=== PATIENT | male | born 1955 | race Caucasian/White ===

== ENCOUNTER 2019-12-13 12:58 | Outpatient (CLI) | payer BC, SELFPAY ==
--- NOTE | ~2019-12-13 | US_ITS ---
EXAMINATION: US abdomen complete DATE: 12/13/2019 13:49 INDICATION: Thrombocytopenia. Hepatitis C. TECHNIQUE: Multiple grayscale and Doppler ultrasound images of the abdomen were obtained. COMPARISON: Ultrasound abdomen 03/13/2015, CT abdomen and pelvis 02/01/2014 FINDINGS: Abdominal aorta is normal in caliber. The visualized portions of the head and body of the p ancreas are normal. The liver demonstrates surface nodularity, consistent with cirrhosis. The gallbla dder is distended, likely secondary to fasting. No gallstones. Gallbladder wall thickening is likely secondary to chronic liver disease. There was no sonographic Albright sign. The common duct is normal a nd measures 6 mm. There is normal flow in main portal vein. The kidneys are normal in size. There is moderate splenomegaly measuring 15.4 cm. IMPRESSION: 1. Cirrhosis of the liver. 2. Moderate splenomegaly, consistent with portal venous hypertension. Reviewed, dictated and finalized at location A.
== END 2019-12-13 12:59 | disposition home or self-care (01) ==
PROVIDERS: PCP Emergency Medicine; Visit Provider Internal Medicine
DX: D69.6 Thrombocytopenia, unspecified (principal); B18.2 Chronic viral hepatitis C; K74.60 Unspecified cirrhosis of liver; R16.1 Splenomegaly, not elsewhere classified
CPT/HCPCS: 76700

== ENCOUNTER 2020-07-14 10:31 | Outpatient (CLI) | payer BC, SELFPAY ==
--- NOTE | ~2020-07-14 | XR_ITS ---
EXAMINATION: XR bone survey comp/metastic EXAM DATE: 07/14/2020 11:36 INDICATION: Hep C w/ coma, chronic; thrombocytopenia, monoclonal gammopathy. TECHNIQUE: Frontal and lateral projections of following regions obtained; right humerus, left humeru s, right forearm, left forearm, right femur, left femur, right tibia, left tibia, lumbar spine, thora cic spine, cervical spine. Lateral projection skull. Frontal chest x-ray. FINDINGS: No evidence of significant sinus opacity or calvarial lesions. There is moderate cervical disc disease and advanced facet arthropathy. No confluent consolidation, pneumothorax or pleural effu leobardo suspected. Cardiomediastinal silhouette is normal. Paraspinal soft tissue is unremarkable. There is moderate symmetric bilateral hip primary osteoarthritis. In the left tibial metaphysis there is approximately 2 cm region with small calcifications, appearanc e is most consistent with an enchondroma. The arms are unremarkable. Pelvis unremarkable. IMPRESSION: Left distal tibial metaphyseal lesion most likely an enchondroma. Consider 3-6 month foll ow-up left tibia exam. Reviewed, dictated and finalized at location A. INSTRUCTOR IMPRESSION: Left distal tibial metaphyseal lesion most likely an enchondroma. C onsider 3-6 month follow-up left tibia exam.
== END 2020-07-14 10:32 | disposition home or self-care (01) ==
PROVIDERS: PCP Emergency Medicine; Visit Provider Internal Medicine
DX: B18.2 Chronic viral hepatitis C (principal); D69.6 Thrombocytopenia, unspecified; D47.2 Monoclonal gammopathy
CPT/HCPCS: 77075

== ENCOUNTER 2020-07-21 13:40 | Outpatient (CLI) | payer BC, SELFPAY | END 2020-07-21 13:41 | disposition home or self-care (01) | PROVIDERS: PCP Emergency Medicine; Visit Provider Emergency Medicine | DX: H93.13 Tinnitus, bilateral (principal) | CPT/HCPCS: 92557; 92567 ==

== ENCOUNTER 2021-03-02 16:36 | Emergency (ER) | payer BC, SELFPAY ==
[2021-03-02 16:40] VITALS: BP 135/79; PULSE 70; RESP 16; TEMP 37.3; O2SAT 100
[2021-03-02 16:45] VITALS: BP 135/79; PULSE 70; RESP 16; TEMP 37.3; O2SAT 100
--- NOTE | 2021-03-02 16:53 | ED.GENADULT ---
HPI - General Adult General Chief complaint: Eye Problems Stated complaint: eye irritation Source: patient Mode of arrival: ambulatory Limitations: no limitations History of Present Illness HPI narrative: Patient is a 65-year-old male who presents to the urgent care via POV for evaluation of a right eye problem that began yesterday. Additionally, he states he has something on his right upper eyelid that is causing discomfort to right eye. Unable to remove it himself via irrigation. Nothing improves symptoms. Blinking increases discomfort. Related Data Home Medications Medication Instructions Recorded Confirmed dextroamphetamine-amphetamine 03/02/21 omeprazole 03/02/21 tramadol mg 03/02/21 Allergies Allergy/AdvReac Type Severity Reaction Status Date / Time No Known Drug Allergies Allergy Unknown Unverified 02/01/14 19:06 Review of Systems Review of Systems: Pertinent negatives injury, fever, chills, sweats, malaise, change in appetite, poor p.o. intake, dizziness, headache, LOC, ear pain/drainage, rhinorrhea, sinus problems, lymphadenopathy, vision changes, dry eyes, eye drainage, eye pain, foreign body sensation, photophobia, chest pain, heart palpitations/murmurs, cough, and shortness of breath. [facility], [facility] Past Medical History Medical History (Updated 03/03/21 @ 00:00 by Background Daemon) ADHD Exam Narrative: GENERAL: Well-appearing, well-nourished, and in no acute distress. HEAD: Normocephalic, atraumatic. No sinus tenderness or facial swelling appreciated. EYES: PERRLA and EOMI. No evidence of swelling or drainage. Periorbital are is without erythema, swelling, pain, and warmth. Right upper eyelid with foreign body that appears to be debris. Left eyelid normal. Bilateral eyes are dry. Bilateral lashes are normal. Bilateral sclera are normal. Bilateral conjunctiva are normal. ENT: Nares clear, no rhinorrhea or epistaxis. Bilateral turbinates without erythema/ swelling. Mucous membranes moist and pink. Uvula is midline without erythema and swelling. No evidence of petechial rash, cobblestoning, lesions, ulcers, erythema, swelling, exudates, peritonsillar abscess, tenting, or drooling. Breath odor and voice normal. NECK: Supple. No Lymphadenopathy or nuchal rigidity appreciated. CHEST: Bilateral lung ashraf are clear to auscultation. No respiratory distress. No evidence of cough or pleuritic cp upon examination. HEART: Regular rate and rhythm. No murmur, gallop, or rub heard. EXTREMITIES: Normal range of motion. No edema. SKIN: Warm, dry, no rash. NEURO: No focal deficits. Alert and oriented x3. Course Vital Signs Vital signs: Vital Signs Temperature 99.1 F 03/02/21 16:40 Pulse Rate 70 03/02/21 16:40 Respiratory Rate 16 03/02/21 16:40 Blood Pressure 135/79 03/02/21 16:40 Pulse Oximetry 100 03/02/21 16:40 Temperature 99.1 F 03/02/21 16:45 Pulse Rate 70 03/02/21 16:45 Respiratory Rate 16 03/02/21 16:45 Blood Pressure 135/79 03/02/21 16:45 Pulse Oximetry 100 03/02/21 16:45 Due to an elevated blood pressure, I had a detailed discussion with the patient and/or guardian regarding the need for follow-up with their primary care provider within the next 3-4 days. Patient verbalized understanding and agreed. Procedures FB Removal Eye Foreign Body #1: Foreign Body Removal Date: 03/02/21 Foreign Body Removal Time: 18:50 Time Out performed: Yes Location: eye (R) Topical anesthetic used: proparacaine Foreign body: other (debris ) Evidence of corneal penetration: No Technique: irrigation Post-procedure medication: ophthalmic antibiotic Patient tolerated procedure: well and no complications Medical Decision Making Differential Diagnosis Differential Diagnosis: Corneal/conjunctival abrasion, globe rupture, conjunctivitis, hordeolum, corneal foreign body, iritis, scleritis, keratitis Medical Records
== END 2021-03-02 16:57 | disposition home or self-care (01) ==
PROVIDERS: Emergency Provider Nurse Practitioner Family; PCP Emergency Medicine
DX: T15.11XA Foreign body in conjunctival sac, right eye, initial encounter (principal); Z79.891 Long term (current) use of opiate analgesic; X58.XXXA Exposure to other specified factors, initial encounter
CPT/HCPCS: 99213; A9270; G0463

== ENCOUNTER 2023-10-05 14:32 | Outpatient (CLI) | payer MEDICARE, SELFPAY ==
--- NOTE | ~2023-10-05 | MR_ITS ---
EXAMINATION: MR orbits face neck wo/w con DATE: 10/05/2023 15:44 INDICATION: Malignant neoplasm of nasopharynx. TECHNIQUE: Magnetic resonance imaging (MRI) of the neck was performed without and with 15 mL MultiHan ce intravenous contrast. COMPARISON: None. FINDINGS: There is mucosal thickening in the paranasal sinuses. There is a left mastoid effusion. The re is a mass involving the left nasopharynx, left pterygopalatine fossa, left recreational director space, and p osterior wall of the oropharynx. There is left high internal jugular chain lymphadenopathy. A evan m ass measures 2.6 x 1.4 cm. Fat stranding in this area is likely secondary to radiation therapy. IMPRESSION: 1. Mass centered in the left pharynx, consistent with primary malignancy. 2. Left high internal jugular chain lymphadenopathy, consistent with metastatic disease. Reviewed, dictated and finalized at location A.
== END 2023-10-05 14:33 ==
LOC: MICIMG 14:34
PROVIDERS: PCP Emergency Medicine; Visit Provider Emergency Medicine
DX: C11.9 Malignant neoplasm of nasopharynx, unspecified (principal)
CPT/HCPCS: 70543; A9577

== ENCOUNTER 2023-10-06 21:38 | Emergency (ER) | payer OTHER, MEDICARE, SELFPAY ==
--- NOTE | ~2023-10-06 | CT_ITS ---
EXAMINATION: CT abdomen pelvis w con DATE: 10/07/2023 01:43 INDICATION: Hematemesis. TECHNIQUE: Computed tomography (CT) of the abdomen and pelvis was performed with 100 mL Omnipaque 350 intravenous contrast. Automated exposure control and iterative reconstruction technique were employe d. The dose-length product was 395.53 mGy-cm. COMPARISON: None. FINDINGS: The visualized portions of the lung bases demonstrate minimal atelectasis. No pleural effus ion. The heart size is normal. No pericardial effusion. Paraesophageal varices are noted. The liver d emonstrates surface nodularity, consistent with cirrhosis. There is a 17 mm hypodense mass with high density material in right hepatic lobe. The gallbladder is normal. There is severe splenomegaly. The pancreas and adrenal glands are normal. There are 2 stones in right kidney measuring up to 4 mm. Ther e is a 2 mm stone in left kidney. There is diverticulosis of the colon without evidence of diverticul itis. The appendix is normal. There is calcified atherosclerosis of the aorta and many of the other a rteries. There is a 3.0 x 1.9 cm cyst in right inguinal region, likely ascites in a hernia. There is mild lumbar spondylosis. IMPRESSION: 1. Cirrhosis of the liver with portal venous hypertension. 2. 17 mm liver mass with high-density material. This finding may be a neoplasm with changes of chemoe mbolization. Correlate with treatment history. Reviewed, dictated and finalized at location A. IMPRESSION: 1. Cirrhosis of the liver with portal venous hypertension. 2. 17 mm liver mass with high-density material. This finding may be a neoplasm with changes of chemoembolization. Correlate with treatment history.
[2023-10-06 21:44] VITALS: BP 108/94; PULSE 70; RESP 16; TEMP 36.6; O2SAT 100
[2023-10-06 22:46] VITALS: BP 144/75; PULSE 62; RESP 16; O2SAT 100
[2023-10-06 23:01] VITALS: BP 139/80; PULSE 68; RESP 20; O2SAT 100
[2023-10-06 23:03] VITALS: BP 139/80; PULSE 65; RESP 14; O2SAT 100
[2023-10-06 23:08] LABS: Basophils Percent Auto 0.3 % (0.2-1.2); Eosinophils Percent Auto 0.3 % (0-4.4); Hematocrit 37.6 % (42.0-52.0); Hemoglobin 12.9 g/dL (14.0-18.0); Immature Granulocyte Absolute 0.01 K/mm3 (0.00-0.031); Immature Granulocyte Percent A 0.1 % (0-0.5); Immature Platelet Fraction Pct 8.7 % (0.9-11.2); Lymphocytes Absolute Auto 0.24 K/mm3 (0.9-3.2); Lymphocytes Percent Auto 3.6 % (18.3-44.2); Mean Corpuscular HGB Conc 34.3 g/dl (32-36); Mean Corpuscular Hemoglobin 33.3 pg (26-34); Mean Corpuscular Volume 97.2 fl (80-100); Mean Platelet Volume 11.5 fl (7.4-10.4); Monocytes Absolute Auto 0.6 K/mm3 (0.1-0.6); Monocytes Percent Auto 9.5 % (2.6-8.5); Neutrophils Absolute Auto 5.8 K/mm3 (1.3-6.7); Neutrophils Percent Auto 86.2 % (45.5-73.1); Platelet Count Result 84 k/mm3 (150-375); Red Blood Count 3.87 M/mm3 (4.6-6.20); Red Cell Distribution Width 12.9 % (11.5-14.5)
[2023-10-06 23:14] LABS: Alanine Aminotransferase 24 U/L (6-50); Alkaline Phosphatase 125 U/L (38-126); Anion Gap 4 mmol/L (4-12); Aspartate Amino Transferase 31 U/L (17-59); Bilirubin,Total 1.6 mg/dL (0.2-1.3); Blood Urea Nitrogen 26 mg/dL (9-20); Calcium 9.4 mg/dL (8.4-10.2); Carbon Dioxide 30 mmol/L (22-30); Chloride 96 mmol/L (98-107); Estimated CRCL calculation 91 ml/min; Estimated Glomerular Filt Rate > 60; Glucose 116 mg/dL (65-110); Lipase 431 U/L (23-300); Potassium 5.1 mmol/L (3.4-5.0); Sodium 130 mmol/L (137-145)
[2023-10-06 23:31] LABS: Anisocytosis 1+; Large Platelets Present; Platelet Clumps Present; Platelet Estimate Decreased (Adequate); Schistocytes None Seen
[2023-10-06 23:32] LABS: White Blood Count 6.8 K/mm3 (4.5-10.0)
[2023-10-07 00:01] VITALS: BP 125/86; PULSE 60; RESP 14; O2SAT 98
--- NOTE | 2023-10-07 00:35 | ED.GENADULT ---
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 Patient says that he had a dark loose bowel movement yesterday. Then today he had 1 episode of dark vomit. patient has history of esophageal varices although his last endoscopy was over a year ago. Patient has no other symptoms at this time. Related Data Home Medications Medication Instructions Recorded Confirmed dextroamphetamine-amphetamine 20 03/02/21 mg tablet omeprazole 20 mg capsule,delayed 03/02/21 release tramadol 50 mg tablet mg 03/02/21 Allergies Allergy/AdvReac Type Severity Reaction Status Date / Time No Known Drug Allergies Allergy Unknown Unknown Verified 10/07/23 00:49 [facility] Past Medical History Medical History ADHD Exam Narrative: APPEARANCE: patient appears older than his stated age Head: atraumatic. EYES: EOMI, NOSE: Atraumatic NECK: Trachea midline RESPIRATORY: No increased rate of breathing Clear to auscultation CARDIOVASCULAR: RRR, is no peripheral edema ABDOMINAL: soft nontender no guarding rebound MUSCULOSKELETAl: No obvious deformities NEURO: Alert. Moving 4/4 extremities SKIN:: Warm, dry. Normal color PSYCHIATRIC: Normal affect Course Vital Signs Vital signs: Vital Signs Temperature 97.9 F 10/06/23 21:44 Pulse Rate 70 10/06/23 21:44 Respiratory Rate 16 10/06/23 21:44 Blood Pressure 108/94 H 10/06/23 21:44 Pulse Oximetry 100 10/06/23 21:44 Oxygen Delivery Room Air 10/06/23 21:44 Temperature 97.9 F 10/06/23 21:44 Pulse Rate 67 10/07/23 04:16 Respiratory Rate 13 10/07/23 04:16 Blood Pressure 139/82 10/07/23 04:16 Pulse Oximetry 100 10/07/23 04:16 Oxygen Delivery Room Air 10/06/23 21:44 Medical Decision Making [facility] Narrative Medical decision making narrative: -Course: 68-year-old male presenting after an episode of emesis at an episode of dark stools yesterday pain patient is currently asymptomatic. Laboratory studies were ordered and repeated in 4 hours. Hemoglobin had a 1 point drop but that is with a expected range after fluid resuscitation. No elevations in BUN which may indicate an upper GI bleed. hemoccult negative. Patient did cough up a small amount blood but I believe this is from his nasopharynx due to his radiation/nasopharyngeal cancer. On re-evaluation patient is resting comfortably and has not had any more vomiting. Vital signs are stable. He is going to [facility] this morning to get his next radiation treatment and has very close follow-up. [facility] for [facility]. 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 -Independent interpretation of studies: hemoglobin 12.9 -> 11.9 after 1 L of fluid Metabolic panel initially showed mild hypokalemia hyponatremia hypochloremia. This resolved after 1 L fluid and Lokelma. The rest the patient's laboratory studies within normal limits. No elevation in BUN that may indicate a GI bleed. CT showed no acute findings. -Interventions: 1 L normal saline, Lokelma -Shared decision making / Disposition: discharge Vital Signs Vital Signs: Vital Signs Temperature 97.9 F 10/06/23 21:44 Pulse Rate 70 10/06/23 21:44 Respiratory Rate 16 10/06/23 21:44 Blood Pressure 108/94 H 10/06/23 21:44 Pulse Oximetry 100 10/06/23 21:44 Oxygen D
[2023-10-07] MEDS: SODIUM ZIRCONIUM CYCLOSILICATE 10 GM POWD.PACK PO (00:44)
[2023-10-07] MEDS: SODIUM CHLORIDE 0.9% IV 1,000 ML 999 ML IV CONT (00:44)
[2023-10-07 00:58] LABS: Appearance Urine Clear (Clear); Bilirubin Urine Negative (Negative); Blood Urine Negative (Negative); Color Urine Yellow (Yellow); Glucose Urine UA Negative (Negative); Ketones Urine Negative (Negative); Leukocyte Esterase Ur Negative LEU/UL (Negative); Nitrate Urine Negative (Negative); Protein Urine Negative (Negative)
[2023-10-07 01:11] LABS: Add Urine Microscopic? NO
[2023-10-07 02:59] VITALS: BP 141/86; PULSE 81; RESP 17; O2SAT 98
[2023-10-07 03:16] VITALS: BP 127/70; PULSE 74; RESP 13; O2SAT 98
[2023-10-07 03:59] LABS: Basophils Percent Auto 0.2 % (0.2-1.2); Eosinophils Percent Auto 0.4 % (0-4.4); Hematocrit 34.4 % (42.0-52.0); Hemoglobin 11.9 g/dL (14.0-18.0); Immature Granulocyte Absolute 0.02 K/mm3 (0.00-0.031); Immature Granulocyte Percent A 0.4 % (0-0.5); Immature Platelet Fraction Pct 7.4 % (0.9-11.2); Lymphocytes Absolute Auto 0.43 K/mm3 (0.9-3.2); Lymphocytes Percent Auto 7.9 % (18.3-44.2); Mean Corpuscular HGB Conc 34.6 g/dl (32-36); Mean Corpuscular Hemoglobin 33.6 pg (26-34); Mean Corpuscular Volume 97.2 fl (80-100); Mean Platelet Volume 11.6 fl (7.4-10.4); Monocytes Absolute Auto 0.5 K/mm3 (0.1-0.6); Monocytes Percent Auto 9.6 % (2.6-8.5); Neutrophils Absolute Auto 4.4 K/mm3 (1.3-6.7); Neutrophils Percent Auto 81.5 % (45.5-73.1); Platelet Count Result 77 k/mm3 (150-375); Red Blood Count 3.54 M/mm3 (4.6-6.20); Red Cell Distribution Width 12.8 % (11.5-14.5); White Blood Count 5.4 K/mm3 (4.5-10.0)
[2023-10-07 04:07] LABS: Anion Gap 6 mmol/L (4-12); Blood Urea Nitrogen 25 mg/dL (9-20); Carbon Dioxide 23 mmol/L (22-30); Chloride 102 mmol/L (98-107); Estimated CRCL calculation 105 ml/min; Estimated Glomerular Filt Rate > 60; Glucose 111 mg/dL (65-110); Sodium 131 mmol/L (137-145)
[2023-10-07 04:16] VITALS: BP 139/82; PULSE 67; RESP 13; O2SAT 100
[2023-10-07 04:16] LABS: Large Platelets Present; Platelet Estimate Decreased (Adequate)
[2023-10-07 04:17] LABS: Anisocytosis 1+; Microcytosis 1+ (NORMAL); Schistocytes None Seen
[2023-10-07 04:55] VITALS: BP 140/94; PULSE 70; RESP 15; O2SAT 98
== END 2023-10-07 05:08 | disposition home or self-care (01) ==
PROVIDERS: Emergency Provider Emergency Medicine; PCP Emergency Medicine
DX: C11.9 Malignant neoplasm of nasopharynx, unspecified (principal); B19.10 Unspecified viral hepatitis B without hepatic coma; K74.60 Unspecified cirrhosis of liver; F90.9 Attention-deficit hyperactivity disorder, unspecified type
CPT/HCPCS: 36415; 74177; 80048; 80053; 81003; 83690; 85025; 85055; 86850; 86900; 86901; 96360; 99284; A9270; J7030; Q9967

== ENCOUNTER 2024-09-26 11:21 | Inpatient (IN) | payer MEDICARE, OTHER, SELFPAY ==
[2024-09-26] VITALS (24 sets, daily range): BP systolic 104–158; BP diastolic 52–95; PULSE 74–177; RESP 13–32; TEMP 36.3–36.9; O2SAT 95–100; BMI 22.4
--- NOTE | ~2024-09-26 | CT_ITS ---
EXAMINATION: CT chest abdomen pelvis w con DATE: 09/26/2024 13:56 CDT INDICATION: Upper GI bleed. Esophageal varices. TECHNIQUE: Computed tomography (CT) of the chest, abdomen, and pelvis was performed with 100 cc Omnip aque 350 intravenous contrast. The dose-length product was 322.73 mGy-cm. Automated exposure control and iterative reconstruction technique were employed. COMPARISON: CT dated 10/07/2023 FINDINGS: CHEST CT: Heart size normal. No thoracic lymphadenopathy. No significant pleural or pericardial effusion. No si gnificant vascular abnormality. There is a 9 mm right middle lobe pleural-based nodule. There are add itional reticulonodular densities in the right middle lobe and lingula which are smaller. There is a 1.4 cm left lower lobe pleural-based nodule. No endobronchial lesions. There is a 7 mm left. Fissural nodule, image 66. No pneumothorax. ABDOMEN/PELVIS CT: There is cirrhosis of the liver. The spleen, pancreas, adrenal glands are unremarkable. There is patc hy hypoperfusion of the kidneys, suspicious for pyelonephritis. Gallbladder is present. Nonobstructiv e bowel gas pattern. There is mild thickening of the proximal small bowel, suspicious for enteritis. No free air or free fluid. Colonic diverticulosis without evidence for diverticulitis. There is mild thoracic and lumbar spondylosis with scoliosis. There are small nonobstructing bilateral renal stones . IMPRESSION: 1. Multiple bilateral pulmonary nodules, largest in the left lower lobe measuring 1.4 cm, suspicious for metastatic disease. Correlate for history of malignancy. 2: Cirrhosis of the liver. 3: Patchy hypoperfusion of the kidneys, suspicious for pyelonephritis. 4: Mild thickening of the proximal spot bowel, suspicious for enteritis. 5: Nonobstructing bilateral nephrolithiasis. Reviewed, dictated and finalized at location A. IMPRESSION: 1. Multiple bilateral pulmonary nodules, largest in the left lower lobe measuri ng 1.4 cm, suspicious for metastatic disease. Correlate for history of malignan cy. 2: Cirrhosis of the liver. 3: Patchy hypoperfusion of the kidneys, suspicious for pyelonephritis. 4: Mild thickening of the proximal spot bowel, suspicious for enteritis. 5: Nonobstructing bilateral nephrolithiasis.
--- NOTE | ~2024-09-26 | US_ITS ---
EXAMINATION:US venous doppler UE RT INDICATION:Right upper extremity pain and swelling TECHNIQUE: Multiple grayscale, color flow and Doppler images of the right upper extremity deep venous systems were obtained and reviewed. COMPARISON:None FINDINGS: The right jugular, subclavian, axillary, brachial, basilic, cephalic, radial and ulnar vein s demonstrate normal respiratory variation, augmentation and compressibility. Color flow is also se en within the right jugular, subclavian, axillary, brachial, basilic, cephalic and radial veins. IMPRESSION: No upper extremity deep venous thrombosis. Reviewed, dictated and finalized at location A.
--- NOTE | 2024-09-26 11:39 | ED_ITS ---
HPI - General Adult General Chief complaint: GI Bleed Stated complaint: black tarry stools, coffee ground emesis Time Seen by Provider: 09/26/24 11:31 History of Present Illness HPI narrative: 69-year-old male with history of nasopharyngeal esophageal cancer presents emergency department for evaluation for abdominal pain, dark tarry stool and coffee-ground emesis. Patient states he began having dark tarry stools approximately 2 days ago. Patient did have onset of nausea vomiting today. Patient does have history of cirrhosis secondary to hepatitis. Patient has not drank alcohol in approximately 15 years. Patient was started on Keytruda recently and family states this is what has triggered his recent GI bleeds. Patient does follow-up at [facility] and did have a recent upper endoscopy approximately 2 weeks ago. Related Data Home Medications ?Medication ?Instructions ?Recorded ?Confirmed ?Last Taken ?Type dextroamphetamine-amphetamine 20 20 mg PO PRN 03/02/21 09/26/24 Unknown History mg tablet omeprazole 20 mg capsule,delayed 40 mg PO QID 03/02/21 09/26/24 09/21/24 09:00 History release 40 mg tramadol 50 mg tablet 50 mg PO PRN 03/02/21 09/26/24 Unknown History acetaminophen 325 mg tablet (Pain 650 mg PO Q6H PRN pain 09/26/24 09/26/24 09/24/24 10:00 History Reliever (acetaminophen)) 650 mg furosemide 20 mg tablet (Lasix) 20 mg PO DAILY 09/26/24 09/26/24 09/24/24 21:50 History 20 mg hydroxyzine HCl 10 mg tablet 10 mg PO TID PRN itching 09/26/24 09/26/24 09/24/24 21:50 History 10 mg loperamide 2 mg capsule 2 mg PO QID PRN loose stool 09/26/24 09/26/24 09/25/24 13:00 History (Anti-Diarrheal (loperamide)) ondansetron 8 mg disintegrating 8 mg PO TID 09/26/24 09/26/24 09/24/24 14:00 History tablet 8 mg pembrolizumab 25 mg/mL intravenous 200 mg IV ONCE 09/26/24 09/26/24 07/13/24 08:58 History solution (Keytruda) 200 mg prednisone 20 mg tablet 60 mg PO DAILY 09/26/24 09/26/24 09/22/24 08:00 History 10 mg propranolol 10 mg tablet 10 mg PO Q12H 09/26/24 09/26/24 09/24/24 08:00 History 10 mg Allergies Allergy/AdvReac Type Severity Reaction Status Date / Time No Known Drug Allergies Allergy Unknown Unknown Verified 09/26/24 11:51 Review of Systems 2 Review of Systems: All systems reviewed & are unremarkable except as noted in HPI and below PMFSH Past Medical History Medical History Anemia Hepatitis C Liver cancer s/p chemo Alcohol abuse, in remission Cessation 15 years ago as of 2024 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 Esophageal varices ADHD GI bleed Social History Social History Smoking status: Former smoker Alcohol intake: former Substance use: current Substance use type: former substance user and marijuana Other substance usage details: a little bit of everything out there Marijuana capsule, suppository, oil Do You Feel Safe in your Home?: Yes Lack of Transportation: No Lack of Food: Never True Current Housing: I Have Housing Concerned About Future Housing: No Difficulty Paying Gas/Electric Bills: No Difficulty Paying for Meds: No Currently Unemployed: No Education: Trade/Vocational Certificate Difficulty w/ Childcare or Family Care: No Spiritual care concerns: No Exam 2 Narrative: APPEARANCE: Ill appearing HEAD: normocephalic, atraumatic. EYES: PERRLA/EOMI, conjunctivae clear. NOSE: Normal no drainage EARS:TMS clear with good light reflex. THROAT: Pharynx clear, no exudate. NECK: Supple. No adenopathy, no masses. RESPIRATORY: Airway patent, respirations nonlabored. Clear to auscultation bilaterally, no rales, rhonchi, wheezing. CARDIOVASCULAR: Regular rate and rhythm without murmurs rubs or gallops. ABDOMINAL: Soft, nontender, nondistended, normal bowel sounds MUSCULOSKELETAL: Moves all extremities. Strength/ROM intact, No edema, No calf tenderness. NEURO: Alert. Cranial nerves II through XII intact. Good gait. Good coordination SKIN: Warm, dry. Normal Color Course Vital Signs Vital signs: Vital Signs Temperature 97.8 F 09/26/24 11:24 Pulse Rate 150 H 09/26/24 11:24 Respiratory Rate 14 09/26/24 11:24 Blood Pressure 144/95 H 09/26/24 11:24 Pulse Oximetry 96 09/26/24 11:24 Oxygen Delivery Room Air 09/26/24 11:24 Temperature 98.2 F 09/26/24 16:25 Pulse Rate 90 09/26/24 16: Respiratory Rate 20 09/26/24 16:25 Blood Pressure 115/70 09/26/24 16:25 Pulse Oximetry 99 09/26/24 16:25 Oxygen Delivery Room Air 09/26/24 11:24 Oxygen Flow Rate 2 09/26/24 13:34 Medical Decision Making MDM Narrative Medical decision making narrative: 69-year-old male presents emergency department for evaluation for upper GI bleed and tachycardia. Patient arrived in AFib with RVR patient has no prior history of atrial fibrillation. Patient was started on 2 L of IV fluids and given a Cardizem bolus and started on Cardizem infusion. Patient was still having persistent tachycardia and agitation. Patient was treated with a dose of 5 mg of IV Lopressor and did convert back to normal sinus rhythm. Due to patient having persistent nausea and agitation he was also treated with 4 mg of IV Zofran, 10 mg IV Reglan, 4 mg of IV morphine and 1 mg of IV Ativan. Ultimately patient did become more rested. states the patient does have significant history of anxiety. Prior to going to the floor patient was back in normal sinus rhythm but without tachycardia. Patient was in no distress and patient was normotensive. Patient did have a hemoglobin of 7.3 and was treated with 2 units of packed red blood cells. These were started and completed prior to the patient being admitted to the floor. Patient was also started on octreotide bolus and infusion, along with famotidine and Protonix. Gi was consulted and patient was admitted to the IMU. Differential Diagnosis Differential Diagnosis: Upper GI bleed, lower GI bleed, atrial fibrillation, dehydration, anxiety, colitis, diverticulitis, enteritis Vital Signs Vital Signs: Vital Signs Temperature 97.8 F 09/26/24 11:24 Pulse Rate 150 H 09/26/24 11:24 Respiratory Rate 14 09/26/24 11:24 Blood Pressure 144/95 H 09/26/24 11:24 Pulse Oximetry 96 09/26/24 11:24 Oxygen Delivery Room Air 09/26/24 11:24 Temperature 98.2 F 09/26/24 16:25 Pulse Rate 90 09/26/24 16:25 Respiratory Rate 20 09/26/24 16:25 Blood Pressure 115/70 09/26/24 16:25 Pulse Oximetry 99 09/26/24 16:25 Oxygen Delivery Room Air 09/26/24 11:24 Oxygen Flow Rate 2 09/26/24 13:34 Lab Data Lab results reviewed: Yes I reviewed the patient's lab results. 09/26/24 11:39 09/26/24 11:39 Labs: Lab Results 09/26/24 09/26/24 09/26/24 Range/Units 11:38 11:39 11:41 WBC 15.3 H (4.5-10.0) K/mm3 RBC 2.48 L (4.6-6.20) M/mm3 Hgb 7.3 L D (14.0-18.0) g/dL Hct 23.0 L (42.0-52.0) % MCV 92.7 (80-100) fl MCH 29.4 (26-34) pg MCHC 31.7 L (32-36) g/dl RDW 15.5 H (11.5-14.5) % Plt Count 241 D (150-375) k/mm3 MPV 11.1 H (7.4-10.4) fl Immature Gran % (Auto) 1.2 H (0-0.5) % Neut % (Auto) 84.4 H (45.5-73.1) % Lymph % (Auto) 7.5 L (18.3-44.2) % [place] % (Auto) 6.8 (2.6-8.5) % Eos % (Auto) 0.0 (0-4.4) % Baso % (Auto) 0.1 L (0.2-1.2) % Lymph # (Auto) 1.14 (0.9-3.2) K/mm3 [place] # (Auto) 1.0 H (0.1-0.6) K/mm3 Eos # (Auto) 0.0 (0-0.3) K/mm3 Baso # (Auto) 0.0 (0.0-0.1) K/mm3 Abs Immat Gran (auto) 0.19 H (0.00-0.031) K/mm3 Absolute Neuts (auto) 12.9 H (1.3-6.7) K/mm3 Absolute Nucleated RBC 0.000 (0.0-0.012) K/mm3 Nucleated RBC % 0.0 (0.0-0.2) % PT 17.2 H (11.1-14.7) Seconds INR 1.4 APTT 24.4 (22.3-36.8) Seconds Methemoglobin (0-1.5) %THb Sodium 132 L (137-145) mmol/L Potassium 4.4 (3.4-5.0) mmol/L Chloride 98 (98-107) mmol/L Carbon Dioxide 12 L (22-30) mmol/L Anion Gap 22 H (4-12) mmol/L BUN 64 H D (9-20) mg/dL Creatinine 0.97 (0.7-1.3) mg/dL Estim Creat Clear Calc 57 ml/min Estimated GFR > 60 (59 - ) Glucose 175 H (65-110) mg/dL Lactic Acid (0.7-2.0) mmol/L Calcium 9.2 (8.4-10.2) mg/dL Magnesium 1.8 (1.6-2.3) mg/dL Total Bilirubin 0.8 (0.2-1.3) mg/dL AST 34 (17-59) U/L ALT 36 (6-50) U/L Alkaline Phosphatase 73 (38-126) U/L Total Protein 6.0 L (6.3-8.2) g/dL Albumin 3.6 (3.5-5.1) g/dL Blood Type Antibody Screen Crossmatch 09/26/24 09/26/24 Range/Units 11:48 11:53 WBC (4.5-10.0) K/mm3 RBC (4.6-6.20) M/mm3 Hgb (14.0-18.0) g/dL Hct (42.0-52.0) % MCV (80-100) fl MCH (26-34) pg MCHC (32-36) g/dl RDW (11.5-14.5) % Plt Count (150-375) k/mm3 MPV (7.4-10.4) fl Immature Gran % (Auto) (0-0.5) % Neut % (Auto) (45.5-73.1) % Lymph % (Auto) (18.3-44.2) % [place] % (Auto) (2.6-8.5) % Eos % (Auto) (0-4.4) % Baso % (Auto) (0.2-1.2) % Lymph # (Auto) (0.9-3.2) K/mm3 [place] # (Auto) (0.1-0.6) K/mm3 Eos # (Auto) (0-0.3) K/mm3 Baso # (Auto) (0.0-0.1) K/mm3 Abs Immat Gran (auto) (0.00-0.031) K/mm3 Absolute Neuts (auto) (1.3-6.7) K/mm3 Absolute Nucleated RBC (0.0-0.012) K/mm3 Nucleated RBC % (0.0-0.2) % PT (11.1-14.7) Seconds INR APTT (22.3-36.8) Seconds Methemoglobin 0.1 (0-1.5) %THb Sodium (137-145) mmol/L Potassium (3.4-5.0) mmol/L Chloride (98-107) mmol/L Carbon Dioxide (22-30) mmol/L Anion Gap (4-12) mmol/L BUN (9-20) mg/dL Creatinine (0.7-1.3) mg/dL Estim Creat Clear Calc ml/min Estimated GFR (59 - ) Glucose (65-110) mg/dL Lactic Acid 11.7 H* (0.7-2.0) mmol/L Calcium (8.4-10.2) mg/dL Magnesium (1.6-2.3) mg/dL Total Bilirubin (0.2-1.3) mg/dL AST (17-59) U/L ALT (6-50) U/L Alkaline Phosphatase (38-126) U/L Total Protein (6.3-8.2) g/dL Albumin (3.5-5.1) g/dL Blood Type O Positive Antibody Screen Negative Crossmatch See Detail ABG Data ABG results: 09/26/24 11:48 Puncture Site Right radial ABG pH 7.522 H* ABG pCO2 17.8 L* ABG pO2 108.9 H ABG PO2/FiO2 Ratio 5.19 ABG HCO3 14.3 L ABG O2 Saturation 98.5 ABG O2 Content 10.7 L ABG Base Excess -7.4 A-a Gradient 19.5 Oxyhemoglobin 96.9 Carboxyhemoglobin 1.3 Reduced Hemoglobin 1.7 Total Hemoglobin 7.7 L* O2 Delivery Device Room air O2 Liters/Min Not Reportable FiO2 21 Imaging Data Radiologist's impression: Impressions Chest/Abdomen/Pelvis CT 09/26/24 13:56 IMPRESSION: 1. Multiple bilateral pulmonary nodules, largest in the left lower lobe measuring 1.4 cm, suspicious for metastatic disease. Correlate for history of malignancy. 2: Cirrhosis of the liver. 3: Patchy hypoperfusion of the kidneys, suspicious for pyelonephritis. 4: Mild thickening of the proximal spot bowel, suspicious for enteritis. 5: Nonobstructing bilateral nephrolithiasis. Critical Care Time Critical Care Time Critical Care Time: Yes Total Critical Care Time: 45 Discharge Plan Discharge Clinical Impression: Anemia Qualifiers: Anemia type: unspecified type Qualified Code(s): D64.9 - Anemia, unspecified GI bleed Qualifiers: GI bleed type/associated pathology: unspecified gastrointestinal hemorrhage type Qualified Code(s): K92.2 - Gastrointestinal hemorrhage, unspecified Cirrhosis Qualifiers: Hepatic cirrhosis type: unspecified hepatic cirrhosis Ascites presence: without ascites Qualified Code(s): K74.60 - Unspecified cirrhosis of liver Patient Disposition: Still a Patient Condition: Serious
[2024-09-26] MEDS: dilTIAZem HCl INJ 25 MG/5 ML VIAL 10 MG IV PUSH ×2 (11:53→12:23)
[2024-09-26] MEDS: SODIUM CHLORIDE 0.9% IV 1,000 ML 999 ML IV CONT (11:53)
[2024-09-26 11:56] LABS: Basophils Percent Auto 0.1 % (0.2-1.2); Hemoglobin 7.3 g/dL (14.0-18.0); Immature Granulocyte Absolute 0.19 K/mm3 (0.00-0.031); Immature Granulocyte Percent A 1.2 % (0-0.5); Lymphocytes Absolute Auto 1.14 K/mm3 (0.9-3.2); Lymphocytes Percent Auto 7.5 % (18.3-44.2); Mean Corpuscular HGB Conc 31.7 g/dl (32-36); Mean Corpuscular Hemoglobin 29.4 pg (26-34); Mean Corpuscular Volume 92.7 fl (80-100); Mean Platelet Volume 11.1 fl (7.4-10.4); Monocytes Percent Auto 6.8 % (2.6-8.5); Neutrophils Absolute Auto 12.9 K/mm3 (1.3-6.7); Neutrophils Percent Auto 84.4 % (45.5-73.1); Platelet Count Result 241 k/mm3 (150-375); Red Blood Count 2.48 M/mm3 (4.6-6.20); Red Cell Distribution Width 15.5 % (11.5-14.5); White Blood Count 15.3 K/mm3 (4.5-10.0)
[2024-09-26] MEDS: OCTREOTIDE ACETATE 50 MCG/ML VIAL IV PUSH (11:56)
[2024-09-26 12:02] LABS: Alveolar/Arterial O2 Gradient 19.5 mmHg; Base Excess ABG -7.4 mEq/l (+/-2.0); Carboxyhemoglobin 1.3 % THb (0-2.0); Fractional Inspired Oxygen 21 %; HCO3 ABG 14.3 mEq/l (22.0-26.0); Methemoglobin ABG 0.1 %THb (0-1.5); Oxygen Content ABG 10.7 %vol (16.0-22.0); Oxygen Saturation ABG 98.5 % (95.0-100.0); Oxyhemoglobin 96.9 % THb (90.0-100.0); PO2 ABG 108.9 mmHg (80.0-100.0); PO2 FiO2 Ratio Arterial Blood 5.19 %; Reduced Hemoglobin 1.7 %THb (0-5.0)
[2024-09-26 12:04] LABS: Albumin Level 3.6 g/dL (3.5-5.1); Alkaline Phosphatase 73 U/L (38-126); Anion Gap 22 mmol/L (4-12); Aspartate Amino Transferase 34 U/L (17-59); Bilirubin,Total 0.8 mg/dL (0.2-1.3); Blood Urea Nitrogen 64 mg/dL (9-20); Calcium 9.2 mg/dL (8.4-10.2); Carbon Dioxide 12 mmol/L (22-30); Chloride 98 mmol/L (98-107); Estimated CRCL calculation 57 ml/min; Estimated Glomerular Filt Rate > 60; Glucose 175 mg/dL (65-110); Potassium 4.4 mmol/L (3.4-5.0); Sodium 132 mmol/L (137-145)
[2024-09-26] MEDS: PANTOPRAZOLE SODIUM IV 40 MG VIAL 80 MG IV PUSH (12:04)
[2024-09-26] MEDS: OCTREOTIDE ACETATE 500 MCG in SODIUM CHLORIDE 0.9% IV 99 ML 10 MCG IV CONT ×2 (12:04→21:35)
[2024-09-26] MEDS: FAMOTIDINE 20 MG/2 ML VIAL IV PUSH (12:04)
[2024-09-26 12:05] LABS: PCO2 ABG 17.8 mmHg (35.0-45.0); pH ABG 7.522 (7.350-7.450)
[2024-09-26 12:06] LABS: Device ROOM AIR; Modified Allen's Test Pass; Site Drawn RIGHT RADIAL; Total Hemoglobin 7.7 g/dL (12.0-18.0)
[2024-09-26 12:22] LABS: INR 1.4; Partial Thromboplastin Time 24.4 Seconds (22.3-36.8); Prothrombin Time 17.2 Seconds (11.1-14.7)
[2024-09-26] MEDS: dilTIAZem 100 MG/100 ML 100 MG/100 ML BAG IV CONT (12:24)
[2024-09-26 12:31] LABS: Lactic Acid Reflex 11.7 mmol/L (0.7-2.0)
[2024-09-26 12:37] LABS: Alanine Aminotransferase 36 U/L (6-50)
--- NOTE | 2024-09-26 12:46 | PC.NURSE ---
Pt to CT scan via stretcher at this time
--- OUTSIDE RECORDS SUMMARY | 2024-09-26 13:06 | XMS_ITS | Clinical Summary ---
Author Organization [facility] [place] Address [address] [place] [address] Care Team Providers Care Laserist Name Role Phone Derrell Barrow MD Primary Care Provider [phone] Source Comments [facility] [place],non-owned Affiliates and Associated Physician Practices is amultiple site organization consisting of ambulatory clinics and hospital sitesin [place], [place], [place] and [place]. This disclosure is being madepursuant to the Care Everywhere program and may not contain all information available regarding this patient. Last updated 18.[facility] [place] Allergies No known active allergies Medications * Be aware that medications may not be up to date on this document. Alwaysverify current medications with the patient. Medication Sig Dispensed Refills Start Date End Date Status omeprazole (PRILOSEC) 20 MG capsule TK 1 C PO QD AC 12/04/2019 Active traMADol (ULTRAM) 50 MG tablet TK 1 T PO BID PRN 11/07/2019 Active Milk Thistle 1000 MG CAPS Active PAPAYA PO Active amphetamine-dextroamphe tamine (ADDERALL) 30 MG tablet Take 1 tablet by mouth 04/18/2020 Active TURMERIC PO Take by mouth once daily Active Naproxen Sodium (ALEVE) 220 MG Take by mouth once daily as needed Active LECITHIN CONCENTRATE PO A ctive Active Problems Problem Noted Date Diagnosed Date Cirrhosis of liver without ascites 07/25/2020 Chronic hepatitis C without hepatic coma 020 Overview (01/28/2020): Hepatitis B core antibody is non reactive Genotype 1a fibroscan 01/28/2020 Date of Exam: 01/28/2020 LSM, kPa: 34.1 CAP 207 Generalized anxiety disorder 11/05/2014 Chronic pain 10/07/2014 Essential hypertension 03/25/2014 Gastroesophageal reflux disease 02/15/2014 Abdominal pain 02/04/2014 Blood in urine 02/04/2014 Contracture of tendon sheath 01/08/2014 Child attention deficit disorder 12/06/2013 Multiple joint pain 12/06/2013 Resolved Problems Problem Noted Date Diagnosed Date Resolved Date Acute sinusitis 01/08/2014 01/15/2020 Family History Medical History Relation Name Comments CVA Father Cancer - Breast Mother Relation Name Status Comments Father Mother Social History Tobacco Use Types Packs/Day Years Used Date Smoking Tobacco: Never Smokeless Tobacco: Never Alcohol Use Standard Drinks/Week Comments Not Currently 0 (1 standard drink = 0.6 oz pur e alcohol) on rare occasion Sex and Gender Information Value Date Recorded Sex Assigned at Not on file Gender Identity Not on file Sexual Orientation Not on file Last Filed Vital Signs Vital Sign Reading Time Taken Comments Blood Pressure 151/89 07/25/2020 12:13 PM RESOURCE PROTECTION SPECIALIST Pulse 86 07/25/2020 12:13 PM RESOURCE PROTECTION SPECIALIST Temperature 36.2 C (97.2 F) 07/25/2020 12:13 PM RESOURCE PROTECTION SPECIALIST Respiratory Rate 9 06/04/2020 2:53 PM RESOURCE PROTECTION SPECIALIST Oxygen Saturation 97% 06/04/2020 2:53 PM RESOURCE PROTECTION SPECIALIST Inhaled Oxygen Concentration - - Weight 78.1 kg (172 lb 3.2 oz) 07/25/2020 12:13 PM RESOURCE PROTECTION SPECIALIST Height 182.9 cm (6') 07/25/2020 12:13 PM RESOURCE PROTECTION SPECIALIST Body Mass Index 23.35 07/25/2020 12:13 PM RESOURCE PROTECTION SPECIALIST Plan of Treatment Health Maintenance Due Date Last Done Comments COLOGUARD (AGES 45-75) - COLON CA SCREENING 1955 CT COLONOGRAPHY - COLON CA SCREENING 1955 FIT - COLON CA SCREENING 1955 FLEX SIG - COLON CA SCREENING 1955 DTAP/TDAP/TD VACCINES (1 - Tdap) 09/05/1975 PNEUMOCOCCAL VACCINE 50+ (1 of 2 - PCV) 09/05/1975 ZOSTER VACCINE (1 of 2) 2006 HEPATITIS B VACCINE (1 of 3 - Risk 3-dose series) 2016 Respiratory Syncytial Virus (RSV) Vaccine Pt: or over 60 yrs (1 - Risk 60-74 years 1-dose series) 2016 COVID-19 VACCINE ( season) 2024 10/09/2020, 09/11/2020 INFLUENZA VACCINE (#1) 2024 , 05/13/2020, 03/26/2020 DEPRESSION SCREENING 06/27/2024 LIPID TESTING 11/05/2024 11/06/2019 COLON MONITORING 06/04/2030 06/04/2020, 06/04/2020 COLONOSCOPY - COLON CA SCREENING 06/04/2030 06/04/2020, 06/04/2020 Colorectal Cancer Screening 06/04/2030 HEPATITIS C SCREENING Completed 07/25/2020 , 04/23/2020, 03/28/2020, Additional history exists HIB VACCINE Aged Out No longer eligi ble based on patient's age to complete this topic HPV VACCINE Aged Out No longer eligi ble based on patient's age to complete this topic MENINGOCOCCAL (Group B) VACCINE SHARED DECISION-MAKING Aged Out No longer eligible based on patient's age to complete this topic MENINGOCOCCAL GROUPS A/C/Y/W VACCINE Aged Out No longer eligible based on patient's age to complete this topic Goals Goal Patient Goal Type Associated Problems Recent Progress Patient-Stated? Author Medication Management General On track( 021 12:20 PM RESOURCE PROTECTION SPECIALIST) Viktoriya Seymour, RN Note: Expected end date: ongoing Interventions: Take all medications as prescribed Procedures Procedure Name Priority Date/Time Associated Diagnosis Comments HEPATITIS C RNA QUANTITATIVE Routine 07/25/2020 1:10 PM RESOURCE PROTECTION SPECIALIST Cirrhosis of liver without ascites, unspecified hepatic cirrhosis type ENDOSCOPY, COLON, SCREENING Routine 06/04/2020 1:49 PM RESOURCE PROTECTION SPECIALIST LIPID PROFILE (EXTERAL RESULT ENTRY) Routine 11/06/2019 from Last 3 Months or Most Recently Relevant to Health Maintenance Results * HEPATITIS C RNA QUANTITATIVE (07/25/2020 1:10 PM RESOURCE PROTECTION SPECIALIST) Hepatitis C RNA PCR, Interp Not Detected Not Detected 07/31/2020 11:09 AM RESOURCE PROTECTION SPECIALIST [facility] Blood BLOOD SPECIMEN / Unknown Lab Venipuncture / Unknown 07/25/2020 1:10 PM RESOURCE PROTECTION SPECIALIST 07/25/2020 4:12 PM RESOURCE PROTECTION SPECIALIST Narrative [facility] - 07/31/2020 11:09 AM RESOURCE PROTECTION SPECIALIST The Hepatitis C viral (HCV) RNA analysis utilized a serum sample, real-time reverse canvas repairer PCR, and is reported as Not Detected, Detected (<12 IU/mL), Quantity (IU/mL) or >100,000,000 IU/mL. The limit of quantitation of the assay is 12 IU/mL (100% of samples with this HCV RNA level were detected). The linear range is from 12 IU/mL to 100,000,000 IU/mL. Values less than 12 IU/mL are reported as Detected (<12 IU/mL). Values greater than 100,000,000 IU/mL are reported as > 100,000,000 IU/mL. The detection/quantitation of HCV RNA in serum is based on the isolation of HCV RNA with reverse canvas repairer of genomic HCV RNA followed by real-time PCR in the presence of an unrelated RNA internal control. The internal control ensures that RNA is isolated, and that no general significant inhibitors of the RT-PCR process are present. The analysis was performed using a U.S. FDA approved test methodology ([employer] Real Time HCV). Tahmina Tyler MACHINE RIVETER-TILE FITTER LAB - CHEMIS TRY ORDERABLES [facility] [address] [place] [address], [facility] [phone] * ENDOSCOPY, COLON, SCREENING (06/04/2020 1:49 PM RESOURCE PROTECTION SPECIALIST) Report Endoscopy POC Endoscopy Department Report _ Patient Name: Ron Coy Procedure Date: 06/04/2020 1:49 PM Date of : 1955 Classification: Outpatient Gender: Male Ethnicity: Not or Race: White _ Providers: Frances Tejada MD Referring MD: Derrell Barrow (Referring MD) Procedure: Colonoscopy Indications: High risk colon cancer surveillance: Personal history of colonic polyps Medications: Monitored Anesthesia Care Description of Procedure: Pre-Anesthesia Assessment: - Prior to the procedure, a History and Physical was performed, and patient medications and allergies were reviewed. The patient's tolerance of previous anesthesia was also reviewed. The risks and benefits of the procedure and the sedation options and risks were discussed with the patient. All questions were answered, and informed consent was obtained. Prior Anticoagulants: The patient has taken no previous anticoagulant or antiplatelet agents. ASA Grade Assessment: III - A patient with severe systemic disease. After reviewing the risks and benefits, the patient was deemed in satisfactory condition to undergo the procedure. - Prior Aspirin/ NSAID therapy: The patient has taken no previous aspirin or NSAID medications. After I obtained informed consent, the scope was passed under direct vision. Throughout the procedure, the patient's blood pressure, pulse, and oxygen saturations were monitored continuously. The [id number] was introduced through the anus and advanced to the cecum, identified by appendiceal orifice and ileocecal valve. The colonoscopy was performed without difficulty. The patient tolerated the procedure well. The quality of the bowel preparation was evaluated using the BBPS (Etna Bowel Preparation Scale) with scores of: Right Colon = 3, Transverse Colon = 3 and Left Colon = 3 (entire mucosa seen well with no residual staining, small fragments of stool or opaque liquid). The total BBPS score equals 9. The ileocecal valve, appendiceal orifice, and rectum were photographed. Findings: The perianal and digital rectal examinations were normal. A few medium-sized angiodysplastic lesions without bleeding were found in the ascending colon and in the cecum. Multiple small and large-mouthed diverticula were found in the entire colon. No additional abnormalities were found on retroflexion. Estimated Blood Loss: Estimated blood loss: none. Complications: No immediate complications. Impression: - A few non-bleeding colonic angiodysplastic lesions. - Diverticulosis in the entire examined colon. - No specimens collected. Recommendation: - Patient has a contact number available for emergencies. The signs and symptoms of potential delayed complications were discussed with the patient. Return to normal activities tomorrow. Written discharge instructions were provided to the patient. - Resume previous diet. - Continue present medications. - Repeat colonoscopy in 10 years for surveillance. - Return to GI clinic as previously scheduled. Attending Participation: I personally performed the entire procedure. I was present and participated during the entire procedure, including non-gutierrez portions. Procedure Code(s): --- Professional --- G0105, Colorectal cancer screening; colonoscopy on individual at high risk Diagnosis Code(s): --- Professional --- Z86.010, Personal history of colonic polyps K55.20, Angiodysplasia of colon without hemorrhage K57.30, Diverticulosis of large intestine without perforation or abscess without bleeding CPT copyright 2019 [employer]. All rights reserved. The codes documented in this report are preliminary and upon risk consultant review may be revised to meet current compliance requirements. ____ Frances Tejada MD 06/04/2020 2:19:46 PM This report has been signed electronically. Note Initiated On: 06/04/2020 1:49 PM Number of Addenda: [address] [address] [facility] [employer] 06/04/2020 1:49 PM RESOURCE PROTECTION SPECIALIST Frances Tejada MD GI PROCEDURE ORDER [facility] * (ABNORMAL) LIPID PROFILE (EXTERAL RESULT ENTRY) (11/06/2019) Cholesterol (EXTERNAL RESULT) 181 0 - 200 mg/dL Triglycerides (EXTERNAL RESULT) 94 0 - 150 mg/dL HDL (EXTERNAL RESULT) 61 >=40 mg/dL LDL (EXTERNAL RESULT) 101(A) 0 - 100 mg/dL VLDL (EXTERNAL RESULT) Chol HDL Ratio (External Result) 3.0 0.0 - 5.0 Blood BLOOD SPECIMEN / Unknown 11/06/2019 Historical Provider LAB - CHEMISTRY O RDERABLES from Last 3 Months or Most Recently Relevant to Health Maintenance Care Teams Laserist Relationship Specialty Start Date End Date Derrell Barrow MD PCP - General Family Medicine 10/18/19
--- OUTSIDE RECORDS SUMMARY | 2024-09-26 13:06 | XMS_ITS | Referral Summary ---
Author Organization [facility] [address] [facility] Address [address] [place] [address] Care Team Providers Care Game Operator Name Role Phone Derrell Barrow MD Primary Care Provider + [phone] Long Peters MD Unavailable [phone] Allergies No known active allergies Medications omeprazole (PriLOSEC) 40 mg capsuleIndications :Treatment of Non-Bleeding Gastric Disorder Take 1 capsule (40 mg total) by mouth nightly take 1 capsule by oral route every day before a meal Active dextroamphetamine- amphetamine (ADDERALL) 30 mg tabletIndications: Attention-Deficit Hyperactivity Disorder Take 1 tablet (30 mg total) by mouth every morning Active UNABLE TO FIND Medical marijuana-2 joints daily Active UNABLE TO FIND Take by mouth 4 (four) times a day Med Name: Rich whitmore oil Active traMADoL (ULTRAM) 50 mg tabletIndications: Pain Take 1 tablet (50 mg total) by mouth every 6 (six) hours as needed for pain 10 tablet 3 Active propranoloL (INDERAL) 10 mg tablet 1 tablet (10 mg total) 3 Active Active Problems Problem Noted Date Diagnosed Date 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 Likely related to liver disease. Slightly down from 93 previously. Monitor as outpt Hepatocellular carcinoma 08/05/2022 Assessment & Plan (02/09/2023 4:55 PM CDT): To sessions of chemo-embolization with follow-up MRI in early March,. In light of his excellent quality of life, he is not enthusiastic about a liver transplant. I explained he would continue to be at risk for recurrence of the cancer due to the cirrhosis. He would like to delay going back on the active waiting list until the results of the next MRI are available. I told him I thought this was reasonable. He will return in 6 months or when clinically indicated. 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 Reportedly, he has had follow-up [facility]'s [facility]. if this has not been done, further assessment may be needed. Chronic pain 10/07/2014 Gastroesophageal reflux disease 02/15/2014 Immunizations Immunization Administration Dates Next Due Influenza, Quadrivalent, Hig h Dose, Preservative Free, Intrr 04/08/2023 Influenza, Quadrivalent, Spl it, Preservative Free, Intramuscular 06/04/2022,03/26/2020 Influenza, Unspecified 04/08/2023,2021,03/27/2021,05/13,04/10/2015 Pneumococcal Polysaccharide PPV23 02/09/2021 Tdap 02/09/2021 ZOSTER LIVE 04/10/2015 ZOSTER Recombinant 07/04/2020,03/26/2020 Social History Tobacco Use Types Packs/Day Years Used Date Smoking Tobacco: Former Cigarettes Q uit: 1980 Passive Smoke Exposure: Never Smokeless Tobacco: Never Tobacco Cessation:Counseling Given: Not Answered AUDIT-C Answer Date Recorded Q1: How often do you have a drink containing alcohol? Never 08/18/2023 Q2: How many drinks containi ng alcohol do you have on a typical day when you are drinking? Patient does not drink Q3: How often do you have si x or more drinks on one occasion? Never 08/18/2023 PHQ-2 Answer Date Recorded PHQ-2 Total Score (If total score is 3 or more points, staff should administer the PHQ-9) 0 08/05/2022 Personal Safety Answer Date Recorded Have you ever been in or are you currently in a harmful physical or emotional relationship or is someone making you feel afraid or unsafe? Denies 12/01/2022 Sex and Gender Information Value Date Recorded Sex Assigned at Not on file Legal Sex Male 11:44 AM NUISANCE ANIMAL DAMAGE CONTROL AGENT Gender Identity Male 07/13/2022 7:13 PM NUISANCE ANIMAL DAMAGE CONTROL AGENT Sexual Orientation Straight 07/13/2022 7: 13 PM NUISANCE ANIMAL DAMAGE CONTROL AGENT Last Filed Vital Signs Vital Sign Reading Time Taken Comments Blood Pressure 143/88 05/17/2024 2:49 PM NUISANCE ANIMAL DAMAGE CONTROL AGENT 1st BP reading 147/87 Pulse 66 05/17/2024 2:46 PM NUISANCE ANIMAL DAMAGE CONTROL AGENT Temperature 36.3 C (97.4 F) 05/17/2024 2:46 PM NUISANCE ANIMAL DAMAGE CONTROL AGENT Respiratory Rate 16 05/17/2024 2:46 PM NUISANCE ANIMAL DAMAGE CONTROL AGENT Oxygen Saturation 100% 05/17/2024 2:5 0 PM NUISANCE ANIMAL DAMAGE CONTROL AGENT Inhaled Oxygen Concentration - - Weight 72 kg (158 lb 12.8 oz) 05/17/2024 2:46 PM NUISANCE ANIMAL DAMAGE CONTROL AGENT Height 182.9 cm (6' 0.01 ) 05/17/2024 2 :46 PM NUISANCE ANIMAL DAMAGE CONTROL AGENT Body Mass Index 21.53 05/17/2024 2:46 PM NUISANCE ANIMAL DAMAGE CONTROL AGENT Plan of Treatment Scheduled Procedures Name Priority Associated Diagnoses Date/Ti me TRANSPLANT LIVER Hepatocellular carcinoma (HCC) Medical Devices Implanted Type Area Perioperative Educator Device Identifier Shelf Expiration Date Model / Serial / Lot [employer] Embosphere Prefill Saline Syringe Compressible Nonaggregate [id number] - [id number] Implanted:Qty: 1 on 08/05/2022 at [facility] [employer] 04/18/2025 [id number] / / [id number] Dainela Angio-Seal Vip 6fr Closere Device [id number] - [id number] Implanted:Qty: 1 on 08/05/2022 at [facility] [employer] [facility] 04/26/2023 [id number] / / [id number] [facility] [employer] Embosphere Prefill Saline Syringe Compressible Nonaggregate S220 - [id number] Implanted:Qty: 1 on 12/01/2022 at [facility] [employer] [id number] [facility] / / [facility] [employer] [facility] Angio-Seal Vip 6fr Closere Device [id number] - [id number] Implanted:Qty: 1 on 12/01/2022 at [facility] [employer] [facility] 06/26/2023 [id number] / / [id number] Procedures Procedure Name Priority Date/Time Associated Diagnosis Comments PSA SCREEN Routine 07/15/2022 5:00 PM NUISANCE ANIMAL DAMAGE CONTROL AGENT Acute hepatitis C virus infection without hepatic coma Hepatocellular carcinoma (HCC) HEPATITIS C RNA, QUANTITATIVE, PCR Routine 07/15/2022 4:37 PM NUISANCE ANIMAL DAMAGE CONTROL AGENT Acute hepatitis C virus infection without hepatic coma Hepatocellular carcinoma (HCC) from Last 3 Months or Most Recently Relevant to Health Maintenance Results * PSA screen (07/15/2022 5:00 PM NUISANCE ANIMAL DAMAGE CONTROL AGENT) PSA-Total 0.22 <=5.40 ng/mL ROOPA CUNHA Comment: Interpretive Data AGE SEX REFERENCE INTERVAL 0 minutes-150 years Female None 0 minutes-49 years Male None 50-59 years Male 0-3.90 60-69 years Male 0-5.40 70-79 years Male 0-6.20 80-150 years Male 0-6.20 The Vera PSA Total assay procedure was used. Results from different manufacturers or methods may not be comparable. Serial testing should be performed using the same method. Current interpretive data last revised 21. Blood 07/15/2022 5:00 PM NUISANCE ANIMAL DAMAGE CONTROL AGENT 07/15/2022 5:45 PM NUISANCE ANIMAL DAMAGE CONTROL AGENT us Kavin Rios MD LAB BLOOD ORDERABLES F inal Result ROOPA CUNHA [facility] Department [place] [address] * Hepatitis C (HCV) RNA PCR, quantitative (07/15/2022 4:37 PM NUISANCE ANIMAL DAMAGE CONTROL AGENT) [facility] HCV RNA result Not Detected ROOPA CUNHA Comment: The quantifiable range of this assay is 15 IU/mL to 100,000,000 IU/mL (1.18 log IU/mL to 8.00 log IU/mL). Testing was performed by the KIMBERLY 6800 HCV Test ([employer] Testing performed at [facility] Current Interpretive Data was last revised on 2021 Blood 07/15/2022 4:37 PM NUISANCE ANIMAL DAMAGE CONTROL AGENT 07/15/2022 5:49 PM NUISANCE ANIMAL DAMAGE CONTROL AGENT us Kavin Rios MD LAB MICROBIOLOGY - GEN ERAL ORDERABLES Final Result [facility] Department [place] [address] from Last 3 Months or Most Recently Relevant to Health Maintenance Insurance MEDICARE [facility] MEDICARE [facility] Advance Directives For more information, please contact: [phone] * Full Code (Latest Code Status on File) Date Activated Date Inactivated Comments 12/01/2022 10:37 AM 12/02/2022 1:56 PM * Full Code Date Activated Date Inactivated Comments 12/01/2022 10:37 AM 12/01/2022 10:37 AM * Full Code Date Activated Date Inactivated Comments 08/05/2022 11:47 AM 08/06/2022 5:08 PM Care Teams Game Operator Relationship Specialty Start Date End Date Derrell Barrow MD [address] [place] [address] [place] [address] PCP - General Family Medicine 08/11/22 Long Peters MD [address] [place] [address] Consulting Physician Gastroenterology 05/11/24
--- OUTSIDE RECORDS SUMMARY | 2024-09-26 13:06 | XMS_ITS ---
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 Likely related to liver [...] he has had [facility]. if this has not been done, further assessment may be needed. Chronic pain 10/07/2014 Gastroesophageal reflux disease 02/15/2014 Current Treatment and Therapy Plans No current plan information found. Past Treatment and Therapy Plans No past plan information found. Radiation Treatments * Course [id number] 09/26/2023 - 10/06/2023 Treatment Period Energy Fraction Dose Fractions Total Dose Plans Planned HN 09/26/2023 - 10/06/2023 212 6 / 6,996 Reference Points Delivered DPV_HN 09/26/2023 - 10/06/2023 1,272 Lifetime Dose Tracking * Chemical Lifetime Dose Automatic Entry Manual Entr y idarubicin 5.208 mg/m2 (10 mg) 5.208 mg/m2 (10 mg) 0 mg/m2 (0 mg) Fluoro Time 81.6 minutes 81.6 minutes 0 minutes doxorubicin isotoxic equivalent (Please manually verify calculation) 26.042 mg/m2 (50 mg) 26.042 mg/m2 (50 mg) 0 mg/m2 (0 mg) Air kerma at the reference point (Ka,r) 2,222 mGy 2,222 mGy 0 mGy DLP 456 mGycm 456 mGycm 0 mGycm
--- OUTSIDE RECORDS SUMMARY | 2024-09-26 13:06 | XMS_ITS | Clinical Summary ---
Author Organization [facility] Address [address] [facility] [address] [place] [address] Phone Care Team Providers Care Barrow Worker Helper Name Role Phone Derrell Barrow Primary Care Provider [phone] Allergies No known active allergies Medications Homeopathic Products (THERAWORX RELIEF) Liquid by Apply externally route. Active cromolyn (OPTICROM) 4 % Solution 0 Active omeprazole (PRILOSEC) 20 MG CAPSULE DELAYED RELEASE TK 1 C PO QD AC 0 Active traMADol (ULTRAM) 50 MG Tablet TK 1 T PO BID PRN 0 Active Milk Thistle 1000 MG Capsule Take by mouth. Active PAPAYA PO Take by mouth. Activ e amphetamine-dex troamphetamine (ADDERALL) 30 MG Tablet TAKE 1 TABLET BY MOUTH EVERY MORNING 0 Active Turmeric (QC TUMERIC COMPLEX PO) Take by mouth. Activ e Naproxen Sodium 220 MG Capsule Take by mouth. Active Immunizations Immunization Administration Dates Next Due Covid-19, Mrna, Lnp-s, Pf, 3 0 Mcg/0.3 Ml Dose (FOCUS Trainr) 10/09/2020,09/11/2020 Influenza Vaccine, Quadrivalent, PF 03/26/2020 Zoster Vaccine Recombinant 07/04/2020,07/01/2020 ,03/26/2020 Family History Medical History Relation Name Comments Stroke Father Cancer Mother Relation Name Status Comments Father Mother Social History Tobacco Use Types Packs/Day Years Used Date Smoking Tobacco: Former Cigarettes Q uit: 12/02/1984 Smokeless Tobacco: Never Alcohol Use Standard Drinks/Week Comments Yes 1 (1 standard drink = 0.6 oz pur e alcohol) once a month PHQ-2 Answer Date Recorded Total Score - Questions 1-9 0 12/25 Sex and Gender Information Value Date Recorded Sex Assigned at Not on file Legal Sex Male 12:09 AM CDT Gender Identity Not on file Sexual Orientation Not on file Last Filed Vital Signs Vital Sign Reading Time Taken Comments Blood Pressure 130/80 01/12/2021 1:06 PM CDT Pulse 68 01/12/2021 1:06 PM CDT Temperature 37.7 C (99.9 F) 01/12/2021 1:06 PM CDT Respiratory Rate 18 01/12/2021 1:06 PM CDT Oxygen Saturation 97% 01/12/2021 1:06 PM CDT Inhaled Oxygen Concentration - - Weight 77.7 kg (171 lb 4.8 oz) 01/12/2021 1:06 P M CDT Height 182.9 cm (6') 01/12/2021 1:06 PM CDT Body Mass Index 23.23 01/12/2021 1:06 PM CDT Plan of Treatment Health Maintenance Due Date Last Done Comments TdaP Immunization 1955 Colonoscopy 2001 Colorectal Cancer Screening 2001 Cologuard 2006 Immunochemical Fecal Occult Blood 2006 Pneumococcal Immunization (5 0+ years) (1 of 1 - PCV) 2006 Influenza Immunization (#1) 2024 03/26/2020 SARS-COV-2 Immunization ( season) 2024 06/11/2021, 10/09/2020, 09/11/2020 Respiratory Syncytial Virus (RSV) Immunization (Adult) (1 - 1-dose 75+ series) 09/05/2031 Zoster Immunization Completed 07/04/2020, 07/01/2020, 03/26/2020 Hepatitis B Immunization Aged Out No longer eligible based on patient's age to complete this topic Meningococcal Immunization (ACWY) Aged Out No longer eligible b ased on patient's age to complete this topic Rotavirus Immunization Aged Out No lo nger eligible based on patient's age to complete this topic Care Teams Barrow Worker Helper Relationship Specialty Start Date End Date Barrow Derrell [address] [place] [address] PCP - General Family Medicine 11/13/19
--- OUTSIDE RECORDS SUMMARY | 2024-09-26 13:06 | XMS_ITS | Clinical Summary ---
Author Organization [facility] Address [facility] [place] [address] Care Team Providers Care Conveyor Installer Name Role Phone Unavailable Primary Care Provider Unavailabl e Social History Tobacco Use Types Packs/Day Years Used Date Smoking Tobacco: Never Assessed Sex and Gender Information Value Date Recorded Sex Assigned at Not on file Legal Sex Male 6:08 PM CDT Gender Identity Not on file Sexual Orientation Not on file Last Filed Vital Signs Vital Sign Reading Time Taken Comments Blood Pressure 120/70 12/03/2015 9:53 AM CDT Pulse 70 12/03/2015 9:53 AM CDT Temperature - - Respiratory Rate - - Oxygen Saturation - - Inhaled Oxygen Concentration - - Weight 79.4 kg (175 lb) 12/03/2015 9:53 AM CDT Height 182.9 cm (6') 12/03/2015 9:53 AM CDT Body Mass Index 23.73 12/03/2015 9:53 AM CDT Plan of Treatment Health Maintenance Due Date Last Done Comments Colorectal Cancer Screening Colonoscopy (10 Years) 1955 Hepatitis C 1974 DTaP, Tdap and Td Vaccines ( 1 - Tdap) 09/05/1975 Zoster Vaccines (1 of 2) 2006 Pneumococcal Vaccine: 65+ Ye ars (1 of 1 - PCV) 2021 COVID-19 Vaccine ( - 2023-2 5 season) 2024 RSV Immunization or 60+ Years (1 - 1-dose 75+ series) 09/05/2031 Meningococcal B Vaccine Aged Out No l onger eligible based on patient's age to complete this topic Meningococcal Vaccine Aged Out No paula carito eligible based on patient's age to complete this topic RSV Immunizations Under 20 Months Aged Out No longer eligible based on patient's age to complete this topic
--- OUTSIDE RECORDS SUMMARY | 2024-09-26 13:06 | XMS_ITS | Clinical Summary ---
Author Organization [facility] [address] [facility] Address [address] [place] [address] Care Team Providers Care Farm Machine Tender Name Role Phone Derrell Barrow MD Primary Care Provider [phone] Long Peters MD Unavailable [phone] Allergies No known active allergies Medications [...] 08/06/2022 Assessment & Plan (08/06/2022 11:49 AM SWEATER DESIGNER): Plt count 70. Likely related to liver [...] he has had follow-up EGD's at the [facility]. if this has not been done, further assessment may be needed. Chronic pain 10/07/2014 Gastroesophageal reflux disease 02/15/2014 Immunizations Immunization Administration Dates Next Due Influenza, Quadrivalent, Hig h Dose, Preservative Free, Intrr 04/08/2023 Influenza, Quadrivalent, Spl it, Preservative Free, Intramuscular 06/04/2022,03/26/2020 Influenza, Unspecified 04/08/2023,2021,03/27/2021,05/13,04/10/2015 Pneumococcal Polysaccharide PPV23 02/09/2021 Tdap 02/09/2021 ZOSTER LIVE 04/10/2015 ZOSTER Recombinant 07/04/2020,03/26/2020 Surgical History Surgery Date Site/Laterality Comments EMBOLIZATION ORGAN ISCHEMIA OR INFARCTION 08/05/2022 N/A ESOPHAGOGASTRODUODENOSCOPY 06/27/2019 - 06/26/2020 COLONOSCOPY 2021 HAND TENDON SURGERY Left EMBOLIZATION ORGAN ISCHEMIA OR INFARCTION 12/01/2022 N/A Medical History Medical History Date Comments Hepatitis C Hepatocellular carcinoma (HCC) Esophageal varices (HCC) ADD (attention deficit disorder) MGUS (monoclonal gammopathy of unknown significa nce) Thrombocytopenia Family History Medical History Relation Name Comments Stroke Father Anesthesia problems Neg Hx Relation Name Status Comments Father Social History Tobacco Use Types Packs/Day Years [...] on file Legal Sex Male 11:44 AM SWEATER DESIGNER Gender Identity Male 07/13/2022 7:13 PM SWEATER DESIGNER Sexual Orientation Straight 07/13/2022 7: 13 PM SWEATER DESIGNER Obstetrics History Last Filed Vital Signs Vital Sign Reading Time Taken Comments Blood Pressure 143/88 05/17/2024 2:49 PM SWEATER DESIGNER 1st BP reading 147/87 Pulse 66 05/17/2024 2:46 PM SWEATER DESIGNER Temperature 36.3 C (97.4 F) 05/17/2024 2:46 PM SWEATER DESIGNER Respiratory Rate 16 05/17/2024 2:46 PM SWEATER DESIGNER Oxygen Saturation 100% 05/17/2024 2:5 0 PM SWEATER DESIGNER Inhaled Oxygen Concentration - - Weight 72 kg (158 lb 12.8 oz) 05/17/2024 2:46 PM SWEATER DESIGNER Height 182.9 cm (6' 0.01 ) 05/17/2024 2 :46 PM SWEATER DESIGNER Body Mass Index 21.53 05/17/2024 2:46 PM SWEATER DESIGNER Plan of Treatment Scheduled Procedures Name Priority Associated Diagnoses Date/Ti me TRANSPLANT LIVER Hepatocellular carcinoma (HCC) Health Maintenance Due Date Last Done Comments Colon Cancer Screening-Colonoscopy 1955 Abdominal Aortic Aneurysm (A AA) Screen 2021 Well Visit 65+ 2021 Pneumococcal vaccine 65+ (2 of 2 - PCV) 02/09/2022 02/09/2021 Depression Screening 08/05/2023 08/05/2022, 08/05/19 Covid-19 Vaccine (6 - 2023-2 5 season) 2024 04/08/2023, 06/04/2022, 06/11/2021, Additional history exists Prostate Cancer Screening-PSA 07/15/2024 07/15/2022 Fall Risk Assessment 08/18/2024 08/18/2023, 12/03/19 23 DTaP/Tdap/Td Vaccine (2 - Td or Tdap) 02/09/2031 02/09/2021 Zoster Vaccine Completed 07/04/2020, 02/27, 04/10/2015 Hepatitis B Screening Completed 07/15/2022 Influenza Vaccine Completed 03/21/2024, , 04/08/2023, Additional history exists Hepatitis C Screening Completed 04/18/2024 , 04/17/2024, 04/17/2024, Additional history exists Medical Devices Implanted Type Area Mobile Application Architect Device Identifier Shelf Expiration Date Model / Serial / Lot [employer] Private Prefill Saline Syringe Compressible Nonaggregate S220gh - [id number] Implanted:Qty: 1 on 08/05/2022 at [facility] [employer] 04/18/2025 [id number] / / [id number] MicroTransponder Angio-Seal Vip 6fr Closere Device [id number] - [id number] Implanted:Qty: 1 on 08/05/2022 at [facility] [employer] 04/26/2023 [id number] / / [id number] [employer] Embosphere Prefill Saline Syringe Compressible Nonaggregate S220gh - [id number] Implanted:Qty: 1 on 12/01/2022 at [facility] [employer] [id number] S220GH / / MicroTransponder Angio-Seal Vip 6fr Closere Device [id number] - [id number] Implanted:Qty: 1 on 12/01/2022 at [facility] [employer] Daniela 06/26/2023 [id number] / / [id number] Procedures Procedure Name Priority Date/Time Associated Diagnosis Comments PSA SCREEN Routine 07/15/2022 5:00 PM SWEATER DESIGNER Acute hepatitis C virus infection without hepatic coma Hepatocellular carcinoma (HCC) HEPATITIS C RNA, QUANTITATIVE, PCR Routine 07/15/2022 4:37 PM SWEATER DESIGNER Acute hepatitis C virus infection without hepatic coma Hepatocellular carcinoma (HCC) from Last 3 Months or Most Recently Relevant to Health Maintenance Results * PSA screen (07/15/2022 5:00 PM SWEATER DESIGNER) PSA-Total 0.22 <=5.40 ng/mL ROOPA CUNHA Comment: [...] last revised 21. Blood 07/15/2022 5:00 PM SWEATER DESIGNER 07/15/2022 5:45 PM SWEATER DESIGNER Kavin Rios MD LAB BLOOD ORDERABLES F inal Result ROOPA CUNHA [facility] Department [place] [address] * Hepatitis C (HCV) RNA PCR, quantitative (07/15/2022 4:37 PM SWEATER DESIGNER) Pathologist [facility] HCV RNA result Not Detected ROOPA CUNHA Comment: The quantifiable range of this assay is 15 IU/mL to 100,000,000 IU/mL (1.18 log IU/mL to 8.00 log IU/mL). Testing was performed by the [employer] 6800 HCV Test ([employer] Testing performed at [facility] Current Interpretive Data was last revised on 2021 Blood 07/15/2022 4:37 PM SWEATER DESIGNER 07/15/2022 5:49 PM SWEATER DESIGNER Kavin Rios MD LAB MICROBIOLOGY - GEN ERAL ORDERABLES Final Result [facility] Department [place] [address] from Last 3 Months or Most Recently Relevant to Health Maintenance Insurance MEDICARE [facility] IDFL MEDICARE [facility] Address: [address] [address] [place] [address] [facility] Advance Directives For more information, please contact: [phone] * Full Code (Latest Code Status on File) Date Activated Date Inactivated Comments 12/01/2022 10:37 AM 12/02/2022 1:56 PM * Full Code Date Activated Date Inactivated Comments 12/01/2022 10:37 AM 12/01/2022 10:37 AM * Full Code Date Activated Date Inactivated Comments 08/05/2022 11:47 AM 08/06/2022 5:08 PM Care Teams Farm Machine Tender Relationship Specialty Start Date End Date Derrell Barrow MD [address] [address] PCP - General Family Medicine 08/11/22 Long Peters MD [address] [place] [address] Consulting Physician Gastroenterology 05/11/24
[2024-09-26] MEDS: MORPHINE SULFATE (*CRX) 4 MG/ML INJ IV PUSH (13:24)
[2024-09-26] MEDS: ONDANSETRON INJ 4 MG/2 ML VIAL IV PUSH (13:25)
[2024-09-26] MEDS: LORazepam INJ (*CRX) 2 MG/ML VIAL 1 MG IV PUSH (13:26)
[2024-09-26] MEDS: diphenhydrAMINE HCl INJ 50 MG/ML VIAL IV PUSH (13:39)
[2024-09-26] MEDS: METOPROLOL TARTRATE INJ 5 MG/5 ML VIAL IV PUSH ×2 (13:40→14:30)
[2024-09-26] MEDS: SODIUM CHLORIDE 0.9% IV 250 ML 30 ML IV CONT (13:47)
[2024-09-26] MEDS: METOCLOPRAMIDE HCL INJ 10 MG/2 ML VIAL IV PUSH (13:47)
[2024-09-26] MEDS: TUBING, BLOOD SET 1 EACH XX (13:47)
--- NOTE | 2024-09-26 13:55 | ECG_ITS ---
Test Date: 2024-09-26 11:34:00 Measurements Intervals [place] Rate: 136 P: 0 [place]: 0 QRS: 61 QRSD: 69 T: 85 QT: 311 QTc: 469 Interpretive Statements SINUS TACHYCARDIA ATRIAL COUPLET AND ATRIAL AND VENTRICULAR PREMATURE COMPLEXES NONSPECIFIC ST & T-WAVE ABNORMALITY- DIFFUSE LEADS ABNORMAL ECG No previous ECG available for comparison Electronically Signed On 09-26-2024 15:11:06 CDT by Adithya Morrow D.O.
[2024-09-26 14:02] LABS: Reflex Lactic Acid Yes or No Add Lactic
[2024-09-26] MEDS: cefTRIAXone 2 GM/NS 100 ML 2 GM/100 ML BAG IVPB (14:04)
--- NOTE | 2024-09-26 14:20 | P.HP_ITS ---
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 The patient presents here from home via EMS on 09/26 for further evaluation of possible GI bleed. He reports onset of dark tarry stools yesterday. Then developed nausea and vomiting with a coffee-ground appearance today. He reports accompanying agitation, pallor, fatigue, dizziness, shortness of breath, and upper abdominal pain (has since resolved). He denies fever, chills, or body aches. He has a history of GI bleeds and esophageal varices. He is not currently on anticoagulation. 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 Less PET scan 6 weeks ago, does not believe he has any other known metastases. He receives his care through the [facility]. Per , who provided majority of the following history due to patient condition, the patient had started immunotherapy (Keytruda) in June 2024 as treatment for the nasopharyngeal cancer. However, 2-3 weeks later he developed dark tarry stools. The Keytruda was discontinued as it was believed this may have been cause for the GI bleed. Patient also has previously underwent rad iation for the OR RN cancer, did not tolerate. Then, approximately 2-3 weeks ago he had a 2nd GI bleed. During this episode he had both dark tarry stools and hematemesis. He was admitted to the [facility] and underwent an EGD, 2 varices banded. He has a history of 1 prior banding in the summer of 2023. His reports the varices were inflamed and they were banded prophylactically. Initial VS at presentation: 97.8? F, HR 150, RR 14, 144/95, and 96% on RA. ED workup showed: WBC 15.3, hemoglobin 7.3 (11.9 on 10/07/2023), INR 1.4, ABG showed pH 7.5-2/CO2 17.8/O2 108.9/HC03 14.3, sodium 132, creatinine 0.97 and GFR >60, lactic 11.7. CT chest/abdomen/pelvis showed multiple bilateral pulmonary nodules largest in the left lower lobe measuring 1.4 cm suspicious for metastatic disease, cirrhosis of the liver, patchy hypo perfusion of the kidney suspicious for pyelonephritis, mild thickening at the proximal small bowel suspicious for enteritis, and nonobstructing bilateral nephrolithiasis. Review of Systems Review of Systems: All systems reviewed & are unremarkable except as noted in HPI and below (Limited, patient condition) 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 Esophageal varices ADHD GI bleed Social History Social History Smoking status: Former smoker Alcohol intake: former Substance use: current Substance use type: former substance user and marijuana Other substance usage details: a little bit of everything out there Marijuana capsule, suppository, oil Do You Feel Safe in your Home?: Yes Lack of Transportation: No Lack of Food: Never True Current Housing: I Have Housing Concerned About Future Housing: No Difficulty Paying Gas/Electric Bills: No Difficulty Paying for Meds: No Currently Unemployed: No Education: Trade/Vocational Certificate Difficulty w/ Childcare or Family Care: No Spiritual care concerns: No Meds Home Medications and Allergies Home Medications ?Medication ?Instructions ?Recorded ?Confirmed ?Type dextroamphetamine-amphetamine 20 20 mg PO PRN 03/02/21 09/26/24 History mg tablet omeprazole 20 mg capsule,delayed 40 mg PO QID 03/02/21 09/26/24 History release tramadol 50 mg tablet 50 mg PO PRN 03/02/21 09/26/24 History acetaminophen 325 mg tablet (Pain 650 mg PO Q6H PRN pain 09/26/24 09/26/24 History Reliever (acetaminophen)) furosemide 20 mg tablet (Lasix) 20 mg PO DAILY 09/26/24 09/26/24 History hydroxyzine HCl 10 mg tablet 10 mg PO TID PRN itching 09/26/24 09/26/24 History loperamide 2 mg capsule 2 mg PO QID PRN loose stool 09/26/24 09/26/24 History (Anti-Diarrheal (loperamide)) ondansetron 8 mg disintegrating 8 mg PO TID 09/26/24 09/26/24 History tablet pembrolizumab 25 mg/mL intravenous 200 mg IV ONCE 09/26/24 09/26/24 History solution (Keytruda) prednisone 20 mg tablet 60 mg PO DAILY 09/26/24 09/26/24 History propranolol 10 mg tablet 10 mg PO Q12H 09/26/24 09/26/24 History Allergies Allergy/AdvReac Type Severity Reaction Status Date / Time No Known Drug Allergies Allergy Unknown Unknown Verified 09/26/24 11:51 Vital Signs Vital Signs - 24 hr 09/26/24 11:24 09/26/24 12:10 09/26/24 12:24 Temperature 97.8 F Pulse Rate 150 H 114 H 106 H Respiratory Rate 14 20 Blood Pressure 144/95 H 130/87 147/70 H Pulse Oximetry 96 95 Oxygen Delivery Room Air Oxygen Flow Rate 09/26/24 13:12 09/26/24 13:27 09/26/24 13:34 Temperature Pulse Rate 151 H 149 H 177 H Respiratory Rate 24 H 32 H Blood Pressure 133/80 133/80 Pulse Oximetry Oxygen Delivery Oxygen Flow Rate 2 09/26/24 13:40 09/26/24 13:48 09/26/24 13:49 Temperature Pulse Rate 160 H 112 H 110 H Respiratory Rate 22 H Blood Pressure 116/74 116/74 Pulse Oximetry Oxygen Delivery Oxygen Flow Rate 09/26/24 13:51 09/26/24 14:00 09/26/24 14:07 Temperature 97.6 F 97.7 F Pulse Rate 112 H 116 H 112 H Respiratory Rate 17 20 Blood Pressure 116/74 116/74 158/87 H Pulse Oximetry 95 97 Oxygen Delivery Oxygen Flow Rate Exam Const: General: comfortable and no acute distress Other: , male, frail, ill-appearing, +pallor HENMT: Face/Nose/Sinus: Normal nares present Mouth: Yes dry mucous membranes Eyes: General: appearance normal, both eyes and all related structures Sclera: sclerae normal Pupils: Equal, round and reactive pupils present EOM: EOMs intact bilaterally Resp: Effort & Inspection: normal respiratory effort Auscultation: clear to auscultation bilaterally Cardio: Rate: regular rate Rhythm: regular rhythm Other: S1-S2 present without murmur, rub, ectopy GI: Other: Abdomen soft, nondistended. Normoactive bowel sounds in all quadrants. Profuse tenderness in the upper quadrants. No hepatomegaly or splenomegaly appreciated. Skin: General skin exam: no rashes or lesions noted Wounds: no wounds Other: +pallor Neuro: Speech: normal speech Motor exam (neuro): 5/5 motor strength present throughout Sensory Exam: normal sensation Other: A&O x3, intermittent confusion. Extrem: General: normal to inspection Psych: Mental Status: mental status grossly normal Affect: normal affect Other: Fair insight and judgment at present, pleasant. H&P: Results Labs Labs: Short CBC 09/26/24 Range/Units 11:39 WBC 15.3 H (4.5-10.0) K/mm3 Hgb 7.3 L D (14.0-18.0) g/dL Hct 23.0 L (42.0-52.0) % Plt Count 241 D (150-375) k/mm3 BMP 09/26/24 11:39 Sodium 132 L Potassium 4.4 Chloride 98 Carbon Dioxide 12 L BUN 64 H D Creatinine 0.97 Glucose 175 H Calcium 9.2 Liver Function 09/26/24 Range/Units 11:39 Total Bilirubin 0.8 (0.2-1.3) mg/dL AST 34 (17-59) U/L ALT 36 (6-50) U/L Alkaline Phosphatase 73 (38-126) U/L Albumin 3.6 (3.5-5.1) g/dL Assessment and Plan Assessment and plan (1) GI bleed: Qualifiers: GI bleed type/associated pathology: unspecified gastrointestinal hemorrhage type Qualified Code(s): K92.2 - Gastrointestinal hemorrhage, unspecified Code(s): K92.2 - Gastrointestinal hemorrhage, unspecified Status: Acute Assessment and Plan: - CT chest/abdomen/pelvis: 1. Multiple bilateral pulmonary nodules, largest in the left lower lobe measuring 1.4 cm, suspicious for metastatic disease. Correlate for history of malignancy. 2: Cirrhosis of the liver. 3: Patchy hypoperfusion of the kidneys, suspicious for pyelonephritis. 4: Mild thickening of the proximal spot bowel, suspicious for enteritis. 5: Nonobstructing bilateral nephrolithiasis. - Hx of esophageal varices and GI bleed, 3 episodes since Jun (today being third) - trend H&H - stool occult/FABIOLA positive - started on ceftriaxone 2G Q24, continue - GI consulted, Ross HALEY provided the following recs: EGD tomorrow HBsAg, anti HCV Consider Carvedilol starting dose 6.25 mg qam after stabilization and definitive diagnosis of source of bleeding (preferred beta-sarah to prevent portal hypertensive bleeding/delay further cirrhotic complications) - continue octreotide, famotidine, pantoprazole - monitor hemodynamic stability - NPO for EGD tomorrow, 09/27 (2) Anemia: Qualifiers: Anemia type: unspecified type Qualified Code(s): D64.9 - Anemia, unspecified Code(s): D64.9 - Anemia, unspecified Status: Acute Assessment and Plan: - Hgb 7.3, previously 11.9 on 10/07/2023 - acute on chronic, secondary to GI bleed - check iron, TIBC, ferritin - transfuse if <7 given abnormal vitals and patient condition (restless, agitated in ED) the p atient was transfused 2 PRBC, will recheck 1 hour post-transfusion - monitor H&H (3) Cirrhosis: Qualifiers: Hepatic cirrhosis type: unspecified hepatic cirrhosis Ascites presence: without ascites Qualified Code(s): K74.60 - Unspecified cirrhosis of liver Code(s): K74.60 - Unspecified cirrhosis of liver Status: Acute Assessment and Plan: - GI consulted, Ross HALEY. see the above recommendations. - continue propranolol, may need to be transitioned to carvedilol based off GI recommendation. Plan for stabilization first. Plan Diet: NPO GI Prophylaxis: Pantoprazole, famotidine DVT Prophylaxis: SCDs Lines: Peripheral Code Status: Full code Quality VTE Prophylaxis VTE prophylaxis: mechanical ordered Hospitalist [facility] Advance Care Plan I have confirmed that the patient's Advanced Care Plan is present, code status is documented, or surrogate decision maker is listed in patient medical record.: Yes Medication Reconciliation I have utilized all available resources to obtain, update and review the patients current medications (includes all prescriptions, OTC, herbals, cannabis, and nutritional supplements).: Yes
[2024-09-26 14:37] LABS: Magnesium 1.8 mg/dL (1.6-2.3)
[2024-09-26 17:12] LABS: Lactic Acid 11.8 mmol/L (0.7-2.0)
--- NOTE | 2024-09-26 17:13 | P.CONGI_ITS ---
Assessment and Plan Assessment and plan (1) GI bleed: Code(s): K92.2 - Gastrointestinal hemorrhage, unspecified Status: Acute Assessment and Plan: The patient presents with acute on chronic anemia, evidenced by a significantly low hemoglobin level without hemodynamic instability. While the current GI may not be massive, the differential diagnosis includes minor variceal bleeding, post-endoscopic variceal ligation ulcers, peptic ulcer disease and portal hypertensive gastropathy. An EGD will be performed tomorrow afternoon. The patient's synthetic liver function is relatively preserved, with a MELD 3.0 score of 13. Following endoscopic evaluation for definitive diagnosis, carvedilol, the preferred beta-sarah, should be initiated to prevent portal hypertensive bleeding and delay further cirrhotic complications, mainly ascites. Will continue Octreotide infusion, Pantoprazole IV and antibiotic (Ceftriaxone) as per guidelines for UGI bleeding in cirrhotic patients. Plan - EGD tomorrow - HBsAg, anti HCV - Consider Carvedilol starting dose 6.25 mg qam after stabilization and defintive diagnosis of source of bleeding GI Consult Note Consult date/time: 09/26/24 17:13 Reason for consult: Upper gastrointestinal bleeding. HPI: Ron Coy, a 69-year-old male with a remote history of alcohol abuse (cessation approximately 15 years ago) and hepatitis C, presented with melena for 24 hours followed by coffee-ground emesis. 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 His vital signs have remained stable. Notable admission labs include: WBC 15.3 ,hemoglobin 7.3 , BUN 64 , creatinine 0.87, albumin 3.6., INR 1.4, bilirubin 0.8 , and sodium [address] scan of the chest and abdomen revealed multiple bilateral pulmonary nodules suspicious for metastatic disease and a cirrhotic liver without ascites. The patient reports no history of encephalopathy, jaundice, or ascites; his primary complication has been variceal bleeding. Review of Systems 2 Review of Systems: All systems reviewed & are unremarkable except as noted in HPI and below [facility] Past Medical History Medical History (Updated 09/26/24 @ 17:18 by Juan Ramon Hawkins MD) Alcohol abuse, in remission Cessation 15 years ago as of 2024 Cirrhosis Esophageal varices ADHD GI bleed Social History Social History Smoking status: Former smoker Alcohol intake: former Substance use: current Substance use type: former substance user and marijuana Other substance usage details: a little bit of everything out there Marijuana capsule, suppository, oil Do You Feel Safe in your Home?: Yes Lack of Transportation: No Lack of Food: Never True Current Housing: I Have Housing Concerned About Future Housing: No Difficulty Paying Gas/Electric Bills: No Difficulty Paying for Meds: No Currently Unemployed: No Education: Trade/Vocational Certificate Difficulty w/ Childcare or Family Care: No Spiritual care concerns: No Meds Home Medications and Allergies Home Medications ?Medication ?Instructions ?Recorded ?Confirmed ?Type dextroamphetamine-amphetamine 20 20 mg PO PRN 03/02/21 09/26/24 History mg tablet omeprazole 20 mg capsule,delayed 40 mg PO QID 03/02/21 09/26/24 History release tramadol 50 mg tablet 50 mg PO PRN 03/02/21 09/26/24 History acetaminophen 325 mg tablet (Pain 650 mg PO Q6H PRN pain 09/26/24 09/26/24 History Reliever (acetaminophen)) furosemide 20 mg tablet (Lasix) 20 mg PO DAILY 09/26/24 09/26/24 History hydroxyzine HCl 10 mg tablet 10 mg PO TID PRN itching 09/26/24 09/26/24 History loperamide 2 mg capsule 2 mg PO QID PRN loose stool 09/26/24 09/26/24 History (Anti-Diarrheal (loperamide)) ondansetron 8 mg disintegrating 8 mg PO TID 09/26/24 09/26/24 History tablet pembrolizumab 25 mg/mL intravenous 200 mg IV ONCE 09/26/24 09/26/24 History solution (Keytruda) prednisone 20 mg tablet 60 mg PO DAILY 09/26/24 09/26/24 History propranolol 10 mg tablet 10 mg PO Q12H 09/26/24 09/26/24 History Allergies Allergy/AdvReac Type Severity Reaction Status Date / Time No Known Drug Allergies Allergy Unknown Unknown Verified 09/26/24 11:51 Vital Signs Vital Signs - 24 hr 09/26/24 11:24 09/26/24 12:10 09/26/24 12:24 Temperature 97.8 F Pulse Rate 150 H 114 H 106 H Respiratory Rate 14 20 Blood Pressure 144/95 H 130/87 147/70 H Pulse Oximetry 96 95 Oxygen Delivery Room Air Oxygen Flow Rate 09/26/24 13:12 09/26/24 13:27 09/26/24 13:34 Temperature Pulse Rate 151 H 149 H 177 H Respiratory Rate 24 H 32 H Blood Pressure 133/80 133/80 Pulse Oximetry Oxygen Delivery Oxygen Flow Rate 2 09/26/24 13:40 09/26/24 13:48 09/26/24 13:49 Temperature Pulse Rate 160 H 112 H 110 H Respiratory Rate 22 H Blood Pressure 116/74 116/74 Pulse Oximetry Oxygen Delivery Oxygen Flow Rate 09/26/24 13:51 09/26/24 14:00 09/26/24 14:07 Temperature 97.6 F 97.7 F Pulse Rate 112 H 116 H 112 H Respiratory Rate 17 20 Blood Pressure 116/74 116/74 158/87 H Pulse Oximetry 95 97 Oxygen Delivery Oxygen Flow Rate 09/26/24 14:22 09/26/24 14:30 09/26/24 14:45 Temperature 97.4 F L Pulse Rate 109 H 106 H 100 Respiratory Rate 13 22 H Blood Pressure 158/87 H 131/65 Pulse Oximetry 97 96 Oxygen Delivery Oxygen Flow Rate 09/26/24 14:45 09/26/24 16:04 09/26/24 16:25 Temperature 97.4 F L 97.5 F L 98.2 F Pulse Rate 100 95 90 Respiratory Rate 24 H 22 H 20 Blood Pressure 131/65 126/73 115/70 Pulse Oximetry 97 100 99 Oxygen Delivery Oxygen Flow Rate Exam 2 Narrative: APPEARANCE: patient appears older than his stated age Head: atraumatic. EYES: EOMI, NOSE: Atraumatic NECK: Trachea midline RESPIRATORY: No increased rate of breathing Clear to auscultation CARDIOVASCULAR: RRR, is no peripheral edema ABDOMINAL: soft nontender no guarding rebound MUSCULOSKELETAl: No obvious deformities NEURO: Alert. Moving 4/4 extremities SKIN:: Warm, dry. Normal color PSYCHIATRIC: Normal affect Results Labs 09/26/24 11:39 09/26/24 11:39 Labs: Short CBC 09/26/24 Range/Units 11:39 WBC 15.3 H (4.5-10.0) K/mm3 Hgb 7.3 L D (14.0-18.0) g/dL Hct 23.0 L (42.0-52.0) % Plt Count 241 D (150-375) k/mm3 BMP 09/26/24 11:39 Sodium 132 L Potassium 4.4 Chloride 98 Carbon Dioxide 12 L BUN 64 H D Creatinine 0.97 Glucose 175 H Calcium 9.2 Liver Function 09/26/24 Range/Units 11:39 Total Bilirubin 0.8 (0.2-1.3) mg/dL AST 34 (17-59) U/L ALT 36 (6-50) U/L Alkaline Phosphatase 73 (38-126) U/L Albumin 3.6 (3.5-5.1) g/dL
[2024-09-26 17:25] LABS: Iron 40 ug/dL (49-181)
[2024-09-26 17:35] LABS: Percent Iron Saturation 14 % (20-50)
[2024-09-26] MEDS: SODIUM CHLORIDE 0.9% IV 1,000 ML 125 ML IV CONT (17:42)
[2024-09-26 17:48] LABS: Procalcitonin 3.8 ng/mL
[2024-09-26 18:44] LABS: Hepatitis B Surface Antigen Negative (Negative)
[2024-09-26 18:50] LABS: HAV RESULT Negative (Negative); Hepatitis B Core IgM Result Negative (Negative)
[2024-09-26 19:03] LABS: Hepatitis C Virus Antibody Reactive (Negative)
[2024-09-26] MEDS: PANTOPRAZOLE SODIUM IV 40 MG VIAL IV PUSH (20:20)
[2024-09-26] MEDS: PROPRANOLOL HCL 10 MG TABLET PO (20:20)
[2024-09-26 22:00] LABS: Hematocrit 21.6 % (42.0-52.0); Hemoglobin 7.4 g/dL (14.0-18.0)
[2024-09-26 22:12] LABS: Lactic Acid Reflex 4.1 mmol/L (0.7-2.0)
[2024-09-26 23:30] LABS: Add Urine Microscopic? YES; Appearance Urine Clear (Clear); Bacteria Urine None Seen /hpf; Bilirubin Urine Negative (Negative); Blood Urine Negative (Negative); Color Urine Yellow (Yellow); Glucose Urine UA Negative (Negative); Ketones Urine Negative (Negative); Leukocyte Esterase Ur Trace LEU/UL (Negative); Nitrate Urine Negative (Negative); Non Pathogenic Casts 0-2; Protein Urine Negative (Negative); RBC Urine 0-2 /hpf (0-2); Squamous Epithelial Cell Urine None Seen /hpf (Few); Urobilinogen Urine 0.2 mg/dL (<2.0); WBC Urine 0-5 /hpf (0-3); pH Urine 5.5 (5.0-9.0)
--- NOTE | 2024-09-26 23:30 | ECG_ITS ---
Test Date: 2024-09-26 13:57:42 Measurements Intervals [place] Rate: 113 P: 69 [place]: 148 QRS: 35 QRSD: 78 T: 69 QT: 280 QTc: 384 Interpretive Statements SINUS TACHYCARDIA NONSPECIFIC ST & T-WAVE ABNORMALITY- DIFFUSE LEADS BASELINE ARTIFACT- I, II, III, AVR, AVL, AVF, V1-V6 ABNORMAL ECG No previous ECG available for comparison Electronically Signed On 09-26-2024 14:07:04 CDT by Adithya Morrow D.O.
[2024-09-27] VITALS (22 sets, daily range): BP systolic 96–139; BP diastolic 47–70; PULSE 62–89; RESP 15–20; TEMP 36.4–36.7; O2SAT 97–100; BMI 22.9
[2024-09-27] MEDS: SODIUM CHLORIDE 0.9% IV 1,000 ML 125 ML IV CONT ×2 (01:25→09:03)
[2024-09-27 04:34] LABS: Hematocrit 23.1 % (42.0-52.0); Hemoglobin 7.6 g/dL (14.0-18.0); Immature Platelet Fraction Pct 5.7 % (0.9-11.2); Mean Corpuscular HGB Conc 32.9 g/dl (32-36); Mean Corpuscular Hemoglobin 30.3 pg (26-34); Platelet Count Result 56 k/mm3 (150-375); Red Blood Count 2.51 M/mm3 (4.6-6.20); Red Cell Distribution Width 15.2 % (11.5-14.5); White Blood Count 12.2 K/mm3 (4.5-10.0)
[2024-09-27 04:46] LABS: Alanine Aminotransferase 107 U/L (6-50); Albumin Level 2.7 g/dL (3.5-5.1); Alkaline Phosphatase 60 U/L (38-126); Anion Gap 8 mmol/L (4-12); Aspartate Amino Transferase 173 U/L (17-59); Bilirubin,Total 0.7 mg/dL (0.2-1.3); Blood Urea Nitrogen 61 mg/dL (9-20); Calcium 8.4 mg/dL (8.4-10.2); Carbon Dioxide 22 mmol/L (22-30); Chloride 105 mmol/L (98-107); Estimated CRCL calculation 60 ml/min; Estimated Glomerular Filt Rate > 60; Glucose 121 mg/dL (65-110); Magnesium 1.8 mg/dL (1.6-2.3); Potassium 4.5 mmol/L (3.4-5.0); Sodium 135 mmol/L (137-145)
[2024-09-27 04:47] LABS: Lactic Acid Reflex 2.6 mmol/L (0.7-2.0)
[2024-09-27 05:05] LABS: Band Neutrophils Percent 6 % (0-6); Lymphocytes Absolute Manual 0.61 K/mm3 (1.1-4.5); Monocytes Absolute Manual 0.36 K/mm3 (0.1-0.90); Monocytes Percent Manual 3 % (3-9); Neutrophils Absolute Manual 11.22 K/mm3 (1.3-6.7); Neutrophils Percent Manual 86 % (46-73); Platelet Estimate Decreased (Adequate); Total Cells Counted 100
[2024-09-27 05:06] LABS: Anisocytosis 1+; Polychromasia 1+; Schistocytes None Seen
[2024-09-27 05:16] LABS: Thyroid Stimulating Hormone Reflex 0.101 uIU/mL (0.465-4.68)
[2024-09-27 06:30] LABS: Free T4 Free Thyroxine Reflex 1.19 ng/dL (0.78-2.19); Reflex Lactic Acid Yes or No Add Lactic
[2024-09-27] MEDS: OCTREOTIDE ACETATE 500 MCG in SODIUM CHLORIDE 0.9% IV 99 ML 10 MCG IV CONT (07:34)
[2024-09-27] MEDS: PANTOPRAZOLE SODIUM IV 40 MG VIAL IV PUSH (09:03)
--- NOTE | 2024-09-27 12:40 | P.PNIM_ITS ---
Progress Note: A&P Assessment and Plan (1) GI bleed: Qualifiers: GI bleed type/associated pathology: unspecified gastrointestinal hemorrhage type Qualified Code(s): K92.2 - Gastrointestinal hemorrhage, unspecified Code(s): K92.2 - Gastrointestinal hemorrhage, unspecified Status: Acute Assessment and Plan: - CT chest/abdomen/pelvis: 1. Multiple bilateral pulmonary nodules, largest in the left lower lobe measuring 1.4 cm, suspicious for metastatic disease. Correlate for history of malignancy. 2: Cirrhosis of the liver. 3: Patchy hypoperfusion of the kidneys, suspicious for pyelonephritis. 4: Mild thickening of the proximal spot bowel, suspicious for enteritis. 5: Nonobstructing bilateral nephrolithiasis. - Hx of esophageal varices and GI bleed, 3 episodes since Jun - trend H&H - stool occult/FABIOLA positive - started on ceftriaxone 2G Q24, continue - GI consulted, [facility] for EGDtoday HBsAg, anti HCV neg Consider Carvedilol starting dose 6.25 mg qam after stabilization and definitive diagnosis of source of bleeding (preferred beta-sarah to prevent portal hypertensive bleeding/delay further cirrhotic complications) - continue octreotide, famotidine, pantoprazole - monitor hemodynamic stability - NPO for EGD 09/27 (2) Anemia: Qualifiers: Anemia type: unspecified type Qualified Code(s): D64.9 - Anemia, unspecified Code(s): D64.9 - Anemia, unspecified Status: Acute Assessment and Plan: - Hgb 7.3, previously 11.9 on 10/07/2023 - acute on chronic, secondary to GI bleed - check iron, TIBC, ferritin - transfuse if <7 given abnormal vitals and patient condition (restless, agitated in ED) the patient was transfused 2 PRBC - monitor H&H (3) Cirrhosis: Qualifiers: Hepatic cirrhosis type: unspecified hepatic cirrhosis Ascites presence: without ascites Qualified Code(s): K74.60 - Unspecified cirrhosis of liver Code(s): K74.60 - Unspecified cirrhosis of liver Status: Acute Assessment and Plan: - GI consulted, Ross HALEY. see the above recommendations. - continue propranolol, may need to be transitioned to carvedilol based off GI recommendation. Plan for stabilization first. Plan Diet: NPO GI Prophylaxis: Pantoprazole, famotidine DVT Prophylaxis: SCDs Lines: Peripheral Code Status: Full code Subjective Date/time seen: 09/27/24 12:40 Interval history: per HPI: 69 y/o M with PMH of nasopharyngeal cancer, liver cancer (s/p chemo), esophageal varices, previous GI bleed, cirrhosis due to hepatitis C with some possible ETOH contribution, and ADHD presents here with concerns for GI bleed. The patient presents here from home via EMS on 09/26 for further evaluation of possible GI bleed. He reports onset of dark tarry stools yesterday. Then developed nausea and vomiting with a coffee-ground appearance today. He reports accompanying agitation, pallor, fatigue, dizziness, shortness of breath, and upper abdominal pain (has since resolved). He denies fever, chills, or body aches. He has a history of GI bleeds and esophageal varices. He is not currently on anticoagulation. 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 Less PET scan 6 weeks ago, does not believe he has any other known metastases. He receives [facility] care through [facility]. Per , who provided majority of the following history due to patient condition, the patient had started immunotherapy (Keytruda) in June 2024 as treatment for the nasopharyngeal cancer. However, 2-3 weeks later he developed dark tarry stools. The Keytruda was discontinued as it was believed this may have been cause for the GI bleed. Patient also has previously underwent radiation for the [employer] cancer, did not tolerate. Then, approximately 2-3 weeks ago he had a 2nd GI bleed. During this episode he had both dark tarry stools and hematemesis. He was admitted to the [facility] and underwent an EGD, 2 varices banded. He has a history of 1 prior banding in the summer of 2023. His reports the varices were inflamed and they were banded prophylactically. Initial VS at presentation: 97.8? F, HR 150, RR 14, 144/95, and 96% on RA. ED workup showed: WBC 15.3, hemoglobin 7.3 (11.9 on 10/07/2023), INR 1.4, ABG showed pH 7.5-2/CO2 17.8/O2 108.9/HC03 14.3, sodium 132, creatinine 0.97 and GFR >60, lactic 11.7. CT chest/abdomen/pelvis showed multiple bilateral pulmonary nodules largest in the left lower lobe measuring 1.4 cm suspicious for metastatic disease, cirrhosis of the liver, patchy hypo perfusion of the kidney suspicious for pyelonephritis, mild thickening at the proximal small bowel suspicious for enteritis, and nonobstructing bilateral nephrolithiasis. 09/27/24 Patient was seen and examined at bedside. He is feeling fine. Last bowel movement yesterday and was bloody. Plan for EGD today, Hb 7.6 Review of Systems Review of Systems: All systems reviewed & are unremarkable except as noted in HPI and below (Limited, patient condition) Exam Const: General: comfortable and no acute distress Other: , male, frail, ill-appearing, +pallor HENMT: Face/Nose/Sinus: Normal nares present Mouth: Yes dry mucous membranes Eyes: General: appearance normal, both eyes and all related structures Sclera: sclerae normal Pupils: Equal, round and reactive pupils present EOM: EOMs intact bilaterally Resp: Effort & Inspection: normal respiratory effort Auscultation: clear to auscultation bilaterally Cardio: Rate: regular rate Rhythm: regular rhythm Other: S1-S2 present without murmur, rub, ectopy GI: Other: Abdomen soft, nondistended. Normoactive bowel sounds in all quadrants. mild tenderness in the upper quadrants. No hepatomegaly or splenomegaly appreciated. Skin: General skin exam: no rashes or lesions noted Wounds: no wounds Other: +pallor Neuro: Cranial nerves: Yes Equal, round and reactive pupils present Speech: normal speech Motor exam (neuro): 5/5 motor strength present throughout Sensory Exam: normal sensation Other: A&O x3, intermittent confusion. Extrem: General: normal to inspection Psych: Mental Status: mental status grossly normal Affect: normal affect Other: Fair insight and judgment at present, pleasant. Objective Data Vital Signs Vital Signs: Vital Signs - 24 hr 09/26/24 13:12 09/26/24 13:27 09/26/24 13:34 Temperature Pulse Rate 151 H 149 H 177 H Respiratory Rate 24 H 32 H Blood Pressure 133/80 133/80 Pulse Oximetry Oxygen Delivery Oxygen Flow Rate 2 Fraction of Inspired Oxygen 09/26/24 13:40 09/26/24 13:48 09/26/24 13:49 Temperature Pulse Rate 160 H 112 H 110 H Respiratory Rate 22 H Blood Pressure 116/74 116/74 Pulse Oximetry Oxygen Delivery Oxygen Flow Rate Fraction of Inspired Oxygen 09/26/24 13:51 09/26/24 14:00 09/26/24 14:07 Temperature 97.6 F 97.7 F Pulse Rate 112 H 116 H 112 H Respiratory Rate 17 20 Blood Pressure 116/74 116/74 158/87 H Pulse Oximetry 95 97 Oxygen Delivery Oxygen Flow Rate Fraction of Inspired Oxygen 09/26/24 14:22 09/26/24 14:30 09/26/24 14:45 Temperature 97.4 F L Pulse Rate 109 H 106 H 100 Respiratory Rate 13 22 H Blood Pressure 158/87 H 131/65 Pulse Oximetry 97 96 Oxygen Delivery Oxygen Flow Rate Fraction of Inspired Oxygen 09/26/24 14:45 09/26/24 16:00 09/26/24 16:04 Temperature 97.4 F L 97.5 F L Pulse Rate 100 90 95 Respiratory Rate 24 H 22 H Blood Pressure 131/65 126/73 Pulse Oximetry 97 100 Oxygen Delivery Oxygen Flow Rate Fraction of Inspired Oxygen 09/26/24 16:25 09/26/24 18:00 09/26/24 19:52 Temperature 98.2 F 98.5 F Pulse Rate 90 92 87 Respiratory Rate 20 18 Blood Pressure 115/70 104/65 Pulse Oximetry 99 100 Oxygen Delivery Oxygen Flow Rate Fraction of Inspired Oxygen 09/26/24 20:00 09/26/24 20:00 09/26/24 20:39 Temperature Pulse Rate 80 Respiratory Rate Blood Pressure Pulse Oximetry 99 Oxygen Delivery Room Air Room Air Oxygen Flow Rate Fraction of Inspired Oxygen 21 09/26/24 22:00 09/26/24 23:51 09/27/24 00:00 Temperature 97.8 F Pulse Rate 99 74 75 Respiratory Rate 20 Blood Pressure 106/52 L Pulse Oximetry 99 Oxygen Delivery Oxygen Flow Rate Fraction of Inspired Oxygen 09/27/24 00:00 09/27/24 02:00 09/27/24 03:27 Temperature Pulse Rate 64 Respiratory Rate Blood Pressure Pulse Oximetry Oxygen Delivery Room Air Room Air Oxygen Flow Rate Fraction of Inspired Oxygen 09/27/24 04:00 09/27/24 04:18 09/27/24 06:00 Temperature 97.6 F Pulse Rate 65 66 66 Respiratory Rate 20 Blood Pressure 104/66 Pulse Oximetry 100 Oxygen Delivery Oxygen Flow Rate Fraction of Inspired Oxygen 09/27/24 07:48 09/27/24 11:34 Temperature 97.7 F 97.9 F Pulse Rate 67 73 Respiratory Rate 20 18 Blood Pressure 98/62 L 109/60 Pulse Oximetry 100 100 Oxygen Delivery Oxygen Flow Rate Fraction of Inspired Oxygen Intake/Output Intake/Output: Intake & Output 09/24/24 09/25/24 09/26/24 09/27/24 23:59 23:59 23:59 23:59 Intake Total 1908.2 2018.6 Output Total 300 650 Balance 1608.2 1368.6 Meds/Results Medications: Active Medications Generic Name Dose Route Start Last Admin Trade Name Freq PRN Reason Stop Dose Admin Acetaminophen 650 mg 09/26/24 17:39 Acetaminophen 325 Mg Tablet PO Q6H PRN pain Furosemide 20 mg 09/27/24 09:00 Furosemide 20 Mg Tablet PO DAILY OSCAR Octreotide Acetate 500 mcg/ 100 mls @ 10 mls/hr 09/26/24 11:55 09/27/24 07:34 Sodium Chloride IV CONT 50 mcg/hr .Q10H OSCAR 10 mls/hr Administration 50 MCG/HR Sodium Chloride 1,000 mls @ 125 mls/hr 09/26/24 14:15 09/27/24 09:03 Normal Saline Iv IV CONT 125 mls/hr .Q8H OSCAR Administration Ceftriaxone Sodium 2 gm in 100 mls @ 200 mls/hr 09/27/24 14:00 Rocephin 2 Gm/Ns 100 Ml IVPB Q24H OSCAR Ondansetron HCl 4 mg 09/26/24 14:14 Ondansetron Inj 4 Mg/2 Ml Vial IV PUSH Q4H PRN Nausea Pantoprazole Sodium 40 mg 09/26/24 21:00 09/27/24 09:03 Pantoprazole Sodium Iv 40 Mg Vial IV PUSH 40 mg Q12HR OSCAR Administration Prednisone 60 mg 09/27/24 09:00 Prednisone 20 Mg Tablet PO DAILY OSCAR Propranolol HCl 10 mg 09/26/24 21:00 09/26/24 20:20 Propranolol Hcl 10 Mg Tablet PO 10 mg Q12HR OSCAR Administration Radiology Results: ITS Impressions Chest/Abdomen/Pelvis CT 09/26/24 13:56 IMPRESSION: 1. Multiple bilateral pulmonary nodules, largest in the left lower lobe measuring 1.4 cm, suspicious for metastatic disease. Correlate for history of malignancy. 2: Cirrhosis of the liver. 3: Patchy hypoperfusion of the kidneys, suspicious for pyelonephritis. 4: Mild thickening of the proximal spot bowel, suspicious for enteritis. 5: Nonobstructing bilateral nephrolithiasis. Labs Labs: Laboratory Results - last 24 hr 09/26/24 09/26/24 09/26/24 11:38 11:53 16:53 WBC RBC Hgb Hct MCV MCH MCHC RDW Plt Count MPV Immature Gran % (Auto) Neut % (Auto) Lymph % (Auto) [place] % (Auto) Eos % (Auto) Baso % (Auto) Lymph # (Auto) [place] # (Auto) Eos # (Auto) Baso # (Auto) Abs Immat Gran (auto) Absolute Neuts (auto) Absolute Nucleated RBC Total Counted Neutrophils % (Manual) Band Neutrophils % Lymphocytes % (Manual) Monocytes % (Manual) Nucleated RBC % Abs Neuts (Manual) Abs Lymphs (Manual) Abs Monocytes (Manual) Platelet Estimate % Immature Plt Fraction Polychromasia Anisocytosis Schistocytes Sodium Potassium Chloride Carbon Dioxide Anion Gap BUN Creatinine Estim Creat Clear Calc Estimated GFR Glucose Lactic Acid 11.8 H* Calcium Magnesium 1.8 Iron 40 L TIBC 290 % Saturation 14 L Ferritin 134.00 Total Bilirubin AST ALT Alkaline Phosphatase Total Protein Albumin Procalcitonin 3.8 TSH (Reflex) Free T4 Total T3 Urine Color Urine Appearance Urine pH Ur Specific [place] Urine Protein Urine Glucose (UA) Urine Ketones Ur Blood (Man) Urine Nitrate Urine Bilirubin Urine Urobilinogen Leukocyte Esterase Rfl Urine RBC Urine WBC Ur Squamous Epith Cells Urine Bacteria Urine Casts Hepatitis A IgM Ab Negative Hep Bs Antigen Negative Hep B Core IgM Ab Negative Hepatitis C Ab Screen Reactive Blood Type O Positive Antibody Screen Negative Crossmatch See Detail 09/26/24 09/26/24 09/27/24 21:54 23:15 04:21 WBC 12.2 H RBC 2.51 L Hgb 7.4 L 7.6 L Hct 21.6 L 23.1 L MCV 92.0 MCH 30.3 MCHC 32.9 RDW 15.2 H Plt Count 56 L D MPV 11.0 H Immature Gran % (Auto) Not Reportable Neut % (Auto) Not Reportable Lymph % (Auto) Not Reportable [place] % (Auto) Not Reportable Eos % (Auto) Not Reportable Baso % (Auto) Not Reportable Lymph # (Auto) Not Reportable [place] # (Auto) Not Reportable Eos # (Auto) Not Reportable Baso # (Auto) Not Reportable Abs Immat Gran (auto) Not Reportable Absolute Neuts (auto) Not Reportable Absolute Nucleated RBC Not Reportable Total Counted 100 Neutrophils % (Manual) 86 H Band Neutrophils % 6 Lymphocytes % (Manual) 5.0 L Monocytes % (Manual) 3 Nucleated RBC % Not Reportable Abs Neuts (Manual) 11.22 H Abs Lymphs (Manual) 0.61 L Abs Monocytes (Manual) 0.36 Platelet Estimate Decreased % Immature Plt Fraction 5.7 Polychromasia 1+ Anisocytosis 1+ Schistocytes None seen Sodium 135 L Potassium 4.5 Chloride 105 Carbon Dioxide 22 Anion Gap 8 BUN 61 H Creatinine 1.17 Estim Creat Clear Calc 60 Estimated GFR > 60 Glucose 121 H Lactic Acid 4.1 H* 2.6 H Calcium 8.4 Magnesium 1.8 Iron TIBC % Saturation Ferritin Total Bilirubin 0.7 AST 173 H ALT 107 H Alkaline Phosphatase 60 Total Protein 5.0 L Albumin 2.7 L Procalcitonin TSH (Reflex) 0.101 L Free T4 1.19 Total T3 0.60 L Urine Color Yellow Urine Appearance Clear Urine pH 5.5 Ur Specific [place] 1.040 H Urine Protein Negative Urine Glucose (UA) Negative Urine Ketones Negative Ur Blood (Man) Negative Urine Nitrate Negative Urine Bilirubin Negative Urine Urobilinogen 0.2 Leukocyte Esterase Rfl Trace H Urine RBC 0-2 Urine WBC 0-5 Ur Squamous Epith Cells None seen Urine Bacteria None seen Urine Casts 0-2 Hepatitis A IgM Ab Hep Bs Antigen Hep B Core IgM Ab Hepatitis C Ab Screen Blood Type Antibody Screen Crossmatch Quality VTE Prophylaxis VTE prophylaxis: mechanical ordered
[2024-09-27] MEDS: LACTATED RINGERS 1,000 ML 150 ML IV CONT (13:26)
--- NOTE | 2024-09-27 14:08 | WPDANESEPPF ---
Anes - Initial Pre Proc Eval Procedure: Operation Date: 09/27/24 15:15 Proposed Procedures p Esophagogastroduodenoscopy EGD - Juan Ramon Hawkins MD Date/Time: 09/27/24 14:08 Surgeon: Ksenia Enamorado MD Pre Op Diagnosis: AFib, Gi bleed, anemia Patient Data Age: 69 Gender: M Height: 1.85 m Weight: 78.9 kg Last Vital Signs Temp 97.6 F 09/27/24 13:23 Pulse 71 09/27/24 13:23 Resp 20 09/27/24 13:23 BP 114/70 09/27/24 13:23 Pulse Ox 99 09/27/24 13:23 O2 Del Method Room Air 09/27/24 13:23 O2 Flow Rate 2 09/26/24 13:34 FiO2 21 09/26/24 20:39 Allergies Allergy/AdvReac Type Severity Reaction Status Date / Time No Known Drug Allergies Allergy Unknown Unknown Verified 09/27/24 13:21 Home Medications ?Medication ?Instructions ?Recorded ?Confirmed ?Type dextroamphetamine-amphetamine 20 20 mg PO PRN 03/02/21 09/26/24 History mg tablet omeprazole 20 mg capsule,delayed 40 mg PO QID 03/02/21 09/26/24 History release tramadol 50 mg tablet 50 mg PO PRN 03/02/21 09/26/24 History acetaminophen 325 mg tablet (Pain 650 mg PO Q6H PRN pain 09/26/24 09/26/24 History Reliever (acetaminophen)) furosemide 20 mg tablet (Lasix) 20 mg PO DAILY 09/26/24 09/26/24 History hydroxyzine HCl 10 mg tablet 10 mg PO TID PRN itching 09/26/24 09/26/24 History loperamide 2 mg capsule 2 mg PO QID PRN loose stool 09/26/24 09/26/24 History (Anti-Diarrheal (loperamide)) ondansetron 8 mg disintegrating 8 mg PO TID 09/26/24 09/26/24 History tablet pembrolizumab 25 mg/mL intravenous 200 mg IV ONCE 09/26/24 09/26/24 History solution (Keytruda) prednisone 20 mg tablet 60 mg PO DAILY 09/26/24 09/26/24 History propranolol 10 mg tablet 10 mg PO Q12H 09/26/24 09/26/24 History Laboratory Tests 09/26/24 09/26/24 09/26/24 11:38 11:53 16:53 WBC RBC Hgb Hct MCV MCH MCHC RDW Plt Count MPV Immature Gran % (Auto) Neut % (Auto) Lymph % (Auto) [place] % (Auto) Eos % (Auto) Baso % (Auto) Lymph # (Auto) [place] # (Auto) Eos # (Auto) Baso # (Auto) Abs Immat Gran (auto) Absolute Neuts (auto) Absolute Nucleated RBC Total Counted Neutrophils % (Manual) Band Neutrophils % Lymphocytes % (Manual) Monocytes % (Manual) Nucleated RBC % Abs Neuts (Manual) Abs Lymphs (Manual) Abs Monocytes (Manual) Platelet Estimate % Immature Plt Fraction Polychromasia Anisocytosis Schistocytes Sodium Potassium Chloride Carbon Dioxide Anion Gap BUN Creatinine Estim Creat Clear Calc Estimated GFR Glucose Lactic Acid 11.8 H* mmol/L (0.7-2.0) Calcium Magnesium 1.8 mg/dL (1.6-2.3) Iron 40 L ug/dL (49-181) TIBC 290 ug/dL (265-497) % Saturation 14 L % (20-50) Ferritin 134.00 ng/mL (11.1-264) Total Bilirubin AST ALT Alkaline Phosphatase Total Protein Albumin Procalcitonin 3.8 ng/mL TSH (Reflex) Free T4 Total T3 Urine Color Urine Appearance Urine pH Ur Specific [place] Urine Protein Urine Glucose (UA) Urine Ketones Ur Blood (Man) Urine Nitrate Urine Bilirubin Urine Urobilinogen Leukocyte Esterase Rfl Urine RBC Urine WBC Ur Squamous Epith Cells Urine Bacteria Urine Casts Hepatitis A IgM Ab Negative (Negative) Hep Bs Antigen Negative (Negative) Hep B Core IgM Ab Negative (Negative) Hepatitis C Ab Screen Reactive (Negative) HCV RNA (PCR) IUs/ml Pending HCV RNA PCR log IUs/ml Pending Blood Type O Positive Antibody Screen Negative Crossmatch See Detail 09/26/24 09/26/24 09/27/24 21:54 23:15 04:21 WBC 12.2 H K/mm3 (4.5-10.0) RBC 2.51 L M/mm3 (4.6-6.20) Hgb 7.4 L g/dL 7.6 L g/dL (14.0-18.0) (14.0-18.0) Hct 21.6 L % 23.1 L % (42.0-52.0) (42.0-52.0) MCV 92.0 fl (80-100) MCH 30.3 pg (26-34) MCHC 32.9 g/dl (32-36) RDW 15.2 H % (11.5-14.5) Plt Count 56 L D k/mm3 (150-375) MPV 11.0 H fl (7.4-10.4) Immature Gran % (Auto) Not Reportable Neut % (Auto) Not Reportable Lymph % (Auto) Not Reportable [place] % (Auto) Not Reportable Eos % (Auto) Not Reportable Baso % (Auto) Not Reportable Lymph # (Auto) Not Reportable [place] # (Auto) Not Reportable Eos # (Auto) Not Reportable Baso # (Auto) Not Reportable Abs Immat Gran (auto) Not Reportable Absolute Neuts (auto) Not Reportable Absolute Nucleated RBC Not Reportable Total Counted 100 Neutrophils % (Manual) 86 H % (46-73) Band Neutrophils % 6 % (0-6) Lymphocytes % (Manual) 5.0 L % (18-44) Monocytes % (Manual) 3 % (3-9) Nucleated RBC % Not Reportable Abs Neuts (Manual) 11.22 H K/mm3 (1.3-6.7) Abs Lymphs (Manual) 0.61 L K/mm3 (1.1-4.5) Abs Monocytes (Manual) 0.36 K/mm3 (0.1-0.90) Platelet Estimate Decreased (Adequate) % Immature Plt Fraction 5.7 % (0.9-11.2) Polychromasia 1+ Anisocytosis 1+ Schistocytes None seen Sodium 135 L mmol/L (137-145) Potassium 4.5 mmol/L (3.4-5.0) Chloride 105 mmol/L (98-107) Carbon Dioxide 22 mmol/L (22-30) Anion Gap 8 mmol/L (4-12) BUN 61 H mg/dL (9-20) Creatinine 1.17 mg/dL (0.7-1.3) Estim Creat Clear Calc 60 ml/min Estimated GFR > 60 (59 - ) Glucose 121 H mg/dL (65-110) Lactic Acid 4.1 H* mmol/L 2.6 H mmol/L (0.7-2.0) (0.7-2.0) Calcium 8.4 mg/dL (8.4-10.2) Magnesium 1.8 mg/dL (1.6-2.3) Iron TIBC % Saturation Ferritin Total Bilirubin 0.7 mg/dL (0.2-1.3) AST 173 H U/L (17-59) ALT 107 H U/L (6-50) Alkaline Phosphatase 60 U/L (38-126) Total Protein 5.0 L g/dL (6.3-8.2) Albumin 2.7 L g/dL (3.5-5.1) Procalcitonin TSH (Reflex) 0.101 L uIU/mL (0.465-4.68) Free T4 1.19 ng/dL (0.78-2.19) Total T3 0.60 L NG/ML (0.97-1.69) Urine Color Yellow (Yellow) Urine Appearance Clear (Clear) Urine pH 5.5 (5.0-9.0) Ur Specific [place] 1.040 H (1.001-1.035) Urine Protein Negative mg/dL (Negative) Urine Glucose (UA) Negative mg/dL (Negative) Urine Ketones Negative mg/dL (Negative) Ur Blood (Man) Negative (Negative) Urine Nitrate Negative (Negative) Urine Bilirubin Negative (Negative) Urine Urobilinogen 0.2 mg/dL (<2.0) Leukocyte Esterase Rfl Trace H [place]/UL (Negative) Urine RBC 0-2 /hpf (0-2) Urine WBC 0-5 /hpf (0-3) Ur Squamous Epith Cells None seen /hpf (Few) Urine Bacteria None seen /hpf Urine Casts 0-2 Hepatitis A IgM Ab Hep Bs Antigen Hep B Core IgM Ab Hepatitis C Ab Screen HCV RNA (PCR) IUs/ml HCV RNA PCR log IUs/ml Blood Type Antibody Screen Crossmatch Patient hx anesthesia problems: none Family hx anesthesia problems: none Results Review: All pre-operative results and documents have been reviewed as part of the pre-operative evaluation. 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 Esophageal varices ADHD GI bleed Social History Social History Smoking status: Former smoker Alcohol intake: former Substance use: current Substance use type: former substance user and marijuana Other substance usage details: a little bit of everything out there Marijuana capsule, suppository, oil Do You Feel Safe in your Home?: Yes Lack of Transportation: No Lack of Food: Never True Current Housing: I Have Housing Concerned About Future Housing: No Difficulty Paying Gas/Electric Bills: No Difficulty Paying for Meds: No Currently Unemployed: No Education: Trade/Vocational Certificate Difficulty w/ Childcare or Family Care: No Spiritual care concerns: No Anes - Eval Final PreProcedure Day of Procedure 09/27/24 14:08 Patient weight: normal Heart: regular rate and rhythm Lungs: clear to auscultation Airway: Mallampati scale class III Neurological: alert and oriented Last oral intake: >/= 8 hours ASA classification: IV Emergent: no Anesthetic plan: proceed Anesthesia type and monitoring: general GIVS and standard monitoring Results Review: All pre-operative results and documents have been reviewed as part of the pre-operative evaluation. Informed Consent: The patient's anesthetic plan and its attendant risks and benefits were discussed with the patient/family/POA. Questions were solicited and answers provided to the satisfaction of the patient/family/POA.
--- NOTE | 2024-09-27 14:59 | P.PNGI_ITS ---
Progress Note: A&P Assessment and Plan (1) Cirrhosis: Qualifiers: Hepatic cirrhosis type: unspecified hepatic cirrhosis Ascites presence: without ascites Qualified Code(s): K74.60 - Unspecified cirrhosis of liver Code(s): K74.60 - Unspecified cirrhosis of liver Status: Acute Assessment and Plan: See EGD report. The patient does not have an acute variceal bleeding, and the cough regard and his is probably originated in a post variceal ligation ulcer, not actively bleeding. The beta-sarah of choice is carvedilol, which will decrease the probability of variceal bleeding and will delay further cirrhotic complications especially ascites. Therefore, propranolol was discontinued and carvedilol was started. Antibiotic, pantoprazole and octreotide are also discontinued since the patient did not have an active variceal bleeding. He can have a regular meal tonight and be discharged home either tonight or tomorrow morning. Subjective Date/time seen: 09/27/24 14:59 Objective Data Vital Signs Vital Signs: Vital Signs - 24 hr 09/26/24 16:00 09/26/24 16:04 09/26/24 16:25 Temperature 97.5 F L 98.2 F Pulse Rate 90 95 90 Respiratory Rate 22 H 20 Blood Pressure 126/73 115/70 Pulse Oximetry 100 99 Oxygen Delivery Fraction of Inspired Oxygen 09/26/24 18:00 09/26/24 19:52 09/26/24 20:00 Temperature 98.5 F Pulse Rate 92 87 Respiratory Rate 18 Blood Pressure 104/65 Pulse Oximetry 100 Oxygen Delivery Room Air Fraction of Inspired Oxygen 09/26/24 20:00 09/26/24 20:39 09/26/24 22:00 Temperature Pulse Rate 80 99 Respiratory Rate Blood Pressure Pulse Oximetry 99 Oxygen Delivery Room Air Fraction of Inspired Oxygen 21 09/26/24 23:51 09/27/24 00:00 09/27/24 00:00 Temperature 97.8 F Pulse Rate 74 75 Respiratory Rate 20 Blood Pressure 106/52 L Pulse Oximetry 99 Oxygen Delivery Room Air Fraction of Inspired Oxygen 09/27/24 02:00 09/27/24 03:27 09/27/24 04:00 Temperature Pulse Rate 64 65 Respiratory Rate Blood Pressure Pulse Oximetry Oxygen Delivery Room Air Fraction of Inspired Oxygen 09/27/24 04:18 09/27/24 06:00 09/27/24 07:48 Temperature 97.6 F 97.7 F Pulse Rate 66 66 67 Respiratory Rate 20 20 Blood Pressure 104/66 98/62 L Pulse Oximetry 100 100 Oxygen Delivery Fraction of Inspired Oxygen 09/27/24 08:00 09/27/24 11:34 09/27/24 12:00 Temperature 97.9 F Pulse Rate 62 73 70 Respiratory Rate 18 Blood Pressure 109/60 Pulse Oximetry 100 Oxygen Delivery Fraction of Inspired Oxygen 09/27/24 13:23 09/27/24 14:49 Temperature 97.6 F Pulse Rate 71 77 Respiratory Rate 20 15 Blood Pressure 114/70 97/54 L Pulse Oximetry 99 100 Oxygen Delivery Room Air Room Air Fraction of Inspired Oxygen Intake/Output Intake/Output: Intake & Output 09/24/24 09/25/24 09/26/24 09/27/24 23:59 23:59 23:59 23:59 Intake Total 1908.2 2018.6 Output Total 300 650 Balance 1608.2 1368.6 Meds/Results Medications: Active Medications Generic Name Dose Route Start Last Admin Trade Name Freq PRN Reason Stop Dose Admin Acetaminophen 650 mg 09/26/24 17:39 Acetaminophen 325 Mg Tablet PO Q6H PRN pain Carvedilol 6.25 mg 09/27/24 21:00 Carvedilol 6.25 Mg Tablet PO Q12HR OSCAR Furosemide 20 mg 09/27/24 09:00 Furosemide 20 Mg Tablet PO DAILY OSCAR Sodium Chloride 1,000 mls @ 125 mls/hr 09/26/24 14:15 09/27/24 09:03 Normal Saline Iv IV CONT 125 mls/hr .Q8H OSCAR Administration Lactated Ringer's 1,000 mls @ 150 mls/hr 09/27/24 13:25 09/27/24 14:44 Lr - Lactated Ringers Iv IV CONT 150 mls/hr .Q6H40M OSCAR Infusion Ondansetron HCl 4 mg 09/26/24 14:14 Ondansetron Inj 4 Mg/2 Ml Vial IV PUSH Q4H PRN Nausea Prednisone 60 mg 09/27/24 09:00 Prednisone 20 Mg Tablet PO DAILY OSCAR Radiology Results: ITS Impressions Chest/Abdomen/Pelvis CT 09/26/24 13:56 IMPRESSION: 1. Multiple bilateral pulmonary nodules, largest in the left lower lobe measuring 1.4 cm, suspicious for metastatic disease. Correlate for history of malignancy. 2: Cirrhosis of the liver. 3: Patchy hypoperfusion of the kidneys, suspicious for pyelonephritis. 4: Mild thickening of the proximal spot bowel, suspicious for enteritis. 5: Nonobstructing bilateral nephrolithiasis. Labs Labs: Laboratory Results - last 24 hr 09/26/24 09/26/24 09/26/24 11:53 16:53 21:54 WBC RBC Hgb 7.4 L Hct 21.6 L MCV MCH MCHC RDW Plt Count MPV Immature Gran % (Auto) Neut % (Auto) Lymph % (Auto) [place] % (Auto) Eos % (Auto) Baso % (Auto) Lymph # (Auto) [place] # (Auto) Eos # (Auto) Baso # (Auto) Abs Immat Gran (auto) Absolute Neuts (auto) Absolute Nucleated RBC Total Counted Neutrophils % (Manual) Band Neutrophils % Lymphocytes % (Manual) Monocytes % (Manual) Nucleated RBC % Abs Neuts (Manual) Abs Lymphs (Manual) Abs Monocytes (Manual) Platelet Estimate % Immature Plt Fraction Polychromasia Anisocytosis Schistocytes Sodium Potassium Chloride Carbon Dioxide Anion Gap BUN Creatinine Estim Creat Clear Calc Estimated GFR Glucose Lactic Acid 11.8 H* 4.1 H* Calcium Magnesium Iron 40 L TIBC 290 % Saturation 14 L Ferritin 134.00 Total Bilirubin AST ALT Alkaline Phosphatase Total Protein Albumin Procalcitonin 3.8 TSH (Reflex) Free T4 Total T3 Urine Color Urine Appearance Urine pH Ur Specific [place] Urine Protein Urine Glucose (UA) Urine Ketones Ur Blood (Man) Urine Nitrate Urine Bilirubin Urine Urobilinogen Leukocyte Esterase Rfl Urine RBC Urine WBC Ur Squamous Epith Cells Urine Bacteria Urine Casts Hepatitis A IgM Ab Negative Hep Bs Antigen Negative Hep B Core IgM Ab Negative Hepatitis C Ab Screen Reactive Crossmatch See Detail 09/26/24 09/27/24 23:15 04:21 WBC 12.2 H RBC 2.51 L Hgb 7.6 L Hct 23.1 L MCV 92.0 MCH 30.3 MCHC 32.9 RDW 15.2 H Plt Count 56 L D MPV 11.0 H Immature Gran % (Auto) Not Reportable Neut % (Auto) Not Reportable Lymph % (Auto) Not Reportable [place] % (Auto) Not Reportable Eos % (Auto) Not Reportable Baso % (Auto) Not Reportable Lymph # (Auto) Not Reportable [place] # (Auto) Not Reportable Eos # (Auto) Not Reportable Baso # (Auto) Not Reportable Abs Immat Gran (auto) Not Reportable Absolute Neuts (auto) Not Reportable Absolute Nucleated RBC Not Reportable Total Counted 100 Neutrophils % (Manual) 86 H Band Neutrophils % 6 Lymphocytes % (Manual) 5.0 L Monocytes % (Manual) 3 Nucleated RBC % Not Reportable Abs Neuts (Manual) 11.22 H Abs Lymphs (Manual) 0.61 L Abs Monocytes (Manual) 0.36 Platelet Estimate Decreased % Immature Plt Fraction 5.7 Polychromasia 1+ Anisocytosis 1+ Schistocytes None seen Sodium 135 L Potassium 4.5 Chloride 105 Carbon Dioxide 22 Anion Gap 8 BUN 61 H Creatinine 1.17 Estim Creat Clear Calc 60 Estimated GFR > 60 Glucose 121 H Lactic Acid 2.6 H Calcium 8.4 Magnesium 1.8 Iron TIBC % Saturation Ferritin Total Bilirubin 0.7 AST 173 H ALT 107 H Alkaline Phosphatase 60 Total Protein 5.0 L Albumin 2.7 L Procalcitonin TSH (Reflex) 0.101 L Free T4 1.19 Total T3 0.60 L Urine Color Yellow Urine Appearance Clear Urine pH 5.5 Ur Specific [place] 1.040 H Urine Protein Negative Urine Glucose (UA) Negative Urine Ketones Negative Ur Blood (Man) Negative Urine Nitrate Negative Urine Bilirubin Negative Urine Urobilinogen 0.2 Leukocyte Esterase Rfl Trace H Urine RBC 0-2 Urine WBC 0-5 Ur Squamous Epith Cells None seen Urine Bacteria None seen Urine Casts 0-2 Hepatitis A IgM Ab Hep Bs Antigen Hep B Core IgM Ab Hepatitis C Ab Screen Crossmatch
--- NOTE | 2024-09-27 15:12 | SUR.PHASEII ---
Dr. Hawkins requested I enter order for regular diet. Patient states he is on a pureed diet. Regular puree diet ordered.
[2024-09-27] MEDS: FUROSEMIDE 20 MG TABLET PO (15:50)
[2024-09-27] MEDS: predniSONE 20 MG TABLET 60 MG PO (15:56)
[2024-09-27] MEDS: carvediloL 6.25 MG TABLET PO (20:48)
[2024-09-28] VITALS (23 sets, daily range): BP systolic 91–124; BP diastolic 54–73; PULSE 62–74; RESP 18–22; TEMP 36.3–36.8; O2SAT 99–100
[2024-09-28 04:46] LABS: Immature Platelet Fraction Pct 6.3 % (0.9-11.2); Mean Corpuscular HGB Conc 31.1 g/dl (32-36); Mean Corpuscular Hemoglobin 29.1 pg (26-34); Mean Corpuscular Volume 93.4 fl (80-100); Mean Platelet Volume 11.2 fl (7.4-10.4); Red Blood Count 1.96 M/mm3 (4.6-6.20); Red Cell Distribution Width 15.7 % (11.5-14.5)
[2024-09-28 04:47] LABS: Platelet Count Result 39 k/mm3 (150-375)
[2024-09-28 04:49] LABS: Hematocrit 18.3 % (42.0-52.0); Hemoglobin 5.7 g/dL (14.0-18.0)
[2024-09-28 05:08] LABS: Alanine Aminotransferase 95 U/L (6-50); Albumin Level 2.5 g/dL (3.5-5.1); Alkaline Phosphatase 54 U/L (38-126); Anion Gap 7 mmol/L (4-12); Aspartate Amino Transferase 94 U/L (17-59); Bilirubin,Total 0.5 mg/dL (0.2-1.3); Blood Urea Nitrogen 37 mg/dL (9-20); Calcium 7.9 mg/dL (8.4-10.2); Carbon Dioxide 22 mmol/L (22-30); Chloride 101 mmol/L (98-107); Estimated CRCL calculation 83 ml/min; Estimated Glomerular Filt Rate > 60; Glucose 151 mg/dL (65-110); Potassium 3.6 mmol/L (3.4-5.0); Sodium 130 mmol/L (137-145)
[2024-09-28] MEDS: SODIUM CHLORIDE 0.9% IV 250 ML 30 ML IV CONT (06:55)
[2024-09-28] MEDS: predniSONE 20 MG TABLET 60 MG PO (08:33)
[2024-09-28] MEDS: carvediloL 6.25 MG TABLET PO ×2 (08:34→20:44)
[2024-09-28] MEDS: ACETAMINOPHEN 325 MG TABLET 650 MG PO ×2 (08:39→16:37)
--- NOTE | 2024-09-28 09:45 | PC.NURSE ---
On 09/28/24, the student, [Karla Lowery], provided care and completed [facility] documentation on this patient. I have reviewed the student's documentation and agree with the findings.
--- NOTE | 2024-09-28 11:04 | PCNFU ---
Nutrition Follow-Up Complete: Inadequate oral intake related to swallowing issues as evidenced by NPO, pt report Textures appropriate for patient needs - Goal is being met with puree diet Goal: Pt current nutrition is Puree, regular diet with thin liquids. Nutrition recommendation: Puree diet as ordered and pt can have his Very High Calorie Boost from home Last recorded weight is 82.2 kg. Bowel Motility: Last BM 09/26/24 Labs Reviewed: Hgb 5.7, Hct 18.3, Alb 2.5, Na 130, BUN 37, Glu 151 Meds Noted: NS, Lasix, prednisone Skin: WNL Additional Notes: Pt declined speech evaluation per RN, he is eating some puree and doing okay. Still has a lot of mucous. taking in Very High Calorie Boost from home, prefers that to house Ensure Enlive. Home soon per notes. Monitoring intakes, weights, labs, swallowing ability, plan of care Follow up in 3 day
[2024-09-28] MEDS: TUBING, BLOOD PLUM PUMP TUBING 1 EACH XX (13:03)
--- NOTE | 2024-09-28 13:20 | PM.IMPN ---
Progress Note: A&P Assessment and Plan (1) GI bleed: Qualifiers: GI bleed type/associated pathology: unspecified gastrointestinal hemorrhage type Qualified Code(s): K92.2 - Gastrointestinal hemorrhage, unspecified Code(s): K92.2 - Gastrointestinal hemorrhage, unspecified Status: Acute Assessment and Plan: - CT chest/abdomen/pelvis: 1. Multiple bilateral pulmonary nodules, largest in the left lower lobe measuring 1.4 cm, suspicious for metastatic disease. Correlate for history of malignancy. 2: Cirrhosis of the liver. 3: Patchy hypoperfusion of the kidneys, suspicious for pyelonephritis. 4: Mild thickening of the proximal spot bowel, suspicious for enteritis. 5: Nonobstructing bilateral nephrolithiasis. - Hx of esophageal varices and GI bleed, 3 episodes since Jun - trend H&H. Hemoglobin 5.7. Will transfuse 2 units of blood 09/28/2024. - stool occult/FABIOLA positive - started on ceftriaxone 2G Q24, DC yesterday by GI team. - GI consulted, EGD negative for active bleeding anti HCV reactive, HCV RNA pending Low-dose Coreg) -DC octreotide, pantoprazole 09/27/2024 by GI team after endoscopy - monitor hemodynamic stability (2) Anemia: Qualifiers: Anemia type: iron deficiency Iron deficiency anemia type: chronic blood loss Qualified Code(s): D50.0 - Iron deficiency anemia secondary to blood loss (chronic) Code(s): D64.9 - Anemia, unspecified Status: Acute Assessment and Plan: - Hgb 7.3, previously 11.9 on 10/07/2023 - acute on chronic, secondary to GI bleed - check iron, TIBC, ferritin - transfuse if <7 given abnormal vitals and patient condition (restless, agitated in ED) the patient was transfused 2 PRBC - monitor H&H (3) Cirrhosis: Qualifiers: Hepatic cirrhosis type: unspecified hepatic cirrhosis Ascites presence: without ascites Qualified Code(s): K74.60 - Unspecified cirrhosis of liver Code(s): K74.60 - Unspecified cirrhosis of liver Status: Acute Assessment and Plan: - GI consulted, Ross HALEY. see the above recommendations. - continue coreg low dose Plan Diet: regular GI Prophylaxis: ppi DVT Prophylaxis: SCDs Lines: Peripheral Code Status: Full code Subjective Date/time seen: 09/28/24 13:20 Interval history: per HPI: 69 y/o M with PMH of nasopharyngeal cancer, liver cancer (s/p chemo), esophageal varices, previous GI bleed, cirrhosis due to hepatitis C with some possible ETOH contribution, and ADHD presents here with concerns for GI bleed. The patient presents here from home via EMS on 09/26 for further evaluation of possible GI bleed. He reports onset of dark tarry stools yesterday. Then developed nausea and vomiting with a coffee-ground appearance today. He reports accompanying agitation, pallor, fatigue, dizziness, shortness of breath, and upper abdominal pain (has since resolved). He denies fever, chills, or body aches. He has a history of GI bleeds and esophageal varices. He is not currently on anticoagulation. 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 Less PET scan 6 weeks ago, does not believe he has any other known metastases. [facility] Per , who provided majority of the following history due to patient condition, the patient had started immunotherapy (Keytruda) in June 2024 as treatment for the nasopharyngeal cancer. However, 2-3 weeks later he developed dark tarry stools. The Keytruda was discontinued as it was believed this may have been cause for the GI bleed. Patient also has previously underwent radiation for the [employer] cancer, did not tolerate. Then, approximately 2-3 weeks ago he had a 2nd GI bleed. During this episode he had both dark tarry stools and hematemesis. He was admitted to the [facility] and underwent an EGD, 2 varices banded. He has a history of 1 prior banding in the summer of 2023. His reports the varices were inflamed and they were banded prophylactically. Initial VS at presentation: 97.8? F, HR 150, RR 14, 144/95, and 96% on RA. ED workup showed: WBC 15.3, hemoglobin 7.3 (11.9 on 10/07/2023), INR 1.4, ABG showed pH 7.5-2/CO2 17.8/O2 108.9/HC03 14.3, sodium 132, creatinine 0.97 and GFR >60, lactic 11.7. CT chest/abdomen/pelvis showed multiple bilateral pulmonary nodules largest in the left lower lobe measuring 1.4 cm suspicious for metastatic disease, cirrhosis of the liver, patchy hypo perfusion of the kidney suspicious for pyelonephritis, mild thickening at the proximal small bowel suspicious for enteritis, and nonobstructing bilateral nephrolithiasis. 09/27/24 Patient was seen and examined at bedside. He is feeling fine. Last bowel movement yesterday and was bloody. Plan for EGD today, Hb 7.6 09/28/24 Patient was seen and examined at bedside. He feels fine. Denies any chest pain, shortness as of breath, abdominal pain, nausea vomiting. EGD negative for active bleeding. Hemoglobin 5.7 today. Patient is receiving 2 units of blood after bowel movement was 2 days ago. Will monitor patient overnight. Review of Systems Review of Systems: All systems reviewed & are unremarkable except as noted in HPI and below (Limited, patient condition) Exam Const: General: comfortable and no acute distress Other: , male, frail, ill-appearing, +pallor HENMT: Face/Nose/Sinus: Normal nares present Mouth: Yes dry mucous membranes Eyes: General: appearance normal, both eyes and all related structures Sclera: sclerae normal Pupils: Equal, round and reactive pupils present EOM: EOMs intact bilaterally Resp: Effort & Inspection: normal respiratory effort Auscultation: clear to auscultation bilaterally Cardio: Rate: regular rate Rhythm: regular rhythm Other: S1-S2 present without murmur, rub, ectopy GI: Other: Abdomen soft, nondistended. Normoactive bowel sounds in all quadrants. mild tenderness in the upper quadrants. No hepatomegaly or splenomegaly appreciated. Skin: General skin exam: no rashes or lesions noted Wounds: no wounds Other: +pallor Neuro: Cranial nerves: Yes Equal, round and reactive pupils present Speech: normal speech Motor exam (neuro): 5/5 motor strength present throughout Sensory Exam: normal sensation Other: A&O x3, intermittent confusion. Extrem: General: normal to inspection Psych: Mental Status: mental status grossly normal Affect: normal affect Other: Fair insight and judgment at present, pleasant. Objective Data Vital Signs Vital Signs: Vital Signs - 24 hr 09/27/24 13:23 09/27/24 14:49 09/27/24 14:59 Temperature 97.6 F Pulse Rate 71 77 79 Respiratory Rate 20 15 20 Blood Pressure 114/70 97/54 L 96/58 L Pulse Oximetry 99 100 100 Oxygen Delivery Room Air Room Air Room Air 09/27/24 15:09 09/27/24 15:44 09/27/24 16:00 Temperature 98.1 F Pulse Rate 82 89 79 Respiratory Rate 20 20 Blood Pressure 102/65 139/56 L Pulse Oximetry 97 99 Oxygen Delivery Room Air 09/27/24 18:00 09/27/24 19:26 09/27/24 19:29 Temperature Pulse Rate 86 76 76 Respiratory Rate 20 Blood Pressure Pulse Oximetry 99 Oxygen Delivery Room Air 09/27/24 19:52 09/27/24 20:48 09/27/24 22:00 Temperature 97.9 F Pulse Rate 83 68 68 Respiratory Rate 20 Blood Pressure 100/54 L Pulse Oximetry 100 Oxygen Delivery 09/27/24 23:55 09/28/24 00:00 09/28/24 00:00 Temperature 97.9 F Pulse Rate 76 71 72 Respiratory Rate 18 18 Blood Pressure 99/47 L Pulse Oximetry 100 100 Oxygen Delivery Room Air 09/28/24 03:00 09/28/24 04:00 09/28/24 04:00 Temperature Pulse Rate 72 66 66 Respiratory Rate 18 Blood Pressure Pulse Oximetry 100 Oxygen Delivery Room Air 09/28/24 04:00 09/28/24 05:39 09/28/24 05:55 Temperature 97.8 F 98.0 F 98.2 F Pulse Rate 71 68 70 Respiratory Rate 18 20 18 Blood Pressure 94/54 L 91/67 L 111/56 L Pulse Oximetry 100 100 100 Oxygen Delivery 09/28/24 06:00 09/28/24 06:55 09/28/24 07:50 Temperature 97.9 F 98.1 F Pulse Rate 71 74 69 Respiratory Rate 18 18 Blood Pressure 104/60 109/64 Pulse Oximetry 99 100 Oxygen Delivery 09/28/24 07:55 09/28/24 08:00 09/28/24 08:34 Temperature 98.1 F Pulse Rate 69 72 70 Respiratory Rate 18 Blood Pressure 109/64 Pulse Oximetry 100 Oxygen Delivery 09/28/24 10:00 09/28/24 10:12 09/28/24 10:31 Temperature 98.1 F 98.2 F Pulse Rate 72 65 64 Respiratory Rate 20 18 Blood Pressure 109/63 109/59 L Pulse Oximetry 100 100 Oxygen Delivery 09/28/24 11:20 09/28/24 11:31 09/28/24 11:32 Temperature 97.4 F L 97.4 F L Pulse Rate 70 67 67 Respiratory Rate 20 20 Blood Pressure 106/57 L 106/57 L Pulse Oximetry 100 100 Oxygen Delivery 09/28/24 12:00 09/28/24 12:22 Temperature 97.6 F Pulse Rate 66 62 Respiratory Rate 22 H Blood Pressure 112/65 Pulse Oximetry 100 Oxygen Delivery Intake/Output Intake/Output: Intake & Output 09/25/24 09/26/24 09/27/24 09/28/24 23:59 23:59 23:59 23:59 Intake Total 1908.2 4158.6 2380 Output Total 300 2350 2150 Balance 1608.2 1808.6 230 Meds/Results Medications: Active Medications Generic Name Dose Route Start Last Admin Trade Name Freq PRN Reason Stop Dose Admin Acetaminophen 650 mg 09/26/24 17:39 09/28/24 08:39 Acetaminophen 325 Mg Tablet PO 650 mg Q6H PRN Administration pain Carvedilol 6.25 mg 09/27/24 21:00 09/28/24 08:34 Carvedilol 6.25 Mg Tablet PO 6.25 mg Q12HR OSCAR Administration Furosemide 20 mg 09/27/24 09:00 09/28/24 13:03 Furosemide 20 Mg Tablet PO Not Given DAILY OSCAR Sodium Chloride 1,000 mls @ 125 mls/hr 09/26/24 14:15 09/28/24 07:44 Normal Saline Iv IV CONT Not Given .Q8H OSCAR Sodium Chloride 250 mls @ 30 mls/hr 09/28/24 04:52 09/28/24 06:55 Normal Saline Iv IV CONT 09/28/24 13:11 30 mls/hr .Q8H20M STA Administration Ondansetron HCl 4 mg 09/26/24 14:14 Ondansetron Inj 4 Mg/2 Ml Vial IV PUSH Q4H PRN Nausea Prednisone 60 mg 09/27/24 09:00 09/28/24 08:33 Prednisone 20 Mg Tablet PO 60 mg DAILY OSCAR Administration Radiology Results: ITS Impressions Chest/Abdomen/Pelvis CT 09/26/24 13:56 IMPRESSION: 1. Multiple bilateral pulmonary nodules, largest in the left lower lobe measuring 1.4 cm, suspicious for metastatic disease. Correlate for history of malignancy. 2: Cirrhosis of the liver. 3: Patchy hypoperfusion of the kidneys, suspicious for pyelonephritis. 4: Mild thickening of the proximal spot bowel, suspicious for enteritis. 5: Nonobstructing bilateral nephrolithiasis. Labs Labs: Laboratory Results - last 24 hr 09/26/24 09/28/24 11:53 04:25 WBC 5.0 RBC 1.96 L Hgb 5.7 L* Hct 18.3 L* MCV 93.4 MCH 29.1 MCHC 31.1 L RDW 15.7 H Plt Count 39 L MPV 11.2 H % Immature Plt Fraction 6.3 Sodium 130 L Potassium 3.6 Chloride 101 Carbon Dioxide 22 Anion Gap 7 BUN 37 H D Creatinine 0.84 Estim Creat Clear Calc 83 Estimated GFR > 60 Glucose 151 H Calcium 7.9 L Total Bilirubin 0.5 AST 94 H ALT 95 H Alkaline Phosphatase 54 Total Protein 5.0 L Albumin 2.5 L Blood Type O Positive Antibody Screen Negative Crossmatch See Detail Quality VTE Prophylaxis VTE prophylaxis: mechanical ordered
[2024-09-28 14:10] LABS: Hematocrit 29.8 % (42.0-52.0); Hemoglobin 9.7 g/dL (14.0-18.0); Immature Platelet Fraction Pct 9.8 % (0.9-11.2); Mean Corpuscular HGB Conc 32.6 g/dl (32-36); Mean Corpuscular Volume 95.2 fl (80-100); Mean Platelet Volume 11.8 fl (7.4-10.4); Platelet Count Result 54 k/mm3 (150-375); Red Blood Count 3.13 M/mm3 (4.6-6.20); Red Cell Distribution Width 15.6 % (11.5-14.5); White Blood Count 8.5 K/mm3 (4.5-10.0)
[2024-09-28 15:18] LABS: Hepatitis C RNA, Quant PCR <15 NOT DETECTED IU/mL (NOT DETECTED)
--- NOTE | 2024-09-28 16:25 | PC.NURSE ---
pt transferred to room 342 via wheelchair, with pt, both oriented to new room and environment, reviewed plan of care
[2024-09-28] MEDS: PANTOPRAZOLE 40 MG TABLET PO ×2 (16:37→20:41)
[2024-09-28 20:47] LABS: Hematocrit 25.8 % (42.0-52.0); Hemoglobin 8.6 g/dL (14.0-18.0)
[2024-09-28] MEDS: ACETAMINOPHEN ELIXIR 325 MG/10.15 ML UDC 650 MG PO (21:56)
[2024-09-29 05:33] LABS: Hematocrit 27.7 % (42.0-52.0); Hemoglobin 8.8 g/dL (14.0-18.0); Immature Platelet Fraction Pct 7.4 % (0.9-11.2); Mean Corpuscular HGB Conc 31.8 g/dl (32-36); Mean Corpuscular Hemoglobin 29.8 pg (26-34); Mean Corpuscular Volume 93.9 fl (80-100); Mean Platelet Volume 11.5 fl (7.4-10.4); Platelet Count Result 32 k/mm3 (150-375); Red Blood Count 2.95 M/mm3 (4.6-6.20); Red Cell Distribution Width 15.9 % (11.5-14.5); White Blood Count 3.2 K/mm3 (4.5-10.0)
[2024-09-29 05:48] LABS: Anion Gap 8 mmol/L (4-12); Blood Urea Nitrogen 25 mg/dL (9-20); Calcium 8.4 mg/dL (8.4-10.2); Carbon Dioxide 23 mmol/L (22-30); Chloride 101 mmol/L (98-107); Estimated CRCL calculation 87 ml/min; Estimated Glomerular Filt Rate > 60; Glucose 129 mg/dL (65-110); Potassium 3.7 mmol/L (3.4-5.0); Sodium 132 mmol/L (137-145)
[2024-09-29 06:00] VITALS: BP 104/74; PULSE 64; RESP 20; TEMP 36.2; O2SAT 100
[2024-09-29 08:17] VITALS: PULSE 60
[2024-09-29] MEDS: PANTOPRAZOLE 40 MG TABLET PO ×4 (08:17→20:36)
[2024-09-29] MEDS: carvediloL 6.25 MG TABLET PO ×2 (08:17→20:34)
[2024-09-29] MEDS: FUROSEMIDE 20 MG TABLET PO (08:17)
[2024-09-29] MEDS: predniSONE 20 MG TABLET 60 MG PO (08:18)
--- NOTE | 2024-09-29 13:32 | PM.IMPN ---
Progress Note: A&P Assessment and Plan (1) GI bleed: Qualifiers: GI bleed type/associated pathology: unspecified gastrointestinal hemorrhage type Qualified Code(s): K92.2 - Gastrointestinal hemorrhage, unspecified Code(s): K92.2 - Gastrointestinal hemorrhage, unspecified Status: Acute Assessment and Plan: - CT chest/abdomen/pelvis: 1. Multiple bilateral pulmonary nodules, largest in the left lower lobe measuring 1.4 cm, suspicious for metastatic disease. Correlate for history of malignancy. 2: Cirrhosis of the liver. 3: Patchy hypoperfusion of the kidneys, suspicious for pyelonephritis. 4: Mild thickening of the proximal spot bowel, suspicious for enteritis. 5: Nonobstructing bilateral nephrolithiasis. - Hx of esophageal varices and GI bleed, 3 episodes since Jun - trend H&H. Status post transfuse 2 units of blood 09/28/2024. - stool occult/FABIOLA positive - GI consulted, EGD negative for active bleeding anti HCV reactive, HCV RNA pending Low-dose Coreg) -DC octreotide, pantoprazole 09/27/2024 by GI team after endoscopy - monitor hemodynamic stability Still has black stool Hemoglobin 8.8 (2) Anemia: Qualifiers: Anemia type: iron deficiency Iron deficiency anemia type: chronic blood loss Qualified Code(s): D50.0 - Iron deficiency anemia secondary to blood loss (chronic) Code(s): D64.9 - Anemia, unspecified Status: Acute Assessment and Plan: Status post multiple blood transfusion - Hgb 8.8 - acute on chronic, secondary to GI bleed - transfuse if <7 given abnormal vitals and patient condition (restless, agitated in ED) the patient was transfused 2 PRBC Received 2 units of PRBC 09/28/2024 - monitor H&H (3) Cirrhosis: Qualifiers: Hepatic cirrhosis type: unspecified hepatic cirrhosis Ascites presence: without ascites Qualified Code(s): K74.60 - Unspecified cirrhosis of liver Code(s): K74.60 - Unspecified cirrhosis of liver Status: Acute Assessment and Plan: - GI consulted, Ross HALEY. see the above recommendations. - continue coreg low dose (4) Thrombocytopenia: Code(s): D69.6 - Thrombocytopenia, unspecified Status: Acute Assessment and Plan: Acute on chronic has liver cirrhosis platelet 32 The monitor for now Plan Diet: regular GI Prophylaxis: ppi DVT Prophylaxis: SCDs Lines: Peripheral Code Status: Full code Subjective Date/time seen: 09/29/24 13:32 Interval history: per HPI: 69 y/o M with PMH of nasopharyngeal cancer, liver cancer (s/p chemo), esophageal varices, previous GI bleed, cirrhosis due to hepatitis C with some possible ETOH contribution, and ADHD presents here with concerns for GI bleed. The patient presents here from home via EMS on 09/26 for further evaluation of possible GI bleed. He reports onset of dark tarry stools yesterday. Then developed nausea and vomiting with a coffee-ground appearance today. He reports accompanying agitation, pallor, fatigue, dizziness, shortness of breath, and upper abdominal pain (has since resolved). He denies fever, chills, or body aches. He has a history of GI bleeds and esophageal varices. He is not currently on anticoagulation. 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 Less PET scan 6 weeks ago, does not believe he has any other known metastases. [facility]. Per , who provided majority of the following history due to patient condition, the patient had started immunotherapy (Keytruda) in June 2024 as treatment for the nasopharyngeal cancer. However, 2-3 weeks later he developed dark tarry stools. The Keytruda was discontinued as it was believed this may have been cause for the GI bleed. Patient also has previously underwent radiation for the [employer] cancer, did not tolerate. Then, approximately 2-3 weeks ago he had a 2nd GI bleed. During this episode he had both dark tarry stools and hematemesis. He was admitted to [facility] and underwent an EGD, 2 varices banded. He has a history of 1 prior banding in the summer of 2023. His reports the varices were inflamed and they were banded prophylactically. Initial VS at presentation: 97.8? F, HR 150, RR 14, 144/95, and 96% on RA. ED workup showed: WBC 15.3, hemoglobin 7.3 (11.9 on 10/07/2023), INR 1.4, ABG showed pH 7.5-2/CO2 17.8/O2 108.9/HC03 14.3, sodium 132, creatinine 0.97 and GFR >60, lactic 11.7. CT chest/abdomen/pelvis showed multiple bilateral pulmonary nodules largest in the left lower lobe measuring 1.4 cm suspicious for metastatic disease, cirrhosis of the liver, patchy hypo perfusion of the kidney suspicious for pyelonephritis, mild thickening at the proximal small bowel suspicious for enteritis, and nonobstructing bilateral nephrolithiasis. 09/27/24 Patient was seen and examined at bedside. He is feeling fine. Last bowel movement yesterday and was bloody. Plan for EGD today, Hb 7.6 09/28/24 Patient was seen and examined at bedside. He feels fine. Denies any chest pain, shortness as of breath, abdominal pain, nausea vomiting. EGD negative for active bleeding. Hemoglobin 5.7 today. Patient is receiving 2 units of blood after bowel movement was 2 days ago. Will monitor patient overnight. 09/29/24 Patient was seen and examined at bedside. He is feeling fine the denies any chest pain, shortness the fullness, abdominal pain, nausea vomiting. He is still has black stools. Plate did drop to 32. Hemoglobin 8.8. Concern for his platelet , will keep patient overnight. Plan was discussed with patient and his nurse. Review of Systems Review of Systems: All systems reviewed & are unremarkable except as noted in HPI and below (Limited, patient condition) Exam Const: General: comfortable and no acute distress Other: , male, frail, ill-appearing, +pallor HENMT: Face/Nose/Sinus: Normal nares present Mouth: Yes dry mucous membranes Eyes: General: appearance normal, both eyes and all related structures Sclera: sclerae normal Pupils: Equal, round and reactive pupils present EOM: EOMs intact bilaterally Resp: Effort & Inspection: normal respiratory effort Auscultation: clear to auscultation bilaterally Cardio: Rate: regular rate Rhythm: regular rhythm Other: S1-S2 present without murmur, rub, ectopy GI: Other: Abdomen soft, nondistended. Normoactive bowel sounds in all quadrants. mild tenderness in the upper quadrants. No hepatomegaly or splenomegaly appreciated. Skin: General skin exam: no rashes or lesions noted Wounds: no wounds Other: +pallor Neuro: Cranial nerves: Yes Equal, round and reactive pupils present Speech: normal speech Motor exam (neuro): 5/5 motor strength present throughout Sensory Exam: normal sensation Other: A&O x3, intermittent confusion. Extrem: General: normal to inspection Psych: Mental Status: mental status grossly normal Affect: normal affect Other: Fair insight and judgment at present, pleasant. Objective Data Vital Signs Vital Signs: Vital Signs - 24 hr 09/28/24 14:00 09/28/24 16:09 09/28/24 20:44 Temperature 98.1 F Pulse Rate 74 68 67 Respiratory Rate 20 Blood Pressure 124/73 Pulse Oximetry 100 Oxygen Delivery 09/28/24 21:48 09/28/24 23:16 09/29/24 06:00 Temperature 97.4 F L 97.2 F L Pulse Rate 67 64 Respiratory Rate 20 20 Blood Pressure 121/73 104/74 Pulse Oximetry 100 100 Oxygen Delivery Room Air 09/29/24 08:17 09/29/24 08:17 Temperature Pulse Rate 60 Respiratory Rate Blood Pressure Pulse Oximetry Oxygen Delivery Room Air Intake/Output Intake/Output: Intake & Output 09/26/24 09/27/24 09/28/24 09/29/24 23:59 23:59 23:59 23:59 Intake Total 1908.2 4158.6 2830 1080 Output Total 300 2350 2500 Balance 1608.2 1808.6 330 1080 Meds/Results Medications: Active Medications Generic Name Dose Route Start Last Admin Trade Name Freq PRN Reason Stop Dose Admin Acetaminophen 650 mg 09/28/24 20:41 09/28/24 21:56 Acetaminophen Elixir 325 Mg/10.15 Ml Udc PO 650 mg Q6H PRN Administration pain Carvedilol 6.25 mg 09/27/24 21:00 09/29/24 08:17 Carvedilol 6.25 Mg Tablet PO 6.25 mg Q12HR OSCAR Administration Furosemide 20 mg 09/27/24 09:00 09/29/24 08:17 Furosemide 20 Mg Tablet PO 20 mg DAILY OSCAR Administration Sodium Chloride 1,000 mls @ 125 mls/hr 09/26/24 14:15 09/28/24 07:44 Normal Saline Iv IV CONT Not Given .Q8H OSCAR Ondansetron HCl 4 mg 09/26/24 14:14 Ondansetron Inj 4 Mg/2 Ml Vial IV PUSH Q4H PRN Nausea Pantoprazole Sodium 40 mg 09/28/24 17:00 09/29/24 12:42 Pantoprazole 40 Mg Tablet PO 40 mg QID OSCAR Administration Prednisone 60 mg 09/27/24 09:00 09/29/24 08:18 Prednisone 20 Mg Tablet PO 60 mg DAILY OSCAR Administration Radiology Results: ITS Impressions Chest/Abdomen/Pelvis CT 09/26/24 13:56 IMPRESSION: 1. Multiple bilateral pulmonary nodules, largest in the left lower lobe measuring 1.4 cm, suspicious for metastatic disease. Correlate for history of malignancy. 2: Cirrhosis of the liver. 3: Patchy hypoperfusion of the kidneys, suspicious for pyelonephritis. 4: Mild thickening of the proximal spot bowel, suspicious for enteritis. 5: Nonobstructing bilateral nephrolithiasis. Labs Labs: Laboratory Results - last 24 hr 09/26/24 09/28/24 09/28/24 16:53 14:00 20:41 WBC 8.5 RBC 3.13 L Hgb 9.7 L D 8.6 L Hct 29.8 L 25.8 L MCV 95.2 MCH 31.0 D MCHC 32.6 RDW 15.6 H Plt Count 54 L MPV 11.8 H % Immature Plt Fraction 9.8 Sodium Potassium Chloride Carbon Dioxide Anion Gap BUN Creatinine Estim Creat Clear Calc Estimated GFR Glucose Calcium HCV RNA (PCR) IUs/ml <15 not detected HCV RNA PCR log IUs/ml <1.18 not detected 09/29/24 05:16 WBC 3.2 L RBC 2.95 L Hgb 8.8 L Hct 27.7 L MCV 93.9 MCH 29.8 MCHC 31.8 L RDW 15.9 H Plt Count 32 L MPV 11.5 H % Immature Plt Fraction 7.4 Sodium 132 L Potassium 3.7 Chloride 101 Carbon Dioxide 23 Anion Gap 8 BUN 25 H D Creatinine 0.80 Estim Creat Clear Calc 87 Estimated GFR > 60 Glucose 129 H Calcium 8.4 HCV RNA (PCR) IUs/ml HCV RNA PCR log IUs/ml Quality VTE Prophylaxis VTE prophylaxis: mechanical ordered
[2024-09-29 14:00] VITALS: BP 121/79; PULSE 72; RESP 18; TEMP 36.6; O2SAT 99
[2024-09-29 14:57] LABS: Hematocrit 29.1 % (42.0-52.0); Hemoglobin 9.5 g/dL (14.0-18.0)
[2024-09-29 20:34] VITALS: PULSE 60
[2024-09-29 21:05] LABS: Hematocrit 26.9 % (42.0-52.0); Hemoglobin 8.8 g/dL (14.0-18.0)
[2024-09-29 21:29] VITALS: O2SAT 98
[2024-09-29 22:06] VITALS: BP 115/60; PULSE 72; RESP 20; TEMP 36.7; O2SAT 100
[2024-09-29] MEDS: diphenhydrAMINE HCl CAP 25 MG CAPSULE PO (23:25)
[2024-09-30] VITALS (8 sets, daily range): BP systolic 101–116; BP diastolic 51–83; PULSE 58–78; RESP 16–20; TEMP 36.1–36.8; O2SAT 98–100
[2024-09-30 05:49] LABS: Hemoglobin 7.9 g/dL (14.0-18.0); Immature Platelet Fraction Pct 7.1 % (0.9-11.2); Mean Corpuscular HGB Conc 31.6 g/dl (32-36); Mean Corpuscular Hemoglobin 29.9 pg (26-34); Mean Corpuscular Volume 94.7 fl (80-100); Mean Platelet Volume 11.5 fl (7.4-10.4); Red Blood Count 2.64 M/mm3 (4.6-6.20); Red Cell Distribution Width 15.5 % (11.5-14.5); White Blood Count 2.2 K/mm3 (4.5-10.0)
[2024-09-30 05:50] LABS: Platelet Count Result 31 k/mm3 (150-375)
[2024-09-30 06:01] LABS: Alanine Aminotransferase 76 U/L (6-50); Albumin Level 2.8 g/dL (3.5-5.1); Alkaline Phosphatase 61 U/L (38-126); Anion Gap 7 mmol/L (4-12); Aspartate Amino Transferase 46 U/L (17-59); Blood Urea Nitrogen 22 mg/dL (9-20); Calcium 8.4 mg/dL (8.4-10.2); Carbon Dioxide 26 mmol/L (22-30); Chloride 100 mmol/L (98-107); Estimated CRCL calculation 75 ml/min; Estimated Glomerular Filt Rate > 60; Glucose 109 mg/dL (65-110); Potassium 3.9 mmol/L (3.4-5.0); Sodium 133 mmol/L (137-145)
[2024-09-30] MEDS: predniSONE 20 MG TABLET 60 MG PO (08:03)
[2024-09-30] MEDS: PANTOPRAZOLE 40 MG TABLET PO ×4 (08:04→21:29)
[2024-09-30] MEDS: FUROSEMIDE 20 MG TABLET PO (08:04)
[2024-09-30] MEDS: carvediloL 6.25 MG TABLET PO ×2 (08:04→21:29)
--- NOTE | 2024-09-30 12:19 | P.PNIM_ITS ---
Progress Note: A&P Assessment and Plan (1) GI bleed: Qualifiers: GI bleed type/associated pathology: unspecified gastrointestinal hemorrhage type Qualified Code(s): K92.2 - Gastrointestinal hemorrhage, unspecified Code(s): K92.2 - Gastrointestinal hemorrhage, unspecified Status: Acute Assessment and Plan: - CT chest/abdomen/pelvis: 1. Multiple bilateral pulmonary nodules, largest in the left lower lobe measuring 1.4 cm, suspicious for metastatic disease. Correlate for history of malignancy. 2: Cirrhosis of the liver. 3: Patchy hypoperfusion of the kidneys, suspicious for pyelonephritis. 4: Mild thickening of the proximal spot bowel, suspicious for enteritis. 5: Nonobstructing bilateral nephrolithiasis. - Hx of esophageal varices and GI bleed, 3 episodes since Jun - trend H&H. Status post transfuse 2 units of blood 09/28/2024. 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 Low-dose Coreg) -DC octreotide, pantoprazole 09/27/2024 by GI team after endoscopy - monitor hemodynamic stability Still has black stool Hemoglobin 7.9 (2) Anemia: Qualifiers: Anemia type: iron deficiency Iron deficiency anemia type: chronic blood loss Qualified Code(s): D50.0 - Iron deficiency anemia secondary to blood loss (chronic) Code(s): D64.9 - Anemia, unspecified Status: Acute Assessment and Plan: Status post multiple blood transfusion - Hgb 7.9 - acute on chronic, secondary to GI bleed - transfuse if <7 given abnormal vitals and patient condition (restless, agitated in ED) the patient was transfused 2 PRBC Received 2 units of PRBC 09/28/2024 - monitor H&H (3) Cirrhosis: Qualifiers: Hepatic cirrhosis type: unspecified hepatic cirrhosis Ascites presence: without ascites Qualified Code(s): K74.60 - Unspecified cirrhosis of liver Code(s): K74.60 - Unspecified cirrhosis of liver Status: Acute Assessment and Plan: - GI consulted, Ross HALEY. see the above recommendations. - continue coreg low dose (4) Thrombocytopenia: Code(s): D69.6 - Thrombocytopenia, unspecified Status: Acute Assessment and Plan: Acute on chronic has liver cirrhosis platelet 30 Plan to transfuse 1 unit of Plt The monitor for now Plan Diet: regular GI Prophylaxis: ppi DVT Prophylaxis: SCDs Lines: Peripheral Code Status: Full code Subjective Date/time seen: 09/30/24 12:19 Interval history: per HPI: 69 y/o M with PMH of nasopharyngeal cancer, liver cancer (s/p chemo), esophageal varices, previous GI bleed, cirrhosis due to hepatitis C with some possible ETOH contribution, and ADHD presents here with concerns for GI bleed. The patient presents here from home via EMS on 09/26 for further evaluation of possible GI bleed. He reports onset of dark tarry stools yesterday. Then developed nausea and vomiting with a coffee-ground appearance today. He reports accompanying agitation, pallor, fatigue, dizziness, shortness of breath, and upper abdominal pain (has since resolved). He denies fever, chills, or body aches. He has a history of GI bleeds and esophageal varices. He is not currently on anticoagulation. 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 Less PET scan 6 weeks ago, does not believe he has any other known metastases. He receives his care through the [facility]. Per , who provided majority of the following history due to patient condition, the patient had started immunotherapy (Keytruda) in June 2024 as treatment for the nasopharyngeal cancer. However, 2-3 weeks later he developed dark tarry stools. The Keytruda was discontinued as it was believed this may have been cause for the GI bleed. Patient also has previously underwent radiation for the [employer] cancer, did not tolerate. Then, approximately 2-3 weeks ago he had a 2nd GI bleed. During this episode he had both dark tarry stools and hematemesis. He was admitted to the [facility] and underwent an EGD, 2 varices banded. He has a history of 1 prior banding in the summer of 2023. His reports the varices were inflamed and they were banded prophylactically. Initial VS at presentation: 97.8? F, HR 150, RR 14, 144/95, and 96% on RA. ED workup showed: WBC 15.3, hemoglobin 7.3 (11.9 on 10/07/2023), INR 1.4, ABG showed pH 7.5-2/CO2 17.8/O2 108.9/HC03 14.3, sodium 132, creatinine 0.97 and GFR >60, lactic 11.7. CT chest/abdomen/pelvis showed multiple bilateral pulmonary nodules largest in the left lower lobe measuring 1.4 cm suspicious for metastatic disease, cirrhosis of the liver, patchy hypo perfusion of the kidney suspicious for pyelonephritis, mild thickening at the proximal small bowel suspicious for enteritis, and nonobstructing bilateral nephrolithiasis. 09/27/24 Patient was seen and examined at bedside. He is feeling fine. Last bowel movement yesterday and was bloody. Plan for EGD today, Hb 7.6 09/28/24 Patient was seen and examined at bedside. He feels fine. Denies any chest pain, shortness as of breath, abdominal pain, nausea vomiting. EGD negative for active bleeding. Hemoglobin 5.7 today. Patient is receiving 2 units of blood after bowel movement was 2 days ago. Will monitor patient overnight. 09/29/24 Patient was seen and examined at bedside. He is feeling fine the denies any chest pain, shortness the fullness, abdominal pain, nausea vomiting. He is still has black stools. Plate did drop to 32. Hemoglobin 8.8. Concern for his platelet , will keep patient overnight. Plan was discussed with patient and his nurse. 09/30/24 Patient was seen and examined at bedside. He feels fine. Denies any chest pain, shortness of breat, Abd pain, nausea vomiting. Still has black stool but improving. Hemoglobin dropped to 7.9, platelet 31. Will monitor H&H. Will transfuse 1 unit of platelets. Review of Systems Review of Systems: All systems reviewed & are unremarkable except as noted in HPI and below (Limited, patient condition) Exam Const: General: comfortable and no acute distress Other: , male, frail, ill-appearing, +pallor HENMT: Face/Nose/Sinus: Normal nares present Mouth: Yes dry mucous membranes Eyes: General: appearance normal, both eyes and all related structures Sclera: sclerae normal Pupils: Equal, round and reactive pupils present EOM: EOMs intact bilaterally Resp: Effort & Inspection: normal respiratory effort Auscultation: clear to auscultation bilaterally Cardio: Rate: regular rate Rhythm: regular rhythm Other: S1-S2 present without murmur, rub, ectopy GI: Other: Abdomen soft, nondistended. Normoactive bowel sounds in all quadrants. mild tenderness in the upper quadrants. No hepatomegaly or splenomegaly appreciated. Skin: General skin exam: no rashes or lesions noted Wounds: no wounds Other: +pallor Neuro: Cranial nerves: Yes Equal, round and reactive pupils present Speech: normal speech Motor exam (neuro): 5/5 motor strength present throughout Sensory Exam: normal sensation Other: A&O x3, intermittent confusion. Extrem: General: normal to inspection Psych: Mental Status: mental status grossly normal Affect: normal affect Other: Fair insight and judgment at present, pleasant. Objective Data Vital Signs Vital Signs: Vital Signs - 24 hr 09/29/24 14:00 09/29/24 20:00 09/29/24 20:34 Temperature 97.8 F Pulse Rate 72 60 Respiratory Rate 18 Blood Pressure 121/79 Pulse Oximetry 99 Oxygen Delivery Room Air Fraction of Inspired Oxygen 09/29/24 21:29 09/29/24 22:06 09/30/24 06:00 Temperature 98.0 F 97.0 F L Pulse Rate 72 58 L Respiratory Rate 20 20 Blood Pressure 115/60 106/51 L Pulse Oximetry 98 100 99 Oxygen Delivery Room Air Fraction of Inspired Oxygen 21 09/30/24 08:00 09/30/24 08:04 Temperature Pulse Rate 66 Respiratory Rate Blood Pressure Pulse Oximetry Oxygen Delivery Room Air Fraction of Inspired Oxygen Intake/Output Intake/Output: Intake & Output 09/27/24 09/28/24 09/29/24 09/30/24 23:59 23:59 23:59 23:59 Intake Total 4158.6 2830 2740 1180 Output Total 2350 2500 Balance 1808.6 330 2740 1180 Meds/Results Medications: Active Medications Generic Name Dose Route Start Last Admin Trade Name Freq PRN Reason Stop Dose Admin Carvedilol 6.25 mg 09/27/24 21:00 09/30/24 08:04 Carvedilol 6.25 Mg Tablet PO 6.25 mg Q12HR OSCAR Administration Diphenhydramine HCl 25 mg 09/29/24 23:07 09/29/24 23:25 Diphenhydramine Hcl Cap 25 Mg Capsule PO 25 mg Q8H PRN Administration Itching Furosemide 20 mg 09/27/24 09:00 09/30/24 08:04 Furosemide 20 Mg Tablet PO 20 mg DAILY OSCAR Administration Sodium Chloride 1,000 mls @ 125 mls/hr 09/26/24 14:15 09/28/24 07:44 Normal Saline Iv IV CONT Not Given .Q8H OSCAR Sodium Chloride 250 mls @ 30 mls/hr 09/30/24 10:18 Normal Saline Iv IV CONT 09/30/24 18:37 .Q8H20M STA Ondansetron HCl 4 mg 09/26/24 14:14 Ondansetron Inj 4 Mg/2 Ml Vial IV PUSH Q4H PRN Nausea Pantoprazole Sodium 40 mg 09/28/24 17:00 09/30/24 08:04 Pantoprazole 40 Mg Tablet PO 40 mg QID OSCAR Administration Prednisone 60 mg 09/27/24 09:00 09/30/24 08:03 Prednisone 20 Mg Tablet PO 60 mg DAILY OSCAR Administration Radiology Results: ITS Impressions Chest/Abdomen/Pelvis CT 09/26/24 13:56 IMPRESSION: 1. Multiple bilateral pulmonary nodules, largest in the left lower lobe measuring 1.4 cm, suspicious for metastatic disease. Correlate for history of malignancy. 2: Cirrhosis of the liver. 3: Patchy hypoperfusion of the kidneys, suspicious for pyelonephritis. 4: Mild thickening of the proximal spot bowel, suspicious for enteritis. 5: Nonobstructing bilateral nephrolithiasis. Labs Labs: Laboratory Results - last 24 hr 09/29/24 09/29/24 09/30/24 14:49 20:54 05:19 WBC 2.2 L RBC 2.64 L Hgb 9.5 L 8.8 L 7.9 L Hct 29.1 L 26.9 L 25.0 L MCV 94.7 MCH 29.9 MCHC 31.6 L RDW 15.5 H Plt Count 31 L MPV 11.5 H % Immature Plt Fraction 7.1 Sodium 133 L Potassium 3.9 Chloride 100 Carbon Dioxide 26 Anion Gap 7 BUN 22 H Creatinine 0.78 Estim Creat Clear Calc 75 Estimated GFR > 60 Glucose 109 Calcium 8.4 Total Bilirubin 1.0 AST 46 ALT 76 H Alkaline Phosphatase 61 Total Protein 5.0 L Albumin 2.8 L Blood Type 09/30/24 10:33 WBC RBC Hgb Hct MCV MCH MCHC RDW Plt Count MPV % Immature Plt Fraction Sodium Potassium Chloride Carbon Dioxide Anion Gap BUN Creatinine Estim Creat Clear Calc Estimated GFR Glucose Calcium Total Bilirubin AST ALT Alkaline Phosphatase Total Protein Albumin Blood Type O Positive Quality VTE Prophylaxis VTE prophylaxis: mechanical ordered
[2024-09-30] MEDS: diphenhydrAMINE HCl CAP 25 MG CAPSULE PO (21:30)
[2024-10-01 05:50] LABS: Eosinophils Percent Auto 0.5 % (0-4.4); Hematocrit 23.5 % (42.0-52.0); Hemoglobin 7.5 g/dL (14.0-18.0); Immature Granulocyte Absolute 0.01 K/mm3 (0.00-0.031); Immature Granulocyte Percent A 0.5 % (0-0.5); Immature Platelet Fraction Pct 6.1 % (0.9-11.2); Lymphocytes Absolute Auto 0.25 K/mm3 (0.9-3.2); Lymphocytes Percent Auto 12.8 % (18.3-44.2); Mean Corpuscular HGB Conc 31.9 g/dl (32-36); Mean Platelet Volume 11.5 fl (7.4-10.4); Monocytes Absolute Auto 0.2 K/mm3 (0.1-0.6); Monocytes Percent Auto 11.2 % (2.6-8.5); Neutrophils Absolute Auto 1.5 K/mm3 (1.3-6.7); Platelet Count Result 38 k/mm3 (150-375); Red Cell Distribution Width 15.3 % (11.5-14.5)
[2024-10-01 05:57] LABS: Alanine Aminotransferase 58 U/L (6-50); Albumin Level 2.7 g/dL (3.5-5.1); Alkaline Phosphatase 62 U/L (38-126); Anion Gap 7 mmol/L (4-12); Aspartate Amino Transferase 32 U/L (17-59); Bilirubin,Total 0.6 mg/dL (0.2-1.3); Blood Urea Nitrogen 19 mg/dL (9-20); Calcium 8.3 mg/dL (8.4-10.2); Carbon Dioxide 25 mmol/L (22-30); Chloride 100 mmol/L (98-107); Estimated CRCL calculation 75 ml/min; Estimated Glomerular Filt Rate > 60; Glucose 98 mg/dL (65-110); Potassium 3.8 mmol/L (3.4-5.0); Sodium 132 mmol/L (137-145)
[2024-10-01 06:00] VITALS: BP 113/73; PULSE 61; RESP 20; TEMP 36.6; O2SAT 100
[2024-10-01] MEDS: FUROSEMIDE 20 MG TABLET PO (07:50)
[2024-10-01] MEDS: PANTOPRAZOLE 40 MG TABLET PO ×4 (07:50→20:41)
[2024-10-01 07:51] VITALS: PULSE 70
[2024-10-01] MEDS: carvediloL 6.25 MG TABLET PO ×2 (07:51→20:41)
[2024-10-01] MEDS: predniSONE 20 MG TABLET 40 MG PO (07:51)
--- NOTE | 2024-10-01 10:56 | PM.IMPN ---
Progress Note: A&P Assessment and Plan (1) GI bleed: Qualifiers: GI bleed type/associated pathology: unspecified gastrointestinal hemorrhage type Qualified Code(s): K92.2 - Gastrointestinal hemorrhage, unspecified Code(s): K92.2 - Gastrointestinal hemorrhage, unspecified Status: Acute Assessment and Plan: - CT chest/abdomen/pelvis: 1. Multiple bilateral pulmonary nodules, largest in the left lower lobe measuring 1.4 cm, suspicious for metastatic disease. Correlate for history of malignancy. 2: Cirrhosis of the liver. 3: Patchy hypoperfusion of the kidneys, suspicious for pyelonephritis. 4: Mild thickening of the proximal spot bowel, suspicious for enteritis. 5: Nonobstructing bilateral nephrolithiasis. - Hx of esophageal varices and GI bleed, 3 episodes since Jun - trend H&H. Status post transfuse 2 units of blood 09/28/2024. 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 Low-dose Coreg) -DC octreotide, pantoprazole 09/27/2024 by GI team after endoscopy - monitor hemodynamic stability no more bleeding reported Hemoglobin 7.5 today (2) Anemia: Qualifiers: Anemia type: iron deficiency Iron deficiency anemia type: chronic blood loss Qualified Code(s): D50.0 - Iron deficiency anemia secondary to blood loss (chronic) Code(s): D64.9 - Anemia, unspecified Status: Acute Assessment and Plan: Status post multiple blood transfusion - Hgb 7.5 - acute on chronic, secondary to GI bleed - transfuse if <7 given abnormal vitals and patient condition (restless, agitated in ED) the patient was transfused 2 PRBC Received 2 units of PRBC 09/28/2024 - monitor H&H consulted Oncology (3) Cirrhosis: Qualifiers: Ascites presence: without ascites Hepatic cirrhosis type: unspecified hepatic cirrhosis Qualified Code(s): K74.60 - Unspecified cirrhosis of liver Code(s): K74.60 - Unspecified cirrhosis of liver Status: Acute Assessment and Plan: - GI consulted, Ross HALEY. see the above recommendations. - continue coreg low dose (4) Thrombocytopenia: Code(s): D69.6 - Thrombocytopenia, unspecified Status: Acute Assessment and Plan: Acute on chronic has liver cirrhosis platelet 38 transfused 1 unit of Plt 09/30/24 consult hematology/oncology (5) Hyponatremia: Code(s): E87.1 - Hypo-osmolality and hyponatremia Status: Acute Assessment and Plan: mild monitor for now Plan Diet: regular GI Prophylaxis: ppi DVT Prophylaxis: SCDs Lines: Peripheral Code Status: Full code Subjective Date/time seen: 10/01/24 10:56 Interval history: per HPI: 69 y/o M with PMH of nasopharyngeal cancer, liver cancer (s/p chemo), esophageal varices, previous GI bleed, cirrhosis due to hepatitis C with some possible ETOH contribution, and ADHD presents here with concerns for GI bleed. The patient presents here from home via EMS on 09/26 for further evaluation of possible GI bleed. He reports onset of dark tarry stools yesterday. Then developed nausea and vomiting with a coffee-ground appearance today. He reports accompanying agitation, pallor, fatigue, dizziness, shortness of breath, and upper abdominal pain (has since resolved). He denies fever, chills, or body aches. He has a history of GI bleeds and esophageal varices. He is not currently on anticoagulation. 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 Less PET scan 6 weeks ago, does not believe he has any other known metastases. He receives his care through [facility]. Per , who provided majority of the following history due to patient condition, the patient had started immunotherapy (Keytruda) in June 2024 as treatment for the nasopharyngeal cancer. However, 2-3 weeks later he developed dark tarry stools. The Keytruda was discontinued as it was believed this may have been cause for the GI bleed. Patient also has previously underwent radiation for the [employer] cancer, did not tolerate. Then, approximately 2-3 weeks ago he had a 2nd GI bleed. During this episode he had both dark tarry stools and hematemesis. [facility] was [facility] and underwent an EGD, 2 varices banded. He has a history of 1 prior banding in the summer of 2023. His reports the varices were inflamed and they were banded prophylactically. Initial VS at presentation: 97.8? F, HR 150, RR 14, 144/95, and 96% on RA. ED workup showed: WBC 15.3, hemoglobin 7.3 (11.9 on 10/07/2023), INR 1.4, ABG showed pH 7.5-2/CO2 17.8/O2 108.9/HC03 14.3, sodium 132, creatinine 0.97 and GFR >60, lactic 11.7. CT chest/abdomen/pelvis showed multiple bilateral pulmonary nodules largest in the left lower lobe measuring 1.4 cm suspicious for metastatic disease, cirrhosis of the liver, patchy hypo perfusion of the kidney suspicious for pyelonephritis, mild thickening at the proximal small bowel suspicious for enteritis, and nonobstructing bilateral nephrolithiasis. 09/27/24 Patient was seen and examined at bedside. He is feeling fine. Last bowel movement yesterday and was bloody. Plan for EGD today, Hb 7.6 09/28/24 Patient was seen and examined at bedside. He feels fine. Denies any chest pain, shortness as of breath, abdominal pain, nausea vomiting. EGD negative for active bleeding. Hemoglobin 5.7 today. Patient is receiving 2 units of blood after bowel movement was 2 days ago. Will monitor patient overnight. 09/29/24 Patient was seen and examined at bedside. He is feeling fine the denies any chest pain, shortness the fullness, abdominal pain, nausea vomiting. He is still has black stools. Plate did drop to 32. Hemoglobin 8.8. Concern for his platelet , will keep patient overnight. Plan was discussed with patient and his nurse. 09/30/24 Patient was seen and examined at bedside. He feels fine. Denies any chest pain, shortness of breat, Abd pain, nausea vomiting. Still has black stool but improving. Hemoglobin dropped to 7.9, platelet 31. Will monitor H&H. Will transfuse 1 unit of platelets. 10/01/24 Patient was in agreement with that. He is feeling fine. He complained of difficulty Breathing with activity. Denies any chest pain, abdominal pain, nausea vomiting. His stool is getting back to brown colored. Still has pancytopenia. Platelets only improved to 38 after transfusion. Consult Oncology Review of Systems Review of Systems: All systems reviewed & are unremarkable except as noted in HPI and below (Limited, patient condition) Exam Const: General: comfortable and no acute distress Other: , male, frail, ill-appearing, +pallor HENMT: Face/Nose/Sinus: Normal nares present Mouth: Yes dry mucous membranes Eyes: General: appearance normal, both eyes and all related structures Sclera: sclerae normal Pupils: Equal, round and reactive pupils present EOM: EOMs intact bilaterally Resp: Effort & Inspection: normal respiratory effort Auscultation: clear to auscultation bilaterally Cardio: Rate: regular rate Rhythm: regular rhythm Other: S1-S2 present without murmur, rub, ectopy GI: Other: Abdomen soft, nondistended. Normoactive bowel sounds in all quadrants. mild tenderness in the upper quadrants. No hepatomegaly or splenomegaly appreciated. Skin: General skin exam: no rashes or lesions noted Wounds: no wounds Other: +pallor Neuro: Cranial nerves: Yes Equal, round and reactive pupils present Speech: normal speech Motor exam (neuro): 5/5 motor strength present throughout Sensory Exam: normal sensation Other: A&O x3, intermittent confusion. Extrem: General: normal to inspection Psych: Mental Status: mental status grossly normal Affect: normal affect Other: Fair insight and judgment at present, pleasant. Objective Data Vital Signs Vital Signs: Vital Signs - 24 hr 09/30/24 12:47 09/30/24 13:02 09/30/24 14:00 Temperature 97.6 F 98.1 F 97.1 F L Pulse Rate 73 74 72 Respiratory Rate 16 18 20 Blood Pressure 116/83 108/61 101/69 Pulse Oximetry 98 100 98 Oxygen Delivery 09/30/24 14:02 09/30/24 15:02 09/30/24 20:00 Temperature 97.1 F L 98.2 F Pulse Rate 72 77 Respiratory Rate 16 16 Blood Pressure 101/69 114/72 Pulse Oximetry 98 100 Oxygen Delivery Room Air 09/30/24 22:00 10/01/24 06:00 10/01/24 07:44 Temperature 97.8 F 97.9 F Pulse Rate 78 61 Respiratory Rate 20 20 Blood Pressure 115/67 113/73 Pulse Oximetry 98 100 Oxygen Delivery Room Air 10/01/24 07:51 Temperature Pulse Rate 70 Respiratory Rate Blood Pressure Pulse Oximetry Oxygen Delivery Intake/Output Intake/Output: Intake & Output 09/28/24 09/29/24 09/30/24 10/01/24 23:59 23:59 23:59 23:59 Intake Total 2830 2740 1897 1776 Output Total 2500 Balance 330 2740 1897 1776 Meds/Results Medications: Active Medications Generic Name Dose Route Start Last Admin Trade Name Freq PRN Reason Stop Dose Admin Carvedilol 6.25 mg 09/27/24 21:00 10/01/24 07:51 Carvedilol 6.25 Mg Tablet PO 6.25 mg Q12HR OSCAR Administration Diphenhydramine HCl 25 mg 09/29/24 23:07 09/30/24 21:30 Diphenhydramine Hcl Cap 25 Mg Capsule PO 25 mg Q8H PRN Administration Itching Furosemide 20 mg 09/27/24 09:00 10/01/24 07:50 Furosemide 20 Mg Tablet PO 20 mg DAILY OSCAR Administration Sodium Chloride 1,000 mls @ 125 mls/hr 09/26/24 14:15 09/28/24 07:44 Normal Saline Iv IV CONT Not Given .Q8H OSCAR Ondansetron HCl 4 mg 09/26/24 14:14 Ondansetron Inj 4 Mg/2 Ml Vial IV PUSH Q4H PRN Nausea Pantoprazole Sodium 40 mg 09/28/24 17:00 10/01/24 07:50 Pantoprazole 40 Mg Tablet PO 40 mg QID OSCAR Administration Prednisone 40 mg 10/01/24 09:00 10/01/24 07:51 Prednisone 20 Mg Tablet PO 40 mg DAILY OSCAR Administration Radiology Results: ITS Impressions Chest/Abdomen/Pelvis CT 09/26/24 13:56 IMPRESSION: 1. Multiple bilateral pulmonary nodules, largest in the left lower lobe measuring 1.4 cm, suspicious for metastatic disease. Correlate for history of malignancy. 2: Cirrhosis of the liver. 3: Patchy hypoperfusion of the kidneys, suspicious for pyelonephritis. 4: Mild thickening of the proximal spot bowel, suspicious for enteritis. 5: Nonobstructing bilateral nephrolithiasis. Venous Doppler Study 09/30/24 16:34 IMPRESSION: No upper extremity deep venous thrombosis. Labs Labs: Laboratory Results - last 24 hr 09/30/24 10/01/24 10:33 05:26 WBC 2.0 L RBC 2.50 L Hgb 7.5 L Hct 23.5 L MCV 94.0 MCH 30.0 MCHC 31.9 L RDW 15.3 H Plt Count 38 L MPV 11.5 H Immature Gran % (Auto) 0.5 Neut % (Auto) 75.0 H Lymph % (Auto) 12.8 L [place] % (Auto) 11.2 H Eos % (Auto) 0.5 Baso % (Auto) 0.0 L Lymph # (Auto) 0.25 L [place] # (Auto) 0.2 Eos # (Auto) 0.0 Baso # (Auto) 0.0 Abs Immat Gran (auto) 0.01 Absolute Neuts (auto) 1.5 Absolute Nucleated RBC 0.000 Nucleated RBC % 0.0 % Immature Plt Fraction 6.1 Sodium 132 L Potassium 3.8 Chloride 100 Carbon Dioxide 25 Anion Gap 7 BUN 19 Creatinine 0.76 Estim Creat Clear Calc 75 Estimated GFR > 60 Glucose 98 Calcium 8.3 L Total Bilirubin 0.6 AST 32 ALT 58 H Alkaline Phosphatase 62 Total Protein 5.0 L Albumin 2.7 L Blood Type O Positive Quality VTE Prophylaxis VTE prophylaxis: mechanical ordered
--- NOTE | 2024-10-01 13:37 | PCNFU ---
Nutrition Follow-Up Complete: Inadequate oral intake related to swallowing issues as evidenced by NPO, pt report Textures appropriate for patient needs - Goal is being met with puree Goal: Pt current nutrition is Regular, Puree diet, thin liquids. Nutrition recommendation: No nutrition recommendations. Pt can drink his Very High Calorie Boost from home as needed. Declines house Ensure Enlive. Last recorded weight is 60.4 kg. Bowel Motility: +2 BMs 4/6 Labs Reviewed: Hgb 7.5, Hct 23.5, Alb 2.7, Na 132, Meds Note d: Lasix, predisone Skin: WNL Additional Notes: Per patient, swallowing is better. Intakes on puree 75-100% and he has not needed to drink his Boost. Prior to coming to hospital he was not eating any solids and only drinking Boost. Continue current orders. Monitoring intakes, weights, labs, swallowing ability, plan of care Follow up in 3 day
[2024-10-01 14:00] VITALS: BP 106/74; PULSE 86; RESP 16; TEMP 36.3; O2SAT 98
--- NOTE | 2024-10-01 14:26 | PCPTNOTE ---
Attempted PT evaluation. Pt refused stating he is independent in the room and has no therapy needs.
--- NOTE | 2024-10-01 18:33 | P.CONONC_ITS ---
Assessment and Plan Assessment and plan (1) Pancytopenia: Code(s): D61.818 - Other pancytopenia Status: Acute Assessment and Plan: This is the 61-year-old male with complicated history including hepatitis-C and liver cirrhosis with diagnosis of liver cancer status post TACE treatment in 2019. 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 He received 1 dose of Keytruda for likely metastatic cancer in June 2024 and further treatment was discontinued with GI bleed. He came into the hospital with GI bleed. EGD findings noted. Labs showed iron deficiency. His pancytopenia secondary to liver cirrhosis. No need for further testing including bone marrow biopsy. Patient has been followed by Dr. Feliciano at [place] for nasopharyngeal cancer and liver cancer. I have recommended to follow-up with him for further management given the findings on the CT scan. Patient will receive blood transfusion on as-needed basis. He will start iron replacement on discharge as well. HPI Data of Consult Date/Time: 10/01/24 18:33 Requesting Physician: Ksenia Enamorado MD Primary Care Provider: Derrell Barrow MD Consult Narrative Narrative: Ron Coy is a 69 year old male with history of liver cancer status post taste treatment in 2019 along with history of nasopharyngeal cancer diagnosed 18 months ago status post radiation therapy in July 2023. He received 1 treatment with Keytruda likely for metastatic cancer in June 2024 and further treatment was discontinued due to GI bleed. Patient also has history of liver cirrhosis secondary to hepatitis-C and and possible alcohol contribution. He came into the hospital with possible GI bleed with dark tarry stools. He was having some nausea vomiting with coffee-ground appearance. Labs showed hemoglobin of 7.3. [place] [address] with WBC of 2.0. Labs showed iron deficiency as well. CT scan chest abdomen and pelvis was performed that showed multiple bilateral pulmonary nodules suspicious for metastatic disease along with liver cirrhosis. EGD was performed that showed nonbleeding esophageal varices and gastritis. He denies any further bleeding. Review of Systems 2 Review of Systems: Review of system as per HPI otherwise negative [facility] Past Medical History Medical History Anemia Hepatitis C Liver cancer s/p chemo Alcohol abuse, in remission Cessation 15 years ago as of 2024 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 Esophageal varices ADHD GI bleed Social History Social History Smoking status: Former smoker Alcohol intake: former Substance use: current Substance use type: former substance user and marijuana Other substance usage details: a little bit of everything out there Marijuana capsule, suppository, oil Do You Feel Safe in your Home?: Yes Lack of Transportation: No Lack of Food: Never True Current Housing: I Have Housing Concerned About Future Housing: No Difficulty Paying Gas/Electric Bills: No Difficulty Paying for Meds: No Currently Unemployed: No Education: Trade/Vocational Certificate Difficulty w/ Childcare or Family Care: No Spiritual care concerns: No Meds Home Medications and Allergies Home Medications ?Medication ?Instructions ?Recorded ?Confirmed ?Type dextroamphetamine-amphetamine 20 20 mg PO PRN 03/02/21 09/26/24 History mg tablet omeprazole 20 mg capsule,delayed 40 mg PO QID 03/02/21 09/26/24 History release tramadol 50 mg tablet 50 mg PO PRN 03/02/21 09/26/24 History acetaminophen 325 mg tablet (Pain 650 mg PO Q6H PRN pain 09/26/24 09/26/24 History Reliever (acetaminophen)) furosemide 20 mg tablet (Lasix) 20 mg PO DAILY 09/26/24 09/26/24 History hydroxyzine HCl 10 mg tablet 10 mg PO TID PRN itching 09/26/24 09/26/24 History loperamide 2 mg capsule 2 mg PO QID PRN loose stool 09/26/24 09/26/24 History (Anti-Diarrheal (loperamide)) ondansetron 8 mg disintegrating 8 mg PO TID 09/26/24 09/26/24 History tablet pembrolizumab 25 mg/mL intravenous 200 mg IV ONCE 09/26/24 09/26/24 History solution (Keytruda) prednisone 20 mg tablet 60 mg PO DAILY 09/26/24 09/26/24 History propranolol 10 mg tablet 10 mg PO Q12H 09/26/24 09/26/24 History Allergies Allergy/AdvReac Type Severity Reaction Status Date / Time No Known Drug Allergies Allergy Unknown Unknown Verified 09/27/24 13:21 Vital Signs Vital Signs - 24 hr 09/30/24 20:00 09/30/24 22:00 10/01/24 06:00 Temperature 36.6 C 36.6 C Pulse Rate 78 61 Respiratory Rate 20 20 Blood Pressure 115/67 113/73 Pulse Oximetry 98 100 Oxygen Delivery Room Air 10/01/24 07:44 10/01/24 07:51 10/01/24 13:34 Temperature Pulse Rate 70 Respiratory Rate Blood Pressure Pulse Oximetry Oxygen Delivery Room Air Room Air 10/01/24 14:00 Temperature 36.3 C L Pulse Rate 86 Respiratory Rate 16 Blood Pressure 106/74 Pulse Oximetry 98 Oxygen Delivery Exam 2 Narrative: Lungs are clear to auscultation bilaterally Cardiovascular regular rate rhythm no murmurs Abdomen soft slightly distended bowel sounds are positive Extremities no edema Results Labs 10/01/24 05:26 10/01/24 05:26 Labs: Short CBC 10/01/24 Range/Units 05:26 WBC 2.0 L (4.5-10.0) K/mm3 Hgb 7.5 L (14.0-18.0) g/dL Hct 23.5 L (42.0-52.0) % Plt Count 38 L (150-375) k/mm3 BMP 10/01/24 05:26 Sodium 132 L Potassium 3.8 Chloride 100 Carbon Dioxide 25 BUN 19 Creatinine 0.76 Glucose 98 Calcium 8.3 L Liver Function 10/01/24 Range/Units 05:26 Total Bilirubin 0.6 (0.2-1.3) mg/dL AST 32 (17-59) U/L ALT 58 H (6-50) U/L Alkaline Phosphatase 62 (38-126) U/L Albumin 2.7 L (3.5-5.1) g/dL
[2024-10-01] MEDS: diphenhydrAMINE HCl CAP 25 MG CAPSULE PO (20:41)
[2024-10-01 22:00] VITALS: BP 101/56; PULSE 65; RESP 20; TEMP 36.4; O2SAT 98
[2024-10-02 05:59] LABS: Hematocrit 24.4 % (42.0-52.0); Hemoglobin 7.7 g/dL (14.0-18.0); Immature Granulocyte Absolute 0.02 K/mm3 (0.00-0.031); Immature Granulocyte Percent A 0.9 % (0-0.5); Immature Platelet Fraction Pct 6.5 % (0.9-11.2); Lymphocytes Absolute Auto 0.26 K/mm3 (0.9-3.2); Lymphocytes Percent Auto 12.3 % (18.3-44.2); Mean Corpuscular HGB Conc 31.6 g/dl (32-36); Mean Corpuscular Hemoglobin 29.7 pg (26-34); Mean Corpuscular Volume 94.2 fl (80-100); Monocytes Absolute Auto 0.2 K/mm3 (0.1-0.6); Monocytes Percent Auto 10.4 % (2.6-8.5); Neutrophils Absolute Auto 1.6 K/mm3 (1.3-6.7); Neutrophils Percent Auto 76.4 % (45.5-73.1); Platelet Count Result 45 k/mm3 (150-375); Red Blood Count 2.59 M/mm3 (4.6-6.20); Red Cell Distribution Width 15.2 % (11.5-14.5); White Blood Count 2.1 K/mm3 (4.5-10.0)
[2024-10-02 06:00] VITALS: BP 100/60; PULSE 61; RESP 16; TEMP 36.5; O2SAT 95
[2024-10-02 06:12] LABS: Alanine Aminotransferase 51 U/L (6-50); Albumin Level 2.7 g/dL (3.5-5.1); Alkaline Phosphatase 63 U/L (38-126); Anion Gap 4 mmol/L (4-12); Aspartate Amino Transferase 38 U/L (17-59); Bilirubin,Total 0.7 mg/dL (0.2-1.3); Blood Urea Nitrogen 18 mg/dL (9-20); Calcium 8.2 mg/dL (8.4-10.2); Carbon Dioxide 28 mmol/L (22-30); Chloride 100 mmol/L (98-107); Estimated CRCL calculation 67 ml/min; Estimated Glomerular Filt Rate > 60; Glucose 95 mg/dL (65-110); Potassium 3.8 mmol/L (3.4-5.0); Sodium 132 mmol/L (137-145)
[2024-10-02 06:56] LABS: Anisocytosis 1+; Hypochromasia 2+; Ovalocytes 1+; Platelet Estimate Decreased (Adequate); Schistocytes None Seen
[2024-10-02 08:28] VITALS: PULSE 61
[2024-10-02] MEDS: predniSONE 20 MG TABLET 40 MG PO (08:28)
[2024-10-02] MEDS: carvediloL 6.25 MG TABLET PO (08:28)
[2024-10-02] MEDS: PANTOPRAZOLE 40 MG TABLET PO ×2 (08:28→12:17)
[2024-10-02] MEDS: FUROSEMIDE 20 MG TABLET PO (08:28)
--- NOTE | 2024-10-02 10:46 | PM.DS ---
DS: Admitting Diagnosis Discharge Date 10/02/24 Admitting Diagnosis GI bleeding DS: Discharge Diagnosis Discharge Diagnosis (1) GI bleed: Qualifiers: GI bleed type/associated pathology: unspecified gastrointestinal hemorrhage type Qualified Code(s): K92.2 - Gastrointestinal hemorrhage, unspecified Code(s): K92.2 - Gastrointestinal hemorrhage, unspecified Status: Acute Assessment and Plan: - CT chest/abdomen/pelvis: 1. Multiple bilateral pulmonary nodules, largest in the left lower lobe measuring 1.4 cm, suspicious for metastatic disease. Correlate for history of malignancy. 2: Cirrhosis of the liver. 3: Patchy hypoperfusion of the kidneys, suspicious for pyelonephritis. 4: Mild thickening of the proximal spot bowel, suspicious for enteritis. 5: Nonobstructing bilateral nephrolithiasis. - Hx of esophageal varices and GI bleed, 3 episodes since Jun - trend H&H. Status post transfuse 2 units of blood 09/28/2024. 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 Low-dose Coreg) -DC octreotide, pantoprazole 09/27/2024 by GI team after endoscopy - monitor hemodynamic stability no more bleeding reported Hemoglobin 7.7 today (2) Anemia: Qualifiers: Anemia type: iron deficiency Iron deficiency anemia type: chronic blood loss Qualified Code(s): D50.0 - Iron deficiency anemia secondary to blood loss (chronic) Code(s): D64.9 - Anemia, unspecified Status: Acute Assessment and Plan: Status post multiple blood transfusion - Hgb 7.7 - acute on chronic, secondary to GI bleed - transfuse if <7 given abnormal vitals and patient condition (restless, agitated in ED) the patient was transfused 2 PRBC Received 2 units of PRBC 09/28/2024 - monitor H&H consulted Oncology His pancytopenia secondary to liver cirrhosis. No need for further testing including bone marrow biopsy. Patient has been followed by [facility]. Fel[facility] [facility] [place] for nasoph[place] cancer and liver cancer. I have recommended to follow-up with him for further management given the findings on the CT scan. (3) Cirrhosis: Qualifiers: Hepatic cirrhosis type: unspecified hepatic cirrhosis Ascites presence: without ascites Qualified Code(s): K74.60 - Unspecified cirrhosis of liver Code(s): K74.60 - Unspecified cirrhosis of liver Status: Acute Assessment and Plan: - GI consulted, Ross HALEY. see the above recommendations. - continue coreg low dose (4) Thrombocytopenia: Code(s): D69.6 - Thrombocytopenia, unspecified Status: Acute Assessment and Plan: Acute on chronic has liver cirrhosis platelet 45 transfused 1 unit of Plt 09/30/24 hematology/oncology on board (5) Hyponatremia: Code(s): E87.1 - Hypo-osmolality and hyponatremia Status: Acute Assessment and Plan: mild monitor for now Plan Diet: regular GI Prophylaxis: ppi DVT Prophylaxis: SCDs Lines: Peripheral Code Status: Full code DS: Summary Hospital Course Hospital Course: per HPI: 69 y/o M with PMH of nasopharyngeal cancer, liver cancer (s/p chemo), esophageal varices, previous GI bleed, cirrhosis due to hepatitis C with some possible ETOH contribution, and ADHD presents here with concerns for GI bleed. The patient presents here from home via EMS on 09/26 for further evaluation of possible GI bleed. He reports onset of dark tarry stools yesterday. Then developed nausea and vomiting with a coffee-ground appearance today. He reports accompanying agitation, pallor, fatigue, dizziness, shortness of breath, and upper abdominal pain (has since resolved). He denies fever, chills, or body aches. He has a history of GI bleeds and esophageal varices. He is not currently on anticoagulation. 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 Less PET scan 6 weeks ago, does not believe he has any other known metastases. He receives his care through the OR. Per , who provided majority of the following history due to patient condition, the patient had started immunotherapy (Keytruda) in June 2024 as treatment for the nasopharyngeal cancer. However, 2-3 weeks later he developed dark tarry stools. The Keytruda was discontinued as it was believed this may have been cause for the GI bleed. Patient also has previously underwent radiation for the FISHING V[employer] MATE cancer, did not tolerate. Then, approximately 2-3 weeks ago he had a 2nd GI bleed. During this episode he had both dark tarry stools and hematemesis. He was admitted to the OR and underwent an EGD, 2 varices banded. He has a history of 1 prior banding in the summer of 2023. His reports the varices were inflamed and they were banded prophylactically. Initial VS at presentation: 97.8? F, HR 150, RR 14, 144/95, and 96% on RA. ED workup showed: WBC 15.3, hemoglobin 7.3 (11.9 on 10/07/2023), INR 1.4, ABG showed pH 7.5-2/CO2 17.8/O2 108.9/HC03 14.3, sodium 132, creatinine 0.97 and GFR >60, lactic 11.7. CT chest/abdomen/pelvis showed multiple bilateral pulmonary nodules largest in the left lower lobe measuring 1.4 cm suspicious for metastatic disease, cirrhosis of the liver, patchy hypo perfusion of the kidney suspicious for pyelonephritis, mild thickening at the proximal small bowel suspicious for enteritis, and nonobstructing bilateral nephrolithiasis. 09/28/24 EGD negative for active bleeding. Hemoglobin 5.7 today. Patient is receiving 2 units of blood 09/29/24 He is still has black stools. Plate did drop to 32. Hemoglobin 8.8. 09/30/24 Patient was seen and examined at bedside. He feels fine. Denies any chest pain, shortness of breat, Abd pain, nausea vomiting. Still has black stool but improving. Hemoglobin dropped to 7.9, platelet 31. Will monitor H&H. Will transfuse 1 unit of platelets. 10/01/24 His stool is getting back to brown colored. Still has pancytopenia. Platelets only improved to 38 after transfusion. Consulted Oncology. Recommended iron therapy and follow as outpatient Patient refused PT/OT 10/02/24 Patient was seen and examined at bedside. He is feeling fine. Denies any chest pain, shortness a friend, Jordyn pain, nausea vomiting. Stool is brown. Hemoglobin improved to 7.7, platelets 45. No bleeding reported. Patient requested to be discharged. Status at Discharge Overall status at discharge: patient is progressing back to baseline Time Spent with Patient Time attestation: Total time spent providing and/or coordinating discharge services: Time spent: Greater than 30 minutes Exam Const: General: comfortable and no acute distress Other: , male, frail, ill-appearing, +pallor HENMT: Face/Nose/Sinus: Normal nares present Mouth: Yes dry mucous membranes Eyes: General: appearance normal, both eyes and all related structures Sclera: sclerae normal Pupils: Equal, round and reactive pupils present EOM: EOMs intact bilaterally Resp: Effort & Inspection: normal respiratory effort Auscultation: clear to auscultation bilaterally Cardio: Rate: regular rate Rhythm: regular rhythm Other: S1-S2 present without murmur, rub, ectopy GI: Other: Abdomen soft, nondistended. Normoactive bowel sounds in all quadrants. mild tenderness in the upper quadrants. No hepatomegaly or splenomegaly appreciated. Skin: General skin exam: no rashes or lesions noted Wounds: no wounds Other: +pallor Neuro: Cranial nerves: Yes Equal, round and reactive pupils present Speech: normal speech Motor exam (neuro): 5/5 motor strength present throughout Sensory Exam: normal sensation Other: A&O x3, intermittent confusion. Extrem: General: normal to inspection Psych: Mental Status: mental status grossly normal Affect: normal affect Other: Fair insight and judgment at present, pleasant. DS: Data Data Completed and Pending Labs on day of discharge: Labs from last 24 hours 10/02/24 05:30 WBC 2.1 L RBC 2.59 L Hgb 7.7 L Hct 24.4 L MCV 94.2 MCH 29.7 MCHC 31.6 L RDW 15.2 H Plt Count 45 L MPV 11.0 H Immature Gran % (Auto) 0.9 H Neut % (Auto) 76.4 H Lymph % (Auto) 12.3 L Kay % (Auto) 10.4 H Eos % (Auto) 0.0 Baso % (Auto) 0.0 L Lymph # (Auto) 0.26 L Kay # (Auto) 0.2 Eos # (Auto) 0.0 Baso # (Auto) 0.0 Abs Immat Gran (auto) 0.02 Absolute Neuts (auto) 1.6 Absolute Nucleated RBC 0.000 Band Neutrophils % Not Reportable Nucleated RBC % 0.0 Platelet Estimate Decreased % Immature Plt Fraction 6.5 Hypochromasia 2+ Anisocytosis 1+ Ovalocytes 1+ Schistocytes None seen Sodium 132 L Potassium 3.8 Chloride 100 Carbon Dioxide 28 Anion Gap 4 BUN 18 Creatinine 0.78 Estim Creat Clear Calc 67 Estimated GFR > 60 Glucose 95 Calcium 8.2 L Total Bilirubin 0.7 AST 38 ALT 51 H Alkaline Phosphatase 63 Total Protein 5.0 L Albumin 2.7 L Discharge Plan Discharge Consulting providers: Preston Alicea Discharging Clinician: Ksenia Enamorado Patient Disposition: Home Activity: as tolerated Diet: as tolerated Discharge Instructions: Follow with PCP in 1 week Follow-up with oncology as scheduled Continue taking iron pills Follow-up with repeat blood tests in 2-3 days unable to PCP. Patient Instructions: Antibiotic Form Patient Language: Upper Sorbian Stand Alone Forms: General Discharge Information Follow-up/Referrals: Derrell Barrow MD [Primary Care Provider] - Discharge Medications: New carvedilol [Coreg] 6.25 mg Tablet 6.25 mg PO Q12HR Qty: 60 0RF Continued tramadol 50 mg tablet 50 mg PO PRN dextroamphetamine-amphetamine 20 mg tablet 20 mg PO PRN omeprazole 20 mg capsule,delayed release(DR/EC) 40 mg PO QID furosemide [Lasix] 20 mg tablet 20 mg PO DAILY ondansetron 8 mg tablet,disintegrating 8 mg PO TID hydroxyzine HCl 10 mg tablet 10 mg PO TID PRN (Reason: itching) loperamide [Anti-Diarrheal (loperamide)] 2 mg capsule 2 mg PO QID PRN (Reason: loose stool) prednisone 20 mg tablet 60 mg PO DAILY Keytruda 25 mg/mL solution 200 mg IV ONCE Patient Comments: Caused a myriad of side effects including multiple gi bleeds, migraines, edema, hypertension. Medication discontinued Rx Instructions: administer over 30 mins acetaminophen [Pain Reliever (acetaminophen)] 325 mg tablet 650 mg PO Q6H PRN (Reason: pain) Discontinued propranolol 10 mg tablet 10 mg PO Q12H Date of admission: 09/27/24 09:55 Primary Care Provider: Derrell Barrow Admitting Provider: Ksenia Enamorado Attending physician on admission: Ksenia Enamorado Condition: Stable Quality VTE Prophylaxis VTE prophylaxis: mechanical ordered
== END 2024-10-02 12:18 | disposition home or self-care (01) | DRG 377 ==
LOC: ANHED 11:35 → ANHIMU 14:45 → ANH3MED 09-28 16:29
PROVIDERS: Internal Medicine Gastroenterology; Student in an Organized Health Care Education/Training Program; Admitting Provider Internal Medicine; Emergency Provider Emergency Medicine; PCP Emergency Medicine; Visit Provider Internal Medicine
PROC: 0DJ08ZZ Inspection of Upper Intestinal Tract, Via Natural or Artificial Opening Endoscopic (ICD-10-PCS; principal; 2024-09-27 15:15)
DX: K92.2 Gastrointestinal hemorrhage, unspecified (principal); E43 Unspecified severe protein-calorie malnutrition; D61.818 Other pancytopenia; D62 Acute posthemorrhagic anemia; E87.1 Hypo-osmolality and hyponatremia; C77.9 Secondary and unspecified malignant neoplasm of lymph node, unspecified; C78.7 Secondary malignant neoplasm of liver and intrahepatic bile duct; C11.9 Malignant neoplasm of nasopharynx, unspecified; I85.00 Esophageal varices without bleeding; K29.30 Chronic superficial gastritis without bleeding; K70.30 Alcoholic cirrhosis of liver without ascites; B19.20 Unspecified viral hepatitis C without hepatic coma; Z68.22 Body mass index [BMI] 22.0-22.9, adult; F90.9 Attention-deficit hyperactivity disorder, unspecified type; F10.11 Alcohol abuse, in remission; D69.59 Other secondary thrombocytopenia
CPT/HCPCS: 36415; 36430; 36600; 71260; 74177; 80048; 80053; 80074; 81001; 82375; 82728; 82805; 83050; 83540; 83550; 83605; 83735; 84145; 84439; 84443; 84480; 85014; 85018; 85025; 85027; 85055; 85610; 85730; 86850; 86900; 86901; 86923; 87040; 87522; 93005; 93971; 96361; 96365; 96366; 96375; 96376; 97165; 99285; P9036; A9270; G0378; J0696; J1200; J2003; J2060; J2270; J2354; J2371; J2405; J2470; J2704; J2765; J7030; J7050; J7120; J7512; P9016; Q9967

== ENCOUNTER 2024-10-08 13:01 | Inpatient (IN) | payer MEDICARE, OTHER, SELFPAY ==
[2024-10-08] VITALS (27 sets, daily range): BP systolic 96–133; BP diastolic 49–90; PULSE 62–97; RESP 12–22; TEMP 36.3–36.7; O2SAT 97–100; BMI 2893.0
--- NOTE | ~2024-10-08 | XR_ITS ---
XR chest 1V portable Ordering provider: Sánchez Hooper MD History: 69 years Male with . Dyspnea . Comparison: None. FINDINGS: MEDIASTINUM: The cardiac silhouette is not enlarged. LUNGS: No infiltrates, effusions or pneumothorax. OTHER: No free air under the diaphragm. IMPRESSION: No acute cardiopulmonary pathology. Reviewed, dictated and finalized at location A.
--- NOTE | ~2024-10-08 | US_ITS ---
EXAMINATION: US venous doppler [facility] DATE: 10/09/2024 16:01 INDICATION: Bilateral lower extremity swelling TECHNIQUE: Grayscale ultrasound images without and with compression and Doppler ultrasound images of the bilateral lower extremity veins were obtained. COMPARISON: None. FINDINGS: The visualized portions of right common femoral vein, profunda (deep) femoral vein, femoral vein, pop liteal vein, peroneal veins, posterior tibial veins, and greater saphenous vein outflow are patent. The visualized portions of left common femoral vein, profunda femoral vein, femoral vein, popliteal v ein, peroneal veins, posterior tibial veins, and greater saphenous vein outflow are patent. IMPRESSION: 1. No deep venous thrombosis within the bilateral lower extremities, as detailed above. Reviewed, dictated and finalized at location A. IMPRESSION: 1. No deep venous thrombosis within the bilateral lower extremities, as detail ed above.
[2024-10-08 14:08] LABS: Basophils Percent Auto 0.1 % (0.2-1.2); Hematocrit 30.2 % (42.0-52.0); Hemoglobin 9.3 g/dL (14.0-18.0); Immature Granulocyte Absolute 0.08 K/mm3 (0.00-0.031); Immature Granulocyte Percent A 0.7 % (0-0.5); Lymphocytes Absolute Auto 0.14 K/mm3 (0.9-3.2); Lymphocytes Percent Auto 1.3 % (18.3-44.2); Mean Corpuscular HGB Conc 30.8 g/dl (32-36); Mean Corpuscular Volume 94.1 fl (80-100); Mean Platelet Volume 10.7 fl (7.4-10.4); Monocytes Absolute Auto 0.3 K/mm3 (0.1-0.6); Monocytes Percent Auto 2.7 % (2.6-8.5); Neutrophils Absolute Auto 10.4 K/mm3 (1.3-6.7); Neutrophils Percent Auto 95.2 % (45.5-73.1); Platelet Count Result 101 k/mm3 (150-375); Red Blood Count 3.21 M/mm3 (4.6-6.20); Red Cell Distribution Width 15.5 % (11.5-14.5)
--- OUTSIDE RECORDS SUMMARY | 2024-10-08 14:14 | XMS_ITS | Continuity of Care Document ---
Author Organization [facility] Address [address] [place] [address] [place] [address] Phone Care Team Providers Care [facility] Name Role Phone Derrell Barrow MD Unavailable Unavailable Allergies, Adverse Reactions, Alerts Substance Reaction Status Criticality No Known Allergies Active No Inform ation Medications Medication Instructions Dosage Effective Dates (start - stop) Status Comments tramadol 50 mg tablet take 1 tablet by oral route 2 times every day as needed as needed 50 MG - Active PRN for pain, avoid driving or operate machines Adderall 20 mg tablet take 1 tablet by oral route 2 times every day 20 MG - Active Coreg 12.5 mg tablet take 0.5 tablet by oral route 2 times every day with food 6.25 MG - Active omeprazole 20 mg capsule,delayed release take 1 capsule by oral route every day before a meal 20 MG - Active Procedures Procedure Date PPPS, subseq visit OFFICE/OUTPATIENT VISIT, EST OFFICE/OUTPATIENT VISIT, EST OFFICE/OUTPATIENT VISIT, EST Medicare Addendum OFFICE/OUTPATIENT VISIT, EST Medicare Addendum OFFICE/OUTPATIENT VISIT, EST OFFICE/OUTPATIENT VISIT, EST Medicare Addendum OFFICE/OUTPATIENT VISIT, EST Medicare Addendum OFFICE/OUTPATIENT VISIT, EST Medicare Addendum OFFICE/OUTPATIENT VISIT, EST Medicare Addendum OFFICE/OUTPATIENT VISIT, EST Medicare Addendum OFFICE/OUTPATIENT VISIT, EST OFFICE/OUTPATIENT VISIT, EST OFFICE/OUTPATIENT VISIT, EST OFFICE/OUTPATIENT VISIT, EST OFFICE/OUTPATIENT VISIT, EST OFFICE/OUTPATIENT VISIT, EST PPPS, initial visit OFFICE/OUTPATIENT VISIT, EST OFFICE/OUTPATIENT VISIT, EST OFFICE/OUTPATIENT VISIT, EST OFFICE/OUTPATIENT VISIT, EST OFFICE/OUTPATIENT VISIT, EST OFFICE/OUTPATIENT VISIT, EST OFFICE/OUTPATIENT VISIT, EST OFFICE/OUTPATIENT VISIT, EST OFFICE/OUTPATIENT VISIT, EST OFFICE/OUTPATIENT VISIT, EST OFFICE/OUTPATIENT VISIT, EST OFFICE/OUTPATIENT VISIT, EST OFFICE/OUTPATIENT VISIT, EST Initial preventive exam OFFICE/OUTPATIENT VISIT, EST OFFICE/OUTPATIENT VISIT, EST OFFICE/OUTPATIENT VISIT, EST OFFICE/OUTPATIENT VISIT, EST OFFICE/OUTPATIENT VISIT, EST OFFICE/OUTPATIENT VISIT, EST OFFICE/OUTPATIENT VISIT, EST OFFICE/OUTPATIENT VISIT, EST OFFICE/OUTPATIENT VISIT, EST OFFICE/OUTPATIENT VISIT, EST OFFICE/OUTPATIENT VISIT, EST OFFICE/OUTPATIENT VISIT, EST PREV VISIT, EST, AGE 40-64 OFFICE/OUTPATIENT VISIT, EST OFFICE/OUTPATIENT VISIT, EST OFFICE/OUTPATIENT VISIT, EST OFFICE/OUTPATIENT VISIT, EST OFFICE/OUTPATIENT VISIT, EST OFFICE/OUTPATIENT VISIT, EST OFFICE/OUTPATIENT VISIT, EST OFFICE/OUTPATIENT VISIT, EST OFFICE/OUTPATIENT VISIT, EST OFFICE/OUTPATIENT VISIT, EST OFFICE/OUTPATIENT VISIT, EST PREV VISIT, EST, AGE 40-64 OFFICE/OUTPATIENT VISIT, EST OFFICE/OUTPATIENT VISIT, EST OFFICE/OUTPATIENT VISIT, EST OFFICE/OUTPATIENT VISIT, EST OFFICE/OUTPATIENT VISIT, EST OFFICE/OUTPATIENT VISIT, EST OFFICE/OUTPATIENT VISIT, EST OFFICE/OUTPATIENT VISIT, EST OFFICE/OUTPATIENT VISIT, EST OFFICE/OUTPATIENT VISIT, EST OFFICE/OUTPATIENT VISIT, EST OFFICE/OUTPATIENT VISIT, EST OFFICE/OUTPATIENT VISIT, EST OFFICE/OUTPATIENT VISIT, EST OFFICE/OUTPATIENT VISIT, EST OFFICE/OUTPATIENT VISIT, EST PREV VISIT, NEW, AGE 40-64 OFFICE/OUTPATIENT VISIT, NEW Advance Directives Directive Yes / No Effective Date File Name No Information Encounters Encounter Description Practice Location Reason(s) For Visit Diagnoses Date Provider Providers Copied on Encounter OFFICE/OUTPA TIENT VISIT, [facility], [address], [place], [address], tel:[phone] [facility] physical (chief complaint) Encounter for general adult medical exam w abnormal findingsChronic pain syndromeAttention deficitEsophageal varices without bleedingLiver cell carcinoma 5 Danial Dove. [address], [address] , [place]. tel:[phone] OFFICE/OUTPA TIENT VISIT, [facility], [address], [place], [place], [address], tel:[phone] [facility] pain (chief complaint)AD D (chief complaint)CA (chief complaint) Chronic pain syndromeAttention deficitLiver cell carcinomaMalignan t neoplasm of nasopharynx, unspecified 4 Danial Dove. [address], [place], [place], [address] , [place]. tel:[phone] OFFICE/OUTPA TIENT VISIT, [facility], [address], [place], [place], [address], [place] tel:[phone] [facility] pain (chief complaint)AD D (chief complaint) Chronic pain syndromeAttention deficit 4 Barrow Derrell. [address], [place], [place], [address] , [place]. tel:[phone] OFFICE/OUTPA TIENT VISIT, [facility], [address], [place], [place], [address], [place] tel:[phone] [facility] Medicine pain (chief complaint)AD D (chief complaint) Attention deficitChronic pain syndrome 4 Danial Dove. [address], [place], [place], [address] , [place]. tel:[phone] OFFICE/OUTPA TIENT VISIT, [facility], [address], [place], [place], [address], [place] tel:[phone] [facility] pain (chief complaint)AD D (chief complaint)li red (chief complaint) Attention deficitChronic pain syndromeLiver cell carcinoma 4 Danial Dove. [address], [place], [place], [address] , [place]. tel:[phone] OFFICE/OUTPA TIENT VISIT, [facility], [address], [place], [place], [address], [place] tel:[phone] [facility] Medicine pain (chief complaint)AD D (chief complaint)CA (chief complaint)EG D1 (chief complaint) Attention deficitChronic pain syndromeLiver cell carcinomaMalignan t neoplasm of nasopharynx, unspecifiedEsopha geal varices without bleeding 4 Barrow Derrell. [address], [place], [place], [address] , [place]. tel:[phone] OFFICE/OUTPA TIENT VISIT, [facility], [address], [address], [place] tel:[phone] [facility] pain (chief complaint)AD D (chief complaint)li red mass1 (chief complaint) Liver cell carcinomaAttentio n deficitChronic pain syndromeMalignant neoplasm of nasopharynx, unspecified 4 Barrow Derrell. [address], [place], [place], [address] , [place]. tel:[phone] OFFICE/OUTPA TIENT VISIT, [facility], [address], [address], [place] tel:[phone] [facility] nausea1 (chief complaint) Malignant neoplasm of nasopharynx, unspecifiedHemate mesisAnemiaThromb ocytopeniaNausea w/ vomiting 4 Barrow Derrell. [address], [place], [place], [address] , [place]. tel:[phone] OFFICE/OUTPA TIENT VISIT, [facility], [address], [address], [place] tel:[phone] [facility] ADD (chief complaint)pa in (chief complaint)na darrell CA (chief complaint)li red mass (chief complaint) Chronic pain syndromeAttention deficitMalignant neoplasm of nasopharynx, unspecifiedLiver cell carcinoma 4 Barrow Derrell. [address], [place], [place], [address] , [place]. tel:[phone] OFFICE/OUTPA TIENT VISIT, [facility], [address], [address], tel:[phone] [facility] ADD (chief complaint)pa in (chief complaint)na darrell Ca (chief complaint) Attention deficitChronic pain syndromeNasal polyp 4 Barrow Derrell. [address], [place], [place], [address] , [place]. tel:[phone] OFFICE/OUTPA TIENT VISIT, [facility], [address], [place], [place], [address], [place] tel:[phone] [facility] ADD (chief complaint)pa in (chief complaint)na darrell polyp1 (chief complaint)va rices1 (chief complaint)HT N (chief complaint) Esophageal varices without bleedingChronic pain syndromeAttention deficitEssential (primary) hypertensionLiver cell carcinoma 4 Danial Dove. [address], [place], [place], [address] , [place]. tel:[phone] OFFICE/OUTPA TIENT VISIT, [facility], [address], [place], [place], [address], [place] tel:[phone] [facility] ADD (chief complaint)pa in (chief complaint)va rices1 (chief complaint)na darrell polyp1 (chief complaint) Attention deficitChronic pain syndromeEsophagea l varices without bleedingCandidal esophagitisNasal polypLiver cell carcinoma 3 Danial Dove. [address], [place], [place], [address] , [place]. [phone] OFFICE/OUTPA TIENT VISIT, [facility], [address], [place], [place], [address], [place] tel:[phone] [facility] ADD (chief complaint)pa in (chief complaint) Chronic pain syndromeAttention deficit Apr- 3 Danial Dove. [address], [place], [place], [address] , [place]. tel:[phone] OFFICE/OUTPA TIENT VISIT, [facility], [address], [place], [place], [address], [place] tel:[phone] [facility] ADD (chief complaint)pa in (chief complaint) Attention deficitChronic pain syndrome Feb- 3 Danial Dove. [address], [place], [place], [address] , [place]. tel:[phone] OFFICE/OUTPA TIENT VISIT, [facility], [address], [place], [place], [address], [place] tel:[phone] [facility] Medicine ADD (chief complaint)pa in (chief complaint)li red cirrhosis1 (chief complaint)GE RD1 (chief complaint) Attention deficitChronic pain syndromeOther cirrhosis of liverEsophageal varices without bleeding 3 Barrow Derrell. [address], [place], [place], [address] , [place]. tel:[phone] OFFICE/OUTPA TIENT VISIT, [facility], [address], [place], [place], [address], [place] tel:[phone] [facility] ADD (chief complaint)pa in (chief complaint)he aring loss1 (chief complaint)ci rrhosis1 (chief complaint) Attention deficitChronic pain syndromeConductiv e hearing loss, bilateralOther cirrhosis of liver 3 Danial Derrell. [address], [place], [place], [address] , [place]. tel:[phone] OFFICE/OUTPA TIENT VISIT, [facility], [address], [place], [place], [address], [place] tel:[phone] [facility] Medicine physical (chief complaint) Encounter for general adult medical exam w abnormal findingsAttention deficitChronic pain syndromeEsophagea l varices without bleedingLiver cell carcinomaOther cirrhosis of liverInguinal hernia 3 Danial Derrell. [address], [place], [place], [address] , [place]. tel:[phone] OFFICE/OUTPA TIENT VISIT, [facility], [address], [place], [place], [address], [place] tel:[phone] [facility] Medicine ADD (chief complaint)pa in (chief complaint)va rices1 (chief complaint) Attention deficitChronic pain syndromeEsophagea l varices without bleeding 3 Barrow Derrell. [address], [place], [place], [address] , [place]. tel:[phone] OFFICE/OUTPA TIENT VISIT, [facility], [address], [place], [place], [address], [place] tel:[phone] [facility] ADD (chief complaint)pa in (chief complaint)HC C (chief complaint) Attention deficitLiver cell carcinomaPalmar fascial fibromatosis [Dupuytren] 3 Barrow Derrell. [address], [place], [place], [address] , [place]. tel:[phone] OFFICE/OUTPA TIENT VISIT, [facility], [address], [place], [place], [address], [place] tel:[phone] [facility] ADD (chief complaint)pa in (chief complaint)li red CA1 (chief complaint)va rices1 (chief complaint) Attention deficitEsophageal varices without bleedingLiver cell carcinomaPalmar fascial fibromatosis [Dupuytren] 3 Barrow Derrell. [address], [place], [place], [address] , [place]. tel:[phone] OFFICE/OUTPA TIENT VISIT, [facility], [address], [place], [place], [address], [place] tel:[phone] [facility] ADD (chief complaint)pa in (chief complaint)HT N (chief complaint)li red CA (chief complaint) Chronic pain syndromeAttention deficitLiver cell carcinomaEssentia l (primary) hypertension 3 Barrow Derrell. [address], [place], [place], [address] , [place]. tel:[phone] OFFICE/OUTPA TIENT VISIT, [facility], [address], [place], [place], [address], [place] tel:[phone] [facility] ADD (chief complaint)pa in (chief complaint) Chronic pain syndromeAttention deficit 2 Barrow Derrell. [address], [place], [place], [address] , [place]. tel:[phone] Referring Provider: Aidan Oviedo [facility], [place], [place], [address]. tel:[phone] OFFICE/OUTPA TIENT VISIT, [facility], [address], [place], [place], [address], [place] tel:[phone] [facility] ADD (chief complaint)edwards nd pain1 (chief complaint)va rices1 (chief complaint)HC C (chief complaint) Attention deficitChronic pain syndromeEsophagea l varices without bleedingLiver cell carcinoma 2 Danial Dove. [address], [place], [place], [address] , [place]. tel:[phone] Referring Provider: Aidan Oviedo [facility], [place], [place], [address]. tel:[phone] OFFICE/OUTPA TIENT VISIT, [facility], [address], [place], [place], [address], [place] tel:[phone] [facility] ADD (chief complaint)pa in (chief complaint) Chronic pain syndromeAttention deficit 2 Danial Dove. [address], [place], [place], [address] , [place]. tel:[phone] Referring Provider: Aidan Oviedo [facility] A, [place], [place], [address]. tel:[phone] OFFICE/OUTPA TIENT VISIT, [facility], [address], [place], [place], [address], [place] tel:[phone] [facility] liver CA (chief complaint)AD D (chief complaint)edwards nd pain1 (chief complaint)saleem ck itch1 (chief complaint) Liver cell carcinomaAttentio n deficitChronic pain syndromeJock itchEsophageal varices without bleeding Feb-0 2 Danial Salcedo [address], [place], [place], [address] , [place]. tel:[phone] Referring Provider: Aidan Oviedo [address], [place], [place], [address]. tel:[phone] OFFICE/OUTPA TIENT VISIT, [facility], [address], [place], [place], [address], [place] tel:[phone] [facility] ADD (chief complaint)pa in1 (chief complaint)li red cancer (chief complaint) Liver cell carcinoma 2 Danial Dove. [address], [place], [place], [address] , [place]. tel:[phone] Referring Provider: Aidan Oviedo [address], [place], [place], [address]. tel:[phone] OFFICE/OUTPA TIENT VISIT, [facility], [address], [place], [place], [address], [place] tel:[phone] [facility] ADD (chief complaint)pa in (chief complaint) Chronic pain syndromeAttention deficit 2 Danial Dove. [address], [place], [place], [address] , [place]. tel:[phone] Referring Provider: Aidan Oviedo [address], [place], [place], [address]. tel:[phone] OFFICE/OUTPA TIENT VISIT, [facility], [address], [place], [place], [address], [place] tel:[phone] [facility] ADD (chief complaint)pa in (chief complaint)li red nodule1 (chief complaint) Attention deficitChronic pain syndromeOther specified diseases of liver 2 Danial Dove. [address], [place], [place], [address] , [place]. tel:[phone] Referring Provider: Aidan Oviedo [address], [place], [place], [address]. tel:[phone] OFFICE/OUTPA TIENT VISIT, [facility], [address], [place], [place], [address], [place] tel:[phone] [facility] ADD (chief complaint)pa in (chief complaint) Attention deficitChronic pain syndrome Leandro-0 2 Danial Dove. [address], [place], [place], [address] , [place]. [phone] Referring Provider: Aidan Oviedo [address], [place], [place], [address]. tel:[phone] OFFICE/OUTPA TIENT VISIT, [facility], [address], [place], [place], [address], [place] tel:[phone] [facility] ear pain1 (chief complaint) Encounter for general adult medical exam w abnormal findingsChronic pain syndromeAttention deficitGERD w/o esophagitisPortal hypertensionOther cirrhosis of liverEsophageal varicesDiffuse otitis externa, right ear May-0 2 Danial Dove. [address], [address], [place], [place], [address] , [place]. [phone] Referring Provider: Aidan Oviedo [address], [place], [place], [address]. tel:[phone] OFFICE/OUTPA TIENT VISIT, [facility], [address], [place], [place], [address], [place] tel:[phone] [facility] ADD (chief complaint)pa in (chief complaint)li red nodule1 (chief complaint) Attention deficitPalmar fascial fibromatosis [Dupuytren]Liver diseaseEsophageal varices without bleeding Apr-0 2 Danial Dove. [address], [address], [place], [place], [address] , [place]. [phone] Referring Provider: Aidan Oviedo [address], [place], [place], [address]. tel:[phone] OFFICE/OUTPA TIENT VISIT, [facility], [address], [place], [place], [address], [place] tel:[phone] [facility] ADD (chief complaint)pa in (chief complaint) Attention deficitChronic pain syndrome Mar-0 2 Danial Dove. [address], [address], [place], [place], [address] , [place]. [phone] Referring Provider: Aidan Oviedo [address], [place], [place], [address]. tel:[phone] OFFICE/OUTPA TIENT VISIT, [facility], [address], [place], [place], [address], [place] tel:[phone] [facility] ADD (chief complaint)pa in (chief complaint) Attention deficitChronic pain syndrome Fe 2 Danial Dove. [address], [place], [place], [address] , [place]. [phone] Referring Provider: Aidan Oviedo [address], [place], [place], [address]. tel:[phone] OFFICE/OUTPA TIENT VISIT, [facility], [address], [place], [place], [address], [place] tel:[phone] [facility] ADD (chief complaint)pa in (chief complaint) Chronic pain syndromeAttention deficit 2 Danial Dove. [address], [place], [place], [address] , [place]. [phone] Referring Provider: Aidan Oviedo [address], [place], [place], [address]. tel:[phone] OFFICE/OUTPA TIENT VISIT, [facility], [address], [place], [place], [address], [place] tel:[phone] [facility] pain (chief complaint)AD D (chief complaint) Attention deficitChronic pain syndromeEsophagea l varices without bleeding 1 Danial Salcedo [address], [address], [place], [place], [address] , [place]. [phone] Referring Provider: Aidan Oviedo [address], [place], [place], [address]. tel:[phone] OFFICE/OUTPA TIENT VISIT, [facility], [address], [place], [place], [address], [place] tel:[phone] [facility] pain (chief complaint)AD D (chief complaint) Chronic pain syndromeAttention deficitGERD w/o esophagitis 1 Danial Salcedo [address], [address], [place], [place], [address] , [place]. tel:[phone] Referring Provider: Aidan Oviedo [address], [place], [place], [address]. tel:[phone] OFFICE/OUTPA TIENT VISIT, [facility], [address], [place], [place], [address], [place] tel:[phone] [facility] ADD (chief complaint)pa in (chief complaint) Chronic pain syndromeAttention deficit 1 Danial Salcedo [address], [place], [place], [address] , [place]. tel:[phone] Referring Provider: Aidan Oviedo [address], [place], [place], [address]. tel:[phone] OFFICE/OUTPA TIENT VISIT, [facility], [address], [place], [place], [address], [place] tel:[phone] [facility] GERD1 (chief complaint)AD D (chief complaint)pa in (chief complaint) Attention deficitChronic pain syndromeGERD w/o esophagitis 1 Danial Salcedo [address], [place], [place], [address] , [place]. tel:[phone] Referring Provider: Aidan Oviedo [address], [place], [place], [address]. tel:[phone] OFFICE/OUTPA TIENT VISIT, [facility], [address], [place], [place], [address], [place] tel:[phone] [facility] ADD (chief complaint)pa in (chief complaint) Chronic pain syndromeAttention deficit 1 Danial Salcedo [address], [place], [place], [address] , [place]. tel:[phone] Referring Provider: A[address] Oviedo [address], [place], [place], [address]. tel:[phone] OFFICE/OUTPA TIENT VISIT, EST [facility], [address], [place], [place], [address], [place] tel:[phone] [facility] Medicine pain (chief complaint)AD D (chief complaint) Attention deficitChronic pain syndrome 1 Danial Salcedo [address], [place], [place], [address] , [place]. tel:[phone] Referring Provider: Aidan Oviedo [address], [place], [place], [address]. tel:[phone] OFFICE/OUTPA TIENT VISIT, EST [facility], [address], [place], [place], [address], [place] tel:[phone] [facility] Medicine pain (chief complaint)AD D (chief complaint)GE RD1 (chief complaint)he aring loss1 (chief complaint) Attention deficitBilateral hearing lossEsophageal varices without bleedingPalmar fascial fibromatosis [Dupuytren] 1 Danial Salcedo [address], [address], [place], [place], [address] , [place]. tel:[phone] Referring Provider: Aidan Oviedo [address], [place], [place], [address]. tel:[phone] PREV VISIT, EST, AGE 40-64 [facility], [address], [place], [place], [address], [place] tel:[phone] [facility] Medicine physical (chief complaint) Encounter for general adult medical exam w abnormal findingsGERD w/o esophagitisMonocl onal gammopathyBilater al hearing lossAttention deficitChronic pain syndrome Sep-3 1 Danial Salcedo [address], [address], [place], [place], [address] , [place]. tel:[phone] Referring Provider: Aidan Oviedo [address], [place], [place], [address]. tel:[phone] OFFICE/OUTPA TIENT VISIT, [facility], [address], [place], [place], [address], [phone] [facility] ADD (chief complaint)pa in (chief complaint)GE RD1 (chief complaint) Attention deficitChronic pain syndromeGERD w/o esophagitisEsopha geal varices without bleeding Aug-0 1 Danial Salcedo [address], [place], [place], [address] , [place]. [phone] Referring Provider: Aidan Oviedo [address], [place], [place], [address]. tel:[phone] OFFICE/OUTPA TIENT VISIT, [facility], [facility] [address], [place], [place], [address], [place] tel:[phone] [facility] hearing loss1 (chief complaint)an xiety1 (chief complaint)AD D (chief complaint)mo noclonal1 (chief complaint) Attention deficitChronic pain syndromeBilateral hearing lossMonoclonal gammopathy 1 Danial Salcedo [address], [place], [place], [address] , [place]. tel:[phone] Referring Provider: Aidan Oviedo [address], [place], [place], [address]. tel:[phone] OFFICE/OUTPA TIENT VISIT, [facility], [address], [place], [place], [address], [place] [phone] [facility] ADD (chief complaint)edwards nd pain1 (chief complaint)de pression1 (chief complaint)he aring1 (chief complaint)GE RD1 (chief complaint) GERD w/o esophagitisAttent ion deficitChronic pain syndromeDepressio nTinnitus, bilateral 0 Danial Salcedo [address], [address], [place], [place], [address] , [place]. tel:[phone] Referring Provider: Aidan Oviedo [address], [place], [place], [address]. tel:[phone] OFFICE/OUTPA TIENT VISIT, [facility], [address], [place], [place], [address], [place] tel:[phone] [facility] GERD1 (chief complaint)pl atelet1 (chief complaint)AD D (chief complaint)edwards nd pain1 (chief complaint) GERD w/o esophagitisPalmar fascial fibromatosis [Dupuytren]Thromb ocytopeniaHepatit is CAttention deficit 0 Danial Salcedo [address], [address], [place], [place], [address] , [place]. tel:[phone] Referring Provider: Aidan Oviedo [address], [place], [place], [address]. tel:[phone] OFFICE/OUTPA TIENT VISIT, [facility], [address], [place], [place], [address], [place] tel:[phone] [facility] hand pain1 (chief complaint)AD D (chief complaint)li red cirrhosis1 (chief complaint)GE RD1 (chief complaint) Hepatitis CAttention deficitPalmar fascial fibromatosis [Dupuytren]GERD w/o esophagitis 0 Danial Bermudez [address], [place], [place], [address] , [place]. tel:[phone] Referring Provider: Aidan Oviedo [address], [place], [place], [address]. tel:[phone] OFFICE/OUTPA TIENT VISIT, [facility], [address], [place], [place], [address], [place] tel:[phone] [facility] ADD (chief complaint)edwards nd pain1 (chief complaint) Palmar fascial fibromatosis [Dupuytren]Other cirrhosis of liverAttention deficit 0 Danial Salcedo [address], [address], [place], [place], [address] , [place]. tel:[phone] Referring Provider: Aidan Oviedo [facility], [place], [place], [address]. tel:[phone] OFFICE/OUTPA TIENT VISIT, [facility], [address], [place], [place], [address], [place] tel:[phone] [facility] hep C (chief complaint)edwards nd (chief complaint)edwards nd1 (chief complaint)AD D (chief complaint) Hepatitis COther cirrhosis of liverAttention deficitPalmar fascial fibromatosis [Dupuytren] 0 Danial Dove. [address] [facility], [address] , [place]. tel:[phone] Referring Provider: Aidan Oviedo [address] [facility], [place], [place], [address]. tel:[phone] OFFICE/OUTPA TIENT VISIT, [facility], [address], [address], [place] tel:[phone] [facility] liver cirrhosis1 (chief complaint)GE RD1 (chief complaint)he p C (chief complaint)co ntracture1 (chief complaint)AD D (chief complaint) Hepatitis CGERD w/o esophagitisThromb ocytopeniaAttenti on deficitPalmar fascial fibromatosis [Dupuytren] 0 Danial Salcedo [address], [facility] [place], [address] , [place]. tel:[phone] Referring Provider: Aidan Oviedo [facility], [place], [place], [address]. tel:[phone] OFFICE/OUTPA TIENT VISIT, [facility], [address] [facility] [place], [address], [place] tel:[phone] [facility] platelet1 (chief complaint)bi lirubin1 (chief complaint)LF T1 (chief complaint) ThrombocytopeniaD isorder of bilirubin metabolism, unspecifiedHepati tis C 0 Danial Salcedo [address], [address], [place], [place], [address] , [place]. tel:[phone] Referring Provider: Aidan Oviedo [address], [place], [place], [address]. tel:[phone] OFFICE/OUTPA TIENT VISIT, EST [facility], [address], [place], [place], [address], [place] tel:[phone] [facility] hep C (chief complaint)GE RD1 (chief complaint)ch ronic pain1 (chief complaint) GERD w/o esophagitisChroni c pain syndromeHepatitis C October- 0 Danial Dove. [address], [address], [place], [place], [address] , [place]. tel:[phone] Referring Provider: Aidan Oviedo [address], [place], [place], [address]. tel:[phone] PREV VISIT, EST, AGE 40-64 [facility], [address], [place], [place], [address], [place] tel:[phone] [facility] physical (chief complaint) Encounter for general adult medical exam w abnormal findingsHepatitis CThrombocytopenia Pain in left handAcute follicular conjunctivitis, left eye Apr-2 0 Danial Dove. [address], [address], [place], [place], [address] , [place]. tel:[phone] Referring Provider: Aidan Oviedo [address], [place], [place], [address]. tel:[phone] OFFICE/OUTPA TIENT VISIT, EST [facility], [address], [place], [place], [address], [place] tel:[phone] [facility] finger issue1 (chief complaint)Hp e C (chief complaint) Chronic viral hepatitis CPain in left hand Sep- 9 Danial Dove. [address], [address], [place], [place], [address] , [place]. tel:[phone] Referring Provider: Aidan Oviedo [address], [place], [place], [address]. tel:[phone] OFFICE/OUTPA TIENT VISIT, [facility], [address], [place], [place], [address], [place] tel:[phone] [facility] ADD (chief complaint)ch ronic pain (chief complaint)he p C (chief complaint) Attention deficitLiver disease, unspecifiedChroni c pain syndromeGERD w/o esophagitis 6 Danial Dove. [address], [address], [place], [place], [address] , [place]. [phone] Referring Provider: Aidan Oviedo [facility] [place], [address]. tel:[phone] OFFICE/OUTPA TIENT VISIT, [facility], [address], [address], [place] tel:[phone] [facility] chronic pain1 (chief complaint)AD D1 (chief complaint)he p C (chief complaint) Attention deficitChronic pain syndromeChronic viral hepatitis C 5 Danial Dove. [address] [facility] [place], [address] , [place]. [phone] Referring Provider: Aidan Oviedo [facility], [place], [place], [address]. tel:[phone] OFFICE/OUTPA TIENT VISIT, [facility], [address], [address], [place] tel:[phone] [facility] hepatitis C (chief complaint)ch ronic pain (chief complaint)GE RD (chief complaint) Liver diseaseConstipati onEsophageal reflux 5 Danial Dove. [address], [address], [place], [place], [address] , [place]. tel:[phone] Referring Provider: Aidan Oviedo [facility], [place], [place], [address]. tel:[phone] OFFICE/OUTPA TIENT VISIT, [facility], [address], [address], tel:[phone] [facility] pain (chief complaint)AD D (chief complaint)li red (chief complaint) Attention deficit disorder of childhood without mention of hyperactivityOthe r and unspecified alcohol dependence, episodic drinking behaviorOther chronic pain 0201 5 Danial Dove. [address], [address], [place], [place], [address] , [place]. tel:[phone] Referring Provider: Derrell Barrow, [address], [place], [place], [address]. tel:[phone] OFFICE/OUTPA TIENT VISIT, [facility], [address], [place], [place], [address], [place] tel:[phone] [facility] liver disease (chief complaint)pl atelet (chief complaint)vi tamin D (chief complaint)AD D (chief complaint)An xiety (chief complaint)re ctal bleeding (chief complaint) Unspecified disorder of liverThrombocytop eniaOther and unspecified alcohol dependence, episodic drinking behaviorGeneraliz ed anxiety disorder 5 Danial Dove. [address], [address], [place], [place], [address] , [place]. tel:[phone] Referring Provider: Aidan Oviedo [address], [place], [place], [address]. tel:[phone] OFFICE/OUTPA TIENT VISIT, [facility], [address], [place], [address], [place] tel:[phone] [facility] ADD (chief complaint)ch ronic pain (chief complaint)GE RD (chief complaint) Attention deficit disorder of childhood without mention of hyperactivityCHRO CESAR PAIN NECGERD 3201 5 Danial Dove. [address], [address], [place], [place], [address] , [place]. tel:[phone] Referring Provider: Aidan Oviedo [address], [place], [place], [address]. tel:[phone] OFFICE/OUTPA TIENT VISIT, [facility], [address], [place], [place], [address], [place] tel:[phone] [facility] chronic pain (chief complaint)AD D (chief complaint)fa tigue (chief complaint)te ndon contraction (chief complaint)GE RD (chief complaint) Hypertension, UnspecifiedFatigu e / MalaiseGERDAttent ion deficit disorder of childhood without mention of hyperactivity Aug-0 5 Danial Dove. [address], [place], [place], [address] , [place]. tel:[phone] Referring Provider: Derrell Barrow, Aidan Pascual [facility], [place], [place], [address]. tel:[phone] OFFICE/OUTPA TIENT VISIT, [facility], [address], [place], [place], [address], [place] tel:[phone] [facility] tendon right hand (chief complaint)ch ronic pain (chief complaint)GE RD (chief complaint) Contracture of tendon (sheath)Attention deficit disorder of childhood without mention of hyperactivityPers onal history of noncompliance with medical treatment, presenting hazards to [facility] 5 Danial Dove. [address], [place], [place], [address] , [place]. tel:[phone] Referring Provider: Aidan Oviedo [facility], [place], [place], [address]. tel:[phone] OFFICE/OUTPA TIENT VISIT, [facility], [address], [place], [place], [address], [place] tel:[phone] [facility] GERD (chief complaint)HT N (chief complaint)AD D (chief complaint)ch ronic pain (chief complaint) GERDAttention deficit disorder of childhood without mention of hyperactivityPain in joint involving multiple sitesHypertension , Unspecified Sep-2 4 Danial Dove. [address], [place], [place], [address] , [place]. [phone] Referring Provider: Aidan Oviedo [facility], [place], [place], [address]. tel:[phone] OFFICE/OUTPA TIENT VISIT, [facility], [address], [place], [place], [address], [place] tel:[phone] [facility] GERD (chief complaint)AD D (chief complaint)he maturia (chief complaint) HEMATURIA NOSGERDAttention deficit disorder of childhood without mention of hyperactivity 4 Danial Dove. [address], [place], [place], [address] , [place]. tel:[phone] Referring Provider: Derrell Barrow, [address], [place], [place], [address]. tel:[phone] OFFICE/OUTPA TIENT VISIT, [facility], [address], [place], [place], [address], [place] tel:[phone] [facility] flank pain (chief complaint) HEMATURIA NOSCalculus of kidneyAbdominal Pain 4 Danial Dove. [address], [address], [place], [place], [address] , [place]. tel:[phone] Referring Provider: Derrell Barrow, [address], [place], [place], [address]. tel:[phone] OFFICE/OUTPA TIENT VISIT, [facility], [address], [place], [place], [address], [place] tel:[phone] [facility] sinus infection (chief complaint) Sinusitis, Acute 4 Danial Dove. [address], [address], [place], [place], [address] , [place]. tel:[phone] Referring Provider: Derrell Barrow [address], [place], [place], [address]. tel:[phone] OFFICE/OUTPA TIENT VISIT, [facility], [address], [place], [place], [address], [place] tel:[phone] [facility] Sinusits (chief complaint)ch ornic pain (chief complaint)AD D (chief complaint)te ndon contraction (chief complaint) Sinusitis, AcuteAttention deficit disorder of childhood without mention of hyperactivityPain in joint involving multiple sitesContracture of tendon (sheath) 4 Danial Dove. [address], [place], [place], [address] , [place]. [phone] Referring Provider: Derrell Barrow, Aidan [facility], [address]. tel:[phone] OFFICE/OUTPA TIENT VISIT, [facility], [address], [address], [place] tel:[phone] [facility] ADD (chief complaint)ch ornic pain (chief complaint) Pain in joint involving multiple sitesAttention deficit disorder of childhood without mention of hyperactivity 4 Danial Salcedo [address], [address], [place], [place], [address] , [place]. tel: [phone] Referring Provider: Aidan Oviedo [facility] [place], [address]. tel:[phone] PREV VISIT, NEW, AGE 40-64 [facility], [address], [address], [place] tel:[phone] [facility] Physical (chief complaint) Dietary surveillance and counselingRoutine Medical ExamRoutine Medical ExamOther specified congenital anomalies of muscle, tendon, fascia, and connective tissueGERDAttenti on deficit disorder of childhood without mention of hyperactivity 4 Danial Salcedo [address], [address], [place], [address] , [place]. [phone] Family History Family Member Type Diagnosis Age At Onset Brother Problem (finding) Alive and well Father Problem (finding) Stroke Mother Problem (finding) Cancer, breast Payers Payer name Insurance type Covered green party ID Authoriza tion(s) [employer] [place] WPS MB [id number] [employer] Secondary CI [id number] Social History Type Description Quantity Date Captured Comments Alcohol Use Details No Caffeine Use Details Unknown Tobacco Use Status Current non-smoker Smoking Status Never smoker Sex Male Vital Signs Date / Time: Height Weight BMI Pulse Rate Blood Pressure Temperature Respiratory Rate Body Surface Area Head Circumference BMI percentile Pulse Ox Inhaled Ox 5:11 PM 72.00 in 160.00 lbs 21.7 0 kg/m eter (2) 71 /min 120/80 mm[Hg] 98.2 F 16 /min Chief Complaint And Reason For Visit From encounter dated '07/09/2024 17:11'. physical (chief complaint). Description: Pt needs annual physical pt has chronic hand pain due to arthritis. Pt has ADD and he is doing ok with omeprazole. 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 Pt sees oncology and also liver specialist. he had MRI and PET scan done recently and he has some suspicious spots on liver as well as evan involvement with nasopharyngeal carcinoma and he will start keytruda soon. 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 Evaluate and treat ordered Referral Ordered: Hematology (related to Hepatitis C) ordered Referral Ordered: Referrals: Hematology. Evaluate and treat ordered Referral Ordered: Rommel Tapia [facility] : Internal Medicine : Gastroenterology (related to Hepatitis C) ordered Referral Referred To: Rommel Tapia [address] [facility]
[address], [id number] Ordered: Referrals: [facility] : Internal Medicine : Gastroenterology. Rommel Tapia. Evaluate and treat ordered Referral Ordered: Gastroenterology (related to Chronic viral hepatitis C) ordered Referral Ordered: Referrals: Gastroenterology. Evaluate and treat ordered Referral Ordered: US EXAM, ABDOM, COMPLETE ordered Referral Ordered: LUMBAR XRAY AP AND LAT ONLY ordered Referral Ordered: Plastic Surg ordered Referral Ordered: Referral: Plastic Surg. ordered Referral Ordered: COLONOSCOPY AND BIOPSY ordered History Of Present Illness Encounter Date Complaint History Of Prese nt Illness physical Pt needs annual physical pt has chronic hand pain due to arthritis. Pt has ADD and he is doing ok with omeprazole. 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 Pt sees oncology and also liver specialist. he had MRI and PET scan done recently and he has some suspicious spots on liver as well as evan involvement with nasopharyngeal carcinoma and he will start keytruda soon. Pt denies any other complaints pain Pt has chronic d upuytren contraction both hand with hand pain. Pt denies any paresthesia. Pt takes ultram PRn for pain. and doing ok. . Pt denies any hand swelling, any redness or warmth. Pt failed NSAID. ADD Patient has ADD. Patient has inattentive type. Patient feels scatterbrained. Patient feel poor focus and difficulty completing tasks. Patient states that Adderall is helping with symptoms. Patient feels more focused. Pt feels more energy. Patient denies any headache, dry mouth, headache, chest pain. Patient denies any appetite loss. CA Pt has nasophary nx carcinoma and also liver carcinoma. Pt had PET scan done recently which showed benign liver but the nasopharyngeal CA is still present. He told me he saw the oncologist recently who refuses to treat him again with radiation since he quit radiation in the past on his own. pain Pt has chronic d upuytren contraction both hand with hand pain. Pt denies any paresthesia. Pt takes ultram PRn for pain. and doing ok. . Pt denies any hand swelling, any redness or warmth. Pt failed NSAID. ADD Patient has ADD. Patient has inattentive type. Patient feels scatterbrained. Patient feel poor focus and difficulty completing tasks. Patient states that Adderall is helping with symptoms. Patient feels more focused. Pt feels more energy. Patient denies any headache, dry mouth, headache, chest pain. Patient denies any appetite loss. pain Pt has chronic d upuytren contraction both hand with hand pain. Pt denies any paresthesia. Pt takes ultram PRn for pain. and doing ok. . Pt denies any hand swelling, any redness or warmth. Pt failed NSAID. ADD Patient has ADD. Patient has inattentive type. Patient feels scatterbrained. Patient feel poor focus and difficulty completing tasks. Patient states that Adderall is helping with symptoms. Patient feels more focused. Pt feels more energy. Patient denies any headache, dry mouth, headache, chest pain. Patient denies any appetite loss. pain Pt has chronic d upuytren contraction both hand with hand pain. Pt denies any paresthesia. Pt takes ultram PRn for pain. and doing ok. . Pt denies any hand swelling, any redness or warmth. Pt failed NSAID. ADD Patient has ADD. Patient has inattentive type. Patient feels scatterbrained. Patient feel poor focus and difficulty completing tasks. Patient states that Adderall is helping with symptoms. Patient feels more focused. Pt feels more energy. Patient denies any headache, dry mouth, headache, chest pain. Patient denies any appetite loss. liver Pt has HCC s/p t reatment and new MRI showed some new small nodule and the old treated nodule is benign pain Pt has chronic d upuytren contraction both hand with hand pain. Pt denies any paresthesia. Pt takes ultram PRn for pain. and doing ok. . Pt denies any hand swelling, any redness or warmth. Pt failed NSAID. CA Pt has nasophary nx carcinoma and also liver carcinoma. Pt is seeing oncologist at [place] pt will do liver MRI and brain MRI in several weeks Pt overall feels fine . ADD Patient has ADD. Patient has inattentive type. Patient feels scatterbrained. Patient feel poor focus and difficulty completing tasks. Patient states that Adderall is helping with symptoms. Patient feels more focused. Pt feels more energy. Patient denies any headache, dry mouth, headache, chest pain. Patient denies any appetite loss. EGD1 Pt has non bleed ing esophageal varices with portal hypertension Pt takes coreg and omeprazole. pt had EGD 3 years ago. pt denies any abd pain pain Pt has chronic d upuytren contraction both hand with hand pain. Pt denies any paresthesia. Pt takes ultram PRn for pain. and doing ok. . Pt denies any hand swelling, any redness or warmth. Pt failed NSAID. Pt takes ultram PRN for pain ADD Patient has ADD. Patient has inattentive type. Patient feels scatterbrained. Patient feel poor focus and difficulty completing tasks. Patient states that Adderall is helping with symptoms. Patient feels more focused. Pt feels more energy. Patient denies any headache, dry mouth, headache, chest pain. Patient denies any appetite loss. liver mass1 Pt has liver car cinoma s/p treatment by oncology. His MRI from august was clear but CT last month showed 17 mm liver mass. nausea1 Pt has nasophary nx carcinoma and he underwent multiple sessions of radiation which made him severely sick with nausea, vomiting, diarrhea, malaise and neck pain. Pt received the radiation from his neck area .Pt went to ER recently due to above symptoms along with blood tinged vomiting with dark stool .Pt had negative hemoccult stool sample in ER and he also followed up with ENT and had a negative laryngoscope two days ago. Pt told me he decided to stop radiation therapy due to inability to tolerate it due to side effects .He had MRI of neck and face done which showed left pharynx malignancy which appears slightly smaller than prior to radiation therapy. ADD Patient has ADD. Patient has inattentive type. Patient feels scatterbrained. Patient feel poor focus and difficulty completing tasks. Patient states that Adderall is helping with symptoms. Patient feels more focused. Pt feels more energy. Patient denies any headache, dry mouth, headache, chest pain. Patient denies any appetite loss. 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 He wants MRI to check the size of the tumor. He feels better and he thinks that the tumor is shirking. he has been 3 sessions of radiation therapy. He also states that his sinus feels better since the radiation therapy liver mass Pt is s/p chemo therapy and his recent MRI of liver was clear of any tumor. pain Pt has chronic d upuytren contraction both hand with hand pain. Pt denies any paresthesia. Pt takes ultram PRn for pain. and doing ok. . Pt denies any hand swelling, any redness or warmth. Pt failed NSAID. Pt takes ultram PRN for pain ADD Patient has ADD. Patient has inattentive type. Patient feels scatterbrained. Patient feel poor focus and difficulty completing tasks. Patient states that Adderall is helping with symptoms. Patient feels more focused. Pt feels more energy. Patient denies any headache, dry mouth, headache, chest pain. Patient denies any appetite loss. pain Pt has chronic d upuytren contraction both hand with hand pain. Pt denies any paresthesia. Pt takes ultram PRn for pain. and doing ok. . Pt denies any hand swelling, any redness or warmth. Pt failed NSAID. 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 Patient has inattentive type. Patient feels scatterbrained. Patient feel poor focus and difficulty completing tasks. Patient states that Adderall is helping with symptoms. Patient feels more focused. Pt feels more energy. Patient denies any headache, dry mouth, headache, chest pain. Patient denies any appetite loss. pain Pt has chronic d upuytren contraction both hand with hand pain. Pt denies any paresthesia. Pt takes ultram PRn for pain. and doing ok. . Pt denies any hand swelling, any redness or warmth. Pt failed NSAID. Pt takes ultram PRN for pain nasal polyp1 Pt has large lef t side nasal polyp and he will have biopsy by ENT next week . pt c/o left sinus pressure and pain and left ear hearing loss. Pt has chronic left side sinus pressure varices1 Pt has esophagea l varices without bleeding and he had EGD recently which showed edenilson esophagitis and he was treated for the edenilson and he will follow up with GI for EGD again later this week. Pt had MRI done of the abdomen and no recurrent liver cancer and cirrhosis stable per patient HTN Pt has mild HTN Pt denies any chest morley or headache ADD Patient has ADD. Patient has inattentive type. Patient feels scatterbrained. Patient feel poor focus and difficulty completing tasks. Patient states that Adderall is helping with symptoms. Patient feels more focused. Pt feels more energy. Patient denies any headache, dry mouth, headache, chest pain. Patient denies any appetite loss. pain Pt has chronic d upuytren contraction both hand with hand pain. Pt denies any paresthesia. Pt takes ultram PRn for pain. and doing ok. . Pt denies any hand swelling, any redness or warmth. Pt failed NSAID. Pt takes ultram PRN for pain varices1 Pt has esophagea l varices with liver cirrhosis with HCC. pt did chemo and he is seeing liver and oncologist specialist. pt had another EGD done recently which showed esophageal fungal infection and he was given diflucan which effectively treated the condition nasal polyp1 pt saw ENT joy phipps at [facility] and nasoscope was done which showed a large nasal polyp and he will do sinus CT soon by ENT. ADD Patient has ADD. Patient has inattentive type. Patient feels scatterbrained. Patient feel poor focus and difficulty completing tasks. Patient states that Adderall is helping with symptoms. Patient feels more focused. Pt feels more energy. Patient denies any headache, dry mouth, headache, chest pain. Patient denies any appetite loss. Pt has been taking adderall 20 mg BID and he is doing very well pain Pt has chronic d upuytren contraction both hand with hand pain. Pt denies any paresthesia. Pt takes ultram PRn for pain. and doing ok. . Pt denies any hand swelling, any redness or warmth. Pt failed NSAID. Pt takes ultram PRN for pain ADD Patient has ADD. Patient has inattentive type. Patient feels scatterbrained. Patient feel poor focus and difficulty completing tasks. Patient states that Adderall is helping with symptoms. Patient feels more focused. Pt feels more energy. Patient denies any headache, dry mouth, headache, chest pain. Patient denies any appetite loss. Pt has been taking adderall 20 mg BID and he is doing very well pain Pt has chronic d upuytren contraction both hand with hand pain. Pt denies any paresthesia. Pt takes ultram PRn for pain. and doing ok. . Pt denies any hand swelling, any redness or warmth. Pt failed NSAID. Pt takes ultram PRN for pain ADD Patient has ADD. Patient has inattentive type. Patient feels scatterbrained. Patient feel poor focus and difficulty completing tasks. Patient states that Adderall is helping with symptoms. Patient feels more focused. Pt feels more energy. Patient denies any headache, dry mouth, headache, chest pain. Patient denies any appetite loss. Pt states that his fatigue and ADD symptoms are getting worse and he wants to go higher dose on adderall. liver cirrhosis1 Pt has liver ci rrhosis and also HCC s/p chemo therapy. Pt is on hold for the liver transplant pt will have MRi done in two months and he will decide about the liver transplant specialist afterward. GERD1 Pt has esophagea l varices with is non bleeding and he is on omeprazole and his last EGD was in October which was benign and he is on coreg pain Pt has chronic d upuytren contraction both hand with hand pain. Pt denies any paresthesia. Pt takes ultram PRn for pain. and doing ok. . Pt denies any hand swelling, any redness or warmth. Pt failed NSAID. Pt takes ultram PRN for pain ADD Patient has ADD. Patient has inattentive type. Patient feels scatterbrained. Patient feel poor focus and difficulty completing tasks. Patient states that Adderall is helping with symptoms. Patient feels more focused. Pt feels more energy. Patient denies any headache, dry mouth, headache, chest pain. Patient denies any appetite loss pain Pt has chronic d upuytren contraction both hand with hand pain. Pt denies any paresthesia. Pt takes ultram PRn for pain. and doing ok. . Pt denies any hand swelling, any redness or warmth. Pt failed NSAID. Pt takes ultram PRN for pain hearing loss1 Pt has chronic h earing loss, especially on left side. Pt uses hearing aid but left side is not doing well. cirrhosis1 Pt has liver cir rhosis and liver carcinoma. Pt is seeing oncology and liver specialist and he will do fibroscan soon. his liver transplant is on hold physical Pt needs annual physical Pt has ADD. pt doing well with adderall Pt has chronic hand pain due to arthritis Pt takes ultram PRn and doing ok. Pt has HCC and liver cirrhosis with nonbleeding esophageal varices. Pt has chronic GERD Pt takes omeprazole and doing ok pt is seeing oncology and liver specialist Pt is eligible for liver transplant but he has been taking multiple supplements and he believes that his liver cirrhosis and CA is getting better and he has been holding off liver transplant. pt states that since he started supplement, he has been feeling very well overall. Pt notices a bulge right inguinal area for several months with mild pain. Pt denies any urinary symptoms ADD Patient has ADD. Patient has inattentive type. Patient feels scatterbrained. Patient feel poor focus and difficulty completing tasks. Patient states that Adderall is helping with symptoms. Patient feels more focused. Pt feels more energy. Patient denies any headache, dry mouth, headache, chest pain. Patient denies any appetite loss pain Pt has chronic d upuytren contraction both hand with hand pain. Pt denies any paresthesia. Pt takes ultram PRn for pain. and doing ok. . Pt denies any hand swelling, any redness or warmth. Pt failed NSAID. Pt takes ultram PRN for pain varices1 Pt has liver cir rhosis with esophagal varices. Pt had EGD done recently which showed non bleeding varices. Pt takes omeprazole for GERD Pt is waiting for liver transplant pain Pt has chronic d upuytren contraction both hand with hand pain. Pt denies any paresthesia. Pt takes ultram PRn for pain. and doing ok. . Pt denies any hand swelling, any redness or warmth. Pt failed NSAID. Pt takes ultram PRN for pain ADD Patient has ADD. Patient has inattentive type. Patient feels scatterbrained. Patient feel poor focus and difficulty completing tasks. Patient states that Adderall is helping with symptoms. Patient feels more focused. Pt feels more energy. Patient denies any headache, dry mouth, headache, chest pain. Patient denies any appetite loss HCC Pt has HCC witho ut mets. Pt has liver cirrhosis. Pt is seeing liver specialist and also oncology and he had chemo for HCC. Pt is on liver donor waiting list and he just got a call by his liver specialist that he received a donor liver and he may do liver transplant jason. However, he has some doubt about liver transplant. He started to use nicole whitmore oil (RSO) recently and he notices that he is gaining weight with improved appetite and his hair is coming back as well. He states that his platelet number is also improving. He states that he has done extensive research and found that RSO also treat liver CA as well. He is not sure if he wants to go through with the liver transplant anymore liver CA1 Pt has HCC Pt edwards d one round of chemo treatment and he is on waiting list for liver transplant by [facility] and [facility] varices1 Pt had EGD last month and she had esophageal varices banding as well Pt takes omeprazole Pt denies any Gi bleeding ADD Patient has ADD. Patient has inattentive type. Patient feels scatterbrained. Patient feel poor focus and difficulty completing tasks. Patient states that Adderall is helping with symptoms. Patient feels more focused. Pt feels more energy. Patient denies any headache, dry mouth, headache, chest pain. Patient denies any appetite loss pain Pt has chronic d upuytren contraction both hand with hand pain. Pt denies any paresthesia. Pt takes ultram PRn for pain. and doing ok. 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 Pt denies any hand swelling, any redness or warmth. Pt failed NSAID. Pt takes ultram PRN for pain ADD Patient has ADD. Patient has inattentive type. Patient feels scatterbrained. Patient feel poor focus and difficulty completing tasks. Patient states that Adderall is helping with symptoms. Patient feels more focused. Pt feels more energy. Patient denies any headache, dry mouth, headache, chest pain. Patient denies any appetite loss HTN Pt has mild HTN. Pt takes coreg. Pt denies any chest pain or headache. liver CA Pt has liver CA and he is seeing liver specialist and oncologist and he will do MRi of liver soon and he is on liver transplant list as well. He denies any abd pain pain Pt has chronic d upuytren contraction both hand with hand pain. Pt denies any paresthesia. Pt takes ultram PRn for pain. and doing ok. 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 Pt denies any hand swelling, any redness or warmth. Pt failed NSAID. Pt takes ultram PRN for pain ADD Patient has ADD. Patient has inattentive type. Patient feels scatterbrained. Patient feel poor focus and difficulty completing tasks. Patient states that Adderall is helping with symptoms. Patient feels more focused. Pt feels more energy. Patient denies any headache, dry mouth, headache, chest pain. Patient denies any appetite loss pain Pt has chronic d upuytren contraction both hand with hand pain. Pt denies any paresthesia. Pt takes ultram PRn for pain. and doing ok. 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 Pt denies any hand swelling, any redness or warmth. Pt failed NSAID. Pt takes ultram PRN for pain varices1 Pt has liver cir rhosis with esophageal varices. Pt has portal hypertension Pt takes coreg. Pt recently had EGD done and one of the varices was ablated and no other varices per GI. Pt takes omeprazole daily for GERD HCC Pt has hepatocel lular carcinoma. Pt denies any abd pain Pt is seeing liver specialist through [facility] and he is on [facility] liver transplant list. Pt does not have any liver mets. ADD Patient has ADD. Patient has inattentive type. Patient feels scatterbrained. Patient feel poor focus and difficulty completing tasks. Patient states that Adderall is helping with symptoms. Patient feels more focused. Pt feels more energy. Patient denies any headache, dry mouth, headache, chest pain. Patient denies any appetite loss hand pain1 Pt has chronic d upuytren contraction both hand with hand pain. Pt denies any paresthesia. Pt takes ultram PRn for pain. and doing ok. 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 Pt denies any hand swelling, any redness or warmth. Pt failed NSAID. Pt takes ultram PRN for pain ADD Patient has ADD. Patient has inattentive type. Patient feels scatterbrained. Patient feel poor focus and difficulty completing tasks. Patient states that Adderall is helping with symptoms. Patient feels more focused. Pt feels more energy. Patient denies any headache, dry mouth, headache, chest pain. Patient denies any appetite loss. pain Pt has chronic d upuytren contraction both hand with hand pain. Pt denies any paresthesia. Pt takes ultram PRn for pain. and doing ok. 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 Pt denies any hand swelling, any redness or warmth. Pt failed NSAID. Pt takes ultram PRN for pain liver CA Pt has liver cir rhosis and newly discovered HCC. Pt is seeing GI through [facility] and he will be referred to [facility] for liver transplant. he will do chest Ct via [facility] . ADD Patient has ADD. Patient has inattentive type. Patient feels scatterbrained. Patient feel poor focus and difficulty completing tasks. Patient states that Adderall is helping with symptoms. Patient feels more focused. Pt feels more energy. Patient denies any headache, dry mouth, headache, chest pain. Patient denies any appetite loss. hand pain1 Pt has chronic d upuytren contraction both hand with hand pain. Pt denies any paresthesia. Pt takes ultram PRn for pain. and doing ok. 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 Pt denies any hand swelling, any redness or warmth. Pt failed NSAID. Pt takes ultram PRN for pain jock itch1 Pt has jock itch around groin area with itching Pt is taking OTC anti fungal but not helping. ADD Patient has ADD. Patient has inattentive type. Patient feels scatterbrained. Patient feel poor focus and difficulty completing tasks. Patient states that Adderall is helping with symptoms. Patient feels more focused. Pt feels more energy. Patient denies any headache, dry mouth, headache, chest pain. Patient denies any appetite loss. pain1 Pt has chronic d upuytren contraction both hand with hand pain. Pt denies any paresthesia. Pt takes ultram PRn for pain. and doing ok. 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 Pt denies any hand swelling, any redness or warmth. Pt failed NSAID. Pt takes ultram PRN for pain liver cancer Additional infor shona: Pt has liver carcinoma and he just had MRI done with the confirmed diagnosis. Pt denies any abd pain. pt has jina with liver doctor next week at [facility]. Pt wants referral to 2nd opinion. ADD Patient has ADD. Patient has inattentive type. Patient feels scatterbrained. Patient feel poor focus and difficulty completing tasks. Patient states that Adderall is helping with symptoms. Patient feels more focused. Pt feels more energy. Patient denies any headache, dry mouth, headache, chest pain. Patient denies any appetite loss. pain Pt has chronic d upuytren contraction both hand with hand pain. Pt denies any paresthesia. Pt takes ultram PRn for pain. and doing ok. 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 Pt denies any hand swelling, any redness or warmth. Pt failed NSAID. Pt takes ultram PRN for pain ADD Patient has ADD. Patient has inattentive type. Patient feels scatterbrained. Patient feel poor focus and difficulty completing tasks. Patient states that Adderall is helping with symptoms. Patient feels more focused. Pt feels more energy. Patient denies any headache, dry mouth, headache, chest pain. Patient denies any appetite loss. pain Pt has chronic d upuytren contraction both hand with hand pain. Pt denies any paresthesia. Pt takes ultram PRn for pain. and doing ok Pt still has not seen hand specialist yet. 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 Pt denies any hand swelling, any redness or warmth. Pt failed NSAID. Pt takes ultram PRN for pain liver nodule1 Pt has liver cir rhosis and history of treated hep C. Pt sees GI at [facility]. Pt had liver ultrasound done recently which showed liver nodule. Pt will do more lab work and liver MRI to rule out liver neoplasm Pt denies any abd pain ADD Patient has ADD. Patient has inattentive type. Patient feels scatterbrained. Patient feel poor focus and difficulty completing tasks. Patient states that Adderall is helping with symptoms. Patient feels more focused. Pt feels more energy. Patient denies any headache, dry mouth, headache, chest pain. Patient denies any appetite loss. pain Pt has chronic d upuytren contraction both hand with hand pain. Pt denies any paresthesia. Pt takes ultram PRn for pain. and doing ok Pt still has not seen hand specialist yet. 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 Pt denies any hand swelling, any redness or warmth. Pt failed NSAID. Pt takes ultram PRN for pain ear pain1 Pt needs annual physical. Pt has liver cirrhosis with portal hypertension s/p treated hep C. Pt sees GI. Pt c/o right ear canal swelling and pain since last week. Pt denies any drainage or hearing loss Pt wore ear bud which maybe dirty per patient last week. Pt denies any hearing loss. Pt has chronic hand pain due to dupuytren contracture. Pt denies any hand numbness and tingling. pt denies any weakness. Pt needs ultram refilled. Pt has ADD. pt doing ok with adderall. Pt has GERd and he takes omeprazole daily. pt also has portal hypertension and he takes coreg from GI. Pt currently feels fine. Pt denies any complaints ADD Patient has ADD. Patient has inattentive type. Patient feels scatterbrained. Patient feel poor focus and difficulty completing tasks. Patient states that Adderall is helping with symptoms. Patient feels more focused. Pt feels more energy. Patient denies any headache, dry mouth, headache, chest pain. Patient denies any appetite loss. pain Pt has chronic d upuytren contraction both hand with hand pain. Pt denies any paresthesia. Pt takes ultram PRn for pain. and doing ok Pt still has not seen hand specialist yet. 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 Pt denies any hand swelling, any redness or warmth. Pt failed NSAID. Pt takes ultram PRN for pain liver nodule1 Pt has liver cir rhosis from history of alcohol and also hep C. He was treated for hep C. He is seeing Liver specialist at [facility] now. He is on coreg and omeprazole. Pt does not have any GI bleeding .Pt denies any abd pain Pt had liver ultrasound done which showed ? nodule and he was told to repeat u/s in 3 months ADD Patient has ADD. Patient has inattentive type. Patient feels scatterbrained. Patient feel poor focus and difficulty completing tasks. Patient states that Adderall is helping with symptoms. Patient feels more focused. Pt feels more energy. Patient denies any headache, dry mouth, headache, chest pain. Patient denies any appetite loss. pain Pt has chronic d upuytren contraction both hand with hand pain. Pt denies any paresthesia. Pt takes ultram PRn for pain. and doing ok Pt still has not seen hand specialist yet. 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 Pt denies any hand swelling, any redness or warmth. Pt failed NSAID ADD Patient has ADD. Patient has inattentive type. Patient feels scatterbrained. Patient feel poor focus and difficulty completing tasks. Patient states that Adderall is helping with symptoms. Patient feels more focused. Pt feels more energy. Patient denies any headache, dry mouth, headache, chest pain. Patient denies any appetite loss. pain Pt has chronic d upuytren contraction both hand with hand pain. Pt denies any paresthesia. Pt takes ultram PRn for pain. and doing ok Pt still has not seen hand specialist yet. 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 Pt denies any hand swelling, any redness or warmth. Pt failed NSAID ADD Patient has ADD. Patient has inattentive type. Patient feels scatterbrained. Patient feel poor focus and difficulty completing tasks. Patient states that Adderall is helping with symptoms. Patient feels more focused. Pt feels more energy. Patient denies any headache, dry mouth, headache, chest pain. Patient denies any appetite loss. pain Pt has chronic d upuytren contraction both hand with hand pain. Pt denies any paresthesia. Pt takes ultram PRn for pain. and doing ok Pt still has not seen hand specialist yet. 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 Pt denies any hand swelling, any redness or warmth. Pt failed NSAID pain Pt has chronic d upuytren contraction both hand with hand pain. Pt denies any paresthesia. Pt takes ultram PRn for pain. and doing ok Pt still has not seen hand specialist yet. 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 Pt denies any hand swelling, any redness or warmth. Pt failed NSAID ADD Patient has ADD. Patient has inattentive type. Patient feels scatterbrained. Patient feel poor focus and difficulty completing tasks. Patient states that Adderall is helping with symptoms. Patient feels more focused. Pt feels more energy. Patient denies any headache, dry mouth, headache, chest pain. Patient denies any appetite loss. Pt saw psychiatrist at [facility] who recommended wellbutrin for him, which he tried a failed in the past pain Pt has chronic d upuytren contraction both hand with hand pain. Pt denies any paresthesia. Pt takes ultram PRn for pain. and doing ok Pt still has not seen hand specialist yet. 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 Pt denies any hand swelling, any redness or warmth ADD Patient has ADD. Patient has inattentive type. Patient feels scatterbrained. Patient feel poor focus and difficulty completing tasks. Patient states that Adderall is helping with symptoms. Patient feels more focused. Pt feels more energy. Patient denies any headache, dry mouth, headache, chest pain. Patient denies any appetite loss. Pt saw psychiatrist at [facility] who recommended wellbutrin for him, which he tried a failed in the past ADD Patient has ADD. Patient has inattentive type. Patient feels scatterbrained. Patient feel poor focus and difficulty completing tasks. Patient states that Adderall is helping with symptoms. Patient feels more focused. Pt feels more energy. Patient denies any headache, dry mouth, headache, chest pain. Patient denies any appetite loss. pain Pt has chronic d upuytren contraction both hand with hand pain. Pt denies any paresthesia. Pt takes ultram PRn for pain. and doing ok Pt still has not seen hand specialist yet. Pt has been working a lot ADD Patient has ADD. Patient has inattentive type. Patient feels scatterbrained. Patient feel poor focus and difficulty completing tasks. Patient states that Adderall is helping with symptoms. Patient feels more focused. Pt feels more energy. Patient denies any headache, dry mouth, headache, chest pain. Patient denies any appetite loss. pain Pt has chronic d upuytren contraction both hand with hand pain. Pt denies any paresthesia. Pt takes ultram PRn for pain. and doing ok Pt still has not seen hand specialist yet. Pt has been working a lot GERD1 Pt has chronic G ERD. Pt takes omeprazole daily Pt failed pepcid pt had benign EGD Pt denies any abd pain Pt doing ok with omeprazole ADD Patient has ADD. Patient has inattentive type. Patient feels scatterbrained. Patient feel poor focus and difficulty completing tasks. Patient states that Adderall is helping with symptoms. Patient feels more focused. Pt feels more energy. Patient denies any headache, dry mouth, headache, chest pain. Patient denies any appetite loss. Pt has been working a lot pain Pt has chronic d upuytren contraction both hand with hand pain. Pt denies any paresthesia. Pt takes ultram PRn for pain. and doing ok Pt still has not seen hand specialist yet. Pt has been working a lot ADD Patient has ADD. Patient has inattentive type. Patient feels scatterbrained. Patient feel poor focus and difficulty completing tasks. Patient states that Adderall is helping with symptoms. Patient feels more focused. Pt feels more energy. Patient denies any headache, dry mouth, headache, chest pain. Patient denies any appetite loss. pain Pt has chronic d upuytren contraction both hand with hand pain. Pt denies any paresthesia. Pt takes ultram PRn for pain. and doing ok hearing loss1 Pt has bilateral hearing loss. Pt denies any ear pain Pt went to see [facility] but the prices is too expensive Pt is looking for cheaper alternatives. pain Pt has chronic d upuytren contraction both hand with hand pain. Pt denies any paresthesia. Pt takes ultram PRn for pain. and doing ok GERD Pt has chronic G ERD, Pt takes omeprazole and doing ok. Pt had benign colonoscopy recently. EGD showed portal hypertensive gastropathy with non bleeding esophageal varices. Pt doing ok. Pt denies any abd pain ADD Patient has ADD. Patient has inattentive type. Patient feels scatterbrained. Patient feel poor focus and difficulty completing tasks. Patient states that Adderall is helping with symptoms. Patient feels more focused. Pt feels more energy. Patient denies any headache, dry mouth, headache, chest pain. Patient denies any appetite loss. physical Pt needs annual physical Pt has hep C and liver cirrhosis. Pt had EGD done which showed esophageal varices. Pt denies any hematemesis. Pt is seeing liver specialist pt has hep C treated already Pt has ADD. Pt takes adderall and doing ok Pt has chronic arthritic hand pain Pt takes ultram PRN for pain Pt has not seen hand specialist yet. Pt also has low platelet Pt sees hematology Pt has liver cirrhosis. pt denies any abd pain or jaundice. Pt has chronic GERD and he is doing ok with omeprazole. Pt has hearing loss Pt unable to get hearing aid due to insurance issue. pain Pt has chronic d upuytren contraction both hand with hand pain. Pt denies any paresthesia. Pt takes ultram PRn for pain. Pt needs ultram refilled. GERD Pt had EGD done which showed non bleeding varices with portal vein HTN. colonoscopy was benign per pt. his hep C was cleared per patient. he does have gastropathy. Pt takes omeprazole daily Pt failed pepcid ADD Patient has ADD. Patient has inattentive type. Patient feels scatterbrained. Patient feel poor focus and difficulty completing tasks. Patient states that Adderall is helping with symptoms. Patient feels more focused. Pt feels more energy. Patient denies any headache, dry mouth, headache, chest pain. Patient denies any appetite loss. hearing loss1 Pt has bilateral hearing loss. Pt is candidate for hearing aid. pt denies any ear pain anxiety1 Pt has anxiety a nd depression Pt does not want medication Pt has not started counseling yet. Pt states that he actually feels better in terms of his mood Pt denies any suicidal or homicidal thought Pt denies any crying spells monoclonal1 Pt has MGUS and he is seeing oncology and is being monitored .Pt does not have MM diagnosis at this point ADD Patient has ADD. Patient has inattentive type. Patient feels scatterbrained. Patient feel poor focus and difficulty completing tasks. Patient states that Adderall is helping with symptoms. Patient feels more focused. Pt feels more energy. Patient denies any headache, dry mouth, headache, chest pain. Patient denies any appetite loss. ADD Patient has ADD. Patient has inattentive type. Patient feels scatterbrained. Patient feel poor focus and difficulty completing tasks. Patient states that Adderall is helping with symptoms. Patient feels more focused. Pt feels more energy. Patient denies any headache, dry mouth, headache, chest pain. Patient denies any appetite loss. depression1 Pt c/o feeling a nxious and depression. Pt feels poor motivated pt denies any suicidal or homicidal thought. Pt denies any crying spells. Pt wants counseling. Pt does not want to try medication hearing Pt has chronic b ilateral hearing loss with tinnitus Pt denies any ear pain. GERD1 Pt has GERD. Pt had EGD and colonoscopy done recently which showed diverticulosis only per pt. Pt takes omeprazole and doing ok. hand pain1 Pt has chronic d upuytren contraction both hand with hand pain. Pt denies any paresthesia. Pt takes ultram PRn for pain. Pt needs ultram refilled. Pt has not seen hand specialist yet GERD1 Pt has chronic G ERD and he takes omeprazole and doing ok. Pt has hep C. Pt just finished chemo therapy for hep C. Pt needs omeprazole refilled. platelet1 Pt has low plate let .Pt sees hematology and is being worked up for MM. Pt will get bone scan soon ADD Patient has ADD. Patient has inattentive type. Patient feels scatterbrained. Patient feel poor focus and difficulty completing tasks. Patient states that Adderall is helping with symptoms. Patient feels more focused. Pt feels more energy. Patient denies any headache, dry mouth, headache, chest pain. Patient denies any appetite loss. hand pain1 Pt has chronic d upuytren contraction both hand with hand pain. Pt denies any paresthesia. Pt takes ultram PRn for pain. Pt needs ultram refilled hand pain1 Pt has chronic d upuytren contraction both hand with hand pain. Pt denies any paresthesia. Pt has jina with [facility] hand specialist in two weeks. liver cirrhosis1 Pt has liver ci rrhosis and low platelet. Pt has hep C. Pt is seeing GI and he has two more weeks left for hep C chemo treatment. Pt tolerates medication well. Pt denies any bleeding GERD1 Pt has GERD. Pt doing ok with omeprazole. Pt failed pepcid. ADD Patient has ADD. Patient has inattentive type. Patient feels scatterbrained. Patient feel poor focus and difficulty completing tasks. Patient states that Adderall is helping with symptoms. Patient feels more focused. Pt feels more energy. Patient denies any headache, dry mouth, headache, chest pain. Patient denies any appetite loss. Pt states that he wants to go back to 30 mg adderall again. Pt feels that 20 mg is not doing much for him anymore ADD Pt has ADD Pt st ates that adderall 30 mg is too strong and he wants to go down to 20 mg for now. hand pain1 Pt has chronic d upuytren contraction both hand with hand pain. Pt has not heard from [facility] plastic yet hep C Pt has hep C and liver cirrhosis Pt is seeing liver specialist and he is getting treated for hep C pt denies any abdominal bloating Pt does have chronic abdominal pain Pt is seeing GI currently. Pt wants medical marijuana form hand hand1 Pt has chronic d upuytren contraction both hand with hand pain Pt wants to get it fixed now. Pt has hand pain daily ADD Pt has ADD Pt st ates that 20 mg is not working. Pt states that he tried 30 mg which helps Pt wants to go higher on adderall. Pt unable to focus on 20 mg adderall. Pt states that he feels very tired currently. Pt denies any snoring or any trouble with breathing at night contracture1 Pt has chronic d upture contracture both hand. Pt has flexion 4th and 5th finger GERD1 Pt has chronic G ERD pt takes omeprazole and doing ok pt needs refill. Pt will do EGD soon liver cirrhosis1 Pt has chronic liver cirrhosis with hepatitis C .pt is seeing GI specialist currently at [facility] Pt just. Pt had fibroscan at [facility] Pt denies any abd pain or jaundice hep C Pt has hep C Pt is seeing liver specialist and he is on epiclusa now. He has low platelet due to above He does not have any bleeding or bruising. Pt sees hematology ADD Pt has ADD, inat tentive type .PT used to take adderall but has ont had it for several years. 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 Pt notices more bruising recently Pt denies any bleeding. bilirubin1 Pt has high bili Pt denies any jaundice or abdominal pain LFT1 Pt has high LFT .Pt has watermaster untreated hep C. Pt has jina with liver specialist in December . hep C Pt has hep C. Pt needs colonoscopy. Pt has appointmnt for colonoscopy at [facility] in February Pt did not mention to GI about he p C treatment GERD1 Pt has chronic G ERD Pt has been taking nexium OTC daily for several years. Pt was noncompliant with EGD Pt failed zantac and pepcid pt wants a script for omeprazole chronic pain1 Pt has chronic b ack and hand pain .Pt wants ultram PRN for pain. Pt has arthritis of hand. Pt failed NSAID Pt denies any sciatica or any loss of bladder control or any leg numbness. physical Pt needs annual physical. Pt has chronic hep C. Pt is noncompliant with treatment Pt denies any abd pain or jaundice or bleeding issue. Pt c/o left eye watery and mild itching for one year. Pt notices intermittent redness Pt denies any FB, pt denies any eye pain. Pt denies any vision change. Pt denies any other complaints finger issue1 Pt jammed right ring finger back in 1975 while he was in the [employer]. he gradually notices the flexion of right ring finger around PIP joint over the years. He states that he has pain around PIP joint with mild swelling Pt has to force his right ring finger to extend it. Pt denies any numbness or tingling Pt denies any redness or warmth Pt has chronic bilateral 5th finger tendon contraction. Pt also has some arthritis both hand Pt has chronic baseline hand pain Hpe C Pt has chronic h ep C Pt still has not had it treated. Pt has mild intermittent vague abdominal pain. Pt denies any jaundice Pt denies any swelling. pt has mild nausea ADD Pt has ADD Pt edwards s chornic attention problem Pt takes adderall and is helping him. Pt may function better and also focus better. Pt denies any abd pain or any appetite loss chronic pain Pt ghas chronic shoudler and back pian Pt denies any worsening pain. Pt denies any loss of bowel or bladdercontrol Pt takes ultram PRN and doing ok hep C P thas hep C. Pt still has not gotten treated yet. Pt told me since i am not in network PCP, I may not refer him to GI. Pt also has not done EGD and colonoscopy either. Pt has low platelet and he seen hematology once but never follwed up. Pt denies any bleeding chronic pain1 Pt has chornic s houlder and back pain. Pt denies any loss of bowel or bladder control. Pt denies any sciatica. Pt takes ultram for pain PRN ADD1 Pt takes adderal l and doing ok. Pt denies any abd pain or any appetite loss. Pt feels more focused hep C Pt has active he p C. Pt has GERD ,Pt is taking nexium. Pt has appointment with Dr. Flores for EGD and colonoscopy and hep C soon. Pt denies any abd pain GERD Additional infor mation:Pt has chronic GERD and he is off omeprazole on his own and is taking OTC nexium now. Pt also notices some constipation in the morning time for the past 3-4 months. Pt has to sit on toilet for ever to have bowel movemnet. Pt denies any rectal bleeding or weight loss. Pt denies any abd pain. hepatitis C Pt has hepatitis C and elevated LFT. Pt denies any abd pain or juandice. His liver ultrasound is normal. chronic pain Pt has chornic s houlder and back pain. Pt denies any loss of bowel or bladder control. Pt has degenerative disease. Pt takes ultram PRN for pain and working ok pain pt has chronic s houlder and back apin. No worsening pain ADD Pt takes adderal l. Pt doing ok liver pt has liver dis ease and low platelet. Pt has not done ultrasound and lab yet. Pt denies any bruising or blood loss Instructions Date Instruction Additional Infor mation Weight gain advised Related to B jean mass index (BMI) 23.0-23.9, adult Dietary counseling Related to Di etary surveillance counseling Decrease caloric intake Related to Dietary surveillance counseling Assessments Type Assessment Date assessment Encounter for general adult medi brenton exam w abnormal findings assessment Chronic pain syndrome assessment Attention deficit assessment Esophageal varices without bleed ing assessment Liver cell carcinoma Mental Status Date Cognitive Assessment Orientation - [place] ed to time, place, person, situation.
--- OUTSIDE RECORDS SUMMARY | 2024-10-08 14:14 | XMS_ITS | Clinical Summary ---
Author Organization [email or web address] Address [address] [facility] [place] [address] Care Team Providers Care Textile Knitter Name Role Phone Derrell Barrow MD Primary Care Provider [phone] Source Comments [email or web address],non-owned Affiliates and Associated Physician Practices is amultiple site organization consisting of ambulatory clinics and hospital sitesin [place], [place], [place] and [place]. This disclosure is being madepursuant to the Care Everywhere program and may not contain all information available regarding this patient. Last updated 18.[employer] Allergies No known active allergies Medications * Be aware that medications may not be up to date on this document. Alwaysverify current medications with the patient. omeprazole (PRILOSEC) 20 MG capsule TK 1 C PO QD AC 12/04/2019 Active traMADol (ULTRAM) 50 MG tablet TK 1 T PO BID PRN 11/07/2019 Active Milk Thistle 1000 MG CAPS Active PAPAYA PO Active amphetamine-dext roamphetamine (ADDERALL) 30 MG tablet Take 1 tablet by mouth 04/18/2020 Active TURMERIC PO Take by mouth once daily Active Naproxen Sodium (ALEVE) 220 MG Take by mouth once daily as needed Active LECITHIN CONCENTRATE PO Activ e Active Problems Problem Noted Date Diagnosed Date [...] at Not on file Legal Sex Male 4:12 AM CDT Gender Identity Not on file Sexual Orientation Not on file Last Filed Vital Signs Vital Sign Reading Time Taken Comments Blood Pressure 151/89 07/25/2020 12:13 PM MD SENIOR RESEARCH SCIENTIST Pulse 86 07/25/2020 12:13 PM MD SENIOR RESEARCH SCIENTIST Temperature 36.2 C (97.2 F) 07/25/2020 12:13 PM MD SENIOR RESEARCH SCIENTIST Respiratory Rate 9 06/04/2020 2:53 PM MD SENIOR RESEARCH SCIENTIST Oxygen Saturation 97% 06/04/2020 2:53 PM MD SENIOR RESEARCH SCIENTIST Inhaled Oxygen Concentration - - Weight 78.1 kg (172 lb 3.2 oz) 07/25/2020 12:13 PM MD SENIOR RESEARCH SCIENTIST Height 182.9 cm (6') 07/25/2020 12:13 PM MD SENIOR RESEARCH SCIENTIST Body Mass Index 23.35 07/25/2020 12:13 PM MD SENIOR RESEARCH SCIENTIST Plan of Treatment Health Maintenance Due Date [...] COVID-19 VACCINE ( season) 2024 10/09/2020, 09/11/2020 DEPRESSION SCREENING 06/27/2024 LIPID TESTING 11/05/2024 11/06/2019 INFLUENZA VACCINE (Season Ended) 2025 03/27/2021, 05/13/2020, 03/26/2020 COLON MONITORING 06/04/2030 06/04/2020, 06/04/2020 COLONOSCOPY - [...] Management General On track( 021 12:20 PM MD SENIOR RESEARCH SCIENTIST) Viktoriya Seymour, RN Note: Expected end date: ongoing Interventions: Take all medications as prescribed Procedures Procedure Name Priority Date/Time Associated Diagnosis Comments HEPATITIS C RNA QUANTITATIVE Routine 07/25/2020 1:10 PM MD SENIOR RESEARCH SCIENTIST Cirrhosis of liver without ascites, unspecified hepatic cirrhosis type ENDOSCOPY, COLON, SCREENING Routine 06/04/2020 1:49 PM MD SENIOR RESEARCH SCIENTIST LIPID PROFILE (EXTERAL RESULT ENTRY) Routine 11/06/2019 from Last 3 Months or Most Recently Relevant to Health Maintenance Results * HEPATITIS C RNA QUANTITATIVE (07/25/2020 1:10 PM MD SENIOR RESEARCH SCIENTIST) Hepatitis C RNA PCR, Interp Not Detected Not Detected 07/31/2020 11:09 AM MD SENIOR RESEARCH SCIENTIST [facility] MICROBIOLOGY Blood BLOOD SPECIMEN / Unknown Lab Venipuncture / Unknown 07/25/2020 1:10 PM MD SENIOR RESEARCH SCIENTIST 07/25/2020 4:12 PM MD SENIOR RESEARCH SCIENTIST [facility] MICROBIOLOGY - 07/31/2020 11:09 AM MD SENIOR RESEARCH SCIENTIST The Hepatitis C viral (HCV) RNA analysis utilized a serum sample, real-time reverse highwall drill operator PCR, and is reported as Not Detected, [...] the isolation of HCV RNA with reverse highwall drill operator of genomic HCV RNA followed by real-time PCR in the presence of an unrelated RNA internal control. The internal control ensures that RNA is isolated, and that no general significant inhibitors of the RT-PCR process are present. The analysis was performed using a U.S. FDA approved test methodology ([employer] Real Time HCV). us Tahmina Tyler APRN-BULL WHEEL WORKER LAB - CHEMISTRY SAROJ VALDEZ Final Result [facility] MICROBIOLOGY [address] [place] [address], [facility] [phone] * ENDOSCOPY, COLON, SCREENING (06/04/2020 1:49 PM MD SENIOR RESEARCH SCIENTIST) Report Endoscopy POC Endoscopy Department Report _ Patient Name: Ron Coy Procedure Date: 06/04/2020 1:49 PM Date of : 1955 Classification: Outpatient Gender: Male Ethnicity: Not or Race: White _ Providers: Frances Teajda MD Referring MD: Derrell Barrow (Referring MD) [...] and oxygen saturations were monitored continuously. The [id number] was introduced through the anus and advanced to the cecum, identified by appendiceal orifice and ileocecal valve. The colonoscopy was performed without difficulty. The patient tolerated the procedure well. The quality of the bowel preparation was evaluated using the BBPS ([place] Bowel Preparation Scale) with scores of: Right [...] or abscess without bleeding CPT copyright 2019 [employer]. All rights reserved. The codes documented in this report are preliminary and upon site surveyor review may be revised to meet current compliance requirements. ____ Frances Tejada MD 06/04/2020 2:19:46 PM This report has been signed electronically. Note Initiated On: 06/04/2020 1:49 PM Number of Addenda: [address] [id number] [facility] 06/04/2020 1:49 PM MD SENIOR RESEARCH SCIENTIST us Frances Tejada MD GI PROCEDURE ORDERABLES Ed ited Result - Final [facility] * (ABNORMAL) LIPID PROFILE (EXTERAL RESULT ENTRY) (11/06/2019) Cholesterol (EXTERNAL RESULT) 181 0 - 200 mg/dL Triglycerides (EXTERNAL RESULT) 94 0 - 150 mg/dL HDL (EXTERNAL RESULT) 61 >=40 mg/dL LDL (EXTERNAL RESULT) 101(A) 0 - 100 mg/dL VLDL (EXTERNAL RESULT) Chol HDL Ratio (External Result) 3.0 0.0 - 5.0 Blood BLOOD SPECIMEN / Unknown 11/06/2019 us Historical Provider LAB - CHEMISTRY ORDERABLE S Final Result from Last 3 Months or Most Recently Relevant to Health Maintenance Insurance [employer] Care Teams Textile Knitter Relationship Specialty Start Date End Date Derrell Barrow MD PCP - General Family Medicine 10/18/19
--- OUTSIDE RECORDS SUMMARY | 2024-10-08 14:14 | XMS_ITS | Clinical Summary ---
Author Organization [facility] Address [facility] [place] [address] Care Team Providers Care Support Analyst Name Role Phone Unavailable Primary Care Provider [...] Vaccines (1 of 2) 2006 Pneumococcal Vaccine: 50+ Ye ars (1 of 1 - PCV) [...]
--- OUTSIDE RECORDS SUMMARY | 2024-10-08 14:14 | XMS_ITS | Clinical Summary ---
Author Organization [facility] Address [address] [facility] [address] [place] [address] Phone Care Team Providers Care Vulcanizer Rubber Plate Name Role Phone Derrell Barrow Primary Care Provider [phone] Allergies No known active allergies Medications Homeopathic [...] Lnp-s, Pf, 3 0 Mcg/0.3 Ml Dose ([place]) 10/09/2020,09/11/2020 Influenza Vaccine, Quadrivalent, PF 03/26/2020 Zoster [...] years) (1 of 1 - PCV) 2006 SARS-COV-2 Immunization ( season) 2024 06/11/2021, 10/09/2020, 09/11/2020 Influenza Immunization (Seas on Ended) 2025 03/26/2020 Respiratory Syncytial Virus (RSV) Immunization (Adult) (1 [...] age to complete this topic Care Teams Vulcanizer Rubber Plate Relationship Specialty Start Date End Date Derrell Barrow [address] [facility] [facility] [place] [address] PCP - General Family Medicine 11/13/19
--- OUTSIDE RECORDS SUMMARY | 2024-10-08 14:14 | XMS_ITS | Referral Summary ---
Author Organization [facility] [address] [facility] Address [address] [place] [address] Care Team Providers Care As400 Programmer Analyst Name Role Phone Derrell Barrow MD Primary Care Provider [phone] Long Peters MD Unavailable [phone] Allergies No known active allergies Medications [...] 08/06/2022 Assessment & Plan (08/06/2022 11:49 AM DEBATE DIRECTOR): Plt count 70. Likely related to liver [...] he has had follow-up EGD's at the [place]. if this has not been done, further [...] on file Legal Sex Male 11:44 AM DEBATE DIRECTOR Gender Identity Male 07/13/2022 7:13 PM DEBATE DIRECTOR Sexual Orientation Straight 07/13/2022 7: 13 PM DEBATE DIRECTOR Last Filed Vital Signs Vital Sign Reading Time Taken Comments Blood Pressure 143/88 05/17/2024 2:49 PM DEBATE DIRECTOR 1st BP reading 147/87 Pulse 66 05/17/2024 2:46 PM DEBATE DIRECTOR Temperature 36.3 C (97.4 F) 05/17/2024 2:46 PM DEBATE DIRECTOR Respiratory Rate 16 05/17/2024 2:46 PM DEBATE DIRECTOR Oxygen Saturation 100% 05/17/2024 2:5 0 PM DEBATE DIRECTOR Inhaled Oxygen Concentration - - Weight 72 kg (158 lb 12.8 oz) 05/17/2024 2:46 PM DEBATE DIRECTOR Height 182.9 cm (6' 0.01 ) 05/17/2024 2 :46 PM DEBATE DIRECTOR Body Mass Index 21.53 05/17/2024 2:46 PM DEBATE DIRECTOR Plan of Treatment Scheduled Procedures Name Priority Associated Diagnoses Date/Ti me TRANSPLANT LIVER Hepatocellular carcinoma (HCC) Medical Devices Implanted Type Area Intercell Connector Placer Device Identifier Shelf Expiration Date Model / Serial / Lot [employer]eterion Embosphere Prefill Saline Syringe Compressible Nonaggregate [id number] - [id number] Implanted:Qty: 1 on 08/05/2022 at [facility] [employer] 04/18/2025 [id number] / / [id number] [employer] Daniela Angio-Seal Vip 6fr Closere Device [id number] - [id number] Implanted:Qty: 1 on 08/05/[address] [facility] [employer] [facility] 04/26/2023 [id number] / / [id number] [facility] [employer] Embosphere Prefill Saline Syringe Compressible Nonaggregate S220 - [id number] Implanted:Qty: 1 on 12/01/2022 at [facility] [employer] [id number] [facility] / / [facility] [employer] [facility] Angio-Seal Vip 6fr Closere Device [id number] - [id number] Implanted:Qty: 1 on 12/01/[address] [facility] [employer] [facility] 06/26/2023 [id number] / / [id number] Procedures Procedure Name Priority Date/Time Associated Diagnosis Comments PSA SCREEN Routine 07/15/2022 5:00 PM DEBATE DIRECTOR Acute hepatitis C virus infection without hepatic coma Hepatocellular carcinoma (HCC) HEPATITIS C RNA, QUANTITATIVE, PCR Routine 07/15/2022 4:37 PM DEBATE DIRECTOR Acute hepatitis C virus infection without hepatic coma Hepatocellular carcinoma (HCC) from Last 3 Months or Most Recently Relevant to Health Maintenance Results * PSA screen (07/15/2022 5:00 PM DEBATE DIRECTOR) PSA-Total 0.22 <=5.40 ng/mL ROOPA CUNHA Comment: [...] last revised 21. Blood 07/15/2022 5:00 PM DEBATE DIRECTOR 07/15/2022 5:45 PM DEBATE DIRECTOR us Kavin Rios MD LAB BLOOD ORDERABLES F inal Result ROOP[facility] C[facility] [place] [address] * Hepatitis C (HCV) RNA PCR, quantitative (07/15/2022 4:37 PM DEBATE DIRECTOR) [facility] HCV RNA result Not Detected ROOPA CUNHA Comment: The quantifiable range of this assay is 15 IU/mL to 100,000,000 IU/mL (1.18 log IU/mL to 8.00 log IU/mL). Testing was performed by the KIMBERLY 6800 HCV Test ([employer] Testing performed at [facility] Current Interpretive Data was last revised on 2021 Blood 07/15/2022 4:37 PM DEBATE DIRECTOR 07/15/2022 5:49 PM DEBATE DIRECTOR us Kavin Rios MD LAB MICROBIOLOGY - GEN ERAL ORDERABLES Final Result [facility] Department [place] [address] from Last 3 Months or Most Recently Relevant to Health Maintenance Insurance MEDICARE [facility] IDCT MEDICARE [facility] [place] [facility] Advance Directives For more information, please contact: [phone] * Full Code (Latest Code Status on File) Date Activated Date Inactivated Comments 12/01/2022 10:37 AM 12/02/2022 1:56 PM * Full Code Date Activated Date Inactivated Comments 12/01/2022 10:37 AM 12/01/2022 10:37 AM * Full Code Date Activated Date Inactivated Comments 08/05/2022 11:47 AM 08/06/2022 5:08 PM Care Teams As400 Programmer Analyst Relationship Specialty Start Date End Date Derrell Barrow MD [address] [place] [address] [place] [address] PCP - General Family Medicine 08/11/22 Long Peters MD [address] [place] [address] Consulting Physician Gastroenterology 05/11/24
--- OUTSIDE RECORDS SUMMARY | 2024-10-08 14:14 | XMS_ITS ---
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 Likely related to liver [...] he has had [facility]-up [facility]'s [facility] [place]. if this has not been done, further [...]
--- OUTSIDE RECORDS SUMMARY | 2024-10-08 14:14 | XMS_ITS | Clinical Summary ---
Author Organization [facility] [address] [facility] Address [address] [place] [address] Care Team Providers Care Coding Compliance Auditor Name Role Phone Derrell Barrow MD Primary Care Provider + [phone] Long Peters MD Unavailable [phone] Allergies No known active allergies Medications [...] 08/06/2022 Assessment & Plan (08/06/2022 11:49 AM PROJECT DEVELOPMENT ENGINEER): Plt count 70. Likely related to liver [...] he has had [place] if this has not been done, further [...] on file Legal Sex Male 11:44 AM PROJECT DEVELOPMENT ENGINEER Gender Identity Male 07/13/2022 7:13 PM PROJECT DEVELOPMENT ENGINEER Sexual Orientation Straight 07/13/2022 7: 13 PM PROJECT DEVELOPMENT ENGINEER Obstetrics History Last Filed Vital Signs Vital Sign Reading Time Taken Comments Blood Pressure 143/88 05/17/2024 2:49 PM PROJECT DEVELOPMENT ENGINEER 1st BP reading 147/87 Pulse 66 05/17/2024 2:46 PM PROJECT DEVELOPMENT ENGINEER Temperature 36.3 C (97.4 F) 05/17/2024 2:46 PM PROJECT DEVELOPMENT ENGINEER Respiratory Rate 16 05/17/2024 2:46 PM PROJECT DEVELOPMENT ENGINEER Oxygen Saturation 100% 05/17/2024 2:5 0 PM PROJECT DEVELOPMENT ENGINEER Inhaled Oxygen Concentration - - Weight 72 kg (158 lb 12.8 oz) 05/17/2024 2:46 PM PROJECT DEVELOPMENT ENGINEER Height 182.9 cm (6' 0.01 ) 05/17/2024 2 :46 PM PROJECT DEVELOPMENT ENGINEER Body Mass Index 21.53 05/17/2024 2:46 PM PROJECT DEVELOPMENT ENGINEER Plan of Treatment Scheduled Procedures Name Priority [...] history exists Medical Devices Implanted Type Area Electrical Assembler Device Identifier Shelf Expiration Date Model / Serial / Lot Crunched Prefill Saline Syringe Compressible Nonaggregate S220gh - [id number] Implanted:Qty: 1 on 08/05/2022 at [facility] [employer] 04/18/2025 [id number] / / [id number] [email or web address] Angio-Seal Vip 6fr Closere Device [id number] - [id number] Implanted:Qty: 1 on 08/05/2022 at [facility] [email or web address] 04/26/2023 [id number] / / [id number] [employer] Prefill Saline Syringe Compressible Nonaggregate S220gh - [id number] Implanted:Qty: 1 on 12/01/2022 at [facility] [employer] [id number] / / [email or web address] Angio-Seal Vip 6fr Closere Device [id number] - [id number] Implanted:Qty: 1 on 12/01/2022 at [facility] [employer] Daniela 06/26/2023 [id number] / / [id number] Procedures Procedure Name Priority Date/Time Associated Diagnosis Comments PSA SCREEN Routine 07/15/2022 5:00 PM PROJECT DEVELOPMENT ENGINEER Acute hepatitis C virus infection without hepatic coma Hepatocellular carcinoma (HCC) HEPATITIS C RNA, QUANTITATIVE, PCR Routine 07/15/2022 4:37 PM PROJECT DEVELOPMENT ENGINEER Acute hepatitis C virus infection without hepatic coma Hepatocellular carcinoma (HCC) from Last 3 Months or Most Recently Relevant to Health Maintenance Results * PSA screen (07/15/2022 5:00 PM PROJECT DEVELOPMENT ENGINEER) PSA-Total 0.22 <=5.40 ng/mL ROOPA CUNHA Comment: [...] last revised 21. Blood 07/15/2022 5:00 PM PROJECT DEVELOPMENT ENGINEER 07/15/2022 5:45 PM PROJECT DEVELOPMENT ENGINEER Kavin Rios MD LAB BLOOD ORDERABLES F inal Result ROOPA CUNHA [facility] Department [place] [address] * Hepatitis C (HCV) RNA PCR, quantitative (07/15/2022 4:37 PM PROJECT DEVELOPMENT ENGINEER) Pathologist [facility] HCV RNA result Not Detected ROOPA CUNHA Comment: The quantifiable range of this assay is 15 IU/mL to 100,000,000 IU/mL (1.18 log IU/mL to 8.00 log IU/mL). Testing was performed by the [employer] 6800 HCV Test ([employer] Testing performed at [facility] Current Interpretive Data was last revised on 2021 Blood 07/15/2022 4:37 PM PROJECT DEVELOPMENT ENGINEER 07/15/2022 5:49 PM PROJECT DEVELOPMENT ENGINEER Kavin Rios MD LAB MICROBIOLOGY - GEN ERAL ORDERABLES Final Result ROOP[facility] Department [place] [address] from Last 3 Months or Most Recently Relevant to Health Maintenance Insurance MEDICARE [facility] [place] [facility] Advance Directives For more information, please contact: [phone] * Full Code (Latest Code Status on File) Date Activated Date Inactivated Comments 12/01/2022 10:37 AM 12/02/2022 1:56 PM * Full Code Date Activated Date Inactivated Comments 12/01/2022 10:37 AM 12/01/2022 10:37 AM * Full Code Date Activated Date Inactivated Comments 08/05/2022 11:47 AM 08/06/2022 5:08 PM Care Teams Coding Compliance Auditor Relationship Specialty Start Date End Date Derrell Barrow MD [address] [place] [address] PCP - General Family Medicine 08/11/22 Long Peters MD [address] [place] [address] Consulting Physician Gastroenterology 05/11/24
[2024-10-08 14:18] LABS: INR 1.1; Prothrombin Time 14.1 Seconds (11.1-14.7)
[2024-10-08 14:19] LABS: Partial Thromboplastin Time 21.1 Seconds (22.3-36.8)
[2024-10-08 14:37] LABS: Alanine Aminotransferase 31 U/L (6-50); Albumin Level 3.5 g/dL (3.5-5.1); Alkaline Phosphatase 87 U/L (38-126); Anion Gap 8 mmol/L (4-12); Aspartate Amino Transferase 27 U/L (17-59); Bilirubin,Total 0.8 mg/dL (0.2-1.3); Blood Urea Nitrogen 25 mg/dL (9-20); Calcium 8.8 mg/dL (8.4-10.2); Carbon Dioxide 26 mmol/L (22-30); Chloride 98 mmol/L (98-107); Estimated CRCL calculation 84 ml/min; Estimated Glomerular Filt Rate > 60; Glucose 127 mg/dL (65-110); Sodium 132 mmol/L (137-145)
[2024-10-08 16:03] LABS: Base Excess ABG 3.3 mEq/l (+/-2.0); Fractional Inspired Oxygen 21 %; HCO3 ABG 25.4 mEq/l (22.0-26.0); Oxygen Saturation ABG 96.6 % (95.0-100.0); PCO2 ABG 29.8 mmHg (35.0-45.0); PO2 FiO2 Ratio Arterial Blood 3.52 %; Total Hemoglobin 9.7 g/dL (12.0-18.0)
[2024-10-08 16:04] LABS: Device ROOM AIR; Modified Allen's Test Pass; Site Drawn RIGHT RADIAL; pH ABG 7.548 (7.350-7.450)
[2024-10-08] MEDS: PANTOPRAZOLE SODIUM IV 40 MG VIAL 80 MG IV PUSH (16:12)
[2024-10-08] MEDS: OCTREOTIDE ACETATE 500 MCG in SODIUM CHLORIDE 0.9% IV 99 ML 10 MCG IV CONT (16:26)
[2024-10-08] MEDS: OCTREOTIDE ACETATE 50 MCG/ML VIAL IV PUSH (16:26)
--- OUTSIDE RECORDS SUMMARY | 2024-10-08 17:05 | XMS_ITS | Continuity of Care Document ---
Author Name [facility] Organization [facility] Care Team Providers Care Circuit Breaker Assembler Name Role Phone [facility] Unavailable Unavailable Problems Combined list of problems from Department of Defense and [facility] Affairs facilities. It does not include entries that were removed or entered in error. Problem Status Onset Date Problem Type Date of Resolution Comments Source Child attention deficit disorder Active Condition [facility] Chronic hepatitis C Active Condition Feb 11, 2022 Entered By: GENEVIEVE CEE Comment: PCR negative s/p treatment [facility] Chronic Pain Syndrome ([facility] [id number]) Active Condition [facility] Dupuytren contracture Active Condition [facility] GERD - Gastro-Esophageal Reflux Disease ([facility] [id number]) Active Condition [facility] Hearing Loss ([facility] [id number]) Active Condition [facility] Hepatic cirrhosis Active Condition [facility] Hepatocellular carcinoma Active Condition Sep 24, 2022 Entered By: GENEVIEVE CEE Comment: TACE 08/05/2022 at [facility] History of colonic polyp Active Condition [facility] 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 Diagnosis: ICD-10-CM K74.60 Unspecified cirrhosis of liver Active Diagnosis [facility] Diagnosis: ICD-10-CM C22.0 Liver cell carcinoma Active Diagnosis [facility] Diagnosis: ICD-10-CM Z46.1 Encounter for fitting and adjustment of hearing aid Active Diagnosis [facility] Diagnosis: ICD-10-CM K21.9 Gastro-esophageal reflux disease without esophagitis Active Diagnosis [facility] Diagnosis: ICD-10-CM Z71.81 Spiritual or sabianist counseling Active Diagnosis [facility] Diagnosis: ICD-10-CM K92.1 Melena Active Diagnosis [facility] Diagnosis: ICD-10-CM Z01.818 Encounter for other preprocedural examination Active Diagnosis [facility] Diagnosis: ICD-10-CM K27.4 Chronic or unsp peptic ulcer, site unsp, with hemorrhage Active Diagnosis [facility] Admit Reason: GI BLEED,UNCLEAR SOURCE Active Diagnosis [facility] Diagnosis: ICD-10-CM K92.2 Gastrointestinal hemorrhage, unspecified Active Diagnosis [facility] Diagnosis: ICD-10-CM C80.1 Malignant (primary) neoplasm, unspecified Active Diagnosis [facility] Diagnosis: ICD-10-CM R13.11 Dysphagia, oral phase Active Diagnosis [facility] Diagnosis: ICD-10-CM D62 Acute posthemorrhagic anemia Active Diagnosis [facility] Diagnosis: ICD-10-CM I85.00 Esophageal varices without bleeding Active Diagnosis [facility] Admit Reason: ACUTE BLOOD LOSS ANEMIA Active Diagnosis [facility] Diagnosis: ICD-10-CM A41.89 Other specified sepsis Active Diagnosis [facility] Diagnosis: ICD-10-CM Z51.11 Encounter for antineoplastic chemotherapy Active Diagnosis [facility] Diagnosis: ICD-10-CM Z71.2 Person consulting for explanation of exam or test findings Active Diagnosis [facility] Diagnosis: ICD-10-CM Z23 Encounter for immunization Active Diagnosis [facility] Diagnosis: ICD-10-CM H90.3 Sensorineural hearing loss, bilateral Active Diagnosis [facility] Diagnosis: ICD-10-CM R13.10 Dysphagia, unspecified Active Diagnosis [facility] Diagnosis: ICD-10-CM H25.13 Age-related nuclear cataract, bilateral Active Diagnosis 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 Diagnosis: ICD-10-CM R49.8 Other voice and resonance disorders Active Diagnosis 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 Diagnosis: ICD-10-CM R11.10 Vomiting, unspecified Active Diagnosis [facility] Diagnosis: ICD-10-CM Z01.20 Encounter for dental exam and cleaning w/o abnormal findings Active Diagnosis [facility] Diagnosis: ICD-10-CM D10.6 Benign neoplasm of nasopharynx Active Diagnosis [facility] Diagnosis: ICD-10-CM B18.2 Chronic viral hepatitis C Active Diagnosis [facility] Diagnosis: ICD-10-CM H65.92 Unspecified nonsuppurative otitis media, left ear Active Diagnosis [facility] Diagnosis: ICD-10-CM H90.6 Mixed conductive and sensorineural hearing loss, bilateral Active Diagnosis [facility] Diagnosis: ICD-10-CM B37.81 Candidal esophagitis Active Diagnosis [facility] Medications Combined list of outpatient medications from Department of Defense and [facility] facilities.Medications provided include 1) outpatient medications from the last 15 months, and 2) patient-reported medications. Medication Details Route Status Patient Instructions Prescription Expires Prescription Number Last Dispense Date Ordering Provider Order Date Order Qty Source AL OH 400MG/MG OH 400MG/SIMET HICONE 40MG/5ML LIQUID(360M L) TAKE 5 ML BY MOUTH TWICE DAILY NEEDED ([place]) MIX IN 1 BOTTLE WITH LIDOCAIN E AND DIPHENHY DRAMINE TO CREATE MAGIC MOUTHWAS H ([place]) MIX IN 1 BOTTLE WITH LIDOCAIN E AND DIPHENHY DRAMINE TO CREATE MAGIC MOUTHWAS H ORAL 11/09/2023 [id number] Radha MASSEY NEOMA S 2023 1 [facility] AMPHETAMINE /DEXTROAMPH ETAMINE RESIN COMPLEX 30MG CAP,SA TAKE 1 CAPSULE BY MOUTH EVERY MORNING ORAL ACTIVE PACE,VICT OR M 2020 [facility] DIPHENHYDRA MINE HCL 12.5MG/5ML (ALC-F) LIQUID TAKE 5 ML BY MOUTH TWICE DAILY NEEDED *MAY CAUSE DROWSINE SS* MIX IN 1 BOTTLE WITH LIDOCAIN E AND MAALOX TO CREATE MAGIC MOUTHWAS H ORAL 11/09/2023 [id number] 4 BRYSONN NEOMA S 2023 120 [facility] ENSURE PLUS LIQUID STRAWBERRY TAKE 1 CANFUL BY MOUTH FOUR TIMES A DAY FOR NUTRITIO N/DIETAR Y SUPPLEME NTATION ORAL 08/05/2024 [id number] 4 LOTTIE SIMMONS SSE 2023 96 [facility] FLUCONAZ[facility]LE 200MG TAB TAKE ONE TABLET BY MOUTH ONCE A DAY FOR 21 DAYS FOR FUNGAL INFECTIO N ORAL 10/26/2023 [id number] 4 FREDDIE VICTOR 2023 21 [facility] FLUTICASONE PROPIONATE 50MCG/SPRAY SOLN,NASAL, 16GM INSTILL 1 SPRAY IN NOSTRIL( S) ONCE A DAY FOR RHINITIS (MUST BE USED DIRECTED FOR MINIMUM OF 21 DAYS TO PROVIDE ADEQUATE BENEFITS ) NASAL 02/17/2024 [id number] 4 TEETEE LACKEY 2022 2 [facility] FUROSEMIDE 20MG TAB TAKE ONE TABLET BY MOUTH EVERY MORNING ORAL 09/30/2024 [id number] 5 LOTTIE SIMMONS SSE 2024 30 [facility] FUROSEMIDE 20MG TAB TAKE ONE TABLET BY MOUTH EVERY MORNING FOR FLUID RETENTIO N (EDEMA) ORAL 08/26/2024 [id number] 5 SAI COATES IED 2024 15 [facility] HYDROXYZINE HCL 10MG TAB TAKE ONE TABLET BY MOUTH THREE TIMES A DAY NEEDED FOR PRURITIS *MAY CAUSE DROWSINE SS* ORAL DISCONT INUED 09/14/2024 [id number] 5 NATALYA OG N W 2024 21 [facility] HYDROXYZINE HCL 10MG TAB TAKE ONE TABLET BY MOUTH THREE TIMES A DAY NEEDED *MAY CAUSE DROWSINE SS* ORAL 09/30/2024 [id number] 5 LOTTIE SIMMONS SSE 2024 90 [facility] LECITHIN CAP,ORAL TAKE 1 TEASPOON BY MOUTH ONCE A DAY ORAL ACTIVE PACE,VICT OR 2020 [facility] LIDOCAINE HCL 2% LIQUID,VISC OUS TAKE 5 ML BY MOUTH TWICE DAILY NEEDED FOR ORAL PAIN SWISH AND SWALLOW* * MIX IN 1 BOTTLE WITH MAALOX AND DIPHENHY DRAMINE TO CREATE MAGIC MOUTHWAS H ORAL 11/09/2023 [id number] 4 Radha MASSEY S 2023 100 [facility] Radha LOPERAMIDE HCL 2MG CAP TAKE TWO CAPSULES BY MOUTH DIRECTED AT FIRST ONSET OF DIARRHEA THEN 1 CAPSULE AFTER EACH LOOSE STOOL UNTIL DIARRHEA FREE FOR 12 HOURS ORAL ACTIVE 07/14/2025 [id number] 5 LOTTIE SIMMONS SSE 2024 100 [facility] Garcia MILK THISTLE CAP/TAB TAKE 1 CAP/TAB BY MOUTH ONCE A DAY ORAL ACTIVE PACE,VICT OR M 2020 [facility] NYSTATIN [id number]/M L SUSP,ORAL TAKE 10 ML SWISH and SWALLOW FOUR TIMES A DAY - SHAKE WELL BEFORE USING. ORAL 05/16/2024 [id number] 4 ROB DUMONT S 2022 480 [facility] OMEPRAZOLE 40MG CAP,EC TAKE ONE CAPSULE BY MOUTH EVERY MORNING BEFORE A MEAL TO LOWER STOMACH ACID. TAKE 30 MINUTES PRIOR TO FOOD. ORAL ACTIVE 11/13/2024 [id number] 5 NATALYA OG 2024 180 [facility] OMEPRAZOLE 40MG CAP,EC TAKE ONE CAPSULE BY MOUTH EVERY MORNING BEFORE A MEAL TO LOWER STOMACH ACID. TAKE 30 MINUTES PRIOR TO FOOD. ORAL DISCONT INUED (EDIT) 04/19/2025 [id number] 5 SUKHJINDER KU 2023 90 [facility] OMEPRAZOLE 40MG CAP,EC TAKE ONE CAPSULE BY MOUTH EVERY MORNING BEFORE A MEAL TO LOWER STOMACH ACID. TAKE 30 MINUTES PRIOR TO FOOD. ORAL DISCONT INUED 04/07/2024 [id number] ME RHIANNON TTISA 2022 90 [facility] ONDANSETRON HCL 8MG TAB TAKE ONE TABLET BY MOUTH THREE TIMES A DAY NEEDED FOR NAUSEA/V OMITING ORAL ACTIVE 07/14/2025 [id number] 5 LOTTIE SIMMONS 2024 90 [facility] ONDANSETRON HCL 8MG TAB TAKE ONE TABLET BY MOUTH THREE TIMES A DAY FOR NAUSEA/V OMITING ORAL 10/28/2023 [id number] 4 FREDDIE VICTOR 2023 90 [facility] OXYCODONE HCL 5MG TAB TAKE ONE TABLET BY MOUTH EVERY 4 HOURS NEEDED FOR POST-OPE RATIVE PAIN . MAY CAUSE CONSTIPA TION ORAL 08/25/2023 [id number] 4 ZAMZAM PEARSON 2023 6 [facility] OXYMETAZOLI NE HCL 0.05% SOLN,NASAL SPRAY USE 1 SPRAY INTO NOSTRIL( S) TWICE DAILY NEEDED FOR NASAL CONGESTI ON . DO NOT USE MORE THAN 3 DAYS IN A ROW. NASAL 08/25/2023 [id number] 4 MICHEL,ZAMZAM H 2023 30 [facility] PAPAYA TAB,CHEWABL E CHEW AND SWALLOW FOUR TABLETS BY MOUTH ONCE A DAY ORAL ACTIVE ALLIE SPARKS OR M 2020 [facility] POTASSIUM CHLORIDE 20MEQ TAB,SA (DISPERSIBL E) TAKE ONE-HALF TABLET BY MOUTH ONCE A DAY FOR POTASSIU M SUPPLEME NTATION TAKE WITH FOOD ORAL 08/26/2024 [id number] 5 SAI COATES IED 2024 8 [facility] PREDNISONE 20MG TAB TAKE THREE TABLETS BY MOUTH EVERY MORNING TAKE WITH FOOD OR MILK. ORAL 09/15/2024 [id number] 5 LOTTIE SIMMONS 2024 90 [facility] PROPRANOLOL HCL 10MG TAB TAKE ONE-HALF TABLET BY MOUTH TWICE A DAY FOR VARICEAL PROPHYLA XIS ORAL ACTIVE 07/23/2025 [id number] 5 AQUILES MAYES 2024 45 [facility] PROPRANOLOL HCL 10MG TAB TAKE ONE TABLET BY MOUTH TWICE A DAY FOR VARICEAL PROPHYLA XIS ORAL DISCONT INUED (EDIT) 07/14/2025 [id number] 5 Abdiel MASSEY 2024 120 [facility] PROPRANOLOL HCL 10MG TAB TAKE ONE TABLET BY MOUTH TWICE A DAY FOR VARICEAL PROPHYLA XIS ORAL DISCONT INUED 06/28/2024 [id number] 4 Abdiel MASSEY A 2023 120 [facility] SALIVA,AMADOU FICIAL SPRAY,ORAL USE 3-5 SPRAYS BY MOUTH EVERY TWO HOURS NEEDED FOR DRY MOUTH AND THROAT ORAL 08/01/2024 [id number] 4 Rocky TELLEZ 2023 236 [facility] SODIUM CHLORIDE 0.65% SOLN,NASAL SPRAY USE 1 SPRAY INTO NOSTRIL( S) EVERY 2 HOURS WHILE AWAKE NASAL 07/26/2024 [id number] 4 ZAMZAM PEARSON H 2023 45 [facility] SPIRONOLACT ONE 50MG TAB TAKE ONE TABLET BY MOUTH ONCE A DAY ORAL ACTIVE 09/08/2025 [id number] 5 Abdiel MASSEY 2024 90 [facility] SULFAMETHOX AZOLE 800MG/TRIME THOPRIM 160MG TAB TAKE 1 TABLET BY MOUTH EVERY 24 HOURS (ONCE A DAY) TAKE WITH WATER/AV OID SUNLIGHT . ORAL 08/20/2024 [id number] 5 NEGRITO DENSON PH T 2024 2 [facility] TRAMADOL HCL 50MG TAB TAKE ONE TABLET BY MOUTH TWICE DAILY NEEDED ORAL ACTIVE PACE,VICT OR M 2020 [facility] TUMERIC CAP/TAB TAKE 1 CAPSULE BY MOUTH ONCE A DAY NEEDED ORAL ACTIVE PACE,VICT OR M 2020 [facility] TWOCAL HN LIQUID VANILLA TAKE 3 CANFULS BY MOUTH DIRECTED FOR NUTRITIO N/DIETAR Y SUPPLEME NTATION ORAL ACTIVE 08/04/2025 [id number] 5 SHAKILA PINEDA 2024 72 [facility] Immunizations Combined list of available immunizations from the Department of Defense and [facility] Affairs facilities. Immunization Series Date Given Administered By Site Reaction Lot Number CVX Code Drug Gem Stone Cutter Status Comments Source COVID-19 (Nervogrid), MRNA, LNP-S, PF, GHAZALA-SUCROSE, 30 MCG/0.3 ML (AGES 12+ YEARS) 2023 KATHY PEREZ LEFT DELTO ID [id number] 309 complet ed Booster for Series, ADMINISTE RED AT OR, Patient tolerated well, informed to wait 15 minutes [facility] INFLUENZA, HIGH-DOSE, TRIVALENT, PF 2023 KATHY PEREZ NNITRAMY A LEFT DELTO ID [id number] A 135 complet ed ADMINISTE RED AT OR, Patient tolerated well [facility] INFLUENZA, HIGH-DOSE, QUADRIVALENT 2022 AG GIRON LEFT DELTO ID [id number] A 197 complet ed Completed Series, ADMINISTE RED AT OR, [facility] COVID-19 (PFIZER), MRNA, LNP-S, PF, GHAZALA-SUCROSE, 30 MCG/0.3 ML (AGES 12+ YEARS) 2022 ANAM BORJA RIGHT DELTO ID [id number] 309 complet ed Completed Series, ADMINISTE RED AT OR, [facility] COVID-19 ([facility]), MRNA, LNP-S, BIVALENT, PF, 30 MCG/0.3 ML DOSE 1 2021 300 complet ed HISTORICA L INFORMATI ON - FROM PATIENT'S WRITTEN RECORD, Lot#: [id number] [facility] INFLUENZA, SPLIT VIRUS, QUADRIVALENT, PF 1 2021 150 complet ed HISTORICA L INFORMATI ON - FROM OTHER REGISTRY, [facility] INFLUENZA, UNSPECIFIED FORMULATION 2021 88 complet ed Completed Series, HISTORICA L INFORMATI ON - FROM PATIENT'S RECALL, [facility] COVID-19 ([facility]), MRNA, LNP-S, PF, 30 MCG/0.3 ML DOSE 3 2020 208 complet ed HISTORICA L INFORMATI ON - FROM PATIENT'S WRITTEN RECORD, Lot#: [id number] [facility] INFLUENZA, UNSPECIFIED FORMULATION 2020 88 complet ed [facility] PNEUMOCOCCAL POLYSACCHARID E PPV23 2020 33 complet ed [facility] TDAP 2020 115 complet ed [facility] COVID-19 (PFIZER), MRNA, LNP-S, PF, 30 MCG/0.3 ML DOSE 2 2020 208 complet ed [facility] COVID-19 (PFIZER), MRNA, LNP-S, PF, 30 MCG/0.3 ML DOSE 1 2020 208 complet ed [facility] ZOSTER RECOMBINANT 2 2020 187 complet ed [facility] ZOSTER RECOMBINANT 2 2020 187 complet ed HISTORICA L INFORMATI ON - FROM OTHER REGISTRY, [facility] INFLUENZA, UNSPECIFIED FORMULATION 2019 88 complet ed [facility] INFLUENZA, SPLIT VIRUS, QUADRIVALENT, PF 1 2019 150 complet ed HISTORICA L INFORMATI ON - FROM OTHER REGISTRY, [facility] ZOSTER RECOMBINANT 1 2019 187 complet ed [facility] Results Combined list of recent chemistry, hematology and other laboratory results from Department of Defense and Veterans Affairs, ranging from 15 months to all on record, depending upon the facility. Order Name Results Value Reference Range Date Interpretation Specimen Comments Source CBC LEUKOCYTES [#/VOLUME] IN BLOOD BY AUTOMATED COUNT 5.1 10*3/uL 3.6 - 11.2 09/07 Specimen Type: BLOOD No comment entered. Ordering Provider: KHARI SIMMONS SE Report Released Date/Time: Aug 31, 2024 02:42 PM Reporting Lab: [facility] [address] [place] [phone] Performing Lab: [facility] [address] [place] [phone] [facility] CBC ERYTHROCYT ES [#/VOLUME] IN BLOOD BY AUTOMATED COUNT 3.44 10*6/uL 4.10 - 5.70 09/07 L Specimen Type: BLOOD No comment entered. Ordering Provider: KHARI SIMMONS SE Report Released Date/Time: Aug 31, 2024 02:42 PM Reporting Lab: [address] [address] Performing Lab: [address] [address] [facility] CBC HEMOGLOBIN [MASS/VOLU ME] IN BLOOD 10.1 g/dL 13.1 - 16.8 09/07 L Specimen Type: BLOOD No comment entered. Ordering Provider: KHARI SIMMONS SE Report Released Date/Time: Aug 31, 2024 02:42 PM Reporting Lab: [address] [address] Performing Lab: [address] [address] [facility] CBC HEMATOCRIT [VOLUME FRACTION] OF BLOOD 32.1 38.2 - 48.4 09/07 L Specimen Type: BLOOD No comment entered. Ordering Provider: KHARI SIMMONS SE Report Released Date/Time: Aug 31, 2024 02:42 PM Reporting Lab: [address] [address] Performing Lab: [address] [address] [facility] CBC MCV [ENTITIC VOLUME] BY AUTOMATED COUNT 93.3 fL 80.0 - 100.0 09/07 Specimen Type: BLOOD No comment entered. Ordering Provider: KHARI SIMMONS SE Report Released Date/Time: Aug 31, 2024 02:42 PM Reporting Lab: [address] [address] Performing Lab: [address] [address] [facility] CBC MCH [ENTITIC MASS] BY AUTOMATED COUNT 29.4 pg 27.0 - 34.0 09/07 Specimen Type: BLOOD No comment entered. Ordering Provider: KHARI SIMMONS SE Report Released Date/Time: Aug 31, 2024 02:42 PM Reporting Lab: [address] [address] Performing Lab: [address] [address] [facility] CBC MCHC [MASS/VOLU ME] BY AUTOMATED COUNT 31.5 g/dL 33.0 - 36.0 09/07 L Specimen Type: BLOOD No comment entered. Ordering Provider: KHARI SIMMONS SE Report Released Date/Time: Aug 31, 2024 02:42 PM Reporting Lab: [address] [address] Performing Lab: [address] [phone] [place] [address] CBC PLATELETS [#/VOLUME] IN BLOOD BY AUTOMATED COUNT 59 10*3/uL 150 - 400 09/07 L Specimen Type: BLOOD No comment entered. Ordering Provider: KHARI SIMMONS SE Report Released Date/Time: Aug 31, 2024 02:42 PM Reporting Lab: [address] [address] Performing Lab: [address] [phone] [place] [address] CBC PLATELET MEAN VOLUME [ENTITIC VOLUME] IN BLOOD BY AUTOMATED COUNT 11.3 fL 7.5 - 11.2 09/07 H Specimen Type: BLOOD No comment entered. Ordering Provider: KHARI SIMMONS SE Report Released Date/Time: Aug 31, 2024 02:42 PM Reporting Lab: [address] [address] Performing Lab: [address] [phone] [place] [address] CBC ERYTHROCYT E DISTRIBUTI ON WIDTH [RATIO] BY AUTOMATED COUNT 14.6 11.8 - 15.1 09/07 Specimen Type: BLOOD No comment entered. Ordering Provider: KHARI SIMMONS SE Report Released Date/Time: Aug 31, 2024 02:42 PM Reporting Lab: [address] [address] Performing Lab: [address] [address] [facility] CBC PLATELETS RETICULATE D/100 PLATELETS IN BLOOD BY AUTOMATED COUNT 6.4 1.0 - 7.0 09/07 Specimen Type: BLOOD No comment entered. Ordering Provider: KHARI SIMMONS SE Report Released Date/Time: Aug 31, 2024 02:42 PM Reporting Lab: [address] [address] Performing Lab: [address] [address] [facility] CBC SEGMENTED NEUTROPHIL S/100 LEUKOCYTES IN BLOOD BY MANUAL COUNT 93.8 09/07 Specimen Type: BLOOD No comment entered. Ordering Provider: KHARI SIMMONS SE Report Released Date/Time: Aug 31, 2024 02:42 PM Reporting Lab: [address] [address] Performing Lab: [place] [id number] CBC BAND FORM NEUTROPHIL S/100 LEUKOCYTES IN BLOOD BY MANUAL COUNT 0.9 09/07 Specimen Type: BLOOD No comment entered. Ordering Provider: KHARI SIMMONS SE Report Released Date/Time: Aug 31, 2024 02:42 PM Reporting Lab: [address] [address] Performing Lab: [address] [address] [facility] CBC MONOCYTES/ 100 LEUKOCYTES IN BLOOD BY AUTOMATED COUNT 0.9 09/07 Specimen Type: BLOOD No comment entered. Ordering Provider: KHARI SIMMONS SE Report Released Date/Time: Aug 31, 2024 02:42 PM Reporting Lab: [address] [address] Performing Lab: [address] [address] [facility] CBC HYPOCHROMI A [PRESENCE] IN BLOOD BY LIGHT MICROSCOPY 1+ 09/07 Specimen Type: BLOOD No comment entered. Ordering Provider: KHARI SIMMONS SE Report Released Date/Time: Aug 31, 2024 02:42 PM Reporting Lab: [facility] [address] [facility] [address] Performing Lab: [facility] [address] [facility] [address] [facility] CBC PAPPENHEIM ER BODIES 0 09/07 Specimen Type: BLOOD No comment entered. Ordering Provider: KHARI SIMMONS SE Report Released Date/Time: Aug 31, 2024 02:42 PM Reporting Lab: [facility] [address] [facility] [address] Performing Lab: [facility] [address] [facility] [address] [facility] CBC LYMPHOCYTE S/100 LEUKOCYTES IN BLOOD BY MANUAL COUNT 3.5 09/07 Specimen Type: BLOOD No comment entered. Ordering Provider: KHARI SIMMONS SE Report Released Date/Time: Aug 31, 2024 02:42 PM Reporting Lab: [facility] [address] [facility] [address] Performing Lab: [facility] [address] [facility] [address] [facility] CBC VARIANT LYMPHOCYTE S/100 LEUKOCYTES IN BLOOD BY MANUAL COUNT 0.9 09/07 Specimen Type: BLOOD No comment entered. Ordering Provider: KHARI SIMMONS SE Report Released Date/Time: Aug 31, 2024 02:42 PM Reporting Lab: [facility] [address] [facility] [address] Performing Lab: [facility] [address] [facility] [address] [facility] CBC PLATELET ADEQUACY [PRESENCE] IN BLOOD BY LIGHT MICROSCOPY DECREASE D 09/07 Specimen Type: BLOOD No comment entered. Ordering Provider: KHARI SIMMONS SE Report Released Date/Time: Aug 31, 2024 02:42 PM Reporting Lab: [facility] [address] [facility] [address] Performing Lab: [place] [address] [facility] [address] [facility] CBC MANUAL DIFFERENTI AL PERFORMED [PRESENCE] IN BLOOD 0.05 0.00 - 0.05 09/07 Specimen Type: BLOOD No comment entered. Ordering Provider: KHARI SIMMONS SE Report Released Date/Time: Aug 31, 2024 02:42 PM Reporting Lab: [address] [address] Performing Lab: [address] [address] [facility] CBC MONOCYTES [#/VOLUME] IN BLOOD BY MANUAL COUNT 0.05 10*3/uL 0.19 - 0.80 09/07 L Specimen Type: BLOOD No comment entered. Ordering Provider: KHARI SIMMONS SE Report Released Date/Time: Aug 31, 2024 02:42 PM Reporting Lab: [place] [address] [facility] [address] Performing Lab: [address] [address] [facility] [place] CBC LYMPHOCYTE S [#/VOLUME] IN BLOOD BY MANUAL COUNT 0.22 10*3/uL 0.77 - 4.50 09/07 L Specimen Type: BLOOD No comment entered. Ordering Provider: KHARI SIMMONS SE Report Released Date/Time: Aug 31, 2024 02:42 PM Reporting Lab: [place] [address] [facility] [address] Performing Lab: [address] [address] [facility] [place] CBC NEUTROPHIL S [#/VOLUME] IN BLOOD BY MANUAL COUNT 4.78 10*3/uL 2.10 - 8.00 09/07 Specimen Type: BLOOD No comment entered. Ordering Provider: KHARI SIMMONS SE Report Released Date/Time: Aug 31, 2024 02:42 PM Reporting Lab: [address] [place] [address] Performing Lab: [facility] [place] [address] [facility] [address] [facility] [place] COMPREHEN SIVE METABOLIC PANEL CREATININE [MASS/VOLU ME] IN SERUM OR PLASMA 0.87 mg/dL 0.7 - 1.3 09/07 Specimen Type: PLASMA Comment: No hemolysis noted. Ordering Provider: KHARI SIMMONS SE Report Released Date/Time: Aug 31, 2024 02:42 PM Reporting Lab: [place] [address] [facility] [address] Performing Lab: [place] [address] [facility] [address] [facility] COMPREHEN SIVE METABOLIC PANEL UREA NITROGEN [MASS/VOLU ME] IN SERUM OR PLASMA 24.5 mg/dL 9.0 - 25.0 09/07 Specimen Type: PLASMA Comment: No hemolysis noted. Ordering Provider: KHARI SIMMONS SE Report Released Date/Time: Aug 31, 2024 02:42 PM Reporting Lab: [place] [address] [facility] [address] Performing Lab: [place] [address] [facility] [address] [facility] COMPREHEN SIVE METABOLIC PANEL GLUCOSE [MASS/VOLU ME] IN SERUM OR PLASMA 161 mg/dL 72 - 99 09/07 H Specimen Type: PLASMA Comment: No hemolysis noted. Ordering Provider: KHARI SIMMONS SE Report Released Date/Time: Aug 31, 2024 02:42 PM Reporting Lab: [place] [address] [facility] [address] Performing Lab: [address] [address] [facility] COMPREHEN SIVE METABOLIC PANEL SODIUM [MOLES/VOL UME] IN SERUM OR PLASMA 138 meq/L 136 - 145 09/07 Specimen Type: PLASMA Comment: No hemolysis noted. Ordering Provider: KHARI SIMMONS SE Report Released Date/Time: Aug 31, 2024 02:42 PM Reporting Lab: [place] [address] [facility] [address] Performing Lab: [place] [address] [facility] [address] [facility] COMPREHEN SIVE METABOLIC PANEL POTASSIUM [MOLES/VOL UME] IN SERUM OR PLASMA 4.5 meq/L 3.5 - 5 09/07 Specimen Type: PLASMA Comment: No hemolysis noted. Ordering Provider: KHARI SIMMONS SE Report Released Date/Time: Aug 31, 2024 02:42 PM Reporting Lab: [place] [address] [facility] [address] Performing Lab: [place] [address] [facility] [address] [facility] COMPREHEN SIVE METABOLIC PANEL CHLORIDE [MOLES/VOL UME] IN SERUM OR PLASMA 101 meq/L 98 - 107 09/07 Specimen Type: PLASMA Comment: No hemolysis noted. Ordering Provider: KHARI SIMMONS SE Report Released Date/Time: Aug 31, 2024 02:42 PM Reporting Lab: [place] [address] [facility] [address] Performing Lab: [place] [address] [facility] [address] [facility] COMPREHEN SIVE METABOLIC PANEL CARBON DIOXIDE, TOTAL [MOLES/VOL UME] IN SERUM OR PLASMA 27 meq/L 22 - 31 09/07 Specimen Type: PLASMA Comment: No hemolysis noted. Ordering Provider: KHARI SIMMONS SE Report Released Date/Time: Aug 31, 2024 02:42 PM Reporting Lab: [place] [address] [facility] [address] Performing Lab: [address] [address] [facility] COMPREHEN SIVE METABOLIC PANEL CALCIUM [MASS/VOLU ME] IN SERUM OR PLASMA 9.2 mg/dL 8.4 - 10.4 09/07 Specimen Type: PLASMA Comment: No hemolysis noted. Ordering Provider: KHARI SIMMONS SE Report Released Date/Time: Aug 31, 2024 02:42 PM Reporting Lab: [facility] [address] [facility] [address] Performing Lab: [facility] [address] [facility] [address] [facility] COMPREHEN SIVE METABOLIC PANEL PROTEIN [MASS/VOLU ME] IN SERUM OR PLASMA 7.1 g/dL 6 - 8.6 09/07 Specimen Type: PLASMA Comment: No hemolysis noted. Ordering Provider: KHARI SIMMONS SE Report Released Date/Time: Aug 31, 2024 02:42 PM Reporting Lab: [facility] [address] [facility] [address] Performing Lab: [address] [address] [facility] COMPREHEN SIVE METABOLIC PANEL ALBUMIN [MASS/VOLU ME] IN SERUM OR PLASMA 3.7 g/dL 3.4 - 5 09/07 Specimen Type: PLASMA Comment: No hemolysis noted. Ordering Provider: KHARI SIMMONS SE Report Released Date/Time: Aug 31, 2024 02:42 PM Reporting Lab: [place] [address] [facility] [address] Performing Lab: [facility] [address] [facility] [address] [facility] COMPREHEN SIVE METABOLIC PANEL BILIRUBIN. TOTAL [MASS/VOLU ME] IN SERUM OR PLASMA 0.6 mg/dL 0.2 - 1.2 09/07 Specimen Type: PLASMA Comment: No hemolysis noted. Ordering Provider: KHARI SIMMONS SE Report Released Date/Time: Aug 31, 2024 02:42 PM Reporting Lab: [facility] [address] [facility] [address] Performing Lab: [facility] [address] [facility] [address] [facility] COMPREHEN SIVE METABOLIC PANEL ALKALINE PHOSPHATAS E [ENZYMATIC ACTIVITY/V OLUME] IN SERUM OR PLASMA 77 U/L 40 - 150 09/07 Specimen Type: PLASMA Comment: No hemolysis noted. Ordering Provider: KHARI SIMMONS SE Report Released Date/Time: Aug 31, 2024 02:42 PM Reporting Lab: [place] [address] [address] [place] [phone] Performing Lab: [place] [address] [place] [phone] [facility] COMPREHEN SIVE METABOLIC PANEL ASPARTATE AMINOTRANS FERASE [ENZYMATIC ACTIVITY/V OLUME] IN SERUM OR PLASMA 28 U/L 5 - 34 09/07 Specimen Type: PLASMA Comment: No hemolysis noted. Ordering Provider: KHARI SIMMONS SE Report Released Date/Time: Aug 31, 2024 02:42 PM Reporting Lab: [place] [address] [place] [phone] Performing Lab: [place] [address] [facility] [address] [facility] COMPREH SIVE METABOLIC PANEL ALANINE AMINOTRANS FERASE [ENZYMATIC ACTIVITY/V OLUME] IN SERUM OR PLASMA 20 U/L 8 - 40 09/07 Specimen Type: PLASMA Comment: No hemolysis noted. Ordering Provider: KHARI SIMMONS SE Report Released Date/Time: Aug 31, 2024 02:42 PM Reporting Lab: [place] [address] [place] [phone] Performing Lab: [place] [address] [place] [phone] [facility] COMPREHEN SIVE METABOLIC PANEL GLOMERULAR FILTRATION RATE/1.73 SQ M.PREDICTE D [VOLUME RATE/AREA] IN SERUM, PLASMA OR BLOOD BY CREATININE -BASED FORMULA (CKD-EPI 2020) 94.0 60 09/07 Specimen Type: PLASMA Comment: No hemolysis noted. Ordering Provider: KHARI SIMMONS SE Report Released Date/Time: Aug 31, 2024 02:42 PM Reporting Lab: [facility] [address] [address] Performing Lab: [phone] [place] [address] ALPHA-FET OPROTEIN( STL-PB) ALPHA-1-FE TOPROTEIN [MASS/VOLU ME] IN SERUM OR PLASMA 15.01 ng/mL 1 - 8.78 09/07 H Specimen Type: SERUM No comment entered. Ordering Provider: YUMIKO MASSEY Report Released Date/Time: Sep 07, 2024 11:59 AM Reporting Lab: [place] [phone] Performing Lab: [address] [phone] CBC LEUKOCYTES [#/VOLUME] IN BLOOD BY AUTOMATED COUNT 4.7 10*3/uL 3.6 - 11.2 08/31 Specimen Type: BLOOD No comment entered. Ordering Provider: KHARI SIMMONS SE Report Released Date/Time: Aug 27, 2024 12:35 PM Reporting Lab: [place] [phone] Performing Lab: [address] [phone] [place] [address] CBC ERYTHROCYT ES [#/VOLUME] IN BLOOD BY AUTOMATED COUNT 3.54 10*6/uL 4.10 - 5.70 08/31 L Specimen Type: BLOOD No comment entered. Ordering Provider: KHARI SIMMONS SE Report Released Date/Time: Aug 27, 2024 12:35 PM Reporting Lab: [address] [address] Performing Lab: [address] [address] [facility] CBC HEMOGLOBIN [MASS/VOLU ME] IN BLOOD 10.7 g/dL 13.1 - 16.8 08/31 L Specimen Type: BLOOD No comment entered. Ordering Provider: KHARI SIMMONS SE Report Released Date/Time: Aug 27, 2024 12:35 PM Reporting Lab: [place] [phone] Performing Lab: [address] [phone] [place] [address] CBC HEMATOCRIT [VOLUME FRACTION] OF BLOOD 34.7 38.2 - 48.4 08/31 L Specimen Type: BLOOD No comment entered. Ordering Provider: KHARI SIMMONS SE Report Released Date/Time: Aug 27, 2024 12:35 PM Reporting Lab: [place] [address] [place] [phone] Performing Lab: [address] CBC MCV [ENTITIC VOLUME] BY AUTOMATED COUNT 98.0 fL 80.0 - 100.0 08/31 Specimen Type: BLOOD No comment entered. Ordering Provider: KHARI SIMMONS SE Report Released Date/Time: Aug 27, 2024 12:35 PM Reporting Lab: [place] [phone] Performing Lab: [place] [address] [place] [phone] CBC MCH [ENTITIC MASS] BY AUTOMATED COUNT 30.2 pg 27.0 - 34.0 08/31 Specimen Type: BLOOD No comment entered. Ordering Provider: KHARI SIMMONS SE Report Released Date/Time: Aug 27, 2024 12:35 PM Reporting Lab: [place] [address] [facility] [address] Performing Lab: [phone] CBC MCHC [MASS/VOLU ME] BY AUTOMATED COUNT 30.8 g/dL 33.0 - 36.0 08/31 L Specimen Type: BLOOD No comment entered. Ordering Provider: KHARI SIMMONS SE Report Released Date/Time: Aug 27, 2024 12:35 PM Reporting Lab: [place] [address] [facility] [address] Performing Lab: [address] [address] [facility] CBC PLATELETS [#/VOLUME] IN BLOOD BY AUTOMATED COUNT 79 10*3/uL 150 - 400 08/31 L Specimen Type: BLOOD No comment entered. Ordering Provider: KHARI SIMMONS SE Report Released Date/Time: Aug 27, 2024 12:35 PM Reporting Lab: [place] [address] [place] [phone] Performing Lab: [address] [address] [facility] CBC PLATELET MEAN VOLUME [ENTITIC VOLUME] IN BLOOD BY AUTOMATED COUNT 11.5 fL 7.5 - 11.2 08/31 H Specimen Type: BLOOD No comment entered. Ordering Provider: KHARI SIMMONS SE Report Released Date/Time: Aug 27, 2024 12:35 PM Reporting Lab: [place] [address] [facility] [address] Performing Lab: [place] [address] [facility] [address] [facility] CBC ERYTHROCYT E DISTRIBUTI ON WIDTH [RATIO] BY AUTOMATED COUNT 15.1 11.8 - 15.1 08/31 Specimen Type: BLOOD No comment entered. Ordering Provider: KHARI SIMMONS SE Report Released Date/Time: Aug 27, 2024 12:35 PM Reporting Lab: [place] [address] [facility] [address] Performing Lab: [address] [address] [facility] CBC PLATELETS RETICULATE D/100 PLATELETS IN BLOOD BY AUTOMATED COUNT 4.5 1.0 - 7.0 08/31 Specimen Type: BLOOD No comment entered. Ordering Provider: KHARI SIMMONS SE Report Released Date/Time: Aug 27, 2024 12:35 PM Reporting Lab: [facility] [address] [address] Performing Lab: [facility] [address] [facility] [address] [facility] CBC SEGMENTED NEUTROPHIL S/100 LEUKOCYTES IN BLOOD BY MANUAL COUNT 84.4 08/31 Specimen Type: BLOOD No comment entered. Ordering Provider: KHARI SIMMONS SE Report Released Date/Time: Aug 27, 2024 12:35 PM Reporting Lab: [place] [address] [facility] [address] Performing Lab: [place] [address] [facility] [address] [facility] CBC BAND FORM NEUTROPHIL S/100 LEUKOCYTES IN BLOOD BY MANUAL COUNT 0.9 08/31 Specimen Type: BLOOD No comment entered. Ordering Provider: KHARI SIMMONS SE Report Released Date/Time: Aug 27, 2024 12:35 PM Reporting Lab: [place] [address] [facility] [address] Performing Lab: [place] [address] [facility] [address] [facility] CBC MONOCYTES/ 100 LEUKOCYTES IN BLOOD BY AUTOMATED COUNT 4.3 08/31 Specimen Type: BLOOD No comment entered. Ordering Provider: KHARI SIMMONS SE Report Released Date/Time: Aug 27, 2024 12:35 PM Reporting Lab: [facility] [address] [address] Performing Lab: [facility] [address] [address] [facility] CBC ANISOCYTOS IS [PRESENCE] IN BLOOD BY LIGHT MICROSCOPY 1+ 08/31 Specimen Type: BLOOD No comment entered. Ordering Provider: KHARI SIMMONS SE Report Released Date/Time: Aug 27, 2024 12:35 PM Reporting Lab: [place] [address] [facility] [address] Performing Lab: [facility] [address] [facility] [address] [facility] CBC MACROCYTES [PRESENCE] IN BLOOD BY LIGHT MICROSCOPY 1+ 08/31 Specimen Type: BLOOD No comment entered. Ordering Provider: KHARI SIMMONS SE Report Released Date/Time: Aug 27, 2024 12:35 PM Reporting Lab: [place] [address] [facility] [address] Performing Lab: [place] [address] [facility] [address] [facility] CBC PAPPENHEIM ER BODIES 0 08/31 Specimen Type: BLOOD No comment entered. Ordering Provider: KHARI SIMMONS SE Report Released Date/Time: Aug 27, 2024 12:35 PM Reporting Lab: [place] [address] [facility] [address] Performing Lab: [place] [address] [facility] [address] [facility] CBC LYMPHOCYTE S/100 LEUKOCYTES IN BLOOD BY MANUAL COUNT 10.4 08/31 Specimen Type: BLOOD No comment entered. Ordering Provider: KHARI SIMMONS SE Report Released Date/Time: Aug 27, 2024 12:35 PM Reporting Lab: [place] [address] [facility] [address] Performing Lab: [place] [address] [facility] [address] [facility] CBC PLATELET ADEQUACY [PRESENCE] IN BLOOD BY LIGHT MICROSCOPY DECREASE D 08/31 Specimen Type: BLOOD No comment entered. Ordering Provider: KHARI SIMMONS SE Report Released Date/Time: Aug 27, 2024 12:35 PM Reporting Lab: [place] [address] [facility] [address] Performing Lab: [place] [address] [facility] [address] [facility] CBC MANUAL DIFFERENTI AL PERFORMED [PRESENCE] IN BLOOD 0.04 0.00 - 0.05 08/31 Specimen Type: BLOOD No comment entered. Ordering Provider: KHARI SIMMONS SE Report Released Date/Time: Aug 27, 2024 12:35 PM Reporting Lab: [address] [address] Performing Lab: [address] [address] [facility] CBC MONOCYTES [#/VOLUME] IN BLOOD BY MANUAL COUNT 0.20 10*3/uL 0.19 - 0.80 08/31 Specimen Type: BLOOD No comment entered. Ordering Provider: KHARI SIMMONS SE Report Released Date/Time: Aug 27, 2024 12:35 PM Reporting Lab: [place] [phone] Performing Lab: [address] [address] [facility] CBC LYMPHOCYTE S [#/VOLUME] IN BLOOD BY MANUAL COUNT 0.49 10*3/uL 0.77 - 4.50 08/31 L Specimen Type: BLOOD No comment entered. Ordering Provider: KHARI SIMMONS SE Report Released Date/Time: Aug 27, 2024 12:35 PM Reporting Lab: [address] [address] Performing Lab: [address] [address] [facility] CBC NEUTROPHIL S [#/VOLUME] IN BLOOD BY MANUAL COUNT 3.97 10*3/uL 2.10 - 8.00 08/31 Specimen Type: BLOOD No comment entered. Ordering Provider: KHARI SIMMONS SE Report Released Date/Time: Aug 27, 2024 12:35 PM Reporting Lab: [address] [address] Performing Lab: [address] [address] [facility] COMPREHEN SIVE METABOLIC PANEL CREATININE [MASS/VOLU ME] IN SERUM OR PLASMA 0.90 mg/dL 0.7 - 1.3 08/31 Specimen Type: PLASMA Comment: No hemolysis noted. Ordering Provider: KHARI SIMMONS SE Report Released Date/Time: Aug 27, 2024 12:35 PM Reporting Lab: [facility] [address] [facility] [address] Performing Lab: [place] [address] [facility] [address] [facility] COMPREHEN SIVE METABOLIC PANEL UREA NITROGEN [MASS/VOLU ME] IN SERUM OR PLASMA 26.4 mg/dL 9.0 - 25.0 08/31 H Specimen Type: PLASMA Comment: No hemolysis noted. Ordering Provider: KHARI SIMMONS SE Report Released Date/Time: Aug 27, 2024 12:35 PM Reporting Lab: [place] [address] [facility] [address] Performing Lab: [place] [address] [facility] [address] [facility] COMPREH SIVE METABOLIC PANEL GLUCOSE [MASS/VOLU ME] IN SERUM OR PLASMA 108 mg/dL 72 - 99 08/31 H Specimen Type: PLASMA Comment: No hemolysis noted. Ordering Provider: KHARI SIMMONS SE Report Released Date/Time: Aug 27, 2024 12:35 PM Reporting Lab: [place] [address] [facility] [address] Performing Lab: [place] [address] [facility] [address] [facility] COMPREHEN SIVE METABOLIC PANEL SODIUM [MOLES/VOL UME] IN SERUM OR PLASMA 137 meq/L 136 - 145 08/31 Specimen Type: PLASMA Comment: No hemolysis noted. Ordering Provider: KHARI SIMMONS SE Report Released Date/Time: Aug 27, 2024 12:35 PM Reporting Lab: [place] [address] [facility] [address] Performing Lab: [address] [place] [address] [facility] COMPREHEN SIVE METABOLIC PANEL POTASSIUM [MOLES/VOL UME] IN SERUM OR PLASMA 3.8 meq/L 3.5 - 5 08/31 Specimen Type: PLASMA Comment: No hemolysis noted. Ordering Provider: KHARI SIMMONS SE Report Released Date/Time: Aug 27, 2024 12:35 PM Reporting Lab: [place] [address] [facility] [address] Performing Lab: [place] [address] [facility] [address] [facility] COMPREHEN SIVE METABOLIC PANEL CHLORIDE [MOLES/VOL UME] IN SERUM OR PLASMA 100 meq/L 98 - 107 08/31 Specimen Type: PLASMA Comment: No hemolysis noted. Ordering Provider: KHARI SIMMONS SE Report Released Date/Time: Aug 27, 2024 12:35 PM Reporting Lab: [place] [address] [facility] [address] Performing Lab: [place] [address] [facility] [phone] [place] [address] COMPREHEN SIVE METABOLIC PANEL CARBON DIOXIDE, TOTAL [MOLES/VOL UME] IN SERUM OR PLASMA 25 meq/L 22 - 31 08/31 Specimen Type: PLASMA Comment: No hemolysis noted. Ordering Provider: KHARI SIMMONS SE Report Released Date/Time: Aug 27, 2024 12:35 PM Reporting Lab: [place] [address] [facility] [address] Performing Lab: [place] [address] [facility] [address] [facility] COMPREHEN SIVE METABOLIC PANEL CALCIUM [MASS/VOLU ME] IN SERUM OR PLASMA 9.3 mg/dL 8.4 - 10.4 08/31 Specimen Type: PLASMA Comment: No hemolysis noted. Ordering Provider: KHARI SIMMONS SE Report Released Date/Time: Aug 27, 2024 12:35 PM Reporting Lab: [place] [address] [facility] [address] Performing Lab: [place] [address] [facility] [address] [facility] COMPREHEN SIVE METABOLIC PANEL PROTEIN [MASS/VOLU ME] IN SERUM OR PLASMA 7.3 g/dL 6 - 8.6 08/31 Specimen Type: PLASMA Comment: No hemolysis noted. Ordering Provider: KHARI SIMMONS SE Report Released Date/Time: Aug 27, 2024 12:35 PM Reporting Lab: [place] [address] [facility] [address] Performing Lab: [place] [address] [facility] [address] [facility] COMPREHEN SIVE METABOLIC PANEL ALBUMIN [MASS/VOLU ME] IN SERUM OR PLASMA 3.8 g/dL 3.4 - 5 08/31 Specimen Type: PLASMA Comment: No hemolysis noted. Ordering Provider: KHARI SIMMONS SE Report Released Date/Time: Aug 27, 2024 12:35 PM Reporting Lab: [place] [address] [facility] [address] Performing Lab: [place] [address] [facility] [address] [facility] COMPREHEN SIVE METABOLIC PANEL BILIRUBIN. TOTAL [MASS/VOLU ME] IN SERUM OR PLASMA 0.4 mg/dL 0.2 - 1.2 08/31 Specimen Type: PLASMA Comment: No hemolysis noted. Ordering Provider: KHARI SIMMONS SE Report Released Date/Time: Aug 27, 2024 12:35 PM Reporting Lab: [place] [address] [facility] [address] Performing Lab: [place] [address] [facility] [address] [facility] COMPREHEN SIVE METABOLIC PANEL ALKALINE PHOSPHATAS E [ENZYMATIC ACTIVITY/V OLUME] IN SERUM OR PLASMA 87 U/L 40 - 150 08/31 Specimen Type: PLASMA Comment: No hemolysis noted. Ordering Provider: KHARI SIMMONS SE Report Released Date/Time: Aug 27, 2024 12:35 PM Reporting Lab: [facility] [address] [facility] [address] Performing Lab: [facility] [address] [facility] [address] [facility] COMPREHEN SIVE METABOLIC PANEL ASPARTATE AMINOTRANS FERASE [ENZYMATIC ACTIVITY/V OLUME] IN SERUM OR PLASMA 28 U/L 5 - 34 08/31 Specimen Type: PLASMA Comment: No hemolysis noted. Ordering Provider: KHARI SIMMONS SE Report Released Date/Time: Aug 27, 2024 12:35 PM Reporting Lab: [facility] [address] [facility] [address] Performing Lab: [facility] [address] [facility] [address] [facility] COMPREHEN SIVE METABOLIC PANEL ALANINE AMINOTRANS FERASE [ENZYMATIC ACTIVITY/V OLUME] IN SERUM OR PLASMA 20 U/L 8 - 40 08/31 Specimen Type: PLASMA Comment: No hemolysis noted. Ordering Provider: KHARI SIMMONS SE Report Released Date/Time: Aug 27, 2024 12:35 PM Reporting Lab: [facility] [address] [address] Performing Lab: [facility] [address] [facility] [address] [facility] COMPREHEN SIVE METABOLIC PANEL GLOMERULAR FILTRATION RATE/1.73 SQ M.PREDICTE D [VOLUME RATE/AREA] IN SERUM, PLASMA OR BLOOD BY CREATININE -BASED FORMULA (CKD-EPI 2020) 93.6 60 08/31 Specimen Type: PLASMA Comment: No hemolysis noted. Ordering Provider: KHARI SIMMONS SE Report Released Date/Time: Aug 27, 2024 12:35 PM Reporting Lab: [facility] [address] [facility] [address] Performing Lab: [facility] [address] [facility] [address] [facility] CBC LEUKOCYTES [#/VOLUME] IN BLOOD BY AUTOMATED COUNT 5.0 10*3/uL 3.6 - 11.2 08/17 Specimen Type: BLOOD Comment: No Clots Ordering Provider: KHARI SIMMONS SE Report Released Date/Time: Aug 10, 2024 12:01 PM Reporting Lab: [place] [address] [facility] [address] Performing Lab: [address] [address] [facility] CBC ERYTHROCYT ES [#/VOLUME] IN BLOOD BY AUTOMATED COUNT 2.83 10*6/uL 4.10 - 5.70 08/17 L Specimen Type: BLOOD Comment: No Clots Ordering Provider: KHARI SIMMONS SE Report Released Date/Time: Aug 10, 2024 12:01 PM Reporting Lab: [place] [address] [facility] [address] Performing Lab: [address] [address] [facility] CBC HEMOGLOBIN [MASS/VOLU ME] IN BLOOD 8.9 g/dL 13.1 - 16.8 08/17 L Specimen Type: BLOOD Comment: No Clots Ordering Provider: KHARI SIMMONS SE Report Released Date/Time: Aug 10, 2024 12:01 PM Reporting Lab: [place] [address] [facility] [address] Performing Lab: [place] [address] [facility] [address] [facility] HEMATOCRIT [VOLUME FRACTION] OF BLOOD 28.2 38.2 - 48.4 08/17 L Specimen Type: BLOOD Comment: No Clots Ordering Provider: KHARI SIMMONS SE Report Released Date/Time: Aug 10, 2024 12:01 PM Reporting Lab: [place] [address] [facility] [address] Performing Lab: [address] [address] [facility] MCV [ENTITIC VOLUME] BY AUTOMATED COUNT 99.6 fL 80.0 - 100.0 08/17 Specimen Type: BLOOD Comment: No Clots Ordering Provider: KHARI SIMMONS SE Report Released Date/Time: Aug 10, 2024 12:01 PM Reporting Lab: [address] [address] Performing Lab: [address] [address] [facility] MCH [ENTITIC MASS] BY AUTOMATED COUNT 31.4 pg 27.0 - 34.0 08/17 Specimen Type: BLOOD Comment: No Clots Ordering Provider: KHARI SIMMONS SE Report Released Date/Time: Aug 10, 2024 12:01 PM Reporting Lab: [address] [address] Performing Lab: [address] [address] [facility] MCHC [MASS/VOLU ME] BY AUTOMATED COUNT 31.6 g/dL 33.0 - 36.0 08/17 L Specimen Type: BLOOD Comment: No Clots Ordering Provider: KHARI SIMMONS SE Report Released Date/Time: Aug 10, 2024 12:01 PM Reporting Lab: [address] [address] Performing Lab: [address] [address] [facility] PLATELETS [#/VOLUME] IN BLOOD BY AUTOMATED COUNT 140 10*3/uL 150 - 400 08/17 L Specimen Type: BLOOD Comment: No Clots Ordering Provider: KHARI SIMMONS SE Report Released Date/Time: Aug 10, 2024 12:01 PM Reporting Lab: [address] [address] Performing Lab: [address] [address] [facility] PLATELET MEAN VOLUME [ENTITIC VOLUME] IN BLOOD BY AUTOMATED COUNT 11.2 fL 7.5 - 11.2 08/17 Specimen Type: BLOOD Comment: No Clots Ordering Provider: KHARI SIMMONS SE Report Released Date/Time: Aug 10, 2024 12:01 PM Reporting Lab: [place] [address] [facility] [address] Performing Lab: [place] [address] [facility] [address] [facility] ERYTHROCYT E DISTRIBUTI ON WIDTH [RATIO] BY AUTOMATED COUNT 16.0 11.8 - 15.1 08/17 H Specimen Type: BLOOD Comment: No Clots Ordering Provider: KHARI SIMMONS SE Report Released Date/Time: Aug 10, 2024 12:01 PM Reporting Lab: [place] [address] [facility] [address] Performing Lab: [place] [address] [facility] [address] [facility] LYMPHOCYTE S/100 LEUKOCYTES IN BLOOD BY AUTOMATED COUNT 12 08/17 Specimen Type: BLOOD Comment: No Clots Ordering Provider: KHARI SIMMONS SE Report Released Date/Time: Aug 10, 2024 12:01 PM Reporting Lab: [place] [address] [facility] [address] Performing Lab: [place] [address] [facility] [address] [facility] MONOCYTES/ 100 LEUKOCYTES IN BLOOD BY AUTOMATED COUNT 13 08/17 Specimen Type: BLOOD Comment: No Clots Ordering Provider: KHARI SIMMONS SE Report Released Date/Time: Aug 10, 2024 12:01 PM Reporting Lab: [place] [address] [facility] [address] Performing Lab: [place] [address] [facility] [address] [facility] CBC NEUTROPHIL S/100 LEUKOCYTES IN BLOOD BY AUTOMATED COUNT 67 08/17 Specimen Type: BLOOD Comment: No Clots Ordering Provider: KHARI SIMMONS SE Report Released Date/Time: Aug 10, 2024 12:01 PM Reporting Lab: [address] [address] Performing Lab: [address] [address] [facility] CBC EOSINOPHIL S/100 LEUKOCYTES IN BLOOD BY AUTOMATED COUNT 7 08/17 Specimen Type: BLOOD Comment: No Clots Ordering Provider: KHARI SMIMONS SE Report Released Date/Time: Aug 10, 2024 12:01 PM Reporting Lab: [address] [address] Performing Lab: [address] [phone] [place] [address] CBC BASOPHILS/ 100 LEUKOCYTES IN BLOOD BY AUTOMATED COUNT 1 08/17 Specimen Type: BLOOD Comment: No Clots Ordering Provider: KHARI SIMMONS SE Report Released Date/Time: Aug 10, 2024 12:01 PM Reporting Lab: [address] [address] Performing Lab: [address] [address] [facility] CBC LYMPHOCYTE S [#/VOLUME] IN BLOOD BY AUTOMATED COUNT 0.61 10*3/uL 0.77 - 4.50 08/17 L Specimen Type: BLOOD Comment: No Clots Ordering Provider: KHARI SIMMONS SE Report Released Date/Time: Aug 10, 2024 12:01 PM Reporting Lab: [address] [address] Performing Lab: [address] [address] [facility] CBC MONOCYTES [#/VOLUME] IN BLOOD BY AUTOMATED COUNT 0.63 10*3/uL 0.19 - 0.80 08/17 Specimen Type: BLOOD Comment: No Clots Ordering Provider: KHARI SIMMONS SE Report Released Date/Time: Aug 10, 2024 12:01 PM Reporting Lab: [address] [address] Performing Lab: [address] [address] [facility] CBC NEUTROPHIL S [#/VOLUME] IN BLOOD BY AUTOMATED COUNT 3.32 10*3/uL 2.10 - 8.00 08/17 Specimen Type: BLOOD Comment: No Clots Ordering Provider: KHARI SIMMONS SE Report Released Date/Time: Aug 10, 2024 12:01 PM Reporting Lab: [address] [address] Performing Lab: [address] [address] [facility] CBC EOSINOPHIL S [#/VOLUME] IN BLOOD BY AUTOMATED COUNT 0.36 10*3/uL 0.00 - 0.60 08/17 Specimen Type: BLOOD Comment: No Clots Ordering Provider: KHARI SIMMONS SE Report Released Date/Time: Aug 10, 2024 12:01 PM Reporting Lab: [address] [address] Performing Lab: [address] [address] [facility] CBC BASOPHILS [#/VOLUME] IN BLOOD BY AUTOMATED COUNT 0.05 10*3/uL 0.00 - 0.20 08/17 Specimen Type: BLOOD Comment: No Clots Ordering Provider: KHARI SIMMONS SE Report Released Date/Time: Aug 10, 2024 12:01 PM Reporting Lab: [address] [address] Performing Lab: [address] [address] [facility] CBC PLATELETS RETICULATE D/100 PLATELETS IN BLOOD BY AUTOMATED COUNT 4.9 1.0 - 7.0 08/17 Specimen Type: BLOOD Comment: No Clots Ordering Provider: KHARI SIMMONS SE Report Released Date/Time: Aug 10, 2024 12:01 PM Reporting Lab: [place] [address] [facility] [address] Performing Lab: [place] [address] [facility] [address] [facility] COMPREHEN SIVE METABOLIC PANEL CREATININE [MASS/VOLU ME] IN SERUM OR PLASMA 0.85 mg/dL 0.7 - 1.3 08/17 Specimen Type: PLASMA Comment: No hemolysis noted. Ordering Provider: KHARI SIMMONS SE Report Released Date/Time: Aug 10, 2024 12:01 PM Reporting Lab: [place] [address] [facility] [address] Performing Lab: [place] [address] [facility] [address] [facility] COMPREHEN SIVE METABOLIC PANEL UREA NITROGEN [MASS/VOLU ME] IN SERUM OR PLASMA 11.5 mg/dL 9.0 - 25.0 08/17 Specimen Type: PLASMA Comment: No hemolysis noted. Ordering Provider: KHARI SIMMONS SE Report Released Date/Time: Aug 10, 2024 12:01 PM Reporting Lab: [place] [address] [facility] [address] Performing Lab: [place] [address] [facility] [address] [facility] COMPREHEN SIVE METABOLIC PANEL GLUCOSE [MASS/VOLU ME] IN SERUM OR PLASMA 101 mg/dL 72 - 99 08/17 H Specimen Type: PLASMA Comment: No hemolysis noted. Ordering Provider: KHARI SIMMONS SE Report Released Date/Time: Aug 10, 2024 12:01 PM Reporting Lab: [place] [address] [facility] [address] Performing Lab: [place] [id number] [facility] [address] [facility] COMPREHEN SIVE METABOLIC PANEL SODIUM [MOLES/VOL UME] IN SERUM OR PLASMA 135 meq/L 136 - 145 08/17 L Specimen Type: PLASMA Comment: No hemolysis noted. Ordering Provider: KHARI SIMMONS SE Report Released Date/Time: Aug 10, 2024 12:01 PM Reporting Lab: [place] [address] [facility] [address] Performing Lab: [place] [address] [facility] [address] [facility] COMPREHEN SIVE METABOLIC PANEL POTASSIUM [MOLES/VOL UME] IN SERUM OR PLASMA 4.2 meq/L 3.5 - 5 08/17 Specimen Type: PLASMA Comment: No hemolysis noted. Ordering Provider: KHARI SIMMONS SE Report Released Date/Time: Aug 10, 2024 12:01 PM Reporting Lab: [place] [address] [facility] [address] Performing Lab: [place] [address] [facility] [address] [facility] COMPREHEN SIVE METABOLIC PANEL CHLORIDE [MOLES/VOL UME] IN SERUM OR PLASMA 102 meq/L 98 - 107 08/17 Specimen Type: PLASMA Comment: No hemolysis noted. Ordering Provider: KHARI SIMMONS SE Report Released Date/Time: Aug 10, 2024 12:01 PM Reporting Lab: [place] [address] [facility] [address] Performing Lab: [place] [address] [facility] [address] [facility] COMPREHEN SIVE METABOLIC PANEL CARBON DIOXIDE, TOTAL [MOLES/VOL UME] IN SERUM OR PLASMA 25 meq/L 22 - 31 08/17 Specimen Type: PLASMA Comment: No hemolysis noted. Ordering Provider: KHARI SIMMONS SE Report Released Date/Time: Aug 10, 2024 12:01 PM Reporting Lab: [facility] [address] [facility] [address] Performing Lab: [place] [address] [facility] [address] [facility] COMPREHEN SIVE METABOLIC PANEL CALCIUM [MASS/VOLU ME] IN SERUM OR PLASMA 8.5 mg/dL 8.4 - 10.4 08/17 Specimen Type: PLASMA Comment: No hemolysis noted. Ordering Provider: KHARI SIMMONS SE Report Released Date/Time: Aug 10, 2024 12:01 PM Reporting Lab: [place] [address] [facility] [address] Performing Lab: [place] [address] [facility] [address] [facility] COMPREHEN SIVE METABOLIC PANEL PROTEIN [MASS/VOLU ME] IN SERUM OR PLASMA 6.6 g/dL 6 - 8.6 08/17 Specimen Type: PLASMA Comment: No hemolysis noted. Ordering Provider: KHARI SIMMONS SE Report Released Date/Time: Aug 10, 2024 12:01 PM Reporting Lab: [place] [address] [facility] [address] Performing Lab: [place] [address] [facility] [address] [facility] COMPREHEN SIVE METABOLIC PANEL ALBUMIN [MASS/VOLU ME] IN SERUM OR PLASMA 3.3 g/dL 3.4 - 5 08/17 L Specimen Type: PLASMA Comment: No hemolysis noted. Ordering Provider: KHARI SIMMONS SE Report Released Date/Time: Aug 10, 2024 12:01 PM Reporting Lab: [place] [address] [facility] [address] Performing Lab: [place] [address] [facility] [address] [facility] COMPREHEN SIVE METABOLIC PANEL BILIRUBIN. TOTAL [MASS/VOLU ME] IN SERUM OR PLASMA 0.4 mg/dL 0.2 - 1.2 08/17 Specimen Type: PLASMA Comment: No hemolysis noted. Ordering Provider: KHARI SIMMONS SE Report Released Date/Time: Aug 10, 2024 12:01 PM Reporting Lab: [address] [address] Performing Lab: [facility] [address] [facility] [address] [facility] COMPREHEN SIVE METABOLIC PANEL ALKALINE PHOSPHATAS E [ENZYMATIC ACTIVITY/V OLUME] IN SERUM OR PLASMA 95 U/L 40 - 150 08/17 Specimen Type: PLASMA Comment: No hemolysis noted. Ordering Provider: KHARI SIMMONS SE Report Released Date/Time: Aug 10, 2024 12:01 PM Reporting Lab: [place] [address] [facility] [address] Performing Lab: [place] [address] [facility] [address] [facility] COMPREHEN SIVE METABOLIC PANEL ASPARTATE AMINOTRANS FERASE [ENZYMATIC ACTIVITY/V OLUME] IN SERUM OR PLASMA 31 U/L 5 - 34 08/17 Specimen Type: PLASMA Comment: No hemolysis noted. Ordering Provider: KHARI SIMMONS SE Report Released Date/Time: Aug 10, 2024 12:01 PM Reporting Lab: [place] [address] [facility] [address] Performing Lab: [place] [address] [facility] [address] [facility] COMPREHEN SIVE METABOLIC PANEL ALANINE AMINOTRANS FERASE [ENZYMATIC ACTIVITY/V OLUME] IN SERUM OR PLASMA 9 U/L 8 - 40 08/17 Specimen Type: PLASMA Comment: No hemolysis noted. Ordering Provider: KHARI SIMMONS SE Report Released Date/Time: Aug 10, 2024 12:01 PM Reporting Lab: [place] [address] [facility] [address] Performing Lab: [place] [address] [facility] [address] [facility] COMPREHEN SIVE METABOLIC PANEL GLOMERULAR FILTRATION RATE/1.73 SQ M.PREDICTE D [VOLUME RATE/AREA] IN SERUM, PLASMA OR BLOOD BY CREATININE -BASED FORMULA (CKD-EPI 2020) 95.2 60 08/17 Specimen Type: PLASMA Comment: No hemolysis noted. Ordering Provider: KHARI SIMMONS SE Report Released Date/Time: Aug 10, 2024 12:01 PM Reporting Lab: [place] [address] [place] [address] Performing Lab: [address] TSH W/ REFLEX FT4 (STL) THYROTROPI N [UNITS/VOL UME] IN SERUM OR PLASMA 4.570 u[IU]/mL 0.47 - 5 08/17 Specimen Type: PLASMA No comment entered. Ordering Provider: KHARI SIMMONS SE Report Released Date/Time: Aug 10, 2024 12:01 PM Reporting Lab: [place] [address] [place] [address] Performing Lab: [address] CBC LEUKOCYTES [#/VOLUME] IN BLOOD BY AUTOMATED COUNT 4.9 10*3/uL 3.6 - 11.2 08/15 Specimen Type: BLOOD Comment: No clots detected in specimen. Ordering Provider: DEVYN CLOUD Report Released Date/Time: Aug 12, 2024 01:47 PM Reporting Lab: [place] [phone] Performing Lab: [address] CBC ERYTHROCYT ES [#/VOLUME] IN BLOOD BY AUTOMATED COUNT 2.93 10*6/uL 4.10 - 5.70 08/15 L Specimen Type: BLOOD Comment: No clots detected in specimen. Ordering Provider: DEVYN CLOUD Report Released Date/Time: Aug 12, 2024 01:47 PM Reporting Lab: [place] [address] [facility] [address] Performing Lab: [place] [address] [facility] [address] [facility] CBC HEMOGLOBIN [MASS/VOLU ME] IN BLOOD 9.0 g/dL 13.1 - 16.8 08/15 L Specimen Type: BLOOD Comment: No clots detected in specimen. Ordering Provider: DEVYN CLOUD Report Released Date/Time: Aug 12, 2024 01:47 PM Reporting Lab: [place] [address] [facility] [address] Performing Lab: [place] [address] [facility] [address] [facility] CBC HEMATOCRIT [VOLUME FRACTION] OF BLOOD 28.4 38.2 - 48.4 08/15 L Specimen Type: BLOOD Comment: No clots detected in specimen. Ordering Provider: DEVYN CLOUD Report Released Date/Time: Aug 12, 2024 01:47 PM Reporting Lab: [address] [address] Performing Lab: [place] [address] [facility] [address] [facility] CBC MCV [ENTITIC VOLUME] BY AUTOMATED COUNT 96.9 fL 80.0 - 100.0 08/15 Specimen Type: BLOOD Comment: No clots detected in specimen. Ordering Provider: DEVYN CLOUD Report Released Date/Time: Aug 12, 2024 01:47 PM Reporting Lab: [address] [address] Performing Lab: [address] [address] [facility] CBC MCH [ENTITIC MASS] BY AUTOMATED COUNT 30.7 pg 27.0 - 34.0 08/15 Specimen Type: BLOOD Comment: No clots detected in specimen. Ordering Provider: DEVYN CLOUD Report Released Date/Time: Aug 12, 2024 01:47 PM Reporting Lab: [address] [address] Performing Lab: [address] [address] [facility] CBC MCHC [MASS/VOLU ME] BY AUTOMATED COUNT 31.7 g/dL 33.0 - 36.0 08/15 L Specimen Type: BLOOD Comment: No clots detected in specimen. Ordering Provider: DEVYN CLOUD Report Released Date/Time: Aug 12, 2024 01:47 PM Reporting Lab: [address] [address] Performing Lab: [address] [phone] [place] [address] CBC PLATELETS [#/VOLUME] IN BLOOD BY AUTOMATED COUNT 86 10*3/uL 150 - 400 08/15 L Specimen Type: BLOOD Comment: No clots detected in specimen. Ordering Provider: DEVYN CLOUD Report Released Date/Time: Aug 12, 2024 01:47 PM Reporting Lab: [address] [address] Performing Lab: [address] [address] [facility] CBC PLATELET MEAN VOLUME [ENTITIC VOLUME] IN BLOOD BY AUTOMATED COUNT 11.3 fL 7.5 - 11.2 08/15 H Specimen Type: BLOOD Comment: No clots detected in specimen. Ordering Provider: DEVYN CLOUD Report Released Date/Time: Aug 12, 2024 01:47 PM Reporting Lab: [address] [address] Performing Lab: [address] [address] [facility] CBC SEGMENTED NEUTROPHIL S/100 LEUKOCYTES IN BLOOD BY MANUAL COUNT 94.0 08/15 Specimen Type: BLOOD Comment: No clots detected in specimen. Ordering Provider: DEVYN CLOUD Report Released Date/Time: Aug 12, 2024 01:47 PM Reporting Lab: [address] [address] Performing Lab: [address] [address] [facility] CBC MONOCYTES/ 100 LEUKOCYTES IN BLOOD BY AUTOMATED COUNT 2.6 08/15 Specimen Type: BLOOD Comment: No clots detected in specimen. Ordering Provider: DEVYN CLOUD Report Released Date/Time: Aug 12, 2024 01:47 PM Reporting Lab: [address] [address] Performing Lab: [address] [address] [facility] CBC BASOPHILS/ 100 LEUKOCYTES IN BLOOD BY MANUAL COUNT 0.8 08/15 Specimen Type: BLOOD Comment: No clots detected in specimen. Ordering Provider: DEVYN CLOUD Report Released Date/Time: Aug 12, 2024 01:47 PM Reporting Lab: [address] [address] Performing Lab: [address] [address] [facility] CBC ANISOCYTOS IS [PRESENCE] IN BLOOD BY LIGHT MICROSCOPY 1+ 08/15 Specimen Type: BLOOD Comment: No clots detected in specimen. Ordering Provider: DEVYN CLOUD Report Released Date/Time: Aug 12, 2024 01:47 PM Reporting Lab: [address] [address] Performing Lab: [address] [address] [facility] CBC POLYCHROMA KHURRAM [PRESENCE] IN BLOOD BY LIGHT MICROSCOPY 1+ 08/15 Specimen Type: BLOOD Comment: No clots detected in specimen. Ordering Provider: DEVYN CLOUD Report Released Date/Time: Aug 12, 2024 01:47 PM Reporting Lab: [address] [address] Performing Lab: [address] [address] [facility] CBC ERYTHROCYT E DISTRIBUTI ON WIDTH [RATIO] BY AUTOMATED COUNT 15.0 11.8 - 15.1 08/15 Specimen Type: BLOOD Comment: No clots detected in specimen. Ordering Provider: DEVYN CLOUD Report Released Date/Time: Aug 12, 2024 01:47 PM Reporting Lab: [address] [address] Performing Lab: [address] [address] [facility] CBC PAPPENHEIM ER BODIES 0 08/15 Specimen Type: BLOOD Comment: No clots detected in specimen. Ordering Provider: DEVYN CLOUD Report Released Date/Time: Aug 12, 2024 01:47 PM Reporting Lab: [place] [address] [facility] [address] Performing Lab: [address] [address] [facility] CBC LYMPHOCYTE S/100 LEUKOCYTES IN BLOOD BY MANUAL COUNT 2.6 08/15 Specimen Type: BLOOD Comment: No clots detected in specimen. Ordering Provider: DEVYN CLOUD Report Released Date/Time: Aug 12, 2024 01:47 PM Reporting Lab: [address] [address] Performing Lab: [address] [address] [facility] CBC PLATELETS RETICULATE D/100 PLATELETS IN BLOOD BY AUTOMATED COUNT 5.0 1.0 - 7.0 08/15 Specimen Type: BLOOD Comment: No clots detected in specimen. Ordering Provider: DEVYN CLOUD Report Released Date/Time: Aug 12, 2024 01:47 PM Reporting Lab: [place] [address] [place] [phone] Performing Lab: [address] CBC PLATELET ADEQUACY [PRESENCE] IN BLOOD BY LIGHT MICROSCOPY DECREASE D 08/15 Specimen Type: BLOOD Comment: No clots detected in specimen. Ordering Provider: DEVYN CLOUD Report Released Date/Time: Aug 12, 2024 01:47 PM Reporting Lab: [place] [address] [place] [address] Performing Lab: [address] CBC BASOPHILS [#/VOLUME] IN BLOOD BY MANUAL COUNT 0.04 10*3/uL 0.01 - 0.20 08/15 Specimen Type: BLOOD Comment: No clots detected in specimen. Ordering Provider: DEVYN CLOUD Report Released Date/Time: Aug 12, 2024 01:47 PM Reporting Lab: [place] [phone] Performing Lab: [place] [address] [facility] [address] [facility] CBC MONOCYTES [#/VOLUME] IN BLOOD BY MANUAL COUNT 0.13 10*3/uL 0.19 - 0.80 08/15 L Specimen Type: BLOOD Comment: No clots detected in specimen. Ordering Provider: DEVYN CLOUD Report Released Date/Time: Aug 12, 2024 01:47 PM Reporting Lab: [place] [address] Performing Lab: [address] [place] [place] [address] [facility] CBC LYMPHOCYTE S [#/VOLUME] IN BLOOD BY MANUAL COUNT 0.13 10*3/uL 0.77 - 4.50 08/15 L Specimen Type: BLOOD Comment: No clots detected in specimen. Ordering Provider: DEVYN CLOUD Report Released Date/Time: Aug 12, 2024 01:47 PM Reporting Lab: [place] [phone] Performing Lab: [place] [id number] CBC NEUTROPHIL S [#/VOLUME] IN BLOOD BY MANUAL COUNT 4.61 10*3/uL 2.10 - 8.00 08/15 Specimen Type: BLOOD Comment: No clots detected in specimen. Ordering Provider: DEVYN CLOUD Report Released Date/Time: Aug 12, 2024 01:47 PM Reporting Lab: [address] [address] Performing Lab: [address] [phone] [place] [address] GLUCOSE,B LOOD-poct (ST) GLUCOSE [MASS/VOLU ME] IN BLOOD BY AUTOMATED TEST STRIP 112 mg/dL 72 - 99 08/15 H Specimen Type: BLOOD Comment: Test Performed by: [id number] Meter #: [id number] Ordering Provider: DEIRDRE WILD Report Released Date/Time: Aug 15, 2024 05:21 AM Reporting Lab: [address] [address] Performing Lab: [address] Vital Signs Combined list of inpatient and outpatient Vital Signs from Department of Defense and Veterans Affairs, ranging from 12 months to all on record, depending upon the facility. Vital Sign Value Date Comments Source SYSTOLIC BLOOD PRESSURE 122 09/07/2024 11:38:47 [facility] DIASTOLIC BLOOD PRESSURE 76 09/07/2024 11:38:47 [facility] PULSE OXIMETRY 100 09/07/2024 11:38:47 [facility] WEIGHT 156.8 09/07/2024 11:38:47 [facility] BMI 21 kg/m2 09/07/2024 11:38:47 [facility] PAIN 0 09/07/2024 11:38:47 [facility] TEMPERATURE 97.3 09/07/2024 11:38:47 [facility] PULSE 78 09/07/2024 11:38:47 [facility] RESPIRATION 18 09/07/2024 11:38:47 [facility] SYSTOLIC BLOOD PRESSURE 125 08/31/2024 14:20:16 [facility] DIASTOLIC BLOOD PRESSURE 79 08/31/2024 14:20:16 [facility] PULSE OXIMETRY 100 08/31/2024 [facility]20[facility]IGHT 158.3 08/31/2024 14:20:16 [facility] BMI 22 kg/m2 08/31/2024 14:20:16 [facility] TEMPERATURE 97.5 08/31/2024 14:20:16 [facility] PULSE 83 08/31/2024 14:20:16 [facility] RESPIRATION 16 08/31/2024 14:20:16 [facility] SYSTOLIC BLOOD PRESSURE 134 08/15/2024 00:05:00 [facility] DIASTOLIC BLOOD PRESSURE 82 08/15/2024 00:05:00 [facility] PULSE OXIMETRY 98 08/15/2024 00:05:00 [facility] PAIN 3 08/15/2024 00:05:00 [facility] PULSE 67 08/15/2024 00:05:00 [facility] Gerry [facility] RESPIRATION 15 08/15/2024 00:05:[address] [facility] SYSTOLIC BLOOD PRESSURE 124 08/14/2024 00:46:[address] [facility] DIASTOLIC BLOOD PRESSURE 69 08/14/2024 00:46:06 [facility] PULSE OXIMETRY 97 08/14/2024 00:46:06 [facility] TEMPERATURE 98 08/14/2024 00:46:06 [facility] PULSE 72 08/14/2024 00:46:06 [facility] RESPIRATION 19 08/14/2024 00:46:[address] [facility] SYSTOLIC BLOOD PRESSURE 113 08/13/2024 04:53:11 [facility] DIASTOLIC BLOOD PRESSURE 53 08/13/2024 04:53:11 [facility] PULSE OXIMETRY 96 08/13/2024 04:53:11 [facility] PAIN 8 08/13/2024 04:53:11 [facility] TEMPERATURE 98.7 08/13/2024 04:53:11 [facility] PULSE 64 08/13/2024 04:53:11 [facility] RESPIRATION 22 08/13/2024 04:53:[address] [facility] Encounters Combined list of: 1) Encounters from Department of Veterans Affairs facilities going backup to the last 18 months, not all VA inpatient encounters are included; 2) Encounters from the Department of Defense facilities going backup to 280 months. Location Location Details Encounter Type Encounter Number Reason For Visit Attending Provider ADM Date DC Date Status Disposition Source [facility] Outpatient Encounter [id number] YUMIKO CEE 05/04 [facility] Outpatient Encounter [id number] 05/13 [facility] Outpatient Encounter [id number] Mague CHERY 05/16 [facility] Outpatient Encounter [id number] BORIS MALIK 05/16 [facility] EGD DIAGNOSTIC BRUSH WASH [id number] Diagnos is: ICD-10- CM B37.81 Sue l esophag itTK Ford E 05/16 [facility] OFFICE O/P EST LOW 20-29 MIN [id number] Diagnos is: ICD-10- CM Z01.818 Encount er for other preproc edural examina tion BORIS MALIK 05/16 [facility] Outpatient Encounter [id number] 05/16 [facility] Outpatient Encounter [id number] [id number] Mague CHERY 05/16 [facility] Outpatient Encounter [id number] DARRIUSGIL HERRING ISMANUEL 05/16 [facility] Outpatient Encounter [id number] [id number] DUNG CAMPOS 05/17 [facility] HEARING AID FITTING/CH ECKING 60471-6.65 [id number] 4 Diagnos is: ICD-10- CM 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 Outpatient Encounter [id number] 05/25 [facility] OFFICE O/P EST MOD 30-39 MIN 34302-9.65 [id number] 3 Diagnos is: ICD-10- CM H65.92 Unspeci fied nonsupp urative otitis media, left ear MATT CHIN 05/25 [facility] Outpatient Encounter [id number] [id number] 3 PARKER UMANA A 06/01 [facility] Outpatient Encounter [id number] [id number] 3 MORTEZASANDRINE HANNAH M 06/02 [facility] Outpatient Encounter 11325-3.65 [id number] 4 Diagnos is: ICD-10- CM C22.0 Liver cell carcino ma NIRALI BOLIVAR 06/23 [facility] Outpatient Encounter [id number] [id number] PARKER UMANA LY A 06/30 [facility] Outpatient Encounter [id number] [id number] 07/01 [facility] Outpatient Encounter [id number] [id number] 7 Diagnos is: ICD-10- CM B18.2 Chronic viral hepatit is NGHIA GARCIA 07/01 [facility] Outpatient Encounter [id number] [id number] 3 07/13 [facility] Outpatient Encounter [id number] [id number] 07/14 [facility] SELF-MGMT EDUC & TRA[place] 1 [place] [address]-565 [id number] 3 Diagnos is: ICD-10- CM D10.6 Benign neoplas m of FRANCESCO Mendoza 07/26 [facility] OFFICE O/P EST MOD 30 MIN 63806-1.65 [id number] Diagnos is: ICD-10- CM Z01.818 Encount er for other preproc edural examELIANA Stewart 07/26 [facility] Outpatient Encounter [id number] [id number] 07/26 [facility] Outpatient Encounter [id number] [id number] 4 JAMAAL CARRION 07/26 [facility] NSL/SINS NDSC SURG BX POLYPC 74632-9.65 [id number] 7 Abdiel DONOVAN 07/26 [facility] Outpatient Encounter [id number] 3 Abdiel DONOVAN MARIN 07/26 [facility] Outpatient Encounter 32570-4.65 [id number] 5 JEFFREYELIANA L 07/26 [facility] Outpatient Encounter 31598-4.65 [id number] 7 JACKIERadha NUNEZ KRISSYAbdiel 07/26 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 DENTAL PANORAMIC IMAGE 09011-0.65 [id number] 4 Diagnos is: ICD-10- CM Z01.20 Encount er for dental exam and cleanin g w/o abnorma l finding s MUNTEAN,SA BLE A 08/01 [facility] Outpatient Encounter 81216-8.65 [id number] 1 SHAKILA JORDAN 08/02 [facility] Outpatient Encounter 57777-6.65 [id number] 7 08/02 [facility] [place] [address]-0.65 7.80307303 2 Diagnos is: ICD-10- CM C80.1 Maligna nt (primar y) neoplas m, unspeci SHAKILA Zhang 08/03 [facility] Outpatient Encounter 27295-4.65 [id number] 6 GIOVANNA ARROYO 08/04 [facility] Outpatient Encounter 49092-9.65 [id number] 5 Diagnos is: ICD-10- CM R13.10 Dysphag ia, unspeci fied SERBAN,RAD U 08/04 [facility] Outpatient Encounter 97229-1.65 [id number] 9 BRENDEN KRISHNA 08/11 [facility] OFFICE O/P EST HI 40 MIN 10761-2.65 [id number] 7 Diagnos is: ICD-10- CM 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, unspeci fibob CANALESLER,KHARI SE 08/12 [facility] MED NUTRITION INDIV SUBSEQ 69019-8.65 [id number] 7 Diagnos is: ICD-10- CM C80.1 Maligna nt (primar y) neoplas m, unspeci SHAKILA Zhang 08/17 [facility] Outpatient Encounter 49978-8.65 [id number] 8 08/18 [facility] Outpatient Encounter 45068-2.65 [id number] 8 08/19 [facility] Outpatient Encounter 29343-4.65 [id number] 3 Diagnos is: ICD-10- CM 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, unspeci KHARI Coy SE 08/19 [facility] Outpatient Encounter 08978-0.65 [id number] 1 08/25 [facility] Outpatient Encounter 20693-3.65 [id number] 1 08/25 [facility] Outpatient Encounter 89903-9.65 [id number] 4 08/28 [facility] Outpatient Encounter 38574-6.65 7.96140894 5 08/29 [facility] Outpatient Encounter 57569-0.65 [id number] 8 Diagnos is: ICD-10- CM 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, unspeci KHARI Coy SE 08/31 [facility] Outpatient Encounter 17271-3.65 [id number] 8 09/08 [facility] Outpatient Encounter 33686-9.65 [id number] 2 09/14 [facility] Outpatient Encounter 87884-2.65 [id number] 6 HAVLIOGLU, NECAT S 09/18 [facility] Outpatient Encounter 68531-1.65 [id number] 2 HAVLIOGLU, NECAT S 09/18 [facility] Outpatient Encounter 49727-9.65 [id number] 8 09/21 [facility] Outpatient Encounter 55987-4.65 [id number] 4 Diagnos is: ICD-10- CM 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, unspeci fied KHARI SIMMONS SE 09/21 [facility] Outpatient Encounter 79014-6.65 [id number] [facility] 09/25 [facility] Out[facility] Encounter 21796-3.65 [id number] 978 [facility] 09/27 [facility] Outpatient Encounter 05141-8.65 [id number] 8 DUNG CAMPOS 09/28 [facility] Outpatient Encounter 90421-7.65 [id number] 4 Luis NUNN A 10/05 [facility] Outpatient Encounter 36106-0.65 [id number] 9 10/06 [facility] Outpatient Encounter 53548-7.65 [id number] 7 Diagnos is: ICD-10- CM R11.10 Vomitin g, unspeci fied YUMIKO CEE A 10/06 [facility] OFFICE O/P EST MOD 30 MIN 22642-4.65 [id number] 7 Diagnos is: ICD-10- CM 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, unspeci fied JAMAAL CARRION A 10/09 [facility] Outpatient Encounter 93890-2.65 [id number] 1 Diagnos is: ICD-10- CM 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, unspeci fied KHARI SIMMONS SE 10/26 [facility] Outpatient Encounter 48541-3.65 [id number] 3 10/26 [facility] Outpatient Encounter 30410-7.65 [id number] 7 11/13 [facility] Outpatient Encounter 80545-3.65 [id number] 5 CHINO HERRON 11/21 [facility] Outpatient Encounter 30003-0.65 [id number] 9 12/19 [facility] HC PRO PHONE CALL 5-10 MIN 85268-6.65 [id number] 7 Diagnos is: ICD-10- CM 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, face and neck ROX MATILDE 12/26 [facility] Outpatient Encounter 96008-4.65 [id number] 7 12/29 [facility] OFFICE O/P EST MOD 30 MIN 94367-1.65 [id number] 2 Diagnos is: ICD-10- CM 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 JAMAAL CARRION A 01/01 [facility] [place] [address]-1.65 [id number] 4 Diagnos is: ICD-10- CM R49.8 Other voice and resonan ce disorde PANTERA Cason N 01/01 [facility] Outpatient Encounter 82539-9.65 [id number] 5 01/04 [facility] Outpatient Encounter 49460-1.65 7.78307645 1 Diagnos is: ICD-10- CM 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 KHARI SIMMONS SE 01/04 [facility] Outpatient Encounter 37139-9.65 [id number] 8 01/08 [facility] OFFICE O/P EST MOD 30 MIN 77077-9.65 [id number] 9 Diagnos is: ICD-10- CM C22.0 Liver cell carcino YUMIKO Daigle A 01/12 [facility] HEARING AID REPAIR/MOD IFYING 91027-6.65 [id number] 2 Diagnos is: ICD-10- CM H90.3 Sensori neural hearing loss, VALERIA Tong 01/16 [facility] Outpatient Encounter 21490-0.65 [id number] 8 CHINO HERRON ROBBIN 03/21 [facility] OFFICE O/P EST MOD 30 MIN 53413-6.65 [id number] 1 Diagnos is: ICD-10- CM H25.13 Age-rel ated nuclear catarac t, JANEL Bell 03/21 [facility] IMMUNIZATI ON ADMIN 54025-1.65 7.79479126 3 Diagnos is: ICD-10- CM Z23 Encount er for immuniz atANGELA Pressley A 03/21 [facility] Outpatient Encounter 81632-6.65 [id number] 546 JANEL ZAZUETA 04/04 [facility] Outpatient Encounter 78268-4.65 [id number] 9 JANEL ZAZUETA 04/10 [facility] Outpatient Encounter 42280-8.65 [id number] 7 04/16 [facility] Outpatient Encounter 96686-8.65 [id number] 7 04/17 [facility] Outpatient Encounter 94170-2.65 [id number] 2 SANDRINE PRO M 04/18 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, unspeci fied ZOLKIND,PA UL A 04/26 [facility] Outpatient Encounter 89183-7 [id number] 1 ANDRE CORNELIUS L 04/26 [facility] HEARING AID FITTING/CH ECKING 50608-1.65 7.19940793 4 Diagnos is: ICD-10- CM H90.3 Sensori neural hearing loss, ever srinivasan DOLORES WATSON 05/02 [facility] Outpatient Encounter 10509-1.65 [id number] 3 05/11 [facility] ADMN SARSCOV2 VACC 1 DOSE 71318-6.65 [id number] 2 Diagnos is: ICD-10- CM Z23 Encount er for immuniz atalice PEREZ ANGELA A 05/11 [facility] Outpatient Encounter 78629-9.65 [id number] 8 Diagnos is: ICD-10- CM 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, unspeci fied KYLEEIANAKRYS AN,NIRALI R 05/17 [facility] Outpatient Encounter 06937-0.65 [id number] 8 05/17 [facility] Outpatient Encounter 39150-5.65 [id number] 0 05/22 [facility] Outpatient Encounter 01463-6.65 [id number] 4 05/28 [facility] OFF/OP EST MAY X REQ PHY/QHP 18801-3.65 7.69377000 6 Diagnos is: ICD-10- CM Z71.2 Person consult ing for explana tion of exam or test finding MICHELLE King 05/30 [facility] ORAL FUNCTION THERAPY 35819-1.65 7.68170724 8 Diagnos is: ICD-10- CM R13.11 Dysphag ia, oral phase YOUNGPANTERA N 06/07 [facility] Outpatient Encounter 61557-9.65 [id number] 0 TEGAN KIRK 06/07 [facility] OFFICE O/P EST MOD 30 MIN 35735-3.65 [id number] 3 Diagnos is: ICD-10- CM 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, unspeci fied KHARI SIMMONS SE 06/07 [facility] HC PRO PHONE CALL 11-20 MIN 55450-6.65 [id number] 8 Diagnos is: ICD-10- CM 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, unspeci fied MATILDE GRAMAJO 06/07 [facility] OFF/OP EST MAY X REQ PHY/QHP 41247-2.65 7.34153872 3 Diagnos is: ICD-10- CM Z71.2 Person consult ing for explana tion of exam or test finding MICHELLE King A 06/13 [facility] Outpatient Encounter 59964-3.65 [id number] 2 06/15 [facility] QNHP OL DIG ASSMT&MGMT 21+ 14747-4.65 [id number] 1 Diagnos is: ICD-10- CM 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, unspeci fied Reba ELMORE 06/15 [facility] HC PRO PHONE CALL 5-10 MIN 74629-5.65 [id number] 2 Diagnos is: ICD-10- CM 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, unspeci fied KRISTIR, MATILDE 06/15 [facility] OFFICE O/P EST MOD 30 MIN 73491-9.65 [id number] 9 Diagnos is: ICD-10- CM 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, unspeci fied KHARI SIMMONS SE 07/13 [facility] CHEMO IV INFUSION 1 HR 15213-5.65 7.00502542 7 Diagnos is: ICD-10- CM 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.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 MICHELLE Wells 07/13 [facility] Outpatient Encounter 43892-1.65 [id number] 0 07/13 [facility] HLTH BHV ASSMT/REAS SESSMENT 18831-7.65 [id number] 6 Diagnos is: ICD-10- CM 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, unspeci fied BAN HAYES ER D 07/13 [facility] Outpatient Encounter 15030-1.65 [id number] 4 07/17 [facility] PH1 ASSMT&MGMT NQHP 5-10 21015-8.65 7.09608984 2 Diagnos is: ICD-10- CM 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, unspeci fied ROX, MATILDE 07/17 [facility] Inpatient Encounter 78804-1.65 [id number] 5 RONDA MONROE 07/17 [facility] CRITICAL CARE FIRST HOUR 95444-0.65 [id number] 6 Diagnos is: ICD-10- CM A41.89 Other specifi ed sepsis CASTRO BOONE JOSESITO 07/17 [facility] Outpatient Encounter 80517-2.65 [id number] 7 07/17 [facility] Transfuse Nonaut Platelets in Periph Vein, Perc 94741-9.65 [id number] 8 Admit Reason: ACUTE BLOOD LOSS ANEMIA ABDICAMDEN 07/17 [facility] CRITICAL CARE FIRST HOUR 96710-5.65 7.69823793 4 CAMDEN PATTON 07/17 [facility] Inpatient Encounter 90311-3.65 [id number] 3 CATHERINE MIRELES 07/17 [facility] Inpatient Encounter 18892-6.65 [id number] 5 CATHERINE MIRELES 07/17 [facility] Inpatient Encounter 66410-3.65 [id number] 2 Karen KELLER 07/17 [facility] Inpatient Encounter 72888-8.65 [id number] 6 07/18 [facility] Inpatient Encounter 67467-5.65 [id number] 5 SYLVIA RONDON 07/18 [facility] IP/OBS CONSLTJ NEW/EST HI 80 78439-7.65 [id number] 9 Diagnos is: ICD-10- CM K92.2 Gastroi ntestin al hemorrh age, unspeci fied ABRAHAMFIONA MORAN S 07/18 [facility] Inpatient Encounter 21692-1.65 [id number] 1 07/18 [facility] OFFICE O/P EST HI 40 MIN 82927-2.65 7.12198282 8 Diagnos is: ICD-10- CM Z01.818 Encount er for other preproc edural examLEONEL Miller 07/18 [facility] Inpatient Encounter 78136-4.65 7.99128740 2 MILLERKEO I 07/18 [facility] Inpatient Encounter 03261-4.65 7.75294236 1 07/18 [facility] Inpatient Encounter 67015-3.65 7.50386755 5 07/18 [facility] EGD DIAGNOSTIC BRUSH WASH 80942-5.65 7.82075730 9 Diagnos is: ICD-10- CM 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 GIOVANNA Zaidi 07/18 [facility] Inpatient Encounter 24457-0.65 [id number] 4 KEO BHATT I 07/18 [facility] Inpatient Encounter 84081-4.65 7.95759086 8 LINDSAY OG A 07/18 [facility] CRITICAL CARE FIRST HOUR 59887-4.65 7.69513511 7 Diagnos is: ICD-10- CM D62 Acute posthem orrhagi c anemia Reg PAULINO NDREA 07/18 [facility] Inpatient Encounter 32258-9.65 [id number] 4 Karen KELLER 07/18 [facility] Inpatient Encounter 06144-4.65 7.72932809 0 CATHERINE MIRELES ILLE DION 07/18 [facility] Inpatient Encounter 11507-6.65 7.04224203 4 07/19 [facility] CRITICAL CARE FIRST HOUR 45343-3.65 [id number] 9 NOAM CORTEZ 07/19 [facility] MONUMENT CARVER ASSESSMENT 42913-1.65 7.07746387 8 Diagnos is: ICD-10- CM Z71.81 Spiritu al or religio disability counselor JAM Alberto 07/19 [facility] Inpatient Encounter 90369-0.65 7.24397472 7 LINDSAY OG A 07/19 [facility] EVALUATE SWALLOWING FUNCTION 22449-6.65 [id number] 8 Diagnos is: ICD-10- CM R13.11 Dysphag ia, oral phase PANTERA GUZMAN N 07/19 [facility] SBSQ HOSP IP/OBS MODERATE 35 61712-9.65 7.66187142 2 Diagnos is: ICD-10- CM K92.1 FIONA Gonzalez S 07/19 [facility] Inpatient Encounter 19383-0.65 7.86692334 2 JIM BATES J 07/19 [facility] Inpatient Encounter 13718-9.65 7.89004089 7 JIM ABTES J 07/19 [facility] Inpatient Encounter 47077-0.65 [id number] 1 07/20 [facility] SBSQ HOSP IP/OBS MODERATE 35 43039-1.65 7.01350509 8 RAMSES JEAN R 07/20 [facility] Inpatient Encounter 58314-6.65 [id number] 0 Shi FAULKNER 07/20 [facility] IP/OBS CNSLTJ NEW/EST MOD 60 81405-1.65 [id number] 8 Diagnos is: ICD-10- CM 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, timi Reg Jhaveri NDREA 07/20 [facility] 73198-9.65 [id number] 9 MARSHALL DAVID 07/20 [facility] Inpatient Encounter 06146-8.65 [id number] 0 MARSHALL DAVID 07/20 [facility] Inpatient Encounter 36047-3.65 [id number] 0 MARSHALL DAVID 07/20 [facility] Inpatient Encounter 36754-0.65 [id number] 7 Shi FAULKNER 07/20 [facility] Inpatient Encounter 42222-5.65 [id number] 8 NULL,NARESH CEZAR N 07/20 [facility] Inpatient Encounter 96781-2.65 [id number] 6 NULL,NARESH ROBB N 07/20 [facility] Inpatient Encounter 55323-6.65 [id number] 2 07/20 [facility] Inpatient Encounter 97075-2.65 [id number] 0 07/21 [facility] Inpatient Encounter 91933-2.65 [id number] 5 NULL,NARESH ROBB N 07/21 [facility] Encounter 87835-2.65 [id number] 9 NULL,NARESH ROBB N 07/21 [facility] SBSQ HOSP IP/OBS MODERATE 35 75647-8.65 7.72540927 9 Mague MAS 07/21 [facility] Inpatient Encounter 17400-9.65 [id number] 6 KATIE ANAYA 07/21 [facility] Inpatient Encounter 93293-4.65 [id number] 9 KAURUDTAY Buckley C 07/21 [facility] 38169-7.65 [id number] 6 TAY SALAZAR C 07[facility]21 [facility] Encounter 82951-7.65 [id number] 2 KAURUDTAY BuckleyA C 07/21 [facility] Inpatient Encounter 39135-8.65 [id number] 7 KAURUDTAY BuckleyA C 07/21 [facility] Inpatient Encounter 20103-3.65 [id number] 5 NULL,NARESH ROBB N 07/21 [facility] Inpatient Encounter 45452-5.65 [id number] 1 NULL,NARESH ROBB N 07/21 [facility] Inpatient Encounter 33913-4.65 [id number] 4 NULL,NARESH ROBB N 07/21 [facility] Inpatient Encounter 21088-2.65 [id number] 6 07/22 [facility] Inpatient Encounter 31808-0.65 [id number] 2 NULL,NARESH ROBB N 07/22 [facility] Inpatient Encounter 63726-8.65 [id number] 9 DERIAN ROWE 07/22 [facility] Inpatient Encounter 15180-9.65 [id number] 3 MARIN MCCAIN 07/22 [facility] HOSP IP/OBS DSCHRG MGMT >30 27517-3.65 [id number] 7 Mague MAS 07/22 [facility] Encounter 96073-1.65 [id number] 6 GLORY TANNER 07/24 [facility] Outpatient Encounter 27609-6.65 [id number] 1 07/25 [facility] PH1 ASSMT&MGMT NQHP 21-30 22507-3.65 [id number] Diagnos is: ICD-10- CM K21.9 Gastro- esophag eal reflux disease without esophag itis MORTEZA,CHR HANNAH M 07/25 PH1 ASSMT&MGMT NQHP 5-10 39897-9.65 [id number] Diagnos is: ICD-10- CM 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 PRO,CHR HANNAH M 07/26 [facility] PH1 ASSMT&MGMT NQHP 11-20 47713-9.65 [id number] 8 Diagnos is: ICD-10- CM 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, unspeci fied REINACHER, MATILDE 07/27 [facility] Outpatient Encounter 32220-9.65 [id number] [facility] Outpatient Encounter 91487-8.65 [id number] 7 FRANCESCO PERDOMO 07/27 [facility] EMERGENCY DEPT VISIT LOW MDM 13090-5.65 [id number] 8 Diagnos is: ICD-10- CM K74.60 Unspeci fied cirrhos is of liver [facility] ED 07/27 [facility] Outpatient Encounter 61760-4.65 [id number] 3 07/27 [facility] Outpatient Encounter 20509-6.65 [id number] [facility] OFFICE O/P EST MOD 30 MIN 36282-0.65 [id number] 5 Diagnos is: ICD-10- CM 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, unspeci KHARI Coy SE 08/02 [facility] MED NUTRITION INDIV SUBSEQ 90427-6.65 [id number] 2 Diagnos is: ICD-10- CM C80.1 Maligna nt (primar y) neoplas m, unspeci SHAKILA Zhang M 08/02 [facility] Outpatient Encounter 61459-9.65 [id number] 9 08/08 [facility] OFFICE O/P EST HI 40 MIN 38032-4.65 [id number] 5 Diagnos is: ICD-10- CM C22.0 Liver cell carcino KHARI Molina SE 08/10 [facility] MED NUTRITION INDIV SUBSEQ 37827-3.65 [id number] 2 Diagnos is: ICD-10- CM C80.1 Maligna nt (primar y) neoplas m, unspeci lebron JORDAN ,SHAKILA M 08/10 [facility] Outpatient Encounter 01500-4.65 [id number] 9 FRANCESCO PERDOMO 08/10 [facility] [place] MDM 36515-4.65 [id number] 9 Diagnos is: ICD-10- CM K92.2 Gastroi ntestin al hemorrh age, unspeci Rocky Moe MD 08/10 [facility] Outpatient Encounter 34787-0.65 [id number] 7 08/10 [facility] Inpatient Encounter 85436-6.65 [id number] 4 08/10 [facility] Excision of Duodenum, Endo, Diagn 32059-8.65 [id number] 8 Admit Reason: GI BLEED,U NCLEAR SOURCE ONEReg,MED 08/10 [facility] 1ST HOSP IP/OBS HIGH 75 37667-9.65 [id number] 6 FIONA ABRAHAM 08/10 [facility] IP/OBS CNSLTJ NEW/EST MOD 60 90931-2.65 [id number] 8 VIRGINIA BARRAGAN 08/10 [facility] Inpatient Encounter 87708-6.65 [id number] 5 KYRA VAN 08/10 [facility] Inpatient Encounter 33600-9.65 [id number] 1 FIONA ABRAHAM 08/10 [facility] Inpatient Encounter 50704-2.65 [id number] 0 FIONA ABRAHAM 08/10 [facility] Inpatient Encounter 33932-9.65 [id number] 9 IVANA THOMAS 08/10 [facility] Inpatient Encounter 77129-2.65 [id number] 3 RADHA CORDERO Gerry 08/10 [facility] Inpatient Encounter 67548-9.65 [id number] 2 08/11 [facility] Inpatient Encounter 18298-6.65 [id number] 2 RADHA CORDERO TOHORACIO Gerry 08/11 [facility] SBSQ HOSP IP/OBS MODERATE 35 45167-9.65 [id number] 9 LEIGHFIONA Rocky 08/11 [facility] Inpatient Encounter [id number] [id number] 7 ALMA DELIA SCHMIDT 08/11 [facility] Inpatient Encounter 17477-9.65 [id number] 2 ALMA DELIA SCHMIDT 08/11 [facility] 1ST HOSP IP/OBS MODERATE 55 34058-9.65 [id number] 4 Diagnos is: ICD-10- CM K92.1 [place] Phillip 08/11 [facility] 1ST HOSP IP/OBS HIGH 75 [id number] [id number] 2 Diagnos is: ICD-10- CM K92.1 [place] Phillip 08/11 [facility] OFFICE O/P EST LOW 20 MIN [id number] [id number] 8 Diagnos is: ICD-10- CM Z01.818 Encount er for other preproc edural examina angel TAVERA,ER IN A 08/11 [facility] SBSQ HOSP IP/OBS HIGH 50 81832-3.65 [id number] 2 Diagnos is: ICD-10- CM K92.1 Beba ROJAS RV[place] T 08/11 [facility] Inpatient Encounter [id number] [id number] 5 ALMA DELIA SCHMIDT 08/11 [facility] Inpatient Encounter 42539-2.65 [id number] 2 ILNK LOWEICA A 08/11 [facility] Inpatient Encounter 58727-4.65 [id number] 5 LINK LOWEICA A 08/11 [facility] Inpatient Encounter 21573-2.65 [id number] 1 08/12 [facility] Inpatient Encounter 37330-6.65 [id number] 3 LINK LOWEICA A 08/12 [facility] Inpatient Encounter 15276-0.65 [id number] 8 LOTTIE SANCHEZ 08/12 [facility] Inpatient Encounter 44846-6.65 [id number] 6 ALMA DELIA SCHMIDT 08/12 [facility] Inpatient Encounter 43412-3.65 [id number] 1 ALMA DELIA SCHMIDT 08/12 [facility]BS MODERATE 35 44155-1.65 [id number] 0 FIONA ABRAHAM 08/12 [facility] En[facility] 71613-8.65 [id number] 0 SANGEETA SCHMIDTG 08/12 [facility] En[facility] 73976-5.65 [id number] 1 Shi SANCHEZ 08/12 [facility] En[facility] 71778-4.65 [id number] 7 Shi SANCHEZ 08/12 [facility] En[facility] 71572-6.65 [id number] 8 Shi SANCHEZ 08/12 [facility] En[facility] 06447-3.65 [id number] 6 Shi SANCHEZ S 08/12 [facility] Inpatient Encounter 13365-1.65 [id number] 1 08/13 [facility] Encounter 24686-7.65 [id number] 2 Shi SANCHEZ 08/13 [facility] S[facility] IP/OBS MODERATE 35 65307-0.65 [id number] 4 CORTEZCANDIRadha Bowser 08/13 [facility] Inpatient Encounter 41617-8.65 [id number] 6 FREDDIE RAMIREZ W 08/13 [facility] Inpatient Encounter 44175-1.65 [id number] 8 FREDDIE RAMIREZ W 08/13 [facility] Inpatient Encounter 92888-4.65 [id number] 3 FREDDIE RAMIREZ W 08/13 [facility] Inpatient Encounter 75694-6.65 [id number] 3 08/13 [facility] Inpatient Encounter 66500-5.65 [id number] 7 08/13 [facility] Inpatient Encounter 84633-0.65 [id number] 6 FREDDIE RAMIREZ W 08/13 [facility] S[facility] IP/OBS MODERATE 35 46490-5.65 [id number] 0 Diagnos is: ICD-10- CM K92.1 GERARD Jett 08/13 [facility] Inpatient Encounter 35689-4.65 [id number] 6 SHAHZAD PINK 08/13 [facility] Inpatient Encounter 44791-9.65 [id number] 8 SHAHZAD PINK A 08/13 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 AIDANGERARD FORD EDDA Hidalgo 08/14 [facility] OFFICE O/P EST MOD 30 MIN [id number] Diagnos is: ICD-10- CM Z01.818 Encount er for other preproc edural examina tiBORIS Reynoso 08/14 [facility] Inpatient Encounter [id number] [id number] FREDDIE RAMIREZ W 08/14 [facility] EGD BIOPSY SINGLE/MUL TIPLE 06398-7.65 [id number] 3 Diagnos is: ICD-10- CM K92.1 DANNI Guallpa F 08/14 [facility] Inpatient Encounter [id number] [id number] VALENTINE GARY 08/14 [facility] Inpatient Encounter [id number] [id number] 7 08[facility]15 [facility] En[facility] [id number] [id number] 2 08/15 [facility] Inpatient Encounter [id number] [id number] Reg BROWN M 08[facility] En[facility] [id number] [id number] 8 Reg BROWN 08/[facility] En[facility] 10900-2.65 [id number] 6 08/15 [facility] Inpatient Encounter 09649-5.65 [id number] 5 GILSON OG W 08/15 [facility] Inpatient Encounter [id number] [id number] 0 FREDDIE RAMIREZ W 08/15 [facility] MONUMENT CARVER CEPHALOMETRIC ANALYST INDIVIDU 27774-2.65 [id number] 1 Diagnos is: ICD-10- CM Z71.81 Spiritu al or religio us disability counselor JAM Alberto F 08/15 [facility] Inpatient Encounter [id number] [id number] 3 FREDDIE RAMIREZ W 08/15 [facility] PH1 ASSMT&MGMT NQHP 5-10 68224-9.65 [id number] 3 Diagnos is: ICD-10- CM 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 PH1 ASSMT&MGMT NQHP 21-30 [id number] [id number] Diagnos is: ICD-10- CM K21.9 Gastro- esophag eal reflux disease without esophag itis SANDRINE PRO M 08/16 [facility] Outpatient Encounter [id number] [id number] 1 08/16 [facility] Outpatient Encounter [id number] [id number] 9 08/17 [facility] [id number] [id number] 08/17 [facility] Outpatient Encounter [id number] [id number] 3 SANDRINE PRO M 08/22 [facility] En[facility] [id number] [id number] 5 08/25 [facility] Outpatient Encounter [id number] [id number] 4 08/25 [facility] OFFICE O/P EST LOW 20 MIN [id number] [id number] 5 Diagnos is: ICD-10- CM 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, unspeci KHARI Coy SE 08/31 [facility] HEARING AID CHECK [place] [id number] [id number] 6 Diagnos is: ICD-10- CM Z46.1 Encount er for fitting and adjustm ent of hearing aid JOS MCNEAL 09/03 [facility] OFFICE O/P EST HI 40 MIN 36237-2.65 [id number] 5 Diagnos is: ICD-10- CM 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 LUUJOCELYNEYUMIKO 09/07 [facility] Outpatient Encounter [id number] [id number] 09/07 [facility] OFFICE O/P EST MOD 30 MIN 90592-9.65 [id number] 1 Diagnos is: ICD-10- CM 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, timi KHARI Coy SE 09/07 [facility] Outpatient Encounter [id number] [id number] 3 09/14 [facility] Outpatient Encounter [id number] [id number] 4 09/18 [facility] Outpatient Encounter [id number] [id number] 9 09/25 [facility] PH1 ASSMT&MGMT NQHP 5-10 [id number] [id number] 6 Diagnos is: ICD-10- CM 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 OFF/OP EST OCTOBER X REQ PHY/QHP [id number] [id number] 3 Diagnos is: ICD-10- CM K74.60 Unspeci fied cirrhos is of liver KETTLER,CA ROBBIN 09/27 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 Outpatient Encounter [id number] [id number] DONNA CEDILLO N 10/01 [facility] Outpatient Encounter [id number] [id number] SANDRA WHYTE NTHA L 10/02 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 Procedure Procedure Type Code Date Perfomer Comments Sourc e nasopharyngeal biopsy NSL/SINS NDSC SURG BX POLYPC 70203 07/26/2023 JORJE PEARSON [facility] Social History Combined list of available smoking, tobacco, and other social history from Department of Defense and Veterans Affairs facilities. Social History Type Response Date Comment Sourc e Tobacco smoking status NHIS ORYX ADMIT TOBACCO SCREEN NO 07/17/[address] [facility] History of tobacco use VA-TOBACCO FORMER USER 01/20/[address] [facility] History of tobacco use VA-TOBACCO NEVER USED 02/09/2022 [facility] History of tobacco use VA-TOBACCO FORMER USER 02/06/[address] [facility] Plan of Care List of future care activities from Department of Veterans Affairs facilities. Additional future care activities may be listed in the Assessment and Plan section. Date/Time Care Activity Care Activity Detail Facili ty 10/15/2024 AMBULATORY - SURGERY AMBULATORY - SURGERY [facility]
--- OUTSIDE RECORDS SUMMARY | 2024-10-08 17:05 | XMS_ITS | Encounter Summary ---
Author Name [facility] [place] [facility] [place] Address [address] [place] [address] Care Team Providers Care Program Rep Name Role Phone SUKHJINDER CHAHAL Primary Care Provider Unavail able Insurance Providers: All historical and current Section Date Range: From patient's date of to the date document was created. This section includes the names of all active insurance providers for the patient. Insurance Provider Type of Coverage Plan Name Start of Policy Coverage End of Policy Coverage Group Number Member ID Insurance Provider's Telephone Number Policy Matias's Name Patient's Relationship to Policy Matias AARP MED SUPP MEDIGAP PLAN G MEDIC ARE SUPPL EMENT Nov 25, 2021 PLAN G [id number] [phone] ELLEN HAWK VID PATIENT AARP MED SUPP MEDIGAP PLAN G MEDIC ARE SUPPL EMENT Nov 25, 2021 PLAN G [id number] [phone] ELLEN HAWK VID PATIENT MEDICARE (WNR) MEDICARE (M) PART B Sep 25, 2021 PART B [id number] ELLEN HAWK VID PATIENT MEDICARE (WNR) MEDICARE (M) PART A Aug 25, 2021 PART A [id number] [phone] ELLEN HAWKD PATIENT Selected Encounter This section includes the information on record at [place] for the Encounter. 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 Date/Time Primary/Secondary Diagnosis Diagnosis Name Provider Source Apr 23, 2024 09:43 PM PRIMARY Malignant neoplasm of nasopharynx, unspecified CLIFFORD OSMAN [facility] Plan of Treatment: Future Appointments (+ 6 months) and Future Tests (+/- 45 days) The Plan of Treatment section includes future care activities for the patient from [facility] [place] [facility]. This section includes future appointments and future orders which are active, pending or scheduled. Future Appointments This section includes appointments that were scheduled to occur 6 months from the date of the Encounter, up to a maximum of 20 appointments. The data comes from all [place] treatment facilities. Appointment Date/Time Appointment Type Appointme nt Facility Name May 02, 2024 01:30 PM AMBULATORY - SURGERY [facility] May 11, 2024 01:00 PM AMBULATORY - NONE [facility] May 11, 2024 02:15 PM AMBULATORY - NONE [facility] May 11, 2024 02:30 PM AMBULATORY - MEDICINE [facility] May 17, 2024 02:15 PM AMBULATORY - NONE [facility] May 22, 2024 03:30 PM AMBULATORY - NONE [facility] May 28, 2024 01:30 PM AMBULATORY - NONE [facility] Jun 07, 2024 11:15 AM AMBULATORY - REHAB MEDICIN E [facility] Jun 07, 2024 01:00 PM AMBULATORY - MEDICINE [facility] Jul 13, 2024 11:30 AM AMBULATORY - MEDICINE [facility] Jul 13, 2024 12:00 PM AMBULATORY - MEDICINE [facility] Jul 17, 2024 04:02 PM AMBULATORY - MEDICINE [facility] Jul 25, 2024 01:00 PM AMBULATORY - MEDICINE [facility] Jul 26, 2024 10:00 AM AMBULATORY - MEDICINE [facility] Jul 27, 2024 03:14 PM AMBULATORY - MEDICINE [facility] Aug 01, 2024 10:15 AM AMBULATORY - NONE [facility] Aug 02, 2024 11:30 AM AMBULATORY - MEDICINE [facility] Aug 02, 2024 11:31 AM AMBULATORY - MEDICINE [facility] Aug 10, 2024 11:00 AM AMBULATORY - MEDICINE [facility] Aug 10, 2024 11:31 AM AMBULATORY - [facility] Lab Results: +/- 30 days of the encounter This section includes the Chemistry and Hematology Lab Results on record with [facility] for the patient. Radiology Reports and Pathology Reports are provided separately, in subsequent sections. Lab Results This section contains the Chemistry/Hematology Results that were resulted 30 days before or 30 daysafter the date of the Encounter. Date/Time Source Result Type Result - Unit Interpretation Reference Range Specimen Type Comment May 11, 2024 02:35 PM [facility] TSH W/ REFLEX FT4 (STL) PLASMA Specimen Type: PLASMA No comment entered. Ordering Provider: TONY SIMMONS Report Released Date/Time: Jan 05, 2024 02:09 PM Reporting Lab: [address] [address] Performing Lab: [address] [address] TSH 1.974 u[IU]/mL 0.47-5 May 11, 2024 02:20 PM [facility] APTT PLASMA Specimen Type: PLASM A No comment entered. Ordering Provider: BAL CAREY Report Released Date/Time: May 11, 2024 02:03 PM Reporting Lab: [address] [address] Performing Lab: [address] [address] APTT 28.7 s 26.7-39.9 May 11, 2024 02:20 PM [facility] PT/INR NEW (STL-MA) PLASMA Specimen Type: PLAS MA No comment entered. Ordering Provider: BAL CAREY Report Released Date/Time: May 11, 2024 02:03 PM Reporting Lab: [place] [address] [facility] [address] Performing Lab: [place] [address] [facility] [address] PROTIME 12.1 s 9.4-12.5 INR VALUE 1.1 {INR} May 11, 2024 02:20 PM [facility] HEP B CORE AB TOTAL. (STL) SERUM Specimen Typ e: SERUM No comment entered. Ordering Provider: BAL CAREY Report Released Date/Time: May 11, 2024 02:18 PM Reporting Lab: [place] [address] [facility] [address] Performing Lab: [place] [address] [facility] [address] HEP B CORE AB TOTAL. (STL) Nonreactive N onreactive May 11, 2024 02:20 PM [facility] COMPREHENSIVE METABOLIC PANEL PLASMA Specimen Type: PLASMA Comment: No hemolysis noted. Ordering Provider: BAL CAREY Report Released Date/Time: May 11, 2024 02:03 PM Reporting Lab: [place] [address] [facility] [phone] Performing Lab: [place] [address] [facility] [address] CREATININE 1.06 mg/dL 0.7-1.3 UREA NITROGEN 20.5 mg/dL 9.0-25.0 GLUCOSE 125 mg/dL H 72-99 SODIUM 136 meq/L 136-145 POTASSIUM 4.4 meq/L 3.5-5 CHLORIDE 97 meq/L L 98-107 CARBON DIOXIDE 30 meq/L 22-31 CALCIUM 10.0 mg/dL 8.4-10.4 PROTEIN 8.5 g/dL 6-8.6 ALBUMIN 4.1 g/dL 3.4-5 TOTAL BILIRUBIN 1.0 mg/dL 0.2-1.2 ALKALINE PHOSPHATASE 137 U/L 40-150 AST/SGOT 29 U/L 5-34 ALT/SGPT 19 U/L 8-40 EGFR (CKD-EPI 2020) 76.9 >60 May 11, 2024 02:19 PM [facility] PROTEIN ELECTROPHORESIS BLOOD SERUM Specimen Type: SERUM Comment: Reference Range: None Detected normalcy status - Abnormal normalcy status - Abnormal NOTE: THIS RESULT IS FLAGGED ABNORMAL Evaluation reveals a restricted band (M-spike) migrating in the gamma globulin region. If not already requested, Immunofixation should be considered. Test Performed by [facility] [facility], [facility] [employer] [facility], [address] [place] [address] Tristin Iyer M.D., Ph.D., Director of Laboratories , CLIA [id number] PREVIOUS SUGAR: IgG Canon Ordering Provider: TONY SIMMONS Report Released Date/Time: Jan 05, 2024 02:08 PM Reporting Lab: [facility] [address] [facility] [address] Performing Lab: [address] ALPHA-1 GLOBULIN(SO-PB-STL) 0.3 g/dL 0.2 -0.3 ALPHA-2 GLOBULIN(SO-PB-STL) 0.8 g/dL 0.5 -0.9 BETA 1 GLOBULIN(SO-PB-STL) 0.4 g/dL 0.4- 0.6 GAMMA GLOBULIN (SO-PB-STL) 2.0 g/dL H 0.8- 1.7 TOTAL PROTEIN (SO-PB-STL) 7.9 g/dL 6.1-8 .1 ALBUMIN(ELECTROPHORESIS 4.1 g/dL 3.8-4.8 BETA 2 GLOBULIN (SO-PB) 0.3 g/dL 0.2-0.5 INTERPRETATION (STL-PB) SEE NOTE ABNORMAL PROTEIN BAND 1 (SO-PB-STL) 1.2 g/dL H May 11, 2024 02:19 PM [facility] IGM (STL) PLASMA Specimen Type: PLASM A Comment: No hemolysis noted. Ordering Provider: TONY SIMMONS Report Released Date/Time: Jan 05, 2024 02:08 PM Reporting Lab: [facility] [address] [facility] [address] Performing Lab: [facility] [address] [place] [phone] IGM (STL) 117 mg/dL 22-240 May 11, 2024 02:19 PM [facility] IGA (STL) PLASMA Specimen Type: PLASM A Comment: No hemolysis noted. Ordering Provider: TONY SIMMONS Report Released Date/Time: Jan 05, 2024 02:08 PM Reporting Lab: [facility] [address] [place] [phone] Performing Lab: [address] [phone] IGA (STL) 117 mg/dL 63-484 May 11, 2024 02:19 PM [facility] KAPPA/LAMBDA FREE LC PANEL (STL-PB) SERUM Spe cimen Type: SERUM No comment entered. Ordering Provider: TONY SIMMONS Report Released Date/Time: Jan 05, 2024 02:08 PM Reporting Lab: [place] [address] [facility] [address] Performing Lab: [address] [address] KAPPA FREE LC (STL) 92.4 mg/L H 2.4-20.7 LAMBDA FREE LC (STL) 25.6 mg/L 4.2-27.7 KAPPA/LAMBDA RATIO (STL) 3.61 H 0.22-1. 74 May 11, 2024 02:19 PM [facility] IGG (STL) PLASMA Specimen Type: PLASM A Comment: No hemolysis noted. Ordering Provider: TONY SIMMONS Report Released Date/Time: Jan 05, 2024 02:08 PM Reporting Lab: [facility] [address] [facility] [address] Performing Lab: [facility] [address] [facility] [address] IGG (STL) 2162 mg/dL H 540-1822 May 11, 2024 02:19 PM [facility] MAGNESIUM PLASMA Specimen Type: PLASM A Comment: No hemolysis noted. Ordering Provider: TONY SIMMONS Report Released Date/Time: Jan 05, 2024 02:09 PM Reporting Lab: [facility] [address] [place] [phone] Performing Lab: [address] [address] MAGNESIUM 1.9 mg/dL 1.6-2.6 May 11, 2024 02:19 PM [facility] PHOSPHOROUS PLASMA Specimen Type: PLASM A Comment: No hemolysis noted. Ordering Provider: TONY SIMMONS Report Released Date/Time: Jan 05, 2024 02:09 PM Reporting Lab: [place] [address] [facility] [address] Performing Lab: [address] [address] PHOSPHOROUS 2.5 mg/dL 2.3-4.7 May 11, 2024 02:19 PM [facility] COMPREHENSIVE METABOLIC PANEL PLASMA Specimen Type: PLASMA Comment: No hemolysis noted. Ordering Provider: TONY SIMMONS Report Released Date/Time: Jan 05, 2024 02:08 PM Reporting Lab: [address] [address] Performing Lab: [address] [address] CREATININE 1.04 mg/dL 0.7-1.3 UREA NITROGEN 19.6 mg/dL 9.0-25.0 GLUCOSE 125 mg/dL H 72-99 SODIUM 137 meq/L 136-145 POTASSIUM 4.5 meq/L 3.5-5 CHLORIDE 98 meq/L 98-107 CARBON DIOXIDE 29 meq/L 22-31 CALCIUM 10.1 mg/dL 8.4-10.4 PROTEIN 8.5 g/dL 6-8.6 ALBUMIN 4.1 g/dL 3.4-5 TOTAL BILIRUBIN 1.1 mg/dL 0.2-1.2 ALKALINE PHOSPHATASE 142 U/L 40-150 AST/SGOT 29 U/L 5-34 ALT/SGPT 20 U/L 8-40 EGFR (CKD-EPI 2020) 78.7 >60 May 11, 2024 02:19 PM [facility] CBC BLOOD Specimen Type: BLOOD No comment entered. Ordering Provider: TONY SIMMONS Report Released Date/Time: Jan 05, 2024 02:08 PM Reporting Lab: [facility] [address] [facility] [address] Performing Lab: [place] [address] [facility] [address] WBC 4.5 10*3/uL 3.6-11.2 RBC 4.26 10*6/uL 4.10-5.70 HGB 14.4 g/dL 13.1-16.8 HCT 40.9 38.2-48.4 MCV 96.0 fL 80.0-100.0 MCH 33.8 pg 27.0-34.0 MCHC 35.2 g/dL 33.0-36.0 PLT 70 10*3/uL L 150-400 MPV 12.3 fL H 7.5-11.2 RDW 13.3 11.8-15.1 IMMATURE PLT FRACTION 10.0 H 1.0-7.0 NEUTROPHILS 72.3 MONOCYTES 5.4 EOSINOPHILS 3.6 PAPPENHEIMER BODIES 0 LYMPHOCYTES 10.7 ATYPICAL LYMPHOCYTES 8.0 TEARDROPS 1+ PLT EST-CV DECREASED ADEQUATE EO#-MDIFF 0.16 10*3/uL 0.00-0.60 MONO#-MDIFF 0.24 10*3/uL 0.19-0.80 LYMPH#-MDIFF 0.84 10*3/uL 0.77-4.50 NEUT#-MDIFF 3.25 10*3/uL 2.10-8.00 Apr 23, 2024 11:26 AM [facility] GLUCOSE,BLOOD-poct (STL) BLOOD Specimen Type: BLOOD Comment: Test Performed by: [id number] Meter #: [id number] Ordering Provider: SUKHJINDER CHAHAL Report Released Date/Time: Apr 23, 2024 11:43 AM Reporting Lab: [facility] [address] [facility] [address] Performing Lab: [facility] [address] [facility] [address] GLUCOSE,BLOOD-poct (STL) 117 mg/dL H 72-99 Vital Signs: All taken on the encounter date This section contains inpatient and outpatient Vital Signs collected on the date of the Encounter. Date/Time Temperature Pulse Blood Pressure Respiratory Rate SP02 Pain Height Weight Body Mass Index Source Apr 23, 2024 01:29 PM 97.1 54 141/80 16 93 0 160.7 22 [facility] Social History: Smoking Status (Most current) and Tobacco Use (All prior to encounter date) This section includes the most current, and the historical, smoking and tobacco- related health factors from the [place] facility where the Encounter took place. Current Smoking Status This section includes the most current smoking, or tobacco-related health factor, from the [place] facility where the Encounter took place. Date/Time Current Smoking Status Comment Facil ity Jan 20, 2023 03:49 PM [place]-TOBACCO FORMER USER [facility] Tobacco Use History This section includes a history of the smoking, or tobacco-related health factors, that were collected on or before the date of the Encounter. The data comes from the [place] facility where the Encounter took place. Date/Time Smoking Status/Tobacco Use Comment F acility Jan 20, 2023 03:49 PM [place]-TOBACCO QUIT 15 YRS OR MORE [facility] Feb 06, 2021 04:28 PM [place]-TOBACCO FORMER USER [facility] Feb 06, 2021 04:28 PM [place]-TOBACCO QUIT 15 YRS OR MORE [facility] Radiology Reports: +/- 30 days of the encounter Radiology Reports For cases when an order for radiology services may have been completed prior to the date of the Encounter, the report list includes the Radiology Reports that were completed up to 30 days before dateof the Encounter. For cases when an order for radiology services may have been completed after the date of the Encounter, the report list also includes the Radiology Reports that were completed up to30 days after date of the Encounter. The data comes from all [place] treatment facilities. Date/Time Radiology Report Provider Source May 22, 2024 03:03 PM MRI ORBITS,FACE & NECK W/O&W CONT: ABRAHAM HAWK [id number] M Exm Date: MAY 22, 2024@15:03 Req Phys: TONY SIMMONS Loc: [facility] (Req'g Loc) Img Loc: [facility] Service: [facility], [facility] [address] [place] [address] (Case [id number] COMPLETE) MRI ORBITS,FACE & NECK W/O&W CONT(MRI Detailed) CPT:68393 Contrast Media : unspecified contrast media Reason for Study: Restaging PRODUCT SAFETY ADMINISTRATOR CANCER (Case [id number] COMPLETE) MRI 3D RENDERING W/O INDEPENDENT (MRI Detailed) CPT:42198 Clinical History: Responsible Attending: Tony Friedman Attending Contact Number: [phone] Resident Contact Number: Does your patient have an implanted device or hardware? (Any prosthesis, implant, shrapnel or bullet fragments) No Does your patient have any of the following (Please check all that apply) [ ] Pacemaker [ ] AICD [ ] Neuro-stimulator [ ] Bone Growth Stimulator [ ] Pain Pump [ ] Insulin Pump [ ] Cochlear Implant [ ] Ocular Implant [ ] Aneurysm Clip [ ] Vascular Clip Any other type of implant, please explain Does your patient have a Coronary Stent: No Does your patient have a an artificial Heart Valve: No Were any of the following intravascular implanted devices inserted less than 6 weeks ago: Stent No IVC Filter No Embolization Coils No Is your patient's weight >350lbs or abdominal and shoulder width >60cm? No Does your patient have Renal Failure, Chronic or Acute Renal Disease? No If ordering a contrasted enhanced MRI, you will be required to complete the order for creatine eGFR which is located at the bottom of the MRI ordering screen. If your patient is 60 years or older, the patient will need a recent eGFR within 30 days prior to the exam. NOTE: Incorrectly answering these questions may result in a delay in the procedure. A patient with a device or implant does not automatically mean the patient cannot receive an MRI. If your patient will have difficulty with a confined space, the provider will be responsible for ordering a sedation prior to the procedure, or to order an alternative procedure. Report Status: Verified Date Reported: MAY 23, 2024 Date Verified: MAY 23, 2024 Special Diet Cook E-Sig:/ES/EUGENIE ALAN MD Report: Multiplanar, multisequence MRI imaging through the neck was performed with and without IV contrast. Comparison: 12/20/2023 Findings: Regrowth of enhancing left nasopharyngeal mass with high T2 signal, image 15 of series 9. Approximately 2.1 x 3.3 x 2.7 cm. Suggestion of infiltrating enhancing soft tissues with high T2 signal, and with possible submucosal spread superiorly and laterally into the nasopharynx, anteriorly into the oropharynx, and medially and inferiorly into the oropharynx. True vocal cords are normal. Impression: Progression of tumor from prior MR imaging Primary Interpreting Staff: EUGENIE ALAN MD, Radiologist (Special Diet Cook) /RAMONE LOWE [facility] Apr 23, 2024 11:44 AM PET/CT TUMOR IMAGING (SKULL TO MID-THIGH)-P: ABRAHAM HAWK [id number] M Exm Date: APR 23, 2024@11:44 Req Phys: TAMIKA CARRION Loc: -NUCLEAR MEDICINE PET SCAN 2 Img Loc: -PET-CT Service: [address] [address] (Case [id number] COMPLETE) PET/CT TUMOR SKULL BASE TO MID-T(NM Detailed) CPT:48774 CPT Modifiers : PS PET TUMOR SUBSQ TX STRATEGY Reason for Study: nasopharynx cancer (Case 583 COMPLETE) F-18 FLUORODEOXYGLUCOSE (FDG),PER(NM Detailed) CPT:A9552 Clinical History: Report Status: Verified Date Reported: APR 23, 2024 Date Verified: APR 23, 2024 Special Diet Cook E-Sig:/ES/ROMANA PARISH M.D. Report: PATIENT NAME: ABRAHAM HAWK. CASE #: [id number], [id number]. PROCEDURE: PET/CT study from the vertex to mid thigh. 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 Patient did not complete radiation therapy due to complication. Past medical history of hepatocellular carcinoma status post TACE (08/05/2022 and 12/01/2022) TECHNIQUE: 9.45 mCi of F-18 FDG by IV in the right forearm. PET/CT image acquisition from the vertex to mid thigh. After approximately 63 minutes postinjection with a CT being low dose, noncontrast. No separate report for the CT was generated since it was used for localization and attenuation correction. Blood glucose level of the time of injection was 117 mg/DL. SUV calculation was based on body weight. Comparison made to prior PET/CT dated 01/16/2024. FINDINGS: For reference, SUV max of liver is 2.7, previously 2.8. HEAD AND NECK: The brain demonstrates physiologic activity. MRI is better for parenchymal evaluation if clinically warranted. There is interval increase in size and metabolic activity of the previously seen left nasopharyngeal hypermetabolic soft tissue mass SUV max currently 7.3, previously 6.4. There is interval increase in size/metabolic activity at the FDG avid lymphadenopathy on left level 2A SUV max of 11.8, previously 6.7. Redemonstrated increased activity within the lateral pterygoid/masseter muscle with SUV max 5.2, previously 4.8 is indeterminate if related to strain versus strain versus disease site. Left medial sphenoid/skull base increased FDG activity with SUV max 6.3, previously 8.2 without underlying osseous changes. Left mastoid air cells are opacified without focal abnormal radiotracer activity unchanged from prior. Symmetric increased radiotracer activity in the vocal cords, likely vocalization. CHEST: New FDG activity on right upper lobe in close proximity to oblique fissure mis fused on underlying new small pulmonary nodules measuring about 0.3 cm in maximum dimension with tree-in-bud appearance SUV max 0.8. Redemonstration of multiple pulmonary nodules in the left lingula showing mild FDG activity SUV max up to 1.0, previously 1.1 are unchanged from 07/28/2023 PET/CT. No pleural or pericardial effusion is identified. Diffuse mild increased activity within the esophagus likely inflammatory. Elevated left hemidiaphragm. ABDOMEN AND PELVIS: Posttreatment changes within the liver without focal abnormal FDG activity, respiratory motion partially degrades images on the upper liver/spleen. Redemonstrated splenomegaly without significant change prior study. Trace ascites without abnormal focal FDG activity. Pancreas, and adrenals glands appear grossly unremarkable. Heterogenous increased bowel activity is limiting evaluation. Diverticulosis without diverticulitis. Prostate gland is unremarkable. Nonobstructive bilateral renal calculi again seen. No hypermetabolic abdominal or pelvic lymphadenopathy is noted. Grossly unchanged photopenic cystic structure on the right groin with no abnormal FDG avid lymphadenopathy in the inguinal regions. MUSCULOSKELETAL: There is no abnormal FDG avid sclerotic or lytic osseous lesion is noted within the [id number]. Multilevel degenerative changes are noted throughout the spine. Multiple areas of increased muscular activity in the left more than right trapezius muscles and upper extremities likely to be muscle use/strain. Impression: 1. The previous sites of FDG avid disease within left nasopharyngeal mass, hypermetabolic left cervical nodes, and skull base show interval increase in size activity suggesting disease progression. 2. Grossly unchanged metabolic activity of the previously seen subcentimeter nodules in the left upper lung lobe and small cluster of new pulmonary nodules with mild FDG activity on the right upper lobe are of indeterminate etiology and possibly inflammatory/infectious. Consider close attention at follow up. 3. No abnormal focal FDG activity within the post treatment changes in the liver. Recommend clinical or imaging follow-up according to HCC protocol if clinically warranted. DIAGNOSTIC CODE: 1001 Dictated by Alcides Leija MD (PET/CT fellow). I, Romana Parish, have reviewed the images and report and concur with these findings. Primary Diagnostic Code: SIGNIFICANT ABNORMALITY, ATTN NEEDED Primary Interpreting Staff: ROMANA PARISH M.D., STAFF PHYSICIAN - DIAGNOSTIC IMAGING (Special Diet Cook) /PFT ROMANA PARISH [facility] Encounter Notes: All associated encounter notes This section contains the clinical notes associated to the Encounter. Date/Time Encounter Note(s) Provider Source Apr 24, 2024 01:21 PM ADDENDUM: LOCAL TITLE: Addendum STANDARD TITLE: ADDENDUM DATE OF NOTE: APR 24, 2024@13:21:49 ENTRY DATE: APR 24, 2024@13:21:51 AUTHOR: TAMIKA CARRION COSIGNER: URGENCY: STATUS: COMPLETED I have seen and examined this patient with the resident and was directly involved in the diagnosis and treatment planning. I have reviewed and agree with the resident's written documentation, unless otherwise noted. 68yo M with history as above, with nasopharyngeal cancer partially treated by radiation with progressive disease on PET scan. I discussed with the [facility] H&N team who do not see a surgical option for this patient. We will review him at tumor board for treatment discussion. Ms. Bhandari can we please add to TB for discussion? Thank you /es/ TAMIKA CARRION MD Staff Physician, Otolaryngology Signed: 04/24/2024 13:26 Receipt Acknowledged By: 04/25/2024 14:42 /loly/ KIM JETT Registered Nurse --- Original Document --- 04/23/24 OTOLARYNGOLOGY STL: APR 23, 2024 OTOLARYNGOLOGY-HEAD AND NECK SURGERY - ESTABLISHED PATIENT PROGRESS NOTE 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 He is overall doing well, denies ear pain, dysphagia, globus, aspiration, hemoptysis, voice change and unintentional weight loss. He stopped radiation early due to toxicity and bleeding and has continued with just homeopathic treatment (RSO oil). Interval (04/23/24): Patient presents for interval evaluation. He reports he continues to use RSO oil and feels that tumor may have resolved given symptoms are overall improved. PHYSICAL EXAM: GEN: Pt is WDWN, NAD, A&Ox3 FACE: Normocephalic/Atraumatic. No scars or cutaneous lesions. NOSE: External nose normal. Septum midline. Nasal mucosa moist. Turbinates normalappearing. EYES:EOMI. PERRL. Conjugate gaze. No nystagmus. Vision grossly intact. OC/OP: No upper teeth. Soft palate irregularity on the left side that is partially visualized and unclear if this is residual tumor or treatment effect. Mucosa moist without lesions. Hard & soft palate WNL. Tongue midline. Tonsils symmetric bilaterally. NECK:Hard, firm, minimally mobile left level 2 lymph node 2 cm in size NEURO:Cranial nerves II-XII intact. Flexible Fiberoptic Nasopharyngoscopy (CPT 24616) Procedure: A flexible laryngoscope was then passed along the floor of the nose, through to the nasopharynx and evaluating bilateral nasal cavities. Patient tolerated well. Findings: Bilateral nares and nasal cavities are patent. Healthy mucosa globally with thin mucus and no purulence. Well-developed middle and inferior turbinates. Septum without substantial deviation. Clear middle meatus and sphenoethmoid recesses. Notable exophytic mass of left nasopharynx partially obstructing with some extension to right nasopharynx along the floor. LABS/IMAGING/DIAGNOSTICS: PET CT (04/23/24): Impression: 1. The previous sites of FDG avid disease within left nasopharyngeal mass, hypermetabolic left cervical nodes, and skull base show interval increase in size activity suggesting disease progression. 2. Grossly unchanged metabolic activity of the previously seen subcentimeter nodules in the left upper lung lobe and small cluster of new pulmonary nodules with mild FDG activity on the right upper lobe are of indeterminate etiology and possibly inflammatory/infectious. Consider close attention at follow up. 3. No abnormal focal FDG activity within the post treatment changes in the liver. Recommend clinical or imaging follow-up according to HCC protocol if clinically warranted. 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 Since that time he has eleced for homeopathic treatment with RSO oil against advice from multidisciplinary H&N tumor board. Exam and scope today notable for increased tumor burden in nasopharynx and local spread to left neck. Interval PET scan with today confirming progression of locoregional disease. Discussed frankly patient progression of disease and he is understanding that this has not responded to non-traditional therapies. Patient is strongly has done against pursuing radiation treatment given significant side effects with loss attempts. He is open to considering surgical and chemotherapeutic options. We offered for his case to be discussed at the [facility] head and neck multidisciplinary tumor board given surgical resection at the nasopharynx would be beyond the scope of cares provided at [place], [place]. Patient is in agreement with this plan PLAN: -Discussion at upcoming [facility] head and neck tumor board to determine further recommendations for treatment plan. -ENT team will reach out via telephone to the patient following recommendations from this discussion for neck steps. Life Sustaining Treatment Orders /loly/ ROXANNA OSMAN RESIDENT PHYSICIAN Signed: 04/23/2024 21:41 /loly/ TAMIKA CARRION MD Staff Physician, Otolaryngology Cosigned: 04/24/2024 13:21 TAMIKA CARRION [facility] Apr 23, 2024 04:18 PM OTOLARYNGOLOGY NOTE: LOCAL TITLE: OTOLARYNGOLOGY ST[facility] STANDARD TITLE: OTOLARYNGOLOGY NOTE DATE OF NOTE: APR 23, 2024@16:18 ENTRY DATE: APR 23, 2024@16:19:07 AUTHOR: ROXANNA OSMAN EXP COSIGNER: TAMIKA CARRION URGENCY: STATUS: COMPLETED OTOLARYNGOLOGY STL Has ADDENDA APR 23, 2024 OTOLARYNGOLOGY-HEAD AND NECK SURGERY - ESTABLISHED PATIENT PROGRESS NOTE 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 He is overall doing well, denies ear pain, dysphagia, globus, aspiration, hemoptysis, voice change and unintentional weight loss. He stopped radiation early due to toxicity and bleeding and has continued with just homeopathic treatment (RSO oil). Interval (04/23/24): Patient presents for interval evaluation. He reports he continues to use RSO oil and feels that tumor may have resolved given symptoms are overall improved. PHYSICAL EXAM: GEN: Pt is WDWN, NAD, A&Ox3 FACE: Normocephalic/Atraumatic. No scars or cutaneous lesions. NOSE: External nose normal. Septum midline. Nasal mucosa moist. Turbinates normalappearing. EYES:EOMI. PERRL. Conjugate gaze. No nystagmus. Vision grossly intact. OC/OP: No upper teeth. Soft palate irregularity on the left side that is partially visualized and unclear if this is residual tumor or treatment effect. Mucosa moist without lesions. Hard & soft palate WNL. Tongue midline. Tonsils symmetric bilaterally. NECK:Hard, firm, minimally mobile left level 2 lymph node 2 cm in size NEURO:Cranial nerves II-XII intact. Flexible Fiberoptic Nasopharyngoscopy (CPT 90590) Procedure: A flexible laryngoscope was then passed along the floor of the nose, through to the nasopharynx and evaluating bilateral nasal cavities. Patient tolerated well. Findings: Bilateral nares and nasal cavities are patent. Healthy mucosa globally with thin mucus and no purulence. Well-developed middle and inferior turbinates. Septum without substantial deviation. Clear middle meatus and sphenoethmoid recesses. Notable exophytic mass of left nasopharynx partially obstructing with some extension to right nasopharynx along the floor. LABS/IMAGING/DIAGNOSTICS: PET CT (04/23/24): Impression: 1. The previous sites of FDG avid disease within left nasopharyngeal mass, hypermetabolic left cervical nodes, and skull base show interval increase in size activity suggesting disease progression. 2. Grossly unchanged metabolic activity of the previously seen subcentimeter nodules in the left upper lung lobe and small cluster of new pulmonary nodules with mild FDG activity on the right upper lobe are of indeterminate etiology and possibly inflammatory/infectious. Consider close attention at follow up. 3. No abnormal focal FDG activity within the post treatment changes in the liver. Recommend clinical or imaging follow-up according to HCC protocol if clinically warranted. 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 Since that time he has eleced for homeopathic treatment with RSO oil against advice from multidisciplinary H&N tumor board. Exam and scope today notable for increased tumor burden in nasopharynx and local spread to left neck. Interval PET scan with today confirming progression of locoregional disease. Discussed frankly patient progression of disease and he is understanding that this has not responded to non-traditional therapies. Patient is strongly has done against pursuing radiation treatment given significant side effects with loss attempts. He is open to considering surgical and chemotherapeutic options. We offered for his case to be discussed at the [facility] head and neck multidisciplinary tumor board given surgical resection at the nasopharynx would be beyond the scope of cares provided at [place], [place]. Patient is in agreement with this plan PLAN: -Discussion at upcoming [facility] head and neck tumor board to determine further recommendations for treatment plan. -ENT team will reach out via telephone to the patient following recommendations from this discussion for neck steps. Life Sustaining Treatment Orders /loly/ ROXANNA OSMAN RESIDENT PHYSICIAN Signed: 04/23/2024 21:41 /loly/ TAMIKA CARRION MD Staff Physician, Otolaryngology Cosigned: 04/24/2024 13:21 04/24/2024 ADDENDUM STATUS: COMPLETED I have seen and examined this patient with the resident and was directly involved in the diagnosis and treatment planning. I have reviewed and agree with the resident's written documentation, unless otherwise noted. 68yo M with history as above, with nasopharyngeal cancer partially treated by radiation with progressive disease on PET scan. I discussed with the [facility] H&N team who do not see a surgical option for this patient. We will review him at tumor board for treatment discussion. Ms. Bhandari can we please add to TB for discussion? Thank you /eze CARRION MD Staff Physician, Otolaryngology Signed: 04/24/2024 13:26 Receipt Acknowledged By: * AWAITING SIGNATURE * KIM JETT JORDAN J [facility]
--- OUTSIDE RECORDS SUMMARY | 2024-10-08 17:05 | XMS_ITS | Clinical Summary ---
Author Organization [facility] Address [address] [place] [address] Care Team Providers Care Drywall Taper Helper Name Role Phone Derrell Barrow MD Primary Care Provider [phone] Source Comments [facility],non-owned Affiliates and Associated Physician Practices is amultiple site organization consisting of ambulatory clinics and hospital sitesin [place], [place], [place] and [place]. This disclosure is being madepursuant to the Care Everywhere program and may not contain all information available regarding this patient. Last updated 18.[employer] Allergies No known active allergies Medications * [...] Comments Blood Pressure 151/89 07/25/2020 12:13 PM SYNOPTIC METEOROLOGIST Pulse 86 07/25/2020 12:13 PM SYNOPTIC METEOROLOGIST Temperature 36.2 C (97.2 F) 07/25/2020 12:13 PM SYNOPTIC METEOROLOGIST Respiratory Rate 9 06/04/2020 2:53 PM SYNOPTIC METEOROLOGIST Oxygen Saturation 97% 06/04/2020 2:53 PM SYNOPTIC METEOROLOGIST Inhaled Oxygen Concentration - - Weight 78.1 kg (172 lb 3.2 oz) 07/25/2020 12:13 PM SYNOPTIC METEOROLOGIST Height 182.9 cm (6') 07/25/2020 12:13 PM SYNOPTIC METEOROLOGIST Body Mass Index 23.35 07/25/2020 12:13 PM SYNOPTIC METEOROLOGIST Plan of Treatment Health Maintenance Due Date [...] Management General On track( 021 12:20 PM SYNOPTIC METEOROLOGIST) Viktoriya Seymour, RN Note: Expected end date: ongoing Interventions: Take all medications as prescribed Procedures Procedure Name Priority Date/Time Associated Diagnosis Comments HEPATITIS C RNA QUANTITATIVE Routine 07/25/2020 1:10 PM SYNOPTIC METEOROLOGIST Cirrhosis of liver without ascites, unspecified hepatic cirrhosis type ENDOSCOPY, COLON, SCREENING Routine 06/04/2020 1:49 PM SYNOPTIC METEOROLOGIST LIPID PROFILE (EXTERAL RESULT ENTRY) Routine 11/06/2019 from Last 3 Months or Most Recently Relevant to Health Maintenance Results * HEPATITIS C RNA QUANTITATIVE (07/25/2020 1:10 PM SYNOPTIC METEOROLOGIST) Hepatitis C RNA PCR, Interp Not Detected Not Detected 07/31/2020 11:09 AM SYNOPTIC METEOROLOGIST [facility] MICROBIOLOGY Blood BLOOD SPECIMEN / Unknown Lab Venipuncture / Unknown 07/25/2020 1:10 PM SYNOPTIC METEOROLOGIST 07/25/2020 4:[address] [facility] MICROBIOLOGY - 07/31/2020 11:09 AM SYNOPTIC METEOROLOGIST The Hepatitis C viral (HCV) RNA analysis utilized a serum sample, real-time reverse clay miller PCR, and is reported as Not Detected, [...] the isolation of HCV RNA with reverse clay miller of genomic HCV RNA followed by real-time PCR in the presence of an unrelated RNA internal control. The internal control ensures that RNA is isolated, and that no general significant inhibitors of the RT-PCR process are present. The analysis was performed using a U.S. FDA approved test methodology ([employer] Real Time HCV). us Tahmina Tyler APRN-ADOPTION AGENT LAB - CHEMISTRY SAROJ VALDEZ Final Result [facility] MICROBIOLOGY [address] [place] [address], [facility] [phone] * ENDOSCOPY, COLON, SCREENING (06/04/2020 1:49 PM SYNOPTIC METEOROLOGIST) Report Endoscopy POC Endoscopy Department Report _ [...] and oxygen saturations were monitored continuously. The [id number] was introduced through the anus and advanced to the cecum, identified by appendiceal orifice and ileocecal valve. The colonoscopy was performed without difficulty. The patient tolerated the procedure well. The quality of the bowel preparation was evaluated using the BBPS ([place] Bowel Preparation Scale) with scores of: Right [...] or abscess without bleeding CPT copyright 2019 [employer]. All rights reserved. The codes documented in this report are preliminary and upon director of vocational training review may be revised to meet current compliance requirements. ____ Frances Tejada MD 06/04/2020 2:19:46 PM This report has been signed electronically. Note Initiated On: 06/04/2020 1:49 PM Number of Addenda: [address] [id number] [facility] 06/04/2020 1:49 PM SYNOPTIC METEOROLOGIST us Frances Tejada MD GI PROCEDURE ORDERABLES Ed ited Result - Final [facility] * (ABNORMAL) LIPID PROFILE (EXTERAL RESULT ENTRY) [...] to Health Maintenance Insurance ANTHEM Care Teams Drywall Taper Helper Relationship Specialty Start Date End Date Derrell Barrow MD PCP - General Family Medicine 10/18/19
--- OUTSIDE RECORDS SUMMARY | 2024-10-08 17:06 | XMS_ITS | Encounter Summary ---
Author Name [facility] [place] [facility] [facility] [place] Address [address] [place] [address] Care Team Providers Care Installation Superintendent Name Role Phone SUKHJINDER CHAHAL Primary Care [...] SUPPL EMENT Nov 25, 2021 PLAN G [id number] [phone] ELLEN HAWK VID PATIENT AARP MED SUPP MEDIGAP PLAN G MEDIC ARE SUPPL EMENT Nov 25, 2021 PLAN G [id number] [phone] ELLEN HAWK VID PATIENT MEDICARE (WNR) MEDICARE (M) PART B Sep 25, 2021 PART B [id number] ELLEN HAWK VID PATIENT MEDICARE (WNR) MEDICARE (M) PART A Aug 25, 2021 PART A [id number] ELLEN HAWKD PATIENT Selected Encounter This section includes the information on record at [place] for the Encounter. Date/Time Encounter Type Encounter Description Reason Provider Source Aug 10, 2024 11:59 AM Outpatient Encounter EMERGENCY DEPT GONZALO PERDOMO Abdiel Encounter Template Text not used by [place] Plan of Treatment: Future Appointments (+ 6 months) and Future Tests (+/- 45 days) The Plan of Treatment section includes future care activities for the patient from [facility] [place] [facility] This section includes future appointments and future orders which are active, pending or scheduled. Future Appointments This section includes appointments that were scheduled to occur 6 months from the date of the Encounter, up to a maximum of 20 appointments. The data comes from all [facility]. Appointment Date/Time Appointment Type Appointme nt Facility Name Aug 16, 2024 10:00 AM AMBULATORY - MEDICINE [facility] Aug 17, 2024 08:30 AM AMBULATORY - MEDICINE [facility] Aug 17, 2024 09:00 AM AMBULATORY - MEDICINE [facility] Aug 17, 2024 09:30 AM AMBULATORY - MEDICINE [facility] Aug 23, 2024 12:00 PM AMBULATORY - NONE [facility] Aug 31, 2024 02:00 PM AMBULATORY - MEDICINE [facility] Sep 07, 2024 11:00 AM AMBULATORY - MEDICINE [facility] Sep 07, 2024 01:00 PM AMBULATORY - MEDICINE [facility] Oct 15, 2024 03:00 PM AMBULATORY - SURGERY [facility] Oct 19, 2024 02:00 PM AMBULATORY - NONE [facility] Active, Pending, and Scheduled Orders This section includes a listing of several types of active, pending, and scheduled orders, including clinic medications orders, diagnostic test orders, procedure orders and consult orders; where the start date of the order is 45 days before the date of the Encounter or 45 days after the date of theEncounter. The data comes from all [facility]. Test Date/Time Test Type Test Details Facility Name Jul 17, 2024 12:00 AM Laboratory - Blood Bank Order RED BLOOD CELLS - LAB VBECS - NO SPECIMEN REQUIRED SP [facility] Jul 17, 2024 12:00 AM Laboratory - Blood Bank Order FRESH FROZEN PLASMA - LAB VBECS - NO SPECIMEN REQUIRED [facility] Jul 17, 2024 06:13 PM Laboratory - Blood Bank Order DIRECT ANTIGLOBULIN TEST - LAB BLOOD STAT [facility] Jul 17, 2024 06:13 PM Laboratory - Blood Bank Order TYPE & SCREEN - LAB BLOOD [facility] Jul 18, 2024 12:00 AM Laboratory - Blood Bank Order PLATELETS - LAB VBECS - NO SPECIMEN REQUIRED [facility] Aug 10, 2024 12:00 AM Laboratory - Blood Bank Order RED BLOOD CELLS - LAB VBECS - NO SPECIMEN REQUIRED JOANN [facility] Aug 10, 2024 02:00 PM Laboratory - Blood Bank Order TYPE & SCREEN - LAB BLOOD [facility] Aug 10, 2024 05:43 PM Laboratory - Chemistry Order LIPASE GREEN LI/HEP BLD/PLAS PLASMA STAT I ONCE [facility] Aug 10, 2024 05:44 PM Laboratory - Microbiology Order BLOOD CULT (SET 2) B D BLD. BOTTLE (SET 2) BLOOD JOANN I NOW [facility] Aug 11, 2024 02:00 AM Laboratory - Chemistry Order CBC BLOOD [facility] Aug 14, 2024 02:00 AM Laboratory - Chemistry Order CBC BLOOD [facility] Aug 15, 2024 02:00 AM Laboratory - Chemistry Order CBC BLOOD [facility] Aug 16, 2024 12:00 AM Laboratory - Chemistry Order CBC BLOOD [facility] Aug 16, 2024 08:00 PM Laboratory - Chemistry Order CBC BLOOD [facility] Aug 17, 2024 08:00 PM Laboratory - Chemistry Order CBC BLOOD [facility] Lab Results: +/- 30 days of the encounter This section includes the Chemistry and Hematology Lab Results on record with [place] for the patient. Radiology Reports and Pathology Reports are provided separately, in subsequent sections. Lab Results This section contains the Chemistry/Hematology Results that were resulted 30 days before or 30 daysafter the date of the Encounter. Date/Time Source Result Type Result - Unit Interpretation Reference Range Specimen Type Comment Sep 07, 2024 12:39 PM [facility] COMPREHENSIVE METABOLIC PANEL PLASMA Specimen Type: PLASMA Comment: No hemolysis noted. Ordering Provider: TONY SIMMONS Report Released Date/Time: Aug 31, 2024 02:42 PM Reporting Lab: [address] [address] Performing Lab: [address] [address] CREATININE 0.87 mg/dL 0.7-1.3 UREA NITROGEN 24.5 mg/dL 9.0-25.0 GLUCOSE 161 mg/dL H 72-99 SODIUM 138 meq/L 136-145 POTASSIUM 4.5 meq/L 3.5-5 CHLORIDE 101 meq/L 98-107 CARBON DIOXIDE 27 meq/L 22-31 CALCIUM 9.2 mg/dL 8.4-10.4 PROTEIN 7.1 g/dL 6-8.6 ALBUMIN 3.7 g/dL 3.4-5 TOTAL BILIRUBIN 0.6 mg/dL 0.2-1.2 ALKALINE PHOSPHATASE 77 U/L 40-150 AST/SGOT 28 U/L 5-34 ALT/SGPT 20 U/L 8-40 EGFR (CKD-EPI 2020) 94.0 >60 Sep 07, 2024 12:39 PM [facility] CBC BLOOD Specimen Type: BLOOD No comment entered. Ordering Provider: TONY SIMMONS Report Released Date/Time: Aug 31, 2024 02:42 PM Reporting Lab: [address] [address] Performing Lab: [address] [address] WBC 5.1 10*3/uL 3.6-11.2 RBC 3.44 10*6/uL L 4.10-5.70 HGB 10.1 g/dL L 13.1-16.8 HCT 32.1 L 38.2-48.4 MCV 93.3 fL 80.0-100.0 MCH 29.4 pg 27.0-34.0 MCHC 31.5 g/dL L 33.0-36.0 PLT 59 10*3/uL L 150-400 MPV 11.3 fL H 7.5-11.2 RDW 14.6 11.8-15.1 IMMATURE PLT FRACTION 6.4 1.0-7.0 NEUTROPHILS 93.8 BAND NEUTROPHILS 0.9 MONOCYTES 0.9 HYPOCHROMIA 1+ PAPPENHEIMER BODIES 0 LYMPHOCYTES 3.5 ATYPICAL LYMPHOCYTES 0.9 PLT EST-CV DECREASED ADEQUATE IG#-MDIFF 0.05 0.00-0.05 MONO#-MDIFF 0.05 10*3/uL L 0.19-0.80 LYMPH#-MDIFF 0.22 10*3/uL L 0.77-4.50 NEUT#-MDIFF 4.78 10*3/uL 2.10-8.00 Sep 07, 2024 12:39 PM [facility] ALPHA-FETOPROTEIN(STL-PB) SERUM Specimen Type : SERUM No comment entered. Ordering Provider: CRYSTAL MASSEY Report Released Date/Time: Sep 07, 2024 11:59 AM Reporting Lab: [address] [address] Performing Lab: [address] [address] ALPHA-FETOPROTEIN(STL-PB) 15.01 ng/mL H 1- 8.78 Aug 31, 2024 02:04 PM [facility] COMPREHENSIVE METABOLIC PANEL PLASMA Specimen Type: PLASMA Comment: No hemolysis noted. Ordering Provider: TONY SIMMONS Report Released Date/Time: Aug 27, 2024 12:35 PM Reporting Lab: [address] [address] Performing Lab: [address] [address] CREATININE 0.90 mg/dL 0.7-1.3 UREA NITROGEN 26.4 mg/dL H 9.0-25.0 GLUCOSE 108 mg/dL H 72-99 SODIUM 137 meq/L 136-145 POTASSIUM 3.8 meq/L 3.5-5 CHLORIDE 100 meq/L 98-107 CARBON DIOXIDE 25 meq/L 22-31 CALCIUM 9.3 mg/dL 8.4-10.4 PROTEIN 7.3 g/dL 6-8.6 ALBUMIN 3.8 g/dL 3.4-5 TOTAL BILIRUBIN 0.4 mg/dL 0.2-1.2 ALKALINE PHOSPHATASE 87 U/L 40-150 AST/SGOT 28 U/L 5-34 ALT/SGPT 20 U/L 8-40 EGFR (CKD-EPI 2020) 93.6 >60 Aug 31, 2024 02:04 PM [facility] CBC BLOOD Specimen Type: BLOOD No comment entered. Ordering Provider: TONY SIMMONS Report Released Date/Time: Aug 27, 2024 12:35 PM Reporting Lab: [place] [address] [facility] [address] Performing Lab: [address] [address] WBC 4.7 10*3/uL 3.6-11.2 RBC 3.54 10*6/uL L 4.10-5.70 HGB 10.7 g/dL L 13.1-16.8 HCT 34.7 L 38.2-48.4 MCV 98.0 fL 80.0-100.0 MCH 30.2 pg 27.0-34.0 MCHC 30.8 g/dL L 33.0-36.0 PLT 79 10*3/uL L 150-400 MPV 11.5 fL H 7.5-11.2 RDW 15.1 11.8-15.1 IMMATURE PLT FRACTION 4.5 1.0-7.0 NEUTROPHILS 84.4 BAND NEUTROPHILS 0.9 MONOCYTES 4.3 ANISOCYTOSIS 1+ MACROCYTOSIS 1+ PAPPENHEIMER BODIES 0 LYMPHOCYTES 10.4 PLT EST-CV DECREASED ADEQUATE IG#-MDIFF 0.04 0.00-0.05 MONO#-MDIFF 0.20 10*3/uL 0.19-0.80 LYMPH#-MDIFF 0.49 10*3/uL L 0.77-4.50 NEUT#-MDIFF 3.97 10*3/uL 2.10-8.00 Aug 17, 2024 03:34 PM [facility] TSH W/ REFLEX FT4 (STL) PLASMA Specimen Type: PLASMA No comment entered. Ordering Provider: TONY SIMMONS Report Released Date/Time: Aug 10, 2024 12:01 PM Reporting Lab: [address] [address] Performing Lab: [address] [address] TSH 4.570 u[IU]/mL 0.47-5 Aug 17, 2024 03:34 PM [facility] COMPREHENSIVE METABOLIC PANEL PLASMA Specimen Type: PLASMA Comment: No hemolysis noted. Ordering Provider: TONY SIMMONS Report Released Date/Time: Aug 10, 2024 12:01 PM Reporting Lab: [address] [address] Performing Lab: [address] [address] CREATININE 0.85 mg/dL 0.7-1.3 UREA NITROGEN 11.5 mg/dL 9.0-25.0 GLUCOSE 101 mg/dL H 72-99 SODIUM 135 meq/L L 136-145 POTASSIUM 4.2 meq/L 3.5-5 CHLORIDE 102 meq/L 98-107 CARBON DIOXIDE 25 meq/L 22-31 CALCIUM 8.5 mg/dL 8.4-10.4 PROTEIN 6.6 g/dL 6-8.6 ALBUMIN 3.3 g/dL L 3.4-5 TOTAL BILIRUBIN 0.4 mg/dL 0.2-1.2 ALKALINE PHOSPHATASE 95 U/L 40-150 AST/SGOT 31 U/L 5-34 ALT/SGPT 9 U/L 8-40 EGFR (CKD-EPI 2020) 95.2 >60 Aug 17, 2024 03:34 PM [facility] CBC BLOOD Specimen Type: BLOOD Comment: No Clots Ordering Provider: TONY SIMMONS Report Released Date/Time: Aug 10, 2024 12:01 PM Reporting Lab: [address] [address] Performing Lab: [address] [address] WBC 5.0 10*3/uL 3.6-11.2 RBC 2.83 10*6/uL L 4.10-5.70 HGB 8.9 g/dL L 13.1-16.8 HCT 28.2 L 38.2-48.4 MCV 99.6 fL 80.0-100.0 MCH 31.4 pg 27.0-34.0 MCHC 31.6 g/dL L 33.0-36.0 PLT 140 10*3/uL L 150-400 MPV 11.2 fL 7.5-11.2 RDW 16.0 H 11.8-15.1 LYMPHOCYTES, AUTO % 12 MONOCYTES, AUTO % 13 NEUTROPHILS, AUTO % 67 EOSINOPHILS, AUTO % 7 BASOPHILS, AUTO % 1 LYMPHOCYTES, ABSOLUTE 0.61 10*3/uL L 0.77- 4.50 MONOCYTES, ABSOLUTE 0.63 10*3/uL 0.19-0. 80 NEUTROPHILS, ABSOLUTE 3.32 10*3/uL 2.10- 8.00 EOSINOPHILS, ABSOLUTE 0.36 10*3/uL 0.00- 0.60 BASOPHILS, ABSOLUTE 0.05 10*3/uL 0.00-0. 20 IMMATURE PLT FRACTION 4.9 1.0-7.0 Aug 15, 2024 07:20 AM [facility] CBC BLOOD Specimen Type: BLOOD Comment: No clots detected in specimen. Ordering Provider: CASH CLOUD Report Released Date/Time: Aug 12, 2024 01:47 PM Reporting Lab: [facility] [address] [facility] [address] Performing Lab: [address] [address] WBC 4.9 10*3/uL 3.6-11.2 RBC 2.93 10*6/uL L 4.10-5.70 HGB 9.0 g/dL L 13.1-16.8 HCT 28.4 L 38.2-48.4 MCV 96.9 fL 80.0-100.0 MCH 30.7 pg 27.0-34.0 MCHC 31.7 g/dL L 33.0-36.0 PLT 86 10*3/uL L 150-400 MPV 11.3 fL H 7.5-11.2 NEUTROPHILS 94.0 MONOCYTES 2.6 BASOPHILS 0.8 ANISOCYTOSIS 1+ POLYCHROMASIA 1+ RDW 15.0 11.8-15.1 PAPPENHEIMER BODIES 0 LYMPHOCYTES 2.6 IMMATURE PLT FRACTION 5.0 1.0-7.0 PLT EST-CV DECREASED ADEQUATE BASO#-MDIFF 0.04 10*3/uL 0.01-0.20 MONO#-MDIFF 0.13 10*3/uL L 0.19-0.80 LYMPH#-MDIFF 0.13 10*3/uL L 0.77-4.50 NEUT#-MDIFF 4.61 10*3/uL 2.10-8.00 Aug 15, 2024 04:54 AM [facility] GLUCOSE,BLOOD-poct (STL) BLOOD Specimen Type: BLOOD Comment: Test Performed by: [id number] Meter #: [id number] Ordering Provider: DEIRDRE WILD Report Released Date/Time: Aug 15, 2024 05:21 AM Reporting Lab: [address] [address] Performing Lab: [address] [address] GLUCOSE,BLOOD-poct (STL) 112 mg/dL H 72-99 Aug 14, 2024 08:30 PM [facility] CRP PLASMA Specimen Type: PLASM A No comment entered. Ordering Provider: CASH CLOUD Report Released Date/Time: Aug 12, 2024 10:14 AM Reporting Lab: [address] [address] Performing Lab: [address] [address] CRP 0.7 mg/dL H 0-0.5 Aug 14, 2024 08:30 PM [facility] CBC BLOOD Specimen Type: BLOOD No comment entered. Ordering Provider: GILSON OG Report Released Date/Time: Aug 10, 2024 04:01 PM Reporting Lab: [address] [address] Performing Lab: [address] [address] WBC 4.6 10*3/uL 3.6-11.2 RBC 2.83 10*6/uL L 4.10-5.70 HGB 8.9 g/dL L 13.1-16.8 HCT 27.5 L 38.2-48.4 MCV 97.2 fL 80.0-100.0 MCH 31.4 pg 27.0-34.0 MCHC 32.4 g/dL L 33.0-36.0 PLT 91 10*3/uL L 150-400 MPV 11.8 fL H 7.5-11.2 RDW 14.9 11.8-15.1 IMMATURE PLT FRACTION 5.8 1.0-7.0 NEUTROPHILS 92.2 MONOCYTES 0.9 EOSINOPHILS 1.7 ANISOCYTOSIS 1+ MACROCYTOSIS 1+ POLYCHROMASIA 1+ PAPPENHEIMER BODIES 0 LYMPHOCYTES 5.2 PLT EST-CV DECREASED ADEQUATE EO#-MDIFF 0.08 10*3/uL 0.00-0.60 MONO#-MDIFF 0.04 10*3/uL L 0.19-0.80 LYMPH#-MDIFF 0.24 10*3/uL L 0.77-4.50 NEUT#-MDIFF 4.24 10*3/uL 2.10-8.00 Aug 14, 2024 07:54 PM [facility] GLUCOSE,BLOOD-poct (L) BLOOD Specimen Type: BLOOD Comment: Test Performed by: [id number] Meter #: [id number] Ordering Provider: DEIRDRE WILD Report Released Date/Time: Aug 14, 2024 08:15 PM Reporting Lab: [address] [address] Performing Lab: [address] [address] GLUCOSE,BLOOD-poct (STL) 112 mg/dL H 72-99 Aug 14, 2024 04:10 PM [facility] GLUCOSE,BLOOD-poct (STL) BLOOD Specimen Type: BLOOD Comment: Test Performed by: [id number] Meter #: [id number] Ordering Provider: DEIRDRE WILD Report Released Date/Time: Aug 14, 2024 04:43 PM Reporting Lab: [address] [address] Performing Lab: [address] [address] GLUCOSE,BLOOD-poct (STL) 115 mg/dL H 72-99 Aug 14, 2024 02:05 PM [facility] COMPREHENSIVE METABOLIC PANEL PLASMA Specimen Type: PLASMA Comment: No hemolysis noted. Ordering Provider: GILSON OG Report Released Date/Time: Aug 14, 2024 06:56 AM Reporting Lab: [address] [address] Performing Lab: [address] [address] CREATININE 0.75 mg/dL 0.7-1.3 UREA NITROGEN 9.3 mg/dL 9.0-25.0 GLUCOSE 102 mg/dL H 72-99 SODIUM 135 meq/L L 136-145 POTASSIUM 4.3 meq/L 3.5-5 CHLORIDE 103 meq/L 98-107 CARBON DIOXIDE 23 meq/L 22-31 CALCIUM 8.6 mg/dL 8.4-10.4 PROTEIN 6.8 g/dL 6-8.6 ALBUMIN 3.3 g/dL L 3.4-5 TOTAL BILIRUBIN 0.5 mg/dL 0.2-1.2 ALKALINE PHOSPHATASE 96 U/L 40-150 AST/SGOT 29 U/L 5-34 ALT/SGPT 13 U/L 8-40 EGFR (CKD-EPI 2020) 98.9 >60 Aug 14, 2024 02:05 PM [facility] CBC BLOOD Specimen Type: BLOOD Comment: No platelet clots or clumping detected. Ordering Provider: GILSON OG Report Released Date/Time: Aug 10, 2024 04:01 PM Reporting Lab: [address] [address] Performing Lab: [address] [address] WBC 4.6 10*3/uL 3.6-11.2 RBC 3.06 10*6/uL L 4.10-5.70 HGB 9.5 g/dL L 13.1-16.8 HCT 29.9 L 38.2-48.4 MCV 97.7 fL 80.0-100.0 MCH 31.0 pg 27.0-34.0 MCHC 31.8 g/dL L 33.0-36.0 PLT 86 10*3/uL L 150-400 MPV 12.1 fL H 7.5-11.2 NEUTROPHILS 87.0 MONOCYTES 5.2 EOSINOPHILS 3.5 ANISOCYTOSIS 1+ MACROCYTOSIS 1+ POLYCHROMASIA 1+ RDW 15.1 11.8-15.1 PAPPENHEIMER BODIES 0 LYMPHOCYTES 4.3 LYMPHOCYTES, AUTO % 8 MONOCYTES, AUTO % 7 NEUTROPHILS, AUTO % 80 EOSINOPHILS, AUTO % 4 BASOPHILS, AUTO % 1 LYMPHOCYTES, ABSOLUTE 0.35 10*3/uL L 0.77- 4.50 MONOCYTES, ABSOLUTE 0.33 10*3/uL 0.19-0. 80 NEUTROPHILS, ABSOLUTE 3.67 10*3/uL 2.10- 8.00 EOSINOPHILS, ABSOLUTE 0.20 10*3/uL 0.00- 0.60 BASOPHILS, ABSOLUTE 0.03 10*3/uL 0.00-0. 20 IMMATURE PLT FRACTION 7.0 1.0-7.0 PLT EST-CV DECREASED ADEQUATE EO#-MDIFF 0.16 10*3/uL 0.00-0.60 MONO#-MDIFF 0.24 10*3/uL 0.19-0.80 LYMPH#-MDIFF 0.20 10*3/uL L 0.77-4.50 NEUT#-MDIFF 4.00 10*3/uL 2.10-8.00 Aug 14, 2024 10:12 AM [facility] GLUCOSE,BLOOD-poct (STL) BLOOD Specimen Type: BLOOD Comment: Test Performed by: [id number] Meter #: [id number] Ordering Provider: DEIRDRE WILD Report Released Date/Time: Aug 14, 2024 10:13 AM Reporting Lab: [facility] [address] [place] [address] Performing Lab: [address] [address] GLUCOSE,BLOOD-poct (STL) 112 mg/dL H 72-99 Aug 14, 2024 09:20 AM [facility] PT/INR NEW (STL-MA) PLASMA Specimen Type: PLAS MA No comment entered. Ordering Provider: GILSON OG Report Released Date/Time: Aug 14, 2024 09:06 AM Reporting Lab: [facility] [address] [place] [phone] Performing Lab: [place] [phone] PROTIME 13.6 s H 9.4-12.5 INR VALUE 1.2 {INR} Aug 14, 2024 06:51 AM [facility] CBC BLOOD Specimen Type: BLOOD No comment entered. Ordering Provider: CASH CLOUD Report Released Date/Time: Aug 12, 2024 01:47 PM Reporting Lab: [place] [phone] Performing Lab: [place] [address] [place] [phone] WBC 3.8 10*3/uL 3.6-11.2 RBC 2.56 10*6/uL L 4.10-5.70 HGB 8.1 g/dL L 13.1-16.8 HCT 24.0 L 38.2-48.4 MCV 93.8 fL 80.0-100.0 MCH 31.6 pg 27.0-34.0 MCHC 33.8 g/dL 33.0-36.0 PLT 81 10*3/uL L 150-400 MPV 11.3 fL H 7.5-11.2 RDW 14.9 11.8-15.1 IMMATURE PLT FRACTION 6.0 1.0-7.0 NEUTROPHILS 87.7 BAND NEUTROPHILS 0.9 MONOCYTES 1.8 EOSINOPHILS 2.6 ANISOCYTOSIS 1+ PAPPENHEIMER BODIES 0 LYMPHOCYTES 7.0 PLT EST-CV DECREASED ADEQUATE IG#-MDIFF 0.03 0.00-0.05 EO#-MDIFF 0.10 10*3/uL 0.00-0.60 MONO#-MDIFF 0.07 10*3/uL L 0.19-0.80 LYMPH#-MDIFF 0.27 10*3/uL L 0.77-4.50 NEUT#-MDIFF 3.33 10*3/uL 2.10-8.00 Aug 14, 2024 06:03 AM [facility] GLUCOSE,BLOOD-poct (STL) BLOOD Specimen Type: BLOOD Comment: Test Performed by: [id number] Meter #: [id number] Ordering Provider: DEIRDRE WILD Report Released Date/Time: Aug 14, 2024 06:07 AM Reporting Lab: [address] [address] Performing Lab: [address] [address] GLUCOSE,BLOOD-poct (STL) 114 mg/dL H 72-99 Aug 13, 2024 09:11 PM [facility] GLUCOSE,BLOOD-poct (STL) BLOOD Specimen Type: BLOOD Comment: Test Performed by: [id number] Meter #: [id number] Ordering Provider: DEIRDRE WILD Report Released Date/Time: Aug 13, 2024 09:40 PM Reporting Lab: [address] [address] Performing Lab: [address] [address] GLUCOSE,BLOOD-poct (STL) 160 mg/dL H 72-99 Aug 13, 2024 07:10 PM [facility] COMPREHENSIVE METABOLIC PANEL PLASMA Specimen Type: PLASMA Comment: No hemolysis noted. Ordering Provider: GILSON OG Report Released Date/Time: Aug 14, 2024 07:03 AM Reporting Lab: [address] [address] Performing Lab: [address] [address] CREATININE 0.75 mg/dL 0.7-1.3 UREA NITROGEN 10.3 mg/dL 9.0-25.0 GLUCOSE 124 mg/dL H 72-99 SODIUM 132 meq/L L 136-145 POTASSIUM 4.2 meq/L 3.5-5 CHLORIDE 102 meq/L 98-107 CARBON DIOXIDE 21 meq/L L 22-31 CALCIUM 8.3 mg/dL L 8.4-10.4 PROTEIN 6.3 g/dL 6-8.6 ALBUMIN 3.1 g/dL L 3.4-5 TOTAL BILIRUBIN 0.4 mg/dL 0.2-1.2 ALKALINE PHOSPHATASE 91 U/L 40-150 AST/SGOT 30 U/L 5-34 ALT/SGPT 13 U/L 8-40 EGFR (CKD-EPI 2020) 98.9 >60 Aug 13, 2024 07:10 PM [facility] CRP PLASMA Specimen Type: PLASM A No comment entered. Ordering Provider: CASH CLOUD Report Released Date/Time: Aug 12, 2024 10:14 AM Reporting Lab: [address] [address] Performing Lab: [address] [address] CRP 0.7 mg/dL H 0-0.5 Aug 13, 2024 07:10 PM [facility] CBC BLOOD Specimen Type: BLOOD No comment entered. Ordering Provider: GILSON OG Report Released Date/Time: Aug 10, 2024 04:01 PM Reporting Lab: [address] [address] Performing Lab: [address] [address] WBC 5.3 10*3/uL 3.6-11.2 RBC 2.67 10*6/uL L 4.10-5.70 HGB 8.3 g/dL L 13.1-16.8 HCT 25.2 L 38.2-48.4 MCV 94.4 fL 80.0-100.0 MCH 31.1 pg 27.0-34.0 MCHC 32.9 g/dL L 33.0-36.0 PLT 101 10*3/uL L 150-400 MPV 11.7 fL H 7.5-11.2 RDW 15.0 11.8-15.1 IMMATURE PLT FRACTION 7.9 H 1.0-7.0 NEUTROPHILS 87.5 MONOCYTES 2.7 EOSINOPHILS 7.1 BASOPHILS 0.9 ANISOCYTOSIS 1+ PAPPENHEIMER BODIES 0 LYMPHOCYTES 1.8 PLT EST-CV DECREASED ADEQUATE BASO#-MDIFF 0.05 10*3/uL 0.01-0.20 EO#-MDIFF 0.38 10*3/uL 0.00-0.60 MONO#-MDIFF 0.14 10*3/uL L 0.19-0.80 LYMPH#-MDIFF 0.10 10*3/uL L 0.77-4.50 NEUT#-MDIFF 4.64 10*3/uL 2.10-8.00 Aug 13, 2024 04:35 PM [facility] GLUCOSE,BLOOD-poct (STL) BLOOD Specimen Type: BLOOD Comment: Test Performed by: [id number] Meter #: [id number] Ordering Provider: DEIRDRE WILD Report Released Date/Time: Aug 13, 2024 05:18 PM Reporting Lab: [address] [address] Performing Lab: [address] [address] GLUCOSE,BLOOD-poct (STL) 113 mg/dL H 72-99 Aug 13, 2024 02:36 PM [facility] CBC BLOOD Specimen Type: BLOOD No comment entered. Ordering Provider: GILSON OG Report Released Date/Time: Aug 10, 2024 04:01 PM Reporting Lab: [address] [address] Performing Lab: [address] [address] WBC 5.8 10*3/uL 3.6-11.2 RBC 2.77 10*6/uL L 4.10-5.70 HGB 8.7 g/dL L 13.1-16.8 HCT 26.7 L 38.2-48.4 MCV 96.4 fL 80.0-100.0 MCH 31.4 pg 27.0-34.0 MCHC 32.6 g/dL L 33.0-36.0 PLT 120 10*3/uL L 150-400 MPV 11.8 fL H 7.5-11.2 RDW 15.2 H 11.8-15.1 NEUTROPHILS 85.7 MONOCYTES 1.1 EOSINOPHILS 6.6 BASOPHILS 1.1 ANISOCYTOSIS 1+ MACROCYTOSIS 1+ POLYCHROMASIA 1+ PAPPENHEIMER BODIES 0 LYMPHOCYTES 5.5 PLT EST-CV ADEQUATE ADEQUATE BASO#-MDIFF 0.06 10*3/uL 0.01-0.20 EO#-MDIFF 0.38 10*3/uL 0.00-0.60 MONO#-MDIFF 0.06 10*3/uL L 0.19-0.80 LYMPH#-MDIFF 0.32 10*3/uL L 0.77-4.50 NEUT#-MDIFF 4.97 10*3/uL 2.10-8.00 Aug 13, 2024 11:37 AM [facility] GLUCOSE,BLOOD-poct (STL) BLOOD Specimen Type: BLOOD Comment: Test Performed by: [id number] Meter #: [id number] Ordering Provider: DEIRDRE WILD Report Released Date/Time: Aug 13, 2024 11:38 AM Reporting Lab: [address] [address] Performing Lab: [address] [address] GLUCOSE,BLOOD-poct (STL) 131 mg/dL H 72-99 Aug 13, 2024 08:06 AM [facility] CBC BLOOD Specimen Type: BLOOD Comment: no clot Ordering Provider: CASH CLOUD Report Released Date/Time: Aug 12, 2024 01:47 PM Reporting Lab: [address] [address] Performing Lab: [address] [address] WBC 3.0 10*3/uL L 3.6-11.2 RBC 2.61 10*6/uL L 4.10-5.70 HGB 8.1 g/dL L 13.1-16.8 HCT 24.8 L 38.2-48.4 MCV 95.0 fL 80.0-100.0 MCH 31.0 pg 27.0-34.0 MCHC 32.7 g/dL L 33.0-36.0 PLT 75 10*3/uL L 150-400 MPV 11.6 fL H 7.5-11.2 RDW 15.1 11.8-15.1 IMMATURE PLT FRACTION 5.8 1.0-7.0 NEUTROPHILS 83.5 MONOCYTES 4.6 EOSINOPHILS 1.8 BASOPHILS 1.8 ANISOCYTOSIS 1+ PAPPENHEIMER BODIES 0 LYMPHOCYTES 8.3 PLT EST-CV DECREASED ADEQUATE BASO#-MDIFF 0.05 10*3/uL 0.01-0.20 EO#-MDIFF 0.05 10*3/uL 0.00-0.60 MONO#-MDIFF 0.14 10*3/uL L 0.19-0.80 LYMPH#-MDIFF 0.25 10*3/uL L 0.77-4.50 NEUT#-MDIFF 2.51 10*3/uL 2.10-8.00 Aug 13, 2024 04:45 AM [facility] GLUCOSE,BLOOD-poct (STL) BLOOD Specimen Type: BLOOD Comment: Test Performed by: [id number] Meter #: [id number] Ordering Provider: DEIRDRE WILD Report Released Date/Time: Aug 13, 2024 06:18 AM Reporting Lab: [place] [id number] Performing Lab: [address] [address] GLUCOSE,BLOOD-poct (STL) 139 mg/dL H 72-99 Aug 12, 2024 10:10 PM [facility] GLUCOSE,BLOOD-poct (STL) BLOOD Specimen Type: BLOOD Comment: Test Performed by: [id number] Meter #: [id number] Ordering Provider: DEIRDRE WILD Report Released Date/Time: Aug 12, 2024 10:50 PM Reporting Lab: [address] [address] Performing Lab: [address] [address] GLUCOSE,BLOOD-poct (STL) 105 mg/dL H 72-99 Aug 12, 2024 08:48 PM [facility] CRP PLASMA Specimen Type: PLASM A No comment entered. Ordering Provider: CASH CLOUD Report Released Date/Time: Aug 12, 2024 10:14 AM Reporting Lab: [place] [address] [facility] [address] Performing Lab: [address] [address] CRP 0.6 mg/dL H 0-0.5 Aug 12, 2024 08:48 PM [facility] CBC BLOOD Specimen Type: BLOOD Comment: SEE PREVIOUS DIFFERENTIAL ON 08/12/24 @ 1804 Ordering Provider: GILSON OG Report Released Date/Time: Aug 10, 2024 04:01 PM Reporting Lab: [place] [address] [facility] [address] Performing Lab: [address] [address] WBC 5.0 10*3/uL 3.6-11.2 RBC 2.78 10*6/uL L 4.10-5.70 HGB 8.6 g/dL L 13.1-16.8 HCT 27.2 L 38.2-48.4 MCV 97.8 fL 80.0-100.0 MCH 30.9 pg 27.0-34.0 MCHC 31.6 g/dL L 33.0-36.0 PLT 110 10*3/uL L 150-400 MPV 11.8 fL H 7.5-11.2 RDW 15.5 H 11.8-15.1 LYMPHOCYTES, AUTO % 10 MONOCYTES, AUTO % 12 NEUTROPHILS, AUTO % 71 EOSINOPHILS, AUTO % 6 BASOPHILS, AUTO % 1 LYMPHOCYTES, ABSOLUTE 0.48 10*3/uL L 0.77- 4.50 MONOCYTES, ABSOLUTE 0.61 10*3/uL 0.19-0. 80 NEUTROPHILS, ABSOLUTE 3.54 10*3/uL 2.10- 8.00 EOSINOPHILS, ABSOLUTE 0.31 10*3/uL 0.00- 0.60 BASOPHILS, ABSOLUTE 0.05 10*3/uL 0.00-0. 20 IMMATURE PLT FRACTION 6.5 1.0-7.0 Aug 12, 2024 04:51 PM [facility] GLUCOSE,BLOOD-poct (STL) BLOOD Specimen Type: BLOOD Comment: Test Performed by: [id number] Meter #: [id number] Ordering Provider: DEIRDRE WILD Report Released Date/Time: Aug 12, 2024 05:07 PM Reporting Lab: [address] [address] Performing Lab: [address] [address] GLUCOSE,BLOOD-poct (STL) 135 mg/dL H 72-99 Aug 12, 2024 02:33 PM [facility] CBC BLOOD Specimen Type: BLOOD No comment entered. Ordering Provider: GILSON OG Report Released Date/Time: Aug 10, 2024 04:01 PM Reporting Lab: [address] [address] Performing Lab: [address] [address] WBC 4.0 10*3/uL 3.6-11.2 RBC 2.56 10*6/uL L 4.10-5.70 HGB 8.0 g/dL L 13.1-16.8 HCT 24.7 L 38.2-48.4 MCV 96.5 fL 80.0-100.0 MCH 31.3 pg 27.0-34.0 MCHC 32.4 g/dL L 33.0-36.0 PLT 92 10*3/uL L 150-400 MPV 11.8 fL H 7.5-11.2 RDW 15.7 H 11.8-15.1 IMMATURE PLT FRACTION 8.0 H 1.0-7.0 NEUTROPHILS 86.0 MONOCYTES 4.4 EOSINOPHILS 4.4 ANISOCYTOSIS 1+ MACROCYTOSIS 1+ POLYCHROMASIA 1+ PAPPENHEIMER BODIES 0 LYMPHOCYTES 5.2 PLT EST-CV DECREASED ADEQUATE EO#-MDIFF 0.18 10*3/uL 0.00-0.60 MONO#-MDIFF 0.18 10*3/uL L 0.19-0.80 LYMPH#-MDIFF 0.21 10*3/uL L 0.77-4.50 NEUT#-MDIFF 3.44 10*3/uL 2.10-8.00 Aug 12, 2024 11:51 AM [facility] GLUCOSE,BLOOD-poct (STL) BLOOD Specimen Type: BLOOD Comment: Test Performed by: [id number] Meter #: [id number] Ordering Provider: DEIRDRE WILD Report Released Date/Time: Aug 12, 2024 12:26 PM Reporting Lab: [address] [address] Performing Lab: [address] [address] GLUCOSE,BLOOD-poct (STL) 139 mg/dL H 72-99 Aug 12, 2024 07:35 AM [facility] CBC BLOOD Specimen Type: BLOOD Comment: prev diff 08/11/24. Ordering Provider: GILSON OG Report Released Date/Time: Aug 10, 2024 04:01 PM Reporting Lab: [address] [address] Performing Lab: [address] [address] WBC 3.0 10*3/uL L 3.6-11.2 RBC 2.54 10*6/uL L 4.10-5.70 HGB 8.0 g/dL L 13.1-16.8 HCT 24.8 L 38.2-48.4 MCV 97.6 fL 80.0-100.0 MCH 31.5 pg 27.0-34.0 MCHC 32.3 g/dL L 33.0-36.0 PLT 75 10*3/uL L 150-400 MPV 11.4 fL H 7.5-11.2 RDW 15.6 H 11.8-15.1 IMMATURE PLT FRACTION 6.0 1.0-7.0 LYMPHOCYTES, AUTO % 10 MONOCYTES, AUTO % 11 NEUTROPHILS, AUTO % 73 EOSINOPHILS, AUTO % 5 BASOPHILS, AUTO % 1 LYMPHOCYTES, ABSOLUTE 0.30 10*3/uL L 0.77- 4.50 MONOCYTES, ABSOLUTE 0.32 10*3/uL 0.19-0. 80 NEUTROPHILS, ABSOLUTE 2.22 10*3/uL 2.10- 8.00 EOSINOPHILS, ABSOLUTE 0.16 10*3/uL 0.00- 0.60 BASOPHILS, ABSOLUTE 0.03 10*3/uL 0.00-0. 20 Aug 12, 2024 05:49 AM [facility] GLUCOSE,BLOOD-poct (STL) BLOOD Specimen Type: BLOOD Comment: Test Performed by: [id number] Meter #: [id number] Ordering Provider: DEIRDRE WILD Report Released Date/Time: Aug 12, 2024 05:50 AM Reporting Lab: [address] [address] Performing Lab: [address] [address] GLUCOSE,BLOOD-poct (STL) 112 mg/dL H 72-99 Aug 12, 2024 01:45 AM [facility] CBC BLOOD Specimen Type: BLOOD Comment: SEE PREVIOUS DIFFERENTIAL ON 08/12/24 @ 0239 [facility] Ordering Provider: GILSON OG Report Released Date/Time: Aug 10, 2024 04:01 PM Reporting Lab: [address] [address] Performing Lab: [address] [address] WBC 2.6 10*3/uL L 3.6-11.2 RBC 2.42 10*6/uL L 4.10-5.70 HGB 7.6 g/dL L 13.1-16.8 HCT 23.2 L 38.2-48.4 MCV 95.9 fL 80.0-100.0 MCH 31.4 pg 27.0-34.0 MCHC 32.8 g/dL L 33.0-36.0 PLT 69 10*3/uL L 150-400 MPV 11.9 fL H 7.5-11.2 RDW 15.6 H 11.8-15.1 LYMPHOCYTES, AUTO % 16 MONOCYTES, AUTO % 13 NEUTROPHILS, AUTO % 65 EOSINOPHILS, AUTO % 6 BASOPHILS, AUTO % 1 LYMPHOCYTES, ABSOLUTE 0.41 10*3/uL L 0.77- 4.50 MONOCYTES, ABSOLUTE 0.33 10*3/uL 0.19-0. 80 NEUTROPHILS, ABSOLUTE 1.69 10*3/uL L 2.10- 8.00 EOSINOPHILS, ABSOLUTE 0.15 10*3/uL 0.00- 0.60 BASOPHILS, ABSOLUTE 0.02 10*3/uL 0.00-0. 20 IMMATURE PLT FRACTION 6.4 1.0-7.0 Aug 11, 2024 09:25 PM [facility] CBC BLOOD Specimen Type: BLOOD No comment entered. Ordering Provider: GILSON OG Report Released Date/Time: Aug 10, 2024 04:01 PM Reporting Lab: [place] [address] [facility] [address] Performing Lab: [address] [address] WBC 3.6 10*3/uL 3.6-11.2 RBC 2.54 10*6/uL L 4.10-5.70 HGB 7.9 g/dL L 13.1-16.8 HCT 24.6 L 38.2-48.4 MCV 96.9 fL 80.0-100.0 MCH 31.1 pg 27.0-34.0 MCHC 32.1 g/dL L 33.0-36.0 PLT 79 10*3/uL L 150-400 MPV 12.1 fL H 7.5-11.2 RDW 15.6 H 11.8-15.1 IMMATURE PLT FRACTION 6.8 1.0-7.0 NEUTROPHILS 80.2 MONOCYTES 5.4 BASOPHILS 2.7 ANISOCYTOSIS 1+ PAPPENHEIMER BODIES 0 LYMPHOCYTES 11.7 PLT EST-CV DECREASED ADEQUATE BASO#-MDIFF 0.10 10*3/uL 0.01-0.20 MONO#-MDIFF 0.19 10*3/uL 0.19-0.80 LYMPH#-MDIFF 0.42 10*3/uL L 0.77-4.50 NEUT#-MDIFF 2.89 10*3/uL 2.10-8.00 Aug 11, 2024 09:17 PM [facility] GLUCOSE,BLOOD-poct (STL) BLOOD Specimen Type: BLOOD Comment: Test Performed by: [id number] Meter #: [id number] Ordering Provider: DEIRRDE WILD Report Released Date/Time: Aug 11, 2024 09:21 PM Reporting Lab: [place] [address] Performing Lab: [place] [address] GLUCOSE,BLOOD-poct (L) 167 mg/dL H 72-9 9 Aug 11, 2024 04:42 PM [facility] CBC BLOOD Specimen Type: BLOOD No comment entered. Ordering Provider: YVONNE HARRISON Report Released Date/Time: Aug 11, 2024 04:41 PM Reporting Lab: [place] [address] Performing Lab: [place] [phone] WBC 4.0 10*3/uL 3.6-11.2 RBC 2.74 10*6/uL L 4.10-5.70 HGB 8.7 g/dL L 13.1-16.8 HCT 26.7 L 38.2-48.4 MCV 97.4 fL 80.0-100.0 MCH 31.8 pg 27.0-34.0 MCHC 32.6 g/dL L 33.0-36.0 PLT 79 10*3/uL L 150-400 MPV 11.8 fL H 7.5-11.2 RDW 15.9 H 11.8-15.1 IMMATURE PLT FRACTION 6.7 1.0-7.0 NEUTROPHILS 89.8 MONOCYTES 4.7 EOSINOPHILS 0.9 BASOPHILS 0.9 ANISOCYTOSIS 1+ POLYCHROMASIA 1+ PAPPENHEIMER BODIES 0 LYMPHOCYTES 3.7 PLT EST-CV DECREASED ADEQUATE BASO#-MDIFF 0.04 10*3/uL 0.01-0.20 EO#-MDIFF 0.04 10*3/uL 0.00-0.60 MONO#-MDIFF 0.19 10*3/uL L 0.19-0.80 LYMPH#-MDIFF 0.15 10*3/uL L 0.77-4.50 NEUT#-MDIFF 3.59 10*3/uL 2.10-8.00 Aug 11, 2024 04:30 PM [facility] GLUCOSE,BLOOD-poct (STL) BLOOD Specimen Type: BLOOD Comment: Test Performed by: [id number] Meter #: [id number] Ordering Provider: DEIRDRE WILD Report Released Date/Time: Aug 11, 2024 06:06 PM Reporting Lab: [address] [address] Performing Lab: [address] [address] GLUCOSE,BLOOD-poct (STL) 95 mg/dL 72-99 Aug 11, 2024 11:08 AM [facility] GLUCOSE,BLOOD-poct (STL) BLOOD Specimen Type: BLOOD Comment: Test Performed by: [id number] Meter #: [id number] Ordering Provider: DEIRDRE WILD Report Released Date/Time: Aug 11, 2024 11:10 AM Reporting Lab: [address] [address] Performing Lab: [address] [address] GLUCOSE,BLOOD-poct (STL) 117 mg/dL H 72-99 Aug 11, 2024 06:00 AM [facility] IRON/TIBC PROFILE SERUM Specimen Type: SERUM No comment entered. Ordering Provider: GILSON OG Report Released Date/Time: Aug 10, 2024 04:02 PM Reporting Lab: [address] [address] Performing Lab: [address] [address] TIBC 263 ug/dL 250-450 TRANSFERRIN 210 mg/dL 163-344 IRON SATURATION 8 L 20-50 IRON 21 ug/dL L 65-175 Aug 11, 2024 06:00 AM [facility] APTT PLASMA Specimen Type: PLASM A No comment entered. Ordering Provider: GILSON OG Report Released Date/Time: Aug 10, 2024 06:20 PM Reporting Lab: [place] [address] [facility] [address] Performing Lab: [address] [address] APTT 25.5 s L 26.7-39.9 Aug 11, 2024 06:00 AM [facility] PT/INR NEW (STL-MA) PLASMA Specimen Type: PLAS MA No comment entered. Ordering Provider: GILSON OG Report Released Date/Time: Aug 10, 2024 06:20 PM Reporting Lab: [address] [address] Performing Lab: [address] [address] PROTIME 15.5 s H 9.4-12.5 INR VALUE 1.4 {INR} Aug 11, 2024 06:00 AM [facility] HEPATIC FUNTION PANEL (STL) PLASMA Specimen Ty pe: PLASMA No comment entered. Ordering Provider: GILSON OG Report Released Date/Time: Aug 10, 2024 04:02 PM Reporting Lab: [place] [address] [facility] [address] Performing Lab: [place] [address] [facility] [address] PROTEIN 5.4 g/dL L 6-8.6 ALBUMIN 2.6 g/dL L 3.4-5 TOTAL BILIRUBIN 0.8 mg/dL 0.2-1.2 ALKALINE PHOSPHATASE 72 U/L 40-150 AST/SGOT 28 U/L 5-34 ALT/SGPT 10 U/L 8-40 CONJ. BILIRUBIN 0.4 mg/dL 0-0.5 Aug 11, 2024 06:00 AM [facility] CBC BLOOD Specimen Type: BLOOD No comment entered. Ordering Provider: GILSON OG Report Released Date/Time: Aug 10, 2024 04:01 PM Reporting Lab: [place] [address] [facility] [address] Performing Lab: [facility] [address] [facility] [address] WBC 2.4 10*3/uL L 3.6-11.2 RBC 2.42 10*6/uL L 4.10-5.70 HGB 7.5 g/dL L 13.1-16.8 HCT 23.3 L 38.2-48.4 MCV 96.3 fL 80.0-100.0 MCH 31.0 pg 27.0-34.0 MCHC 32.2 g/dL L 33.0-36.0 PLT 63 10*3/uL L 150-400 MPV 11.3 fL H 7.5-11.2 RDW 15.4 H 11.8-15.1 IMMATURE PLT FRACTION 5.0 1.0-7.0 NEUTROPHILS 78.6 MONOCYTES 5.3 BASOPHILS 1.8 ANISOCYTOSIS 1+ POIKILOCYTOSIS 1+ POLYCHROMASIA 1+ PAPPENHEIMER BODIES 0 LYMPHOCYTES 14.3 STOMATOCYTES 1+ PLT EST-CV ADEQUATE ADEQUATE BASO#-MDIFF 0.04 10*3/uL 0.01-0.20 MONO#-MDIFF 0.13 10*3/uL L 0.19-0.80 LYMPH#-MDIFF 0.34 10*3/uL L 0.77-4.50 NEUT#-MDIFF 1.89 10*3/uL L 2.10-8.00 Aug 10, 2024 09:00 PM [facility] BASIC METABOLIC PANEL PLASMA Specimen Type: PL ASMA Comment: No hemolysis noted. Ordering Provider: GILSON OG Report Released Date/Time: Aug 10, 2024 04:01 PM Reporting Lab: [facility] [address] [facility] [address] Performing Lab: [address] [address] CREATININE 0.84 mg/dL 0.7-1.3 UREA NITROGEN 16.8 mg/dL 9.0-25.0 GLUCOSE 104 mg/dL H 72-99 SODIUM 133 meq/L L 136-145 POTASSIUM 3.5 meq/L 3.5-5 CHLORIDE 103 meq/L 98-107 CARBON DIOXIDE 23 meq/L 22-31 CALCIUM 8.4 mg/dL 8.4-10.4 EGFR (CKD-EPI 2020) 95.6 >60 Aug 10, 2024 09:00 PM [facility] CBC BLOOD Specimen Type: BLOOD No comment entered. Ordering Provider: GILSON OG Report Released Date/Time: Aug 10, 2024 04:01 PM Reporting Lab: [place] [address] [facility] [address] Performing Lab: [address] [address] WBC 4.3 10*3/uL 3.6-11.2 RBC 2.22 10*6/uL L 4.10-5.70 HGB 7.1 g/dL L 13.1-16.8 HCT 21.5 L 38.2-48.4 MCV 96.8 fL 80.0-100.0 MCH 32.0 pg 27.0-34.0 MCHC 33.0 g/dL 33.0-36.0 PLT 84 10*3/uL L 150-400 MPV 11.5 fL H 7.5-11.2 RDW 15.4 H 11.8-15.1 IMMATURE PLT FRACTION 6.5 1.0-7.0 NRBC% 0 NEUTROPHILS 90.2 MONOCYTES 2.7 EOSINOPHILS 0.9 BASOPHILS 0.9 ANISOCYTOSIS 1+ POIKILOCYTOSIS 1+ PAPPENHEIMER BODIES 0 LYMPHOCYTES 3.5 ATYPICAL LYMPHOCYTES 1.8 STOMATOCYTES 1+ PLT EST-CV ADEQUATE ADEQUATE BASO#-MDIFF 0.04 10*3/uL 0.01-0.20 EO#-MDIFF 0.04 10*3/uL 0.00-0.60 MONO#-MDIFF 0.12 10*3/uL L 0.19-0.80 LYMPH#-MDIFF 0.23 10*3/uL L 0.77-4.50 NEUT#-MDIFF 3.88 10*3/uL 2.10-8.00 Aug 10, 2024 06:30 PM [facility] MRSA SURVL NARES DNA NARES Specimen Type: DASH ES Comment: Qualitative real-time PCR test for the rapid detection of methicillin-resistant Staphylococcus aureus (MRSA) DNA from nasal swabs. A negative result does not preclude infection with the agent(s) tested and should not be used as the sole basis for treatment or other patient management decisions. A positive test does not necessarily indicate the presence of viable organisms, following bacterial culture to recover the organism for further characterization and susceptibility testing. All results must be combined with clinical observations, patient history, and epidemiological information for final interpretation. Ordering Provider: GILSON OG Report Released Date/Time: Aug 10, 2024 04:01 PM Reporting Lab: [facility] [address] [place] [address] Performing Lab: [address] [address] MRSA SURVL NARES DNA Negative Negative Aug 10, 2024 06:02 PM [facility] GLUCOSE,BLOOD-poct (STL) BLOOD Specimen Type: BLOOD Comment: Test Performed by: [id number] Meter #: [id number] Ordering Provider: YASIR SANZ MD Report Released Date/Time: Aug 10, 2024 06:04 PM Reporting Lab: [place] [address] [facility] [address] Performing Lab: [address] [address] GLUCOSE,BLOOD-poct (STL) 94 mg/dL 72-99 Aug 10, 2024 02:12 PM [facility] APTT PLASMA Specimen Type: PLASM A No comment entered. Ordering Provider: YASIR SANZ MD Report Released Date/Time: Aug 10, 2024 02:00 PM Reporting Lab: [place] [address] [facility] [address] Performing Lab: [address] [address] APTT 20.1 s L 26.7-39.9 Aug 10, 2024 02:12 PM [facility] PT/INR NEW (STL-MA) PLASMA Specimen Type: PLAS MA No comment entered. Ordering Provider: YASIR SANZ MD Report Released Date/Time: Aug 10, 2024 02:00 PM Reporting Lab: [address] [address] Performing Lab: [address] [address] PROTIME 13.8 s H 9.4-12.5 INR VALUE 1.2 {INR} Aug 10, 2024 11:30 AM [facility] TSH W/ REFLEX FT4 (STL) PLASMA Specimen Type: PLASMA No comment entered. Ordering Provider: TONY SIMMONS Report Released Date/Time: Aug 02, 2024 12:33 PM Reporting Lab: [address] [address] Performing Lab: [address] [address] TSH 3.991 u[IU]/mL 0.47-5 Aug 10, 2024 11:30 AM [facility] COMPREHENSIVE METABOLIC PANEL PLASMA Specimen Type: PLASMA Comment: No hemolysis noted. Ordering Provider: TONY SIMMONS Report Released Date/Time: Aug 02, 2024 12:33 PM Reporting Lab: [address] [address] Performing Lab: [address] [address] CREATININE 0.82 mg/dL 0.7-1.3 UREA NITROGEN 21.7 mg/dL 9.0-25.0 GLUCOSE 112 mg/dL H 72-99 SODIUM 134 meq/L L 136-145 POTASSIUM 4.0 meq/L 3.5-5 CHLORIDE 101 meq/L 98-107 CARBON DIOXIDE 24 meq/L 22-31 CALCIUM 8.9 mg/dL 8.4-10.4 PROTEIN 6.9 g/dL 6-8.6 ALBUMIN 3.4 g/dL 3.4-5 TOTAL BILIRUBIN 1.1 mg/dL 0.2-1.2 ALKALINE PHOSPHATASE 92 U/L 40-150 AST/SGOT 29 U/L 5-34 ALT/SGPT 11 U/L 8-40 EGFR (CKD-EPI 2021) 96.3 >60 Aug 10, 2024 11:30 AM [facility] CBC BLOOD Specimen Type: BLOOD No comment entered. Ordering Provider: TONY SIMMONS Report Released Date/Time: Aug 02, 2024 12:33 PM Reporting Lab: [facility] [address] [facility] [address] Performing Lab: [address] [address] WBC 7.4 10*3/uL 3.6-11.2 RBC 2.81 10*6/uL L 4.10-5.70 HGB 8.8 g/dL L 13.1-16.8 HCT 27.5 L 38.2-48.4 MCV 97.9 fL 80.0-100.0 MCH 31.3 pg 27.0-34.0 MCHC 32.0 g/dL L 33.0-36.0 PLT 152 10*3/uL 150-400 MPV 11.5 fL H 7.5-11.2 RDW 15.3 H 11.8-15.1 LYMPHOCYTES, AUTO % 10 MONOCYTES, AUTO % 10 NEUTROPHILS, AUTO % 79 EOSINOPHILS, AUTO % 1 BASOPHILS, AUTO % 1 LYMPHOCYTES, ABSOLUTE 0.71 10*3/uL L 0.77- 4.50 MONOCYTES, ABSOLUTE 0.76 10*3/uL 0.19-0. 80 NEUTROPHILS, ABSOLUTE 5.79 10*3/uL 2.10- 8.00 EOSINOPHILS, ABSOLUTE 0.05 10*3/uL 0.00- 0.60 BASOPHILS, ABSOLUTE 0.04 10*3/uL 0.00-0. 20 Aug 02, 2024 11:53 AM [facility] PROTEIN ELECTROPHORESIS BLOOD SERUM Specimen Type: SERUM Comment: Reference Range: None Detected NOTE: THIS RESULT IS FLAGGED ABNORMAL Evaluation reveals a restricted band (M-spike) migrating in the gamma globulin region. If not already requested, Immunofixation should be considered. Test Performed by [facility], [facility], [address] [place] [address] Tristin Iyer M.D., Ph.D., Director of Laboratories , CLIA [id number] PREVIOUS SUGAR: IgG [place] Ordering Provider: TONY SIMMONS Report Released Date/Time: Jul 13, 2024 01:49 PM Reporting Lab: [address] [address] Performing Lab: [facility] [id number] [place] [address] ALPHA-1 GLOBULIN(SO-PB-STL) 0.4 g/dL H 0.2 -0.3 ALPHA-2 GLOBULIN(SO-PB-STL) 0.8 g/dL 0.5 -0.9 BETA 1 GLOBULIN(SO-PB-STL) 0.5 g/dL 0.4- 0.6 GAMMA GLOBULIN (SO-PB-STL) 1.8 g/dL H 0.8- 1.7 TOTAL PROTEIN (SO-PB-STL) 7.2 g/dL 6.1-8 .1 ALBUMIN(ELECTROPHORESIS 3.5 g/dL L 3.8-4.8 BETA 2 GLOBULIN (SO-PB) 0.3 g/dL 0.2-0.5 INTERPRETATION (STL-PB) SEE NOTE H ABNORMAL PROTEIN BAND 1 (SO-PB-STL) 1.0 g/dL H Aug 02, 2024 11:53 AM [facility] IGG (STL) PLASMA Specimen Type: PLASM A Comment: No hemolysis noted. Ordering Provider: TONY SIMMONS Report Released Date/Time: Jul 13, 2024 01:49 PM Reporting Lab: [address] [address] Performing Lab: [address] [address] IGG (STL) 1898 mg/dL H 540-1822 Aug 02, 2024 11:53 AM [facility] IGA (STL) PLASMA Specimen Type: PLASM A Comment: No hemolysis noted. Ordering Provider: TONY SIMMONS Report Released Date/Time: Jul 13, 2024 01:49 PM Reporting Lab: [address] [address] Performing Lab: [facility] [address] [facility] [address] IGA (STL) 113 mg/dL 63-484 Aug 02, 2024 11:53 AM [facility] IGM (STL) PLASMA Specimen Type: PLASM A Comment: No hemolysis noted. Ordering Provider: TONY SIMMONS Report Released Date/Time: Jul 13, 2024 01:49 PM Reporting Lab: [place] [address] [facility] [address] Performing Lab: [place] [address] [facility] [address] IGM (STL) 104 mg/dL 22-240 Aug 02, 2024 11:53 AM [facility] TSH W/ REFLEX FT4 (STL) PLASMA Specimen Type: PLASMA No comment entered. Ordering Provider: TONY SIMMONS Report Released Date/Time: Jul 13, 2024 01:49 PM Reporting Lab: [place] [address] [facility] [address] Performing Lab: [place] [address] [facility] [address] TSH 2.182 u[IU]/mL 0.47-5 Aug 02, 2024 11:53 AM [facility] KAPPA/LAMBDA FREE LC PANEL (STL-PB) SERUM Spe cimen Type: SERUM No comment entered. Ordering Provider: TONY SIMMONS Report Released Date/Time: Jul 13, 2024 01:49 PM Reporting Lab: [place] [address] [facility] [address] Performing Lab: [place] [address] [facility] [address] KAPPA FREE LC (STL) 102.7 mg/L H 2.4-20.7 LAMBDA FREE LC (STL) 32.2 mg/L H 4.2-27.7 KAPPA/LAMBDA RATIO (STL) 3.19 H 0.22-1. 74 Aug 02, 2024 11:53 AM [facility] COMPREHENSIVE METABOLIC PANEL PLASMA Specimen Type: PLASMA Comment: No hemolysis noted. Ordering Provider: TONY SIMMONS Report Released Date/Time: Jul 13, 2024 01:49 PM Reporting Lab: [address] [address] Performing Lab: [address] [address] CREATININE 0.82 mg/dL 0.7-1.3 UREA NITROGEN 12.2 mg/dL 9.0-25.0 GLUCOSE 100 mg/dL H 72-99 SODIUM 138 meq/L 136-145 POTASSIUM 4.1 meq/L 3.5-5 CHLORIDE 103 meq/L 98-107 CARBON DIOXIDE 26 meq/L 22-31 CALCIUM 9.1 mg/dL 8.4-10.4 PROTEIN 7.5 g/dL 6-8.6 ALBUMIN 3.6 g/dL 3.4-5 TOTAL BILIRUBIN 0.9 mg/dL 0.2-1.2 ALKALINE PHOSPHATASE 118 U/L 40-150 AST/SGOT 32 U/L 5-34 ALT/SGPT 16 U/L 8-40 EGFR (CKD-EPI 2020) 96.3 >60 Aug 02, 2024 11:53 AM [facility] CBC BLOOD Specimen Type: BLOOD Comment: No Clots in specimen Ordering Provider: TONY SIMMONS Report Released Date/Time: Jul 13, 2024 01:49 PM Reporting Lab: [address] [address] Performing Lab: [address] [address] WBC 2.2 10*3/uL L 3.6-11.2 RBC 3.44 10*6/uL L 4.10-5.70 HGB 11.0 g/dL L 13.1-16.8 HCT 34.7 L 38.2-48.4 MCV 100.9 fL H 80.0-100.0 MCH 32.0 pg 27.0-34.0 MCHC 31.7 g/dL L 33.0-36.0 PLT 89 10*3/uL L 150-400 MPV 11.3 fL H 7.5-11.2 RDW 15.7 H 11.8-15.1 IMMATURE PLT FRACTION 5.5 1.0-7.0 NEUTROPHILS 78.6 MONOCYTES 7.1 EOSINOPHILS 0.9 BASOPHILS 1.8 ANISOCYTOSIS 1+ PAPPENHEIMER BODIES 0 LYMPHOCYTES 9.8 ATYPICAL LYMPHOCYTES 1.8 PLT EST-CV DECREASED ADEQUATE BASO#-MDIFF 0.04 10*3/uL 0.01-0.20 EO#-MDIFF 0.02 10*3/uL 0.00-0.60 MONO#-MDIFF 0.16 10*3/uL L 0.19-0.80 LYMPH#-MDIFF 0.26 10*3/uL L 0.77-4.50 NEUT#-MDIFF 1.73 10*3/uL L 2.10-8.00 Aug 01, 2024 10:10 AM [facility] GLUCOSE,BLOOD-poct (STL) BLOOD Specimen Type: BLOOD Comment: Test Performed by: [id number] Meter #: [id number] Ordering Provider: SUKHJINDER CHAHAL Report Released Date/Time: Aug 01, 2024 10:17 AM Reporting Lab: [address] [address] Performing Lab: [address] [address] GLUCOSE,BLOOD-poct (STL) 101 mg/dL H 72-99 Jul 27, 2024 01:54 PM [facility] BRAIN NATRIURETIC PEPTIDE PLASMA Specimen Type : PLASMA No comment entered. Ordering Provider: ELIZABETH COATES Report Released Date/Time: Jul 27, 2024 03:39 PM Reporting Lab: [address] [address] Performing Lab: [address] [address] BRAIN NATRIURETIC PEPTIDE 257.2 pg/mL H 0- 100 Jul 27, 2024 01:54 PM [facility] TROPONIN I PLASMA Specimen Type: PLASM A Comment: No hemolysis noted. Ordering Provider: ELIZABETH COATES Report Released Date/Time: Jul 27, 2024 03:39 PM Reporting Lab: [address] [place] [address] Performing Lab: [address] [address] TROPONIN I 0.011 ng/mL 0-0.033 Jul 27, 2024 01:54 PM [facility] COMPREHENSIVE METABOLIC PANEL PLASMA Specimen Type: PLASMA Comment: No hemolysis noted. Ordering Provider: ELIZABETH COATES Report Released Date/Time: Jul 27, 2024 03:39 PM Reporting Lab: [address] [address] Performing Lab: [address] [address] CREATININE 0.70 mg/dL 0.7-1.3 UREA NITROGEN 7.4 mg/dL L 9.0-25.0 GLUCOSE 110 mg/dL H 72-99 SODIUM 135 meq/L L 136-145 POTASSIUM 3.7 meq/L 3.5-5 CHLORIDE 101 meq/L 98-107 CARBON DIOXIDE 26 meq/L 22-31 CALCIUM 8.7 mg/dL 8.4-10.4 PROTEIN 7.1 g/dL 6-8.6 ALBUMIN 3.3 g/dL L 3.4-5 TOTAL BILIRUBIN 0.9 mg/dL 0.2-1.2 ALKALINE PHOSPHATASE 112 U/L 40-150 AST/SGOT 33 U/L 5-34 ALT/SGPT 34 U/L 8-40 EGFR (CKD-EPI 2020) 101.0 >60 Jul 27, 2024 01:54 PM [facility] CBC BLOOD Specimen Type: BLOOD No comment entered. Ordering Provider: ELIZABETH COATES Report Released Date/Time: Jul 27, 2024 03:39 PM Reporting Lab: [address] [address] Performing Lab: [address] [address] WBC 3.2 10*3/uL L 3.6-11.2 RBC 3.12 10*6/uL L 4.10-5.70 HGB 9.9 g/dL L 13.1-16.8 HCT 31.5 L 38.2-48.4 MCV 101.0 fL H 80.0-100.0 MCH 31.7 pg 27.0-34.0 MCHC 31.4 g/dL L 33.0-36.0 PLT 86 10*3/uL L 150-400 MPV 11.5 fL H 7.5-11.2 RDW 16.3 H 11.8-15.1 IMMATURE PLT FRACTION 5.2 1.0-7.0 NEUTROPHILS 78.4 BAND NEUTROPHILS 8.6 MONOCYTES 4.3 EOSINOPHILS 0.9 BASOPHILS 0.9 ANISOCYTOSIS 1+ MACROCYTOSIS 1+ PAPPENHEIMER BODIES 0 LYMPHOCYTES 6.9 PLT EST-CV DECREASED ADEQUATE IG#-MDIFF 0.28 H 0.00-0.05 BASO#-MDIFF 0.03 10*3/uL 0.01-0.20 EO#-MDIFF 0.03 10*3/uL 0.00-0.60 MONO#-MDIFF 0.14 10*3/uL L 0.19-0.80 LYMPH#-MDIFF 0.22 10*3/uL L 0.77-4.50 NEUT#-MDIFF 2.51 10*3/uL 2.10-8.00 Jul 21, 2024 02:00 PM [facility] B12 SERUM Specimen Type: SERUM No comment entered. Ordering Provider: JORJE DENSON Report Released Date/Time: Jul 21, 2024 12:54 PM Reporting Lab: [address] [address] Performing Lab: [address] [address] B12 1584 pg/mL H 213-816 Jul 21, 2024 02:00 PM [facility] FOLATE (STL-MA) SERUM Specimen Type: SERUM No comment entered. Ordering Provider: JORJE DENSON Report Released Date/Time: Jul 21, 2024 12:54 PM Reporting Lab: [address] [address] Performing Lab: [address] [address] FOLATE (STL-MA) 9.1 ng/mL 7-20 Jul 21, 2024 02:00 PM [facility] IRON/TIBC PROFILE SERUM Specimen Type: SERUM No comment entered. Ordering Provider: JORJE DENSON Report Released Date/Time: Jul 21, 2024 12:54 PM Reporting Lab: [address] [address] Performing Lab: [address] [address] TIBC 243 ug/dL L 250-450 TRANSFERRIN 194 mg/dL 163-344 IRON SATURATION 20 20-50 IRON 49 ug/dL L 65-175 Jul 21, 2024 02:00 PM [facility] CBC BLOOD Specimen Type: BLOOD Comment: Manual differential performed 07/20/2024 No clots Ordering Provider: JORJE DENSON Report Released Date/Time: Jul 21, 2024 12:54 PM Reporting Lab: [address] [address] Performing Lab: [address] [address] WBC 5.6 10*3/uL 3.6-11.2 RBC 2.87 10*6/uL L 4.10-5.70 HGB 9.6 g/dL L 13.1-16.8 HCT 27.6 L 38.2-48.4 MCV 96.2 fL 80.0-100.0 MCH 33.4 pg 27.0-34.0 MCHC 34.8 g/dL 33.0-36.0 PLT 75 10*3/uL L 150-400 MPV 12.1 fL H 7.5-11.2 RDW 17.7 H 11.8-15.1 LYMPHOCYTES, AUTO % 9 MONOCYTES, AUTO % 15 NEUTROPHILS, AUTO % 71 EOSINOPHILS, AUTO % 3 BASOPHILS, AUTO % 1 LYMPHOCYTES, ABSOLUTE 0.49 10*3/uL L 0.77- 4.50 MONOCYTES, ABSOLUTE 0.82 10*3/uL H 0.19-0. 80 NEUTROPHILS, ABSOLUTE 4.01 10*3/uL 2.10- 8.00 EOSINOPHILS, ABSOLUTE 0.19 10*3/uL 0.00- 0.60 BASOPHILS, ABSOLUTE 0.03 10*3/uL 0.00-0. 20 IMMATURE PLT FRACTION 11.8 H 1.0-7.0 Jul 20, 2024 08:55 PM [facility] PT/INR NEW (STL-MA) PLASMA Specimen Type: PLAS MA No comment entered. Ordering Provider: AURA ZACARIAS Report Released Date/Time: Jul 18, 2024 01:30 PM Reporting Lab: [address] [address] Performing Lab: [address] [address] PROTIME 12.8 s H 9.4-12.5 INR VALUE 1.1 {INR} Jul 20, 2024 08:55 PM [facility] BASIC METABOLIC PANEL PLASMA Specimen Type: PL ASMA Comment: No hemolysis noted. Ordering Provider: AURA ZACARIAS Report Released Date/Time: Jul 18, 2024 01:30 PM Reporting Lab: [address] [address] Performing Lab: [address] [address] CREATININE 0.74 mg/dL 0.7-1.3 UREA NITROGEN 15.1 mg/dL 9.0-25.0 GLUCOSE 121 mg/dL H 72-99 SODIUM 130 meq/L L 136-145 POTASSIUM 3.7 meq/L 3.5-5 CHLORIDE 100 meq/L 98-107 CARBON DIOXIDE 20 meq/L L 22-31 CALCIUM 8.5 mg/dL 8.4-10.4 EGFR (CKD-EPI 2020) 99.3 >60 Jul 20, 2024 08:55 PM [facility] CBC BLOOD Specimen Type: BLOOD No comment entered. Ordering Provider: AURA ZACARIAS Report Released Date/Time: Jul 18, 2024 01:30 PM Reporting Lab: [address] [address] Performing Lab: [address] [address] WBC 5.1 10*3/uL 3.6-11.2 RBC 2.90 10*6/uL L 4.10-5.70 HGB 9.2 g/dL L 13.1-16.8 HCT 27.0 L 38.2-48.4 MCV 93.1 fL 80.0-100.0 MCH 31.7 pg 27.0-34.0 MCHC 34.1 g/dL 33.0-36.0 PLT 63 10*3/uL L 150-400 MPV 12.1 fL H 7.5-11.2 RDW 17.1 H 11.8-15.1 IMMATURE PLT FRACTION 11.0 H 1.0-7.0 NEUTROPHILS 84.9 MONOCYTES 5.3 EOSINOPHILS 0.9 METAMYELOCYTES 0.9 MYELOCYTES 0.9 ANISOCYTOSIS 1+ POLYCHROMASIA 1+ PAPPENHEIMER BODIES 0 LYMPHOCYTES 5.3 ATYPICAL LYMPHOCYTES 1.8 PLT EST-CV ADEQUATE ADEQUATE IG#-MDIFF 0.09 H 0.00-0.05 EO#-MDIFF 0.05 10*3/uL 0.00-0.60 MONO#-MDIFF 0.27 10*3/uL 0.19-0.80 LYMPH#-MDIFF 0.36 10*3/uL L 0.77-4.50 NEUT#-MDIFF 4.33 10*3/uL 2.10-8.00 Jul 20, 2024 01:13 PM [facility] CBC BLOOD Specimen Type: BLOOD No comment entered. Ordering Provider: AURA ZACARIAS Report Released Date/Time: Jul 18, 2024 01:30 PM Reporting Lab: [facility] [address] [facility] [address] Performing Lab: [facility] [address] [facility] [address] WBC 5.6 10*3/uL 3.6-11.2 RBC 3.11 10*6/uL L 4.10-5.70 HGB 10.2 g/dL L 13.1-16.8 HCT 29.4 L 38.2-48.4 MCV 94.5 fL 80.0-100.0 MCH 32.8 pg 27.0-34.0 MCHC 34.7 g/dL 33.0-36.0 PLT 61 10*3/uL L 150-400 MPV 13.0 fL H 7.5-11.2 RDW 17.0 H 11.8-15.1 IMMATURE PLT FRACTION 11.2 H 1.0-7.0 NEUTROPHILS 88.6 MONOCYTES 3.5 PROMYELOCYTES 0.9 ANISOCYTOSIS 2+ MACROCYTOSIS 1+ POLYCHROMASIA 1+ PAPPENHEIMER BODIES 0 LYMPHOCYTES 7.0 NRBC% 0.9 PLT EST-CV ADEQUATE ADEQUATE IG#-MDIFF 0.05 0.00-0.05 MONO#-MDIFF 0.20 10*3/uL 0.19-0.80 LYMPH#-MDIFF 0.39 10*3/uL L 0.77-4.50 NEUT#-MDIFF 4.96 10*3/uL 2.10-8.00 Jul 19, 2024 06:42 AM [facility] PT/INR NEW (STL-MA) PLASMA Specimen Type: PLAS MA No comment entered. Ordering Provider: AURA ZACARIAS Report Released Date/Time: Jul 18, 2024 01:30 PM Reporting Lab: [place] [id number] [facility] [address] Performing Lab: [address] [address] PROTIME 16.4 s H 9.4-12.5 INR VALUE 1.5 {INR} Jul 19, 2024 06:42 AM [facility] BASIC METABOLIC PANEL PLASMA Specimen Type: PL ASMA Comment: No hemolysis noted. Ordering Provider: AURA ZACARIAS Report Released Date/Time: Jul 18, 2024 01:30 PM Reporting Lab: [address] [address] Performing Lab: [address] [address] CREATININE 0.94 mg/dL 0.7-1.3 UREA NITROGEN 23.8 mg/dL 9.0-25.0 GLUCOSE 87 mg/dL 72-99 SODIUM 129 meq/L L 136-145 POTASSIUM 3.4 meq/L L 3.5-5 CHLORIDE 102 meq/L 98-107 CARBON DIOXIDE 20 meq/L L 22-31 CALCIUM 8.1 mg/dL L 8.4-10.4 EGFR (CKD-EPI 2020) 88.9 >60 Jul 19, 2024 06:42 AM [facility] CBC BLOOD Specimen Type: BLOOD No comment entered. Ordering Provider: AURA ZACARIAS Report Released Date/Time: Jul 18, 2024 01:30 PM Reporting Lab: [address] [address] Performing Lab: [address] [address] WBC 5.1 10*3/uL 3.6-11.2 RBC 2.45 10*6/uL L 4.10-5.70 HGB 8.0 g/dL L 13.1-16.8 HCT 22.9 L 38.2-48.4 MCV 93.5 fL 80.0-100.0 MCH 32.7 pg 27.0-34.0 MCHC 34.9 g/dL 33.0-36.0 PLT 39 10*3/uL L 150-400 MPV 12.9 fL H 7.5-11.2 RDW 16.3 H 11.8-15.1 LYMPHOCYTES, AUTO % 5 MONOCYTES, AUTO % 8 NEUTROPHILS, AUTO % 85 EOSINOPHILS, AUTO % 1 BASOPHILS, AUTO % 0 LYMPHOCYTES, ABSOLUTE 0.26 10*3/uL L 0.77- 4.50 MONOCYTES, ABSOLUTE 0.40 10*3/uL 0.19-0. 80 NEUTROPHILS, ABSOLUTE 4.35 10*3/uL 2.10- 8.00 EOSINOPHILS, ABSOLUTE 0.03 10*3/uL 0.00- 0.60 BASOPHILS, ABSOLUTE 0.01 10*3/uL 0.00-0. 20 IMMATURE PLT FRACTION 11.4 H 1.0-7.0 Jul 18, 2024 08:51 PM [facility] CBC BLOOD Specimen Type: BLOOD No comment entered. Ordering Provider: AURA ZACARIAS Report Released Date/Time: Jul 18, 2024 01:30 PM Reporting Lab: [address] [address] Performing Lab: [address] [address] WBC 6.2 10*3/uL 3.6-11.2 RBC 2.44 10*6/uL L 4.10-5.70 HGB 7.9 g/dL L 13.1-16.8 HCT 22.8 L 38.2-48.4 MCV 93.4 fL 80.0-100.0 MCH 32.4 pg 27.0-34.0 MCHC 34.6 g/dL 33.0-36.0 PLT 39 10*3/uL L 150-400 MPV 13.0 fL H 7.5-11.2 NEUTROPHILS 94.0 MONOCYTES 1.7 EOSINOPHILS 0.9 ANISOCYTOSIS 1+ POLYCHROMASIA 1+ RDW 16.2 H 11.8-15.1 PAPPENHEIMER BODIES 0 LYMPHOCYTES 3.4 IMMATURE PLT FRACTION 9.7 H 1.0-7.0 PLT EST-CV SIG. DECREASED ADEQUATE EO#-MDIFF 0.06 10*3/uL 0.00-0.60 MONO#-MDIFF 0.11 10*3/uL L 0.19-0.80 LYMPH#-MDIFF 0.21 10*3/uL L 0.77-4.50 NEUT#-MDIFF 5.83 10*3/uL 2.10-8.00 Jul 18, 2024 04:19 PM [facility] CBC BLOOD Specimen Type: BLOOD No comment entered. Ordering Provider: AURA ZACARIAS Report Released Date/Time: Jul 18, 2024 01:30 PM Reporting Lab: [address] [address] Performing Lab: [address] [address] WBC 6.1 10*3/uL 3.6-11.2 RBC 2.57 10*6/uL L 4.10-5.70 HGB 8.2 g/dL L 13.1-16.8 HCT 24.1 L 38.2-48.4 MCV 93.8 fL 80.0-100.0 MCH 31.9 pg 27.0-34.0 MCHC 34.0 g/dL 33.0-36.0 PLT 44 10*3/uL L 150-400 MPV 12.9 fL H 7.5-11.2 RDW 16.6 H 11.8-15.1 IMMATURE PLT FRACTION 11.9 H 1.0-7.0 NEUTROPHILS 93.9 ANISOCYTOSIS 1+ POLYCHROMASIA 1+ PAPPENHEIMER BODIES 0 LYMPHOCYTES 6.1 PLT EST-CV SIG. DECREASED ADEQUATE LYMPH#-MDIFF 0.37 10*3/uL L 0.77-4.50 NEUT#-MDIFF 5.73 10*3/uL 2.10-8.00 Jul 18, 2024 06:32 AM [facility] LACTIC ACID (STL-PB) PLASMA Specimen Type: NEIL SMA No comment entered. Ordering Provider: CAMDEN PATTON Report Released Date/Time: Jul 17, 2024 07:38 PM Reporting Lab: [address] [address] Performing Lab: [address] [address] LACTIC ACID (STL-PB) 1.3 mmol/L 0.5-2.0 Jul 18, 2024 06:32 AM [facility] PT/INR NEW (L-MA) PLASMA Specimen Type: PLAS MA No comment entered. Ordering Provider: CAMDEN PATTON Report Released Date/Time: Jul 17, 2024 07:38 PM Reporting Lab: [address] [address] Performing Lab: [address] [address] PROTIME 19.1 s H 9.4-12.5 INR VALUE 1.7 {INR} Jul 18, 2024 06:32 AM [facility] CBC BLOOD Specimen Type: BLOOD Comment: HGB Called to : Dr. Posadas MOD at: 0657 on: 07/18/24 by: [email or web address] Critical Verbal Readback Performed Ordering Provider: CAMDEN PATTON Report Released Date/Time: Jul 17, 2024 07:38 PM Reporting Lab: [address] [address] Performing Lab: [address] [address] WBC 7.0 10*3/uL 3.6-11.2 RBC 2.04 10*6/uL L 4.10-5.70 HGB 6.6 g/dL LL 13.1-16.8 HCT 19.3 L 38.2-48.4 MCV 94.6 fL 80.0-100.0 MCH 32.4 pg 27.0-34.0 MCHC 34.2 g/dL 33.0-36.0 PLT 44 10*3/uL L 150-400 MPV 13.3 fL H 7.5-11.2 RDW 15.3 H 11.8-15.1 IMMATURE PLT FRACTION 10.7 H 1.0-7.0 NEUTROPHILS 87.1 BAND NEUTROPHILS 5.2 MONOCYTES 2.6 ANISOCYTOSIS 1+ POLYCHROMASIA 1+ PAPPENHEIMER BODIES 0 LYMPHOCYTES 4.3 ATYPICAL LYMPHOCYTES 0.8 PLT EST-CV DECREASED ADEQUATE IG#-MDIFF 0.36 H 0.00-0.05 MONO#-MDIFF 0.18 10*3/uL L 0.19-0.80 LYMPH#-MDIFF 0.36 10*3/uL L 0.77-4.50 NEUT#-MDIFF 6.10 10*3/uL 2.10-8.00 Jul 18, 2024 06:32 AM [facility] VANCOMYCIN (STL) PLASMA Specimen Type: PLASM A No comment entered. Ordering Provider: CAMDEN PATTON Report Released Date/Time: Jul 17, 2024 07:38 PM Reporting Lab: [facility] [address] [facility] [address] Performing Lab: [facility] [address] [facility] [address] VANCOMYCIN (STL) 5.0 ug/mL L 10-15 Jul 18, 2024 06:32 AM [facility] MAGNESIUM PLASMA Specimen Type: PLASM A Comment: No hemolysis noted. Ordering Provider: CAMDEN PATTON Report Released Date/Time: Jul 17, 2024 07:38 PM Reporting Lab: [facility] [address] [facility] [address] Performing Lab: [facility] [address] [place] [id number] MAGNESIUM 1.5 mg/dL L 1.6-2.6 Jul 18, 2024 06:32 AM [facility] PHOSPHOROUS PLASMA Specimen Type: PLASM A Comment: No hemolysis noted. Ordering Provider: CAMDEN PATTON Report Released Date/Time: Jul 17, 2024 07:38 PM Reporting Lab: [address] [address] Performing Lab: [address] [address] PHOSPHOROUS 2.2 mg/dL L 2.3-4.7 Jul 18, 2024 06:32 AM [facility] COMPREHENSIVE METABOLIC PANEL PLASMA Specimen Type: PLASMA Comment: No hemolysis noted. Ordering Provider: CAMDEN PATTON Report Released Date/Time: Jul 17, 2024 07:38 PM Reporting Lab: [address] [address] Performing Lab: [address] [address] CREATININE 1.08 mg/dL 0.7-1.3 UREA NITROGEN 40.5 mg/dL H 9.0-25.0 GLUCOSE 83 mg/dL 72-99 SODIUM 133 meq/L L 136-145 POTASSIUM 3.7 meq/L 3.5-5 CHLORIDE 104 meq/L 98-107 CARBON DIOXIDE 24 meq/L 22-31 CALCIUM 8.7 mg/dL 8.4-10.4 PROTEIN 5.2 g/dL L 6-8.6 ALBUMIN 2.6 g/dL L 3.4-5 TOTAL BILIRUBIN 1.6 mg/dL H 0.2-1.2 ALKALINE PHOSPHATASE 75 U/L 40-150 AST/SGOT 230 U/L H 5-34 ALT/SGPT 155 U/L H 8-40 EGFR (CKD-EPI 2020) 75.2 >60 Jul 18, 2024 12:05 AM [facility] HGB,HCT,PLT BLOOD Specimen Type: BLOOD No comment entered. Ordering Provider: ROSA VARGAS Report Released Date/Time: Jul 17, 2024 09:07 PM Reporting Lab: [address] [address] Performing Lab: [address] [address] HGB 7.3 g/dL L 13.1-16.8 HCT 21.0 L 38.2-48.4 PLT 64 10*3/uL L 150-400 Jul 17, 2024 07:45 PM [facility] MRSA SURVL NARES DNA NARES Specimen Type: DASH ES Comment: Qualitative real-time PCR test for the rapid detection of methicillin-resistant Staphylococcus aureus (MRSA) DNA from nasal swabs. A negative result does not preclude infection with the agent(s) tested and should not be used as the sole basis for treatment or other patient management decisions. A positive test does not necessarily indicate the presence of viable organisms, following bacterial culture to recover the organism for further characterization and susceptibility testing. All results must be combined with clinical observations, patient history, and epidemiological information for final interpretation. Ordering Provider: CAMDEN PATTON Report Released Date/Time: Jul 17, 2024 07:38 PM Reporting Lab: [address] [address] Performing Lab: [address] [address] MRSA SURVL NARES DNA Negative Negative Jul 17, 2024 07:36 PM [facility] GLUCOSE,BLOOD-poct (STL) BLOOD Specimen Type: BLOOD Comment: Test Performed by: [id number] Meter #: [id number] Ordering Provider: CAMDEN PATTON Report Released Date/Time: Jul 17, 2024 07:48 PM Reporting Lab: [address] [address] Performing Lab: [address] [address] GLUCOSE,BLOOD-poct (STL) 98 mg/dL 72-99 Jul 17, 2024 07:35 PM [facility] BLOOD GAS PANEL ABG (L) VENOUS BLOOD Specimen Type : VENOUS BLOOD Comment: normalcy status - Below absolute low-off instrument scale Test Performed by: [id number] Meter #: [id number] Ordering Provider: CAMDEN PATTON Report Released Date/Time: Jul 17, 2024 07:37 PM Reporting Lab: [address] [address] Performing Lab: [address] [address] GEM PH 7.39 7.31-7.41 GEM PCO2 31 mm[Hg] L 41-51 GEM PO2 27 mm[Hg] 25-48 GEM SODIUM 130 mmol/L L 136-145 GEM POTASSIUM 4.0 mmol/L 3.5-5.0 GEM CHLORIDE 103 mmol/L 98-107 GEM IONIZED CA 1.18 mmol/L 1.09-1.30 GEM HCT <15 38-48 GEM THB 4.2 g/dL LL 13.1-16.8 GEM 02HB 45.5 L 60.0-85.0 GEM COHB 1.3 0.5-2.0 GEM METHB 2.5 2.0-1.9 GEM GLUCOSE 69 mg/dL L 72-99 GEM LACTATE 6.0 mmol/L H 0.9-2.0 GEM SO2 47.3 L 68.0-77.0 GEM CHCO3 18.8 mmol/L 20.0-26.0 GEM BASE EXCESS -5.8 mmol/L L GEM FIO2 21.0 GEM PT. TEMP 37.0 Jul 17, 2024 07:10 PM [facility] URINALYSIS W/ CX REFLEX (STL-PB) URINE Specim en Type: URINE No comment entered. Ordering Provider: CASEY BOONE Report Released Date/Time: Jul 17, 2024 04:24 PM Reporting Lab: [address] [address] Performing Lab: [address] [address] URINE COLOR Light-Yellow Yellow U.BILIRUBIN Negative mg/dL Negative U.PH 6.0 5.0-8.0 APPEARANCE Clear Clear U.NITRITE Negative mg/dL Negative URN.GLUCOSE Normal mg/dL Negative URN.PROTEIN Negative mg/dL URN.UROBILINOGEN Normal mg/dL Normal URN.BLOOD Negative mg/dL Negative-Trace URN.KETONES Trace mg/dL Negative-Trace URN.LEUK.EST. Negative mg/dL Negative-Tr april URN.SPECIFIC GRAVITY 1.029 Jul 17, 2024 06:25 PM [facility] HAPTOGLOBIN (STL) PLASMA Specimen Type: PLASM A No comment entered. Ordering Provider: CASEY BOONE Report Released Date/Time: Jul 17, 2024 06:13 PM Reporting Lab: [address] [address] Performing Lab: [address] [address] HAPTOGLOBIN (STL) 93 mg/dL 44-215 Jul 17, 2024 06:25 PM [facility] RETICULOCYTE PANEL BLOOD Specimen Type: BLOOD No comment entered. Ordering Provider: CASEY BOONE Report Released Date/Time: Jul 17, 2024 06:13 PM Reporting Lab: [address] [address] Performing Lab: [address] [address] RETIC RATIO 7.35 H 0.50-2.30 IRF 39.7 H 2.3-13.4 RETICULOCYTE HEMOGLOBIN EQUIVALENT 35.8 pg 28.2-36.6 RETIC COUNT,ABS 0.129 10*6/uL H 0.022-0.10 1 Jul 17, 2024 06:25 PM [facility] LDH PLASMA Specimen Type: PLASM A No comment entered. Ordering Provider: CASEY BOONE Report Released Date/Time: Jul 17, 2024 06:13 PM Reporting Lab: [address] [address] Performing Lab: [address] [address] LDH 305 U/L H 125-243 Jul 17, 2024 06:25 PM [facility] CBC BLOOD Specimen Type: BLOOD Comment: HGB Called to : Watson White at: [id number] on:[id number] by: [facility] Critical Verbal Readback Performed Ordering Provider: CAMDEN PATTON Report Released Date/Time: Jul 17, 2024 07:09 PM Reporting Lab: [address] [address] Performing Lab: [address] [address] WBC 27.6 10*3/uL H 3.6-11.2 RBC 1.76 10*6/uL L 4.10-5.70 HGB 6.1 g/dL LL 13.1-16.8 HCT 17.5 L 38.2-48.4 MCV 99.4 fL 80.0-100.0 MCH 34.7 pg H 27.0-34.0 MCHC 34.9 g/dL 33.0-36.0 PLT 92 10*3/uL L 150-400 MPV 13.6 fL H 7.5-11.2 RDW 14.7 11.8-15.1 IMMATURE PLT FRACTION 13.8 H 1.0-7.0 NEUTROPHILS 93.0 BAND NEUTROPHILS 0.9 MONOCYTES 1.7 ANISOCYTOSIS 1+ POLYCHROMASIA 1+ PAPPENHEIMER BODIES 0 LYMPHOCYTES 3.5 ATYPICAL LYMPHOCYTES 0.9 PLT EST-CV ADEQUATE ADEQUATE IG#-MDIFF 0.25 H 0.00-0.05 MONO#-MDIFF 0.47 10*3/uL 0.19-0.80 LYMPH#-MDIFF 1.21 10*3/uL 0.77-4.50 NEUT#-MDIFF 25.67 10*3/uL H 2.10-8.00 Jul 17, 2024 04:59 PM [facility] BLOOD GAS PANEL ABG (L) VENOUS BLOOD Specimen Type : VENOUS BLOOD Comment: Test Performed by: [id number] Meter #: [id number] Ordering Provider: CASEY BOONE Report Released Date/Time: Jul 17, 2024 05:00 PM Reporting Lab: [address] [address] Performing Lab: [address] [address] GEM PH 7.39 7.31-7.41 GEM PCO2 33 mm[Hg] L 41-51 GEM PO2 16 mm[Hg] L 25-48 GEM SODIUM 129 mmol/L L 136-145 GEM POTASSIUM 4.5 mmol/L 3.5-5.0 GEM CHLORIDE 97 mmol/L L 98-107 GEM IONIZED CA 1.21 mmol/L 1.09-1.30 GEM HCT 30 L 38-48 GEM THB 10.3 g/dL L 13.1-16.8 GEM 02HB 17.1 L 60.0-85.0 GEM COHB 0.5 0.5-2.0 GEM METHB 1.5 L 2.0-1.9 GEM GLUCOSE 104 mg/dL H 72-99 GEM LACTATE 8.1 mmol/L H 0.9-2.0 GEM SO2 17.4 L 68.0-77.0 GEM CHCO3 20.0 mmol/L 20.0-26.0 GEM BASE EXCESS -4.3 mmol/L L GEM FIO2 21.0 GEM PT. TEMP 37.0 Jul 17, 2024 04:25 PM [facility] MAGNESIUM PLASMA Specimen Type: PLASM A Comment: No hemolysis noted. Ordering Provider: CASEY BOONE Report Released Date/Time: Jul 17, 2024 04:24 PM Reporting Lab: [address] [address] Performing Lab: [address] [address] MAGNESIUM 1.4 mg/dL L 1.6-2.6 Jul 17, 2024 04:25 PM [facility] PT/INR NEW ([facility]) PLASMA Specimen Type: PLAS MA No comment entered. Ordering Provider: CASEY BOONE Report Released Date/Time: Jul 17, 2024 04:24 PM Reporting Lab: [address] [address] Performing Lab: [address] [address] PROTIME 25.3 s H 9.4-12.5 INR VALUE 2.3 {INR} Jul 17, 2024 04:25 PM [facility] COVID-19 DIAGNOSTIC (FLU/RSV)(STL) NASOPHARYNX Spec imen Type: NASOPHARYNX Comment: Qualitative real-time PCR and RT-PCR to detect viral RNA. A negative result does not preclude infection with the agent(s) tested and should not be used as the sole basis for treatment or other patient management decisions. If negative, but symptoms persist, consider re-testing. Positive results do not rule out bacterial infection or co-infection with other viruses. All results must be combined with clinical observations, patient history, and epidemiological information for final interpretation. Ordering Provider: CASEY BOONE Report Released Date/Time: Jul 17, 2024 04:24 PM Reporting Lab: [place] [id number] [facility] [address] Performing Lab: [address] [address] INFLUENZA A Negative Negative INFLUENZA B Negative Negative COVID-19 (STL-PB) Not Detected Not Detec nate RSV (Cepheid) NEGATIVE Negative Jul 17, 2024 04:25 PM [facility] COMPREHENSIVE METABOLIC PANEL PLASMA Specimen Type: PLASMA Comment: No hemolysis noted. Ordering Provider: CASEY BOONE Report Released Date/Time: Jul 17, 2024 04:24 PM Reporting Lab: [facility] [address] [facility] [address] Performing Lab: [address] [address] CREATININE 1.25 mg/dL 0.7-1.3 UREA NITROGEN 47.0 mg/dL H 9.0-25.0 GLUCOSE 110 mg/dL H 72-99 SODIUM 131 meq/L L 136-145 POTASSIUM 4.1 meq/L 3.5-5 CHLORIDE 99 meq/L 98-107 CARBON DIOXIDE 17 meq/L L 22-31 CALCIUM 9.1 mg/dL 8.4-10.4 PROTEIN 6.4 g/dL 6-8.6 ALBUMIN 3.1 g/dL L 3.4-5 TOTAL BILIRUBIN 1.4 mg/dL H 0.2-1.2 ALKALINE PHOSPHATASE 97 U/L 40-150 AST/SGOT 100 U/L H 5-34 ALT/SGPT 57 U/L H 8-40 EGFR (CKD-EPI 2020) 63.1 >60 Jul 17, 2024 04:25 PM [facility] CBC BLOOD Specimen Type: BLOOD No comment entered. Ordering Provider: CASEY BOONE Report Released Date/Time: Jul 17, 2024 04:24 PM Reporting Lab: [facility] [address] [facility] [address] Performing Lab: [address] [address] WBC 42.4 10*3/uL H 3.6-11.2 RBC 2.20 10*6/uL L 4.10-5.70 HGB 7.8 g/dL L 13.1-16.8 HCT 21.9 L 38.2-48.4 MCV 99.5 fL 80.0-100.0 MCH 35.5 pg H 27.0-34.0 MCHC 35.6 g/dL 33.0-36.0 PLT 148 10*3/uL L 150-400 MPV 13.3 fL H 7.5-11.2 NEUTROPHILS 95.7 BAND NEUTROPHILS 1.7 METAMYELOCYTES 0.9 ANISOCYTOSIS 1+ POLYCHROMASIA 1+ RDW 14.7 11.8-15.1 PAPPENHEIMER BODIES 0 LYMPHOCYTES 1.7 LYMPHOCYTES, AUTO % 3 MONOCYTES, AUTO % 4 NEUTROPHILS, AUTO % 91 EOSINOPHILS, AUTO % 0 BASOPHILS, AUTO % 0 LYMPHOCYTES, ABSOLUTE 1.26 10*3/uL 0.77- 4.50 MONOCYTES, ABSOLUTE 1.75 10*3/uL H 0.19-0. 80 NEUTROPHILS, ABSOLUTE 38.31 10*3/uL H 2.10 -8.00 EOSINOPHILS, ABSOLUTE 0.01 10*3/uL 0.00- 0.60 BASOPHILS, ABSOLUTE 0.10 10*3/uL 0.00-0. 20 IMMATURE PLT FRACTION 14.6 H 1.0-7.0 PLT EST-CV ADEQUATE ADEQUATE IG#-MDIFF 1.10 H 0.00-0.05 LYMPH#-MDIFF 0.72 10*3/uL L 0.77-4.50 NEUT#-MDIFF 40.58 10*3/uL H 2.10-8.00 Jul 13, 2024 12:39 PM [facility] PHOSPHOROUS PLASMA Specimen Type: PLASM A Comment: No hemolysis noted. Ordering Provider: TONY SIMMONS Report Released Date/Time: Jun 07, 2024 01:01 PM Reporting Lab: [address] [address] Performing Lab: [facility] [address] [place] [id number] PHOSPHOROUS 2.4 mg/dL 2.3-4.7 Jul 13, 2024 12:39 PM [facility] TSH W/ REFLEX FT4 (STL) PLASMA Specimen Type: PLASMA No comment entered. Ordering Provider: TONY SIMMONS Report Released Date/Time: Jun 07, 2024 01:01 PM Reporting Lab: [address] [address] Performing Lab: [address] [address] TSH 1.431 u[IU]/mL 0.47-5 Jul 13, 2024 12:39 PM [facility] MAGNESIUM PLASMA Specimen Type: PLASM A Comment: No hemolysis noted. Ordering Provider: TONY SIMMONS Report Released Date/Time: Jun 07, 2024 01:01 PM Reporting Lab: [address] [address] Performing Lab: [address] [address] MAGNESIUM 2.0 mg/dL 1.6-2.6 Jul 13, 2024 12:39 PM [facility] COMPREHENSIVE METABOLIC PANEL PLASMA Specimen Type: PLASMA Comment: No hemolysis noted. Ordering Provider: TONY SIMMONS Report Released Date/Time: Jun 07, 2024 01:01 PM Reporting Lab: [address] [address] Performing Lab: [address] [address] CREATININE 0.75 mg/dL 0.7-1.3 UREA NITROGEN 21.3 mg/dL 9.0-25.0 GLUCOSE 143 mg/dL H 72-99 SODIUM 137 meq/L 136-145 POTASSIUM 3.8 meq/L 3.5-5 CHLORIDE 101 meq/L 98-107 CARBON DIOXIDE 28 meq/L 22-31 CALCIUM 9.7 mg/dL 8.4-10.4 PROTEIN 8.2 g/dL 6-8.6 ALBUMIN 3.8 g/dL 3.4-5 TOTAL BILIRUBIN 0.6 mg/dL 0.2-1.2 ALKALINE PHOSPHATASE 128 U/L 40-150 AST/SGOT 28 U/L 5-34 ALT/SGPT 11 U/L 8-40 EGFR (CKD-EPI 2020) 98.9 >60 Jul 13, 2024 12:39 PM [facility] CBC BLOOD Specimen Type: BLOOD Comment: no clot Ordering Provider: TONY SIMMONS Report Released Date/Time: Jun 07, 2024 01:01 PM Reporting Lab: [address] [phone] Performing Lab: [address] [address] WBC 3.0 10*3/uL L 3.6-11.2 RBC 3.83 10*6/uL L 4.10-5.70 HGB 13.0 g/dL L 13.1-16.8 HCT 37.6 L 38.2-48.4 MCV 98.2 fL 80.0-100.0 MCH 33.9 pg 27.0-34.0 MCHC 34.6 g/dL 33.0-36.0 PLT 61 10*3/uL L 150-400 MPV 12.2 fL H 7.5-11.2 RDW 13.6 11.8-15.1 IMMATURE PLT FRACTION 7.3 H 1.0-7.0 NEUTROPHILS 84.1 MONOCYTES 4.4 EOSINOPHILS 0.9 POIKILOCYTOSIS 1+ PAPPENHEIMER BODIES 0 LYMPHOCYTES 10.6 TEARDROPS 1+ PLT EST-CV DECREASED ADEQUATE EO#-MDIFF 0.03 10*3/uL 0.00-0.60 MONO#-MDIFF 0.13 10*3/uL L 0.19-0.80 LYMPH#-MDIFF 0.32 10*3/uL L 0.77-4.50 NEUT#-MDIFF 2.52 10*3/uL 2.10-8.00 Jul 13, 2024 12:38 PM [facility] ALPHA-FETOPROTEIN(STL-PB) SERUM Specimen Type : SERUM No comment entered. Ordering Provider: CRYSTAL MASSEY Report Released Date/Time: Jul 04, 2024 03:26 PM Reporting Lab: [address] [phone] Performing Lab: [address] [address] ALPHA-FETOPROTEIN(STL-PB) 16.86 ng/mL H 1- 8.78 Jul 13, 2024 12:37 PM [facility] CARBOHYDRATE Ag SERUM Specimen Type: SERUM Comment: REFERENCE RANGE: <34 U/mL This test was performed using the Siemens chemiluminescent method. Values obtained from different assay methods cannot be used inter- changeably. CA 19-9 levels, regardless of value, should not be interpreted as absolute evidence of the presence or absence of disease. Test Performed by [facility], [facility], [address] [place] [address] Tristin Iyer M.D., Ph.D., Director of Laboratories , [facility] [id number] Ordering Provider: CRYSTAL MASSEY Report Released Date/Time: Jul 04, 2024 03:28 PM Reporting Lab: [address] [phone] Performing Lab: [address] CARBOHYDRATE Ag 61 H SEE BELOW Vital Signs: All taken on the encounter date This section contains inpatient and outpatient Vital Signs collected on the date of the Encounter. Date/Time Temperature Pulse Blood Pressure Respiratory Rate SP02 Pain Height Weight Body Mass Index Source Aug 10, 2024 08:00 PM 0 [facility] Aug 10, 2024 06:00 PM 0 [facility] Aug 10, 2024 06:00 PM 98.2 77 115/61 13 100 0 [facility] Aug 10, 2024 04:54 PM 74 129/74 [facility] Aug 10, 2024 12:19 PM 97.8 80 125/78 18 7 [facility] Social History: Smoking Status (Most current) and Tobacco Use (All prior to encounter date) This section includes the most current, and the historical, smoking and tobacco- related health factors from the [place] facility where the Encounter took place. Current Smoking Status This section includes the most current smoking, or tobacco-related health factor, from the [place] facility where the Encounter took place. Date/Time Current Smoking Status Comment Facil ity Jul 17, 2024 04:02 PM ORYX ADMIT TOBACCO SCREEN NO [facility] Tobacco Use History This section includes a history of the smoking, or tobacco-related health factors, that were collected on or before the date of the Encounter. The data comes from the [place] facility where the Encounter took place. Date/Time Smoking Status/Tobacco Use Comment F acility Jan 20, 2023 03:49 PM VA-TOBACCO FORMER USER [facility] Jan 20, 2023 03:49 PM VA-TOBACCO QUIT 15 YRS OR MORE [facility] Feb 06, 2021 04:28 PM VA-TOBACCO FORMER USER [facility] Feb 06, 2021 04:28 PM VA-TOBACCO QUIT 15 YRS OR MORE [facility] Radiology Reports: +/- 30 days of [...] the Encounter. The data comes from all [place] treatment facilities. Date/Time Radiology Report Provider Source Aug 23, 2024 12:12 PM US BLOOD FLOW ABD/RENAL DOPPLER (COMPLETE): CARINEABRAHAM MEJIA [id number] -1955 M Ex Date: AUG 23, 2024@12:12 Req Phys: LENKA,GILSON W Pat Loc: [facility]-GEN MED INPT VISIT (Req'g L Img Loc: [facility]ULTRASOUND [facility] Service: Unknown [facility], [facility] [address] [place] [address] (Case [id number] COMPLETE) US BLOOD FLOW ABD/RENAL DOPPLER ((US Detailed) CPT:41593 Reason for Study: dopplers Clinical History: Report Status: Verified Date Reported: AUG 23, 2024 Date Verified: AUG 23, 2024 Business Technology Teacher E-Sig:/ES/PETROS MCCORD Report: Case [id number], [id number]. US ABDOMEN LTD, SINGLE ORG OR QUADRANT, US BLOOD FLOW ABD/RENAL DOPPLER (COMPLETE). Technique: Real-time ultrasound examination of the right upper quadrant was obtained in multiple projections using grayscale and Doppler ultrasound. Comparison: 12/24/2021 Findings: Pancreas: Not visualized due to overlying bowel gas Liver: There is coarsening of the liver echotexture with surface nodularity. An echogenic focus measuring 1.5 cm is redemonstrated within the right hepatic lobe. This likely corresponds with the treated lesion in hepatic segment 8 seen on prior imaging. Gallbladder: No gallbladder calculi are present. Gallbladder wall thickening measuring up to 5 mm is nonspecific in the setting of chronic liver disease and ascites. The sonographic Albright's sign is negative. Biliary system: No dilatation of the intrahepatic biliary tree is seen. The common duct is within normal limits measuring 5 mm. Right kidney (limited views): Within normal limits. Doppler evaluation: The visible hepatic veins are patent with appropriate flow direction and waveform phasicity. The main portal vein is patent with appropriate hepatopetal blood flow. The main portal vein flow velocity is 25.7 cm/s. Hepatic artery is patent with appropriate rapid early systolic rise time. Moderate ascites is present with the largest pockets of fluid within the right and left lower quadrant. Impression: 1. Moderate volume ascites with the largest pockets in the right and left lower quadrant. 2. Chronic liver disease. Stable hyperechoic focus within the right hepatic lobe which may relate to the known treatment change. 3. Patent hepatic vasculature. Primary Interpreting Staff: PETROS MCCORD MD (Business Technology Teacher) /PETROS SRIVASTAVA [facility] Aug 23, 2024 12:12 PM US ABDOMEN LTD, SINGLE ORG OR QUADRANT: ABRAHAM HAWK [id number] -1955 M Exm Date: AUG 23, 2024@12:12 Req Phys: LENKAGILSON Jasvir Giraldo Loc: [facility]-GEN MED INPT VISIT (Req'g L Img Loc: [facility]ULTR[facility]OUND [facility] Service: Unknown [facility], [facility] [address] [place] [address] (Case [id number] COMPLETE) US ABDOMEN LTD, SINGLE ORG OR CARLITOS(US Detailed) CPT:65318 Reason for Study: Possible SBP, RUQUS with dopplers, please comment on ascites? Clinical History: Report Status: Verified Date Reported: AUG 23, 2024 Date Verified: AUG 23, 2024 Business Technology Teacher E-Sig:/ES/PETROS MCCORD Report: Case [id number], [id number]. US ABDOMEN LTD, SINGLE ORG OR QUADRANT, US BLOOD FLOW ABD/RENAL DOPPLER (COMPLETE). Technique: Real-time ultrasound examination of the right upper quadrant was obtained in multiple projections using grayscale and Doppler ultrasound. Comparison: 12/24/2021 Findings: Pancreas: Not visualized due to overlying bowel gas Liver: There is coarsening of the liver echotexture with surface nodularity. An echogenic focus measuring 1.5 cm is redemonstrated within the right hepatic lobe. This likely corresponds with the treated lesion in hepatic segment 8 seen on prior imaging. Gallbladder: No gallbladder calculi are present. Gallbladder wall thickening measuring up to 5 mm is nonspecific in the setting of chronic liver disease and ascites. The sonographic Albright's sign is negative. Biliary system: No dilatation of the intrahepatic biliary tree is seen. The common duct is within normal limits measuring 5 mm. Right kidney (limited views): Within normal limits. Doppler evaluation: The visible hepatic veins are patent with appropriate flow direction and waveform phasicity. The main portal vein is patent with appropriate hepatopetal blood flow. The main portal vein flow velocity is 25.7 cm/s. Hepatic artery is patent with appropriate rapid early systolic rise time. Moderate ascites is present with the largest pockets of fluid within the right and left lower quadrant. Impression: 1. Moderate volume ascites with the largest pockets in the right and left lower quadrant. 2. Chronic liver disease. Stable hyperechoic focus within the right hepatic lobe which may relate to the known treatment change. 3. Patent hepatic vasculature. Primary Interpreting Staff: PETROS MCCORD MD (Business Technology Teacher) /PETROS SRIVASTAVA [facility] Aug 10, 2024 02:[address] ABD PEL W/CONT & 3D: ABRAHAM HAWK [id number] -1955 M Exm Date: AUG 10, 2024@14:33 Req Phys: YASIR SANZ MD Pat Loc: [facility]-EMERGENCY DEPT 2ND SHIFT (R Img Loc: [facility]-CT IMAGING [facility] Service: [address] [address] (Case [id number] COMPLETE) CT ABDOMEN AND PELVIS W/CONTRAST (CT Detailed) CPT:29804 Contrast Media : Non-ionic Iodinated Reason for Study: Abdominal pain, vomiting Clinical History: Responsible Attending: Svetlana Attending Contact Number: [phone] Resident Contact Number: Abdominal pain, vomiting Allergies listed in CPRS chart: Patient has answered NKA Creatinine:CREATININE 0.82 mg/dL 08/10/2024 11:30 /eGFR: STL EGFR (within one year). CREATININE 0.82 mg/dL (08/10/24 11:30) Wt: 152.1 lb [68.99 kg] (08/10/2024 11:31) History of: Renal failure, chronic or acute renal disease: NO Report Status: Verified Date Reported: AUG 10, 2024 Date Verified: AUG 10, 2024 Business Technology Teacher E-Sig:/ES/PETROS MCCORD Report: Case [id number]. CT ABDOMEN AND PELVIS W/CONTRAST. Gastrointestinal contrast: None. IV contrast: Yes. Comparison: 07/17/2024 History: Abdominal pain, vomiting FINDINGS: Inferior chest: Within normal limits. Liver: Cirrhotic morphology of the liver with decreased size and coarse nodularity of the hepatic surface. Within hepatic segment 8 there is a 1.9 x 1.5 cm partially calcified hypodense lesion compatible with posttreatment changes as described in prior reports. There is mild enlargement of the main pulmonary vein. The main portal vein and branches are patent. Gallbladder: Mild gallbladder distention, decreased from recent prior examination. Pericholecystic fluid versus gallbladder wall edema may relate to chronic liver disease and worsening ascites. No radiodense gallstones are noted. Biliary: Within normal limits. Spleen: Splenomegaly with the spleen measuring 15.2 cm. Pancreas: Within normal limits. Adrenals: Within normal limits. Kidneys: Punctate nonobstructing renal stone within the left superior pole (series 3 image 30). 2 mm right kidney upper pole calculus. Bladder: Within normal limits. Reproductive: Prostate within normal limits. Gastrointestinal: Sigmoid and descending colon colonic diverticulosis without evidence of diverticulitis. Mild submucosal edema of the colon representing portal colopathy. There is a small bowel wall edema, primarily the duodenum, likely representing portal enteropathy. This is new from the recent prior CT. No evidence of small bowel obstruction or ileus. Retroperitoneum/mesentery: Moderate volume simple attenuating ascites is new from the recent prior exam. There is ascites extending through a direct and separate indirect right inguinal hernia, increased from prior exam. Vascular: The abdominal aorta and its branches are atherosclerotic. Musculoskeletal: Moderate degenerative changes at the right greater than left sacroiliac joints. Mild degenerative changes within spine. Impression: 1. Chronic liver disease with sequela portal venous hypertension.. There is significantly increased ascites compared with the prior exam concerning for worsening portal hypertension. Main portal vein and branches as well as the hepatic veins appear patent. Stable posttreatment changes within hepatic segment 8 2. New bowel wall thickening involving the duodenum with submucosal edema. While this could relate to worsening portal hypertension and related enterography, enteritis cannot be excluded. 3. Gallbladder distention with pericholecystic fluid and possible gallbladder wall thickening, favored to relate to liver disease and worsening ascites. Recommend clinical correlation for cholecystitis. No radiopaque gallstones are identified and the gallbladder is less distended than on the recent prior examination. 4. Increased fluid within right direct and indirect inguinal hernias. Dictated by Kenneth Albright DO (radiology administrator). I, Petros Mccord, have reviewed the images and report and concur with these findings. Primary Interpreting Staff: PETROS MCCORD MD (Business Technology Teacher) Primary Interpreting Resident: KENNETH ALBRIGHT, Commissary Agent /PETROS REESE [facility] Aug 01, 2024 10:20 AM PET/CT TUMOR IMAGING (SKULL TO MID-THIGH)-P: ABRAHAM HAWK [id number] -1955 M Exm Date: AUG 01, 2024@10:20 Req Phys: TONY SIMMONS Loc: [facility]-ONCOLOGY [facility] (Req'g Loc) [facility] [place]: [facility]-CT Service: [facility], [facility] [address] [place] [address] (Case [id number] COMPLETE) PET/CT TUMOR SKULL BASE TO MID-T(NM Detailed) CPT:98141 CPT Modifiers : PS PET TUMOR SUBSQ TX STRATEGY Reason for Study: Nasopharyngeal cancer (Case [id number] COMPLETE) F-18 FLUORODEOXYGLUCOSE (FDG),PER(NM Detailed) CPT:A9552 Clinical History: Report Status: Verified Date Reported: AUG 01, 2024 Date Verified: AUG 01, 2024 Business Technology Teacher E-Sig:/ES/NATASHA LEIJA Report: PATIENT NAME: ABRAHAM HAWK. CASE #: [id number], [id number]. PROCEDURE: PET/CT study Indication: Nasopharyngeal cancer HISTORY: 68-year-old Male with left nasopharyngeal squamous cell carcinoma, and metastatic left cervical lymph node initially diagnosed 07/27/2023 s/p incomplete radiation and recent Keytruda initiation on 07/13/2024. Past medical history of hepatocellular carcinoma status post TACE (08/05/2022 and 12/01/2022). CT chest showed SHANON cavitary nodule measuring up to 10mm w/ concern for potential metastatic lesion. TECHNIQUE: 8.85 mCi of F-18 FDG by IV in the right antecubital fossa. PET/CT image acquisition from the vertex to mid thigh. After approximately 60 minutes postinjection with a CT being low dose, noncontrast. No separate report for the CT was generated since it was used for localization and attenuation correction. Blood glucose level of the time of injection was 101 mg/DL. SUV calculation was based on body weight. Comparison made to prior PET/CT dated 04/23/2024. FINDINGS: For reference, SUV max of liver is 3.0, previously 2.9. HEAD AND NECK: The brain demonstrates physiologic activity. MRI is better for parenchymal evaluation if clinically warranted. There is interval increase in size of metabolic activity of the previously seen left nasopharyngeal hypermetabolic soft tissue mass SUV max currently 9.2, previously 7.1. Extension through the skull base on the left side and sphenoid sinus with heterogenous FDG activity difficult to be evaluated due to elevated background activity of the brain. There is interval increase in size/metabolic activity at the FDG avid lymphadenopathy on left level 2A SUV max of 12.3, previously 11.8. Redemonstrated increased activity within the lateral pterygoid/masseter muscle with SUV max 4.6, previously 5.2 is indeterminate if related to strain versus disease site. Left mastoid air cells are opacified without focal abnormal radiotracer activity unchanged from prior. CHEST: New pulmonary nodule in the left upper lobe SUV max 2.8 measuring about 0.9 cm. Right middle lobe with mild radiotracer activity in the base with underlying linear densities with SUV max 1.4 new from prior. No significant FDG activity on right upper lobe cluster of small nodules in close proximity to oblique fissure. Redemonstration of multiple pulmonary nodules in the left lingula showing mild FDG activity SUV max up to 1.2, similar to prior. No pericardial effusion is identified. Trace to small amount of left pleural effusion without focal abnormal activity. Diffuse mild increased activity within the esophagus likely inflammatory. Elevated left hemidiaphragm. Mild increased radiotracer activity in the bilateral hilar region SUV max 2.7 previously 2.4 on the right side, left hilum with SUV max 3.0, previously 2.4 are nonspecific. Mild radiotracer activity SUV max 2.4, previously 1.9 fusing into small lymph node in the left prevascular region. ABDOMEN AND PELVIS: Posttreatment changes within the liver without focal abnormal FDG activity, respiratory motion partially degrades images on the upper liver/spleen. Redemonstrated splenomegaly without significant change prior study. There is interval increase in amount of intraperitoneal fluid without abnormal focal FDG activity. Pancreas, and adrenals glands appear grossly unremarkable. Heterogenous increased bowel activity is limiting evaluation. Diverticulosis without diverticulitis. Prostate gland is unremarkable. No hypermetabolic abdominal or pelvic lymphadenopathy is noted. Grossly unchanged photopenic cystic structure on the right groin with no abnormal FDG avid lymphadenopathy in the inguinal regions. MUSCULOSKELETAL: There is no abnormal FDG avid sclerotic or lytic osseous lesion is noted within the [id number]. Impression: 1. The previous sites of FDG avid disease within left nasopharyngeal mass, hypermetabolic left cervical nodes, and skull base show interval increase in size activity suggesting disease progression. Intracranial extension cannot be excluded. 2. New hypermetabolic pulmonary nodule in the left upper lobe and new FDG activity/new linear density in the right middle lobe are concerning for primary malignancy versus metastatic disease. 3. Unchanged metabolic activity of the previously seen subcentimeter nodules in the left upper lung lobe and small cluster of pulmonary nodules with mild FDG activity on the right upper lobe are of indeterminate etiology and possibly inflammatory/infectious. 4. No abnormal focal FDG activity within the post treatment changes in the liver. Increased intraperitoneal fluid compared to prior study for clinical correlation. DIAGNOSTIC CODE: 1001 Dictated by Natasha Leija MD (PET/CT fellow). Primary Diagnostic Code: SIGNIFICANT ABNORMALITY, ATTN NEEDED Primary Interpreting Staff: NATASHA LEIJA MD (Business Technology Teacher) /PFT NATASHA LEIJA [facility] Jul 27, 2024 03:41 PM CHEST PORTABLE: ABRAHAM HAWK [id number] -1955 M Exm Date: JUL 27, 2024@15:41 Req Phys: GENDI,WAHIED Pat Loc: [facility]-EMERGENCY DEPT 2ND SHIFT (R Img Loc: -MAIN RADIOLOGY SUITE Service: [address] [address] (Case [id number] COMPLETE) CHEST PORTABLE (RAD Detailed) CPT:50885 Proc Modifiers : Portable Reason for Study: sob Clinical History: Report Status: Verified Date Reported: JUL 27, 2024 Date Verified: JUL 27, 2024 Business Technology Teacher E-Sig:/ES/Sol Abraham MD Report: CASE [id number]. AP portable view chest. COMPARISON: Chest x-ray performed on 06/07/[address] dated 07/17/2024 FINDINGS: 1.3 cm nodular opacity of the peripheral mid left lung (superimposing the inferior left scapula), possibly a nipple shadow. The lungs are well-inflated without focal pneumonia, pleural effusion, nodularity or interstitial changes. The cardiomediastinal contour and pulmonary vascularity are within normal limits. No displaced fracture or pneumothorax. Impression: No focal pneumonia or pleural effusion. Minimal left basilar atelectasis. No CHF. Left upper lobe nodule could be benign or malignant as noted on 07/17/[address] Ongoing follow-up advised. Report dictated by Krystian Sultana D.O. (radiology administrator) Sol Kilgore, have reviewed the images and report and concur with these findings. Primary Interpreting Staff: Sol Abraham MD, Radiologist (Business Technology Teacher) Primary Interpreting Resident: Krystian Sultana D.O., Resident Physician /SOL DHALIWAL [facility] Jul 17, 2024 06:[address] ABD PEL W/CONT & 3D: ABRAHAM HAWK [id number] -1955 M Exm Date: JUL 17, 2024@18:18 Req Phys: CASEY BOONE Loc: 4-C [facility]/07-17-2024@19:47 Img Loc: [facility]-CT IMAGING [facility] Service: [address] [address] (Case [id number] COMPLETE) CT ABDOMEN AND PELVIS W/CONTRAST (CT Detailed) CPT:40532 Contrast Media : Non-ionic Iodinated Reason for Study: septic shock, abd pain Clinical History: Responsible Attending: Nils Attending Contact Number: [phone] Resident Contact Number: Septic shock, Patient with hx of HCC and laryngeal Ca. Unclear source. Allergies listed in CPRS chart: Patient has answered NKA Creatinine:CREATININE 0.75 mg/dL 07/13/2024 12:39 /eGFR: STL EGFR (within one year). CREATININE 0.75 mg/dL (07/13/24 12:39) Wt: 161.2 lb [73.12 kg] (05/11/2024 14:21) History of: Renal failure, chronic or acute renal disease: NO Report Status: Verified Date Reported: JUL 17, 2024 Date Verified: JUL 17, 2024 Business Technology Teacher E-Sig: Report: CT THORAX W/CONT (PE) [PRINTSET], CT ABDOMEN AND PELVIS W/CONTRAST [PRINTSET] Comparison: 03/17/2022, 04/23/2024 Clinical History: RO PE The study [facility] Chest 12 series and 1585 images were subsequently received by the [place] National Teleradiology Program (NTP) for interpretation. Abdomen and pelvis 9 series and 1365 images were subsequently received by the [place] [facility] Teler[facility] (NTP) for interpretation. Total DLP (mGy*cm): 522 FINDINGS: Lungs: 10 x 7 mm left upper lobe nodule with partial cavitary change series 6 image 49. There is also centrilobular nodules with additional cavitary changes and tree-in-bud in the left upper lobe. There is also minimal tree-in-bud opacity in the right middle lobe. No evidence of pleural effusion or pneumothorax. Visualized Portions of Neck and Thoracic Inlet: Unremarkable. Axilla: No lymphadenopathy. Mediastinum: No lymphadenopathy. Heart and great vessels: Coronary and aortic calcification. No pulmonary embolism. No evidence of aortic aneurysm or dissection. The heart size is within normal limits. Bony Structures: Osteopenia. Degenerative changes of the spine. Liver: Heterogeneous nodular liver which may be seen with cirrhosis. 1.6 cm right hepatic lobe hypodense lesion with internal calcification. There are multiple additional smaller hepatic hypodense lesion measuring up to 0.7 cm and the left lateral hepatic lobe. No apparent fatty change. Gallbladder: The gallbladder is distended without inflammatory changes or radiopaque gallstones. Mild intrahepatic duct dilatation. Pancreas: No mass. No ductal dilatation. Spleen: Splenomegaly measuring 14.8 cm in craniocaudal dimension. No focal lesions. Adrenals: No mass or hyperplasia. Kidneys: Normal contour. No stones. No hydronephrosis. Bowel: Gastric wall prominence which may be related to incomplete distention. Colonic diverticulosis without evidence of acute diverticulitis. Aorta: Mild to moderate atherosclerosis. IVC: Unremarkable. Bladder: Unremarkable. Bony Structures: Mild degenerative changes of the spine. Lymph Nodes: Right groin 1.8 x 1.5 cm cystic lesion which likely represents a benign process No significant lymphadenopathy identified. Impression: Left upper lobe cavitary nodules measuring up to 10 mm, and centrilobular and tree-in-bud nodules. There is also minimal tree-in-bud opacity in the right middle lobe. Findings likely represents infectious or inflammatory process with differential including malignancy. Recommend short-term follow-up in 1-2 months to assess for change. No pulmonary embolism. No evidence of aortic aneurysm or dissection. The gallbladder is distended without inflammatory changes or radiopaque gallstones. Mild intrahepatic duct dilatation. Correlate with patient's clinical symptoms and consider ultrasound for further characterization. Cirrhosis with multiple hepatic hypodense lesions better evaluated on the previous MRI from 09/12/2023. READING PHYSICIAN: Guilherme Talbert M.D. -[phone] 07/17/2024 17:44 [facility] National Teleradiology Program [phone] (For Medical Practitioner Use Only) Attention Patients / Veterans: If you have questions or concerns about these test results, please contact your ordering provider or primary care team. Primary Interpreting Staff: RADIOLOGY,OUTSIDE SERVICE, Staff Physician / RADIOLOGY,OUTSIDE SERVICE [facility] Jul 17, 2024 06:[address] PE CHEST W/3D: MARCABRAHAM TRUJILLO [id number] -1955 M Exm Date: JUL 17, 2024@18:17 Req Phys: CASEY BOONE [facility] Loc: 4-C [facility]/07-17-2024@19:47 Img Loc: [facility]-CT IMAGING [facility] Service: Unknown [facility] [address] [place] [address] (Case [id number] COMPLETE) CT THORAX W/CONT (PE) (CT Detailed) CPT:14615 Contrast Media : unspecified contrast media Reason for Study: RO PE Clinical History: Responsible Attending: Nils Attending Contact Number: [phone] Resident Contact Number: Patient with HCC and laryngeal Ca presenting with acute onset SOB, pleuritic CP and hypoxia/tachycardia Allergies listed in CPRS chart: Patient has answered NKA Creatinine: CREATININE 0.75 mg/dL 07/13/2024 12:39 /eGFR: STL EGFR (within one year). CREATININE 0.75 mg/dL (07/13/24 12:39) Wt: 161.2 lb [73.12 kg] (05/11/2024 14:21) History of: Renal failure, chronic or acute renal disease: NO Report Status: Verified Date Reported: JUL 17, 2024 Date Verified: JUL 17, 2024 Business Technology Teacher E-Sig: Report: CT THORAX W/CONT (PE) [PRINTSET], CT ABDOMEN AND PELVIS W/CONTRAST [PRINTSET] Comparison: 03/17/2022, 04/23/2024 Clinical History: RO PE The study was protocoled and supervised at the local [place] facility. Chest 12 series and 1585 images were subsequently received by the [place] T[facility] (NTP) for interpretation. Abdomen and pelvis 9 series and 1365 images were subsequently received by the [place] [facility] Teler[facility] (NTP) for interpretation. Total DLP (mGy*cm): 522 FINDINGS: Lungs: 10 x 7 mm left upper lobe nodule with partial cavitary change series 6 image 49. There is also centrilobular nodules with additional cavitary changes and tree-in-bud in the left upper lobe. There is also minimal tree-in-bud opacity in the right middle lobe. No evidence of pleural effusion or pneumothorax. Visualized Portions of Neck and Thoracic Inlet: Unremarkable. Axilla: No lymphadenopathy. Mediastinum: No lymphadenopathy. Heart and great vessels: Coronary and aortic calcification. No pulmonary embolism. No evidence of aortic aneurysm or dissection. The heart size is within normal limits. Bony Structures: Osteopenia. Degenerative changes of the spine. Liver: Heterogeneous nodular liver which may be seen with cirrhosis. 1.6 cm right hepatic lobe hypodense lesion with internal calcification. There are multiple additional smaller hepatic hypodense lesion measuring up to 0.7 cm and the left lateral hepatic lobe. No apparent fatty change. Gallbladder: The gallbladder is distended without inflammatory changes or radiopaque gallstones. Mild intrahepatic duct dilatation. Pancreas: No mass. No ductal dilatation. Spleen: Splenomegaly measuring 14.8 cm in craniocaudal dimension. No focal lesions. Adrenals: No mass or hyperplasia. Kidneys: Normal contour. No stones. No hydronephrosis. Bowel: Gastric wall prominence which may be related to incomplete distention. Colonic diverticulosis without evidence of acute diverticulitis. Aorta: Mild to moderate atherosclerosis. IVC: Unremarkable. Bladder: Unremarkable. Bony Structures: Mild degenerative changes of the spine. Lymph Nodes: Right groin 1.8 x 1.5 cm cystic lesion which likely represents a benign process No significant lymphadenopathy identified. Impression: Left upper lobe cavitary nodules measuring up to 10 mm, and centrilobular and tree-in-bud nodules. There is also minimal tree-in-bud opacity in the right middle lobe. Findings likely represents infectious or inflammatory process with differential including malignancy. Recommend short-term follow-up in 1-2 months to assess for change. No pulmonary embolism. No evidence of aortic aneurysm or dissection. The gallbladder is distended without inflammatory changes or radiopaque gallstones. Mild intrahepatic duct dilatation. Correlate with patient's clinical symptoms and consider ultrasound for further characterization. Cirrhosis with multiple hepatic hypodense lesions better evaluated on the previous MRI from 09/12/2023. READING PHYSICIAN: Guilherme Talbert M.D. -[phone] 07/17/2024 17:44 [facility] National Teleradiology Program [phone] (For Medical Practitioner Use Only) Attention Patients / Veterans: If you have questions or concerns about these test results, please contact your ordering provider or primary care team. Primary Interpreting Staff: RADIOLOGY,OUTSIDE SERVICE, Staff Physician / RADIOLOGY,OUTSIDE SERVICE [facility] Pathology Reports: +/- 30 days of the encounter Pathology Reports For cases when an order for pathology services may have been completed prior to the date of the Encounter, the report list includes the Pathology Reports that were completed up to 30 days before dateof the Encounter. For cases when an order for pathology services may have been completed after the date of the Encounter, the report list also includes the Pathology Reports that were completed up to30 days after date of the Encounter. The data comes from all [place] treatment facilities. Date/Time Pathology Report Provider Source Aug 16, 2024 09:43 AM LR SURGICAL PATHOL OGLyudmila REPORT: LOCAL TITLE: LR SURGICAL PATHOLOGY REPORT STANDARD TITLE: PATHOLOGY PROCEDURE NOTE DATE OF NOTE: AUG 16, 2024@09:43:26 ENTRY DATE: AUG 16, 2024@09:43:26 AUTHOR: CRISTIANA TEMPLETON EXP COSIGNER: URGENCY: STATUS: COMPLETED $APHDR - - - - - - - - - - - - - - - - - - - - - - - - - - - - - - - - - - - - - - - - MEDICAL RECORD SURGICAL PATHOLOGY - - - - - - - - - - - - - - - - - - - - - - - - - - - - - - - - - - - - - - - - PATHOLOGY REPORT Accession No. SP [id number] - - - - - - - - - - - - - - - - - - - - - - - - - - - - - - - - - - - - - - - - $TEXT Submitted by: JAM SHEFFIELD Date obtained: Aug 14, 2024 13:52 - - - - - - - - - - - - - - - - - - - - - - - - - - - - - - - - - - - - - - - - Specimen (Received Aug 14, 2024 13:54): A. DUODENAL BIOPSY - - - - - - - - - - - - - - - - - - - - - - - - - - - - - - - - - - - - - - - - BRIEF CLINICAL HISTORY: EGD, C/f ICI enteritis. - - - - - - - - - - - - - - - - - - - - - - - - - - - - - - - - - - - - - - - - PREOPERATIVE DIAGNOSIS: EGD, C/f ICI enteritis. - - - - - - - - - - - - - - - - - - - - - - - - - - - - - - - - - - - - - - - - OPERATIVE FINDINGS: Jar 1: Duodenal bx - - - - - - - - - - - - - - - - - - - - - - - - - - - - - - - - - - - - - - - - POSTOPERATIVE DIAGNOSIS: Jar 1: Duodenal bx Surgeon/physician: VIRGINIA DAVIS MD =-=-=-=-=-=-=-=-=-=-=-=-=-= -=-=-=-=-=-=-=-=-=-=-=-=-=- =-=-=-=-=-=-=-=-=-=-=-=-= - - - - - - - - - - - - - - - - - - - - - - - - - - - - - - - - - - - - - - - - PATHOLOGY REPORT Accession No. SP [id number] - - - - - - - - - - - - - - - - - - - - - - - - - - - - - - - - - - - - - - - - GROSS DESCRIPTION: Hazel Barclay, 08/14/2024 Received in formalin in a container labeled with the patient's full name, SSN, and Duodenal Biopsy are three harkins tissue fragments measuring from 0.2 to 0.4 cm in greatest dimension and 0.5 x 0.4 x 0.2 cm in aggregate, which are submitted in toto in A1. MICROSCOPIC EXAM: Cristiana Templeton MD 08/16/2024 The microscopic review of H&E sections from duodenal biopsy shows ulceration, mild to moderate chronic active inflammation, pyloric metaplasia and reactive changes. There is no evidence of dysplasia. The differential diagnoses include infection, peptic ulcer, ischemia, medication induced injury and/or inflammatory bowel disease. Clinical correlation is required. DIAGNOSIS: SMALL INTESTINE, DUODENUM, BIOPSY (A): - ULCERATION WITH CHRONIC ACTIVE INFLAMMATION - NEGATIVE FOR DYSPLASIA OR MALIGNANCY - SEE JONEL /loly/ CRISTIANA TEMPLETON Pathologist Signed Aug 16, 2024@09:43 Performing Laboratory: Surgical Pathology Report Performed By: [facility] [address] [place] [address] CLIA# [id number] [address] [place] [phone] $FTR - - - - - - - - - - - - - - - - - - - - - - - - - - - - - - - - - - - - - - - - (End of report) CRISTIANA TEMPLETON MD aq Date Aug 16, 2024 - - - - - - - - - - - - - - - - - - - - - - - - - - - - - - - - - - - - - - - - ABRAHAM [facility]WK STANDARD FORM 515 ID:[id number] SEX:M :1955 AGE: 68 LOC:APFEE PCP: Deirdre Wild /loly/ CRISTIANA TEMPLETON Pathologist Signed: 08/16/2024 09:43 CRISTIANA TEMPLETON [facility] Aug 11, 2024 06:00 AM LR MICROBIOLOGY RE PORT: Accession [UID]: [id number] [[id number]] Received: Aug 11, 2024@06:19 Collection sample: B D BLD. BOTTLE Collection date: Aug 11, 2024 06:00 Site/Specimen: BLOOD Provider: GILSON OG Test(s) ordered: BLOOD CULT (SET 1)............ completed: Aug 17, 2024 10:06 * BACTERIOLOGY FINAL REPORT => Aug 17, 2024 10:22 TECH CODE: [id number] Bacteriology Remark(s): 2 KAReg Culture shows NO GROWTH IN 6 DAYS =--=--=--=--=--=--=--=--=-- =--=--=--=--=--=--=--=--=-- =--=--=--=--=--=--=--=-- Performing Laboratory: Bacteriology Report [facility]: [facility] CLIA# [id number] [id number] [place] [address] JULISSA BROWN [facility] Jul 17, 2024 05:10 PM LR MICROBIOLOGY RE PORT: Accession [UID]: [id number] [[id number]] Received: Jul 17, 2024@17:30 Collection sample: B D BLD. BOTTLE (SET 2)Collection date: Jul 17, 2024 17:10 Site/Specimen: BLOOD Provider: CASEY BOONE Test(s) ordered: BLOOD CULT (SET 2)............ completed: Jul 23, 2024 14:26 * BACTERIOLOGY FINAL REPORT => Jul 23, 2024 14:28 TECH CODE: [id number] Bacteriology Remark(s): CULTURE IS NEGATIVE TO DATE, ALL POSITIVES ARE ROUTINELY CALLED. KI Culture shows NO GROWTH IN 6 DAYS. 07/23/24 KI =--=--=--=--=--=--=--=--=-- =--=--=--=--=--=--=--=--=-- =--=--=--=--=--=--=--=-- Performing Laboratory: Bacteriology Report Performed By: [address] CLIA# [id number] [address] [place] [phone] JULISSA BROWN [facility] Jul 17, 2024 05:10 PM LR MICROBIOLOGY RE PORT: Accession [UID]: [id number] [[id number]] Received: Jul 17, 2024@17:30 Collection sample: B D BLD. BOTTLE Collection date: Jul 17, 2024 17:10 Site/Specimen: BLOOD Provider: CASEY BOONE Test(s) ordered: BLOOD CULT (SET 1)............ completed: Jul 23, 2024 14:26 * BACTERIOLOGY FINAL REPORT => Jul 23, 2024 14:28 TECH CODE: [id number] Bacteriology Remark(s): CULTURE IS NEGATIVE TO DATE, ALL POSITIVES ARE ROUTINELY CALLED. KI Culture shows NO GROWTH IN 6 DAYS. 07/23/24 KI =--=--=--=--=--=--=--=--=-- =--=--=--=--=--=--=--=--=-- =--=--=--=--=--=--=--=-- Performing Laboratory: Bacteriology Report Performed By: [address] CLIA# [id number] [address] [place] [phone] JULISSA BROWN [facility] Encounter Notes: All associated encounter notes This section contains the clinical notes associated to the Encounter. 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 pt has a history of nasal pharyngeal cancer. pt reports nausea and dark diarrhea stools this week. pt taking meds to help with diarrhea, but still feels sick. Level of Consciousness (AVPU): Alert = Appears aware of and responsive to the environment on their own. Follows commands, opens eyes spontaneously, and tracks objects. Vital Signs: Temperature 97.8 F (36.6 C) Pulse 80 Respirations 18 Blood Pressure 125/78 Pulse Oximetry 97 Room Air Pain: No pain Pain Score: 7 Suicide Screen: Saunders Suicide Severity Rating Scale (C-SSRS) screener 1. Over the past month, have you wished you were or wished you could go to sleep and not wake up? No 2. Over the past month, have you had any actual thoughts of killing yourself? No 3. Over the past month, have you been thinking about how you might do this? Response not required due to responses to other questions. 4. Over the past month, have you had these thoughts and had some intention of acting on them? Response not required due to responses to other questions. 5. Over the past month, have you started to work out or worked out the details of how to kill yourself? Response not required due to responses to other questions. 6. If yes, at any time in the past month did you intend to carry out this plan? Response not required due to responses to other questions. 7. In your lifetime, have you ever done anything, started to do anything, or prepared to do anything to end your life (for example, collected pills, obtained a gun, gave away valuables, went to the roof but didn't jump)? No 8. If YES, was this within the past 3 months? Response not required due to responses to other questions. 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 Pt attached to BP and pulse oximetry monitoring. 1408 20# IV inserted in right forearm. Blood drawn and sent to lab. [address] via stretcher. 1530 PT resting comfortably, awaiting bed placement. Blood Pressure: 129/74 Pulse: 74 Pulse Oximetry: 98% 1653 PT report given to Adri Gonzales. /es/ SOSA BEDOYA RN BSN REGISTERED NURSE Signed: 08/10/2024 16:54 08/10/2024 ADDENDUM STATUS: COMPLETED 1749 Pt transported to 6MICU via stretcher. /loly/ SOSA BEDOYA RN BSN REGISTERED NURSE Signed: 08/10/2024 17:50 GONZALO PERDOMO [facility]
--- OUTSIDE RECORDS SUMMARY | 2024-10-08 17:06 | XMS_ITS | Encounter Summary ---
Author Name [facility] Address [address] [place] [address] Care Team Providers Care Pesticide Control Inspector Name Role Phone SUKHJINDER CHAHAL Primary Care [...] SUPPL EMENT Nov 25, 2021 PLAN G [id number] [phone] ELLEN HAWK VID PATIENT AARP MED SUPP MEDIGAP PLAN G MEDIC ARE SUPPL EMENT Nov 25, 2021 PLAN G [id number] [phone] ELLEN HAWK VID PATIENT MEDICARE (WNR) MEDICARE (M) PART B Sep 25, 2021 PART B [id number] [phone] ELLEN HAWK VID PATIENT MEDICARE (WNR) MEDICARE (M) PART A Aug 25, 2021 PART A [id number] ELLEN HAWK PATIENT Selected Encounter This section includes the information on record at [place] for the Encounter. Date/Time Encounter Type Encounter Description Reason Pro vider Source Sep 14, 2024 02:57 PM Outpatient Encounter COMMUNITY CARE CONSULT I[facility] Encounter Template Text not used by [place] Plan of Treatment: Future Appointments (+ 6 months) and Future Tests (+/- 45 days) The Plan of Treatment section includes future care activities for the patient from [facility] This section includes future appointments and future orders which are active, pending or scheduled. Future Appointments This section includes appointments that were scheduled to occur 6 months from the date of the Encounter, up to a maximum of 20 appointments. The data comes from all [facility]. Appointment Date/Time Appointment Type Appointme nt Facility Name Oct 15, 2024 03:00 PM AMBULATORY - SUR[facility]ERY [facility] Oct 19, 2024 02:00 PM AMBULATORY - NONE [facility] Active, Pending, and Scheduled Orders This section includes a listing of several types of active, pending, and scheduled orders, including clinic medications orders, diagnostic test orders, procedure orders and consult orders; where the start date of the order is 45 days before the date of the Encounter or 45 days after the date of theEncounter. The data comes from all [facility]. Test Date/Time Test Type Test Details Facility Name Aug 10, 2024 12:00 AM Laboratory - Blood Bank Order RED BLOOD CELLS - LAB VBECS - NO SPECIMEN REQUIRED JOANN SP [facility] Aug 10, 2024 02:00 PM Laboratory - Blood Bank Order TYPE & SCREEN - LAB BLOOD [facility] Aug 10, 2024 05:43 PM Laboratory - Chemistry Order LIPASE GREEN LI/HEP BLD/PLAS PLASMA STAT I ONCE [facility] Aug 10, 2024 05:44 PM Laboratory - Microbiology Order BLOOD CULT (SET 2) B D BLD. BOTTLE (SET 2) BLOOD JOANN I NOW [facility] Aug 11, 2024 02:00 AM Laboratory - Chemistry Order CBC BLOOD [facility] Aug 14, 2024 02:00 AM Laboratory - Chemistry Order CBC BLOOD [facility] Aug 15, 2024 02:00 AM Laboratory - Chemistry Order CBC BLOOD [facility] Aug 16, 2024 12:00 AM Laboratory - Chemistry Order CBC BLOOD SP [facility] Aug 16, 2024 08:00 PM Laboratory - Chemistry Order CBC BLOOD LC [facility] Aug 17, 2024 08:00 PM Laboratory - Chemistry Order CBC BLOOD LC [facility] Sep 27, 2024 12:00 AM Laboratory - Chemistry Order CBC BLOOD SP [facility] Sep 27, 2024 12:00 AM Laboratory - Chemistry Order COMPREHENSIVE METABOLIC PANEL GREEN LI/HEP BLD/PLAS PLASMA SP [facility] Oct 19, 2024 12:00 AM Imaging - Magnetic Resonance Imaging (MRI) Order MRI ABDOMEN W/O&W CONT [facility] Lab Results: +/- 30 days of the [...] Type Comment Sep 07, 2024 12:[address] [facility] COMPREHENSIVE METABOLIC PANEL PLASMA Specimen Type: PLASMA Comment: No hemolysis noted. Ordering Provider: TONY SIMMONS Report Released Date/Time: Aug 31, 2024 02:42 PM Reporting Lab: [place] [address] [facility] [address] Performing Lab: [address] [address] CREATININE 0.87 mg/dL 0.7-1.3 UREA NITROGEN 24.5 [...] 94.0 >60 Sep 07, 2024 12:39 PM [facility] CBC BLOOD Specimen Type: BLOOD No comment entered. Ordering Provider: TONY SIMMONS Report Released Date/Time: Aug 31, 2024 02:42 PM Reporting Lab: [address] [address] Performing Lab: [address] [address] WBC 5.1 10*3/uL 3.6-11.2 RBC 3.44 10*6/uL [...] 10*3/uL 2.10-8.00 Sep 07, 2024 12:[address] [facility] ALPHA-FETOPROTEIN(STL-PB) SERUM Specimen Type : SERUM No comment entered. Ordering Provider: DANIELLE ORTEGA Report Released Date/Time: Sep 07, 2024 11:59 AM Reporting Lab: [address] [address] Performing Lab: [address] [address] ALPHA-FETOPROTEIN(STL-PB) 15.01 ng/mL H 1- 8.78 Aug 31, 2024 02:[address] [facility] COMPREHENSIVE METABOLIC PANEL PLASMA Specimen Type: PLASMA Comment: No hemolysis noted. Ordering Provider: TONY SIMMONS Report Released Date/Time: Aug 27, 2024 12:35 PM Reporting Lab: [address] [address] Performing Lab: [address] [address] CREATININE 0.90 mg/dL 0.7-1.3 UREA NITROGEN 26.4 [...] 93.6 >60 Aug 31, 2024 02:04 PM [facility] CBC BLOOD Specimen Type: BLOOD No comment entered. Ordering Provider: TONY SIMMONS Report Released Date/Time: Aug 27, 2024 12:35 PM Reporting Lab: [address] [address] Performing Lab: [address] [address] WBC 4.7 10*3/uL 3.6-11.2 RBC 3.54 10*6/uL [...] 10*3/uL 2.10-8.00 Aug 17, 2024 03:[address] [facility] TSH W/ REFLEX FT4 (STL) PLASMA Specimen Type: PLASMA No comment entered. Ordering Provider: TONY SIMMONS Report Released Date/Time: Aug 10, 2024 12:01 PM Reporting Lab: [address] [address] Performing Lab: [address] [address] TSH 4.570 u[IU]/mL 0.47-5 Aug 17, 2024 03:[address] [facility] COMPREHENSIVE METABOLIC PANEL PLASMA Specimen Type: PLASMA Comment: No hemolysis noted. Ordering Provider: TONY SIMMONS Report Released Date/Time: Aug 10, 2024 12:01 PM Reporting Lab: [address] [address] Performing Lab: [address] [address] CREATININE 0.85 mg/dL 0.7-1.3 UREA NITROGEN 11.5 [...] 95.2 >60 Aug 17, 2024 03:[address] [facility] CBC BLOOD Specimen Type: BLOOD Comment: No Clots Ordering Provider: TONY SIMMONS Report Released Date/Time: Aug 10, 2024 12:01 PM Reporting Lab: [facility] [address] [facility] [address] Performing Lab: [address] [address] WBC 5.0 10*3/uL 3.6-11.2 RBC 2.83 10*6/uL [...] 0.00-0. [address]ATURE [address]T FRACTION 4.9 1.0-7.0 Social History: Smoking Status (Most current) and [...] 04:02 PM ORYX ADMIT TOBACCO SCREEN NO [facility] Tobacco Use History This section includes a history of the smoking, or tobacco-related health factors, that were collected on or before the date of the Encounter. The data comes from the [place] facility where the Encounter took place. Date/Time Smoking Status/Tobacco Use Comment F acility Jan 20, 2023 03:49 PM VA-TOBACCO FORMER USER [facility] Jan 20, 2023 03:49 PM VA-TOBACCO QUIT [address] [facility] Feb 06, 2021 04:28 PM VA-TOBACCO FORMER USER [facility] Feb 06, 2021 04:28 PM VA-TOBACCO QUIT [address] [facility] Radiology Reports: +/- 30 days of the [...] 23, 2024 12:12 PM US BLOOD FLOW ABD/ RENAL DOPPLER (COMPLETE): ABRAHAM HAWKR [id number] -1955 M Exm Date: AUG 23, 2024@12:12 Req Phys: GILSON OG Loc: [facility]-GEN MED INPT VISIT (Req'g L Img Loc: [facility]ULTRASOUND [facility] Service: [facility], [facility] [address] [place] [address] (Case [id number] COMPLETE) US BLOOD FLOW ABD/RENAL DOPPLER ((US Detailed) CPT:58227 Reason for Study: dopplers Clinical History: Report Status: Verified Date Reported: AUG 23, 2024 Date Verified: AUG 23, 2024 Nurse First Assist E-Sig:/ES/PETROS VENCES Report: Case [id number], [id number]. US ABDOMEN LTD, SINGLE ORG OR QUADRANT, [...] Patent hepatic vasculature. Primary Interpreting Staff: PETROS VENCES MD (Nurse First Assist) /PETROS SRIVASTAVA [facility] Aug 23, 2024 12:12 PM US ABDOMEN LTD, SI NGLE ORG OR QUADRANT: ABRAHAM HAWK [id number] -1955 M Exm Date: AUG 23, 2024@12:12 Req Phys: GILSON OG Pat Loc: [facility]-GEN MED INPT VISIT (Req'g L Img Loc: [facility] Service: Unknown [facility], [address] [address] [place] [address] (Case [id number] COMPLETE) US ABDOMEN LTD, SINGLE ORG OR CARLITOS(US Detailed) CPT:02029 Reason for Study: Possible SBP, RUQUS with dopplers, please comment on ascites? Clinical History: Report Status: Verified Date Reported: AUG 23, 2024 Date Verified: AUG 23, 2024 Nurse First Assist E-Sig:/ES/PETROS VENCES Report: Case [id number], [id number]. US ABDOMEN LTD, SINGLE ORG OR QUADRANT, [...] Patent hepatic vasculature. Primary Interpreting Staff: PETROS VENCES MD (Nurse First Assist) /PETROS SRIVASTAVA [facility] Pathology Reports: +/- 30 days [...] the Encounter. The data comes from all [facility] facilities. Date/Time Pathology Report Provider Source Aug 16, 2024 09:43 AM LR SURGICAL PATHOL OGY REPORT: LOCAL TITLE: LR SURGICAL PATHOLOGY REPORT STANDARD TITLE: PATHOLOGY PROCEDURE NOTE DATE OF NOTE: AUG 16, 2024@09:43:26 ENTRY DATE: AUG 16, 2024@09:43:26 AUTHOR: CRISTIANA TEMPLETON COSIGNER: URGENCY: STATUS: COMPLETED $APHDR - - [...] NEGATIVE FOR DYSPLASIA OR MALIGNANCY - SEE DESCRIPTION /es/ CRISTIANA TEMPLETON Pathologist Signed Aug 16, 2024@09:43 Performing Laboratory: Surgical Pathology Report Performed By: [facility], [facility] [address] [place], [place] [address]IA# [id number] [facility] [address] [place] [address] $FTR - - - - - - [...] - - ABRAHAM HAWK STANDARD FORM 515 ID:[id number] SEX:M :1955 AGE: 68 LOC:APFEE PCP: Eduardo Marmolejo /loly/ CRISTIANA TEMPLETON Pathologist Signed: 08/16/2024 09:43 CRISTIANA TEMPLETON [facility] Encounter Notes: All associated encounter notes This section contains the clinical notes associated to the Encounter. Date/Time Encounter Note(s) Provider Source Sep 14, 2024 03:26 PM ADDENDUM: LOCAL TITLE: Addendum STANDARD TITLE: ADDENDUM DATE OF NOTE: SEP 14, 2024@15:26:10 ENTRY DATE: SEP 14, 2024@15:26:11 AUTHOR: DANIELLE ORTEGA COSIGNER: URGENCY: STATUS: COMPLETED Patient is established with GI at [place]. Pt was originally referred to Hepatology at [facility] after we did workup for liver transplant, referred for possible listing. He had been erroneously arranged for f/u with DR. Wheeler (by [facility] providers) after he was delisted from liver txp. He has Hepatology care at the [place] & does not require further care with [facility] GI. /loly/ Danielle Ortega PA-C Physician Technical Aide - Gastroenterology Signed: 09/14/2024 15:29 Receipt Acknowledged By: 09/14/2024 15:34 /loly/ AMY PA-[place] NURSE PRACTITIONER * AWAITING SIGNATURE * DION RAMIREZ M --- Original Document --- 09/14/24 COMMUNITY CARE-REQUEST FOR SERVICE NOTE STL: Request for Services (RFS) documentation has been sent for scanning to [facility] Consult: COMMUNITY CARE-gi general Consult No: [id number] Date sent to scanning: Aug A Request for Service (RFS) form [id number] has been received which includes the following: Care Requested:COnt of care ICD-10 Dx code: C22.0 Date [facility] received request: Aug Date service required: Aug Requesting [facility] Provider Information: [facility] GASTRO COMPREHENSIVE [address] [place], [address] P: [phone] KEVIN F:[phone] REF FAX: [phone] (ATTN JAOQUÍN) DR AURA WHEELER /es/ DION RAMIREZ RN REGISTERED NURSE Signed: 09/14/2024 14:59 Receipt Acknowledged By: 09/14/2024 15:08 /es/ AMY PA-[place] NURSE PRACTITIONER 09/14/2024 15:29 /es/ Danielle Ortega PA-C Physician Technical Aide - Gastroenterology DANIELLE ORTEGA [facility] Sep 14, 2024 02:57 PM NONVA NOTE: LOCAL TITLE: COMMUNITY CARE-REQUEST FOR SERVICE NOTE STL STANDARD TITLE: NONVA NOTE DATE OF NOTE: SEP 14, 2024@14:57 ENTRY DATE: SEP 14, 2024@14:57:16 AUTHOR: DION RAMIREZ EXP COSIGNER: URGENCY: STATUS: COMPLETED COMMUNITY CARE-REQUEST FOR SERVICE NOTE STL Has ADDENDA Request for Services (RFS) documentation has been sent for scanning to [facility] Consult: COMMUNITY CARE-gi general Consult No: [id number] Date sent to scanning: Aug A Request for Service (RFS) form [id number] has been received which includes the following: Care Requested:COnt of care ICD-10 Dx code: C22.0 Date [facility] received request: Aug Date service required: Aug Requesting [facility] Provider Information: [facility] [address] [place], [address] P: [phone] KEVIN F:[phone] REF FAX: [phone] (ATTN JOAQUÍN) DR AURA WHEELER /loly/ DION RAMIREZ RN REGISTERED NURSE Signed: 09/14/2024 14:59 Receipt Acknowledged By: 09/14/2024 15:08 /loly/ MAYA PA NURSE PRACTITIONER 09/14/2024 15:29 /loly/ Danielle Ortega PA-C Physician Technical Aide - Gastroenterology 09/14/2024 ADDENDUM STATUS: COMPLETED Patient is established with GI at [place]. Pt was originally referred to Hepatology at [facility] after we did workup for liver transplant, referred for possible listing. He had been erroneously arranged for f/u with DR. Wheeler (by [facility] providers) after he was delisted from liver txp. He has [place]ology care at the [place] & does not require further care with [facility] GI. /loly/ Danielle Ortega PA-C Physician Technical Aide - Gastroenterology Signed: 09/14/2024 15:29 Receipt Acknowledged By: 09/14/2024 15:34 /loly/ MAYA PA NURSE PRACTITIONER * AWAITING SIGNATURE * DION RAMIREZ ROSE M [facility]
--- OUTSIDE RECORDS SUMMARY | 2024-10-08 17:06 | XMS_ITS | Continuity of Care Document ---
Author Organization [facility] Address [address] [place] [address] [place] [address] Phone Care Team Providers Care Pool Coordinator Name Role Phone Derrell Barrow MD Unavailable Unavailable Allergies, Adverse Reactions, Alerts Substance Reaction Status Criticality No Known Allergies Active No Inform ation Medications Medication Instructions Dosage Effective Dates (start - stop) Status Comments Adderall 20 mg tablet take 1 tablet by oral route 2 times every day 20 MG - Active tramadol 50 mg tablet take 1 tablet by oral route 2 times every day as needed as needed 50 MG - Active PRN for pain, avoid driving or operate machines Coreg 12.5 mg tablet take 0.5 tablet [...] Providers Copied on Encounter OFFICE/OUTPA TIENT VISIT, [facility], [address] [place], [place], [address], tel:[phone] [facility] physical (chief complaint) Encounter for general adult medical exam w abnormal findingsChronic pain syndromeAttention deficitEsophageal varices without bleedingLiver cell carcinoma 5 Danial Dove. [address] [place], [address] , [place]. tel:[phone] OFFICE/OUTPA TIENT VISIT, [facility], [address], [place], [place], [address], tel:[phone] [facility] pain (chief complaint)AD D (chief complaint)CA (chief complaint) Chronic pain syndromeAttention deficitLiver cell carcinomaMalignan t neoplasm of nasopharynx, unspecified 4 Danial Dove. [address], [place], [place], [address] , [place]. tel:[phone] OFFICE/OUTPA TIENT VISIT, [facility], [address], [place], [place], [address], [place] tel:[phone] [facility] pain (chief complaint)AD D (chief complaint) Chronic pain syndromeAttention deficit 4 Barrow Derrell. [address], [place], [place], [address] , [place]. tel:[phone] OFFICE/OUTPA TIENT VISIT, [facility], [address], [place], [place], [address], [place] tel:[phone] [facility] Medicine pain (chief complaint)AD D (chief complaint) Attention deficitChronic pain syndrome 4 Danial Dove. [address], [place], [place], [address] , [place]. tel:[phone] OFFICE/OUTPA TIENT VISIT, [facility], [address], [place], [place], [address], [place] tel:[phone] [facility] pain (chief complaint)AD D (chief complaint)li red (chief complaint) Attention deficitChronic pain syndromeLiver cell carcinoma 4 Danial Dove. [address], [place], [place], [address] , [place]. tel:[phone] OFFICE/OUTPA TIENT VISIT, [facility], [address], [place], [place], [address], [place] tel:[phone] [facility] Medicine pain (chief complaint)AD D (chief complaint)CA (chief complaint)EG D1 (chief complaint) Attention deficitChronic pain syndromeLiver cell carcinomaMalignan t neoplasm of nasopharynx, unspecifiedEsopha geal varices without bleeding 4 Barrow Derrell. [address], [place], [place], [address] , [place]. tel:[phone] OFFICE/OUTPA TIENT VISIT, [facility], [address] [place], [address], [place] tel:[phone] [facility] pain (chief complaint)AD D (chief complaint)li red mass1 (chief complaint) Liver cell carcinomaAttentio n deficitChronic pain syndromeMalignant neoplasm of nasopharynx, unspecified 4 Barrow Derrell. [address], [place], [place], [address] , [place]. tel:[phone] OFFICE/OUTPA TIENT VISIT, [facility], [address] [place], [address], [place] tel:[phone] [facility] nausea1 (chief complaint) Malignant neoplasm of nasopharynx, unspecifiedHemate mesisAnemiaThromb ocytopeniaNausea w/ vomiting 4 Barrow Derrell. [address], [address], [place], [place], [address] , [place]. tel:[phone] OFFICE/OUTPA TIENT VISIT, [facility], [address] [place], [address], [place] tel:[phone] [facility] ADD (chief complaint)pa in (chief complaint)na darrell CA (chief complaint)li red mass (chief complaint) Chronic pain syndromeAttention deficitMalignant neoplasm of nasopharynx, unspecifiedLiver cell carcinoma 4 Barrow Derrell. [address], [place], [place], [address] , [place]. tel:[phone] OFFICE/OUTPA TIENT VISIT, [facility], [address] [place], [address], tel:[phone] [facility] ADD (chief complaint)pa in (chief complaint)na darrell Ca (chief complaint) Attention deficitChronic pain syndromeNasal polyp 4 Barrow Derrell. [address], [place], [place], [address] , [place]. tel:[phone] OFFICE/OUTPA TIENT VISIT, [facility], [address], [place], [place], [address], [place] tel:[phone] [facility] ADD (chief complaint)pa in (chief complaint)na darrell polyp1 (chief complaint)va rices1 (chief complaint)HT N (chief complaint) Esophageal varices without bleedingChronic pain syndromeAttention deficitEssential (primary) hypertensionLiver cell carcinoma 4 Danial Dove. [address], [place], [place], [address] , [place]. tel:[phone] OFFICE/OUTPA TIENT VISIT, [facility], [address], [place], [place], [address], [place] tel:[phone] [facility] ADD (chief complaint)pa in (chief complaint)va rices1 (chief complaint)na darrell polyp1 (chief complaint) Attention deficitChronic pain syndromeEsophagea l varices without bleedingCandidal esophagitisNasal polypLiver cell carcinoma 3 Danial Dove. [address], [place], [place], [address] , [place]. [phone] OFFICE/OUTPA TIENT VISIT, [facility], [address], [place], [place], [address], [place] tel:[phone] [facility] ADD (chief complaint)pa in (chief complaint) Chronic pain syndromeAttention deficit Apr- 3 Danial Dove. [address], [address], [place], [place], [address] , [place]. tel:[phone] OFFICE/OUTPA TIENT VISIT, [facility], [address], [place], [place], [address], [place] tel:[phone] [facility] ADD (chief complaint)pa in (chief complaint) Attention deficitChronic pain syndrome Feb- 3 Danial Dove. [address], [address], [place], [place], [address] , [place]. tel:[phone] OFFICE/OUTPA TIENT VISIT, [facility], [address], [place], [place], [address], [place] tel:[phone] [facility] Medicine ADD (chief complaint)pa in (chief complaint)li red cirrhosis1 (chief complaint)GE RD1 (chief complaint) Attention deficitChronic pain syndromeOther cirrhosis of liverEsophageal varices without bleeding 3 Barrow Derrell. [address], [place], [place], [address] , [place]. tel:[phone] OFFICE/OUTPA TIENT VISIT, [facility], [address], [place], [place], [address], [place] tel:[phone] [facility] ADD (chief complaint)pa in (chief complaint)he aring loss1 (chief complaint)ci rrhosis1 (chief complaint) Attention deficitChronic pain syndromeConductiv e hearing loss, bilateralOther cirrhosis of liver 3 Danial Derrell. [address], [place], [place], [address] , [place]. tel:[phone] OFFICE/OUTPA TIENT VISIT, [facility], [address], [place], [place], [address], [place] tel:[phone] [facility] Medicine physical (chief complaint) Encounter for general adult medical exam w abnormal findingsAttention deficitChronic pain syndromeEsophagea l varices without bleedingLiver cell carcinomaOther cirrhosis of liverInguinal hernia 3 Danial Derrell. [address], [place], [place], [address] , [place]. tel:[phone] OFFICE/OUTPA TIENT VISIT, [facility], [address], [place], [place], [address], [place] tel:[phone] [facility] Medicine ADD (chief complaint)pa in (chief complaint)va rices1 (chief complaint) Attention deficitChronic pain syndromeEsophagea l varices without bleeding 3 Barrow Derrell. [address], [place], [place], [address] , [place]. tel:[phone] OFFICE/OUTPA TIENT VISIT, [facility], [address], [place], [place], [address], [place] tel:[phone] [facility] ADD (chief complaint)pa in (chief complaint)HC C (chief complaint) Attention deficitLiver cell carcinomaPalmar fascial fibromatosis [Dupuytren] 3 Barrow Derrell. [address], [place], [place], [address] , [place]. tel:[phone] OFFICE/OUTPA TIENT VISIT, [facility], [address], [place], [place], [address], [place] tel:[phone] [facility] ADD (chief complaint)pa in (chief complaint)li red CA1 (chief complaint)va rices1 (chief complaint) Attention deficitEsophageal varices without bleedingLiver cell carcinomaPalmar fascial fibromatosis [Dupuytren] 3 Barrow Derrell. [address], [place], [place], [address] , [place]. tel:[phone] OFFICE/OUTPA TIENT VISIT, [facility], [address], [place], [place], [address], [place] tel:[phone] [facility] ADD (chief complaint)pa in (chief complaint)HT N (chief complaint)li red CA (chief complaint) Chronic pain syndromeAttention deficitLiver cell carcinomaEssentia l (primary) hypertension 3 Barrow Derrell. [address], [place], [place], [address] , [place]. tel:[phone] OFFICE/OUTPA TIENT VISIT, [facility], [address], [place], [place], [address], [place] tel:[phone] [facility] ADD (chief complaint)pa in (chief complaint) Chronic pain syndromeAttention deficit 2 Barrow Derrell. [address], [place], [place], [address] , [place]. tel:[phone] Referring Provider: Aidan Oviedo [facility], [place], [place], [address]. tel:[phone] OFFICE/OUTPA TIENT VISIT, [facility], [address], [place], [place], [address], [place] tel:[phone] [facility] ADD (chief complaint)edwards nd pain1 (chief complaint)va rices1 (chief complaint)HC C (chief complaint) Attention deficitChronic pain syndromeEsophagea l varices without bleedingLiver cell carcinoma 2 Danial Dove. [address], [place], [place], [address] , [place]. tel:[phone] Referring Provider: Aidan Oviedo [facility], [place], [place], [address]. tel:[phone] OFFICE/OUTPA TIENT VISIT, [facility], [address], [place], [place], [address], [place] tel:[phone] [facility] ADD (chief complaint)pa in (chief complaint) Chronic pain syndromeAttention deficit 2 Danial Dove. [address], [place], [place], [address] , [place]. tel:[phone] Referring Provider: Aidan Oviedo [facility] A, [place], [place], [address]. tel:[phone] OFFICE/OUTPA TIENT VISIT, [facility], [address], [place], [place], [address], [place] tel:[phone] [facility] liver CA (chief complaint)AD D (chief complaint)edwards nd pain1 (chief complaint)saleem ck itch1 (chief complaint) Liver cell carcinomaAttentio n deficitChronic pain syndromeJock itchEsophageal varices without bleeding Feb-0 2 Danial Salcedo [address], [place], [place], [address] , [place]. tel:[phone] Referring Provider: Aidan Oviedo [address], [place], [place], [address]. tel:[phone] OFFICE/OUTPA TIENT VISIT, [facility], [address], [place], [place], [address], [place] tel:[phone] [facility] ADD (chief complaint)pa in1 (chief complaint)li red cancer (chief complaint) Liver cell carcinoma 2 Danial Dove. [address], [place], [place], [address] , [place]. tel:[phone] Referring Provider: Aidan Oviedo [address], [place], [place], [address]. tel:[phone] OFFICE/OUTPA TIENT VISIT, [facility], [address], [place], [place], [address], [place] tel:[phone] [facility] ADD (chief complaint)pa in (chief complaint) Chronic pain syndromeAttention deficit 2 Danial Dove. [address], [place], [place], [address] , [place]. tel:[phone] Referring Provider: Aidan Oviedo [address], [place], [place], [address]. tel:[phone] OFFICE/OUTPA TIENT VISIT, [facility], [address], [place], [place], [address], [place] tel:[phone] [facility] ADD (chief complaint)pa in (chief complaint)li red nodule1 (chief complaint) Attention deficitChronic pain syndromeOther specified diseases of liver 2 Danial Dove. [address], [place], [place], [address] , [place]. tel:[phone] Referring Provider: Aidan Oviedo [address], [place], [place], [address]. tel:[phone] OFFICE/OUTPA TIENT VISIT, [facility], [address], [place], [place], [address], [place] tel:[phone] [facility] ADD (chief complaint)pa in (chief complaint) Attention deficitChronic pain syndrome Leandro-0 2 Danial Dove. [address], [place], [place], [address] , [place]. [phone] Referring Provider: Aidan Oviedo [address], [place], [place], [address]. tel:[phone] OFFICE/OUTPA TIENT VISIT, [facility], [address], [place], [place], [address], [place] tel:[phone] [facility] ear pain1 (chief complaint) Encounter for general adult medical exam w abnormal findingsChronic pain syndromeAttention deficitGERD w/o esophagitisPortal hypertensionOther cirrhosis of liverEsophageal varicesDiffuse otitis externa, right ear May-0 2 Danial Dove. [address], [place], [place], [address] , [place]. [phone] Referring Provider: Aidan Oviedo [address], [place], [place], [address]. tel:[phone] OFFICE/OUTPA TIENT VISIT, [facility], [address], [place], [place], [address], [place] tel:[phone] [facility] ADD (chief complaint)pa in (chief complaint)li red nodule1 (chief complaint) Attention deficitPalmar fascial fibromatosis [Dupuytren]Liver diseaseEsophageal varices without bleeding Apr-0 2 Danial Dove. [address], [place], [place], [address] , [place]. [phone] Referring Provider: Aidan Oviedo [address], [place], [place], [address]. tel:[phone] OFFICE/OUTPA TIENT VISIT, [facility], [address], [place], [place], [address], [place] tel:[phone] [facility] ADD (chief complaint)pa in (chief complaint) Attention deficitChronic pain syndrome Mar-0 2 Danial Dove. [address], [place], [place], [address] , [place]. [phone] Referring Provider: Aidan Oviedo [address], [place], [place], [address]. tel:[phone] OFFICE/OUTPA TIENT VISIT, [facility], [address], [place], [place], [address], [place] tel:[phone] [facility] ADD (chief complaint)pa in (chief complaint) Attention deficitChronic pain syndrome Fe 2 Danial Dove. [address], [place], [place], [address] , [place]. [phone] Referring Provider: Aidan Oviedo [address], [place], [place], [address]. tel:[phone] OFFICE/OUTPA TIENT VISIT, [facility], [address], [place], [place], [address], [place] tel:[phone] [facility] ADD (chief complaint)pa in (chief complaint) Chronic pain syndromeAttention deficit 2 Danial Dove. [address], [place], [place], [address] , [place]. [phone] Referring Provider: Aidan Oviedo [address], [place], [place], [address]. tel:[phone] OFFICE/OUTPA TIENT VISIT, [facility], [address], [place], [place], [address], [place] tel:[phone] [facility] pain (chief complaint)AD D (chief complaint) Attention deficitChronic pain syndromeEsophagea l varices without bleeding 1 Danial Salcedo [address], [place], [place], [address] , [place]. [phone] Referring Provider: Aidan Oviedo [address], [place], [place], [address]. tel:[phone] OFFICE/OUTPA TIENT VISIT, [facility], [address], [place], [place], [address], [place] tel:[phone] [facility] pain (chief complaint)AD D (chief complaint) Chronic pain syndromeAttention deficitGERD w/o esophagitis 1 Danial Salcedo [address], [place], [place], [address] , [place]. tel:[phone] Referring Provider: Aidan Oviedo [address], [place], [place], [address]. tel:[phone] OFFICE/OUTPA TIENT VISIT, [facility], [address], [place], [place], [address], [place] tel:[phone] [facility] ADD (chief complaint)pa in (chief complaint) Chronic pain syndromeAttention deficit 1 Danial Salcedo [address], [place], [place], [address] , [place]. tel:[phone] Referring Provider: Aidan Oviedo [address], [place], [place], [address]. tel:[phone] OFFICE/OUTPA TIENT VISIT, [facility], [address], [place], [place], [address], [place] tel:[phone] [facility] GERD1 (chief complaint)AD D (chief complaint)pa in (chief complaint) Attention deficitChronic pain syndromeGERD w/o esophagitis 1 Danial Salcedo [address], [place], [place], [address] , [place]. tel:[phone] Referring Provider: Aidan Oviedo [address], [place], [place], [address]. tel:[phone] OFFICE/OUTPA TIENT VISIT, [facility], [address], [place], [place], [address], [place] tel:[phone] [facility] ADD (chief complaint)pa in (chief complaint) Chronic pain syndromeAttention deficit 1 Danial Salcedo [address], [place], [place], [address] , [place]. tel:[phone] Referring Provider: Aidan Oviedo [address], [place], [place], [address]. tel:[phone] OFFICE/OUTPA TIENT VISIT, EST [facility], [address], [place], [place], [address], [place] tel:[phone] [facility] Medicine pain (chief complaint)AD D (chief complaint) Attention deficitChronic pain syndrome 1 Danial Salcedo [address], [place], [place], [address] , [place]. tel:[phone] Referring Provider: Aidan Oviedo [address], [place], [place], [address]. tel:[phone] OFFICE/OUTPA TIENT VISIT, EST [facility], [address], [place], [place], [address], [place] tel:[phone] [facility] Medicine pain (chief complaint)AD D (chief complaint)GE RD1 (chief complaint)he aring loss1 (chief complaint) Attention deficitBilateral hearing lossEsophageal varices without bleedingPalmar fascial fibromatosis [Dupuytren] 1 Danial Sacledo [address], [address], [place], [place], [address] , [place]. tel:[phone] Referring Provider: Aidan Oviedo [address], [place], [place], [address]. tel:[phone] PREV VISIT, EST, AGE 40-64 [facility], [address], [place], [place], [address], [place] tel:[phone] [facility] Medicine physical (chief complaint) Encounter for general adult medical exam w abnormal findingsGERD w/o esophagitisMonocl onal gammopathyBilater al hearing lossAttention deficitChronic pain syndrome Sep-3 1 Danial Salcedo [address], [place], [place], [address] , [place]. tel:[phone] Referring Provider: Aidan Oviedo [address], [place], [place], [address]. tel:[phone] OFFICE/OUTPA TIENT VISIT, [facility], [address], [place], [place], [address], [phone] [facility] ADD (chief complaint)pa in (chief complaint)GE RD1 (chief complaint) Attention deficitChronic pain syndromeGERD w/o esophagitisEsopha geal varices without bleeding Aug-0 1 Danial Salcedo [address], [address], [place], [place], [address] , [place]. tel:[phone] Referring Provider: Aidan Oviedo [address], [place], [place], [address]. tel:[phone] OFFICE/OUTPA TIENT VISIT, [facility], [facility] [address], [place], [place], [address], [place] tel:[phone] [facility] hearing loss1 (chief complaint)an xiety1 (chief complaint)AD D (chief complaint)mo noclonal1 (chief complaint) Attention deficitChronic pain syndromeBilateral hearing lossMonoclonal gammopathy 1 Danial Salcedo [address], [address], [place], [place], [address] , [place]. tel:[phone] Referring Provider: Aidan Oviedo [address], [place], [place], [address]. tel:[phone] OFFICE/OUTPA TIENT VISIT, [facility], [address], [place], [place], [address], [place] [phone] [facility] ADD (chief complaint)edwards nd pain1 (chief complaint)de pression1 (chief complaint)he aring1 (chief complaint)GE RD1 (chief complaint) GERD w/o esophagitisAttent ion deficitChronic pain syndromeDepressio nTinnitus, bilateral 0 Danial Salcedo [address], [place], [place], [address] , [place]. tel:[phone] Referring Provider: Aidan Oviedo [address], [place], [place], [address]. tel:[phone] OFFICE/OUTPA TIENT VISIT, [facility], [address], [place], [place], [address], [place] tel:[phone] [facility] GERD1 (chief complaint)pl atelet1 (chief complaint)AD D (chief complaint)edwards nd pain1 (chief complaint) GERD w/o esophagitisPalmar fascial fibromatosis [Dupuytren]Thromb ocytopeniaHepatit is CAttention deficit 0 Danial Salcedo [address], [place], [place], [address] , [place]. tel:[phone] Referring Provider: Aidan Oviedo [address], [place], [place], [address]. tel:[phone] OFFICE/OUTPA TIENT VISIT, [facility], [address], [place], [place], [address], [place] tel:[phone] [facility] hand pain1 (chief complaint)AD D (chief complaint)li red cirrhosis1 (chief complaint)GE RD1 (chief complaint) Hepatitis CAttention deficitPalmar fascial fibromatosis [Dupuytren]GERD w/o esophagitis 0 Danial Bermudez [address], [place], [place], [address] , [place]. tel:[phone] Referring Provider: Aidan Oviedo [address], [place], [place], [address]. tel:[phone] OFFICE/OUTPA TIENT VISIT, [facility], [address], [place], [place], [address], [place] tel:[phone] [facility] ADD (chief complaint)edwards nd pain1 (chief complaint) Palmar fascial fibromatosis [Dupuytren]Other cirrhosis of liverAttention deficit 0 Danial Salcedo [address], [place], [place], [address] , [place]. tel:[phone] Referring Provider: Aidan Oviedo [facility] [address], [place], [place], [address]. tel:[phone] OFFICE/OUTPA TIENT VISIT, [facility], [address], [place], [place], [address], [place] tel:[phone] [facility] hep C (chief complaint)edwards nd (chief complaint)edwards nd1 (chief complaint)AD D (chief complaint) Hepatitis COther cirrhosis of liverAttention deficitPalmar fascial fibromatosis [Dupuytren] 0 Danial [address]ove. [address] [facility] [address] , [place]. tel:[phone] Referring Provider: Aidan Oviedo [address] [facility] A, [place], [place], [address]. tel:[phone] OFFICE/OUTPA TIENT VISIT, [facility], [address] [place], [address], [place] tel:[phone] [facility] liver cirrhosis1 (chief complaint)GE RD1 (chief complaint)he p C (chief complaint)co ntracture1 (chief complaint)AD D (chief complaint) Hepatitis CGERD w/o esophagitisThromb ocytopeniaAttenti on deficitPalmar fascial fibromatosis [Dupuytren] 0 Danial Salcedo [address], [facility] [place], [address] , [place]. tel:[phone] Referring Provider: Aidan Oviedo [facility], [place], [place], [address]. tel:[phone] OFFICE/OUTPA TIENT VISIT, [facility], [address] [employer] [place], [address], [place] tel:[phone] [facility] platelet1 (chief complaint)bi lirubin1 (chief complaint)LF T1 (chief complaint) ThrombocytopeniaD isorder of bilirubin metabolism, unspecifiedHepati tis C 0 Danial Salcedo [address], [address], [place], [place], [address] , [place]. tel:[phone] Referring Provider: Aidan Oviedo [address], [place], [place], [address]. tel:[phone] OFFICE/OUTPA TIENT VISIT, EST [facility], [address], [place], [place], [address], [place] tel:[phone] [facility] hep C (chief complaint)GE RD1 (chief complaint)ch ronic pain1 (chief complaint) GERD w/o esophagitisChroni c pain syndromeHepatitis C October- 0 Danial Dove. [address], [address], [place], [place], [address] , [place]. tel:[phone] Referring Provider: Aidan Oviedo [address], [place], [place], [address]. tel:[phone] PREV VISIT, EST, AGE 40-64 [facility], [address], [place], [place], [address], [place] tel:[phone] [facility] physical (chief complaint) Encounter for general adult medical exam w abnormal findingsHepatitis CThrombocytopenia Pain in left handAcute follicular conjunctivitis, left eye Apr-2 0 Danial Dove. [address], [address], [place], [place], [address] , [place]. tel:[phone] Referring Provider: Aidan Oviedo [address], [place], [place], [address]. tel:[phone] OFFICE/OUTPA TIENT VISIT, EST [facility], [address], [place], [place], [address], [place] tel:[phone] [facility] finger issue1 (chief complaint)Hp e C (chief complaint) Chronic viral hepatitis CPain in left hand Sep- 9 Danial Dove. [address], [address], [place], [place], [address] , [place]. tel:[phone] Referring Provider: Aidan Oviedo [address], [place], [place], [address]. tel:[phone] OFFICE/OUTPA TIENT VISIT, [facility], [address], [place], [place], [address], [place] tel:[phone] [facility] ADD (chief complaint)ch ronic pain (chief complaint)he p C (chief complaint) Attention deficitLiver disease, unspecifiedChroni c pain syndromeGERD w/o esophagitis 6 Danial Dove. [address], [address], [place], [place], [address] , [place]. [phone] Referring Provider: Aidan Oviedo [facility] [place], [address]. tel:[phone] OFFICE/OUTPA TIENT VISIT, [facility], [address] [place], [address], [place] tel:[phone] [facility] chronic pain1 (chief complaint)AD D1 (chief complaint)he p C (chief complaint) Attention deficitChronic pain syndromeChronic viral hepatitis C 5 Danial Dove. [address] [facility] [place], [address] , [place]. [phone] Referring Provider: Aidan Oviedo [facility], [place], [place], [address]. tel:[phone] OFFICE/OUTPA TIENT VISIT, [facility], [address] [place], [address], [place] tel:[phone] [facility] hepatitis C (chief complaint)ch ronic pain (chief complaint)GE RD (chief complaint) Liver diseaseConstipati onEsophageal reflux 5 Danial Dove. [address], [address], [place], [place], [address] , [place]. tel:[phone] Referring Provider: Aidan Oviedo [facility], [place], [place], [address]. tel:[phone] OFFICE/OUTPA TIENT VISIT, [facility], [address] [place], [address], tel:[phone] [facility] pain (chief complaint)AD D (chief complaint)li red (chief complaint) Attention deficit disorder of childhood without mention of hyperactivityOthe r and unspecified alcohol dependence, episodic drinking behaviorOther chronic pain 0201 5 Danial Dove. [address], [address], [place], [place], [address] , [place]. tel:[phone] Referring Provider: Derrell Barrow, [address], [place], [place], [address]. tel:[phone] OFFICE/OUTPA TIENT VISIT, [facility], [address], [place], [place], [address], [place] tel:[phone] [facility] liver disease (chief complaint)pl atelet (chief complaint)vi tamin D (chief complaint)AD D (chief complaint)An xiety (chief complaint)re ctal bleeding (chief complaint) Unspecified disorder of liverThrombocytop eniaOther and unspecified alcohol dependence, episodic drinking behaviorGeneraliz ed anxiety disorder 5 Danial Dove. [address], [address], [place], [place], [address] , [place]. tel:[phone] Referring Provider: Aidan Oviedo [address], [place], [place], [address]. tel:[phone] OFFICE/OUTPA TIENT VISIT, [facility], [address] [place], [address], [place] tel:[phone] [facility] ADD (chief complaint)ch ronic pain (chief complaint)GE RD (chief complaint) Attention deficit disorder of childhood without mention of hyperactivityCHRO CESAR PAIN NECGERD 3201 5 Danial Dove. [address], [address], [place], [place], [address] , [place]. tel:[phone] Referring Provider: Aidan Oviedo [address], [place], [place], [address]. tel:[phone] OFFICE/OUTPA TIENT VISIT, [facility], [address], [place], [place], [address], [place] tel:[phone] [facility] Medicine chronic pain (chief complaint)AD D (chief complaint)fa tigue (chief complaint)te ndon contraction (chief complaint)GE RD (chief complaint) Hypertension, UnspecifiedFatigu e / MalaiseGERDAttent ion deficit disorder of childhood without mention of hyperactivity Aug-0 5 Danial Dove. [address], [address], [place], [place], [address] , [place]. tel:[phone] Referring Provider: Derrell Barrow, Aidan Pascual [facility], [place], [place], [address]. tel:[phone] OFFICE/OUTPA TIENT VISIT, [facility], [address], [place], [place], [address], [place] tel:[phone] [facility] tendon right hand (chief complaint)ch ronic pain (chief complaint)GE RD (chief complaint) Contracture of tendon (sheath)Attention deficit disorder of childhood without mention of hyperactivityPers onal history of noncompliance with medical treatment, presenting hazards to [facility] 5 Danial Dove. [address], [place], [place], [address] , [place]. tel:[phone] Referring Provider: Aidan Oviedo [facility], [place], [place], [address]. tel:[phone] OFFICE/OUTPA TIENT VISIT, [facility], [address], [place], [place], [address], [place] tel:[phone] [facility] GERD (chief complaint)HT N (chief complaint)AD D (chief complaint)ch ronic pain (chief complaint) GERDAttention deficit disorder of childhood without mention of hyperactivityPain in joint involving multiple sitesHypertension , Unspecified Sep-2 4 Danial Dove. [address], [address], [place], [place], [address] , [place]. [phone] Referring Provider: Aidan Oviedo [facility], [place], [place], [address]. tel:[phone] OFFICE/OUTPA TIENT VISIT, [facility], [address], [place], [place], [address], [place] tel:[phone] [facility] GERD (chief complaint)AD D (chief complaint)he maturia (chief complaint) HEMATURIA NOSGERDAttention deficit disorder of childhood without mention of hyperactivity 4 Danial Dove. [address], [address], [place], [place], [address] , [place]. tel:[phone] Referring Provider: Derrell Barrow, [address], [place], [place], [address]. tel:[phone] OFFICE/OUTPA TIENT VISIT, [facility], [address], [place], [place], [address], [place] tel:[phone] [facility] flank pain (chief complaint) HEMATURIA NOSCalculus of kidneyAbdominal Pain 4 Danial Dove. [address], [address], [place], [place], [address] , [place]. tel:[phone] Referring Provider: Derrell Barrow, [address], [place], [place], [address]. tel:[phone] OFFICE/OUTPA TIENT VISIT, [facility], [address], [place], [place], [address], [place] tel:[phone] [facility] sinus infection (chief complaint) Sinusitis, Acute 4 Danial Dove. [address], [address], [place], [place], [address] , [place]. tel:[phone] Referring Provider: Derrell Barrow [address], [place], [place], [address]. tel:[phone] OFFICE/OUTPA TIENT VISIT, [facility], [address], [place], [place], [address], [place] tel:[phone] [facility] Sinusits (chief complaint)ch ornic pain (chief complaint)AD D (chief complaint)te ndon contraction (chief complaint) Sinusitis, AcuteAttention deficit disorder of childhood without mention of hyperactivityPain in joint involving multiple sitesContracture of tendon (sheath) 4 Danial Dove. [address], [address], [place], [place], [address] , [place]. [phone] Referring Provider: Derrell Barrow, Aidan [facility], [address]. tel:[phone] OFFICE/OUTPA TIENT VISIT, [facility], [address] [place], [address], [place] tel:[phone] [facility] ADD (chief complaint)ch ornic pain (chief complaint) Pain in joint involving multiple sitesAttention deficit disorder of childhood without mention of hyperactivity 4 Danial Salcedo [address], [address], [place], [place], [address] , [place]. [phone] Referring Provider: Aidan Oviedo [facility], [address]. tel:[phone] PREV VISIT, NEW, AGE 40-64 [facility], [address] [place], [address], [place] tel:[phone] [facility] Physical (chief complaint) Dietary surveillance and counselingRoutine Medical ExamRoutine Medical ExamOther specified congenital anomalies of muscle, tendon, fascia, and connective tissueGERDAttenti on deficit disorder of childhood without mention of hyperactivity 4 Danial Salcedo [address], [address] [place], [address] , [place]. [phone] Family History Family Member Type Diagnosis Age At Onset Brother Problem (finding) Alive and well Father Problem (finding) Stroke Mother Problem (finding) Cancer, breast Payers Payer name Insurance type Covered republican ID Authoriza tion(s) [employer] [place] WPS MB [id number] [employer] Secondary CI [id number] Social History Type Description Quantity Date Captured [...] ordered Referral Referred To: Rommel Tapia [address]
[address], [id number] Ordered: Referrals: Allopathic & Osteopathic Physicians : [...] liver carcinoma. Pt is seeing oncologist at [facility] pt will do liver MRI and brain [...] will do radiation and chemo soon by [facility] ADD Patient has ADD. Patient has inattentive [...] polyp1 pt saw ENT joy phipps at [facility] and nasoscope was done which showed a [...] on waiting list for liver transplant by [facility] and [facility] varices1 Pt had EGD last month and [...] pain Pt is seeing liver specialist through [facility] and he is on [facility] liver transplant list. Pt does not have [...] discovered HCC. Pt is seeing GI through [facility] and he will be referred to [facility] for liver transplant. he will do chest Ct via [facility] . ADD Patient has ADD. Patient has [...] jina with liver doctor next week at [facility]. Pt wants referral to 2nd opinion. ADD [...] treated hep C. Pt sees GI at [facility]. Pt had liver ultrasound done recently which [...] C. He is seeing Liver specialist at [facility] now. He is on coreg and omeprazole. [...] any appetite loss. Pt saw psychiatrist at [facility] who recommended wellbutrin for him, which he [...] any appetite loss. Pt saw psychiatrist at [facility] who recommended wellbutrin for him, which he [...] any ear pain Pt went to see [facility] but the prices is too expensive [...] hand pain. Pt has not heard from [facility] plastic yet hep C Pt has hep [...] .pt is seeing GI specialist currently at [facility] Pt just. 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 Pt has jina with liver specialist in December . hep C Pt has hep C. Pt needs colonoscopy. Pt has appointmnt for colonoscopy at [facility] in February Pt did not mention to [...] Mental Status Date Cognitive Assessment Orientation - [place] ed to time, place, person, situation.
--- OUTSIDE RECORDS SUMMARY | 2024-10-08 17:06 | XMS_ITS | Encounter Summary ---
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 Date/Time Encounter Type Encounter Description Reason Pro vider Source Jul 18, 2024 12:38 PM Inpatient Visit ADMIN PAT ACTIVTIES (MASNONCT) MORALES BHATT Encounter Template Text not used by [place] Plan of Treatment: Future Appointments (+ 6 months) and Future Tests (+/- 45 days) The Plan of Treatment section includes future care activities for the patient from all [place] [facility] This section includes future appointments and future orders which are active, pending or scheduled. Future Appointments This section includes appointments that were scheduled to occur 6 months from the date of the Encounter, up to a maximum of 20 appointments. The data comes from all [place] treatment facilities. Appointment Date/Time Appointment Type Appointme nt Facility Name Jul 25, 2024 01:00 PM AMBULATORY - MEDICINE [facility] Jul 26, 2024 10:00 AM AMBULATORY - MEDICINE [facility] Jul 27, 2024 03:14 PM AMBULATORY - MEDICINE [facility] Aug 01, 2024 10:15 AM AMBULATORY - NONE [facility] Aug 02, 2024 11:30 AM AMBULATORY - MEDICINE [facility] Aug 02, 2024 11:31 AM AMBULATORY - MEDICINE [facility] Aug 10, 2024 11:00 AM AMBULATORY - MEDICINE [facility] Aug 10, 2024 11:31 AM AMBULATORY - MEDICINE [facility] Aug 10, 2024 11:59 AM AMBULATORY - MEDICINE [facility] Aug 16, 2024 10:00 AM AMBULATORY - MEDICINE [facility] Aug 17, 2024 08:30 AM AMBULATORY - MEDICINE [facility] Aug 17, 2024 09:00 AM AMBULATORY - MEDICINE [facility] Aug 17, 2024 09:30 AM AMBULATORY - MEDICINE [facility] Aug 23, 2024 12:00 PM AMBULATORY - NONE [facility] Aug 31, 2024 02:00 PM AMBULATORY - MEDICINE [facility] Sep 07, 2024 11:00 AM AMBULATORY - MEDICINE [facility] Sep 07, 2024 01:00 PM AMBULATORY - MEDICINE [facility] Oct 15, 2024 03:00 PM AMBULATORY - SURGERY [facility] Gerry DELACRUZ [facility] Oct 19, 2024 02:00 PM AMBULATORY - NONE [facility] Active, Pending, and Scheduled Orders This section includes a listing of several types of active, pending, and scheduled orders, including clinic medications orders, diagnostic test orders, procedure orders and consult orders; where the start date of the order is 45 days before the date of the Encounter or 45 days after the date of theEncounter. The data comes from all [facility] facilities. Test Date/Time Test Type Test Details Facility Name Jul 17, 2024 12:00 AM Laboratory - Blood Bank Order FRESH FROZEN PLASMA - LAB VBECS - NO SPECIMEN REQUIRED [facility] Jul 17, 2024 12:00 AM Laboratory - Blood Bank Order RED BLOOD CELLS - LAB VBECS - NO SPECIMEN REQUIRED [facility] Jul 17, 2024 06:13 PM Laboratory - Blood Bank Order DIRECT ANTIGLOBULIN TEST - LAB BLOOD STAT [facility] Jul 17, 2024 06:13 PM Laboratory - Blood Bank Order TYPE & SCREEN - LAB BLOOD [facility] Jul 18, 2024 12:00 AM Laboratory - Blood Bank Order PLATELETS - LAB VBECS - NO SPECIMEN REQUIRED [facility] Aug 10, 2024 12:00 AM Laboratory - Blood Bank Order RED BLOOD CELLS - LAB VBECS - NO SPECIMEN REQUIRED [facility] Aug 10, 2024 02:00 PM Laboratory - Blood Bank Order TYPE & SCREEN - LAB BLOOD [facility] Aug 10, 2024 05:43 PM Laboratory - Chemistry Order LIPASE GREEN LI/HEP BLD/PLAS PLASMA STAT I ONCE [facility] Aug 10, 2024 05:44 PM Laboratory - Microbiology Order BLOOD CULT (SET 2) B D BLD. BOTTLE (SET 2) BLOOD JOANN I NOW [facility] Aug 11, 2024 02:00 AM Laboratory - Chemistry Order CBC BLOOD [facility] Aug 14, 2024 02:00 AM Laboratory - Chemistry Order CBC BLOOD WC [facility] Aug 15, 2024 02:00 AM Laboratory - Chemistry Order CBC BLOOD WC [facility] Aug 16, 2024 12:00 AM Laboratory - Chemistry Order CBC BLOOD SP [facility] Aug 16, 2024 08:00 PM Laboratory - Chemistry Order CBC BLOOD LC [facility] Aug 17, 2024 08:00 PM Laboratory - Chemistry Order CBC BLOOD LC [facility] Lab Results: +/- 30 days of the encounter This section includes the Chemistry and Hematology Lab Results on record with [place] for the patient. Radiology Reports and Pathology Reports are provided separately, in subsequent sections. Lab Results This section contains the Chemistry/Hematology Results that were resulted 30 days before or 30 daysafter the date of the Encounter. Date/Time Source Result Type Result - Unit Interpretation Reference Range Specimen Type Comment Aug 17, 2024 03:34 PM [facility] TSH W/ REFLEX FT4 (STL) PLASMA Specimen Type: PLASMA No comment entered. Ordering Provider: TONY SIMMONS Report Released Date/Time: Aug 10, 2024 12:01 PM Reporting Lab: [address] [address] Performing Lab: [address] [address] TSH 4.570 u[IU]/mL 0.47-5 Aug 17, 2024 03:34 PM [facility] COMPREHENSIVE METABOLIC PANEL PLASMA Specimen Type: PLASMA Comment: No hemolysis noted. Ordering Provider: TONY SIMMONS Report Released Date/Time: Aug 10, 2024 12:01 PM Reporting Lab: [address] [address] Performing Lab: [address] [address] CREATININE 0.85 mg/dL 0.7-1.3 UREA NITROGEN 11.5 [...] 95.2 >60 Aug 17, 2024 03:34 PM [facility] CBC BLOOD Specimen Type: BLOOD Comment: No Clots Ordering Provider: TONY SIMMONS Report Released Date/Time: Aug 10, 2024 12:01 PM Reporting Lab: [place] [id number] [facility] [address] Performing Lab: [address] [address] WBC 5.0 10*3/uL 3.6-11.2 RBC 2.83 10*6/uL [...] 4.9 1.0-7.0 Aug 15, 2024 07:20 AM [facility] CBC BLOOD Specimen Type: BLOOD Comment: No clots detected in specimen. Ordering Provider: CASH CLOUD Report Released Date/Time: Aug 12, 2024 01:47 PM Reporting Lab: [address] [address] Performing Lab: [address] [address] WBC 4.9 10*3/uL 3.6-11.2 RBC 2.93 10*6/uL [...] 10*3/uL 2.10-8.00 Aug 15, 2024 04:54 AM [facility] GLUCOSE,BLOOD-poct (STL) BLOOD Specimen Type: BLOOD Comment: Test Performed by: [id number] Meter #: [id number] Ordering Provider: DEIRDRE WILD Report Released Date/Time: Aug 15, 2024 05:21 AM Reporting Lab: [address] [address] Performing Lab: [address] [place] [address] GLUCOSE,BLOOD-poct (STL) 112 mg/dL H 72-99 Aug 14, 2024 08:30 PM [facility] CRP PLASMA Specimen Type: PLASM A No comment entered. Ordering Provider: CASH CLOUD Report Released Date/Time: Aug 12, 2024 10:14 AM Reporting Lab: [place] [address] Performing Lab: [place] [phone] CRP 0.7 mg/dL H 0-0.5 Aug 14, 2024 08:30 PM [facility] CBC BLOOD Specimen Type: BLOOD No comment entered. Ordering Provider: GILSON OG Report Released Date/Time: Aug 10, 2024 04:01 PM Reporting Lab: [address] [address] Performing Lab: [address] [address] WBC 4.6 10*3/uL 3.6-11.2 RBC 2.83 10*6/uL [...] 10*3/uL 2.10-8.00 Aug 14, 2024 07:54 PM [facility] GLUCOSE,BLOOD-poct (STL) BLOOD Specimen Type: BLOOD Comment: Test Performed by: [id number] Meter #: [id number] Ordering Provider: DEIRDRE WILD Report Released Date/Time: Aug 14, 2024 08:15 PM Reporting Lab: [address] [address] Performing Lab: [address] [address] GLUCOSE,BLOOD-poct (STL) 112 mg/dL H 72-99 Aug 14, 2024 04:10 PM [facility] GLUCOSE,BLOOD-poct (STL) BLOOD Specimen Type: BLOOD Comment: Test Performed by: [id number] Meter #: [id number] Ordering Provider: DEIRDRE WILD Report Released Date/Time: Aug 14, 2024 04:43 PM Reporting Lab: [address] [address] Performing Lab: [address] [address] GLUCOSE,BLOOD-poct (STL) 115 mg/dL H 72-99 Aug 14, 2024 02:05 PM [facility] COMPREHENSIVE METABOLIC PANEL PLASMA Specimen Type: PLASMA Comment: No hemolysis noted. Ordering Provider: GILSON OG Report Released Date/Time: Aug 14, 2024 06:56 AM Reporting Lab: [address] [address] Performing Lab: [address] [address] CREATININE 0.75 mg/dL 0.7-1.3 UREA NITROGEN 9.3 [...] 98.9 >60 Aug 14, 2024 02:05 PM [facility] CBC BLOOD Specimen Type: BLOOD Comment: No platelet clots or clumping detected. Ordering Provider: GILSON OG Report Released Date/Time: Aug 10, 2024 04:01 PM Reporting Lab: [address] [address] Performing Lab: [address] [address] WBC 4.6 10*3/uL 3.6-11.2 RBC 3.06 10*6/uL [...] 10*3/uL 2.10-8.00 Aug 14, 2024 10:12 AM [facility] GLUCOSE,BLOOD-poct (STL) BLOOD Specimen Type: BLOOD Comment: Test Performed by: [id number] Meter #: [id number] Ordering Provider: DEIRDRE WILD Report Released Date/Time: Aug 14, 2024 10:13 AM Reporting Lab: [place] [address] Performing Lab: [address] [address] GLUCOSE,BLOOD-poct (L) 112 mg/dL H 72-99 Aug 14, 2024 09:20 AM [facility] PT/INR NEW (L-MA) PLASMA Specimen Type: PLAS MA No comment entered. Ordering Provider: GILSON OG Report Released Date/Time: Aug 14, 2024 09:06 AM Reporting Lab: [address] [address] Performing Lab: [address] [address] PROTIME 13.6 s H 9.4-12.5 INR VALUE 1.2 {INR} Aug 14, 2024 06:51 AM [facility] CBC BLOOD Specimen Type: BLOOD No comment entered. Ordering Provider: CASH CLOUD Report Released Date/Time: Aug 12, 2024 01:47 PM Reporting Lab: [address] [address] Performing Lab: [address] [place] [address] WBC 3.8 10*3/uL 3.6-11.2 RBC 2.56 10*6/uL [...] 10*3/uL 2.10-8.00 Aug 14, 2024 06:03 AM [facility] GLUCOSE,BLOOD-poct (STL) BLOOD Specimen Type: BLOOD Comment: Test Performed by: [id number] Meter #: [id number] Ordering Provider: DEIRDRE WILD Report Released Date/Time: Aug 14, 2024 06:07 AM Reporting Lab: [address] [address] Performing Lab: [address] [address] GLUCOSE,BLOOD-poct (STL) 114 mg/dL H 72-99 Aug 13, 2024 09:11 PM [facility] GLUCOSE,BLOOD-poct (STL) BLOOD Specimen Type: BLOOD Comment: Test Performed by: [id number] Meter #: [id number] Ordering Provider: DEIRDRE WILD Report Released Date/Time: Aug 13, 2024 09:40 PM Reporting Lab: [address] [address] Performing Lab: [address] [address] GLUCOSE,BLOOD-poct (STL) 160 mg/dL H 72-99 Aug 13, 2024 07:10 PM [facility] COMPREHENSIVE METABOLIC PANEL PLASMA Specimen Type: PLASMA Comment: No hemolysis noted. Ordering Provider: GILSON OG Report Released Date/Time: Aug 14, 2024 07:03 AM Reporting Lab: [address] [address] Performing Lab: [address] [address] CREATININE 0.75 mg/dL 0.7-1.3 UREA NITROGEN 10.3 [...] 98.9 >60 Aug 13, 2024 07:10 PM [facility] CRP PLASMA Specimen Type: PLASM A No comment entered. Ordering Provider: CASH CLOUD Report Released Date/Time: Aug 12, 2024 10:14 AM Reporting Lab: [address] [address] Performing Lab: [address] [address] CRP 0.7 mg/dL H 0-0.5 Aug 13, 2024 07:10 PM [facility] CBC BLOOD Specimen Type: BLOOD No comment entered. Ordering Provider: GILSON OG Report Released Date/Time: Aug 10, 2024 04:01 PM Reporting Lab: [facility] [address] [place] [address] Performing Lab: [address] [address] WBC 5.3 10*3/uL 3.6-11.2 RBC 2.67 10*6/uL [...] 10*3/uL 2.10-8.00 Aug 13, 2024 04:35 PM [facility] GLUCOSE,BLOOD-poct (STL) BLOOD Specimen Type: BLOOD Comment: Test Performed by: [id number] Meter #: [id number] Ordering Provider: DEIRDRE WILD Report Released Date/Time: Aug 13, 2024 05:18 PM Reporting Lab: [address] [address] Performing Lab: [facility] [address] [facility] [address] GLUCOSE,BLOOD-poct (STL) 113 mg/dL H 72-99 Aug 13, 2024 02:36 PM [facility] CBC BLOOD Specimen Type: BLOOD No comment entered. Ordering Provider: GILSON OG Report Released Date/Time: Aug 10, 2024 04:01 PM Reporting Lab: [address] [address] Performing Lab: [address] [address] WBC 5.8 10*3/uL 3.6-11.2 RBC 2.77 10*6/uL [...] 10*3/uL 2.10-8.00 Aug 13, 2024 11:37 AM [facility] GLUCOSE,BLOOD-poct (STL) BLOOD Specimen Type: BLOOD Comment: Test Performed by: [id number] Meter #: [id number] Ordering Provider: DEIRDRE WILD Report Released Date/Time: Aug 13, 2024 11:38 AM Reporting Lab: [facility] [address] [facility] [address] Performing Lab: [place] [address] [facility] [address] GLUCOSE,BLOOD-poct (STL) 131 mg/dL H 72-99 Aug 13, 2024 08:06 AM [facility] CBC BLOOD Specimen Type: BLOOD Comment: no clot Ordering Provider: CASH CLOUD Report Released Date/Time: Aug 12, 2024 01:47 PM Reporting Lab: [place] [address] [facility] [address] Performing Lab: [place] [address] [facility] [address] WBC 3.0 10*3/uL L 3.6-11.2 RBC 2.61 [...] 10*3/uL 2.10-8.00 Aug 13, 2024 04:45 AM [facility] GLUCOSE,BLOOD-poct (STL) BLOOD Specimen Type: BLOOD Comment: Test Performed by: [id number] Meter #: [id number] Ordering Provider: DEIRDRE WILD Report Released Date/Time: Aug 13, 2024 06:18 AM Reporting Lab: [place] [address] [facility] [address] Performing Lab: [place] [address] [facility] [address] GLUCOSE,BLOOD-poct (STL) 139 mg/dL H 72-99 Aug 12, 2024 10:10 PM [facility] GLUCOSE,BLOOD-poct (STL) BLOOD Specimen Type: BLOOD Comment: Test Performed by: [id number] Meter #: [id number] Ordering Provider: DEIRDRE WILD Report Released Date/Time: Aug 12, 2024 10:50 PM Reporting Lab: [address] [address] Performing Lab: [place] [address] [facility] [address] GLUCOSE,BLOOD-poct (STL) 105 mg/dL H 72-99 Aug 12, 2024 08:48 PM [facility] CRP PLASMA Specimen Type: PLASM A No comment entered. Ordering Provider: CASH CLOUD Report Released Date/Time: Aug 12, 2024 10:14 AM Reporting Lab: [place] [address] [facility] [address] Performing Lab: [place] [address] [facility] [address] CRP 0.6 mg/dL H 0-0.5 Aug 12, 2024 08:48 PM [facility] CBC BLOOD Specimen Type: BLOOD Comment: SEE PREVIOUS DIFFERENTIAL ON 08/12/24 @ 1807 Ordering Provider: GILSON OG Report Released Date/Time: Aug 10, 2024 04:01 PM Reporting Lab: [place] [address] [facility] [address] Performing Lab: [address] [place] [place] [address] WBC 5.0 10*3/uL 3.6-11.2 RBC 2.78 10*6/uL [...] 6.5 1.0-7.0 Aug 12, 2024 04:51 PM [facility] GLUCOSE,BLOOD-poct (STL) BLOOD Specimen Type: BLOOD Comment: Test Performed by: [id number] Meter #: [id number] Ordering Provider: DEIRDRE WILD Report Released Date/Time: Aug 12, 2024 05:07 PM Reporting Lab: [address] [address] Performing Lab: [address] [address] GLUCOSE,BLOOD-poct (STL) 135 mg/dL H 72-99 Aug 12, 2024 02:33 PM [facility] CBC BLOOD Specimen Type: BLOOD No comment entered. Ordering Provider: GILSON OG Report Released Date/Time: Aug 10, 2024 04:01 PM Reporting Lab: [address] [address] Performing Lab: [facility] [address] [facility] [address] WBC 4.0 10*3/uL 3.6-11.2 RBC 2.56 10*6/uL [...] 10*3/uL 2.10-8.00 Aug 12, 2024 11:51 AM [facility] GLUCOSE,BLOOD-poct (STL) BLOOD Specimen Type: BLOOD Comment: Test Performed by: [id number] Meter #: [id number] Ordering Provider: DEIRDRE WILD Report Released Date/Time: Aug 12, 2024 12:26 PM Reporting Lab: [facility] [address] [place] [address] Performing Lab: [address] [address] GLUCOSE,BLOOD-poct (STL) 139 mg/dL H 72-99 Aug 12, 2024 07:35 AM [facility] CBC BLOOD Specimen Type: BLOOD Comment: prev diff 08/11/24. Ordering Provider: GILSON OG Report Released Date/Time: Aug 10, 2024 04:01 PM Reporting Lab: [address] [address] Performing Lab: [address] [address] WBC 3.0 10*3/uL L 3.6-11.2 RBC 2.54 [...] 0.00-0. 20 Aug 12, 2024 05:49 AM [facility] GLUCOSE,BLOOD-poct (STL) BLOOD Specimen Type: BLOOD Comment: Test Performed by: [id number] Meter #: [id number] Ordering Provider: DEIRDRE WILD Report Released Date/Time: Aug 12, 2024 05:50 AM Reporting Lab: [address] [address] Performing Lab: [address] [address] GLUCOSE,BLOOD-poct (STL) 112 mg/dL H 72-99 Aug 12, 2024 01:45 AM [facility] CBC BLOOD Specimen Type: BLOOD Comment: SEE PREVIOUS DIFFERENTIAL ON 08/12/24 @ 0239 [facility] Ordering Provider: GILSON OG Report Released Date/Time: Aug 10, 2024 04:01 PM Reporting Lab: [facility] [address] [place] [address] Performing Lab: [address] [address] WBC 2.6 10*3/uL L 3.6-11.2 RBC 2.42 [...] 6.4 1.0-7.0 Aug 11, 2024 09:25 PM [facility] CBC BLOOD Specimen Type: BLOOD No comment entered. Ordering Provider: GILSON OG Report Released Date/Time: Aug 10, 2024 04:01 PM Reporting Lab: [address] [address] Performing Lab: [address] [address] WBC 3.6 10*3/uL 3.6-11.2 RBC 2.54 10*6/uL [...] 10*3/uL 2.10-8.00 Aug 11, 2024 09:17 PM [facility] GLUCOSE,BLOOD-poct (STL) BLOOD Specimen Type: BLOOD Comment: Test Performed by: [id number] Meter #: [id number] Ordering Provider: DEIRDRE WILD Report Released Date/Time: Aug 11, 2024 09:21 PM Reporting Lab: [address] [address] Performing Lab: [address] [address] GLUCOSE,BLOOD-poct (STL) 167 mg/dL H 72-99 Aug 11, 2024 04:42 PM [facility] CBC BLOOD Specimen Type: BLOOD No comment entered. Ordering Provider: YVONNE HARRISON Report Released Date/Time: Aug 11, 2024 04:41 PM Reporting Lab: [address] [address] Performing Lab: [address] [address] WBC 4.0 10*3/uL 3.6-11.2 RBC 2.74 10*6/uL [...] 10*3/uL 2.10-8.00 Aug 11, 2024 04:30 PM [facility] GLUCOSE,BLOOD-poct (STL) BLOOD Specimen Type: BLOOD Comment: Test Performed by: [id number] Meter #: [id number] Ordering Provider: DEIRDRE WILD Report Released Date/Time: Aug 11, 2024 06:06 PM Reporting Lab: [facility] [address] [facility] [address] Performing Lab: [facility] [address] [place] [address] GLUCOSE,BLOOD-poct (STL) 95 mg/dL 72-99 Aug 11, 2024 11:08 AM [facility] GLUCOSE,BLOOD-poct (STL) BLOOD Specimen Type: BLOOD Comment: Test Performed by: [id number] Meter #: [id number] Ordering Provider: DEIRDRE WILD Report Released Date/Time: Aug 11, 2024 11:10 AM Reporting Lab: [address] [address] Performing Lab: [address] [address] GLUCOSE,BLOOD-poct (STL) 117 mg/dL H 72-99 Aug 11, 2024 06:00 AM [facility] PT/INR NEW (STL-MA) PLASMA Specimen Type: PLAS MA No comment entered. Ordering Provider: GILSON OG Report Released Date/Time: Aug 10, 2024 06:20 PM Reporting Lab: [address] [address] Performing Lab: [address] [address] PROTIME 15.5 s H 9.4-12.5 INR VALUE 1.4 {INR} Aug 11, 2024 06:00 AM [facility] HEPATIC FUNTION PANEL (STL) PLASMA Specimen Ty pe: PLASMA No comment entered. Ordering Provider: GILSON OG Report Released Date/Time: Aug 10, 2024 04:02 PM Reporting Lab: [address] [address] Performing Lab: [address] [address] PROTEIN 5.4 g/dL L 6-8.6 ALBUMIN 2.6 g/dL L 3.4-5 TOTAL BILIRUBIN 0.8 mg/dL 0.2-1.2 ALKALINE PHOSPHATASE 72 U/L 40-150 AST/SGOT 28 U/L 5-34 ALT/SGPT 10 U/L 8-40 CONJ. BILIRUBIN 0.4 mg/dL 0-0.5 Aug 11, 2024 06:00 AM [facility] IRON/TIBC PROFILE SERUM Specimen Type: SERUM No comment entered. Ordering Provider: GILSON OG Report Released Date/Time: Aug 10, 2024 04:02 PM Reporting Lab: [address] [address] Performing Lab: [place] [address] [facility] [address] TIBC 263 ug/dL 250-450 TRANSFERRIN 210 mg/dL 163-344 IRON SATURATION 8 L 20-50 IRON 21 ug/dL L 65-175 Aug 11, 2024 06:00 AM [facility] APTT PLASMA Specimen Type: PLASM A No comment entered. Ordering Provider: GILSON OG Report Released Date/Time: Aug 10, 2024 06:20 PM Reporting Lab: [address] [address] Performing Lab: [address] [address] APTT 25.5 s L 26.7-39.9 Aug 11, 2024 06:00 AM [facility] CBC BLOOD Specimen Type: BLOOD No comment entered. Ordering Provider: GILSON OG Report Released Date/Time: Aug 10, 2024 04:01 PM Reporting Lab: [place] [address] [facility] [address] Performing Lab: [address] [address] WBC 2.4 10*3/uL L 3.6-11.2 RBC 2.42 [...] L 2.10-8.00 Aug 10, 2024 09:00 PM [facility] BASIC METABOLIC PANEL PLASMA Specimen Type: PL ASMA Comment: No hemolysis noted. Ordering Provider: GILSON OG Report Released Date/Time: Aug 10, 2024 04:01 PM Reporting Lab: [address] [address] Performing Lab: [address] [address] CREATININE 0.84 mg/dL 0.7-1.3 UREA NITROGEN 16.8 mg/dL 9.0-25.0 GLUCOSE 104 mg/dL H 72-99 SODIUM 133 meq/L L 136-145 POTASSIUM 3.5 meq/L 3.5-5 CHLORIDE 103 meq/L 98-107 CARBON DIOXIDE 23 meq/L 22-31 CALCIUM 8.4 mg/dL 8.4-10.4 EGFR (CKD-EPI 2020) 95.6 >60 Aug 10, 2024 09:00 PM [facility] CBC BLOOD Specimen Type: BLOOD No comment entered. Ordering Provider: GILSON OG Report Released Date/Time: Aug 10, 2024 04:01 PM Reporting Lab: [address] [address] Performing Lab: [address] [address] WBC 4.3 10*3/uL 3.6-11.2 RBC 2.22 10*6/uL [...] 10*3/uL 2.10-8.00 Aug 10, 2024 06:30 PM [facility] MRSA SURVL NARES DNA NARES Specimen Type: [...] Aug 10, 2024 04:01 PM Reporting Lab: [facility] [address] [address] Performing Lab: [facility] [address] [facility] [address] MRSA SURVL NARES DNA Negative Negative Aug 10, 2024 06:02 PM [facility] GLUCOSE,BLOOD-poct (STL) BLOOD Specimen Type: BLOOD Comment: Test Performed by: [id number] Meter #: [id number] Ordering Provider: YASIR SANZ MD Report Released Date/Time: Aug 10, 2024 06:04 PM Reporting Lab: [place] [address] [facility] [facility] [address] Performing Lab: [address] [address] GLUCOSE,BLOOD-poct (L) 94 mg/dL 72-99 Aug 10, 2024 02:12 PM [facility] PT/INR NEW (STL-MA) PLASMA Specimen Type: PLAS MA No comment entered. Ordering Provider: YASIR SANZ MD Report Released Date/Time: Aug 10, 2024 02:00 PM Reporting Lab: [address] [address] Performing Lab: [address] [address] PROTIME 13.8 s H 9.4-12.5 INR VALUE 1.2 {INR} Aug 10, 2024 02:12 PM [facility] APTT PLASMA Specimen Type: PLASM A No comment entered. Ordering Provider: YASIR SANZ MD Report Released Date/Time: Aug 10, 2024 02:00 PM Reporting Lab: [address] [address] Performing Lab: [address] [address] APTT 20.1 s L 26.7-39.9 Aug 10, 2024 11:30 AM [facility] TSH W/ REFLEX FT4 (L) PLASMA Specimen Type: PLASMA No comment entered. Ordering Provider: TONY SIMMONS Report Released Date/Time: Aug 02, 2024 12:33 PM Reporting Lab: [address] [address] Performing Lab: [address] [address] TSH 3.991 u[IU]/mL 0.47-5 Aug 10, 2024 11:30 AM [facility] COMPREHENSIVE METABOLIC PANEL PLASMA Specimen Type: PLASMA Comment: No hemolysis noted. Ordering Provider: TONY SIMMONS Report Released Date/Time: Aug 02, 2024 12:33 PM Reporting Lab: [address] [address] Performing Lab: [address] [address] CREATININE 0.82 mg/dL 0.7-1.3 UREA NITROGEN 21.7 [...] ALT/SGPT 11 U/L 8-40 EGFR (CKD-EPI 2020) 96.3 >60 Aug 10, 2024 11:30 AM [facility] CBC BLOOD Specimen Type: BLOOD No comment entered. Ordering Provider: TONY SIMMONS Report Released Date/Time: Aug 02, 2024 12:33 PM Reporting Lab: [address] [address] Performing Lab: [address] [address] WBC 7.4 10*3/uL 3.6-11.2 RBC 2.81 10*6/uL [...] 0.00-0. 20 Aug 02, 2024 11:53 AM [facility] PROTEIN ELECTROPHORESIS BLOOD SERUM Specimen Type: SERUM Comment: Reference Range: None Detected NOTE: THIS RESULT IS FLAGGED ABNORMAL Evaluation reveals a restricted band (M-spike) migrating in the gamma globulin region. If not already requested, Immunofixation should be considered. Test Performed by [facility], [employer] [facility], [address] [place] [address] Tristin Iyer M.D., Ph.D., Director of Laboratories , CLIA [id number] PREVIOUS SUGAR: IgG [place] Ordering Provider: TONY SIMMONS Report Released Date/Time: Jul 13, 2024 01:49 PM Reporting Lab: [facility] [address] [place] [address] Performing Lab: [address] ALPHA-1 GLOBULIN(SO-PB-STL) 0.4 g/dL H 0.2 -0.3 [...] g/dL H Aug 02, 2024 11:53 AM [facility] IGA (STL) PLASMA Specimen Type: PLASM A Comment: No hemolysis noted. Ordering Provider: TONY SIMMONS Report Released Date/Time: Jul 13, 2024 01:49 PM Reporting Lab: [facility] [address] [facility] [address] Performing Lab: [facility] [address] [facility] [address] IGA (STL) 113 mg/dL 63-484 Aug 02, 2024 11:53 AM [facility] IGG (STL) PLASMA Specimen Type: PLASM A Comment: No hemolysis noted. Ordering Provider: TONY SIMMONS Report Released Date/Time: Jul 13, 2024 01:49 PM Reporting Lab: [facility] [address] [facility] [address] Performing Lab: [place] [address] [facility] [address] IGG (STL) 1898 mg/dL H 540-1822 Aug 02, 2024 11:53 AM [facility] IGM (STL) PLASMA Specimen Type: PLASM A Comment: No hemolysis noted. Ordering Provider: TONY SIMMONS Report Released Date/Time: Jul 13, 2024 01:49 PM Reporting Lab: [facility] [address] [facility] [address] Performing Lab: [place] [address] [address] [facility] [address] IGM (STL) 104 mg/dL 22-240 Aug 02, 2024 11:53 AM [facility] KAPPA/LAMBDA FREE LC PANEL (STL-PB) SERUM Spe cimen Type: SERUM No comment entered. Ordering Provider: TONY SIMMONS Report Released Date/Time: Jul 13, 2024 01:49 PM Reporting Lab: [facility] [address] Performing Lab: [address] [address] KAPPA FREE LC (STL) 102.7 mg/L H 2.4-20.7 LAMBDA FREE LC (STL) 32.2 mg/L H 4.2-27.7 KAPPA/LAMBDA RATIO (STL) 3.19 H 0.22-1. 74 Aug 02, 2024 11:53 AM [facility] TSH W/ REFLEX FT4 (STL) PLASMA Specimen Type: PLASMA No comment entered. Ordering Provider: TONY SIMMONS Report Released Date/Time: Jul 13, 2024 01:49 PM Reporting Lab: [place] [phone] Performing Lab: [address] [address] TSH 2.182 u[IU]/mL 0.47-5 Aug 02, 2024 11:53 AM [facility] COMPREHENSIVE METABOLIC PANEL PLASMA Specimen Type: PLASMA Comment: No hemolysis noted. Ordering Provider: TONY SIMMONS Report Released Date/Time: Jul 13, 2024 01:49 PM Reporting Lab: [address] [address] Performing Lab: [address] [address] CREATININE 0.82 mg/dL 0.7-1.3 UREA NITROGEN 12.2 [...] 96.3 >60 Aug 02, 2024 11:53 AM [facility] CBC BLOOD Specimen Type: BLOOD Comment: No Clots in specimen Ordering Provider: TONY SIMMONS Report Released Date/Time: Jul 13, 2024 01:49 PM Reporting Lab: [place] [address] [facility] [address] Performing Lab: [address] [address] WBC 2.2 10*3/uL L 3.6-11.2 RBC 3.44 [...] L 2.10-8.00 Aug 01, 2024 10:10 AM [facility] GLUCOSE,BLOOD-poct (STL) BLOOD Specimen Type: BLOOD Comment: Test Performed by: [id number] Meter #: [id number] Ordering Provider: SUKHJINDER CHAHAL Report Released Date/Time: Aug 01, 2024 10:17 AM Reporting Lab: [address] [address] Performing Lab: [address] [address] GLUCOSE,BLOOD-poct (STL) 101 mg/dL H 72-99 Jul 27, 2024 01:54 PM [facility] BRAIN NATRIURETIC PEPTIDE PLASMA Specimen Type : PLASMA No comment entered. Ordering Provider: ELIZABETH COATES Report Released Date/Time: Jul 27, 2024 03:39 PM Reporting Lab: [address] [address] Performing Lab: [address] [address] BRAIN NATRIURETIC PEPTIDE 257.2 pg/mL H 0- 100 Jul 27, 2024 01:54 PM [facility] TROPONIN I PLASMA Specimen Type: PLASM A Comment: No hemolysis noted. Ordering Provider: ELIZABETH COATES Report Released Date/Time: Jul 27, 2024 03:39 PM Reporting Lab: [address] [address] Performing Lab: [address] [address] TROPONIN I 0.011 ng/mL 0-0.033 Jul 27, 2024 01:54 PM [facility] COMPREHENSIVE METABOLIC PANEL PLASMA Specimen Type: PLASMA Comment: No hemolysis noted. Ordering Provider: ELIZABETH COATES Report Released Date/Time: Jul 27, 2024 03:39 PM Reporting Lab: [address] [address] Performing Lab: [address] [address] CREATININE 0.70 mg/dL 0.7-1.3 UREA NITROGEN 7.4 [...] 101.0 >60 Jul 27, 2024 01:54 PM [facility] CBC BLOOD Specimen Type: BLOOD No comment entered. Ordering Provider: ELIZABETH COATES Report Released Date/Time: Jul 27, 2024 03:39 PM Reporting Lab: [facility] [address] [facility] [address] Performing Lab: [address] [address] WBC 3.2 10*3/uL L 3.6-11.2 RBC 3.12 [...] 10*3/uL 2.10-8.00 Jul 21, 2024 02:00 PM [facility] IRON/TIBC PROFILE SERUM Specimen Type: SERUM No comment entered. Ordering Provider: JORJE DENSON Report Released Date/Time: Jul 21, 2024 12:54 PM Reporting Lab: [address] [address] Performing Lab: [place] [address] [facility] [address] TIBC 243 ug/dL L 250-450 TRANSFERRIN 194 mg/dL 163-344 IRON SATURATION 20 20-50 IRON 49 ug/dL L 65-175 Jul 21, 2024 02:00 PM [facility] B12 SERUM Specimen Type: SERUM No comment entered. Ordering Provider: JORJE DENSON Report Released Date/Time: Jul 21, 2024 12:54 PM Reporting Lab: [address] [address] Performing Lab: [place] [address] [facility] [address] B12 1584 pg/mL H 213-816 Jul 21, 2024 02:00 PM [facility] FOLATE (L-MA) SERUM Specimen Type: SERUM No comment entered. Ordering Provider: JORJE DENSON Report Released Date/Time: Jul 21, 2024 12:54 PM Reporting Lab: [address] [address] Performing Lab: [address] [address] FOLATE (L-MA) 9.1 ng/mL 7-20 Jul 21, 2024 02:00 PM [facility] CBC BLOOD Specimen Type: BLOOD Comment: Manual differential performed 07/20/2024 No clots Ordering Provider: JORJE DENSON Report Released Date/Time: Jul 21, 2024 12:54 PM Reporting Lab: [address] [address] Performing Lab: [address] [address] WBC 5.6 10*3/uL 3.6-11.2 RBC 2.87 10*6/uL [...] H 1.0-7.0 Jul 20, 2024 08:55 PM [facility] PT/INR NEW (STL-MA) PLASMA Specimen Type: PLAS MA No comment entered. Ordering Provider: AURA ZACARIAS Report Released Date/Time: Jul 18, 2024 01:30 PM Reporting Lab: [address] [address] Performing Lab: [address] [address] PROTIME 12.8 s H 9.4-12.5 INR VALUE 1.1 {INR} Jul 20, 2024 08:55 PM [facility] BASIC METABOLIC PANEL PLASMA Specimen Type: PL ASMA Comment: No hemolysis noted. Ordering Provider: AURA ZACARIAS Report Released Date/Time: Jul 18, 2024 01:30 PM Reporting Lab: [address] [place] [address] Performing Lab: [address] [address] CREATININE 0.74 mg/dL 0.7-1.3 UREA NITROGEN 15.1 mg/dL 9.0-25.0 GLUCOSE 121 mg/dL H 72-99 SODIUM 130 meq/L L 136-145 POTASSIUM 3.7 meq/L 3.5-5 CHLORIDE 100 meq/L 98-107 CARBON DIOXIDE 20 meq/L L 22-31 CALCIUM 8.5 mg/dL 8.4-10.4 EGFR (CKD-EPI 2020) 99.3 >60 Jul 20, 2024 08:55 PM [facility] CBC BLOOD Specimen Type: BLOOD No comment entered. Ordering Provider: AURA ZACARIAS Report Released Date/Time: Jul 18, 2024 01:30 PM Reporting Lab: [address] [address] Performing Lab: [address] [address] WBC 5.1 10*3/uL 3.6-11.2 RBC 2.90 10*6/uL [...] 10*3/uL 2.10-8.00 Jul 20, 2024 01:13 PM [facility] CBC BLOOD Specimen Type: BLOOD No comment entered. Ordering Provider: AURA ZACARIAS Report Released Date/Time: Jul 18, 2024 01:30 PM Reporting Lab: [place] [address] [facility] [address] Performing Lab: [address] [address] WBC 5.6 10*3/uL 3.6-11.2 RBC 3.11 10*6/uL [...] 10*3/uL 2.10-8.00 Jul 19, 2024 06:42 AM [facility] PT/INR NEW (STL-MA) PLASMA Specimen Type: PLAS MA No comment entered. Ordering Provider: AURA ZACARIAS Report Released Date/Time: Jul 18, 2024 01:30 PM Reporting Lab: [address] [address] Performing Lab: [address] [address] PROTIME 16.4 s H 9.4-12.5 INR VALUE 1.5 {INR} Jul 19, 2024 06:42 AM [facility] BASIC METABOLIC PANEL PLASMA Specimen Type: PL ASMA Comment: No hemolysis noted. Ordering Provider: AURA ZACARIAS Report Released Date/Time: Jul 18, 2024 01:30 PM Reporting Lab: [address] [address] Performing Lab: [address] [address] CREATININE 0.94 mg/dL 0.7-1.3 UREA NITROGEN 23.8 mg/dL 9.0-25.0 GLUCOSE 87 mg/dL 72-99 SODIUM 129 meq/L L 136-145 POTASSIUM 3.4 meq/L L 3.5-5 CHLORIDE 102 meq/L 98-107 CARBON DIOXIDE 20 meq/L L 22-31 CALCIUM 8.1 mg/dL L 8.4-10.4 EGFR (CKD-EPI 2020) 88.9 >60 Jul 19, 2024 06:42 AM [facility] CBC BLOOD Specimen Type: BLOOD No comment entered. Ordering Provider: AURA ZACARIAS Report Released Date/Time: Jul 18, 2024 01:30 PM Reporting Lab: [address] [address] Performing Lab: [address] [address] WBC 5.1 10*3/uL 3.6-11.2 RBC 2.45 10*6/uL [...] H 1.0-7.0 Jul 18, 2024 08:51 PM [facility] CBC BLOOD Specimen Type: BLOOD No comment entered. Ordering Provider: AURA ZACARIAS Report Released Date/Time: Jul 18, 2024 01:30 PM Reporting Lab: [address] [address] Performing Lab: [address] [address] WBC 6.2 10*3/uL 3.6-11.2 RBC 2.44 10*6/uL [...] 10*3/uL 2.10-8.00 Jul 18, 2024 04:19 PM [facility] CBC BLOOD Specimen Type: BLOOD No comment entered. Ordering Provider: AURA ZACARIAS Report Released Date/Time: Jul 18, 2024 01:30 PM Reporting Lab: [address] [address] Performing Lab: [address] [address] WBC 6.1 10*3/uL 3.6-11.2 RBC 2.57 10*6/uL [...] 10*3/uL 2.10-8.00 Jul 18, 2024 06:32 AM [facility] LACTIC ACID (STL-PB) PLASMA Specimen Type: NEIL SMA No comment entered. Ordering Provider: CAMDEN PATTON Report Released Date/Time: Jul 17, 2024 07:38 PM Reporting Lab: [address] [address] Performing Lab: [address] [address] LACTIC ACID (STL-PB) 1.3 mmol/L 0.5-2.0 Jul 18, 2024 06:32 AM [facility] PT/INR NEW (STL-MA) PLASMA Specimen Type: PLAS MA No comment entered. Ordering Provider: CAMDEN PATTON Report Released Date/Time: Jul 17, 2024 07:38 PM Reporting Lab: [address] [address] Performing Lab: [address] [address] PROTIME 19.1 s H 9.4-12.5 INR VALUE 1.7 {INR} Jul 18, 2024 06:32 AM [facility] CBC BLOOD Specimen Type: BLOOD Comment: HGB Called to : Dr. Posadas MOD at: [id number] on: 07/18/24 by: [email or web address] Critical Verbal Readback Performed Ordering Provider: CAMDEN PATTON Report Released Date/Time: Jul 17, 2024 07:38 PM Reporting Lab: [address] [address] Performing Lab: [address] [address] WBC 7.0 10*3/uL 3.6-11.2 RBC 2.04 10*6/uL [...] 10*3/uL 2.10-8.00 Jul 18, 2024 06:32 AM [facility] VANCOMYCIN (STL) PLASMA Specimen Type: PLASM A No comment entered. Ordering Provider: CAMDEN PATTON Report Released Date/Time: Jul 17, 2024 07:38 PM Reporting Lab: [facility] [address] [facility] [address] Performing Lab: [address] [address] VANCOMYCIN (STL) 5.0 ug/mL L 10-15 Jul 18, 2024 06:32 AM [facility] MAGNESIUM PLASMA Specimen Type: PLASM A Comment: No hemolysis noted. Ordering Provider: CAMDEN PATTON Report Released Date/Time: Jul 17, 2024 07:38 PM Reporting Lab: [address] [address] Performing Lab: [facility] [address] [place] [address] MAGNESIUM 1.5 mg/dL L 1.6-2.6 Jul 18, 2024 06:32 AM [facility] PHOSPHOROUS PLASMA Specimen Type: PLASM A Comment: No hemolysis noted. Ordering Provider: CAMDEN PATTON Report Released Date/Time: Jul 17, 2024 07:38 PM Reporting Lab: [address] [address] Performing Lab: [facility] [address] [place] [address] PHOSPHOROUS 2.2 mg/dL L 2.3-4.7 Jul 18, 2024 06:32 AM [facility] COMPREHENSIVE METABOLIC PANEL PLASMA Specimen Type: PLASMA Comment: No hemolysis noted. Ordering Provider: CAMDEN PATTON Report Released Date/Time: Jul 17, 2024 07:38 PM Reporting Lab: [address] [address] Performing Lab: [facility] [address] [address] CREATININE 1.08 mg/dL 0.7-1.3 UREA NITROGEN 40.5 [...] 75.2 >60 Jul 18, 2024 12:05 AM [facility] HGB,HCT,PLT BLOOD Specimen Type: BLOOD No comment entered. Ordering Provider: ROSA VARGAS Report Released Date/Time: Jul 17, 2024 09:07 PM Reporting Lab: [address] [address] Performing Lab: [address] [address] HGB 7.3 g/dL L 13.1-16.8 HCT 21.0 L 38.2-48.4 PLT 64 10*3/uL L 150-400 Jul 17, 2024 07:45 PM [facility] MRSA SURVL NARES DNA NARES Specimen Type: [...] Jul 17, 2024 07:38 PM Reporting Lab: [place] [address] [facility] [address] Performing Lab: [address] [address] MRSA SURVL NARES DNA Negative Negative Jul 17, 2024 07:36 PM [facility] GLUCOSE,BLOOD-poct (STL) BLOOD Specimen Type: BLOOD Comment: Test Performed by: [id number] Meter #: [id number] Ordering Provider: CAMDEN PATTON Report Released Date/Time: Jul 17, 2024 07:48 PM Reporting Lab: [place] [address] [facility] [address] Performing Lab: [address] [address] GLUCOSE,BLOOD-poct (STL) 98 mg/dL 72-99 Jul 17, 2024 07:35 PM [facility] BLOOD GAS PANEL ABG (L) VENOUS BLOOD Specimen Type : VENOUS BLOOD Comment: normalcy status - Below absolute low-off instrument scale Test Performed by: [id number] Meter #: [id number] Ordering Provider: CAMDEN PATTON Report Released Date/Time: Jul 17, 2024 07:37 PM Reporting Lab: [place] [address] [facility] [address] Performing Lab: [place] [address] [facility] [address] GEM PH 7.39 7.31-7.41 GEM PCO2 31 [...] TEMP 37.0 Jul 17, 2024 07:10 PM [facility] URINALYSIS W/ CX REFLEX (STL-PB) URINE Specim en Type: URINE No comment entered. Ordering Provider: CASEY BOONE Report Released Date/Time: Jul 17, 2024 04:24 PM Reporting Lab: [address] [address] Performing Lab: [address] [address] URINE COLOR Light-Yellow Yellow U.BILIRUBIN Negative mg/dL Negative U.PH 6.0 5.0-8.0 APPEARANCE Clear Clear U.NITRITE Negative mg/dL Negative URN.GLUCOSE Normal mg/dL Negative URN.PROTEIN Negative mg/dL URN.UROBILINOGEN Normal mg/dL Normal URN.BLOOD Negative mg/dL Negative-Trace URN.KETONES Trace mg/dL Negative-Trace URN.LEUK.EST. Negative mg/dL Negative-Tr april URN.SPECIFIC GRAVITY 1.029 Jul 17, 2024 06:25 PM [facility] RETICULOCYTE PANEL BLOOD Specimen Type: BLOOD No comment entered. Ordering Provider: CASEY BOONE Report Released Date/Time: Jul 17, 2024 06:13 PM Reporting Lab: [address] [address] Performing Lab: [address] [address] RETIC RATIO 7.35 H 0.50-2.30 IRF 39.7 H 2.3-13.4 RETICULOCYTE HEMOGLOBIN EQUIVALENT 35.8 pg 28.2-36.6 RETIC COUNT,ABS 0.129 10*6/uL H 0.022-0.10 1 Jul 17, 2024 06:25 PM [facility] HAPTOGLOBIN (STL) PLASMA Specimen Type: PLASM A No comment entered. Ordering Provider: CASEY BOONE Report Released Date/Time: Jul 17, 2024 06:13 PM Reporting Lab: [place] [phone] Performing Lab: [address] [address] HAPTOGLOBIN (STL) 93 mg/dL 44-215 Jul 17, 2024 06:25 PM [facility] LDH PLASMA Specimen Type: PLASM A No comment entered. Ordering Provider: CASEY BOONE Report Released Date/Time: Jul 17, 2024 06:13 PM Reporting Lab: [place] [address] Performing Lab: [place] [phone] LDH 305 U/L H 125-243 Jul 17, 2024 06:25 PM [facility] CBC BLOOD Specimen Type: BLOOD Comment: HGB Called to : Watson White at: 1934 on:[id number] by: SHARON Critical Verbal Readback Performed Ordering Provider: CAMDEN PATTON Report Released Date/Time: Jul 17, 2024 07:09 PM Reporting Lab: [address] [address] Performing Lab: [address] [address] WBC 27.6 10*3/uL H 3.6-11.2 RBC 1.76 [...] H 2.10-8.00 Jul 17, 2024 04:59 PM [facility] BLOOD GAS PANEL ABG ([facility]) VENOUS BLOOD Specimen Type : VENOUS BLOOD Comment: Test Performed by: [id number] Meter #: [id number] Ordering Provider: CASEY BOONE Report Released Date/Time: Jul 17, 2024 05:00 PM Reporting Lab: [address] [address] Performing Lab: [address] [address] GEM PH 7.39 7.31-7.41 GEM PCO2 33 [...] TEMP 37.0 Jul 17, 2024 04:25 PM [facility] MAGNESIUM PLASMA Specimen Type: PLASM A Comment: No hemolysis noted. Ordering Provider: CASEY BOONE Report Released Date/Time: Jul 17, 2024 04:24 PM Reporting Lab: [facility] [address] [facility] [address] Performing Lab: [facility] [address] [facility] [address] MAGNESIUM 1.4 mg/dL L 1.6-2.6 Jul 17, 2024 04:25 PM [facility] PT/INR NEW (STL-MA) PLASMA Specimen Type: PLAS MA No comment entered. Ordering Provider: CASEY BOONE Report Released Date/Time: Jul 17, 2024 04:24 PM Reporting Lab: [address] [address] Performing Lab: [address] [address] PROTIME 25.3 s H 9.4-12.5 INR VALUE 2.3 {INR} Jul 17, 2024 04:25 PM [facility] COVID-19 DIAGNOSTIC (FLU/RSV)(STL) NASOPHARYNX Spec imen Type: [...] information for final interpretation. Ordering Provider: CASEY OBONE Report Released Date/Time: Jul 17, 2024 04:24 PM Reporting Lab: [address] [address] Performing Lab: [address] [address] INFLUENZA A Negative Negative INFLUENZA B Negative Negative COVID-19 (STL-PB) Not Detected Not Detec nate RSV (Cepheid) NEGATIVE Negative Jul 17, 2024 04:25 PM [facility] COMPREHENSIVE METABOLIC PANEL PLASMA Specimen Type: PLASMA Comment: No hemolysis noted. Ordering Provider: CASEY BOONE Report Released Date/Time: Jul 17, 2024 04:24 PM Reporting Lab: [address] [address] Performing Lab: [address] [address] CREATININE 1.25 mg/dL 0.7-1.3 UREA NITROGEN 47.0 [...] 63.1 >60 Jul 17, 2024 04:25 PM [facility] CBC BLOOD Specimen Type: BLOOD No comment entered. Ordering Provider: CASEY BOONE Report Released Date/Time: Jul 17, 2024 04:24 PM Reporting Lab: [address] [address] Performing Lab: [address] [address] WBC 42.4 10*3/uL H 3.6-11.2 RBC 2.20 [...] H 2.10-8.00 Jul 13, 2024 12:39 PM [facility] PHOSPHOROUS PLASMA Specimen Type: PLASM A Comment: No hemolysis noted. Ordering Provider: TONY SIMMONS Report Released Date/Time: Jun 07, 2024 01:01 PM Reporting Lab: [address] [address] Performing Lab: [address] [address] PHOSPHOROUS 2.4 mg/dL 2.3-4.7 Jul 13, 2024 12:39 PM [facility] TSH W/ REFLEX FT4 (STL) PLASMA Specimen Type: PLASMA No comment entered. Ordering Provider: TONY SIMMONS Report Released Date/Time: Jun 07, 2024 01:01 PM Reporting Lab: [address] [address] Performing Lab: [address] [address] TSH 1.431 u[IU]/mL 0.47-5 Jul 13, 2024 12:39 PM [facility] MAGNESIUM PLASMA Specimen Type: PLASM A Comment: No hemolysis noted. Ordering Provider: TONY SIMMONS Report Released Date/Time: Jun 07, 2024 01:01 PM Reporting Lab: [facility] [address] [facility] [address] Performing Lab: [facility] [address] [place] [address] MAGNESIUM 2.0 mg/dL 1.6-2.6 Jul 13, 2024 12:39 PM [facility] COMPREHENSIVE METABOLIC PANEL PLASMA Specimen Type: PLASMA Comment: No hemolysis noted. Ordering Provider: TONY SIMMONS Report Released Date/Time: Jun 07, 2024 01:01 PM Reporting Lab: [facility] [address] [facility] [address] Performing Lab: [address] [address] CREATININE 0.75 mg/dL 0.7-1.3 UREA NITROGEN 21.3 [...] 98.9 >60 Jul 13, 2024 12:39 PM [facility] CBC BLOOD Specimen Type: BLOOD Comment: no clot Ordering Provider: TONY SIMMONS Report Released Date/Time: Jun 07, 2024 01:01 PM Reporting Lab: [facility] [address] [facility] [address] Performing Lab: [facility] [address] [place] [address] WBC 3.0 10*3/uL L 3.6-11.2 RBC 3.83 [...] 10*3/uL 2.10-8.00 Jul 13, 2024 12:38 PM [facility] ALPHA-FETOPROTEIN(STL-PB) SERUM Specimen Type : SERUM No comment entered. Ordering Provider: CRYSTAL MASSEY Report Released Date/Time: Jul 04, 2024 03:26 PM Reporting Lab: [facility] [address] [facility] [id number] Performing Lab: [facility] [address] [facility] [id number] ALPHA-FETOPROTEIN(STL-PB) 16.86 ng/mL H 1- 8.78 Jul 13, 2024 12:37 PM [facility] CARBOHYDRATE Ag SERUM Specimen Type: SERUM Comment: REFERENCE RANGE: <34 U/mL This test was performed using the Siemens chemiluminescent method. Values obtained from different assay methods cannot be used inter- changeably. CA 19-9 levels, regardless of value, should not be interpreted as absolute evidence of the presence or absence of disease. Test Performed by [facility], [facility], [address] [place], [place] Tristin Iyer M.D., Ph.D., Director of Laboratories , EZEKIEL [id number] Ordering Provider: CRYSTAL MASSEY Report Released Date/Time: Jul 04, 2024 03:28 PM Reporting Lab: [facility] [address] [facility] [id number] Performing Lab: [facility] [address] [facility] CARBOHYDRATE Ag 61 H SEE BELOW Vital Signs: All taken on the encounter date This section contains inpatient and outpatient Vital Signs collected on the date of the Encounter. Date/Time Temperature Pulse Blood Pressure Respiratory Rate SP02 Pain Height Weight Body Mass Index Source Jul 18, 2024 09:34 PM 5 [facility] Social History: Smoking Status (Most current) and Tobacco Use (All prior to encounter date) This section includes the most current, and the historical, smoking and tobacco- related health factors from the [place] facility where the Encounter took place. Current Smoking Status This section includes the most current smoking, or tobacco-related health factor, from the [place] facility where the Encounter took place. Date/Time Current Smoking Status Comment Kaz itbienvenido Jul 17, 2024 04:02 PM [facility] ADMIT TOBACCO SCREEN NO [facility] Tobacco Use History This section includes a history of the smoking, or tobacco-related health factors, that were collected on or before the date of the Encounter. The data comes from the [place] facility where the Encounter took place. Date/Time Smoking Status/Tobacco Use Comment F acility Jan 20, 2023 03:49 PM [facility]-TO[facility]ACCO FORMER USER [facility] Jan 20, 2023 03:49 PM [facility]-TOBACCO QUIT 15 YRS OR MORE [facility] [facility] Feb 06, 2021 04:28 PM VA-TOBACCO FORMER USER [facility] Feb 06, 2021 04:28 PM VA-TOBACCO QUIT 15 YRS OR MORE [facility] Radiology Reports: +/- 30 days of the [...] the Encounter. The data comes from all [place] treatment facilities. Date/Time Radiology Report Provider Source Aug 10, 2024 02:[address] ABD PEL W/CONT & 3D: ABRAHAM HAWK [id number] -1955 M Exm Date: AUG 10, 2024@14:33 Req Phys: YASIR SANZ MD Pat Loc: [facility]-EMERGENCY DEPT 2ND SHIFT (R Img Loc: [facility]-CT IMAGING [facility] Service: Unknown [facility], [facility] [address] [place] [address] (Case [id number] COMPLETE) CT ABDOMEN AND PELVIS W/CONTRAST (CT Detailed) CPT:71611 Contrast Media : Non-ionic Iodinated Reason for Study: Abdominal pain, vomiting Clinical History: Responsible Attending: Svetlana Attending Contact Number: [phone] Resident Contact Number: Abdominal pain, vomiting Allergies listed in CPRS chart: Patient has answered NKA Creatinine:CREATININE 0.82 mg/dL 08/10/2024 11:30 /eGFR: STL EGFR (within one year). CREATININE 0.82 mg/dL (08/10/24 11:30) Wt: 152.1 lb [68.99 kg] (08/10/2024 11:31) History of: Renal failure, chronic or acute renal disease: NO Report Status: Verified Date Reported: AUG 10, 2024 Date Verified: AUG 10, 2024 Manufacturing Sales Representative E-Sig:/ES/PETROS MCCORD Report: Case [id number]. CT ABDOMEN AND PELVIS W/CONTRAST. Gastrointestinal contrast: [...] inguinal hernias. Dictated by Kenneth Albright DO (residential recycle driver). I, Petros Mccord, have reviewed the images and report and concur with these findings. Primary Interpreting Staff: PETROS MCCORD MD (Manufacturing Sales Representative) Primary Interpreting Resident: KENNETH ALBRIGHT, Compression Molding Machine Tender /PETROS REESE [facility] Aug 01, 2024 10:20 AM PET/CT TUMOR IMAGING (SKULL TO MID-THIGH)-P: ABRAHAM HAWK [id number] -1955 M Exm Date: AUG 01, 2024@10:20 Req Phys: TONY SIMMONS Loc: [facility]-ONCOLOGY [facility] (Req'g Loc) Img Loc: -PET-CT Service: Unknown [facility], [facility] [address] [place] [address] (Case [id number] COMPLETE) PET/CT TUMOR SKULL BASE TO MID-T(NM Detailed) CPT:66147 CPT Modifiers : PS PET TUMOR SUBSQ TX STRATEGY Reason for Study: Nasopharyngeal cancer (Case [id number] COMPLETE) F-18 FLUORODEOXYGLUCOSE (FDG),PER(NM Detailed) CPT:A9552 Clinical History: Report Status: Verified Date Reported: AUG 01, 2024 Date Verified: AUG 01, 2024 Manufacturing Sales Representative E-Sig:/ES/NATASHA LEIJA Report: PATIENT NAME: ABRAHAM HAWK. CASE #: [id number], [id number]. PROCEDURE: PET/CT study Indication: Nasopharyngeal cancer HISTORY: [...] lytic osseous lesion is noted within the fpdbt-cs-otcq. Impression: 1. The previous sites of FDG [...] NEEDED Primary Interpreting Staff: NATASHA LEIJA MD (Manufacturing Sales Representative) /PFT NATASHA LEIJA [facility] Jul 27, 2024 03:41 PM CHEST PORTABLE: ABRAHAM HAWK [id number] -1955 M Exm Date: JUL 27, 2024@15:41 Req Phys: ELIZABETH COATES Loc: [facility] DEPT 2ND SHIFT (R Img Loc: [facility]-MAIN RADIOLOGY SUITE Service: Unknown [facility], [address] [address] (Case [id number] COMPLETE) CHEST PORTABLE (RAD Detailed) CPT:72061 Proc Modifiers : Portable Reason for Study: sob Clinical History: Report Status: Verified Date Reported: JUL 27, 2024 Date Verified: JUL 27, 2024 Manufacturing Sales Representative E-Sig:/ES/Sol Abraham MD Report: CASE [id number]. AP portable view chest. COMPARISON: Chest x-ray [...] advised. Report dictated by Krystian Sultana D.O. (residential recycle driver) I, Sol Abraham, have reviewed the images and report and concur with these findings. Primary Interpreting Staff: Sol Abraham MD, Radiologist (Manufacturing Sales Representative) Primary Interpreting Resident: Krystian Sultana D.O., Resident Physician /MKSOL PABON [facility] Jul 17, 2024 06:[address] ABD PEL W/CONT & 3D: ABRAHAM HAWK [id number] -1955 M Exm Date: JUL 17, 2024@18:18 Req Phys: CASEY BOONE Loc: 4-C [facility]/07-17-2024@19:47 Img Loc: [facility]CT IMAGING [facility] Service: Unknown [facility], [facility] [address] [place] [address] (Case [id number] COMPLETE) CT ABDOMEN AND PELVIS W/CONTRAST (CT Detailed) CPT:91523 Contrast Media : Non-ionic Iodinated Reason for Study: septic shock, abd pain Clinical History: Responsible Attending: Nils Attending Contact Number: [phone] Resident Contact Number: Septic shock, Patient with [...] 17, 2024 Date Verified: JUL 17, 2024 Manufacturing Sales Representative E-Sig: Report: CT THORAX W/CONT (PE) [PRINTSET], CT ABDOMEN AND PELVIS W/CONTRAST [PRINTSET] Comparison: 03/17/2022, 04/23/2024 Clinical History: RO PE The study was protocoled [facility]. Chest 12 series and 1585 images were subsequently received by the [place] [facility] ([facility]) for interpretation. Abdomen and pelvis 9 series and 1365 images were subsequently received by the [place] [facility] ([place]) for interpretation. Total [...] from 09/12/2023. READING PHYSICIAN: Guilherme Talbert M.D. -[phone] 07/17/2024 17:44 [facility] National Teleradiology Program [phone] (For Medical Practitioner Use Only) Attention Patients / Veterans: If you have questions or concerns about these test results, please contact your ordering provider or primary care team. Primary Interpreting Staff: RADIOLOGY,OUTSIDE SERVICE, Staff Physician / RADIOLOGY,OUTSIDE SERVICE [facility] Jul 17, 2024 06:[address] PE CHEST W/3D: ABRAHAM HAWK [id number] -1955 M Exm Date: JUL 17, 2024@18:17 Req Phys: CASEY BOONE Pat Loc: 4-C [facility]/07-17-2024@19:47 Img Loc: [facility]CT IMAGING [facility] Service: Unknown [facility], [facility] [address] [place] [address] (Case [id number] COMPLETE) CT THORAX W/CONT (PE) (CT Detailed) CPT:26643 Contrast Media : unspecified contrast media Reason for Study: RO PE Clinical History: Responsible Attending: Nils Attending Contact Number: [phone] Resident Contact Number: Patient with HCC and [...] 17, 2024 Date Verified: JUL 17, 2024 Manufacturing Sales Representative E-Sig: Report: CT THORAX W/CONT (PE) [PRINTSET], CT ABDOMEN AND PELVIS W/CONTRAST [PRINTSET] Comparison: 03/17/2022, 04/23/2024 Clinical History: RO PE The study was protocoled and supervised at the local [place] facility. Chest 12 series and 1585 images were subsequently received by the [place] [facility] (NTP) for interpretation. Abdomen and pelvis 9 series and 1365 images were subsequently received by the [place] [facility] (NTP) for interpretation. Total [...] previous MRI from 09/12/2023. READING PHYSICIAN: Guilherme aTlbert M.D. -[phone] 07/17/2024 17:44 [facility] [phone] (For Medical Practitioner Use Only) Attention Patients / Veterans: If you have questions or concerns about these test results, please contact your ordering provider or primary care team. Primary Interpreting Staff: RADIOLOGY,OUTSIDE SERVICE, Staff Physician / RADIOLOGY,OUTSIDE SERVICE [facility] Pathology Reports: +/- 30 days of [...] the Encounter. The data comes from all [place] treatment facilities. Date/Time Pathology Report Provider Source [...] Performing Laboratory: Surgical Pathology Report Performed By: [address]# [id number] [address] [place] [id number] $FTR - - - - - - [...] - - ABRAHAM HAWK STANDARD FORM 515 ID:[id number] SEX:M :1955 AGE: 68 LOC:APFEE PCP: Deirdre Wild /eze [place] Pathologist Signed: 08/16/2024 09:43 CRISTIANA [place] [facility] Aug 11, 2024 06:00 AM LR MICROBIOLOGY RE PORT: Accession [UID]: [id number] [[id number]] Received: Aug 11, 2024@06:19 Collection sample: B D BLD. BOTTLE Collection date: Aug 11, 2024 06:00 Site/Specimen: BLOOD Provider: LENKA,GILSON W Test(s) ordered: BLOOD CULT (SET 1)............ completed: Aug 17, 2024 10:06 * BACTERIOLOGY FINAL REPORT => Aug 17, 2024 10:22 TECH CODE: [id number] Bacteriology Remark(s): 08.17.24 KAA Culture shows NO GROWTH IN 6 DAYS =--=--=--=--=--=--=--=--=-- =--=--=--=--=--=--=--=--=-- =--=--=--=--=--=--=--=-- Performing Laboratory: Bacteriology Report [facility] By: [facility] [address] [place], [place] [address]IA# [id number] [address] [phone] JULISSA BROWN [facility] Jul 17, 2024 05:10 PM LR MICROBIOLOGY RE PORT: Accession [UID]: [id number] [[id number]] Received: Jul 17, 2024@17:30 Collection sample: B D BLD. BOTTLE (SET 2)Collection date: Jul 17, 2024 17:10 Site/Specimen: BLOOD Provider: CASEY BOONE Test(s) ordered: BLOOD CULT (SET 2)............ completed: Jul 23, 2024 14:26 * BACTERIOLOGY FINAL REPORT => Jul 23, 2024 14:28 TECH CODE: [id number] Bacteriology Remark(s): CULTURE IS NEGATIVE TO DATE, ALL POSITIVES ARE ROUTINELY CALLED. KI Culture shows NO GROWTH IN 6 DAYS. 07/23/24 KI =--=--=--=--=--=--=--=--=-- =--=--=--=--=--=--=--=--=-- =--=--=--=--=--=--=--=-- Performing Laboratory: Bacteriology Report Performed By: [address] CLIA# [id number] [address] [place] [id number] JULISSA BROWN [facility] Jul 17, 2024 05:10 PM LR MICROBIOLOGY RE PORT: Accession [UID]: [id number] [[id number]] Received: Jul 17, 2024@17:30 Collection sample: B D BLD. BOTTLE Collection date: Jul 17, 2024 17:10 Site/Specimen: BLOOD Provider: CASEY BOONE Test(s) ordered: BLOOD CULT (SET 1)............ completed: Jul 23, 2024 14:26 * BACTERIOLOGY FINAL REPORT => Jul 23, 2024 14:28 TECH CODE: [id number] Bacteriology Remark(s): CULTURE IS NEGATIVE TO DATE, ALL POSITIVES ARE ROUTINELY CALLED. KI Culture shows NO GROWTH IN 6 DAYS. 07/23/24 KI =--=--=--=--=--=--=--=--=-- =--=--=--=--=--=--=--=--=-- =--=--=--=--=--=--=--=-- Performing Laboratory: Bacteriology Report Performed By: [address] CLIA# [id number] [address] [place] [phone] JULISSA BROWN [facility] Encounter Notes: All associated encounter notes This section contains the clinical notes associated to the Encounter. Date/Time Encounter Note(s) Provider Source Jul 18, 2024 12:38 PM ANESTHESIOLOGY QUINN WSHEET: LOCAL TITLE: ANES INTRA-OP FLOWSHEET STL STANDARD TITLE: ANESTHESIOLOGY FLOWSHEET DATE OF NOTE: JUL 18, 2024@12:38 ENTRY DATE: JUL 18, 2024@12:38:45 AUTHOR: MORALES BHATT COSIGNER: URGENCY: STATUS: COMPLETED Patient: ABRAHAM HAWK SSN: [id number] Date of Operation: 07/18/2024 Surgery Start Time: Surgery End Time: Anesthesia Care Start: 07/18/2024 12:16 Anesthesia Care End: 07/18/2024 12:37 Anesthesia Method: Monitored 07/18/2024 12:18 (Primary), Level Of Consciousness: Sedated, Monitors Applied, Oxygen Therapy: Mask, EtCO2 Verified: Waveform Positioning: Head Neutral, Head And Neck In Alignment With Spine, Pressure Points Padded & Checked, Eyes, Ears And Nose Free Of Pressure, Other Pressure Points (describe): ASA Number: 4 Procedure: ugi Diagnosis: melena Holding, Anesthesia, PACU Drugs: ------- Lidocaine: 100 mg Propofol: 40 mg Propofol gtt: 94.084 mg DexmedeTOMidine: 8 mcg Glycopyrrolate: 0.2 mg Etomidate: 4 mg Holding, Anesthesia, PACU Fluids: -------- Normal Saline: 250 ml Resources: Headrest - Pillow Staff: --------- MORALES BHATT PRIN. ANES. CHALASANI, JAMUNA, ANES. SUPER. Procedure Date: 07/18/2024 Procedure Start Time: 07/18/2024 12:25 Procedure End Time: 07/18/2024 12:33 /SLOANE Hallman, MED ASST MED ASST, Anesthesiology Signed: 07/18/2024 12:38 MORALES BHATT I [facility]
--- OUTSIDE RECORDS SUMMARY | 2024-10-08 17:07 | XMS_ITS ---
Author Name [facility] [place] [facility] [place] Address [address] [place] [address] Care Team Providers Care Inorganic Chemistry Professor Name Role Phone SUKHJINDER CHAHAL Primary Care [...] SUPPL EMENT Nov 25, 2021 PLAN G [id number] [phone] ELLEN HAWK VID PATIENT AARP MED SUPP MEDIGAP PLAN G MEDIC ARE SUPPL EMENT Nov 25, 2021 PLAN G [id number] [phone] ELLEN HAWK VID PATIENT MEDICARE (WNR) MEDICARE (M) PART B Sep 25, 2021 PART B [id number] [phone] ELLEN HAWK VID PATIENT MEDICARE (WNR) MEDICARE (M) PART A Aug 25, 2021 PART A [id number] ELLEN HAWK PATIENT Selected Encounter This section includes the information on record at [place] for the Encounter. 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 Date/Time Primary/Secondary Diagnosis Diagnosis Name Provider Source Oct 08, 2024 08:13 AM PRIMARY Malignant neoplasm of nasopharynx, unspecified REINACHER,ERIC DI [facility] Plan of Treatment: Future Appointments (+ 6 months) and Future Tests (+/- 45 days) The Plan of Treatment section includes future care activities for the patient from all [place] [facility]. This section includes future appointments and future orders which are active, pending or scheduled. Future Appointments This section includes appointments that were scheduled to occur 6 months from the date of the Encounter, up to a maximum of 20 appointments. The [facility] comes from all [facility]. Appointment Date/Time Appointment Type Appointme nt Facility Name Oct 15, 2024 03:00 PM AMBULATORY - SURGERY [facility] Oct 19, 2024 02:00 PM AMBULATORY - NONE [facility] Active, Pending, and Scheduled Orders This section includes a listing of several types of active, pending, and scheduled orders, including clinic medications orders, diagnostic test orders, procedure orders and consult orders; where thestart date of the order is 45 days before the date of the Encounter or 45 days after the date of the Encounter. The data comes from all [facility] hospital. Test Date/Time Test Type Test Details Facility Name Sep 27, 2024 12:00 AM Laboratory - Chemistry Order CBC BLOOD SP [facility] Sep 27, 2024 12:00 AM Laboratory - Chemistry Order COMPREHENSIVE METABOLIC PANEL GREEN LI/HEP BLD/PLAS PLASMA SP [facility] Oct 19, 2024 12:00 AM Imaging - Magnetic Resonance Imaging (MRI) Order MRI ABDOMEN W/O&W CONT [facility] Social History: Smoking Status (Most current) and Tobacco Use (All prior to encounter date) This section includes the most current, and the historical, smoking and tobacco- related health factors from the [facility] facility where the Encounter took place. Current Smoking Status This section includes the most current smoking, or tobacco-related health factor, from the [facility] where the Encounter took place. Date/Time Current Smoking Status Comment Facil ity Jul 17, 2024 04:02 PM ORYX ADMIT TOBACCO SCREEN NO [facility] Tobacco Use History This section includes a history of the smoking, or tobacco-related health factors, that were collected on or before the date of the Encounter. The data comes from the [facility] where the Encounter took place. Date/Time Smoking Status/Tobacco Use Comment F acility Jan 20, 2023 03:49 PM VA-TOBACCO FORMER USER [facility] Jan 20, 2023 03:49 PM VA-TOBACCO QUIT 15 YRS OR MORE [facility] Feb 06, 2021 04:28 PM VA-TOBACCO FORMER USER [facility] Feb 06, 2021 04:28 PM VA-TOBACCO QUIT 15 YRS OR MORE [facility] Encounter Notes: All associated encounter notes This section contains the clinical notes associated to the Encounter. Date/Time Encounter Note(s) Provider Source Oct 08, 2024 08:14 AM NURSING TELEPHONE ENCOUNTER NOTE: LOCAL TITLE: HEM-ONC RN PHONE VISIT [facility] STANDARD TITLE: NURSING TELEPHONE ENCOUNTER NOTE DATE OF NOTE: OCT 08, 2024@08:14 ENTRY DATE: OCT 08, 2024@08:14:06 AUTHOR: MATILDE GRAMAJO EXP COSIGNER: URGENCY: STATUS: COMPLETED Hem/Onc RN Phone Visit: Patient identifiers (two required): - Full name - Telephone number Inbound call from patient/other: - Inbound call from patient. HISTORY OF PROBLEM: - Patient diagnosis: Nasopharyngeal cancer - Reason for call: Blood in stools started again ASSESSMENT: VSD - Detailed Vitals Date Vital Measurement Qualifiers 09/07/2024 11:38 Temp F (C) 97.3 (36.3) Pulse 78 Respir 18 BP 122/76 Wt lbs (kg)[BMI] 156.8 (71.12)[21] Pain 0 POx (L/Min)(%) 100 PLAN OF CARE: - Recommend - Pt present instructed to go to the nearest Emergency Department for urgent Assessment. - Total time spent on phone call: 6 min /loly/ MATILDE REINACHER,BSN,RN,OCN REGISTERED NURSE Signed: 10/08/2024 08:16 MATILDE GRAMAJO [facility]
--- OUTSIDE RECORDS SUMMARY | 2024-10-08 17:07 | XMS_ITS | Encounter Summary ---
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 Date/Time Encounter Type Encounter Description Reason Provider Source Aug 10, 2024 11:59 AM EMERGENCY DEPT VISIT [facility] EMERGENCY DEPT ICD-10-CM K92.2 Gastrointestinal hemorrhage, unspecified YASIR SANZ MD [facility] Encounter Template Text not used by [place] Assessments - Encounter Diagnoses This section includes the primary and secondary diagnoses documented for the Encounter. Date/Time Primary/Secondary Diagnosis Diagnosis Name Provider Source Aug 10, 2024 06:02 PM PRIMARY Gastrointestinal hemorrhage, unspecified YASIR SANZ MD [facility] Plan of Treatment: Future Appointments (+ 6 months) and Future Tests (+/- 45 days) The Plan of Treatment section includes future care activities for the [facility] This section includes future appointments and future orders which are active, pending or scheduled. Future Appointments This section includes appointments that were scheduled to occur 6 months from the date of the Encounter, up to a maximum of 20 appointments. The data comes from all [place] treatment facilities. Appointment Date/Time Appointment Type Appointme nt Facility Name Aug 16, 2024 10:00 AM AMBULATORY - MEDICINE [facility] Aug 17, 2024 08:30 AM AMBULATORY - MEDICINE [facility] Aug 17, 2024 09:00 AM AMBULATORY - MEDICINE [facility] Aug 17, 2024 09:30 AM AMBULATORY - MEDICINE [facility] Aug 23, 2024 12:00 PM AMBULATORY - NONE [facility] Aug 31, 2024 02:00 PM AMBULATORY - MEDICINE [facility] Sep 07, 2024 11:00 AM AMBULATORY - MEDICINE [facility] Sep 07, 2024 01:00 PM AMBULATORY - MEDICINE [facility] Oct 15, 2024 03:00 PM AMBULATORY - SURGERY [facility] Oct 19, 2024 02:00 PM AMBULATORY - NONE [facility] Active, Pending, and Scheduled Orders This section includes a listing of several types of active, pending, and scheduled orders, including clinic medications orders, diagnostic test orders, procedure orders and consult orders; where the start date of the order is 45 days before the date of the Encounter or 45 days after the date of theEncounter. The data comes from all [facility]. Test Date/Time Test Type Test Details Facility Name Jul 17, 2024 12:00 AM Laboratory - Blood Bank Order RED BLOOD CELLS - LAB VBECS - NO SPECIMEN REQUIRED [facility] Jul 17, 2024 12:00 AM Laboratory - Blood Bank Order FRESH FROZEN PLASMA - LAB VBECS - NO SPECIMEN REQUIRED [facility] Jul 17, 2024 06:13 PM Laboratory - Blood Bank Order DIRECT ANTIGLOBULIN TEST - LAB BLOOD STAT [facility] Jul 17, 2024 06:13 PM Laboratory - Blood Bank Order TYPE & SCREEN - LAB BLOOD [facility] Jul 18, 2024 12:00 AM Laboratory - Blood Bank Order PLATELETS - LAB VBECS - NO SPECIMEN REQUIRED [facility] Aug 10, 2024 12:00 AM Laboratory - Blood Bank Order RED BLOOD CELLS - LAB VBECS - NO SPECIMEN REQUIRED [facility] Aug 10, 2024 02:00 PM Laboratory - Blood Bank Order TYPE & SCREEN - LAB BLOOD [facility] Aug 10, 2024 05:43 PM Laboratory - Chemistry Order LIPASE GREEN LI/HEP BLD/PLAS PLASMA STAT I ONCE [facility] Aug 10, 2024 05:44 PM Laboratory - Microbiology Order BLOOD CULT (SET 2) B D BLD. BOTTLE (SET 2) BLOOD JOANN I NOW [facility] Aug 11, 2024 02:00 AM Laboratory - Chemistry Order CBC BLOOD [facility] Aug 14, 2024 02:00 AM Laboratory - Chemistry Order CBC BLOOD [facility] Aug 15, 2024 02:00 AM Laboratory - Chemistry Order CBC BLOOD [facility] Aug 16, 2024 12:00 AM Laboratory - Chemistry Order CBC BLOOD [facility] Aug 16, 2024 08:00 PM Laboratory - Chemistry Order CBC BLOOD [facility] Aug 17, 2024 08:00 PM Laboratory - Chemistry Order CBC BLOOD [facility] Lab Results: +/- 30 days of the encounter This section includes the Chemistry and Hematology Lab Results on record with [place] for the patient. Radiology Reports and Pathology Reports are provided separately, in subsequent sections. Lab Results This section contains the Chemistry/Hematology Results that were resulted 30 days before or 30 daysafter the date of the Encounter. Date/Time Source Result Type Result - Unit Interpretation Reference Range Specimen Type Comment Sep 07, 2024 12:39 PM [facility] COMPREHENSIVE METABOLIC PANEL PLASMA Specimen Type: PLASMA Comment: No hemolysis noted. Ordering Provider: TONY SIMMONS Report Released Date/Time: Aug 31, 2024 02:42 PM Reporting Lab: [address] [address] Performing Lab: [address] [address] CREATININE 0.87 mg/dL 0.7-1.3 UREA NITROGEN 24.5 [...] 94.0 >60 Sep 07, 2024 12:39 PM [facility] CBC BLOOD Specimen Type: BLOOD No comment entered. Ordering Provider: TONY SIMMONS Report Released Date/Time: Aug 31, 2024 02:42 PM Reporting Lab: [address] [address] Performing Lab: [address] [address] WBC 5.1 10*3/uL 3.6-11.2 RBC 3.44 10*6/uL [...] 10*3/uL 2.10-8.00 Sep 07, 2024 12:39 PM [facility] ALPHA-FETOPROTEIN(STL-PB) SERUM Specimen Type : SERUM No comment entered. Ordering Provider: CRYSTAL MASSEY Report Released Date/Time: Sep 07, 2024 11:59 AM Reporting Lab: [facility] [address] [address] Performing Lab: [address] [address] ALPHA-FETOPROTEIN(STL-PB) 15.01 ng/mL H 1- 8.78 Aug 31, 2024 02:04 PM [facility] COMPREHENSIVE METABOLIC PANEL PLASMA Specimen Type: PLASMA Comment: No hemolysis noted. Ordering Provider: TONY SIMMONS Report Released Date/Time: Aug 27, 2024 12:35 PM Reporting Lab: [place] [id number] [address] [address] Performing Lab: [facility] [address] [place] [address] CREATININE 0.90 mg/dL 0.7-1.3 UREA NITROGEN 26.4 [...] 93.6 >60 Aug 31, 2024 02:04 PM [facility] CBC BLOOD Specimen Type: BLOOD No comment entered. Ordering Provider: TONY SIMMONS Report Released Date/Time: Aug 27, 2024 12:35 PM Reporting Lab: [address] [address] Performing Lab: [address] [address] WBC 4.7 10*3/uL 3.6-11.2 RBC 3.54 10*6/uL [...] 10*3/uL 2.10-8.00 Aug 17, 2024 03:34 PM [facility] TSH W/ REFLEX FT4 (STL) PLASMA Specimen Type: PLASMA No comment entered. Ordering Provider: TONY SIMMONS Report Released Date/Time: Aug 10, 2024 12:01 PM Reporting Lab: [place] [address] [place] [address] Performing Lab: [place] [phone] TSH 4.570 u[IU]/mL 0.47-5 Aug 17, 2024 03:34 PM [facility] COMPREHENSIVE METABOLIC PANEL PLASMA Specimen Type: PLASMA Comment: No hemolysis noted. Ordering Provider: TONY SIMMONS Report Released Date/Time: Aug 10, 2024 12:01 PM Reporting Lab: [place] [address] [place] [phone] Performing Lab: [place] [address] [place] [phone] CREATININE 0.85 mg/dL 0.7-1.3 UREA NITROGEN 11.5 [...] 95.2 >60 Aug 17, 2024 03:34 PM [facility] CBC BLOOD Specimen Type: BLOOD Comment: No Clots Ordering Provider: TONY SIMMONS Report Released Date/Time: Aug 10, 2024 12:01 PM Reporting Lab: [facility] [address] [facility] [place] [address] Performing Lab: [address] [address] WBC 5.0 10*3/uL 3.6-11.2 RBC 2.83 10*6/uL [...] 4.9 1.0-7.0 Aug 15, 2024 07:20 AM [facility] CBC BLOOD Specimen Type: BLOOD Comment: No clots detected in specimen. Ordering Provider: CASH CLOUD Report Released Date/Time: Aug 12, 2024 01:47 PM Reporting Lab: [facility] [address] [facility] [place] [address] Performing Lab: [address] [address] WBC 4.9 10*3/uL 3.6-11.2 RBC 2.93 10*6/uL [...] 10*3/uL 2.10-8.00 Aug 15, 2024 04:54 AM [facility] GLUCOSE,BLOOD-poct (STL) BLOOD Specimen Type: BLOOD Comment: Test Performed by: [id number] Meter #: [id number] Ordering Provider: DEIRDRE WILD Report Released Date/Time: Aug 15, 2024 05:21 AM Reporting Lab: [address] [address] Performing Lab: [address] [address] GLUCOSE,BLOOD-poct (STL) 112 mg/dL H 72-99 Aug 14, 2024 08:30 PM [facility] CRP PLASMA Specimen Type: PLASM A No comment entered. Ordering Provider: CASH CLOUD Report Released Date/Time: Aug 12, 2024 10:14 AM Reporting Lab: [address] [address] Performing Lab: [address] [address] CRP 0.7 mg/dL H 0-0.5 Aug 14, 2024 08:30 PM [facility] CBC BLOOD Specimen Type: BLOOD No comment entered. Ordering Provider: GILSON OG Report Released Date/Time: Aug 10, 2024 04:01 PM Reporting Lab: [address] [address] Performing Lab: [address] [address] WBC 4.6 10*3/uL 3.6-11.2 RBC 2.83 10*6/uL [...] 10*3/uL 2.10-8.00 Aug 14, 2024 07:54 PM [facility] GLUCOSE,BLOOD-poct (STL) BLOOD Specimen Type: BLOOD Comment: Test Performed by: [id number] Meter #: [id number] Ordering Provider: DEIRDRE WILD Report Released Date/Time: Aug 14, 2024 08:15 PM Reporting Lab: [address] [address] Performing Lab: [address] [address] GLUCOSE,BLOOD-poct (STL) 112 mg/dL H 72-99 Aug 14, 2024 04:10 PM [facility] GLUCOSE,BLOOD-poct (STL) BLOOD Specimen Type: BLOOD Comment: Test Performed by: [id number] Meter #: [id number] Ordering Provider: DEIRDRE WILD Report Released Date/Time: Aug 14, 2024 04:43 PM Reporting Lab: [address] [address] Performing Lab: [address] [address] GLUCOSE,BLOOD-poct (L) 115 mg/dL H 72-99 Aug 14, 2024 02:05 PM [facility] COMPREHENSIVE METABOLIC PANEL PLASMA Specimen Type: PLASMA Comment: No hemolysis noted. Ordering Provider: GILSON OG Report Released Date/Time: Aug 14, 2024 06:56 AM Reporting Lab: [place] [address] [facility] [place] [address] Performing Lab: [address] [address] CREATININE 0.75 mg/dL 0.7-1.3 UREA NITROGEN 9.3 [...] 98.9 >60 Aug 14, 2024 02:05 PM [facility] CBC BLOOD Specimen Type: BLOOD Comment: No platelet clots or clumping detected. Ordering Provider: GILSON OG Report Released Date/Time: Aug 10, 2024 04:01 PM Reporting Lab: [facility] [address] [address] Performing Lab: [facility] [address] [facility] [place] [address] WBC 4.6 10*3/uL 3.6-11.2 RBC 3.06 10*6/uL [...] 10*3/uL 2.10-8.00 Aug 14, 2024 10:12 AM [facility] GLUCOSE,BLOOD-poct (STL) BLOOD Specimen Type: BLOOD Comment: Test Performed by: [id number] Meter #: [id number] Ordering Provider: DEIRDRE WILD Report Released Date/Time: Aug 14, 2024 10:13 AM Reporting Lab: [place] [address] Performing Lab: [place] [address] GLUCOSE,BLOOD-poct (STL) 112 mg/dL H 72-99 Aug 14, 2024 09:20 AM [facility] PT/INR NEW (STL-MA) PLASMA Specimen Type: PLAS MA No comment entered. Ordering Provider: GILSON OG Report Released Date/Time: Aug 14, 2024 09:06 AM Reporting Lab: [place] [address] Performing Lab: [place] [address] PROTIME 13.6 s H 9.4-12.5 INR VALUE 1.2 {INR} Aug 14, 2024 06:51 AM [facility] CBC BLOOD Specimen Type: BLOOD No comment entered. Ordering Provider: CASH CLOUD Report Released Date/Time: Aug 12, 2024 01:47 PM Reporting Lab: [place] [address] Performing Lab: [place] [address] WBC 3.8 10*3/uL 3.6-11.2 RBC 2.56 10*6/uL [...] 10*3/uL 2.10-8.00 Aug 14, 2024 06:03 AM [facility] GLUCOSE,BLOOD-poct (STL) BLOOD Specimen Type: BLOOD Comment: Test Performed by: [id number] Meter #: [id number] Ordering Provider: DEIRDRE WILD Report Released Date/Time: Aug 14, 2024 06:07 AM Reporting Lab: [address] [address] Performing Lab: [address] [address] GLUCOSE,BLOOD-poct (STL) 114 mg/dL H 72-99 Aug 13, 2024 09:11 PM [facility] GLUCOSE,BLOOD-poct (STL) BLOOD Specimen Type: BLOOD Comment: Test Performed by: [id number] Meter #: [id number] Ordering Provider: DEIRDRE WILD Report Released Date/Time: Aug 13, 2024 09:40 PM Reporting Lab: [address] [address] Performing Lab: [address] [address] GLUCOSE,BLOOD-poct (STL) 160 mg/dL H 72-99 Aug 13, 2024 07:10 PM [facility] COMPREHENSIVE METABOLIC PANEL PLASMA Specimen Type: PLASMA Comment: No hemolysis noted. Ordering Provider: GILSON OG Report Released Date/Time: Aug 14, 2024 07:03 AM Reporting Lab: [address] [address] Performing Lab: [facility] [address] [address] CREATININE 0.75 mg/dL 0.7-1.3 UREA NITROGEN 10.3 [...] 98.9 >60 Aug 13, 2024 07:10 PM [facility] CRP PLASMA Specimen Type: PLASM A No comment entered. Ordering Provider: CASH CLODU Report Released Date/Time: Aug 12, 2024 10:14 AM Reporting Lab: [address] [address] Performing Lab: [address] [address] CRP 0.7 mg/dL H 0-0.5 Aug 13, 2024 07:10 PM [facility] CBC BLOOD Specimen Type: BLOOD No comment entered. Ordering Provider: GILSON OG Report Released Date/Time: Aug 10, 2024 04:01 PM Reporting Lab: [address] [address] Performing Lab: [address] [address] WBC 5.3 10*3/uL 3.6-11.2 RBC 2.67 10*6/uL [...] 10*3/uL 2.10-8.00 Aug 13, 2024 04:35 PM [facility] GLUCOSE,BLOOD-poct (STL) BLOOD Specimen Type: BLOOD Comment: Test Performed by: [id number] Meter #: [id number] Ordering Provider: DEIRDRE WILD Report Released Date/Time: Aug 13, 2024 05:18 PM Reporting Lab: [address] [address] Performing Lab: [address] [address] GLUCOSE,BLOOD-poct (L) 113 mg/dL H 72-99 Aug 13, 2024 02:36 PM [facility] CBC BLOOD Specimen Type: BLOOD No comment entered. Ordering Provider: GILSON OG Report Released Date/Time: Aug 10, 2024 04:01 PM Reporting Lab: [address] [address] Performing Lab: [address] [address] WBC 5.8 10*3/uL 3.6-11.2 RBC 2.77 10*6/uL [...] 10*3/uL 2.10-8.00 Aug 13, 2024 11:37 AM [facility] GLUCOSE,BLOOD-poct (STL) BLOOD Specimen Type: BLOOD Comment: Test Performed by: [id number] Meter #: [id number] Ordering Provider: DEIRDRE WILD Report Released Date/Time: Aug 13, 2024 11:38 AM Reporting Lab: [address] [address] Performing Lab: [address] [address] GLUCOSE,BLOOD-poct (STL) 131 mg/dL H 72-99 Aug 13, 2024 08:06 AM [facility] CBC BLOOD Specimen Type: BLOOD Comment: no clot Ordering Provider: CASH CLOUD Report Released Date/Time: Aug 12, 2024 01:47 PM Reporting Lab: [address] [address] Performing Lab: [address] [place] [address] WBC 3.0 10*3/uL L 3.6-11.2 RBC 2.61 [...] 10*3/uL 2.10-8.00 Aug 13, 2024 04:45 AM [facility] GLUCOSE,BLOOD-poct (STL) BLOOD Specimen Type: BLOOD Comment: Test Performed by: [id number] Meter #: [id number] Ordering Provider: DEIRDRE WILD Report Released Date/Time: Aug 13, 2024 06:18 AM Reporting Lab: [address] [address] Performing Lab: [address] [address] GLUCOSE,BLOOD-poct (STL) 139 mg/dL H 72-99 Aug 12, 2024 10:10 PM [facility] GLUCOSE,BLOOD-poct (STL) BLOOD Specimen Type: BLOOD Comment: Test Performed by: [id number] Meter #: [id number] Ordering Provider: DEIRDRE WILD Report Released Date/Time: Aug 12, 2024 10:50 PM Reporting Lab: [address] [address] Performing Lab: [address] [address] GLUCOSE,BLOOD-poct (STL) 105 mg/dL H 72-99 Aug 12, 2024 08:48 PM [facility] CBC BLOOD Specimen Type: BLOOD Comment: SEE PREVIOUS DIFFERENTIAL ON 08/12/24 @ 1800 Ordering Provider: GILSON OG Report Released Date/Time: Aug 10, 2024 04:01 PM Reporting Lab: [address] [address] Performing Lab: [address] [address] WBC 5.0 10*3/uL 3.6-11.2 RBC 2.78 10*6/uL [...] PLT FRACTION 6.5 1.0-7.0 Aug 12, 2024 08:48 PM [facility] CRP PLASMA Specimen Type: PLASM A No comment entered. Ordering Provider: CASH CLOUD Report Released Date/Time: Aug 12, 2024 10:14 AM Reporting Lab: [address] [address] Performing Lab: [address] [address] CRP 0.6 mg/dL H 0-0.5 Aug 12, 2024 04:51 PM [facility] GLUCOSE,BLOOD-poct (STL) BLOOD Specimen Type: BLOOD Comment: Test Performed by: [id number] Meter #: [id number] Ordering Provider: DEIRDRE WILD Report Released Date/Time: Aug 12, 2024 05:07 PM Reporting Lab: [address] [address] Performing Lab: [address] [address] GLUCOSE,BLOOD-poct (STL) 135 mg/dL H 72-99 Aug 12, 2024 02:33 PM [facility] CBC BLOOD Specimen Type: BLOOD No comment entered. Ordering Provider: GILSON OG Report Released Date/Time: Aug 10, 2024 04:01 PM Reporting Lab: [address] [address] Performing Lab: [address] [address] WBC 4.0 10*3/uL 3.6-11.2 RBC 2.56 10*6/uL [...] 10*3/uL 2.10-8.00 Aug 12, 2024 11:51 AM [facility] GLUCOSE,BLOOD-poct (STL) BLOOD Specimen Type: BLOOD Comment: Test Performed by: [id number] Meter #: [id number] Ordering Provider: DEIRDRE WILD Report Released Date/Time: Aug 12, 2024 12:26 PM Reporting Lab: [address] [address] Performing Lab: [address] [address] GLUCOSE,BLOOD-poct (STL) 139 mg/dL H 72-99 Aug 12, 2024 07:35 AM [facility] CBC BLOOD Specimen Type: BLOOD Comment: prev diff 08/11/24. Ordering Provider: GILSON OG Report Released Date/Time: Aug 10, 2024 04:01 PM Reporting Lab: [address] [address] Performing Lab: [address] [address] WBC 3.0 10*3/uL L 3.6-11.2 RBC 2.54 [...] 0.00-0. 20 Aug 12, 2024 05:49 AM [facility] GLUCOSE,BLOOD-poct (STL) BLOOD Specimen Type: BLOOD Comment: Test Performed by: [id number] Meter #: [id number] Ordering Provider: DEIRDRE WILD Report Released Date/Time: Aug 12, 2024 05:50 AM Reporting Lab: [address] [address] Performing Lab: [address] [address] GLUCOSE,BLOOD-poct (STL) 112 mg/dL H 72-99 Aug 12, 2024 01:45 AM [facility] CBC BLOOD Specimen Type: BLOOD Comment: SEE PREVIOUS DIFFERENTIAL ON 08/12/24 @ 0239 [facility] Ordering Provider: GILSON OG Report Released Date/Time: Aug 10, 2024 04:01 PM Reporting Lab: [address] [address] Performing Lab: [address] [address] WBC 2.6 10*3/uL L 3.6-11.2 RBC 2.42 [...] 6.4 1.0-7.0 Aug 11, 2024 09:25 PM [facility] CBC BLOOD Specimen Type: BLOOD No comment entered. Ordering Provider: GILSON OG Report Released Date/Time: Aug 10, 2024 04:01 PM Reporting Lab: [facility] [address] [place] [address] Performing Lab: [address] [address] WBC 3.6 10*3/uL 3.6-11.2 RBC 2.54 10*6/uL [...] 10*3/uL 2.10-8.00 Aug 11, 2024 09:17 PM [facility] GLUCOSE,BLOOD-poct (STL) BLOOD Specimen Type: BLOOD Comment: Test Performed by: [id number] Meter #: [id number] Ordering Provider: DEIRDRE WILD Report Released Date/Time: Aug 11, 2024 09:21 PM Reporting Lab: [place] [id number] Performing Lab: [address] [address] GLUCOSE,BLOOD-poct (STL) 167 mg/dL H 72-99 Aug 11, 2024 04:42 PM [facility] CBC BLOOD Specimen Type: BLOOD No comment entered. Ordering Provider: YVONNE HARRISON Report Released Date/Time: Aug 11, 2024 04:41 PM Reporting Lab: [address] [address] Performing Lab: [address] [address] WBC 4.0 10*3/uL 3.6-11.2 RBC 2.74 10*6/uL [...] 10*3/uL 2.10-8.00 Aug 11, 2024 04:30 PM [facility] GLUCOSE,BLOOD-poct (STL) BLOOD Specimen Type: BLOOD Comment: Test Performed by: [id number] Meter #: [id number] Ordering Provider: DEIRDRE WILD Report Released Date/Time: Aug 11, 2024 06:06 PM Reporting Lab: [address] [address] Performing Lab: [place] [address] GLUCOSE,BLOOD-poct (STL) 95 mg/dL 72-99 Aug 11, 2024 11:08 AM [facility] GLUCOSE,BLOOD-poct (L) BLOOD Specimen Type: BLOOD Comment: Test Performed by: [id number] Meter #: [id number] Ordering Provider: DEIRDRE WILD Report Released Date/Time: Aug 11, 2024 11:10 AM Reporting Lab: [address] [address] Performing Lab: [address] [address] GLUCOSE,BLOOD-poct (L) 117 mg/dL H 72-99 Aug 11, 2024 06:00 AM [facility] PT/INR NEW (STL-MA) PLASMA Specimen Type: PLAS MA No comment entered. Ordering Provider: GILSON OG Report Released Date/Time: Aug 10, 2024 06:20 PM Reporting Lab: [place] [address] Performing Lab: [address] [address] PROTIME 15.5 s H 9.4-12.5 INR VALUE 1.4 {INR} Aug 11, 2024 06:00 AM [facility] IRON/TIBC PROFILE SERUM Specimen Type: SERUM No comment entered. Ordering Provider: GILSON OG Report Released Date/Time: Aug 10, 2024 04:02 PM Reporting Lab: [address] [address] Performing Lab: [address] [address] TIBC 263 ug/dL 250-450 TRANSFERRIN 210 mg/dL 163-344 IRON SATURATION 8 L 20-50 IRON 21 ug/dL L 65-175 Aug 11, 2024 06:00 AM [facility] HEPATIC FUNTION PANEL (STL) PLASMA Specimen Ty pe: PLASMA No comment entered. Ordering Provider: GILSON OG Report Released Date/Time: Aug 10, 2024 04:02 PM Reporting Lab: [address] [address] Performing Lab: [address] [address] PROTEIN 5.4 g/dL L 6-8.6 ALBUMIN 2.6 g/dL L 3.4-5 TOTAL BILIRUBIN 0.8 mg/dL 0.2-1.2 ALKALINE PHOSPHATASE 72 U/L 40-150 AST/SGOT 28 U/L 5-34 ALT/SGPT 10 U/L 8-40 CONJ. BILIRUBIN 0.4 mg/dL 0-0.5 Aug 11, 2024 06:00 AM [facility] APTT PLASMA Specimen Type: PLASM A No comment entered. Ordering Provider: GILSON OG Report Released Date/Time: Aug 10, 2024 06:20 PM Reporting Lab: [address] [address] Performing Lab: [address] [address] APTT 25.5 s L 26.7-39.9 Aug 11, 2024 06:00 AM [facility] CBC BLOOD Specimen Type: BLOOD No comment entered. Ordering Provider: GILSON OG Report Released Date/Time: Aug 10, 2024 04:01 PM Reporting Lab: [address] [address] Performing Lab: [address] [address] WBC 2.4 10*3/uL L 3.6-11.2 RBC 2.42 [...] L 2.10-8.00 Aug 10, 2024 09:00 PM [facility] BASIC METABOLIC PANEL PLASMA Specimen Type: PL ASMA Comment: No hemolysis noted. Ordering Provider: GILSON OG Report Released Date/Time: Aug 10, 2024 04:01 PM Reporting Lab: [address] [address] Performing Lab: [address] [place] [address] CREATININE 0.84 mg/dL 0.7-1.3 UREA NITROGEN 16.8 mg/dL 9.0-25.0 GLUCOSE 104 mg/dL H 72-99 SODIUM 133 meq/L L 136-145 POTASSIUM 3.5 meq/L 3.5-5 CHLORIDE 103 meq/L 98-107 CARBON DIOXIDE 23 meq/L 22-31 CALCIUM 8.4 mg/dL 8.4-10.4 EGFR (CKD-EPI 2020) 95.6 >60 Aug 10, 2024 09:00 PM [facility] CBC BLOOD Specimen Type: BLOOD No comment entered. Ordering Provider: GILSON OG Report Released Date/Time: Aug 10, 2024 04:01 PM Reporting Lab: [address] [address] Performing Lab: [address] [address] WBC 4.3 10*3/uL 3.6-11.2 RBC 2.22 10*6/uL [...] 10*3/uL 2.10-8.00 Aug 10, 2024 06:30 PM [facility] MRSA SURVL NARES DNA NARES Specimen [...] Aug 10, 2024 04:01 PM Reporting Lab: [address] [address] Performing Lab: [address] [address] MRSA SURVL NARES DNA Negative Negative Aug 10, 2024 06:02 PM [facility] GLUCOSE,BLOOD-poct (STL) BLOOD Specimen Type: BLOOD Comment: Test Performed by: [id number] Meter #: [id number] Ordering Provider: YASIR SANZ MD Report Released Date/Time: Aug 10, 2024 06:04 PM Reporting Lab: [address] [address] Performing Lab: [address] [address] GLUCOSE,BLOOD-poct (STL) 94 mg/dL 72-99 Aug 10, 2024 02:12 PM [facility] PT/INR NEW (STL-MA) PLASMA Specimen Type: PLAS MA No comment entered. Ordering Provider: YASIR SANZ MD Report Released Date/Time: Aug 10, 2024 02:00 PM Reporting Lab: [address] [address] Performing Lab: [place] [id number] [facility] [place] [address] PROTIME 13.8 s H 9.4-12.5 INR VALUE 1.2 {INR} Aug 10, 2024 02:12 PM [facility] APTT PLASMA Specimen Type: PLASM A No comment entered. Ordering Provider: YASIR SANZ MD Report Released Date/Time: Aug 10, 2024 02:00 PM Reporting Lab: [address] [address] Performing Lab: [address] [address] APTT 20.1 s L 26.7-39.9 Aug 10, 2024 11:30 AM [facility] TSH W/ REFLEX FT4 (STL) PLASMA Specimen Type: PLASMA No comment entered. Ordering Provider: TONY SIMMONS Report Released Date/Time: Aug 02, 2024 12:33 PM Reporting Lab: [address] [address] Performing Lab: [address] [address] TSH 3.991 u[IU]/mL 0.47-5 Aug 10, 2024 11:30 AM [facility] COMPREHENSIVE METABOLIC PANEL PLASMA Specimen Type: PLASMA Comment: No hemolysis noted. Ordering Provider: TONY SIMMONS Report Released Date/Time: Aug 02, 2024 12:33 PM Reporting Lab: [address] [address] Performing Lab: [address] [address] CREATININE 0.82 mg/dL 0.7-1.3 UREA NITROGEN 21.7 [...] 96.3 >60 Aug 10, 2024 11:30 AM [facility] CBC BLOOD Specimen Type: BLOOD No comment entered. Ordering Provider: TONY SIMMONS Report Released Date/Time: Aug 02, 2024 12:33 PM Reporting Lab: [place] [address] [facility] [place] [address] Performing Lab: [address] [address] WBC 7.4 10*3/uL 3.6-11.2 RBC 2.81 10*6/uL [...] 0.00-0. 20 Aug 02, 2024 11:53 AM [facility] PROTEIN ELECTROPHORESIS BLOOD SERUM Specimen Type: SERUM Comment: Reference Range: None Detected NOTE: THIS RESULT IS FLAGGED ABNORMAL Evaluation reveals a restricted band (M-spike) migrating in the gamma globulin region. If not already requested, Immunofixation should be considered. Test Performed by [facility], [employer] [facility], [address] [place], [place] Tristin Iyer M.D., Ph.D., Director of Laboratories , CLIA [id number] PREVIOUS SUGAR: IgG [place] Ordering Provider: TONY SIMMONS Report Released Date/Time: Jul 13, 2024 01:49 PM Reporting Lab: [address] [address] Performing Lab: [facility] [address] [facility] ALPHA-1 GLOBULIN(SO-PB-STL) 0.4 g/dL H 0.2 -0.3 [...] g/dL H Aug 02, 2024 11:53 AM [facility] IGA (STL) PLASMA Specimen Type: PLASM A Comment: No hemolysis noted. Ordering Provider: TONY SIMMONS Report Released Date/Time: Jul 13, 2024 01:49 PM Reporting Lab: [address] [address] Performing Lab: [address] [address] IGA (STL) 113 mg/dL 63-484 Aug 02, 2024 11:53 AM [facility] IGG (STL) PLASMA Specimen Type: PLASM A Comment: No hemolysis noted. Ordering Provider: TONY SIMMONS Report Released Date/Time: Jul 13, 2024 01:49 PM Reporting Lab: [facility] [address] [facility] [place] [address] Performing Lab: [facility] [address] [facility] [place] [address] IGG (STL) 1898 mg/dL H 540-1822 Aug 02, 2024 11:53 AM [facility] TSH W/ REFLEX FT4 (STL) PLASMA Specimen Type: PLASMA No comment entered. Ordering Provider: TONY SIMMONS Report Released Date/Time: Jul 13, 2024 01:49 PM Reporting Lab: [address] [address] Performing Lab: [address] [address] TSH 2.182 u[IU]/mL 0.47-5 Aug 02, 2024 11:53 AM [facility] IGM (STL) PLASMA Specimen Type: PLASM A Comment: No hemolysis noted. Ordering Provider: TONY SIMMONS Report Released Date/Time: Jul 13, 2024 01:49 PM Reporting Lab: [place] [address] [facility] [place] [address] Performing Lab: [address] [address] IGM (STL) 104 mg/dL 22-240 Aug 02, 2024 11:53 AM [facility] KAPPA/LAMBDA FREE LC PANEL (STL-PB) SERUM Spe cimen Type: SERUM No comment entered. Ordering Provider: TONY SIMMONS Report Released Date/Time: Jul 13, 2024 01:49 PM Reporting Lab: [address] [address] Performing Lab: [address] [address] KAPPA FREE LC (STL) 102.7 mg/L H 2.4-20.7 LAMBDA FREE LC (STL) 32.2 mg/L H 4.2-27.7 KAPPA/LAMBDA RATIO (STL) 3.19 H 0.22-1. 74 Aug 02, 2024 11:53 AM [facility] COMPREHENSIVE METABOLIC PANEL PLASMA Specimen Type: PLASMA Comment: No hemolysis noted. Ordering Provider: TONY SIMMONS Report Released Date/Time: Jul 13, 2024 01:49 PM Reporting Lab: [address] [address] Performing Lab: [address] [address] CREATININE 0.82 mg/dL 0.7-1.3 UREA NITROGEN 12.2 [...] 96.3 >60 Aug 02, 2024 11:53 AM [facility] CBC BLOOD Specimen Type: BLOOD Comment: No Clots in specimen Ordering Provider: TONY SIMMNOS Report Released Date/Time: Jul 13, 2024 01:49 PM Reporting Lab: [address] [address] Performing Lab: [address] [address] WBC 2.2 10*3/uL L 3.6-11.2 RBC 3.44 [...] L 2.10-8.00 Aug 01, 2024 10:10 AM [facility] GLUCOSE,BLOOD-poct (STL) BLOOD Specimen Type: BLOOD Comment: Test Performed by: [id number] Meter #: [id number] Ordering Provider: SUKHJINDER CHAHAL Report Released Date/Time: Aug 01, 2024 10:17 AM Reporting Lab: [address] [address] Performing Lab: [address] [address] GLUCOSE,BLOOD-poct (STL) 101 mg/dL H 72-99 Jul 27, 2024 01:54 PM [facility] TROPONIN I PLASMA Specimen Type: PLASM A Comment: No hemolysis noted. Ordering Provider: ELIZABETH COATES Report Released Date/Time: Jul 27, 2024 03:39 PM Reporting Lab: [address] [address] Performing Lab: [address] [address] TROPONIN I 0.011 ng/mL 0-0.033 Jul 27, 2024 01:54 PM [facility] BRAIN NATRIURETIC PEPTIDE PLASMA Specimen Type : PLASMA No comment entered. Ordering Provider: ELIZABETH COATES Report Released Date/Time: Jul 27, 2024 03:39 PM Reporting Lab: [address] [address] Performing Lab: [address] [address] BRAIN NATRIURETIC PEPTIDE 257.2 pg/mL H 0- 100 Jul 27, 2024 01:54 PM [facility] COMPREHENSIVE METABOLIC PANEL PLASMA Specimen Type: PLASMA Comment: No hemolysis noted. Ordering Provider: ELIZABETH COATES Report Released Date/Time: Jul 27, 2024 03:39 PM Reporting Lab: [address] [address] Performing Lab: [address] [address] CREATININE 0.70 mg/dL 0.7-1.3 UREA NITROGEN 7.4 [...] 101.0 >60 Jul 27, 2024 01:54 PM [facility] CBC BLOOD Specimen Type: BLOOD No comment entered. Ordering Provider: ELIZABETH COATES Report Released Date/Time: Jul 27, 2024 03:39 PM Reporting Lab: [address] [address] Performing Lab: [facility] [address] [facility] [place] [address] WBC 3.2 10*3/uL L 3.6-11.2 RBC 3.12 [...] 10*3/uL 2.10-8.00 Jul 21, 2024 02:00 PM [facility] B12 SERUM Specimen Type: SERUM No comment entered. Ordering Provider: JORJE DENSON Report Released Date/Time: Jul 21, 2024 12:54 PM Reporting Lab: [address] [address] Performing Lab: [address] [address] B12 1584 pg/mL H 213-816 Jul 21, 2024 02:00 PM [facility] FOLATE (STL-MA) SERUM Specimen Type: SERUM No comment entered. Ordering Provider: JORJE DENSON Report Released Date/Time: Jul 21, 2024 12:54 PM Reporting Lab: [address] [address] Performing Lab: [address] [address] FOLATE (STL-MA) 9.1 ng/mL 7-20 Jul 21, 2024 02:00 PM [facility] IRON/TIBC PROFILE SERUM Specimen Type: SERUM No comment entered. Ordering Provider: JORJE DENSON Report Released Date/Time: Jul 21, 2024 12:54 PM Reporting Lab: [address] [address] Performing Lab: [address] [address] TIBC 243 ug/dL L 250-450 TRANSFERRIN 194 mg/dL 163-344 IRON SATURATION 20 20-50 IRON 49 ug/dL L 65-175 Jul 21, 2024 02:00 PM [facility] CBC BLOOD Specimen Type: BLOOD Comment: Manual differential performed 07/20/2024 No clots Ordering Provider: JORJE DENSON Report Released Date/Time: Jul 21, 2024 12:54 PM Reporting Lab: [address] [address] Performing Lab: [address] [address] WBC 5.6 10*3/uL 3.6-11.2 RBC 2.87 10*6/uL [...] H 1.0-7.0 Jul 20, 2024 08:55 PM [facility] PT/INR NEW (STL-MA) PLASMA Specimen Type: PLAS MA No comment entered. Ordering Provider: AURA ZACARIAS Report Released Date/Time: Jul 18, 2024 01:30 PM Reporting Lab: [address] [address] Performing Lab: [address] [address] PROTIME 12.8 s H 9.4-12.5 INR VALUE 1.1 {INR} Jul 20, 2024 08:55 PM [facility] BASIC METABOLIC PANEL PLASMA Specimen Type: PL ASMA Comment: No hemolysis noted. Ordering Provider: AURA ZACARIAS Report Released Date/Time: Jul 18, 2024 01:30 PM Reporting Lab: [address] [address] Performing Lab: [address] [address] CREATININE 0.74 mg/dL 0.7-1.3 UREA NITROGEN 15.1 mg/dL 9.0-25.0 GLUCOSE 121 mg/dL H 72-99 SODIUM 130 meq/L L 136-145 POTASSIUM 3.7 meq/L 3.5-5 CHLORIDE 100 meq/L 98-107 CARBON DIOXIDE 20 meq/L L 22-31 CALCIUM 8.5 mg/dL 8.4-10.4 EGFR (CKD-EPI 2020) 99.3 >60 Jul 20, 2024 08:55 PM [facility] CBC BLOOD Specimen Type: BLOOD No comment entered. Ordering Provider: AURA ZACARIAS Report Released Date/Time: Jul 18, 2024 01:30 PM Reporting Lab: [facility] [address] [place] [address] Performing Lab: [facility] [address] [place] [address] WBC 5.1 10*3/uL 3.6-11.2 RBC 2.90 10*6/uL [...] 10*3/uL 2.10-8.00 Jul 20, 2024 01:13 PM [facility] CBC BLOOD Specimen Type: BLOOD No comment entered. Ordering Provider: AURA ZACARIAS Report Released Date/Time: Jul 18, 2024 01:30 PM Reporting Lab: [facility] [address] [facility] [address] Performing Lab: [address] [address] WBC 5.6 10*3/uL 3.6-11.2 RBC 3.11 10*6/uL [...] 10*3/uL 2.10-8.00 Jul 19, 2024 06:42 AM [facility] PT/INR NEW (STL-MA) PLASMA Specimen Type: PLAS MA No comment entered. Ordering Provider: AURA ZACARIAS Report Released Date/Time: Jul 18, 2024 01:30 PM Reporting Lab: [address] [address] Performing Lab: [facility] [address] [place] [address] PROTIME 16.4 s H 9.4-12.5 INR VALUE 1.5 {INR} Jul 19, 2024 06:42 AM [facility] BASIC METABOLIC PANEL PLASMA Specimen Type: PL ASMA Comment: No hemolysis noted. Ordering Provider: AURA ZACARIAS Report Released Date/Time: Jul 18, 2024 01:30 PM Reporting Lab: [address] [address] Performing Lab: [address] [address] CREATININE 0.94 mg/dL 0.7-1.3 UREA NITROGEN 23.8 mg/dL 9.0-25.0 GLUCOSE 87 mg/dL 72-99 SODIUM 129 meq/L L 136-145 POTASSIUM 3.4 meq/L L 3.5-5 CHLORIDE 102 meq/L 98-107 CARBON DIOXIDE 20 meq/L L 22-31 CALCIUM 8.1 mg/dL L 8.4-10.4 EGFR (CKD-EPI 2020) 88.9 >60 Jul 19, 2024 06:42 AM [facility] CBC BLOOD Specimen Type: BLOOD No comment entered. Ordering Provider: AURA ZACARIAS Report Released Date/Time: Jul 18, 2024 01:30 PM Reporting Lab: [address] [address] Performing Lab: [address] [address] WBC 5.1 10*3/uL 3.6-11.2 RBC 2.45 10*6/uL [...] H 1.0-7.0 Jul 18, 2024 08:51 PM [facility] CBC BLOOD Specimen Type: BLOOD No comment entered. Ordering Provider: AURA ZACARIAS Report Released Date/Time: Jul 18, 2024 01:30 PM Reporting Lab: [facility] [address] [place] [address] Performing Lab: [address] [address] WBC 6.2 10*3/uL 3.6-11.2 RBC 2.44 10*6/uL [...] 10*3/uL 2.10-8.00 Jul 18, 2024 04:19 PM [facility] CBC BLOOD Specimen Type: BLOOD No comment entered. Ordering Provider: AURA ZACARIAS Report Released Date/Time: Jul 18, 2024 01:30 PM Reporting Lab: [address] [address] Performing Lab: [address] [address] WBC 6.1 10*3/uL 3.6-11.2 RBC 2.57 10*6/uL [...] 10*3/uL 2.10-8.00 Jul 18, 2024 06:32 AM [facility] LACTIC ACID (STL-PB) PLASMA Specimen Type: NEIL SMA No comment entered. Ordering Provider: CAMDEN PATTON Report Released Date/Time: Jul 17, 2024 07:38 PM Reporting Lab: [address] [address] Performing Lab: [address] [address] LACTIC ACID (STL-PB) 1.3 mmol/L 0.5-2.0 Jul 18, 2024 06:32 AM [facility] PT/INR NEW (STL-MA) PLASMA Specimen Type: PLAS MA No comment entered. Ordering Provider: CAMDEN PATTON Report Released Date/Time: Jul 17, 2024 07:38 PM Reporting Lab: [address] [address] Performing Lab: [address] [address] PROTIME 19.1 s H 9.4-12.5 INR VALUE 1.7 {INR} Jul 18, 2024 06:32 AM [facility] CBC BLOOD Specimen Type: BLOOD Comment: HGB Called to : Dr. Posadas MOD at: [id number] on: 07/18/24 by: [email or web address] Critical Verbal Readback Performed Ordering Provider: CAMDEN PATTON Report Released Date/Time: Jul 17, 2024 07:38 PM Reporting Lab: [address] [address] Performing Lab: [address] [address] WBC 7.0 10*3/uL 3.6-11.2 RBC 2.04 10*6/uL [...] 10*3/uL 2.10-8.00 Jul 18, 2024 06:32 AM [facility] VANCOMYCIN (STL) PLASMA Specimen Type: PLASM A No comment entered. Ordering Provider: CAMDEN PATTON Report Released Date/Time: Jul 17, 2024 07:38 PM Reporting Lab: [address] [address] Performing Lab: [address] [address] VANCOMYCIN (STL) 5.0 ug/mL L 10-15 Jul 18, 2024 06:32 AM [facility] MAGNESIUM PLASMA Specimen Type: PLASM A Comment: No hemolysis noted. Ordering Provider: CAMDEN PATTON Report Released Date/Time: Jul 17, 2024 07:38 PM Reporting Lab: [address] [address] Performing Lab: [address] [address] MAGNESIUM 1.5 mg/dL L 1.6-2.6 Jul 18, 2024 06:32 AM [facility] PHOSPHOROUS PLASMA Specimen Type: PLASM A Comment: No hemolysis noted. Ordering Provider: CAMDEN PATTON Report Released Date/Time: Jul 17, 2024 07:38 PM Reporting Lab: [address] [address] Performing Lab: [address] [address] PHOSPHOROUS 2.2 mg/dL L 2.3-4.7 Jul 18, 2024 06:32 AM [facility] COMPREHENSIVE METABOLIC PANEL PLASMA Specimen Type: PLASMA Comment: No hemolysis noted. Ordering Provider: CAMDEN PATTON Report Released Date/Time: Jul 17, 2024 07:38 PM Reporting Lab: [address] [address] Performing Lab: [address] [address] CREATININE 1.08 mg/dL 0.7-1.3 UREA NITROGEN 40.5 [...] 75.2 >60 Jul 18, 2024 12:05 AM [facility] HGB,HCT,PLT BLOOD Specimen Type: BLOOD No comment entered. Ordering Provider: ROSA VARGAS Report Released Date/Time: Jul 17, 2024 09:07 PM Reporting Lab: [address] [address] Performing Lab: [address] [address] HGB 7.3 g/dL L 13.1-16.8 HCT 21.0 L 38.2-48.4 PLT 64 10*3/uL L 150-400 Jul 17, 2024 07:45 PM [facility] MRSA SURVL NARES DNA NARES Specimen [...] Jul 17, 2024 07:38 PM Reporting Lab: [address] [address] Performing Lab: [address] [address] MRSA SURVL NARES DNA Negative Negative Jul 17, 2024 07:36 PM [facility] GLUCOSE,BLOOD-poct (STL) BLOOD Specimen Type: BLOOD Comment: Test Performed by: [id number] Meter #: [id number] Ordering Provider: CAMDEN PATTON Report Released Date/Time: Jul 17, 2024 07:48 PM Reporting Lab: [address] [address] Performing Lab: [address] [place] [address] GLUCOSE,BLOOD-poct (L) 98 mg/dL 72-99 Jul 17, 2024 07:35 PM [facility] BLOOD GAS PANEL ABG ([facility]) VENOUS BLOOD Specimen Type : VENOUS BLOOD Comment: normalcy status - Below absolute low-off instrument scale Test Performed by: [id number] Meter #: [id number] Ordering Provider: CAMDEN PATTON Report Released Date/Time: Jul 17, 2024 07:37 PM Reporting Lab: [address] [address] Performing Lab: [address] [address] GEM PH 7.39 7.31-7.41 GEM PCO2 31 [...] TEMP 37.0 Jul 17, 2024 07:10 PM [facility] URINALYSIS W/ CX REFLEX (STL-PB) URINE Specim en Type: URINE No comment entered. Ordering Provider: CASEY BOONE Report Released Date/Time: Jul 17, 2024 04:24 PM Reporting Lab: [place] [address] [facility] [place] [address] Performing Lab: [place] [id number] URINE COLOR Light-Yellow Yellow U.BILIRUBIN Negative mg/dL Negative U.PH 6.0 5.0-8.0 APPEARANCE Clear Clear U.NITRITE Negative mg/dL Negative URN.GLUCOSE Normal mg/dL Negative URN.PROTEIN Negative mg/dL URN.UROBILINOGEN Normal mg/dL Normal URN.BLOOD Negative mg/dL Negative-Trace URN.KETONES Trace mg/dL Negative-Trace URN.LEUK.EST. Negative mg/dL Negative-Tr april URN.SPECIFIC GRAVITY 1.029 Jul 17, 2024 06:25 PM [facility] RETICULOCYTE PANEL BLOOD Specimen Type: BLOOD No comment entered. Ordering Provider: CASEY BOONE Report Released Date/Time: Jul 17, 2024 06:13 PM Reporting Lab: [address] [address] Performing Lab: [address] [address] RETIC RATIO 7.35 H 0.50-2.30 IRF 39.7 H 2.3-13.4 RETICULOCYTE HEMOGLOBIN EQUIVALENT 35.8 pg 28.2-36.6 RETIC COUNT,ABS 0.129 10*6/uL H 0.022-0.10 1 Jul 17, 2024 06:25 PM [facility] HAPTOGLOBIN (STL) PLASMA Specimen Type: PLASM A No comment entered. Ordering Provider: CASEY BOONE Report Released Date/Time: Jul 17, 2024 06:13 PM Reporting Lab: [address] [address] Performing Lab: [address] [address] HAPTOGLOBIN (STL) 93 mg/dL 44-215 Jul 17, 2024 06:25 PM [facility] LDH PLASMA Specimen Type: PLASM A No comment entered. Ordering Provider: CASEY BOONE Report Released Date/Time: Jul 17, 2024 06:13 PM Reporting Lab: [address] [address] Performing Lab: [place] [address] [facility] [place] [address] LDH 305 U/L H 125-243 Jul 17, 2024 06:25 PM [facility] CBC BLOOD Specimen Type: BLOOD Comment: HGB Called to : Watson White at: 1934 on:[id number] by: SHARON Critical Verbal Readback Performed Ordering Provider: CAMDEN PATTON Report Released Date/Time: Jul 17, 2024 07:09 PM Reporting Lab: [place] [address] [facility] [place] [address] Performing Lab: [address] [address] WBC 27.6 10*3/uL H 3.6-11.2 RBC 1.76 [...] H 2.10-8.00 Jul 17, 2024 04:59 PM [facility] BLOOD GAS PANEL ABG (STL) VENOUS BLOOD Specimen Type : VENOUS BLOOD Comment: Test Performed by: [id number] Meter #: [id number] Ordering Provider: CASEY BOONE Report Released Date/Time: Jul 17, 2024 05:00 PM Reporting Lab: [address] [address] Performing Lab: [address] [address] GEM PH 7.39 7.31-7.41 GEM PCO2 33 [...] TEMP 37.0 Jul 17, 2024 04:25 PM [facility] MAGNESIUM PLASMA Specimen Type: PLASM A Comment: No hemolysis noted. Ordering Provider: CASEY BOONE Report Released Date/Time: Jul 17, 2024 04:24 PM Reporting Lab: [address] [address] Performing Lab: [address] [address] MAGNESIUM 1.4 mg/dL L 1.6-2.6 Jul 17, 2024 04:25 PM [facility] PT/INR NEW (STL-MA) PLASMA Specimen Type: PLAS MA No comment entered. Ordering Provider: CASEY BOONE Report Released Date/Time: Jul 17, 2024 04:24 PM Reporting Lab: [address] [address] Performing Lab: [address] [address] PROTIME 25.3 s H 9.4-12.5 INR VALUE 2.3 {INR} Jul 17, 2024 04:25 PM [facility] COVID-19 DIAGNOSTIC (FLU/RSV)(STL) NASOPHARYNX Spec imen [...] Jul 17, 2024 04:24 PM Reporting Lab: [address] [address] Performing Lab: [address] [address] INFLUENZA A Negative Negative INFLUENZA B Negative Negative COVID-19 (STL-PB) Not Detected Not Detec nate RSV (Cepheid) NEGATIVE Negative Jul 17, 2024 04:25 PM [facility] COMPREHENSIVE METABOLIC PANEL PLASMA Specimen Type: PLASMA Comment: No hemolysis noted. Ordering Provider: CASEY BOONE Report Released Date/Time: Jul 17, 2024 04:24 PM Reporting Lab: [address] [address] Performing Lab: [address] [address] CREATININE 1.25 mg/dL 0.7-1.3 UREA NITROGEN 47.0 [...] 63.1 >60 Jul 17, 2024 04:25 PM [facility] CBC BLOOD Specimen Type: BLOOD No comment entered. Ordering Provider: CASEY BOONE Report Released Date/Time: Jul 17, 2024 04:24 PM Reporting Lab: [facility] [address] [facility] [place] [address] Performing Lab: [facility] [address] [facility] [address] WBC 42.4 10*3/uL H 3.6-11.2 RBC 2.20 [...] H 2.10-8.00 Jul 13, 2024 12:39 PM [facility] PHOSPHOROUS PLASMA Specimen Type: PLAS MA Comment: No hemolysis noted. Ordering Provider: TONY SIMMONS Report Released Date/Time: Jun 07, 2024 01:01 PM Reporting Lab: [facility] [address] [facility] [place] [address] Performing Lab: [facility] [address] [place] [id number] PHOSPHOROUS 2.4 mg/dL 2.3-4.7 Jul 13, 2024 12:39 PM [facility] TSH W/ REFLEX FT4 (STL) PLASMA Specimen Type: PLASMA No comment entered. Ordering Provider: TONY SIMMONS Report Released Date/Time: Jun 07, 2024 01:01 PM Reporting Lab: [facility] [address] [facility] [place] [address] Performing Lab: [facility] [address] [facility] [place] [address] TSH 1.431 u[IU]/mL 0.47-5 Jul 13, 2024 12:39 PM [facility] MAGNESIUM PLASMA Specimen Type: PLASM A Comment: No hemolysis noted. Ordering Provider: TONY SIMMONS Report Released Date/Time: Jun 07, 2024 01:01 PM Reporting Lab: [facility] [address] [facility] [place] [address] Performing Lab: [facility] [address] [facility] [place] [address] MAGNESIUM 2.0 mg/dL 1.6-2.6 Jul 13, 2024 12:39 PM [facility] COMPREHENSIVE METABOLIC PANEL PLASMA Specimen Type: PLASMA Comment: No hemolysis noted. Ordering Provider: TONY SIMMONS Report Released Date/Time: Jun 07, 2024 01:01 PM Reporting Lab: [address] [address] Performing Lab: [address] [address] CREATININE 0.75 mg/dL 0.7-1.3 UREA NITROGEN 21.3 [...] 98.9 >60 Jul 13, 2024 12:39 PM [facility] CBC BLOOD Specimen Type: BLOOD Comment: no clot Ordering Provider: TONY SIMMONS Report Released Date/Time: Jun 07, 2024 01:01 PM Reporting Lab: [address] [address] Performing Lab: [address] [address] WBC 3.0 10*3/uL L 3.6-11.2 RBC 3.83 [...] 10*3/uL 2.10-8.00 Jul 13, 2024 12:38 PM [facility] ALPHA-FETOPROTEIN(STL-PB) SERUM Specimen Type : SERUM No comment entered. Ordering Provider: CRYSTAL MASSEY Report Released Date/Time: Jul 04, 2024 03:26 PM Reporting Lab: [address] [address] Performing Lab: [address] [address] ALPHA-FETOPROTEIN(STL-PB) 16.86 ng/mL H 1- 8.78 Jul 13, 2024 12:37 PM [facility] CARBOHYDRATE Ag SERUM Specimen Type: SERUM Comment: REFERENCE RANGE: <34 U/mL This test was performed using the Siemens chemiluminescent method. Values obtained from different assay methods cannot be used inter- changeably. CA 19-9 levels, regardless of value, should not be interpreted as absolute evidence of the presence or absence of disease. Test Performed by [facility], [employer] [facility], [address] [place] [address] Tristin Ieyr M.D., Ph.D., Director of Laboratories , [place] [id number] Ordering Provider: CRYSTAL MASSEY Report Released Date/Time: Jul 04, 2024 03:28 PM Reporting Lab: [address] [address] Performing Lab: [facility] [address] [facility] CARBOHYDRATE Ag 61 H SEE BELOW Vital Signs: All taken on the encounter date This section contains inpatient and outpatient Vital Signs collected on the date of the Encounter. Date/Time Temperature Pulse Blood Pressure Respiratory Rate SP02 Pain Height Weight Body Mass Index Source Aug 10, 2024 08:00 PM 0 [facility] Aug 10, 2024 06:00 PM 0 [facility] Aug 10, 2024 06:00 PM 98.2 77 115/61 13 100 0 [facility] Aug 10, 2024 04:54 PM 74 129/74 [facility] Aug 10, 2024 12:19 PM 97.8 80 125/78 18 7 [facility] Social History: Smoking Status (Most current) and Tobacco Use (All prior to encounter date) This section includes the most current, and the historical, smoking and tobacco- related health factors from the DC facility where the Encounter took place. Current Smoking Status This section includes the most current smoking, or tobacco-related health factor, from the DC facility where the Encounter took place. Date/Time Current Smoking Status Comment Kaz jarrett Jul 17, 2024 04:02 PM ORYX ADMIT TOBACCO SCREEN NO [facility] Tobacco Use History This section includes a history of the smoking, or tobacco-related health factors, that were collected on or before the date of the Encounter. The data comes from the DC facility where the Encounter took place. Date/Time Smoking Status/Tobacco Use Comment F acility Jan 20, 2023 03:49 PM VA-TOBACCO FORMER USER [facility] Jan 20, 2023 03:49 PM VA-TOBACCO QUIT 15 YRS OR MORE [facility] Feb 06, 2021 04:28 PM VA-TOBACCO FORMER USER [facility] Feb 06, 2021 04:28 PM VA-TOBACCO QUIT 15 YRS OR MORE [facility] Radiology Reports: +/- 30 days of [...] the Encounter. The data comes from all DC treatment facilities. Date/Time Radiology Report Provider Source Aug 23, 2024 12:12 PM US BLOOD FLOW ABD/RENAL DOPPLER (COMPLETE): ABRAHAM HAWK [id number] -1955 M Exm Date: AUG 23, 2024@12:12 Req Phys: GILSON OG Jasvir Giraldo Loc: [facility]-GEN MED INPT VISIT (Req'g L Img Loc: [facility]ULTRASOUND [facility] Service: Unknown [facility], [facility] [address] [place] [address] (Case [id number] COMPLETE) US BLOOD FLOW ABD/RENAL DOPPLER ((US Detailed) CPT:28267 Reason for Study: dopplers Clinical History: Report Status: Verified Date Reported: AUG 23, 2024 Date Verified: AUG 23, 2024 Drug Enforcement Administration Agent E-Sig:/ES/PETROS MCCORD Report: Case [id number], [id number]. US ABDOMEN LTD, SINGLE ORG OR QUADRANT, [...] vasculature. Primary Interpreting Staff: PETROS MCCORD MD (Drug Enforcement Administration Agent) /PETROS SRIVASTAVA [facility] Aug 23, 2024 12:12 PM US ABDOMEN LTD, SINGLE ORG OR QUADRANT: ABRAHAM HAWK [id number] -1955 M Exm Date: AUG 23, 2024@12:12 Req Phys: LENKAGILSON Jasvir Pat Loc: [facility]GEN MED INPT VISIT (Req'g L Img Loc: [facility]ULTR[facility]OUND [facility] Service: Unknown [facility], [facility] [address] [place] [address] (Case [id number] COMPLETE) US ABDOMEN LTD, SINGLE ORG OR CARLITOS(US Detailed) CPT:11040 Reason for Study: Possible SBP, RUQUS with dopplers, please comment on ascites? Clinical History: Report Status: Verified Date Reported: AUG 23, 2024 Date Verified: AUG 23, 2024 Drug Enforcement Administration Agent E-Sig:/ES/PETROS MCCORD Report: Case [id number], [id number]. US ABDOMEN LTD, SINGLE ORG OR QUADRANT, [...] vasculature. Primary Interpreting Staff: PETROS MCCORD MD (Drug Enforcement Administration Agent) /PETROS SRIVASTAVA [facility] Aug 10, 2024 02:[address] ABD PEL W/CONT & 3D: ABRAHAM HAWK [id number] -1955 M Exm Date: AUG 10, 2024@14:33 Req Phys: YASIR SANZ MD Pat Loc: [facility]-EMERGENCY DEPT 2ND SHIFT (R Img Loc: [facility]-CT IMAGING [facility] Service: Unknown [facility] [address] [place] [address] (Case [id number] COMPLETE) CT ABDOMEN AND PELVIS W/CONTRAST (CT Detailed) CPT:20952 Contrast Media : Non-ionic Iodinated Reason for Study: Abdominal pain, vomiting Clinical History: Responsible Attending: Yvon Attending Contact Number: [phone] Resident Contact Number: Abdominal pain, vomiting Allergies listed in CPRS chart: Patient has answered NKA Creatinine:CREATININE 0.82 mg/dL 08/10/2024 11:30 /eGFR: STL EGFR (within one year). CREATININE 0.82 mg/dL (08/10/24 11:30) Wt: 152.1 lb [68.99 kg] (08/10/2024 11:31) History of: Renal failure, chronic or acute renal disease: NO Report Status: Verified Date Reported: AUG 10, 2024 Date Verified: AUG 10, 2024 Drug Enforcement Administration Agent E-Sig:/ES/PETROS MCCORD Report: Case [id number]. CT ABDOMEN AND PELVIS W/CONTRAST. Gastrointestinal contrast: [...] findings. Primary Interpreting Staff: PETROS MCCORD MD (Drug Enforcement Administration Agent) Primary Interpreting Resident: KENNETH ALBRIGHT, Security Representative /PETROS REESE [facility] Aug 01, 2024 10:20 AM PET/CT TUMOR IMAGING (SKULL TO MID-THIGH)-P: ABRAHAM HAWK [id number] -1955 M Exm Date: AUG 01, 2024@10:20 Req Phys: TONY SIMMONS Loc: [facility]-ONCOLOGY IRIS (Req'g Loc) Img Loc: [facility]-PET-CT Service: [address] [address] (Case [id number] COMPLETE) PET/CT TUMOR SKULL BASE TO MID-T(NM Detailed) CPT:37583 CPT Modifiers : PS PET TUMOR SUBSQ TX STRATEGY Reason for Study: Nasopharyngeal cancer (Case [id number] COMPLETE) F-18 FLUORODEOXYGLUCOSE (FDG),PER(NM Detailed) CPT:A9552 Clinical History: Report Status: Verified Date Reported: AUG 01, 2024 Date Verified: AUG 01, 2024 Drug Enforcement Administration Agent E-Sig:/ES/NATASHA LEIJA Report: PATIENT NAME: ABRAHAM HAWK. CASE #: [id number], [id number]. PROCEDURE: PET/CT study Indication: Nasopharyngeal cancer HISTORY: [...] lytic osseous lesion is noted within the ikmox-hc-ldwb. Impression: 1. The previous sites of FDG [...] NEEDED Primary Interpreting Staff: NATASHA LEIJA MD (Drug Enforcement Administration Agent) /PFT NATASHA LEIJA [facility] Jul 27, 2024 03:41 PM CHEST PORTABLE: ABRAHAM HAWK [id number] -1955 M Exm Date: JUL 27, 2024@15:41 Req Phys: GENDI,ELIZABETH Pat Loc: [facility]-EMERGENCY DEPT 2ND SHIFT (R Img Loc: [facility]-MAIN RADIOLOGY SUITE Service: Unknown [facility], [facility] [address] [place] [address] (Case [id number] COMPLETE) CHEST PORTABLE (RAD Detailed) CPT:91100 Proc Modifiers : Portable Reason for Study: sob Clinical History: Report Status: Verified Date Reported: JUL 27, 2024 Date Verified: JUL 27, 2024 Drug Enforcement Administration Agent E-Sig:/ES/Sol Abraham MD Report: CASE [id number]. AP portable view chest. COMPARISON: Chest x-ray [...] dictated by Krystian Sultana D.O. (radiology administrator) ISol, have reviewed the images and report and concur with these findings. Primary Interpreting Staff: Sol Abraham MD, Radiologist (Drug Enforcement Administration Agent) Primary Interpreting Resident: Krystian Sultana D.O., Resident Physician /SOL DHALIWAL [facility] Jul 17, 2024 06:[address] ABD PEL W/CONT & 3D: CARINEABRAHAM ROBERTO [id number] -1955 M Exm Date: JUL 17, 2024@18:18 Req Phys: CASEY BOONE [facility] Loc: 4-C SICU-[facility]/07-17-2024@19:47 Img Loc: [facility]-CT IMAGING [facility] Service: Unknown [facility], [address] [address] (Case [id number] COMPLETE) CT ABDOMEN AND PELVIS W/CONTRAST (CT Detailed) CPT:45782 Contrast Media : Non-ionic Iodinated Reason for Study: septic shock, abd pain Clinical History: Responsible Attending: Nils Attending Contact Number: [phone] Resident Contact Number: Septic shock, Patient with [...] 17, 2024 Date Verified: JUL 17, 2024 Drug Enforcement Administration Agent E-Sig: Report: CT THORAX W/CONT (PE) [PRINTSET], CT ABDOMEN AND PELVIS W/CONTRAST [PRINTSET] Comparison: 03/17/2022, 04/23/2024 Clinical History: RO PE The study was protocoled and supervised at the local DC facility. Chest 12 series and 1585 images were subsequently received by the [place] National Teleradiology Program (NTP) for interpretation. Abdomen and pelvis 9 series and 1365 images were subsequently received by the [place] National Teleradiology Program (NTP) for interpretation. Total [...] from 09/12/2023. READING PHYSICIAN: Guilherme Talbert M.D. -[phone] 07/17/2024 17:44 [facility] Program [phone] (For Medical Practitioner Use Only) Attention Patients / Veterans: If you have questions or concerns about these test results, please contact your ordering provider or primary care team. Primary Interpreting Staff: RADIOLOGY,OUTSIDE SERVICE, Staff Physician / RADIOLOGY,OUTSIDE SERVICE [facility] Jul 17, 2024 06:[address] PE CHEST W/3D: CARINEABRAHAM BELLR [id number] -1955 M Exm Date: JUL 17, 2024@18:17 Req Phys: CASEY BOONE Loc: 4-C [facility]/07-17-2024@19:47 Img Loc: [facility]-CT IMAGING [facility] Service: [facility], [address] [address] (Case [id number] COMPLETE) CT THORAX W/CONT (PE) (CT Detailed) CPT:89386 Contrast Media : unspecified contrast media Reason for Study: RO PE Clinical History: Responsible Attending: Nils Attending Contact Number: [phone] Resident Contact Number: Patient with HCC and [...] 17, 2024 Date Verified: JUL 17, 2024 Drug Enforcement Administration Agent E-Sig: Report: CT THORAX W/CONT (PE) [PRINTSET], CT ABDOMEN AND PELVIS W/CONTRAST [PRINTSET] Comparison: 03/17/2022, 04/23/2024 Clinical History: RO PE The study was protocoled and supervised at the local DC facility. Chest 12 series and 1585 images were subsequently received by the [place] National Teleradiology Program (NTP) for interpretation. Abdomen and pelvis 9 series and 1365 images were subsequently received by the [place] National Teleradiology Program (NTP) for interpretation. Total [...] from 09/12/2023. READING PHYSICIAN: Guilherme Talbert M.D. -[phone] 07/17/2024 17:44 [facility] National Teleradiology Program [phone] (For Medical Practitioner Use Only) Attention Patients / Veterans: If you have questions or concerns about these test results, please contact your ordering provider or primary care team. Primary Interpreting Staff: RADIOLOGY,OUTSIDE SERVICE, Staff Physician / RADIOLOGY,OUTSIDE SERVICE [facility] Pathology Reports: +/- 30 days of [...] the Encounter. The data comes from all DC treatment facilities. Date/Time Pathology Report Provider Source [...] FOR DYSPLASIA OR MALIGNANCY - SEE JONEL /eze TEMPLETON Pathologist Signed Aug 16, 2024@09:43 Performing Laboratory: Surgical Pathology Report Performed By: [address]# [id number] [address] [place] [phone] $FTR - - - - - - - - - - - - - - - - - - - - - - - - - - - - - - - - - - - - - - - - (End of report) CRISTIANA TEMPLETON MD Date Aug 16, 2024 - - - - - - - - - - - - - - - - - - - - - - - - - - - - - - - - - - - - - - - - ABRAHAM HAWK STANDARD FORM 515 ID:[id number] SEX:M :1955 AGE: 68 LOC:APFEE PCP: Deirdre Wild /eze TEMPLETON Pathologist Signed: 08/16/2024 09:43 CRISTIANA TEMPLETON [facility] Aug 11, 2024 06:00 AM LR MICROBIOLOGY RE PORT: Accession [UID]: [id number] [[id number]] Received: Aug 11, 2024@06:19 Collection sample: Mario Alberto D BLD. BOTTLE Collection date: Aug 11, 2024 06:00 Site/Specimen: BLOOD Provider: GILSON OG Test(s) ordered: BLOOD CULT (SET 1)............ completed: Aug 17, 2024 10:06 * BACTERIOLOGY FINAL REPORT => Aug 17, 2024 10:22 TECH CODE: [id number] Bacteriology Remark(s): 2. KAA Culture shows NO GROWTH IN 6 DAYS =--=--=--=--=--=--=--=--=-- =--=--=--=--=--=--=--=--=-- =--=--=--=--=--=--=--=-- Performing Laboratory: Bacteriology Report Performed By: [facility] [address] [place] [address]# [id number] [address] [phone] JULISSA BROWN [facility] Jul 17, 2024 05:10 PM LR MICROBIOLOGY RE PORT: Accession [UID]: [id number] [[id number]] Received: Jul 17, 2024@17:30 Collection sample: Mario Alberto Jones BLD. BOTTLE (SET 2)Collection date: Jul 17, 2024 17:10 Site/Specimen: BLOOD Provider: CASEY BOONE Test(s) ordered: BLOOD CULT (SET 2)............ completed: Jul 23, 2024 14:26 * BACTERIOLOGY FINAL REPORT => Jul 23, 2024 14:28 TECH CODE: [id number] Bacteriology Remark(s): CULTURE IS NEGATIVE TO DATE, ALL POSITIVES ARE ROUTINELY CALLED. KI Culture shows NO GROWTH IN 6 DAYS. 07/23/24 KI =--=--=--=--=--=--=--=--=-- =--=--=--=--=--=--=--=--=-- =--=--=--=--=--=--=--=-- Performing Laboratory: Bacteriology Report [address]formed By: [address] [id number] [place] [phone] [facility] Jul 17, 2024 05:10 PM LR MICROBIOLOGY RE PORT: Accession [UID]: [id number] [[id number]] Received: Jul 17, 2024@17:30 Collection sample: B D BLD. BOTTLE Collection date: Jul 17, 2024 17:10 Site/Specimen: BLOOD Provider: CASEY BOONE Test(s) ordered: BLOOD CULT (SET 1)............ completed: Jul 23, 2024 14:26 * BACTERIOLOGY FINAL REPORT => Jul 23, 2024 14:28 TECH CODE: [id number] Bacteriology Remark(s): CULTURE IS NEGATIVE TO DATE, ALL POSITIVES ARE ROUTINELY CALLED. [facility] Culture shows NO GROWTH IN 6 DAYS. 07/23/24 KI =--=--=--=--=--=--=--=--=-- =--=--=--=--=--=--=--=--=-- =--=--=--=--=--=--=--=-- Performing Laboratory: Bacteriology Report Performed By: [address] [id number] [place] [phone] [facility] Encounter Notes: All associated encounter notes This section contains the clinical notes associated to the Encounter. 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 EGD at the time showed moderate varcies, oozing PHG. patient was discharged on 07/22/24. Today he returns with diarrhe and reported melena for 3 days. His Hgb in the ED is 8.8 down from 11 1 week ago. He is HD stable and will be admitted to medicine for further management. Patient reports some black emesis as well but has been taking a cannabis supplement that is black in color. In addition, patient has had nosebleeds which may have contributed to the melena. IMP: #melena #Esophageal varices #PHG recent EGD without clear active bleeding culprit likely oozing from PHG restarted on propranolol at discharge however seems to continue to bleed Hgb 8.8, stable given satibility, 3 day course and small drop in Hgb, this is likely PHG ooze but will need EGD to rule out variceal bleed #cirrhosis #HCC REC: -IV pantoprazole 40mg BID -ceftriaxone 1g daily for SBP ppx -Octreotide gtt -if ascits is present, please obatin diagnostic paracentesis -obtain blood cultures and chest Xray as part of infectious workup in cirrhosis with possible decompensating event -please make patient NPO at midnight for possible EGD in the morning -type and screen patient -please ensure 2 large bore IVs -serial CBC, transfuse to maintain Hgb>7, plts>50 and INR<2 -monitor stools for signs of GI bleeding including hematochezia and melena -if patient has recurrent large volume bleed, please obtain CTA JOANN -please hold all antiplts and anticoagulation -if patient develops hemodynamic instability please call GI fellow food operations manager Full consult note to follow in the morning /eze Miles MD GASTROENTEROLOGY FELLOW Signed: 08/10/2024 17:34 /loly/ VRIGINIA DAVIS Gastroenterology Cosigned: 08/11/2024 10:12 08/11/2024 ADDENDUM STATUS: COMPLETED I have seen and discussed this patient's case with the GI fellow including review of pertinent history, medications, labs and XRs. I agree with the assessment and plan for management. He has not had a BM in 2 days so suspect that this is subacute but in light of known history of varices will treat accordingly. Patient understands the plan/risks and benefits. In the case of proposed procedures, these have been reviewed with the patient including indications, risks, benefits and alternatives in layperson terms. Thanks for the opportunity of seeing this patient. /loly/ VIRGINIA DAVIS Gastroenterology Signed: 08/11/2024 10:14 SHANE MEDEROS [facility] Aug 10, 2024 03:42 PM NURSING NOTE: LOCAL TITLE: JEY PERSONAL EFFECTS STL STANDARD TITLE: NURSING NOTE DATE OF NOTE: AUG 10, 2024@15:42 ENTRY DATE: AUG 10, 2024@15:42:40 AUTHOR: SOSA BEDOYAIGNER: URGENCY: STATUS: COMPLETED PERSONAL EFFECTS Hazardous Check: Advised of prohibited hazardous items Medication Check: Denies medication on person Prosthetic Check: None Personal Items: Patient/Family advised that [facility] not responsible for loss of any personal effects or valuables. Patient Valuables Observed: coat, shirt, pants, shoes, coat, glasses, cell phone /loly/ SOSA BEDOYA PATIENT ACCESS COORDINATOR REGISTERED NURSE Signed: 08/10/2024 15:44 SOSA BEDOYA [facility] Aug 10, 2024 03:20 PM RADIOLOGY PREPROCE DURE NOTE: LOCAL TITLE: RADIOLOGY CONTRAST ADMINISTRATION STANDARD TITLE: RADIOLOGY PREPROCEDURE NOTE DATE OF NOTE: AUG 10, 2024@15:20 ENTRY DATE: AUG 10, 2024@15:20:53 AUTHOR: MARIBEL PARKERIGNER: URGENCY: STATUS: COMPLETED CT and General Radiology Contrast Questionnaire PATIENT NAME: ABRAHAM HAWK SSN: [id number] DATE: Jul EXAM: CT ABD/PEL W/ Referring Physician: YVON TO BE COMPLETED PRIOR TO CONTRAST ADMINISTRATION: 1. Has the patient been instructed about the procedure? Yes 2. Is there a history of food or drug allergies? No 3. Is there history of complication with IV contrast? No 4. Is EFGR less than 30? No eGFR: STL EGFR (within one year). CREATININE 0.82 mg/dL (08/10/24 11:30) CREATININE 0.82 mg/dL 08/10/2024 11:30 EGFR (CKD-EPI 2020) 96.3 08/10/2024 11:30 5. Is EFGR result for inpatient within 24 hrs? Yes 6. Is EFGR result for outpatient with history of renal insufficiency within 7 days or for outpatient with history of normal renal function within 30 days? NA 7. Is the patient's Medical Reconciliation list correct?Yes 8. Is the patient on metformin? No 9. Has the patient violated NPO requirements? No 10. Does the patient have a history of multiple myeloma? No 11. Does the patient have sickle cell anemia? No 12. Is the patient a breast-feeding female? NA 13. Is there a chance the patient could be ? NA 14. Does the patient have only one kidney? No 15. The patient has had no iodinated contrast in the past 24 hours? Yes 16. The exception for Diagnostic Imaging Service policy was NONE and this was discussed and Approve by Mani MCCORD for contrast administration. 17. If patient meets DIS policy criteria for high risk for contrast reaction or toxicity, Informed Consent has been obtained by: 18. The information was reviewed and meets Diagnostic Imaging Policy to administer contrast. Yes DIS Policy: 1,5,6,7,16,17,18 =Y or NA // 2,3,4,8,9,10,11,12,13,14,15 = N Name of Contrast: [id number] Lot#: [id number] Dosage: 20G RT AC Injection Site: /loly/ MARIBEL PARKER CHIEF STATION ENGINEER Signed: 08/10/2024 15:22 MARIBEL PARKER [facility] Aug 10, 2024 02:01 PM PHYSICIAN EMERGENC Y DEPT NOTE: LOCAL TITLE: EMERGENCY DEPARTMENT STL STANDARD TITLE: PHYSICIAN EMERGENCY DEPT NOTE DATE OF NOTE: AUG 10, 2024@14:01 ENTRY DATE: AUG 10, 2024@14:01:26 AUTHOR: YASIR SANZ MD EXP COSIGNER: URGENCY: STATUS: COMPLETED TRIAGE CHIEF COMPLAINT: hematochezia HPI: Patient is a 68 yo M w/ h/o h/o HCV cirrhosis c/b portal hypertension and EV, metastatic SCC of head and neck on keytruda, recent GIB of unclear etiology here w/ hematochezia. Notes 7 days of black and occasionally bloody stools, had one episode of vomiting yesterday with bright red blood. Over last few days progressive lightheadedness with standing, dyspnea on exertion, and fatigue. No f/c, cp, cough, urinary symptoms. REVIEW OF SYSTEMS: See HPI for further details. All 10 systems reviewed and otherwise negative unless otherwise detailed herein. 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 CURRENT MEDICATIONS: Active Outpatient Medications (including Supplies): Active Outpatient Medications Status = 1) FUROSEMIDE 20MG TAB TAKE ONE TABLET BY MOUTH EVERY MORNING ACTIVE Indication: FOR FLUID RETENTION (EDEMA) 2) LOPERAMIDE HCL 2MG CAP TAKE TWO CAPSULES BY MOUTH ACTIVE DIRECTED AT FIRST ONSET OF DIARRHEA THEN 1 CAPSULE AFTER EACH LOOSE STOOL UNTIL DIARRHEA FREE FOR 12 HOURS Indication: FOR DIARRHEA 3) NUTRITION SUPL TWOCAL HN/VANILLA LIQUID TAKE 3 CANFULS BY ACTIVE MOUTH DIRECTED Indication: FOR NUTRITION/DIETARY SUPPLEMENTATION 4) OMEPRAZOLE 40MG EC CAP TAKE ONE CAPSULE BY MOUTH EVERY ACTIVE MORNING BEFORE A MEAL TO LOWER STOMACH ACID. TAKE 30 MINUTES PRIOR TO FOOD. 5) ONDANSETRON HCL 8MG TAB TAKE ONE TABLET BY MOUTH THREE TIMES ACTIVE A DAY NEEDED Indication: FOR NAUSEA/VOMITING 6) POTASSIUM CL 20MEQ SA TAB (DISPERSIBLE) TAKE ONE-HALF TABLET ACTIVE BY MOUTH ONCE A DAY TAKE WITH FOOD Indication: FOR POTASSIUM SUPPLEMENTATION 7) PROPRANOLOL HCL 10MG TAB TAKE ONE-HALF TABLET BY MOUTH TWICE ACTIVE A DAY FOR VARICEAL PROPHYLAXIS Indication: FOR HIGH BLOOD PRESSURE 8) SULFAMETHOXAZOLE 800/TRIMETH 160MG TAB TAKE 1 TABLET BY ACTIVE MOUTH EVERY 24 HOURS (ONCE A DAY) TAKE WITH WATER/AVOID SUNLIGHT. Indication: FOR SBP PROPHYLAXIS 9) TABLET CUTTER USE TABLET CUTTER NEEDED ACTIVE Indication: FOR TABLET CUTTING Active Non-VA Medications Status = 1) Non-VA AMPHETAMINE/DEXTROAMPHET 30MG SA CAP 30MG BY MOUTH ACTIVE EVERY MORNING 2) Non-VA LECITHIN CAP,ORAL 1 TEASPOON BY MOUTH ONCE A DAY ACTIVE 3) Non-VA MILK THISTLE CAP/TAB 1 CAP/TAB BY MOUTH ONCE A DAY ACTIVE 4) Non-VA PAPAYA TAB,CHEWABLE 4 TABLETS BY MOUTH ONCE A DAY ACTIVE 5) Non-VA TRAMADOL HCL 50MG TAB 1 TABLET BY MOUTH TWICE DAILY ACTIVE NEEDED 6) Non-VA TURMERIC CAP/TAB 1 CAPSULE BY MOUTH ONCE A DAY ACTIVE NEEDED 15 Total Medications 1) ONDANSETRON INJ,SOLN IVP ONE-TIME 4MG/2ML 2) PANTOPRAZOLE INJ,PWDR IV ONE-TIME 40MG 3) SODIUM CHLORIDE 0.9% INJ,SOLN IV 4) PEMBROLIZUMAB (PA-F) INJ,SOLN IVPB Q3WKS . I have reviewed the patient's medication list with the patient and/or his/her care-daytime caregiver. Any medication discrepancies have been resolved. Patient will be provided with an updated list of his/her medication(s). SURGICAL HISTORY: not pertinent FAMILY HISTORY: not pertinent SOCIAL HISTORY: Social History Main Topics: Smoking status: denies Alcohol Use: denies ____ Illicit Drug Use: denies ALLERGIES: Review of patient's allergies indicates: Patient has answered NKA PHYSICAL EXAM: VITAL SIGNS: 125/78 (08/10/2024 12:19)80 (08/10/2024 12:19)100% (08/10/2024 11:31)97.8 F [36.6 C] (08/10/2024 12:19)18 (08/10/2024 12:19)The OBJECT WEIGHT LAST 3 was NOT found...Contact IRM. MAThe OBJECT was NOT found...Contact IRM.PAIN ASSESSMENTThe OBJECT was NOT found...Contact IRM. Measurement DT PAIN 08/10/2024 12:19 7 CONSTITUTIONAL: No acute distress, non-toxic appearance HENT: OP clear EYES: Sclerae clear, EOMI, PERRL NECK: Normal range of motion, supple, no stridor. CARDIOVASCULAR: Normal rate, regular rhythm. PULMONARY/CHEST: Normal work of breathing, no respiratory distress. ABDOMEN: Soft, non-distended, diffusely tender w/o rebound or guarding, no mass. BACK: No midline C/T/L tenderness, No CVA tenderness EXTREMITIES: Normal range of motion, distal pulses symmetric/intact, No edema LYMPHATIC: No appreciable LAD NEUROLOGIC: Speech fluent, alert & oriented x 3, normal motor function, normal gait, no ataxia SKIN: Warm, dry, no rash LABS: CBC with hgb 8.8 from 11 on prior, plts wnl, CMP not notably changed from prior, covid/flu negative, INR 1.2, RADIOLOGY: CT a/p: Impression: 1. Chronic liver disease with sequela [...] within right direct and indirect inguinal hernias. ED COURSE & MEDICAL DECISION MAKIN yo M w/ h/o h/o HCV cirrhosis c/b portal hypertension and EV, metastatic SCC of head and neck on keytruda, recent GIB of unclear etiology here w/ hematochezia and hematemesis. Here, HDS, well appearing, abdomen soft, labs with 2.5 gm hemaglobin drop, CT with worsening cirrhosis. Suspect GI bleed, likely upper, will start IV PPI, octreotide gtt, ceftriaxone. GI consult. Admit to medicine. Nursing notes, medications, vital signs, allergies and pertinent labs & imaging studies reviewed (see chart for details) with lab results reviewed with patient/family and radiology results reviewed with patient/family. ACTIVITY AID SERVICE/TIME: 1400 MEDICATIONS GIVEN IN ED: [ x ] YES [ ] NO DIFFERENTIAL DIAGNOSES CONSIDERED: Per MDM DECISION to ADMIT / DISCHARGE TIME: 1400 DISPOSITION CONDITION:[ x ] Improved [ ] Unchanged [ ] Deteriorated CLINICAL IMPRESSION: 1 - GI bleed 2 - 3 - /es/ YASIR SANZ MD Staff Physician Signed: 08/10/2024 17:02 YASIR SANZ MD [facility]
--- OUTSIDE RECORDS SUMMARY | 2024-10-08 17:07 | XMS_ITS | Encounter Summary ---
Author Name [facility] Address [address] [place] [address] Care Team Providers Care Hand Deicer Element Winder Name Role Phone SUKHJINDER CHAHAL Primary Care [...] SUPPL EMENT Nov 25, 2021 PLAN G [id number] [phone] ELLEN HAWK VID PATIENT AARP MED SUPP MEDIGAP PLAN G MEDIC ARE SUPPL EMENT Nov 25, 2021 PLAN G [id number] [phone] ELLEN HAWK VID PATIENT MEDICARE (WNR) MEDICARE (M) PART B Sep 25, 2021 PART B [id number] [phone] ELLEN HAWK VID PATIENT MEDICARE (WNR) MEDICARE (M) PART A Aug 25, 2021 PART A [id number] ELLEN HAWKD PATIENT Selected Encounter This section includes the information on record at [place] for the Encounter. Date/Time Encounter Type Encounter Description Reason Provider Source Jul 17, 2024 04:02 PM CRITICAL CARE FIRST HOUR EMERGENCY DEPT ICD-10-CM A41.89 Other specified sepsis CASEY BOONE Abdiel Encounter Template Text not used by [place] Assessments - Encounter Diagnoses This section includes the primary and secondary diagnoses documented for the Encounter. Date/Time Primary/Secondary Diagnosis Diagnosis Name Provider Source Jul 17, 2024 08:13 PM PRIMARY Other specified [facility] Jul 17, 2024 08:13 PM SECONDARY Drug-induced nonautoimmune hemolytic anemia [facility] Plan of Treatment: Future Appointments (+ 6 months) and Future Tests (+/- 45 days) The Plan of Treatment section includes future care activities for the [facility] [place] [facility] This section includes future appointments and future orders which are active, pending or scheduled. Future Appointments This section includes appointments that were scheduled to occur 6 months from the date of the Encounter, up to a maximum of 20 appointments. The data comes from all [place] treatment facilities. Appointment Date/Time Appointment Type Appointme nt Facility Name Jul 25, 2024 01:00 PM AMBULATORY - MEDICINE [facility] Jul 26, 2024 10:00 AM AMBULATORY - MEDICINE [facility] Jul 27, 2024 03:14 PM AMBULATORY - MEDICINE [facility] Aug 01, 2024 10:15 AM AMBULATORY - NONE [facility] Aug 02, 2024 11:30 AM AMBULATORY - MEDICINE [facility] Aug 02, 2024 11:31 AM AMBULATORY - MEDICINE [facility] Aug 10, 2024 11:00 AM AMBULATORY - MEDICINE [facility] Aug 10, 2024 11:31 AM AMBULATORY - MEDICINE [facility] Aug 10, 2024 11:59 AM AMBULATORY - MEDICINE [facility] Aug 16, 2024 10:00 AM AMBULATORY - MEDICINE [facility] Aug 17, 2024 08:30 AM AMBULATORY - MEDICINE [facility] Aug 17, 2024 09:00 AM [facility] Aug 17, 2024 09:30 AM AMBULATORY - MEDICINE [facility] Aug 23, 2024 12:00 PM AMBULATORY - NONE [facility] Aug 31, 2024 02:00 PM AMBULATORY - MEDICINE [facility] Sep 07, 2024 11:00 AM AMBULATORY - MEDICINE [facility] Sep 07, 2024 01:00 PM AMBULATORY - MEDICINE [facility] Oct 15, 2024 03:00 PM AMBULATORY - SURGERY [facility] Oct 19, 2024 02:00 PM AMBULATORY - NONE [facility] Active, Pending, and Scheduled Orders This section includes a listing of several types of active, pending, and scheduled orders, including clinic medications orders, diagnostic test orders, procedure orders and consult orders; where the start date of the order is 45 days before the date of the Encounter or 45 days after the date of theEncounter. The data comes from all [facility] facilities. Test Date/Time Test Type Test Details Facility Name Jul 17, 2024 12:00 AM Laboratory - Blood Bank Order RED BLOOD CELLS - LAB VBECS - NO SPECIMEN REQUIRED [facility] Jul 17, 2024 12:00 AM Laboratory - Blood Bank Order FRESH FROZEN PLASMA - LAB VBECS - NO SPECIMEN REQUIRED [facility] Jul 17, 2024 06:13 PM Laboratory - Blood Bank Order DIRECT ANTIGLOBULIN TEST - LAB BLOOD STAT [facility] Jul 17, 2024 06:13 PM Laboratory - Blood Bank Order TYPE & SCREEN - LAB BLOOD [facility] Jul 18, 2024 12:00 AM Laboratory - Blood Bank Order PLATELETS - LAB VBECS - NO SPECIMEN REQUIRED [facility] Aug 10, 2024 12:00 AM Laboratory - Blood Bank Order RED BLOOD CELLS - LAB VBECS - NO SPECIMEN REQUIRED JOANN [facility] Aug 10, 2024 02:00 PM Laboratory - Blood Bank Order TYPE & SCREEN - LAB BLOOD [facility] Aug 10, 2024 05:43 PM Laboratory - Chemistry Order LIPASE GREEN LI/HEP BLD/PLAS PLASMA STAT I ONCE [facility] Aug 10, 2024 05:44 PM Laboratory - Microbiology Order BLOOD CULT (SET 2) B D BLD. BOTTLE (SET 2) BLOOD JOANN I NOW [facility] Aug 11, 2024 02:00 AM Laboratory - Chemistry Order CBC BLOOD WC [facility] Aug 14, 2024 02:00 AM Laboratory - Chemistry Order CBC BLOOD WC [facility] Aug 15, 2024 02:00 AM Laboratory - Chemistry Order CBC BLOOD WC [facility] Aug 16, 2024 12:00 AM Laboratory - Chemistry Order CBC BLOOD SP [facility] Aug 16, 2024 08:00 PM Laboratory - Chemistry Order CBC BLOOD LC [facility] Aug 17, 2024 08:00 PM Laboratory - Chemistry Order CBC BLOOD [facility] Lab Results: +/- 30 days of the encounter This section includes the Chemistry and Hematology Lab Results on record with [place] for the patient. Radiology Reports and Pathology Reports are provided separately, in subsequent sections. Lab Results This section contains the Chemistry/Hematology Results that were resulted 30 days before or 30 daysafter the date of the Encounter. Date/Time Source Result Type Result - Unit Interpretation Reference Range Specimen Type Comment Aug 15, 2024 07:20 AM [facility] CBC BLOOD Specimen Type: BLOOD Comment: No clots detected in specimen. Ordering Provider: CASH CLOUD Report Released Date/Time: Aug 12, 2024 01:47 PM Reporting Lab: [facility] [address] [facility] [address] Performing Lab: [address] [address] WBC 4.9 10*3/uL 3.6-11.2 RBC 2.93 10*6/uL [...] 10*3/uL 2.10-8.00 Aug 15, 2024 04:54 AM [facility] GLUCOSE,BLOOD-poct (STL) BLOOD Specimen Type: BLOOD Comment: Test Performed by: [id number] Meter #: [id number] Ordering Provider: DEIRDRE WILD Report Released Date/Time: Aug 15, 2024 05:21 AM Reporting Lab: [address] [address] Performing Lab: [address] [address] GLUCOSE,BLOOD-poct (STL) 112 mg/dL H 72-99 Aug 14, 2024 08:30 PM [facility] CRP PLASMA Specimen Type: PLASM A No comment entered. Ordering Provider: CASH CLOUD Report Released Date/Time: Aug 12, 2024 10:14 AM Reporting Lab: [address] [address] Performing Lab: [address] [address] CRP 0.7 mg/dL H 0-0.5 Aug 14, 2024 08:30 PM [facility] CBC BLOOD Specimen Type: BLOOD No comment entered. Ordering Provider: GILSON OG Report Released Date/Time: Aug 10, 2024 04:01 PM Reporting Lab: [address] [address] Performing Lab: [address] [address] WBC 4.6 10*3/uL 3.6-11.2 RBC 2.83 10*6/uL [...] 10*3/uL 2.10-8.00 Aug 14, 2024 07:54 PM [facility] GLUCOSE,BLOOD-poct (STL) BLOOD Specimen Type: BLOOD Comment: Test Performed by: [id number] Meter #: [id number] Ordering Provider: DEIRDRE WILD Report Released Date/Time: Aug 14, 2024 08:15 PM Reporting Lab: [address] [address] Performing Lab: [address] [address] GLUCOSE,BLOOD-poct (STL) 112 mg/dL H 72-99 Aug 14, 2024 04:10 PM [facility] GLUCOSE,BLOOD-poct (STL) BLOOD Specimen Type: BLOOD Comment: Test Performed by: [id number] Meter #: [id number] Ordering Provider: DEIRDRE WILD Report Released Date/Time: Aug 14, 2024 04:43 PM Reporting Lab: [address] [address] Performing Lab: [address] [address] GLUCOSE,BLOOD-poct (STL) 115 mg/dL H 72-99 Aug 14, 2024 02:05 PM [facility] COMPREHENSIVE METABOLIC PANEL PLASMA Specimen Type: PLASMA Comment: No hemolysis noted. Ordering Provider: GILSON OG Report Released Date/Time: Aug 14, 2024 06:56 AM Reporting Lab: [address] [address] Performing Lab: [address] [address] CREATININE 0.75 mg/dL 0.7-1.3 UREA NITROGEN 9.3 [...] 98.9 >60 Aug 14, 2024 02:05 PM [facility] CBC BLOOD Specimen Type: BLOOD Comment: No platelet clots or clumping detected. Ordering Provider: GILSON OG Report Released Date/Time: Aug 10, 2024 04:01 PM Reporting Lab: [address] [address] Performing Lab: [facility] [address] [facility] [address] WBC 4.6 10*3/uL 3.6-11.2 RBC 3.06 10*6/uL [...] 10*3/uL 2.10-8.00 Aug 14, 2024 10:12 AM [facility] GLUCOSE,BLOOD-poct (STL) BLOOD Specimen Type: BLOOD Comment: Test Performed by: [id number] Meter #: [id number] Ordering Provider: DEIRDRE WILD Report Released Date/Time: Aug 14, 2024 10:13 AM Reporting Lab: [place] [address] [place] [phone] Performing Lab: [place] [phone] GLUCOSE,BLOOD-poct (STL) 112 mg/dL H 72-99 Aug 14, 2024 09:20 AM [facility] PT/INR NEW (STL-MA) PLASMA Specimen Type: PLAS MA No comment entered. Ordering Provider: GILSON OG Report Released Date/Time: Aug 14, 2024 09:06 AM Reporting Lab: [place] [address] Performing Lab: [place] [address] PROTIME 13.6 s H 9.4-12.5 INR VALUE 1.2 {INR} Aug 14, 2024 06:51 AM [facility] CBC BLOOD Specimen Type: BLOOD No comment entered. Ordering Provider: CASH CLOUD Report Released Date/Time: Aug 12, 2024 01:47 PM Reporting Lab: [place] [phone] Performing Lab: [place] [address] WBC 3.8 10*3/uL 3.6-11.2 RBC 2.56 10*6/uL [...] 10*3/uL 2.10-8.00 Aug 14, 2024 06:03 AM [facility] GLUCOSE,BLOOD-poct (STL) BLOOD Specimen Type: BLOOD Comment: Test Performed by: [id number] Meter #: [id number] Ordering Provider: DEIRDRE WILD Report Released Date/Time: Aug 14, 2024 06:07 AM Reporting Lab: [address] [address] Performing Lab: [address] [address] GLUCOSE,BLOOD-poct (STL) 114 mg/dL H 72-99 Aug 13, 2024 09:11 PM [facility] GLUCOSE,BLOOD-poct (STL) BLOOD Specimen Type: BLOOD Comment: Test Performed by: [id number] Meter #: [id number] Ordering Provider: DEIRDRE WILD Report Released Date/Time: Aug 13, 2024 09:40 PM Reporting Lab: [address] [address] Performing Lab: [address] [address] GLUCOSE,BLOOD-poct (STL) 160 mg/dL H 72-99 Aug 13, 2024 07:10 PM [facility] COMPREHENSIVE METABOLIC PANEL PLASMA Specimen Type: PLASMA Comment: No hemolysis noted. Ordering Provider: GILSON OG Report Released Date/Time: Aug 14, 2024 07:03 AM Reporting Lab: [address] [address] Performing Lab: [address] [address] CREATININE 0.75 mg/dL 0.7-1.3 UREA NITROGEN 10.3 [...] 98.9 >60 Aug 13, 2024 07:10 PM [facility] CRP PLASMA Specimen Type: PLASM A No comment entered. Ordering Provider: CASH CLOUD Report Released Date/Time: Aug 12, 2024 10:14 AM Reporting Lab: [facility] [address] [facility] [address] Performing Lab: [address] [address] CRP 0.7 mg/dL H 0-0.5 Aug 13, 2024 07:10 PM [facility] CBC BLOOD Specimen Type: BLOOD No comment entered. Ordering Provider: GILSON OG Report Released Date/Time: Aug 10, 2024 04:01 PM Reporting Lab: [facility] [address] [facility] [address] Performing Lab: [place] [id number] [facility] [address] WBC 5.3 10*3/uL 3.6-11.2 RBC 2.67 10*6/uL [...] 10*3/uL 2.10-8.00 Aug 13, 2024 04:35 PM [facility] GLUCOSE,BLOOD-poct (STL) BLOOD Specimen Type: BLOOD Comment: Test Performed by: [id number] Meter #: [id number] Ordering Provider: DEIRDRE WILD Report Released Date/Time: Aug 13, 2024 05:18 PM Reporting Lab: [address] [address] Performing Lab: [address] [address] GLUCOSE,BLOOD-poct (STL) 113 mg/dL H 72-99 Aug 13, 2024 02:36 PM [facility] CBC BLOOD Specimen Type: BLOOD No comment entered. Ordering Provider: GILSON OG Report Released Date/Time: Aug 10, 2024 04:01 PM Reporting Lab: [address] [address] Performing Lab: [address] [address] WBC 5.8 10*3/uL 3.6-11.2 RBC 2.77 10*6/uL [...] 10*3/uL 2.10-8.00 Aug 13, 2024 11:37 AM [facility] GLUCOSE,BLOOD-poct (STL) BLOOD Specimen Type: BLOOD Comment: Test Performed by: [id number] Meter #: [id number] Ordering Provider: DEIRDRE WILD Report Released Date/Time: Aug 13, 2024 11:38 AM Reporting Lab: [address] [address] Performing Lab: [address] [address] GLUCOSE,BLOOD-poct (STL) 131 mg/dL H 72-99 Aug 13, 2024 08:06 AM [facility] CBC BLOOD Specimen Type: BLOOD Comment: no clot Ordering Provider: CASH CLOUD Report Released Date/Time: Aug 12, 2024 01:47 PM Reporting Lab: [address] [address] Performing Lab: [address] [address] WBC 3.0 10*3/uL L 3.6-11.2 RBC 2.61 [...] 10*3/uL 2.10-8.00 Aug 13, 2024 04:45 AM [facility] GLUCOSE,BLOOD-poct (STL) BLOOD Specimen Type: BLOOD Comment: Test Performed by: [id number] Meter #: [id number] Ordering Provider: DEIRDRE WILD Report Released Date/Time: Aug 13, 2024 06:18 AM Reporting Lab: [place] [id number] [facility] [address] Performing Lab: [address] [address] GLUCOSE,BLOOD-poct (STL) 139 mg/dL H 72-99 Aug 12, 2024 10:10 PM [facility] GLUCOSE,BLOOD-poct (STL) BLOOD Specimen Type: BLOOD Comment: Test Performed by: [id number] Meter #: [id number] Ordering Provider: DEIRDRE WILD Report Released Date/Time: Aug 12, 2024 10:50 PM Reporting Lab: [facility] [address] [facility] [address] Performing Lab: [address] [address] GLUCOSE,BLOOD-poct (STL) 105 mg/dL H 72-99 Aug 12, 2024 08:48 PM [facility] CBC BLOOD Specimen Type: BLOOD Comment: SEE PREVIOUS DIFFERENTIAL ON 08/12/24 @ 1807 Ordering Provider: GILSON OG Report Released Date/Time: Aug 10, 2024 04:01 PM Reporting Lab: [address] [address] Performing Lab: [address] [address] WBC 5.0 10*3/uL 3.6-11.2 RBC 2.78 10*6/uL [...] 6.5 1.0-7.0 Aug 12, 2024 08:48 PM [facility] CRP PLASMA Specimen Type: PLASM A No comment entered. Ordering Provider: CASH CLOUD Report Released Date/Time: Aug 12, 2024 10:14 AM Reporting Lab: [place] [address] Performing Lab: [place] [address] CRP 0.6 mg/dL H 0-0.5 Aug 12, 2024 04:51 PM [facility] GLUCOSE,BLOOD-poct (STL) BLOOD Specimen Type: BLOOD Comment: Test Performed by: [id number] Meter #: [id number] Ordering Provider: DEIRDRE WILD Report Released Date/Time: Aug 12, 2024 05:07 PM Reporting Lab: [place] [address] Performing Lab: [place] [address] GLUCOSE,BLOOD-poct (STL) 135 mg/dL H 72-99 Aug 12, 2024 02:33 PM [facility] CBC BLOOD Specimen Type: BLOOD No comment entered. Ordering Provider: GILSON OG Report Released Date/Time: Aug 10, 2024 04:01 PM Reporting Lab: [place] [address] Performing Lab: [place] [address] WBC 4.0 10*3/uL 3.6-11.2 RBC 2.56 10*6/uL [...] 10*3/uL 2.10-8.00 Aug 12, 2024 11:51 AM [facility] GLUCOSE,BLOOD-poct (STL) BLOOD Specimen Type: BLOOD Comment: Test Performed by: [id number] Meter #: [id number] Ordering Provider: DEIRDRE WILD Report Released Date/Time: Aug 12, 2024 12:26 PM Reporting Lab: [address] [address] Performing Lab: [address] [address] GLUCOSE,BLOOD-poct (STL) 139 mg/dL H 72-99 Aug 12, 2024 07:35 AM [facility] CBC BLOOD Specimen Type: BLOOD Comment: prev diff 08/11/24. Ordering Provider: GILSON OG Report Released Date/Time: Aug 10, 2024 04:01 PM Reporting Lab: [address] [address] Performing Lab: [address] [address] WBC 3.0 10*3/uL L 3.6-11.2 RBC 2.54 [...] 0.00-0. 20 Aug 12, 2024 05:49 AM [facility] GLUCOSE,BLOOD-poct (STL) BLOOD Specimen Type: BLOOD Comment: Test Performed by: [id number] Meter #: [id number] Ordering Provider: DEIRDRE WILD Report Released Date/Time: Aug 12, 2024 05:50 AM Reporting Lab: [address] [address] Performing Lab: [address] [address] GLUCOSE,BLOOD-poct (STL) 112 mg/dL H 72-99 Aug 12, 2024 01:45 AM [facility] CBC BLOOD Specimen Type: BLOOD Comment: SEE PREVIOUS DIFFERENTIAL ON 08/12/24 @ 0239 MTS Ordering Provider: GILSON OG Report Released Date/Time: Aug 10, 2024 04:01 PM Reporting Lab: [address] [address] Performing Lab: [address] [address] WBC 2.6 10*3/uL L 3.6-11.2 RBC 2.42 [...] 6.4 1.0-7.0 Aug 11, 2024 09:25 PM [facility] CBC BLOOD Specimen Type: BLOOD No comment entered. Ordering Provider: GILSON OG Report Released Date/Time: Aug 10, 2024 04:01 PM Reporting Lab: [facility] [address] [facility] [address] Performing Lab: [address] [address] WBC 3.6 10*3/uL 3.6-11.2 RBC 2.54 10*6/uL [...] 10*3/uL 2.10-8.00 Aug 11, 2024 09:17 PM [facility] GLUCOSE,BLOOD-poct (STL) BLOOD Specimen Type: BLOOD Comment: Test Performed by: [id number] Meter #: [id number] Ordering Provider: DEIRDRE WILD Report Released Date/Time: Aug 11, 2024 09:21 PM Reporting Lab: [address] [address] Performing Lab: [address] [address] GLUCOSE,BLOOD-poct (STL) 167 mg/dL H 72-99 Aug 11, 2024 04:42 PM [facility] CBC BLOOD Specimen Type: BLOOD No comment entered. Ordering Provider: YVONNE HARRISON Report Released Date/Time: Aug 11, 2024 04:41 PM Reporting Lab: [address] [address] Performing Lab: [address] [address] WBC 4.0 10*3/uL 3.6-11.2 RBC 2.74 10*6/uL [...] 10*3/uL 2.10-8.00 Aug 11, 2024 04:30 PM [facility] GLUCOSE,BLOOD-poct (STL) BLOOD Specimen Type: BLOOD Comment: Test Performed by: [id number] Meter #: [id number] Ordering Provider: DEIRDRE WILD Report Released Date/Time: Aug 11, 2024 06:06 PM Reporting Lab: [address] [address] Performing Lab: [address] [address] GLUCOSE,BLOOD-poct (STL) 95 mg/dL 72-99 Aug 11, 2024 11:08 AM [facility] GLUCOSE,BLOOD-poct (L) BLOOD Specimen Type: BLOOD Comment: Test Performed by: [id number] Meter #: [id number] Ordering Provider: DEIRDRE WILD Report Released Date/Time: Aug 11, 2024 11:10 AM Reporting Lab: [address] [address] Performing Lab: [address] [address] GLUCOSE,BLOOD-poct (STL) 117 mg/dL H 72-99 Aug 11, 2024 06:00 AM [facility] PT/INR NEW (STL-MA) PLASMA Specimen Type: PLAS MA No comment entered. Ordering Provider: GILSON OG Report Released Date/Time: Aug 10, 2024 06:20 PM Reporting Lab: [address] [address] Performing Lab: [address] [address] PROTIME 15.5 s H 9.4-12.5 INR VALUE 1.4 {INR} Aug 11, 2024 06:00 AM [facility] IRON/TIBC PROFILE SERUM Specimen Type: SERUM No comment entered. Ordering Provider: GILSON OG Report Released Date/Time: Aug 10, 2024 04:02 PM Reporting Lab: [address] [address] Performing Lab: [address] [address] TIBC 263 ug/dL 250-450 TRANSFERRIN 210 mg/dL 163-344 IRON SATURATION 8 L 20-50 IRON 21 ug/dL L 65-175 Aug 11, 2024 06:00 AM [facility] HEPATIC FUNTION PANEL (STL) PLASMA Specimen Ty pe: PLASMA No comment entered. Ordering Provider: GILSON OG Report Released Date/Time: Aug 10, 2024 04:02 PM Reporting Lab: [address] [address] Performing Lab: [address] [address] PROTEIN 5.4 g/dL L 6-8.6 ALBUMIN 2.6 g/dL L 3.4-5 TOTAL BILIRUBIN 0.8 mg/dL 0.2-1.2 ALKALINE PHOSPHATASE 72 U/L 40-150 AST/SGOT 28 U/L 5-34 ALT/SGPT 10 U/L 8-40 CONJ. BILIRUBIN 0.4 mg/dL 0-0.5 Aug 11, 2024 06:00 AM [facility] APTT PLASMA Specimen Type: PLASM A No comment entered. Ordering Provider: GILSON OG Report Released Date/Time: Aug 10, 2024 06:20 PM Reporting Lab: [address] [address] Performing Lab: [address] [address] APTT 25.5 s L 26.7-39.9 Aug 11, 2024 06:00 AM [facility] CBC BLOOD Specimen Type: BLOOD No comment entered. Ordering Provider: GILSON OG Report Released Date/Time: Aug 10, 2024 04:01 PM Reporting Lab: [facility] [address] [place] [address] Performing Lab: [facility] [address] [place] [address] WBC 2.4 10*3/uL L 3.6-11.2 RBC 2.42 [...] L 2.10-8.00 Aug 10, 2024 09:00 PM [facility] BASIC METABOLIC PANEL PLASMA Specimen Type: PL ASMA Comment: No hemolysis noted. Ordering Provider: GILSON OG Report Released Date/Time: Aug 10, 2024 04:01 PM Reporting Lab: [facility] [address] [facility] [address] Performing Lab: [address] [address] CREATININE 0.84 mg/dL 0.7-1.3 UREA NITROGEN 16.8 mg/dL 9.0-25.0 GLUCOSE 104 mg/dL H 72-99 SODIUM 133 meq/L L 136-145 POTASSIUM 3.5 meq/L 3.5-5 CHLORIDE 103 meq/L 98-107 CARBON DIOXIDE 23 meq/L 22-31 CALCIUM 8.4 mg/dL 8.4-10.4 EGFR (CKD-EPI 2020) 95.6 >60 Aug 10, 2024 09:00 PM [facility] CBC BLOOD Specimen Type: BLOOD No comment entered. Ordering Provider: GILSON OG Report Released Date/Time: Aug 10, 2024 04:01 PM Reporting Lab: [facility] [address] [facility] [address] Performing Lab: [facility] [address] [facility] [address] WBC 4.3 10*3/uL 3.6-11.2 RBC 2.22 10*6/uL [...] 10*3/uL 2.10-8.00 Aug 10, 2024 06:30 PM [facility] MRSA SURVL NARES DNA NARES [...] Aug 10, 2024 04:01 PM Reporting Lab: [address] [address] Performing Lab: [address] [address] MRSA SURVL NARES DNA Negative Negative Aug 10, 2024 06:02 PM [facility] GLUCOSE,BLOOD-poct (STL) BLOOD Specimen Type: BLOOD Comment: Test Performed by: [id number] Meter #: [id number] Ordering Provider: YASIR SANZ MD Report Released Date/Time: Aug 10, 2024 06:04 PM Reporting Lab: [address] [address] Performing Lab: [address] [address] GLUCOSE,BLOOD-poct (STL) 94 mg/dL 72-99 Aug 10, 2024 02:12 PM [facility] PT/INR NEW (STL-MA) PLASMA Specimen Type: PLAS MA No comment entered. Ordering Provider: YASIR SANZ MD Report Released Date/Time: Aug 10, 2024 02:00 PM Reporting Lab: [address] [phone] Performing Lab: [address] [address] PROTIME 13.8 s H 9.4-12.5 INR VALUE 1.2 {INR} Aug 10, 2024 02:12 PM [facility] APTT PLASMA Specimen Type: PLASM A No comment entered. Ordering Provider: YASIR SANZ MD Report Released Date/Time: Aug 10, 2024 02:00 PM Reporting Lab: [address] [address] Performing Lab: [address] [address] APTT 20.1 s L 26.7-39.9 Aug 10, 2024 11:30 AM [facility] TSH W/ REFLEX FT4 (STL) PLASMA Specimen Type: PLASMA No comment entered. Ordering Provider: TONY SIMMONS Report Released Date/Time: Aug 02, 2024 12:33 PM Reporting Lab: [address] [address] Performing Lab: [address] [address] TSH 3.991 u[IU]/mL 0.47-5 Aug 10, 2024 11:30 AM [facility] COMPREHENSIVE METABOLIC PANEL PLASMA Specimen Type: PLASMA Comment: No hemolysis noted. Ordering Provider: TONY SIMMONS Report Released Date/Time: Aug 02, 2024 12:33 PM Reporting Lab: [address] [address] Performing Lab: [address] [address] CREATININE 0.82 mg/dL 0.7-1.3 UREA NITROGEN 21.7 [...] 96.3 >60 Aug 10, 2024 11:30 AM [facility] CBC BLOOD Specimen Type: BLOOD No comment entered. Ordering Provider: TONY SIMMONS Report Released Date/Time: Aug 02, 2024 12:33 PM Reporting Lab: [facility] [address] [facility] [address] Performing Lab: [address] [address] WBC 7.4 10*3/uL 3.6-11.2 RBC 2.81 10*6/uL [...] 0.00-0. 20 Aug 02, 2024 11:53 AM [facility] PROTEIN ELECTROPHORESIS BLOOD SERUM Specimen Type: SERUM Comment: Reference Range: None Detected NOTE: THIS RESULT IS FLAGGED ABNORMAL Evaluation reveals a restricted band (M-spike) migrating in the gamma globulin region. If not already requested, Immunofixation should be considered. Test Performed by [facility], [employer] [facility], [address] [place], [place] Tristin Iyer M.D., Ph.D., Director of Laboratories , CLIA [id number] PREVIOUS SUGAR: IgG [place] Ordering Provider: TONY SIMMONS Report Released Date/Time: Jul 13, 2024 01:49 PM Reporting Lab: [facility] [address] [place] [address] Performing Lab: [facility] [address] [facility] ALPHA-1 GLOBULIN(SO-PB-STL) 0.4 g/dL H 0.2 -0.3 [...] g/dL H Aug 02, 2024 11:53 AM [facility] IGA (STL) PLASMA Specimen Type: PLAS MA Comment: No hemolysis noted. Ordering Provider: TONY SIMMONS Report Released Date/Time: Jul 13, 2024 01:49 PM Reporting Lab: [facility] [address] [facility] [address] Performing Lab: [address] [address] IGA (STL) 113 mg/dL 63-484 Aug 02, 2024 11:53 AM [facility] IGG (STL) PLASMA Specimen Type: PLASM A Comment: No hemolysis noted. Ordering Provider: TONY SIMMONS Report Released Date/Time: Jul 13, 2024 01:49 PM Reporting Lab: [address] [address] Performing Lab: [address] [address] IGG (STL) 1898 mg/dL H 540-1822 Aug 02, 2024 11:53 AM [facility] TSH W/ REFLEX FT4 (STL) PLASMA Specimen Type: PLASMA No comment entered. Ordering Provider: TONY SIMMONS Report Released Date/Time: Jul 13, 2024 01:49 PM Reporting Lab: [address] [address] Performing Lab: [address] [address] TSH 2.182 u[IU]/mL 0.47-5 Aug 02, 2024 11:53 AM [facility] IGM (STL) PLASMA Specimen Type: PLASM A Comment: No hemolysis noted. Ordering Provider: TONY SIMMONS Report Released Date/Time: Jul 13, 2024 01:49 PM Reporting Lab: [address] [address] Performing Lab: [address] [address] IGM (STL) 104 mg/dL 22-240 Aug 02, 2024 11:53 AM [facility] KAPPA/LAMBDA FREE LC PANEL (STL-PB) SERUM Spe cimen Type: SERUM No comment entered. Ordering Provider: TONY SIMMONS Report Released Date/Time: Jul 13, 2024 01:49 PM Reporting Lab: [address] [address] Performing Lab: [address] [address] KAPPA FREE LC (STL) 102.7 mg/L H 2.4-20.7 LAMBDA FREE LC (STL) 32.2 mg/L H 4.2-27.7 KAPPA/LAMBDA RATIO (STL) 3.19 H 0.22-1. 74 Aug 02, 2024 11:53 AM [facility] COMPREHENSIVE METABOLIC PANEL PLASMA Specimen Type: PLASMA Comment: No hemolysis noted. Ordering Provider: TONY SIMMONS Report Released Date/Time: Jul 13, 2024 01:49 PM Reporting Lab: [address] [address] Performing Lab: [address] [address] CREATININE 0.82 mg/dL 0.7-1.3 UREA NITROGEN 12.2 [...] 96.3 >60 Aug 02, 2024 11:53 AM [facility] CBC BLOOD Specimen Type: BLOOD Comment: No Clots in specimen Ordering Provider: TONY SIMMONS Report Released Date/Time: Jul 13, 2024 01:49 PM Reporting Lab: [address] [address] Performing Lab: [address] [address] WBC 2.2 10*3/uL L 3.6-11.2 RBC 3.44 [...] L 2.10-8.00 Aug 01, 2024 10:10 AM [facility] GLUCOSE,BLOOD-poct (STL) BLOOD Specimen Type: BLOOD Comment: Test Performed by: [id number] Meter #: [id number] Ordering Provider: SUKHJINDER CHAHAL Report Released Date/Time: Aug 01, 2024 10:17 AM Reporting Lab: [address] [address] Performing Lab: [address] [address] GLUCOSE,BLOOD-poct (STL) 101 mg/dL H 72-99 Jul 27, 2024 01:54 PM [facility] TROPONIN I PLASMA Specimen Type: PLASM A Comment: No hemolysis noted. Ordering Provider: ELIZABETH COATES Report Released Date/Time: Jul 27, 2024 03:39 PM Reporting Lab: [address] [address] Performing Lab: [address] [address] TROPONIN I 0.011 ng/mL 0-0.033 Jul 27, 2024 01:54 PM [facility] BRAIN NATRIURETIC PEPTIDE PLASMA Specimen Type : PLASMA No comment entered. Ordering Provider: ELIZABETH COATES Report Released Date/Time: Jul 27, 2024 03:39 PM Reporting Lab: [address] [address] Performing Lab: [address] [address] BRAIN NATRIURETIC PEPTIDE 257.2 pg/mL H 0- 100 Jul 27, 2024 01:54 PM [facility] COMPREHENSIVE METABOLIC PANEL PLASMA Specimen Type: PLASMA Comment: No hemolysis noted. Ordering Provider: ELIZABETH COATES Report Released Date/Time: Jul 27, 2024 03:39 PM Reporting Lab: [address] [address] Performing Lab: [address] [address] CREATININE 0.70 mg/dL 0.7-1.3 UREA NITROGEN 7.4 [...] 101.0 >60 Jul 27, 2024 01:54 PM [facility] CBC BLOOD Specimen Type: BLOOD No comment entered. Ordering Provider: ELIZABETH COATES Report Released Date/Time: Jul 27, 2024 03:39 PM Reporting Lab: [address] [address] Performing Lab: [address] [address] WBC 3.2 10*3/uL L 3.6-11.2 RBC 3.12 [...] 10*3/uL 2.10-8.00 Jul 21, 2024 02:00 PM [facility] B12 SERUM Specimen Type: SERUM No comment entered. Ordering Provider: JORJE DENSON Report Released Date/Time: Jul 21, 2024 12:54 PM Reporting Lab: [facility] [address] [facility] [address] Performing Lab: [facility] [address] [facility] [address] B12 1584 pg/mL H 213-816 Jul 21, 2024 02:00 PM [facility] FOLATE (STL-MA) SERUM Specimen Type: SERUM No comment entered. Ordering Provider: JORJE DENSON Report Released Date/Time: Jul 21, 2024 12:54 PM Reporting Lab: [address] [address] Performing Lab: [address] [address] FOLATE (STL-MA) 9.1 ng/mL 7-20 Jul 21, 2024 02:00 PM [facility] IRON/TIBC PROFILE SERUM Specimen Type: SERUM No comment entered. Ordering Provider: JORJE DENSON Report Released Date/Time: Jul 21, 2024 12:54 PM Reporting Lab: [address] [address] Performing Lab: [address] [address] TIBC 243 ug/dL L 250-450 TRANSFERRIN 194 mg/dL 163-344 IRON SATURATION 20 20-50 IRON 49 ug/dL L 65-175 Jul 21, 2024 02:00 PM [facility] CBC BLOOD Specimen Type: BLOOD Comment: Manual differential performed 07/20/2024 No clots Ordering Provider: JORJE DENSON Report Released Date/Time: Jul 21, 2024 12:54 PM Reporting Lab: [address] [address] Performing Lab: [address] [address] WBC 5.6 10*3/uL 3.6-11.2 RBC 2.87 10*6/uL [...] H 1.0-7.0 Jul 20, 2024 08:55 PM [facility] PT/INR NEW (STL-MA) PLASMA Specimen Type: PLAS MA No comment entered. Ordering Provider: AURA ZACARIAS Report Released Date/Time: Jul 18, 2024 01:30 PM Reporting Lab: [address] [address] Performing Lab: [address] [address] PROTIME 12.8 s H 9.4-12.5 INR VALUE 1.1 {INR} Jul 20, 2024 08:55 PM [facility] BASIC METABOLIC PANEL PLASMA Specimen Type: PL ASMA Comment: No hemolysis noted. Ordering Provider: AURA ZACARIAS Report Released Date/Time: Jul 18, 2024 01:30 PM Reporting Lab: [address] [address] Performing Lab: [address] [address] CREATININE 0.74 mg/dL 0.7-1.3 UREA NITROGEN 15.1 mg/dL 9.0-25.0 GLUCOSE 121 mg/dL H 72-99 SODIUM 130 meq/L L 136-145 POTASSIUM 3.7 meq/L 3.5-5 CHLORIDE 100 meq/L 98-107 CARBON DIOXIDE 20 meq/L L 22-31 CALCIUM 8.5 mg/dL 8.4-10.4 EGFR (CKD-EPI 2020) 99.3 >60 Jul 20, 2024 08:55 PM [facility] CBC BLOOD Specimen Type: BLOOD No comment entered. Ordering Provider: AURA ZACARIAS Report Released Date/Time: Jul 18, 2024 01:30 PM Reporting Lab: [facility] [address] [place] [address] Performing Lab: [address] [address] WBC 5.1 10*3/uL 3.6-11.2 RBC 2.90 10*6/uL [...] 10*3/uL 2.10-8.00 Jul 20, 2024 01:13 PM [facility] CBC BLOOD Specimen Type: BLOOD No comment entered. Ordering Provider: AURA ZACARIAS Report Released Date/Time: Jul 18, 2024 01:30 PM Reporting Lab: [address] [address] Performing Lab: [address] [address] WBC 5.6 10*3/uL 3.6-11.2 RBC 3.11 10*6/uL [...] 10*3/uL 2.10-8.00 Jul 19, 2024 06:42 AM [facility] PT/INR NEW (STL-MA) PLASMA Specimen Type: PLAS MA No comment entered. Ordering Provider: AURA ZACARIAS Report Released Date/Time: Jul 18, 2024 01:30 PM Reporting Lab: [address] [address] Performing Lab: [address] [address] PROTIME 16.4 s H 9.4-12.5 INR VALUE 1.5 {INR} Jul 19, 2024 06:42 AM [facility] BASIC METABOLIC PANEL PLASMA Specimen Type: PL ASMA Comment: No hemolysis noted. Ordering Provider: AURA ZACARIAS Report Released Date/Time: Jul 18, 2024 01:30 PM Reporting Lab: [address] [address] Performing Lab: [address] [address] CREATININE 0.94 mg/dL 0.7-1.3 UREA NITROGEN 23.8 mg/dL 9.0-25.0 GLUCOSE 87 mg/dL 72-99 SODIUM 129 meq/L L 136-145 POTASSIUM 3.4 meq/L L 3.5-5 CHLORIDE 102 meq/L 98-107 CARBON DIOXIDE 20 meq/L L 22-31 CALCIUM 8.1 mg/dL L 8.4-10.4 EGFR (CKD-EPI 2020) 88.9 >60 Jul 19, 2024 06:42 AM [facility] CBC BLOOD Specimen Type: BLOOD No comment entered. Ordering Provider: AURA ZACARIAS Report Released Date/Time: Jul 18, 2024 01:30 PM Reporting Lab: [address] [address] Performing Lab: [address] [address] WBC 5.1 10*3/uL 3.6-11.2 RBC 2.45 10*6/uL [...] H 1.0-7.0 Jul 18, 2024 08:51 PM [facility] CBC BLOOD Specimen Type: BLOOD No comment entered. Ordering Provider: AURA ZACARIAS Report Released Date/Time: Jul 18, 2024 01:30 PM Reporting Lab: [facility] [address] [place] [address] Performing Lab: [facility] [address] [place] [address] WBC 6.2 10*3/uL 3.6-11.2 RBC 2.44 10*6/uL [...] 10*3/uL 2.10-8.00 Jul 18, 2024 04:19 PM [facility] CBC BLOOD Specimen Type: BLOOD No comment entered. Ordering Provider: AURA ZACARIAS Report Released Date/Time: Jul 18, 2024 01:30 PM Reporting Lab: [facility] [address] [place] [address] Performing Lab: [facility] [address] [place] [address] WBC 6.1 10*3/uL 3.6-11.2 RBC 2.57 10*6/uL [...] 10*3/uL 2.10-8.00 Jul 18, 2024 06:32 AM [facility] LACTIC ACID (STL-PB) PLASMA Specimen Type: NEIL SMA No comment entered. Ordering Provider: CAMDEN PATTON Report Released Date/Time: Jul 17, 2024 07:38 PM Reporting Lab: [place] [address] [facility] [address] Performing Lab: [address] [address] LACTIC ACID (STL-PB) 1.3 mmol/L 0.5-2.0 Jul 18, 2024 06:32 AM [facility] PT/INR NEW (L-MA) PLASMA Specimen Type: PLAS MA No comment entered. Ordering Provider: CAMDEN PATTON Report Released Date/Time: Jul 17, 2024 07:38 PM Reporting Lab: [facility] [address] [facility] [address] Performing Lab: [address] [address] PROTIME 19.1 s H 9.4-12.5 INR VALUE 1.7 {INR} Jul 18, 2024 06:32 AM [facility] CBC BLOOD Specimen Type: BLOOD Comment: HGB Called to : Dr. Posadas MOD at: 0657 on: 07/18/24 by: [email or web address] Critical Verbal Readback Performed Ordering Provider: CAMDEN PATTON Report Released Date/Time: Jul 17, 2024 07:38 PM Reporting Lab: [facility] [address] [facility] [address] Performing Lab: [address] [address] WBC 7.0 10*3/uL 3.6-11.2 RBC 2.04 10*6/uL [...] 10*3/uL 2.10-8.00 Jul 18, 2024 06:32 AM [facility] VANCOMYCIN (STL) PLASMA Specimen Type: PLASM A No comment entered. Ordering Provider: CAMDEN PATTON Report Released Date/Time: Jul 17, 2024 07:38 PM Reporting Lab: [address] [address] Performing Lab: [address] [address] VANCOMYCIN (STL) 5.0 ug/mL L 10-15 Jul 18, 2024 06:32 AM [facility] MAGNESIUM PLASMA Specimen Type: PLASM A Comment: No hemolysis noted. Ordering Provider: CAMDEN PATTON Report Released Date/Time: Jul 17, 2024 07:38 PM Reporting Lab: [facility] [address] [place] [address] Performing Lab: [address] [address] MAGNESIUM 1.5 mg/dL L 1.6-2.6 Jul 18, 2024 06:32 AM [facility] PHOSPHOROUS PLASMA Specimen Type: PLASM A Comment: No hemolysis noted. Ordering Provider: CAMDEN PATTON Report Released Date/Time: Jul 17, 2024 07:38 PM Reporting Lab: [address] [address] Performing Lab: [address] [address] PHOSPHOROUS 2.2 mg/dL L 2.3-4.7 Jul 18, 2024 06:32 AM [facility] COMPREHENSIVE METABOLIC PANEL PLASMA Specimen Type: PLASMA Comment: No hemolysis noted. Ordering Provider: CAMDEN PATTON Report Released Date/Time: Jul 17, 2024 07:38 PM Reporting Lab: [address] [address] Performing Lab: [address] [address] CREATININE 1.08 mg/dL 0.7-1.3 UREA NITROGEN 40.5 [...] 75.2 >60 Jul 18, 2024 12:05 AM [facility] HGB,HCT,PLT BLOOD Specimen Type: BLOOD No comment entered. Ordering Provider: ROSA VARGAS Report Released Date/Time: Jul 17, 2024 09:07 PM Reporting Lab: [facility] [address] [place] [address] Performing Lab: [address] [address] HGB 7.3 g/dL L 13.1-16.8 HCT 21.0 L 38.2-48.4 PLT 64 10*3/uL L 150-400 Jul 17, 2024 07:45 PM [facility] MRSA SURVL NARES DNA NARES [...] Jul 17, 2024 07:38 PM Reporting Lab: [address] [address] Performing Lab: [address] [address] MRSA SURVL NARES DNA Negative Negative Jul 17, 2024 07:36 PM [facility] GLUCOSE,BLOOD-poct (STL) BLOOD Specimen Type: BLOOD Comment: Test Performed by: [id number] Meter #: [id number] Ordering Provider: CAMDEN PATTON Report Released Date/Time: Jul 17, 2024 07:48 PM Reporting Lab: [address] [address] Performing Lab: [address] [address] GLUCOSE,BLOOD-poct (STL) 98 mg/dL 72-99 Jul 17, 2024 07:35 PM [facility] BLOOD GAS PANEL ABG (STL) VENOUS BLOOD Specimen Type : VENOUS BLOOD Comment: normalcy status - Below absolute low-off instrument scale Test Performed by: [id number] Meter #: [id number] Ordering Provider: CAMDEN PATTON Report Released Date/Time: Jul 17, 2024 07:37 PM Reporting Lab: [address] [address] Performing Lab: [address] [address] GEM PH 7.39 7.31-7.41 GEM PCO2 31 [...] TEMP 37.0 Jul 17, 2024 07:10 PM [facility] URINALYSIS W/ CX REFLEX (STL-PB) URINE Specim en Type: URINE No comment entered. Ordering Provider: CASEY BOONE Report Released Date/Time: Jul 17, 2024 04:24 PM Reporting Lab: [address] [address] Performing Lab: [address] [address] URINE COLOR Light-Yellow Yellow U.BILIRUBIN Negative mg/dL Negative U.PH 6.0 5.0-8.0 APPEARANCE Clear Clear U.NITRITE Negative mg/dL Negative URN.GLUCOSE Normal mg/dL Negative URN.PROTEIN Negative mg/dL URN.UROBILINOGEN Normal mg/dL Normal URN.BLOOD Negative mg/dL Negative-Trace URN.KETONES Trace mg/dL Negative-Trace URN.LEUK.EST. Negative mg/dL Negative-Tr april URN.SPECIFIC GRAVITY 1.029 Jul 17, 2024 06:25 PM [facility] RETICULOCYTE PANEL BLOOD Specimen Type: BLOOD No comment entered. Ordering Provider: CASEY BOONE Report Released Date/Time: Jul 17, 2024 06:13 PM Reporting Lab: [address] [address] Performing Lab: [address] [address] RETIC RATIO 7.35 H 0.50-2.30 IRF 39.7 H 2.3-13.4 RETICULOCYTE HEMOGLOBIN EQUIVALENT 35.8 pg 28.2-36.6 RETIC COUNT,ABS 0.129 10*6/uL H 0.022-0.10 1 Jul 17, 2024 06:25 PM [facility] HAPTOGLOBIN (STL) PLASMA Specimen Type: PLASM A No comment entered. Ordering Provider: CASEY BOONE Report Released Date/Time: Jul 17, 2024 06:13 PM Reporting Lab: [address] [address] Performing Lab: [address] [address] HAPTOGLOBIN (STL) 93 mg/dL 44-215 Jul 17, 2024 06:25 PM [facility] LDH PLASMA Specimen Type: PLASM A No comment entered. Ordering Provider: CASEY BOONE Report Released Date/Time: Jul 17, 2024 06:13 PM Reporting Lab: [address] [address] Performing Lab: [address] [address] LDH 305 U/L H 125-243 Jul 17, 2024 06:25 PM [facility] CBC BLOOD Specimen Type: BLOOD Comment: HGB Called to : Watson White at: 1934 on:[id number] by: [facility] Critical Verbal Readback Performed Ordering Provider: CAMDEN PATTON Report Released Date/Time: Jul 17, 2024 07:09 PM Reporting Lab: [address] [address] Performing Lab: [address] [address] WBC 27.6 10*3/uL H 3.6-11.2 RBC 1.76 [...] H 2.10-8.00 Jul 17, 2024 04:59 PM [facility] BLOOD GAS PANEL ABG (L) VENOUS BLOOD Specimen Type : VENOUS BLOOD Comment: Test Performed by: [id number] Meter #: [id number] Ordering Provider: CASEY BOONE Report Released Date/Time: Jul 17, 2024 05:00 PM Reporting Lab: [address] [address] Performing Lab: [facility] [address] [place] [address] GEM PH 7.39 7.31-7.41 GEM PCO2 33 [...] TEMP 37.0 Jul 17, 2024 04:25 PM [facility] MAGNESIUM PLASMA Specimen Type: PLASM A Comment: No hemolysis noted. Ordering Provider: CASEY BOONE Report Released Date/Time: Jul 17, 2024 04:24 PM Reporting Lab: [address] [address] Performing Lab: [address] [address] MAGNESIUM 1.4 mg/dL L 1.6-2.6 Jul 17, 2024 04:25 PM [facility] PT/INR NEW (STL-MA) PLASMA Specimen Type: PLAS MA No comment entered. Ordering Provider: CASEY BOONE Report Released Date/Time: Jul 17, 2024 04:24 PM Reporting Lab: [address] [address] Performing Lab: [address] [address] PROTIME 25.3 s H 9.4-12.5 INR VALUE 2.3 {INR} Jul 17, 2024 04:25 PM [facility] COVID-19 DIAGNOSTIC (FLU/RSV)(STL) NASOPHARYNX Spec [...] Jul 17, 2024 04:24 PM Reporting Lab: [address] [address] Performing Lab: [place] [address] INFLUENZA A Negative Negative INFLUENZA B Negative Negative COVID-19 (STL-PB) Not Detected Not Detec nate RSV (Cepheid) NEGATIVE Negative Jul 17, 2024 04:25 PM [facility] COMPREHENSIVE METABOLIC PANEL PLASMA Specimen Type: PLASMA Comment: No hemolysis noted. Ordering Provider: CASEY BOONE Report Released Date/Time: Jul 17, 2024 04:24 PM Reporting Lab: [address] [address] Performing Lab: [address] [address] CREATININE 1.25 mg/dL 0.7-1.3 UREA NITROGEN 47.0 [...] 63.1 >60 Jul 17, 2024 04:25 PM [facility] CBC BLOOD Specimen Type: BLOOD No comment entered. Ordering Provider: CASEY BOONE Report Released Date/Time: Jul 17, 2024 04:24 PM Reporting Lab: [facility] [address] [facility] [address] Performing Lab: [facility] [address] [facility] [address] WBC 42.4 10*3/uL H 3.6-11.2 RBC 2.20 [...] H 2.10-8.00 Jul 13, 2024 12:39 PM [facility] PHOSPHOROUS PLASMA Specimen Type: PLASM A Comment: No hemolysis noted. Ordering Provider: TONY SIMMONS Report Released Date/Time: Jun 07, 2024 01:01 PM Reporting Lab: [facility] [address] [facility] [address] Performing Lab: [place] [address] [facility] [address] PHOSPHOROUS 2.4 mg/dL 2.3-4.7 Jul 13, 2024 12:39 PM [facility] TSH W/ REFLEX FT4 (STL) PLASMA Specimen Type: PLASMA No comment entered. Ordering Provider: TONY SIMMONS Report Released Date/Time: Jun 07, 2024 01:01 PM Reporting Lab: [place] [address] [facility] [address] Performing Lab: [place] [address] [facility] [address] TSH 1.431 u[IU]/mL 0.47-5 Jul 13, 2024 12:39 PM [facility] MAGNESIUM PLASMA Specimen Type: PLASM A Comment: No hemolysis noted. Ordering Provider: TONY SIMMONS Report Released Date/Time: Jun 07, 2024 01:01 PM Reporting Lab: [place] [address] [facility] [address] Performing Lab: [place] [address] [facility] [address] MAGNESIUM 2.0 mg/dL 1.6-2.6 Jul 13, 2024 12:39 PM [facility] COMPREHENSIVE METABOLIC PANEL PLASMA Specimen Type: PLASMA Comment: No hemolysis noted. Ordering Provider: TONY SIMMONS Report Released Date/Time: Jun 07, 2024 01:01 PM Reporting Lab: [place] [address] [facility] [address] Performing Lab: [address] [address] CREATININE 0.75 mg/dL 0.7-1.3 UREA NITROGEN 21.3 [...] 98.9 >60 Jul 13, 2024 12:39 PM [facility] CBC BLOOD Specimen Type: BLOOD Comment: no clot Ordering Provider: TONY SIMMONS Report Released Date/Time: Jun 07, 2024 01:01 PM Reporting Lab: [address] [address] Performing Lab: [address] [address] WBC 3.0 10*3/uL L 3.6-11.2 RBC 3.83 [...] 10*3/uL 2.10-8.00 Jul 13, 2024 12:38 PM [facility] ALPHA-FETOPROTEIN(STL-PB) SERUM Specimen Type : SERUM No comment entered. Ordering Provider: CRYSTAL MASSEY Report Released Date/Time: Jul 04, 2024 03:26 PM Reporting Lab: [address] [address] Performing Lab: [address] [address] ALPHA-FETOPROTEIN(STL-PB) 16.86 ng/mL H 1- 8.78 Jul 13, 2024 12:37 PM [facility] CARBOHYDRATE Ag SERUM Specimen Type: SERUM Comment: REFERENCE RANGE: <34 U/mL This test was performed using the Siemens chemiluminescent method. Values obtained from different assay methods cannot be used inter- changeably. CA 19-9 levels, regardless of value, should not be interpreted as absolute evidence of the presence or absence of disease. Test Performed by [facility], [employer] [facility], [address] [place] [address] Tristin Iyer M.D., Ph.D., Director of Laboratories , [facility] [id number] Ordering Provider: CRYSTAL MASSEY Report Released Date/Time: Jul 04, 2024 03:28 PM Reporting Lab: [address] [address] Performing Lab: [facility] [address] [facility] CARBOHYDRATE Ag 61 H SEE BELOW Vital Signs: All taken on the encounter date This section contains inpatient and outpatient Vital Signs collected on the date of the Encounter. Date/Time Temperature Pulse Blood Pressure Respiratory Rate SP02 Pain Height Weight Body Mass Index Source Jul 17, 2024 05:30 PM 108 119/77 [facility] Jul 17, 2024 04:30 PM 109 120/76 [facility] Jul 17, 2024 04:10 PM 97.6 95 89/55 17 0 [facility] Social History: Smoking Status (Most current) and Tobacco Use (All prior to encounter date) This section includes the most current, and the historical, smoking and tobacco- related health factors from the [place] facility where the Encounter took place. Current Smoking Status This section includes the most current smoking, or tobacco-related health factor, from the [place] facility where the Encounter took place. Date/Time Current Smoking Status Comment Facil ity Jul 17, 2024 04:02 PM [facility] ADMIT TOBACCO SCREEN NO [facility] Tobacco Use History This section includes a history of the smoking, or tobacco-related health factors, that were collected on or before the date of the Encounter. The data comes from the [place] facility where the Encounter took place. Date/Time Smoking Status/Tobacco Use Comment F acility Jan 20, 2023 03:49 PM VA-TOBACCO FORMER USER [facility] Jan 20, 2023 03:49 PM VA-TOBACCO QUIT 15 YRS OR MORE [facility] Feb 06, 2021 04:28 PM VA-TOBACCO FORMER USER [facility] Feb 06, 2021 04:28 PM VA-TOBACCO QUIT 15 YRS OR MORE [facility] Radiology Reports: +/- 30 days [...] the Encounter. The data comes from all [place] treatment facilities. Date/Time Radiology Report Provider Source Aug 10, 2024 02:[address] ABD PEL W/CONT & 3D: ABRAHAM HAWKR [id number] -[id number] M Exm Date: AUG 10, 2024@14:33 Req Phys: YASIR SANZ MD Pat Loc: [facility] 2ND SHIFT (R Img Loc: [facility] Service: Unknown [facility] [address] [place] [address] (Case [id number] COMPLETE) CT ABDOMEN AND PELVIS W/CONTRAST (CT Detailed) CPT:50364 Contrast Media : Non-ionic Iodinated Reason for Study: Abdominal pain, vomiting Clinical History: Responsible Attending: Svetlana Attending Contact Number: [id number] Resident Contact Number: Abdominal pain, vomiting Allergies listed in CPRS chart: Patient has answered NKA Creatinine:CREATININE 0.82 mg/dL 08/10/2024 11:30 /eGFR: STL EGFR (within one year). CREATININE 0.82 mg/dL (08/10/24 11:30) Wt: 152.1 lb [68.99 kg] (08/10/2024 11:31) History of: Renal failure, chronic or acute renal disease: NO Report Status: Verified Date Reported: AUG 10, 2024 Date Verified: AUG 10, 2024 Streetcar Operator E-Sig:/ES/PETROS MCCORD Report: Case [id number]. CT ABDOMEN AND PELVIS W/CONTRAST. Gastrointestinal contrast: [...] inguinal hernias. Dictated by Kenneth Albright DO (vice president compliance). I, Petros Mccord, have reviewed the images and report and concur with these findings. Primary Interpreting Staff: PETROS MCCORD MD (Streetcar Operator) Primary Interpreting Resident: KENNETH ALBRIGHT, [employer] Instructor /PETROS REESE [facility] Aug 01, 2024 10:20 AM PET/CT TUMOR IMAGING (SKULL TO MID-THIGH)-P: ABRAHAM HAWK [id number] -1955 M Exm Date: AUG 01, 2024@10:20 Req Phys: TONY SIMMONS Loc: [facility]-ONCOLOGY IRIS (Req'g Loc) [facility] [place]: [place] Service: [facility], [facility] [address] [place] [address] (Case [id number] COMPLETE) PET/CT TUMOR SKULL BASE TO MID-T(NM Detailed) CPT:59882 CPT Modifiers : PS PET TUMOR SUBSQ TX STRATEGY Reason for Study: Nasopharyngeal cancer (Case [id number] COMPLETE) F-18 FLUORODEOXYGLUCOSE (FDG),PER(NM Detailed) CPT:A9552 Clinical History: Report Status: Verified Date Reported: AUG 01, 2024 Date Verified: AUG 01, 2024 Streetcar Operator E-Sig:/LOLY/NATASHA LEIJA Report: PATIENT NAME: ABRAHAM HAWK. CASE #: [id number], [id number]. PROCEDURE: PET/CT study Indication: Nasopharyngeal cancer HISTORY: [...] lytic osseous lesion is noted within the ftuha-dh-cgnr. Impression: 1. The previous sites of FDG [...] NEEDED Primary Interpreting Staff: NATASHA LEIJA MD (Streetcar Operator) /PFT NATASHA LEIJA [facility] Jul 27, 2024 03:41 PM CHEST PORTABLE: ABRAHAM HAWK [id number] -1955 M Exm Date: JUL 27, 2024@15:41 Req Phys: GENDI,KIKAHIED Pat Loc: -EMERGENCY DEPT 2ND SHIFT (R Img Loc: -MAIN RADIOLOGY SUITE Service: [facility] [address] [place] [address] (Case [id number] COMPLETE) CHEST PORTABLE (RAD Detailed) CPT:99816 Proc Modifiers : Portable Reason for Study: sob Clinical History: Report Status: Verified Date Reported: JUL 27, 2024 Date Verified: JUL 27, 2024 Streetcar Operator E-Sig:/ES/Sol Abraham MD Report: CASE [id number]. AP portable view chest. COMPARISON: Chest x-ray [...] advised. Report dictated by Krystian Sultana D.O. (vice president compliance) Sol Kilgore, have reviewed the images and report and concur with these findings. Primary Interpreting Staff: Sol Abraham MD, Radiologist (Streetcar Operator) Primary Interpreting Resident: Krystian Sultana D.O., Resident Physician /SOL DHALIWAL [facility] Jul 17, 2024 06:[address] ABD PEL W/CONT & 3D: ABRAHAM HAWK [id number] -1955 M Exm Date: JUL 17, 2024@18:18 Req Phys: CASTRO BOONEJOSESITO Giraldo Loc: 4-C SICU-[facility]/07-17-2024@19:47 Img Loc: [facility]-CT IMAGING [facility] Service: Unknown [facility], [facility] [address] [place] [address] (Case [id number] COMPLETE) CT ABDOMEN AND PELVIS W/CONTRAST (CT Detailed) CPT:20250 Contrast Media : Non-ionic Iodinated Reason for Study: septic shock, abd pain Clinical History: Responsible Attending: Nils Attending Contact Number: [phone] Resident Contact Number: Septic shock, Patient with [...] 17, 2024 Date Verified: JUL 17, 2024 Streetcar Operator E-Sig: Report: CT THORAX W/CONT (PE) [PRINTSET], CT ABDOMEN AND PELVIS W/CONTRAST [PRINTSET] Comparison: 03/17/2022, 04/23/2024 Clinical History: RO PE The study was protocoled and supervised at the local [place] facility. Chest 12 series and 1585 images were subsequently received by the [place] [facility] (NTP) for interpretation. Abdomen and pelvis 9 series and 1365 images were subsequently received by the [place] [facility] (NTP) for interpretation. Total [...] from 09/12/2023. READING PHYSICIAN: Guilherme Talbert M.D. -[phone] 07/17/2024 17:44 [facility] [phone] (For Medical Practitioner Use Only) Attention Patients / Veterans: If you have questions or concerns about these test results, please contact your ordering provider or primary care team. Primary Interpreting Staff: RADIOLOGY,OUTSIDE SERVICE, Staff Physician / RADIOLOGY,OUTSIDE SERVICE [facility] Jul 17, 2024 06:[address] PE CHEST W/3D: ABRAHAM HAWK [id number] -1955 M Exm Date: JUL 17, 2024@18:17 Req Phys: CASEY BOONE Kristal Loc: 4-C SICU-[facility]/07-17-2024@19:47 Img Loc: [facility]-CT IMAGING LOKESH Service: Unknown [facility], [facility] [address] [place] [address] (Case [id number] COMPLETE) CT THORAX W/CONT (PE) (CT Detailed) CPT:62766 Contrast Media : unspecified contrast media Reason for Study: RO PE Clinical History: Responsible Attending: Nils Attending Contact Number: [phone] Resident Contact Number: Patient with HCC and [...] 17, 2024 Date Verified: JUL 17, 2024 Streetcar Operator E-Sig: Report: CT THORAX W/CONT (PE) [PRINTSET], CT ABDOMEN AND PELVIS W/CONTRAST [PRINTSET] Comparison: 03/17/2022, 04/23/2024 Clinical History: RO PE The study was protocoled and supervised at the local [place] facility. Chest 12 series and 1585 images were subsequently received by the [place] [facility] (NTP) for interpretation. Abdomen and pelvis 9 series and 1365 images were subsequently received by the [place] [facility] (NTP) for interpretation. Total [...] from 09/12/2023. READING PHYSICIAN: Guilherme Talbert M.D. -[phone] 07/17/2024 17:44 PST [facility] [employer] [phone] (For Medical Practitioner Use Only) Attention Patients / Veterans: If you have questions or concerns about these test results, please contact your ordering provider or primary care team. Primary Interpreting Staff: RADIOLOGY,OUTSIDE SERVICE, Staff Physician / RADIOLOGY,OUTSIDE SERVICE [facility] Pathology Reports: +/- 30 days of [...] the Encounter. The data comes from all [place] treatment facilities. Date/Time Pathology Report Provider Source [...] - - - - GROSS DESCRIPTION: Hazel Barclay 08/14/2024 Received in formalin in a container [...] Performing Laboratory: Surgical Pathology Report Performed By: [facility] CLIA# [id number] [facility] [address] [place] [address] $FTR - - - - - - [...] - - ABRAHAM HAWK STANDARD FORM 515 ID:[id number] SEX:M :1955 AGE: 68 LOC:APFEE PCP: Deirdre Wild /eze [place] Pathologist Signed: 08/16/2024 09:43 CRISTIANA TEM[place]TON [facility] Aug 11, 2024 06:00 AM LR MICROBIOLOGY RE PORT: Accession [UID]: [id number] [[id number]] Received: Aug 11, 2024@06:19 Collection sample: B D BLD. BOTTLE Collection date: Aug 11, 2024 06:00 Site/Specimen: BLOOD Provider: GILSON OG Test(s) ordered: BLOOD CULT (SET 1)............ completed: Aug 17, 2024 10:06 * BACTERIOLOGY FINAL REPORT => Aug 17, 2024 10:22 TECH CODE: [id number] Bacteriology Remark(s): 2. KAA Culture shows NO GROWTH IN 6 DAYS =--=--=--=--=--=--=--=--=-- =--=--=--=--=--=--=--=--=-- =--=--=--=--=--=--=--=-- Performing Laboratory: Bacteriology Report Performed By: [address] CLIA# [id number] [address] [place] [id number] JULISSA BROWN [facility] Jul 17, 2024 05:10 PM LR MICROBIOLOGY RE PORT: Accession [UID]: [id number] [[id number]] Received: Jul 17, 2024@17:30 Collection sample: B D BLD. BOTTLE (SET 2)Collection date: Jul 17, 2024 17:10 Site/Specimen: BLOOD Provider: CASEY BOONE Test(s) ordered: BLOOD CULT (SET 2)............ completed: Jul 23, 2024 14:26 * BACTERIOLOGY FINAL REPORT => Jul 23, 2024 14:28 TECH CODE: [id number] Bacteriology Remark(s): CULTURE IS NEGATIVE TO DATE, ALL POSITIVES ARE ROUTINELY CALLED. [facility] Culture shows NO GROWTH IN 6 DAYS. 07/23/24 KI =--=--=--=--=--=--=--=--=-- =--=--=--=--=--=--=--=--=-- =--=--=--=--=--=--=--=-- Performing Laboratory: Bacteriology Report Performed By: [address] CLIA# [id number] [address] [place] [phone] [facility] Jul 17, 2024 05:10 PM LR MICROBIOLOGY RE PORT: Accession [UID]: [id number] [[id number]] Received: Jul 17, 2024@17:30 Collection sample: B D BLD. BOTTLE Collection date: Jul 17, 2024 17:10 Site/Specimen: BLOOD Provider: CASEY BOONE Test(s) ordered: BLOOD CULT (SET 1)............ completed: Jul 23, 2024 14:26 * BACTERIOLOGY FINAL REPORT => Jul 23, 2024 14:28 TECH CODE: [id number] Bacteriology Remark(s): CULTURE IS NEGATIVE TO DATE, ALL POSITIVES ARE ROUTINELY CALLED. KI Culture shows NO GROWTH IN 6 DAYS. 07/23/24 KI =--=--=--=--=--=--=--=--=-- =--=--=--=--=--=--=--=--=-- =--=--=--=--=--=--=--=-- Performing Laboratory: Bacteriology Report [facility]formed [facility]: [facility] CLIA# [id number] [address] [place] [phone] JULISSA BROWN [facility] Encounter Notes: All associated encounter notes This section contains the clinical notes associated to the Encounter. Date/Time Encounter Note(s) Provider Source Jul 17, 2024 07:00 PM RADIOLOGY PREPROCE DURE NOTE: LOCAL TITLE: RADIOLOGY CONTRAST ADMINISTRATION STANDARD TITLE: RADIOLOGY PREPROCEDURE NOTE DATE OF NOTE: JUL 17, 2024@19:00 ENTRY DATE: JUL 17, 2024@19:00:56 AUTHOR: BOB HENRY EXP COSIGNER: URGENCY: STATUS: COMPLETED CT and General Radiology Contrast Questionnaire PATIENT NAME: ABRAHAM HAWK SSN: [id number] DATE: Jun EXAM: CT PE/AP Referring Physician: CASEY BOONE TO BE COMPLETED PRIOR TO CONTRAST ADMINISTRATION: 1. Has the patient been instructed about the procedure? Yes 2. Is there a history of food or drug allergies? No 3. Is there history of complication with IV contrast? No 4. Is EFGR less than 30? No eGFR: STL EGFR (within one year). CREATININE 1.25 mg/dL (07/17/24 16:25) CREATININE 1.25 mg/dL 07/17/2024 16:25 EGFR (CKD-EPI 2020) 63.1 07/17/2024 16:25 5. Is EFGR result for inpatient within 24 hrs? Yes 6. Is EFGR result for outpatient with history of renal insufficiency within 7 days or for outpatient with history of normal renal function within 30 days? Yes 7. Is the patient's Medical Reconciliation list correct?Yes 8. Is the patient on metformin? No 9. Has the patient violated NPO requirements? No 10. Does the patient have a history of multiple myeloma? No 11. Does the patient have sickle cell anemia? No 12. Is the patient a breast-feeding female? No 13. Is there a chance the patient could be ? No 14. Does the patient have only one kidney? No 15. The patient has had no iodinated contrast in the past 24 hours? No 16. The exception for Diagnostic Imaging Service policy was NONE and this was discussed and Approve by Dr: MATTAR. PEÑA for contrast administration. 17. If patient meets DIS policy criteria for high risk for contrast reaction or toxicity, Informed Consent has been obtained by: NONE 18. The information was reviewed and meets Diagnostic Imaging Policy to administer contrast. Yes DIS Policy: 1,5,6,7,16,17,18 =Y or NA // 2,3,4,8,9,10,11,12,13,14,1 5 = N Name of Contrast: OMNIPAQUE 350 Lot#: [id number] Dosage: 100ML Injection Site: 20G RAC /loly/ BOB HENRY radioloy technology (RT)(CT) Signed: 07/17/2024 19:03 BOB HENRY [facility] Jul 17, 2024 05:08 PM RESPIRATORY THERAP Y NOTE: LOCAL TITLE: RESPIRATORY THERAPY ST STANDARD TITLE: RESPIRATORY THERAPY NOTE DATE OF NOTE: JUL 17, 2024@17:08 ENTRY DATE: JUL 17, 2024@17:08:39 AUTHOR: SYLVIA FOWLER EXP COSIGNER: URGENCY: STATUS: COMPLETED Time of test performance: Jun@17:00 Sample collected by: Provider/Nurse: Sample type: Venous Specimen delivered to RT by: RT picked up ABG Critical Value Documentation: Date and Time of notification: Brayan 21,2025@17:00 Provider notified: Rebel Angeles RN Name of person who reported critical result: Sylvia Fowler BOOKSTORE MANAGER Read back of verbal or phoned critical result performed Yes Critical Values Reported to Provider: Darrius selby/ SYLVIA FOWLER Respiratory Therapist Signed: 07/17/2024 17:10 SYLVIA FOWLER [facility] Jul 17, 2024 04:45 PM PHYSICIAN EMERGENC Y DEPT NOTE: LOCAL TITLE: EMERGENCY DEPARTMENT [facility] STANDARD TITLE: PHYSICIAN EMERGENCY DEPT NOTE DATE OF NOTE: JUL 17, 2024@16:45 ENTRY DATE: JUL 17, 2024@16:45:08 AUTHOR: CASEY BOONE EXP COSIGNER: URGENCY: STATUS: COMPLETED TRIAGE CHIEF COMPLAINT: SOB, weakness HPI: Patient is a 68-year-old man with history of HCC, 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 Made by his who helps Supplement history. Patient received his first dose of pembrolizumab on July 13. He reports that shortly after he started feeling weak and also increasingly short of breath. Started having very frequent watery stools yesterday up to a point where he needed to have a bucket next to his bed. Very poor appetite. Unable to keep fluids down. Also reporting significant nausea. No fever chills new or worsening cough. Has a chronic dry cough which is unchanged. Has some baseline rhinorrhea also unchanged. No history of positive sick contacts. Reports intermittent black stools, none recently. No other episodes of bleeding. Patient arrives to the ER with a blood pressure of 89/55 and heart rate of 95. REVIEW OF SYSTEMS: See HPI for further details. All 10 systems reviewed and otherwise negative unless otherwise detailed herein. 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 CURRENT MEDICATIONS: Active Outpatient Medications (including Supplies): Active Outpatient Medications Status 1) ARTIFICIAL SALIVA ORAL SPRAY USE 3-5 SPRAYS BY MOUTH EVERY ACTIVE TWO HOURS NEEDED Indication: FOR DRY MOUTH AND THROAT 2) LOPERAMIDE HCL 2MG CAP TAKE TWO CAPSULES BY MOUTH ACTIVE DIRECTED AT FIRST ONSET OF DIARRHEA THEN 1 CAPSULE AFTER EACH LOOSE STOOL UNTIL DIARRHEA FREE FOR 12 HOURS Indication: FOR DIARRHEA 3) NUTRITION SUPL ENSURE PLUS/STRWBERRY LIQ TAKE 1 CANFUL BY ACTIVE MOUTH FOUR TIMES A DAY Indication: FOR NUTRITION/DIETARY SUPPLEMENTATION 4) OMEPRAZOLE 40MG EC CAP TAKE ONE CAPSULE BY MOUTH EVERY ACTIVE MORNING BEFORE A MEAL TO LOWER STOMACH ACID. TAKE 30 MINUTES PRIOR TO FOOD. 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 Any medication discrepancies have been resolved. Patient will be provided with an updated list of his/her medication(s). SURGICAL HISTORY: not pertinent FAMILY HISTORY: not pertinent SOCIAL HISTORY: Social History Main Topics: Smoking status: No data available for: Current Tobacco User Alcohol Use: not indorsed ____ Illicit Drug Use: not indorsed Sexual Activity: Other Topics of Concern: ALLERGIES: Review of patient's allergies indicates: Patient has answered NKA PHYSICAL EXAM: VITAL SIGNS: 89/55 (07/17/2024 16:10)95 (07/17/2024 16:10)99% (07/13/2024 13:32)97.6 F [36.4 C] (07/17/2024 16:10)17 (07/17/2024 16:10)The OBJECT WEIGHT LAST 3 was NOT found...Contact IRM. MAThe OBJECT was NOT found...Contact IRM.PAIN ASSESSMENTThe OBJECT was NOT found...Contact IRM. Measurement DT PAIN 07/17/2024 16:10 0 CONSTITUTIONAL: In moderate distress, Non-toxic appearance HENT: airway patent, oropharynx clear EYES: Conj pink, sclera clear NECK: Supple, No stridor, No LAD. CARDIOVASCULAR: Tachycardic normal rhythm, No murmurs, No rubs, No gallops. PULMONARY/CHEST: Decreased air entry all over, no wheezes no crackles ABDOMEN: Bowel sounds normal, Soft, flat, No tenderness, EXTREMITIES: , No edema, No tenderness NEUROLOGIC: Alert & oriented x 3, Normal motor function, gait could not be assessed due to shortness of breath no focal deficits appreciated on cursory screening exam SKIN: Warm, Dry, No erythema, No rash LABS: LAB CHEMISTRY & HEMATOLOGY Collection DT Specimen Test Name Result Units Ref Range 07/17/2024 19:36 BLOOD POCTGLU 98 mg/dL 72 - 99 Comment: Test Performed by: [id number] Meter #: [id number] 07/17/2024 19:35 VENOUS BLO GEM PH 7.39 UNITS 7.31 - 7.41 GEM PCO2 31 L mmHg 41 - 51 GEM PO2 27 mmHg 25 - 48 GEM SODIUM 130 L mmol/L 136 - 145 GEM POTASSIUM 4.0 mmol/L 3.5 - 5.0 GEM CHLORIDE 103 mmol/L 98 - 107 GEM IONIZED CA 1.18 mmol/L 1.09 - 1.30 GEM HCT <15 % 38 - 48 GEM THB 4.2 L* g/dL 13.1 - 16.8 GEM 02HB 45.5 L % 60.0 - 85.0 GEM COHB 1.3 % 0.5 - 2.0 GEM METHB 2.5 % 2.0 - 1.9 GEM GLUCOSE 69 L mg/dL 72 - 99 GEM LACTATE 6.0 H mmol/L 0.9 - 2.0 GEM SO2 47.3 L % 68.0 - 77.0 GEM CHCO3 18.8 mmol/L 20.0 - 26.0 GEM BASE EXCESS -5.8 L mmol/L -2.5 - 2.5 GEM FIO2 21.0 % GEM PT. TEMP 37.0 C Comment: normalcy status - Below absolute low-off instrument scale Comment: Test Performed by: [id number] Meter #: [id number] 07/17/2024 19:10 URINE URN.GLUCOSE Normal mg/dL Ref: Negative URN.PROTEIN Negative mg/dL Negative - 20 URN.UROBILINOGEN Normal mg/dL Ref: Normal URN.BLOOD Negative mg/dL Ref: Negative-Trace URN.KETONES Trace mg/dL Ref: Negative-Trace URN.LEUK.EST. Negative mg/dL Ref: Negative-Trace URN SG 1.029 1.005 - 1.029 URINE COLOR Light-Yellow Ref: Yellow APPEARANCE Clear Ref: Clear U.PH 6.0 5.0 - 8.0 U.BILIRUBIN Negative mg/dL Ref: Negative U.NITRITE Negative mg/dL Ref: Negative 07/17/2024 18:25 BLOOD PLT EST-CV ADEQUATE Ref: ADEQUATE WBC 27.6 H 10*3/uL 3.6 - 11.2 RBC 1.76 L 10*6/uL 4.10 - 5.70 HGB 6.1 L* g/dL 13.1 - 16.8 HCT 17.5 L % 38.2 - 48.4 MCV 99.4 fL 80.0 - 100.0 MCH 34.7 H pg 27.0 - 34.0 MCHC 34.9 g/dL 33.0 - 36.0 RDW 14.7 % 11.8 - 15.1 PLT 92 L 10*3/uL 150 - 400 MPV 13.6 H fL 7.5 - 11.2 NEUTROPHILS 93.0 % BAND NEUTROPHILS 0.9 % LYMPHOCYTES 3.5 % MONOCYTES 1.7 % NEUT#-MDIFF 25.67 H K/cmm 2.10 - 8.00 LYMPH#-MDIFF 1.21 K/cmm 0.77 - 4.50 MONO#-MDIFF 0.47 K/cmm 0.19 - 0.80 IG#-MDIFF 0.25 H # 0.00 - 0.05 ATY LYMPH 0.9 % ANISOCYTOSIS 1+ POLYCHROMASIA 1+ PAPPENHEIMER BODI 0 IPF 13.8 H % 1.0 - 7.0 Comment: HGB Called to : Watson White at: 1933 on:[id number] by: SHARON Comment: Critical Verbal Readback Performed 07/17/2024 18:25 PLASMA HAPTOGLOBIN (STL 93 mg/dL 44 - 215 LDH 305 H U/L 125 - 243 07/17/2024 18:25 BLOOD RETIC RATIO 7.35 H % 0.50 - 2.30 RETIC COUNT,ABS 0.129 H 10*6/Ul 0.022 - 0.101 RET-HE 35.8 pg 28.2 - 36.6 IRF 39.7 H % 2.3 - 13.4 07/17/2024 16:59 VENOUS BLO GEM PH 7.39 UNITS 7.31 - 7.41 GEM PCO2 33 L mmHg 41 - 51 GEM PO2 16 L mmHg 25 - 48 GEM SODIUM 129 L mmol/L 136 - 145 GEM POTASSIUM 4.5 mmol/L 3.5 - 5.0 GEM CHLORIDE 97 L mmol/L 98 - 107 GEM IONIZED CA 1.21 mmol/L 1.09 - 1.30 GEM HCT 30 L % 38 - 48 GEM THB 10.3 L g/dL 13.1 - 16.8 GEM 02HB 17.1 L % 60.0 - 85.0 GEM COHB 0.5 % 0.5 - 2.0 GEM METHB 1.5 L % 2.0 - 1.9 GEM GLUCOSE 104 H mg/dL 72 - 99 GEM LACTATE 8.1 H mmol/L 0.9 - 2.0 GEM SO2 17.4 L % 68.0 - 77.0 GEM CHCO3 20.0 mmol/L 20.0 - 26.0 GEM BASE EXCESS -4.3 L mmol/L -2.5 - 2.5 GEM FIO2 21.0 % GEM PT. TEMP 37.0 C Comment: Test Performed by: [id number] [facility] #: [id number] 07/17/2024 16:25 WILLIAM COVID-19 (STL-PB)Not Detected Ref: Not Detected RSV (Cepheid) NEGATIVE Ref: Negative INFLUENZA A Negative Ref: Negative INFLUENZA B Negative Ref: Negative Comment: Qualitative real-time PCR and RT-PCR to detect viral RNA. A Comment: negative result does not preclude infection with the agent(s) Comment: tested and should not be used as the sole basis for treatment or Comment: other patient management decisions. If negative, but symptoms Comment: persist, consider re-testing. Positive results do not rule out Comment: bacterial infection or co-infection with other viruses. All results Comment: must be combined with clinical observations, patient history, and Comment: epidemiological information for final interpretation. 07/17/2024 16:25 BLOOD PLT EST-CV ADEQUATE Ref: ADEQUATE WBC 42.4 H 10*3/uL 3.6 - 11.2 RBC 2.20 L 10*6/uL 4.10 - 5.70 HGB 7.8 L g/dL 13.1 - 16.8 HCT 21.9 L % 38.2 - 48.4 MCV 99.5 fL 80.0 - 100.0 MCH 35.5 H pg 27.0 - 34.0 MCHC 35.6 g/dL 33.0 - 36.0 RDW 14.7 % 11.8 - 15.1 PLT 148 L 10*3/uL 150 - 400 MPV 13.3 H fL 7.5 - 11.2 NEUT% 91 % LYMPH% 3 % MONOCYTES, AUTO % 4 % EO% 0 % BASOPHILS, AUTO % 0 % NEUT ABS 38.31 H 10*3/uL 2.10 - 8.00 LYMPH ABS 1.26 10*3/uL 0.77 - 4.50 MONO ABS 1.75 H 10*3/uL 0.19 - 0.80 EO ABS 0.01 10*3/uL 0.00 - 0.60 BASO ABS 0.10 10*3/uL 0.00 - 0.20 NEUTROPHILS 95.7 % BAND NEUTROPHILS 1.7 % LYMPHOCYTES 1.7 % NEUT#-MDIFF 40.58 H K/cmm 2.10 - 8.00 LYMPH#-MDIFF 0.72 L K/cmm 0.77 - 4.50 IG#-MDIFF 1.10 H # 0.00 - 0.05 METAMYELOCYTES 0.9 % ANISOCYTOSIS 1+ POLYCHROMASIA 1+ PAPPENHEIMER BODI 0 IPF 14.6 H % 1.0 - 7.0 07/17/2024 16:25 PLASMA INR VALUE 2.3 INR PROTIME 25.3 H sec 9.4 - 12.5 07/17/2024 16:25 PLASMA EGFR 63.1 Ref: >=60 SODIUM 131 L mEq/L 136 - 145 POTASSIUM 4.1 mEq/L 3.5 - 5 CHLORIDE 99 mEq/L 98 - 107 UREA NITROGEN 47.0 H mg/dL 9.0 - 25.0 CREATININE 1.25 mg/dL 0.7 - 1.3 CALCIUM 9.1 mg/dL 8.4 - 10.4 MAGNESIUM 1.4 L mg/dL 1.6 - 2.6 PROTEIN 6.4 g/dL 6 - 8.6 ALBUMIN 3.1 L g/dL 3.4 - 5 AKP 97 U/L 40 - 150 ALT/SGPT 57 H U/L 8 - 40 AST/SGOT 100 H U/L 5 - 34 TOTAL BILIRUBIN 1.4 H mg/dL 0.2 - 1.2 CARBON DIOXIDE 17 L mEq/L 22 - 31 GLUCOSE 110 H mg/dL 72 - 99 Comment: No hemolysis noted. LAB MICROBIOLOGY Collected: 07/17/2024 17:10 Acc: JCMI [id number] Collection Sample: B D BLD. BOTTLE (SET 2) Site/Specimen: BLOOD Test(s) ordered: BLOOD CULT (SET 2) Collected: 07/17/2024 17:10 Acc: JCMI [id number] Collection Sample: B D BLD. BOTTLE Site/Specimen: BLOOD Test(s) ordered: BLOOD CULT (SET 1) Date Procedure CPT Status Case # 07/17/2024 CT ABDOMEN AND PELVIS [id number] Verified 1270 W/CONTRAST Left upper lobe cavitary nodules measuring up [...] from 09/12/2023. READING PHYSICIAN: Guilherme Talbert M.D. -[phone] 07/17/2024 17:44 [facility] [phone] (For Medical Practitioner Use Only) Attention Patients / Veterans: If you have questions or concerns about these test results, please contact your ordering provider or primary care team. 07/17/2024 CT THORAX W/CONT (PE) [id number] Verified 1269 Left upper lobe cavitary nodules measuring up [...] from 09/12/2023. READING PHYSICIAN: Guilherme Talbert M.D. -[phone] 07/17/2024 17:44 [facility] [phone] (For Medical Practitioner Use Only) Attention Patients / Veterans: If you have questions or concerns about these test results, please contact your ordering provider or primary care team. RADIOLOGY: ECG IMPRESSION: ED COURSE & MEDICAL DECISION MAKING: Nursing notes, medications, vital signs, allergies and pertinent labs & imaging studies reviewed (see chart for details) with lab results reviewed with patient/family and radiology results reviewed with patient/family. Stable, alert, nontoxic, nonfocal with clinically apparent significant shortness of breath tachycardia and borderline blood pressure. Started on 1 L normal saline. VBG with lactate of 8. Blood cultures ordered. 1 dose of vancomycin and pip-tazo ordered. Plan to give patient 2 L in the ED (>30mg/kg) resuscitation. CBC returned with a significant decrease in hemoglobin from baseline (14->7.8) with a white count of 42,000. CT AP and CT chest PE ordered. Discussed patient with oncology Dr Che who is reviewing patient's labs, awaiting hemolysis labs. Patient accepted to ICU. Clinical information obtained from an independent historian. History obtained from or confirmed by: _x__spouse ___parent ___guardian ___family ___friend ___EMS ___other: Discussed with radiology regarding test interpretation: I performed an independent interpretation of: _x__EKG ___rhythm strip ___plain x-ray ___ultrasound _x__CT scan ___MRI ___other Patient's care impacted by: ___Diabetes ___Hypertension _x__Cancer ___other: Patient's care is significantly limited by social determinants of health including, but not limited to: ___inadequate housing ___low income ___alcoholism and drug addiction in family ___problems related to primary support group ___unemployment ___problems with employment ___language barrier ___lack of transportation ___psychiatric disease ___other social determinants of health: External records reviewed: ___Inpatient records _x__office records _x__outpatient records _x__prior outpatient labs ___prior outpatient radiology ___primary care record ___outside ED record ___PMD referral ___outside ER ___urgent care referral ___other: Management of the patient was discussed with: _x__Hospitalist _x__consultant ___behavioral health provider ___primary care provider ___other: The following testing was considered but ultimately was not performed after discussion with the patient/family: I considered prescription management with the following but ultimately did not prescribe: ___pain medication ___antiviral ___antibiotic ___other: I considered admission/ observation but decided upon discharge due to: admitted CARTOGRAPHY TECHNICIAN SERVICE/TIME: onc MEDICATIONS GIVEN IN ED: [x ] YES [ ] NO Critical care time 45 minutes, exclusive of other separately billable procedures. Critical decision- making includes but not limited to resuscitation, diagnostic interpretation discussion with consultants. The patient was reassessed 3 times. D/W consultants and family directly pertinent to patient care. DIFFERENTIAL DIAGNOSES CONSIDERED: DECISION to ADMIT / DISCHARGE TIME: 16:45 DISPOSITION CONDITION:[ x ] Improved [ ] Unchanged [ ] Deteriorated CLINICAL IMPRESSION: 1 -shortness of breath 2 -acute anemia 3 - /loly/ CASEY BOONE MD Staff Physician MOD Signed: 07/17/2024 20:01 Receipt Acknowledged By: 07/18/2024 08:05 /loly/ AMY PA- NURSE PRACTITIONER CASEY BOONE [facility]
--- OUTSIDE RECORDS SUMMARY | 2024-10-08 17:08 | XMS_ITS | Encounter Summary ---
Author Name [facility] Address [address] [place] [address] Care Team Providers Care Investment Banking Analyst Name Role Phone SUKHJINDER CHAHAL Primary Care [...] SUPPL EMENT Nov 25, 2021 PLAN G [id number] [phone] ELLEN HAWK VID PATIENT AARP MED SUPP MEDIGAP PLAN G MEDIC ARE SUPPL EMENT Nov 25, 2021 PLAN G [id number] [phone] ELLEN HAWK VID PATIENT MEDICARE (WNR) MEDICARE (M) PART B Sep 25, 2021 PART B [id number] [phone] ELLEN HAWK VID PATIENT MEDICARE (WNR) MEDICARE (M) PART A Aug 25, 2021 PART A [id number] [phone] ELLEN HAWK PATIENT Selected Encounter This section includes the information on record at [place] for the Encounter. Date/Time Encounter Type Encounter Description Reason Provider Source Apr 21, 2024 06:58 AM Outpatient Encounter COMMUNITY CARE CONSULT HORACE CORNELIUS E Encounter Template Text not used by [place] Plan of Treatment: Future Appointments (+ 6 months) and Future Tests (+/- 45 days) The Plan of Treatment section includes future care activities for the patient from all [place] [facility]. This section includes future appointments and future orders which are active, pending or scheduled. Future Appointments This section includes appointments that were scheduled to occur 6 months from the date of the Encounter, up to a maximum of 20 appointments. The data comes from all [place] treatment facilities. Appointment Date/Time Appointment Type Appointme nt Facility Name Apr 23, 2024 11:00 AM AMBULATORY - NONE [facility] Apr 23, 2024 01:30 PM AMBULATORY - SURGERY [facility] May 02, 2024 01:30 PM AMBULATORY - SURGERY [facility] May 11, 2024 01:00 PM AMBULATORY - NONE [facility] May 11, 2024 02:15 PM AMBULATORY - NONE [facility] May 11, 2024 02:30 PM AMBULATORY - MEDICINE [facility] May 17, 2024 02:15 PM AMBULATORY - NONE [facility] May 22, 2024 03:30 PM AMBULATORY - NONE [facility] May 28, 2024 01:30 PM AMBULATORY - NONE [facility] Jun 07, 2024 11:15 AM AMBULATORY - REHAB MEDICIN E [facility] Jun 07, 2024 01:00 PM AMBULATORY - MEDICINE [facility] Jul 13, 2024 11:30 AM AMBULATORY - MEDICINE [facility] Jul 13, 2024 12:00 PM AMBULATORY - MEDICINE [facility] Jul 17, 2024 04:02 PM AMBULATORY - MEDICINE [facility] Jul 25, 2024 01:00 PM AMBULATORY - MEDICINE [facility] Jul 26, 2024 10:00 AM AMBULATORY - MEDICINE [facility] Jul 27, 2024 03:14 PM AMBULATORY - MEDICINE [facility] Aug 01, 2024 10:15 AM AMBULATORY - NONE [facility] Aug 02, 2024 11:30 AM AMBULATORY - MEDICINE [facility] Aug 02, 2024 11:31 AM AMBULATORY - MEDICINE [facility] Lab Results: +/- 30 days of the [...] Type Comment May 11, 2024 02:35 PM [facility] TSH W/ REFLEX FT4 (STL) PLASMA Specimen Type: PLASMA No comment entered. Ordering Provider: TONY SIMMONS Report Released Date/Time: Jan 05, 2024 02:09 PM Reporting Lab: [facility] [address] [place] [address] Performing Lab: [facility] [address] [place] [address] TSH 1.974 u[IU]/mL 0.47-5 May 11, 2024 02:20 PM [facility] PT/INR NEW (STL-MA) PLASMA Specimen Type: PLAS MA No comment entered. Ordering Provider: BAL CAREY Report Released Date/Time: May 11, 2024 02:03 PM Reporting Lab: [facility] [address] [place] [address] Performing Lab: [facility] [address] [place] [address] PROTIME 12.1 s 9.4-12.5 INR VALUE 1.1 {INR} May 11, 2024 02:20 PM [facility] APTT PLASMA Specimen Type: PLASM A No comment entered. Ordering Provider: BAL CAREY Report Released Date/Time: May 11, 2024 02:03 PM Reporting Lab: [address] [place] [address] Performing Lab: [place] [address] [place] [address] APTT 28.7 s 26.7-39.9 May 11, 2024 02:20 PM [facility] HEP B CORE AB TOTAL. (STL) SERUM Specimen Typ e: SERUM No comment entered. Ordering Provider: BAL CAREY Report Released Date/Time: May 11, 2024 02:18 PM Reporting Lab: [address] [address] Performing Lab: [address] [address] HEP B CORE AB TOTAL. (STL) Nonreactive N onreactive May 11, 2024 02:20 PM [facility] COMPREHENSIVE METABOLIC PANEL PLASMA Specimen Type: PLASMA Comment: No hemolysis noted. Ordering Provider: BAL CARYE Report Released Date/Time: May 11, 2024 02:03 PM Reporting Lab: [place] [address] [facility] [address] Performing Lab: [address] [address] CREATININE 1.06 mg/dL 0.7-1.3 UREA NITROGEN 20.5 [...] 76.9 >60 May 11, 2024 02:19 PM [facility] PROTEIN ELECTROPHORESIS BLOOD SERUM Specimen Type: SERUM Comment: Reference Range: None Detected normalcy status - Abnormal normalcy status - Abnormal NOTE: THIS RESULT IS FLAGGED ABNORMAL Evaluation reveals a restricted band (M-spike) migrating in the gamma globulin region. If not already requested, Immunofixation should be considered. Test Performed by [facility], [facility], [id number] [place] [address] Tristin Iyer M.D., Ph.D., Director of Laboratories , [place] [id number] PREVIOUS SUGAR: IgG [place] Ordering Provider: TONY SIMMONS Report Released Date/Time: Jan 05, 2024 02:08 PM Reporting Lab: [address] [address] Performing Lab: [facility] [address] [facility] ALPHA-1 GLOBULIN(SO-PB-STL) 0.3 g/dL 0.2 -0.3 ALPHA-2 GLOBULIN(SO-PB-STL) 0.8 g/dL 0.5 -0.9 BETA 1 GLOBULIN(SO-PB-STL) 0.4 g/dL 0.4- 0.6 GAMMA GLOBULIN (SO-PB-STL) 2.0 g/dL H 0.8- 1.7 TOTAL PROTEIN (SO-PB-STL) 7.9 g/dL 6.1-8 .1 ALBUMIN(ELECTROPHORESIS 4.1 g/dL 3.8-4.8 BETA 2 GLOBULIN (SO-PB) 0.3 g/dL 0.2-0.5 INTERPRETATION (STL-PB) SEE NOTE ABNORMAL PROTEIN BAND 1 (SO-PB-STL) 1.2 g/dL H May 11, 2024 02:19 PM [facility] IGA (STL) PLASMA Specimen Type: PLASM A Comment: No hemolysis noted. Ordering Provider: TONY SIMMONS Report Released Date/Time: Jan 05, 2024 02:08 PM Reporting Lab: [address] [address] Performing Lab: [address] [address] IGA (STL) 117 mg/dL 63-484 May 11, 2024 02:19 PM [facility] IGM (STL) PLASMA Specimen Type: PLASM A Comment: No hemolysis noted. Ordering Provider: TONY SIMMONS Report Released Date/Time: Jan 05, 2024 02:08 PM Reporting Lab: [place] [address] [facility] [place] [address] Performing Lab: [place] [address] [facility] [place] [address] IGM (STL) 117 mg/dL 22-240 May 11, 2024 02:19 PM [facility] KAPPA/LAMBDA FREE LC PANEL (STL-PB) SERUM Spe cimen Type: SERUM No comment entered. Ordering Provider: TONY SIMMONS Report Released Date/Time: Jan 05, 2024 02:08 PM Reporting Lab: [place] [address] [facility] [address] Performing Lab: [place] [address] [facility] [place] [address] KAPPA FREE LC (STL) 92.4 mg/L H 2.4-20.7 LAMBDA FREE LC (STL) 25.6 mg/L 4.2-27.7 KAPPA/LAMBDA RATIO (STL) 3.61 H 0.22-1. 74 May 11, 2024 02:19 PM [facility] IGG (STL) PLASMA Specimen Type: PLASM A Comment: No hemolysis noted. Ordering Provider: TONY SIMMONS Report Released Date/Time: Jan 05, 2024 02:08 PM Reporting Lab: [facility] [address] [place] [address] Performing Lab: [address] [address] IGG (STL) 2162 mg/dL H 540-1822 May 11, 2024 02:19 PM [facility] MAGNESIUM PLASMA Specimen Type: PLASM A Comment: No hemolysis noted. Ordering Provider: TONY SIMMONS Report Released Date/Time: Jan 05, 2024 02:09 PM Reporting Lab: [facility] [address] [facility] [address] Performing Lab: [facility] [address] [place] [address] MAGNESIUM 1.9 mg/dL 1.6-2.6 May 11, 2024 02:19 PM [facility] PHOSPHOROUS PLASMA Specimen Type: PLASM A Comment: No hemolysis noted. Ordering Provider: TONY SIMMONS Report Released Date/Time: Jan 05, 2024 02:09 PM Reporting Lab: [address] [address] Performing Lab: [address] [address] PHOSPHOROUS 2.5 mg/dL 2.3-4.7 May 11, 2024 02:19 PM [facility] COMPREHENSIVE METABOLIC PANEL PLASMA Specimen Type: PLASMA Comment: No hemolysis noted. Ordering Provider: TONY SIMMONS Report Released Date/Time: Jan 05, 2024 02:08 PM Reporting Lab: [address] [address] Performing Lab: [address] [address] CREATININE 1.04 mg/dL 0.7-1.3 UREA NITROGEN 19.6 [...] 78.7 >60 May 11, 2024 02:19 PM [facility] CBC BLOOD Specimen Type: BLOOD No comment entered. Ordering Provider: TONY SIMMONS Report Released Date/Time: Jan 05, 2024 02:08 PM Reporting Lab: [address] [address] Performing Lab: [address] [address] WBC 4.5 10*3/uL 3.6-11.2 RBC 4.26 10*6/uL [...] 10*3/uL 2.10-8.00 Apr 23, 2024 11:26 AM [facility] GLUCOSE,BLOOD-poct (STL) BLOOD Specimen Type: BLOOD Comment: Test Performed by: [id number] Meter #: [id number] Ordering Provider: SUKHJINDER CHAHAL Report Released Date/Time: Apr 23, 2024 11:43 AM Reporting Lab: [address] [address] Performing Lab: [address] [address] GLUCOSE,BLOOD-poct (STL) 117 mg/dL H 72-99 Social History: Smoking Status (Most current) and Tobacco Use (All prior to encounter date) This section includes the most current, and the historical, smoking and tobacco- related health factors from the [place] facility where the Encounter took place. Current Smoking Status This section includes the most current smoking, or tobacco-related health factor, from the [place] facility where the Encounter took place. Date/Time Current Smoking Status Comment Facil ity Jan 20, 2023 03:49 PM VA-TOBACCO QUIT 15 YRS OR MORE [facility] Tobacco Use History This section includes a history of the smoking, or tobacco-related health factors, that were collected on or before the date of the Encounter. The data comes from the [place] facility where the Encounter took place. Date/Time Smoking Status/Tobacco Use Comment F acility Jan 20, 2023 03:49 PM VA-TOBACCO QUIT 15 YRS OR MORE [facility] Feb 06, 2021 04:28 PM VA-TOBACCO FORMER USER [facility] Feb 06, 2021 04:28 PM VA-TOBACCO QUIT 15 YRS OR MORE [facility] Radiology Reports: +/- 30 days of the [...] the Encounter. The data comes from all [place] treatment facilities. 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 Report: PATIENT NAME: ABRAHAM HAWK. CASE #: [id number], [id number]. PROCEDURE: PET/CT study from the vertex to [...] lytic osseous lesion is noted within the [id number]. Multilevel degenerative changes are noted throughout the [...] PARISH M.D., STAFF PHYSICIAN - DIAGNOSTIC IMAGING (Ice Cream Freezer Assistant) /PFT ROMANA PARISH Aster [facility] Encounter Notes: All associated encounter notes This section contains the clinical notes associated to the Encounter. Date/Time Encounter Note(s) Provider Source Apr 21, 2024 06:58 AM NONVA NOTE: LOCAL TITLE: COMMUNITY CARE-CARE COORDINATION PLAN NOTE 657 [address] STANDARD TITLE: NONVA NOTE DATE OF NOTE: APR 21, 2024@06:58 ENTRY DATE: APR 21, 2024@06:59:01 AUTHOR: HORACE CORNELIUS EXP COSIGNER: URGENCY: STATUS: COMPLETED COMMUNITY CARE-CARE COORDINATION PLAN NOTE 657 ST[address] Has ADDENDA Community Care Consult: mri Consult No: [phone] [facility] Referral #: pending DOA approval Chief Complaint: HCC Patient Admitted? No Level of Care Coordination Complex/Chronic Care Coordination was determined from: Chart Review Facility Community Care Office Contact Care Coordination Point of Contact: Horace Cornelius Services: Moderate Care Coordination Services Case Management, if appropriate Direct communications with interdisciplinary team Plan: Send to [facility]. Fax authorization to provider. Follow up with provider or for scheduling update. Follow up with after appointment. Retrieve records for visit. Review imaging report, document any significant finding. Send to scanner. Request disc of images. Assess if any other care needed. /eze ANTON RN REGISTERED NURSE Signed: 04/21/2024 06:59 04/26/2024 ADDENDUM STATUS: COMPLETED consult placed. /eze ANTON RN REGISTERED NURSE Signed: 04/26/2024 12:59 05/30/2024 ADDENDUM STATUS: COMPLETED Episode of Care Complete According to [facility] IMPRESSION: 1. Stable posttreatment changes and LR-TR nonviable lesion in hepatic segment 8. 2. Scattered LR4 and LR3 observations throughout the liver. Although not significantly changed in size when compared to prior, several observations that were previously characterized as LR3, now demonstrate a pseudocapsule and diffusion restriction and are thus categorized as LR4, detailed above. 3. Hepatic cirrhosis with splenomegaly. Dictated by: Carolina Eng David K ( ) The radiology attending physician has personally reviewed this study, and had reviewed and/or edited this written report and agrees with it. Electronically signed by: Petty Pablo M.D. Copy of report sent to [place]. [facility] faxed request to [facility] for mailing of images to [place]. /loly/ HORACE ANTON RN REGISTERED NURSE Signed: 05/30/2024 12:59 HORACE CORNELIUS [facility]
--- OUTSIDE RECORDS SUMMARY | 2024-10-08 17:08 | XMS_ITS ---
[place] MED NUTRITION INDIV SUBSEQ [facility] Encounter Summary Created on: October 08, 2024 ABRAHAM HAWK : 1955 Sex: Male Author Name [facility] [place] [facility] [place] [facility] [facility] [place] Address [address] [place] [address] Care Team Providers Care Research Manager Name Role Phone SUKHJINDER CHAHAL Primary Care [...] SUPPL EMENT Nov 25, 2021 PLAN G [id number] [phone] ELLEN HAWK VID PATIENT AARP MED SUPP MEDIGAP PLAN G MEDIC ARE SUPPL EMENT Nov 25, 2021 PLAN G [id number] [phone] ELLEN HAWK VID PATIENT MEDICARE (WNR) MEDICARE (M) PART B Sep 25, 2021 PART B [id number] ELLEN HAWK VID PATIENT MEDICARE (WNR) MEDICARE (M) PART A Aug 25, 2021 PART A [id number] [phone] ELLEN HAWKD PATIENT Selected Encounter This section includes the information on record at [place] for the Encounter. Date/Time Encounter Type Encounter Description Reason Provider Source Aug 10, 2024 11:31 AM MED NUTRITION INDIV SUBSEQ NUTRITION/DIETETI CS-INDIVIDUAL ICD-10-CM C80.1 Malignant (primary) neoplasm, unspecified SHAKILA SPENCER Abdiel Encounter Template Text not used by [place] Assessments - Encounter Diagnoses This section includes the primary and secondary diagnoses documented for the Encounter. Date/Time Primary/Secondary Diagnosis Diagnosis Name Provider Source Aug 10, 2024 01:31 PM PRIMARY Malignant (primary) neoplasm, unspecified SHAKILA SPENCER [facility] Aug 10, 2024 01:31 PM SECONDARY Dietary counseling and surveillance SHAKILA SPENCER [facility] Aug 10, 2024 01:31 PM SECONDARY Malignant neoplasm of head, face and neck SHAKILA SPENCER [facility] Plan of Treatment: Future Appointments (+ 6 months) and Future Tests (+/- 45 days) The Plan of Treatment section includes future care activities for the patient from all [place] treatmentfacilities. This section includes future appointments and future orders which are active, pending or scheduled. Future Appointments This section includes appointments that were scheduled to occur 6 months from the date of the Encounter, up to a maximum of 20 appointments. The data comes from all [place] treatment facilities. Appointment Date/Time Appointment Type Appointme nt Facility Name Aug 16, 2024 10:00 AM AMBULATORY - MEDICINE [facility] Aug 17, 2024 08:30 AM AMBULATORY - MEDICINE [facility] Aug 17, 2024 09:00 AM AMBULATORY - MEDICINE [facility] Aug 17, 2024 09:30 AM AMBULATORY - MEDICINE [facility] Aug 23, 2024 12:00 PM AMBULATORY - NONE [facility] Aug 31, 2024 02:00 PM AMBULATORY - MEDICINE [facility] Sep 07, 2024 11:00 AM AMBULATORY - MEDICINE [facility] Sep 07, 2024 01:00 PM AMBULATORY - MEDICINE [facility] Oct 15, 2024 03:00 PM AMBULATORY - SURGERY [facility] Oct 19, 2024 02:00 PM AMBULATORY - NONE [facility] Active, Pending, and Scheduled Orders This section includes a listing of several types of active, pending, and scheduled orders, including clinic medications orders, diagnostic test orders, procedure orders and consult orders; where the start date of the order is 45 days before the date of the Encounter or 45 days after the date of theEncounter. The data comes from all [facility] facilities. Test Date/Time Test Type Test Details Facility Name Jul 17, 2024 12:00 AM Laboratory - Blood Bank Order FRESH FROZEN PLASMA - LAB VBECS - NO SPECIMEN REQUIRED [facility] Jul 17, 2024 12:00 AM Laboratory - Blood Bank Order RED BLOOD CELLS - LAB VBECS - NO SPECIMEN REQUIRED [facility] Jul 17, 2024 06:13 PM Laboratory - Blood Bank Order TYPE & SCREEN - LAB BLOOD [facility] Jul 17, 2024 06:13 PM Laboratory - Blood Bank Order DIRECT ANTIGLOBULIN TEST - LAB BLOOD STAT [facility] Jul 18, 2024 12:00 AM Laboratory - Blood Bank Order PLATELETS - LAB VBECS - NO SPECIMEN REQUIRED [facility] Aug 10, 2024 12:00 AM Laboratory - Blood Bank Order RED BLOOD CELLS - LAB VBECS - NO SPECIMEN REQUIRED [facility] Aug 10, 2024 02:00 PM Laboratory - Blood Bank Order TYPE & SCREEN - LAB BLOOD [facility] Aug 10, 2024 05:43 PM Laboratory - Chemistry Order LIPASE GREEN LI/HEP BLD/PLAS PLASMA STAT I ONCE [facility] Aug 10, 2024 05:44 PM Laboratory - Microbiology Order BLOOD CULT (SET 2) B D BLD. BOTTLE (SET 2) BLOOD JOANN I NOW [facility] Aug 11, 2024 02:00 AM Laboratory - Chemistry Order CBC BLOOD [facility] Aug 14, 2024 02:00 AM Laboratory - Chemistry Order CBC BLOOD [facility] Aug 15, 2024 02:00 AM Laboratory - Chemistry Order CBC BLOOD [facility] Aug 16, 2024 12:00 AM Laboratory - Chemistry Order CBC BLOOD SP [facility] Aug 16, 2024 08:00 PM Laboratory - Chemistry Order CBC BLOOD LC [facility] Aug 17, 2024 08:00 PM Laboratory - Chemistry Order CBC BLOOD LC [facility] Lab Results: +/- 30 days of the encounter This section includes the Chemistry and Hematology Lab Results on record with [place] for the patient. Radiology Reports and Pathology Reports are provided separately, in subsequent sections. Lab Results This section contains the Chemistry/Hematology Results that were resulted 30 days before or 30 daysafter the date of the Encounter. Date/Time Source Result Type Result - Unit Interpretation Reference Range Specimen Type Comment Sep 07, 2024 12:39 PM [facility] COMPREHENSIVE METABOLIC PANEL PLASMA Specimen Type: PLASMA Comment: No hemolysis noted. Ordering Provider: TONY SIMMONS Report Released Date/Time: Aug 31, 2024 02:42 PM Reporting Lab: [address] [address] Performing Lab: [address] [address] CREATININE 0.87 mg/dL 0.7-1.3 UREA NITROGEN 24.5 [...] 94.0 >60 Sep 07, 2024 12:39 PM [facility] CBC BLOOD Specimen Type: BLOOD No comment entered. Ordering Provider: TONY SIMMONS Report Released Date/Time: Aug 31, 2024 02:42 PM Reporting Lab: [place] [id number] [facility] [place] [address] Performing Lab: [place] [address] [facility] [place] [address] WBC 5.1 10*3/uL 3.6-11.2 RBC 3.44 10*6/uL [...] 10*3/uL 2.10-8.00 Sep 07, 2024 12:39 PM [facility] ALPHA-FETOPROTEIN(STL-PB) SERUM Specimen Type : SERUM No comment entered. Ordering Provider: CRYSTAL MASSEY Report Released Date/Time: Sep 07, 2024 11:59 AM Reporting Lab: [place] [address] [place] [address] Performing Lab: [address] [address] ALPHA-FETOPROTEIN(STL-PB) 15.01 ng/mL H 1- 8.78 Aug 31, 2024 02:04 PM [facility] COMPREHENSIVE METABOLIC PANEL PLASMA Specimen Type: PLASMA Comment: No hemolysis noted. Ordering Provider: TONY SIMMONS Report Released Date/Time: Aug 27, 2024 12:35 PM Reporting Lab: [address] [address] Performing Lab: [address] [address] CREATININE 0.90 mg/dL 0.7-1.3 UREA NITROGEN 26.4 [...] 93.6 >60 Aug 31, 2024 02:04 PM [facility] CBC BLOOD Specimen Type: BLOOD No comment entered. Ordering Provider: TONY SIMMONS Report Released Date/Time: Aug 27, 2024 12:35 PM Reporting Lab: [address] [address] Performing Lab: [address] [address] WBC 4.7 10*3/uL 3.6-11.2 RBC 3.54 10*6/uL [...] 10*3/uL 2.10-8.00 Aug 17, 2024 03:34 PM [facility] TSH W/ REFLEX FT4 (STL) PLASMA Specimen Type: PLASMA No comment entered. Ordering Provider: TONY SIMMONS Report Released Date/Time: Aug 10, 2024 12:01 PM Reporting Lab: [address] [address] Performing Lab: [address] [address] TSH 4.570 u[IU]/mL 0.47-5 Aug 17, 2024 03:34 PM [facility] COMPREHENSIVE METABOLIC PANEL PLASMA Specimen Type: PLASMA Comment: No hemolysis noted. Ordering Provider: TONY SIMMONS Report Released Date/Time: Aug 10, 2024 12:01 PM Reporting Lab: [address] [address] Performing Lab: [address] [address] CREATININE 0.85 mg/dL 0.7-1.3 UREA NITROGEN 11.5 [...] 95.2 >60 Aug 17, 2024 03:34 PM [facility] CBC BLOOD Specimen Type: BLOOD Comment: No Clots Ordering Provider: TONY SIMMONS Report Released Date/Time: Aug 10, 2024 12:01 PM Reporting Lab: [address] [address] Performing Lab: [address] [address] WBC 5.0 10*3/uL 3.6-11.2 RBC 2.83 10*6/uL [...] 4.9 1.0-7.0 Aug 15, 2024 07:20 AM [facility] CBC BLOOD Specimen Type: BLOOD Comment: No clots detected in specimen. Ordering Provider: CASH CLOUD Report Released Date/Time: Aug 12, 2024 01:47 PM Reporting Lab: [address] [address] Performing Lab: [place] [address] [place] [address] WBC 4.9 10*3/uL 3.6-11.2 RBC 2.93 10*6/uL [...] 2.10-8.00 Aug 15, 2024 04:54 AM [facility] GLUCOSE,BLOOD-poct (STL) BLOOD Specimen Type: BLOOD Comment: Test Performed by: [id number] Meter #: [id number] Ordering Provider: DEIRDRE WILD Report Released Date/Time: Aug 15, 2024 05:21 AM Reporting Lab: [address] [address] Performing Lab: [address] [address] GLUCOSE,BLOOD-poct (STL) 112 mg/dL H 72-99 Aug 14, 2024 08:30 PM [facility] CRP PLASMA Specimen Type: PLASM A No comment entered. Ordering Provider: CASH CLOUD Report Released Date/Time: Aug 12, 2024 10:14 AM Reporting Lab: [place] [id number] [facility] [address] Performing Lab: [facility] [address] [facility] [address] CRP 0.7 mg/dL H 0-0.5 Aug 14, 2024 08:30 PM [facility] CBC BLOOD Specimen Type: BLOOD No comment entered. Ordering Provider: GILSON OG Report Released Date/Time: Aug 10, 2024 04:01 PM Reporting Lab: [facility] [address] [facility] [address] Performing Lab: [place] [address] [address] [facility] [address] WBC 4.6 10*3/uL 3.6-11.2 RBC 2.83 10*6/uL [...] 2.10-8.00 Aug 14, 2024 07:54 PM [facility] GLUCOSE,BLOOD-poct (STL) BLOOD Specimen Type: BLOOD Comment: Test Performed by: [id number] Meter #: [id number] Ordering Provider: DEIRDRE WILD Report Released Date/Time: Aug 14, 2024 08:15 PM Reporting Lab: [address] [address] Performing Lab: [address] [address] GLUCOSE,BLOOD-poct (STL) 112 mg/dL H 72-99 Aug 14, 2024 04:10 PM [facility] GLUCOSE,BLOOD-poct (STL) BLOOD Specimen Type: BLOOD Comment: Test Performed by: [id number] Meter #: [id number] Ordering Provider: DEIRDRE WILD Report Released Date/Time: Aug 14, 2024 04:43 PM Reporting Lab: [address] [address] Performing Lab: [address] [address] GLUCOSE,BLOOD-poct (STL) 115 mg/dL H 72-99 Aug 14, 2024 02:05 PM [facility] COMPREHENSIVE METABOLIC PANEL PLASMA Specimen Type: PLASMA Comment: No hemolysis noted. Ordering Provider: GILSON OG Report Released Date/Time: Aug 14, 2024 06:56 AM Reporting Lab: [address] [address] Performing Lab: [address] [address] CREATININE 0.75 mg/dL 0.7-1.3 UREA NITROGEN 9.3 [...] 98.9 >60 Aug 14, 2024 02:05 PM [facility] CBC BLOOD Specimen Type: BLOOD Comment: No platelet clots or clumping detected. Ordering Provider: GILSON OG Report Released Date/Time: Aug 10, 2024 04:01 PM Reporting Lab: [facility] [address] [place] [address] Performing Lab: [facility] [address] [place] [address] WBC 4.6 10*3/uL 3.6-11.2 RBC 3.06 10*6/uL [...] 2.10-8.00 Aug 14, 2024 10:12 AM [facility] GLUCOSE,BLOOD-poct (STL) BLOOD Specimen Type: BLOOD Comment: Test Performed by: [id number] Meter #: [id number] Ordering Provider: DEIRDRE WILD Report Released Date/Time: Aug 14, 2024 10:13 AM Reporting Lab: [place] [address] [facility] [place] [address] Performing Lab: [address] [address] GLUCOSE,BLOOD-poct ([facility]) 112 mg/dL H 72-99 Aug 14, 2024 09:20 AM [facility] PT/INR NEW ([facility]) PLASMA Specimen Type: PLAS MA No comment entered. Ordering Provider: GILSON OG Report Released Date/Time: Aug 14, 2024 09:06 AM Reporting Lab: [place] [address] [facility] [place] [address] Performing Lab: [place] [address] [facility] [place] [address] PROTIME 13.6 s H 9.4-12.5 INR VALUE 1.2 {INR} Aug 14, 2024 06:51 AM [facility] CBC BLOOD Specimen Type: BLOOD No comment entered. Ordering Provider: CASH CLOUD Report Released Date/Time: Aug 12, 2024 01:47 PM Reporting Lab: [place] [address] [facility] [place] [address] Performing Lab: [place] [address] [facility] [place] [address] WBC 3.8 10*3/uL 3.6-11.2 RBC 2.56 10*6/uL [...] 2.10-8.00 Aug 14, 2024 06:03 AM [facility] GLUCOSE,BLOOD-poct (STL) BLOOD Specimen Type: BLOOD Comment: Test Performed by: [id number] Meter #: [id number] Ordering Provider: DEIRDRE WILD Report Released Date/Time: Aug 14, 2024 06:07 AM Reporting Lab: [address] [address] Performing Lab: [address] [address] GLUCOSE,BLOOD-poct (STL) 114 mg/dL H 72-99 Aug 13, 2024 09:11 PM [facility] GLUCOSE,BLOOD-poct (STL) BLOOD Specimen Type: BLOOD Comment: Test Performed by: [id number] Meter #: [id number] Ordering Provider: DEIRDRE WILD Report Released Date/Time: Aug 13, 2024 09:40 PM Reporting Lab: [address] [address] Performing Lab: [address] [address] GLUCOSE,BLOOD-poct (STL) 160 mg/dL H 72-99 Aug 13, 2024 07:10 PM [facility] COMPREHENSIVE METABOLIC PANEL PLASMA Specimen Type: PLASMA Comment: No hemolysis noted. Ordering Provider: GILSON OG Report Released Date/Time: Aug 14, 2024 07:03 AM Reporting Lab: [facility] [address] [place] [address] Performing Lab: [address] [address] CREATININE 0.75 mg/dL 0.7-1.3 UREA NITROGEN 10.3 [...] 98.9 >60 Aug 13, 2024 07:10 PM [facility] CRP PLASMA Specimen Type: PLASM A No comment entered. Ordering Provider: CASH CLOUD Report Released Date/Time: Aug 12, 2024 10:14 AM Reporting Lab: [facility] [address] [place] [address] Performing Lab: [address] [address] CRP 0.7 mg/dL H 0-0.5 Aug 13, 2024 07:10 PM [facility] CBC BLOOD Specimen Type: BLOOD No comment entered. Ordering Provider: GILSON OG Report Released Date/Time: Aug 10, 2024 04:01 PM Reporting Lab: [place] [address] [place] [address] Performing Lab: [address] [address] WBC 5.3 10*3/uL 3.6-11.2 RBC 2.67 10*6/uL [...] 2.10-8.00 Aug 13, 2024 04:35 PM [facility] GLUCOSE,BLOOD-poct (STL) BLOOD Specimen Type : BLOOD Comment: Test Performed by: [id number] Meter #: [id number] Ordering Provider: DEIRDRE WILD Report Released Date/Time: Aug 13, 2024 05:18 PM Reporting Lab: [facility] [address] [facility] [address] Performing Lab: [facility] [address] [place] [address] GLUCOSE,BLOOD-poct (STL) 113 mg/dL H 72-99 Aug 13, 2024 02:36 PM [facility] CBC BLOOD Specimen Type: BLOOD No comment entered. Ordering Provider: GILSON OG Report Released Date/Time: Aug 10, 2024 04:01 PM Reporting Lab: [address] [address] Performing Lab: [address] [address] WBC 5.8 10*3/uL 3.6-11.2 RBC 2.77 10*6/uL [...] 2.10-8.00 Aug 13, 2024 11:37 AM [facility] GLUCOSE,BLOOD-poct (STL) BLOOD Specimen Type: BLOOD Comment: Test Performed by: [id number] Meter #: [id number] Ordering Provider: DEIRDRE WILD Report Released Date/Time: Aug 13, 2024 11:38 AM Reporting Lab: [address] [address] Performing Lab: [address] [address] GLUCOSE,BLOOD-poct (STL) 131 mg/dL H 72-99 Aug 13, 2024 08:06 AM [facility] CBC BLOOD Specimen Type: BLOOD Comment: no clot Ordering Provider: CASH CLOUD Report Released Date/Time: Aug 12, 2024 01:47 PM Reporting Lab: [address] [address] Performing Lab: [address] [address] WBC 3.0 10*3/uL L 3.6-11.2 RBC 2.61 [...] 2.10-8.00 Aug 13, 2024 04:45 AM [facility] GLUCOSE,BLOOD-poct (STL) BLOOD Specimen Type: BLOOD Comment: Test Performed by: [id number] Meter #: [id number] Ordering Provider: DEIRDRE WILD Report Released Date/Time: Aug 13, 2024 06:18 AM Reporting Lab: [address] [address] Performing Lab: [address] [place] [address] GLUCOSE,BLOOD-poct (STL) 139 mg/dL H 72-99 Aug 12, 2024 10:10 PM [facility] GLUCOSE,BLOOD-poct (STL) BLOOD Specimen Type: BLOOD Comment: Test Performed by: [id number] Meter #: [id number] Ordering Provider: DEIRDRE WILD Report Released Date/Time: Aug 12, 2024 10:50 PM Reporting Lab: [address] [address] Performing Lab: [address] [address] GLUCOSE,BLOOD-poct (STL) 105 mg/dL H 72-99 Aug 12, 2024 08:48 PM [facility] CBC BLOOD Specimen Type: BLOOD Comment: SEE PREVIOUS DIFFERENTIAL ON 08/12/24 @ 1807 Ordering Provider: GILSON OG Report Released Date/Time: Aug 10, 2024 04:01 PM Reporting Lab: [address] [address] Performing Lab: [address] [address] WBC 5.0 10*3/uL 3.6-11.2 RBC 2.78 10*6/uL [...] 6.5 1.0-7.0 Aug 12, 2024 08:48 PM [facility] CRP PLASMA Specimen Type: PLASM A No comment entered. Ordering Provider: CASH CLOUD Report Released Date/Time: Aug 12, 2024 10:14 AM Reporting Lab: [place] [address] Performing Lab: [place] [phone] CRP 0.6 mg/dL H 0-0.5 Aug 12, 2024 04:51 PM [facility] GLUCOSE,BLOOD-poct (STL) BLOOD Specimen Type: BLOOD Comment: Test Performed by: [id number] Meter #: [id number] Ordering Provider: DEIRDRE WILD Report Released Date/Time: Aug 12, 2024 05:07 PM Reporting Lab: [address] [address] Performing Lab: [place] [phone] GLUCOSE,BLOOD-poct (STL) 135 mg/dL H 72-99 Aug 12, 2024 02:33 PM [facility] CBC BLOOD Specimen Type: BLOOD No comment entered. Ordering Provider: GILSON OG Report Released Date/Time: Aug 10, 2024 04:01 PM Reporting Lab: [address] [address] Performing Lab: [address] [address] WBC 4.0 10*3/uL 3.6-11.2 RBC 2.56 10*6/uL [...] 2.10-8.00 Aug 12, 2024 11:51 AM [facility] GLUCOSE,BLOOD-poct (STL) BLOOD Specimen Type: BLOOD Comment: Test Performed by: [id number] Meter #: [id number] Ordering Provider: DEIRDRE WILD Report Released Date/Time: Aug 12, 2024 12:26 PM Reporting Lab: [address] [address] Performing Lab: [address] [address] GLUCOSE,BLOOD-poct (STL) 139 mg/dL H 72-99 Aug 12, 2024 07:35 AM [facility] CBC BLOOD Specimen Type: BLOOD Comment: prev diff 08/11/24. Ordering Provider: GILSON OG Report Released Date/Time: Aug 10, 2024 04:01 PM Reporting Lab: [address] [address] Performing Lab: [address] [address] WBC 3.0 10*3/uL L 3.6-11.2 RBC 2.54 [...] 20 Aug 12, 2024 05:49 AM [facility] GLUCOSE,BLOOD-poct (STL) BLOOD Specimen Type: BLOOD Comment: Test Performed by: [id number] Meter #: [id number] Ordering Provider: DEIRDRE WILD Report Released Date/Time: Aug 12, 2024 05:50 AM Reporting Lab: [address] [address] Performing Lab: [address] [address] GLUCOSE,BLOOD-poct (STL) 112 mg/dL H 72-99 Aug 12, 2024 01:45 AM [facility] CBC BLOOD Specimen Type: BLOOD Comment: SEE PREVIOUS DIFFERENTIAL ON 08/12/24 @ 0239 [facility] Ordering Provider: GILSON OG Report Released Date/Time: Aug 10, 2024 04:01 PM Reporting Lab: [address] [address] Performing Lab: [address] [address] WBC 2.6 10*3/uL L 3.6-11.2 RBC 2.42 [...] 6.4 1.0-7.0 Aug 11, 2024 09:25 PM [facility] CBC BLOOD Specimen Type: BLOOD No comment entered. Ordering Provider: GILSON OG Report Released Date/Time: Aug 10, 2024 04:01 PM Reporting Lab: [address] [address] Performing Lab: [address] [address] WBC 3.6 10*3/uL 3.6-11.2 RBC 2.54 10*6/uL [...] 2.10-8.00 Aug 11, 2024 09:17 PM [facility] GLUCOSE,BLOOD-poct (STL) BLOOD Specimen Type: BLOOD Comment: Test Performed by: [id number] Meter #: [id number] Ordering Provider: DEIRDRE WILD Report Released Date/Time: Aug 11, 2024 09:21 PM Reporting Lab: [address] [address] Performing Lab: [address] [address] GLUCOSE,BLOOD-poct (STL) 167 mg/dL H 72-99 Aug 11, 2024 04:42 PM [facility] CBC BLOOD Specimen Type: BLOOD No comment entered. Ordering Provider: YVONNE HARRISON Report Released Date/Time: Aug 11, 2024 04:41 PM Reporting Lab: [address] [address] Performing Lab: [address] [address] WBC 4.0 10*3/uL 3.6-11.2 RBC 2.74 10*6/uL [...] 2.10-8.00 Aug 11, 2024 04:30 PM [facility] GLUCOSE,BLOOD-poct (STL) BLOOD Specimen Type: BLOOD Comment: Test Performed by: [id number] Meter #: [id number] Ordering Provider: DEIRDRE WILD Report Released Date/Time: Aug 11, 2024 06:06 PM Reporting Lab: [address] [address] Performing Lab: [address] [address] GLUCOSE,BLOOD-poct (STL) 95 mg/dL 72-99 Aug 11, 2024 11:08 AM [facility] GLUCOSE,BLOOD-poct (STL) BLOOD Specimen Type : BLOOD Comment: Test Performed by: [id number] Meter #: [id number] Ordering Provider: DEIRDRE WILD Report Released Date/Time: Aug 11, 2024 11:10 AM Reporting Lab: [address] [address] Performing Lab: [address] [address] GLUCOSE,BLOOD-poct (STL) 117 mg/dL H 72-99 Aug 11, 2024 06:00 AM [facility] HEPATIC FUNTION PANEL (STL) PLASMA Specimen Ty pe: PLASMA No comment entered. Ordering Provider: GILSON OG Report Released Date/Time: Aug 10, 2024 04:02 PM Reporting Lab: [facility] [address] [address] Performing Lab: [address] [address] PROTEIN 5.4 g/dL L 6-8.6 ALBUMIN 2.6 g/dL L 3.4-5 TOTAL BILIRUBIN 0.8 mg/dL 0.2-1.2 ALKALINE PHOSPHATASE 72 U/L 40-150 AST/SGOT 28 U/L 5-34 ALT/SGPT 10 U/L 8-40 CONJ. BILIRUBIN 0.4 mg/dL 0-0.5 Aug 11, 2024 06:00 AM [facility] IRON/TIBC PROFILE SERUM Specimen Type: SERUM No comment entered. Ordering Provider: GILSON OG Report Released Date/Time: Aug 10, 2024 04:02 PM Reporting Lab: [address] [address] Performing Lab: [address] [address] TIBC 263 ug/dL 250-450 TRANSFERRIN 210 mg/dL 163-344 IRON SATURATION 8 L 20-50 IRON 21 ug/dL L 65-175 Aug 11, 2024 06:00 AM [facility] PT/INR NEW (STL-MA) PLASMA Specimen Type: PLAS MA No comment entered. Ordering Provider: GILSON OG Report Released Date/Time: Aug 10, 2024 06:20 PM Reporting Lab: [address] [phone] Performing Lab: [address] [phone] PROTIME 15.5 s H 9.4-12.5 INR VALUE 1.4 {INR} Aug 11, 2024 06:00 AM [facility] APTT PLASMA Specimen Type: PLASM A No comment entered. Ordering Provider: GILSON OG Report Released Date/Time: Aug 10, 2024 06:20 PM Reporting Lab: [address] [phone] Performing Lab: [address] [phone] APTT 25.5 s L 26.7-39.9 Aug 11, 2024 06:00 AM [facility] CBC BLOOD Specimen Type: BLOOD No comment entered. Ordering Provider: GILSON OG Report Released Date/Time: Aug 10, 2024 04:01 PM Reporting Lab: [address] [phone] Performing Lab: [address] [phone] WBC 2.4 10*3/uL L 3.6-11.2 RBC 2.42 [...] 2.10-8.00 Aug 10, 2024 09:00 PM [facility] BASIC METABOLIC PANEL PLASMA Specimen Type: PL ASMA Comment: No hemolysis noted. Ordering Provider: GILSON OG Report Released Date/Time: Aug 10, 2024 04:01 PM Reporting Lab: [address] [phone] Performing Lab: [address] [id number] CREATININE 0.84 mg/dL 0.7-1.3 UREA NITROGEN 16.8 mg/dL 9.0-25.0 GLUCOSE 104 mg/dL H 72-99 SODIUM 133 meq/L L 136-145 POTASSIUM 3.5 meq/L 3.5-5 CHLORIDE 103 meq/L 98-107 CARBON DIOXIDE 23 meq/L 22-31 CALCIUM 8.4 mg/dL 8.4-10.4 EGFR (CKD-EPI 2020) 95.6 >60 Aug 10, 2024 09:00 PM [facility] CBC BLOOD Specimen Type: BLOOD No comment entered. Ordering Provider: GILSON OG Report Released Date/Time: Aug 10, 2024 04:01 PM Reporting Lab: [address] [address] Performing Lab: [address] [address] WBC 4.3 10*3/uL 3.6-11.2 RBC 2.22 10*6/uL [...] 10*3/uL 2.10-8.00 Aug 10, 2024 06:30 PM [facility] MRSA SURVL NARES DNA NARES Specimen Type: [...] Aug 10, 2024 04:01 PM Reporting Lab: [address] [address] Performing Lab: [address] [address] MRSA SURVL NARES DNA Negative Negative Aug 10, 2024 06:02 PM [facility] GLUCOSE,BLOOD-poct (STL) BLOOD Specimen Type: BLOOD Comment: Test Performed by: [id number] Meter #: [id number] Ordering Provider: YASIR SANZ MD Report Released Date/Time: Aug 10, 2024 06:04 PM Reporting Lab: [address] [address] Performing Lab: [address] [address] GLUCOSE,BLOOD-poct (STL) 94 mg/dL 72-99 Aug 10, 2024 02:12 PM [facility] PT/INR NEW (STL-MA) PLASMA Specimen Type: PLAS MA No comment entered. Ordering Provider: YASIR SANZ MD Report Released Date/Time: Aug 10, 2024 02:00 PM Reporting Lab: [facility] [address] [place] [address] Performing Lab: [address] [address] PROTIME 13.8 s H 9.4-12.5 INR VALUE 1.2 {INR} Aug 10, 2024 02:12 PM [facility] APTT PLASMA Specimen Type: PLASM A No comment entered. Ordering Provider: YASIR SANZ MD Report Released Date/Time: Aug 10, 2024 02:00 PM Reporting Lab: [address] [address] Performing Lab: [address] [address] APTT 20.1 s L 26.7-39.9 Aug 10, 2024 11:30 AM [facility] TSH W/ REFLEX FT4 (STL) PLASMA Specimen Type: PLASMA No comment entered. Ordering Provider: TONY SIMMONS Report Released Date/Time: Aug 02, 2024 12:33 PM Reporting Lab: [address] [address] Performing Lab: [address] [address] TSH 3.991 u[IU]/mL 0.47-5 Aug 10, 2024 11:30 AM [facility] COMPREHENSIVE METABOLIC PANEL PLASMA Specimen Type: PLASMA Comment: No hemolysis noted. Ordering Provider: TONY SIMMONS Report Released Date/Time: Aug 02, 2024 12:33 PM Reporting Lab: [address] [address] Performing Lab: [address] [address] CREATININE 0.82 mg/dL 0.7-1.3 UREA NITROGEN 21.7 [...] 96.3 >60 Aug 10, 2024 11:30 AM [facility] CBC BLOOD Specimen Type: BLOOD No comment entered. Ordering Provider: TONY SIMMONS Report Released Date/Time: Aug 02, 2024 12:33 PM Reporting Lab: [facility] [address] [facility] [address] Performing Lab: [facility] [address] [address] WBC 7.4 10*3/uL 3.6-11.2 RBC 2.81 10*6/uL [...] 0.00-0. 20 Aug 02, 2024 11:53 AM [facility] PROTEIN ELECTROPHORESIS BLOOD SERUM Specimen Type: SERUM Comment: Reference Range: None Detected NOTE: THIS RESULT IS FLAGGED ABNORMAL Evaluation reveals a restricted band (M-spike) migrating in the gamma globulin region. If not already requested, Immunofixation should be considered. Test Performed by [facility], [employer] [facility], [address] [place] [address] Tristin Iyer M.D., Ph.D., Director of Laboratories , CLIA [id number] PREVIOUS SUGAR: IgG [place] Ordering Provider: TONY SIMMONS Report Released Date/Time: Jul 13, 2024 01:49 PM Reporting Lab: [address] [address] Performing Lab: [facility] [address] [facility] ALPHA-1 GLOBULIN(SO-PB-STL) 0.4 g/dL H 0.2 [...] H Aug 02, 2024 11:53 AM [facility] IGA (STL) PLASMA Specimen Type: PLASM A Comment: No hemolysis noted. Ordering Provider: TONY SIMMONS Report Released Date/Time: Jul 13, 2024 01:49 PM Reporting Lab: [facility] [address] [facility] [address] Performing Lab: [facility] [address] [place] [address] IGA (STL) 113 mg/dL 63-484 Aug 02, 2024 11:53 AM [facility] IGM (STL) PLASMA Specimen Type: PLASM A Comment: No hemolysis noted. Ordering Provider: TONY SIMMONS Report Released Date/Time: Jul 13, 2024 01:49 PM Reporting Lab: [facility] [address] [facility] [address] Performing Lab: [place] [address] [facility] [place] [address] IGM (STL) 104 mg/dL 22-240 Aug 02, 2024 11:53 AM [facility] IGG (STL) PLASMA Specimen Type: PLASM A Comment: No hemolysis noted. Ordering Provider: TONY SIMMONS Report Released Date/Time: Jul 13, 2024 01:49 PM Reporting Lab: [facility] [address] [facility] [address] Performing Lab: [facility] [address] [place] [address] IGG (STL) 1898 mg/dL H 540-1822 Aug 02, 2024 11:53 AM [facility] TSH W/ REFLEX FT4 (STL) PLASMA Specimen Type: PLASMA No comment entered. Ordering Provider: TONY SIMMONS Report Released Date/Time: Jul 13, 2024 01:49 PM Reporting Lab: [facility] [address] [place] [address] Performing Lab: [facility] [address] [facility] [address] TSH 2.182 u[IU]/mL 0.47-5 Aug 02, 2024 11:53 AM [facility] KAPPA/LAMBDA FREE LC PANEL (STL-PB) SERUM Spe cimen Type: SERUM No comment entered. Ordering Provider: TONY SIMMONS Report Released Date/Time: Jul 13, 2024 01:49 PM Reporting Lab: [address] [address] Performing Lab: [address] [address] KAPPA FREE LC (STL) 102.7 mg/L H 2.4-20.7 LAMBDA FREE LC (STL) 32.2 mg/L H 4.2-27.7 KAPPA/LAMBDA RATIO (STL) 3.19 H 0.22-1. 74 Aug 02, 2024 11:53 AM [facility] COMPREHENSIVE METABOLIC PANEL PLASMA Specimen Type: PLASMA Comment: No hemolysis noted. Ordering Provider: TONY SIMMONS Report Released Date/Time: Jul 13, 2024 01:49 PM Reporting Lab: [address] [address] Performing Lab: [address] [address] CREATININE 0.82 mg/dL 0.7-1.3 UREA NITROGEN 12.2 [...] 96.3 >60 Aug 02, 2024 11:53 AM [facility] CBC BLOOD Specimen Type: BLOOD Comment: No Clots in specimen Ordering Provider: TONY SIMMONS Report Released Date/Time: Jul 13, 2024 01:49 PM Reporting Lab: [address] [address] Performing Lab: [address] [address] WBC 2.2 10*3/uL L 3.6-11.2 RBC 3.44 [...] 2.10-8.00 Aug 01, 2024 10:10 AM [facility] GLUCOSE,BLOOD-poct (STL) BLOOD Specimen Type: BLOOD Comment: Test Performed by: [id number] Meter #: [id number] Ordering Provider: SUKHJINDER CHAHAL Report Released Date/Time: Aug 01, 2024 10:17 AM Reporting Lab: [address] [address] Performing Lab: [address] [address] GLUCOSE,BLOOD-poct (L) 101 mg/dL H 72-99 Jul 27, 2024 01:54 PM [facility] TROPONIN I PLASMA Specimen Type: PLASM A Comment: No hemolysis noted. Ordering Provider: ELIZABETH COATES Report Released Date/Time: Jul 27, 2024 03:39 PM Reporting Lab: [address] [address] Performing Lab: [address] [address] TROPONIN I 0.011 ng/mL 0-0.033 Jul 27, 2024 01:54 PM [facility] BRAIN NATRIURETIC PEPTIDE PLASMA Specimen Type : PLASMA No comment entered. Ordering Provider: ELIZABETH COATES Report Released Date/Time: Jul 27, 2024 03:39 PM Reporting Lab: [address] [address] Performing Lab: [address] [address] BRAIN NATRIURETIC PEPTIDE 257.2 pg/mL H 0- 100 Jul 27, 2024 01:54 PM [facility] COMPREHENSIVE METABOLIC PANEL PLASMA Specimen Type: PLASMA Comment: No hemolysis noted. Ordering Provider: ELIZABETH COATES Report Released Date/Time: Jul 27, 2024 03:39 PM Reporting Lab: [address] [address] Performing Lab: [address] [address] CREATININE 0.70 mg/dL 0.7-1.3 UREA NITROGEN 7.4 [...] 5-34 ALT/SGPT 34 U/L 8-40 EGFR (CKD-EPI 2021) 101.0 >60 Jul 27, 2024 01:54 PM [facility] CBC BLOOD Specimen Type: BLOOD No comment entered. Ordering Provider: ELIZABETH COATES Report Released Date/Time: Jul 27, 2024 03:39 PM Reporting Lab: [facility] [address] [place] [address] Performing Lab: [address] [address] WBC 3.2 10*3/uL L 3.6-11.2 RBC 3.12 [...] 2.10-8.00 Jul 21, 2024 02:00 PM [facility] FOLATE (STL-MA) SERUM Specimen Type: SERUM No comment entered. Ordering Provider: JORJE DENSON Report Released Date/Time: Jul 21, 2024 12:54 PM Reporting Lab: [address] [address] Performing Lab: [address] [address] FOLATE (STL-MA) 9.1 ng/mL 7-20 Jul 21, 2024 02:00 PM [facility] IRON/TIBC PROFILE SERUM Specimen Type: SERUM No comment entered. Ordering Provider: JORJE DENSON Report Released Date/Time: Jul 21, 2024 12:54 PM Reporting Lab: [address] [address] Performing Lab: [address] [address] TIBC 243 ug/dL L 250-450 TRANSFERRIN 194 mg/dL 163-344 IRON SATURATION 20 20-50 IRON 49 ug/dL L 65-175 Jul 21, 2024 02:00 PM [facility] B12 SERUM Specimen Type: SERUM No comment entered. Ordering Provider: JORJE DENSON Report Released Date/Time: Jul 21, 2024 12:54 PM Reporting Lab: [address] [address] Performing Lab: [address] [address] B12 1584 pg/mL H 213-816 Jul 21, 2024 02:00 PM [facility] CBC BLOOD Specimen Type: BLOOD Comment: Manual differential performed 07/20/2024 No clots Ordering Provider: JORJE DENSON Report Released Date/Time: Jul 21, 2024 12:54 PM Reporting Lab: [address] [address] Performing Lab: [address] [address] WBC 5.6 10*3/uL 3.6-11.2 RBC 2.87 10*6/uL [...] 1.0-7.0 Jul 20, 2024 08:55 PM [facility] PT/INR NEW (STL-MA) PLASMA Specimen Type: PLAS MA No comment entered. Ordering Provider: AURA ZACARIAS Report Released Date/Time: Jul 18, 2024 01:30 PM Reporting Lab: [address] [address] Performing Lab: [address] [address] PROTIME 12.8 s H 9.4-12.5 INR VALUE 1.1 {INR} Jul 20, 2024 08:55 PM [facility] BASIC METABOLIC PANEL PLASMA Specimen Type: PL ASMA Comment: No hemolysis noted. Ordering Provider: AURA ZACARIAS Report Released Date/Time: Jul 18, 2024 01:30 PM Reporting Lab: [address] [address] Performing Lab: [address] [address] CREATININE 0.74 mg/dL 0.7-1.3 UREA NITROGEN 15.1 mg/dL 9.0-25.0 GLUCOSE 121 mg/dL H 72-99 SODIUM 130 meq/L L 136-145 POTASSIUM 3.7 meq/L 3.5-5 CHLORIDE 100 meq/L 98-107 CARBON DIOXIDE 20 meq/L L 22-31 CALCIUM 8.5 mg/dL 8.4-10.4 EGFR (CKD-EPI 2020) 99.3 >60 Jul 20, 2024 08:55 PM [facility] CBC BLOOD Specimen Type: BLOOD No comment entered. Ordering Provider: AURA ZACARIAS Report Released Date/Time: Jul 18, 2024 01:30 PM Reporting Lab: [place] [address] [facility] [address] Performing Lab: [address] [address] WBC 5.1 10*3/uL 3.6-11.2 RBC 2.90 10*6/uL [...] 10*3/uL 2.10-8.00 Jul 20, 2024 01:13 PM [facility] CBC BLOOD Specimen Type: BLOOD No comment entered. Ordering Provider: AURA ZACARIAS Report Released Date/Time: Jul 18, 2024 01:30 PM Reporting Lab: [place] [address] [place] [address] Performing Lab: [address] [address] WBC 5.6 10*3/uL 3.6-11.2 RBC 3.11 10*6/uL [...] 2.10-8.00 Jul 19, 2024 06:42 AM [facility] PT/INR NEW (STL-MA) PLASMA Specimen Type: PLAS MA No comment entered. Ordering Provider: AURA ZACARIAS Report Released Date/Time: Jul 18, 2024 01:30 PM Reporting Lab: [address] [address] Performing Lab: [address] [address] PROTIME 16.4 s H 9.4-12.5 INR VALUE 1.5 {INR} Jul 19, 2024 06:42 AM [facility] BASIC METABOLIC PANEL PLASMA Specimen Type: PL ASMA Comment: No hemolysis noted. Ordering Provider: AURA ZACARIAS Report Released Date/Time: Jul 18, 2024 01:30 PM Reporting Lab: [address] [address] Performing Lab: [address] [address] CREATININE 0.94 mg/dL 0.7-1.3 UREA NITROGEN 23.8 mg/dL 9.0-25.0 GLUCOSE 87 mg/dL 72-99 SODIUM 129 meq/L L 136-145 POTASSIUM 3.4 meq/L L 3.5-5 CHLORIDE 102 meq/L 98-107 CARBON DIOXIDE 20 meq/L L 22-31 CALCIUM 8.1 mg/dL L 8.4-10.4 EGFR (CKD-EPI 2020) 88.9 >60 Jul 19, 2024 06:42 AM [facility] CBC BLOOD Specimen Type: BLOOD No comment entered. Ordering Provider: AURA ZACARIAS Report Released Date/Time: Jul 18, 2024 01:30 PM Reporting Lab: [address] [address] Performing Lab: [address] [address] WBC 5.1 10*3/uL 3.6-11.2 RBC 2.45 10*6/uL [...] H 1.0-7.0 Jul 18, 2024 08:51 PM [facility] CBC BLOOD Specimen Type: BLOOD No comment entered. Ordering Provider: AURA ZACARIAS Report Released Date/Time: Jul 18, 2024 01:30 PM Reporting Lab: [address] [address] Performing Lab: [address] [address] WBC 6.2 10*3/uL 3.6-11.2 RBC 2.44 10*6/uL [...] 10*3/uL 2.10-8.00 Jul 18, 2024 04:19 PM [facility] CBC BLOOD Specimen Type: BLOOD No comment entered. Ordering Provider: AURA ZACARIAS Report Released Date/Time: Jul 18, 2024 01:30 PM Reporting Lab: [facility] [address] [address] Performing Lab: [address] [address] WBC 6.1 10*3/uL 3.6-11.2 RBC 2.57 10*6/uL [...] 2.10-8.00 Jul 18, 2024 06:32 AM [facility] LACTIC ACID (STL-PB) PLASMA Specimen Type: NEIL SMA No comment entered. Ordering Provider: CAMDEN PATTON Report Released Date/Time: Jul 17, 2024 07:38 PM Reporting Lab: [place] [phone] Performing Lab: [address] [address] LACTIC ACID (STL-PB) 1.3 mmol/L 0.5-2.0 Jul 18, 2024 06:32 AM [facility] PT/INR NEW (STL-MA) PLASMA Specimen Type: PLAS MA No comment entered. Ordering Provider: CAMDEN PATTON Report Released Date/Time: Jul 17, 2024 07:38 PM Reporting Lab: [address] [address] Performing Lab: [address] [place] [address] PROTIME 19.1 s H 9.4-12.5 INR VALUE 1.7 {INR} Jul 18, 2024 06:32 AM [facility] CBC BLOOD Specimen Type: BLOOD Comment: HGB Called to : Dr. Posadas MOD at: [id number] on: 07/18/24 by: [email or web address] Critical Verbal Readback Performed Ordering Provider: CAMDEN PATTON Report Released Date/Time: Jul 17, 2024 07:38 PM Reporting Lab: [address] [address] Performing Lab: [address] [address] WBC 7.0 10*3/uL 3.6-11.2 RBC 2.04 10*6/uL [...] 2.10-8.00 Jul 18, 2024 06:32 AM [facility] MAGNESIUM PLASMA Specimen Type: PLASM A Comment: No hemolysis noted. Ordering Provider: CAMDEN PATTON Report Released Date/Time: Jul 17, 2024 07:38 PM Reporting Lab: [facility] [address] [place] [address] Performing Lab: [facility] [address] [address] MAGNESIUM 1.5 mg/dL L 1.6-2.6 Jul 18, 2024 06:32 AM [facility] VANCOMYCIN (STL) PLASMA Specimen Type: PLASM A No comment entered. Ordering Provider: CAMDEN PATTON Report Released Date/Time: Jul 17, 2024 07:38 PM Reporting Lab: [facility] [address] [place] [address] Performing Lab: [address] [address] VANCOMYCIN (STL) 5.0 ug/mL L 10-15 Jul 18, 2024 06:32 AM [facility] PHOSPHOROUS PLASMA Specimen Type: PLASM A Comment: No hemolysis noted. Ordering Provider: CAMDEN PATTON Report Released Date/Time: Jul 17, 2024 07:38 PM Reporting Lab: [address] [address] Performing Lab: [address] [address] PHOSPHOROUS 2.2 mg/dL L 2.3-4.7 Jul 18, 2024 06:32 AM [facility] COMPREHENSIVE METABOLIC PANEL PLASMA Specimen Type: PLASMA Comment: No hemolysis noted. Ordering Provider: CAMDEN PATTON Report Released Date/Time: Jul 17, 2024 07:38 PM Reporting Lab: [address] [address] Performing Lab: [address] [address] CREATININE 1.08 mg/dL 0.7-1.3 UREA NITROGEN 40.5 [...] >60 Jul 18, 2024 12:05 AM [facility] HGB,HCT,PLT BLOOD Specimen Type: BLOOD No comment entered. Ordering Provider: ROSA VARGAS Report Released Date/Time: Jul 17, 2024 09:07 PM Reporting Lab: [address] [address] Performing Lab: [address] [address] HGB 7.3 g/dL L 13.1-16.8 HCT 21.0 L 38.2-48.4 PLT 64 10*3/uL L 150-400 Jul 17, 2024 07:45 PM [facility] MRSA SURVL NARES DNA NARES Specimen Type: [...] Jul 17, 2024 07:38 PM Reporting Lab: [address] [address] Performing Lab: [address] [address] MRSA SURVL NARES DNA Negative Negative Jul 17, 2024 07:36 PM [facility] GLUCOSE,BLOOD-poct (STL) BLOOD Specimen Type: BLOOD Comment: Test Performed by: [id number] Meter #: [id number] Ordering Provider: CAMDEN PATTON Report Released Date/Time: Jul 17, 2024 07:48 PM Reporting Lab: [address] [address] Performing Lab: [address] [address] GLUCOSE,BLOOD-poct (L) 98 mg/dL 72-99 Jul 17, 2024 07:35 PM [facility] BLOOD GAS PANEL ABG ([facility]) VENOUS BLOOD Specimen Type : VENOUS BLOOD Comment: normalcy status - Below absolute low-off instrument scale Test Performed by: [id number] Meter #: [id number] Ordering Provider: CAMDEN PATTON Report Released Date/Time: Jul 17, 2024 07:37 PM Reporting Lab: [address] [address] Performing Lab: [address] [address] GEM PH 7.39 7.31-7.41 GEM PCO2 31 [...] 37.0 Jul 17, 2024 07:10 PM [facility] URINALYSIS W/ CX REFLEX (STL-PB) URINE Specim en Type: URINE No comment entered. Ordering Provider: CASEY BOONE Report Released Date/Time: Jul 17, 2024 04:24 PM Reporting Lab: [address] [address] Performing Lab: [address] [address] URINE COLOR Light-Yellow Yellow U.BILIRUBIN Negative mg/dL Negative U.PH 6.0 5.0-8.0 APPEARANCE Clear Clear U.NITRITE Negative mg/dL Negative URN.GLUCOSE Normal mg/dL Negative URN.PROTEIN Negative mg/dL URN.UROBILINOGEN Normal mg/dL Normal URN.BLOOD Negative mg/dL Negative-Trace URN.KETONES Trace mg/dL Negative-Trace URN.LEUK.EST. Negative mg/dL Negative-Tr april URN.SPECIFIC GRAVITY 1.029 Jul 17, 2024 06:25 PM [facility] RETICULOCYTE PANEL BLOOD Specimen Type: BLOOD No comment entered. Ordering Provider: CASEY BOONE Report Released Date/Time: Jul 17, 2024 06:13 PM Reporting Lab: [address] [address] Performing Lab: [address] [address] RETIC RATIO 7.35 H 0.50-2.30 IRF 39.7 H 2.3-13.4 RETICULOCYTE HEMOGLOBIN EQUIVALENT 35.8 pg 28.2-36.6 RETIC COUNT,ABS 0.129 10*6/uL H 0.022-0.10 1 Jul 17, 2024 06:25 PM [facility] HAPTOGLOBIN (STL) PLASMA Specimen Type: PLASM A No comment entered. Ordering Provider: CASEY BOONE Report Released Date/Time: Jul 17, 2024 06:13 PM Reporting Lab: [address] [address] Performing Lab: [address] [address] HAPTOGLOBIN (STL) 93 mg/dL 44-215 Jul 17, 2024 06:25 PM [facility] LDH PLASMA Specimen Type: PLASM A No comment entered. Ordering Provider: CASEY BOONE Report Released Date/Time: Jul 17, 2024 06:13 PM Reporting Lab: [address] [address] Performing Lab: [place] [phone] LDH 305 U/L H 125-243 Jul 17, 2024 06:25 PM [facility] CBC BLOOD Specimen Type: BLOOD Comment: HGB Called to : Watson White at: 1934 on:[id number] by: SHARON Critical Verbal Readback Performed Ordering Provider: CAMDEN PATTON Report Released Date/Time: Jul 17, 2024 07:09 PM Reporting Lab: [address] [address] Performing Lab: [address] [address] WBC 27.6 10*3/uL H 3.6-11.2 RBC 1.76 [...] 2.10-8.00 Jul 17, 2024 04:59 PM [facility] BLOOD GAS PANEL ABG (STL) VENOUS BLOOD Specimen Type : VENOUS BLOOD Comment: Test Performed by: [id number] Meter #: [id number] Ordering Provider: CASEY BOONE Report Released Date/Time: Jul 17, 2024 05:00 PM Reporting Lab: [address] [address] Performing Lab: [address] [address] GEM PH 7.39 7.31-7.41 GEM PCO2 33 [...] 37.0 Jul 17, 2024 04:25 PM [facility] PT/INR NEW (STL-MA) PLASMA Specimen Type: PLAS MA No comment entered. Ordering Provider: CASEY BOONE Report Released Date/Time: Jul 17, 2024 04:24 PM Reporting Lab: [address] [address] Performing Lab: [address] [address] PROTIME 25.3 s H 9.4-12.5 INR VALUE 2.3 {INR} Jul 17, 2024 04:25 PM [facility] MAGNESIUM PLASMA Specimen Type: PLASM A Comment: No hemolysis noted. Ordering Provider: CASEY BOONE Report Released Date/Time: Jul 17, 2024 04:24 PM Reporting Lab: [facility] [address] [address] Performing Lab: [facility] [address] [address] MAGNESIUM 1.4 mg/dL L 1.6-2.6 Jul 17, 2024 04:25 PM [facility] COVID-19 DIAGNOSTIC (FLU/RSV)(STL) NASOPHARYNX Spec imen Type: [...] Jul 17, 2024 04:24 PM Reporting Lab: [facility] [address] [address] Performing Lab: [facility] [address] [place] [address] INFLUENZA A Negative Negative INFLUENZA B Negative Negative COVID-19 (STL-PB) Not Detected Not Detec nate RSV (Cepheid) NEGATIVE Negative Jul 17, 2024 04:25 PM [facility] COMPREHENSIVE METABOLIC PANEL PLASMA Specimen Type: PLASMA Comment: No hemolysis noted. Ordering Provider: CASEY BOONE Report Released Date/Time: Jul 17, 2024 04:24 PM Reporting Lab: [facility] [address] [address] Performing Lab: [facility] [address] [address] CREATININE 1.25 mg/dL 0.7-1.3 UREA NITROGEN 47.0 [...] 63.1 >60 Jul 17, 2024 04:25 PM [facility] CBC BLOOD Specimen Type: BLOOD No comment entered. Ordering Provider: CASEY BOONE Report Released Date/Time: Jul 17, 2024 04:24 PM Reporting Lab: [place] [id number] [facility] [address] Performing Lab: [address] [address] WBC 42.4 10*3/uL H 3.6-11.2 RBC 2.20 [...] 2.10-8.00 Jul 13, 2024 12:39 PM [facility] TSH W/ REFLEX FT4 (STL) PLASMA Specimen Type: PLASMA No comment entered. Ordering Provider: TONY SIMMONS Report Released Date/Time: Jun 07, 2024 01:01 PM Reporting Lab: [address] [phone] Performing Lab: [address] [address] TSH 1.431 u[IU]/mL 0.47-5 Jul 13, 2024 12:39 PM [facility] PHOSPHOROUS PLASMA Specimen Type: PLASM A Comment: No hemolysis noted. Ordering Provider: TONY SIMMONS Report Released Date/Time: Jun 07, 2024 01:01 PM Reporting Lab: [address] [phone] Performing Lab: [facility] [address] [address] PHOSPHOROUS 2.4 mg/dL 2.3-4.7 Jul 13, 2024 12:39 PM [facility] MAGNESIUM PLASMA Specimen Type: PLASM A Comment: No hemolysis noted. Ordering Provider: TONY SIMMONS Report Released Date/Time: Jun 07, 2024 01:01 PM Reporting Lab: [address] [address] Performing Lab: [address] [phone] MAGNESIUM 2.0 mg/dL 1.6-2.6 Jul 13, 2024 12:39 PM [facility] CBC BLOOD Specimen Type: BLOOD Comment: no clot Ordering Provider: TONY SIMMONS Report Released Date/Time: Jun 07, 2024 01:01 PM Reporting Lab: [facility] [address] [place] [phone] Performing Lab: [facility] [address] [address] WBC 3.0 10*3/uL L 3.6-11.2 RBC 3.83 [...] NEUT#-MDIFF 2.52 10*3/uL 2.10-8.00 Jul 13, 2024 12:39 PM [facility] COMPREHENSIVE METABOLIC PANEL PLASMA Specimen Type: PLASMA Comment: No hemolysis noted. Ordering Provider: TONY SIMMONS Report Released Date/Time: Jun 07, 2024 01:01 PM Reporting Lab: [facility] [address] [place] [id number] Performing Lab: [address] [address] CREATININE 0.75 mg/dL 0.7-1.3 UREA NITROGEN 21.3 [...] (CKD-EPI 2020) 98.9 >60 Jul 13, 2024 12:38 PM [facility] ALPHA-FETOPROTEIN(STL-PB) SERUM Specimen Type : SERUM No comment entered. Ordering Provider: CRYSTAL MASSEY Report Released Date/Time: Jul 04, 2024 03:26 PM Reporting Lab: [facility] [address] [facility] [address] Performing Lab: [facility] [address] [facility] [place] [address] ALPHA-FETOPROTEIN(STL-PB) 16.86 ng/mL H 1- 8.78 Jul 13, 2024 12:37 PM [facility] CARBOHYDRATE Ag SERUM Specimen Type: SERUM Comment: REFERENCE RANGE: <34 U/mL This test was performed using the Siemens chemiluminescent method. Values obtained from different assay methods cannot be used inter- changeably. CA 19-9 levels, regardless of value, should not be interpreted as absolute evidence of the presence or absence of disease. Test Performed by [facility], [facility], [address] [place] [address] Tristin Iyer M.D., Ph.D., Director of Laboratories , CLIA [id number] Ordering Provider: CRYSTAL MASSEY Report Released Date/Time: Jul 04, 2024 03:28 PM Reporting Lab: [facility] [address] [facility] [address] Performing Lab: [facility] [address] [facility] [address] CARBOHYDRATE Ag 61 H SEE BELOW Vital Signs: All taken on the encounter date This section contains inpatient and outpatient Vital Signs collected on the date of the Encounter. Date/Time Temperature Pulse Blood Pressure Respiratory Rate SP02 Pain Height Weight Body Mass Index Source Aug 10, 2024 08:00 PM 0 [facility] Aug 10, 2024 06:00 PM 0 [facility] Aug 10, 2024 06:00 PM 98.2 77 115/61 13 100 0 [facility] Aug 10, 2024 04:54 PM 74 129/74 [facility] Aug 10, 2024 12:19 PM 97.8 80 125/78 18 7 [facility] Social History: Smoking Status (Most current) and Tobacco Use (All prior to encounter date) This section includes the most current, and the historical, smoking and tobacco- related health factors from the [place] facility where the Encounter took place. Current Smoking Status This section includes the most current smoking, or tobacco-related health factor, from the [place] facility where the Encounter took place. Date/Time Current Smoking Status Comment Kaz jarrett Jul 17, 2024 04:02 PM ORYX ADMIT TOBACCO SCREEN NO [facility] Tobacco Use History This section includes a history of the smoking, or tobacco-related health factors, that were collected on or before the date of the Encounter. The data comes from the [place] facility where the Encounter took place. Date/Time Smoking Status/Tobacco Use Comment F acility Jan 20, 2023 03:49 PM VA-TOBACCO FORMER USER [facility] Jan 20, 2023 03:49 PM VA-TOBACCO QUIT 15 YRS OR MORE [facility] Feb 06, 2021 04:28 PM VA-TOBACCO FORMER USER [facility] Feb 06, 2021 04:28 PM VA-TOBACCO QUIT 15 YRS OR MORE [facility] Radiology Reports: +/- 30 days of the [...] the Encounter. The data comes from all [place] treatment facilities. Date/Time Radiology Report Provider Source Aug 23, 2024 12:12 PM US BLOOD FLOW ABD/RENAL DOPPLER (COMPLETE): ABRAHAM HAWK [id number] -1955 M Exm Date: AUG 23, 2024@12:12 Req Phys: GILSON OG Loc: [facility]-GEN MED INPT VISIT (Req'g L Img Loc: [facility]ULTRASOUND [facility] Service: Unknown [address] [address] (Case [id number] COMPLETE) US BLOOD FLOW ABD/RENAL DOPPLER ((US Detailed) CPT:86444 Reason for Study: dopplers Clinical History: Report Status: Verified Date Reported: AUG 23, 2024 Date Verified: AUG 23, 2024 [employer] Interpreter E-Sig:/ES/PETROS MCCORD Report: Case [id number], [id number]. US ABDOMEN LTD, SINGLE ORG OR QUADRANT, [...] vasculature. Primary Interpreting Staff: PETROS MCCORD MD ([employer] Interpreter) /PETROS SRIVASTAVA [facility] Aug 23, 2024 12:12 PM US ABDOMEN LTD, SINGLE ORG OR QUADRANT: ABRAHAM HAWK [id number] -1955 M Exm Date: AUG 23, 2024@12:12 Req Phys: GILSON OG Pat Loc: [facility]GEN MED INPT VISIT (Req'g L Img Loc: [facility]ULTR[facility]OUND [facility] Service: Unknown [facility] [address] [place] [address] (Case [id number] COMPLETE) US ABDOMEN LTD, SINGLE ORG OR CARLITOS(US Detailed) CPT:00178 Reason for Study: Possible SBP, RUQUS with dopplers, please comment on ascites? Clinical History: Report Status: Verified Date Reported: AUG 23, 2024 Date Verified: AUG 23, 2024 [employer] Interpreter E-Sig:/ES/PETROS MCCORD Report: Case [id number], [id number]. US ABDOMEN LTD, SINGLE ORG OR QUADRANT, [...] vasculature. Primary Interpreting Staff: PETROS MCCORD MD ([employer] Interpreter) /PETROS SRIVASTAVA [facility] Aug 10, 2024 02:[address] ABD PEL W/CONT & 3D: ABRAHAM HAWK [id number] -1955 M Exm Date: AUG 10, 2024@14:33 Req Phys: YASIR SANZ MD Pat Loc: [facility]-EMERGENCY DEPT 2ND SHIFT (R Img Loc: [facility]-CT IMAGING [facility] Service: Unknown [address] [address] (Case [id number] COMPLETE) CT ABDOMEN AND PELVIS W/CONTRAST (CT Detailed) CPT:05481 Contrast Media : Non-ionic Iodinated Reason for Study: Abdominal pain, vomiting Clinical History: Responsible Attending: Svetlana Attending Contact Number: [phone] Resident Contact Number: Abdominal pain, vomiting Allergies listed in CPRS chart: Patient has answered NKA Creatinine:CREATININE 0.82 mg/dL 08/10/2024 11:30 /eGFR: STL EGFR (within one year). CREATININE 0.82 mg/dL (08/10/24 11:30) Wt: 152.1 lb [68.99 kg] (08/10/2024 11:31) History of: Renal failure, chronic or acute renal disease: NO Report Status: Verified Date Reported: AUG 10, 2024 Date Verified: AUG 10, 2024 [employer] Interpreter E-Sig:/ES/PETROS MCCORD Report: Case [id number]. CT ABDOMEN AND PELVIS W/CONTRAST. Gastrointestinal contrast: [...] inguinal hernias. Dictated by Kenneth Albright DO (president consumer electronics company). I, Petros Mccord, have reviewed the images and report and concur with these findings. Primary Interpreting Staff: PETROS MCCORD MD ([employer] Interpreter) Primary Interpreting Resident: KENNETH ALBRIGHT, Cmm Programmer /PETROS REESE [facility] Aug 01, 2024 10:20 AM PET/CT TUMOR IMAGING (SKULL TO MID-THIGH)-P: ABRAHAM HAWK [id number] -1955 M Exm Date: AUG 01, 2024@10:20 Req Phys: TONY SIMMONS Loc: [facility]-ONCOLOGY [facility] (Req'g Loc) Img Loc: -PET-CT Service: [address] [address] (Case [id number] COMPLETE) PET/CT TUMOR SKULL BASE TO MID-T(NM Detailed) CPT:10922 CPT Modifiers : PS PET TUMOR SUBSQ TX STRATEGY Reason for Study: Nasopharyngeal cancer (Case [id number] COMPLETE) F-18 FLUORODEOXYGLUCOSE (FDG),PER(NM Detailed) CPT:A9552 Clinical History: Report Status: Verified Date Reported: AUG 01, 2024 Date Verified: AUG 01, 2024 [employer] Interpreter E-Sig:/ES/NATASHA LEIJA Report: PATIENT NAME: ABRAHAM HAWK. CASE #: [id number], [id number]. PROCEDURE: PET/CT study Indication: Nasopharyngeal cancer HISTORY: [...] lytic osseous lesion is noted within the gjjzu-[id number]. Impression: 1. The previous sites of FDG [...] NEEDED Primary Interpreting Staff: NATASHA LEIJA MD ([employer] Interpreter) /PFT NATASHA LEIJA [facility] Jul 27, 2024 03:41 PM CHEST PORTABLE: ABRAHAM HAWK [id number] -1955 M Exm Date: JUL 27, 2024@15:41 Req Phys: ELIZABETH COATES Loc: [facility]-EMERGENCY DEPT 2ND SHIFT (R Img Loc: [facility]-MAIN RADIOLOGY SUITE Service: [facility], [facility] [address] [place] [address] (Case [id number] COMPLETE) CHEST PORTABLE (RAD Detailed) CPT:11102 Proc Modifiers : Portable Reason for Study: sob Clinical History: Report Status: Verified Date Reported: JUL 27, 2024 Date Verified: JUL 27, 2024 [employer] Interpreter E-Sig:/ES/Sol Abraham MD Report: CASE [id number]. AP portable view chest. COMPARISON: Chest x-ray [...] advised. Report dictated by Krystian Sultana D.O. (president consumer electronics company) ISol, have reviewed the images and report and concur with these findings. Primary Interpreting Staff: Sol Abraham MD, Radiologist ([employer] Interpreter) Primary Interpreting Resident: Krystian Sultana D.O., Resident Physician /SOL DHALIWAL [facility] Jul 17, 2024 06:[address] ABD PEL W/CONT & 3D: ABRAHAM HAWK [id number] -1955 M Exm Date: JUL 17, 2024@18:18 Req Phys: CASEY BOONE Loc: 4-C [facility]/07-17-2024@19:47 Img Loc: [facility]-CT IMAGING [facility] Service: Unknown [facility], [facility] [address] [place] [address] (Case [id number] COMPLETE) CT ABDOMEN AND PELVIS W/CONTRAST (CT Detailed) CPT:11675 Contrast Media : Non-ionic Iodinated Reason for Study: septic shock, abd pain Clinical History: Responsible Attending: Nils Attending Contact Number: [phone] Resident Contact Number: Septic shock, Patient with [...] 17, 2024 Date Verified: JUL 17, 2024 [employer] Interpreter E-Sig: Report: CT THORAX W/CONT (PE) [PRINTSET], CT ABDOMEN AND PELVIS W/CONTRAST [PRINTSET] Comparison: 03/17/2022, 04/23/2024 Clinical History: RO PE The study was protocoled and supervised at the local [place] facility. Chest 12 series and 1585 images were subsequently received by the [place] [facility] (NTP) for interpretation. Abdomen and pelvis 9 series and 1365 images were subsequently received by the [place] [facility] (NTP) for interpretation. Total [...] from 09/12/2023. READING PHYSICIAN: Guilherme Talbert M.D. -[phone] 07/17/2024 17:44 PST [facility] [employer] Teleradiology Program [phone] (For Medical Practitioner Use Only) Attention Patients / Veterans: If you have questions or concerns about these test results, please contact your ordering provider or primary care team. Primary Interpreting Staff: RADIOLOGY,OUTSIDE SERVICE, Staff Physician / RADIOLOGY,OUTSIDE SERVICE [facility] Jul 17, 2024 06:[address] PE CHEST W/3D: ABRAHAM HAWK [id number] -1955 Ex Date: JUL 17, 2024@18:17 Req Phys: CASEY BOONE Loc: 4-C [facility]/07-17-2024@19:47 Img Loc: [facility]-CT IMAGING [facility] Service: [address] [address] (Case [id number] COMPLETE) CT THORAX W/CONT (PE) (CT Detailed) CPT:77887 Contrast Media : unspecified contrast media Reason for Study: RO PE Clinical History: Responsible Attending: Nils Attending Contact Number: [phone] Resident Contact Number: Patient with HCC and [...] 17, 2024 Date Verified: JUL 17, 2024 Autom[employer] Interpreter E-Sig: Report: CT THORAX W/CONT (PE) [PRINTSET], CT ABDOMEN AND PELVIS W/CONTRAST [PRINTSET] Comparison: 03/17/2022, 04/23/2024 Clinical History: RO PE The study was protocoled and supervised at the local [place] facility. Chest 12 series and 1585 images were subsequently received by the [place] [facility] (NTP) for interpretation. Abdomen and pelvis 9 series and 1365 images were subsequently received by the [place] [facility] Teler[facility] (NTP) for interpretation. Total [...] from 09/12/2023. READING PHYSICIAN: Guilherme Talbert M.D. -[phone] 07/17/2024 17:44 [facility] National Teleradiology Program [phone] (For Medical Practitioner Use Only) Attention Patients / Veterans: If you have questions or concerns about these test results, please contact your ordering provider or primary care team. Primary Interpreting Staff: RADIOLOGY,OUTSIDE SERVICE, Staff Physician / RADIOLOGY,OUTSIDE SERVICE [facility] Pathology Reports: +/- 30 days of [...] the Encounter. The data comes from all [place] treatment facilities. Date/Time Pathology Report Provider Source Aug 16, 2024 09:43 AM LR SURGICAL PATHOL OGLyudmila REPORT: LOCAL TITLE: LR SURGICAL PATHOLOGY REPORT STANDARD TITLE: PATHOLOGY PROCEDURE NOTE DATE OF NOTE: AUG 16, 2024@09:43:26 ENTRY DATE: AUG 16, 2024@09:43:26 AUTHOR: CRISTIANA TEMPLETONER: URGENCY: STATUS: COMPLETED $APHDR - - - [...] Performing Laboratory: Surgical Pathology Report Performed By: [address]# [id number] [address] [place] [id number] $FTR - - - - - - [...] - - ABRAHAM HAWK STANDARD FORM 515 ID:[id number] SEX:M :1955 AGE: 68 LOC:APFEE PCP: Deirdre Wild /loly/ CRISTIANA TEMPLETON Pathologist Signed: 08/16/2024 09:43 CRISTIANA TEMPLETON [facility] Aug 11, 2024 06:00 AM LR MICROBIOLOGY RE PORT: Accession [UID]: [id number] [[id number]] Received: Aug 11, 2024@06:19 Collection sample: B D BLD. BOTTLE Collection date: Aug 11, 2024 06:00 Site/Specimen: BLOOD Provider: GILSON OG Test(s) ordered: BLOOD CULT (SET 1)............ completed: Aug 17, 2024 10:06 * BACTERIOLOGY FINAL REPORT => Aug 17, 2024 10:22 TECH CODE: [id number] Bacteriology Remark(s): 08.17.24 KAReg Culture shows NO GROWTH IN 6 DAYS =--=--=--=--=--=--=--=--=-- =--=--=--=--=--=--=--=--=-- =--=--=--=--=--=--=--=-- Performing Laboratory: Bacteriology Report Performed By: [facility] [address] [place] [address] CLIA# [id number] [address] [address] JULISSA BROWN [facility] Jul 17, 2024 05:10 PM LR MICROBIOLOGY RE PORT: Accession [UID]: [id number] [[id number]] Received: Jul 17, 2024@17:30 Collection sample: B D BLD. BOTTLE (SET 2)Collection date: Jul 17, 2024 17:10 Site/Specimen: BLOOD Provider: CASEY BOONE Test(s) ordered: BLOOD CULT (SET 2)............ completed: Jul 23, 2024 14:26 * BACTERIOLOGY FINAL REPORT => Jul 23, 2024 14:28 TECH CODE: [id number] Bacteriology Remark(s): CULTURE IS NEGATIVE TO DATE, ALL POSITIVES ARE ROUTINELY CALLED. KI Culture shows NO GROWTH IN 6 DAYS. 07/23/24 KI =--=--=--=--=--=--=--=--=-- =--=--=--=--=--=--=--=--=-- =--=--=--=--=--=--=--=-- Performing Laboratory: Bacteriology Report Performed By: [facility] [address] [place] [address] CLIA# [id number] [address] [facility] [address] [place] [address] JULISSA BROWN [facility] Jul 17, 2024 05:10 PM LR MICROBIOLOGY RE PORT: Accession [UID]: [id number] [[id number]] Received: Jul 17, 2024@17:30 Collection sample: B D BLD. BOTTLE Collection date: Jul 17, 2024 17:10 Site/Specimen: BLOOD Provider: CASEY BOONE Test(s) ordered: BLOOD CULT (SET 1)............ completed: Jul 23, 2024 14:26 * BACTERIOLOGY FINAL REPORT => Jul 23, 2024 14:28 TECH CODE: [id number] Bacteriology Remark(s): CULTURE IS NEGATIVE TO DATE, ALL POSITIVES ARE ROUTINELY CALLED. KI Culture shows NO GROWTH IN 6 DAYS. 07/23/24 KI =--=--=--=--=--=--=--=--=-- =--=--=--=--=--=--=--=--=-- =--=--=--=--=--=--=--=-- Performing Laboratory: Bacteriology Report Performed By: [facility] [address] [place] [address] CLIA# [id number] [address] [facility] [address] [place] [address] JULISSA BROWN [facility] Encounter Notes: All associated encounter notes This section contains the clinical notes associated to the Encounter. Date/Time Encounter Note(s) Provider Source Aug 10, 2024 01:33 PM ADDENDUM: LOCAL TITLE: Addendum STANDARD TITLE: ADDENDUM DATE OF NOTE: AUG 10, 2024@13:33:58 ENTRY DATE: AUG 10, 2024@13:33:59 AUTHOR: SHAKILA SPENCER EXP COSIGNER: URGENCY: STATUS: COMPLETED Based on the ASPEN/AND malnutrition diagnosis guide (with = or > 2 indicators present), the following clinical characteristics support a diagnosis of: Severe protein-calorie malnutrition in the context of: Acute illness or injury as evidenced by: Weight loss: > 5% in 1 month Insufficient energy intake < 50% of estimated energy requirement for = or > 5 days Moderate loss of muscle mass Moderate loss of subcutaneous fat (new) /loly/ Shakila Spencer MBA, RD, [employer], LD Clinical Dietitian Signed: 08/10/2024 13:34 Receipt Acknowledged By: 08/10/2024 15:15 /es/ TONY SIMMONS MD STAFF PHYSICIAN, HEMATOLOGY/ONCOLOGY --- Original Document --- 08/10/24 NUTRITION FOLLOW UP STL: NUTRITION REASSESSMENT Diagnosis: stage II nasopharyngeal SCC Time spent with : 25 minutes face to face BMI: 20.7 Last appointment date: 08/02/24 Identifiers: name, CLIENT HISTORY 68 yr old male w/PMH Chronic hepatitis C, Hepatic cirrhosis, Chronic Pain Syndrome, GERD - Gastro-Esophageal Reflux Disease, Child attention deficit disorder, Monoclonal gammopathy, Hearing Loss, Dupuytren contracture, Hepatocellular carcinoma Treatments/therapy/alternat robson medicine: Nasal endoscopy, transoral biopsy of pharyngeal/soft palate mass 07/26/24 Keytruda 07/13/24 Alternative med: Ulysses Rivas Oil (enema) Social history: [place] denies food insecurity. He had been purchasing pureed meals for convenience. He presents w/his spouse today. FOOD AND NUTRITION RELATED HISTORY Diet experience: [place] reports taking Ulysses Rivas Oil (RSO) after last visit (last week) and he reports being ill since at least Tuesday (08/06). He hasn't been able to eat since then, throwing up all of the time. He states he has an intestinal bleed as he began having black tarry diarrheal stools. Prior to taking RSO he had 2 small fairly normal or small formed stools. He has been taking sips of water and trying to drink sprite but is unable. He has not had emesis since Tuesday. He is attributing illness to Keytruda. He has not had a chance to try two brenton hn yet. OUTPATIENT MEDICATIONS 1) FUROSEMIDE 20MG TAB TAKE ONE TABLET [...] TAKE WITH FOOD Indication: FOR POTASSIUM SUPPLEMENTATION 1) Non-VA AMPHETAMINE/DEXTROAMPHET 30MG SA CAP 30MG BY MOUTH ACTIVE EVERY MORNING 2) Non-VA LECITHIN CAP,ORAL 1 TEASPOON BY MOUTH ONCE A DAY ACTIVE 3) Non-VA MILK THISTLE CAP/TAB 1 CAP/TAB BY MOUTH ONCE A DAY ACTIVE 4) Non-VA PAPAYA TAB,CHEWABLE 4 TABLETS BY MOUTH ONCE A DAY ACTIVE 6) Non-VA TURMERIC CAP/TAB 1 CAPSULE BY MOUTH ONCE A DAY ACTIVE NEEDED KNOWLEDGE BELIEFS AND ATTITUDES [place] believes he did better on RSO. PHYSICAL ACTIVITY AND FUNCTION Ambulatory. ANTHROPOMETRIC MEASUREMENTS Ht: 72 in [182.9 cm] (07/26/2023 08:00) Wt: 152.1 lb [68.99 kg] (08/10/2024 11:31) Weight History/Significant changes: -7.6 lbs or 4.7% in the past week Patient Weight History - Last Four 1. 152.1 lbs. / 69.0 kg. on AUG 10, 2024@11:31:02 2. 159.7 lbs. / 72.4 kg. on AUG 02, 2024@12:04:56 3. 162.1 lbs. / 73.5 kg. on JUL 22, 2024@05:53:46 4. 162.1 lbs. / 73.5 kg. on JUL 21, 2024@05:54:39 BMI: 20.7 BIOCHEMICAL DATA/MEDICAL TESTS AND PROCEDURES Collection time: Aug 10, 2024@11:30 Test Name Result Units Range --------- ------ ----- ----- SODIUM 134 L mEq/L 136 - 145 POTASSIUM 4.0 mEq/L 3.5 - 5 CHLORIDE 101 mEq/L 98 - 107 UREA NITROGEN 21.7 mg/dL 9.0 - 25.0 CREATININE 0.82 mg/dL 0.7 - 1.3 CALCIUM 8.9 mg/dL 8.4 - 10.4 PROTEIN 6.9 g/dL 6 - 8.6 ALBUMIN 3.4 g/dL 3.4 - 5 ALKALINE PHOSPHATASE 92 U/L 40 - 150 ALT/SGPT 11 U/L 8 - 40 AST/SGOT 29 U/L 5 - 34 TOTAL BILIRUBIN 1.1 mg/dL 0.2 - 1.2 CARBON DIOXIDE 24 mEq/L 22 - 31 GLUCOSE 112 H mg/dL 72 - 99 EGFR (CKD-EPI 2020) 96.3 Ref: >=60 Collection time: Jul 21, 2024@14:00 Test Name Result Units Range --------- ------ ----- ----- FOLATE (STL-MA) 9.1 ng/mL 7 - 20 B12 1584 H pg/mL 213 - 816 IRON SATURATION 20 %SAT 20 - 50 TRANSFERRIN 194 mg/dL 163 - 344 IRON 49 L ug/dL 65 - 175 TIBC 243 L ug/dL 250 - 450 NUTRITION FOCUSED PHYSICAL FINDINGS Dentures U/L, not wearing, jaw swollen Dry mouth GERD, omeprazole helps C/O n/v, diarrheal black tarry diarrheal stools Fat status: Moderate subcutaneous fat wasting noted in orbital fat pads, buccal fat pads Muscle Status: Mild muscle mass wasting noted in temporalis muscle Moderate muscle mass wasting noted in clavicle region (pectoralis major, deltoid), shoulder region (acromion process, deltoid, trapezius), scapula region (trapezius, rhomboid, latissimus dorsi) Severe muscle mass wasting noted in quadriceps LE swelling NUTRITION PRESCRIPTION Estimated energy needs: REE 1544 x 1.4-1.6 = 7458-8076 cals/day Estimated protein needs: 86-108 grams/day (1.2-1.5/kg ABW) Estimated fluid needs: 3843-6320 ml/day (1/brenton) Nutrition prescription specifics: high brenton/pro, texture to tolerance, ons to supplement NUTRITION DIAGNOSIS Biting/Chewing (Masticatory) diffficulty related to partial or complete edentulism, soft tissue disease, xerostomia (physiologic metabolic etiology) as evidenced by partial or complete edentulism, head and neck ca, dry mouth, decreased estimated food intake/avoidance of foods/food groups, conditions associated w/H&N ca. (active) Unbalanced diet pattern related to Limited physical ability (chewing difficulty/discomfort) evidenced by Conditions associated with a diagnosis or treatment that might contribute to unbalanced diet pattern (edentulous, hx of head and neck cancer), and negative emotions about food and nutrition (distrust of foods other than Boost). (active) Inadequate energy related to decreased ability to consume sufficient energy and increased needs due to catabolic illness (physiologic metabolic and treatment etilogies) as evidenced by head and neck ca, conditions associated w/disease and treatment, GI symptoms, wt loss. (new) Based on the ASPEN/AND malnutrition diagnosis guide (with = or > 2 indicators present), the following clinical characteristics support a diagnosis of: Severe protein-calorie malnutrition in the context of: Acute illness or injury as evidenced by: Weight loss: > 5% in 1 month Insufficient energy intake < 50% of estimated energy requirement for = or > 5 days Moderate loss of muscle mass Moderate loss of subcutaneous fat (new) NUTRITION INTERVENTIONS FOOD AND NUTRIENT DELIVERY Texture modified to tolerance, emphasis on sufficient cals/pro Commercial beverage food supplement therapy: trialing two brenton hn tid ( hasn't been able to trial thus far) NUTRITION EDUCATION/COUNSELING Content related and nutrition's influence on health: Acknowledged acute illness, GI findings and use of RSO. Relayed all to provider, to ED per provider. Education material: none Barriers to learning: none Comprehension: good COORDINATION OF NUTRITION CARE As above. NUTRITION MONITORING AND EVALUATION Number of estimated meals 24 hrs (texture to tolerance): 2-3 (not achieved) Nutritionally complete liquid oral supplement in 24 hrs: two brenton hn tid (not achieved) Return to clinic: 2-4 weeks Dietitian contact information provided for any follow-up questions or needs. Homelessness/Food Insecurity Screen: no change from prior /es/ Shakila Spencer MBA, RD, [employer], LD Clinical Dietitian Signed: 08/10/2024 13:30 SHAKILA SPENCER [facility] Aug 10, 2024 01:07 PM NUTRITION DIETETIC S NOTE: LOCAL TITLE: NUTRITION FOLLOW UP STL STANDARD TITLE: NUTRITION DIETETICS NOTE DATE OF NOTE: AUG 10, 2024@13:07 ENTRY DATE: AUG 10, 2024@13:07:11 AUTHOR: SHAKILA SPENCER EXP COSIGNER: URGENCY: STATUS: COMPLETED NUTRITION FOLLOW UP STL Has ADDENDA NUTRITION REASSESSMENT Diagnosis: stage II nasopharyngeal SCC Time spent with [place]: 25 minutes face to face BMI: 20.7 Last appointment date: 08/02/24 Identifiers: name, CLIENT HISTORY 68 yr old male w/PMH Chronic hepatitis C, Hepatic cirrhosis, Chronic Pain Syndrome, GERD - Gastro-Esophageal Reflux Disease, Child attention deficit disorder, Monoclonal gammopathy, Hearing Loss, Dupuytren contracture, Hepatocellular carcinoma Treatments/therapy/alternat robson medicine: Nasal endoscopy, transoral biopsy of pharyngeal/soft palate mass 07/26/24 Keytruda 07/13/24 Alternative med: Ulysses Rivas Oil (enema) Social history: denies food insecurity. He had been purchasing pureed meals for convenience. He presents w/his spouse today. FOOD AND NUTRITION RELATED HISTORY Diet experience: reports taking Ulysses Rivas Oil (RSO) after last visit (last week) and he reports being ill since at least Tuesday (08/06). He hasn't been able to eat since then, throwing up all of the time. He states he has an intestinal bleed as he began having black tarry diarrheal stools. Prior to taking RSO he had 2 small fairly normal or small formed stools. He has been taking sips of water and trying to drink sprite but is unable. He has not had emesis since Tuesday. He is attributing illness to Keytruda. He has not had a chance to try two brenton hn yet. OUTPATIENT MEDICATIONS 1) FUROSEMIDE 20MG TAB TAKE ONE TABLET [...] TAKE WITH FOOD Indication: FOR POTASSIUM SUPPLEMENTATION 1) Non-VA AMPHETAMINE/DEXTROAMPHET 30MG SA CAP 30MG BY MOUTH ACTIVE EVERY MORNING 2) Non-VA LECITHIN CAP,ORAL 1 TEASPOON BY MOUTH ONCE A DAY ACTIVE 3) Non-VA MILK THISTLE CAP/TAB 1 CAP/TAB BY MOUTH ONCE A DAY ACTIVE 4) Non-VA PAPAYA TAB,CHEWABLE 4 TABLETS BY MOUTH ONCE A DAY ACTIVE 6) Non-VA TURMERIC CAP/TAB 1 CAPSULE BY MOUTH ONCE A DAY ACTIVE NEEDED KNOWLEDGE BELIEFS AND ATTITUDES believes he did better on RSO. PHYSICAL ACTIVITY AND FUNCTION Ambulatory. ANTHROPOMETRIC MEASUREMENTS Ht: 72 in [182.9 cm] (07/26/2023 08:00) Wt: 152.1 lb [68.99 kg] (08/10/2024 11:31) Weight History/Significant changes: -7.6 lbs or 4.7% in the past week Patient Weight History - Last Four 1. 152.1 lbs. / 69.0 kg. on AUG 10, 2024@11:31:02 2. 159.7 lbs. / 72.4 kg. on AUG 02, 2024@12:04:56 3. 162.1 lbs. / 73.5 kg. on JUL 22, 2024@05:53:46 4. 162.1 lbs. / 73.5 kg. on JUL 21, 2024@05:54:39 BMI: 20.7 BIOCHEMICAL DATA/MEDICAL TESTS AND PROCEDURES Collection time: Aug 10, 2024@11:30 Test Name Result Units Range --------- ------ ----- ----- SODIUM 134 L mEq/L 136 - 145 POTASSIUM 4.0 mEq/L 3.5 - 5 CHLORIDE 101 mEq/L 98 - 107 UREA NITROGEN 21.7 mg/dL 9.0 - 25.0 CREATININE 0.82 mg/dL 0.7 - 1.3 CALCIUM 8.9 mg/dL 8.4 - 10.4 PROTEIN 6.9 g/dL 6 - 8.6 ALBUMIN 3.4 g/dL 3.4 - 5 ALKALINE PHOSPHATASE 92 U/L 40 - 150 ALT/SGPT 11 U/L 8 - 40 AST/SGOT 29 U/L 5 - 34 TOTAL BILIRUBIN 1.1 mg/dL 0.2 - 1.2 CARBON DIOXIDE 24 mEq/L 22 - 31 GLUCOSE 112 H mg/dL 72 - 99 EGFR (CKD-EPI 2020) 96.3 Ref: >=60 Collection time: Jul 21, 2024@14:00 Test Name Result Units Range --------- ------ ----- ----- FOLATE (STL-MA) 9.1 ng/mL 7 - 20 B12 1584 H pg/mL 213 - 816 IRON SATURATION 20 %SAT 20 - 50 TRANSFERRIN 194 mg/dL 163 - 344 IRON 49 L ug/dL 65 - 175 TIBC 243 L ug/dL 250 - 450 NUTRITION FOCUSED PHYSICAL FINDINGS Dentures U/L, not wearing, jaw swollen Dry mouth GERD, omeprazole helps C/O n/v, diarrheal black tarry diarrheal stools Fat status: Moderate subcutaneous fat wasting noted in orbital fat pads, buccal fat pads Muscle Status: Mild muscle mass wasting noted in temporalis muscle Moderate muscle mass wasting noted in clavicle region (pectoralis major, deltoid), shoulder region (acromion process, deltoid, trapezius), scapula region (trapezius, rhomboid, latissimus dorsi) Severe muscle mass wasting noted in quadriceps LE swelling NUTRITION PRESCRIPTION Estimated energy needs: REE 1544 x 1.4-1.6 = 2076-1182 cals/day Estimated protein needs: 86-108 grams/day (1.2-1.5/kg ABW) Estimated fluid needs: 7585-7438 ml/day (1/brenton) Nutrition prescription specifics: high brenton/pro, texture to tolerance, ons to supplement NUTRITION DIAGNOSIS Biting/Chewing (Masticatory) diffficulty related to partial or complete edentulism, soft tissue disease, xerostomia (physiologic metabolic etiology) as evidenced by partial or complete edentulism, head and neck ca, dry mouth, decreased estimated food intake/avoidance of foods/food groups, conditions associated w/H&N ca. (active) Unbalanced diet pattern related to Limited physical ability (chewing difficulty/discomfort) evidenced by Conditions associated with a diagnosis or treatment that might contribute to unbalanced diet pattern (edentulous, hx of head and neck cancer), and negative emotions about food and nutrition (distrust of foods other than Boost). (active) Inadequate energy related to decreased ability to consume sufficient energy and increased needs due to catabolic illness (physiologic metabolic and treatment etilogies) as evidenced by head and neck ca, conditions associated w/disease and treatment, GI symptoms, wt loss. (new) Based on the ASPEN/AND malnutrition diagnosis guide (with = or > 2 indicators present), the following clinical characteristics support a diagnosis of: Severe protein-calorie malnutrition in the context of: Acute illness or injury as evidenced by: Weight loss: > 5% in 1 month Insufficient energy intake < 50% of estimated energy requirement for = or > 5 days Moderate loss of muscle mass Moderate loss of subcutaneous fat (new) NUTRITION INTERVENTIONS FOOD AND NUTRIENT DELIVERY Texture modified to tolerance, emphasis on sufficient cals/pro Commercial beverage food supplement therapy: trialing two brenton hn tid ( hasn't been able to trial thus far) NUTRITION EDUCATION/COUNSELING Content related and nutrition's influence on health: Acknowledged acute illness, GI findings and use of RSO. Relayed all to provider, to ED per provider. Education material: none Barriers to learning: none Comprehension: good COORDINATION OF NUTRITION CARE As above. NUTRITION MONITORING AND EVALUATION Number of estimated meals 24 hrs (texture to tolerance): 2-3 (not achieved) Nutritionally complete liquid oral supplement in 24 hrs: two brenton hn tid (not achieved) Return to clinic: 2-4 weeks Dietitian contact information provided for any follow-up questions or needs. Homelessness/Food Insecurity Screen: no change from prior /loly/ Shakila Spencer MBA, SEAMUS, LUIS E, [place] Clinical Dietitian Signed: 08/10/2024 13:30 08/10/2024 ADDENDUM STATUS: COMPLETED Based on the ASPEN/AND malnutrition diagnosis guide (with = or > 2 indicators present), the following clinical characteristics support a diagnosis of: Severe protein-calorie malnutrition in the context of: Acute illness or injury as evidenced by: Weight loss: > 5% in 1 month Insufficient energy intake < 50% of estimated energy requirement for = or > 5 days Moderate loss of muscle mass Moderate loss of subcutaneous fat (new) /loly/ Shakila Spencer MBA, RD, [employer], [place] Clinical Dietitian Signed: 08/10/2024 13:34 Receipt Acknowledged By: * AWAITING SIGNATURE * TONY SIMMONS ANN M [facility]
--- OUTSIDE RECORDS SUMMARY | 2024-10-08 17:08 | XMS_ITS ---
Author Name [facility] [place] [facility] [place] Address [address] [place] [address] Care Team Providers Care Car Carder Name Role Phone SUKHJINDER CHAHAL Primary Care [...] SUPPL EMENT Nov 25, 2021 PLAN G [id number] [phone] ELLEN HAWK VID PATIENT AARP MED SUPP MEDIGAP PLAN G MEDIC ARE SUPPL EMENT Nov 25, 2021 PLAN G [id number] [phone] ELLEN HAWK VID PATIENT MEDICARE (WNR) MEDICARE (M) PART B Sep 25, 2021 PART B [id number] ELLEN HAWK VID PATIENT MEDICARE (WNR) MEDICARE (M) PART A Aug 25, 2021 PART A [id number] ELLEN HAWKD PATIENT Selected Encounter This section includes the information on record at [place] for the Encounter. 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 Date/Time Primary/Secondary Diagnosis Diagnosis Name Provider Source Jul 13, 2024 02:19 PM PRIMARY Malignant neoplasm of nasopharynx, unspecified BUDDY AQUINO [facility] Jul 13, 2024 02:19 PM SECONDARY Other specified counseling BUDDY AQUINO [facility] Plan of Treatment: Future Appointments (+ 6 months) and Future Tests (+/- 45 days) The Plan of Treatment section includes future care activities for the patient from all [place] treatmentfacilities. This section includes future appointments and future orders which are active, pending or scheduled. Future Appointments This section includes appointments that were scheduled to occur 6 months from the date of the Encounter, up to a maximum of 20 appointments. The data comes from all [place] treatment facilities. Appointment Date/Time Appointment Type Appointme nt Facility Name Jul 17, 2024 04:02 PM AMBULATORY - MEDICINE [facility] Jul 25, 2024 01:00 PM AMBULATORY - MEDICINE [facility] Jul 26, 2024 10:00 AM AMBULATORY - MEDICINE [facility] Jul 27, 2024 03:14 PM AMBULATORY - MEDICINE [facility] Aug 01, 2024 10:15 AM AMBULATORY - NONE [facility] Aug 02, 2024 11:30 AM AMBULATORY - MEDICINE [facility] Aug 02, 2024 11:31 AM AMBULATORY - MEDICINE [facility] Aug 10, 2024 11:00 AM AMBULATORY - MEDICINE [facility] Aug 10, 2024 11:31 AM AMBULATORY - MEDICINE [facility] Aug 10, 2024 11:59 AM AMBULATORY - MEDICINE [facility] Aug 16, 2024 10:00 AM AMBULATORY - MEDICINE [facility] Aug 17, 2024 08:30 AM AMBULATORY - MEDICINE [facility] Aug 17, 2024 09:00 AM AMBULATORY - MEDICINE [facility] Aug 17, 2024 09:30 AM AMBULATORY - MEDICINE [facility] Aug 23, 2024 12:00 PM AMBULATORY - NONE [facility] Aug 31, 2024 02:00 PM AMBULATORY - MEDICINE [facility] Sep 07, 2024 11:00 AM AMBULATORY - MEDICINE [facility] Sep 07, 2024 01:00 PM AMBULATORY - MEDICINE [facility] Oct 15, 2024 03:00 PM AMBULATORY - SURGERY [facility] Oct 19, 2024 02:00 PM AMBULATORY - NONE [facility] Active, Pending, and Scheduled Orders This section includes a listing of several types of active, pending, and scheduled orders, including clinic medications orders, diagnostic test orders, procedure orders and consult orders; where the start date of the order is 45 days before the date of the Encounter or 45 days after the date of theEncounter. The data comes from all [place] treatment facilities. Test Date/Time Test Type Test Details Facility Name Jul 17, 2024 12:00 AM Laboratory - Blood Bank Order RED BLOOD CELLS - LAB VBECS - NO SPECIMEN REQUIRED [facility] Jul 17, 2024 12:00 AM Laboratory - Blood Bank Order FRESH FROZEN PLASMA - LAB VBECS - NO SPECIMEN REQUIRED [facility] Jul 17, 2024 06:13 PM Laboratory - Blood Bank Order DIRECT ANTIGLOBULIN TEST - LAB BLOOD STAT [facility] Jul 17, 2024 06:13 PM Laboratory - Blood Bank Order TYPE & SCREEN - LAB BLOOD [facility] Jul 18, 2024 12:00 AM Laboratory - Blood Bank Order PLATELETS - LAB VBECS - NO SPECIMEN REQUIRED [facility] Aug 10, 2024 12:00 AM Laboratory - Blood Bank Order RED BLOOD CELLS - LAB VBECS - NO SPECIMEN REQUIRED JOANN [facility] Aug 10, 2024 02:00 PM Laboratory - Blood Bank Order TYPE & SCREEN - LAB BLOOD [facility] Aug 10, 2024 05:43 PM Laboratory - Chemistry Order LIPASE GREEN LI/HEP BLD/PLAS PLASMA STAT I ONCE [facility] Aug 10, 2024 05:44 PM Laboratory - Microbiology Order BLOOD CULT (SET 2) B D BLD. BOTTLE (SET 2) BLOOD JOANN I NOW [facility] Aug 11, 2024 02:00 AM Laboratory - Chemistry Order CBC BLOOD [facility] Aug 14, 2024 02:00 AM Laboratory - Chemistry Order CBC BLOOD [facility] Aug 15, 2024 02:00 AM Laboratory - Chemistry Order CBC BLOOD [facility] Aug 16, 2024 12:00 AM Laboratory - Chemistry Order CBC BLOOD SP [facility] Aug 16, 2024 08:00 PM Laboratory - Chemistry Order CBC BLOOD LC [facility] Aug 17, 2024 08:00 PM Laboratory - Chemistry Order CBC BLOOD LC [facility] Lab Results: +/- 30 days of [...] Interpretation Reference Range Specimen Type Comment Aug 12, 2024 10:10 PM [facility] GLUCOSE,BLOOD-poct (STL) BLOOD Specimen Type: BLOOD Comment: Test Performed by: [id number] Meter #: [id number] Ordering Provider: DEIRDRE WILD Report Released Date/Time: Aug 12, 2024 10:50 PM Reporting Lab: [place] [address] [facility] [address] Performing Lab: [address] [address] GLUCOSE,BLOOD-poct (STL) 105 mg/dL H 72-99 Aug 12, 2024 08:48 PM [facility] CBC BLOOD Specimen Type: BLOOD Comment: SEE PREVIOUS DIFFERENTIAL ON 08/12/24 @ 1807 Ordering Provider: GILSON OG Report Released Date/Time: Aug 10, 2024 04:01 PM Reporting Lab: [facility] [address] [facility] [address] Performing Lab: [facility] [address] [place] [address] WBC 5.0 10*3/uL 3.6-11.2 RBC 2.78 10*6/uL [...] 6.5 1.0-7.0 Aug 12, 2024 08:48 PM [facility] CRP PLASMA Specimen Type: PLASM A No comment entered. Ordering Provider: CASH CLOUD Report Released Date/Time: Aug 12, 2024 10:14 AM Reporting Lab: [facility] [address] [facility] [address] Performing Lab: [facility] [address] [place] [address] CRP 0.6 mg/dL H 0-0.5 Aug 12, 2024 04:51 PM [facility] GLUCOSE,BLOOD-poct (STL) BLOOD Specimen Type: BLOOD Comment: Test Performed by: [id number] Meter #: [id number] Ordering Provider: DEIRDRE WILD Report Released Date/Time: Aug 12, 2024 05:07 PM Reporting Lab: [address] [address] Performing Lab: [address] [address] GLUCOSE,BLOOD-poct (STL) 135 mg/dL H 72-99 Aug 12, 2024 02:33 PM [facility] CBC BLOOD Specimen Type: BLOOD No comment entered. Ordering Provider: GILSON OG Report Released Date/Time: Aug 10, 2024 04:01 PM Reporting Lab: [address] [address] Performing Lab: [address] [address] WBC 4.0 10*3/uL 3.6-11.2 RBC 2.56 10*6/uL [...] 10*3/uL 2.10-8.00 Aug 12, 2024 11:51 AM [facility] GLUCOSE,BLOOD-poct (STL) BLOOD Specimen Type: BLOOD Comment: Test Performed by: [id number] Meter #: [id number] Ordering Provider: DEIRDRE WILD Report Released Date/Time: Aug 12, 2024 12:26 PM Reporting Lab: [address] [address] Performing Lab: [address] [address] GLUCOSE,BLOOD-poct (STL) 139 mg/dL H 72-99 Aug 12, 2024 07:35 AM [facility] CBC BLOOD Specimen Type: BLOOD Comment: prev diff 08/11/24. Ordering Provider: GILSON OG Report Released Date/Time: Aug 10, 2024 04:01 PM Reporting Lab: [place] [address] [facility] [address] Performing Lab: [address] [address] WBC 3.0 10*3/uL L 3.6-11.2 RBC 2.54 [...] 0.00-0. 20 Aug 12, 2024 05:49 AM [facility] GLUCOSE,BLOOD-poct (STL) BLOOD Specimen Type: BLOOD Comment: Test Performed by: [id number] Meter #: [id number] Ordering Provider: DEIRDRE WILD Report Released Date/Time: Aug 12, 2024 05:50 AM Reporting Lab: [address] [address] Performing Lab: [address] [address] GLUCOSE,BLOOD-poct (L) 112 mg/dL H 72-99 Aug 12, 2024 01:45 AM [facility] CBC BLOOD Specimen Type: BLOOD Comment: SEE PREVIOUS DIFFERENTIAL ON 08/12/24 @ 0239 [facility] Ordering Provider: GILSON OG Report Released Date/Time: Aug 10, 2024 04:01 PM Reporting Lab: [address] [address] Performing Lab: [address] [address] WBC 2.6 10*3/uL L 3.6-11.2 RBC 2.42 [...] 6.4 1.0-7.0 Aug 11, 2024 09:25 PM [facility] CBC BLOOD Specimen Type: BLOOD No comment entered. Ordering Provider: GILSON OG Report Released Date/Time: Aug 10, 2024 04:01 PM Reporting Lab: [address] [address] Performing Lab: [address] [address] WBC 3.6 10*3/uL 3.6-11.2 RBC 2.54 10*6/uL [...] 10*3/uL 2.10-8.00 Aug 11, 2024 09:17 PM [facility] GLUCOSE,BLOOD-poct (STL) BLOOD Specimen Type: BLOOD Comment: Test Performed by: [id number] Meter #: [id number] Ordering Provider: DEIRDRE WILD Report Released Date/Time: Aug 11, 2024 09:21 PM Reporting Lab: [facility] [address] [place] [address] Performing Lab: [address] [address] GLUCOSE,BLOOD-poct (STL) 167 mg/dL H 72-99 Aug 11, 2024 04:42 PM [facility] CBC BLOOD Specimen Type: BLOOD No comment entered. Ordering Provider: YVONNE HARRISON Report Released Date/Time: Aug 11, 2024 04:41 PM Reporting Lab: [address] [address] Performing Lab: [address] [address] WBC 4.0 10*3/uL 3.6-11.2 RBC 2.74 10*6/uL [...] 10*3/uL 2.10-8.00 Aug 11, 2024 04:30 PM [facility] GLUCOSE,BLOOD-poct (STL) BLOOD Specimen Type: BLOOD Comment: Test Performed by: [id number] Meter #: [id number] Ordering Provider: DEIRDRE WILD Report Released Date/Time: Aug 11, 2024 06:06 PM Reporting Lab: [place] [address] [address] [facility] [address] Performing Lab: [place] [address] [facility] [address] GLUCOSE,BLOOD-poct (STL) 95 mg/dL 72-99 Aug 11, 2024 11:08 AM [facility] GLUCOSE,BLOOD-poct (L) BLOOD Specimen Type: BLOOD Comment: Test Performed by: [id number] Meter #: [id number] Ordering Provider: DEIRDRE WILD Report Released Date/Time: Aug 11, 2024 11:10 AM Reporting Lab: [place] [address] [facility] [address] Performing Lab: [place] [address] [facility] [address] GLUCOSE,BLOOD-poct (STL) 117 mg/dL H 72-99 Aug 11, 2024 06:00 AM [facility] PT/INR NEW (L-MA) PLASMA Specimen Type: PLAS MA No comment entered. Ordering Provider: GILSON OG Report Released Date/Time: Aug 10, 2024 06:20 PM Reporting Lab: [place] [address] [facility] [address] Performing Lab: [place] [address] [facility] [address] PROTIME 15.5 s H 9.4-12.5 INR VALUE 1.4 {INR} Aug 11, 2024 06:00 AM [facility] IRON/TIBC PROFILE SERUM Specimen Type: SERUM No comment entered. Ordering Provider: GILSON OG Report Released Date/Time: Aug 10, 2024 04:02 PM Reporting Lab: [place] [address] [facility] [address] Performing Lab: [place] [address] [facility] [address] TIBC 263 ug/dL 250-450 TRANSFERRIN 210 mg/dL 163-344 IRON SATURATION 8 L 20-50 IRON 21 ug/dL L 65-175 Aug 11, 2024 06:00 AM [facility] HEPATIC FUNTION PANEL (STL) PLASMA Specimen Ty pe: PLASMA No comment entered. Ordering Provider: GILSON OG Report Released Date/Time: Aug 10, 2024 04:02 PM Reporting Lab: [address] [address] Performing Lab: [place] [address] [facility] [address] PROTEIN 5.4 g/dL L 6-8.6 ALBUMIN 2.6 g/dL L 3.4-5 TOTAL BILIRUBIN 0.8 mg/dL 0.2-1.2 ALKALINE PHOSPHATASE 72 U/L 40-150 AST/SGOT 28 U/L 5-34 ALT/SGPT 10 U/L 8-40 CONJ. BILIRUBIN 0.4 mg/dL 0-0.5 Aug 11, 2024 06:00 AM [facility] APTT PLASMA Specimen Type: PLASM A No comment entered. Ordering Provider: GILSON OG Report Released Date/Time: Aug 10, 2024 06:20 PM Reporting Lab: [address] [address] Performing Lab: [address] [address] APTT 25.5 s L 26.7-39.9 Aug 11, 2024 06:00 AM [facility] CBC BLOOD Specimen Type: BLOO D No comment entered. Ordering Provider: GILSON OG Report Released Date/Time: Aug 10, 2024 04:01 PM Reporting Lab: [address] [address] Performing Lab: [address] [address] WBC 2.4 10*3/uL L 3.6-11.2 RBC 2.42 [...] L 2.10-8.00 Aug 10, 2024 09:00 PM [facility] BASIC METABOLIC PANEL PLASMA Specimen Type: PL ASMA Comment: No hemolysis noted. Ordering Provider: GILSON OG Report Released Date/Time: Aug 10, 2024 04:01 PM Reporting Lab: [facility] [address] [facility] [address] Performing Lab: [facility] [address] [facility] [address] CREATININE 0.84 mg/dL 0.7-1.3 UREA NITROGEN 16.8 mg/dL 9.0-25.0 GLUCOSE 104 mg/dL H 72-99 SODIUM 133 meq/L L 136-145 POTASSIUM 3.5 meq/L 3.5-5 CHLORIDE 103 meq/L 98-107 CARBON DIOXIDE 23 meq/L 22-31 CALCIUM 8.4 mg/dL 8.4-10.4 EGFR (CKD-EPI 2020) 95.6 >60 Aug 10, 2024 09:00 PM [facility] CBC BLOOD Specimen Type: BLOOD No comment entered. Ordering Provider: GILSON OG Report Released Date/Time: Aug 10, 2024 04:01 PM Reporting Lab: [facility] [address] [facility] [address] Performing Lab: [address] [address] WBC 4.3 10*3/uL 3.6-11.2 RBC 2.22 10*6/uL [...] 10*3/uL 2.10-8.00 Aug 10, 2024 06:30 PM [facility] MRSA SURVL NARES DNA NARES [...] Aug 10, 2024 04:01 PM Reporting Lab: [place] [address] [facility] [address] Performing Lab: [address] [address] MRSA SURVL NARES DNA Negative Negative Aug 10, 2024 06:02 PM [facility] GLUCOSE,BLOOD-poct (L) BLOOD Specimen Type: BLOOD Comment: Test Performed by: [id number] Meter #: [id number] Ordering Provider: YASIR SANZ MD Report Released Date/Time: Aug 10, 2024 06:04 PM Reporting Lab: [facility] [address] [facility] [address] Performing Lab: [place] [address] [facility] [address] GLUCOSE,BLOOD-poct (L) 94 mg/dL 72-99 Aug 10, 2024 02:12 PM [facility] PT/INR NEW (L-MA) PLASMA Specimen Type: PLAS MA No comment entered. Ordering Provider: YASIR SANZ MD Report Released Date/Time: Aug 10, 2024 02:00 PM Reporting Lab: [facility] [address] [facility] [address] Performing Lab: [facility] [address] [place] [address] PROTIME 13.8 s H 9.4-12.5 INR VALUE 1.2 {INR} Aug 10, 2024 02:12 PM [facility] APTT PLASMA Specimen Type: PLASM A No comment entered. Ordering Provider: YASIR SANZ MD Report Released Date/Time: Aug 10, 2024 02:00 PM Reporting Lab: [address] [address] Performing Lab: [place] [address] [facility] [address] APTT 20.1 s L 26.7-39.9 Aug 10, 2024 11:30 AM [facility] TSH W/ REFLEX FT4 (STL) PLASMA Specimen Type: PLASMA No comment entered. Ordering Provider: TONY SIMMONS Report Released Date/Time: Aug 02, 2024 12:33 PM Reporting Lab: [address] [address] Performing Lab: [address] [address] TSH 3.991 u[IU]/mL 0.47-5 Aug 10, 2024 11:30 AM [facility] COMPREHENSIVE METABOLIC PANEL PLASMA Specimen Type: PLASMA Comment: No hemolysis noted. Ordering Provider: TONY SIMMONS Report Released Date/Time: Aug 02, 2024 12:33 PM Reporting Lab: [address] [address] Performing Lab: [address] [address] CREATININE 0.82 mg/dL 0.7-1.3 UREA NITROGEN 21.7 [...] 96.3 >60 Aug 10, 2024 11:30 AM [facility] CBC BLOOD Specimen Type: BLOOD No comment entered. Ordering Provider: TONY SIMMONS Report Released Date/Time: Aug 02, 2024 12:33 PM Reporting Lab: [address] [address] Performing Lab: [address] [address] WBC 7.4 10*3/uL 3.6-11.2 RBC 2.81 10*6/uL [...] 0.00-0. 20 Aug 02, 2024 11:53 AM [facility] PROTEIN ELECTROPHORESIS BLOOD SERUM Specimen Type: SERUM Comment: Reference Range: None Detected NOTE: THIS RESULT IS FLAGGED ABNORMAL Evaluation reveals a restricted band (M-spike) migrating in the gamma globulin region. If not already requested, Immunofixation should be considered. Test Performed by [facility], [address] [place] [address] Tristin Iyer M.D., Ph.D., Director of Laboratories , CLIA [id number] PREVIOUS SUGAR: IgG Cadott Ordering Provider: TONY SIMMONS Report Released Date/Time: Jul 13, 2024 01:49 PM Reporting Lab: [facility] [address] [facility] [address] Performing Lab: [facility] [address] [facility] ALPHA-1 GLOBULIN(SO-PB-STL) 0.4 g/dL H 0.2 [...] g/dL H Aug 02, 2024 11:53 AM [facility] IGA (STL) PLASMA Specimen Type: PLASM A Comment: No hemolysis noted. Ordering Provider: TONY SIMMONS Report Released Date/Time: Jul 13, 2024 01:49 PM Reporting Lab: [facility] [address] [place] [address] Performing Lab: [facility] [address] [place] [address] IGA (STL) 113 mg/dL 63-484 Aug 02, 2024 11:53 AM [facility] IGG (STL) PLASMA Specimen Type: PLASM A Comment: No hemolysis noted. Ordering Provider: TONY SIMMONS Report Released Date/Time: Jul 13, 2024 01:49 PM Reporting Lab: [facility] [address] [facility] [address] Performing Lab: [facility] [address] [place] [address] IGG (STL) 1898 mg/dL H 540-1822 Aug 02, 2024 11:53 AM [facility] TSH W/ REFLEX FT4 (STL) PLASMA Specimen Type: PLASMA No comment entered. Ordering Provider: TONY SIMMONS Report Released Date/Time: Jul 13, 2024 01:49 PM Reporting Lab: [place] [address] [place] [address] Performing Lab: [place] [address] [place] [phone] TSH 2.182 u[IU]/mL 0.47-5 Aug 02, 2024 11:53 AM [facility] IGM (STL) PLASMA Specimen Type: PLASM A Comment: No hemolysis noted. Ordering Provider: TONY SIMMONS Report Released Date/Time: Jul 13, 2024 01:49 PM Reporting Lab: [place] [address] [place] [phone] Performing Lab: [place] [address] [place] [phone] IGM (STL) 104 mg/dL 22-240 Aug 02, 2024 11:53 AM [facility] KAPPA/LAMBDA FREE LC PANEL (STL-PB) SERUM Spe cimen Type: SERUM No comment entered. Ordering Provider: TONY SIMMONS Report Released Date/Time: Jul 13, 2024 01:49 PM Reporting Lab: [place] [address] [facility] [address] Performing Lab: [address] [address] KAPPA FREE LC (STL) 102.7 mg/L H 2.4-20.7 LAMBDA FREE LC (STL) 32.2 mg/L H 4.2-27.7 KAPPA/LAMBDA RATIO (STL) 3.19 H 0.22-1. 74 Aug 02, 2024 11:53 AM [facility] COMPREHENSIVE METABOLIC PANEL PLASMA Specimen Type: PLASMA Comment: No hemolysis noted. Ordering Provider: TONY SIMMONS Report Released Date/Time: Jul 13, 2024 01:49 PM Reporting Lab: [address] [address] Performing Lab: [address] [address] CREATININE 0.82 mg/dL 0.7-1.3 UREA NITROGEN 12.2 [...] 96.3 >60 Aug 02, 2024 11:53 AM [facility] CBC BLOOD Specimen Type: BLOOD Comment: No Clots in specimen Ordering Provider: TONY SIMMONS Report Released Date/Time: Jul 13, 2024 01:49 PM Reporting Lab: [address] [address] Performing Lab: [address] [address] WBC 2.2 10*3/uL L 3.6-11.2 RBC 3.44 [...] L 2.10-8.00 Aug 01, 2024 10:10 AM [facility] GLUCOSE,BLOOD-poct (STL) BLOOD Specimen Type: BLOOD Comment: Test Performed by: [id number] Meter #: [id number] Ordering Provider: SUKHJINDER CHAHAL Report Released Date/Time: Aug 01, 2024 10:17 AM Reporting Lab: [address] [address] Performing Lab: [address] [address] GLUCOSE,BLOOD-poct (STL) 101 mg/dL H 72-99 Jul 27, 2024 01:54 PM [facility] TROPONIN I PLASMA Specimen Type: PLASM A Comment: No hemolysis noted. Ordering Provider: ELIZABETH COATES Report Released Date/Time: Jul 27, 2024 03:39 PM Reporting Lab: [address] [address] Performing Lab: [address] [address] TROPONIN I 0.011 ng/mL 0-0.033 Jul 27, 2024 01:54 PM [facility] BRAIN NATRIURETIC PEPTIDE PLASMA Specimen Type : PLASMA No comment entered. Ordering Provider: ELIZABETH COATES Report Released Date/Time: Jul 27, 2024 03:39 PM Reporting Lab: [address] [address] Performing Lab: [address] [address] BRAIN NATRIURETIC PEPTIDE 257.2 pg/mL H 0- 100 Jul 27, 2024 01:54 PM [facility] COMPREHENSIVE METABOLIC PANEL PLASMA Specimen Type: PLASMA Comment: No hemolysis noted. Ordering Provider: ELIZABETH COATES Report Released Date/Time: Jul 27, 2024 03:39 PM Reporting Lab: [address] [address] Performing Lab: [address] [address] CREATININE 0.70 mg/dL 0.7-1.3 UREA NITROGEN 7.4 [...] 101.0 >60 Jul 27, 2024 01:54 PM [facility] CBC BLOOD Specimen Type: BLOOD No comment entered. Ordering Provider: ELIZABETH COATES Report Released Date/Time: Jul 27, 2024 03:39 PM Reporting Lab: [address] [address] Performing Lab: [address] [address] WBC 3.2 10*3/uL L 3.6-11.2 RBC 3.12 [...] 10*3/uL 2.10-8.00 Jul 21, 2024 02:00 PM [facility] B12 SERUM Specimen Type: SERUM No comment entered. Ordering Provider: JORJE DENSON Report Released Date/Time: Jul 21, 2024 12:54 PM Reporting Lab: [facility] [address] [facility] [address] Performing Lab: [address] [address] B12 1584 pg/mL H 213-816 Jul 21, 2024 02:00 PM [facility] FOLATE (STL-MA) SERUM Specimen Type: SERUM No comment entered. Ordering Provider: JORJE DENSON Report Released Date/Time: Jul 21, 2024 12:54 PM Reporting Lab: [address] [address] Performing Lab: [address] [address] FOLATE (STL-MA) 9.1 ng/mL 7-20 Jul 21, 2024 02:00 PM [facility] IRON/TIBC PROFILE SERUM Specimen Type: SERUM No comment entered. Ordering Provider: JORJE DENSON Report Released Date/Time: Jul 21, 2024 12:54 PM Reporting Lab: [address] [phone] Performing Lab: [address] [phone] TIBC 243 ug/dL L 250-450 TRANSFERRIN 194 mg/dL 163-344 IRON SATURATION 20 20-50 IRON 49 ug/dL L 65-175 Jul 21, 2024 02:00 PM [facility] CBC BLOOD Specimen Type: BLOOD Comment: Manual differential performed 07/20/2024 No clots Ordering Provider: JORJE DENSON Report Released Date/Time: Jul 21, 2024 12:54 PM Reporting Lab: [address] [phone] Performing Lab: [address] [phone] WBC 5.6 10*3/uL 3.6-11.2 RBC 2.87 10*6/uL [...] H 1.0-7.0 Jul 20, 2024 08:55 PM [facility] PT/INR NEW ([facility]) PLASMA Specimen Type: PLAS MA No comment entered. Ordering Provider: AURA ZACARIAS Report Released Date/Time: Jul 18, 2024 01:30 PM Reporting Lab: [address] [phone] Performing Lab: [address] [phone] PROTIME 12.8 s H 9.4-12.5 INR VALUE 1.1 {INR} Jul 20, 2024 08:55 PM [facility] BASIC METABOLIC PANEL PLASMA Specimen Type: PL ASMA Comment: No hemolysis noted. Ordering Provider: AURA ZACARIAS Report Released Date/Time: Jul 18, 2024 01:30 PM Reporting Lab: [address] [phone] Performing Lab: [address] [phone] CREATININE 0.74 mg/dL 0.7-1.3 UREA NITROGEN 15.1 mg/dL 9.0-25.0 GLUCOSE 121 mg/dL H 72-99 SODIUM 130 meq/L L 136-145 POTASSIUM 3.7 meq/L 3.5-5 CHLORIDE 100 meq/L 98-107 CARBON DIOXIDE 20 meq/L L 22-31 CALCIUM 8.5 mg/dL 8.4-10.4 EGFR (CKD-EPI 2020) 99.3 >60 Jul 20, 2024 08:55 PM [facility] CBC BLOOD Specimen Type: BLOOD No comment entered. Ordering Provider: AURA ZACARIAS Report Released Date/Time: Jul 18, 2024 01:30 PM Reporting Lab: [address] [address] Performing Lab: [address] [address] WBC 5.1 10*3/uL 3.6-11.2 RBC 2.90 10*6/uL [...] 10*3/uL 2.10-8.00 Jul 20, 2024 01:13 PM [facility] CBC BLOOD Specimen Type: BLOOD No comment entered. Ordering Provider: AURA ZACARIAS Report Released Date/Time: Jul 18, 2024 01:30 PM Reporting Lab: [address] [address] Performing Lab: [address] [address] WBC 5.6 10*3/uL 3.6-11.2 RBC 3.11 10*6/uL [...] 10*3/uL 2.10-8.00 Jul 19, 2024 06:42 AM [facility] PT/INR NEW (L-MA) PLASMA Specimen Type: PLAS MA No comment entered. Ordering Provider: AURA ZACARIAS Report Released Date/Time: Jul 18, 2024 01:30 PM Reporting Lab: [address] [address] Performing Lab: [address] [address] PROTIME 16.4 s H 9.4-12.5 INR VALUE 1.5 {INR} Jul 19, 2024 06:42 AM [facility] BASIC METABOLIC PANEL PLASMA Specimen Type: PL ASMA Comment: No hemolysis noted. Ordering Provider: AURA ZACARIAS Report Released Date/Time: Jul 18, 2024 01:30 PM Reporting Lab: [address] [address] Performing Lab: [address] [address] CREATININE 0.94 mg/dL 0.7-1.3 UREA NITROGEN 23.8 mg/dL 9.0-25.0 GLUCOSE 87 mg/dL 72-99 SODIUM 129 meq/L L 136-145 POTASSIUM 3.4 meq/L L 3.5-5 CHLORIDE 102 meq/L 98-107 CARBON DIOXIDE 20 meq/L L 22-31 CALCIUM 8.1 mg/dL L 8.4-10.4 EGFR (CKD-EPI 2020) 88.9 >60 Jul 19, 2024 06:42 AM [facility] CBC BLOOD Specimen Type: BLOOD No comment entered. Ordering Provider: AURA ZACARIAS Report Released Date/Time: Jul 18, 2024 01:30 PM Reporting Lab: [facility] [address] [place] [address] Performing Lab: [address] [address] WBC 5.1 10*3/uL 3.6-11.2 RBC 2.45 10*6/uL [...] H 1.0-7.0 Jul 18, 2024 08:51 PM [facility] CBC BLOOD Specimen Type: BLOOD No comment entered. Ordering Provider: AURA ZACARIAS Report Released Date/Time: Jul 18, 2024 01:30 PM Reporting Lab: [address] [address] Performing Lab: [address] [address] WBC 6.2 10*3/uL 3.6-11.2 RBC 2.44 10*6/uL [...] 10*3/uL 2.10-8.00 Jul 18, 2024 04:19 PM [facility] CBC BLOOD Specimen Type: BLOOD No comment entered. Ordering Provider: AURA ZACARIAS Report Released Date/Time: Jul 18, 2024 01:30 PM Reporting Lab: [facility] [address] [place] [address] Performing Lab: [address] [address] WBC 6.1 10*3/uL 3.6-11.2 RBC 2.57 10*6/uL [...] 10*3/uL 2.10-8.00 Jul 18, 2024 06:32 AM [facility] LACTIC ACID (STL-PB) PLASMA Specimen Type: NEIL SMA No comment entered. Ordering Provider: CAMDEN PATTON Report Released Date/Time: Jul 17, 2024 07:38 PM Reporting Lab: [place] [address] Performing Lab: [address] [address] LACTIC ACID (L-PB) 1.3 mmol/L 0.5-2.0 Jul 18, 2024 06:32 AM [facility] PT/INR NEW (L-MA) PLASMA Specimen Type: PLAS MA No comment entered. Ordering Provider: CAMDEN PATTON Report Released Date/Time: Jul 17, 2024 07:38 PM Reporting Lab: [address] [address] Performing Lab: [address] [address] PROTIME 19.1 s H 9.4-12.5 INR VALUE 1.7 {INR} Jul 18, 2024 06:32 AM [facility] CBC BLOOD Specimen Type: BLOOD Comment: HGB Called to : Dr. Posadas MOD at: 0657 on: 07/18/24 by: NAWAF Critical Verbal Readback Performed Ordering Provider: CAMDEN PATTON Report Released Date/Time: Jul 17, 2024 07:38 PM Reporting Lab: [address] [address] Performing Lab: [address] [address] WBC 7.0 10*3/uL 3.6-11.2 RBC 2.04 10*6/uL [...] 10*3/uL 2.10-8.00 Jul 18, 2024 06:32 AM [facility] VANCOMYCIN (STL) PLASMA Specimen Type: PLASM A No comment entered. Ordering Provider: CAMDEN PATTON Report Released Date/Time: Jul 17, 2024 07:38 PM Reporting Lab: [address] [address] Performing Lab: [address] [address] VANCOMYCIN (STL) 5.0 ug/mL L 10-15 Jul 18, 2024 06:32 AM [facility] MAGNESIUM PLASMA Specimen Type: PLASM A Comment: No hemolysis noted. Ordering Provider: CAMDEN PATTON Report Released Date/Time: Jul 17, 2024 07:38 PM Reporting Lab: [address] [address] Performing Lab: [address] [address] MAGNESIUM 1.5 mg/dL L 1.6-2.6 Jul 18, 2024 06:32 AM [facility] PHOSPHOROUS PLASMA Specimen Type: PLASM A Comment: No hemolysis noted. Ordering Provider: CAMDEN PATTON Report Released Date/Time: Jul 17, 2024 07:38 PM Reporting Lab: [address] [address] Performing Lab: [address] [address] PHOSPHOROUS 2.2 mg/dL L 2.3-4.7 Jul 18, 2024 06:32 AM [facility] COMPREHENSIVE METABOLIC PANEL PLASMA Specimen Type: PLASMA Comment: No hemolysis noted. Ordering Provider: CAMDEN PATTON Report Released Date/Time: Jul 17, 2024 07:38 PM Reporting Lab: [address] [address] Performing Lab: [address] [address] CREATININE 1.08 mg/dL 0.7-1.3 UREA NITROGEN 40.5 [...] 75.2 >60 Jul 18, 2024 12:05 AM [facility] HGB,HCT,PLT BLOOD Specimen Type: BLOOD No comment entered. Ordering Provider: ROSA VARGAS Report Released Date/Time: Jul 17, 2024 09:07 PM Reporting Lab: [address] [address] Performing Lab: [address] [address] HGB 7.3 g/dL L 13.1-16.8 HCT 21.0 L 38.2-48.4 PLT 64 10*3/uL L 150-400 Jul 17, 2024 07:45 PM [facility] MRSA SURVL NARES DNA NARES Specimen Type: DSAH ES Comment: Qualitative real-time PCR test for [...] Jul 17, 2024 07:38 PM Reporting Lab: [address] [address] Performing Lab: [address] [address] MRSA SURVL NARES DNA Negative Negative Jul 17, 2024 07:36 PM [facility] GLUCOSE,BLOOD-poct (L) BLOOD Specimen Type: BLOOD Comment: Test Performed by: [id number] Meter #: [id number] Ordering Provider: CAMDEN PATTON Report Released Date/Time: Jul 17, 2024 07:48 PM Reporting Lab: [address] [address] Performing Lab: [address] [address] GLUCOSE,BLOOD-poct (STL) 98 mg/dL 72-99 Jul 17, 2024 07:35 PM [facility] BLOOD GAS PANEL ABG (L) VENOUS BLOOD Specimen Type : VENOUS BLOOD Comment: normalcy status - Below absolute low-off instrument scale Test Performed by: [id number] Meter #: [id number] Ordering Provider: CAMDEN PATTON Report Released Date/Time: Jul 17, 2024 07:37 PM Reporting Lab: [address] [address] Performing Lab: [address] [address] GEM PH 7.39 7.31-7.41 GEM PCO2 31 [...] TEMP 37.0 Jul 17, 2024 07:10 PM [facility] URINALYSIS W/ CX REFLEX (STL-PB) URINE Specim en Type: URINE No comment entered. Ordering Provider: CASEY BOONE Report Released Date/Time: Jul 17, 2024 04:24 PM Reporting Lab: [address] [address] Performing Lab: [address] [address] URINE COLOR Light-Yellow Yellow U.BILIRUBIN Negative mg/dL Negative U.PH 6.0 5.0-8.0 APPEARANCE Clear Clear U.NITRITE Negative mg/dL Negative URN.GLUCOSE Normal mg/dL Negative URN.PROTEIN Negative mg/dL URN.UROBILINOGEN Normal mg/dL Normal URN.BLOOD Negative mg/dL Negative-Trace URN.KETONES Trace mg/dL Negative-Trace URN.LEUK.EST. Negative mg/dL Negative-Tr april URN.SPECIFIC GRAVITY 1.029 Jul 17, 2024 06:25 PM [facility] RETICULOCYTE PANEL BLOOD Specimen Type: BLOOD No comment entered. Ordering Provider: CASEY BOONE Report Released Date/Time: Jul 17, 2024 06:13 PM Reporting Lab: [place] [address] [facility] [address] Performing Lab: [address] [address] RETIC RATIO 7.35 H 0.50-2.30 IRF 39.7 H 2.3-13.4 RETICULOCYTE HEMOGLOBIN EQUIVALENT 35.8 pg 28.2-36.6 RETIC COUNT,ABS 0.129 10*6/uL H 0.022-0.10 1 Jul 17, 2024 06:25 PM [facility] HAPTOGLOBIN (STL) PLASMA Specimen Type: PLASM A No comment entered. Ordering Provider: CASEY BOONE Report Released Date/Time: Jul 17, 2024 06:13 PM Reporting Lab: [place] [address] [facility] [address] Performing Lab: [address] [address] HAPTOGLOBIN (STL) 93 mg/dL 44-215 Jul 17, 2024 06:25 PM [facility] LDH PLASMA Specimen Type: PLASM A No comment entered. Ordering Provider: CASEY BOONE Report Released Date/Time: Jul 17, 2024 06:13 PM Reporting Lab: [address] [address] Performing Lab: [address] [address] LDH 305 U/L H 125-243 Jul 17, 2024 06:25 PM [facility] CBC BLOOD Specimen Type: BLOOD Comment: HGB Called to : Watson White at: [id number] on:[id number] by: KPM Critical Verbal Readback Performed Ordering Provider: CAMDEN PATTON Report Released Date/Time: Jul 17, 2024 07:09 PM Reporting Lab: [address] [address] Performing Lab: [address] [address] WBC 27.6 10*3/uL H 3.6-11.2 RBC 1.76 [...] H 2.10-8.00 Jul 17, 2024 04:59 PM [facility] BLOOD GAS PANEL ABG ([facility]) VENOUS BLOOD Specimen Type : VENOUS BLOOD Comment: Test Performed by: [id number] Meter #: [id number] Ordering Provider: CASEY BOONE Report Released Date/Time: Jul 17, 2024 05:00 PM Reporting Lab: [address] [address] Performing Lab: [address] [address] GEM PH 7.39 7.31-7.41 GEM PCO2 33 [...] TEMP 37.0 Jul 17, 2024 04:25 PM [facility] MAGNESIUM PLASMA Specimen Type: PLASM A Comment: No hemolysis noted. Ordering Provider: CASYE BOONE Report Released Date/Time: Jul 17, 2024 04:24 PM Reporting Lab: [address] [address] Performing Lab: [address] [address] MAGNESIUM 1.4 mg/dL L 1.6-2.6 Jul 17, 2024 04:25 PM [facility] PT/INR NEW (STL-MA) PLASMA Specimen Type: PLAS MA No comment entered. Ordering Provider: CASEY BOONE Report Released Date/Time: Jul 17, 2024 04:24 PM Reporting Lab: [address] [address] Performing Lab: [address] [address] PROTIME 25.3 s H 9.4-12.5 INR VALUE 2.3 {INR} Jul 17, 2024 04:25 PM [facility] COVID-19 DIAGNOSTIC (FLU/RSV)(STL) NASOPHARYNX Spec [...] Jul 17, 2024 04:24 PM Reporting Lab: [facility] [address] [facility] [address] Performing Lab: [address] [address] INFLUENZA A Negative Negative INFLUENZA B Negative Negative COVID-19 (STL-PB) Not Detected Not Detec nate RSV (Cepheid) NEGATIVE Negative Jul 17, 2024 04:25 PM [facility] COMPREHENSIVE METABOLIC PANEL PLASMA Specimen Type: PLASMA Comment: No hemolysis noted. Ordering Provider: CASEY BOONE Report Released Date/Time: Jul 17, 2024 04:24 PM Reporting Lab: [facility] [address] [facility] [address] Performing Lab: [address] [address] CREATININE 1.25 mg/dL 0.7-1.3 UREA NITROGEN 47.0 [...] 63.1 >60 Jul 17, 2024 04:25 PM [facility] CBC BLOOD Specimen Type: BLOOD No comment entered. Ordering Provider: CASEY BOONE Report Released Date/Time: Jul 17, 2024 04:24 PM Reporting Lab: [facility] [address] [facility] [address] Performing Lab: [address] [address] WBC 42.4 10*3/uL H 3.6-11.2 RBC 2.20 [...] H 2.10-8.00 Jul 13, 2024 12:39 PM [facility] PHOSPHOROUS PLASMA Specimen Type: PLASM A Comment: No hemolysis noted. Ordering Provider: TONY SIMMONS Report Released Date/Time: Jun 07, 2024 01:01 PM Reporting Lab: [facility] [address] [place] [address] Performing Lab: [address] [address] PHOSPHOROUS 2.4 mg/dL 2.3-4.7 Jul 13, 2024 12:39 PM [facility] TSH W/ REFLEX FT4 (STL) PLASMA Specimen Type: PLASMA No comment entered. Ordering Provider: TONY SIMMONS Report Released Date/Time: Jun 07, 2024 01:01 PM Reporting Lab: [address] [address] Performing Lab: [address] [address] TSH 1.431 u[IU]/mL 0.47-5 Jul 13, 2024 12:39 PM [facility] MAGNESIUM PLASMA Specimen Type: PLASM A Comment: No hemolysis noted. Ordering Provider: TONY SIMMONS Report Released Date/Time: Jun 07, 2024 01:01 PM Reporting Lab: [address] [address] Performing Lab: [address] [address] MAGNESIUM 2.0 mg/dL 1.6-2.6 Jul 13, 2024 12:39 PM [facility] COMPREHENSIVE METABOLIC PANEL PLASMA Specimen Type: PLASMA Comment: No hemolysis noted. Ordering Provider: TONY SIMMONS Report Released Date/Time: Jun 07, 2024 01:01 PM Reporting Lab: [address] [address] Performing Lab: [address] [address] CREATININE 0.75 mg/dL 0.7-1.3 UREA NITROGEN 21.3 [...] 98.9 >60 Jul 13, 2024 12:39 PM [facility] CBC BLOOD Specimen Type: BLOOD Comment: no clot Ordering Provider: TONY SIMMONS Report Released Date/Time: Jun 07, 2024 01:01 PM Reporting Lab: [address] [address] Performing Lab: [address] [address] WBC 3.0 10*3/uL L 3.6-11.2 RBC 3.83 [...] 10*3/uL 2.10-8.00 Jul 13, 2024 12:38 PM [facility] ALPHA-FETOPROTEIN(STL-PB) SERUM Specimen Type : SERUM No comment entered. Ordering Provider: CRYSTAL MASSEY Report Released Date/Time: Jul 04, 2024 03:26 PM Reporting Lab: [facility] [address] [facility] [address] Performing Lab: [place] [address] [facility] [address] ALPHA-FETOPROTEIN(STL-PB) 16.86 ng/mL H 1- 8.78 Jul 13, 2024 12:37 PM [facility] CARBOHYDRATE Ag SERUM Specimen Type: SERUM Comment: REFERENCE RANGE: <34 U/mL This test was performed using the Siemens chemiluminescent method. Values obtained from different assay methods cannot be used inter- changeably. CA 19-9 levels, regardless of value, should not be interpreted as absolute evidence of the presence or absence of disease. Test Performed by [facility], [facility], [address] [place] [address] Tristin Iyer M.D., Ph.D., Director of Laboratories , [place] [id number] Ordering Provider: CRYSTAL MASSEY Report Released Date/Time: Jul 04, 2024 03:28 PM Reporting Lab: [place] [id number] [facility] [address] Performing Lab: [address] CARBOHYDRATE Ag 61 H SEE BELOW Vital Signs: All taken on the encounter date This section contains inpatient and outpatient Vital Signs collected on the date of the Encounter. Date/Time Temperature Pulse Blood Pressure Respiratory Rate SP02 Pain Height Weight Body Mass Index Source Jul 13, 2024 01:32 PM 97.6 74 119/56 18 99 [facility] Social History: Smoking Status (Most current) and Tobacco Use (All prior to encounter date) This section includes the most current, and the historical, smoking and tobacco- related health factors from the [facility] facility where the Encounter took place. Current Smoking Status This section includes the most current smoking, or tobacco-related health factor, from the [facility] facility where the Encounter took place. Date/Time Current Smoking Status Comment Facil ity Jan 20, 2023 03:49 PM VA-TOBACCO FORMER USER [facility] Tobacco Use History This section includes a history of the smoking, or tobacco-related health factors, that were collected on or before the date of the Encounter. The data comes from the AR facility where the Encounter took place. Date/Time Smoking Status/Tobacco Use Comment F acility Jan 20, 2023 03:49 PM VA-TOBACCO QUIT 15 YRS OR MORE [facility] Feb 06, 2021 04:28 PM VA-TOBACCO FORMER USER [facility] Feb 06, 2021 04:28 PM AR-TOBACCO QUIT 15 YRS OR MORE [facility] Radiology Reports: +/- 30 days [...] the Encounter. The data comes from all [place] treatment facilities. Date/Time Radiology Report Provider Source Aug 10, 2024 02:[address] ABD PEL W/CONT & 3D: ABRAHAM HAWK [id number] -1955 M Exm Date: AUG 10, 2024@14:33 Req Phys: YASIR SANZ MD Pat Loc: [facility]-EMERGENCY DEPT 2ND SHIFT (R Img Loc: [facility]CT IMAGING [facility] Service: Unknown [facility], [address] [address] (Case [id number] COMPLETE) CT ABDOMEN AND PELVIS W/CONTRAST (CT Detailed) CPT:10370 Contrast Media : Non-ionic Iodinated Reason for Study: Abdominal pain, vomiting Clinical History: Responsible Attending: Svetlana Attending Contact Number: [phone] Resident Contact Number: Abdominal pain, vomiting Allergies listed in CPRS chart: Patient has answered NKA Creatinine:CREATININE 0.82 mg/dL 08/10/2024 11:30 /eGFR: STL EGFR (within one year). CREATININE 0.82 mg/dL (08/10/24 11:30) Wt: 152.1 lb [68.99 kg] (08/10/2024 11:31) History of: Renal failure, chronic or acute renal disease: NO Report Status: Verified Date Reported: AUG 10, 2024 Date Verified: AUG 10, 2024 Telephone Station Installer E-Sig:/ES/PETROS MCCORD Report: Case [id number]. CT ABDOMEN AND PELVIS W/CONTRAST. Gastrointestinal contrast: [...] hernias. Dictated by Kenneth Albright DO (radiology nurse). I, Petros Mccord, have reviewed the images and report and concur with these findings. Primary Interpreting Staff: PETROS MCCORD MD (Telephone Station Installer) Primary Interpreting Resident: KENNETH ALBRIGHT, Air Conditioning Specialist /PETROS REESE [facility] Aug 01, 2024 10:20 AM PET/CT TUMOR IMAGING (SKULL TO MID-THIGH)-P: ABRAHAM HAWK [id number] -1955 M Exm Date: AUG 01, 2024@10:20 Req Phys: TONY SIMMONS Loc: [facility]-ONCOLOGY [facility] (Req'g Loc) [facility] Loc: [facility]-PET-CT Service: [address] [address] (Case [id number] COMPLETE) PET/CT TUMOR SKULL BASE TO MID-T(NM Detailed) CPT:64218 CPT Modifiers : PS PET TUMOR SUBSQ TX STRATEGY Reason for Study: Nasopharyngeal cancer (Case [id number] COMPLETE) F-18 FLUORODEOXYGLUCOSE (FDG),PER(NM Detailed) CPT:A9552 Clinical History: Report Status: Verified Date Reported: AUG 01, 2024 Date Verified: AUG 01, 2024 Telephone Station Installer E-Sig:/ES/NATASHA LEIJA Report: PATIENT NAME: ABRAHAM HAWK. CASE #: [id number], [id number]. PROCEDURE: PET/CT study Indication: Nasopharyngeal cancer HISTORY: [...] lytic osseous lesion is noted within the rotep-oj-qltq. Impression: 1. The previous sites of FDG [...] NEEDED Primary Interpreting Staff: NATASHA LEIJA MD (Telephone Station Installer) /PFT NATASHA LEIJA [facility] Jul 27, 2024 03:41 PM CHEST PORTABLE: ABRAHAM HAWK [id number] -1955 M Exm Date: JUL 27, 2024@15:41 Req Phys: GENDIELIZABETH Pat Loc: [facility]ERG[facility]Y DEPT 2ND SHIFT (R Img Loc: [facility]-MAIN RADIOLOGY SUITE Service: Unknown [facility], [facility] [address] [place] [address] (Case [id number] COMPLETE) CHEST PORTABLE (RAD Detailed) CPT:59617 Proc Modifiers : Portable Reason for Study: sob Clinical History: Report Status: Verified Date Reported: JUL 27, 2024 Date Verified: JUL 27, 2024 Telephone Station Installer E-Sig:/ES/Sol Abraham MD Report: CASE [id number]. AP portable view chest. COMPARISON: Chest x-ray [...] Report dictated by Krystian Sultana D.O. (radiology nurse) I, Sol Abraham, have reviewed the images and report and concur with these findings. Primary Interpreting Staff: Sol Abraham MD, Radiologist (Telephone Station Installer) Primary Interpreting Resident: Krystian Sultana D.O., Resident Physician /SOL DHALIWAL [facility] Jul 17, 2024 06:[address] ABD PEL W/CONT & 3D: ABRAHAM HAWKR [id number] -1955 M Exm Date: JUL 17, 2024@18:18 Req Phys: CASEY BOONE Pat Loc: 4-C SICU-[facility]/07-17-2024@19:47 Img Loc: [facility] IMAGING [facility] Service: Unknown [facility], [facility] [address] [place] [address] (Case [id number] COMPLETE) CT ABDOMEN AND PELVIS W/CONTRAST (CT Detailed) CPT:68459 Contrast Media : Non-ionic Iodinated Reason for Study: septic shock, abd pain Clinical History: Responsible Attending: Nils Attending Contact Number: [phone] Resident Contact Number: Septic shock, Patient with [...] 17, 2024 Date Verified: JUL 17, 2024 Telephone Station Installer E-Sig: Report: CT THORAX W/CONT (PE) [PRINTSET], CT ABDOMEN AND PELVIS W/CONTRAST [PRINTSET] Comparison: 03/17/2022, 04/23/2024 Clinical History: RO PE The study was protocoled and supervised at the local [place] facility. Chest 12 series and 1585 images were subsequently received by the [place] National Teleradiology Program (NTP) for interpretation. Abdomen and pelvis 9 series and 1365 images were subsequently received by the [place] [facility] Teler[facility] (NTP) for interpretation. Total [...] from 09/12/2023. READING PHYSICIAN: Guilherme Talbert M.D. -[phone] 07/17/2024 17:44 [facility] [place] National Teleradiology Program [phone] (For Medical Practitioner Use Only) Attention Patients / Veterans: If you have questions or concerns about these test results, please contact your ordering provider or primary care team. Primary Interpreting Staff: RADIOLOGY,OUTSIDE SERVICE, Staff Physician / RADIOLOGY,OUTSIDE SERVICE [facility] Jul 17, 2024 06:[address] PE CHEST W/3D: ABRAHAM HAWK [id number] -1955 M Ex Date: JUL 17, 2024@18:17 Req Phys: CASEY BOONE Loc: 4-C SICU-[facility]/07-17-2024@19:47 Img Loc: [facility] IMAGING [facility] Service: Unknown [facility], [facility] [address] [place] [address] (Case [id number] COMPLETE) CT THORAX W/CONT (PE) (CT Detailed) CPT:60185 Contrast Media : unspecified contrast media Reason for Study: RO PE Clinical History: Responsible Attending: Nils Attending Contact Number: [phone] Resident Contact Number: Patient with HCC and [...] 17, 2024 Date Verified: JUL 17, 2024 Telephone Station Installer E-Sig: Report: CT THORAX W/CONT (PE) [PRINTSET], CT ABDOMEN AND PELVIS W/CONTRAST [PRINTSET] Comparison: 03/17/2022, 04/23/2024 Clinical History: RO PE The study was protocoled and supervised at the local [place] facility. Chest 12 series and 1585 images were subsequently received by the [place] National Teleradiology [facility] (NTP) for interpretation. Abdomen and pelvis 9 series and 1365 images were subsequently received by the [place] National Teleradiology [facility] (NTP) for interpretation. Total [...] from 09/12/2023. READING PHYSICIAN: Guilherme Talbert M.D. -[phone] 07/17/2024 17:44 [facility] [place] National Teleradiology Program [phone] (For Medical Practitioner Use Only) Attention Patients / Veterans: If you have questions or concerns about these test results, please contact your ordering provider or primary care team. Primary Interpreting Staff: RADIOLOGY,OUTSIDE SERVICE, Staff Physician / RADIOLOGY,OUTSIDE SERVICE [facility] Pathology Reports: +/- 30 days of [...] the Encounter. The data comes from all [place] treatment facilities. Date/Time Pathology Report Provider Source Aug 11, 2024 06:00 AM LR MICROBIOLOGY RE PORT: Accession [UID]: [id number] [[id number]] Received: Aug 11, 2024@06:19 Collection sample: Mario Alberto JONESD. BOTTLE Collection date: Aug 11, 2024 06:00 Site/Specimen: BLOOD Provider: GILSON OG Test(s) ordered: BLOOD CULT (SET 1)............ completed: Aug 17, 2024 10:06 * BACTERIOLOGY FINAL REPORT => Aug 17, 2024 10:22 TECH CODE: [id number] Bacteriology Remark(s): 08.17.24 KAA Culture shows NO GROWTH IN 6 DAYS =--=--=--=--=--=--=--=--=--= --=--=--=--=--=--=--=--=--=- -=--=--=--=--=--=--=-- Performing Laboratory: Bacteriology Report Performed By: [facility] [address] [place] [address] CLIA# [id number] [address] [facility] [address] [place] [address] [facility] Jul 17, 2024 05:10 PM LR MICROBIOLOGY RE PORT: Accession [UID]: [id number] [[id number]] Received: Jul 17, 2024@17:30 Collection sample: Mario Alberto Jones BLD. BOTTLE (SET 2)Collection date: Jul 17, 2024 17:10 Site/Specimen: BLOOD Provider: CASEY BOONE Test(s) ordered: BLOOD CULT (SET 2)............ completed: Jul 23, 2024 14:26 * BACTERIOLOGY FINAL REPORT => Jul 23, 2024 14:28 TECH CODE: [id number] Bacteriology Remark(s): CULTURE IS NEGATIVE TO DATE, ALL POSITIVES ARE ROUTINELY CALLED. [employer] Culture shows NO GROWTH IN 6 DAYS. 07/23/24 KI =--=--=--=--=--=--=--=--=--= --=--=--=--=--=--=--=--=--=- -=--=--=--=--=--=--=-- Performing Laboratory: Bacteriology Report Performed By: [address] CLIA# [id number] [address] [address] JULISSA [facility]OWN [facility] Jul 17, 2024 05:10 PM MICROBIOLOGY RE PORT: Accession [UID]: [id number] [[id number]] Received: Jul 17, 2024@17:30 Collection sample: B D BLD. BOTTLE Collection date: Jul 17, 2024 17:10 Site/Specimen: BLOOD Provider: CASEY BOONE Test(s) ordered: BLOOD CULT (SET 1)............ completed: Jul 23, 2024 14:26 * BACTERIOLOGY FINAL REPORT => Jul 23, 2024 14:28 [facility] CODE: [id number] Bacteriology Remark(s): CULTURE IS NEGATIVE TO DATE, ALL POSITIVES ARE ROUTINELY CALLED. KI Culture shows NO GROWTH IN 6 DAYS. 07/23/24 KI =--=--=--=--=--=--=--=--=--= --=--=--=--=--=--=--=--=--=- -=--=--=--=--=--=--=-- Performing Laboratory: Bacteriology Report Performed By: [address] CLIA# [id number] [address] [address] JULISSA BROWN [facility] Encounter Notes: All associated encounter notes This section contains the clinical notes associated to the Encounter. Date/Time Encounter Note(s) Provider Source Jul 13, 2024 02:00 PM SOCIAL WORK E & M NOTE: LOCAL TITLE: BRIEF ASSESSMENT [facility] STANDARD TITLE: SOCIAL WORK E & M NOTE DATE OF NOTE: JUL 13, 2024@14:00 ENTRY DATE: JUL 13, 2024@14:01:04 AUTHOR: ANA IBRAHIM EXP COSIGNER: URGENCY: STATUS: COMPLETED Name: ABRAHAM HAKW Address: [facility] [address] [place] [address] AGE: 68 SEX: MALE RACE: WHITE MARITAL STATUS: for 40 yrs. BRANCH OF SERVICE: [employer] 03/25/1975 TO 07/01/1976 War time: Post[place] Service Connected: NO Rated Disabilities: NONE STATED INCOME: EMPLOYMENT TOTAL MONTHLY INCOME: at poverty line INSURANCE: Medicare A and B with [employer] FAMILY/NOK/MINIBUS DRIVER: NAME: JEOVANNY HAWK () [address] [place], [place] [address] Phone number: SURROGATE DECISION MAKER: NONE DIAGNOSIS: STAGE II DEALMAKER SCC CANCER HISTORY OF MENTAL ILLNESS: Denies SI/HI: Denies HISTORY OF SUBSTANCE ABUSE: denies all hard drugs; Admits to smoking marijuana, daily. HISTORY OF ALCOHOL ABUSE: Denies alcohol abuse TOBACCO USE: Denies COGNITIVE BEHAVIORAL STATUS: aox4; appropriate mood and affect PATIENT COPING WITH DIAGNOSIS: Yes DOES PATIENT HAVE ADEQUATE FAMILY/SOCIAL SUPPORT: Yes PATIENT DRIVES: Yes SPOUSE/SIGNIFICANT OTHER DRIVES: Yes LIVING ARRANGEMENT: farm house with IS YOUR LIVING ARRANGEMENT SAFE AND FREE OF ANY TYPE OF DOMESTIC VIOLENCE? Yes UTILITIES: all on APPETITE: poo, chronic problem CHEWING/SWALLOWING: difficulty chewing and swallowing WEIGHT: stable; claims he drinks 4 Boost daily and other supplements ARE YOU EXPERIENCING FOOD INSECURITY? NO We would like to offer you nutrition counseling, are you interested? ? No FUNCTIONAL STATUS AT BASELINE: 0= Independent 1= Assistance 2= Dependent IS INDEPENDENT ON ALL ADLS AND IADLS IF ASSISTS OR DEPENDENCE; WHO PROVIDES THE SUPPORT: n/a CAREGIVER STRENGTHS/LIMITATIONS: n/a DURABLE MEDICAL EQUIPMENT IN HOME: NONE COMMUNITY RESOURCES UTILIZED: NONE ADVANCED DIRECTIVE/ORGAN DONATION: Considering; claims to have all kind of forms at home, and is contemplating completing one. ORGAN DONATION: EDUATION PROVIDED TO PATIENT: Yes ARE YOU EXPERIENCING ANY EXCESIVE STRESS? NO ARE YOU EXPERIENCING ANY STRESS THAT COULD AFFECT OR INTERFERE WITH ATTENDING YOUR TREATMENT OR FOLLOWING MEDICAL RECOMMENDATIONS? NO SOCIAL WORK ASSESSMENT: Met with the at [facility] treatment room. appeared aox4; mood and affect was appropriate. appeared fairly groomed and dressed appropriately. came to clinic alone, ambulating independently and with steady gait. Transportation was arranged by the . is diagnosed with STAGE II DEALMAKER SCC CANCE. He is 68 yo, White male, for 40 yrs. He served in the [employer] post[place]. He still employed, and appears to have a very active life-style. Lives in a farm house. Totally independent with all adls and iadls. Per he takes care of animals and required chores. Per he has no excessive stress nor issues that could interfere with medical tx. appears to have a good understanding of tx plan. He plans to drive to clinic. Chemo is every three weeks/ INTERVENTION/PLAN: Sw completed a Brief Assessment. Sw discussed AD; plans to complete his own document at his own time. Sw provided education on the role of Sw in clinic. INFORMATION PROVIDED/PLANS MADE WITH: Length of visit: 30 min. Care Coordination time outside of visit: 0 Chart Review time: 5 min. /loly/ KEISHA AGUILAR,CUTTER BARREL DRUM TRADE PROMOTION ANALYST, [facility] Signed: 07/13/2024 14:20 ANA IBRAHIM [facility]
--- OUTSIDE RECORDS SUMMARY | 2024-10-08 17:08 | XMS_ITS | Encounter Summary ---
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 Date/Time Encounter Type Encounter Description Reason Provider Source Jul 27, 2024 03:14 PM Outpatient Encounter EMERGENCY DEPT GONZALO PERDOMO Encounter Template Text not used by [place] Plan of Treatment: Future Appointments (+ 6 months) and Future Tests (+/- 45 days) The Plan of Treatment section includes future care activities for the patient [facility] [place] [facility] This section includes future appointments and future orders which are active, pending or scheduled. Future Appointments This section includes appointments that were scheduled to occur 6 months from the date of the Encounter, up to a maximum of 20 appointments. The data comes from all [place] treatment facilities. Appointment Date/Time Appointment Type Appointme nt Facility Name Aug 01, 2024 10:15 AM AMBULATORY - NONE [facility] Aug 02, 2024 11:30 AM AMBULATORY - MEDICINE [facility] Aug 02, 2024 11:31 AM AMBULATORY - MEDICINE [facility] Aug 10, 2024 11:00 AM AMBULATORY - MEDICINE [facility] Aug 10, 2024 11:31 AM AMBULATORY - MEDICINE [facility] Aug 10, 2024 11:59 AM AMBULATORY - MEDICINE [facility] Aug 16, 2024 10:00 AM AM[facility]ULATORY - MEDICINE [facility] Aug 17, 2024 08:30 AM AMBULATORY - MEDICINE [facility] Aug 17, 2024 09:00 AM AMBULATORY - MEDICINE [facility] Aug 17, 2024 09:30 AM AMBULATORY - MEDICINE [facility] Aug 23, 2024 12:00 PM AMBULATORY - NONE [facility] Aug 31, 2024 02:00 PM AMBULATORY - MEDICINE [facility] Sep 07, 2024 11:00 AM AMBULATORY - MEDICINE [facility] Sep 07, 2024 01:00 PM AMBULATORY - MEDICINE [facility] Oct 15, 2024 03:00 PM AMBULATORY - SURGERY [facility] Oct 19, 2024 02:00 PM AMBULATORY - NONE [facility] Active, Pending, and Scheduled Orders This section includes a listing of several types of active, pending, and scheduled orders, including clinic medications orders, diagnostic test orders, procedure orders and consult orders; where the start date of the order is 45 days before the date of the Encounter or 45 days after the date of theEncounter. The data comes from all [facility]. Test Date/Time Test Type Test Details Facility Name Jul 17, 2024 12:00 AM Laboratory - Blood Bank Order RED BLOOD CELLS - LAB VBECS - NO SPECIMEN REQUIRED [facility] Jul 17, 2024 12:00 AM Laboratory - Blood Bank Order FRESH FROZEN PLASMA - LAB VBECS - NO SPECIMEN REQUIRED [facility] Jul 17, 2024 06:13 PM Laboratory - Blood Bank Order DIRECT ANTIGLOBULIN TEST - LAB BLOOD STAT [facility] Jul 17, 2024 06:13 PM Laboratory - Blood Bank Order TYPE & SCREEN - LAB BLOOD [facility] Jul 18, 2024 12:00 AM Laboratory - Blood Bank Order PLATELETS - LAB VBECS - NO SPECIMEN REQUIRED [facility] Aug 10, 2024 12:00 AM Laboratory - Blood Bank Order RED BLOOD CELLS - LAB VBECS - NO SPECIMEN [facility]QUIRED [facility] Aug 10, 2024 02:00 PM Laboratory - Blood Bank Order TYPE & SCREEN - LAB BLOOD [facility] Aug 10, 2024 05:43 PM Laboratory - Chemistry Order LIPASE GREEN LI/HEP BLD/PLAS PLASMA STAT I ONCE [facility] Aug 10, 2024 05:44 PM Laboratory - Microbiology Order BLOOD CULT (SET 2) B D BLD. BOTTLE (SET 2) BLOOD JOANN I NOW [facility] Aug 11, 2024 02:00 AM Laboratory - Chemistry Order CBC BLOOD [facility] Aug 14, 2024 02:00 AM Laboratory - Chemistry Order CBC BLOOD [facility] Aug 15, 2024 02:00 AM Laboratory - Chemistry Order CBC BLOOD [facility] Aug 16, 2024 12:00 AM Laboratory - Chemistry Order CBC BLOOD [facility] Aug 16, 2024 08:00 PM Laboratory - Chemistry Order CBC BLOOD [facility] Aug 17, 2024 08:00 PM Laboratory - Chemistry Order CBC BLOOD [facility] Lab Results: +/- 30 days of the [...] Type Comment Aug 17, 2024 03:34 PM [facility] TSH W/ REFLEX FT4 (STL) PLASMA Specimen Type: PLASMA No comment entered. Ordering Provider: TONY SIMMONS Report Released Date/Time: Aug 10, 2024 12:01 PM Reporting Lab: [address] [address] Performing Lab: [address] [address] TSH 4.570 u[IU]/mL 0.47-5 Aug 17, 2024 03:34 PM [facility] COMPREHENSIVE METABOLIC PANEL PLASMA Specimen Type: PLASMA Comment: No hemolysis noted. Ordering Provider: TONY SIMMONS Report Released Date/Time: Aug 10, 2024 12:01 PM Reporting Lab: [address] [address] Performing Lab: [address] [address] CREATININE 0.85 mg/dL 0.7-1.3 UREA NITROGEN 11.5 [...] 95.2 >60 Aug 17, 2024 03:34 PM [facility] CBC BLOOD Specimen Type: BLOOD Comment: No Clots Ordering Provider: TONY SIMMONS Report Released Date/Time: Aug 10, 2024 12:01 PM Reporting Lab: [address] [address] Performing Lab: [address] [address] WBC 5.0 10*3/uL 3.6-11.2 RBC 2.83 10*6/uL [...] 4.9 1.0-7.0 Aug 15, 2024 07:20 AM [facility] CBC BLOOD Specimen Type: BLOOD Comment: No clots detected in specimen. Ordering Provider: CASH CLOUD Report Released Date/Time: Aug 12, 2024 01:47 PM Reporting Lab: [address] [place] [address] Performing Lab: [address] [address] WBC 4.9 10*3/uL 3.6-11.2 RBC 2.93 10*6/uL [...] 10*3/uL 2.10-8.00 Aug 15, 2024 04:54 AM [facility] GLUCOSE,BLOOD-poct (STL) BLOOD Specimen Type: BLOOD Comment: Test Performed by: [id number] Meter #: [id number] Ordering Provider: DEIRDRE WILD Report Released Date/Time: Aug 15, 2024 05:21 AM Reporting Lab: [address] [address] Performing Lab: [address] [address] GLUCOSE,BLOOD-poct (STL) 112 mg/dL H 72-99 Aug 14, 2024 08:30 PM [facility] CRP PLASMA Specimen Type: PLASM A No comment entered. Ordering Provider: CASH CLOUD Report Released Date/Time: Aug 12, 2024 10:14 AM Reporting Lab: [facility] [address] [facility] [address] Performing Lab: [facility] [address] [facility] [address] CRP 0.7 mg/dL H 0-0.5 Aug 14, 2024 08:30 PM [facility] CBC BLOOD Specimen Type: BLOOD No comment entered. Ordering Provider: GILSON OG Report Released Date/Time: Aug 10, 2024 04:01 PM Reporting Lab: [place] [address] [address] [facility] [address] Performing Lab: [address] [address] WBC 4.6 10*3/uL 3.6-11.2 RBC 2.83 10*6/uL [...] 10*3/uL 2.10-8.00 Aug 14, 2024 07:54 PM [facility] GLUCOSE,BLOOD-poct (STL) BLOOD Specimen Type: BLOOD Comment: Test Performed by: [id number] Meter #: [id number] Ordering Provider: DEIRDRE WILD Report Released Date/Time: Aug 14, 2024 08:15 PM Reporting Lab: [address] [address] Performing Lab: [address] [address] GLUCOSE,BLOOD-poct (STL) 112 mg/dL H 72-99 Aug 14, 2024 04:10 PM [facility] GLUCOSE,BLOOD-poct (STL) BLOOD Specimen Type: BLOOD Comment: Test Performed by: [id number] Meter #: [id number] Ordering Provider: DEIRDRE WILD Report Released Date/Time: Aug 14, 2024 04:43 PM Reporting Lab: [address] [address] Performing Lab: [address] [address] GLUCOSE,BLOOD-poct (STL) 115 mg/dL H 72-99 Aug 14, 2024 02:05 PM [facility] COMPREHENSIVE METABOLIC PANEL PLASMA Specimen Type: PLASMA Comment: No hemolysis noted. Ordering Provider: GILSON OG Report Released Date/Time: Aug 14, 2024 06:56 AM Reporting Lab: [address] [address] Performing Lab: [address] [address] CREATININE 0.75 mg/dL 0.7-1.3 UREA NITROGEN 9.3 [...] 98.9 >60 Aug 14, 2024 02:05 PM [facility] CBC BLOOD Specimen Type: BLOOD Comment: No platelet clots or clumping detected. Ordering Provider: GILSON OG Report Released Date/Time: Aug 10, 2024 04:01 PM Reporting Lab: [facility] [address] [facility] [address] Performing Lab: [facility] [address] [facility] [address] WBC 4.6 10*3/uL 3.6-11.2 RBC 3.06 10*6/uL [...] 10*3/uL 2.10-8.00 Aug 14, 2024 10:12 AM [facility] GLUCOSE,BLOOD-poct (STL) BLOOD Specimen Type: BLOOD Comment: Test Performed by: [id number] Meter #: [id number] Ordering Provider: DEIRDRE WILD Report Released Date/Time: Aug 14, 2024 10:13 AM Reporting Lab: [place] [address] Performing Lab: [place] [phone] GLUCOSE,BLOOD-poct ([facility]) 112 mg/dL H 72-99 Aug 14, 2024 09:20 AM [facility] PT/INR NEW ([facility]) PLASMA Specimen Type: PLAS MA No comment entered. Ordering Provider: GILSON OG Report Released Date/Time: Aug 14, 2024 09:06 AM Reporting Lab: [address] [address] Performing Lab: [place] [phone] PROTIME 13.6 s H 9.4-12.5 INR VALUE 1.2 {INR} Aug 14, 2024 06:51 AM [facility] CBC BLOOD Specimen Type: BLOOD No comment entered. Ordering Provider: CASH CLOUD Report Released Date/Time: Aug 12, 2024 01:47 PM Reporting Lab: [address] [address] Performing Lab: [address] [address] WBC 3.8 10*3/uL 3.6-11.2 RBC 2.56 10*6/uL [...] 10*3/uL 2.10-8.00 Aug 14, 2024 06:03 AM [facility] GLUCOSE,BLOOD-poct (STL) BLOOD Specimen Type: BLOOD Comment: Test Performed by: [id number] Meter #: [id number] Ordering Provider: DEIRDRE WILD Report Released Date/Time: Aug 14, 2024 06:07 AM Reporting Lab: [address] [address] Performing Lab: [address] [address] GLUCOSE,BLOOD-poct (STL) 114 mg/dL H 72-99 Aug 13, 2024 09:11 PM [facility] GLUCOSE,BLOOD-poct (STL) BLOOD Specimen Type: BLOOD Comment: Test Performed by: [id number] Meter #: [id number] Ordering Provider: DEIRDRE WILD Report Released Date/Time: Aug 13, 2024 09:40 PM Reporting Lab: [address] [address] Performing Lab: [address] [address] GLUCOSE,BLOOD-poct (STL) 160 mg/dL H 72-99 Aug 13, 2024 07:10 PM [facility] COMPREHENSIVE METABOLIC PANEL PLASMA Specimen Type: PLASMA Comment: No hemolysis noted. Ordering Provider: GILSON OG Report Released Date/Time: Aug 14, 2024 07:03 AM Reporting Lab: [facility] [address] [facility] [address] Performing Lab: [address] [address] CREATININE 0.75 mg/dL 0.7-1.3 UREA NITROGEN 10.3 [...] 98.9 >60 Aug 13, 2024 07:10 PM [facility] CRP PLASMA Specimen Type: PLASM A No comment entered. Ordering Provider: CASH CLOUD Report Released Date/Time: Aug 12, 2024 10:14 AM Reporting Lab: [facility] [address] [facility] [address] Performing Lab: [facility] [address] [facility] [address] CRP 0.7 mg/dL H 0-0.5 Aug 13, 2024 07:10 PM [facility] CBC BLOOD Specimen Type: BLOOD No comment entered. Ordering Provider: GILSON OG Report Released Date/Time: Aug 10, 2024 04:01 PM Reporting Lab: [facility] [address] [facility] [address] Performing Lab: [address] [address] WBC 5.3 10*3/uL 3.6-11.2 RBC 2.67 10*6/uL [...] 10*3/uL 2.10-8.00 Aug 13, 2024 04:35 PM [facility] GLUCOSE,BLOOD-poct (STL) BLOOD Specimen Type: BLOOD Comment: Test Performed by: [id number] Meter #: [id number] Ordering Provider: DEIRDRE WILD Report Released Date/Time: Aug 13, 2024 05:18 PM Reporting Lab: [address] [address] Performing Lab: [address] [address] GLUCOSE,BLOOD-poct (STL) 113 mg/dL H 72-99 Aug 13, 2024 02:36 PM [facility] CBC BLOOD Specimen Type: BLOOD No comment entered. Ordering Provider: GILSON OG Report Released Date/Time: Aug 10, 2024 04:01 PM Reporting Lab: [address] [address] Performing Lab: [address] [address] WBC 5.8 10*3/uL 3.6-11.2 RBC 2.77 10*6/uL [...] 10*3/uL 2.10-8.00 Aug 13, 2024 11:37 AM [facility] GLUCOSE,BLOOD-poct (STL) BLOOD Specimen Type: BLOOD Comment: Test Performed by: [id number] Meter #: [id number] Ordering Provider: DEIRDRE WILD Report Released Date/Time: Aug 13, 2024 11:38 AM Reporting Lab: [address] [address] Performing Lab: [address] [address] GLUCOSE,BLOOD-poct (STL) 131 mg/dL H 72-99 Aug 13, 2024 08:06 AM [facility] CBC BLOOD Specimen Type: BLOOD Comment: no clot Ordering Provider: CASH CLOUD Report Released Date/Time: Aug 12, 2024 01:47 PM Reporting Lab: [address] [address] Performing Lab: [address] [address] WBC 3.0 10*3/uL L 3.6-11.2 RBC 2.61 [...] 10*3/uL 2.10-8.00 Aug 13, 2024 04:45 AM [facility] GLUCOSE,BLOOD-poct (STL) BLOOD Specimen Type: BLOOD Comment: Test Performed by: [id number] Meter #: [id number] Ordering Provider: DEIRDRE WILD Report Released Date/Time: Aug 13, 2024 06:18 AM Reporting Lab: [place] [phone] Performing Lab: [address] [address] GLUCOSE,BLOOD-poct (STL) 139 mg/dL H 72-99 Aug 12, 2024 10:10 PM [facility] GLUCOSE,BLOOD-poct (STL) BLOOD Specimen Type: BLOOD Comment: Test Performed by: [id number] Meter #: [id number] Ordering Provider: DEIRDRE WILD Report Released Date/Time: Aug 12, 2024 10:50 PM Reporting Lab: [address] [address] Performing Lab: [address] [address] GLUCOSE,BLOOD-poct (STL) 105 mg/dL H 72-99 Aug 12, 2024 08:48 PM [facility] CBC BLOOD Specimen Type: BLOOD Comment: SEE PREVIOUS DIFFERENTIAL ON 08/12/24 @ 1807 Ordering Provider: GILSON OG Report Released Date/Time: Aug 10, 2024 04:01 PM Reporting Lab: [address] [address] Performing Lab: [address] [address] WBC 5.0 10*3/uL 3.6-11.2 RBC 2.78 10*6/uL [...] 6.5 1.0-7.0 Aug 12, 2024 08:48 PM [facility] CRP PLASMA Specimen Type: PLASM A No comment entered. Ordering Provider: CASH CLOUD Report Released Date/Time: Aug 12, 2024 10:14 AM Reporting Lab: [place] [address] Performing Lab: [place] [address] CRP 0.6 mg/dL H 0-0.5 Aug 12, 2024 04:51 PM [facility] GLUCOSE,BLOOD-poct (STL) BLOOD Specimen Type: BLOOD Comment: Test Performed by: [id number] Meter #: [id number] Ordering Provider: DEIRDRE WILD Report Released Date/Time: Aug 12, 2024 05:07 PM Reporting Lab: [place] [address] Performing Lab: [place] [phone] GLUCOSE,BLOOD-poct (STL) 135 mg/dL H 72-99 Aug 12, 2024 02:33 PM [facility] CBC BLOOD Specimen Type: BLOOD No comment entered. Ordering Provider: GILSON OG Report Released Date/Time: Aug 10, 2024 04:01 PM Reporting Lab: [address] [address] Performing Lab: [place] [phone] WBC 4.0 10*3/uL 3.6-11.2 RBC 2.56 10*6/uL [...] 10*3/uL 2.10-8.00 Aug 12, 2024 11:51 AM [facility] GLUCOSE,BLOOD-poct (STL) BLOOD Specimen Type: BLOOD Comment: Test Performed by: [id number] Meter #: [id number] Ordering Provider: DEIRDRE WILD Report Released Date/Time: Aug 12, 2024 12:26 PM Reporting Lab: [address] [address] Performing Lab: [address] [address] GLUCOSE,BLOOD-poct (STL) 139 mg/dL H 72-99 Aug 12, 2024 07:35 AM [facility] CBC BLOOD Specimen Type: BLOOD Comment: prev diff 08/11/24. Ordering Provider: GILSON OG Report Released Date/Time: Aug 10, 2024 04:01 PM Reporting Lab: [address] [address] Performing Lab: [address] [address] WBC 3.0 10*3/uL L 3.6-11.2 RBC 2.54 [...] 0.00-0. 20 Aug 12, 2024 05:49 AM [facility] GLUCOSE,BLOOD-poct (STL) BLOOD Specimen Type: BLOOD Comment: Test Performed by: [id number] Meter #: [id number] Ordering Provider: DEIRDRE WILD Report Released Date/Time: Aug 12, 2024 05:50 AM Reporting Lab: [address] [address] Performing Lab: [address] [address] GLUCOSE,BLOOD-poct (STL) 112 mg/dL H 72-99 Aug 12, 2024 01:45 AM [facility] CBC BLOOD Specimen Type: BLOOD Comment: SEE PREVIOUS DIFFERENTIAL ON 08/12/24 @ 0239 [facility] Ordering Provider: GILSON OG Report Released Date/Time: Aug 10, 2024 04:01 PM Reporting Lab: [address] [address] Performing Lab: [address] [address] WBC 2.6 10*3/uL L 3.6-11.2 RBC 2.42 [...] 6.4 1.0-7.0 Aug 11, 2024 09:25 PM [facility] CBC BLOOD Specimen Type: BLOOD No comment entered. Ordering Provider: GILSON OG Report Released Date/Time: Aug 10, 2024 04:01 PM Reporting Lab: [address] [address] Performing Lab: [address] [address] WBC 3.6 10*3/uL 3.6-11.2 RBC 2.54 10*6/uL [...] 10*3/uL 2.10-8.00 Aug 11, 2024 09:17 PM [facility] GLUCOSE,BLOOD-poct (STL) BLOOD Specimen Type: BLOOD Comment: Test Performed by: [id number] Meter #: [id number] Ordering Provider: DEIRDRE WILD Report Released Date/Time: Aug 11, 2024 09:21 PM Reporting Lab: [address] [address] Performing Lab: [address] [address] GLUCOSE,BLOOD-poct (STL) 167 mg/dL H 72-99 Aug 11, 2024 04:42 PM [facility] CBC BLOOD Specimen Type: BLOOD No comment entered. Ordering Provider: YVONNE HARRISON Report Released Date/Time: Aug 11, 2024 04:41 PM Reporting Lab: [address] [address] Performing Lab: [address] [address] WBC 4.0 10*3/uL 3.6-11.2 RBC 2.74 10*6/uL [...] 10*3/uL 2.10-8.00 Aug 11, 2024 04:30 PM [facility] GLUCOSE,BLOOD-poct (STL) BLOOD Specimen Type: BLOOD Comment: Test Performed by: [id number] Meter #: [id number] Ordering Provider: DEIRDRE WILD Report Released Date/Time: Aug 11, 2024 06:06 PM Reporting Lab: [address] [address] Performing Lab: [address] [address] GLUCOSE,BLOOD-poct (STL) 95 mg/dL 72-99 Aug 11, 2024 11:08 AM [facility] GLUCOSE,BLOOD-poct (STL) BLOOD Specimen Type: BLOOD Comment: Test Performed by: [id number] Meter #: [id number] Ordering Provider: DEIRDRE WILD Report Released Date/Time: Aug 11, 2024 11:10 AM Reporting Lab: [address] [address] Performing Lab: [address] [address] GLUCOSE,BLOOD-poct (STL) 117 mg/dL H 72-99 Aug 11, 2024 06:00 AM [facility] PT/INR NEW (STL-MA) PLASMA Specimen Type: PLAS MA No comment entered. Ordering Provider: GILSON OG Report Released Date/Time: Aug 10, 2024 06:20 PM Reporting Lab: [place] [address] [facility] [address] Performing Lab: [address] [address] PROTIME 15.5 s H 9.4-12.5 INR VALUE 1.4 {INR} Aug 11, 2024 06:00 AM [facility] IRON/TIBC PROFILE SERUM Specimen Type: SERUM No comment entered. Ordering Provider: GILSON OG Report Released Date/Time: Aug 10, 2024 04:02 PM Reporting Lab: [address] [address] Performing Lab: [place] [address] [address] [facility] [address] TIBC 263 ug/dL 250-450 TRANSFERRIN 210 mg/dL 163-344 IRON SATURATION 8 L 20-50 IRON 21 ug/dL L 65-175 Aug 11, 2024 06:00 AM [facility] APTT PLASMA Specimen Type: PLASM A No comment entered. Ordering Provider: GILSON OG Report Released Date/Time: Aug 10, 2024 06:20 PM Reporting Lab: [address] [address] Performing Lab: [address] [address] APTT 25.5 s L 26.7-39.9 Aug 11, 2024 06:00 AM [facility] HEPATIC FUNTION PANEL (STL) PLASMA Specimen Ty pe: PLASMA No comment entered. Ordering Provider: GILSON OG Report Released Date/Time: Aug 10, 2024 04:02 PM Reporting Lab: [address] [address] Performing Lab: [address] [address] PROTEIN 5.4 g/dL L 6-8.6 ALBUMIN 2.6 g/dL L 3.4-5 TOTAL BILIRUBIN 0.8 mg/dL 0.2-1.2 ALKALINE PHOSPHATASE 72 U/L 40-150 AST/SGOT 28 U/L 5-34 ALT/SGPT 10 U/L 8-40 CONJ. BILIRUBIN 0.4 mg/dL 0-0.5 Aug 11, 2024 06:00 AM [facility] CBC BLOOD Specimen Type: BLOOD No comment entered. Ordering Provider: GILSON OG Report Released Date/Time: Aug 10, 2024 04:01 PM Reporting Lab: [address] [address] Performing Lab: [address] [address] WBC 2.4 10*3/uL L 3.6-11.2 RBC 2.42 [...] L 2.10-8.00 Aug 10, 2024 09:00 PM [facility] BASIC METABOLIC PANEL PLASMA Specimen Type: PL ASMA Comment: No hemolysis noted. Ordering Provider: GILSON OG Report Released Date/Time: Aug 10, 2024 04:01 PM Reporting Lab: [address] [address] Performing Lab: [address] [address] CREATININE 0.84 mg/dL 0.7-1.3 UREA NITROGEN 16.8 mg/dL 9.0-25.0 GLUCOSE 104 mg/dL H 72-99 SODIUM 133 meq/L L 136-145 POTASSIUM 3.5 meq/L 3.5-5 CHLORIDE 103 meq/L 98-107 CARBON DIOXIDE 23 meq/L 22-31 CALCIUM 8.4 mg/dL 8.4-10.4 EGFR (CKD-EPI 2020) 95.6 >60 Aug 10, 2024 09:00 PM [facility] CBC BLOOD Specimen Type: BLOOD No comment entered. Ordering Provider: GILSON OG Report Released Date/Time: Aug 10, 2024 04:01 PM Reporting Lab: [address] [address] Performing Lab: [address] [address] WBC 4.3 10*3/uL 3.6-11.2 RBC 2.22 10*6/uL [...] 10*3/uL 2.10-8.00 Aug 10, 2024 06:30 PM [facility] MRSA SURVL NARES DNA NARES Specimen Type: [...] Aug 10, 2024 04:01 PM Reporting Lab: [address] [address] Performing Lab: [address] [address] MRSA SURVL NARES DNA Negative Negative Aug 10, 2024 06:02 PM [facility] GLUCOSE,BLOOD-poct (STL) BLOOD Specimen Type: BLOOD Comment: Test Performed by: [id number] Meter #: [id number] Ordering Provider: YASIR SANZ MD Report Released Date/Time: Aug 10, 2024 06:04 PM Reporting Lab: [address] [address] Performing Lab: [address] [address] GLUCOSE,BLOOD-poct (STL) 94 mg/dL 72-99 Aug 10, 2024 02:12 PM [facility] APTT PLASMA Specimen Type: PLASM A No comment entered. Ordering Provider: YASIR SANZ MD Report Released Date/Time: Aug 10, 2024 02:00 PM Reporting Lab: [place] [address] [address] [facility] [address] Performing Lab: [address] [address] APTT 20.1 s L 26.7-39.9 Aug 10, 2024 02:12 PM [facility] PT/INR NEW (STL-MA) PLASMA Specimen Type: PLAS MA No comment entered. Ordering Provider: YASIR SANZ MD Report Released Date/Time: Aug 10, 2024 02:00 PM Reporting Lab: [address] [address] Performing Lab: [address] [address] PROTIME 13.8 s H 9.4-12.5 INR VALUE 1.2 {INR} Aug 10, 2024 11:30 AM [facility] TSH W/ REFLEX FT4 (STL) PLASMA Specimen Type: PLASMA No comment entered. Ordering Provider: TONY SIMMONS Report Released Date/Time: Aug 02, 2024 12:33 PM Reporting Lab: [address] [address] Performing Lab: [address] [address] TSH 3.991 u[IU]/mL 0.47-5 Aug 10, 2024 11:30 AM [facility] COMPREHENSIVE METABOLIC PANEL PLASMA Specimen Type: PLASMA Comment: No hemolysis noted. Ordering Provider: TONY SIMMONS Report Released Date/Time: Aug 02, 2024 12:33 PM Reporting Lab: [address] [address] Performing Lab: [address] [place] [address] CREATININE 0.82 mg/dL 0.7-1.3 UREA NITROGEN 21.7 [...] 96.3 >60 Aug 10, 2024 11:30 AM [facility] CBC BLOOD Specimen Type: BLOOD No comment entered. Ordering Provider: TONY SIMMONS Report Released Date/Time: Aug 02, 2024 12:33 PM Reporting Lab: [address] [address] Performing Lab: [address] [address] WBC 7.4 10*3/uL 3.6-11.2 RBC 2.81 10*6/uL [...] 0.00-0. 20 Aug 02, 2024 11:53 AM [facility] PROTEIN ELECTROPHORESIS BLOOD SERUM Specimen Type: SERUM Comment: Reference Range: None Detected NOTE: THIS RESULT IS FLAGGED ABNORMAL Evaluation reveals a restricted band (M-spike) migrating in the gamma globulin region. If not already requested, Immunofixation should be considered. Test [facility], [email or web address], [address] [place] [address] Tristin Iyer M.D., Ph.D., Director of Laboratories , CLIA [id number] PREVIOUS SUGAR: IgG Bernie Ordering Provider: TONY SIMMONS Report Released Date/Time: Jul 13, 2024 01:49 PM Reporting Lab: [address] [address] Performing Lab: [address] ALPHA-1 GLOBULIN(SO-PB-STL) 0.4 g/dL H 0.2 [...] g/dL H Aug 02, 2024 11:53 AM [facility] IGA (STL) PLASMA Specimen Type: PLASM A Comment: No hemolysis noted. Ordering Provider: TONY SIMMONS Report Released Date/Time: Jul 13, 2024 01:49 PM Reporting Lab: [address] [address] Performing Lab: [address] [address] IGA (STL) 113 mg/dL 63-484 Aug 02, 2024 11:53 AM [facility] IGG (STL) PLASMA Specimen Type: PLASM A Comment: No hemolysis noted. Ordering Provider: TONY SIMMONS Report Released Date/Time: Jul 13, 2024 01:49 PM Reporting Lab: [address] [address] Performing Lab: [address] [address] IGG (L) 1898 mg/dL H 540-1822 Aug 02, 2024 11:53 AM [facility] IGM (STL) PLASMA Specimen Type: PLASM A Comment: No hemolysis noted. Ordering Provider: TONY SIMMONS Report Released Date/Time: Jul 13, 2024 01:49 PM Reporting Lab: [address] [address] Performing Lab: [address] [address] IGM (STL) 104 mg/dL 22-240 Aug 02, 2024 11:53 AM [facility] TSH W/ REFLEX FT4 (STL) PLASMA Specimen Type: PLASMA No comment entered. Ordering Provider: TONY SIMMONS Report Released Date/Time: Jul 13, 2024 01:49 PM Reporting Lab: [address] [address] Performing Lab: [address] [address] TSH 2.182 u[IU]/mL 0.47-5 Aug 02, 2024 11:53 AM [facility] KAPPA/LAMBDA FREE LC PANEL (STL-PB) SERUM Spe cimen Type: SERUM No comment entered. Ordering Provider: TONY SIMMONS Report Released Date/Time: Jul 13, 2024 01:49 PM Reporting Lab: [address] [address] Performing Lab: [address] [address] KAPPA FREE LC (STL) 102.7 mg/L H 2.4-20.7 LAMBDA FREE LC (STL) 32.2 mg/L H 4.2-27.7 KAPPA/LAMBDA RATIO (STL) 3.19 H 0.22-1. 74 Aug 02, 2024 11:53 AM [facility] COMPREHENSIVE METABOLIC PANEL PLASMA Specimen Type: PLASMA Comment: No hemolysis noted. Ordering Provider: TONY SIMMONS Report Released Date/Time: Jul 13, 2024 01:49 PM Reporting Lab: [address] [address] Performing Lab: [address] [address] CREATININE 0.82 mg/dL 0.7-1.3 UREA NITROGEN 12.2 [...] 96.3 >60 Aug 02, 2024 11:53 AM [facility] CBC BLOOD Specimen Type: BLOOD Comment: No Clots in specimen Ordering Provider: TONY SIMMONS Report Released Date/Time: Jul 13, 2024 01:49 PM Reporting Lab: [address] [address] Performing Lab: [address] [address] WBC 2.2 10*3/uL L 3.6-11.2 RBC 3.44 [...] L 2.10-8.00 Aug 01, 2024 10:10 AM [facility] GLUCOSE,BLOOD-poct (STL) BLOOD Specimen Type: BLOOD Comment: Test Performed by: [id number] Meter #: [id number] Ordering Provider: SUKHJINDER CHAHAL Report Released Date/Time: Aug 01, 2024 10:17 AM Reporting Lab: [address] [address] Performing Lab: [address] [address] GLUCOSE,BLOOD-poct (STL) 101 mg/dL H 72-99 Jul 27, 2024 01:54 PM [facility] BRAIN NATRIURETIC PEPTIDE PLASMA Specimen Type : PLASMA No comment entered. Ordering Provider: ELIZABETH COATES Report Released Date/Time: Jul 27, 2024 03:39 PM Reporting Lab: [address] [address] Performing Lab: [address] [address] BRAIN NATRIURETIC PEPTIDE 257.2 pg/mL H 0- 100 Jul 27, 2024 01:54 PM [facility] TROPONIN I PLASMA Specimen Type: PLASM A Comment: No hemolysis noted. Ordering Provider: ELIZABETH COATES Report Released Date/Time: Jul 27, 2024 03:39 PM Reporting Lab: [address] [address] Performing Lab: [address] [address] TROPONIN I 0.011 ng/mL 0-0.033 Jul 27, 2024 01:54 PM [facility] COMPREHENSIVE METABOLIC PANEL PLASMA Specimen Type: PLASMA Comment: No hemolysis noted. Ordering Provider: ELIZABETH COATES Report Released Date/Time: Jul 27, 2024 03:39 PM Reporting Lab: [address] [address] Performing Lab: [address] [address] CREATININE 0.70 mg/dL 0.7-1.3 UREA NITROGEN 7.4 [...] 101.0 >60 Jul 27, 2024 01:54 PM [facility] CBC BLOOD Specimen Type: BLOOD No comment entered. Ordering Provider: ELIZABETH COATES Report Released Date/Time: Jul 27, 2024 03:39 PM Reporting Lab: [place] [address] [address] [facility] [address] Performing Lab: [place] [address] [address] [facility] [address] WBC 3.2 10*3/uL L 3.6-11.2 RBC 3.12 [...] 10*3/uL 2.10-8.00 Jul 21, 2024 02:00 PM [facility] IRON/TIBC PROFILE SERUM Specimen Type: SERUM No comment entered. Ordering Provider: JORJE DENSON Report Released Date/Time: Jul 21, 2024 12:54 PM Reporting Lab: [address] [address] Performing Lab: [address] [address] TIBC 243 ug/dL L 250-450 TRANSFERRIN 194 mg/dL 163-344 IRON SATURATION 20 20-50 IRON 49 ug/dL L 65-175 Jul 21, 2024 02:00 PM [facility] B12 SERUM Specimen Type: SERUM No comment entered. Ordering Provider: JORJE DENSON Report Released Date/Time: Jul 21, 2024 12:54 PM Reporting Lab: [address] [address] Performing Lab: [address] [address] B12 1584 pg/mL H 213-816 Jul 21, 2024 02:00 PM [facility] FOLATE (L-MA) SERUM Specimen Type: SERUM No comment entered. Ordering Provider: JORJE DENSON Report Released Date/Time: Jul 21, 2024 12:54 PM Reporting Lab: [address] [address] Performing Lab: [address] [address] FOLATE (STL-MA) 9.1 ng/mL 7-20 Jul 21, 2024 02:00 PM [facility] CBC BLOOD Specimen Type: BLOOD Comment: Manual differential performed 07/20/2024 No clots Ordering Provider: JORJE DENSON Report Released Date/Time: Jul 21, 2024 12:54 PM Reporting Lab: [address] [address] Performing Lab: [address] [address] WBC 5.6 10*3/uL 3.6-11.2 RBC 2.87 10*6/uL [...] H 1.0-7.0 Jul 20, 2024 08:55 PM [facility] PT/INR NEW (STL-MA) PLASMA Specimen Type: PLAS MA No comment entered. Ordering Provider: AURA ZACARIAS Report Released Date/Time: Jul 18, 2024 01:30 PM Reporting Lab: [address] [address] Performing Lab: [address] [address] PROTIME 12.8 s H 9.4-12.5 INR VALUE 1.1 {INR} Jul 20, 2024 08:55 PM [facility] BASIC METABOLIC PANEL PLASMA Specimen Type: PL ASMA Comment: No hemolysis noted. Ordering Provider: AURA ZACARIAS Report Released Date/Time: Jul 18, 2024 01:30 PM Reporting Lab: [address] [address] Performing Lab: [address] [address] CREATININE 0.74 mg/dL 0.7-1.3 UREA NITROGEN 15.1 mg/dL 9.0-25.0 GLUCOSE 121 mg/dL H 72-99 SODIUM 130 meq/L L 136-145 POTASSIUM 3.7 meq/L 3.5-5 CHLORIDE 100 meq/L 98-107 CARBON DIOXIDE 20 meq/L L 22-31 CALCIUM 8.5 mg/dL 8.4-10.4 EGFR (CKD-EPI 2020) 99.3 >60 Jul 20, 2024 08:55 PM [facility] CBC BLOOD Specimen Type: BLOOD No comment entered. Ordering Provider: AURA ZACARIAS Report Released Date/Time: Jul 18, 2024 01:30 PM Reporting Lab: [address] [address] Performing Lab: [address] [address] WBC 5.1 10*3/uL 3.6-11.2 RBC 2.90 10*6/uL [...] 10*3/uL 2.10-8.00 Jul 20, 2024 01:13 PM [facility] CBC BLOOD Specimen Type: BLOOD No comment entered. Ordering Provider: AURA ZACARIAS Report Released Date/Time: Jul 18, 2024 01:30 PM Reporting Lab: [facility] [address] [place] [address] Performing Lab: [address] [address] WBC 5.6 10*3/uL 3.6-11.2 RBC 3.11 10*6/uL [...] 10*3/uL 2.10-8.00 Jul 19, 2024 06:42 AM [facility] PT/INR NEW (STL-MA) PLASMA Specimen Type: PLAS MA No comment entered. Ordering Provider: AURA ZACARIAS Report Released Date/Time: Jul 18, 2024 01:30 PM Reporting Lab: [facility] [address] [place] [address] Performing Lab: [address] [address] PROTIME 16.4 s H 9.4-12.5 INR VALUE 1.5 {INR} Jul 19, 2024 06:42 AM [facility] BASIC METABOLIC PANEL PLASMA Specimen Type: PL ASMA Comment: No hemolysis noted. Ordering Provider: AURA ZACARIAS Report Released Date/Time: Jul 18, 2024 01:30 PM Reporting Lab: [address] [address] Performing Lab: [address] [address] CREATININE 0.94 mg/dL 0.7-1.3 UREA NITROGEN 23.8 mg/dL 9.0-25.0 GLUCOSE 87 mg/dL 72-99 SODIUM 129 meq/L L 136-145 POTASSIUM 3.4 meq/L L 3.5-5 CHLORIDE 102 meq/L 98-107 CARBON DIOXIDE 20 meq/L L 22-31 CALCIUM 8.1 mg/dL L 8.4-10.4 EGFR (CKD-EPI 2020) 88.9 >60 Jul 19, 2024 06:42 AM [facility] CBC BLOOD Specimen Type: BLOOD No comment entered. Ordering Provider: AURA ZACARIAS Report Released Date/Time: Jul 18, 2024 01:30 PM Reporting Lab: [address] [address] Performing Lab: [address] [address] WBC 5.1 10*3/uL 3.6-11.2 RBC 2.45 10*6/uL [...] H 1.0-7.0 Jul 18, 2024 08:51 PM [facility] CBC BLOOD Specimen Type: BLOOD No comment entered. Ordering Provider: AURA ZACARIAS Report Released Date/Time: Jul 18, 2024 01:30 PM Reporting Lab: [address] [address] Performing Lab: [address] [address] WBC 6.2 10*3/uL 3.6-11.2 RBC 2.44 10*6/uL [...] 10*3/uL 2.10-8.00 Jul 18, 2024 04:19 PM [facility] CBC BLOOD Specimen Type: BLOOD No comment entered. Ordering Provider: AURA ZACARIAS Report Released Date/Time: Jul 18, 2024 01:30 PM Reporting Lab: [facility] [address] [facility] [address] Performing Lab: [address] [address] WBC 6.1 10*3/uL 3.6-11.2 RBC 2.57 10*6/uL [...] 10*3/uL 2.10-8.00 Jul 18, 2024 06:32 AM [facility] LACTIC ACID (STL-PB) PLASMA Specimen Type: NEIL SMA No comment entered. Ordering Provider: CAMDEN PATTON Report Released Date/Time: Jul 17, 2024 07:38 PM Reporting Lab: [address] [address] Performing Lab: [address] [address] LACTIC ACID (STL-PB) 1.3 mmol/L 0.5-2.0 Jul 18, 2024 06:32 AM [facility] PT/INR NEW (STL-MA) PLASMA Specimen Type: PLAS MA No comment entered. Ordering Provider: CAMDEN PATTON Report Released Date/Time: Jul 17, 2024 07:38 PM Reporting Lab: [place] [phone] Performing Lab: [facility] [address] [facility] [address] PROTIME 19.1 s H 9.4-12.5 INR VALUE 1.7 {INR} Jul 18, 2024 06:32 AM [facility] CBC BLOOD Specimen Type: BLOOD Comment: HGB Called to : Dr. Posadas MOD at: 0657 on: 07/18/24 by: [id number] Critical Verbal Readback Performed Ordering Provider: CAMDEN PATTON Report Released Date/Time: Jul 17, 2024 07:38 PM Reporting Lab: [address] [address] Performing Lab: [place] [phone] WBC 7.0 10*3/uL 3.6-11.2 RBC 2.04 10*6/uL [...] 10*3/uL 2.10-8.00 Jul 18, 2024 06:32 AM [facility] VANCOMYCIN (STL) PLASMA Specimen Type: PLASM A No comment entered. Ordering Provider: CAMDEN PATTON Report Released Date/Time: Jul 17, 2024 07:38 PM Reporting Lab: [address] [address] Performing Lab: [address] [address] VANCOMYCIN (STL) 5.0 ug/mL L 10-15 Jul 18, 2024 06:32 AM [facility] MAGNESIUM PLASMA Specimen Type: PLASM A Comment: No hemolysis noted. Ordering Provider: CAMDEN PATTON Report Released Date/Time: Jul 17, 2024 07:38 PM Reporting Lab: [address] [address] Performing Lab: [address] [address] MAGNESIUM 1.5 mg/dL L 1.6-2.6 Jul 18, 2024 06:32 AM [facility] PHOSPHOROUS PLASMA Specimen Type: PLASM A Comment: No hemolysis noted. Ordering Provider: CAMDEN PATTON Report Released Date/Time: Jul 17, 2024 07:38 PM Reporting Lab: [address] [address] Performing Lab: [address] [address] PHOSPHOROUS 2.2 mg/dL L 2.3-4.7 Jul 18, 2024 06:32 AM [facility] COMPREHENSIVE METABOLIC PANEL PLASMA Specimen Type: PLASMA Comment: No hemolysis noted. Ordering Provider: CAMDEN PATTON Report Released Date/Time: Jul 17, 2024 07:38 PM Reporting Lab: [address] [address] Performing Lab: [address] [address] CREATININE 1.08 mg/dL 0.7-1.3 UREA NITROGEN 40.5 [...] 75.2 >60 Jul 18, 2024 12:05 AM [facility] HGB,HCT,PLT BLOOD Specimen Type: BLOOD No comment entered. Ordering Provider: ROSA VARGAS Report Released Date/Time: Jul 17, 2024 09:07 PM Reporting Lab: [address] [address] Performing Lab: [address] [address] HGB 7.3 g/dL L 13.1-16.8 HCT 21.0 L 38.2-48.4 PLT 64 10*3/uL L 150-400 Jul 17, 2024 07:45 PM [facility] MRSA SURVL NARES DNA NARES Specimen Type: [...] Jul 17, 2024 07:38 PM Reporting Lab: [address] [address] Performing Lab: [address] [address] MRSA SURVL NARES DNA Negative Negative Jul 17, 2024 07:36 PM [facility] GLUCOSE,BLOOD-poct (STL) BLOOD Specimen Type: BLOOD Comment: Test Performed by: [id number] Meter #: [id number] Ordering Provider: CAMDEN PATTON Report Released Date/Time: Jul 17, 2024 07:48 PM Reporting Lab: [address] [address] Performing Lab: [address] [address] GLUCOSE,BLOOD-poct (L) 98 mg/dL 72-99 Jul 17, 2024 07:35 PM [facility] BLOOD GAS PANEL ABG (L) VENOUS BLOOD Specimen Type : VENOUS BLOOD Comment: normalcy status - Below absolute low-off instrument scale Test Performed by: [id number] Meter #: [id number] Ordering Provider: CAMDEN PATTON Report Released Date/Time: Jul 17, 2024 07:37 PM Reporting Lab: [address] [address] Performing Lab: [address] [address] GEM PH 7.39 7.31-7.41 GEM PCO2 31 [...] TEMP 37.0 Jul 17, 2024 07:10 PM [facility] URINALYSIS W/ CX REFLEX (STL-PB) URINE Specim en Type: URINE No comment entered. Ordering Provider: CASEY BOONE Report Released Date/Time: Jul 17, 2024 04:24 PM Reporting Lab: [address] [address] Performing Lab: [address] [address] URINE COLOR Light-Yellow Yellow U.BILIRUBIN Negative mg/dL Negative U.PH 6.0 5.0-8.0 APPEARANCE Clear Clear U.NITRITE Negative mg/dL Negative URN.GLUCOSE Normal mg/dL Negative URN.PROTEIN Negative mg/dL URN.UROBILINOGEN Normal mg/dL Normal URN.BLOOD Negative mg/dL Negative-Trace URN.KETONES Trace mg/dL Negative-Trace URN.LEUK.EST. Negative mg/dL Negative-Tr april URN.SPECIFIC GRAVITY 1.029 Jul 17, 2024 06:25 PM [facility] LDH PLASMA Specimen Type: PLASM A No comment entered. Ordering Provider: CASEY BOONE Report Released Date/Time: Jul 17, 2024 06:13 PM Reporting Lab: [place] [address] Performing Lab: [address] [address] LDH 305 U/L H 125-243 Jul 17, 2024 06:25 PM [facility] HAPTOGLOBIN (STL) PLASMA Specimen Type: PLASM A No comment entered. Ordering Provider: CASEY BOONE Report Released Date/Time: Jul 17, 2024 06:13 PM Reporting Lab: [place] [address] Performing Lab: [place] [phone] HAPTOGLOBIN (STL) 93 mg/dL 44-215 Jul 17, 2024 06:25 PM [facility] RETICULOCYTE PANEL BLOOD Specimen Type: BLOOD No comment entered. Ordering Provider: CASEY BOONE Report Released Date/Time: Jul 17, 2024 06:13 PM Reporting Lab: [address] [address] Performing Lab: [address] [address] RETIC RATIO 7.35 H 0.50-2.30 IRF 39.7 H 2.3-13.4 RETICULOCYTE HEMOGLOBIN EQUIVALENT 35.8 pg 28.2-36.6 RETIC COUNT,ABS 0.129 10*6/uL H 0.022-0.10 1 Jul 17, 2024 06:25 PM [facility] CBC BLOOD Specimen Type: BLOOD Comment: HGB Called to : Watson White at: [id number] on:[id number] by: SHARON Critical Verbal Readback Performed Ordering Provider: CAMDEN PATTON Report Released Date/Time: Jul 17, 2024 07:09 PM Reporting Lab: [place] [phone] Performing Lab: [place] [phone] WBC 27.6 10*3/uL H 3.6-11.2 RBC 1.76 [...] H 2.10-8.00 Jul 17, 2024 04:59 PM [facility] BLOOD GAS PANEL ABG (L) VENOUS BLOOD Specimen Type : VENOUS BLOOD Comment: Test Performed by: [id number] Meter #: [id number] Ordering Provider: CASEY BOONE Report Released Date/Time: Jul 17, 2024 05:00 PM Reporting Lab: [facility] [address] [facility] [address] Performing Lab: [address] [address] GEM PH 7.39 7.31-7.41 GEM PCO2 33 [...] TEMP 37.0 Jul 17, 2024 04:25 PM [facility] MAGNESIUM PLASMA Specimen Type: PLASM A Comment: No hemolysis noted. Ordering Provider: CASEY BOONE Report Released Date/Time: Jul 17, 2024 04:24 PM Reporting Lab: [facility] [address] [facility] [address] Performing Lab: [address] [address] MAGNESIUM 1.4 mg/dL L 1.6-2.6 Jul 17, 2024 04:25 PM [facility] PT/INR NEW (STL-MA) PLASMA Specimen Type: PLAS MA No comment entered. Ordering Provider: CASEY BOONE Report Released Date/Time: Jul 17, 2024 04:24 PM Reporting Lab: [facility] [address] [place] [address] Performing Lab: [facility] [address] [facility] [address] PROTIME 25.3 s H 9.4-12.5 INR VALUE 2.3 {INR} Jul 17, 2024 04:25 PM [facility] COVID-19 DIAGNOSTIC (FLU/RSV)(STL) NASOPHARYNX Spec imen Type: [...] Jul 17, 2024 04:24 PM Reporting Lab: [address] [address] Performing Lab: [facility] [address] [place] [address] INFLUENZA A Negative Negative INFLUENZA B Negative Negative COVID-19 (STL-PB) Not Detected Not Detec nate RSV (Cepheid) NEGATIVE Negative Jul 17, 2024 04:25 PM [facility] COMPREHENSIVE METABOLIC PANEL PLASMA Specimen Type: PLASMA Comment: No hemolysis noted. Ordering Provider: CASEY BOONE Report Released Date/Time: Jul 17, 2024 04:24 PM Reporting Lab: [facility] [address] [place] [address] Performing Lab: [facility] [address] [address] CREATININE 1.25 mg/dL 0.7-1.3 UREA NITROGEN 47.0 [...] 63.1 >60 Jul 17, 2024 04:25 PM [facility] CBC BLOOD Specimen Type: BLOOD No comment entered. Ordering Provider: CASEY BOONE Report Released Date/Time: Jul 17, 2024 04:24 PM Reporting Lab: [address] [address] Performing Lab: [address] [address] WBC 42.4 10*3/uL H 3.6-11.2 RBC 2.20 [...] H 2.10-8.00 Jul 13, 2024 12:39 PM [facility] TSH W/ REFLEX FT4 (STL) PLASMA Specimen Type: PLASMA No comment entered. Ordering Provider: TONY SIMMONS Report Released Date/Time: Jun 07, 2024 01:01 PM Reporting Lab: [facility] [address] [facility] [address] Performing Lab: [facility] [address] [facility] [address] TSH 1.431 u[IU]/mL 0.47-5 Jul 13, 2024 12:39 PM [facility] PHOSPHOROUS PLASMA Specimen Type: PLASM A Comment: No hemolysis noted. Ordering Provider: TONY SIMMONS Report Released Date/Time: Jun 07, 2024 01:01 PM Reporting Lab: [facility] [address] [facility] [address] Performing Lab: [facility] [address] [facility] [address] PHOSPHOROUS 2.4 mg/dL 2.3-4.7 Jul 13, 2024 12:39 PM [facility] MAGNESIUM PLASMA Specimen Type: PLASM A Comment: No hemolysis noted. Ordering Provider: TONY SIMMONS Report Released Date/Time: Jun 07, 2024 01:01 PM Reporting Lab: [facility] [address] [facility] [address] Performing Lab: [facility] [address] [facility] [address] MAGNESIUM 2.0 mg/dL 1.6-2.6 Jul 13, 2024 12:39 PM [facility] COMPREHENSIVE METABOLIC PANEL PLASMA Specimen Type: PLASMA Comment: No hemolysis noted. Ordering Provider: TONY SIMMONS Report Released Date/Time: Jun 07, 2024 01:01 PM Reporting Lab: [facility] [address] [place] [address] Performing Lab: [address] [address] CREATININE 0.75 mg/dL 0.7-1.3 UREA NITROGEN 21.3 [...] 98.9 >60 Jul 13, 2024 12:39 PM [facility] CBC BLOOD Specimen Type: BLOOD Comment: no clot Ordering Provider: TONY SIMMONS Report Released Date/Time: Jun 07, 2024 01:01 PM Reporting Lab: [facility] [address] [facility] [address] Performing Lab: [address] [address] WBC 3.0 10*3/uL L 3.6-11.2 RBC 3.83 [...] 10*3/uL 2.10-8.00 Jul 13, 2024 12:38 PM [facility] ALPHA-FETOPROTEIN(STL-PB) SERUM Specimen Type : SERUM No comment entered. Ordering Provider: CRYSTAL MASSEY Report Released Date/Time: Jul 04, 2024 03:26 PM Reporting Lab: [address] [address] Performing Lab: [address] [address] ALPHA-FETOPROTEIN(STL-PB) 16.86 ng/mL H 1- 8.78 Jul 13, 2024 12:37 PM [facility] CARBOHYDRATE Ag SERUM Specimen Type: SERUM Comment: REFERENCE RANGE: <34 U/mL This test was performed using the Siemens chemiluminescent method. Values obtained from different assay methods cannot be used inter- changeably. CA 19-9 levels, regardless of value, should not be interpreted as absolute evidence of the presence or absence of disease. Test Performed by Darin Lemus, [facility], [address] [place] [address] Tristin Iyer M.D., Ph.D., Director of Laboratories , [place] [id number] Ordering Provider: CRYSTAL MASSEY Report Released Date/Time: Jul 04, 2024 03:28 PM Reporting Lab: [facility] [address] [facility] [address] Performing Lab: [facility] [address] [facility] [address] CARBOHYDRATE Ag 61 H SEE BELOW Vital Signs: All taken on the encounter date This section contains inpatient and outpatient Vital Signs collected on the date of the Encounter. Date/Time Temperature Pulse Blood Pressure Respiratory Rate SP02 Pain Height Weight Body Mass Index Source Jul 27, 2024 05:40 PM 72 127/72 [facility] Jul 27, 2024 03:25 PM 98.5 75 138/81 18 3 [facility] Social History: Smoking Status (Most current) [...] place. Date/Time Current Smoking Status Comment Kaz ity Jul 17, 2024 04:02 PM ORYX ADMIT TOBACCO SCREEN NO [facility] Tobacco Use History This section includes a history of the smoking, or tobacco-related health factors, that were collected on or before the date of the Encounter. The data comes from the [place] facility where the Encounter took place. Date/Time Smoking Status/Tobacco Use Comment F acility Jan 20, 2023 03:49 PM VA-TOBACCO FORMER USER [facility] Jan 20, 2023 03:49 PM VA-TOBACCO QUIT 15 YRS OR MORE [facility] Feb 06, 2021 04:28 PM VA-TOBACCO FORMER USER [facility] Feb 06, 2021 04:28 PM VA-TOBACCO QUIT 15 YRS OR MORE [facility] Radiology Reports: +/- 30 days of the [...] BLOOD FLOW ABD/RENAL DOPPLER (COMPLETE): ABRAHAM HAWK [id number] -1955 M Exm Date: AUG 23, 2024@12:12 Req Phys: GILSON OG Pat Loc: [facility]GEN MED INPT VISIT (Req'g L Img Loc: [facility] Service: Unknown [facility], [facility] [address] [place] [address] (Case [id number] COMPLETE) US BLOOD FLOW ABD/RENAL DOPPLER ((US Detailed) CPT:90292 Reason for Study: dopplers Clinical History: Report Status: Verified Date Reported: AUG 23, 2024 Date Verified: AUG 23, 2024 Outbound Sales Representative E-Sig:/ES/PETROS MCCORD Report: Case [id number], [id number]. US ABDOMEN LTD, SINGLE ORG OR QUADRANT, [...] vasculature. Primary Interpreting Staff: PETROS MCCORD MD (Outbound Sales Representative) /PETROS SRIVASTAVA [facility] Aug 23, 2024 12:12 PM US ABDOMEN LTD, SINGLE ORG OR QUADRANT: ABRAHAM HAWK [id number] -1955 M Exm Date: AUG 23, 2024@12:12 Req Phys: GILSON OG Loc: [facility]GEN MED INPT VISIT (Req'g L Img Loc: [facility] Service: Unknown [facility], [facility] [address] [place] [address] (Case [id number] COMPLETE) US ABDOMEN LTD, SINGLE ORG OR CARLITOS(US Detailed) CPT:22804 Reason for Study: Possible SBP, RUQUS with dopplers, please comment on ascites? Clinical History: Report Status: Verified Date Reported: AUG 23, 2024 Date Verified: AUG 23, 2024 Outbound Sales Representative E-Sig:/ES/PETROS MCCORD Report: Case [id number], [id number]. US ABDOMEN LTD, SINGLE ORG OR QUADRANT, [...] vasculature. Primary Interpreting Staff: PETROS MCCORD MD (Outbound Sales Representative) /PETROS SRIVASTAVA [facility] Aug 10, 2024 02:[address] ABD PEL W/CONT & 3D: ABRAHAM HAWK [id number] -1955 M Exm Date: AUG 10, 2024@14:33 Req Phys: YASIR SANZ MD Pat Loc: [facility]-EMERGENCY DEPT 2ND SHIFT (R Img Loc: [facility]-CT IMAGING [facility] Service: [facility], [address] [address] (Case [id number] COMPLETE) CT ABDOMEN AND PELVIS W/CONTRAST (CT Detailed) CPT:24481 Contrast Media : Non-ionic Iodinated Reason for Study: Abdominal pain, vomiting Clinical History: Responsible Attending: Svetlana Attending Contact Number: [phone] Resident Contact Number: Abdominal pain, vomiting Allergies listed in CPRS chart: Patient has answered NKA Creatinine:CREATININE 0.82 mg/dL 08/10/2024 11:30 /eGFR: STL EGFR (within one year). CREATININE 0.82 mg/dL (08/10/24 11:30) Wt: 152.1 lb [68.99 kg] (08/10/2024 11:31) History of: Renal failure, chronic or acute renal disease: NO Report Status: Verified Date Reported: AUG 10, 2024 Date Verified: AUG 10, 2024 Outbound Sales Representative E-Sig:/ES/PETROS MCCORD Report: Case [id number]. CT ABDOMEN AND PELVIS W/CONTRAST. Gastrointestinal contrast: [...] hernias. Dictated by Kenneth Albright DO (radiology orderly). I, Petros Mccord, have reviewed the images and report and concur with these findings. Primary Interpreting Staff: PETROS MCCORD MD (Outbound Sales Representative) Primary Interpreting Resident: KENNETH ALBRIGHT, Infection Control Manager /PETROS REESE [facility] Aug 01, 2024 10:20 AM PET/CT TUMOR IMAGING (SKULL TO MID-THIGH)-P: ABRAHAM HAWK [id number] -1955 M Exm Date: AUG 01, 2024@10:20 Req Phys: TONY SIMMONS Loc: [facility]-ONCOLOGY [facility] (Req'g Loc) Img Loc: -PET-CT Service: Unknown [address] [address] (Case [id number] COMPLETE) PET/CT TUMOR SKULL BASE TO MID-T(NM Detailed) CPT:74238 CPT Modifiers : PS PET TUMOR SUBSQ TX STRATEGY Reason for Study: Nasopharyngeal cancer (Case [id number] COMPLETE) F-18 FLUORODEOXYGLUCOSE (FDG),PER(NM Detailed) CPT:A9552 Clinical History: Report Status: Verified Date Reported: AUG 01, 2024 Date Verified: AUG 01, 2024 Outbound Sales Representative E-Sig:/ES/NATASHA LEIJA Report: PATIENT NAME: ABRAHAM HAWK. CASE #: [id number], [id number]. PROCEDURE: PET/CT study Indication: Nasopharyngeal cancer HISTORY: [...] lytic osseous lesion is noted within the [id number]-pb-hplx. Impression: 1. The previous sites of FDG [...] NEEDED Primary Interpreting Staff: NATASHA LEIJA MD (Outbound Sales Representative) /PFT NATASHA LEIJA [facility] Jul 27, 2024 03:41 PM CHEST PORTABLE: ABRAHAM HAWK [id number] -1955 M Exm Date: JUL 27, 2024@15:41 Req Phys: GENDIELIZABETH Pat Loc: [facility]-EMERGENCY DEPT 2ND SHIFT (R Img Loc: [facility]-MAIN RADIOLOGY SUITE Service: Unknown [facility], [facility] [address] [place] [address] (Case [id number] COMPLETE) CHEST PORTABLE (RAD Detailed) CPT:00826 Proc Modifiers : Portable Reason for Study: sob Clinical History: Report Status: Verified Date Reported: JUL 27, 2024 Date Verified: JUL 27, 2024 Outbound Sales Representative E-Sig:/ES/Sol Abraham MD Report: CASE [id number]. AP portable view chest. COMPARISON: Chest x-ray [...] Report dictated by Krystian Sultana D.O. (radiology orderly) I, Sol Abraham, have reviewed the images and report and concur with these findings. Primary Interpreting Staff: Sol Abraham MD, Radiologist (Outbound Sales Representative) Primary Interpreting Resident: Krystian Sultana D.O., Resident Physician /SOL DHALIWAL [facility] Jul 17, 2024 06:[address] ABD PEL W/CONT & 3D: ABRAHAM HAWK [id number] -1955 M Exm Date: JUL 17, 2024@18:18 Req Phys: CASEY BOONE [facility] Loc: 4-C [facility]/07-17-2024@19:47 Img Loc: [facility]-CT IMAGING [facility] Service: [facility], [address] [address] (Case [id number] COMPLETE) CT ABDOMEN AND PELVIS W/CONTRAST (CT Detailed) CPT:21414 Contrast Media : Non-ionic Iodinated Reason for Study: septic shock, abd pain Clinical History: Responsible Attending: Nils Attending Contact Number: [phone] Resident Contact Number: Septic shock, Patient with [...] 17, 2024 Date Verified: JUL 17, 2024 Outbound Sales Representative E-Sig: Report: CT THORAX W/CONT [...] from 09/12/2023. READING PHYSICIAN: Guilherme Talbert M.D. -[phone] 07/17/2024 17:44 [facility] [email or web address] Teleradiology Program [phone] (For Medical Practitioner Use Only) Attention Patients / Veterans: If you have questions or concerns about these test results, please contact your ordering provider or primary care team. Primary Interpreting Staff: RADIOLOGY,OUTSIDE SERVICE, Staff Physician / RADIOLOGY,OUTSIDE SERVICE [facility] Jul 17, 2024 06:[address] PE CHEST W/3D: ABRAHAM HAWK [id number] -1955 M Ex Date: JUL 17, 2024@18:17 Req Phys: CASEY BOONE Loc: 4-C [facility]/07-17-2024@19:47 Img Loc: [facility]-CT IMAGING [facility] Service: [facility], [address] [address] (Case [id number] COMPLETE) CT THORAX W/CONT (PE) (CT Detailed) CPT:68280 Contrast Media : unspecified contrast media Reason for Study: RO PE Clinical History: Responsible Attending: Nils Attending Contact Number: [phone] Resident Contact Number: Patient with HCC and [...] 17, 2024 Date Verified: JUL 17, 2024 Outbound Sales Representative E-Sig: Report: CT THORAX W/CONT [...] from 09/12/2023. READING PHYSICIAN: Guilherme Talbert M.D. -[phone] 07/17/2024 17:44 [facility] [employer] Teleradiology Program [phone] (For Medical Practitioner Use Only) Attention Patients / Veterans: If you have questions or concerns about these test results, please contact your ordering provider or primary care team. Primary Interpreting Staff: RADIOLOGY,OUTSIDE SERVICE, Staff Physician / RADIOLOGY,OUTSIDE SERVICE [facility] Pathology Reports: +/- 30 days [...] Performing Laboratory: Surgical Pathology Report Performed By: [facility] [address]# [id number] [address] [place] [id number] $FTR - - - - - - [...] - - ABRAHAM HAWK STANDARD FORM 515 ID:[id number] SEX:M :1955 AGE: 68 LOC:APFEE PCP: Deirdre Wild /eze [place] Pathologist Signed: 08/16/2024 09:43 CRISTIANA [place] [facility] Aug 11, 2024 06:00 AM LR MICROBIOLOGY RE PORT: Accession [UID]: [id number] [[id number]] Received: Aug 11, 2024@06:19 Collection sample: B D BLD. BOTTLE Collection date: Aug 11, 2024 06:00 Site/Specimen: BLOOD Provider: GILSON OG Test(s) ordered: BLOOD CULT (SET 1)............ completed: Aug 17, 2024 10:06 * BACTERIOLOGY FINAL REPORT => Aug 17, 2024 10:22 TECH CODE: [id number] Bacteriology Remark(s): 08.17.24 KAA Culture shows NO GROWTH IN 6 DAYS =--=--=--=--=--=--=--=--=-- =--=--=--=--=--=--=--=--=-- =--=--=--=--=--=--=--=-- Performing Laboratory: Bacteriology Report [facility]formed By: [facility] CLIA# [id number] [facility] [facility] [address] [place] [address] JULISSA BROWN [facility] Jul 17, 2024 05:10 PM LR MICROBIOLOGY RE PORT: Accession [UID]: [id number] [[id number]] Received: Jul 17, 2024@17:30 Collection sample: B D BLD. BOTTLE (SET 2)Collection date: Jul 17, 2024 17:10 Site/Specimen: BLOOD Provider: CASEY BOONE Test(s) ordered: BLOOD CULT (SET 2)............ completed: Jul 23, 2024 14:26 * BACTERIOLOGY FINAL REPORT => Jul 23, 2024 14:28 TECH CODE: [id number] Bacteriology Remark(s): CULTURE IS NEGATIVE TO DATE, ALL POSITIVES ARE ROUTINELY CALLED. KI Culture shows NO GROWTH IN 6 DAYS. 07/23/24 KI =--=--=--=--=--=--=--=--=-- =--=--=--=--=--=--=--=--=-- =--=--=--=--=--=--=--=-- Performing Laboratory: Bacteriology Report Performed By: [address] CLIA# [id number] [address] [address] JULISSA BROWN [facility] Jul 17, 2024 05:10 PM MICROBIOLOGY RE PORT: Accession [UID]: [id number] [[id number]] Received: Jul 17, 2024@17:30 Collection sample: B D BLD. BOTTLE Collection date: Jul 17, 2024 17:10 Site/Specimen: BLOOD Provider: CASEY BOONE Test(s) ordered: BLOOD CULT (SET 1)............ completed: Jul 23, 2024 14:26 * BACTERIOLOGY FINAL REPORT => Jul 23, 2024 14:28 [facility] CODE: [id number] Bacteriology Remark(s): CULTURE IS NEGATIVE TO DATE, ALL POSITIVES ARE ROUTINELY CALLED. KI Culture shows NO GROWTH IN 6 DAYS. 07/23/24 KI =--=--=--=--=--=--=--=--=-- =--=--=--=--=--=--=--=--=-- =--=--=--=--=--=--=--=-- Performing Laboratory: Bacteriology Report Performed By: [address] CLIA# [id number] [address] [address] JULISSA BROWN [facility] Encounter Notes: All associated encounter notes This section contains the clinical notes associated to the Encounter. 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 pt informed by PCP to come to ED for evaluation of problem. pt states he had a keytruda infusion and that is a side effect of the medication. pt later reports he was in the ICU last week. Level of Consciousness (AVPU): Alert = Appears aware of and responsive to the environment on their own. Follows commands, opens eyes spontaneously, and tracks objects. Vital Signs: Temperature 98.5 F (36.9 C) Pulse 75 Respirations 18 Blood Pressure 138/81 Pulse Oximetry 100 Room Air Pain: No pain Pain Score: 3 Suicide Screen: [place] Suicide Severity Rating Scale (C-SSRS) screener 1. [...] questions. 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 1545 EKG complete. Pt attached to cardiac, BP, and pulse oximetry monitoring. 20# IV inserted in right forearm. Blood drawn and sent to lab. 1650 Pt resting comfortably, awaiting test results. 1740 IV discontinued without issue. Pt ambulated to pharmacy. Blood Pressure: 127/72 Pulse: 72 Pulse Oximetry: 98% /loly/ SOSA BEDOYA RN BSN REGISTERED NURSE Signed: 07/27/2024 17:41 GONZALO PERDOMO [facility]
--- OUTSIDE RECORDS SUMMARY | 2024-10-08 17:09 | XMS_ITS | Encounter Summary ---
Author Name [facility] [place] [facility] [facility] [place] Address [address] [place] [address] Care Team Providers Care School Psychologist Assistant Name Role Phone SUKHJINDER CHAHAL Primary Care [...] SUPPL EMENT Nov 25, 2021 PLAN G [id number] [phone] ELLEN HAWK VID PATIENT AARP MED SUPP MEDIGAP PLAN G MEDIC ARE SUPPL EMENT Nov 25, 2021 PLAN G [id number] [phone] ELLEN HAWK VID PATIENT MEDICARE (WNR) MEDICARE (M) PART B Sep 25, 2021 PART B [id number] ELLEN HAWK VID PATIENT MEDICARE (WNR) MEDICARE (M) PART A Aug 25, 2021 PART A [id number] [phone] ELLEN HAWKD PATIENT Selected Encounter This section includes the information on record at [place] for the Encounter. Date/Time Encounter Type Encounter Description Reason Provider Source Aug 10, 2024 11:00 AM OFFICE O/P EST HI 40 MIN ONCOLOGY/TUMOR ICD-10-CM C22.0 Liver cell carcinoma SIMMONSTONY Abdiel Encounter Template Text not used by [place] Assessments - Encounter Diagnoses This section includes the primary and secondary diagnoses documented for the Encounter. Date/Time Primary/Secondary Diagnosis Diagnosis Name Provider Source Aug 10, 2024 01:39 PM PRIMARY Liver cell carcinoma LOTTIE SIMMONSSSE [facility] Plan of Treatment: Future Appointments (+ 6 months) and Future Tests (+/- 45 days) The Plan of Treatment section includes future care activities for the patient from all [place] treatmentfacilities. This section includes future appointments and future orders which are active, pending or scheduled. Future Appointments This section includes appointments that were scheduled to occur 6 months from the date of the Encounter, up to a maximum of 20 appointments. The data comes from all [place] treatment facilities. Appointment Date/Time Appointment Type Appointme nt Facility Name Aug 16, 2024 10:00 AM AMBULATORY - MEDICINE [facility] Aug 17, 2024 08:30 AM AMBULATORY - MEDICINE [facility] Aug 17, 2024 09:00 AM AMBULATORY - MEDICINE [facility] Aug 17, 2024 09:30 AM AMBULATORY - MEDICINE [facility] Aug 23, 2024 12:00 PM AMBULATORY - NONE [facility] Aug 31, 2024 02:00 PM AMBULATORY - MEDICINE [facility] Sep 07, 2024 11:00 AM AMBULATORY - MEDICINE [facility] Sep 07, 2024 01:00 PM AMBULATORY - MEDICINE [facility] Oct 15, 2024 03:00 PM AMBULATORY - SURGERY . [facility] Oct 19, 2024 02:00 PM AMBULATORY - NONE [facility] Active, Pending, and Scheduled Orders This section includes a listing of several types of active, pending, and scheduled orders, including clinic medications orders, diagnostic test orders, procedure orders and consult orders; where the start date of the order is 45 days before the date of the Encounter or 45 days after the date of theEncount. The data comes from all [facility]. Test Date/Time Test Type Test Details Facility Name Jul 17, 2024 12:00 AM Laboratory - Blood Bank Order RED BLOOD CELLS - LAB VBECS - NO SPECIMEN REQUIRED [facility] Jul 17, 2024 12:00 AM Laboratory - Blood Bank Order FRESH FROZEN PLASMA - LAB VBECS - NO SPECIMEN REQUIRED [facility] Jul 17, 2024 06:13 PM Laboratory - Blood Bank Order DIRECT ANTIGLOBULIN TEST - LAB BLOOD STAT [facility] Jul 17, 2024 06:13 PM Laboratory - Blood Bank Order TYPE & SCREEN - LAB BLOOD [facility] Jul 18, 2024 12:00 AM Laboratory - Blood Bank Order PLATELETS - LAB VBECS - NO SPECIMEN REQUIRED [facility] Aug 10, 2024 12:00 AM Laboratory - Blood Bank Order RED BLOOD CELLS - LAB VBECS - NO SPECIMEN REQUIRED [facility] Aug 10, 2024 02:00 PM Laboratory - Blood Bank Order TYPE & SCREEN - LAB BLOOD [facility] Aug 10, 2024 05:43 PM Laboratory - Chemistry Order LIPASE GREEN LI/HEP BLD/PLAS PLASMA STAT I [facility] Aug 10, 2024 05:44 PM Laboratory - Microbiology Order BLOOD CULT (SET 2) B D BLD. BOTTLE (SET 2) BLOOD JOANN I NOW [facility] Aug 11, 2024 02:00 AM Laboratory - Chemistry Order CBC BLOOD [facility] Aug 14, 2024 02:00 AM Laboratory - Chemistry Order CBC BLOOD [facility] Aug 15, 2024 02:00 AM Laboratory - Chemistry Order CBC BLOOD [facility] Aug 16, 2024 12:00 AM Laboratory - Chemistry Order CBC BLOOD [facility] Aug 16, 2024 08:00 PM Laboratory - Chemistry Order CBC BLOOD [facility] Aug 17, 2024 08:00 PM Laboratory - Chemistry Order CBC BLOOD LC [facility] Lab Results: +/- 30 days of the encounter This section includes the Chemistry and Hematology Lab Results on record with [place] for the patient. Radiology Reports and Pathology Reports are provided separately, in subsequent sections. Lab Results This section contains the Chemistry/Hematology Results that were resulted 30 days before or 30 daysafter the date of the Encounter. Date/Time Source Result Type Result - Unit Interpretation Reference Range Specimen Type Comment Sep 07, 2024 12:39 PM [facility] COMPREHENSIVE METABOLIC PANEL PLASMA Specimen Type: PLASMA Comment: No hemolysis noted. Ordering Provider: TONY SIMMONS Report Released Date/Time: Aug 31, 2024 02:42 PM Reporting Lab: [address] [address] Performing Lab: [address] [address] CREATININE 0.87 mg/dL 0.7-1.3 UREA NITROGEN 24.5 [...] 94.0 >60 Sep 07, 2024 12:39 PM [facility] CBC BLOOD Specimen Type: BLOOD No comment entered. Ordering Provider: TONY SIMMONS Report Released Date/Time: Aug 31, 2024 02:42 PM Reporting Lab: [address] [address] Performing Lab: [address] [address] WBC 5.1 10*3/uL 3.6-11.2 RBC 3.44 10*6/uL [...] 10*3/uL 2.10-8.00 Sep 07, 2024 12:39 PM [facility] ALPHA-FETOPROTEIN(STL-PB) SERUM Specimen Type : SERUM No comment entered. Ordering Provider: CRYSTAL MASSEY Report Released Date/Time: Sep 07, 2024 11:59 AM Reporting Lab: [facility] [address] [facility] [address] Performing Lab: [address] [address] ALPHA-FETOPROTEIN(STL-PB) 15.01 ng/mL H 1- 8.78 Aug 31, 2024 02:04 PM [facility] COMPREHENSIVE METABOLIC PANEL PLASMA Specimen Type: PLASMA Comment: No hemolysis noted. Ordering Provider: TONY SIMMONS Report Released Date/Time: Aug 27, 2024 12:35 PM Reporting Lab: [address] [address] Performing Lab: [address] [address] CREATININE 0.90 mg/dL 0.7-1.3 UREA NITROGEN 26.4 [...] 93.6 >60 Aug 31, 2024 02:04 PM [facility] CBC BLOOD Specimen Type: BLOOD No comment entered. Ordering Provider: TONY SIMMONS Report Released Date/Time: Aug 27, 2024 12:35 PM Reporting Lab: [place] [address] [facility] [address] Performing Lab: [address] [address] WBC 4.7 10*3/uL 3.6-11.2 RBC 3.54 10*6/uL [...] 10*3/uL 2.10-8.00 Aug 17, 2024 03:34 PM [facility] TSH W/ REFLEX FT4 (STL) PLASMA Specimen Type: PLASMA No comment entered. Ordering Provider: TONY SIMMONS Report Released Date/Time: Aug 10, 2024 12:01 PM Reporting Lab: [place] [id number] Performing Lab: [place] [address] [place] [phone] TSH 4.570 u[IU]/mL 0.47-5 Aug 17, 2024 03:34 PM [facility] COMPREHENSIVE METABOLIC PANEL PLASMA Specimen Type: PLASMA Comment: No hemolysis noted. Ordering Provider: TONY SIMMONS Report Released Date/Time: Aug 10, 2024 12:01 PM Reporting Lab: [place] [address] [place] [phone] Performing Lab: [place] [phone] CREATININE 0.85 mg/dL 0.7-1.3 UREA NITROGEN 11.5 [...] 95.2 >60 Aug 17, 2024 03:34 PM [facility] CBC BLOOD Specimen Type: BLOOD Comment: No Clots Ordering Provider: TONY SIMMONS Report Released Date/Time: Aug 10, 2024 12:01 PM Reporting Lab: [facility] [address] [facility] [address] Performing Lab: [address] [address] WBC 5.0 10*3/uL 3.6-11.2 RBC 2.83 10*6/uL [...] 4.9 1.0-7.0 Aug 15, 2024 07:20 AM [facility] CBC BLOOD Specimen Type: BLOOD Comment: No clots detected in specimen. Ordering Provider: CASH CLOUD Report Released Date/Time: Aug 12, 2024 01:47 PM Reporting Lab: [place] [address] [facility] [address] Performing Lab: [address] [address] WBC 4.9 10*3/uL 3.6-11.2 RBC 2.93 10*6/uL [...] 10*3/uL 2.10-8.00 Aug 15, 2024 04:54 AM [facility] GLUCOSE,BLOOD-poct (STL) BLOOD Specimen Type: BLOOD Comment: Test Performed by: [id number] Meter #: [id number] Ordering Provider: DEIRDRE WILD Report Released Date/Time: Aug 15, 2024 05:21 AM Reporting Lab: [address] [address] Performing Lab: [address] [address] GLUCOSE,BLOOD-poct (STL) 112 mg/dL H 72-99 Aug 14, 2024 08:30 PM [facility] CRP PLASMA Specimen Type: PLASM A No comment entered. Ordering Provider: CASH CLOUD Report Released Date/Time: Aug 12, 2024 10:14 AM Reporting Lab: [address] [address] Performing Lab: [address] [address] CRP 0.7 mg/dL H 0-0.5 Aug 14, 2024 08:[address] [facility] CBC BLOOD Specimen Type: BLOOD No comment entered. Ordering Provider: GILSON OG Report Released Date/Time: Aug 10, 2024 04:01 PM Reporting Lab: [address] [address] Performing Lab: [address] [address] WBC 4.6 10*3/uL 3.6-11.2 RBC 2.83 10*6/uL [...] 10*3/uL 2.10-8.00 Aug 14, 2024 07:54 PM [facility] GLUCOSE,BLOOD-poct (STL) BLOOD Specimen Type: BLOOD Comment: Test Performed by: [id number] Meter #: [id number] Ordering Provider: DEIRDRE WILD Report Released Date/Time: Aug 14, 2024 08:15 PM Reporting Lab: [address] [address] Performing Lab: [address] [address] GLUCOSE,BLOOD-poct (STL) 112 mg/dL H 72-99 Aug 14, 2024 04:10 PM [facility] GLUCOSE,BLOOD-poct (STL) BLOOD Specimen Type: BLOOD Comment: Test Performed by: [id number] Meter #: [id number] Ordering Provider: DEIRDRE WILD Report Released Date/Time: Aug 14, 2024 04:43 PM Reporting Lab: [address] [address] Performing Lab: [address] [address] GLUCOSE,BLOOD-poct (STL) 115 mg/dL H 72-99 Aug 14, 2024 02:05 PM [facility] COMPREHENSIVE METABOLIC PANEL PLASMA Specimen Type: PLASMA Comment: No hemolysis noted. Ordering Provider: GILSON OG Report Released Date/Time: Aug 14, 2024 06:56 AM Reporting Lab: [address] [address] Performing Lab: [address] [address] CREATININE 0.75 mg/dL 0.7-1.3 UREA NITROGEN 9.3 [...] >60 Aug 14, 2024 02:05 PM [facility] CBC BLOOD Specimen Type: BLOOD Comment: No platelet clots or clumping detected. Ordering Provider: GILSON OG Report Released Date/Time: Aug 10, 2024 04:01 PM Reporting Lab: [facility] [address] [facility] [address] Performing Lab: [facility] [address] [facility] [address] WBC 4.6 10*3/uL 3.6-11.2 RBC 3.06 10*6/uL [...] 10*3/uL 2.10-8.00 Aug 14, 2024 10:12 AM [facility] GLUCOSE,BLOOD-poct (STL) BLOOD Specimen Type: BLOOD Comment: Test Performed by: [id number] Meter #: [id number] Ordering Provider: ONEA,MED Report Released Date/Time: Aug 14, 2024 10:13 AM Reporting Lab: [place] [phone] Performing Lab: [place] [phone] GLUCOSE,BLOOD-poct (STL) 112 mg/dL H 72-99 Aug 14, 2024 09:20 AM [facility] PT/INR NEW (STL-MA) PLASMA Specimen Type: PLAS MA No comment entered. Ordering Provider: GILSON OG Report Released Date/Time: Aug 14, 2024 09:06 AM Reporting Lab: [place] [address] Performing Lab: [place] [address] PROTIME 13.6 s H 9.4-12.5 INR VALUE 1.2 {INR} Aug 14, 2024 06:51 AM [facility] CBC BLOOD Specimen Type: BLOOD No comment entered. Ordering Provider: CASH CLOUD Report Released Date/Time: Aug 12, 2024 01:47 PM Reporting Lab: [place] [phone] Performing Lab: [place] [phone] WBC 3.8 10*3/uL 3.6-11.2 RBC 2.56 10*6/uL [...] 10*3/uL 2.10-8.00 Aug 14, 2024 06:03 AM [facility] GLUCOSE,BLOOD-poct (STL) BLOOD Specimen Type: BLOOD Comment: Test Performed by: [id number] Meter #: [id number] Ordering Provider: DEIRDRE WILD Report Released Date/Time: Aug 14, 2024 06:07 AM Reporting Lab: [address] [address] Performing Lab: [address] [address] GLUCOSE,BLOOD-poct (STL) 114 mg/dL H 72-99 Aug 13, 2024 09:11 PM [facility] GLUCOSE,BLOOD-poct (STL) BLOOD Specimen Type: BLOOD Comment: Test Performed by: [id number] Meter #: [id number] Ordering Provider: DEIRDRE WILD Report Released Date/Time: Aug 13, 2024 09:40 PM Reporting Lab: [address] [address] Performing Lab: [address] [address] GLUCOSE,BLOOD-poct (STL) 160 mg/dL H 72-99 Aug 13, 2024 07:10 PM [facility] COMPREHENSIVE METABOLIC PANEL PLASMA Specimen Type: PLASMA Comment: No hemolysis noted. Ordering Provider: GILSON OG Report Released Date/Time: Aug 14, 2024 07:03 AM Reporting Lab: [address] [address] Performing Lab: [place] [address] [facility] [address] CREATININE 0.75 mg/dL 0.7-1.3 UREA NITROGEN 10.3 [...] >60 Aug 13, 2024 07:10 PM [facility] CRP PLASMA Specimen Type: PLASM A No comment entered. Ordering Provider: CASH CLOUD Report Released Date/Time: Aug 12, 2024 10:14 AM Reporting Lab: [address] [address] Performing Lab: [address] [address] CRP 0.7 mg/dL H 0-0.5 Aug 13, 2024 07:10 PM [facility] CBC BLOOD Specimen Type: BLOOD No comment entered. Ordering Provider: GILSON OG Report Released Date/Time: Aug 10, 2024 04:01 PM Reporting Lab: [address] [address] Performing Lab: [address] [address] WBC 5.3 10*3/uL 3.6-11.2 RBC 2.67 10*6/uL [...] 10*3/uL 2.10-8.00 Aug 13, 2024 04:35 PM [facility] GLUCOSE,BLOOD-poct (STL) BLOOD Specimen Type: BLOOD Comment: Test Performed by: [id number] Meter #: [id number] Ordering Provider: DEIRDRE WILD Report Released Date/Time: Aug 13, 2024 05:18 PM Reporting Lab: [address] [address] Performing Lab: [address] [address] GLUCOSE,BLOOD-poct (L) 113 mg/dL H 72-99 Aug 13, 2024 02:36 PM [facility] CBC BLOOD Specimen Type: BLOOD No comment entered. Ordering Provider: GILSON OG Report Released Date/Time: Aug 10, 2024 04:01 PM Reporting Lab: [address] [address] Performing Lab: [address] [address] WBC 5.8 10*3/uL 3.6-11.2 RBC 2.77 10*6/uL [...] 10*3/uL 2.10-8.00 Aug 13, 2024 11:37 AM [facility] GLUCOSE,BLOOD-poct (STL) BLOOD Specimen Type: BLOOD Comment: Test Performed by: [id number] Meter #: [id number] Ordering Provider: DEIRDRE WILD Report Released Date/Time: Aug 13, 2024 11:38 AM Reporting Lab: [address] [address] Performing Lab: [address] [address] GLUCOSE,BLOOD-poct (STL) 131 mg/dL H 72-99 Aug 13, 2024 08:06 AM [facility] CBC BLOOD Specimen Type: BLOOD Comment: no clot Ordering Provider: CASH CLOUD Report Released Date/Time: Aug 12, 2024 01:47 PM Reporting Lab: [address] [address] Performing Lab: [address] [place] [address] WBC 3.0 10*3/uL L 3.6-11.2 RBC 2.61 [...] 10*3/uL 2.10-8.00 Aug 13, 2024 04:45 AM [facility] GLUCOSE,BLOOD-poct (STL) BLOOD Specimen Type: BLOOD Comment: Test Performed by: [id number] Meter #: [id number] Ordering Provider: DEIRDRE WILD Report Released Date/Time: Aug 13, 2024 06:18 AM Reporting Lab: [address] [address] Performing Lab: [address] [address] GLUCOSE,BLOOD-poct (STL) 139 mg/dL H 72-99 Aug 12, 2024 10:10 PM [facility] GLUCOSE,BLOOD-poct (STL) BLOOD Specimen Type: BLOOD Comment: Test Performed by: [id number] Meter #: [id number] Ordering Provider: DEIRDRE WILD Report Released Date/Time: Aug 12, 2024 10:50 PM Reporting Lab: [address] [address] Performing Lab: [address] [address] GLUCOSE,BLOOD-poct (STL) 105 mg/dL H 72-99 Aug 12, 2024 08:48 PM [facility] CBC BLOOD Specimen Type: BLOOD Comment: SEE PREVIOUS DIFFERENTIAL ON 08/12/24 @ 1807 Ordering Provider: GILSON OG Report Released Date/Time: Aug 10, 2024 04:01 PM Reporting Lab: [address] [address] Performing Lab: [address] [address] WBC 5.0 10*3/uL 3.6-11.2 RBC 2.78 10*6/uL [...] 1.0-7.0 Aug 12, 2024 08:48 PM [facility] CRP PLASMA Specimen Type: PLASM A No comment entered. Ordering Provider: CASH CLOUD Report Released Date/Time: Aug 12, 2024 10:14 AM Reporting Lab: [address] [address] Performing Lab: [address] [address] CRP 0.6 mg/dL H 0-0.5 Aug 12, 2024 04:51 PM [facility] GLUCOSE,BLOOD-poct (STL) BLOOD Specimen Type: BLOOD Comment: Test Performed by: [id number] Meter #: [id number] Ordering Provider: DEIRDRE WILD Report Released Date/Time: Aug 12, 2024 05:07 PM Reporting Lab: [address] [address] Performing Lab: [address] [address] GLUCOSE,BLOOD-poct (STL) 135 mg/dL H 72-99 Aug 12, 2024 02:33 PM [facility] CBC BLOOD Specimen Type: BLOOD No comment entered. Ordering Provider: GILSON OG Report Released Date/Time: Aug 10, 2024 04:01 PM Reporting Lab: [address] [address] Performing Lab: [address] [address] WBC 4.0 10*3/uL 3.6-11.2 RBC 2.56 10*6/uL [...] 10*3/uL 2.10-8.00 Aug 12, 2024 11:51 AM [facility] GLUCOSE,BLOOD-poct (STL) BLOOD Specimen Type: BLOOD Comment: Test Performed by: [id number] Meter #: [id number] Ordering Provider: DEIRDRE WILD Report Released Date/Time: Aug 12, 2024 12:26 PM Reporting Lab: [address] [address] Performing Lab: [address] [address] GLUCOSE,BLOOD-poct (STL) 139 mg/dL H 72-99 Aug 12, 2024 07:35 AM [facility] CBC BLOOD Specimen Type: BLOOD Comment: prev diff 08/11/24. Ordering Provider: GILSON OG Report Released Date/Time: Aug 10, 2024 04:01 PM Reporting Lab: [address] [address] Performing Lab: [address] [address] WBC 3.0 10*3/uL L 3.6-11.2 RBC 2.54 [...] 0.00-0. 20 Aug 12, 2024 05:49 AM [facility] GLUCOSE,BLOOD-poct (STL) BLOOD Specimen Type: BLOOD Comment: Test Performed by: [id number] Meter #: [id number] Ordering Provider: DEIRDRE WILD Report Released Date/Time: Aug 12, 2024 05:50 AM Reporting Lab: [address] [address] Performing Lab: [address] [address] GLUCOSE,BLOOD-poct (STL) 112 mg/dL H 72-99 Aug 12, 2024 01:45 AM [facility] CBC BLOOD Specimen Type: BLOOD Comment: SEE PREVIOUS DIFFERENTIAL ON 08/12/24 @ 0239 [facility] Ordering Provider: GILSON OG Report Released Date/Time: Aug 10, 2024 04:01 PM Reporting Lab: [address] [address] Performing Lab: [address] [address] WBC 2.6 10*3/uL L 3.6-11.2 RBC 2.42 [...] Aug 11, 2024 09:25 PM [facility] CBC BLOOD Specimen Type: BLOOD No comment entered. Ordering Provider: GILSON OG Report Released Date/Time: Aug 10, 2024 04:01 PM Reporting Lab: [address] [address] Performing Lab: [address] [address] WBC 3.6 10*3/uL 3.6-11.2 RBC 2.54 10*6/uL [...] 10*3/uL 2.10-8.00 Aug 11, 2024 09:17 PM [facility] GLUCOSE,BLOOD-poct (STL) BLOOD Specimen Type: BLOOD Comment: Test Performed by: [id number] Meter #: [id number] Ordering Provider: DEIRDRE WILD Report Released Date/Time: Aug 11, 2024 09:21 PM Reporting Lab: [place] [id number] Performing Lab: [address] [address] GLUCOSE,BLOOD-poct (STL) 167 mg/dL H 72-99 Aug 11, 2024 04:42 PM [facility] CBC BLOOD Specimen Type: BLOOD No comment entered. Ordering Provider: YVONNE HARRISON Report Released Date/Time: Aug 11, 2024 04:41 PM Reporting Lab: [address] [address] Performing Lab: [address] [address] WBC 4.0 10*3/uL 3.6-11.2 RBC 2.74 10*6/uL [...] 10*3/uL 2.10-8.00 Aug 11, 2024 04:30 PM [facility] GLUCOSE,BLOOD-poct (STL) BLOOD Specimen Type: BLOOD Comment: Test Performed by: [id number] Meter #: [id number] Ordering Provider: DEIRDRE WILD Report Released Date/Time: Aug 11, 2024 06:06 PM Reporting Lab: [address] [address] Performing Lab: [address] [address] GLUCOSE,BLOOD-poct (STL) 95 mg/dL 72-99 Aug 11, 2024 11:08 AM [facility] GLUCOSE,BLOOD-poct (STL) BLOOD Specimen Type: BLOOD Comment: Test Performed by: [id number] Meter #: [id number] Ordering Provider: DEIRDRE WILD Report Released Date/Time: Aug 11, 2024 11:10 AM Reporting Lab: [address] [address] Performing Lab: [address] [address] GLUCOSE,BLOOD-poct (L) 117 mg/dL H 72-99 Aug 11, 2024 06:00 AM [facility] PT/INR NEW (STL-MA) PLASMA Specimen Type: PLAS MA No comment entered. Ordering Provider: GILSON OG Report Released Date/Time: Aug 10, 2024 06:20 PM Reporting Lab: [address] [address] Performing Lab: [address] [address] PROTIME 15.5 s H 9.4-12.5 INR VALUE 1.4 {INR} Aug 11, 2024 06:00 AM [facility] IRON/TIBC PROFILE SERUM Specimen Type: SERUM No comment entered. Ordering Provider: GILSON OG Report Released Date/Time: Aug 10, 2024 04:02 PM Reporting Lab: [address] [address] Performing Lab: [address] [address] TIBC 263 ug/dL 250-450 TRANSFERRIN 210 mg/dL 163-344 IRON SATURATION 8 L 20-50 IRON 21 ug/dL L 65-175 Aug 11, 2024 06:00 AM [facility] HEPATIC FUNTION PANEL (STL) PLASMA Specimen Ty pe: PLASMA No comment entered. Ordering Provider: GILSON OG Report Released Date/Time: Aug 10, 2024 04:02 PM Reporting Lab: [address] [address] Performing Lab: [address] [address] PROTEIN 5.4 g/dL L 6-8.6 ALBUMIN 2.6 g/dL L 3.4-5 TOTAL BILIRUBIN 0.8 mg/dL 0.2-1.2 ALKALINE PHOSPHATASE 72 U/L 40-150 AST/SGOT 28 U/L 5-34 ALT/SGPT 10 U/L 8-40 CONJ. BILIRUBIN 0.4 mg/dL 0-0.5 Aug 11, 2024 06:00 AM [facility] APTT PLASMA Specimen Type: PLASM A No comment entered. Ordering Provider: GILSON OG Report Released Date/Time: Aug 10, 2024 06:20 PM Reporting Lab: [address] [address] Performing Lab: [address] [address] APTT 25.5 s L 26.7-39.9 Aug 11, 2024 06:00 AM [facility] CBC BLOOD Specimen Type: BLOOD No comment entered. Ordering Provider: GILSON OG Report Released Date/Time: Aug 10, 2024 04:01 PM Reporting Lab: [address] [address] Performing Lab: [address] [address] WBC 2.4 10*3/uL L 3.6-11.2 RBC 2.42 [...] L 2.10-8.00 Aug 10, 2024 09:00 PM [facility] BASIC METABOLIC PANEL PLASMA Specimen Type: PL ASMA Comment: No hemolysis noted. Ordering Provider: GILSON OG Report Released Date/Time: Aug 10, 2024 04:01 PM Reporting Lab: [address] [address] Performing Lab: [address] [address] CREATININE 0.84 mg/dL 0.7-1.3 UREA NITROGEN 16.8 mg/dL 9.0-25.0 GLUCOSE 104 mg/dL H 72-99 SODIUM 133 meq/L L 136-145 POTASSIUM 3.5 meq/L 3.5-5 CHLORIDE 103 meq/L 98-107 CARBON DIOXIDE 23 meq/L 22-31 CALCIUM 8.4 mg/dL 8.4-10.4 EGFR (CKD-EPI 2020) 95.6 >60 Aug 10, 2024 09:00 PM [facility] CBC BLOOD Specimen Type: BLOOD No comment entered. Ordering Provider: GILSON OG Report Released Date/Time: Aug 10, 2024 04:01 PM Reporting Lab: [address] [address] Performing Lab: [address] [address] WBC 4.3 10*3/uL 3.6-11.2 RBC 2.22 10*6/uL [...] 10*3/uL 2.10-8.00 Aug 10, 2024 06:30 PM [facility] MRSA SURVL NARES DNA NARES Specimen Type: [...] 10, 2024 04:01 PM Reporting Lab: [address] [address] Performing Lab: [address] [address] MRSA SURVL NARES DNA Negative Negative Aug 10, 2024 06:02 PM [facility] GLUCOSE,BLOOD-poct (STL) BLOOD Specimen Type: BLOOD Comment: Test Performed by: [id number] Meter #: [id number] Ordering Provider: YASIR SANZ MD Report Released Date/Time: Aug 10, 2024 06:04 PM Reporting Lab: [address] [address] Performing Lab: [address] [address] GLUCOSE,BLOOD-poct (STL) 94 mg/dL 72-99 Aug 10, 2024 02:12 PM [facility] PT/INR NEW (STL-MA) PLASMA Specimen Type: PLAS MA No comment entered. Ordering Provider: YASIR SANZ MD Report Released Date/Time: Aug 10, 2024 02:00 PM Reporting Lab: [address] [address] [facility] [address] PROTIME 13.8 s H 9.4-12.5 INR VALUE 1.2 {INR} Aug 10, 2024 02:12 PM [facility] APTT PLASMA Specimen Type: PLASM A No comment entered. Ordering Provider: YASIR SANZ MD Report Released Date/Time: Aug 10, 2024 02:00 PM Reporting Lab: [address] [address] Performing Lab: [address] [address] APTT 20.1 s L 26.7-39.9 Aug 10, 2024 11:30 AM [facility] TSH W/ REFLEX FT4 (STL) PLASMA Specimen Type: PLASMA No comment entered. Ordering Provider: TONY SIMMONS Report Released Date/Time: Aug 02, 2024 12:33 PM Reporting Lab: [place] [address] [facility] [address] Performing Lab: [address] [address] TSH 3.991 u[IU]/mL 0.47-5 Aug 10, 2024 11:30 AM [facility] COMPREHENSIVE METABOLIC PANEL PLASMA Specimen Type: PLASMA Comment: No hemolysis noted. Ordering Provider: TONY SIMMONS Report Released Date/Time: Aug 02, 2024 12:33 PM Reporting Lab: [address] [address] Performing Lab: [address] [address] CREATININE 0.82 mg/dL 0.7-1.3 UREA NITROGEN 21.7 [...] >60 Aug 10, 2024 11:30 AM [facility] CBC BLOOD Specimen Type: BLOOD No comment entered. Ordering Provider: TONY SIMMONS Report Released Date/Time: Aug 02, 2024 12:33 PM Reporting Lab: [address] [address] Performing Lab: [address] [address] WBC 7.4 10*3/uL 3.6-11.2 RBC 2.81 10*6/uL [...] 0.00-0. 20 Aug 02, 2024 11:53 AM [facility] PROTEIN ELECTROPHORESIS BLOOD SERUM Specimen Type: SERUM Comment: Reference Range: None Detected NOTE: THIS RESULT IS FLAGGED ABNORMAL Evaluation reveals a restricted band (M-spike) migrating in the gamma globulin region. If not already requested, Immunofixation should be considered. Test Performed by [facility], [facility], [address] [place], [place] Tristin Iyer M.D., Ph.D., Director of Laboratories , CLIA [id number] PREVIOUS SUGAR: IgG [place] Ordering Provider: TONY SIMMONS Report Released Date/Time: Jul 13, 2024 01:49 PM Reporting Lab: [facility] [address] [place] [address] Performing Lab: [facility] [address] [facility] ALPHA-1 GLOBULIN(SO-PB-STL) 0.4 g/dL H 0.2 -0.3 [...] g/dL H Aug 02, 2024 11:53 AM [facility] IGA (STL) PLASMA Specimen Type: PLASM A Comment: No hemolysis noted. Ordering Provider: TONY SIMMONS Report Released Date/Time: Jul 13, 2024 01:49 PM Reporting Lab: [facility] [address] [facility] [address] Performing Lab: [address] [address] IGA (STL) 113 mg/dL 63-484 Aug 02, 2024 11:53 AM [facility] IGG (STL) PLASMA Specimen Type: PLASM A Comment: No hemolysis noted. Ordering Provider: TONY SIMMONS Report Released Date/Time: Jul 13, 2024 01:49 PM Reporting Lab: [facility] [address] [facility] [address] Performing Lab: [address] [address] IGG (STL) 1898 mg/dL H 540-1822 Aug 02, 2024 11:53 AM [facility] TSH W/ REFLEX FT4 (STL) PLASMA Specimen Type: PLASMA No comment entered. Ordering Provider: TONY SIMMONS Report Released Date/Time: Jul 13, 2024 01:49 PM Reporting Lab: [address] [address] Performing Lab: [address] [address] TSH 2.182 u[IU]/mL 0.47-5 Aug 02, 2024 11:53 AM [facility] IGM (STL) PLASMA Specimen Type: PLASM A Comment: No hemolysis noted. Ordering Provider: TONY SIMMONS Report Released Date/Time: Jul 13, 2024 01:49 PM Reporting Lab: [address] [address] Performing Lab: [address] [address] IGM (STL) 104 mg/dL 22-240 Aug 02, 2024 11:53 AM [facility] KAPPA/LAMBDA FREE LC PANEL (STL-PB) SERUM Spe cimen Type: SERUM No comment entered. Ordering Provider: TONY SIMMONS Report Released Date/Time: Jul 13, 2024 01:49 PM Reporting Lab: [address] [address] Performing Lab: [address] [address] KAPPA FREE LC (STL) 102.7 mg/L H 2.4-20.7 LAMBDA FREE LC (STL) 32.2 mg/L H 4.2-27.7 KAPPA/LAMBDA RATIO (STL) 3.19 H 0.22-1. 74 Aug 02, 2024 11:53 AM [facility] COMPREHENSIVE METABOLIC PANEL PLASMA Specimen Type: PLASMA Comment: No hemolysis noted. Ordering Provider: TONY SIMMONS Report Released Date/Time: Jul 13, 2024 01:49 PM Reporting Lab: [address] [address] Performing Lab: [address] [address] CREATININE 0.82 mg/dL 0.7-1.3 UREA NITROGEN 12.2 [...] >60 Aug 02, 2024 11:53 AM [facility] CBC BLOOD Specimen Type: BLOOD Comment: No Clots in specimen Ordering Provider: TONY SIMMONS Report Released Date/Time: Jul 13, 2024 01:49 PM Reporting Lab: [address] [address] Performing Lab: [address] [address] WBC 2.2 10*3/uL L 3.6-11.2 RBC 3.44 [...] L 2.10-8.00 Aug 01, 2024 10:10 AM [facility] GLUCOSE,BLOOD-poct (STL) BLOOD Specimen Type: BLOOD Comment: Test Performed by: [id number] Meter #: [id number] Ordering Provider: SUKHJINDER CHAHAL Report Released Date/Time: Aug 01, 2024 10:17 AM Reporting Lab: [address] [address] Performing Lab: [address] [address] GLUCOSE,BLOOD-poct (STL) 101 mg/dL H 72-99 Jul 27, 2024 01:54 PM [facility] TROPONIN I PLASMA Specimen Type: PLASM A Comment: No hemolysis noted. Ordering Provider: ELIZABETH COATES Report Released Date/Time: Jul 27, 2024 03:39 PM Reporting Lab: [address] [address] Performing Lab: [address] [address] TROPONIN I 0.011 ng/mL 0-0.033 Jul 27, 2024 01:54 PM [facility] BRAIN NATRIURETIC PEPTIDE PLASMA Specimen Type : PLASMA No comment entered. Ordering Provider: ELIZABETH COATES Report Released Date/Time: Jul 27, 2024 03:39 PM Reporting Lab: [address] [address] Performing Lab: [address] [address] BRAIN NATRIURETIC PEPTIDE 257.2 pg/mL H 0- 100 Jul 27, 2024 01:54 PM [facility] COMPREHENSIVE METABOLIC PANEL PLASMA Specimen Type: PLASMA Comment: No hemolysis noted. Ordering Provider: ELIZABETH COATES Report Released Date/Time: Jul 27, 2024 03:39 PM Reporting Lab: [address] [address] Performing Lab: [address] [address] CREATININE 0.70 mg/dL 0.7-1.3 UREA NITROGEN 7.4 [...] >60 Jul 27, 2024 01:54 PM [facility] CBC BLOOD Specimen Type: BLOOD No comment entered. Ordering Provider: ELIZABETH COATES Report Released Date/Time: Jul 27, 2024 03:39 PM Reporting Lab: [address] [address] Performing Lab: [facility] [address] [facility] [address] WBC 3.2 10*3/uL L 3.6-11.2 RBC 3.12 [...] 10*3/uL 2.10-8.00 Jul 21, 2024 02:00 PM [facility] B12 SERUM Specimen Type: SERUM No comment entered. Ordering Provider: JORJE DENSON Report Released Date/Time: Jul 21, 2024 12:54 PM Reporting Lab: [facility] [address] [facility] [address] Performing Lab: [facility] [address] [place] [address] B12 1584 pg/mL H 213-816 Jul 21, 2024 02:00 PM [facility] FOLATE (STL-MA) SERUM Specimen Type: SERUM No comment entered. Ordering Provider: JORJE DENSON Report Released Date/Time: Jul 21, 2024 12:54 PM Reporting Lab: [address] [address] Performing Lab: [address] [address] FOLATE (STL-MA) 9.1 ng/mL 7-20 Jul 21, 2024 02:00 PM [facility] IRON/TIBC PROFILE SERUM Specimen Type: SERUM No comment entered. Ordering Provider: JORJE DENSON Report Released Date/Time: Jul 21, 2024 12:54 PM Reporting Lab: [address] [address] Performing Lab: [address] [address] TIBC 243 ug/dL L 250-450 TRANSFERRIN 194 mg/dL 163-344 IRON SATURATION 20 20-50 IRON 49 ug/dL L 65-175 Jul 21, 2024 02:00 PM [facility] CBC BLOOD Specimen Type: BLOOD Comment: Manual differential performed 07/20/2024 No clots Ordering Provider: JORJE DENSON Report Released Date/Time: Jul 21, 2024 12:54 PM Reporting Lab: [address] [address] Performing Lab: [address] [address] WBC 5.6 10*3/uL 3.6-11.2 RBC 2.87 10*6/uL [...] H 1.0-7.0 Jul 20, 2024 08:55 PM [facility] PT/INR NEW (STL-MA) PLASMA Specimen Type: PLAS MA No comment entered. Ordering Provider: AURA ZACARIAS Report Released Date/Time: Jul 18, 2024 01:30 PM Reporting Lab: [address] [address] Performing Lab: [address] [address] PROTIME 12.8 s H 9.4-12.5 INR VALUE 1.1 {INR} Jul 20, 2024 08:55 PM [facility] BASIC METABOLIC PANEL PLASMA Specimen Type: PL ASMA Comment: No hemolysis noted. Ordering Provider: AURA ZACARIAS Report Released Date/Time: Jul 18, 2024 01:30 PM Reporting Lab: [address] [address] Performing Lab: [address] [address] CREATININE 0.74 mg/dL 0.7-1.3 UREA NITROGEN 15.1 mg/dL 9.0-25.0 GLUCOSE 121 mg/dL H 72-99 SODIUM 130 meq/L L 136-145 POTASSIUM 3.7 meq/L 3.5-5 CHLORIDE 100 meq/L 98-107 CARBON DIOXIDE 20 meq/L L 22-31 CALCIUM 8.5 mg/dL 8.4-10.4 EGFR (CKD-EPI 2020) 99.3 >60 Jul 20, 2024 08:55 PM [facility] CBC BLOOD Specimen Type: BLOOD No comment entered. Ordering Provider: AURA ZACARIAS Report Released Date/Time: Jul 18, 2024 01:30 PM Reporting Lab: [facility] [address] [place] [address] Performing Lab: [facility] [address] [place] [address] WBC 5.1 10*3/uL 3.6-11.2 RBC 2.90 10*6/uL [...] 2.10-8.00 Jul 20, 2024 01:13 PM [facility] CBC BLOOD Specimen Type: BLOOD No comment entered. Ordering Provider: AURA ZACARIAS Report Released Date/Time: Jul 18, 2024 01:30 PM Reporting Lab: [facility] [address] [place] [address] Performing Lab: [place] [address] [facility] [address] WBC 5.6 10*3/uL 3.6-11.2 RBC 3.11 10*6/uL [...] 10*3/uL 2.10-8.00 Jul 19, 2024 06:42 AM [facility] PT/INR NEW (STL-MA) PLASMA Specimen Type: PLAS MA No comment entered. Ordering Provider: AURA ZACARIAS Report Released Date/Time: Jul 18, 2024 01:30 PM Reporting Lab: [address] [address] Performing Lab: [address] [address] PROTIME 16.4 s H 9.4-12.5 INR VALUE 1.5 {INR} Jul 19, 2024 06:42 AM [facility] BASIC METABOLIC PANEL PLASMA Specimen Type: PL ASMA Comment: No hemolysis noted. Ordering Provider: AURA ZACARIAS Report Released Date/Time: Jul 18, 2024 01:30 PM Reporting Lab: [address] [address] Performing Lab: [address] [address] CREATININE 0.94 mg/dL 0.7-1.3 UREA NITROGEN 23.8 mg/dL 9.0-25.0 GLUCOSE 87 mg/dL 72-99 SODIUM 129 meq/L L 136-145 POTASSIUM 3.4 meq/L L 3.5-5 CHLORIDE 102 meq/L 98-107 CARBON DIOXIDE 20 meq/L L 22-31 CALCIUM 8.1 mg/dL L 8.4-10.4 EGFR (CKD-EPI 2020) 88.9 >60 Jul 19, 2024 06:42 AM [facility] CBC BLOOD Specimen Type: BLOOD No comment entered. Ordering Provider: AURA ZACARIAS Report Released Date/Time: Jul 18, 2024 01:30 PM Reporting Lab: [address] [address] Performing Lab: [address] [address] WBC 5.1 10*3/uL 3.6-11.2 RBC 2.45 10*6/uL [...] 1.0-7.0 Jul 18, 2024 08:51 PM [facility] CBC BLOOD Specimen Type: BLOOD No comment entered. Ordering Provider: AURA ZACARIAS Report Released Date/Time: Jul 18, 2024 01:30 PM Reporting Lab: [address] [address] Performing Lab: [address] [address] WBC 6.2 10*3/uL 3.6-11.2 RBC 2.44 10*6/uL [...] 2.10-8.00 Jul 18, 2024 04:19 PM [facility] CBC BLOOD Specimen Type: BLOOD No comment entered. Ordering Provider: AURA ZACARIAS Report Released Date/Time: Jul 18, 2024 01:30 PM Reporting Lab: [address] [address] Performing Lab: [address] [address] WBC 6.1 10*3/uL 3.6-11.2 RBC 2.57 10*6/uL [...] 10*3/uL 2.10-8.00 Jul 18, 2024 06:32 AM [facility] LACTIC ACID (STL-PB) PLASMA Specimen Type: NEIL SMA No comment entered. Ordering Provider: CAMDEN PATTON Report Released Date/Time: Jul 17, 2024 07:38 PM Reporting Lab: [address] [address] Performing Lab: [address] [address] LACTIC ACID (STL-PB) 1.3 mmol/L 0.5-2.0 Jul 18, 2024 06:32 AM [facility] PT/INR NEW (L-MA) PLASMA Specimen Type: PLAS MA No comment entered. Ordering Provider: CAMDEN PATTON Report Released Date/Time: Jul 17, 2024 07:38 PM Reporting Lab: [address] [address] Performing Lab: [address] [address] PROTIME 19.1 s H 9.4-12.5 INR VALUE 1.7 {INR} Jul 18, 2024 06:32 AM [facility] CBC BLOOD Specimen Type: BLOOD Comment: HGB Called to : Dr. Posadas MOD at: [id number] on: 07/18/24 by: [email or web address] Critical Verbal Readback Performed Ordering Provider: CAMDEN PATTON Report Released Date/Time: Jul 17, 2024 07:38 PM Reporting Lab: [facility] [address] [place] [address] Performing Lab: [address] [address] WBC 7.0 10*3/uL 3.6-11.2 RBC 2.04 10*6/uL [...] 10*3/uL 2.10-8.00 Jul 18, 2024 06:32 AM [facility] VANCOMYCIN (STL) PLASMA Specimen Type: PLASM A No comment entered. Ordering Provider: CAMDEN PATTON Report Released Date/Time: Jul 17, 2024 07:38 PM Reporting Lab: [address] [address] Performing Lab: [address] [address] VANCOMYCIN (STL) 5.0 ug/mL L 10-15 Jul 18, 2024 06:32 AM [facility] MAGNESIUM PLASMA Specimen Type: PLASM A Comment: No hemolysis noted. Ordering Provider: CAMDEN PATTON Report Released Date/Time: Jul 17, 2024 07:38 PM Reporting Lab: [address] [address] Performing Lab: [address] [address] MAGNESIUM 1.5 mg/dL L 1.6-2.6 Jul 18, 2024 06:32 AM [facility] PHOSPHOROUS PLASMA Specimen Type: PLASM A Comment: No hemolysis noted. Ordering Provider: CAMDEN PATTON Report Released Date/Time: Jul 17, 2024 07:38 PM Reporting Lab: [address] [address] Performing Lab: [address] [address] PHOSPHOROUS 2.2 mg/dL L 2.3-4.7 Jul 18, 2024 06:32 AM [facility] COMPREHENSIVE METABOLIC PANEL PLASMA Specimen Type: PLASMA Comment: No hemolysis noted. Ordering Provider: CAMDEN PATTON Report Released Date/Time: Jul 17, 2024 07:38 PM Reporting Lab: [address] [address] Performing Lab: [address] [address] CREATININE 1.08 mg/dL 0.7-1.3 UREA NITROGEN 40.5 [...] 75.2 >60 Jul 18, 2024 12:05 AM [facility] HGB,HCT,PLT BLOOD Specimen Type: BLOOD No comment entered. Ordering Provider: ROSA VARGAS Report Released Date/Time: Jul 17, 2024 09:07 PM Reporting Lab: [address] [address] Performing Lab: [address] [address] HGB 7.3 g/dL L 13.1-16.8 HCT 21.0 L 38.2-48.4 PLT 64 10*3/uL L 150-400 Jul 17, 2024 07:45 PM [facility] MRSA SURVL NARES DNA NARES Specimen Type: [...] 17, 2024 07:38 PM Reporting Lab: [address] [address] Performing Lab: [address] [address] MRSA SURVL NARES DNA Negative Negative Jul 17, 2024 07:36 PM [facility] GLUCOSE,BLOOD-poct (STL) BLOOD Specimen Type: BLOOD Comment: Test Performed by: [id number] Meter #: [id number] Ordering Provider: CAMDEN PATTON Report Released Date/Time: Jul 17, 2024 07:48 PM Reporting Lab: [address] [address] Performing Lab: [place] [id number] GLUCOSE,BLOOD-poct (L) 98 mg/dL 72-99 Jul 17, 2024 07:35 PM [facility] BLOOD GAS PANEL ABG ([facility]) VENOUS BLOOD Specimen Type : VENOUS BLOOD Comment: normalcy status - Below absolute low-off instrument scale Test Performed by: [id number] Meter #: [id number] Ordering Provider: CAMDEN PATTON Report Released Date/Time: Jul 17, 2024 07:37 PM Reporting Lab: [facility] [address] [place] [address] Performing Lab: [address] [address] GEM PH 7.39 7.31-7.41 GEM PCO2 31 [...] TEMP 37.0 Jul 17, 2024 07:10 PM [facility] URINALYSIS W/ CX REFLEX (STL-PB) URINE Specim en Type: URINE No comment entered. Ordering Provider: CASEY BOONE Report Released Date/Time: Jul 17, 2024 04:24 PM Reporting Lab: [place] [address] [facility] [address] Performing Lab: [address] [address] URINE COLOR Light-Yellow Yellow U.BILIRUBIN Negative mg/dL Negative U.PH 6.0 5.0-8.0 APPEARANCE Clear Clear U.NITRITE Negative mg/dL Negative URN.GLUCOSE Normal mg/dL Negative URN.PROTEIN Negative mg/dL URN.UROBILINOGEN Normal mg/dL Normal URN.BLOOD Negative mg/dL Negative-Trace URN.KETONES Trace mg/dL Negative-Trace URN.LEUK.EST. Negative mg/dL Negative-Tr april URN.SPECIFIC GRAVITY 1.029 Jul 17, 2024 06:25 PM [facility] RETICULOCYTE PANEL BLOOD Specimen Type: BLOOD No comment entered. Ordering Provider: CASEY BOONE Report Released Date/Time: Jul 17, 2024 06:13 PM Reporting Lab: [place] [address] [facility] [address] Performing Lab: [place] [id number] RETIC RATIO 7.35 H 0.50-2.30 IRF 39.7 H 2.3-13.4 RETICULOCYTE HEMOGLOBIN EQUIVALENT 35.8 pg 28.2-36.6 RETIC COUNT,ABS 0.129 10*6/uL H 0.022-0.10 1 Jul 17, 2024 06:25 PM [facility] HAPTOGLOBIN (STL) PLASMA Specimen Type: PLASM A No comment entered. Ordering Provider: CASEY BOONE Report Released Date/Time: Jul 17, 2024 06:13 PM Reporting Lab: [place] [address] [facility] [address] Performing Lab: [place] [address] [facility] [address] HAPTOGLOBIN (STL) 93 mg/dL 44-215 Jul 17, 2024 06:25 PM [facility] LDH PLASMA Specimen Type: PLASM A No comment entered. Ordering Provider: CASEY BOONE Report Released Date/Time: Jul 17, 2024 06:13 PM Reporting Lab: [place] [address] [facility] [address] Performing Lab: [place] [address] [facility] [address] LDH 305 U/L H 125-243 Jul 17, 2024 06:25 PM [facility] CBC BLOOD Specimen Type: BLOOD Comment: HGB Called to : Watson White at: 1934 on:[id number] by: SHARON Critical Verbal Readback Performed Ordering Provider: CAMDEN PATTON Report Released Date/Time: Jul 17, 2024 07:09 PM Reporting Lab: [address] [address] Performing Lab: [address] [address] WBC 27.6 10*3/uL H 3.6-11.2 RBC 1.76 [...] H 2.10-8.00 Jul 17, 2024 04:59 PM [facility] BLOOD GAS PANEL ABG (STL) VENOUS BLOOD Specimen Type : VENOUS BLOOD Comment: Test Performed by: [id number] Meter #: [id number] Ordering Provider: CASEY BOONE Report Released Date/Time: Jul 17, 2024 05:00 PM Reporting Lab: [address] [address] Performing Lab: [address] [address] GEM PH 7.39 7.31-7.41 GEM PCO2 33 [...] TEMP 37.0 Jul 17, 2024 04:25 PM [facility] MAGNESIUM PLASMA Specimen Type: PLASM A Comment: No hemolysis noted. Ordering Provider: CASEY BOONE Report Released Date/Time: Jul 17, 2024 04:24 PM Reporting Lab: [address] [address] Performing Lab: [address] [address] MAGNESIUM 1.4 mg/dL L 1.6-2.6 Jul 17, 2024 04:25 PM [facility] PT/INR NEW (STL-MA) PLASMA Specimen Type: PLAS MA No comment entered. Ordering Provider: CASEY BOONE Report Released Date/Time: Jul 17, 2024 04:24 PM Reporting Lab: [address] [address] Performing Lab: [address] [address] PROTIME 25.3 s H 9.4-12.5 INR VALUE 2.3 {INR} Jul 17, 2024 04:25 PM [facility] COVID-19 DIAGNOSTIC (FLU/RSV)(STL) NASOPHARYNX Spec imen Type: [...] 17, 2024 04:24 PM Reporting Lab: [address] [address] Performing Lab: [address] [address] INFLUENZA A Negative Negative INFLUENZA B Negative Negative COVID-19 (STL-PB) Not Detected Not Detec nate RSV (Cepheid) NEGATIVE Negative Jul 17, 2024 04:25 PM [facility] COMPREHENSIVE METABOLIC PANEL PLASMA Specimen Type: PLASMA Comment: No hemolysis noted. Ordering Provider: CASEY BOONE Report Released Date/Time: Jul 17, 2024 04:24 PM Reporting Lab: [address] [address] Performing Lab: [address] [address] CREATININE 1.25 mg/dL 0.7-1.3 UREA NITROGEN 47.0 [...] >60 Jul 17, 2024 04:25 PM [facility] CBC BLOOD Specimen Type: BLOOD No comment entered. Ordering Provider: CASEY BOONE Report Released Date/Time: Jul 17, 2024 04:24 PM Reporting Lab: [facility] [address] [facility] [address] Performing Lab: [facility] [address] [facility] [address] WBC 42.4 10*3/uL H 3.6-11.2 RBC 2.20 [...] H 2.10-8.00 Jul 13, 2024 12:39 PM [facility] PHOSPHOROUS PLASMA Specimen Type: PLASM A Comment: No hemolysis noted. Ordering Provider: TONY SIMMONS Report Released Date/Time: Jun 07, 2024 01:01 PM Reporting Lab: [facility] [address] [facility] [address] Performing Lab: [facility] [address] [facility] [address] PHOSPHOROUS 2.4 mg/dL 2.3-4.7 Jul 13, 2024 12:39 PM [facility] TSH W/ REFLEX FT4 (STL) PLASMA Specimen Type: PLASMA No comment entered. Ordering Provider: TONY SIMMONS Report Released Date/Time: Jun 07, 2024 01:01 PM Reporting Lab: [facility] [address] [facility] [address] Performing Lab: [facility] [address] [facility] [address] TSH 1.431 u[IU]/mL 0.47-5 Jul 13, 2024 12:39 PM [facility] MAGNESIUM PLASMA Specimen Type: PLASM A Comment: No hemolysis noted. Ordering Provider: TONY SIMMONS Report Released Date/Time: Jun 07, 2024 01:01 PM Reporting Lab: [facility] [address] [facility] [address] Performing Lab: [facility] [address] [facility] [address] MAGNESIUM 2.0 mg/dL 1.6-2.6 Jul 13, 2024 12:39 PM [facility] COMPREHENSIVE METABOLIC PANEL PLASMA Specimen Type: PLASMA Comment: No hemolysis noted. Ordering Provider: TONY SIMMONS Report Released Date/Time: Jun 07, 2024 01:01 PM Reporting Lab: [address] [address] Performing Lab: [address] [address] CREATININE 0.75 mg/dL 0.7-1.3 UREA NITROGEN 21.3 [...] >60 Jul 13, 2024 12:39 PM [facility] CBC BLOOD Specimen Type: BLOOD Comment: no clot Ordering Provider: TONY SIMMONS Report Released Date/Time: Jun 07, 2024 01:01 PM Reporting Lab: [address] [address] Performing Lab: [address] [address] WBC 3.0 10*3/uL L 3.6-11.2 RBC 3.83 [...] 10*3/uL 2.10-8.00 Jul 13, 2024 12:38 PM [facility] ALPHA-FETOPROTEIN(STL-PB) SERUM Specimen Type : SERUM No comment entered. Ordering Provider: CRYSTAL MASSEY Report Released Date/Time: Jul 04, 2024 03:26 PM Reporting Lab: [address] [address] Performing Lab: [address] [address] ALPHA-FETOPROTEIN(STL-PB) 16.86 ng/mL H 1- 8.78 Jul 13, 2024 12:37 PM [facility] CARBOHYDRATE Ag SERUM Specimen Type: SERUM Comment: REFERENCE RANGE: <34 U/mL This test was performed using the Siemens chemiluminescent method. Values obtained from different assay methods cannot be used inter- changeably. CA 19-9 levels, regardless of value, should not be interpreted as absolute evidence of the presence or absence of disease. Test Performed by [facility], [facility], [address] [place] [address] Tristin Iyer M.D., Ph.D., Director of Laboratories , [place] [id number] Ordering Provider: CRYSTAL MASSEY Report Released Date/Time: Jul 04, 2024 03:28 PM Reporting Lab: [address] [address] Performing Lab: [facility] [id number] [facility] CARBOHYDRATE Ag 61 H SEE BELOW Vital Signs: All taken on the encounter date This section contains inpatient and outpatient Vital Signs collected on the date of the Encounter. Date/Time Temperature Pulse Blood Pressure Respiratory Rate SP02 Pain Height Weight Body Mass Index Source Aug 10, 2024 08:00 PM 0 [facility] Aug 10, 2024 06:00 PM [facility] Aug 10, 2024 06:00 PM 98.2 77 115/61 13 100 0 [facility] Aug 10, 2024 04:54 PM 74 129/74 [facility] [facility] Aug 10, 2024 12:19 PM 97.8 80 125/78 18 7 [facility] Social History: Smoking Status (Most current) and Tobacco Use (All prior to encounter date) This section includes the most current, and the historical, smoking and tobacco- related health factors from the [place] facility where the Encounter took place. Current Smoking Status This section includes the most current smoking, or tobacco-related health factor, from the [place] facility where the Encounter took place. Date/Time Current Smoking Status Comment Kaz jarrett Jul 17, 2024 04:02 PM ORYX ADMIT TOBACCO SCREEN NO [facility] Tobacco Use History This section includes a history of the smoking, or tobacco-related health factors, that were collected on or before the date of the Encounter. The data comes from the [place] facility where the Encounter took place. Date/Time Smoking Status/Tobacco Use Comment F acility Jan 20, 2023 03:49 PM VA-TOBACCO FORMER USER [facility] Jan 20, 2023 03:49 PM VA-TOBACCO QUIT 15 YRS OR MORE [facility] Feb 06, 2021 04:28 PM VA-TOBACCO FORMER USER [facility] Feb 06, 2021 04:28 PM VA-TOBACCO QUIT 15 YRS OR MORE [facility] Radiology Reports: +/- 30 days of the [...] the Encounter. The data comes from all [place] treatment facilities. Date/Time Radiology Report Provider Source Aug 23, 2024 12:12 PM US BLOOD FLOW ABD/RENAL DOPPLER (COMPLETE): ABRAHAM HAWK [id number] -1955 M Exm Date: AUG 23, 2024@12:12 Req Phys: GILSON OG Kristal Loc: [facility]-GEN MED INPT VISIT (Req'g L Img Loc: [facility]-ULTRASOUND [facility] Service: Unknown [facility], [address] [place] [address] (Case [id number] COMPLETE) US BLOOD FLOW ABD/RENAL DOPPLER ((US Detailed) CPT:78000 Reason for Study: dopplers Clinical History: Report Status: Verified Date Reported: AUG 23, 2024 Date Verified: AUG 23, 2024 Coal Equipment Operator E-Sig:/ES/PETROS MCCORD Report: Case [id number], [id number]. US ABDOMEN LTD, SINGLE ORG OR QUADRANT, [...] vasculature. Primary Interpreting Staff: PETROS MCCORD MD (Coal Equipment Operator) /PETROS SRIVASTAVA [facility] Aug 23, 2024 12:12 PM US ABDOMEN LTD, SINGLE ORG OR QUADRANT: ABRAHAM HAWK [id number] -1955 M Exm Date: AUG 23, 2024@12:12 Req Phys: LENKAGILSON Jasvir Pat Loc: [facility]-GEN MED INPT VISIT (Req'g L Img Loc: [facility]ULTRASOUND [facility] Service: [facility], [facility] [address] [place] [address] (Case [id number] COMPLETE) US ABDOMEN LTD, SINGLE ORG OR CARLITOS(US Detailed) CPT:73849 Reason for Study: Possible SBP, RUQUS with dopplers, please comment on ascites? Clinical History: Report Status: Verified Date Reported: AUG 23, 2024 Date Verified: AUG 23, 2024 Coal Equipment Operator E-Sig:/ES/PETROS MCCORD Report: Case [id number], [id number]. US ABDOMEN LTD, SINGLE ORG OR QUADRANT, [...] vasculature. Primary Interpreting Staff: PETROS MCCORD MD (Coal Equipment Operator) /PETROS SRIVASTAVA [facility] Aug 10, 2024 02:[address] ABD PEL W/CONT & 3D: ABRAHAM HAWK [id number] -1955 M Exm Date: AUG 10, 2024@14:33 Req Phys: YASIR SANZ MD Pat Loc: [facility]-EMERGENCY DEPT 2ND SHIFT (R Img Loc: [facility]-CT IMAGING [facility] Service: [facility], [facility] [address] [place] [address] (Case [id number] COMPLETE) CT ABDOMEN AND PELVIS W/CONTRAST (CT Detailed) CPT:95820 Contrast Media : Non-ionic Iodinated Reason for Study: Abdominal pain, vomiting Clinical History: Responsible Attending: Svetlana Attending Contact Number: [phone] Resident Contact Number: Abdominal pain, vomiting Allergies listed in CPRS chart: Patient has answered NKA Creatinine:CREATININE 0.82 mg/dL 08/10/2024 11:30 /eGFR: STL EGFR (within one year). CREATININE 0.82 mg/dL (08/10/24 11:30) Wt: 152.1 lb [68.99 kg] (08/10/2024 11:31) History of: Renal failure, chronic or acute renal disease: NO Report Status: Verified Date Reported: AUG 10, 2024 Date Verified: AUG 10, 2024 Coal Equipment Operator E-Sig:/ES/PETROS MCCORD Report: Case [id number]. CT ABDOMEN AND PELVIS W/CONTRAST. Gastrointestinal contrast: [...] hernias. Dictated by Kenneth Albright DO (residential program director). I, Petros Mccord, have reviewed the images and report and concur with these findings. Primary Interpreting Staff: PETROS MCCORD MD (Coal Equipment Operator) Primary Interpreting Resident: KENNETH ALBRIGHT, Spa Manager/Esthetician /PETROS REESE [facility] Aug 01, 2024 10:20 AM PET/CT TUMOR IMAGING (SKULL TO MID-THIGH)-P: ABRAHAM HAWK [id number] -1955 M Exm Date: AUG 01, 2024@10:20 Req Phys: TONY SIMMONS Loc: [facility]-ONCOLOGY IRIS (Req'g Loc) Img Loc: [facility]-PET-CT Service: [address] [address] (Case [id number] COMPLETE) PET/CT TUMOR SKULL BASE TO MID-T(NM Detailed) CPT:85426 CPT Modifiers : PS PET TUMOR SUBSQ TX STRATEGY Reason for Study: Nasopharyngeal cancer (Case [id number] COMPLETE) F-18 FLUORODEOXYGLUCOSE (FDG),PER(NM Detailed) CPT:A9552 Clinical History: Report Status: Verified Date Reported: AUG 01, 2024 Date Verified: AUG 01, 2024 Coal Equipment Operator E-Sig:/ES/NATASHA LEIJA Report: PATIENT NAME: ABRAHAM HAWK. CASE #: [id number], [id number]. PROCEDURE: PET/CT study Indication: Nasopharyngeal cancer HISTORY: [...] lytic osseous lesion is noted within the [id number]. Impression: 1. The previous sites of FDG [...] NEEDED Primary Interpreting Staff: NATASHA LEIJA MD (Coal Equipment Operator) /PFT NATASHA LEIJA [facility] Jul 27, 2024 03:41 PM CHEST PORTABLE: ABRAHAM HAWK [id number] -1955 M Exm Date: JUL 27, 2024@15:41 Req Phys: GENDI,ELIZABETH Pat Loc: [facility]-EMERGENCY DEPT 2ND SHIFT (R Img Loc: [facility]-MAIN RADIOLOGY SUITE Service: Unknown [facility], [facility] [address] [place] [address] (Case [id number] COMPLETE) CHEST PORTABLE (RAD Detailed) CPT:87319 Proc Modifiers : Portable Reason for Study: sob Clinical History: Report Status: Verified Date Reported: JUL 27, 2024 Date Verified: JUL 27, 2024 Coal Equipment Operator E-Sig:/ES/Sol Abraham MD Report: CASE [id number]. AP portable view chest. COMPARISON: Chest x-ray [...] Report dictated by Krystian Sultana D.O. (residential program director) I, Sol Abraham, have reviewed the images and report and concur with these findings. Primary Interpreting Staff: Sol Abraham MD, Radiologist (Coal Equipment Operator) Primary Interpreting Resident: Krystian Sultana D.O., Resident Physician /SOL DHALIWAL [facility] Jul 17, 2024 06:[address] ABD PEL W/CONT & 3D: MARCABRAHAM TRUJILLOR [id number] -1955 M Exm Date: JUL 17, 2024@18:18 Req Phys: CASEY BOONE Pat Loc: 4-C SICU-[facility]/07-17-2024@19:47 Img Loc: [facility]-CT IMAGING [facility] Service: Unknown [facility], [facility] [address] [place] [address] (Case [id number] COMPLETE) CT ABDOMEN AND PELVIS W/CONTRAST (CT Detailed) CPT:55599 Contrast Media : Non-ionic Iodinated Reason for Study: septic shock, abd pain Clinical History: Responsible Attending: Nils Attending Contact Number: [phone] Resident Contact Number: Septic shock, Patient with [...] 17, 2024 Date Verified: JUL 17, 2024 Coal Equipment Operator E-Sig: Report: CT THORAX W/CONT (PE) [PRINTSET], CT ABDOMEN AND PELVIS W/CONTRAST [PRINTSET] Comparison: 03/17/2022, 04/23/2024 Clinical History: RO PE The study was protocoled and supervised at the local [place] facility. Chest 12 series and 1585 images were subsequently received by the [place] [facility] (NTP) for interpretation. Abdomen and pelvis 9 series and 1365 images were subsequently received by the [place] [facility] ([facility]P) for interpretation. Total [...] from 09/12/2023. READING PHYSICIAN: Guilherme Talbert M.D. -[phone] 07/17/2024 17:44 [facility] Hapticomradiology Program [phone] (For Medical Practitioner Use Only) Attention Patients / Veterans: If you have questions or concerns about these test results, please contact your ordering provider or primary care team. Primary Interpreting Staff: RADIOLOGY,OUTSIDE SERVICE, Staff Physician / RADIOLOGY,OUTSIDE SERVICE [facility] Jul 17, 2024 06:[address] PE CHEST W/3D: CARINEABRAHAM MEJIA [id number] -1955 M Exm Date: JUL 17, 2024@18:17 Req Phys: CASEY BOONE Loc: 4-C [facility]/07-17-2024@19:47 Img Loc: [facility]-CT IMAGING [facility] Service: Unknown [facility], [address] [address] (Case [id number] COMPLETE) CT THORAX W/CONT (PE) (CT Detailed) CPT:01244 Contrast Media : unspecified contrast media Reason for Study: RO PE Clinical History: Responsible Attending: Nils Attending Contact Number: [phone] Resident Contact Number: Patient with HCC and [...] 17, 2024 Date Verified: JUL 17, 2024 Coal Equipment Operator E-Sig: Report: CT THORAX W/CONT (PE) [PRINTSET], CT ABDOMEN AND PELVIS W/CONTRAST [PRINTSET] Comparison: 03/17/2022, 04/23/2024 Clinical History: RO PE The study was protocoled and supervised at the local [place] facility. Chest 12 series and 1585 images were subsequently received by the [place] [facility] (NTP) for interpretation. Abdomen and pelvis 9 series and 1365 images were subsequently received by the [place] [facility] (NTP) for interpretation. Total [...] from 09/12/2023. READING PHYSICIAN: Guilherme Talbert M.D. -[phone] 07/17/2024 17:44 [facility] National Teleradiology Program [phone] (For Medical Practitioner Use Only) Attention Patients / Veterans: If you have questions or concerns about these test results, please contact your ordering provider or primary care team. Primary Interpreting Staff: RADIOLOGY,OUTSIDE SERVICE, Staff Physician / RADIOLOGY,OUTSIDE SERVICE [facility] Pathology Reports: +/- 30 [...] the Encounter. The data comes from all [place] treatment facilities. Date/Time Pathology Report Provider Source [...] Performing Laboratory: Surgical Pathology Report Performed By: [address]# [id number] [address] [place] [phone] $FTR - - - - - - [...] - - ABRAHAM HAWK STANDARD FORM 515 ID:[id number] SEX:M :1955 AGE: 68 LOC:APFEE PCP: Deirdre Wild /eze [place] Pathologist Signed: 08/16/2024 09:43 CRISTIANA [place] [facility] Aug 11, 2024 06:00 AM LR MICROBIOLOGY RE PORT: Accession [UID]: [id number] [[id number]] Received: Aug 11, 2024@06:19 Collection sample: Mario Alberto D BLD. BOTTLE Collection date: Aug 11, 2024 06:00 Site/Specimen: BLOOD Provider: GILSON OG Test(s) ordered: BLOOD CULT (SET 1)............ completed: Aug 17, 2024 10:06 * BACTERIOLOGY FINAL REPORT => Aug 17, 2024 10:22 TECH CODE: [id number] Bacteriology Remark(s): 2. KAA Culture shows NO GROWTH IN 6 DAYS =--=--=--=--=--=--=--=--=-- =--=--=--=--=--=--=--=--=-- =--=--=--=--=--=--=--=-- Performing Laboratory: Bacteriology Report Performed By: [facility] [address] [place], [place] [address]IA# [id number] [address] [place] [phone] JULISSA BROWN [facility] Jul 17, 2024 05:10 PM LR MICROBIOLOGY RE PORT: Accession [UID]: [facility] [id number] [[id number]] Received: Jul 17, 2024@17:30 Collection sample: Mario Alberto Jones BLD. BOTTLE (SET 2)Collection date: Jul 17, 2024 17:10 Site/Specimen: BLOOD Provider: CASEY BOONE Test(s) ordered: BLOOD CULT (SET 2)............ completed: Jul 23, 2024 14:26 * BACTERIOLOGY FINAL REPORT => Jul 23, 2024 14:28 TECH CODE: [id number] Bacteriology Remark(s): CULTURE IS NEGATIVE TO DATE, ALL POSITIVES ARE ROUTINELY CALLED. KI Culture shows NO GROWTH IN 6 DAYS. 07/23/24 KI =--=--=--=--=--=--=--=--=-- =--=--=--=--=--=--=--=--=-- =--=--=--=--=--=--=--=-- Performing Laboratory: Bacteriology Report Performed By: [address]# [id number] [address] [place] [phone] [facility] Jul 17, 2024 05:10 PM MICROBIOLOGY RE PORT: Accession [UID]: [id number] [[id number]] Received: Jul 17, 2024@17:30 Collection sample: B D BLD. BOTTLE Collection date: Jul 17, 2024 17:10 Site/Specimen: BLOOD Provider: CASEY BOONE Test(s) ordered: BLOOD CULT (SET 1)............ completed: Jul 23, 2024 14:26 * BACTERIOLOGY FINAL REPORT => Jul 23, 2024 14:28 TECH CODE: [id number] Bacteriology Remark(s): CULTURE IS NEGATIVE TO DATE, ALL POSITIVES ARE ROUTINELY CALLED. [facility] Culture shows NO GROWTH IN 6 DAYS. 07/23/24 KI =--=--=--=--=--=--=--=--=-- =--=--=--=--=--=--=--=--=-- =--=--=--=--=--=--=--=-- Performing Laboratory: Bacteriology Report Performed By: [address] [id number] [address] [place] [phone] [facility] Encounter Notes: All associated encounter notes This section contains the clinical notes associated to the Encounter. 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 Masslike infiltrative lesion epicentered in the left nasopharynx as discussed above is worrisome for an underlying malignancy. 2. There is abnormal left level 2 lymphadenopathy as discussed above worrisome for local regional metastatic disease. 3. Right posterior cervical lymph nodes are increased in number. This is nonspecific. 4. Nonspecific bilateral parotid lesions. They may be related to primary parotid tumors or atypical lymph nodes. *07/26/23 BIOPSY: DIAGNOSIS: SOFT PALATE MASS, FSA, BIOPSY: INVASIVE NON-KERATINIZING SQUAMOUS CELL CARCINOMA, p16 POSITIVE *07/27/[address] BIOPSY: LYMPH NODE, LEFT CERVICAL, ULTRASOUND-GUIDED FINE-NEEDLE ASPIRATION: -- POSITIVE FOR MALIGNANCY -- METASTATIC SQUAMOUS CELL CARCINOMA (SEE COMMENT) *PET-CT 07/29/23: 1. There is an intensely hypermetabolic infiltrative mass centered in the left nasopharynx which extends to the left soft palate and oropharynx and slightly crosses midline. The hypermetabolic activity extends to the left medial and lateral pterygoid muscles with loss of fat planes. There is effacement of the left fossa of Rosenmuller. Posteriorly the lesion extends into the left prevertebral soft tissues from C1 to C2 without bony erosion. This lesion is consistent with biopsy proven malignancy. 2. There is intensely 18F-FDG active left cervical level 2 lymphadenopathy which is suspicious for locoregional evan metastasis. 3. There are two juxtaposed left upper lobe pulmonary nodules demonstrating mild 18F-FDG activity. Also, there are multiple small densities demonstrating mild 18F-FDG activity (less than blood pool). These lesions are new compared to CT chest from 03/17/2022. The findings are indeterminate. 4. There are subcentimeter bilateral parotid gland nodules demonstrating mild to moderate 18F-FDG activity. The most 18F-FDG active is a left parotid gland nodule located anteriorly. This may represent primary parotid gland tumors (more likely benign). Cannot completely exclude evan metastasis. 5. Splenomegaly without focal increased 18F-FDG activity. 6. Enlarged hypodense right inguinal lesion demonstrating mild 18F-FDG activity (less than blood pool). There is no prior CT available for comparison. This may represent a cyst. Recommend clinical correlation. 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 He is mostly asymptomatic (no CN involvement or symptoms) and is tolerating his disease currently. He initially presented with a few months of loss of hearing in his L ear, L nasal congestion and area of irritation in his back of throat. Imaging revealed a large CLERICAL SECRETARY mass. No h/o sinonasal or PARAG surgery, but does say he broke his left TMJ many years ago but did not have any treatment done at that time. We had a long discussion about role of primary chemoRT in this disease and given lack of services here at the [place], we will refer to [facility]. We made contact to expedite care at [facility] as well today. INTERVAL HISTORY: He reports he has had a terrible week. He had black diarrhea and emesis about 3 days ago. He continued to have diarrhea and bloody stools for a few days. His checked his blood pressure several times, and it remained WNL. He started taking an anti-diarrheal medication and is no longer having diarrhea or bloody stools. However, he remains nauseous. He has an anti-emetic at home, which helps. He has also has ongoing shortness of breath. He is extremely fatigued and is confined to bed or the couch for most of the day. He is also unable to eat or drink much of anything due to nausea and fear of recurrent emesis/diarrhea. PHYSICAL EXAM: BP: 129/63 (08/10/2024 11:31) P: 73 (08/10/2024 11:31) O2: Measurement DT POx (L/MIN)(%) 08/10/2024 11:31 100 08/02/2024 12:04 100 07/22/2024 11:48 99 07/22/2024 08:24 96 RR: 18 (08/10/2024 11:31) Weight: Measurement DT WEIGHT LB(KG)[BMI] 08/10/2024 11:31 152.1(68.99)[21] 08/02/2024 12:04 159.7(72.44)[22] 07/22/2024 05:53 162.1(73.53)[22] 07/21/2024 05:54 162.1(73.53)[22] Gen: NAD HEENT: NC/AT, MMM, No OP lesions PULM: CTABL, labored breathing CARD: RRR, no m/r/g ABD: NT/ND, NABS No HSM EXT: No EDEMA NEURO: A&Ox3, MALDONADO, No focal deficits SKIN: No RASH PMH: 1) Past history of procedure 2) Chronic hepatitis C 3) Hepatic cirrhosis 4) Chronic Pain Syndrome ([facility] [id number]) 5) GERD - Gastro-Esophageal Reflux Disease ([facility] [id number]) 6) Child attention deficit disorder 7) Monoclonal gammopathy 8) History of colonic polyp 9) Hearing Loss ([facility] [id number]) 10) Dupuytren contracture 11) Hepatocellular carcinoma 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 1 ABRAHAM HAWK [id number] : 1955 AOPM - Active OutPat Meds 1) SULFAMETHOXAZOLE 800/TRIMETH 160MG TAB TAKE 1 TABLET BY MOUTH EVERY 24 HOURS (ONCE A DAY) TAKE WITH 2) FUROSEMIDE 20MG TAB TAKE ONE TABLET BY MOUTH EVERY MORNING FOR FLUID RETENTION (EDEMA) 3) POTASSIUM CL 20MEQ SA TAB (DISPERSIBLE) TAKE ONE-HALF TABLET BY MOUTH ONCE A DAY FOR POTASSIUM SUPPLEMENTATION 4) OMEPRAZOLE 40MG EC CAP TAKE ONE CAPSULE BY MOUTH EVERY MORNING BEFORE A MEAL TO LOWER STOMACH 5) ONDANSETRON HCL 8MG TAB TAKE ONE TABLET BY MOUTH THREE TIMES A DAY NEEDED FOR 6) LOPERAMIDE HCL 2MG CAP TAKE TWO CAPSULES BY MOUTH DIRECTED AT FIRST ONSET OF DIARRHEA THEN 7) PROPRANOLOL HCL 10MG TAB TAKE ONE-HALF TABLET BY MOUTH TWICE A DAY FOR VARICEAL PROPHYLAXIS 8) NUTRITION SUPL TWOCAL HN/VANILLA LIQUID TAKE 3 CANFULS BY MOUTH DIRECTED FOR NUTRITION/DIETARY 9) TRAMADOL HCL 50MG TAB TWICE DAILY NEEDED 1 TABLET BY MOUTH TWICE DAILY NEEDED 10) PAPAYA TAB,CHEWABLE ONCE A DAY 4 TABLETS BY MOUTH ONCE A DAY 11) MILK THISTLE CAP/TAB ONCE A DAY 1 CAP/TAB BY MOUTH ONCE A DAY 12) TURMERIC CAP/TAB ONCE A DAY NEEDED 1 CAPSULE BY MOUTH ONCE A DAY NEEDED 13) LECITHIN CAP,ORAL ONCE A DAY 1 TEASPOON BY MOUTH ONCE A DAY 14) AMPHETAMINE/DEXTROAMPHET 30MG SA CAP EVERY MORNING 30MG BY MOUTH EVERY MORNING LABS: CMP: SODIUM 138 mEq/L 08/02/2024 11:53 POTASSIUM 4.1 mEq/L 08/02/2024 11:53 CHLORIDE 103 mEq/L 08/02/2024 11:53 UREA NITROGEN 12.2 mg/dL 08/02/2024 11:53 CREATININE 0.82 mg/dL 08/02/2024 11:53 CALCIUM 9.1 mg/dL 08/02/2024 11:53 PROTEIN 7.5 g/dL 08/02/2024 11:53 ALBUMIN 3.6 g/dL 08/02/2024 11:53 ALKALINE PHOSPHATASE 118 U/L 08/02/2024 11:53 ALT/SGPT 16 U/L 08/02/2024 11:53 AST/SGOT 32 U/L 08/02/2024 11:53 TOTAL BILIRUBIN 0.9 mg/dL 08/02/2024 11:53 CARBON DIOXIDE 26 mEq/L 08/02/2024 11:53 GLUCOSE 100 H mg/dL 08/02/2024 11:53 EGFR (CKD-EPI 2020) 96.3 08/02/2024 11:53 Creatinine: CREATININE 0.82 mg/dL 08/02/2024 11:53 CBC: WBC 2.2 L 10*3/uL 08/02/2024 11:53 RBC 3.44 L 10*6/uL 08/02/2024 11:53 HGB 11.0 L g/dL 08/02/2024 11:53 HCT 34.7 L % 08/02/2024 11:53 MCV 100.9 H fL 08/02/2024 11:53 MCH 32.0 pg 08/02/2024 11:53 MCHC 31.7 L g/dL 08/02/2024 11:53 RDW 15.7 H % 08/02/2024 11:53 PLT 89 L 10*3/uL 08/02/2024 11:53 MPV 11.3 H fL 08/02/2024 11:53 NEUTROPHILS, AUTO % 71 % 07/21/2024 14:00 LYMPHOCYTES, AUTO % 9 % 07/21/2024 14:00 MONOCYTES, AUTO % 15 % 07/21/2024 14:00 EOSINOPHILS, AUTO % 3 % 07/21/2024 14:00 BASOPHILS, AUTO % 1 % 07/21/2024 14:00 NEUTROPHILS, ABSOLUTE 4.01 10*3/uL 07/21/2024 14:00 LYMPHOCYTES, ABSOLUTE 0.49 L 10*3/uL 07/21/2024 14:00 MONOCYTES, ABSOLUTE 0.82 H 10*3/uL 07/21/2024 14:00 EOSINOPHILS, ABSOLUTE 0.19 10*3/uL 07/21/2024 14:00 BASOPHILS, ABSOLUTE 0.03 10*3/uL 07/21/2024 14:00 NRBC% 0.9 % 07/20/2024 13:13 NEUTROPHILS 78.6 % 08/02/2024 11:53 BAND NEUTROPHILS 8.6 % 07/27/2024 13:54 LYMPHOCYTES 9.8 % 08/02/2024 11:53 MONOCYTES 7.1 % 08/02/2024 11:53 EOSINOPHILS 0.9 % 08/02/2024 11:53 BASOPHILS 1.8 % 08/02/2024 11:53 METAMYELOCYTES 0.9 % 07/20/2024 20:00 MYELOCYTES 0.9 % 07/20/2024 20:00 PROMYELOCYTES 0.9 % 07/20/2024 13:13 ATYPICAL LYMPHOCYTES 1.8 % 08/02/2024 11:[address] FRACTION 5.5 % 08/02/2024 11:53 ANISOCYTOSIS 1+ 08/02/2024 11:53 POIKILOCYTOSIS 1+ 07/13/2024 12:39 TEARDROPS 1+ 07/13/2024 12:39 MACROCYTOSIS 1+ 07/27/2024 13:54 POLYCHROMASIA 1+ 07/20/2024 20:00 PSA: PROST. SPECIFIC AG.(PB-STL) 0.223 ng/mL 04/27/2022 11:12 IMAGING: CT Scans: Date Procedure CPT Status Case # 07/17/2024 CT ABDOMEN AND PELVIS W/CONTRAST 90072 Verified 1270 Left upper lobe cavitary nodules measuring up [...] from 09/12/2023. READING PHYSICIAN: Guilherme Talbert M.D. -[phone] 07/17/2024 17:44 [facility] Teleradiology Program [phone] (For Medical Practitioner Use Only) Attention Patients / Veterans: If you have questions or concerns about these test results, please contact your ordering provider or primary care team. ASSESSMENT & PLAN: #CLERICAL SECRETARY SCC: He had complications following his first Keytruda that are not clearly related to Keytruda. He has had PET-CT imagimng with progression. He continues to be focused on RSO treatment and is not that eager for additional Keytruda. Suspect recent hematemesis and hematochezia are secondary to bleeding from Nasal tumor. We will send him to the ED for further workup and treatment given recent bleeding, significant dyspnea and inability to tolerate oral intake. #MGUS: We will get MGUS labs in f/u. CODE STATUS:Life Sustaining Treatment Orders Cohort: Reminder Term: VA-LIFE SUSTAINING TREATMENT ORDERABLE ITEMS Orderable Item: LST FULL CODE 07/17/2024@19:08 Status: active, Start date: 07/17/2024@19:08, Stop date: missing Duration: 24 D /loly/ EDGAR JACKSON MD Hematology/Oncology Fellow Signed: 08/10/2024 11:52 /loly/ TONY SIMMONS MD STAFF PHYSICIAN, HEMATOLOGY/ONCOLOGY Cosigned: 08/10/2024 13:39 08/10/2024 ADDENDUM STATUS: COMPLETED I have seen the patient with the fellow and agree with the plan of care as outlined above. /loly/ TONY SIMMONS MD STAFF PHYSICIAN, HEMATOLOGY/ONCOLOGY Signed: 08/10/2024 13:40 EDGAR JACKSON [facility]
--- OUTSIDE RECORDS SUMMARY | 2024-10-08 17:09 | XMS_ITS | Encounter Summary ---
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 Date/Time Encounter Type Encounter Description Reason Provider Source Sep 07, 2024 11:00 AM OFFICE O/P EST HI 40 [facility]PATOLOGY CLINIC ICD-10-CM C22.0 Liver cell carcinoma GEMA ORTEGA Reg [facility] Encounter Template Text not used by [place] Assessments - Encounter Diagnoses This section includes the primary and secondary diagnoses documented for the Encounter. Date/Time Primary/Secondary Diagnosis Diagnosis Name Provider Source Sep 07, 2024 02:19 PM PRIMARY Liver cell carcinoma GEMA ORTEGA KASSIE Finney [facility] Sep 07, 2024 02:19 PM SECONDARY Diarrhea, unspecified ROSI ORTEGAMario Alberto Finney [facility] Sep 07, 2024 02:19 PM SECONDARY Esophageal varices without bleeding BELLROSI CASANOVAMario Alberto Finney [facility] Sep 07, 2024 02:19 PM SECONDARY Other ascites BELLROSI CASANOVAMario Alberto Finney [facility] Sep 07, 2024 02:19 PM SECONDARY Other cirrhosis of liver BRYSONROSIMario Alberto [facility] Reg [facility] Plan of Treatment: Future Appointments (+ 6 months) and Future Tests (+/- 45 days) The Plan of Treatment section includes future care activities for the patient from all [facility]. This section includes future appointments and future orders which are active, pending or scheduled. Future Appointments This section includes appointments that were scheduled to occur 6 months from the date of the Encounter, up to a maximum of 20 appointments. The data comes from all [facility]. Appointment Date/Time Appointment Type Appointme nt Facility Name Oct 15, 2024 03:00 PM AMBULATORY - SURGERY [facility] Oct 19, 2024 02:00 PM AMBULATORY - NONE [facility] Active, Pending, and Scheduled Orders This section includes a listing of several types of active, pending, and scheduled orders, including clinic medications orders, diagnostic test orders, procedure orders and consult orders; where the start date of the order is 45 days before the date of the Encounter or 45 days after the date of theEncounter. The data comes from all [facility]. Test Date/Time Test Type Test Details Facility Name Aug 10, 2024 12:00 AM Laboratory - Blood Bank Order RED BLOOD CELLS - LAB VBECS - NO SPECIMEN REQUIRED JOANN SP [facility] Aug 10, 2024 02:00 PM Laboratory - Blood Bank Order TYPE & SCREEN - LAB BLOOD [facility] Aug 10, 2024 05:43 PM Laboratory - Chemistry Order LIPASE GREEN LI/HEP BLD/PLAS PLASMA STAT I ONCE [facility] Aug 10, 2024 05:44 PM Laboratory - Microbiology Order BLOOD CULT (SET 2) B D BLD. BOTTLE (SET 2) BLOOD JOANN I NOW [facility] Aug 11, 2024 02:00 AM Laboratory - Chemistry Order CBC BLOOD [facility] Aug 14, 2024 02:00 AM Laboratory - Chemistry Order CBC BLOOD [facility] Aug 15, 2024 02:00 AM Laboratory - Chemistry Order CBC BLOOD [facility] Aug 16, 2024 12:00 AM Laboratory - Chemistry Order CBC BLOOD [facility] Aug 16, 2024 08:00 PM Laboratory - Chemistry Order CBC BLOOD LC [facility] Aug 17, 2024 08:00 PM Laboratory - Chemistry Order CBC BLOOD LC [facility] Sep 27, 2024 12:00 AM Laboratory - Chemistry Order CBC BLOOD [facility] Sep 27, 2024 12:00 AM Laboratory - Chemistry Order COMPREHENSIVE METABOLIC PANEL GREEN LI/HEP BLD/PLAS PLASMA [facility] Oct 19, 2024 12:00 AM Imaging - Magnetic Resonance Imaging (MRI) Order MRI ABDOMEN W/O&W CONT [facility] Lab Results: +/- 30 days of the encounter This section includes the Chemistry and Hematology Lab Results on record with [place] for the patient. Radiology Reports and Pathology Reports are provided separately, in subsequent sections. Lab Results This section contains the Chemistry/Hematology Results that were resulted 30 days before or 30 daysafter the date of the Encounter. Date/Time Source Result Type Result - Unit Interpretation Reference Range Specimen Type Comment Sep 07, 2024 12:39 PM [facility] COMPREHENSIVE METABOLIC PANEL PLASMA Specimen Type: PLASMA Comment: No hemolysis noted. Ordering Provider: TONY SIMMONS Report Released Date/Time: Aug 31, 2024 02:42 PM Reporting Lab: [facility] [address] [place] [address] Performing Lab: [address] [address] CREATININE 0.87 mg/dL 0.7-1.3 UREA NITROGEN 24.5 [...] 94.0 >60 Sep 07, 2024 12:39 PM [facility] CBC BLOOD Specimen Type: BLOOD No comment entered. Ordering Provider: TONY SIMMONS Report Released Date/Time: Aug 31, 2024 02:42 PM Reporting Lab: [facility] [address] [place] [address] Performing Lab: [address] [address] WBC 5.1 10*3/uL 3.6-11.2 RBC 3.44 10*6/uL [...] 10*3/uL 2.10-8.00 Sep 07, 2024 12:39 PM [facility] ALPHA-FETOPROTEIN(STL-PB) SERUM Specimen Type : SERUM No comment entered. Ordering Provider: DANIELLE ORTEGA Report Released Date/Time: Sep 07, 2024 11:59 AM Reporting Lab: [address] [address] Performing Lab: [address] [address] ALPHA-FETOPROTEIN(STL-PB) 15.01 ng/mL H 1- 8.78 Aug 31, 2024 02:04 PM [facility] COMPREHENSIVE METABOLIC PANEL PLASMA Specimen Type: PLASMA Comment: No hemolysis noted. Ordering Provider: TONY SIMMONS Report Released Date/Time: Aug 27, 2024 12:35 PM Reporting Lab: [address] [address] Performing Lab: [address] [address] CREATININE 0.90 mg/dL 0.7-1.3 UREA NITROGEN 26.4 [...] 93.6 >60 Aug 31, 2024 02:04 PM [facility] CBC BLOOD Specimen Type: BLOOD No comment entered. Ordering Provider: TONY SIMMONS Report Released Date/Time: Aug 27, 2024 12:35 PM Reporting Lab: [address] [address] Performing Lab: [address] [address] WBC 4.7 10*3/uL 3.6-11.2 RBC 3.54 10*6/uL [...] 10*3/uL 2.10-8.00 Aug 17, 2024 03:34 PM [facility] TSH W/ REFLEX FT4 (STL) PLASMA Specimen Type: PLASMA No comment entered. Ordering Provider: TONY SIMMONS Report Released Date/Time: Aug 10, 2024 12:01 PM Reporting Lab: [address] [address] Performing Lab: [address] [address] TSH 4.570 u[IU]/mL 0.47-5 Aug 17, 2024 03:34 PM [facility] COMPREHENSIVE METABOLIC PANEL PLASMA Specimen Type: PLASMA Comment: No hemolysis noted. Ordering Provider: TONY SIMMONS Report Released Date/Time: Aug 10, 2024 12:01 PM Reporting Lab: [address] [address] Performing Lab: [address] [address] CREATININE 0.85 mg/dL 0.7-1.3 UREA NITROGEN 11.5 [...] 95.2 >60 Aug 17, 2024 03:34 PM [facility] CBC BLOOD Specimen Type: BLOOD Comment: No Clots Ordering Provider: TONY SIMMONS Report Released Date/Time: Aug 10, 2024 12:01 PM Reporting Lab: [address] [address] Performing Lab: [address] [address] WBC 5.0 10*3/uL 3.6-11.2 RBC 2.83 10*6/uL [...] 4.9 1.0-7.0 Aug 15, 2024 07:20 AM [facility] CBC BLOOD Specimen Type: BLOOD Comment: No clots detected in specimen. Ordering Provider: CASH CLOUD Report Released Date/Time: Aug 12, 2024 01:47 PM Reporting Lab: [facility] [address] [place] [address] Performing Lab: [address] [address] WBC 4.9 10*3/uL 3.6-11.2 RBC 2.93 10*6/uL [...] 10*3/uL 2.10-8.00 Aug 15, 2024 04:54 AM [facility] GLUCOSE,BLOOD-poct (STL) BLOOD Specimen Type: BLOOD Comment: Test Performed by: [id number] Meter #: [id number] Ordering Provider: DEIRDRE WILD Report Released Date/Time: Aug 15, 2024 05:21 AM Reporting Lab: [place] [address] Performing Lab: [place] [address] GLUCOSE,BLOOD-poct (STL) 112 mg/dL H 72-99 Aug 14, 2024 08:30 PM [facility] CRP PLASMA Specimen Type: PLASM A No comment entered. Ordering Provider: CASH CLOUD Report Released Date/Time: Aug 12, 2024 10:14 AM Reporting Lab: [place] [phone] Performing Lab: [place] [address] CRP 0.7 mg/dL H 0-0.5 Aug 14, 2024 08:30 PM [facility] CBC BLOOD Specimen Type: BLOOD No comment entered. Ordering Provider: GILSON OG Report Released Date/Time: Aug 10, 2024 04:01 PM Reporting Lab: [place] [address] Performing Lab: [place] [address] WBC 4.6 10*3/uL 3.6-11.2 RBC 2.83 10*6/uL [...] 10*3/uL 2.10-8.00 Aug 14, 2024 07:54 PM [facility] GLUCOSE,BLOOD-poct (STL) BLOOD Specimen Type : BLOOD Comment: Test Performed by: [id number] Meter #: [id number] Ordering Provider: DEIRDRE WILD Report Released Date/Time: Aug 14, 2024 08:15 PM Reporting Lab: [place] [address] Performing Lab: [address] [address] GLUCOSE,BLOOD-poct (STL) 112 mg/dL H 72-99 Aug 14, 2024 04:10 PM [facility] GLUCOSE,BLOOD-poct (STL) BLOOD Specimen Type: BLOOD Comment: Test Performed by: [id number] Meter #: [id number] Ordering Provider: DEIRDRE WILD Report Released Date/Time: Aug 14, 2024 04:43 PM Reporting Lab: [address] [address] Performing Lab: [address] [place] [address] GLUCOSE,BLOOD-poct (STL) 115 mg/dL H 72-99 Aug 14, 2024 02:05 PM [facility] COMPREHENSIVE METABOLIC PANEL PLASMA Specimen Type: PLASMA Comment: No hemolysis noted. Ordering Provider: GILSON OG Report Released Date/Time: Aug 14, 2024 06:56 AM Reporting Lab: [address] [address] Performing Lab: [address] [address] CREATININE 0.75 mg/dL 0.7-1.3 UREA NITROGEN 9.3 [...] 98.9 >60 Aug 14, 2024 02:05 PM [facility] CBC BLOOD Specimen Type: BLOOD Comment: No platelet clots or clumping detected. Ordering Provider: GILSON OG Report Released Date/Time: Aug 10, 2024 04:01 PM Reporting Lab: [address] [address] Performing Lab: [address] [address] WBC 4.6 10*3/uL 3.6-11.2 RBC 3.06 10*6/uL [...] 10*3/uL 2.10-8.00 Aug 14, 2024 10:12 AM [facility] GLUCOSE,BLOOD-poct (STL) BLOOD Specimen Type: BLOOD Comment: Test Performed by: [id number] Meter #: [id number] Ordering Provider: DEIRDRE WILD Report Released Date/Time: Aug 14, 2024 10:13 AM Reporting Lab: [facility] [address] [facility] [address] Performing Lab: [place] [id number] [facility] [place] [address] GLUCOSE,BLOOD-poct ([facility]) 112 mg/dL H 72-99 Aug 14, 2024 09:20 AM [facility] PT/INR NEW (STL-MA) PLASMA Specimen Type: PLAS MA No comment entered. Ordering Provider: GILSON OG Report Released Date/Time: Aug 14, 2024 09:06 AM Reporting Lab: [facility] [address] [place], [place] [id number] Performing Lab: [address] [address] PROTIME 13.6 s H 9.4-12.5 INR VALUE 1.2 {INR} Aug 14, 2024 06:51 AM [facility] CBC BLOOD Specimen Type: BLOOD No comment entered. Ordering Provider: CASH CLOUD Report Released Date/Time: Aug 12, 2024 01:47 PM Reporting Lab: [address] Performing Lab: [place] [phone] WBC 3.8 10*3/uL 3.6-11.2 RBC 2.56 10*6/uL [...] 10*3/uL 2.10-8.00 Aug 14, 2024 06:03 AM [facility] GLUCOSE,BLOOD-poct (STL) BLOOD Specimen Type: BLOOD Comment: Test Performed by: [id number] Meter #: [id number] Ordering Provider: DEIRDRE WILD Report Released Date/Time: Aug 14, 2024 06:07 AM Reporting Lab: [address] [address] Performing Lab: [address] [address] GLUCOSE,BLOOD-poct (STL) 114 mg/dL H 72-99 Aug 13, 2024 09:11 PM [facility] GLUCOSE,BLOOD-poct (STL) BLOOD Specimen Type: BLOOD Comment: Test Performed by: [id number] Meter #: [id number] Ordering Provider: DEIRDRE WILD Report Released Date/Time: Aug 13, 2024 09:40 PM Reporting Lab: [address] [address] Performing Lab: [address] [address] GLUCOSE,BLOOD-poct (STL) 160 mg/dL H 72-99 Aug 13, 2024 07:10 PM [facility] COMPREHENSIVE METABOLIC PANEL PLASMA Specimen Type: PLASMA Comment: No hemolysis noted. Ordering Provider: GILSON OG Report Released Date/Time: Aug 14, 2024 07:03 AM Reporting Lab: [address] [address] Performing Lab: [address] [address] CREATININE 0.75 mg/dL 0.7-1.3 UREA NITROGEN 10.3 [...] 98.9 >60 Aug 13, 2024 07:10 PM [facility] CRP PLASMA Specimen Type: PLASM A No comment entered. Ordering Provider: CASH CLOUD Report Released Date/Time: Aug 12, 2024 10:14 AM Reporting Lab: [address] [address] Performing Lab: [address] [address] CRP 0.7 mg/dL H 0-0.5 Aug 13, 2024 07:10 PM [facility] CBC BLOOD Specimen Type: BLOOD No comment entered. Ordering Provider: GILSON OG Report Released Date/Time: Aug 10, 2024 04:01 PM Reporting Lab: [address] [address] Performing Lab: [address] [address] WBC 5.3 10*3/uL 3.6-11.2 RBC 2.67 10*6/uL [...] 10*3/uL 2.10-8.00 Aug 13, 2024 04:35 PM [facility] GLUCOSE,BLOOD-poct (STL) BLOOD Specimen Type: BLOOD Comment: Test Performed by: [id number] Meter #: [id number] Ordering Provider: DEIRDRE WILD Report Released Date/Time: Aug 13, 2024 05:18 PM Reporting Lab: [address] [address] Performing Lab: [address] [address] GLUCOSE,BLOOD-poct (L) 113 mg/dL H 72-99 Aug 13, 2024 02:36 PM [facility] CBC BLOOD Specimen Type: BLOOD No comment entered. Ordering Provider: GILSON GO Report Released Date/Time: Aug 10, 2024 04:01 PM Reporting Lab: [address] [address] Performing Lab: [address] [address] WBC 5.8 10*3/uL 3.6-11.2 RBC 2.77 10*6/uL [...] 10*3/uL 2.10-8.00 Aug 13, 2024 11:37 AM [facility] GLUCOSE,BLOOD-poct (STL) BLOOD Specimen Type: BLOOD Comment: Test Performed by: [id number] Meter #: [id number] Ordering Provider: DEIRDRE WILD Report Released Date/Time: Aug 13, 2024 11:38 AM Reporting Lab: [address] [address] Performing Lab: [address] [address] GLUCOSE,BLOOD-poct (STL) 131 mg/dL H 72-99 Aug 13, 2024 08:06 AM [facility] CBC BLOOD Specimen Type: BLOOD Comment: no clot Ordering Provider: CASH CLOUD Report Released Date/Time: Aug 12, 2024 01:47 PM Reporting Lab: [address] [address] Performing Lab: [address] [address] WBC 3.0 10*3/uL L 3.6-11.2 RBC 2.61 [...] 10*3/uL 2.10-8.00 Aug 13, 2024 04:45 AM [facility] GLUCOSE,BLOOD-poct (STL) BLOOD Specimen Type: BLOOD Comment: Test Performed by: [id number] Meter #: [id number] Ordering Provider: DEIRDRE WILD Report Released Date/Time: Aug 13, 2024 06:18 AM Reporting Lab: [address] [address] Performing Lab: [address] [address] GLUCOSE,BLOOD-poct (STL) 139 mg/dL H 72-99 Aug 12, 2024 10:10 PM [facility] GLUCOSE,BLOOD-poct (STL) BLOOD Specimen Type: BLOOD Comment: Test Performed by: [id number] Meter #: [id number] Ordering Provider: DEIRDRE WILD Report Released Date/Time: Aug 12, 2024 10:50 PM Reporting Lab: [address] [address] Performing Lab: [address] [address] GLUCOSE,BLOOD-poct (STL) 105 mg/dL H 72-99 Aug 12, 2024 08:48 PM [facility] CRP PLASMA Specimen Type: PLASM A No comment entered. Ordering Provider: CASH CLOUD Report Released Date/Time: Aug 12, 2024 10:14 AM Reporting Lab: [address] [address] Performing Lab: [address] [address] CRP 0.6 mg/dL H 0-0.5 Aug 12, 2024 08:48 PM [facility] CBC BLOOD Specimen Type: BLOOD Comment: SEE PREVIOUS DIFFERENTIAL ON 08/12/24 @ 1807 Ordering Provider: GILSON OG Report Released Date/Time: Aug 10, 2024 04:01 PM Reporting Lab: [address] [address] Performing Lab: [address] [address] WBC 5.0 10*3/uL 3.6-11.2 RBC 2.78 10*6/uL [...] 6.5 1.0-7.0 Aug 12, 2024 04:51 PM [facility] GLUCOSE,BLOOD-poct (STL) BLOOD Specimen Type: BLOOD Comment: Test Performed by: [id number] Meter #: [id number] Ordering Provider: DEIRDRE WILD Report Released Date/Time: Aug 12, 2024 05:07 PM Reporting Lab: [address] [address] Performing Lab: [address] [address] GLUCOSE,BLOOD-poct (L) 135 mg/dL H 72-99 Aug 12, 2024 02:33 PM [facility] CBC BLOOD Specimen Type: BLOOD No comment entered. Ordering Provider: GILSON OG Report Released Date/Time: Aug 10, 2024 04:01 PM Reporting Lab: [address] [address] Performing Lab: [address] [address] WBC 4.0 10*3/uL 3.6-11.2 RBC 2.56 10*6/uL [...] 10*3/uL 2.10-8.00 Aug 12, 2024 11:51 AM [facility] GLUCOSE,BLOOD-poct (STL) BLOOD Specimen Type: BLOOD Comment: Test Performed by: [id number] Meter #: [id number] Ordering Provider: DEIRDRE WILD Report Released Date/Time: Aug 12, 2024 12:26 PM Reporting Lab: [address] [address] Performing Lab: [address] [address] GLUCOSE,BLOOD-poct (L) 139 mg/dL H 72-99 Aug 12, 2024 07:35 AM [facility] CBC BLOOD Specimen Type: BLOOD Comment: prev diff 08/11/24. Ordering Provider: GILSON OG Report Released Date/Time: Aug 10, 2024 04:01 PM Reporting Lab: [address] [address] Performing Lab: [address] [address] WBC 3.0 10*3/uL L 3.6-11.2 RBC 2.54 [...] 0.00-0. 20 Aug 12, 2024 05:49 AM [facility] GLUCOSE,BLOOD-poct (STL) BLOOD Specimen Type: BLOOD Comment: Test Performed by: [id number] Meter #: [id number] Ordering Provider: EDIRDRE WILD Report Released Date/Time: Aug 12, 2024 05:50 AM Reporting Lab: [address] [address] Performing Lab: [address] [address] GLUCOSE,BLOOD-poct ([facility]) 112 mg/dL H 72-9 9 Aug 12, 2024 01:45 AM [facility] CBC BLOOD Specimen Type: BLOOD Comment: SEE PREVIOUS DIFFERENTIAL ON 08/12/24 @ 0239 [facility] Ordering Provider: GILSON OG Report Released Date/Time: Aug 10, 2024 04:01 PM Reporting Lab: [address] [address] Performing Lab: [address] [address] WBC 2.6 10*3/uL L 3.6-11.2 RBC 2.42 [...] 6.4 1.0-7.0 Aug 11, 2024 09:25 PM [facility] CBC BLOOD Specimen Type: BLOOD No comment entered. Ordering Provider: GILSON OG Report Released Date/Time: Aug 10, 2024 04:01 PM Reporting Lab: [place] [address] [facility] [address] Performing Lab: [address] [address] WBC 3.6 10*3/uL 3.6-11.2 RBC 2.54 10*6/uL [...] 10*3/uL 2.10-8.00 Aug 11, 2024 09:17 PM [facility] GLUCOSE,BLOOD-poct (STL) BLOOD Specimen Type: BLOOD Comment: Test Performed by: [id number] Meter #: [id number] Ordering Provider: DEIRDRE WILD Report Released Date/Time: Aug 11, 2024 09:21 PM Reporting Lab: [facility] [address] [place] [address] Performing Lab: [address] [address] GLUCOSE,BLOOD-poct (STL) 167 mg/dL H 72-99 Aug 11, 2024 04:42 PM [facility] CBC BLOOD Specimen Type: BLOOD No comment entered. Ordering Provider: YVONNE HARRISON Report Released Date/Time: Aug 11, 2024 04:41 PM Reporting Lab: [address] [address] Performing Lab: [address] [address] WBC 4.0 10*3/uL 3.6-11.2 RBC 2.74 10*6/uL [...] 10*3/uL 2.10-8.00 Aug 11, 2024 04:30 PM [facility] GLUCOSE,BLOOD-poct (STL) BLOOD Specimen Type: BLOOD Comment: Test Performed by: [id number] Meter #: [id number] Ordering Provider: DEIRDRE WILD Report Released Date/Time: Aug 11, 2024 06:06 PM Reporting Lab: [place] [address] [facility] [address] Performing Lab: [place] [address] [facility] [address] GLUCOSE,BLOOD-poct (STL) 95 mg/dL 72-99 Aug 11, 2024 11:08 AM [facility] GLUCOSE,BLOOD-poct (STL) BLOOD Specimen Type: BLOOD Comment: Test Performed by: [id number] Meter #: [id number] Ordering Provider: DEIRDRE WILD Report Released Date/Time: Aug 11, 2024 11:10 AM Reporting Lab: [place] [address] [facility] [address] Performing Lab: [place] [address] [facility] [address] GLUCOSE,BLOOD-poct (STL) 117 mg/dL H 72-99 Aug 11, 2024 06:00 AM [facility] IRON/TIBC PROFILE SERUM Specimen Type: SERUM No comment entered. Ordering Provider: GILSON OG Report Released Date/Time: Aug 10, 2024 04:02 PM Reporting Lab: [place] [address] [facility] [address] Performing Lab: [address] [address] TIBC 263 ug/dL 250-450 TRANSFERRIN 210 mg/dL 163-344 IRON SATURATION 8 L 20-50 IRON 21 ug/dL L 65-175 Aug 11, 2024 06:00 AM [facility] APTT PLASMA Specimen Type: PLASM A No comment entered. Ordering Provider: GILSON OG Report Released Date/Time: Aug 10, 2024 06:20 PM Reporting Lab: [place] [address] [place] [address] Performing Lab: [facility] [address] [place] [address] APTT 25.5 s L 26.7-39.9 Aug 11, 2024 06:00 AM [facility] PT/INR NEW (STL-MA) PLASMA Specimen Type: PLAS MA No comment entered. Ordering Provider: GILSON OG Report Released Date/Time: Aug 10, 2024 06:20 PM Reporting Lab: [facility] [address] [place] [id number] Performing Lab: [address] [address] PROTIME 15.5 s H 9.4-12.5 INR VALUE 1.4 {INR} Aug 11, 2024 06:00 AM [facility] HEPATIC FUNTION PANEL (STL) PLASMA Specimen Ty pe: PLASMA No comment entered. Ordering Provider: GILSON OG Report Released Date/Time: Aug 10, 2024 04:02 PM Reporting Lab: [facility] [address] [place] [phone] Performing Lab: [address] [address] PROTEIN 5.4 g/dL L 6-8.6 ALBUMIN 2.6 g/dL L 3.4-5 TOTAL BILIRUBIN 0.8 mg/dL 0.2-1.2 ALKALINE PHOSPHATASE 72 U/L 40-150 AST/SGOT 28 U/L 5-34 ALT/SGPT 10 U/L 8-40 CONJ. BILIRUBIN 0.4 mg/dL 0-0.5 Aug 11, 2024 06:00 AM [facility] CBC BLOOD Specimen Type: BLOOD No comment entered. Ordering Provider: GILSON OG Report Released Date/Time: Aug 10, 2024 04:01 PM Reporting Lab: [address] [address] Performing Lab: [address] [address] WBC 2.4 10*3/uL L 3.6-11.2 RBC 2.42 [...] L 2.10-8.00 Aug 10, 2024 09:00 PM [facility] BASIC METABOLIC PANEL PLASMA Specimen Type: PL ASMA Comment: No hemolysis noted. Ordering Provider: GILSON OG Report Released Date/Time: Aug 10, 2024 04:01 PM Reporting Lab: [facility] [address] [facility] [address] Performing Lab: [facility] [address] [facility] [address] CREATININE 0.84 mg/dL 0.7-1.3 UREA NITROGEN 16.8 mg/dL 9.0-25.0 GLUCOSE 104 mg/dL H 72-99 SODIUM 133 meq/L L 136-145 POTASSIUM 3.5 meq/L 3.5-5 CHLORIDE 103 meq/L 98-107 CARBON DIOXIDE 23 meq/L 22-31 CALCIUM 8.4 mg/dL 8.4-10.4 EGFR (CKD-EPI 2020) 95.6 >60 Aug 10, 2024 09:00 PM [facility] CBC BLOOD Specimen Type: BLOOD No comment entered. Ordering Provider: GILSON OG Report Released Date/Time: Aug 10, 2024 04:01 PM Reporting Lab: [facility] [address] [facility] [address] Performing Lab: [facility] [address] [place] [address] WBC 4.3 10*3/uL 3.6-11.2 RBC 2.22 10*6/uL [...] 10*3/uL 2.10-8.00 Aug 10, 2024 06:30 PM [facility] MRSA SURVL NARES DNA NARES Specimen [...] Aug 10, 2024 04:01 PM Reporting Lab: [place] [address] [facility] [address] Performing Lab: [address] [address] MRSA SURVL NARES DNA Negative Negative Aug 10, 2024 06:02 PM [facility] GLUCOSE,BLOOD-poct (STL) BLOOD Specimen Type: BLOOD Comment: Test Performed by: [id number] Meter #: [id number] Ordering Provider: YASIR SANZ MD Report Released Date/Time: Aug 10, 2024 06:04 PM Reporting Lab: [address] [phone] Performing Lab: [address] [address] GLUCOSE,BLOOD-poct (STL) 94 mg/dL 72-99 Aug 10, 2024 02:12 PM [facility] APTT PLASMA Specimen Type: PLASM A No comment entered. Ordering Provider: YASIR SANZ MD Report Released Date/Time: Aug 10, 2024 02:00 PM Reporting Lab: [address] [address] Performing Lab: [address] [address] APTT 20.1 s L 26.7-39.9 Aug 10, 2024 02:12 PM [facility] PT/INR NEW (STL-MA) PLASMA Specimen Type: PLAS MA No comment entered. Ordering Provider: YASIR SANZ MD Report Released Date/Time: Aug 10, 2024 02:00 PM Reporting Lab: [address] [address] Performing Lab: [place] [address] [facility] [address] PROTIME 13.8 s H 9.4-12.5 INR VALUE 1.2 {INR} Aug 10, 2024 11:30 AM [facility] TSH W/ REFLEX FT4 (STL) PLASMA Specimen Type: PLASMA No comment entered. Ordering Provider: TONY SIMMONS Report Released Date/Time: Aug 02, 2024 12:33 PM Reporting Lab: [place] [address] [facility] [address] Performing Lab: [address] [address] TSH 3.991 u[IU]/mL 0.47-5 Aug 10, 2024 11:30 AM [facility] COMPREHENSIVE METABOLIC PANEL PLASMA Specimen Type: PLASMA Comment: No hemolysis noted. Ordering Provider: TONY SIMMONS Report Released Date/Time: Aug 02, 2024 12:33 PM Reporting Lab: [place] [address] [facility] [address] Performing Lab: [address] [address] CREATININE 0.82 mg/dL 0.7-1.3 UREA NITROGEN 21.7 [...] 96.3 >60 Aug 10, 2024 11:30 AM [facility] CBC BLOOD Specimen Type: BLOOD No comment entered. Ordering Provider: TONY SIMMONS Report Released Date/Time: Aug 02, 2024 12:33 PM Reporting Lab: [facility] [address] [facility] [address] Performing Lab: [facility] [address] [facility] [address] WBC 7.4 10*3/uL 3.6-11.2 RBC 2.81 10*6/uL [...] 0.60 BASOPHILS, ABSOLUTE 0.04 10*3/uL 0.00-0. 20 Vital Signs: All taken on the encounter date This section contains inpatient and outpatient Vital Signs collected on the date of the Encounter. Date/Time Temperature Pulse Blood Pressure Respiratory Rate SP02 Pain Height Weight Body Mass Index Source Sep 07, 2024 11:38 AM 97.3 78 122/76 18 100 0 156.8 [address] [facility] Social History: Smoking Status (Most current) and Tobacco Use (All prior to encounter date) This section includes the most current, and the historical, smoking and tobacco- related health factors from the [place] facility where the Encounter took place. Current Smoking Status This section includes the most current smoking, or tobacco-related health factor, from the [place] facility where the Encounter took place. Date/Time Current Smoking Status Comment Facil ity Jul 17, 2024 04:02 PM ORYX ADMIT TOBACCO SCREEN NO [facility] Tobacco Use History This section includes a history of the smoking, or tobacco-related health factors, that were collected on or before the date of the Encounter. The data comes from the [place] facility where the Encounter took place. Date/Time Smoking Status/Tobacco Use Comment F acility Jan 20, 2023 03:49 PM VA-TOBACCO FORMER USER [facility] Jan 20, 2023 03:49 PM VA-TOBACCO QUIT 15 YRS OR MORE [facility] Feb 06, 2021 04:28 PM VA-TOBACCO FORMER USER [facility] Feb 06, 2021 04:28 PM VA-TOBACCO QUIT 15 YRS OR MORE [facility] Radiology Reports: +/- 30 days of [...] the Encounter. The data comes from all [place] treatment facilities. Date/Time Radiology Report Provider Source Aug 23, 2024 12:12 PM US BLOOD FLOW ABD/ RENAL DOPPLER (COMPLETE): ABRAHAM HAWK [id number] -1955 M Exm Date: AUG 23, 2024@12:12 Req Phys: GILSON OG Pat Loc: [facility]-GEN MED INPT VISIT (Req'g L Img Loc: [facility]-ULTRASOUND [facility] Service: [facility] [address] [place] [address] (Case [id number] COMPLETE) US BLOOD FLOW ABD/RENAL DOPPLER ((US Detailed) CPT:74319 Reason for Study: dopplers Clinical History: Report Status: Verified Date Reported: AUG 23, 2024 Date Verified: AUG 23, 2024 Time Study Analyst E-Sig:/ES/PETROS MCCORD Report: Case [id number], [id number]. US ABDOMEN LTD, SINGLE ORG OR QUADRANT, [...] vasculature. Primary Interpreting Staff: PETROS MCCORD MD (Time Study Analyst) /PETROS SRIVASTAVA [facility] Aug 23, 2024 12:12 PM US ABDOMEN LTD, SI NGLE ORG OR QUADRANT: ABRAHAM HAWK [id number] -1955 Exm Date: AUG 23, 2024@12:12 Req Phys: GILSON OG Pat Loc: [facility]-GEN MED INPT VISIT (Req'g L Img Loc: [facility]ULTRASOUND [facility] Service: Unknown [facility] [address] [place] [address] (Case [id number] COMPLETE) US ABDOMEN LTD, SINGLE ORG OR CARLITOS(US Detailed) CPT:72492 Reason for Study: Possible SBP, RUQUS with dopplers, please comment on ascites? Clinical History: Report Status: Verified Date Reported: AUG 23, 2024 Date Verified: AUG 23, 2024 Time Study Analyst E-Sig:/ES/PETROS MCCORD Report: Case [id number], [id number]. US ABDOMEN LTD, SINGLE ORG OR QUADRANT, [...] vasculature. Primary Interpreting Staff: PETROS MCCORD MD (Time Study Analyst) /PETROS SRIVASTAVA [facility] Aug 10, 2024 02:[address] ABD PEL W/CONT & 3D: ABRAHAM HAWK [id number] -1955 M Exm Date: AUG 10, 2024@14:33 Req Phys: YASIR SANZ MD Pat Loc: [facility]-EMERGENCY DEPT 2ND SHIFT (R Img Loc: [facility]-CT IMAGING [facility] Service: Unknown [facility] [address] (Case [id number] COMPLETE) CT ABDOMEN AND PELVIS W/CONTRAST (CT Detailed) CPT:25238 Contrast Media : Non-ionic Iodinated Reason for Study: Abdominal pain, vomiting Clinical History: Responsible Attending: Svetlana Attending Contact Number: [id number] Resident Contact Number: Abdominal pain, vomiting Allergies listed in CPRS chart: Patient has answered NKA Creatinine:CREATININE 0.82 mg/dL 08/10/2024 11:30 /eGFR: STL EGFR (within one year). CREATININE 0.82 mg/dL (08/10/24 11:30) Wt: 152.1 lb [68.99 kg] (08/10/2024 11:31) History of: Renal failure, chronic or acute renal disease: NO Report Status: Verified Date Reported: AUG 10, 2024 Date Verified: AUG 10, 2024 Time Study Analyst E-Sig:/ES/PETROS MCCORD Report: Case [id number]. CT ABDOMEN AND PELVIS W/CONTRAST. Gastrointestinal contrast: [...] inguinal hernias. Dictated by Kenneth Albright DO (campus president). I, Petros Mccord, have reviewed the images and report and concur with these findings. Primary Interpreting Staff: PETROS MCCORD MD (Time Study Analyst) Primary Interpreting Resident: KENNETH ALBRIGHT, Artificial Flower Maker /PETROS REESE [facility] Pathology Reports: +/- 30 [...] the Encounter. The data comes from all [place] treatment facilities. Date/Time Pathology Report Provider Source Aug 16, 2024 09:43 AM LR SURGICAL PATHOL OGY REPORT: LOCAL TITLE: LR SURGICAL PATHOLOGY REPORT STANDARD TITLE: PATHOLOGY PROCEDURE NOTE DATE OF NOTE: AUG 16, 2024@09:43:26 ENTRY DATE: AUG 16, 2024@09:43:26 AUTHOR: TEMPLETON,CRISTIANA EXP COSIGNER: URGENCY: STATUS: COMPLETED $APHDR - [...] Performing Laboratory: Surgical Pathology Report Performed By: [address]# [id number] [address] [address] $FTR - - - - - - [...] - - ABRAHAM HAWK STANDARD FORM 515 ID:[id number] SEX:M :1955 AGE: 68 LOC:APFEE PCP: Deirdre Wild /loly/ CRISTIANA TEMPLETON Pathologist Signed: 08/16/2024 09:43 CRISTIANA TEMPLETON [facility] Aug 11, 2024 06:00 AM LR MICROBIOLOGY RE PORT: Accession [UID]: [id number] [[id number]] Received: Aug 11, 2024@06:19 Collection sample: B D BLD. BOTTLE Collection date: Aug 11, 2024 06:00 Site/Specimen: BLOOD Provider: GILSON OG Test(s) ordered: BLOOD CULT (SET 1)............ completed: Aug 17, 2024 10:06 * BACTERIOLOGY FINAL REPORT => Aug 17, 2024 10:22 TECH CODE: [id number] Bacteriology Remark(s): 2. KAA Culture shows NO GROWTH IN 6 DAYS =--=--=--=--=--=--=--=--=-- =--=--=--=--=--=--=--=--=-- =--=--=--=--=--=--=--=-- Performing Laboratory: Bacteriology Report Performed By: [facility] [address] [place] [address]# [id number] [facility] [address] [place] [address] JULISSA BROWN [facility] Encounter Notes: All associated encounter notes This section contains the clinical notes associated to the Encounter. Date/Time Encounter Note(s) Provider Source Sep 17, 2024 01:09 PM ADDENDUM: LOCAL TITLE: Addendum STANDARD TITLE: ADDENDUM DATE OF NOTE: SEP 17, 2024@13:09:11 ENTRY DATE: SEP 17, 2024@13:09:12 AUTHOR: DANIELLE ORTEGA COSIGNER: URGENCY: STATUS: COMPLETED Called Mr. Hawk- received request for service for pt to be seen by Dr. Peters at [facility], advised him his follow up has resumed at [place] and no longer needs to follow with [facility] (delisted from liver transplant list). He will be due for repeat EGD (banded 08/14/24) but was not scheduled for repeat Endoscopy and missed liver clinic visit 08/17/24. Will enter orders for possible overbook in near future and also request pt be added to [facility] list for possible earlier date for EGD. /loly/ Danielle Ortega PA-C Physician Lapidary Apprentice - Gastroenterology Signed: 09/17/2024 13:19 Receipt Acknowledged By: 09/18/2024 10:30 /loly/ ELOISE CARSONN RN REGISTERED NURSE * AWAITING SIGNATURE * TERRY ZAMORA --- Original Document --- 09/07/24 GASTROENTEROLOGY OUTPATIENT FOLLOW UP STL: S: 69 year old MALE with HCV cirrhosis and Hepatocellular carcinoma here for f/u. Previously listed for transplant but diagnosed with SCC of nasopharynx. Admitted since last outpatient visit for nausea, black tarry stools x 3 days.: Was recently discharged with UGIB 3 weeks prior, baseline Hgb 11.5, initial Hgb here 8.8, repeat 7.1 just 4-6 hrs later. Underwent EGD as scheduled on 08/11, found interval increase in size of known esophageal varices but no obvious culprit lesions. 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 Underwent that second procedure without complication and biopsies obtained, H pylori antigen testing also sent. Also banded multiple varices thought to be potential causes of future bleeds. Results pending on biopsies with GI f/u scheduled After d/c also had RUQ US to evaluate for ascites, moderate ascties noted 08/23. Feels his belly is a little distended. Has added more salt to his diet. Feeling better than when he was in the hospital, slowly starting to gain back some of his activity. Patient tells me he believes his progression on his PET scan is due to an immunoburst and that it is from the Keytruda and not a progression of his cancer. Believes his cancer is receding, mucous is receding, not as much pain or headaches. Using RSO oil 2x per day, now taking orally. bms are lately 0-2 times per day, back to prior frequency, still loose stools but is taking loperamide which helps. Doesnt take it frequently because he wants to cure naturally . PT denies N/V, constipation, abd pain, F/C/NS, BRPBR/melena, increased abd swelling, CP/SOB, jaundice, or new rashes. He denies confusion, ankle edema, sleep/day disturbances, and weakness. ROS: Review of systems is as per HPI and additionally notable for Constitutional: No fever, No weakness/ fatigue Cardiovascular: No chest pain, No palpitations Respiratory: No shortness of breath, No cough Genitourinary: No dysuria, No polyuria Neurology: No headache, No tremors Musculoskeletal: No joint pain, No back pain Skin: No rash, No itching Psychiatric: No anxiety, No depression 10 point ROS is otherwise negative SOCIAL HX: EtOH: none TOBACCO: none illicits: marijuana less frequently social support: partner O: VSS: BP:122/76 (09/07/2024 11:38) P:78 (09/07/2024 11:38) T:97.3 F [36.3 C] (09/07/2024 11:38) R: 18 (09/07/2024 11:38) Wt:156.8 lb [71.12 kg] (09/07/2024 11:38) BMI: 21.3 PE: General: well nourished, well developed ambulatory patient Eyes: anicteric with normal reflexes. Neck: prominent left cervical lymph node, firm. Chest: clear to auscultation bilaterally. Heart RRR. Abdomen: mild-moderate abd distension with ascites, not tense. Nontender to palpation. Extremities: normal pulses and reflexes. + muscle wasting. Neuro: intact Skin: no rashes, no telangiectasia. No palmar erythema. LABS: CBC: WBC 4.7 10*3/uL 08/31/2024 14:04 RBC 3.54 L 10*6/uL 08/31/2024 14:04 HGB 10.7 L g/dL 08/31/2024 14:04 HCT 34.7 L % 08/31/2024 14:04 MCV 98.0 fL 08/31/2024 14:04 MCH 30.2 pg 08/31/2024 14:04 MCHC 30.8 L g/dL 08/31/2024 14:04 RDW 15.1 % 08/31/2024 14:04 PLT 79 L 10*3/uL 08/31/2024 14:04 MPV 11.5 H fL 08/31/2024 14:04 NEUTROPHILS, AUTO % 67 % 08/17/2024 15:34 LYMPHOCYTES, AUTO % 12 % 08/17/2024 15:34 MONOCYTES, AUTO % 13 % 08/17/2024 15:34 EOSINOPHILS, AUTO % 7 % 08/17/2024 15:34 BASOPHILS, AUTO % 1 % 08/17/2024 15:34 NEUTROPHILS, ABSOLUTE 3.32 10*3/uL 08/17/2024 15:34 LYMPHOCYTES, ABSOLUTE 0.61 L 10*3/uL 08/17/2024 15:34 MONOCYTES, ABSOLUTE 0.63 10*3/uL 08/17/2024 15:34 EOSINOPHILS, ABSOLUTE 0.36 10*3/uL 08/17/2024 15:34 BASOPHILS, ABSOLUTE 0.05 10*3/uL 08/17/2024 15:34 NRBC% 0 #/100 (WBCs) 08/10/2024 20:00 NEUTROPHILS 84.4 % 08/31/2024 14:04 BAND NEUTROPHILS 0.9 % 08/31/2024 14:04 LYMPHOCYTES 10.4 % 08/31/2024 14:04 MONOCYTES 4.3 % 08/31/2024 14:04 EOSINOPHILS 1.7 % 08/14/2024 20:00 BASOPHILS 0.8 % 08/15/2024 06:00 METAMYELOCYTES 0.9 % 07/20/2024 20:00 MYELOCYTES 0.9 % 07/20/2024 20:00 PROMYELOCYTES 0.9 % 07/20/2024 13:13 ATYPICAL LYMPHOCYTES 1.8 % 08/10/2024 20:00 IMMATURE PLT FRACTION 4.5 % 08/31/2024 14:04 ANISOCYTOSIS 1+ 08/31/2024 14:04 POIKILOCYTOSIS 1+ 08/11/2024 06:00 TEARDROPS 1+ 07/13/2024 12:39 MACROCYTOSIS 1+ 08/31/2024 14:04 POLYCHROMASIA 1+ 08/15/2024 06:00 STOMATOCYTES 1+ 08/11/2024 06:00 SGOT: 28 U/L (08/31/24 14:04) SGPT: 20 U/L (08/31/24 14:04) Alk Phos: ALKALINE PHOSPHATASE 87 U/L 08/31/2024 14:04 T.Bili TOTAL BILIRUBIN 0.4 mg/dL 08/31/2024 14:04 No data available for: URIC ACID 26.4 mg/dL H (08/31/24 14:04) CREATININE 0.90 mg/dL 08/31/2024 14:04 CREATININE 0.90 mg/dL 08/31/2024 14:04 EGFR (CKD-EPI 2020) 93.6 08/31/2024 14:04 TSH: TSH 4.570 uIU/mL 08/17/2024 15:34 PT:13.6 sec H (08/14/24 09:20) INR: INR VALUE 1.2 INR 08/14/2024 09:20 PROTIME 13.6 H sec 08/14/2024 09:20 1.2 INR (08/14/24 09:20) Na+: SODIUM 137 mEq/L 08/31/2024 14:04 K+: POTASSIUM 3.8 mEq/L 08/31/2024 14:04 Cl-: 100 mEq/L (08/31/24 14:04) CO2: CARBON DIOXIDE 25 mEq/L 08/31/2024 14:04 BUN: 26.4 mg/dL H (08/31/24 14:04) Cr: CREATININE 0.90 mg/dL 08/31/2024 14:04 Glc: GLUCOSE 108 H mg/dL 08/31/2024 14:04 Prt: PROTEIN 7.3 g/dL 08/31/2024 14:04 Albumin: ALBUMIN 3.8 g/dL 08/31/2024 14:04 HEP C GENOTYPING(STL) NOT DETECTED 03/11/2021 16:32 HCV RNA,PCR (IU/ML) <15 IU/mL 06/07/2022 13:50 HCV RNA By PCR Quant(Log IU/ML) <1.18 Log IU/mL 06/07/2022 13:50 HEP C Ab HCV Ab (STL) REACTIVE H* S/CO 04/27/2022 11:12 RADIOLOGY: Impression for US ABDOMEN LTD, SINGLE ORG OR QUADRANT, 08/23/24, case [id number] 1. Moderate volume ascites with the largest pockets in the right and left lower quadrant. 2. Chronic liver disease. Stable hyperechoic focus within the right hepatic lobe which may relate to the known treatment change. 3. Patent hepatic vasculature. Impression for CT ABDOMEN AND PELVIS W/CONTRAST, 08/10/24, case [id number] 1. Chronic liver disease with sequela portal [...] inguinal hernias. Dictated by Kenneth Albright DO (campus president). I, Petros Mccord, have reviewed the images and report and concur with these findings. Date Procedure CPT Status Case # 05/28/2024 MRI ABDOMEN W/O&W CONT [id number] Electronically [id number] 05/28/2024: IMPRESSION: 1. Stable posttreatment changes and LR-TR nonviable lesion in hepatic segment 8. 2. Scattered LR4 and LR3 observations throughout the liver. Although not significantly changed in size when compared to prior, several observations that were previously characterized as LR3, now demonstrate a pseudocapsule and diffusion restriction and are thus categorized as LR4, detailed above. 3. Hepatic cirrhosis with splenomegaly. Full report reviewed in [facility], other lesions as listed: lesion 2 - segment 2, now 9 mm LR-4 lesion 3 - segment 3, now 10 mm, LR-4 Lesion 4 - segment 5 near GB fossa, 5 mm , LR-4 EGD 05/16/23 The Diapharagmatic pinch, gastroesophageal junction and squamocolumnar junction were located at 43 cm . Esophagus Severe inflammation and thick layer of white plaques coating the entire oropharynx and eosphagus s/p brushings to evaluate for edenilson esophagitis. The exam was abbreviated due to severity of inflammation. Medium sized varices were seen however examination limited. Stomach EGD 07/18/24 - Small to medium sized esophageal varices. - Portal hypertensive gastropathy. EGD 08/11/24 - Large (> 5 mm) esophageal varices. - LA Grade B esophagitis with no bleeding. - Non-bleeding gastric ulcer with no stigmata of bleeding. - Non-obstructing non-bleeding duodenal ulcers with no stigmata of bleeding suspicious for checkpoint inhibitor enteritis. - No specimens collected. EGD 08/14/24 - Grade III esophageal varices with no stigmata of recent bleeding. Completely eradicated. Banded. - Erythematous mucosa in the antrum. - Non-obstructing non-bleeding duodenal (serpifinous) ulcers with no stigmata of bleeding. Suspicious for ICI enteritis. Biopsied. 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 Mild-moderate abd distention on exam. Continued loose bms but overall improvement in symptoms since d/c. PLAN: # Hepatocellular carcinoma: Status post TACE 08/05/2022 - MRI 05/28/24 with LR-4 lesions < 1 cm - Repeat MRI now , AFP - Previously listed for transplant, now delisted. Not in consideration due to H&N SCC. 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 -Continue furosemide 20 mg, add spironolactone 50 mg -Avoid salt substitutes, potassium -Continue avoidance of alcohol and tobacco products - Varices: s/p banding 08/14/24 - 5 mg bid propranololat present, monitor SCr/hemodynamics closely. BP 122 76 today - Was to be scheduled for 4 week EGD f/u, needs to be arranged. # Loose stools: encouraged use of his prescription of loperamide, which he has been trying to avoid using. RTC 3 month with repeat labs. Total time spent: 45 minutes. This includes time spent before the visit reviewing the chart, during the visit, and after the visit on documentation and ordering tests. 09/07/2024 13:00 [facility]-ONCOLOGY [facility] 10/15/2024 15:00 [facility]-OPTOMETRY 9 /loly/ Danielle Ortega PA-C Physician Lapidary Apprentice - Gastroenterology Signed: 09/07/2024 14:20 09/10/2024 ADDENDUM STATUS: COMPLETED Test Name Result Units Range --------- ------ ----- ----- ALPHA-FETOPROTEIN(STL-PB) 15.01 H ng/mL 1 - 8.78 /loly/ Danielle Ortega PA-C Physician Lapidary Apprentice - Gastroenterology Signed: 09/10/2024 09:36 DANIELLE ORTEGA [facility] Sep 07, 2024 11:48 AM GASTROENTEROLOGY OUTPATIENT NOTE: LOCAL TITLE: GASTROENTEROLOGY OUTPATIENT FOLLOW UP ST STANDARD TITLE: GASTROENTEROLOGY OUTPATIENT NOTE DATE OF NOTE: SEP 07, 2024@11:48 ENTRY DATE: SEP 07, 2024@11:48:49 AUTHOR: DANIELLE ORTEGA EXP COSIGNER: URGENCY: STATUS: COMPLETED GASTROENTEROLOGY OUTPATIENT FOLLOW UP STL Has ADDENDA S: 69 year old MALE with HCV cirrhosis and Hepatocellular carcinoma here for f/u. Previously listed for transplant but diagnosed with SCC of nasopharynx. Admitted since last outpatient visit for nausea, black tarry stools x 3 days.: Was recently discharged with UGIB 3 weeks prior, baseline Hgb 11.5, initial Hgb here 8.8, repeat 7.1 just 4-6 hrs later. Underwent EGD as scheduled on 08/11, found interval increase in size of known esophageal varices but no obvious culprit lesions. 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 Underwent that second procedure without complication and biopsies obtained, H pylori antigen testing also sent. Also banded multiple varices thought to be potential causes of future bleeds. Results pending on biopsies with GI f/u scheduled After d/c also had RUQ US to evaluate for ascites, moderate ascties noted 08/23. Feels his belly is a little distended. Has added more salt to his diet. Feeling better than when he was in the hospital, slowly starting to gain back some of his activity. Patient tells me he believes his progression on his PET scan is due to an immunoburst and that it is from the Keytruda and not a progression of his cancer. Believes his cancer is receding, mucous is receding, not as much pain or headaches. Using RSO oil 2x per day, now taking orally. bms are lately 0-2 times per day, back to prior frequency, still loose stools but is taking loperamide which helps. Doesnt take it frequently because he wants to cure naturally . PT denies N/V, constipation, abd pain, F/C/NS, BRPBR/melena, increased abd swelling, CP/SOB, jaundice, or new rashes. He denies confusion, ankle edema, sleep/day disturbances, and weakness. ROS: Review of systems is as per HPI and additionally notable for Constitutional: No fever, No weakness/ fatigue Cardiovascular: No chest pain, No palpitations Respiratory: No shortness of breath, No cough Genitourinary: No dysuria, No polyuria Neurology: No headache, No tremors Musculoskeletal: No joint pain, No back pain Skin: No rash, No itching Psychiatric: No anxiety, No depression 10 point ROS is otherwise negative SOCIAL HX: EtOH: none TOBACCO: none illicits: marijuana less frequently social support: partner O: VSS: BP:122/76 (09/07/2024 11:38) P:78 (09/07/2024 11:38) T:97.3 F [36.3 C] (09/07/2024 11:38) R: 18 (09/07/2024 11:38) Wt:156.8 lb [71.12 kg] (09/07/2024 11:38) BMI: 21.3 PE: General: well nourished, well developed ambulatory patient Eyes: anicteric with normal reflexes. Neck: prominent left cervical lymph node, firm. Chest: clear to auscultation bilaterally. Heart RRR. Abdomen: mild-moderate abd distension with ascites, not tense. Nontender to palpation. Extremities: normal pulses and reflexes. + muscle wasting. Neuro: intact Skin: no rashes, no telangiectasia. No palmar erythema. LABS: CBC: WBC 4.7 10*3/uL 08/31/2024 14:04 RBC 3.54 L 10*6/uL 08/31/2024 14:04 HGB 10.7 L g/dL 08/31/2024 14:04 HCT 34.7 L % 08/31/2024 14:04 MCV 98.0 fL 08/31/2024 14:04 MCH 30.2 pg 08/31/2024 14:04 MCHC 30.8 L g/dL 08/31/2024 14:04 RDW 15.1 % 08/31/2024 14:04 PLT 79 L 10*3/uL 08/31/2024 14:04 MPV 11.5 H fL 08/31/2024 14:04 NEUTROPHILS, AUTO % 67 % 08/17/2024 15:34 LYMPHOCYTES, AUTO % 12 % 08/17/2024 15:34 MONOCYTES, AUTO % 13 % 08/17/2024 15:34 EOSINOPHILS, AUTO % 7 % 08/17/2024 15:34 BASOPHILS, AUTO % 1 % 08/17/2024 15:34 NEUTROPHILS, ABSOLUTE 3.32 10*3/uL 08/17/2024 15:34 LYMPHOCYTES, ABSOLUTE 0.61 L 10*3/uL 08/17/2024 15:34 MONOCYTES, ABSOLUTE 0.63 10*3/uL 08/17/2024 15:34 EOSINOPHILS, ABSOLUTE 0.36 10*3/uL 08/17/2024 15:34 BASOPHILS, ABSOLUTE 0.05 10*3/uL 08/17/2024 15:34 NRBC% 0 #/100 (WBCs) 08/10/2024 20:00 NEUTROPHILS 84.4 % 08/31/2024 14:04 BAND NEUTROPHILS 0.9 % 08/31/2024 14:04 LYMPHOCYTES 10.4 % 08/31/2024 14:04 MONOCYTES 4.3 % 08/31/2024 14:04 EOSINOPHILS 1.7 % 08/14/2024 20:00 BASOPHILS 0.8 % 08/15/2024 06:00 METAMYELOCYTES 0.9 % 07/20/2024 20:00 MYELOCYTES 0.9 % 07/20/2024 20:00 PROMYELOCYTES 0.9 % 07/20/2024 13:13 ATYPICAL LYMPHOCYTES 1.8 % 08/10/2024 20:00 IMMATURE PLT FRACTION 4.5 % 08/31/2024 14:04 ANISOCYTOSIS 1+ 08/31/2024 14:04 POIKILOCYTOSIS 1+ 08/11/2024 06:00 TEARDROPS 1+ 07/13/2024 12:39 MACROCYTOSIS 1+ 08/31/2024 14:04 POLYCHROMASIA 1+ 08/15/2024 06:00 STOMATOCYTES 1+ 08/11/2024 06:00 SGOT: 28 U/L (08/31/24 14:04) SGPT: 20 U/L (08/31/24 14:04) Alk Phos: ALKALINE PHOSPHATASE 87 U/L 08/31/2024 14:04 T.Bili TOTAL BILIRUBIN 0.4 mg/dL 08/31/2024 14:04 No data available for: URIC ACID 26.4 mg/dL H (08/31/24 14:04) CREATININE 0.90 mg/dL 08/31/2024 14:04 CREATININE 0.90 mg/dL 08/31/2024 14:04 EGFR (CKD-EPI 2020) 93.6 08/31/2024 14:04 TSH: TSH 4.570 uIU/mL 08/17/2024 15:34 PT:13.6 sec H (08/14/24 09:20) INR: INR VALUE 1.2 INR 08/14/2024 09:20 PROTIME 13.6 H sec 08/14/2024 09:20 1.2 INR (08/14/24 09:20) Na+: SODIUM 137 mEq/L 08/31/2024 14:04 K+: POTASSIUM 3.8 mEq/L 08/31/2024 14:04 Cl-: 100 mEq/L (08/31/24 14:04) CO2: CARBON DIOXIDE 25 mEq/L 08/31/2024 14:04 BUN: 26.4 mg/dL H (08/31/24 14:04) Cr: CREATININE 0.90 mg/dL 08/31/2024 14:04 Glc: GLUCOSE 108 H mg/dL 08/31/2024 14:04 Prt: PROTEIN 7.3 g/dL 08/31/2024 14:04 Albumin: ALBUMIN 3.8 g/dL 08/31/2024 14:04 HEP C GENOTYPING(STL) NOT DETECTED 03/11/2021 16:32 HCV RNA,PCR (IU/ML) <15 IU/mL 06/07/2022 13:50 HCV RNA By PCR Quant(Log IU/ML) <1.18 Log IU/mL 06/07/2022 13:50 HEP C Ab HCV Ab (STL) REACTIVE H* S/CO 04/27/2022 11:12 RADIOLOGY: Impression for US ABDOMEN LTD, SINGLE ORG OR QUADRANT, 08/23/24, case [id number] 1. Moderate volume ascites with the largest pockets in the right and left lower quadrant. 2. Chronic liver disease. Stable hyperechoic focus within the right hepatic lobe which may relate to the known treatment change. 3. Patent hepatic vasculature. Impression for CT ABDOMEN AND PELVIS W/CONTRAST, 08/10/24, case [id number] 1. Chronic liver disease with sequela portal [...] inguinal hernias. Dictated by Kenneth Albright DO (campus president). I, Petros Mccord, have reviewed the images and report and concur with these findings. Date Procedure CPT Status Case # 05/28/2024 MRI ABDOMEN W/O&W CONT [id number] Electronically [id number] 05/28/2024: IMPRESSION: 1. Stable posttreatment changes and LR-TR nonviable lesion in hepatic segment 8. 2. Scattered LR4 and LR3 observations throughout the liver. Although not significantly changed in size when compared to prior, several observations that were previously characterized as LR3, now demonstrate a pseudocapsule and diffusion restriction and are thus categorized as LR4, detailed above. 3. Hepatic cirrhosis with splenomegaly. Full report reviewed in [facility], other lesions as listed: lesion 2 - segment 2, now 9 mm LR-4 lesion 3 - segment 3, now 10 mm, LR-4 Lesion 4 - segment 5 near GB fossa, 5 mm , LR-4 EGD 05/16/23 The Diapharagmatic pinch, gastroesophageal junction and squamocolumnar junction were located at 43 cm . Esophagus Severe inflammation and thick layer of white plaques coating the entire oropharynx and eosphagus s/p brushings to evaluate for edenilson esophagitis. The exam was abbreviated due to severity of inflammation. Medium sized varices were seen however examination limited. Stomach EGD 07/18/24 - Small to medium sized esophageal varices. - Portal hypertensive gastropathy. EGD 08/11/24 - Large (> 5 mm) esophageal varices. - LA Grade B esophagitis with no bleeding. - Non-bleeding gastric ulcer with no stigmata of bleeding. - Non-obstructing non-bleeding duodenal ulcers with no stigmata of bleeding suspicious for checkpoint inhibitor enteritis. - No specimens collected. EGD 08/14/24 - Grade III esophageal varices with no stigmata of recent bleeding. Completely eradicated. Banded. - Erythematous mucosa in the antrum. - Non-obstructing non-bleeding duodenal (serpifinous) ulcers with no stigmata of bleeding. Suspicious for ICI enteritis. Biopsied. 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 Mild-moderate abd distention on exam. Continued loose bms but overall improvement in symptoms since d/c. PLAN: # Hepatocellular carcinoma: Status post TACE 08/05/2022 - MRI 05/28/24 with LR-4 lesions < 1 cm - Repeat MRI now , AFP - Previously listed for transplant, now delisted. Not in consideration due to H&N SCC. 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 -Continue furosemide 20 mg, add spironolactone 50 mg -Avoid salt substitutes, potassium -Continue avoidance of alcohol and tobacco products - Varices: s/p banding 08/14/24 - 5 mg bid propranololat present, monitor SCr/hemodynamics closely. BP 122 76 today - Was to be scheduled for 4 week EGD f/u, needs to be arranged. # Loose stools: encouraged use of his prescription of loperamide, which he has been trying to avoid using. RTC 3 month with repeat labs. Total time spent: 45 minutes. This includes time spent before the visit reviewing the chart, during the visit, and after the visit on documentation and ordering tests. 09/07/2024 13:00 LOKESH-ONCOLOGY IRIS 10/15/2024 15:00 LOKESH-OPTOMETRY 9 /loly/ Danielle Ortega PA-C Physician Lapidary Apprentice - Gastroenterology Signed: 09/07/2024 14:20 09/10/2024 ADDENDUM STATUS: COMPLETED Test Name Result Units Range --------- ------ ----- ----- ALPHA-FETOPROTEIN(STL-PB) 15.01 H ng/mL 1 - 8.78 /loly/ Danielle Ortega PA-C Physician Lapidary Apprentice - Gastroenterology Signed: 09/10/2024 09:36 09/17/2024 ADDENDUM STATUS: COMPLETED Called Mr. Hawk- received request for service for pt to be seen by Dr. Peters at [facility], advised him his follow up has resumed at [place] and no longer needs to follow with [facility] (delisted from liver transplant list). He will be due for repeat EGD (banded 08/14/24) but was not scheduled for repeat Endoscopy and missed liver clinic visit 08/17/24. Will enter orders for possible overbook in near future and also request pt be added to [facility] list for possible earlier date for EGD. /loly/ Danielle Ortega PA-C Physician Lapidary Apprentice - Gastroenterology Signed: 09/17/2024 13:19 Receipt Acknowledged By: 09/18/2024 10:30 /loly/ ELOISE AGUILAR RN REGISTERED NURSE * AWAITING SIGNATURE * TERRY ZAMORA 09/18/2024 ADDENDUM STATUS: COMPLETED patient scheduled for EGD 10/02/24, and added to [facility] for earlier scheduling if possible /loly/ ELOISE AGUILAR RN REGISTERED NURSE Signed: 09/18/2024 12:41 09/19/2024 ADDENDUM STATUS: COMPLETED Appt letter and instructions mailed per orders. /loly/ JEFF Borges, RN GI Signed: 09/19/2024 06:48 DANIELLE ORTEGA [facility]
--- OUTSIDE RECORDS SUMMARY | 2024-10-08 17:09 | XMS_ITS | Encounter Summary ---
Author Name [facility] [place] [facility] [facility] [place] Address [address] [place] [address] Care Team Providers Care Slide Fastener Repairer Name Role Phone SUKHJINDER CHAHAL Primary Care [...] SUPPL EMENT Nov 25, 2021 PLAN G [id number] [phone] ELLEN HAWK VID PATIENT AARP MED SUPP MEDIGAP PLAN G MEDIC ARE SUPPL EMENT Nov 25, 2021 PLAN G [id number] [phone] ELLEN HAWK VID PATIENT MEDICARE (WNR) MEDICARE (M) PART B Sep 25, 2021 PART B [id number] ELLEN HAWK VID PATIENT MEDICARE (WNR) MEDICARE (M) PART A Aug 25, 2021 PART A [id number] ELLEN HAWK PATIENT Selected Encounter This section includes the information on record at [place] for the Encounter. Date/Time Encounter Type Encounter Description Reason Provider Source Apr 20, 2024 01:00 PM ORAL FUNCTION THERAPY SPEECH-LANGUAGE PATHOLOGY ICD-10-CM R13.10 Dysphagia, unspecified ABRAHAM RIVERO [facility] Encounter Template Text not used by [place] Assessments - Encounter Diagnoses This section includes the primary and secondary diagnoses documented for the Encounter. Date/Time Primary/Secondary Diagnosis Diagnosis Name Provider Source Apr 20, 2024 01:51 PM PRIMARY Dysphagia, unspecified ABRAHAM RIVERO [facility] Plan of Treatment: Future Appointments (+ 6 months) and Future Tests (+/- 45 days) The Plan of Treatment section includes future care activities for the patient [facility] [place] [facility]. This section includes future appointments [...] 23, 2024 11:00 AM AMBULATORY - NONE [facility] Apr 23, 2024 01:30 PM AMBULATORY - SURGERY [facility] May 02, 2024 01:30 PM AMBULATORY - SURGERY [facility] May 11, 2024 01:00 PM AMBULATORY - NONE [facility] May 11, 2024 02:15 PM AMBULATORY - NONE [facility] May 11, 2024 02:30 PM AMBULATORY - MEDICINE [facility] May 17, 2024 02:15 PM AMBULATORY - NONE [facility] May 22, 2024 03:30 PM AMBULATORY - NONE [facility] May 28, 2024 01:30 PM AMBULATORY - NONE [facility] Jun 07, 2024 11:15 AM AMBULATORY - REHAB MEDICIN E [facility] Jun 07, 2024 01:00 PM AMBULATORY - MEDICINE [facility] Jul 13, 2024 11:30 AM AMBULATORY - MEDICINE [facility] Jul 13, 2024 12:00 PM AMBULATORY - MEDICINE [facility] Jul 17, 2024 04:02 PM AMBULATORY - MEDICINE [facility] Jul 25, 2024 01:00 PM AMBULATORY - MEDICINE [facility] Jul 26, 2024 10:00 AM AMBULATORY - MEDICINE [facility] Jul 27, 2024 03:14 PM AMBULATORY - MEDICINE [facility] Aug 01, 2024 10:15 AM AMBULATORY - NONE [facility] Aug 02, 2024 11:30 AM AMBULATORY - MEDICINE [facility] Aug 02, 2024 11:31 AM AMBULATORY - MEDICINE [facility] Lab Results: +/- 30 [...] Type Comment May 11, 2024 02:35 PM [facility] TSH W/ REFLEX FT4 (STL) PLASMA Specimen Type: PLASMA No comment entered. Ordering Provider: TONY SIMMONS Report Released Date/Time: Jan 05, 2024 02:09 PM Reporting Lab: [place] [address] [facility] [address] Performing Lab: [address] [address] TSH 1.974 u[IU]/mL 0.47-5 May 11, 2024 02:20 PM [facility] APTT PLASMA Specimen Type: PLASM A No comment entered. Ordering Provider: BAL CAREY Report Released Date/Time: May 11, 2024 02:03 PM Reporting Lab: [address] [address] Performing Lab: [address] [address] APTT 28.7 s 26.7-39.9 May 11, 2024 02:20 PM [facility] PT/INR NEW (STL-MA) PLASMA Specimen Type: PLAS MA No comment entered. Ordering Provider: BAL CAREY Report Released Date/Time: May 11, 2024 02:03 PM Reporting Lab: [facility] [address] [facility] [address] Performing Lab: [address] [address] PROTIME 12.1 s 9.4-12.5 INR VALUE 1.1 {INR} May 11, 2024 02:20 PM [facility] COMPREHENSIVE METABOLIC PANEL PLASMA Specimen Type: PLASMA Comment: No hemolysis noted. Ordering Provider: BAL CAREY Report Released Date/Time: May 11, 2024 02:03 PM Reporting Lab: [address] [address] Performing Lab: [address] [address] CREATININE 1.06 mg/dL 0.7-1.3 UREA NITROGEN 20.5 [...] (CKD-EPI 2020) 76.9 >60 May 11, 2024 02:20 PM [facility] HEP B CORE AB TOTAL. (STL) SERUM Specimen Typ e: SERUM No comment entered. Ordering Provider: BAL CAREY Report Released Date/Time: May 11, 2024 02:18 PM Reporting Lab: [address] [address] Performing Lab: [address] [address] HEP B CORE AB TOTAL. (STL) Nonreactive N onreactive May 11, 2024 02:19 PM [facility] PROTEIN ELECTROPHORESIS BLOOD SERUM Specimen Type: SERUM Comment: Reference Range: None Detected normalcy status - Abnormal normalcy status - Abnormal NOTE: THIS RESULT IS FLAGGED ABNORMAL Evaluation reveals a restricted band (M-spike) migrating in the gamma globulin region. If not already requested, Immunofixation should be considered. Test Performed by [facility] [place], [address] [place] [address] Tristin Iyer M.D., Ph.D., Director of Laboratories , CLIA [id number] PREVIOUS SUGAR: IgG [place] Ordering Provider: TONY SIMMONS Report Released Date/Time: Jan 05, 2024 02:08 PM Reporting Lab: [address] [address] Performing Lab: [address] ALPHA-1 GLOBULIN(SO-PB-STL) 0.3 g/dL 0.2 -0.3 ALPHA-2 GLOBULIN(SO-PB-STL) 0.8 g/dL 0.5 -0.9 BETA 1 GLOBULIN(SO-PB-STL) 0.4 g/dL 0.4- 0.6 GAMMA GLOBULIN (SO-PB-STL) 2.0 g/dL H 0.8- 1.7 TOTAL PROTEIN (SO-PB-STL) 7.9 g/dL 6.1-8 .1 ALBUMIN(ELECTROPHORESIS 4.1 g/dL 3.8-4.8 BETA 2 GLOBULIN (SO-PB) 0.3 g/dL 0.2-0.5 INTERPRETATION (STL-PB) SEE NOTE ABNORMAL PROTEIN BAND 1 (SO-PB-STL) 1.2 g/dL H May 11, 2024 02:19 PM [facility] IGM (STL) PLASMA Specimen Type: PLASM A Comment: No hemolysis noted. Ordering Provider: TONY SIMMONS Report Released Date/Time: Jan 05, 2024 02:08 PM Reporting Lab: [facility] [address] [facility] [address] Performing Lab: [facility] [address] [place] [phone] IGM (STL) 117 mg/dL 22-240 May 11, 2024 02:19 PM [facility] IGA (STL) PLASMA Specimen Type: PLASM A Comment: No hemolysis noted. Ordering Provider: TONY SIMMONS Report Released Date/Time: Jan 05, 2024 02:08 PM Reporting Lab: [address] [address] Performing Lab: [address] [address] IGA (STL) 117 mg/dL 63-484 May 11, 2024 02:19 PM [facility] IGG (STL) PLASMA Specimen Type: PLASM A Comment: No hemolysis noted. Ordering Provider: TONY SIMMONS Report Released Date/Time: Jan 05, 2024 02:08 PM Reporting Lab: [address] [address] Performing Lab: [address] [address] IGG (STL) 2162 mg/dL H 540-1822 May 11, 2024 02:19 PM [facility] KAPPA/LAMBDA FREE LC PANEL (STL-PB) SERUM Spe cimen Type: SERUM No comment entered. Ordering Provider: TONY SIMMONS Report Released Date/Time: Jan 05, 2024 02:08 PM Reporting Lab: [address] [address] Performing Lab: [address] [address] KAPPA FREE LC (STL) 92.4 mg/L H 2.4-20.7 LAMBDA FREE LC (STL) 25.6 mg/L 4.2-27.7 KAPPA/LAMBDA RATIO (STL) 3.61 H 0.22-1. 74 May 11, 2024 02:19 PM [facility] PHOSPHOROUS PLASMA Specimen Type: PLASM A Comment: No hemolysis noted. Ordering Provider: TONY SIMMONS Report Released Date/Time: Jan 05, 2024 02:09 PM Reporting Lab: [address] [address] Performing Lab: [address] [address] PHOSPHOROUS 2.5 mg/dL 2.3-4.7 May 11, 2024 02:19 PM [facility] MAGNESIUM PLASMA Specimen Type: PLASM A Comment: No hemolysis noted. Ordering Provider: TONY SIMMONS Report Released Date/Time: Jan 05, 2024 02:09 PM Reporting Lab: [address] [address] Performing Lab: [address] [address] MAGNESIUM 1.9 mg/dL 1.6-2.6 May 11, 2024 02:19 PM [facility] COMPREHENSIVE METABOLIC PANEL PLASMA Specimen Type: PLASMA Comment: No hemolysis noted. Ordering Provider: TONY SIMMONS Report Released Date/Time: Jan 05, 2024 02:08 PM Reporting Lab: [address] [address] Performing Lab: [address] [address] CREATININE 1.04 mg/dL 0.7-1.3 UREA NITROGEN 19.6 [...] 78.7 >60 May 11, 2024 02:19 PM [facility] CBC BLOOD Specimen Type: BLOOD No comment entered. Ordering Provider: TONY SIMMONS Report Released Date/Time: Jan 05, 2024 02:08 PM Reporting Lab: [facility] [address] [facility] [address] Performing Lab: [place] [address] [facility] [address] WBC 4.5 10*3/uL 3.6-11.2 RBC 4.26 10*6/uL [...] 10*3/uL 2.10-8.00 Apr 23, 2024 11:26 AM [facility] GLUCOSE,BLOOD-poct (STL) BLOOD Specimen Type: BLOOD Comment: Test Performed by: [id number] Meter #: [id number] Ordering Provider: SUKHJINDER CHAHAL Report Released Date/Time: Apr 23, 2024 11:43 AM Reporting Lab: [facility] [address] [facility] [address] Performing Lab: [facility] [address] [facility] [address] GLUCOSE,BLOOD-poct (STL) 117 mg/dL H 72-99 Social [...] 20, 2023 03:49 PM VA-TOBACCO FORMER USER [facility] Tobacco Use History This section includes a history of the smoking, or tobacco-related health factors, that were collected on or before the date of the Encounter. The data comes from the [place] facility where the Encounter took place. Date/Time Smoking Status/Tobacco Use Comment F acility Jan 20, 2023 03:49 PM VA-TOBACCO QUIT 15 YRS OR MORE [facility] Feb 06, 2021 04:28 PM VA-TOBACCO FORMER USER [facility] Feb 06, 2021 04:28 PM VA-TOBACCO QUIT 15 YRS OR MORE [facility] Radiology Reports: +/- 30 [...] AM PET/CT TUMOR IMAGING (SKULL TO MID-THIGH)-P: MARCABRAHAM TRUJILLO ROBERTO [id number] -[id number] M Exm Date: APR 23, 2024@11:44 Req Phys: TAMIKA CARRION Loc: -NUCLEAR MEDICINE PET SCAN 2 Img Loc: -PET-CT Service: Unknown [facility], [address] [place] [address] (Case [id number] COMPLETE) PET/CT TUMOR SKULL BASE TO MID-T(NM Detailed) CPT:24536 CPT Modifiers : PS PET TUMOR SUBSQ TX STRATEGY Reason for Study: nasopharynx cancer (Case [id number] COMPLETE) F-18 FLUORODEOXYGLUCOSE (FDG),PER(NM Detailed) CPT:A9552 Clinical History: Report Status: Verified Date Reported: APR 23, 2024 Date Verified: APR 23, 2024 Hand Spring Repairer E-Sig:/ES/ROMANA PARISH M.D. Report: PATIENT NAME: ABRAHAM HAWK. CASE #: [id number], [id number]. PROCEDURE: PET/CT study from the vertex to [...] lytic osseous lesion is noted within the [id number]. Multilevel degenerative changes are noted throughout the [...] PARISH M.D., STAFF PHYSICIAN - DIAGNOSTIC IMAGING (Hand Spring Repairer) /PFT ROMANA PARISH [facility] Encounter Notes: All associated encounter notes This section contains the clinical notes associated to the Encounter. Date/Time Encounter Note(s) Provider Source Apr 20, 2024 01:45 PM SPEECH PATHOLOGY C ONSULT: LOCAL TITLE: SPEECH OPT CONSULT STL STANDARD TITLE: SPEECH PATHOLOGY CONSULT DATE OF NOTE: APR 20, 2024@13:45 ENTRY DATE: APR 20, 2024@13:45:32 AUTHOR: ABRAHAM RIVERO EXP COSIGNER: TAMIKA CARRION URGENCY: STATUS: COMPLETED SPEECH PATHOLOGY THERAPY NOTE NAME: Abraham Hawk [id number] DATE/LENGTH: 04/20/24, 15 minutes DIAGNOSIS: trismus, h/o nasopharyngeal cancer PURPOSE OF VISIT: therapy/instruction with therabite to increase jaw range of motion SERVICES PROVIDED AND ITEMS DISCUSSED: Patient's jaw ROM was measured using the Therabite Range of Motion Scale, measurement was 29. He reported pain with jaw and left side of face and reduced range of motion and only consuming ensure lately. He was able to perform the stretch with Therabite independently after instruction. Therapy regimine of 7-7-7 was provided (7 seconds, 7 stretches, 7x a day). He plans on speaking with ENT regarding jaw/facial pain in next appt. ALTERATIONS TO TREATMENT PLAN: n/a GOAL 1: Patient will demonstrate ability to use Therabite independently to address jaw range of motion. -goal met PLAN: No further intervention indicated at this time. He is able to perform the jaw stretch program independently at home. /loly/ ABRAHAM RIVERO Speech-Language Pathologist Signed: 04/20/2024 13:51 /loly/ TAMIKA CARRION MD Staff Physician, Otolaryngology Cosigned: 04/20/2024 14:08 ABRAHAM RIVERO [facility]
--- OUTSIDE RECORDS SUMMARY | 2024-10-08 17:09 | XMS_ITS ---
Author Name [facility] [facility] [place] [facility] [facility] [place] Address [address] [place] [address] Care Team Providers Care Assistant Corporate Secretary Name Role Phone SUKHJINDER CHAHAL Primary Care [...] SUPPL EMENT Nov 25, 2021 PLAN G [id number] [phone] ELLEN HAWK VID PATIENT AARP MED SUPP MEDIGAP PLAN G MEDIC ARE SUPPL EMENT Nov 25, 2021 PLAN G [id number] [phone] ELLEN HAWK VID PATIENT MEDICARE (WNR) MEDICARE (M) PART B Sep 25, 2021 PART B [id number] ELLEN HAWK VID PATIENT MEDICARE (WNR) MEDICARE (M) PART A Aug 25, 2021 PART A [id number] ELLEN HAWK PATIENT Selected Encounter This section includes the information on record at [place] for the Encounter. Date/Time Encounter Type Encounter Description Reason Provider Source Oct 02, 2024 05:44 AM Outpatient Encounter COMMUNITY CARE CONSULT VANESA WHYTEReg GARCIAAbdiel Encounter Template Text not used by [place] Plan of Treatment: Future Appointments (+ 6 months) and Future Tests (+/- 45 days) The Plan of Treatment section includes future care activities for the patient [facility] This section includes future appointments and future orders which are active, pending or scheduled. Future Appointments This section includes appointments that were scheduled to occur 6 months from the date of the Encounter, up to a maximum of 20 appointments. The data comes from all [facility]. Appointment Date/Time Appointment Type Appointme nt Facility Name Oct 15, 2024 03:00 PM AMBULATORY - SURGERY . [facility] Oct 19, 2024 02:00 PM AMBULATORY - NONE [facility] Active, Pending, and Scheduled Orders This section includes a listing of several types of active, pending, and scheduled orders, including clinic medications orders, diagnostic test orders, procedure orders and consult orders; where the start date of the order is 45 days before the date of the Encounter or 45 days after the date of theEncounter. The data comes from all [facility]. Test Date/Time Test Type Test Details Facility Name Sep 27, 2024 12:00 AM Laboratory - Chemistry Order CBC BLOOD [facility] Sep 27, 2024 12:00 AM Laboratory - Chemistry Order COMPREHENSIVE METABOLIC PANEL GREEN LI/HEP BLD/PLAS PLASMA SP [facility] Oct 19, 2024 12:00 AM Imaging - Magnetic Resonance Imaging (MRI) Order MRI ABDOMEN W/O&W CONT [facility] Lab Results: +/- 30 days of the encounter This section includes the Chemistry and Hematology Lab Results on record with [place] for the patient. Radiology Reports and Pathology Reports are provided separately, in subsequent sections. Lab Results This section contains the Chemistry/Hematology Results that were resulted 30 days before or 30 daysafter the date of the Encounter. Date/Time Source Result Type Result - Unit Interpretation Reference Range Specimen Type Comment Sep 07, 2024 12:39 PM [facility] COMPREHENSIVE METABOLIC PANEL PLASMA Specimen Type: PLASMA Comment: No hemolysis noted. Ordering Provider: TONY SIMMONS Report Released Date/Time: Aug 31, 2024 02:42 PM Reporting Lab: [address] [address] Performing Lab: [address] [address] CREATININE 0.87 mg/dL 0.7-1.3 UREA NITROGEN 24.5 [...] 94.0 >60 Sep 07, 2024 12:39 PM [facility] CBC BLOOD Specimen Type: BLOOD No comment entered. Ordering Provider: TONY SIMMONS Report Released Date/Time: Aug 31, 2024 02:42 PM Reporting Lab: [address] [address] Performing Lab: [address] [address] WBC 5.1 10*3/uL 3.6-11.2 RBC 3.44 10*6/uL [...] 10*3/uL 2.10-8.00 Sep 07, 2024 12:39 PM [facility] ALPHA-FETOPROTEIN(STL-PB) SERUM Specimen Type : SERUM No comment entered. Ordering Provider: CRYSTAL MASSEY Report Released Date/Time: Sep 07, 2024 11:59 AM Reporting Lab: [place] [id number] [facility] [address] Performing Lab: [place] [address] [facility] [address] ALPHA-FETOPROTEIN(STL-PB) 15.01 ng/mL H 1- 8.78 Social History: Smoking Status (Most current) and Tobacco Use (All prior to encounter date) This section includes the most current, and the historical, smoking and tobacco- related health factors from the [place] facility where the Encounter took place. Current Smoking Status This section includes the most current smoking, or tobacco-related health factor, from the [place] facility where the Encounter took place. Date/Time Current Smoking Status Comment Kaz ity Jul 17, 2024 04:02 PM ORYX ADMIT TOBACCO SCREEN NO [facility] Tobacco Use History This section includes a history of the smoking, or tobacco-related health factors, that were collected on or before the date of the Encounter. The data comes from the [place] facility where the Encounter took place. Date/Time Smoking Status/Tobacco Use Comment F acility Jan 20, 2023 03:49 PM VA-TOBACCO FORMER USER [facility] Jan 20, 2023 03:49 PM VA-TOBACCO QUIT 15 YRS OR MORE [facility] Feb 06, 2021 04:28 PM VA-TOBACCO FORMER USER [facility] Feb 06, 2021 04:28 PM VA-TOBACCO QUIT 15 YRS OR MORE [facility] Encounter Notes: All associated encounter notes This section contains the clinical notes associated to the Encounter. Date/Time Encounter Note(s) Provider Source Oct 02, 2024 05:44 AM LETTERS: LOCAL TITLE: COMMUNITY CARE-REQUEST FOR SERVICES (RFS) LETTER ST STANDARD TITLE: LETTERS DATE OF NOTE: OCT 02, 2024@05:44 ENTRY DATE: OCT 02, 2024@05:44:16 AUTHOR: JOY WHYTE EXP COSIGNER: URGENCY: STATUS: COMPLETED [facility] [address] [place] [address] [facility] [address] [facility] [address] Dear Provider, [place] Information: Patient Name: ABRAHAM HAWK Date of : Aug [facility] has received the request continued GI care from you for services that were not originally authorized in the [facility] for this . Upon review, the following determination has been made: Service will be provided by the [place] [facility] under the [facility] Provider's name. Should you have questions, please contact us at [phone] to speak with a patient personal service workers. As a reminder, if applicable, return medical records within 30 days for routine services. Sincerely, Sincerely, JOY WHYTE MSN RN REGISTERED NURSE JOY WHYTE [facility]
--- OUTSIDE RECORDS SUMMARY | 2024-10-08 17:09 | XMS_ITS | Encounter Summary ---
Author Name [facility] [place] Organization [facility] [place] Address [address] [place] [address] Care Team Providers Care Time Lock Expert Name Role Phone SUKHJINDER CHAHAL Primary Care [...] SUPPL EMENT Nov 25, 2021 PLAN G [id number] [phone] ELLEN HAWK VID PATIENT AARP MED SUPP MEDIGAP PLAN G MEDIC ARE SUPPL EMENT Nov 25, 2021 PLAN G [id number] [phone] ELLEN HAWK VID PATIENT MEDICARE (WNR) MEDICARE (M) PART B Sep 25, 2021 PART B [id number] [phone] ELLEN HAWK VID PATIENT MEDICARE (WNR) MEDICARE (M) PART A Aug 25, 2021 PART A [id number] [phone] ELLEN HAWK PATIENT Selected Encounter This section includes the information on record at [place] for the Encounter. Date/Time Encounter Type Encounter Description Reason Pro vider Source Apr 19, 2024 01:00 PM Outpatient Encounter GENERAL INTERNAL MEDICINE I[facility] Encounter Template Text not used by [place] Plan of Treatment: Future Appointments (+ 6 months) and Future Tests (+/- 45 days) The Plan of Treatment section includes future care activities for the patient [facility]. This section includes future appointments and future orders which are active, pending or scheduled. Future Appointments This section includes appointments that were scheduled to occur 6 months from the date of the Encounter, up to a maximum of 20 appointments. The data comes from all [place] treatment facilities. Appointment Date/Time Appointment Type Appointme nt Facility Name Apr 20, 2024 01:00 PM AMBULATORY - REHAB MEDICIN E [facility] Apr 23, 2024 11:00 AM AMBULATORY - NONE [facility] Apr 23, 2024 01:30 PM AMBULATORY - SURGERY [facility] May 02, 2024 01:30 PM AMBULATORY - SURGERY [facility] May 11, 2024 01:00 PM AMBULATORY - NONE [facility] May 11, 2024 02:15 PM AMBULATORY - NONE [facility] May 11, 2024 02:30 PM AMBULATORY - MEDICINE [facility] May 17, 2024 02:15 PM AMBULATORY - NONE [facility] May 22, 2024 03:30 PM AMBULATORY - NONE [facility] May 28, 2024 01:30 PM AMBULATORY - NONE [facility] Jun 07, 2024 11:15 AM AMBULATORY - REHAB MEDICIN E [facility] Jun 07, 2024 01:00 PM AMBULATORY - MEDICINE [facility] Jul 13, 2024 11:30 AM AMBULATORY - MEDICINE [facility] Jul 13, 2024 12:00 PM AMBULATORY - MEDICINE [facility] Jul 17, 2024 04:02 PM AMBULATORY - MEDICINE [facility] Jul 25, 2024 01:00 PM AMBULATORY - MEDICINE [facility] Jul 26, 2024 10:00 AM AMBULATORY - MEDICINE [facility] Jul 27, 2024 03:14 PM AMBULATORY - MEDICINE [facility] Aug 01, 2024 10:15 AM AMBULATORY - NONE [facility] Aug 02, 2024 11:30 AM AMBULATORY - MEDICINE [facility] Lab Results: +/- 30 days of the encounter This section includes the Chemistry and Hematology Lab Results on record with [place] for the patient. Radiology Reports and Pathology Reports are provided separately, in subsequent sections. Lab Results This section contains the Chemistry/Hematology Results that were resulted 30 days before or 30 daysafter the date of the Encounter. Date/Time Source Result Type Result - Unit Interpretation Reference Range Specimen Type Comment May 11, 2024 02:35 PM [facility] TSH W/ REFLEX FT4 (STL) PLASMA Specimen Type: PLASMA No comment entered. Ordering Provider: TONY SIMMONS Report Released Date/Time: Jan 05, 2024 02:09 PM Reporting Lab: [facility] [address] [facility] [address] Performing Lab: [facility] [address] [facility] [address] TSH 1.974 u[IU]/mL 0.47-5 May 11, 2024 02:20 PM [facility] APTT PLASMA Specimen Type: PLASM A No comment entered. Ordering Provider: BAL CAREY Report Released Date/Time: May 11, 2024 02:03 PM Reporting Lab: [facility] [address] [facility] [address] Performing Lab: [facility] [address] [facility] [address] APTT 28.7 s 26.7-39.9 May 11, 2024 02:20 PM [facility] PT/INR NEW (STL-MA) PLASMA Specimen Type: PLAS MA No comment entered. Ordering Provider: BAL CAREY Report Released Date/Time: May 11, 2024 02:03 PM Reporting Lab: [facility] [address] [facility] [address] Performing Lab: [facility] [address] [facility] [address] PROTIME 12.1 s 9.4-12.5 INR VALUE 1.1 {INR} May 11, 2024 02:20 PM [facility] HEP B CORE AB TOTAL. (STL) SERUM Specimen Typ e: SERUM No comment entered. Ordering Provider: BAL CAREY Report Released Date/Time: May 11, 2024 02:18 PM Reporting Lab: [place] [address] [address] [facility] [address] Performing Lab: [place] [address] [facility] [address] HEP B CORE AB TOTAL. (STL) Nonreactive N onreactive May 11, 2024 02:20 PM [facility] COMPREHENSIVE METABOLIC PANEL PLASMA Specimen Type: PLASMA Comment: No hemolysis noted. Ordering Provider: BAL CAREY Report Released Date/Time: May 11, 2024 02:03 PM Reporting Lab: [facility] [address] [facility] [address] Performing Lab: [place] [address] [address] [facility] [address] CREATININE 1.06 mg/dL 0.7-1.3 UREA NITROGEN 20.5 [...] 76.9 >60 May 11, 2024 02:19 PM [facility] PROTEIN ELECTROPHORESIS BLOOD SERUM Specimen Type: SERUM Comment: Reference Range: None Detected normalcy status - Abnormal normalcy status - Abnormal NOTE: THIS RESULT IS FLAGGED ABNORMAL Evaluation reveals a restricted band (M-spike) migrating in the gamma globulin region. If not already requested, Immunofixation should be considered. Test Performed by [facility] [employer], [facility] [employer], [address] [place], [place] Tristin Iyer M.D., Ph.D., Director of Laboratories , [place] [id number] PREVIOUS SUGAR: IgG [place] Ordering Provider: TONY SIMMONS Report Released Date/Time: Jan 05, 2024 02:08 PM Reporting Lab: [address] [address] Performing Lab: [facility] [address] [facility] ALPHA-1 GLOBULIN(SO-PB-STL) 0.3 g/dL 0.2 -0.3 ALPHA-2 GLOBULIN(SO-PB-STL) 0.8 g/dL 0.5 -0.9 BETA 1 GLOBULIN(SO-PB-STL) 0.4 g/dL 0.4- 0.6 GAMMA GLOBULIN (SO-PB-STL) 2.0 g/dL H 0.8- 1.7 TOTAL PROTEIN (SO-PB-STL) 7.9 g/dL 6.1-8 .1 ALBUMIN(ELECTROPHORESIS 4.1 g/dL 3.8-4.8 BETA 2 GLOBULIN (SO-PB) 0.3 g/dL 0.2-0.5 INTERPRETATION (STL-PB) SEE NOTE ABNORMAL PROTEIN BAND 1 (SO-PB-STL) 1.2 g/dL H May 11, 2024 02:19 PM [facility] IGA (STL) PLASMA Specimen Type: PLASM A Comment: No hemolysis noted. Ordering Provider: TONY SIMMONS Report Released Date/Time: Jan 05, 2024 02:08 PM Reporting Lab: [address] [address] Performing Lab: [address] [address] IGA (STL) 117 mg/dL 63-484 May 11, 2024 02:19 PM [facility] IGM (STL) PLASMA Specimen Type: PLASM A Comment: No hemolysis noted. Ordering Provider: TONY SIMMONS Report Released Date/Time: Jan 05, 2024 02:08 PM Reporting Lab: [place] [address] [facility] [address] Performing Lab: [facility] [address] [facility] [address] IGM (STL) 117 mg/dL 22-240 May 11, 2024 02:19 PM [facility] IGG (STL) PLASMA Specimen Type: PLASM A Comment: No hemolysis noted. Ordering Provider: TONY SIMMONS Report Released Date/Time: Jan 05, 2024 02:08 PM Reporting Lab: [place] [address] [facility] [address] Performing Lab: [place] [address] [facility] [address] IGG (STL) 2162 mg/dL H 540-1822 May 11, 2024 02:19 PM [facility] KAPPA/LAMBDA FREE LC PANEL (STL-PB) SERUM Spe cimen Type: SERUM No comment entered. Ordering Provider: TONY SIMMONS Report Released Date/Time: Jan 05, 2024 02:08 PM Reporting Lab: [place] [address] [facility] [address] Performing Lab: [address] [address] KAPPA FREE LC (STL) 92.4 mg/L H 2.4-20.7 LAMBDA FREE LC (STL) 25.6 mg/L 4.2-27.7 KAPPA/LAMBDA RATIO (STL) 3.61 H 0.22-1. 74 May 11, 2024 02:19 PM [facility] MAGNESIUM PLASMA Specimen Type: PLASM A Comment: No hemolysis noted. Ordering Provider: TONY SIMMONS Report Released Date/Time: Jan 05, 2024 02:09 PM Reporting Lab: [facility] [address] [facility] [address] Performing Lab: [facility] [address] [facility] [address] MAGNESIUM 1.9 mg/dL 1.6-2.6 May 11, 2024 02:19 PM [facility] PHOSPHOROUS PLASMA Specimen Type: PLASM A Comment: No hemolysis noted. Ordering Provider: TONY SIMMONS Report Released Date/Time: Jan 05, 2024 02:09 PM Reporting Lab: [facility] [address] [place] [address] Performing Lab: [address] [address] PHOSPHOROUS 2.5 mg/dL 2.3-4.7 May 11, 2024 02:19 PM [facility] COMPREHENSIVE METABOLIC PANEL PLASMA Specimen Type: PLASMA Comment: No hemolysis noted. Ordering Provider: TONY SIMMONS Report Released Date/Time: Jan 05, 2024 02:08 PM Reporting Lab: [address] [address] Performing Lab: [address] [address] CREATININE 1.04 mg/dL 0.7-1.3 UREA NITROGEN 19.6 [...] 78.7 >60 May 11, 2024 02:19 PM [facility] CBC BLOOD Specimen Type: BLOOD No comment entered. Ordering Provider: TONY SIMMONS Report Released Date/Time: Jan 05, 2024 02:08 PM Reporting Lab: [facility] [address] [place] [address] Performing Lab: [address] [address] WBC 4.5 10*3/uL 3.6-11.2 RBC 4.26 10*6/uL [...] 10*3/uL 2.10-8.00 Apr 23, 2024 11:26 AM [facility] GLUCOSE,BLOOD-poct (STL) BLOOD Specimen Type: BLOOD Comment: Test Performed by: [id number] Meter #: [id number] Ordering Provider: SUKHJINDER CHAHAL Report Released Date/Time: Apr 23, 2024 11:43 AM Reporting Lab: [place] [id number] [facility] [address] Performing Lab: [address] [address] GLUCOSE,BLOOD-poct (STL) 117 mg/dL H 72-99 Social History: Smoking Status (Most current) and Tobacco Use (All prior to encounter date) This section includes the most current, and the historical, smoking and tobacco- related health factors from the [place] facility where the Encounter took place. Current Smoking Status This section includes the most current smoking, or tobacco-related health factor, from the [place] facility where the Encounter took place. Date/Time Current Smoking Status Comment Facil ity Jan 20, 2023 03:49 PM VA-TOBACCO FORMER USER [facility] Tobacco Use History This section includes a history of the smoking, or tobacco-related health factors, that were collected on or before the date of the Encounter. The data comes from the [place] facility where the Encounter took place. Date/Time Smoking Status/Tobacco Use Comment F acility Jan 20, 2023 03:49 PM VA-TOBACCO QUIT 15 YRS OR MORE [facility] Feb 06, 2021 04:28 PM VA-TOBACCO FORMER USER [facility] Feb 06, 2021 04:28 PM VA-TOBACCO QUIT 15 YRS OR MORE [facility] Radiology Reports: +/- 30 days [...] the Encounter. The data comes from all [place] treatment facilities. 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 Report: PATIENT NAME: ABRAHAM HAWK. CASE #: [id number], [id number]. PROCEDURE: PET/CT study from the vertex to [...] lytic osseous lesion is noted within the nkygl-av-kuow. Multilevel degenerative changes are noted throughout the [...] warranted. DIAGNOSTIC CODE: 1001 Dictated by Alcides Leiaj MD (PET/CT fellow). I, Romana Parish, have reviewed the images and report and concur with these findings. Primary Diagnostic Code: SIGNIFICANT ABNORMALITY, ATTN NEEDED Primary Interpreting Staff: ROMANA PARISH M.D., STAFF PHYSICIAN - DIAGNOSTIC IMAGING (Cardiology Manager) /PFT BALDO PARISHARD R [facility] Encounter Notes: All associated encounter notes This section contains the clinical notes associated to the Encounter. Date/Time Encounter Note(s) Provider Source Apr 19, 2024 01:00 PM NONVA NOTE: LOCAL TITLE: COMMUNITY CARE-REQUEST FOR SERVICE NOTE STL STANDARD TITLE: NONVA NOTE DATE OF NOTE: APR 19, 2024@13:00 ENTRY DATE: APR 19, 2024@13:00:52 AUTHOR: DION RAMIREZ EXP COSIGNER: URGENCY: STATUS: COMPLETED COMMUNITY CARE-REQUEST FOR SERVICE NOTE STL Has ADDENDA RFS recv'd for continuation of care with DR. Long BROOKS [facility] p. [phone] fx. [phone] dx K74.60 [place] do not have a Community [facility]- GI consult to attach RFS too. /loly/ DION RAMIREZ RN REGISTERED NURSE Signed: 04/19/2024 13:06 Receipt Acknowledged By: 04/23/2024 08:38 /loly/ AMY PA-[place] NURSE PRACTITIONER 04/20/2024 14:33 /loly/ Danielle Ortega PA-C Physician Roller Bearing Inspector - Gastroenterology 04/20/2024 ADDENDUM STATUS: COMPLETED Pt presently not a transplant candidate (will confirm with [facility]) can resume care at [facility] for cirrhosis/HCC. Will enter comm care to cover his 03/18/24 visit. Care will resume at [facility]. /loly/ Danielle Ortega PA-C Physician Roller Bearing Inspector - Gastroenterology Signed: 04/20/2024 14:51 DION RAMIREZ [facility]
--- OUTSIDE RECORDS SUMMARY | 2024-10-08 17:10 | XMS_ITS | Encounter Summary ---
Author Name [facility] Organization [facility] [place] Address [address] [place] [address] Care Team Providers Care Cattle Examiner Name Role Phone SUKHJINDER CHAHAL Primary Care [...] SUPPL EMENT Nov 25, 2021 PLAN G [id number] [phone] ELLEN HAWK VID PATIENT AARP MED SUPP MEDIGAP PLAN G MEDIC ARE SUPPL EMENT Nov 25, 2021 PLAN G [id number] [phone] ELLEN HAWK VID PATIENT MEDICARE (WNR) MEDICARE (M) PART B Sep 25, 2021 PART B [id number] [phone] ELLEN HAWK VID PATIENT MEDICARE (WNR) MEDICARE (M) PART A Aug 25, 2021 PART A [id number] ELLEN HAWKD PATIENT Selected Encounter This section includes the information on record at [place] for the Encounter. Date/Time Encounter Type Encounter Description Reason Provider Source Aug 11, 2024 11:04 AM OFFICE O/P EST LOW 20 MIN NON-OR ANESTHESIA PROCEDURES ICD-10-CM Z01.818 Encounter for other preprocedural examination LIANGBERNADETTE Reg [facility] Encounter Template Text not used by ME Assessments - Encounter Diagnoses This section includes the primary and secondary diagnoses documented for the Encounter. Date/Time Primary/Secondary Diagnosis Diagnosis Name Provider Source Aug 11, 2024 11:12 AM PRIMARY Encounter for other preprocedural examination BERNADETTE TAVERA [facility] Aug 11, 2024 11:12 AM SECONDARY Encounter for other specified surgical aftercare BERNADETTE TAVERA [facility] Plan of Treatment: Future Appointments (+ 6 months) and Future Tests (+/- 45 days) The Plan of Treatment section includes future care activities for the [facility] [place] [facility]. This section includes future appointments and future [...] 16, 2024 10:00 AM AMBULATORY - MEDICINE [facility] Aug 17, 2024 08:30 AM AMBULATORY - MEDICINE [facility] Aug 17, 2024 09:00 AM AMBULATORY - MEDICINE [facility] Aug 17, 2024 09:30 AM AMBULATORY - MEDICINE [facility] Aug 23, 2024 12:00 PM AMBULATORY - NONE [facility] Aug 31, 2024 02:00 PM AMBULATORY - MEDICINE [facility] Sep 07, 2024 11:00 AM AMBULATORY - MEDICINE [facility] Sep 07, 2024 01:00 PM AMBULATORY - MEDICINE [facility] Oct 15, 2024 03:00 PM AMBULATORY - SURGERY . [facility] Oct 19, 2024 02:00 PM AMBULATORY - NONE [facility] Active, Pending, and Scheduled Orders This section includes a listing of several types of active, pending, and scheduled orders, including clinic medications orders, diagnostic test orders, procedure orders and consult orders; where the start date of the order is 45 days before the date of the Encounter or 45 days after the date of theEncounter. The data comes from all [facility]. Test Date/Time Test Type Test Details Facility Name Jul 17, 2024 12:00 AM Laboratory - Blood Bank Order FRESH FROZEN PLASMA - LAB VBECS - NO SPECIMEN REQUIRED [facility] Jul 17, 2024 12:00 AM Laboratory - Blood Bank Order RED BLOOD CELLS - LAB VBECS - NO SPECIMEN REQUIRED [facility] Jul 17, 2024 06:13 PM Laboratory - Blood Bank Order TYPE & SCREEN - LAB BLOOD [facility] Jul 17, 2024 06:13 PM Laboratory - Blood Bank Order DIRECT ANTIGLOBULIN TEST - LAB BLOOD STAT [facility] Jul 18, 2024 12:00 AM Laboratory - Blood Bank Order PLATELETS - LAB VBECS - NO SPECIMEN REQUIRED [facility] Aug 10, 2024 12:00 AM Laboratory - Blood Bank Order RED BLOOD CELLS - LAB VBECS - NO SPECIMEN [facility]QU[facility] Aug 10, 2024 02:00 PM Laboratory - Blood Bank Order TYPE & SCREEN - LAB BLOOD [facility] Aug 10, 2024 05:43 PM Laboratory - Chemistry Order LIPASE GREEN LI/HEP BLD/PLAS PLASMA STAT I ONCE [facility] Aug 10, 2024 05:44 PM Laboratory - Microbiology Order BLOOD CULT (SET 2) B D BLD. BOTTLE (SET 2) BLOOD JOANN I NOW [facility] Aug 11, 2024 02:00 AM Laboratory - Chemistry Order CBC BLOOD [facility] Aug 14, 2024 02:00 AM Laboratory - Chemistry Order CBC BLOOD [facility] Aug 15, 2024 02:00 AM Laboratory - Chemistry Order CBC BLOOD [facility] Aug 16, 2024 12:00 AM Laboratory - Chemistry Order CBC BLOOD [facility] Aug 16, 2024 08:00 PM Laboratory - Chemistry Order CBC BLOOD [facility] Aug 17, 2024 08:00 PM Laboratory - Chemistry Order CBC BLOOD [facility] Lab Results: +/- 30 days [...] Type Comment Sep 07, 2024 12:39 PM [facility] COMPREHENSIVE METABOLIC PANEL PLASMA Specimen Type: PLASMA Comment: No hemolysis noted. Ordering Provider: TONY SIMMONS Report Released Date/Time: Aug 31, 2024 02:42 PM Reporting Lab: [address] [address] Performing Lab: [address] [address] CREATININE 0.87 mg/dL 0.7-1.3 UREA NITROGEN 24.5 [...] 94.0 >60 Sep 07, 2024 12:39 PM [facility] CBC BLOOD Specimen Type: BLOOD No comment entered. Ordering Provider: TONY SIMMONS Report Released Date/Time: Aug 31, 2024 02:42 PM Reporting Lab: [address] [address] Performing Lab: [place] [address] [address] WBC 5.1 10*3/uL 3.6-11.2 RBC 3.44 10*6/uL [...] 10*3/uL 2.10-8.00 Sep 07, 2024 12:39 PM [facility] ALPHA-FETOPROTEIN(STL-PB) SERUM Specimen Type : SERUM No comment entered. Ordering Provider: DANIELLE ORTEGA Report Released Date/Time: Sep 07, 2024 11:59 AM Reporting Lab: [address] [address] Performing Lab: [address] [address] ALPHA-FETOPROTEIN(STL-PB) 15.01 ng/mL H 1- 8.78 Aug 31, 2024 02:04 PM [facility] COMPREHENSIVE METABOLIC PANEL PLASMA Specimen Type: PLASMA Comment: No hemolysis noted. Ordering Provider: TONY SIMMONS Report Released Date/Time: Aug 27, 2024 12:35 PM Reporting Lab: [address] [address] Performing Lab: [place] [address] [facility] [address] CREATININE 0.90 mg/dL 0.7-1.3 UREA NITROGEN 26.4 [...] 93.6 >60 Aug 31, 2024 02:04 PM [facility] CBC BLOOD Specimen Type: BLOOD No comment entered. Ordering Provider: TONY SIMMONS Report Released Date/Time: Aug 27, 2024 12:35 PM Reporting Lab: [address] [address] Performing Lab: [address] [address] WBC 4.7 10*3/uL 3.6-11.2 RBC 3.54 10*6/uL [...] 10*3/uL 2.10-8.00 Aug 17, 2024 03:34 PM [facility] TSH W/ REFLEX FT4 (STL) PLASMA Specimen Type: PLASMA No comment entered. Ordering Provider: TONY SIMMONS Report Released Date/Time: Aug 10, 2024 12:01 PM Reporting Lab: [place] [address] Performing Lab: [address] [address] TSH 4.570 u[IU]/mL 0.47-5 Aug 17, 2024 03:34 PM [facility] COMPREHENSIVE METABOLIC PANEL PLASMA Specimen Type: PLASMA Comment: No hemolysis noted. Ordering Provider: TONY SIMMONS Report Released Date/Time: Aug 10, 2024 12:01 PM Reporting Lab: [address] [address] Performing Lab: [address] [address] CREATININE 0.85 mg/dL 0.7-1.3 UREA NITROGEN 11.5 [...] 95.2 >60 Aug 17, 2024 03:34 PM [facility] CBC BLOOD Specimen Type: BLOOD Comment: No Clots Ordering Provider: TONY SIMMONS Report Released Date/Time: Aug 10, 2024 12:01 PM Reporting Lab: [facility] [address] [place] [address] Performing Lab: [address] [address] WBC 5.0 10*3/uL 3.6-11.2 RBC 2.83 10*6/uL [...] 4.9 1.0-7.0 Aug 15, 2024 07:20 AM [facility] CBC BLOOD Specimen Type: BLOOD Comment: No clots detected in specimen. Ordering Provider: CASH CLOUD Report Released Date/Time: Aug 12, 2024 01:47 PM Reporting Lab: [address] [address] Performing Lab: [address] [address] WBC 4.9 10*3/uL 3.6-11.2 RBC 2.93 10*6/uL [...] 10*3/uL 2.10-8.00 Aug 15, 2024 04:54 AM [facility] GLUCOSE,BLOOD-poct (STL) BLOOD Specimen Type: BLOOD Comment: Test Performed by: [id number] Meter #: [id number] Ordering Provider: DEIRDRE WILD Report Released Date/Time: Aug 15, 2024 05:21 AM Reporting Lab: [address] [address] Performing Lab: [address] [address] GLUCOSE,BLOOD-poct (STL) 112 mg/dL H 72-99 Aug 14, 2024 08:30 PM [facility] CRP PLASMA Specimen Type: PLASM A No comment entered. Ordering Provider: CASH CLOUD Report Released Date/Time: Aug 12, 2024 10:14 AM Reporting Lab: [address] [address] Performing Lab: [address] [place] [address] CRP 0.7 mg/dL H 0-0.5 Aug 14, 2024 08:30 PM [facility] CBC BLOOD Specimen Type: BLOOD No comment entered. Ordering Provider: GILSON OG Report Released Date/Time: Aug 10, 2024 04:01 PM Reporting Lab: [address] [address] Performing Lab: [address] [address] WBC 4.6 10*3/uL 3.6-11.2 RBC 2.83 10*6/uL [...] 10*3/uL 2.10-8.00 Aug 14, 2024 07:54 PM [facility] GLUCOSE,BLOOD-poct (STL) BLOOD Specimen Type: BLOOD Comment: Test Performed by: [id number] Meter #: [id number] Ordering Provider: DEIRDRE WILD Report Released Date/Time: Aug 14, 2024 08:15 PM Reporting Lab: [address] [address] Performing Lab: [facility] [address] [facility] [address] GLUCOSE,BLOOD-poct (STL) 112 mg/dL H 72-99 Aug 14, 2024 04:10 PM [facility] GLUCOSE,BLOOD-poct (STL) BLOOD Specimen Type: BLOOD Comment: Test Performed by: [id number] Meter #: [id number] Ordering Provider: DEIRDRE WILD Report Released Date/Time: Aug 14, 2024 04:43 PM Reporting Lab: [address] [address] Performing Lab: [address] [address] GLUCOSE,BLOOD-poct (STL) 115 mg/dL H 72-99 Aug 14, 2024 02:05 PM [facility] COMPREHENSIVE METABOLIC PANEL PLASMA Specimen Type: PLASMA Comment: No hemolysis noted. Ordering Provider: GILSON OG Report Released Date/Time: Aug 14, 2024 06:56 AM Reporting Lab: [address] [address] Performing Lab: [address] [address] CREATININE 0.75 mg/dL 0.7-1.3 UREA NITROGEN 9.3 [...] 98.9 >60 Aug 14, 2024 02:05 PM [facility] CBC BLOOD Specimen Type: BLOOD Comment: No platelet clots or clumping detected. Ordering Provider: GILSON OG Report Released Date/Time: Aug 10, 2024 04:01 PM Reporting Lab: [facility] [address] [facility] [address] Performing Lab: [facility] [address] [facility] [address] WBC 4.6 10*3/uL 3.6-11.2 RBC 3.06 10*6/uL [...] 10*3/uL 2.10-8.00 Aug 14, 2024 10:12 AM [facility] GLUCOSE,BLOOD-poct (L) BLOOD Specimen Type: BLOOD Comment: Test Performed by: [id number] Meter #: [id number] Ordering Provider: DEIRDRE WILD Report Released Date/Time: Aug 14, 2024 10:13 AM Reporting Lab: [place] [address] Performing Lab: [place] [address] GLUCOSE,BLOOD-poct ([facility]) 112 mg/dL H 72-99 Aug 14, 2024 09:20 AM [facility] PT/INR NEW (L-MA) PLASMA Specimen Type: PLAS MA No comment entered. Ordering Provider: GILSON OG Report Released Date/Time: Aug 14, 2024 09:06 AM Reporting Lab: [place] [address] Performing Lab: [place] [address] PROTIME 13.6 s H 9.4-12.5 INR VALUE 1.2 {INR} Aug 14, 2024 06:51 AM [facility] CBC BLOOD Specimen Type: BLOOD No comment entered. Ordering Provider: CASH CLOUD Report Released Date/Time: Aug 12, 2024 01:47 PM Reporting Lab: [place] [address] Performing Lab: [place] [address] WBC 3.8 10*3/uL 3.6-11.2 RBC 2.56 10*6/uL [...] 10*3/uL 2.10-8.00 Aug 14, 2024 06:03 AM [facility] GLUCOSE,BLOOD-poct (STL) BLOOD Specimen Type: BLOOD Comment: Test Performed by: [id number] Meter #: [id number] Ordering Provider: DEIRDRE WILD Report Released Date/Time: Aug 14, 2024 06:07 AM Reporting Lab: [address] [address] Performing Lab: [address] [address] GLUCOSE,BLOOD-poct (STL) 114 mg/dL H 72-99 Aug 13, 2024 09:11 PM [facility] GLUCOSE,BLOOD-poct (STL) BLOOD Specimen Type: BLOOD Comment: Test Performed by: [id number] Meter #: [id number] Ordering Provider: DEIRDRE WILD Report Released Date/Time: Aug 13, 2024 09:40 PM Reporting Lab: [address] [address] Performing Lab: [address] [address] GLUCOSE,BLOOD-poct (STL) 160 mg/dL H 72-99 Aug 13, 2024 07:10 PM [facility] COMPREHENSIVE METABOLIC PANEL PLASMA Specimen Type: PLASMA Comment: No hemolysis noted. Ordering Provider: GILSON OG Report Released Date/Time: Aug 14, 2024 07:03 AM Reporting Lab: [address] [address] Performing Lab: [address] [address] CREATININE 0.75 mg/dL 0.7-1.3 UREA NITROGEN 10.3 [...] 98.9 >60 Aug 13, 2024 07:10 PM [facility] CRP PLASMA Specimen Type: PLASM A No comment entered. Ordering Provider: CASH CLOUD Report Released Date/Time: Aug 12, 2024 10:14 AM Reporting Lab: [address] [address] Performing Lab: [address] [address] CRP 0.7 mg/dL H 0-0.5 Aug 13, 2024 07:10 PM [facility] CBC BLOOD Specimen Type: BLOOD No comment entered. Ordering Provider: GILSON OG Report Released Date/Time: Aug 10, 2024 04:01 PM Reporting Lab: [address] [address] Performing Lab: [address] [address] WBC 5.3 10*3/uL 3.6-11.2 RBC 2.67 10*6/uL [...] 10*3/uL 2.10-8.00 Aug 13, 2024 04:35 PM [facility] GLUCOSE,BLOOD-poct (STL) BLOOD Specimen Type: BLOOD Comment: Test Performed by: [id number] Meter #: [id number] Ordering Provider: DEIRDRE WILD Report Released Date/Time: Aug 13, 2024 05:18 PM Reporting Lab: [address] [address] Performing Lab: [address] [address] GLUCOSE,BLOOD-poct (STL) 113 mg/dL H 72-99 Aug 13, 2024 02:36 PM [facility] CBC BLOOD Specimen Type: BLOOD No comment entered. Ordering Provider: GILSON OG Report Released Date/Time: Aug 10, 2024 04:01 PM Reporting Lab: [address] [address] Performing Lab: [place] [address] [address] WBC 5.8 10*3/uL 3.6-11.2 RBC 2.77 10*6/uL [...] 10*3/uL 2.10-8.00 Aug 13, 2024 11:37 AM [facility] GLUCOSE,BLOOD-poct (STL) BLOOD Specimen Type: BLOOD Comment: Test Performed by: [id number] Meter #: [id number] Ordering Provider: DEIRDRE WILD Report Released Date/Time: Aug 13, 2024 11:38 AM Reporting Lab: [address] [address] Performing Lab: [address] [address] GLUCOSE,BLOOD-poct (STL) 131 mg/dL H 72-99 Aug 13, 2024 08:06 AM [facility] CBC BLOOD Specimen Type: BLOOD Comment: no clot Ordering Provider: CASH CLOUD Report Released Date/Time: Aug 12, 2024 01:47 PM Reporting Lab: [address] [address] Performing Lab: [address] [address] WBC 3.0 10*3/uL L 3.6-11.2 RBC 2.61 [...] 10*3/uL 2.10-8.00 Aug 13, 2024 04:45 AM [facility] GLUCOSE,BLOOD-poct (STL) BLOOD Specimen Type: BLOOD Comment: Test Performed by: [id number] Meter #: [id number] Ordering Provider: DEIRDRE WILD Report Released Date/Time: Aug 13, 2024 06:18 AM Reporting Lab: [address] [address] Performing Lab: [address] [address] GLUCOSE,BLOOD-poct (STL) 139 mg/dL H 72-99 Aug 12, 2024 10:10 PM [facility] GLUCOSE,BLOOD-poct (STL) BLOOD Specimen Type: BLOOD Comment: Test Performed by: [id number] Meter #: [id number] Ordering Provider: DEIRDRE WILD Report Released Date/Time: Aug 12, 2024 10:50 PM Reporting Lab: [address] [address] Performing Lab: [address] [address] GLUCOSE,BLOOD-poct (L) 105 mg/dL H 72-Aug 12, 2024 08:48 PM [facility] CBC BLOOD Specimen Type: BLOOD Comment: SEE PREVIOUS DIFFERENTIAL ON 08/12/24 @ 1807 Ordering Provider: GILSON OG Report Released Date/Time: Aug 10, 2024 04:01 PM Reporting Lab: [address] [address] Performing Lab: [address] [address] WBC 5.0 10*3/uL 3.6-11.2 RBC 2.78 10*6/uL [...] 6.5 1.0-7.0 Aug 12, 2024 08:48 PM [facility] CRP PLASMA Specimen Type: PLASM A No comment entered. Ordering Provider: CASH CLOUD Report Released Date/Time: Aug 12, 2024 10:14 AM Reporting Lab: [address] [address] Performing Lab: [address] [address] CRP 0.6 mg/dL H 0-0.5 Aug 12, 2024 04:51 PM [facility] GLUCOSE,BLOOD-poct (STL) BLOOD Specimen Type: BLOOD Comment: Test Performed by: [id number] Meter #: [id number] Ordering Provider: DEIRDRE WILD Report Released Date/Time: Aug 12, 2024 05:07 PM Reporting Lab: [place] [address] [facility] [address] Performing Lab: [address] [address] GLUCOSE,BLOOD-poct (STL) 135 mg/dL H 72-99 Aug 12, 2024 02:33 PM [facility] CBC BLOOD Specimen Type: BLOOD No comment entered. Ordering Provider: GILSON OG Report Released Date/Time: Aug 10, 2024 04:01 PM Reporting Lab: [place] [address] [facility] [address] Performing Lab: [address] [address] WBC 4.0 10*3/uL 3.6-11.2 RBC 2.56 10*6/uL [...] 10*3/uL 2.10-8.00 Aug 12, 2024 11:51 AM [facility] GLUCOSE,BLOOD-poct (STL) BLOOD Specimen Type: BLOOD Comment: Test Performed by: [id number] Meter #: [id number] Ordering Provider: DEIRDRE WILD Report Released Date/Time: Aug 12, 2024 12:26 PM Reporting Lab: [address] [address] Performing Lab: [address] [address] GLUCOSE,BLOOD-poct (STL) 139 mg/dL H 72-99 Aug 12, 2024 07:35 AM [facility] CBC BLOOD Specimen Type: BLOOD Comment: prev diff 08/11/24. Ordering Provider: GILSON OG Report Released Date/Time: Aug 10, 2024 04:01 PM Reporting Lab: [address] [address] Performing Lab: [address] [address] WBC 3.0 10*3/uL L 3.6-11.2 RBC 2.54 [...] 0.00-0. 20 Aug 12, 2024 05:49 AM [facility] GLUCOSE,BLOOD-poct (STL) BLOOD Specimen Type: BLOOD Comment: Test Performed by: [id number] Meter #: [id number] Ordering Provider: DEIRDRE WILD Report Released Date/Time: Aug 12, 2024 05:50 AM Reporting Lab: [address] [address] Performing Lab: [address] [address] GLUCOSE,BLOOD-poct (STL) 112 mg/dL H 72-99 Aug 12, 2024 01:45 AM [facility] CBC BLOOD Specimen Type: BLOOD Comment: SEE PREVIOUS DIFFERENTIAL ON 08/12/24 @ 0239 [facility] Ordering Provider: GILSON OG Report Released Date/Time: Aug 10, 2024 04:01 PM Reporting Lab: [address] [address] Performing Lab: [address] [address] WBC 2.6 10*3/uL L 3.6-11.2 RBC 2.42 [...] 6.4 1.0-7.0 Aug 11, 2024 09:25 PM [facility] CBC BLOOD Specimen Type: BLOOD No comment entered. Ordering Provider: GILSON OG Report Released Date/Time: Aug 10, 2024 04:01 PM Reporting Lab: [address] [address] Performing Lab: [address] [address] WBC 3.6 10*3/uL 3.6-11.2 RBC 2.54 10*6/uL [...] 10*3/uL 2.10-8.00 Aug 11, 2024 09:17 PM [facility] GLUCOSE,BLOOD-poct (STL) BLOOD Specimen Type: BLOOD Comment: Test Performed by: [id number] Meter #: [id number] Ordering Provider: DEIRDRE WILD Report Released Date/Time: Aug 11, 2024 09:21 PM Reporting Lab: [address] [address] Performing Lab: [address] [address] GLUCOSE,BLOOD-poct (STL) 167 mg/dL H 72-99 Aug 11, 2024 04:42 PM [facility] CBC BLOOD Specimen Type: BLOOD No comment entered. Ordering Provider: YVONNE HARRISON Report Released Date/Time: Aug 11, 2024 04:41 PM Reporting Lab: [address] [address] Performing Lab: [address] [address] WBC 4.0 10*3/uL 3.6-11.2 RBC 2.74 10*6/uL [...] 10*3/uL 2.10-8.00 Aug 11, 2024 04:30 PM [facility] GLUCOSE,BLOOD-poct (STL) BLOOD Specimen Type: BLOOD Comment: Test Performed by: [id number] Meter #: [id number] Ordering Provider: DEIRDRE WILD Report Released Date/Time: Aug 11, 2024 06:06 PM Reporting Lab: [address] [address] Performing Lab: [address] [address] GLUCOSE,BLOOD-poct (STL) 95 mg/dL -99 Aug 11, 2024 11:08 AM [facility] GLUCOSE,BLOOD-poct (STL) BLOOD Specimen Type: BLOOD Comment: Test Performed by: [id number] Meter #: [id number] Ordering Provider: DEIRDRE WILD Report Released Date/Time: Aug 11, 2024 11:10 AM Reporting Lab: [address] [address] Performing Lab: [address] [address] GLUCOSE,BLOOD-poct (STL) 117 mg/dL H 72-99 Aug 11, 2024 06:00 AM [facility] HEPATIC FUNTION PANEL (STL) PLASMA Specimen Ty pe: PLASMA No comment entered. Ordering Provider: GILSON OG Report Released Date/Time: Aug 10, 2024 04:02 PM Reporting Lab: [address] [address] Performing Lab: [address] [address] PROTEIN 5.4 g/dL L 6-8.6 ALBUMIN 2.6 g/dL L 3.4-5 TOTAL BILIRUBIN 0.8 mg/dL 0.2-1.2 ALKALINE PHOSPHATASE 72 U/L 40-150 AST/SGOT 28 U/L 5-34 ALT/SGPT 10 U/L 8-40 CONJ. BILIRUBIN 0.4 mg/dL 0-0.5 Aug 11, 2024 06:00 AM [facility] IRON/TIBC PROFILE SERUM Specimen Type: SERUM No comment entered. Ordering Provider: GILSON OG Report Released Date/Time: Aug 10, 2024 04:02 PM Reporting Lab: [address] [address] Performing Lab: [address] [address] TIBC 263 ug/dL 250-450 TRANSFERRIN 210 mg/dL 163-344 IRON SATURATION 8 L 20-50 IRON 21 ug/dL L 65-175 Aug 11, 2024 06:00 AM [facility] PT/INR NEW (STL-MA) PLASMA Specimen Type: PLAS MA No comment entered. Ordering Provider: GILSON OG Report Released Date/Time: Aug 10, 2024 06:20 PM Reporting Lab: [address] [address] Performing Lab: [address] [address] PROTIME 15.5 s H 9.4-12.5 INR VALUE 1.4 {INR} Aug 11, 2024 06:00 AM [facility] APTT PLASMA Specimen Type: PLASM A No comment entered. Ordering Provider: GILSON OG Report Released Date/Time: Aug 10, 2024 06:20 PM Reporting Lab: [address] [place] [address] Performing Lab: [place] [address] [facility] [address] APTT 25.5 s L 26.7-39.9 Aug 11, 2024 06:00 AM [facility] CBC BLOOD Specimen Type: BLOOD No comment entered. Ordering Provider: GILSON OG Report Released Date/Time: Aug 10, 2024 04:01 PM Reporting Lab: [place] [address] [facility] [address] Performing Lab: [place] [address] [facility] [address] WBC 2.4 10*3/uL L 3.6-11.2 RBC 2.42 [...] L 2.10-8.00 Aug 10, 2024 09:00 PM [facility] BASIC METABOLIC PANEL PLASMA Specimen Type: PL ASMA Comment: No hemolysis noted. Ordering Provider: GILSON OG Report Released Date/Time: Aug 10, 2024 04:01 PM Reporting Lab: [address] [address] Performing Lab: [address] [address] CREATININE 0.84 mg/dL 0.7-1.3 UREA NITROGEN 16.8 mg/dL 9.0-25.0 GLUCOSE 104 mg/dL H 72-99 SODIUM 133 meq/L L 136-145 POTASSIUM 3.5 meq/L 3.5-5 CHLORIDE 103 meq/L 98-107 CARBON DIOXIDE 23 meq/L 22-31 CALCIUM 8.4 mg/dL 8.4-10.4 EGFR (CKD-EPI 2020) 95.6 >60 Aug 10, 2024 09:00 PM [facility] CBC BLOOD Specimen Type: BLOOD No comment entered. Ordering Provider: GILSON OG Report Released Date/Time: Aug 10, 2024 04:01 PM Reporting Lab: [address] [address] Performing Lab: [address] [address] WBC 4.3 10*3/uL 3.6-11.2 RBC 2.22 10*6/uL [...] 10*3/uL 2.10-8.00 Aug 10, 2024 06:30 PM [facility] MRSA SURVL NARES DNA NARES Specimen Type: [...] Aug 10, 2024 04:01 PM Reporting Lab: [address] [address] Performing Lab: [address] [address] MRSA SURVL NARES DNA Negative Negative Aug 10, 2024 06:02 PM [facility] GLUCOSE,BLOOD-poct (STL) BLOOD Specimen Type: BLOOD Comment: Test Performed by: [id number] Meter #: [id number] Ordering Provider: YASIR SANZ MD Report Released Date/Time: Aug 10, 2024 06:04 PM Reporting Lab: [place] [id number] [facility] [address] Performing Lab: [address] [address] GLUCOSE,BLOOD-poct (STL) 94 mg/dL 72-99 Aug 10, 2024 02:12 PM [facility] PT/INR NEW (STL-MA) PLASMA Specimen Type: PLAS MA No comment entered. Ordering Provider: YASIR SANZ MD Report Released Date/Time: Aug 10, 2024 02:00 PM Reporting Lab: [address] [address] Performing Lab: [address] [address] PROTIME 13.8 s H 9.4-12.5 INR VALUE 1.2 {INR} Aug 10, 2024 02:12 PM [facility] APTT PLASMA Specimen Type: PLASM A No comment entered. Ordering Provider: YASIR SANZ MD Report Released Date/Time: Aug 10, 2024 02:00 PM Reporting Lab: [address] [address] Performing Lab: [address] [address] APTT 20.1 s L 26.7-39.9 Aug 10, 2024 11:30 AM [facility] TSH W/ REFLEX FT4 (STL) PLASMA Specimen Type: PLASMA No comment entered. Ordering Provider: TONY SIMMONS Report Released Date/Time: Aug 02, 2024 12:33 PM Reporting Lab: [address] [address] Performing Lab: [address] [address] TSH 3.991 u[IU]/mL 0.47-5 Aug 10, 2024 11:30 AM [facility] COMPREHENSIVE METABOLIC PANEL PLASMA Specimen Type: PLASMA Comment: No hemolysis noted. Ordering Provider: TONY SIMMONS Report Released Date/Time: Aug 02, 2024 12:33 PM Reporting Lab: [address] [address] Performing Lab: [address] [address] CREATININE 0.82 mg/dL 0.7-1.3 UREA NITROGEN 21.7 [...] 96.3 >60 Aug 10, 2024 11:30 AM [facility] CBC BLOOD Specimen Type: BLOOD No comment entered. Ordering Provider: TONY SIMMONS Report Released Date/Time: Aug 02, 2024 12:33 PM Reporting Lab: [address] [address] Performing Lab: [address] [address] WBC 7.4 10*3/uL 3.6-11.2 RBC 2.81 10*6/uL [...] 0.00-0. 20 Aug 02, 2024 11:53 AM [facility] PROTEIN ELECTROPHORESIS BLOOD SERUM Specimen Type: SERUM Comment: Reference Range: None Detected NOTE: THIS RESULT IS FLAGGED ABNORMAL Evaluation reveals a restricted band (M-spike) migrating in the gamma globulin region. If not already requested, Immunofixation should be considered. Test Performed by [facility], [facility], [address] [place] [address] Tristin Iyer M.D., Ph.D., Director of Laboratories , CLIA [id number] PREVIOUS SUGAR: IgG [place] Ordering Provider: TONY SIMMONS Report Released Date/Time: Jul 13, 2024 01:49 PM Reporting Lab: [address] [address] Performing Lab: [facility] [address] [facility] ALPHA-1 GLOBULIN(SO-PB-STL) 0.4 g/dL H 0.2 [...] g/dL H Aug 02, 2024 11:53 AM [facility] IGA (STL) PLASMA Specimen Type: PLASM A Comment: No hemolysis noted. Ordering Provider: TONY SIMMONS Report Released Date/Time: Jul 13, 2024 01:49 PM Reporting Lab: [address] [address] Performing Lab: [facility] [address] [facility] [address] IGA (STL) 113 mg/dL 63-484 Aug 02, 2024 11:53 AM [facility] IGM (STL) PLASMA Specimen Type: PLASM A Comment: No hemolysis noted. Ordering Provider: TONY SIMMONS Report Released Date/Time: Jul 13, 2024 01:49 PM Reporting Lab: [place] [address] [address] [facility] [address] Performing Lab: [place] [address] [facility] [address] IGM (STL) 104 mg/dL 22-240 Aug 02, 2024 11:53 AM [facility] IGG (STL) PLASMA Specimen Type: PLASM A Comment: No hemolysis noted. Ordering Provider: TONY SIMMONS Report Released Date/Time: Jul 13, 2024 01:49 PM Reporting Lab: [place] [address] [facility] [address] Performing Lab: [place] [address] [facility] [address] IGG (STL) 1898 mg/dL H 540-1822 Aug 02, 2024 11:53 AM [facility] TSH W/ REFLEX FT4 (STL) PLASMA Specimen Type: PLASMA No comment entered. Ordering Provider: TONY SIMMONS Report Released Date/Time: Jul 13, 2024 01:49 PM Reporting Lab: [place] [address] [facility] [address] Performing Lab: [place] [address] [facility] [address] TSH 2.182 u[IU]/mL 0.47-5 Aug 02, 2024 11:53 AM [facility] KAPPA/LAMBDA FREE LC PANEL (STL-PB) SERUM Spe cimen Type: SERUM No comment entered. Ordering Provider: TONY SIMMONS Report Released Date/Time: Jul 13, 2024 01:49 PM Reporting Lab: [address] [place] [address] Performing Lab: [address] [address] KAPPA FREE LC (STL) 102.7 mg/L H 2.4-20.7 LAMBDA FREE LC (STL) 32.2 mg/L H 4.2-27.7 KAPPA/LAMBDA RATIO (STL) 3.19 H 0.22-1. 74 Aug 02, 2024 11:53 AM [facility] COMPREHENSIVE METABOLIC PANEL PLASMA Specimen Type: PLASMA Comment: No hemolysis noted. Ordering Provider: TONY SIMMONS Report Released Date/Time: Jul 13, 2024 01:49 PM Reporting Lab: [address] [address] Performing Lab: [address] [address] CREATININE 0.82 mg/dL 0.7-1.3 UREA NITROGEN 12.2 [...] 96.3 >60 Aug 02, 2024 11:53 AM [facility] CBC BLOOD Specimen Type: BLOOD Comment: No Clots in specimen Ordering Provider: TONY SIMMONS Report Released Date/Time: Jul 13, 2024 01:49 PM Reporting Lab: [address] [address] Performing Lab: [address] [address] WBC 2.2 10*3/uL L 3.6-11.2 RBC 3.44 [...] L 2.10-8.00 Aug 01, 2024 10:10 AM [facility] GLUCOSE,BLOOD-poct (STL) BLOOD Specimen Type: BLOOD Comment: Test Performed by: [id number] Meter #: [id number] Ordering Provider: SUKHJINDER CHAHAL Report Released Date/Time: Aug 01, 2024 10:17 AM Reporting Lab: [facility] [address] [facility] [address] Performing Lab: [facility] [address] [facility] [address] GLUCOSE,BLOOD-poct (STL) 101 mg/dL H 72-99 Jul 27, 2024 01:54 PM [facility] TROPONIN I PLASMA Specimen Type: PLASM A Comment: No hemolysis noted. Ordering Provider: ELIZABETH COATES Report Released Date/Time: Jul 27, 2024 03:39 PM Reporting Lab: [facility] [address] [facility] [address] Performing Lab: [address] [address] TROPONIN I 0.011 ng/mL 0-0.033 Jul 27, 2024 01:54 PM [facility] BRAIN NATRIURETIC PEPTIDE PLASMA Specimen Type : PLASMA No comment entered. Ordering Provider: ELIZABETH COATES Report Released Date/Time: Jul 27, 2024 03:39 PM Reporting Lab: [address] [address] Performing Lab: [address] [address] BRAIN NATRIURETIC PEPTIDE 257.2 pg/mL H 0- 100 Jul 27, 2024 01:54 PM [facility] COMPREHENSIVE METABOLIC PANEL PLASMA Specimen Type: PLASMA Comment: No hemolysis noted. Ordering Provider: ELIZABETH COATES Report Released Date/Time: Jul 27, 2024 03:39 PM Reporting Lab: [address] [address] Performing Lab: [address] [address] CREATININE 0.70 mg/dL 0.7-1.3 UREA NITROGEN 7.4 [...] 101.0 >60 Jul 27, 2024 01:54 PM [facility] CBC BLOOD Specimen Type: BLOOD No comment entered. Ordering Provider: ELIZABETH COATES Report Released Date/Time: Jul 27, 2024 03:39 PM Reporting Lab: [facility] [address] [facility] [address] Performing Lab: [place] [address] [facility] [address] WBC 3.2 10*3/uL L 3.6-11.2 RBC 3.12 [...] 10*3/uL 2.10-8.00 Jul 21, 2024 02:00 PM [facility] FOLATE (STL-MA) SERUM Specimen Type: SERUM No comment entered. Ordering Provider: JORJE DENSON Report Released Date/Time: Jul 21, 2024 12:54 PM Reporting Lab: [facility] [address] [facility] [address] Performing Lab: [place] [address] [facility] [address] FOLATE (STL-MA) 9.1 ng/mL 7-20 Jul 21, 2024 02:00 PM [facility] IRON/TIBC PROFILE SERUM Specimen Type: SERUM No comment entered. Ordering Provider: JORJE DENSON Report Released Date/Time: Jul 21, 2024 12:54 PM Reporting Lab: [address] [address] Performing Lab: [address] [address] TIBC 243 ug/dL L 250-450 TRANSFERRIN 194 mg/dL 163-344 IRON SATURATION 20 20-50 IRON 49 ug/dL L 65-175 Jul 21, 2024 02:00 PM [facility] B12 SERUM Specimen Type: SERUM No comment entered. Ordering Provider: JORJE DENSON Report Released Date/Time: Jul 21, 2024 12:54 PM Reporting Lab: [address] [address] Performing Lab: [address] [address] B12 1584 pg/mL H 213-816 Jul 21, 2024 02:00 PM [facility] CBC BLOOD Specimen Type: BLOOD Comment: Manual differential performed 07/20/2024 No clots Ordering Provider: JORJE DENSON Report Released Date/Time: Jul 21, 2024 12:54 PM Reporting Lab: [address] [address] Performing Lab: [address] [address] WBC 5.6 10*3/uL 3.6-11.2 RBC 2.87 10*6/uL [...] H 1.0-7.0 Jul 20, 2024 08:55 PM [facility] PT/INR NEW (STL-MA) PLASMA Specimen Type: PLAS MA No comment entered. Ordering Provider: AURA ZACARIAS Report Released Date/Time: Jul 18, 2024 01:30 PM Reporting Lab: [address] [address] Performing Lab: [address] [address] PROTIME 12.8 s H 9.4-12.5 INR VALUE 1.1 {INR} Jul 20, 2024 08:55 PM [facility] BASIC METABOLIC PANEL PLASMA Specimen Type: PL ASMA Comment: No hemolysis noted. Ordering Provider: AURA ZACARIAS Report Released Date/Time: Jul 18, 2024 01:30 PM Reporting Lab: [place] [address] [facility] [address] Performing Lab: [address] [address] CREATININE 0.74 mg/dL 0.7-1.3 UREA NITROGEN 15.1 mg/dL 9.0-25.0 GLUCOSE 121 mg/dL H 72-99 SODIUM 130 meq/L L 136-145 POTASSIUM 3.7 meq/L 3.5-5 CHLORIDE 100 meq/L 98-107 CARBON DIOXIDE 20 meq/L L 22-31 CALCIUM 8.5 mg/dL 8.4-10.4 EGFR (CKD-EPI 2020) 99.3 >60 Jul 20, 2024 08:55 PM [facility] CBC BLOOD Specimen Type: BLOOD No comment entered. Ordering Provider: AURA ZACARIAS Report Released Date/Time: Jul 18, 2024 01:30 PM Reporting Lab: [address] [address] Performing Lab: [address] [address] WBC 5.1 10*3/uL 3.6-11.2 RBC 2.90 10*6/uL [...] 10*3/uL 2.10-8.00 Jul 20, 2024 01:13 PM [facility] CBC BLOOD Specimen Type: BLOOD No comment entered. Ordering Provider: AURA ZACARIAS Report Released Date/Time: Jul 18, 2024 01:30 PM Reporting Lab: [address] [address] Performing Lab: [facility] [address] WBC 5.6 10*3/uL 3.6-11.2 RBC 3.11 10*6/uL [...] 10*3/uL 2.10-8.00 Jul 19, 2024 06:42 AM [facility] PT/INR NEW (STL-MA) PLASMA Specimen Type: PLAS MA No comment entered. Ordering Provider: AURA ZACARIAS Report Released Date/Time: Jul 18, 2024 01:30 PM Reporting Lab: [facility] [address] [place] [address] Performing Lab: [address] [address] PROTIME 16.4 s H 9.4-12.5 INR VALUE 1.5 {INR} Jul 19, 2024 06:42 AM [facility] BASIC METABOLIC PANEL PLASMA Specimen Type: PL ASMA Comment: No hemolysis noted. Ordering Provider: AURA ZACARIAS Report Released Date/Time: Jul 18, 2024 01:30 PM Reporting Lab: [address] [address] Performing Lab: [address] [address] CREATININE 0.94 mg/dL 0.7-1.3 UREA NITROGEN 23.8 mg/dL 9.0-25.0 GLUCOSE 87 mg/dL 72-99 SODIUM 129 meq/L L 136-145 POTASSIUM 3.4 meq/L L 3.5-5 CHLORIDE 102 meq/L 98-107 CARBON DIOXIDE 20 meq/L L 22-31 CALCIUM 8.1 mg/dL L 8.4-10.4 EGFR (CKD-EPI 2020) 88.9 >60 Jul 19, 2024 06:42 AM [facility] CBC BLOOD Specimen Type: BLOOD No comment entered. Ordering Provider: AURA ZACARIAS Report Released Date/Time: Jul 18, 2024 01:30 PM Reporting Lab: [address] [address] Performing Lab: [address] [address] WBC 5.1 10*3/uL 3.6-11.2 RBC 2.45 10*6/uL [...] H 1.0-7.0 Jul 18, 2024 08:51 PM [facility] CBC BLOOD Specimen Type: BLOOD No comment entered. Ordering Provider: AURA ZACARIAS Report Released Date/Time: Jul 18, 2024 01:30 PM Reporting Lab: [address] [address] Performing Lab: [address] [address] WBC 6.2 10*3/uL 3.6-11.2 RBC 2.44 10*6/uL [...] 10*3/uL 2.10-8.00 Jul 18, 2024 04:19 PM [facility] CBC BLOOD Specimen Type: BLOOD No comment entered. Ordering Provider: AURA ZACARIAS Report Released Date/Time: Jul 18, 2024 01:30 PM Reporting Lab: [address] [address] Performing Lab: [address] [address] WBC 6.1 10*3/uL 3.6-11.2 RBC 2.57 10*6/uL [...] 10*3/uL 2.10-8.00 Jul 18, 2024 06:32 AM [facility] LACTIC ACID (STL-PB) PLASMA Specimen Type: NEIL SMA No comment entered. Ordering Provider: CAMDEN PATTON Report Released Date/Time: Jul 17, 2024 07:38 PM Reporting Lab: [address] [address] Performing Lab: [address] [address] LACTIC ACID (STL-PB) 1.3 mmol/L 0.5-2.0 Jul 18, 2024 06:32 AM [facility] PT/INR NEW (STL-MA) PLASMA Specimen Type: PLAS MA No comment entered. Ordering Provider: CAMDEN PATTON Report Released Date/Time: Jul 17, 2024 07:38 PM Reporting Lab: [address] [address] Performing Lab: [address] [address] PROTIME 19.1 s H 9.4-12.5 INR VALUE 1.7 {INR} Jul 18, 2024 06:32 AM [facility] CBC BLOOD Specimen Type: BLOOD Comment: HGB Called to : [place] Posadas [facility] [place]: [id number] on: 07/18/24 by: [id number] Critical Verbal Readback Performed Ordering Provider: CAMDEN PATTON Report Released Date/Time: Jul 17, 2024 07:38 PM Reporting Lab: [address] [address] Performing Lab: [address] [address] WBC 7.0 10*3/uL 3.6-11.2 RBC 2.04 10*6/uL [...] 10*3/uL 2.10-8.00 Jul 18, 2024 06:32 AM [facility] MAGNESIUM PLASMA Specimen Type: PLASM A Comment: No hemolysis noted. Ordering Provider: CAMDEN PATTON Report Released Date/Time: Jul 17, 2024 07:38 PM Reporting Lab: [address] [address] Performing Lab: [address] [place] [address] MAGNESIUM 1.5 mg/dL L 1.6-2.6 Jul 18, 2024 06:32 AM [facility] VANCOMYCIN (STL) PLASMA Specimen Type: PLASM A No comment entered. Ordering Provider: CAMDEN PATTON Report Released Date/Time: Jul 17, 2024 07:38 PM Reporting Lab: [address] [address] Performing Lab: [address] [address] VANCOMYCIN (STL) 5.0 ug/mL L 10-15 Jul 18, 2024 06:32 AM [facility] PHOSPHOROUS PLASMA Specimen Type: PLASM A Comment: No hemolysis noted. Ordering Provider: CAMDEN PATTON Report Released Date/Time: Jul 17, 2024 07:38 PM Reporting Lab: [address] [address] Performing Lab: [address] [address] PHOSPHOROUS 2.2 mg/dL L 2.3-4.7 Jul 18, 2024 06:32 AM [facility] COMPREHENSIVE METABOLIC PANEL PLASMA Specimen Type: PLASMA Comment: No hemolysis noted. Ordering Provider: CAMDEN PATTON Report Released Date/Time: Jul 17, 2024 07:38 PM Reporting Lab: [address] [address] Performing Lab: [address] [address] CREATININE 1.08 mg/dL 0.7-1.3 UREA NITROGEN 40.5 [...] 75.2 >60 Jul 18, 2024 12:05 AM [facility] HGB,HCT,PLT BLOOD Specimen Type: BLOOD No comment entered. Ordering Provider: ROSA VARGAS Report Released Date/Time: Jul 17, 2024 09:07 PM Reporting Lab: [address] [address] Performing Lab: [address] [address] HGB 7.3 g/dL L 13.1-16.8 HCT 21.0 L 38.2-48.4 PLT 64 10*3/uL L 150-400 Jul 17, 2024 07:45 PM [facility] MRSA SURVL NARES DNA NARES Specimen Type: [...] Jul 17, 2024 07:38 PM Reporting Lab: [address] [address] Performing Lab: [address] [address] MRSA SURVL NARES DNA Negative Negative Jul 17, 2024 07:36 PM [facility] GLUCOSE,BLOOD-poct (STL) BLOOD Specimen Type: BLOOD Comment: Test Performed by: [id number] Meter #: [id number] Ordering Provider: CAMDEN PATTON Report Released Date/Time: Jul 17, 2024 07:48 PM Reporting Lab: [facility] [address] [place] [address] Performing Lab: [address] [address] GLUCOSE,BLOOD-poct (L) 98 mg/dL 72-99 Jul 17, 2024 07:35 PM [facility] BLOOD GAS PANEL ABG ([facility]) VENOUS BLOOD Specimen Type : VENOUS BLOOD Comment: normalcy status - Below absolute low-off instrument scale Test Performed by: [id number] Meter #: [id number] Ordering Provider: CAMDEN PATTON Report Released Date/Time: Jul 17, 2024 07:37 PM Reporting Lab: [address] [address] Performing Lab: [address] [address] GEM PH 7.39 7.31-7.41 GEM PCO2 31 [...] TEMP 37.0 Jul 17, 2024 07:10 PM [facility] URINALYSIS W/ CX REFLEX (STL-PB) URINE Specim en Type: URINE No comment entered. Ordering Provider: CASEY BOONE Report Released Date/Time: Jul 17, 2024 04:24 PM Reporting Lab: [address] [address] Performing Lab: [address] [address] URINE COLOR Light-Yellow Yellow U.BILIRUBIN Negative mg/dL Negative U.PH 6.0 5.0-8.0 APPEARANCE Clear Clear U.NITRITE Negative mg/dL Negative URN.GLUCOSE Normal mg/dL Negative URN.PROTEIN Negative mg/dL URN.UROBILINOGEN Normal mg/dL Normal URN.BLOOD Negative mg/dL Negative-Trace URN.KETONES Trace mg/dL Negative-Trace URN.LEUK.EST. Negative mg/dL Negative-Tr april URN.SPECIFIC GRAVITY 1.029 Jul 17, 2024 06:25 PM [facility] RETICULOCYTE PANEL BLOOD Specimen Type: BLOOD No comment entered. Ordering Provider: CASEY BOONE Report Released Date/Time: Jul 17, 2024 06:13 PM Reporting Lab: [place] [address] Performing Lab: [address] [address] RETIC RATIO 7.35 H 0.50-2.30 IRF 39.7 H 2.3-13.4 RETICULOCYTE HEMOGLOBIN EQUIVALENT 35.8 pg 28.2-36.6 RETIC COUNT,ABS 0.129 10*6/uL H 0.022-0.10 1 Jul 17, 2024 06:25 PM [facility] HAPTOGLOBIN (STL) PLASMA Specimen Type: PLASM A No comment entered. Ordering Provider: CASEY BOONE Report Released Date/Time: Jul 17, 2024 06:13 PM Reporting Lab: [address] [address] Performing Lab: [place] [phone] HAPTOGLOBIN (STL) 93 mg/dL 44-215 Jul 17, 2024 06:25 PM [facility] LDH PLASMA Specimen Type: PLASM A No comment entered. Ordering Provider: CASEY BOONE Report Released Date/Time: Jul 17, 2024 06:13 PM Reporting Lab: [place] [address] [facility] [address] Performing Lab: [address] [address] LDH 305 U/L H 125-243 Jul 17, 2024 06:25 PM [facility] CBC BLOOD Specimen Type: BLOOD Comment: HGB Called to : Watson White at: [id number] on:[id number] by: [facility] Critical Verbal Readback Performed Ordering Provider: CAMDEN PATTON Report Released Date/Time: Jul 17, 2024 07:09 PM Reporting Lab: [address] [address] Performing Lab: [address] [address] WBC 27.6 10*3/uL H 3.6-11.2 RBC 1.76 [...] H 2.10-8.00 Jul 17, 2024 04:59 PM [facility] BLOOD GAS PANEL ABG ([facility]) VENOUS BLOOD Specimen Type : VENOUS BLOOD Comment: Test Performed by: [id number] Meter #: [id number] Ordering Provider: CASEY BOONE Report Released Date/Time: Jul 17, 2024 05:00 PM Reporting Lab: [address] [address] Performing Lab: [address] [address] GEM PH 7.39 7.31-7.41 GEM PCO2 33 [...] TEMP 37.0 Jul 17, 2024 04:25 PM [facility] PT/INR NEW (L-MA) PLASMA Specimen Type: PLAS MA No comment entered. Ordering Provider: CASEY BOONE Report Released Date/Time: Jul 17, 2024 04:24 PM Reporting Lab: [address] [address] Performing Lab: [address] [address] PROTIME 25.3 s H 9.4-12.5 INR VALUE 2.3 {INR} Jul 17, 2024 04:25 PM [facility] MAGNESIUM PLASMA Specimen Type: PLASM A Comment: No hemolysis noted. Ordering Provider: CASEY BOONE Report Released Date/Time: Jul 17, 2024 04:24 PM Reporting Lab: [facility] [address] [place] [address] Performing Lab: [address] [address] MAGNESIUM 1.4 mg/dL L 1.6-2.6 Jul 17, 2024 04:25 PM [facility] COVID-19 DIAGNOSTIC (FLU/RSV)(STL) NASOPHARYNX Spec imen Type: [...] Jul 17, 2024 04:24 PM Reporting Lab: [address] [address] Performing Lab: [address] [address] INFLUENZA A Negative Negative INFLUENZA B Negative Negative COVID-19 (STL-PB) Not Detected Not Detec nate RSV (Cepheid) NEGATIVE Negative Jul 17, 2024 04:25 PM [facility] COMPREHENSIVE METABOLIC PANEL PLASMA Specimen Type: PLASMA Comment: No hemolysis noted. Ordering Provider: CASEY BOONE Report Released Date/Time: Jul 17, 2024 04:24 PM Reporting Lab: [address] [address] Performing Lab: [address] [address] CREATININE 1.25 mg/dL 0.7-1.3 UREA NITROGEN 47.0 [...] 63.1 >60 Jul 17, 2024 04:25 PM [facility] CBC BLOOD Specimen Type: BLOOD No comment entered. Ordering Provider: CASEY BOONE Report Released Date/Time: Jul 17, 2024 04:24 PM Reporting Lab: [address] [address] Performing Lab: [address] [address] WBC 42.4 10*3/uL H 3.6-11.2 RBC 2.20 [...] H 2.10-8.00 Jul 13, 2024 12:39 PM [facility] TSH W/ REFLEX FT4 (STL) PLASMA Specimen Type: PLASMA No comment entered. Ordering Provider: TONY SIMMONS Report Released Date/Time: Jun 07, 2024 01:01 PM Reporting Lab: [address] [address] Performing Lab: [address] [address] TSH 1.431 u[IU]/mL 0.47-5 Jul 13, 2024 12:39 PM [facility] PHOSPHOROUS PLASMA Specimen Type: PLASM A Comment: No hemolysis noted. Ordering Provider: TONY SIMMONS Report Released Date/Time: Jun 07, 2024 01:01 PM Reporting Lab: [address] [address] Performing Lab: [address] [address] PHOSPHOROUS 2.4 mg/dL 2.3-4.7 Jul 13, 2024 12:39 PM [facility] MAGNESIUM PLASMA Specimen Type: PLASM A Comment: No hemolysis noted. Ordering Provider: TONY SIMMONS Report Released Date/Time: Jun 07, 2024 01:01 PM Reporting Lab: [address] [address] Performing Lab: [address] [address] MAGNESIUM 2.0 mg/dL 1.6-2.6 Jul 13, 2024 12:39 PM [facility] CBC BLOOD Specimen Type: BLOOD Comment: no clot Ordering Provider: TONY SIMMONS Report Released Date/Time: Jun 07, 2024 01:01 PM Reporting Lab: [facility] [address] [facility] [address] Performing Lab: [address] [address] WBC 3.0 10*3/uL L 3.6-11.2 RBC 3.83 [...] 10*3/uL 2.10-8.00 Jul 13, 2024 12:39 PM [facility] COMPREHENSIVE METABOLIC PANEL PLASMA Specimen Type: PLASMA Comment: No hemolysis noted. Ordering Provider: TONY SIMMONS Report Released Date/Time: Jun 07, 2024 01:01 PM Reporting Lab: [facility] [address] [facility] [address] Performing Lab: [address] [address] CREATININE 0.75 mg/dL 0.7-1.3 UREA NITROGEN 21.3 [...] 98.9 >60 Jul 13, 2024 12:38 PM [facility] ALPHA-FETOPROTEIN(STL-PB) SERUM Specimen Type : SERUM No comment entered. Ordering Provider: DANIELLE ORTEGA Report Released Date/Time: Jul 04, 2024 03:26 PM Reporting Lab: [address] [address] Performing Lab: [address] [address] ALPHA-FETOPROTEIN(STL-PB) 16.86 ng/mL H 1- 8.78 Jul 13, 2024 12:37 PM [facility] CARBOHYDRATE Ag SERUM Specimen Type: SERUM Comment: REFERENCE RANGE: <34 U/mL This test was performed using the Siemens chemiluminescent method. Values obtained from different assay methods cannot be used inter- changeably. CA 19-9 levels, regardless of value, should not be interpreted as absolute evidence of the presence or absence of disease. Test Performed by [facility] [place], [employer] [facility], [address] [place] [id number] Tristin yIer M.D., Ph.D., Director of Laboratories , [place] [id number] Ordering Provider: DANIELLE ORTEGA Report Released Date/Time: Jul 04, 2024 03:28 PM Reporting Lab: [address] [address] Performing Lab: [address] [place] [address] CARBOHYDRATE Ag 61 H SEE BELOW Vital Signs: All taken on the encounter date This section contains inpatient and outpatient Vital Signs collected on the date of the Encounter. Date/Time Temperature Pulse Blood Pressure Respiratory Rate SP02 Pain Height Weight Body Mass Index Source Aug 11, 2024 09:41 PM 75 131/83 16 96 [facility] Aug 11, 2024 08:00 PM 99.8 0 [facility] Aug 11, 2024 05:18 PM 0 [facility] Aug 11, 2024 04:39 PM 97.9 67 128/75 20 98 [facility] Aug 11, 2024 12:58 PM 97.7 60 100/65 19 99 [facility] Social History: Smoking Status [...] 04:02 PM ORYX ADMIT TOBACCO SCREEN NO [facility] Tobacco Use History This section includes a history of the smoking, or tobacco-related health factors, that were collected on or before the date of the Encounter. The data comes from the [place] facility where the Encounter took place. Date/Time Smoking Status/Tobacco Use Comment F acility Jan 20, 2023 03:49 PM VA-TOBACCO FORMER USER [facility] Jan 20, 2023 03:49 PM VA-TOBACCO QUIT 15 YRS OR MORE [facility] Feb 06, 2021 04:28 PM VA-TOBACCO FORMER USER [facility] Feb 06, 2021 04:28 PM VA-TOBACCO QUIT 15 YRS OR MORE [facility] Radiology Reports: +/- 30 days of the [...] BLOOD FLOW ABD/RENAL DOPPLER (COMPLETE): ABRAHAM HAWK [id number] -1955 M Exm Date: AUG 23, 2024@12:12 Req Phys: GILSON OG Loc: [facility]-GEN MED INPT VISIT (Req'g L Img Loc: [facility]-ULTRASOUND [facility] Service: [address] [address] (Case [id number] COMPLETE) US BLOOD FLOW ABD/RENAL DOPPLER ((US Detailed) CPT:93265 Reason for Study: dopplers Clinical History: Report Status: Verified Date Reported: AUG 23, 2024 Date Verified: AUG 23, 2024 Turret Punch Press Operator E-Sig:/ES/PETROS MCCORD Report: Case [id number], [id number]. US ABDOMEN LTD, SINGLE ORG OR QUADRANT, [...] vasculature. Primary Interpreting Staff: PETROS MCCORD MD (Turret Punch Press Operator) /PETROS SRIVASTAVA [facility] Aug 23, 2024 12:12 PM US ABDOMEN LTD, SINGLE ORG OR QUADRANT: ABRAHAM HAWK [id number] -1955 M Exm Date: AUG 23, 2024@12:12 Req Phys: GILSON OG Loc: [facility]GEN MED INPT VISIT (Req'g L Img Loc: [facility]ULTRASOUND [facility] Service: [address] [address] (Case [id number] COMPLETE) US ABDOMEN LTD, SINGLE ORG OR CARLITOS(US Detailed) CPT:33187 Reason for Study: Possible SBP, RUQUS with dopplers, please comment on ascites? Clinical History: Report Status: Verified Date Reported: AUG 23, 2024 Date Verified: AUG 23, 2024 Turret Punch Press Operator E-Sig:/ES/PETROS MCCORD Report: Case [id number], [id number]. US ABDOMEN LTD, SINGLE ORG OR QUADRANT, [...] vasculature. Primary Interpreting Staff: PETROS MCCORD MD (Turret Punch Press Operator) /PETROS SRIVASTAVA [facility] Aug 10, 2024 02:[address] ABD PEL W/CONT & 3D: ABRAHAM HAWK [id number] -1955 M Exm Date: AUG 10, 2024@14:33 Req Phys: YASIR SANZ MD Pat Loc: [facility]-EMERGENCY DEPT 2ND SHIFT (R Img Loc: [facility]-CT IMAGING [facility] Service: [address] [address] (Case [id number] COMPLETE) CT ABDOMEN AND PELVIS W/CONTRAST (CT Detailed) CPT:10474 Contrast Media : Non-ionic Iodinated Reason for Study: Abdominal pain, vomiting Clinical History: Responsible Attending: Svetlana Attending Contact Number: [id number] Resident Contact Number: Abdominal pain, vomiting Allergies listed in CPRS chart: Patient has answered NKA Creatinine:CREATININE 0.82 mg/dL 08/10/2024 11:30 /eGFR: STL EGFR (within one year). CREATININE 0.82 mg/dL (08/10/24 11:30) Wt: 152.1 lb [68.99 kg] (08/10/2024 11:31) History of: Renal failure, chronic or acute renal disease: NO Report Status: Verified Date Reported: AUG 10, 2024 Date Verified: AUG 10, 2024 Turret Punch Press Operator E-Sig:/ES/PERTOS HUANGT Report: Case [id number]. CT ABDOMEN AND PELVIS W/CONTRAST. Gastrointestinal contrast: [...] hernias. Dictated by Kenneth Albright DO (radiology rn). I, Petros Mccord, have reviewed the images and report and concur with these findings. Primary Interpreting Staff: PETROS MCCORD MD (Turret Punch Press Operator) Primary Interpreting Resident: KENNETH LABRIGHT, Tableau Administrator /PETROS REESE [facility] Aug 01, 2024 10:20 AM PET/CT TUMOR IMAGING (SKULL TO MID-THIGH)-P: ABRAHAM HAWK [id number] -1955 M Exm Date: AUG 01, 2024@10:20 Req Phys: TONY SIMMONS Loc: [facility]-ONCOLOGY IRIS (Req'g Loc) Img Loc: -PET-CT Service: [address] [address] (Case [id number] COMPLETE) PET/CT TUMOR SKULL BASE TO MID-T(NM Detailed) CPT:47357 CPT Modifiers : PS PET TUMOR SUBSQ TX STRATEGY Reason for Study: Nasopharyngeal cancer (Case [id number] COMPLETE) F-18 FLUORODEOXYGLUCOSE (FDG),PER(NM Detailed) CPT:A9552 Clinical History: Report Status: Verified Date Reported: AUG 01, 2024 Date Verified: AUG 01, 2024 Turret Punch Press Operator E-Sig:/SHAQ/NATASHA LEIJA Report: PATIENT NAME: ABRAHAM HAWK. CASE #: [id number], [id number]. PROCEDURE: PET/CT study Indication: Nasopharyngeal cancer HISTORY: [...] lytic osseous lesion is noted within the caxfk-jc-regy. Impression: 1. The previous sites of FDG [...] NEEDED Primary Interpreting Staff: NATASHA LEIJA MD (Turret Punch Press Operator) /PFT NATASHA LEIJA [facility] Jul 27, 2024 03:41 PM CHEST PORTABLE: MARCCASSANDRAABRAHAM MEJIA [id number] -1955 M Exm Date: JUL 27, 2024@15:41 Req Phys: GENELIZABETH CASSIDY Pat Loc: [facility]-EMERGENCY DEPT 2ND SHIFT (R Img Loc: [facility]-MAIN RADIOLOGY SUITE Service: [facility], [facility] [address] [place] [address] (Case [id number] COMPLETE) CHEST PORTABLE (RAD Detailed) CPT:08959 Proc Modifiers : Portable Reason for Study: sob Clinical History: Report Status: Verified Date Reported: JUL 27, 2024 Date Verified: JUL 27, 2024 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 AP portable view chest. COMPARISON: Chest x-ray [...] Report dictated by Krystian Sultana D.O. (radiology rn) ISol, have reviewed the images and report and concur with these findings. Primary Interpreting Staff: Sol Abraham MD, Radiologist (Turret Punch Press Operator) Primary Interpreting Resident: Krystian Sultana D.O., Resident Physician /SOL DHALIWAL [facility] Jul 17, 2024 06:[address] ABD PEL W/CONT & 3D: ABRAHAM HAWK [id number] -1955 M Ex Date: JUL 17, 2024@18:18 Req Phys: CASEY BOONE Loc: 4-C [facility]-/07-17-2024@19:47 Img Loc: [facility]-CT IMAGING Service: Unknown [address] [address] (Case [id number] COMPLETE) CT ABDOMEN AND PELVIS W/CONTRAST (CT Detailed) CPT:61896 Contrast Media : Non-ionic Iodinated Reason for Study: septic shock, abd pain Clinical History: Responsible Attending: Nils Attending Contact Number: [phone] Resident Contact Number: Septic shock, Patient with [...] 17, 2024 Date Verified: JUL 17, 2024 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 Chest 12 series and 1585 images were subsequently received by the [place] National Teleradiology Program (NTP) for interpretation. Abdomen and pelvis 9 series and 1365 images were subsequently received by the [place] National Teleradiology Program (NTP) for interpretation. Total [...] from 09/12/2023. READING PHYSICIAN: Guilherme Talbert M.D. -[phone] 07/17/2024 17:44 [facility] [employer] Teleradiology Program [phone] (For Medical Practitioner Use Only) Attention Patients / Veterans: If you have questions or concerns about these test results, please contact your ordering provider or primary care team. Primary Interpreting Staff: RADIOLOGY,OUTSIDE SERVICE, Staff Physician / RADIOLOGY,OUTSIDE SERVICE [facility] Jul 17, 2024 06:[address] PE CHEST W/3D: ABRAHAM HAWK [id number] -1955 M Exm Date: JUL 17, 2024@18:17 Req Phys: CASEY BOONE Loc: 4-C [facility]/07-17-2024@19:47 Img Loc: -CT IMAGING [facility] Service: Unknown [facility], [facility] [address] [place] [address] (Case [id number] COMPLETE) CT THORAX W/CONT (PE) (CT Detailed) CPT:94648 Contrast Media : unspecified contrast media Reason for Study: RO PE Clinical History: Responsible Attending: Nils Attending Contact Number: [phone] Resident Contact Number: Patient with HCC and [...] 17, 2024 Date Verified: JUL 17, 2024 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 Chest 12 series and 1585 images were subsequently received by the [place] National Teleradiology Program (NTP) for interpretation. Abdomen and pelvis 9 series and 1365 images were subsequently received by the [place] National Teleradiology Program (NTP) for interpretation. Total [...] from 09/12/2023. READING PHYSICIAN: Guilherme Talbert M.D. -[phone] 07/17/2024 17:44 [facility] National Teleradiology Program [phone] (For Medical Practitioner Use Only) Attention Patients / Veterans: If you have questions or concerns about these test results, please contact your ordering provider or primary care team. Primary Interpreting Staff: RADIOLOGY,OUTSIDE SERVICE, Staff Physician / RADIOLOGY,OUTSIDE SERVICE [facility] Pathology Reports: +/- 30 [...] comes from all [place] treatment facilities. Date/Time Pathology Report Provider Source Aug 16, 2024 09:43 AM LR SURGICAL PATHOL JL REPORT: LOCAL TITLE: LR SURGICAL PATHOLOGY REPORT STANDARD TITLE: PATHOLOGY PROCEDURE NOTE DATE OF NOTE: AUG 16, 2024@09:43:26 ENTRY DATE: AUG 16, 2024@09:43:26 AUTHOR: TRUDY TEMPLETON EXP COSIGNER: URGENCY: STATUS: COMPLETED $APHDR [...] submitted in toto in A1. MICROSCOPIC EXAM: Trudy Templeton MD 08/16/2024 The microscopic review of [...] Performing Laboratory: Surgical Pathology Report Performed By: [address]# [id number] [address] [place] [id number] $FTR - - - - - - - - - - - - - - - - - - - - - - - - - - - - - - - - - - - - - - - - (End of report) TRUDY TEMPLETON MD aq Date Aug 16, 2024 - - - - - - - - - - - - - - - - - - - - - - - - - - - - - - - - - - - - - - - - ABRAHAM HAWK STANDARD FORM 515 ID:[id number] SEX:M :1955 AGE: 68 LOC:APFEE PCP: Deirdre Wild /eze TEMPLETON Pathologist Signed: 08/16/2024 09:43 TRUDY TEMPLETON [facility] Aug 11, 2024 06:00 AM LR MICROBIOLOGY RE PORT: Accession [UID]: [id number] [[id number]] Received: Aug 11, 2024@06:19 Collection sample: B D BLD. BOTTLE Collection date: Aug 11, 2024 06:00 Site/Specimen: BLOOD Provider: GILSON OG Test(s) ordered: BLOOD CULT (SET 1)............ completed: Aug 17, 2024 10:06 * BACTERIOLOGY FINAL REPORT => Aug 17, 2024 10:22 [facility] CODE: [id number] Bacteriology Remark(s): 2. ANITHA Culture shows NO GROWTH IN 6 DAYS =--=--=--=--=--=--=--=--=-- =--=--=--=--=--=--=--=--=-- =--=--=--=--=--=--=--=-- Performing Laboratory: Bacteriology Report Performed By: [facility] [address] [place] [address]# [id number] [address] [address] JULISSA BROWN [facility] Jul 17, 2024 05:10 PM LR MICROBIOLOGY RE PORT: Accession [UID]: [id number] [[id number]] Received: Jul 17, 2024@17:30 Collection sample: B D BLD. BOTTLE (SET 2)Collection date: Jul 17, 2024 17:10 Site/Specimen: BLOOD Provider: CASEY BOONE Test(s) ordered: BLOOD CULT (SET 2)............ completed: Jul 23, 2024 14:26 * BACTERIOLOGY FINAL REPORT => Jul 23, 2024 14:28 TECH CODE: [id number] Bacteriology Remark(s): CULTURE IS NEGATIVE TO DATE, ALL POSITIVES ARE ROUTINELY CALLED. [facility] Culture shows NO GROWTH IN 6 DAYS. 07/23/24 KI =--=--=--=--=--=--=--=--=-- =--=--=--=--=--=--=--=--=-- =--=--=--=--=--=--=--=-- Performing Laboratory: Bacteriology Report Performed By: [address] CLIA# [id number] [address] [place] [id number] [facility] Jul 17, 2024 05:10 PM MICROBIOLOGY RE PORT: Accession [UID]: [id number] [[id number]] Received: Jul 17, 2024@17:30 Collection sample: B D BLD. BOTTLE Collection date: Jul 17, 2024 17:10 Site/Specimen: BLOOD Provider: CASEY BOONE Test(s) ordered: BLOOD CULT (SET 1)............ completed: Jul 23, 2024 14:26 * BACTERIOLOGY FINAL REPORT => Jul 23, 2024 14:28 TECH CODE: [id number] Bacteriology Remark(s): CULTURE IS NEGATIVE TO DATE, ALL POSITIVES ARE ROUTINELY CALLED. [facility] Culture shows NO GROWTH IN 6 DAYS. 07/23/24 KI =--=--=--=--=--=--=--=--=-- =--=--=--=--=--=--=--=--=-- =--=--=--=--=--=--=--=-- Performing Laboratory: Bacteriology Report Performed By: [address] CLIA# [id number] [address] [address] [facility] Encounter Notes: All associated encounter notes This section contains the clinical notes associated to the Encounter. Date/Time Encounter Note(s) Provider Source Sep 27, 2024 10:33 AM ADDENDUM: LOCAL TITLE: Addendum STANDARD TITLE: ADDENDUM DATE OF NOTE: SEP 27, 2024@10:33:49 ENTRY DATE: SEP 27, 2024@10:33:50 AUTHOR: DANIELLE ORTEGA EXP COSIGNER: URGENCY: STATUS: COMPLETED Notified by Heme/Onc nurse: he is currently admitted to [facility] in the ICU. he states that he had been having diarrhea but yesterday he started to have black emesis. there is plan to do an upper GI at [facility] at 1330 today (09/27/24) Tammie, Please cancel his upcoming EGD as he is getting one today at [place]. Will f/u results and determine when next endosopy will be indicated. Christen, please let pt know his 10/02/24 appt will be cancelled. /shaq/ Danielle Ortega PA-C Physician Band Saw Operator Cake Cutting - Gastroenterology Signed: 09/27/2024 10:35 Receipt Acknowledged By: 09/27/2024 10:48 /es/ TAMMIE ZAMORA [employer] 09/27/2024 12:47 /shaq/ CHRISTEN HERRON RN HEPATOLOGY MANAGER ADMINISTRATIVE SERVICES ======== --- Original Document --- 09/26/24 [facility] GASTROENTEROLOGY TELEPHONE NOTE STL: Pre-Procedure Telephone Discussion GI PREP LINE: ext [phone] Procedure(s) Planned procedure: Esophagogastroduodenoscopy (EGD) Scheduled date for procedure: Sep@12:15 Was unable to contact the ? A voice mail message was left with the proper identifers for the , and a callback number was provided. /shaq/ SURJIT WARNER SENIOR RESEARCH ENGINEER REGISTERED NURSE Signed: 09/26/2024 14:58 OMAR ORTEGA [facility] Sep 26, 2024 02:58 PM GASTROENTEROLOGY TELEPHONE ENCOUNTER NOTE: LOCAL TITLE: [facility] GASTROENTEROLOGY TELEPHONE NOTE STL STANDARD TITLE: GASTROENTEROLOGY TELEPHONE ENCOUNTER NOTE DATE OF NOTE: SEP 26, 2024@14:58 ENTRY DATE: SEP 26, 2024@14:58:13 AUTHOR: SURJIT AWRNER EXP COSIGNER: URGENCY: STATUS: COMPLETED [facility] GASTROENTEROLOGY TELEPHONE NOTE STL Has ADDENDA Pre-Procedure Telephone Discussion [facility] GI PREP LINE: ext [phone] Procedure(s) Planned procedure: Esophagogastroduodenoscopy (EGD) Scheduled date for procedure: Sep@12:15 Was unable to contact the ? A voice mail message was left with the proper identifers for the , and a callback number was provided. /shaq/ SURJIT WARNER RN BSN REGISTERED NURSE Signed: 09/26/2024 14:58 09/27/2024 ADDENDUM STATUS: COMPLETED Notified by Heme/Onc nurse: he is currently admitted to [facility] in the ICU. he states that he had been having diarrhea but yesterday he started to have black emesis. there is plan to do an upper GI at [facility] at 1330 today (09/27/24) Tammie, Please cancel his upcoming EGD as he is getting one today at [place]. Will f/u results and determine when next endosopy will be indicated. Christen, please let pt know his 10/02/24 appt will be cancelled. /shaq/ Danielle Ortega PA-C Physician Band Saw Operator Cake Cutting - Gastroenterology Signed: 09/27/2024 10:35 Receipt Acknowledged By: * AWAITING SIGNATURE * TAMMIE ZAMORA * AWAITING SIGNATURE * CHRISTEN HERRON AMBER [facility] Aug 11, 2024 03:54 PM ANESTHESIOLOGY POST OPERATIVE E & M NOTE: LOCAL TITLE: ANESTHESIA POST-OP STL STANDARD TITLE: ANESTHESIOLOGY POST OPERATIVE E & M NOTE DATE OF NOTE: AUG 11, 2024@15:54 ENTRY DATE: AUG 11, 2024@15:54:22 AUTHOR: BERNADETTE TAVERA EXP COSIGNER: URGENCY: STATUS: COMPLETED Post-Anesthetic Note === No complications noted from anesthetic at the time of this note. Anesthesia intra-op flowsheet uploaded to [employer]. /shaq/ BERNADETTE TAVERA ANESTHESIOLOGIST Signed: 08/11/2024 15:54 BERNADETTE TAVERA [facility] Aug 11, 2024 11:04 AM ANESTHESIOLOGY PRE OPERATIVE E & M NOTE: LOCAL TITLE: ANESTHESIA PRE-OP ST STANDARD TITLE: ANESTHESIOLOGY PRE OPERATIVE E & M NOTE DATE OF NOTE: AUG 11, 2024@11:04 ENTRY DATE: AUG 11, 2024@11:04:44 AUTHOR: BERNADETTE TAVERA EXP COSIGNER: URGENCY: STATUS: COMPLETED ABRAHAM HAWK is a 68 year old MALE === Pre-operative diagnosis: melena Operation proposed: EGD === VITALS Age: 68 Weight: 152 lb [68.95 kg] (08/11/2024 00:00) Height: 72 in [182.9 cm] (07/26/2023 08:00) BMI: 20.7 Blood pressure: 100/65 (08/11/2024 08:05) Pulse: 57 (08/11/2024 08:05) Temperature: 97.6 F [36.4 C] (08/11/2024 08:05) Respiration: 18 (08/11/2024 08:05) SpO2: 96% (08/11/2024 08:05) Pain: 0 (08/11/2024 08:07) === ALLERGIES Patient has answered NKA === MEDICATIONS Inpatient: 1) INSULIN ASPART (NOVOLOG) INJ SQ Q6H SLIDING SCALE 2) GLUCAGON INJ IM PRN 1MG/1VIAL 3) GLUCOSE TAB,CHEWABLE PO PRN 16GM 4) DEXTROSE 50% INJ,SOLN IVP PRN 50 ML 5) ONDANSETRON INJ,SOLN IVP TID PRN 4MG/2ML 6) OCTREOTIDE INJ IV FOR GI BLEED 7) CEFTRIAXONE 2GM/BAG INJ,SOLN IVPB QDAILY Active Outpatient Medications (including Supplies): Active Outpatient Medications Status ======= = 1) FUROSEMIDE 20MG TAB TAKE ONE [...] FOR TABLET CUTTING Active Non-VA Medications Status ======= = 1) Non-VA AMPHETAMINE/DEXTROAMPHET 30MG SA CAP [...] A DAY ACTIVE NEEDED 15 Total Medications === LABS WBC 2.4 L 10*3/uL 08/11/2024 06:00 RBC 2.42 L 10*6/uL 08/11/2024 06:00 HGB 7.5 L g/dL 08/11/2024 06:00 HCT 23.3 L % 08/11/2024 06:00 MCV 96.3 fL 08/11/2024 06:00 MCH 31.0 pg 08/11/2024 06:00 MCHC 32.2 L g/dL 08/11/2024 06:00 RDW 15.4 H % 08/11/2024 06:00 PLT 63 L 10*3/uL 08/11/2024 06:00 MPV 11.3 H fL 08/11/2024 06:00 NEUTROPHILS, AUTO % 79 % 08/10/2024 11:30 LYMPHOCYTES, AUTO % 10 % 08/10/2024 11:30 MONOCYTES, AUTO % 10 % 08/10/2024 11:30 EOSINOPHILS, AUTO % 1 % 08/10/2024 11:30 BASOPHILS, AUTO % 1 % 08/10/2024 11:30 NEUTROPHILS, ABSOLUTE 5.79 10*3/uL 08/10/2024 11:30 LYMPHOCYTES, ABSOLUTE 0.71 L 10*3/uL 08/10/2024 11:30 MONOCYTES, ABSOLUTE 0.76 10*3/uL 08/10/2024 11:30 EOSINOPHILS, ABSOLUTE 0.05 10*3/uL 08/10/2024 11:30 BASOPHILS, ABSOLUTE 0.04 10*3/uL 08/10/2024 11:30 NRBC% 0 #/100 (WBCs) 08/10/2024 20:00 NEUTROPHILS 78.6 % 08/11/2024 06:00 BAND NEUTROPHILS 8.6 % 07/27/2024 13:54 LYMPHOCYTES 14.3 % 08/11/2024 06:00 MONOCYTES 5.3 % 08/11/2024 06:00 EOSINOPHILS 0.9 % 08/10/2024 20:00 BASOPHILS 1.8 % 08/11/2024 06:00 METAMYELOCYTES 0.9 % 07/20/2024 20:00 MYELOCYTES 0.9 % 07/20/2024 20:00 PROMYELOCYTES 0.9 % 07/20/2024 13:13 ATYPICAL LYMPHOCYTES 1.8 % 08/10/2024 20:00 IMMATURE PLT FRACTION 5.0 % 08/11/2024 06:00 ANISOCYTOSIS 1+ 08/11/2024 06:00 POIKILOCYTOSIS 1+ 08/11/2024 06:00 TEARDROPS 1+ 07/13/2024 12:39 MACROCYTOSIS 1+ 07/27/2024 13:54 POLYCHROMASIA 1+ 08/11/2024 06:00 STOMATOCYTES 1+ 08/11/2024 06:00 INR VALUE 1.4 INR 08/11/2024 06:00 PROTIME 15.5 H sec 08/11/2024 06:00 APTT 25.5 L sec 08/11/2024 06:00 SODIUM 133 L mEq/L 08/10/2024 20:00 POTASSIUM 3.5 mEq/L 08/10/2024 20:00 CHLORIDE 103 mEq/L 08/10/2024 20:00 UREA NITROGEN 16.8 mg/dL 08/10/2024 20:00 CREATININE 0.84 mg/dL 08/10/2024 20:00 CALCIUM 8.4 mg/dL 08/10/2024 20:00 PROTEIN 5.4 L g/dL 08/11/2024 06:00 ALBUMIN 2.6 L g/dL 08/11/2024 06:00 ALKALINE PHOSPHATASE 72 U/L 08/11/2024 06:00 ALT/SGPT 10 U/L 08/11/2024 06:00 AST/SGOT 28 U/L 08/11/2024 06:00 TOTAL BILIRUBIN 0.8 mg/dL 08/11/2024 06:00 CARBON DIOXIDE 23 mEq/L 08/10/2024 20:00 GLUCOSE 104 H mg/dL 08/10/2024 20:00 EGFR (CKD-EPI 2020) 95.6 08/10/2024 20:00 No HEMOGLOBIN A1C EO data found URINE COLOR Light-Yellow 07/17/2024 19:10 APPEARANCE Clear 07/17/2024 19:10 U.PH 6.0 07/17/2024 19:10 U.BILIRUBIN Negative mg/dL 07/17/2024 19:10 U.NITRITE Negative mg/dL 07/17/2024 19:10 No URINE DRUG SCREEN EO data found No TEST LAST ONE EO data found No HIV SCREENING EO data found [facility] Hep C tests in last five years. HEP C Ab HCV Ab (STL) REACTIVE S/CO H* (04/27/22 11:12) === DIAGNOSTICS CXR: Impression for CHEST PORTABLE, 07/27/24, case [id number] No focal pneumonia or pleural effusion. Minimal left basilar atelectasis. No CHF. Left upper lobe nodule could be benign or malignant as noted on 07/17/[address] Ongoing follow-up advised. Report dictated by Krystian Sultana D.O. (radiology rn) I, Sol Abraham, have reviewed the images and report and concur with these findings. EK08/03/2024 Date Verified: Aug 03, 2024@15:31:22 17091.2 Ventricular Rate: 78 BPM 95736.3 Atrial Rate: 78 BPM 25788.4 P-R Interval: 130 ms 95401.5 QRS Duration: 72 ms 96979.6 Q-T Interval: 358 ms 25426 QTC Calculation(Bazett)408 ms 84370.12 Calculated P [place]: 71 degrees 52246.13 Calculated R [place]: 44 degrees 65594.14 Calculated T [place]: 41 degrees Normal sinus rhythm Normal ECG When compared with ECG of 17-JUL-2024 16:23, Nonspecific T wave abnormality no longer evident in Lateral leads PFT: No Pulmonary Function Test for this patient. Echocardiogram: TTE 04/27/22 1. Normal left ventricular size and systolic function LVEF = 60 - 65%. 2. Normal LV diastolic function. 3. Severely enlarged RV with normal systolic function. 4. Severe right atrial enlargement, mild left atrial enlargement. 5. Moderate eccentric tricuspid regurgitation (may be underestimated due to direction of jet). 6. Mild pulmonary hypertension (estimated PASP of 46 mm Hg) 7. Effusion: No pericardial effusion. 8. No prior study available for comparison. 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 === REVIEW OF SYSTEMS/PAST MEDICAL HISTORY Functional capacity: >4 METs RESPIRATORY for: - Recent or current SOB - Sleep apnea - Asthma - COPD + nasopharyngeal carcinoma CARDIAC for: - Recent chest pain - Hypertension - Hyperlipidemia - Myocardial infarction - Coronary artery disease - Heart failure - Valvular disease - Atrial fibrillation/flutter PSYCH/CENTRAL NERVOUS for: - Depression - Anxiety - Post-traumatic stress disorder - Cerebral vascular accident - Seizures ENDOCRINE for: - Diabetes - Hypothyroid RENAL for: - Chronic kidney disease - Nephrolithiasis GI for: - GERD + HCC 2/2 chronic HCV + 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 - GI bleed VASCULAR/HEMATOLOGY/ONCOLOGY for: + Anemia - Hgb 7.5 - Thrombocytopenia - Blood disorders MUSCULOSKELETAL/SKIN/PERIPHERAL NERVOUS for: - Obesity - Arthritis/Degenerative joint disease - Rheumatoid arthritis - Neuropathy /REPRODUCTIVE for: - Prostate hypertrophy HABITS Alcohol: Denies Smoking: Denies Other drugs: marijuana === SURGICAL HISTORY Reviewed Previous anesthesia complications: None Family history of anesthesia complications: None === PHYSICAL EXAM Alert & oriented x3 Heart: Regular rate, Regular rhythm Lungs: Clear to auscultation bilaterally AIRWAY Mallampati Class: 3 Neck: Full range of motion, no pain on flexion/extension. Normal thyromental distance. Teeth: edentulous === ASA CLASS 4. A patient with severe systemic disease that is a constant threat to life. === ANESTHETIC PLAN General Planned anesthetic technique and options were discussed with the patient or guardian including risks, benefits, and potential complications. Consented for all modalities of felicita-operative pain management. === PRE-INDUCTION REASSESSMENT NPO status appropriate: Yes /shaq/ BERNADETTE TAVERA ANESTHESIOLOGIST Signed: 08/11/2024 11:31 Receipt Acknowledged By: 08/11/2024 13:23 /shaq/ MARISA WALL CRNA, Anesthesiology BERNADETTE TAVERA [facility]
--- OUTSIDE RECORDS SUMMARY | 2024-10-08 17:10 | XMS_ITS | Encounter Summary ---
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 Date/Time Encounter Type Encounter Description Reason Provider Source Jul 18, 2024 09:38 AM OFFICE O/P EST HI 40 MIN NON-OR ANESTHESIA PROCEDURES ICD-10-CM Z01.818 Encounter for other preprocedural examination GEOVANNYEUGENIA RIZZO CAROL IHAbdiel Encounter Template Text not used by [place] Assessments - Encounter Diagnoses This section includes the primary and secondary diagnoses documented for the Encounter. Date/Time Primary/Secondary Diagnosis Diagnosis Name Provider Source Jul 18, 2024 11:38 AM PRIMARY Encounter for other preprocedural examination MIHAIGLEN BALES [facility] Jul 18, 2024 11:38 AM SECONDARY Encounter for other specified surgical aftercare MIHAIGLEN BALES [facility] Plan of Treatment: Future Appointments (+ 6 months) and Future Tests (+/- 45 days) The Plan of Treatment section includes future care activities for the patient from all [place] treatmentfacilities. This section includes future appointments and future orders which are active, pending or scheduled. Future Appointments This section includes appointments that were scheduled to occur 6 months from the date of the Encounter, up to a maximum of 20 appointments. The data comes from all [place] treatment facilities. Appointment Date/Time Appointment Type Appointme nt Facility Name Jul 25, 2024 01:00 PM AMBULATORY - MEDICINE [facility] Jul 26, 2024 10:00 AM AMBULATORY - MEDICINE [facility] Jul 27, 2024 03:14 PM AMBULATORY - MEDICINE [facility] Aug 01, 2024 10:15 AM AMBULATORY - NONE [facility] Aug 02, 2024 11:30 AM AMBULATORY - MEDICINE [facility] Aug 02, 2024 11:31 AM AMBULATORY - MEDICINE [facility] Aug 10, 2024 11:00 AM AMBULATORY - MEDICINE [facility] Aug 10, 2024 11:31 AM AMBULATORY - MEDICINE [facility] Aug 10, 2024 11:59 AM AMBULATORY - MEDICINE [facility] Aug 16, 2024 10:00 AM AMBULATORY - MEDICINE [facility] Aug 17, 2024 08:30 AM AMBULATORY - MEDICINE [facility] Aug 17, 2024 09:00 AM AMBULATORY - MEDICINE [facility] Aug 17, 2024 09:30 AM AMBULATORY - MEDICINE [facility] Aug 23, 2024 12:00 PM AMBULATORY - NONE [facility] Aug 31, 2024 02:00 PM AMBULATORY - MEDICINE [facility] Sep 07, 2024 11:00 AM AMBULATORY - MEDICINE [facility] Sep 07, 2024 01:00 PM AMBULATORY - MEDICINE [facility] Oct 15, 2024 03:00 PM AMBULATORY - SURGERY [facility] Oct 19, 2024 02:00 PM AMBULATORY - NONE [facility] Active, Pending, and Scheduled Orders This section includes a listing of several types of active, pending, and scheduled orders, including clinic medications orders, diagnostic test orders, procedure orders and consult orders; where the start date of the order is 45 days before the date of the Encounter or 45 days after the date of theEncounter. The data comes from all [facility] facilities. Test Date/Time Test Type Test Details Facility Name Jul 17, 2024 12:00 AM Laboratory - Blood Bank Order RED BLOOD CELLS - LAB VBECS - NO SPECIMEN REQUIRED [facility] Jul 17, 2024 12:00 AM Laboratory - Blood Bank Order FRESH FROZEN PLASMA - LAB VBECS - NO SPECIMEN REQUIRED [facility] Jul 17, 2024 06:13 PM Laboratory - Blood Bank Order DIRECT ANTIGLOBULIN TEST - LAB BLOOD STAT [facility] Jul 17, 2024 06:13 PM Laboratory - Blood Bank Order TYPE & SCREEN - LAB BLOOD [facility] Jul 18, 2024 12:00 AM Laboratory - Blood Bank Order PLATELETS - LAB VBECS - NO SPECIMEN REQUIRED [facility] Aug 10, 2024 12:00 AM Laboratory - Blood Bank Order RED BLOOD CELLS - LAB VBECS - NO SPECIMEN REQUIRED JOANN [facility] Aug 10, 2024 02:00 PM Laboratory - Blood Bank Order TYPE & SCREEN - LAB BLOOD [facility] Aug 10, 2024 05:43 PM Laboratory - Chemistry Order LIPASE GREEN LI/HEP BLD/PLAS PLASMA STAT I ONCE [facility] Aug 10, 2024 05:44 PM Laboratory - Microbiology Order BLOOD CULT (SET 2) B D BLD. BOTTLE (SET 2) BLOOD JOANN I NOW [facility] Aug 11, 2024 02:00 AM Laboratory - Chemistry Order CBC BLOOD WC [facility] Aug 14, 2024 02:00 AM Laboratory - Chemistry Order CBC BLOOD WC [facility] Aug 15, 2024 02:00 AM Laboratory - Chemistry Order CBC BLOOD WC [facility] Aug 16, 2024 12:00 AM Laboratory - Chemistry Order CBC BLOOD SP [facility] Aug 16, 2024 08:00 PM Laboratory - Chemistry Order CBC BLOOD LC [facility] Aug 17, 2024 08:00 PM Laboratory - Chemistry Order CBC BLOOD LC [facility] Lab Results: +/- 30 days of [...] Type Comment Aug 17, 2024 03:34 PM [facility] TSH W/ REFLEX FT4 (STL) PLASMA Specimen Type: PLASMA No comment entered. Ordering Provider: TONY SIMMONS Report Released Date/Time: Aug 10, 2024 12:01 PM Reporting Lab: [address] [address] Performing Lab: [address] [address] TSH 4.570 u[IU]/mL 0.47-5 Aug 17, 2024 03:34 PM [facility] COMPREHENSIVE METABOLIC PANEL PLASMA Specimen Type: PLASMA Comment: No hemolysis noted. Ordering Provider: TONY SIMMONS Report Released Date/Time: Aug 10, 2024 12:01 PM Reporting Lab: [address] [address] Performing Lab: [address] [address] CREATININE 0.85 mg/dL 0.7-1.3 UREA NITROGEN 11.5 [...] 95.2 >60 Aug 17, 2024 03:34 PM [facility] CBC BLOOD Specimen Type: BLOOD Comment: No Clots Ordering Provider: TONY SIMMONS Report Released Date/Time: Aug 10, 2024 12:01 PM Reporting Lab: [address] [address] Performing Lab: [address] [address] WBC 5.0 10*3/uL 3.6-11.2 RBC 2.83 10*6/uL [...] 4.9 1.0-7.0 Aug 15, 2024 07:20 AM [facility] CBC BLOOD Specimen Type: BLOOD Comment: No clots detected in specimen. Ordering Provider: CASH CLOUD Report Released Date/Time: Aug 12, 2024 01:47 PM Reporting Lab: [address] [address] Performing Lab: [address] [address] WBC 4.9 10*3/uL 3.6-11.2 RBC 2.93 10*6/uL [...] 10*3/uL 2.10-8.00 Aug 15, 2024 04:54 AM [facility] GLUCOSE,BLOOD-poct (STL) BLOOD Specimen Type: BLOOD Comment: Test Performed by: [id number] Meter #: [id number] Ordering Provider: DEIRDRE WILD Report Released Date/Time: Aug 15, 2024 05:21 AM Reporting Lab: [place] [address] Performing Lab: [address] [address] GLUCOSE,BLOOD-poct (STL) 112 mg/dL H 72-99 Aug 14, 2024 08:30 PM [facility] CRP PLASMA Specimen Type: PLASM A No comment entered. Ordering Provider: CASH CLOUD Report Released Date/Time: Aug 12, 2024 10:14 AM Reporting Lab: [place] [id number] Performing Lab: [place] [phone] CRP 0.7 mg/dL H 0-0.5 Aug 14, 2024 08:30 PM [facility] CBC BLOOD Specimen Type: BLOOD No comment entered. Ordering Provider: GILSON OG Report Released Date/Time: Aug 10, 2024 04:01 PM Reporting Lab: [address] [address] Performing Lab: [address] [address] WBC 4.6 10*3/uL 3.6-11.2 RBC 2.83 10*6/uL [...] 10*3/uL 2.10-8.00 Aug 14, 2024 07:54 PM [facility] GLUCOSE,BLOOD-poct (STL) BLOOD Specimen Type: BLOOD Comment: Test Performed by: [id number] Meter #: [id number] Ordering Provider: DEIRDRE WILD Report Released Date/Time: Aug 14, 2024 08:15 PM Reporting Lab: [address] [address] Performing Lab: [address] [address] GLUCOSE,BLOOD-poct (STL) 112 mg/dL H 72-Aug 14, 2024 04:10 PM [facility] GLUCOSE,BLOOD-poct (STL) BLOOD Specimen Type: BLOOD Comment: Test Performed by: [id number] Meter #: [id number] Ordering Provider: DEIRDRE WILD Report Released Date/Time: Aug 14, 2024 04:43 PM Reporting Lab: [address] [address] Performing Lab: [address] [address] GLUCOSE,BLOOD-poct (STL) 115 mg/dL H 72-99 Aug 14, 2024 02:05 PM [facility] COMPREHENSIVE METABOLIC PANEL PLASMA Specimen Type: PLASMA Comment: No hemolysis noted. Ordering Provider: GILSON OG Report Released Date/Time: Aug 14, 2024 06:56 AM Reporting Lab: [address] [address] Performing Lab: [address] [address] CREATININE 0.75 mg/dL 0.7-1.3 UREA NITROGEN 9.3 [...] 98.9 >60 Aug 14, 2024 02:05 PM [facility] CBC BLOOD Specimen Type: BLOOD Comment: No platelet clots or clumping detected. Ordering Provider: GILSON OG Report Released Date/Time: Aug 10, 2024 04:01 PM Reporting Lab: [address] [address] Performing Lab: [address] [address] WBC 4.6 10*3/uL 3.6-11.2 RBC 3.06 10*6/uL [...] 10*3/uL 2.10-8.00 Aug 14, 2024 10:12 AM [facility] GLUCOSE,BLOOD-poct (L) BLOOD Specimen Type: BLOOD Comment: Test Performed by: [id number] Meter #: [id number] Ordering Provider: DEIRDRE WILD Report Released Date/Time: Aug 14, 2024 10:13 AM Reporting Lab: [address] [address] Performing Lab: [address] [address] GLUCOSE,BLOOD-poct (L) 112 mg/dL H 72-99 Aug 14, 2024 09:20 AM [facility] PT/INR NEW (L-MA) PLASMA Specimen Type: PLAS MA No comment entered. Ordering Provider: GILSON OG Report Released Date/Time: Aug 14, 2024 09:06 AM Reporting Lab: [address] [address] Performing Lab: [address] [address] PROTIME 13.6 s H 9.4-12.5 INR VALUE 1.2 {INR} Aug 14, 2024 06:51 AM [facility] CBC BLOOD Specimen Type: BLOOD No comment entered. Ordering Provider: CASH CLOUD Report Released Date/Time: Aug 12, 2024 01:47 PM Reporting Lab: [address] [address] Performing Lab: [address] [address] WBC 3.8 10*3/uL 3.6-11.2 RBC 2.56 10*6/uL [...] 10*3/uL 2.10-8.00 Aug 14, 2024 06:03 AM [facility] GLUCOSE,BLOOD-poct (STL) BLOOD Specimen Type: BLOOD Comment: Test Performed by: [id number] Meter #: [id number] Ordering Provider: DEIRDRE WILD Report Released Date/Time: Aug 14, 2024 06:07 AM Reporting Lab: [address] [address] Performing Lab: [address] [address] GLUCOSE,BLOOD-poct (STL) 114 mg/dL H 72-99 Aug 13, 2024 09:11 PM [facility] GLUCOSE,BLOOD-poct (STL) BLOOD Specimen Type: BLOOD Comment: Test Performed by: [id number] Meter #: [id number] Ordering Provider: DEIRDRE WILD Report Released Date/Time: Aug 13, 2024 09:40 PM Reporting Lab: [address] [address] Performing Lab: [address] [address] GLUCOSE,BLOOD-poct (STL) 160 mg/dL H 72-99 Aug 13, 2024 07:10 PM [facility] COMPREHENSIVE METABOLIC PANEL PLASMA Specimen Type: PLASMA Comment: No hemolysis noted. Ordering Provider: GILSON OG Report Released Date/Time: Aug 14, 2024 07:03 AM Reporting Lab: [address] [address] Performing Lab: [address] [address] CREATININE 0.75 mg/dL 0.7-1.3 UREA NITROGEN 10.3 [...] 98.9 >60 Aug 13, 2024 07:10 PM [facility] CRP PLASMA Specimen Type: PLASM A No comment entered. Ordering Provider: CASH CLOUD Report Released Date/Time: Aug 12, 2024 10:14 AM Reporting Lab: [facility] [address] [place] [address] Performing Lab: [address] [address] CRP 0.7 mg/dL H 0-0.5 Aug 13, 2024 07:10 PM [facility] CBC BLOOD Specimen Type: BLOOD No comment entered. Ordering Provider: GILSON OG Report Released Date/Time: Aug 10, 2024 04:01 PM Reporting Lab: [address] [address] Performing Lab: [address] [address] WBC 5.3 10*3/uL 3.6-11.2 RBC 2.67 10*6/uL [...] 10*3/uL 2.10-8.00 Aug 13, 2024 04:35 PM [facility] GLUCOSE,BLOOD-poct (STL) BLOOD Specimen Type: BLOOD Comment: Test Performed by: [id number] Meter #: [id number] Ordering Provider: DEIRDRE WILD Report Released Date/Time: Aug 13, 2024 05:18 PM Reporting Lab: [address] [address] Performing Lab: [address] [address] GLUCOSE,BLOOD-poct (L) 113 mg/dL H 72-99 Aug 13, 2024 02:36 PM [facility] CBC BLOOD Specimen Type: BLOOD No comment entered. Ordering Provider: GILSON OG Report Released Date/Time: Aug 10, 2024 04:01 PM Reporting Lab: [address] [address] Performing Lab: [address] [address] WBC 5.8 10*3/uL 3.6-11.2 RBC 2.77 10*6/uL [...] 10*3/uL 2.10-8.00 Aug 13, 2024 11:37 AM [facility] GLUCOSE,BLOOD-poct (STL) BLOOD Specimen Type: BLOOD Comment: Test Performed by: [id number] Meter #: [id number] Ordering Provider: DEIRDRE WILD Report Released Date/Time: Aug 13, 2024 11:38 AM Reporting Lab: [address] [address] Performing Lab: [address] [address] GLUCOSE,BLOOD-poct (L) 131 mg/dL H 72-99 Aug 13, 2024 08:06 AM [facility] CBC BLOOD Specimen Type: BLOOD Comment: no clot Ordering Provider: CASH CLOUD Report Released Date/Time: Aug 12, 2024 01:47 PM Reporting Lab: [address] [address] Performing Lab: [address] [address] WBC 3.0 10*3/uL L 3.6-11.2 RBC 2.61 [...] 10*3/uL 2.10-8.00 Aug 13, 2024 04:45 AM [facility] GLUCOSE,BLOOD-poct (STL) BLOOD Specimen Type: BLOOD Comment: Test Performed by: [id number] Meter #: [id number] Ordering Provider: DEIRDRE WILD Report Released Date/Time: Aug 13, 2024 06:18 AM Reporting Lab: [address] Performing Lab: [address] [address] GLUCOSE,BLOOD-poct (STL) 139 mg/dL H 72-99 Aug 12, 2024 10:10 PM [facility] GLUCOSE,BLOOD-poct (STL) BLOOD Specimen Type: BLOOD Comment: Test Performed by: [id number] Meter #: [id number] Ordering Provider: DEIRDRE WILD Report Released Date/Time: Aug 12, 2024 10:50 PM Reporting Lab: [address] [address] Performing Lab: [address] [address] GLUCOSE,BLOOD-poct (STL) 105 mg/dL H 72-99 Aug 12, 2024 08:48 PM [facility] CRP PLASMA Specimen Type: PLASM A No comment entered. Ordering Provider: CASH CLOUD Report Released Date/Time: Aug 12, 2024 10:14 AM Reporting Lab: [address] [address] Performing Lab: [address] [address] CRP 0.6 mg/dL H 0-0.5 Aug 12, 2024 08:48 PM [facility] CBC BLOOD Specimen Type: BLOOD Comment: SEE PREVIOUS DIFFERENTIAL ON 08/12/24 @ 1807 Ordering Provider: GILSON OG Report Released Date/Time: Aug 10, 2024 04:01 PM Reporting Lab: [address] [address] Performing Lab: [address] [address] WBC 5.0 10*3/uL 3.6-11.2 RBC 2.78 10*6/uL [...] 6.5 1.0-7.0 Aug 12, 2024 04:51 PM [facility] GLUCOSE,BLOOD-poct (STL) BLOOD Specimen Type: BLOOD Comment: Test Performed by: [id number] Meter #: [id number] Ordering Provider: DEIRDRE WILD Report Released Date/Time: Aug 12, 2024 05:07 PM Reporting Lab: [address] [address] Performing Lab: [facility] [address] [facility] [address] GLUCOSE,BLOOD-poct (STL) 135 mg/dL H 72-99 Aug 12, 2024 02:33 PM [facility] CBC BLOOD Specimen Type: BLOOD No comment entered. Ordering Provider: GILSON OG Report Released Date/Time: Aug 10, 2024 04:01 PM Reporting Lab: [place] [address] [facility] [address] Performing Lab: [place] [address] [facility] [place] [address] WBC 4.0 10*3/uL 3.6-11.2 RBC 2.56 10*6/uL [...] 10*3/uL 2.10-8.00 Aug 12, 2024 11:51 AM [facility] GLUCOSE,BLOOD-poct (STL) BLOOD Specimen Type: BLOOD Comment: Test Performed by: [id number] Meter #: [id number] Ordering Provider: DEIRDRE WILD Report Released Date/Time: Aug 12, 2024 12:26 PM Reporting Lab: [place] [address] [facility] [place] [address] Performing Lab: [place] [address] [facility] [place] [address] GLUCOSE,BLOOD-poct (STL) 139 mg/dL H 72-99 Aug 12, 2024 07:35 AM [facility] CBC BLOOD Specimen Type: BLOOD Comment: prev diff 08/11/24. Ordering Provider: GILSON OG Report Released Date/Time: Aug 10, 2024 04:01 PM Reporting Lab: [address] [address] Performing Lab: [address] [address] WBC 3.0 10*3/uL L 3.6-11.2 RBC 2.54 [...] 0.00-0. 20 Aug 12, 2024 05:49 AM [facility] GLUCOSE,BLOOD-poct (STL) BLOOD Specimen Type: BLOOD Comment: Test Performed by: [id number] Meter #: [id number] Ordering Provider: DEIRDRE WILD Report Released Date/Time: Aug 12, 2024 05:50 AM Reporting Lab: [address] [address] Performing Lab: [address] [address] GLUCOSE,BLOOD-poct (STL) 112 mg/dL H 72-99 Aug 12, 2024 01:45 AM [facility] CBC BLOOD Specimen Type: BLOOD Comment: SEE PREVIOUS DIFFERENTIAL ON 08/12/24 @ 0239 [facility] Ordering Provider: GILSON OG Report Released Date/Time: Aug 10, 2024 04:01 PM Reporting Lab: [address] [address] Performing Lab: [address] [address] WBC 2.6 10*3/uL L 3.6-11.2 RBC 2.42 [...] 6.4 1.0-7.0 Aug 11, 2024 09:25 PM [facility] CBC BLOOD Specimen Type: BLOOD No comment entered. Ordering Provider: GILSON OG Report Released Date/Time: Aug 10, 2024 04:01 PM Reporting Lab: [address] [address] Performing Lab: [address] [address] WBC 3.6 10*3/uL 3.6-11.2 RBC 2.54 10*6/uL [...] 10*3/uL 2.10-8.00 Aug 11, 2024 09:17 PM [facility] GLUCOSE,BLOOD-poct (STL) BLOOD Specimen Type: BLOOD Comment: Test Performed by: [id number] Meter #: [id number] Ordering Provider: DEIRDRE WILD Report Released Date/Time: Aug 11, 2024 09:21 PM Reporting Lab: [address] [address] Performing Lab: [address] [address] GLUCOSE,BLOOD-poct (STL) 167 mg/dL H 72-99 Aug 11, 2024 04:42 PM [facility] CBC BLOOD Specimen Type: BLOOD No comment entered. Ordering Provider: YVONNE HARRISON Report Released Date/Time: Aug 11, 2024 04:41 PM Reporting Lab: [address] [address] Performing Lab: [address] [address] WBC 4.0 10*3/uL 3.6-11.2 RBC 2.74 10*6/uL [...] 10*3/uL 2.10-8.00 Aug 11, 2024 04:30 PM [facility] GLUCOSE,BLOOD-poct (STL) BLOOD Specimen Type: BLOOD Comment: Test Performed by: [id number] Meter #: [id number] Ordering Provider: DEIRDRE WILD Report Released Date/Time: Aug 11, 2024 06:06 PM Reporting Lab: [address] [address] Performing Lab: [place] [address] [facility] [address] GLUCOSE,BLOOD-poct (STL) 95 mg/dL 72-99 Aug 11, 2024 11:08 AM [facility] GLUCOSE,BLOOD-poct (STL) BLOOD Specimen Type: BLOOD Comment: Test Performed by: [id number] Meter #: [id number] Ordering Provider: DEIRDRE WILD Report Released Date/Time: Aug 11, 2024 11:10 AM Reporting Lab: [address] [address] Performing Lab: [address] [address] GLUCOSE,BLOOD-poct (L) 117 mg/dL H 72-99 Aug 11, 2024 06:00 AM [facility] IRON/TIBC PROFILE SERUM Specimen Type: SERUM No comment entered. Ordering Provider: GILSON OG Report Released Date/Time: Aug 10, 2024 04:02 PM Reporting Lab: [address] [address] Performing Lab: [address] [address] TIBC 263 ug/dL 250-450 TRANSFERRIN 210 mg/dL 163-344 IRON SATURATION 8 L 20-50 IRON 21 ug/dL L 65-175 Aug 11, 2024 06:00 AM [facility] APTT PLASMA Specimen Type: PLASM A No comment entered. Ordering Provider: GILSON OG Report Released Date/Time: Aug 10, 2024 06:20 PM Reporting Lab: [address] [address] Performing Lab: [address] [address] APTT 25.5 s L 26.7-39.9 Aug 11, 2024 06:00 AM [facility] PT/INR NEW (STL-MA) PLASMA Specimen Type: PLAS MA No comment entered. Ordering Provider: GILSON OG Report Released Date/Time: Aug 10, 2024 06:20 PM Reporting Lab: [address] [address] Performing Lab: [address] [address] PROTIME 15.5 s H 9.4-12.5 INR VALUE 1.4 {INR} Aug 11, 2024 06:00 AM [facility] HEPATIC FUNTION PANEL (STL) PLASMA Specimen Ty pe: PLASMA No comment entered. Ordering Provider: GILSON OG Report Released Date/Time: Aug 10, 2024 04:02 PM Reporting Lab: [address] [address] Performing Lab: [address] [address] PROTEIN 5.4 g/dL L 6-8.6 ALBUMIN 2.6 g/dL L 3.4-5 TOTAL BILIRUBIN 0.8 mg/dL 0.2-1.2 ALKALINE PHOSPHATASE 72 U/L 40-150 AST/SGOT 28 U/L 5-34 ALT/SGPT 10 U/L 8-40 CONJ. BILIRUBIN 0.4 mg/dL 0-0.5 Aug 11, 2024 06:00 AM [facility] CBC BLOOD Specimen Type: BLOOD No comment entered. Ordering Provider: GILSON OG Report Released Date/Time: Aug 10, 2024 04:01 PM Reporting Lab: [address] [address] Performing Lab: [address] [address] WBC 2.4 10*3/uL L 3.6-11.2 RBC 2.42 [...] L 2.10-8.00 Aug 10, 2024 09:00 PM [facility] BASIC METABOLIC PANEL PLASMA Specimen Type: PL ASMA Comment: No hemolysis noted. Ordering Provider: GILSON GO Report Released Date/Time: Aug 10, 2024 04:01 PM Reporting Lab: [address] [address] Performing Lab: [address] [address] CREATININE 0.84 mg/dL 0.7-1.3 UREA NITROGEN 16.8 mg/dL 9.0-25.0 GLUCOSE 104 mg/dL H 72-99 SODIUM 133 meq/L L 136-145 POTASSIUM 3.5 meq/L 3.5-5 CHLORIDE 103 meq/L 98-107 CARBON DIOXIDE 23 meq/L 22-31 CALCIUM 8.4 mg/dL 8.4-10.4 EGFR (CKD-EPI 2020) 95.6 >60 Aug 10, 2024 09:00 PM [facility] CBC BLOOD Specimen Type: BLOOD No comment entered. Ordering Provider: GILSON OG Report Released Date/Time: Aug 10, 2024 04:01 PM Reporting Lab: [address] [address] Performing Lab: [address] [place] [address] WBC 4.3 10*3/uL 3.6-11.2 RBC 2.22 10*6/uL [...] 10*3/uL 2.10-8.00 Aug 10, 2024 06:30 PM [facility] MRSA SURVL NARES DNA NARES Specimen [...] 10, 2024 04:01 PM Reporting Lab: [address] [address] Performing Lab: [facility] [address] [place] [address] MRSA SURVL NARES DNA Negative Negative Aug 10, 2024 06:02 PM [facility] GLUCOSE,BLOOD-poct (L) BLOOD Specimen Type: BLOOD Comment: Test Performed by: [id number] Meter #: [id number] Ordering Provider: YASIR SANZ MD Report Released Date/Time: Aug 10, 2024 06:04 PM Reporting Lab: [place] [address] [place] [address] Performing Lab: [place] [address] [place] [address] GLUCOSE,BLOOD-poct (L) 94 mg/dL 72-99 Aug 10, 2024 02:12 PM [facility] APTT PLASMA Specimen Type: PLASM A No comment entered. Ordering Provider: YASIR SANZ MD Report Released Date/Time: Aug 10, 2024 02:00 PM Reporting Lab: [place] [address] [place] [address] Performing Lab: [place] [address] [place] [address] APTT 20.1 s L 26.7-39.9 Aug 10, 2024 02:12 PM [facility] PT/INR NEW (STL-MA) PLASMA Specimen Type: PLAS MA No comment entered. Ordering Provider: YASIR SANZ MD Report Released Date/Time: Aug 10, 2024 02:00 PM Reporting Lab: [place] [address] [facility] [place] [address] Performing Lab: [address] [address] PROTIME 13.8 s H 9.4-12.5 INR VALUE 1.2 {INR} Aug 10, 2024 11:30 AM [facility] TSH W/ REFLEX FT4 (L) PLASMA Specimen Type: PLASMA No comment entered. Ordering Provider: TONY SIMMONS Report Released Date/Time: Aug 02, 2024 12:33 PM Reporting Lab: [address] [address] Performing Lab: [address] [address] TSH 3.991 u[IU]/mL 0.47-5 Aug 10, 2024 11:30 AM [facility] COMPREHENSIVE METABOLIC PANEL PLASMA Specimen Type: PLASMA Comment: No hemolysis noted. Ordering Provider: TONY SIMMONS Report Released Date/Time: Aug 02, 2024 12:33 PM Reporting Lab: [address] [address] Performing Lab: [address] [address] CREATININE 0.82 mg/dL 0.7-1.3 UREA NITROGEN 21.7 [...] 96.3 >60 Aug 10, 2024 11:30 AM [facility] [facility] CBC BLOOD Specimen Type: BLOOD No comment entered. Ordering Provider: TONY SIMMONS Report Released Date/Time: Aug 02, 2024 12:33 PM Reporting Lab: [address] [address] Performing Lab: [address] [address] WBC 7.4 10*3/uL 3.6-11.2 RBC 2.81 10*6/uL [...] 20 Aug 02, 2024 11:53 AM [facility] PROTEIN ELECTROPHORESIS BLOOD SERUM Specimen Type: SERUM Comment: Reference Range: None Detected NOTE: THIS RESULT IS FLAGGED ABNORMAL Evaluation reveals a restricted band (M-spike) migrating in the gamma globulin region. If not already requested, Immunofixation should be considered. Test Performed by [facility], [facility], [address] [place] [address] Tristin Iyer M.D., Ph.D., Director of Laboratories , [place] [id number] PREVIOUS SUGAR: IgG [place] Ordering Provider: TONY SIMMONS Report Released Date/Time: Jul 13, 2024 01:49 PM Reporting Lab: [facility] [address] [place] [address] Performing Lab: [address] ALPHA-1 GLOBULIN(SO-PB-STL) 0.4 g/dL H 0.2 [...] g/dL H Aug 02, 2024 11:53 AM [facility] IGG (STL) PLASMA Specimen Type: PLASM A Comment: No hemolysis noted. Ordering Provider: TONY SIMMONS Report Released Date/Time: Jul 13, 2024 01:49 PM Reporting Lab: [address] [address] Performing Lab: [place] [address] [facility] [place] [address] IGG (STL) 1898 mg/dL H 540-1822 Aug 02, 2024 11:53 AM [facility] IGA (STL) PLASMA Specimen Type: PLASM A Comment: No hemolysis noted. Ordering Provider: TONY SIMMONS Report Released Date/Time: Jul 13, 2024 01:49 PM Reporting Lab: [place] [address] [facility] [place] [place] [address] Performing Lab: [address] [address] IGA (STL) 113 mg/dL 63-484 Aug 02, 2024 11:53 AM [facility] IGM (STL) PLASMA Specimen Type: PLASM A Comment: No hemolysis noted. Ordering Provider: TONY SIMMONS Report Released Date/Time: Jul 13, 2024 01:49 PM Reporting Lab: [address] [address] Performing Lab: [address] [address] IGM (STL) 104 mg/dL 22-240 Aug 02, 2024 11:53 AM [facility] TSH W/ REFLEX FT4 (STL) PLASMA Specimen Type: PLASMA No comment entered. Ordering Provider: TONY SIMMONS Report Released Date/Time: Jul 13, 2024 01:49 PM Reporting Lab: [address] [address] Performing Lab: [address] [address] TSH 2.182 u[IU]/mL 0.47-5 Aug 02, 2024 11:53 AM [facility] KAPPA/LAMBDA FREE LC PANEL (STL-PB) SERUM Spe cimen Type: SERUM No comment entered. Ordering Provider: TONY SIMMONS Report Released Date/Time: Jul 13, 2024 01:49 PM Reporting Lab: [address] [address] Performing Lab: [address] [address] KAPPA FREE LC (STL) 102.7 mg/L H 2.4-20.7 LAMBDA FREE LC (STL) 32.2 mg/L H 4.2-27.7 KAPPA/LAMBDA RATIO (STL) 3.19 H 0.22-1. 74 Aug 02, 2024 11:53 AM [facility] COMPREHENSIVE METABOLIC PANEL PLASMA Specimen Type: PLASMA Comment: No hemolysis noted. Ordering Provider: TONY SIMMONS Report Released Date/Time: Jul 13, 2024 01:49 PM Reporting Lab: [address] [address] Performing Lab: [address] [address] CREATININE 0.82 mg/dL 0.7-1.3 UREA NITROGEN 12.2 [...] 96.3 >60 Aug 02, 2024 11:53 AM [facility] CBC BLOOD Specimen Type: BLOOD Comment: No Clots in specimen Ordering Provider: TONY SIMMONS Report Released Date/Time: Jul 13, 2024 01:49 PM Reporting Lab: [address] [address] Performing Lab: [address] [address] WBC 2.2 10*3/uL L 3.6-11.2 RBC 3.44 [...] L 2.10-8.00 Aug 01, 2024 10:10 AM [facility] GLUCOSE,BLOOD-poct (STL) BLOOD Specimen Type: BLOOD Comment: Test Performed by: [id number] Meter #: [id number] Ordering Provider: SUKHJINDER CHAHAL Report Released Date/Time: Aug 01, 2024 10:17 AM Reporting Lab: [address] [address] Performing Lab: [address] [address] GLUCOSE,BLOOD-poct (STL) 101 mg/dL H 72-99 Jul 27, 2024 01:54 PM [facility] BRAIN NATRIURETIC PEPTIDE PLASMA Specimen Type : PLASMA No comment entered. Ordering Provider: ELIZABETH COATES Report Released Date/Time: Jul 27, 2024 03:39 PM Reporting Lab: [place] [address] [facility] [place] [address] Performing Lab: [address] [address] BRAIN NATRIURETIC PEPTIDE 257.2 pg/mL H 0- 100 Jul 27, 2024 01:54 PM [facility] TROPONIN I PLASMA Specimen Type: PLASM A Comment: No hemolysis noted. Ordering Provider: ELIZABETH COATES Report Released Date/Time: Jul 27, 2024 03:39 PM Reporting Lab: [address] [address] Performing Lab: [address] [address] TROPONIN I 0.011 ng/mL 0-0.033 Jul 27, 2024 01:54 PM [facility] COMPREHENSIVE METABOLIC PANEL PLASMA Specimen Type: PLASMA Comment: No hemolysis noted. Ordering Provider: ELIZABETH COATES Report Released Date/Time: Jul 27, 2024 03:39 PM Reporting Lab: [facility] [address] [address] Performing Lab: [address] [address] CREATININE 0.70 mg/dL 0.7-1.3 UREA NITROGEN 7.4 [...] 101.0 >60 Jul 27, 2024 01:54 PM [facility] CBC BLOOD Specimen Type: BLOOD No comment entered. Ordering Provider: ELIZABETH COATES Report Released Date/Time: Jul 27, 2024 03:39 PM Reporting Lab: [address] [address] Performing Lab: [address] [address] WBC 3.2 10*3/uL L 3.6-11.2 RBC 3.12 [...] 10*3/uL 2.10-8.00 Jul 21, 2024 02:00 PM [facility] B12 SERUM Specimen Type: SERUM No comment entered. Ordering Provider: JORJE DENSON Report Released Date/Time: Jul 21, 2024 12:54 PM Reporting Lab: [address] [address] Performing Lab: [address] [address] B12 1584 pg/mL H 213-816 Jul 21, 2024 02:00 PM [facility] FOLATE (L-MA) SERUM Specimen Type: SERUM No comment entered. Ordering Provider: JORJE DENSON Report Released Date/Time: Jul 21, 2024 12:54 PM Reporting Lab: [address] [address] Performing Lab: [address] [address] FOLATE (L-MA) 9.1 ng/mL 7-20 Jul 21, 2024 02:00 PM [facility] IRON/TIBC PROFILE SERUM Specimen Type: SERUM No comment entered. Ordering Provider: JORJE DENSON Report Released Date/Time: Jul 21, 2024 12:54 PM Reporting Lab: [address] [address] Performing Lab: [address] [address] TIBC 243 ug/dL L 250-450 TRANSFERRIN 194 mg/dL 163-344 IRON SATURATION 20 20-50 IRON 49 ug/dL L 65-175 Jul 21, 2024 02:00 PM [facility] CBC BLOOD Specimen Type: BLOOD Comment: Manual differential performed 07/20/2024 No clots Ordering Provider: JORJE DENSON Report Released Date/Time: Jul 21, 2024 12:54 PM Reporting Lab: [address] [address] Performing Lab: [address] [address] WBC 5.6 10*3/uL 3.6-11.2 RBC 2.87 10*6/uL [...] H 1.0-7.0 Jul 20, 2024 08:55 PM [facility] PT/INR NEW (STL-MA) PLASMA Specimen Type: PLAS MA No comment entered. Ordering Provider: AURA ZACARIAS Report Released Date/Time: Jul 18, 2024 01:30 PM Reporting Lab: [address] [address] Performing Lab: [address] [address] PROTIME 12.8 s H 9.4-12.5 INR VALUE 1.1 {INR} Jul 20, 2024 08:55 PM [facility] BASIC METABOLIC PANEL PLASMA Specimen Type: PL ASMA Comment: No hemolysis noted. Ordering Provider: AURA ZACARIAS Report Released Date/Time: Jul 18, 2024 01:30 PM Reporting Lab: [address] [address] Performing Lab: [address] [address] CREATININE 0.74 mg/dL 0.7-1.3 UREA NITROGEN 15.1 mg/dL 9.0-25.0 GLUCOSE 121 mg/dL H 72-99 SODIUM 130 meq/L L 136-145 POTASSIUM 3.7 meq/L 3.5-5 CHLORIDE 100 meq/L 98-107 CARBON DIOXIDE 20 meq/L L 22-31 CALCIUM 8.5 mg/dL 8.4-10.4 EGFR (CKD-EPI 2020) 99.3 >60 Jul 20, 2024 08:55 PM [facility] CBC BLOOD Specimen Type: BLOOD No comment entered. Ordering Provider: AURA ZACARIAS Report Released Date/Time: Jul 18, 2024 01:30 PM Reporting Lab: [address] [address] Performing Lab: [address] [address] WBC 5.1 10*3/uL 3.6-11.2 RBC 2.90 10*6/uL [...] 10*3/uL 2.10-8.00 Jul 20, 2024 01:13 PM [facility] CBC BLOOD Specimen Type: BLOOD No comment entered. Ordering Provider: AURA ZACARIAS Report Released Date/Time: Jul 18, 2024 01:30 PM Reporting Lab: [place] [address] [facility] [place] [address] Performing Lab: [address] [address] WBC 5.6 10*3/uL 3.6-11.2 RBC 3.11 10*6/uL [...] 10*3/uL 2.10-8.00 Jul 19, 2024 06:42 AM [facility] PT/INR NEW (STL-MA) PLASMA Specimen Type: PLAS MA No comment entered. Ordering Provider: AURA ZACARIAS Report Released Date/Time: Jul 18, 2024 01:30 PM Reporting Lab: [facility] [address] [place] [address] Performing Lab: [address] [address] PROTIME 16.4 s H 9.4-12.5 INR VALUE 1.5 {INR} Jul 19, 2024 06:42 AM [facility] BASIC METABOLIC PANEL PLASMA Specimen Type: PL ASMA Comment: No hemolysis noted. Ordering Provider: AURA ZACARIAS Report Released Date/Time: Jul 18, 2024 01:30 PM Reporting Lab: [address] [address] Performing Lab: [address] [address] CREATININE 0.94 mg/dL 0.7-1.3 UREA NITROGEN 23.8 mg/dL 9.0-25.0 GLUCOSE 87 mg/dL 72-99 SODIUM 129 meq/L L 136-145 POTASSIUM 3.4 meq/L L 3.5-5 CHLORIDE 102 meq/L 98-107 CARBON DIOXIDE 20 meq/L L 22-31 CALCIUM 8.1 mg/dL L 8.4-10.4 EGFR (CKD-EPI 2020) 88.9 >60 Jul 19, 2024 06:42 AM [facility] CBC BLOOD Specimen Type: BLOOD No comment entered. Ordering Provider: AURA ZACARIAS Report Released Date/Time: Jul 18, 2024 01:30 PM Reporting Lab: [address] [address] Performing Lab: [address] [address] WBC 5.1 10*3/uL 3.6-11.2 RBC 2.45 10*6/uL [...] H 1.0-7.0 Jul 18, 2024 08:51 PM [facility] CBC BLOOD Specimen Type: BLOOD No comment entered. Ordering Provider: AURA ZACARIAS Report Released Date/Time: Jul 18, 2024 01:30 PM Reporting Lab: [address] [address] Performing Lab: [address] [address] WBC 6.2 10*3/uL 3.6-11.2 RBC 2.44 10*6/uL [...] 10*3/uL 2.10-8.00 Jul 18, 2024 04:19 PM [facility] CBC BLOOD Specimen Type: BLOOD No comment entered. Ordering Provider: AURA ZACARIAS Report Released Date/Time: Jul 18, 2024 01:30 PM Reporting Lab: [address] [address] Performing Lab: [address] [address] WBC 6.1 10*3/uL 3.6-11.2 RBC 2.57 10*6/uL [...] 10*3/uL 2.10-8.00 Jul 18, 2024 06:32 AM [facility] LACTIC ACID (STL-PB) PLASMA Specimen Type: NEIL SMA No comment entered. Ordering Provider: CAMDEN PATTON Report Released Date/Time: Jul 17, 2024 07:38 PM Reporting Lab: [place] [address] Performing Lab: [address] [address] LACTIC ACID (STL-PB) 1.3 mmol/L 0.5-2.0 Jul 18, 2024 06:32 AM [facility] PT/INR NEW (L-MA) PLASMA Specimen Type: PLAS MA No comment entered. Ordering Provider: CAMDEN PATTON Report Released Date/Time: Jul 17, 2024 07:38 PM Reporting Lab: [place] [address] Performing Lab: [place] [address] PROTIME 19.1 s H 9.4-12.5 INR VALUE 1.7 {INR} Jul 18, 2024 06:32 AM [facility] CBC BLOOD Specimen Type: BLOOD Comment: HGB Called to : Dr. Posadas MOD at: 0657 on: 07/18/24 by: [email or web address] Critical Verbal Readback Performed Ordering Provider: CAMDEN PATTON Report Released Date/Time: Jul 17, 2024 07:38 PM Reporting Lab: [place] [address] Performing Lab: [place] [address] WBC 7.0 10*3/uL 3.6-11.2 RBC 2.04 10*6/uL [...] 10*3/uL 2.10-8.00 Jul 18, 2024 06:32 AM [facility] VANCOMYCIN (STL) PLASMA Specimen Type: PLASM A No comment entered. Ordering Provider: CAMDEN PATTON Report Released Date/Time: Jul 17, 2024 07:38 PM Reporting Lab: [address] [address] Performing Lab: [address] [address] VANCOMYCIN (STL) 5.0 ug/mL L 10-15 Jul 18, 2024 06:32 AM [facility] MAGNESIUM PLASMA Specimen Type: PLASM A Comment: No hemolysis noted. Ordering Provider: CAMDEN PATTON Report Released Date/Time: Jul 17, 2024 07:38 PM Reporting Lab: [place] [address] [facility] [place] [address] Performing Lab: [address] [address] MAGNESIUM 1.5 mg/dL L 1.6-2.6 Jul 18, 2024 06:32 AM [facility] PHOSPHOROUS PLASMA Specimen Type: PLASM A Comment: No hemolysis noted. Ordering Provider: CAMDEN PATTON Report Released Date/Time: Jul 17, 2024 07:38 PM Reporting Lab: [place] [address] [facility] [place] [address] Performing Lab: [place] [address] [facility] [place] [address] PHOSPHOROUS 2.2 mg/dL L 2.3-4.7 Jul 18, 2024 06:32 AM [facility] COMPREHENSIVE METABOLIC PANEL PLASMA Specimen Type: PLASMA Comment: No hemolysis noted. Ordering Provider: CAMDEN PATTON Report Released Date/Time: Jul 17, 2024 07:38 PM Reporting Lab: [address] [address] Performing Lab: [address] [address] CREATININE 1.08 mg/dL 0.7-1.3 UREA NITROGEN 40.5 [...] 75.2 >60 Jul 18, 2024 12:05 AM [facility] HGB,HCT,PLT BLOOD Specimen Type: BLOOD No comment entered. Ordering Provider: ROSA VARGAS Report Released Date/Time: Jul 17, 2024 09:07 PM Reporting Lab: [address] [address] Performing Lab: [address] [address] HGB 7.3 g/dL L 13.1-16.8 HCT 21.0 L 38.2-48.4 PLT 64 10*3/uL L 150-400 Jul 17, 2024 07:45 PM [facility] MRSA SURVL NARES DNA NARES Specimen [...] 17, 2024 07:38 PM Reporting Lab: [address] [address] Performing Lab: [address] [address] MRSA SURVL NARES DNA Negative Negative Jul 17, 2024 07:36 PM [facility] GLUCOSE,BLOOD-poct ([facility]) BLOOD Specimen Type: BLOOD Comment: Test Performed by: [id number] Meter #: [id number] Ordering Provider: CAMDEN PATTON Report Released Date/Time: Jul 17, 2024 07:48 PM Reporting Lab: [address] [address] Performing Lab: [address] [address] GLUCOSE,BLOOD-poct (L) 98 mg/dL 72-99 Jul 17, 2024 07:35 PM [facility] BLOOD GAS PANEL ABG ([facility]) VENOUS BLOOD Specimen Type : VENOUS BLOOD Comment: normalcy status - Below absolute low-off instrument scale Test Performed by: [id number] Meter #: [id number] Ordering Provider: CAMDEN PATTON Report Released Date/Time: Jul 17, 2024 07:37 PM Reporting Lab: [address] [address] Performing Lab: [address] [address] GEM PH 7.39 7.31-7.41 GEM PCO2 31 [...] TEMP 37.0 Jul 17, 2024 07:10 PM [facility] URINALYSIS W/ CX REFLEX (STL-PB) URINE Specim en Type: URINE No comment entered. Ordering Provider: CASEY BOONE Report Released Date/Time: Jul 17, 2024 04:24 PM Reporting Lab: [address] [address] Performing Lab: [address] [address] URINE COLOR Light-Yellow Yellow U.BILIRUBIN Negative mg/dL Negative U.PH 6.0 5.0-8.0 APPEARANCE Clear Clear U.NITRITE Negative mg/dL Negative URN.GLUCOSE Normal mg/dL Negative URN.PROTEIN Negative mg/dL URN.UROBILINOGEN Normal mg/dL Normal URN.BLOOD Negative mg/dL Negative-Trace URN.KETONES Trace mg/dL Negative-Trace URN.LEUK.EST. Negative mg/dL Negative-Tr april URN.SPECIFIC GRAVITY 1.029 Jul 17, 2024 06:25 PM [facility] HAPTOGLOBIN (STL) PLASMA Specimen Type: PLASM A No comment entered. Ordering Provider: CASEY BOONE Report Released Date/Time: Jul 17, 2024 06:13 PM Reporting Lab: [address] [address] Performing Lab: [address] [address] HAPTOGLOBIN (STL) 93 mg/dL 44-215 Jul 17, 2024 06:25 PM [facility] RETICULOCYTE PANEL BLOOD Specimen Type: BLOOD No comment entered. Ordering Provider: CASEY BOONE Report Released Date/Time: Jul 17, 2024 06:13 PM Reporting Lab: [address] [address] Performing Lab: [address] [address] RETIC RATIO 7.35 H 0.50-2.30 IRF 39.7 H 2.3-13.4 RETICULOCYTE HEMOGLOBIN EQUIVALENT 35.8 pg 28.2-36.6 RETIC COUNT,ABS 0.129 10*6/uL H 0.022-0.10 1 Jul 17, 2024 06:25 PM [facility] LDH PLASMA Specimen Type: PLASM A No comment entered. Ordering Provider: CASEY BOONE Report Released Date/Time: Jul 17, 2024 06:13 PM Reporting Lab: [address] [address] Performing Lab: [address] [address] LDH 305 U/L H 125-243 Jul 17, 2024 06:25 PM [facility] CBC BLOOD Specimen Type: BLOOD Comment: HGB Called to : Watson White at: [id number] on:[id number] by: [facility] Critical Verbal Readback Performed Ordering Provider: CAMDEN PATTON Report Released Date/Time: Jul 17, 2024 07:09 PM Reporting Lab: [address] [address] Performing Lab: [address] [address] WBC 27.6 10*3/uL H 3.6-11.2 RBC 1.76 [...] H 2.10-8.00 Jul 17, 2024 04:59 PM [facility] BLOOD GAS PANEL ABG (STL) VENOUS BLOOD Specimen Type : VENOUS BLOOD Comment: Test Performed by: [id number] Meter #: [id number] Ordering Provider: CASEY BOONE Report Released Date/Time: Jul 17, 2024 05:00 PM Reporting Lab: [address] [address] Performing Lab: [address] [address] GEM PH 7.39 7.31-7.41 GEM PCO2 33 [...] TEMP 37.0 Jul 17, 2024 04:25 PM [facility] MAGNESIUM PLASMA Specimen Type: PLASM A Comment: No hemolysis noted. Ordering Provider: CASEY BOONE Report Released Date/Time: Jul 17, 2024 04:24 PM Reporting Lab: [place] [address] [facility] [place] [address] Performing Lab: [address] [address] MAGNESIUM 1.4 mg/dL L 1.6-2.6 Jul 17, 2024 04:25 PM [facility] PT/INR NEW ([facility]) PLASMA Specimen Type: PLAS MA No comment entered. Ordering Provider: CASEY BOONE Report Released Date/Time: Jul 17, 2024 04:24 PM Reporting Lab: [address] [address] Performing Lab: [address] [address] PROTIME 25.3 s H 9.4-12.5 INR VALUE 2.3 {INR} Jul 17, 2024 04:25 PM [facility] COVID-19 DIAGNOSTIC (FLU/RSV)(STL) NASOPHARYNX Spec imen [...] 17, 2024 04:24 PM Reporting Lab: [address] [address] Performing Lab: [address] [address] INFLUENZA A Negative Negative INFLUENZA B Negative Negative COVID-19 (STL-PB) Not Detected Not Detec nate RSV (Cepheid) NEGATIVE Negative Jul 17, 2024 04:25 PM [facility] COMPREHENSIVE METABOLIC PANEL PLASMA Specimen Type: PLASMA Comment: No hemolysis noted. Ordering Provider: CASEY BOONE Report Released Date/Time: Jul 17, 2024 04:24 PM Reporting Lab: [address] [address] Performing Lab: [address] [address] CREATININE 1.25 mg/dL 0.7-1.3 UREA NITROGEN 47.0 [...] 63.1 >60 Jul 17, 2024 04:25 PM [facility] CBC BLOOD Specimen Type: BLOOD No comment entered. Ordering Provider: CASEY BOONE Report Released Date/Time: Jul 17, 2024 04:24 PM Reporting Lab: [address] [address] Performing Lab: [address] [address] WBC 42.4 10*3/uL H 3.6-11.2 RBC 2.20 [...] H 2.10-8.00 Jul 13, 2024 12:39 PM [facility] PHOSPHOROUS PLASMA Specimen Type: PLASM A Comment: No hemolysis noted. Ordering Provider: TONY SIMMONS Report Released Date/Time: Jun 07, 2024 01:01 PM Reporting Lab: [address] [address] Performing Lab: [address] [address] PHOSPHOROUS 2.4 mg/dL 2.3-4.7 Jul 13, 2024 12:39 PM [facility] TSH W/ REFLEX FT4 (STL) PLASMA Specimen Type: PLASMA No comment entered. Ordering Provider: TONY SIMMONS Report Released Date/Time: Jun 07, 2024 01:01 PM Reporting Lab: [facility] [address] [place] [address] Performing Lab: [address] [address] TSH 1.431 u[IU]/mL 0.47-5 Jul 13, 2024 12:39 PM [facility] MAGNESIUM PLASMA Specimen Type: PLASM A Comment: No hemolysis noted. Ordering Provider: TONY SIMMONS Report Released Date/Time: Jun 07, 2024 01:01 PM Reporting Lab: [address] [address] Performing Lab: [address] [address] MAGNESIUM 2.0 mg/dL 1.6-2.6 Jul 13, 2024 12:39 PM [facility] COMPREHENSIVE METABOLIC PANEL PLASMA Specimen Type: PLASMA Comment: No hemolysis noted. Ordering Provider: TONY SIMMONS Report Released Date/Time: Jun 07, 2024 01:01 PM Reporting Lab: [address] [address] Performing Lab: [address] [address] CREATININE 0.75 mg/dL 0.7-1.3 UREA NITROGEN 21.3 [...] 98.9 >60 Jul 13, 2024 12:39 PM [facility] CBC BLOOD Specimen Type: BLOOD Comment: no clot Ordering Provider: TONY SIMMONS Report Released Date/Time: Jun 07, 2024 01:01 PM Reporting Lab: [address] [address] Performing Lab: [address] [address] WBC 3.0 10*3/uL L 3.6-11.2 RBC 3.83 [...] 10*3/uL 2.10-8.00 Jul 13, 2024 12:38 PM [facility] ALPHA-FETOPROTEIN(STL-PB) SERUM Specimen Type : SERUM No comment entered. Ordering Provider: CRYSTAL MASSEY Report Released Date/Time: Jul 04, 2024 03:26 PM Reporting Lab: [address] [address] Performing Lab: [address] [address] ALPHA-FETOPROTEIN(STL-PB) 16.86 ng/mL H 1- 8.78 Jul 13, 2024 12:37 PM [facility] CARBOHYDRATE Ag SERUM Specimen Type: SERUM Comment: REFERENCE RANGE: <34 U/mL This test was performed using the Siemens chemiluminescent method. Values obtained from different assay methods cannot be used inter- changeably. CA 19-9 levels, regardless of value, should not be interpreted as absolute evidence of the presence or absence of disease. Test Performed by [facility], [address] [place] [address] Tristin Iyer M.D., Ph.D., Director of Laboratories , [facility] [id number] Ordering Provider: CRYSTAL MASSEY Report Released Date/Time: Jul 04, 2024 03:28 PM Reporting Lab: [facility] [address] [facility] [id number] Performing Lab: [facility] [address] [facility] CARBOHYDRATE Ag 61 H SEE BELOW Vital Signs: All taken on the encounter date This section contains inpatient and outpatient Vital Signs collected on the date of the Encounter. Date/Time Temperature Pulse Blood Pressure Respiratory Rate SP02 Pain Height Weight Body Mass Index Source Jul 18, 2024 09:34 PM 5 [facility] Social History: Smoking Status (Most current) and Tobacco Use (All prior to encounter date) This section includes the most current, and the historical, smoking and tobacco- related health factors from the [place] facility where the Encounter took place. Current Smoking Status This section includes the most current smoking, or tobacco-related health factor, from the [place] facility where the Encounter took place. Date/Time Current Smoking Status Comment Facil ity Jul 17, 2024 04:02 PM [facility] ADMIT TOBACCO SCREEN NO [facility] Tobacco Use History This section includes a history of the smoking, or tobacco-related health factors, that were collected on or before the date of the Encounter. The data comes from the [place] facility where the Encounter took place. Date/Time Smoking Status/Tobacco Use Comment F acility Jan 20, 2023 03:49 PM VA-TOBACCO FORMER USER [facility] Jan 20, 2023 03:49 PM VA-TOBACCO QUIT 15 YRS OR MORE [facility] Feb 06, 2021 04:28 PM VA-TOBACCO FORMER USER [facility] Feb 06, 2021 04:28 PM VA-TOBACCO QUIT 15 YRS OR MORE [facility] Radiology Reports: +/- 30 days of the [...] the Encounter. The data comes from all [facility] facilities. Date/Time Radiology Report Provider Source Aug 10, 2024 02:[address] ABD PEL W/CONT & 3D: CARINEABRAHAM MEJIA [id number] [id number] M Exm Date: AUG 10, 2024@14:33 Req Phys: YASIR SANZ MD Pat Loc: [facility]PT 2ND SHIFT (R Img Loc: [facility]AGING Service: [address] [address] (Case [id number] COMPLETE) CT ABDOMEN AND PELVIS W/CONTRAST (CT Detailed) CPT:63871 Contrast Media : Non-ionic Iodinated Reason for Study: Abdominal pain, vomiting Clinical History: Responsible Attending: Svetlana Attending Contact Number: [id number] Resident Contact Number: Abdominal pain, vomiting Allergies listed in CPRS chart: Patient has answered NKA Creatinine:CREATININE 0.82 mg/dL 08/10/2024 11:30 /eGFR: STL EGFR (within one year). CREATININE 0.82 mg/dL (08/10/24 11:30) Wt: 152.1 lb [68.99 kg] (08/10/2024 11:31) History of: Renal failure, chronic or acute renal disease: NO Report Status: Verified Date Reported: AUG 10, 2024 Date Verified: AUG 10, 2024 [employer]inger E-Sig:/ES/PETROS MCCORD Report: Case [id number]. CT ABDOMEN AND PELVIS W/CONTRAST. Gastrointestinal contrast: [...] inguinal hernias. Dictated by Kenneth Albright DO (memory care program resident). I, Petros Mccord, have reviewed the images and report and concur with these findings. Primary Interpreting Staff: PETROS MCCORD MD (Hog Ringer) Primary Interpreting Resident: KENNETH ALBRIGHT, Weatherization Coordinator /PETROS REESE [facility] Aug 01, 2024 10:20 AM PET/CT TUMOR IMAGING (SKULL TO MID-THIGH)-P: ABRAHAM HAWK [id number] -1955 M Exm Date: AUG 01, 2024@10:20 Req Phys: TONY SIMMONS Loc: [facility]-ONCOLOGY [facility] (Req'g Loc) Im Loc: -PET-CT Service: [address] [address] (Case [id number] COMPLETE) PET/CT TUMOR SKULL BASE TO MID-T([place] Detailed) CPT:25674 CPT Modifiers : PS PET TUMOR SUBSQ TX STRATEGY Reason for Study: Nasopharyngeal cancer (Case [id number] COMPLETE) F-18 FLUORODEOXYGLUCOSE (FDG),PER(NM Detailed) CPT:A9552 Clinical History: Report Status: Verified Date Reported: AUG 01, 2024 Date Verified: AUG 01, 2024 Hog Ringer E-Sig:/LOLY/NATASHA LEIJA Report: PATIENT NAME: ABRAHAM HAWK. CASE #: [id number], [id number]. PROCEDURE: PET/CT study Indication: Nasopharyngeal cancer HISTORY: [...] lytic osseous lesion is noted within the [id number]. Impression: 1. The previous sites of FDG [...] NEEDED Primary Interpreting Staff: NATASHA LEIJA MD (Hog Ringer) /PFT NATASHA LEIJA [facility] Jul 27, 2024 03:41 PM CHEST PORTABLE: ABRAHAM HAWK [id number] -1955 M Exm Date: JUL 27, 2024@15:41 Req Phys: ELIZABETH COATES Pat Loc: [facility]-EMERGENCY DEPT 2ND SHIFT (R Img Loc: [facility]-MAIN RADIOLOGY SUITE Service: [facility], [facility] [address] [place] [address] (Case [id number] COMPLETE) CHEST PORTABLE (RAD Detailed) CPT:55439 Proc Modifiers : Portable Reason for Study: sob Clinical History: Report Status: Verified Date Reported: JUL 27, 2024 Date Verified: JUL 27, 2024 Hog Ringer E-Sig:/ES/Sol Abraham MD Report: CASE [id number]. AP portable view chest. COMPARISON: Chest x-ray [...] advised. Report dictated by Krystian Sultana D.O. (memory care program resident) ISol, have reviewed the images and report and concur with these findings. Primary Interpreting Staff: Sol Abraham MD, Radiologist (Hog Ringer) Primary Interpreting Resident: Krystian Sultana D.O., Resident Physician /SOL DHALIWAL [facility] Jul 17, 2024 06:[address] ABD PEL W/CONT & 3D: ABRAHAM HAWK [id number] -1955 M Ex Date: JUL 17, 2024@18:18 Req Phys: CASEY BOONE Loc: 4-C [facility]-/07-17-2024@19:47 Img Loc: [facility]-CT IMAGING Service: Unknown [facility], [facility] [address] [place] [address] (Case [id number] COMPLETE) CT ABDOMEN AND PELVIS W/CONTRAST (CT Detailed) CPT:03329 Contrast Media : Non-ionic Iodinated Reason for Study: septic shock, abd pain Clinical History: Responsible Attending: Nils Attending Contact Number: [phone] Resident Contact Number: Septic shock, Patient with [...] 17, 2024 Date Verified: JUL 17, 2024 Hog Ringer E-Sig: Report: CT THORAX W/CONT (PE) [PRINTSET], CT ABDOMEN AND PELVIS W/CONTRAST [PRINTSET] Comparison: 03/17/2022, 04/23/2024 Clinical History: RO PE The study was protocoled and supervised at the local [place] facility. Chest 12 series and 1585 images were subsequently received by the [place] [facility] (NTP) for interpretation. Abdomen and pelvis 9 series and 1365 images were subsequently received by the [place] [facility] (NTP) for interpretation. Total [...] from 09/12/2023. READING PHYSICIAN: Guilherme Talbert M.D. -[phone] 07/17/2024 17:44 [facility] [employer] [facility] [phone] (For Medical Practitioner Use Only) Attention Patients / Veterans: If you have questions or concerns about these test results, please contact your ordering provider or primary care team. Primary Interpreting Staff: RADIOLOGY,OUTSIDE SERVICE, Staff Physician / RADIOLOGY,OUTSIDE SERVICE [facility] Jul 17, 2024 06:[address] PE CHEST W/3D: ABRAHAM HAWK [id number] -1955 M Ex Date: JUL 17, 2024@18:17 Req Phys: CASEY BOONE Loc: 4-C [facility]/07-17-2024@19:47 Img Loc: [facility]-CT IMAGING [facility] Service: Unknown [facility], [address] [address] (Case [id number] COMPLETE) CT THORAX W/CONT (PE) (CT Detailed) CPT:22490 Contrast Media : unspecified contrast media Reason for Study: RO PE Clinical History: Responsible Attending: Nils Attending Contact Number: [phone] Resident Contact Number: Patient with HCC and [...] 17, 2024 Date Verified: JUL 17, 2024 Hog Ringer E-Sig: Report: CT THORAX W/CONT (PE) [PRINTSET], CT ABDOMEN AND PELVIS W/CONTRAST [PRINTSET] Comparison: 03/17/2022, 04/23/2024 Clinical History: RO PE The study was protocoled and supervised at the local [place] facility. Chest 12 series and 1585 images were subsequently received by the [place] [facility] (NTP) for interpretation. Abdomen and pelvis 9 series and 1365 images were subsequently received by the [place] [facility] (NTP) for interpretation. Total [...] from 09/12/2023. READING PHYSICIAN: Guilherme Talbert M.D. [phone] 07/17/2024 17:44 [facility] National T[facility]adiology Program [phone] (For Medical Practitioner Use Only) Attention Patients / Veterans: If you have questions or concerns about these test results, please contact your ordering provider or primary care team. Primary Interpreting Staff: RADIOLOGY,OUTSIDE SERVICE, Staff Physician / RADIOLOGY,OUTSIDE SERVICE [facility] Pathology Reports: +/- 30 days [...] the Encounter. The data comes from all [place] treatment facilities. Date/Time Pathology Report Provider Source [...] Performing Laboratory: Surgical Pathology Report Performed By: [address]# [id number] [address] [place] [phone] $FTR - - - - - - [...] - - ABRAHAM HAWK STANDARD FORM 515 ID:[id number] SEX:M :1955 AGE: 68 LOC:APFEE PCP: Deirdre Wild /eze VALLADARESI Pathologist Signed: 08/16/2024 09:43 CRISTIANA TEMPLETON [facility] Aug 11, 2024 06:00 AM LR MICROBIOLOGY RE PORT: Accession [UID]: [id number] [[id number]] Received: Aug 11, 2024@06:19 Collection sample: B D BLD. BOTTLE Collection date: Aug 11, 2024 06:00 Site/Specimen: BLOOD Provider: GILSON OG Test(s) ordered: BLOOD CULT (SET 1)............ completed: Aug 17, 2024 10:06 * BACTERIOLOGY FINAL REPORT => Aug 17, 2024 10:22 [facility] CODE: [id number] Bacteriology Remark(s): 2. KAReg Culture shows NO GROWTH IN 6 DAYS =--=--=--=--=--=--=--=--=-- =--=--=--=--=--=--=--=--=-- =--=--=--=--=--=--=--=-- Performing Laboratory: Bacteriology Report Performed By: [facility] [address]# [id number] [address] [phone] JULISSA BROWN [facility] Jul 17, 2024 05:10 PM LR MICROBIOLOGY RE PORT: Accession [UID]: [id number] [[id number]] Received: Jul 17, 2024@17:30 Collection sample: B D BLD. BOTTLE (SET 2)Collection date: Jul 17, 2024 17:10 Site/Specimen: BLOOD Provider: CASEY BOONE Test(s) ordered: BLOOD CULT (SET 2)............ completed: Jul 23, 2024 14:26 * BACTERIOLOGY FINAL REPORT => Jul 23, 2024 14:28 TECH CODE: [id number] Bacteriology Remark(s): CULTURE IS NEGATIVE TO DATE, ALL POSITIVES ARE ROUTINELY CALLED. [facility] Culture shows NO GROWTH IN 6 DAYS. 07/23/24 KI =--=--=--=--=--=--=--=--=-- =--=--=--=--=--=--=--=--=-- =--=--=--=--=--=--=--=-- Performing Laboratory: Bacteriology Report Performed By: [address] CLIA# [id number] [address] [place] [phone] [facility] Jul 17, 2024 05:10 PM MICROBIOLOGY RE PORT: Accession [UID]: [id number] [[id number]] Received: Jul 17, 2024@17:30 Collection sample: B D BLD. BOTTLE Collection date: Jul 17, 2024 17:10 Site/Specimen: BLOOD Provider: CASEY BOONE Test(s) ordered: BLOOD CULT (SET 1)............ completed: Jul 23, 2024 14:26 * BACTERIOLOGY FINAL REPORT => Jul 23, 2024 14:28 TECH CODE: [id number] Bacteriology Remark(s): CULTURE IS NEGATIVE TO DATE, ALL POSITIVES ARE ROUTINELY CALLED. [facility] Culture shows NO GROWTH IN 6 DAYS. 07/23/24 KI =--=--=--=--=--=--=--=--=-- =--=--=--=--=--=--=--=--=-- =--=--=--=--=--=--=--=-- Performing Laboratory: Bacteriology Report Performed By: [address] CLIA# [id number] [address] [place] [phone] [facility] Encounter Notes: All associated encounter notes This section contains the clinical notes associated to the Encounter. Date/Time Encounter Note(s) Provider Source Jul 18, 2024 01:21 PM ANESTHESIOLOGY POS T OPERATIVE E & M NOTE: LOCAL TITLE: ANESTHESIA POST-OP STL STANDARD TITLE: ANESTHESIOLOGY POST OPERATIVE E & M NOTE DATE OF NOTE: JUL 18, 2024@13:21 ENTRY DATE: JUL 18, 2024@13:21:28 AUTHOR: LEONEL HOLM EXP COSIGNER: URGENCY: STATUS: COMPLETED Anesthesia Post-Anesthetic No Complications: Anesthesia Intra-Op Flowsheet Uploaded to [facility] /es/ LEONEL HOLM MD Staff Physician - Anesthesiology Signed: 07/18/2024 13:21 LEONEL HOLM [facility] Jul 18, 2024 09:38 AM ANESTHESIOLOGY PRE OPERATIVE E & M NOTE: LOCAL TITLE: ANESTHESIA PRE-OP STL STANDARD TITLE: ANESTHESIOLOGY PRE OPERATIVE E & M NOTE DATE OF NOTE: JUL 18, 2024@09:38 ENTRY DATE: JUL 18, 2024@09:38:15 AUTHOR: LEONEL HOLM EXP COSIGNER: URGENCY: STATUS: COMPLETED Pre-Operative Diagnosis: MELENA Operation proposed: EGD Vitals: Age: 68 Weight: 161.2 lb [73.12 kg] (05/11/2024 14:21) Height: 72 in [182.9 cm] (07/26/2023 08:00) Blood Pressure: 119/77 (07/17/2024 17:30) Pulse: 108 (07/17/2024 17:30) Temp: 97.6 F [36.4 C] (07/17/2024 16:10) Resp: 17 (07/17/2024 16:10) SpO2: 99% (07/13/2024 13:32) BMI: 21.9 Allergies: Patient has answered NKA Medications: ACTIVE INPT MEDS: 1) PHYTONADIONE TAB PO QDAILY 10MG 2) PANTOPRAZOLE INJ,PWDR IV BID 40MG 3) ONDANSETRON INJ,SOLN IVP Q6H PRN 4MG/2ML 4) CALCIUM CARBONATE TAB,CHEWABLE PO Q6H PRN 1500MG 5) CEFEPIME 2GM/BAG INJ,SOLN IV BID ID APPROVAL NEEDED BY 07/20@0859 Active Outpatient Medications (including Supplies): Active Outpatient [...] A DAY ACTIVE NEEDED 13 Total Medications Most Recent Labs/CXR/EKG Results HGB 6.6 L* g/dL 07/18/2024 06:00 HCT 19.3 % L (07/18/24 06:00) PLT 44 L 10*3/uL 07/18/2024 06:00 WBC 7.0 10*3/uL (07/18/24 06:00) PT 19.1 sec H (07/18/24 06:00) APTT 28.7 sec 05/11/2024 14:20 INR VALUE 1.7 INR 07/18/2024 06:00 PROTIME 19.1 H sec 07/18/2024 06:00 SODIUM 133 L mEq/L 07/18/2024 06:00 POTASSIUM 3.7 mEq/L 07/18/2024 06:00 CHLORIDE 104 mEq/L 07/18/2024 06:00 UREA NITROGEN 40.5 H mg/dL 07/18/2024 06:00 CREATININE 1.08 mg/dL 07/18/2024 06:00 CALCIUM 8.7 mg/dL 07/18/2024 06:00 CARBON DIOXIDE 24 mEq/L 07/18/2024 06:00 GLUCOSE 83 mg/dL 07/18/2024 06:00 EGFR (CKD-EPI 2020) 75.2 07/18/2024 06:00 ALBUMIN 2.6 L g/dL 07/18/2024 06:00 No HEMOGLOBIN A1C EO data found ALKALINE PHOSPHATASE 75 U/L 07/18/2024 06:00 SGPT/ALT 155 U/L H (07/18/24 06:00) SGOT/AST 230 U/L H (07/18/24 06:00) TOTAL BILIRUBIN 1.6 H mg/dL 07/18/2024 06:00 GLUCOSE,BLOOD-poct (STL) 98 mg/dL 07/17/2024 19:36 GLUCOSE,BLOOD-poct (STL) 117 H mg/dL 04/23/2024 11:26 GLUCOSE,BLOOD-poct (STL) 118 H mg/dL 01/16/2024 11:09 GLUCOSE,BLOOD-poct (STL) 106 H mg/dL 07/28/2023 08:46 URINE COLOR Light-Yellow 07/17/2024 19:10 APPEARANCE Clear 07/17/2024 19:10 U.PH 6.0 07/17/2024 19:10 U.BILIRUBIN Negative mg/dL 07/17/2024 19:10 U.NITRITE Negative mg/dL 07/17/2024 19:10 UDS: No URINE DRUG SCREEN EO data found TEST: No TEST LAST ONE EO data found No HIV SCREENING EO data found [facility] Hep C tests in last five years. HEP C Ab HCV Ab (STL) REACTIVE S/CO H* (04/27/22 11:12) CXR: Impression for CHEST X-RAY, 2 VIEWS, 06/07/22, case 636 The thoracic aorta is atherosclerotic. Degenerative changes in the spine. No pneumothorax. No large pleural effusion. No focal consolidation. Normal heart size. Normal mediastinal contours. 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 REVIEW OF SYSTEMS: RESPIRATORY: Comment: MALIGNANT TUMOR OF NASAL CAVITY AND NASOPHARYNX CARDIAC: Exercise Tolerance: Fair COMMISSION AUDITOR: Comment: CHRONIC PAIN SYNDROME ENDOCRINE: Comment: NONE RENAL SYSTEM: Comment: NONE GI SYSTEM: Liver Disease HEPATOCELLULAR CANCER, CIRRHOSIS Hepatitis C GERD Recent Symptoms: No HABITS: ETOH use: Current Smoking History: Non-smoker PSH: No previous Anesthesia complications Physical Exam: Auscultation Finding: Heart Sounds: Regular Rate, Regular Rhythm Breath Sounds: Clear AIRWAY: MP CLASS:II SUBMANDIBULAR SPACE:3 fingerbreaths RANGE OF MOTION: FULL TEETH: edentulous, very small mouth opening ASA: 4. A patient with severe systemic disease that is a constant threat to life. ANESTHETIC PLAN: Monitored Anesthesia Care (MAC) Planned anesthetic technique and options were discussed with the patient or guardian. Pre-Induction Reassessment: NPO Greater than 8 hours: had clear chicken broth at 8am Medications given/taken today: per pascual /loly/ LEONEL HOLM MD Staff Physician - Anesthesiology Signed: 07/18/2024 11:38 Receipt Acknowledged By: 07/18/2024 12:02 /loly/ SLOANE COLEY, TREASURE AMANDA, Anesthesiology LEONEL HOLM [facility]
--- OUTSIDE RECORDS SUMMARY | 2024-10-08 17:10 | XMS_ITS | Encounter Summary ---
Author Name [facility] Organization [facility] Address [address] [place] [address] Care Team Providers Care Shaker [place] Name Role Phone SUKHJINDER CHAHAL Primary Care [...] SUPPL EMENT Nov 25, 2021 PLAN G [id number] [phone] ELLEN HAWK VID PATIENT AARP MED SUPP MEDIGAP PLAN G MEDIC ARE SUPPL EMENT Nov 25, 2021 PLAN G [id number] [phone] ELLEN HAWK VID PATIENT MEDICARE (WNR) MEDICARE (M) PART B Sep 25, 2021 PART B [id number] ELLEN HAWK VID PATIENT MEDICARE (WNR) MEDICARE (M) PART A Aug 25, 2021 PART A [id number] [phone] ELLEN HAWKD PATIENT Selected Encounter This section includes the information on record at [place] for the Encounter. Date/Time Encounter Type Encounter Description Reason Provider Source Jul 18, 2024 10:15 AM EGD DIAGNOSTIC BRUSH WASH GI ENDOSCOPY ICD-10-CM I85.00 Esophageal varices without bleeding AZUCENA MITCHELL Encounter Template Text not used by [place] Assessments - Encounter Diagnoses This section includes the primary and secondary diagnoses documented for the Encounter. Date/Time Primary/Secondary Diagnosis Diagnosis Name Provider Source Jul 18, 2024 12:43 PM PRIMARY Esophageal varices without bleeding LAURA FALCON [facility] Jul 18, 2024 12:43 PM SECONDARY Other diseases of stomach and duodenum LAURA FALCON [facility] Plan of Treatment: Future Appointments (+ 6 months) and Future Tests (+/- 45 days) The Plan of Treatment section includes [facility] care activities for the [facility] This section includes future appointments and future orders which are active, pending or scheduled. Future Appointments This section includes appointments that were scheduled to occur 6 months from the date of the Encounter, up to a maximum of 20 appointments. The data comes from all [place] treatment facilities. Appointment Date/Time Appointment Type Appointme nt Facility Name Jul 25, 2024 01:00 PM AMBULATORY - MEDICINE [facility] Jul 26, 2024 10:00 AM AMBULATORY - MEDICINE [facility] Jul 27, 2024 03:14 PM AMBULATORY - MEDICINE [facility] Aug 01, 2024 10:15 AM AMBULATORY - NONE [facility] Aug 02, 2024 11:30 AM AMBULATORY - MEDICINE [facility] Aug 02, 2024 11:31 AM AMBULATORY - MEDICINE [facility] Aug 10, 2024 11:00 AM AMBULATORY - MEDICINE [facility] Aug 10, 2024 11:31 AM AMBULATORY - MEDICINE [facility] Aug 10, 2024 11:59 AM AMBULATORY - MEDICINE [facility] Aug 16, 2024 10:00 AM AMBULATORY - MEDICINE [facility] Aug 17, 2024 08:30 AM AMBULATORY - MEDICINE [facility] Aug 17, 2024 09:00 AM AMBULATORY - MEDICINE [facility] Aug 17, 2024 09:30 AM AMBULATORY - MEDICINE [facility] Aug 23, 2024 12:00 PM AMBULATORY - NONE [facility] Aug 31, 2024 02:00 PM AMBULATORY - MEDICINE [facility] Sep 07, 2024 11:00 AM AMBULATORY - MEDICINE [facility] Sep 07, 2024 01:00 PM AMBULATORY - MEDICINE [facility] Oct 15, 2024 03:00 PM AMBULATORY - SURGERY [facility] Oct 19, 2024 02:00 PM AMBULATORY - NONE [facility] Active, Pending, and Scheduled Orders This section includes a listing of several types of active, pending, and scheduled orders, including clinic medications orders, diagnostic test orders, procedure orders and consult orders; where the start date of the order is 45 days before the date of the Encounter or 45 days after the date of theEncounter. The data comes from all [facility] facilities. Test Date/Time Test Type Test Details Facility Name Jul 17, 2024 12:00 AM Laboratory - Blood Bank Order FRESH FROZEN PLASMA - LAB VBECS - NO SPECIMEN REQUIRED [facility] Jul 17, 2024 12:00 AM Laboratory - Blood Bank Order RED BLOOD CELLS - LAB VBECS - NO SPECIMEN REQUIRED [facility] Jul 17, 2024 06:13 PM Laboratory - Blood Bank Order DIRECT ANTIGLOBULIN TEST - LAB BLOOD STAT [facility] Jul 17, 2024 06:13 PM Laboratory - Blood Bank Order TYPE & SCREEN - LAB BLOOD [facility] Jul 18, 2024 12:00 AM Laboratory - Blood Bank Order PLATELETS - LAB VBECS - NO SPECIMEN REQUIRED [facility] Aug 10, 2024 12:00 AM Laboratory - Blood Bank Order RED BLOOD CELLS - LAB VBECS - NO SPECIMEN REQUIRED JOANN [facility] Aug 10, 2024 02:00 PM Laboratory - Blood Bank Order TYPE & SCREEN - LAB BLOOD [facility] Aug 10, 2024 05:43 PM Laboratory - Chemistry Order LIPASE GREEN LI/HEP BLD/PLAS PLASMA STAT I ONCE [facility] Aug 10, 2024 05:44 PM Laboratory - Microbiology Order BLOOD CULT (SET 2) B D BLD. BOTTLE (SET 2) BLOOD JOANN I NOW [facility] Aug 11, 2024 02:00 AM Laboratory - Chemistry Order CBC BLOOD WC [facility] Aug 14, 2024 02:00 AM Laboratory - Chemistry Order CBC BLOOD WC [facility] Aug 15, 2024 02:00 AM Laboratory - Chemistry Order CBC BLOOD WC [facility] Aug 16, 2024 12:00 AM Laboratory - Chemistry Order CBC BLOOD SP [facility] Aug 16, 2024 08:00 PM Laboratory - Chemistry Order CBC BLOOD LC [facility] Aug 17, 2024 08:00 PM Laboratory - Chemistry Order CBC BLOOD LC [facility] Lab Results: +/- 30 days of the encounter This section includes the Chemistry and Hematology Lab Results on record with [place] for the patient. Radiology Reports and Pathology Reports are provided separately, in subsequent sections. Lab Results This section contains the Chemistry/Hematology Results that were resulted 30 days before or 30 daysafter the date of the Encounter. Date/Time Source Result Type Result - Unit Interpretation Reference Range Specimen Type Comment Aug 17, 2024 03:34 PM [facility] TSH W/ REFLEX FT4 (STL) PLASMA Specimen Type: PLASMA No comment entered. Ordering Provider: TONY SIMMONS Report Released Date/Time: Aug 10, 2024 12:01 PM Reporting Lab: [place] [address] [facility] [address] Performing Lab: [address] [address] TSH 4.570 u[IU]/mL 0.47-5 Aug 17, 2024 03:34 PM [facility] COMPREHENSIVE METABOLIC PANEL PLASMA Specimen Type: PLASMA Comment: No hemolysis noted. Ordering Provider: TONY SIMMONS Report Released Date/Time: Aug 10, 2024 12:01 PM Reporting Lab: [address] [address] Performing Lab: [address] [address] CREATININE 0.85 mg/dL 0.7-1.3 UREA NITROGEN 11.5 [...] >60 Aug 17, 2024 03:34 PM [facility] CBC BLOOD Specimen Type: BLOOD Comment: No Clots Ordering Provider: TONY SIMMONS Report Released Date/Time: Aug 10, 2024 12:01 PM Reporting Lab: [address] [address] Performing Lab: [address] [address] WBC 5.0 10*3/uL 3.6-11.2 RBC 2.83 10*6/uL [...] 1.0-7.0 Aug 15, 2024 07:20 AM [facility] CBC BLOOD Specimen Type: BLOOD Comment: No clots detected in specimen. Ordering Provider: CASH CLOUD Report Released Date/Time: Aug 12, 2024 01:47 PM Reporting Lab: [place] [address] [facility] [address] Performing Lab: [address] [address] WBC 4.9 10*3/uL 3.6-11.2 RBC 2.93 10*6/uL [...] 10*3/uL 2.10-8.00 Aug 15, 2024 04:54 AM [facility] GLUCOSE,BLOOD-poct (STL) BLOOD Specimen Type: BLOOD Comment: Test Performed by: [id number] Meter #: [id number] Ordering Provider: DEIRDRE WILD Report Released Date/Time: Aug 15, 2024 05:21 AM Reporting Lab: [address] [address] Performing Lab: [address] [address] GLUCOSE,BLOOD-poct (STL) 112 mg/dL H 72-99 Aug 14, 2024 08:30 PM [facility] CRP PLASMA Specimen Type: PLASM A No comment entered. Ordering Provider: CASH CLOUD Report Released Date/Time: Aug 12, 2024 10:14 AM Reporting Lab: [address] [address] Performing Lab: [address] [address] CRP 0.7 mg/dL H 0-0.5 Aug 14, 2024 08:30 PM [facility] CBC BLOOD Specimen Type: BLOOD No comment entered. Ordering Provider: GILSON OG Report Released Date/Time: Aug 10, 2024 04:01 PM Reporting Lab: [address] [address] Performing Lab: [address] [address] WBC 4.6 10*3/uL 3.6-11.2 RBC 2.83 10*6/uL [...] 10*3/uL 2.10-8.00 Aug 14, 2024 07:54 PM [facility] GLUCOSE,BLOOD-poct (STL) BLOOD Specimen Type: BLOOD Comment: Test Performed by: [id number] Meter #: [id number] Ordering Provider: DEIRDRE WILD Report Released Date/Time: Aug 14, 2024 08:15 PM Reporting Lab: [address] [address] Performing Lab: [address] [address] GLUCOSE,BLOOD-poct (STL) 112 mg/dL H 72-99 Aug 14, 2024 04:10 PM [facility] GLUCOSE,BLOOD-poct (STL) BLOOD Specimen Type: BLOOD Comment: Test Performed by: [id number] Meter #: [id number] Ordering Provider: DEIRDRE WILD Report Released Date/Time: Aug 14, 2024 04:43 PM Reporting Lab: [address] [address] Performing Lab: [address] [address] GLUCOSE,BLOOD-poct (STL) 115 mg/dL H 72-99 Aug 14, 2024 02:05 PM [facility] COMPREHENSIVE METABOLIC PANEL PLASMA Specimen Type: PLASMA Comment: No hemolysis noted. Ordering Provider: GILSON OG Report Released Date/Time: Aug 14, 2024 06:56 AM Reporting Lab: [address] [place] [address] Performing Lab: [address] [address] CREATININE 0.75 mg/dL 0.7-1.3 UREA NITROGEN 9.3 [...] >60 Aug 14, 2024 02:05 PM [facility] CBC BLOOD Specimen Type: BLOOD Comment: No platelet clots or clumping detected. Ordering Provider: GILSON OG Report Released Date/Time: Aug 10, 2024 04:01 PM Reporting Lab: [address] [address] Performing Lab: [address] [address] WBC 4.6 10*3/uL 3.6-11.2 RBC 3.06 10*6/uL [...] 10*3/uL 2.10-8.00 Aug 14, 2024 10:12 AM [facility] GLUCOSE,BLOOD-poct (L) BLOOD Specimen Type: BLOOD Comment: Test Performed by: [id number] Meter #: [id number] Ordering Provider: DEIRDRE WILD Report Released Date/Time: Aug 14, 2024 10:13 AM Reporting Lab: [address] [address] Performing Lab: [address] [address] GLUCOSE,BLOOD-poct ([facility]) 112 mg/dL H 72-99 Aug 14, 2024 09:20 AM [facility] PT/INR NEW ([facility]-MA) PLASMA Specimen Type: PLAS MA No comment entered. Ordering Provider: GILSON OG Report Released Date/Time: Aug 14, 2024 09:06 AM Reporting Lab: [address] [address] Performing Lab: [address] [address] PROTIME 13.6 s H 9.4-12.5 INR VALUE 1.2 {INR} Aug 14, 2024 06:51 AM [facility] CBC BLOOD Specimen Type: BLOOD No comment entered. Ordering Provider: CASH CLOUD Report Released Date/Time: Aug 12, 2024 01:47 PM Reporting Lab: [address] [address] Performing Lab: [address] [address] WBC 3.8 10*3/uL 3.6-11.2 RBC 2.56 10*6/uL [...] 10*3/uL 2.10-8.00 Aug 14, 2024 06:03 AM [facility] GLUCOSE,BLOOD-poct (STL) BLOOD Specimen Type: BLOOD Comment: Test Performed by: [id number] Meter #: [id number] Ordering Provider: DEIRDRE IWLD Report Released Date/Time: Aug 14, 2024 06:07 AM Reporting Lab: [address] [address] Performing Lab: [place] [address] [facility] [address] GLUCOSE,BLOOD-poct (STL) 114 mg/dL H 72-99 Aug 13, 2024 09:11 PM [facility] GLUCOSE,BLOOD-poct (STL) BLOOD Specimen Type: BLOOD Comment: Test Performed by: [id number] Meter #: [id number] Ordering Provider: DEIRDRE WILD Report Released Date/Time: Aug 13, 2024 09:40 PM Reporting Lab: [address] [address] Performing Lab: [address] [address] GLUCOSE,BLOOD-poct (STL) 160 mg/dL H 72-99 Aug 13, 2024 07:10 PM [facility] COMPREHENSIVE METABOLIC PANEL PLASMA Specimen Type: PLASMA Comment: No hemolysis noted. Ordering Provider: GILSON OG Report Released Date/Time: Aug 14, 2024 07:03 AM Reporting Lab: [place] [address] [facility] [address] Performing Lab: [address] [address] CREATININE 0.75 mg/dL 0.7-1.3 UREA NITROGEN 10.3 [...] >60 Aug 13, 2024 07:10 PM [facility] CRP PLASMA Specimen Type: PLASM A No comment entered. Ordering Provider: CASH CLOUD Report Released Date/Time: Aug 12, 2024 10:14 AM Reporting Lab: [facility] [address] [place] [address] Performing Lab: [address] [address] CRP 0.7 mg/dL H 0-0.5 Aug 13, 2024 07:10 PM [facility] CBC BLOOD Specimen Type: BLOOD No comment entered. Ordering Provider: GILSON OG Report Released Date/Time: Aug 10, 2024 04:01 PM Reporting Lab: [address] [address] Performing Lab: [address] [address] WBC 5.3 10*3/uL 3.6-11.2 RBC 2.67 10*6/uL [...] 10*3/uL 2.10-8.00 Aug 13, 2024 04:35 PM [facility] GLUCOSE,BLOOD-poct (STL) BLOOD Specimen Type: BLOOD Comment: Test Performed by: [id number] Meter #: [id number] Ordering Provider: DEIRDRE WILD Report Released Date/Time: Aug 13, 2024 05:18 PM Reporting Lab: [address] [address] Performing Lab: [address] [address] GLUCOSE,BLOOD-poct (STL) 113 mg/dL H 72-9 9 Aug 13, 2024 02:36 PM [facility] CBC BLOOD Specimen Type: BLOOD No comment entered. Ordering Provider: GILSON OG Report Released Date/Time: Aug 10, 2024 04:01 PM Reporting Lab: [address] [address] Performing Lab: [address] [address] WBC 5.8 10*3/uL 3.6-11.2 RBC 2.77 10*6/uL [...] 10*3/uL 2.10-8.00 Aug 13, 2024 11:37 AM [facility] GLUCOSE,BLOOD-poct (STL) BLOOD Specimen Type: BLOOD Comment: Test Performed by: [id number] Meter #: [id number] Ordering Provider: DEIRDRE WILD Report Released Date/Time: Aug 13, 2024 11:38 AM Reporting Lab: [place] [phone] Performing Lab: [address] [address] GLUCOSE,BLOOD-poct ([facility]) 131 mg/dL H 72-99 Aug 13, 2024 08:06 AM [facility] CBC BLOOD Specimen Type: BLOOD Comment: no clot Ordering Provider: CASH CLOUD Report Released Date/Time: Aug 12, 2024 01:47 PM Reporting Lab: [place] [address] [facility] [address] Performing Lab: [address] [address] WBC 3.0 10*3/uL L 3.6-11.2 RBC 2.61 [...] 10*3/uL 2.10-8.00 Aug 13, 2024 04:45 AM [facility] GLUCOSE,BLOOD-poct (STL) BLOOD Specimen Type: BLOOD Comment: Test Performed by: [id number] Meter #: [id number] Ordering Provider: DEIRDRE WILD Report Released Date/Time: Aug 13, 2024 06:18 AM Reporting Lab: [address] [address] Performing Lab: [address] [address] GLUCOSE,BLOOD-poct (STL) 139 mg/dL H 72-99 Aug 12, 2024 10:10 PM [facility] GLUCOSE,BLOOD-poct (STL) BLOOD Specimen Type: BLOOD Comment: Test Performed by: [id number] Meter #: [id number] Ordering Provider: DEIRDRE WILD Report Released Date/Time: Aug 12, 2024 10:50 PM Reporting Lab: [address] [address] Performing Lab: [address] [address] GLUCOSE,BLOOD-poct (STL) 105 mg/dL H 72-99 Aug 12, 2024 08:48 PM [facility] CBC BLOOD Specimen Type: BLOOD Comment: SEE PREVIOUS DIFFERENTIAL ON 08/12/24 @ 1809 Ordering Provider: GILSON OG Report Released Date/Time: Aug 10, 2024 04:01 PM Reporting Lab: [address] [address] Performing Lab: [address] [address] WBC 5.0 10*3/uL 3.6-11.2 RBC 2.78 10*6/uL [...] 1.0-7.0 Aug 12, 2024 08:48 PM [facility] CRP PLASMA Specimen Type: PLASM A No comment entered. Ordering Provider: CASH CLOUD Report Released Date/Time: Aug 12, 2024 10:14 AM Reporting Lab: [address] [address] Performing Lab: [address] [address] CRP 0.6 mg/dL H 0-0.5 Aug 12, 2024 04:51 PM [facility] GLUCOSE,BLOOD-poct (STL) BLOOD Specimen Type: BLOOD Comment: Test Performed by: [id number] Meter #: [id number] Ordering Provider: DEIRDRE WILD Report Released Date/Time: Aug 12, 2024 05:07 PM Reporting Lab: [address] [address] Performing Lab: [address] [place] [address] GLUCOSE,BLOOD-poct (STL) 135 mg/dL H 72-99 Aug 12, 2024 02:33 PM [facility] CBC BLOOD Specimen Type: BLOO D No comment entered. Ordering Provider: GILSON OG Report Released Date/Time: Aug 10, 2024 04:01 PM Reporting Lab: [address] [address] Performing Lab: [address] [address] WBC 4.0 10*3/uL 3.6-11.2 RBC 2.56 10*6/uL [...] 10*3/uL 2.10-8.00 Aug 12, 2024 11:51 AM [facility] GLUCOSE,BLOOD-poct (STL) BLOOD Specimen Type: BLOOD Comment: Test Performed by: [id number] Meter #: [id number] Ordering Provider: DEIRDRE WILD Report Released Date/Time: Aug 12, 2024 12:26 PM Reporting Lab: [address] [place] [address] Performing Lab: [place] [address] [facility] [address] GLUCOSE,BLOOD-poct (STL) 139 mg/dL H 72-99 Aug 12, 2024 07:35 AM [facility] CBC BLOOD Specimen Type: BLOOD Comment: prev diff 08/11/24. Ordering Provider: GILSON OG Report Released Date/Time: Aug 10, 2024 04:01 PM Reporting Lab: [address] [address] Performing Lab: [address] [address] WBC 3.0 10*3/uL L 3.6-11.2 RBC 2.54 [...] 0.00-0. 20 Aug 12, 2024 05:49 AM [facility] GLUCOSE,BLOOD-poct (STL) BLOOD Specimen Type: BLOOD Comment: Test Performed by: [id number] Meter #: [id number] Ordering Provider: DEIRDRE WILD Report Released Date/Time: Aug 12, 2024 05:50 AM Reporting Lab: [address] [address] Performing Lab: [address] [address] GLUCOSE,BLOOD-poct (STL) 112 mg/dL H 72-99 Aug 12, 2024 01:45 AM [facility] CBC BLOOD Specimen Type: BLOOD Comment: SEE PREVIOUS DIFFERENTIAL ON 08/12/24 @ 0239 [facility] Ordering Provider: GILSON OG Report Released Date/Time: Aug 10, 2024 04:01 PM Reporting Lab: [address] [address] Performing Lab: [address] [address] WBC 2.6 10*3/uL L 3.6-11.2 RBC 2.42 [...] 1.0-7.0 Aug 11, 2024 09:25 PM [facility] CBC BLOOD Specimen Type: BLOOD No comment entered. Ordering Provider: GILSON OG Report Released Date/Time: Aug 10, 2024 04:01 PM Reporting Lab: [address] [address] Performing Lab: [address] [address] WBC 3.6 10*3/uL 3.6-11.2 RBC 2.54 10*6/uL [...] 10*3/uL 2.10-8.00 Aug 11, 2024 09:17 PM [facility] GLUCOSE,BLOOD-poct (STL) BLOOD Specimen Type: BLOOD Comment: Test Performed by: [id number] Meter #: [id number] Ordering Provider: DEIRDRE WILD Report Released Date/Time: Aug 11, 2024 09:21 PM Reporting Lab: [address] [address] Performing Lab: [address] [address] GLUCOSE,BLOOD-poct (STL) 167 mg/dL H 72-99 Aug 11, 2024 04:42 PM [facility] CBC BLOOD Specimen Type: BLOOD No comment entered. Ordering Provider: YVONNE HARRISON Report Released Date/Time: Aug 11, 2024 04:41 PM Reporting Lab: [address] [address] Performing Lab: [address] [address] WBC 4.0 10*3/uL 3.6-11.2 RBC 2.74 10*6/uL [...] 10*3/uL 2.10-8.00 Aug 11, 2024 04:30 PM [facility] GLUCOSE,BLOOD-poct (STL) BLOOD Specimen Type: BLOOD Comment: Test Performed by: [id number] Meter #: [id number] Ordering Provider: DEIRDRE WILD Report Released Date/Time: Aug 11, 2024 06:06 PM Reporting Lab: [address] [address] Performing Lab: [facility] [address] [facility] [address] GLUCOSE,BLOOD-poct (STL) 95 mg/dL 72-99 Aug 11, 2024 11:08 AM [facility] GLUCOSE,BLOOD-poct (STL) BLOOD Specimen Type: BLOOD Comment: Test Performed by: [id number] Meter #: [id number] Ordering Provider: DEIRDRE WILD Report Released Date/Time: Aug 11, 2024 11:10 AM Reporting Lab: [place] [address] [facility] [address] Performing Lab: [address] [address] GLUCOSE,BLOOD-poct (STL) 117 mg/dL H 72-9 9 Aug 11, 2024 06:00 AM [facility] HEPATIC FUNTION PANEL (STL) PLASMA Specimen Ty pe: PLASMA No comment entered. Ordering Provider: GILSON OG Report Released Date/Time: Aug 10, 2024 04:02 PM Reporting Lab: [place] [address] [facility] [address] Performing Lab: [address] [address] PROTEIN 5.4 g/dL L 6-8.6 ALBUMIN 2.6 g/dL L 3.4-5 TOTAL BILIRUBIN 0.8 mg/dL 0.2-1.2 ALKALINE PHOSPHATASE 72 U/L 40-150 AST/SGOT 28 U/L 5-34 ALT/SGPT 10 U/L 8-40 CONJ. BILIRUBIN 0.4 mg/dL 0-0.5 Aug 11, 2024 06:00 AM [facility] PT/INR NEW ([facility]-MA) PLASMA Specimen Type: PLAS MA No comment entered. Ordering Provider: GILSON OG Report Released Date/Time: Aug 10, 2024 06:20 PM Reporting Lab: [place] [address] [facility] [address] Performing Lab: [address] [address] PROTIME 15.5 s H 9.4-12.5 INR VALUE 1.4 {INR} Aug 11, 2024 06:00 AM [facility] IRON/TIBC PROFILE SERUM Specimen Type: SERUM No comment entered. Ordering Provider: GILSON OG Report Released Date/Time: Aug 10, 2024 04:02 PM Reporting Lab: [address] [address] Performing Lab: [address] [address] TIBC 263 ug/dL 250-450 TRANSFERRIN 210 mg/dL 163-344 IRON SATURATION 8 L 20-50 IRON 21 ug/dL L 65-175 Aug 11, 2024 06:00 AM [facility] APTT PLASMA Specimen Type: PLASM A No comment entered. Ordering Provider: GILSON OG Report Released Date/Time: Aug 10, 2024 06:20 PM Reporting Lab: [address] [address] Performing Lab: [address] [address] APTT 25.5 s L 26.7-39.9 Aug 11, 2024 06:00 AM [facility] CBC BLOOD Specimen Type: BLOOD No comment entered. Ordering Provider: GILSON OG Report Released Date/Time: Aug 10, 2024 04:01 PM Reporting Lab: [address] [address] Performing Lab: [address] [address] WBC 2.4 10*3/uL L 3.6-11.2 RBC 2.42 [...] L 2.10-8.00 Aug 10, 2024 09:00 PM [facility] BASIC METABOLIC PANEL PLASMA Specimen Type: PL ASMA Comment: No hemolysis noted. Ordering Provider: GILSON OG Report Released Date/Time: Aug 10, 2024 04:01 PM Reporting Lab: [address] [address] Performing Lab: [address] [address] CREATININE 0.84 mg/dL 0.7-1.3 UREA NITROGEN 16.8 mg/dL 9.0-25.0 GLUCOSE 104 mg/dL H 72-99 SODIUM 133 meq/L L 136-145 POTASSIUM 3.5 meq/L 3.5-5 CHLORIDE 103 meq/L 98-107 CARBON DIOXIDE 23 meq/L 22-31 CALCIUM 8.4 mg/dL 8.4-10.4 EGFR (CKD-EPI 2020) 95.6 >60 Aug 10, 2024 09:00 PM [facility] CBC BLOOD Specimen Type: BLOOD No comment entered. Ordering Provider: GILSON OG Report Released Date/Time: Aug 10, 2024 04:01 PM Reporting Lab: [address] [address] Performing Lab: [address] [address] WBC 4.3 10*3/uL 3.6-11.2 RBC 2.22 10*6/uL [...] PM Reporting Lab: [facility] [address] [facility] [address] Performing Lab: [facility] [address] [address] MRSA SURVL NARES DNA Negative Negative Aug 10, 2024 06:02 PM [facility] GLUCOSE,BLOOD-poct (STL) BLOOD Specimen Type: BLOOD Comment: Test Performed by: [id number] Meter #: [id number] Ordering Provider: YASIR SANZ MD Report Released Date/Time: Aug 10, 2024 06:04 PM Reporting Lab: [place] [address] [facility] [address] Performing Lab: [place] [address] [facility] [address] GLUCOSE,BLOOD-poct (L) 94 mg/dL 72-99 Aug 10, 2024 02:12 PM [facility] PT/INR NEW (L-MA) PLASMA Specimen Type: PLAS MA No comment entered. Ordering Provider: YASIR SANZ MD Report Released Date/Time: Aug 10, 2024 02:00 PM Reporting Lab: [place] [address] [facility] [address] Performing Lab: [place] [address] [facility] [address] PROTIME 13.8 s H 9.4-12.5 INR VALUE 1.2 {INR} Aug 10, 2024 02:12 PM [facility] APTT PLASMA Specimen Type: PLASM A No comment entered. Ordering Provider: YASIR SANZ MD Report Released Date/Time: Aug 10, 2024 02:00 PM Reporting Lab: [place] [address] [facility] [address] Performing Lab: [address] [id number] APTT 20.1 s L 26.7-39.9 Aug 10, 2024 11:30 AM [facility] TSH W/ REFLEX FT4 (STL) PLASMA Specimen Type: PLASMA No comment entered. Ordering Provider: TONY SIMMONS Report Released Date/Time: Aug 02, 2024 12:33 PM Reporting Lab: [facility] [address] [facility] [address] Performing Lab: [address] [address] TSH 3.991 u[IU]/mL 0.47-5 Aug 10, 2024 11:30 AM [facility] COMPREHENSIVE METABOLIC PANEL PLASMA Specimen Type: PLASMA Comment: No hemolysis noted. Ordering Provider: TONY SIMMONS Report Released Date/Time: Aug 02, 2024 12:33 PM Reporting Lab: [address] [address] Performing Lab: [address] [address] CREATININE 0.82 mg/dL 0.7-1.3 UREA NITROGEN 21.7 [...] >60 Aug 10, 2024 11:30 AM [facility] CBC BLOOD Specimen Type: BLOOD No comment entered. Ordering Provider: TONY SIMMONS Report Released Date/Time: Aug 02, 2024 12:33 PM Reporting Lab: [address] [address] Performing Lab: [address] [address] WBC 7.4 10*3/uL 3.6-11.2 RBC 2.81 10*6/uL [...] 20 Aug 02, 2024 11:53 AM [facility] PROTEIN ELECTROPHORESIS BLOOD SERUM Specimen Type: SERUM Comment: Reference Range: None Detected NOTE: THIS RESULT IS FLAGGED ABNORMAL Evaluation reveals a restricted band (M-spike) migrating in the gamma globulin region. If not already requested, Immunofixation should be considered. Test Performed by [facility], [facility], [address] [place] [address] Tristin Iyer M.D., Ph.D., Director of Laboratories , CLIA [id number] PREVIOUS SUGAR: IgG [place] Ordering Provider: TONY SIMMONS Report Released Date/Time: Jul 13, 2024 01:49 PM Reporting Lab: [facility] [address] [place] [address] Performing Lab: [address] ALPHA-1 GLOBULIN(SO-PB-STL) 0.4 g/dL H 0.2 [...] g/dL H Aug 02, 2024 11:53 AM [facility] IGA (STL) PLASMA Specimen Type: PLASM A Comment: No hemolysis noted. Ordering Provider: TONY SIMMONS Report Released Date/Time: Jul 13, 2024 01:49 PM Reporting Lab: [address] [address] Performing Lab: [address] [address] IGA (STL) 113 mg/dL 63-484 Aug 02, 2024 11:53 AM [facility] IGG (STL) PLASMA Specimen Type: PLASM A Comment: No hemolysis noted. Ordering Provider: TONY SIMMONS Report Released Date/Time: Jul 13, 2024 01:49 PM Reporting Lab: [address] [address] Performing Lab: [address] [address] IGG (STL) 1898 mg/dL H 540-1822 Aug 02, 2024 11:53 AM [facility] IGM (STL) PLASMA Specimen Type: PLASM A Comment: No hemolysis noted. Ordering Provider: TONY SIMMONS Report Released Date/Time: Jul 13, 2024 01:49 PM Reporting Lab: [address] [address] Performing Lab: [address] [address] IGM (STL) 104 mg/dL 22-240 Aug 02, 2024 11:53 AM [facility] KAPPA/LAMBDA FREE LC PANEL (STL-PB) SERUM Spe cimen Type: SERUM No comment entered. Ordering Provider: TONY SIMMONS Report Released Date/Time: Jul 13, 2024 01:49 PM Reporting Lab: [address] [address] Performing Lab: [address] [address] KAPPA FREE LC (STL) 102.7 mg/L H 2.4-20.7 LAMBDA FREE LC (STL) 32.2 mg/L H 4.2-27.7 KAPPA/LAMBDA RATIO (STL) 3.19 H 0.22-1. 74 Aug 02, 2024 11:53 AM [facility] TSH W/ REFLEX FT4 (STL) PLASMA Specimen Type: PLASMA No comment entered. Ordering Provider: TONY SIMMONS Report Released Date/Time: Jul 13, 2024 01:49 PM Reporting Lab: [address] [address] Performing Lab: [address] [address] TSH 2.182 u[IU]/mL 0.47-5 Aug 02, 2024 11:53 AM [facility] COMPREHENSIVE METABOLIC PANEL PLASMA Specimen Type: PLASMA Comment: No hemolysis noted. Ordering Provider: TONY SIMMONS Report Released Date/Time: Jul 13, 2024 01:49 PM Reporting Lab: [address] [address] Performing Lab: [address] [address] CREATININE 0.82 mg/dL 0.7-1.3 UREA NITROGEN 12.2 [...] 96.3 >60 Aug 02, 2024 11:53 AM [facility] CBC BLOOD Specimen Type: BLOOD Comment: No Clots in specimen Ordering Provider: TONY SIMMONS Report Released Date/Time: Jul 13, 2024 01:49 PM Reporting Lab: [place] [address] [facility] [address] Performing Lab: [address] [address] WBC 2.2 10*3/uL L 3.6-11.2 RBC 3.44 [...] L 2.10-8.00 Aug 01, 2024 10:10 AM [facility] GLUCOSE,BLOOD-poct (STL) BLOOD Specimen Type: BLOOD Comment: Test Performed by: [id number] Meter #: [id number] Ordering Provider: SUKHJINDER CHAHAL Report Released Date/Time: Aug 01, 2024 10:17 AM Reporting Lab: [place] [address] [facility] [address] Performing Lab: [place] [address] [facility] [address] GLUCOSE,BLOOD-poct (STL) 101 mg/dL H 72-99 Jul 27, 2024 01:54 PM [facility] BRAIN NATRIURETIC PEPTIDE PLASMA Specimen Type : PLASMA No comment entered. Ordering Provider: ELIZABETH COATES Report Released Date/Time: Jul 27, 2024 03:39 PM Reporting Lab: [place] [address] [facility] [address] Performing Lab: [address] [address] BRAIN NATRIURETIC PEPTIDE 257.2 pg/mL H 0- 100 Jul 27, 2024 01:54 PM [facility] TROPONIN I PLASMA Specimen Type: PLASM A Comment: No hemolysis noted. Ordering Provider: ELIZABETH COATES Report Released Date/Time: Jul 27, 2024 03:39 PM Reporting Lab: [place] [address] [facility] [address] Performing Lab: [address] [address] TROPONIN I 0.011 ng/mL 0-0.033 Jul 27, 2024 01:54 PM [facility] COMPREHENSIVE METABOLIC PANEL PLASMA Specimen Type: PLASMA Comment: No hemolysis noted. Ordering Provider: ELIZABETH COATES Report Released Date/Time: Jul 27, 2024 03:39 PM Reporting Lab: [place] [address] [facility] [address] Performing Lab: [address] [address] CREATININE 0.70 mg/dL 0.7-1.3 UREA NITROGEN 7.4 [...] >60 Jul 27, 2024 01:54 PM [facility] CBC BLOOD Specimen Type: BLOOD No comment entered. Ordering Provider: ELIZABETH COATES Report Released Date/Time: Jul 27, 2024 03:39 PM Reporting Lab: [address] [address] Performing Lab: [address] [address] WBC 3.2 10*3/uL L 3.6-11.2 RBC 3.12 [...] 2.10-8.00 Jul 21, 2024 02:00 PM [facility] B12 SERUM Specimen Type: SERUM No comment entered. Ordering Provider: JORJE DENSON Report Released Date/Time: Jul 21, 2024 12:54 PM Reporting Lab: [address] [address] Performing Lab: [address] [address] B12 1584 pg/mL H 213-816 Jul 21, 2024 02:00 PM [facility] FOLATE (L-MA) SERUM Specimen Type: SERUM No comment entered. Ordering Provider: JORJE DENSON Report Released Date/Time: Jul 21, 2024 12:54 PM Reporting Lab: [address] [address] Performing Lab: [address] [address] FOLATE (L-MA) 9.1 ng/mL 7-20 Jul 21, 2024 02:00 PM [facility] IRON/TIBC PROFILE SERUM Specimen Type: SERUM No comment entered. Ordering Provider: JORJE DENSON Report Released Date/Time: Jul 21, 2024 12:54 PM Reporting Lab: [address] [address] Performing Lab: [address] [address] TIBC 243 ug/dL L 250-450 TRANSFERRIN 194 mg/dL 163-344 IRON SATURATION 20 20-50 IRON 49 ug/dL L 65-175 Jul 21, 2024 02:00 PM [facility] CBC BLOOD Specimen Type: BLOOD Comment: Manual differential performed 07/20/2024 No clots Ordering Provider: JORJE DENSON Report Released Date/Time: Jul 21, 2024 12:54 PM Reporting Lab: [address] [address] Performing Lab: [address] [address] WBC 5.6 10*3/uL 3.6-11.2 RBC 2.87 10*6/uL [...] H 1.0-7.0 Jul 20, 2024 08:55 PM [facility] PT/INR NEW (STL-MA) PLASMA Specimen Type: PLAS MA No comment entered. Ordering Provider: AURA ZACARIAS Report Released Date/Time: Jul 18, 2024 01:30 PM Reporting Lab: [address] [address] Performing Lab: [address] [place] [address] PROTIME 12.8 s H 9.4-12.5 INR VALUE 1.1 {INR} Jul 20, 2024 08:55 PM [facility] BASIC METABOLIC PANEL PLASMA Specimen Type: PL ASMA Comment: No hemolysis noted. Ordering Provider: AURA ZACARIAS Report Released Date/Time: Jul 18, 2024 01:30 PM Reporting Lab: [address] [address] Performing Lab: [address] [address] CREATININE 0.74 mg/dL 0.7-1.3 UREA NITROGEN 15.1 mg/dL 9.0-25.0 GLUCOSE 121 mg/dL H 72-99 SODIUM 130 meq/L L 136-145 POTASSIUM 3.7 meq/L 3.5-5 CHLORIDE 100 meq/L 98-107 CARBON DIOXIDE 20 meq/L L 22-31 CALCIUM 8.5 mg/dL 8.4-10.4 EGFR (CKD-EPI 2020) 99.3 >60 Jul 20, 2024 08:55 PM [facility] CBC BLOOD Specimen Type: BLOOD No comment entered. Ordering Provider: AURA ZACARIAS Report Released Date/Time: Jul 18, 2024 01:30 PM Reporting Lab: [address] [address] Performing Lab: [address] [address] WBC 5.1 10*3/uL 3.6-11.2 RBC 2.90 10*6/uL [...] 2.10-8.00 Jul 20, 2024 01:13 PM [facility] CBC BLOOD Specimen Type: BLOOD No comment entered. Ordering Provider: AURA ZACARIAS Report Released Date/Time: Jul 18, 2024 01:30 PM Reporting Lab: [address] [address] Performing Lab: [address] [address] WBC 5.6 10*3/uL 3.6-11.2 RBC 3.11 10*6/uL [...] 10*3/uL 2.10-8.00 Jul 19, 2024 06:42 AM [facility] PT/INR NEW (STL-MA) PLASMA Specimen Type: PLAS MA No comment entered. Ordering Provider: AURA ZACARIAS Report Released Date/Time: Jul 18, 2024 01:30 PM Reporting Lab: [facility] [address] [place] [address] Performing Lab: [address] [address] PROTIME 16.4 s H 9.4-12.5 INR VALUE 1.5 {INR} Jul 19, 2024 06:42 AM [facility] BASIC METABOLIC PANEL PLASMA Specimen Type: PL ASMA Comment: No hemolysis noted. Ordering Provider: AURA ZACARIAS Report Released Date/Time: Jul 18, 2024 01:30 PM Reporting Lab: [address] [address] Performing Lab: [address] [address] CREATININE 0.94 mg/dL 0.7-1.3 UREA NITROGEN 23.8 mg/dL 9.0-25.0 GLUCOSE 87 mg/dL 72-99 SODIUM 129 meq/L L 136-145 POTASSIUM 3.4 meq/L L 3.5-5 CHLORIDE 102 meq/L 98-107 CARBON DIOXIDE 20 meq/L L 22-31 CALCIUM 8.1 mg/dL L 8.4-10.4 EGFR (CKD-EPI 2020) 88.9 >60 Jul 19, 2024 06:42 AM [facility] CBC BLOOD Specimen Type: BLOOD No comment entered. Ordering Provider: AURA ZACARIAS Report Released Date/Time: Jul 18, 2024 01:30 PM Reporting Lab: [address] [address] Performing Lab: [address] [address] WBC 5.1 10*3/uL 3.6-11.2 RBC 2.45 10*6/uL [...] 1.0-7.0 Jul 18, 2024 08:51 PM [facility] CBC BLOOD Specimen Type: BLOOD No comment entered. Ordering Provider: AURA ZACARIAS Report Released Date/Time: Jul 18, 2024 01:30 PM Reporting Lab: [address] [address] Performing Lab: [address] [address] WBC 6.2 10*3/uL 3.6-11.2 RBC 2.44 10*6/uL [...] 2.10-8.00 Jul 18, 2024 04:19 PM [facility] CBC BLOOD Specimen Type: BLOOD No comment entered. Ordering Provider: AURA ZACARIAS Report Released Date/Time: Jul 18, 2024 01:30 PM Reporting Lab: [address] [address] Performing Lab: [address] [address] WBC 6.1 10*3/uL 3.6-11.2 RBC 2.57 10*6/uL [...] 10*3/uL 2.10-8.00 Jul 18, 2024 06:32 AM [facility] LACTIC ACID (STL-PB) PLASMA Specimen Type: NEIL SMA No comment entered. Ordering Provider: CAMDEN PATTON Report Released Date/Time: Jul 17, 2024 07:38 PM Reporting Lab: [address] [address] Performing Lab: [address] [address] LACTIC ACID (STL-PB) 1.3 mmol/L 0.5-2.0 Jul 18, 2024 06:32 AM [facility] PT/INR NEW (L-MA) PLASMA Specimen Type: PLAS MA No comment entered. Ordering Provider: CAMDEN PATTON Report Released Date/Time: Jul 17, 2024 07:38 PM Reporting Lab: [place] [address] Performing Lab: [address] [address] PROTIME 19.1 s H 9.4-12.5 INR VALUE 1.7 {INR} Jul 18, 2024 06:32 AM [facility] CBC BLOOD Specimen Type: BLOOD Comment: HGB Called to : Dr. Posadas MOD at: 0657 on: 07/18/24 by: [email or web address] Critical Verbal Readback Performed Ordering Provider: CAMDEN PATTON Report Released Date/Time: Jul 17, 2024 07:38 PM Reporting Lab: [address] [address] Performing Lab: [address] [address] WBC 7.0 10*3/uL 3.6-11.2 RBC 2.04 10*6/uL [...] 10*3/uL 2.10-8.00 Jul 18, 2024 06:32 AM [facility] VANCOMYCIN (STL) PLASMA Specimen Type: PLASM A No comment entered. Ordering Provider: CAMDEN PATTON Report Released Date/Time: Jul 17, 2024 07:38 PM Reporting Lab: [address] [address] Performing Lab: [address] [address] VANCOMYCIN (STL) 5.0 ug/mL L 10-15 Jul 18, 2024 06:32 AM [facility] MAGNESIUM PLASMA Specimen Type: PLASM A Comment: No hemolysis noted. Ordering Provider: CAMDEN PATTON Report Released Date/Time: Jul 17, 2024 07:38 PM Reporting Lab: [address] [address] Performing Lab: [address] [address] MAGNESIUM 1.5 mg/dL L 1.6-2.6 Jul 18, 2024 06:32 AM [facility] PHOSPHOROUS PLASMA Specimen Type: PLAS MA Comment: No hemolysis noted. Ordering Provider: CAMDEN PATTON Report Released Date/Time: Jul 17, 2024 07:38 PM Reporting Lab: [address] [address] Performing Lab: [facility] [address] [place] [address] PHOSPHOROUS 2.2 mg/dL L 2.3-4.7 Jul 18, 2024 06:32 AM [facility] COMPREHENSIVE METABOLIC PANEL PLASMA Specimen Type: PLASMA Comment: No hemolysis noted. Ordering Provider: CAMDEN PATTON Report Released Date/Time: Jul 17, 2024 07:38 PM Reporting Lab: [facility] [address] [facility] [facility] [address] Performing Lab: [address] [address] CREATININE 1.08 mg/dL 0.7-1.3 UREA NITROGEN 40.5 [...] 75.2 >60 Jul 18, 2024 12:05 AM [facility] HGB,HCT,PLT BLOOD Specimen Type: BLOOD No comment entered. Ordering Provider: ROSA VARGAS Report Released Date/Time: Jul 17, 2024 09:07 PM Reporting Lab: [facility] [address] [facility] [address] Performing Lab: [address] [address] HGB 7.3 g/dL L 13.1-16.8 HCT 21.0 L 38.2-48.4 PLT 64 10*3/uL L 150-400 Jul 17, 2024 07:45 PM [facility] MRSA SURVL NARES DNA NARES Specimen [...] Jul 17, 2024 07:38 PM Reporting Lab: [address] [address] Performing Lab: [address] [address] MRSA SURVL NARES DNA Negative Negative Jul 17, 2024 07:36 PM [facility] GLUCOSE,BLOOD-poct ([facility]) BLOOD Specimen Type: BLOOD Comment: Test Performed by: [id number] Meter #: [id number] Ordering Provider: CAMDEN PATTON Report Released Date/Time: Jul 17, 2024 07:48 PM Reporting Lab: [address] [address] Performing Lab: [address] [address] GLUCOSE,BLOOD-poct (L) 98 mg/dL 72-99 Jul 17, 2024 07:35 PM [facility] BLOOD GAS PANEL ABG ([facility]) VENOUS BLOOD Specimen Type : VENOUS BLOOD Comment: normalcy status - Below absolute low-off instrument scale Test Performed by: [id number] Meter #: [id number] Ordering Provider: CAMDEN PATTON Report Released Date/Time: Jul 17, 2024 07:37 PM Reporting Lab: [address] [address] Performing Lab: [address] [address] GEM PH 7.39 7.31-7.41 GEM PCO2 31 [...] TEMP 37.0 Jul 17, 2024 07:10 PM [facility] URINALYSIS W/ CX REFLEX (STL-PB) URINE Specim en Type: URINE No comment entered. Ordering Provider: CASEY BOONE Report Released Date/Time: Jul 17, 2024 04:24 PM Reporting Lab: [address] [address] Performing Lab: [address] [address] URINE COLOR Light-Yellow Yellow U.BILIRUBIN Negative mg/dL Negative U.PH 6.0 5.0-8.0 APPEARANCE Clear Clear U.NITRITE Negative mg/dL Negative URN.GLUCOSE Normal mg/dL Negative URN.PROTEIN Negative mg/dL URN.UROBILINOGEN Normal mg/dL Normal URN.BLOOD Negative mg/dL Negative-Trace URN.KETONES Trace mg/dL Negative-Trace URN.LEUK.EST. Negative mg/dL Negative-Tr april URN.SPECIFIC GRAVITY 1.029 Jul 17, 2024 06:25 PM [facility] RETICULOCYTE PANEL BLOOD Specimen Type: BLOOD No comment entered. Ordering Provider: CASEY BOONE Report Released Date/Time: Jul 17, 2024 06:13 PM Reporting Lab: [address] [address] Performing Lab: [address] [place] [address] RETIC RATIO 7.35 H 0.50-2.30 IRF 39.7 H 2.3-13.4 RETICULOCYTE HEMOGLOBIN EQUIVALENT 35.8 pg 28.2-36.6 RETIC COUNT,ABS 0.129 10*6/uL H 0.022-0.10 1 Jul 17, 2024 06:25 PM [facility] HAPTOGLOBIN (STL) PLASMA Specimen Type: PLASM A No comment entered. Ordering Provider: CASEY BOONE Report Released Date/Time: Jul 17, 2024 06:13 PM Reporting Lab: [address] [address] Performing Lab: [address] [address] HAPTOGLOBIN (STL) 93 mg/dL 44-215 Jul 17, 2024 06:25 PM [facility] LDH PLASMA Specimen Type: PLASM A No comment entered. Ordering Provider: CASEY BOONE Report Released Date/Time: Jul 17, 2024 06:13 PM Reporting Lab: [address] [address] Performing Lab: [address] [address] LDH 305 U/L H 125-243 Jul 17, 2024 06:25 PM [facility] CBC BLOOD Specimen Type: BLOOD Comment: HGB Called to : Watson White at: 1933 on:[id number] by: [facility] Critical Verbal Readback Performed Ordering Provider: CAMDEN PATTON Report Released Date/Time: Jul 17, 2024 07:09 PM Reporting Lab: [address] [address] Performing Lab: [address] [address] WBC 27.6 10*3/uL H 3.6-11.2 RBC 1.76 [...] H 2.10-8.00 Jul 17, 2024 04:59 PM [facility] BLOOD GAS PANEL ABG ([facility]) VENOUS BLOOD Specimen Type : VENOUS BLOOD Comment: Test Performed by: [id number] Meter #: [id number] Ordering Provider: CASEY BOONE Report Released Date/Time: Jul 17, 2024 05:00 PM Reporting Lab: [address] [address] Performing Lab: [address] [address] GEM PH 7.39 7.31-7.41 GEM PCO2 33 [...] TEMP 37.0 Jul 17, 2024 04:25 PM [facility] MAGNESIUM PLASMA Specimen Type: PLASM A Comment: No hemolysis noted. Ordering Provider: CASEY BOONE Report Released Date/Time: Jul 17, 2024 04:24 PM Reporting Lab: [facility] [address] [facility] [address] Performing Lab: [address] [address] MAGNESIUM 1.4 mg/dL L 1.6-2.6 Jul 17, 2024 04:25 PM [facility] PT/INR NEW ([facility]-MA) PLASMA Specimen Type: PLAS MA No comment entered. Ordering Provider: CASEY BOONE Report Released Date/Time: Jul 17, 2024 04:24 PM Reporting Lab: [place] [address] [facility] [address] Performing Lab: [place] [address] [facility] [address] PROTIME 25.3 s H 9.4-12.5 INR VALUE 2.3 {INR} Jul 17, 2024 04:25 PM [facility] COVID-19 DIAGNOSTIC (FLU/RSV)(STL) NASOPHARYNX Spec imen [...] Jul 17, 2024 04:24 PM Reporting Lab: [address] [address] Performing Lab: [address] [address] INFLUENZA A Negative Negative INFLUENZA B Negative Negative COVID-19 (STL-PB) Not Detected Not Detec nate RSV (Cepheid) NEGATIVE Negative Jul 17, 2024 04:25 PM [facility] COMPREHENSIVE METABOLIC PANEL PLASMA Specimen Type: PLASMA Comment: No hemolysis noted. Ordering Provider: CASEY BOONE Report Released Date/Time: Jul 17, 2024 04:24 PM Reporting Lab: [address] [address] Performing Lab: [address] [address] CREATININE 1.25 mg/dL 0.7-1.3 UREA NITROGEN 47.0 [...] >60 Jul 17, 2024 04:25 PM [facility] CBC BLOOD Specimen Type: BLOOD No comment entered. Ordering Provider: CASEY BOONE Report Released Date/Time: Jul 17, 2024 04:24 PM Reporting Lab: [address] [address] Performing Lab: [address] [address] WBC 42.4 10*3/uL H 3.6-11.2 RBC 2.20 [...] H 2.10-8.00 Jul 13, 2024 12:39 PM [facility] PHOSPHOROUS PLASMA Specimen Type: PLASM A Comment: No hemolysis noted. Ordering Provider: TONY SIMMONS Report Released Date/Time: Jun 07, 2024 01:01 PM Reporting Lab: [facility] [address] [facility] [address] Performing Lab: [place] [address] [facility] [address] PHOSPHOROUS 2.4 mg/dL 2.3-4.7 Jul 13, 2024 12:39 PM [facility] TSH W/ REFLEX FT4 (STL) PLASMA Specimen Type: PLASMA No comment entered. Ordering Provider: TONY SIMMONS Report Released Date/Time: Jun 07, 2024 01:01 PM Reporting Lab: [address] [address] Performing Lab: [address] [address] TSH 1.431 u[IU]/mL 0.47-5 Jul 13, 2024 12:39 PM [facility] MAGNESIUM PLASMA Specimen Type: PLASM A Comment: No hemolysis noted. Ordering Provider: TONY SIMMONS Report Released Date/Time: Jun 07, 2024 01:01 PM Reporting Lab: [address] [address] Performing Lab: [address] [address] MAGNESIUM 2.0 mg/dL 1.6-2.6 Jul 13, 2024 12:39 PM [facility] COMPREHENSIVE METABOLIC PANEL PLASMA Specimen Type: PLASMA Comment: No hemolysis noted. Ordering Provider: TONY SIMMONS Report Released Date/Time: Jun 07, 2024 01:01 PM Reporting Lab: [address] [address] Performing Lab: [address] [address] CREATININE 0.75 mg/dL 0.7-1.3 UREA NITROGEN 21.3 [...] >60 Jul 13, 2024 12:39 PM [facility] CBC BLOOD Specimen Type: BLOOD Comment: no clot Ordering Provider: TONY SIMMONS Report Released Date/Time: Jun 07, 2024 01:01 PM Reporting Lab: [facility] [address] [place] [address] Performing Lab: [address] [address] WBC 3.0 10*3/uL L 3.6-11.2 RBC 3.83 [...] 2.10-8.00 Jul 13, 2024 12:38 PM [facility] ALPHA-FETOPROTEIN(STL-PB) SERUM Specimen Type : SERUM No comment entered. Ordering Provider: CRYSTAL MASSEY Report Released Date/Time: Jul 04, 2024 03:26 PM Reporting Lab: [address] [id number] Performing Lab: [address] [address] ALPHA-FETOPROTEIN(STL-PB) 16.86 ng/mL H 1- 8.78 Jul 13, 2024 12:37 PM [facility] CARBOHYDRATE Ag SERUM Specimen Type: SERUM Comment: REFERENCE RANGE: <34 U/mL This test was performed using the Siemens chemiluminescent method. Values obtained from different assay methods cannot be used inter- changeably. CA 19-9 levels, regardless of value, should not be interpreted as absolute evidence of the presence or absence of disease. Test Performed by [facility], [place] [facility], [id number] [place] [address] Tristin Iyer M.D., Ph.D., Director of Laboratories , [place] [id number] Ordering Provider: CRYSTAL MASSEY Report Released Date/Time: Jul 04, 2024 03:28 PM Reporting Lab: [facility] [address] [facility] [address] Performing Lab: [facility] [id number] [facility] CARBOHYDRATE Ag 61 H SEE BELOW [...] and tobacco- related health factors from the [place] facility where the Encounter took place. Current Smoking Status This section includes the most current smoking, or tobacco-related health factor, from the [place] facility where the Encounter took place. Date/Time Current Smoking Status Comment Kaz ity Jul 17, 2024 04:02 PM [facility] ADMIT TOBACCO SCREEN NO [facility] Tobacco Use History This section includes a history of the smoking, or tobacco-related health factors, that were collected on or before the date of the Encounter. The data comes from the [place] facility where the Encounter took place. Date/Time Smoking Status/Tobacco Use Comment F acility Jan 20, 2023 03:49 PM VA-TOBACCO FORMER USER [facility] Jan 20, 2023 03:49 PM VA-TOBACCO QUIT 15 YRS OR MORE [facility] Feb 06, 2021 04:28 PM VA-TOBACCO FORMER USER [facility] Feb 06, 2021 04:28 PM VA-TOBACCO QUIT 15 YRS OR MORE [facility] Radiology Reports: +/- 30 days of [...] the Encounter. The data comes from all [facility] facilities. Date/Time Radiology Report Provider Source Aug 10, 2024 02:[address] ABD PEL W/CONT & 3D: ABRAHAM HAWK [id number] M Exm Date: AUG 10, 2024@14:33 Req Phys: YASIR SANZ MD Pat Loc: [facility] 2ND SHIFT (R Img Loc: [facility] Service: [address] [address] (Case [id number] COMPLETE) CT ABDOMEN AND PELVIS W/CONTRAST (CT Detailed) CPT:89267 Contrast Media : Non-ionic Iodinated Reason for Study: Abdominal pain, vomiting Clinical History: Responsible Attending: Svetlana Attending Contact Number: [phone] Resident Contact Number: Abdominal pain, vomiting Allergies listed in CPRS chart: Patient has answered NKA Creatinine:CREATININE 0.82 mg/dL 08/10/2024 11:30 /eGFR: STL EGFR (within one year). CREATININE 0.82 mg/dL (08/10/24 11:30) Wt: 152.1 lb [68.99 kg] (08/10/2024 11:31) History of: Renal failure, chronic or acute renal disease: NO Report Status: Verified Date Reported: AUG 10, 2024 Date Verified: AUG 10, 2024 Clinical Business Manager E-Sig:/ES/PETROS MCCORD Report: Case [id number]. CT ABDOMEN AND PELVIS W/CONTRAST. Gastrointestinal contrast: [...] hernias. Dictated by Kenneth Albright DO (residential child care counselor). I, Petros Mccord, have reviewed the images and report and concur with these findings. Primary Interpreting Staff: PETROS MCCORD MD (Clinical Business Manager) Primary Interpreting Resident: KENNETH ALBRIGHT, Golf Cart Repairer /PETROS REESE [facility] Aug 01, 2024 10:20 AM PET/CT TUMOR IMAGING (SKULL TO MID-THIGH)-P: ABRAHAM HAWK [id number] -1955 M Exm Date: AUG 01, 2024@10:20 Req Phys: TONY SIMMONS Loc: [facility]-ONCOLOGY [facility] (Req'g Loc) Img Loc: -PET-CT Service: [address] [address] (Case [id number] COMPLETE) PET/CT TUMOR SKULL BASE TO MID-T(NM Detailed) CPT:41811 CPT Modifiers : PS PET TUMOR SUBSQ TX STRATEGY Reason for Study: Nasopharyngeal cancer (Case [id number] COMPLETE) F-18 FLUORODEOXYGLUCOSE (FDG),PER(NM Detailed) CPT:A9552 Clinical History: Report Status: Verified Date Reported: AUG 01, 2024 Date Verified: AUG 01, 2024 Clinical Business Manager E-Sig:/LOLY/NATASHA LEIJA Report: PATIENT NAME: ABRAHAM HAWK. CASE #: [id number], [id number]. PROCEDURE: PET/CT study Indication: Nasopharyngeal cancer HISTORY: [...] lytic osseous lesion is noted within the pszff-pb-wkol. Impression: 1. The previous sites of FDG [...] NEEDED Primary Interpreting Staff: NATASHA LEIJA MD (Clinical Business Manager) /PFT NATASHA LEIJA [facility] Jul 27, 2024 03:41 PM CHEST PORTABLE: ABRAHAM HAWK [id number] -1955 M Exm Date: JUL 27, 2024@15:41 Req Phys: GENDI,ELIZABETH Pat Loc: [facility]-EMERGENCY DEPT 2ND SHIFT (R Img Loc: [facility]-MAIN RADIOLOGY SUITE Service: [address] [address] (Case [id number] COMPLETE) CHEST PORTABLE (RAD Detailed) CPT:48307 Proc Modifiers : Portable Reason for Study: sob Clinical History: Report Status: Verified Date Reported: JUL 27, 2024 Date Verified: JUL 27, 2024 Clinical Business Manager E-Sig:/ES/Sol Abraham MD Report: CASE [id number]. AP portable view chest. COMPARISON: Chest x-ray [...] CT. Ongoing follow-up advised. Report dictated by Azucena Sultana D.O. (residential child care counselor) ISol, have reviewed the images and report and concur with these findings. Primary Interpreting Staff: Sol Abraham MD, Radiologist (Clinical Business Manager) Primary Interpreting Resident: Azucena Sultana D.O., Resident Physician /SOL DHALIWAL [facility] Jul 17, 2024 06:[address] ABD PEL W/CONT & 3D: ABRAHAM HAWK [id number] -1955 M Ex Date: JUL 17, 2024@18:18 Req Phys: CASEY BOONE Loc: 4-C [facility]/07-17-2024@19:47 Img Loc: [facility]-CT IMAGING Service: [address] [address] (Case [id number] COMPLETE) CT ABDOMEN AND PELVIS W/CONTRAST (CT Detailed) CPT:66488 Contrast Media : Non-ionic Iodinated Reason for Study: septic shock, abd pain Clinical History: Responsible Attending: Nils Attending Contact Number: [phone] Resident Contact Number: Septic shock, Patient with [...] 17, 2024 Date Verified: JUL 17, 2024 Clinical Business Manager E-Sig: Report: CT THORAX W/CONT (PE) [PRINTSET], CT ABDOMEN AND PELVIS W/CONTRAST [PRINTSET] Comparison: 03/17/2022, 04/23/2024 Clinical History: RO PE The study [place] the [place]. Chest 12 series and 1585 images were subsequently received by the [place] [facility] ([facility] for interpretation. Abdomen and pelvis 9 series and 1365 images were subsequently received by the [place] [facility] ([facility] for interpretation. Total [...] from 09/12/2023. READING PHYSICIAN: Guilherme Talbert M.D. -[phone] 07/17/2024 17:44 [facility] [phone] (For Medical Practitioner Use Only) Attention Patients / Veterans: If you have questions or concerns about these test results, please contact your ordering provider or primary care team. Primary Interpreting Staff: RADIOLOGY,OUTSIDE SERVICE, Staff Physician / RADIOLOGY,OUTSIDE SERVICE [facility] Jul 17, 2024 06:[address] PE CHEST W/3D: CARINEABRAHAM [id number] -1955 M Exm Date: JUL 17, 2024@18:17 Req Phys: CASEY BOONE Loc: 4-C [facility]/07-17-2024@19:47 Im Loc: -CT IMAGING [facility] Service: Unknown [facility] [address] [place] [address] (Case [id number] COMPLETE) CT THORAX W/CONT (PE) (CT Detailed) CPT:13113 Contrast Media : unspecified contrast media Reason for Study: RO PE Clinical History: Responsible Attending: Nils Attending Contact Number: [phone] Resident Contact Number: Patient with HCC and [...] 17, 2024 Date Verified: JUL 17, 2024 Clinical Business Manager E-Sig: Report: CT THORAX W/CONT (PE) [PRINTSET], CT ABDOMEN AND PELVIS W/CONTRAST [PRINTSET] Comparison: 03/17/2022, 04/23/2024 Clinical History: RO PE The study was [place] Chest 12 series and 1585 images were [place] by the [place] [facility] ([facility]) for interpretation. Abdomen and pelvis 9 series and 1365 images were subsequently received by the [place] [facility] ([facility]P[place] for interpretation. Total [...] from 09/12/2023. READING PHYSICIAN: Guilherme Talbert M.D. -[phone] 07/17/2024 17:44 [facility] National Teleradiology Program [phone] (For Medical Practitioner Use Only) Attention Patients / Veterans: If you have questions or concerns about these test results, please contact your ordering provider or primary care team. Primary Interpreting Staff: RADIOLOGY,OUTSIDE SERVICE, Staff Physician / RADIOLOGY,OUTSIDE SERVICE [facility] Pathology Reports: +/- 30 days [...] the Encounter. The [place] comes from all [place]. Date/Time Pathology Report Provider Source [...] Performing Laboratory: Surgical Pathology Report Performed By: [address]# [id number] [address] [place] [id number] $FTR - - - - - - [...] - - ABRAHAM HAWK STANDARD FORM 515 ID:[id number] SEX:M :1955 AGE: 68 LOC:APFEE PCP: Deirdre Wild /eze [place] Pathologist Signed: 08/16/2024 09:43 CRISTIANA [place] [facility] Aug 11, 2024 06:00 AM LR MICROBIOLOGY RE PORT: Accession [UID]: [id number] [[id number]] Received: Aug 11, 2024@06:19 Collection sample: B D BLD. BOTTLE Collection date: Aug 11, 2024 06:00 Site/Specimen: BLOOD Provider: GILSON OG Test(s) ordered: BLOOD CULT (SET 1)............ completed: Aug 17, 2024 10:06 * BACTERIOLOGY FINAL REPORT => Aug 17, 2024 10:22 TECH CODE: [id number] Bacteriology Remark(s): 2. KAA Culture shows NO GROWTH IN 6 DAYS =--=--=--=--=--=--=--=--=-- =--=--=--=--=--=--=--=--=-- =--=--=--=--=--=--=--=-- Performing Laboratory: Bacteriology Report Performed By: [facility] [address] [place] [address] CLIA# [id number] [address] [place] [address] JULISSA BROWN [facility] Jul 17, 2024 05:10 PM LR MICROBIOLOGY RE PORT: Accession [UID]: [id number] [[id number]] Received: Jul 17, 2024@17:30 Collection sample: B D BLD. BOTTLE (SET 2)Collection date: Jul 17, 2024 17:10 Site/Specimen: BLOOD Provider: CASEY BOONE Test(s) ordered: BLOOD CULT (SET 2)............ completed: Jul 23, 2024 14:26 * BACTERIOLOGY FINAL REPORT => Jul 23, 2024 14:28 TECH CODE: [id number] Bacteriology Remark(s): CULTURE IS NEGATIVE TO DATE, ALL POSITIVES ARE ROUTINELY CALLED. KI Culture shows NO GROWTH IN 6 DAYS. 07/23/24 KI =--=--=--=--=--=--=--=--=-- =--=--=--=--=--=--=--=--=-- =--=--=--=--=--=--=--=-- Performing Laboratory: Bacteriology Report Performed By: [address] CLIA# [id number] [address] [place] [id number] [facility]UL[facility]SA BROWN [facility] Jul 17, 2024 05:10 PM MICROBIOLOGY RE PORT: Accession [UID]: [id number] [[id number]] Received: Jul 17, 2024@17:30 Collection sample: B D BLD. BOTTLE Collection date: Jul 17, 2024 17:10 Site/Specimen: BLOOD Provider: CASEY BOONE Test(s) ordered: BLOOD CULT (SET 1)............ completed: Jul 23, 2024 14:26 * BACTERIOLOGY FINAL REPORT => Jul 23, 2024 14:28 TECH CODE: [id number] Bacteriology Remark(s): CULTURE IS NEGATIVE TO DATE, ALL POSITIVES ARE ROUTINELY CALLED. KI Culture shows NO GROWTH IN 6 DAYS. 07/23/24 KI =--=--=--=--=--=--=--=--=-- =--=--=--=--=--=--=--=--=-- =--=--=--=--=--=--=--=-- Performing Laboratory: Bacteriology Report Performed By: [address] CLIA# [id number] [address] [address] [facility] Encounter Notes: All associated encounter notes This section contains the clinical notes associated to the Encounter. 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 anemic Neurological: No significant abnormality ASA Score: 4 Abdominal and Pelvic Surgical History: denies Sedation/Anesthesia Plan: Anesthesia consult History of previous adverse reaction to sedation: No Tobacco use: No Alcohol use: No Recreational drug use: No Last oral intake:clear broth >4hours ago Time spent:5-9 minutes /loly/ GIOVANNA FALCON Physician Senior Agricultural Assistant Signed: 07/18/2024 12:43 Receipt Acknowledged By: 07/18/2024 12:46 /loly/ Azucena Mitchell MD Staff Physician GIOVANNA FALCON [facility]
--- OUTSIDE RECORDS SUMMARY | 2024-10-08 17:11 | XMS_ITS | Encounter Summary ---
Author Name [facility] [facility] [place] Address [address] [place] [address] Care Team Providers Care Margarine Churn Operator Name Role Phone SUKHJINDER CHAHAL Primary [...] SUPPL EMENT Nov 25, 2021 PLAN G [id number] [phone] ELLEN HAWK VID PATIENT AARP MED SUPP MEDIGAP PLAN G MEDIC ARE SUPPL EMENT Nov 25, 2021 PLAN G [id number] [phone] ELLEN HAWK VID PATIENT MEDICARE (WNR) MEDICARE (M) PART B Sep 25, 2021 PART B [id number] [phone] ELLEN HAWK VID PATIENT MEDICARE (WNR) MEDICARE (M) PART A Aug 25, 2021 PART A [id number] ELLEN HAWKD PATIENT Selected Encounter This section includes the information on record at [place] for the Encounter. 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 Date/Time Primary/Secondary Diagnosis Diagnosis Name Provider Source Jul 19, 2024 02:43 PM PRIMARY Spiritual or rastafarian counseling DANNI RENO [facility] Plan of Treatment: Future Appointments (+ 6 months) and Future Tests (+/- 45 days) The Plan of Treatment section includes future care activities for the patient [facility] [place] [facility] This section includes future appointments and future orders which are active, pending or scheduled. Future Appointments This section includes appointments that were scheduled to occur 6 months from the date of the Encounter, up to a maximum of 20 appointments. The data comes from all [place] treatment facilities. Appointment Date/Time Appointment Type Appointme nt Facility Name Jul 25, 2024 01:00 PM AMBULATORY - MEDICINE [facility] Jul 26, 2024 10:00 AM AMBULATORY - MEDICINE [facility] Jul 27, 2024 03:14 PM AMBULATORY - MEDICINE [facility] Aug 01, 2024 10:15 AM AMBULATORY - NONE [facility] Aug 02, 2024 11:30 AM AMBULATORY - MEDICINE [facility] Aug 02, 2024 11:31 AM AMBULATORY - MEDICINE [facility] Aug 10, 2024 11:00 AM AMBULATORY - MEDICINE [facility] Aug 10, 2024 11:31 AM AMBULATORY - MEDICINE [facility] Aug 10, 2024 11:59 AM AMBULATORY - MEDICINE [facility] Aug 16, 2024 10:00 AM AMBULATORY - MEDICINE [facility] Aug 17, 2024 08:30 AM AMBULATORY - MEDICINE [facility] Aug 17, 2024 09:00 AM AMBULATORY - MEDICINE [facility] Aug 17, 2024 09:30 AM AMBULATORY - MEDICINE [facility] Aug 23, 2024 12:00 PM AMBULATORY - NONE [facility] Aug 31, 2024 02:00 PM AMBULATORY - MEDICINE [facility] Sep 07, 2024 11:00 AM AMBULATORY - MEDICINE [facility] Sep 07, 2024 01:00 PM AMBULATORY - MEDICINE [facility] Oct 15, 2024 03:00 PM AMBULATORY - SURGERY [facility] Oct 19, 2024 02:00 PM AMBULATORY - NONE [facility] Active, Pending, and Scheduled Orders This section includes a listing of several types of active, pending, and scheduled orders, including clinic medications orders, diagnostic test orders, procedure orders and consult orders; where the start date of the order is 45 days before the date of the Encounter or 45 days after the date of theEncounter. The data comes from all [facility] facilities. Test Date/Time Test Type Test Details Facility Name Jul 17, 2024 12:00 AM Laboratory - Blood Bank Order RED BLOOD CELLS - LAB VBECS - NO SPECIMEN REQUIRED [facility] Jul 17, 2024 12:00 AM Laboratory - Blood Bank Order FRESH FROZEN PLASMA - LAB VBECS - NO SPECIMEN REQUIRED [facility] Jul 17, 2024 06:13 PM Laboratory - Blood Bank Order DIRECT ANTIGLOBULIN TEST - LAB BLOOD STAT [facility] Jul 17, 2024 06:13 PM Laboratory - Blood Bank Order TYPE & SCREEN - LAB BLOOD [facility] Jul 18, 2024 12:00 AM Laboratory - Blood Bank Order PLATELETS - LAB VBECS - NO SPECIMEN REQUIRED [facility] Aug 10, 2024 12:00 AM Laboratory - Blood Bank Order RED BLOOD CELLS - LAB VBECS - NO SPECIMEN REQUIRED JOANN [facility] Aug 10, 2024 02:00 PM Laboratory - Blood Bank Order TYPE & SCREEN - LAB BLOOD [facility] Aug 10, 2024 05:43 PM Laboratory - Chemistry Order LIPASE GREEN LI/HEP BLD/PLAS PLASMA STAT I [facility] Aug 10, 2024 05:44 PM Laboratory - Microbiology Order BLOOD CULT (SET 2) B D BLD. BOTTLE (SET 2) BLOOD JOANN I NOW [facility] Aug 11, 2024 02:00 AM Laboratory - Chemistry Order CBC BLOOD WC [facility] Aug 14, 2024 02:00 AM Laboratory - Chemistry Order CBC BLOOD WC [facility] Aug 15, 2024 02:00 AM Laboratory - Chemistry Order CBC BLOOD WC [facility] Aug 16, 2024 12:00 AM Laboratory - Chemistry Order CBC BLOOD SP [facility] Aug 16, 2024 08:00 PM Laboratory - Chemistry Order CBC BLOOD LC [facility] Aug 17, 2024 08:00 PM Laboratory - Chemistry Order CBC BLOOD LC [facility] Lab Results: +/- 30 [...] Type Comment Aug 17, 2024 03:34 PM [facility] TSH W/ REFLEX FT4 (STL) PLASMA Specimen Type: PLASMA No comment entered. Ordering Provider: TONY SIMMONS Report Released Date/Time: Aug 10, 2024 12:01 PM Reporting Lab: [facility] [address] [facility] [place] [address] Performing Lab: [place] [address] [facility] [place] [address] TSH 4.570 u[IU]/mL 0.47-5 Aug 17, 2024 03:34 PM [facility] COMPREHENSIVE METABOLIC PANEL PLASMA Specimen Type: PLASMA Comment: No hemolysis noted. Ordering Provider: TONY SIMMONS Report Released Date/Time: Aug 10, 2024 12:01 PM Reporting Lab: [address] [address] Performing Lab: [address] [address] CREATININE 0.85 mg/dL 0.7-1.3 UREA NITROGEN 11.5 [...] 95.2 >60 Aug 17, 2024 03:[address] [facility] CBC BLOOD Specimen Type: BLOOD Comment: No Clots Ordering Provider: TONY SIMMONS Report Released Date/Time: Aug 10, 2024 12:01 PM Reporting Lab: [address] [address] Performing Lab: [address] [address] WBC 5.0 10*3/uL 3.6-11.2 RBC 2.83 10*6/uL [...] 4.9 1.0-7.0 Aug 15, 2024 07:[address] [facility] CBC BLOOD Specimen Type: BLOOD Comment: No clots detected in specimen. Ordering Provider: CASH CLOUD Report Released Date/Time: Aug 12, 2024 01:47 PM Reporting Lab: [place] [id number] [facility] [address] Performing Lab: [address] [address] WBC 4.9 10*3/uL 3.6-11.2 RBC 2.93 10*6/uL [...] 10*3/uL 2.10-8.00 Aug 15, 2024 04:54 AM [facility] GLUCOSE,BLOOD-poct (STL) BLOOD Specimen Type: BLOOD Comment: Test Performed by: [id number] Meter #: [id number] Ordering Provider: DEIRDRE WILD Report Released Date/Time: Aug 15, 2024 05:21 AM Reporting Lab: [place] [address] Performing Lab: [address] [address] GLUCOSE,BLOOD-poct (STL) 112 mg/dL H 72-99 Aug 14, 2024 08:[address] [facility] CRP PLASMA Specimen Type: PLASM A No comment entered. Ordering Provider: CASH CLOUD Report Released Date/Time: Aug 12, 2024 10:14 AM Reporting Lab: [place] [address] Performing Lab: [place] [address] CRP 0.7 mg/dL H 0-0.5 Aug 14, 2024 08:[address] [facility] CBC BLOOD Specimen Type: BLOOD No comment entered. Ordering Provider: GILSON OG Report Released Date/Time: Aug 10, 2024 04:01 PM Reporting Lab: [place] [address] Performing Lab: [address] [address] WBC 4.6 10*3/uL 3.6-11.2 RBC 2.83 10*6/uL [...] 10*3/uL 2.10-8.00 Aug 14, 2024 07:54 PM [facility] GLUCOSE,BLOOD-poct (STL) BLOOD Specimen Type: BLOOD Comment: Test Performed by: [id number] Meter #: [id number] Ordering Provider: DEIRDRE WILD Report Released Date/Time: Aug 14, 2024 08:15 PM Reporting Lab: [address] [address] Performing Lab: [address] [address] GLUCOSE,BLOOD-poct (STL) 112 mg/dL H 72-99 Aug 14, 2024 04:10 PM [facility] GLUCOSE,BLOOD-poct (STL) BLOOD Specimen Type: BLOOD Comment: Test Performed by: [id number] Meter #: [id number] Ordering Provider: DEIRDRE WILD Report Released Date/Time: Aug 14, 2024 04:43 PM Reporting Lab: [address] [address] Performing Lab: [address] [address] GLUCOSE,BLOOD-poct (STL) 115 mg/dL H 72-99 Aug 14, 2024 02:05 PM [facility] COMPREHENSIVE METABOLIC PANEL PLASMA Specimen Type: PLASMA Comment: No hemolysis noted. Ordering Provider: GILSON OG Report Released Date/Time: Aug 14, 2024 06:56 AM Reporting Lab: [address] [address] Performing Lab: [address] [place] [address] CREATININE 0.75 mg/dL 0.7-1.3 UREA NITROGEN 9.3 [...] 98.9 >60 Aug 14, 2024 02:[address] [facility] CBC BLOOD Specimen Type: BLOOD Comment: No platelet clots or clumping detected. Ordering Provider: GILSON OG Report Released Date/Time: Aug 10, 2024 04:01 PM Reporting Lab: [address] [address] Performing Lab: [address] [address] WBC 4.6 10*3/uL 3.6-11.2 RBC 3.06 10*6/uL [...] 10*3/uL 2.10-8.00 Aug 14, 2024 10:12 AM [facility] GLUCOSE,BLOOD-poct (STL) BLOOD Specimen Type: BLOOD Comment: Test Performed by: [id number] Meter #: [id number] Ordering Provider: DEIRDRE WILD Report Released Date/Time: Aug 14, 2024 10:13 AM Reporting Lab: [address] [address] Performing Lab: [address] [address] GLUCOSE,BLOOD-poct ([facility]) 112 mg/dL H 72-99 Aug 14, 2024 09:20 AM [facility] PT/INR NEW (L-MA) PLASMA Specimen Type: PLAS MA No comment entered. Ordering Provider: GILSON OG Report Released Date/Time: Aug 14, 2024 09:06 AM Reporting Lab: [address] [address] Performing Lab: [address] [address] PROTIME 13.6 s H 9.4-12.5 INR VALUE 1.2 {INR} Aug 14, 2024 06:[address] [facility] CBC BLOOD Specimen Type: BLOOD No comment entered. Ordering Provider: CASH CLOUD Report Released Date/Time: Aug 12, 2024 01:47 PM Reporting Lab: [address] [address] Performing Lab: [address] [address] WBC 3.8 10*3/uL 3.6-11.2 RBC 2.56 10*6/uL [...] 10*3/uL 2.10-8.00 Aug 14, 2024 06:03 AM [facility] GLUCOSE,BLOOD-poct (STL) BLOOD Specimen Type: BLOOD Comment: Test Performed by: [id number] Meter #: [id number] Ordering Provider: DEIRDRE WILD Report Released Date/Time: Aug 14, 2024 06:07 AM Reporting Lab: [address] [address] Performing Lab: [address] [address] GLUCOSE,BLOOD-poct (STL) 114 mg/dL H 72-99 Aug 13, 2024 09:11 PM [facility] GLUCOSE,BLOOD-poct (STL) BLOOD Specimen Type: BLOOD Comment: Test Performed by: [id number] Meter #: [id number] Ordering Provider: DEIRDRE WILD Report Released Date/Time: Aug 13, 2024 09:40 PM Reporting Lab: [address] [address] Performing Lab: [address] [address] GLUCOSE,BLOOD-poct (STL) 160 mg/dL H 72-99 Aug 13, 2024 07:10 PM [facility] COMPREHENSIVE METABOLIC PANEL PLASMA Specimen Type: PLASMA Comment: No hemolysis noted. Ordering Provider: GILSON OG Report Released Date/Time: Aug 14, 2024 07:03 AM Reporting Lab: [place] [address] [facility] [place] [address] Performing Lab: [address] [address] CREATININE 0.75 mg/dL 0.7-1.3 UREA NITROGEN 10.3 [...] 98.9 >60 Aug 13, 2024 07:[address] [facility] CRP PLASMA Specimen Type: PLASM A No comment entered. Ordering Provider: CASH CLOUD Report Released Date/Time: Aug 12, 2024 10:14 AM Reporting Lab: [facility] [address] [place] [address] Performing Lab: [address] [address] CRP 0.7 mg/dL H 0-0.5 Aug 13, 2024 07:[address] [facility] CBC BLOOD Specimen Type: BLOOD No comment entered. Ordering Provider: GILSON OG Report Released Date/Time: Aug 10, 2024 04:01 PM Reporting Lab: [place] [address] [facility] [place] [address] Performing Lab: [address] [address] WBC 5.3 10*3/uL 3.6-11.2 RBC 2.67 10*6/uL [...] 10*3/uL 2.10-8.00 Aug 13, 2024 04:35 PM [facility] GLUCOSE,BLOOD-poct (STL) BLOOD Specimen Type: BLOOD Comment: Test Performed by: [id number] Meter #: [id number] Ordering Provider: DEIRDRE WILD Report Released Date/Time: Aug 13, 2024 05:18 PM Reporting Lab: [address] [address] Performing Lab: [address] [address] GLUCOSE,BLOOD-poct (STL) 113 mg/dL H 72-99 Aug 13, 2024 02:[address] [facility] CBC BLOOD Specimen Type: BLOOD No comment entered. Ordering Provider: GILSON OG Report Released Date/Time: Aug 10, 2024 04:01 PM Reporting Lab: [address] [address] Performing Lab: [address] [address] WBC 5.8 10*3/uL 3.6-11.2 RBC 2.77 10*6/uL [...] 10*3/uL 2.10-8.00 Aug 13, 2024 11:37 AM [facility] GLUCOSE,BLOOD-poct (STL) BLOOD Specimen Type: BLOOD Comment: Test Performed by: [id number] Meter #: [id number] Ordering Provider: DEIRDRE WILD Report Released Date/Time: Aug 13, 2024 11:38 AM Reporting Lab: [place] [address] Performing Lab: [place] [phone] GLUCOSE,BLOOD-poct (L) 131 mg/dL H 72-99 Aug 13, 2024 08:[address] [facility] CBC BLOOD Specimen Type: BLOOD Comment: no clot Ordering Provider: CASH CLOUD Report Released Date/Time: Aug 12, 2024 01:47 PM Reporting Lab: [place] [address] [place] [phone] Performing Lab: [place] [phone] WBC 3.0 10*3/uL L 3.6-11.2 RBC 2.61 [...] 10*3/uL 2.10-8.00 Aug 13, 2024 04:45 AM [facility] GLUCOSE,BLOOD-poct (STL) BLOOD Specimen Type: BLOOD Comment: Test Performed by: [id number] Meter #: [id number] Ordering Provider: DEIRDRE WILD Report Released Date/Time: Aug 13, 2024 06:18 AM Reporting Lab: [address] [address] Performing Lab: [address] [address] GLUCOSE,BLOOD-poct (STL) 139 mg/dL H 72-99 Aug 12, 2024 10:10 PM [facility] GLUCOSE,BLOOD-poct (STL) BLOOD Specimen Type: BLOOD Comment: Test Performed by: [id number] Meter #: [id number] Ordering Provider: DEIRDRE WILD Report Released Date/Time: Aug 12, 2024 10:50 PM Reporting Lab: [address] [address] Performing Lab: [address] [address] GLUCOSE,BLOOD-poct (STL) 105 mg/dL H 72-99 Aug 12, 2024 08:[address] [facility] CRP PLASMA Specimen Type: PLASM A No comment entered. Ordering Provider: CASH CLOUD Report Released Date/Time: Aug 12, 2024 10:14 AM Reporting Lab: [address] [address] Performing Lab: [address] [address] CRP 0.6 mg/dL H 0-0.5 Aug 12, 2024 08:[address] [facility] CBC BLOOD Specimen Type: BLOOD Comment: SEE PREVIOUS DIFFERENTIAL ON 08/12/24 @ 1807 Ordering Provider: GILSON OG Report Released Date/Time: Aug 10, 2024 04:01 PM Reporting Lab: [address] [address] Performing Lab: [address] [address] WBC 5.0 10*3/uL 3.6-11.2 RBC 2.78 10*6/uL [...] 6.5 1.0-7.0 Aug 12, 2024 04:51 PM [facility] GLUCOSE,BLOOD-poct (STL) BLOOD Specimen Type: BLOOD Comment: Test Performed by: [id number] Meter #: [id number] Ordering Provider: DEIRDRE WILD Report Released Date/Time: Aug 12, 2024 05:07 PM Reporting Lab: [address] [address] Performing Lab: [address] [address] GLUCOSE,BLOOD-poct (STL) 135 mg/dL H 72-99 Aug 12, 2024 02:[address] [facility] CBC BLOOD Specimen Type: BLOOD No comment entered. Ordering Provider: GILSON OG Report Released Date/Time: Aug 10, 2024 04:01 PM Reporting Lab: [facility] [address] [facility] [address] Performing Lab: [address] [address] WBC 4.0 10*3/uL 3.6-11.2 RBC 2.56 10*6/uL [...] 10*3/uL 2.10-8.00 Aug 12, 2024 11:51 AM [facility] GLUCOSE,BLOOD-poct (STL) BLOOD Specimen Type: BLOOD Comment: Test Performed by: [id number] Meter #: [id number] Ordering Provider: DEIRDRE WILD Report Released Date/Time: Aug 12, 2024 12:26 PM Reporting Lab: [address] [address] Performing Lab: [address] [address] GLUCOSE,BLOOD-poct (STL) 139 mg/dL H 72-99 Aug 12, 2024 07:[address] [facility] CBC BLOOD Specimen Type: BLOOD Comment: prev diff 08/11/24. Ordering Provider: GILSON OG Report Released Date/Time: Aug 10, 2024 04:01 PM Reporting Lab: [address] [address] Performing Lab: [address] [address] WBC 3.0 10*3/uL L 3.6-11.2 RBC 2.54 [...] 0.00-0. 20 Aug 12, 2024 05:49 AM [facility] GLUCOSE,BLOOD-poct (L) BLOOD Specimen Type : BLOOD Comment: Test Performed by: [id number] Meter #: [id number] Ordering Provider: DEIRDRE WILD Report Released Date/Time: Aug 12, 2024 05:50 AM Reporting Lab: [address] [address] Performing Lab: [facility] [address] [place] [address] GLUCOSE,BLOOD-poct (STL) 112 mg/dL H 72-99 Aug 12, 2024 01:[address] [facility] CBC BLOOD Specimen Type: BLOOD Comment: SEE PREVIOUS DIFFERENTIAL ON 08/12/24 @ 0239 [facility] Ordering Provider: GILSON OG Report Released Date/Time: Aug 10, 2024 04:01 PM Reporting Lab: [address] [address] Performing Lab: [address] [address] WBC 2.6 10*3/uL L 3.6-11.2 RBC 2.42 [...] 6.4 1.0-7.0 Aug 11, 2024 09:[address] [facility] CBC BLOOD Specimen Type: BLOOD No comment entered. Ordering Provider: GILSON OG Report Released Date/Time: Aug 10, 2024 04:01 PM Reporting Lab: [place] [address] [facility] [place] [address] Performing Lab: [place] [address] [facility] [place] [address] WBC 3.6 10*3/uL 3.6-11.2 RBC 2.54 10*6/uL [...] 10*3/uL 2.10-8.00 Aug 11, 2024 09:17 PM [facility] GLUCOSE,BLOOD-poct (STL) BLOOD Specimen Type: BLOOD Comment: Test Performed by: [id number] Meter #: [id number] Ordering Provider: DEIRDRE WILD Report Released Date/Time: Aug 11, 2024 09:21 PM Reporting Lab: [place] [address] [facility] [place] [address] Performing Lab: [address] [address] GLUCOSE,BLOOD-poct (STL) 167 mg/dL H 72-99 Aug 11, 2024 04:[address] [facility] CBC BLOOD Specimen Type: BLOOD No comment entered. Ordering Provider: GOVINDJI,SHIV Report Released Date/Time: Aug 11, 2024 04:41 PM Reporting Lab: [address] [address] Performing Lab: [address] [address] WBC 4.0 10*3/uL 3.6-11.2 RBC 2.74 10*6/uL [...] 10*3/uL 2.10-8.00 Aug 11, 2024 04:30 PM [facility] GLUCOSE,BLOOD-poct (STL) BLOOD Specimen Type: BLOOD Comment: Test Performed by: [id number] Meter #: [id number] Ordering Provider: DEIRDRE WILD Report Released Date/Time: Aug 11, 2024 06:06 PM Reporting Lab: [address] [address] Performing Lab: [address] [address] GLUCOSE,BLOOD-poct (STL) 95 mg/dL 72-99 Aug 11, 2024 11:08 AM [facility] GLUCOSE,BLOOD-poct (STL) BLOOD Specimen Type: BLOOD Comment: Test Performed by: [id number] Meter #: [id number] Ordering Provider: DEIRDRE WILD Report Released Date/Time: Aug 11, 2024 11:10 AM Reporting Lab: [place] [address] [facility] [place] [address] Performing Lab: [address] [address] GLUCOSE,BLOOD-poct (L) 117 mg/dL H 72-99 Aug 11, 2024 06:00 AM [facility] IRON/TIBC PROFILE SERUM Specimen Type: SERUM No comment entered. Ordering Provider: GILSON OG Report Released Date/Time: Aug 10, 2024 04:02 PM Reporting Lab: [address] [address] Performing Lab: [address] [address] TIBC 263 ug/dL 250-450 TRANSFERRIN 210 mg/dL 163-344 IRON SATURATION 8 L 20-50 IRON 21 ug/dL L 65-175 Aug 11, 2024 06:[address] [facility] APTT PLASMA Specimen Type: PLASM A No comment entered. Ordering Provider: GILSON OG Report Released Date/Time: Aug 10, 2024 06:20 PM Reporting Lab: [address] [address] Performing Lab: [address] [address] APTT 25.5 s L 26.7-39.9 Aug 11, 2024 06:00 AM [facility] HEPATIC FUNTION PANEL (STL) PLASMA Specimen Ty pe: PLASMA No comment entered. Ordering Provider: GILSON OG Report Released Date/Time: Aug 10, 2024 04:02 PM Reporting Lab: [address] [address] Performing Lab: [place] [address] [facility] [place] [address] PROTEIN 5.4 g/dL L 6-8.6 ALBUMIN 2.6 g/dL L 3.4-5 TOTAL BILIRUBIN 0.8 mg/dL 0.2-1.2 ALKALINE PHOSPHATASE 72 U/L 40-150 AST/SGOT 28 U/L 5-34 ALT/SGPT 10 U/L 8-40 CONJ. BILIRUBIN 0.4 mg/dL 0-0.5 Aug 11, 2024 06:00 AM [facility] PT/INR NEW (STL-MA) PLASMA Specimen Type: PLAS MA No comment entered. Ordering Provider: GILSON OG Report Released Date/Time: Aug 10, 2024 06:20 PM Reporting Lab: [address] [address] Performing Lab: [address] [address] PROTIME 15.5 s H 9.4-12.5 INR VALUE 1.4 {INR} Aug 11, 2024 06:[address] [facility] CBC BLOOD Specimen Type: BLOOD No comment entered. Ordering Provider: GILSON OG Report Released Date/Time: Aug 10, 2024 04:01 PM Reporting Lab: [address] [address] Performing Lab: [address] [address] WBC 2.4 10*3/uL L 3.6-11.2 RBC 2.42 [...] L 2.10-8.00 Aug 10, 2024 09:00 PM [facility] BASIC METABOLIC PANEL PLASMA Specimen Type: PL ASMA Comment: No hemolysis noted. Ordering Provider: GILSON OG Report Released Date/Time: Aug 10, 2024 04:01 PM Reporting Lab: [address] [address] Performing Lab: [address] [address] CREATININE 0.84 mg/dL 0.7-1.3 UREA NITROGEN 16.8 mg/dL 9.0-25.0 GLUCOSE 104 mg/dL H 72-99 SODIUM 133 meq/L L 136-145 POTASSIUM 3.5 meq/L 3.5-5 CHLORIDE 103 meq/L 98-107 CARBON DIOXIDE 23 meq/L 22-31 CALCIUM 8.4 mg/dL 8.4-10.4 EGFR (CKD-EPI 2020) 95.6 >60 Aug 10, 2024 09:[address] [facility] CBC BLOOD Specimen Type: BLOOD No comment entered. Ordering Provider: GILSON OG Report Released Date/Time: Aug 10, 2024 04:01 PM Reporting Lab: [address] [address] Performing Lab: [address] [address] WBC 4.3 10*3/uL 3.6-11.2 RBC 2.22 10*6/uL [...] 10*3/uL 2.10-8.00 Aug 10, 2024 06:30 PM [facility] MRSA SURVL NARES DNA NARES [...] 10, 2024 04:01 PM Reporting Lab: [address] [address] Performing Lab: [address] [address] MRSA SURVL NARES DNA Negative Negative Aug 10, 2024 06:02 PM [facility] GLUCOSE,BLOOD-poct (STL) BLOOD Specimen Type: BLOOD Comment: Test Performed by: [id number] Meter #: [id number] Ordering Provider: YASIR SANZ MD Report Released Date/Time: Aug 10, 2024 06:04 PM Reporting Lab: [place] [address] [facility] [place] [address] Performing Lab: [place] [address] [facility] [place] [address] GLUCOSE,BLOOD-poct (L) 94 mg/dL 72-99 Aug 10, 2024 02:[address] [facility] APTT PLASMA Specimen Type: PLASM A No comment entered. Ordering Provider: YASIR SANZ MD Report Released Date/Time: Aug 10, 2024 02:00 PM Reporting Lab: [place] [address] [facility] [place] [address] Performing Lab: [place] [address] [facility] [place] [address] APTT 20.1 s L 26.7-39.9 Aug 10, 2024 02:12 PM [facility] PT/INR NEW (L-MA) PLASMA Specimen Type: PLAS MA No comment entered. Ordering Provider: YASIR SANZ MD Report Released Date/Time: Aug 10, 2024 02:00 PM Reporting Lab: [place] [address] [facility] [place] [address] Performing Lab: [place] [address] [facility] [place] [phone] PROTIME 13.8 s H 9.4-12.5 INR VALUE 1.2 {INR} Aug 10, 2024 11:30 AM [facility] TSH W/ REFLEX FT4 (L) PLASMA Specimen Type: PLASMA No comment entered. Ordering Provider: TONY SIMMONS Report Released Date/Time: Aug 02, 2024 12:33 PM Reporting Lab: [place] [address] [facility] [place] [address] Performing Lab: [facility] [address] [facility] [place] [address] TSH 3.991 u[IU]/mL 0.47-5 Aug 10, 2024 11:30 AM [facility] COMPREHENSIVE METABOLIC PANEL PLASMA Specimen Type: PLASMA Comment: No hemolysis noted. Ordering Provider: TONY SIMMONS Report Released Date/Time: Aug 02, 2024 12:33 PM Reporting Lab: [address] [address] Performing Lab: [address] [address] CREATININE 0.82 mg/dL 0.7-1.3 UREA NITROGEN 21.7 [...] 96.3 >60 Aug 10, 2024 11:[address] [facility] CBC BLOOD Specimen Type: BLOOD No comment entered. Ordering Provider: TONY SIMMONS Report Released Date/Time: Aug 02, 2024 12:33 PM Reporting Lab: [address] [address] Performing Lab: [address] [address] WBC 7.4 10*3/uL 3.6-11.2 RBC 2.81 10*6/uL [...] 20 Aug 02, 2024 11:53 AM [facility] PROTEIN ELECTROPHORESIS BLOOD SERUM Specimen Type: SERUM Comment: Reference Range: None Detected NOTE: THIS RESULT IS FLAGGED ABNORMAL Evaluation reveals a restricted band (M-spike) migrating in the gamma globulin region. If not already requested, Immunofixation should be considered. Test Performed by [employer], [employer] [facility], [address] [place] [address] Tristin Iyer M.D., Ph.D., Director of Laboratories , CLIA [id number] PREVIOUS SUGAR: IgG [place] Ordering Provider: TONY SIMMONS Report Released Date/Time: Jul 13, 2024 01:49 PM Reporting Lab: [facility] [address] [place] [phone] Performing Lab: [facility] [address] [place] [address] ALPHA-1 GLOBULIN(SO-PB-STL) 0.4 g/dL H 0.2 -0.3 [...] g/dL H Aug 02, 2024 11:53 AM [facility] IGA (STL) PLASMA Specimen Type: PLASM A Comment: No hemolysis noted. Ordering Provider: TONY SIMMONS Report Released Date/Time: Jul 13, 2024 01:49 PM Reporting Lab: [address] [address] Performing Lab: [address] [address] IGA (STL) 113 mg/dL 63-484 Aug 02, 2024 11:53 AM [facility] IGG (STL) PLASMA Specimen Type: PLASM A Comment: No hemolysis noted. Ordering Provider: TONY SIMMONS Report Released Date/Time: Jul 13, 2024 01:49 PM Reporting Lab: [address] [address] Performing Lab: [address] [address] IGG (STL) 1898 mg/dL H 540-1822 Aug 02, 2024 11:53 AM [facility] IGM (STL) PLASMA Specimen Type: PLASM A Comment: No hemolysis noted. Ordering Provider: TONY SIMMONS Report Released Date/Time: Jul 13, 2024 01:49 PM Reporting Lab: [address] [address] Performing Lab: [address] [address] IGM (STL) 104 mg/dL 22-240 Aug 02, 2024 11:53 AM [facility] TSH W/ REFLEX FT4 (STL) PLASMA Specimen Type: PLASMA No comment entered. Ordering Provider: TONY SIMMONS Report Released Date/Time: Jul 13, 2024 01:49 PM Reporting Lab: [address] [address] Performing Lab: [address] [address] TSH 2.182 u[IU]/mL 0.47-5 Aug 02, 2024 11:53 AM [facility] KAPPA/LAMBDA FREE LC PANEL (STL-PB) SERUM Spe cimen Type: SERUM No comment entered. Ordering Provider: TONY SIMMONS Report Released Date/Time: Jul 13, 2024 01:49 PM Reporting Lab: [place] [address] [facility] [place] [address] Performing Lab: [address] [address] KAPPA FREE LC (STL) 102.7 mg/L H 2.4-20.7 LAMBDA FREE LC (STL) 32.2 mg/L H 4.2-27.7 KAPPA/LAMBDA RATIO (STL) 3.19 H 0.22-1. 74 Aug 02, 2024 11:53 AM [facility] COMPREHENSIVE METABOLIC PANEL PLASMA Specimen Type: PLASMA Comment: No hemolysis noted. Ordering Provider: TONY SIMMONS Report Released Date/Time: Jul 13, 2024 01:49 PM Reporting Lab: [address] [address] Performing Lab: [address] [address] CREATININE 0.82 mg/dL 0.7-1.3 UREA NITROGEN 12.2 [...] 96.3 >60 Aug 02, 2024 11:53 AM [facility] CBC BLOOD Specimen Type: BLOOD Comment: No Clots in specimen Ordering Provider: TONY SIMMONS Report Released Date/Time: Jul 13, 2024 01:49 PM Reporting Lab: [facility] [address] [facility] [place] [address] Performing Lab: [facility] [address] [facility] [address] WBC 2.2 10*3/uL L 3.6-11.2 RBC 3.44 [...] L 2.10-8.00 Aug 01, 2024 10:10 AM [facility] GLUCOSE,BLOOD-poct (STL) BLOOD Specimen Type: BLOOD Comment: Test Performed by: [id number] Meter #: [id number] Ordering Provider: SUKHJINDER CHAHAL Report Released Date/Time: Aug 01, 2024 10:17 AM Reporting Lab: [address] [address] Performing Lab: [address] [address] GLUCOSE,BLOOD-poct (STL) 101 mg/dL H 72-99 Jul 27, 2024 01:54 PM [facility] BRAIN NATRIURETIC PEPTIDE PLASMA Specimen Type : PLASMA No comment entered. Ordering Provider: ELIZABETH COATES Report Released Date/Time: Jul 27, 2024 03:39 PM Reporting Lab: [address] [address] Performing Lab: [address] [address] BRAIN NATRIURETIC PEPTIDE 257.2 pg/mL H 0- 100 Jul 27, 2024 01:54 PM [facility] TROPONIN I PLASMA Specimen Type: PLASM A Comment: No hemolysis noted. Ordering Provider: ELIZABETH COATES Report Released Date/Time: Jul 27, 2024 03:39 PM Reporting Lab: [address] [address] Performing Lab: [address] [address] TROPONIN I 0.011 ng/mL 0-0.033 Jul 27, 2024 01:54 PM [facility] COMPREHENSIVE METABOLIC PANEL PLASMA Specimen Type: PLASMA Comment: No hemolysis noted. Ordering Provider: ELIZABETH COATES Report Released Date/Time: Jul 27, 2024 03:39 PM Reporting Lab: [address] [address] Performing Lab: [address] [address] CREATININE 0.70 mg/dL 0.7-1.3 UREA NITROGEN 7.4 [...] 101.0 >60 Jul 27, 2024 01:[address] [facility] CBC BLOOD Specimen Type: BLOOD No comment entered. Ordering Provider: ELIZABETH COATES Report Released Date/Time: Jul 27, 2024 03:39 PM Reporting Lab: [facility] [address] [facility] [place] [address] Performing Lab: [address] [address] WBC 3.2 10*3/uL L 3.6-11.2 RBC 3.12 [...] 10*3/uL 2.10-8.00 Jul 21, 2024 02:00 PM [facility] FOLATE (L-TX) SERUM Specimen Type: SERUM No comment entered. Ordering Provider: JORJE DENSON Report Released Date/Time: Jul 21, 2024 12:54 PM Reporting Lab: [address] [address] Performing Lab: [address] [address] FOLATE ([facility]) 9.1 ng/mL 7-20 Jul 21, 2024 02:[address] [facility] B12 SERUM Specimen Type: SERUM No comment entered. Ordering Provider: JORJE DENSON Report Released Date/Time: Jul 21, 2024 12:54 PM Reporting Lab: [address] [address] Performing Lab: [address] [address] B12 1584 pg/mL H 213-816 Jul 21, 2024 02:00 PM [facility] IRON/TIBC PROFILE SERUM Specimen Type: SERUM No comment entered. Ordering Provider: JORJE DENSON Report Released Date/Time: Jul 21, 2024 12:54 PM Reporting Lab: [address] [address] Performing Lab: [address] [address] TIBC 243 ug/dL L 250-450 TRANSFERRIN 194 mg/dL 163-344 IRON SATURATION 20 20-50 IRON 49 ug/dL L 65-175 Jul 21, 2024 02:[address] [facility] CBC BLOOD Specimen Type: BLOOD Comment: Manual differential performed 07/20/2024 No clots Ordering Provider: JORJE DENSON Report Released Date/Time: Jul 21, 2024 12:54 PM Reporting Lab: [address] [address] Performing Lab: [address] [address] WBC 5.6 10*3/uL 3.6-11.2 RBC 2.87 10*6/uL [...] H 1.0-7.0 Jul 20, 2024 08:55 PM [facility] PT/INR NEW (STL-MA) PLASMA Specimen Type: PLAS MA No comment entered. Ordering Provider: AURA ZACARIAS Report Released Date/Time: Jul 18, 2024 01:30 PM Reporting Lab: [address] [address] Performing Lab: [address] [address] PROTIME 12.8 s H 9.4-12.5 INR VALUE 1.1 {INR} Jul 20, 2024 08:55 PM [facility] BASIC METABOLIC PANEL PLASMA Specimen Type: PL ASMA Comment: No hemolysis noted. Ordering Provider: AURA ZACARIAS Report Released Date/Time: Jul 18, 2024 01:30 PM Reporting Lab: [address] [address] Performing Lab: [address] [address] CREATININE 0.74 mg/dL 0.7-1.3 UREA NITROGEN 15.1 mg/dL 9.0-25.0 GLUCOSE 121 mg/dL H 72-99 SODIUM 130 meq/L L 136-145 POTASSIUM 3.7 meq/L 3.5-5 CHLORIDE 100 meq/L 98-107 CARBON DIOXIDE 20 meq/L L 22-31 CALCIUM 8.5 mg/dL 8.4-10.4 EGFR (CKD-EPI 2020) 99.3 >60 Jul 20, 2024 08:[address] [facility] CBC BLOOD Specimen Type: BLOOD No comment entered. Ordering Provider: AURA ZACARIAS Report Released Date/Time: Jul 18, 2024 01:30 PM Reporting Lab: [address] [address] Performing Lab: [address] [address] WBC 5.1 10*3/uL 3.6-11.2 RBC 2.90 10*6/uL [...] 10*3/uL 2.10-8.00 Jul 20, 2024 01:[address] [facility] CBC BLOOD Specimen Type: BLOOD No comment entered. Ordering Provider: AURA ZACARIAS Report Released Date/Time: Jul 18, 2024 01:30 PM Reporting Lab: [facility] [address] [place] [address] Performing Lab: [address] [address] WBC 5.6 10*3/uL 3.6-11.2 RBC 3.11 10*6/uL [...] 10*3/uL 2.10-8.00 Jul 19, 2024 06:42 AM [facility] PT/INR NEW (STL-MA) PLASMA Specimen Type: PLAS MA No comment entered. Ordering Provider: AURA ZACARIAS Report Released Date/Time: Jul 18, 2024 01:30 PM Reporting Lab: [address] [address] Performing Lab: [place] [phone] PROTIME 16.4 s H 9.4-12.5 INR VALUE 1.5 {INR} Jul 19, 2024 06:42 AM [facility] BASIC METABOLIC PANEL PLASMA Specimen Type: PL ASMA Comment: No hemolysis noted. Ordering Provider: AURA ZACARIAS Report Released Date/Time: Jul 18, 2024 01:30 PM Reporting Lab: [address] [address] Performing Lab: [address] [address] CREATININE 0.94 mg/dL 0.7-1.3 UREA NITROGEN 23.8 mg/dL 9.0-25.0 GLUCOSE 87 mg/dL 72-99 SODIUM 129 meq/L L 136-145 POTASSIUM 3.4 meq/L L 3.5-5 CHLORIDE 102 meq/L 98-107 CARBON DIOXIDE 20 meq/L L 22-31 CALCIUM 8.1 mg/dL L 8.4-10.4 EGFR (CKD-EPI 2020) 88.9 >60 Jul 19, 2024 06:[address] [facility] CBC BLOOD Specimen Type: BLOOD No comment entered. Ordering Provider: AURA ZACARIAS Report Released Date/Time: Jul 18, 2024 01:30 PM Reporting Lab: [address] [address] Performing Lab: [address] [address] WBC 5.1 10*3/uL 3.6-11.2 RBC 2.45 10*6/uL [...] H 1.0-7.0 Jul 18, 2024 08:[address] [facility] CBC BLOOD Specimen Type: BLOOD No comment entered. Ordering Provider: AURA ZACARIAS Report Released Date/Time: Jul 18, 2024 01:30 PM Reporting Lab: [address] [address] Performing Lab: [address] [address] WBC 6.2 10*3/uL 3.6-11.2 RBC 2.44 10*6/uL [...] 10*3/uL 2.10-8.00 Jul 18, 2024 04:[address] [facility] CBC BLOOD Specimen Type: BLOOD No comment entered. Ordering Provider: AURA ZACARIAS Report Released Date/Time: Jul 18, 2024 01:30 PM Reporting Lab: [address] [address] Performing Lab: [address] [address] WBC 6.1 10*3/uL 3.6-11.2 RBC 2.57 10*6/uL [...] 10*3/uL 2.10-8.00 Jul 18, 2024 06:32 AM [facility] LACTIC ACID (STL-PB) PLASMA Specimen Type: NEIL SMA No comment entered. Ordering Provider: CAMDEN PATTON Report Released Date/Time: Jul 17, 2024 07:38 PM Reporting Lab: [address] [address] Performing Lab: [address] [address] LACTIC ACID (L-PB) 1.3 mmol/L 0.5-2.0 Jul 18, 2024 06:32 AM [facility] PT/INR NEW (STL-MA) PLASMA Specimen Type: PLAS MA No comment entered. Ordering Provider: CAMDEN PATTON Report Released Date/Time: Jul 17, 2024 07:38 PM Reporting Lab: [address] [address] Performing Lab: [place] [address] PROTIME 19.1 s H 9.4-12.5 INR VALUE 1.7 {INR} Jul 18, 2024 06:[address] [facility] CBC BLOOD Specimen Type: BLOOD Comment: HGB Called to : Dr. Posadas MOD at: 0657 on: 07/18/24 by: [email or web address] Critical Verbal Readback Performed Ordering Provider: CAMDEN PATTON Report Released Date/Time: Jul 17, 2024 07:38 PM Reporting Lab: [address] [address] Performing Lab: [address] [address] WBC 7.0 10*3/uL 3.6-11.2 RBC 2.04 10*6/uL [...] 10*3/uL 2.10-8.00 Jul 18, 2024 06:32 AM [facility] MAGNESIUM PLASMA Specimen Type: PLASM A Comment: No hemolysis noted. Ordering Provider: CAMDEN PATTON Report Released Date/Time: Jul 17, 2024 07:38 PM Reporting Lab: [address] [address] Performing Lab: [address] [address] MAGNESIUM 1.5 mg/dL L 1.6-2.6 Jul 18, 2024 06:32 AM [facility] VANCOMYCIN (STL) PLASMA Specimen Type: PLASM A No comment entered. Ordering Provider: CAMDEN PATTON Report Released Date/Time: Jul 17, 2024 07:38 PM Reporting Lab: [address] [address] Performing Lab: [address] [address] VANCOMYCIN (STL) 5.0 ug/mL L 10-15 Jul 18, 2024 06:32 AM [facility] PHOSPHOROUS PLASMA Specimen Type: PLASM A Comment: No hemolysis noted. Ordering Provider: CAMDEN PATTON Report Released Date/Time: Jul 17, 2024 07:38 PM Reporting Lab: [address] [address] Performing Lab: [address] [address] PHOSPHOROUS 2.2 mg/dL L 2.3-4.7 Jul 18, 2024 06:32 AM [facility] COMPREHENSIVE METABOLIC PANEL PLASMA Specimen Type: PLASMA Comment: No hemolysis noted. Ordering Provider: CAMDEN PATTON Report Released Date/Time: Jul 17, 2024 07:38 PM Reporting Lab: [address] [address] Performing Lab: [address] [address] CREATININE 1.08 mg/dL 0.7-1.3 UREA NITROGEN 40.5 [...] 75.2 >60 Jul 18, 2024 12:05 AM [facility] HGB,HCT,PLT BLOOD Specimen Type: BLOOD No comment entered. Ordering Provider: ROSA VARGAS Report Released Date/Time: Jul 17, 2024 09:07 PM Reporting Lab: [address] [address] Performing Lab: [address] [address] HGB 7.3 g/dL L 13.1-16.8 HCT 21.0 L 38.2-48.4 PLT 64 10*3/uL L 150-400 Jul 17, 2024 07:45 PM [facility] MRSA SURVL NARES DNA NARES [...] 17, 2024 07:38 PM Reporting Lab: [address] [address] Performing Lab: [address] [address] MRSA SURVL NARES DNA Negative Negative Jul 17, 2024 07:36 PM [facility] GLUCOSE,BLOOD-poct ([facility]) BLOOD Specimen Type: BLOOD Comment: Test Performed by: [id number] Meter #: [id number] Ordering Provider: CAMDEN PATTON Report Released Date/Time: Jul 17, 2024 07:48 PM Reporting Lab: [address] [address] Performing Lab: [address] [address] GLUCOSE,BLOOD-poct ([facility]) 98 mg/dL 72-99 Jul 17, 2024 07:35 PM [facility] BLOOD GAS PANEL ABG ([facility]) VENOUS BLOOD Specimen Type : VENOUS BLOOD Comment: normalcy status - Below absolute low-off instrument scale Test Performed by: [id number] Meter #: [id number] Ordering Provider: CAMDEN PATTON Report Released Date/Time: Jul 17, 2024 07:37 PM Reporting Lab: [address] [address] Performing Lab: [address] [address] GEM PH 7.39 7.31-7.41 GEM PCO2 31 [...] TEMP 37.0 Jul 17, 2024 07:10 PM [facility] URINALYSIS W/ CX REFLEX (STL-PB) URINE Specim en Type: URINE No comment entered. Ordering Provider: CASEY BOONE Report Released Date/Time: Jul 17, 2024 04:24 PM Reporting Lab: [address] [address] Performing Lab: [address] [address] URINE COLOR Light-Yellow Yellow U.BILIRUBIN Negative mg/dL Negative U.PH 6.0 5.0-8.0 APPEARANCE Clear Clear U.NITRITE Negative mg/dL Negative URN.GLUCOSE Normal mg/dL Negative URN.PROTEIN Negative mg/dL URN.UROBILINOGEN Normal mg/dL Normal URN.BLOOD Negative mg/dL Negative-Trace URN.KETONES Trace mg/dL Negative-Trace URN.LEUK.EST. Negative mg/dL Negative-Tr april URN.SPECIFIC GRAVITY 1.029 Jul 17, 2024 06:25 PM [facility] RETICULOCYTE PANEL BLOOD Specimen Type: BLOOD No comment entered. Ordering Provider: CASEY BOONE Report Released Date/Time: Jul 17, 2024 06:13 PM Reporting Lab: [address] [address] Performing Lab: [address] [address] RETIC RATIO 7.35 H 0.50-2.30 IRF 39.7 H 2.3-13.4 RETICULOCYTE HEMOGLOBIN EQUIVALENT 35.8 pg 28.2-36.6 RETIC COUNT,ABS 0.129 10*6/uL H 0.022-0.10 1 Jul 17, 2024 06:25 PM [facility] HAPTOGLOBIN (STL) PLASMA Specimen Type: PLASM A No comment entered. Ordering Provider: CASEY BOONE Report Released Date/Time: Jul 17, 2024 06:13 PM Reporting Lab: [address] [address] Performing Lab: [address] [address] HAPTOGLOBIN (STL) 93 mg/dL 44-215 Jul 17, 2024 06:[address] [facility] LDH PLASMA Specimen Type: PLASM A No comment entered. Ordering Provider: CASEY BOONE Report Released Date/Time: Jul 17, 2024 06:13 PM Reporting Lab: [address] [address] Performing Lab: [address] [address] LDH 305 U/L H 125-243 Jul 17, 2024 06:[address] [facility] CBC BLOOD Specimen Type: BLOOD Comment: HGB Called to : Watson White at: 1934 on:[id number] by: [facility] Critical Verbal Readback Performed Ordering Provider: CAMDEN PATTON Report Released Date/Time: Jul 17, 2024 07:09 PM Reporting Lab: [address] [address] Performing Lab: [address] [address] WBC 27.6 10*3/uL H 3.6-11.2 RBC 1.76 [...] H 2.10-8.00 Jul 17, 2024 04:59 PM [facility] BLOOD GAS PANEL ABG (L) VENOUS BLOOD Specimen Type : VENOUS BLOOD Comment: Test Performed by: [id number] Meter #: [id number] Ordering Provider: CASEY BOONE Report Released Date/Time: Jul 17, 2024 05:00 PM Reporting Lab: [address] [address] Performing Lab: [address] [address] GEM PH 7.39 7.31-7.41 GEM PCO2 33 [...] TEMP 37.0 Jul 17, 2024 04:25 PM [facility] MAGNESIUM PLASMA Specimen Type: PLASM A Comment: No hemolysis noted. Ordering Provider: CASEY BOONE Report Released Date/Time: Jul 17, 2024 04:24 PM Reporting Lab: [address] [address] Performing Lab: [address] [address] MAGNESIUM 1.4 mg/dL L 1.6-2.6 Jul 17, 2024 04:25 PM [facility] PT/INR NEW (STL-MA) PLASMA Specimen Type: PLAS MA No comment entered. Ordering Provider: CASEY BOONE Report Released Date/Time: Jul 17, 2024 04:24 PM Reporting Lab: [address] [address] Performing Lab: [address] [address] PROTIME 25.3 s H 9.4-12.5 INR VALUE 2.3 {INR} Jul 17, 2024 04:25 PM [facility] COVID-19 DIAGNOSTIC (FLU/RSV)(STL) NASOPHARYNX Spec [...] 17, 2024 04:24 PM Reporting Lab: [address] [address] Performing Lab: [place] [address] [address] INFLUENZA A Negative Negative INFLUENZA B Negative Negative COVID-19 (STL-PB) Not Detected Not Detec nate RSV (Cepheid) NEGATIVE Negative Jul 17, 2024 04:25 PM [facility] COMPREHENSIVE METABOLIC PANEL PLASMA Specimen Type: PLASMA Comment: No hemolysis noted. Ordering Provider: CASEY BOONE Report Released Date/Time: Jul 17, 2024 04:24 PM Reporting Lab: [address] [address] Performing Lab: [address] [address] CREATININE 1.25 mg/dL 0.7-1.3 UREA NITROGEN 47.0 [...] 63.1 >60 Jul 17, 2024 04:[address] [facility] CBC BLOOD Specimen Type: BLOOD No comment entered. Ordering Provider: CASEY BOONE Report Released Date/Time: Jul 17, 2024 04:24 PM Reporting Lab: [address] [address] Performing Lab: [address] [address] WBC 42.4 10*3/uL H 3.6-11.2 RBC 2.20 [...] H 2.10-8.00 Jul 13, 2024 12:39 PM [facility] PHOSPHOROUS PLASMA Specimen Type: PLASM A Comment: No hemolysis noted. Ordering Provider: TONY SIMMONS Report Released Date/Time: Jun 07, 2024 01:01 PM Reporting Lab: [facility] [address] [facility] [place] [address] Performing Lab: [facility] [address] [facility] [place] [address] PHOSPHOROUS 2.4 mg/dL 2.3-4.7 Jul 13, 2024 12:39 PM [facility] TSH W/ REFLEX FT4 (STL) PLASMA Specimen Type: PLASMA No comment entered. Ordering Provider: TONY SIMMONS Report Released Date/Time: Jun 07, 2024 01:01 PM Reporting Lab: [facility] [address] [facility] [address] Performing Lab: [facility] [address] [facility] [address] TSH 1.431 u[IU]/mL 0.47-5 Jul 13, 2024 12:39 PM [facility] MAGNESIUM PLASMA Specimen Type: PLASM A Comment: No hemolysis noted. Ordering Provider: TONY SIMMONS Report Released Date/Time: Jun 07, 2024 01:01 PM Reporting Lab: [address] [address] Performing Lab: [address] [address] MAGNESIUM 2.0 mg/dL 1.6-2.6 Jul 13, 2024 12:39 PM [facility] COMPREHENSIVE METABOLIC PANEL PLASMA Specimen Type: PLASMA Comment: No hemolysis noted. Ordering Provider: TONY SIMMONS Report Released Date/Time: Jun 07, 2024 01:01 PM Reporting Lab: [address] [address] Performing Lab: [address] [address] CREATININE 0.75 mg/dL 0.7-1.3 UREA NITROGEN 21.3 [...] 98.9 >60 Jul 13, 2024 12:[address] [facility] CBC BLOOD Specimen Type: BLOOD Comment: no clot Ordering Provider: TONY SIMMONS Report Released Date/Time: Jun 07, 2024 01:01 PM Reporting Lab: [facility] [address] [place] [address] Performing Lab: [address] [address] WBC 3.0 10*3/uL L 3.6-11.2 RBC 3.83 [...] 10*3/uL 2.10-8.00 Jul 13, 2024 12:38 PM [facility] ALPHA-FETOPROTEIN(STL-PB) SERUM Specimen Type : SERUM No comment entered. Ordering Provider: CRYTSAL MASSEY Report Released Date/Time: Jul 04, 2024 03:26 PM Reporting Lab: [address] [address] Performing Lab: [address] [address] ALPHA-FETOPROTEIN(STL-PB) 16.86 ng/mL H 1- 8.78 Jul 13, 2024 12:37 PM [facility] CARBOHYDRATE Ag SERUM Specimen Type: SERUM Comment: REFERENCE RANGE: <34 U/mL This test was performed using the Siemens chemiluminescent method. Values obtained from different assay methods cannot be used inter- changeably. CA 19-9 levels, regardless of value, should not be interpreted as absolute evidence of the presence or absence of disease. Test Performed by [employer] [employer] [facility], [address] [place] [address] Tristin Iyer M.D., Ph.D., Director of Laboratories , [place] [id number] Ordering Provider: CRYSTAL MASSEY Report Released Date/Time: Jul 04, 2024 03:28 PM Reporting Lab: [facility] [address] [facility] [id number] Performing Lab: [facility] [address] [facility] CARBOHYDRATE Ag 61 H SEE BELOW Vital Signs: All taken on the encounter date This section contains inpatient and outpatient Vital Signs collected on the date of the Encounter. Date/Time Temperature Pulse Blood Pressure Respiratory Rate SP02 Pain Height Weight Body Mass Index Source Jul 19, 2024 10:08 AM 3 [facility] Social History: Smoking Status (Most current) and Tobacco Use (All prior to encounter date) This section includes the most current, and the historical, smoking and tobacco- related health factors from the [facility] facility where the Encounter took place. Current Smoking Status This section includes the most current smoking, or tobacco-related health factor, from the [facility] facility where the Encounter took place. Date/Time Current Smoking Status Comment Kaz ity Jul 17, 2024 04:02 PM [facility] ADMIT TOBACCO SCREEN NO [facility] Tobacco Use History This section includes a history of the smoking, or tobacco-related health factors, that were collected on or before the date of the Encounter. The data comes from the [facility] facility where the Encounter took place. Date/Time Smoking Status/Tobacco Use Comment F acility Jan 20, 2023 03:49 PM VA-TOBACCO FORMER USER [facility] Jan 20, 2023 03:49 PM VA-TOBACCO QUIT 15 YRS OR MORE [facility] Feb 06, 2021 04:28 PM VA-TOBACCO FORMER USER [facility] Feb 06, 2021 04:28 PM MS-TOBACCO QUIT 15 YRS OR MORE [facility] Radiology Reports: +/- 30 days of [...] the Encounter. The data comes from all [facility] treatment facilities. Date/Time Radiology Report Provider Source Aug 10, 2024 02:[address] ABD PEL W/CONT & 3D: ABRAHAM HAWK [id number] -1955 M Exm Date: AUG 10, 2024@14:33 Req Phys: YASIR SANZ MD Pat Loc: [facility]-EMERGENCY DEPT 2ND SHIFT (R Img Loc: [facility]CT IMAGING [facility] Service: Unknown [address] [address] (Case [id number] COMPLETE) CT ABDOMEN AND PELVIS W/CONTRAST (CT Detailed) CPT:45738 Contrast Media : Non-ionic Iodinated Reason for Study: Abdominal pain, vomiting Clinical History: Responsible Attending: Svetlana Attending Contact Number: [id number] Resident Contact Number: Abdominal pain, vomiting Allergies listed in CPRS chart: Patient has answered NKA Creatinine:CREATININE 0.82 mg/dL 08/10/2024 11:30 /eGFR: STL EGFR (within one year). CREATININE 0.82 mg/dL (08/10/24 11:30) Wt: 152.1 lb [68.99 kg] (08/10/2024 11:31) History of: Renal failure, chronic or acute renal disease: NO Report Status: Verified Date Reported: AUG 10, 2024 Date Verified: AUG 10, 2024 Joist Setter E-Sig:/ES/PETROS MCCORD Report: Case [id number]. CT ABDOMEN AND PELVIS W/CONTRAST. Gastrointestinal contrast: [...] Dictated by Kenneth Albright DO (vice president safety). I, Petros Mccrod, have reviewed the images and report and concur with these findings. Primary Interpreting Staff: PETROS MCCORD MD (Joist Setter) Primary Interpreting Resident: KENNETH ALBRIGHT, Laboratory Manager /PETROS REESE [facility] Aug 01, 2024 10:20 AM PET/CT TUMOR IMAGING (SKULL TO MID-THIGH)-P: ABRAHAM HAWK [id number] -1955 M Exm Date: AUG 01, 2024@10:20 Req Phys: TONY SIMMONS Loc: [facility]-ONCOLOGY [facility] (Req'g Loc) Img Loc: [facility]-PET-CT Service: [facility], [facility] [address] [place] [address] (Case [id number] COMPLETE) PET/CT TUMOR SKULL BASE TO MID-T(NM Detailed) CPT:42985 CPT Modifiers : PS PET TUMOR SUBSQ TX STRATEGY Reason for Study: Nasopharyngeal cancer (Case [id number] COMPLETE) F-18 FLUORODEOXYGLUCOSE (FDG),PER(NM Detailed) CPT:A9552 Clinical History: Report Status: Verified Date Reported: AUG 01, 2024 Date Verified: AUG 01, 2024 Joist Setter E-Sig:/ES/NAATSHA LEIJA Report: PATIENT NAME: ABRAHAM HAWK. CASE #: [id number], [id number]. PROCEDURE: PET/CT study Indication: Nasopharyngeal cancer HISTORY: [...] lytic osseous lesion is noted within the [id number]. Impression: 1. The previous sites of FDG [...] ABNORMALITY, ATTN NEEDED Primary Interpreting Staff: NATASHA LEJIA MD (Joist Setter) /PFT NATASHA LEIJA [facility] Jul 27, 2024 03:41 PM CHEST PORTABLE: ABRAHAM HAWK [id number] -1955 M Exm Date: JUL 27, 2024@15:41 Req Phys: ELIZABETH COATES Pat Loc: [facility]ERGENCY DEPT 2ND SHIFT (R Img Loc: [facility]-MAIN RADIOLOGY SUITE Service: [address] [address] (Case [id number] COMPLETE) CHEST PORTABLE (RAD Detailed) CPT:69348 Proc Modifiers : Portable Reason for Study: sob Clinical History: Report Status: Verified Date Reported: JUL 27, 2024 Date Verified: JUL 27, 2024 Joist Setter E-Sig:/ES/Sol Abraham MD Report: CASE [id number]. AP portable view chest. COMPARISON: Chest x-ray [...] dictated by Krystian Sultana D.O. (vice president safety) ISol, have reviewed the images and report and concur with these findings. Primary Interpreting Staff: Sol Abraham MD, Radiologist (Joist Setter) Primary Interpreting Resident: Krystian Sultana D.O., Resident Physician /SOL DHALIWAL [facility] Jul 17, 2024 06:[address] ABD PEL W/CONT & 3D: ABRAHAM HAWK [id number] -1955 M Exm Date: JUL 17, 2024@18:18 Req Phys: CASEY BOONE [facility] Loc: 4-C [facility]/07-17-2024@19:47 Img Loc: [facility] IMAGING [facility] Service: Unknown [facility] [address] [place] [address] (Case [id number] COMPLETE) CT ABDOMEN AND PELVIS W/CONTRAST (CT Detailed) CPT:01548 Contrast Media : Non-ionic Iodinated Reason for Study: septic shock, abd pain Clinical History: Responsible Attending: Nils Attending Contact Number: [phone] Resident Contact Number: Septic shock, Patient with [...] 17, 2024 Date Verified: JUL 17, 2024 Joist Setter E-Sig: Report: CT THORAX W/CONT (PE) [PRINTSET], CT ABDOMEN AND PELVIS W/CONTRAST [PRINTSET] Comparison: 03/17/2022, 04/23/2024 Clinical History: RO PE The study was protocoled and supervised at the local [facility] facility. Chest 12 series and 1585 images were subsequently received by the [facility] (NTP) for interpretation. Abdomen and pelvis 9 series and 1365 images were subsequently received by the [facility] (NTP) for interpretation. Total [...] from 09/12/2023. READING PHYSICIAN: Guilherme Talbert M.D. -[phone] 07/17/2024 17:44 [facility] Frageggradiology Program [phone] (For Medical Practitioner Use Only) Attention Patients / Veterans: If you have questions or concerns about these test results, please contact your ordering provider or primary care team. Primary Interpreting Staff: RADIOLOGY,OUTSIDE SERVICE, Staff Physician / RADIOLOGY,OUTSIDE SERVICE [facility] Jul 17, 2024 06:[address] PE CHEST W/3D: ABRAHAM HAWK [id number] -1955 M Ex Date: JUL 17, 2024@18:17 Req Phys: CASEY BOONE Loc: 4-C [facility]/07-17-2024@19:47 Img Loc: [facility] IMAGING [facility] Service: [facility], [address] [address] (Case [id number] COMPLETE) CT THORAX W/CONT (PE) (CT Detailed) CPT:98076 Contrast Media : unspecified contrast media Reason for Study: RO PE Clinical History: Responsible Attending: Nils Attending Contact Number: [phone] Resident Contact Number: Patient with HCC and [...] 17, 2024 Date Verified: JUL 17, 2024 Joist Setter E-Sig: Report: CT THORAX W/CONT (PE) [PRINTSET], CT ABDOMEN AND PELVIS W/CONTRAST [PRINTSET] Comparison: 03/17/2022, 04/23/2024 Clinical History: RO PE The study was protocoled and supervised at the local [facility] facility. Chest 12 series and 1585 images were subsequently received by the [place] [facility] (NTP) for interpretation. Abdomen and pelvis 9 series and 1365 images were subsequently received by the [place] [facility] (NTP) for interpretation. Total [...] from 09/12/2023. READING PHYSICIAN: Guilherme Talbert M.D. -[phone] 07/17/2024 17:44 [facility] National Teleradiology Program [phone] (For Medical Practitioner Use Only) Attention Patients / Veterans: If you have questions or concerns about these test results, please contact your ordering provider or primary care team. Primary Interpreting Staff: RADIOLOGY,OUTSIDE SERVICE, Staff Physician / RADIOLOGY,OUTSIDE SERVICE [facility] Pathology Reports: +/- 30 days [...] the Encounter. The data comes from all [place] treatment facilities. Date/Time Pathology Report Provider Source [...] Performing Laboratory: Surgical Pathology Report Performed By: [address]# [id number] [address] [place] [id number] $FTR - - - - - - [...] - - ABRAHAM HAWK STANDARD FORM 515 ID:[id number] SEX:M :1955 AGE: 68 LOC:APFEE PCP: Deirdre Wild /eze [place] Pathologist Signed: 08/16/2024 09:43 CRISTIANA [place] [facility] Aug 11, 2024 06:00 AM LR MICROBIOLOGY RE PORT: Accession [UID]: [id number] [[id number]] Received: Aug 11, 2024@06:19 Collection sample: Mario Alberto DUNN. BOTTLE Collection date: Aug 11, 2024 06:00 Site/Specimen: BLOOD Provider: GILSON OG Test(s) ordered: BLOOD CULT (SET 1)............ completed: Aug 17, 2024 10:06 * BACTERIOLOGY FINAL REPORT => Aug 17, 2024 10:22 TECH CODE: [id number] Bacteriology Remark(s): . KAReg Culture shows NO GROWTH IN 6 DAYS =--=--=--=--=--=--=--=--=-- =--=--=--=--=--=--=--=--=-- =--=--=--=--=--=--=--=-- Performing Laboratory: Bacteriology Report Performed By: [facility] [address] [place] [address] CLIA# [id number] [address] [facility] [address] [place] [address] JULISSA BROWN [facility] Jul 17, 2024 05:10 PM LR MICROBIOLOGY RE PORT: Accession [UID]: [id number] [[id number]] Received: Jul 17, 2024@17:30 Collection sample: Mario Alberto DUNN. BOTTLE (SET 2)Collection date: Jul 17, 2024 17:10 Site/Specimen: BLOOD Provider: CASEY BOONE Test(s) ordered: BLOOD CULT (SET 2)............ completed: Jul 23, 2024 14:26 * BACTERIOLOGY FINAL REPORT => Jul 23, 2024 14:28 TECH CODE: [id number] Bacteriology Remark(s): CULTURE IS NEGATIVE TO DATE, ALL POSITIVES ARE ROUTINELY CALLED. KI Culture shows NO GROWTH IN 6 DAYS. 07/23/24 KI =--=--=--=--=--=--=--=--=-- =--=--=--=--=--=--=--=--=-- =--=--=--=--=--=--=--=-- Performing Laboratory: Bacteriology Report Performed By: [facility] [address] [place] [address] CLIA# [id number] [address] [address] JULISSA BROWN [facility] Jul 17, 2024 05:10 PM LR MICROBIOLOGY RE PORT: Accession [UID]: [id number] [[id number]] Received: Jul 17, 2024@17:30 Collection sample: B D BLD. BOTTLE Collection date: Jul 17, 2024 17:10 Site/Specimen: BLOOD Provider: CASEY BOONE Test(s) ordered: BLOOD CULT (SET 1)............ completed: Jul 23, 2024 14:26 * BACTERIOLOGY FINAL REPORT => Jul 23, 2024 14:28 TECH CODE: [id number] Bacteriology Remark(s): CULTURE IS NEGATIVE TO DATE, ALL POSITIVES ARE ROUTINELY CALLED. [facility] Culture shows NO GROWTH IN 6 DAYS. 07/23/24 KI =--=--=--=--=--=--=--=--=-- =--=--=--=--=--=--=--=--=-- =--=--=--=--=--=--=--=-- Performing Laboratory: Bacteriology Report Performed By: [address] CLIA# [id number] [address] [address] JULISSA BROWN [facility] Encounter Notes: All associated encounter notes This section contains the clinical notes associated to the Encounter. 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 PERCEPTION OF GOD / HIGHER POWER loving, kind, merciful, omnipresent (always there), healer, forgiving SPIRITUAL HEALTH Relationship Issues: mentioned having a supportive family, and spoke highly of his daughter. Life event changes/losses in recent past: Braymer stated that he served in the [employer] briefly and shared the reason why it was brief. spoke at-length about his on-going medical issues and he anticipates being at for about a week or so. Braymer stated that he will be patient throughout the process. ASSESSMENT OF PATIENT'S LIFE CHANGES AND SUPPORT SYSTEMS appears to: be confident of care being given. SPIRITUAL RESOURCES APPEAR: Family: Strong Friends and/or others: Adequate Hindu and/or Fraternal Group: None SILVIA BASED PRACTICES Prayer, Sacred writings (Bible, Koran, etc.), Meditation/Reflection SPIRITUAL NEEDS Braymer requesting assistance with the following: Braymer denies needing any assistance at this time. Present spiritual needs identified by : denies needing any spiritual resources at this time. INTERVENTION Offered / accepted: pastoral support, ministry of presence, spiritual counseling, additional counseling, supportive listening PASTORAL CARE PLAN Notify of resources available through excavator operator service. Provide supportive pastoral care. Follow up as needed: Routine Other: Draw Operator Service will remain available throughout this admission. OUTCOMES expressed appreciation for the visit. seemed calmer, appeared more at peace, experienced support /es/ REV. JAM RENO D.Min., [facility] CLINICAL CAMPAIGN WORKER Signed: 07/19/2024 14:44 JAM RENO [facility]
--- OUTSIDE RECORDS SUMMARY | 2024-10-08 17:11 | XMS_ITS | Encounter Summary ---
Author Name [facility] Organization [facility] Address [address] [place] [address] Care Team Providers Care Medical Billing Manager Name Role Phone SUKHJINDER CHAHAL Primary [...] SUPPL EMENT Nov 25, 2021 PLAN G [id number] [phone] ELLEN HAWK VID PATIENT AARP MED SUPP MEDIGAP PLAN G MEDIC ARE SUPPL EMENT Nov 25, 2021 PLAN G [id number] [phone] ELLEN HAWK VID PATIENT MEDICARE (WNR) MEDICARE (M) PART B Sep 25, 2021 PART B [id number] [phone] ELLEN HAWK VID PATIENT MEDICARE (WNR) MEDICARE (M) PART A Aug 25, 2021 PART A [id number] ELLEN HAWK PATIENT Selected Encounter This section includes the information on record at OR for the Encounter. Date/Time Encounter Type Encounter Description Reason Provider Source Oct 01, 2024 03:14 PM Outpatient Encounter GENERAL INTERNAL MEDICINE MAMADOUISAAC TEJADA Reg Garcia IHE Encounter Template Text not used by OR Plan of Treatment: Future Appointments (+ 6 months) and Future Tests (+/- 45 days) The Plan of Treatment section includes future care activities for the patient [facility] This section includes future appointments and future orders which are active, pending or scheduled. Future Appointments This section includes appointments that were scheduled to occur 6 months from the date of the Encounter, up to a maximum of 20 appointments. The data comes from all [facility]. Appointment Date/Time Appointment Type Appointme nt Facility Name Oct 15, 2024 03:00 PM AMBULATORY - SURGERY . [facility] Oct 19, 2024 02:00 PM AMBULATORY - NONE [facility] Active, Pending, and Scheduled Orders This section includes a listing of several types of active, pending, and scheduled orders, including clinic medications orders, diagnostic test orders, procedure orders and consult orders; where the start date of the order is 45 days before the date of the Encounter or 45 days after the date of theEncounter. The data comes from all [facility]. Test Date/Time Test Type Test Details Facility Name Aug 17, 2024 08:00 PM Laboratory - Chemistry Order CBC BLOOD LC [facility] Sep 27, 2024 12:00 AM Laboratory - Chemistry Order CBC BLOOD SP [facility] Sep 27, 2024 12:00 AM Laboratory - Chemistry Order COMPREHENSIVE METABOLIC PANEL GREEN LI/HEP BLD/PLAS PLASMA SP [facility] Oct 19, 2024 12:00 AM Imaging - Magnetic Resonance Imaging (MRI) Order MRI ABDOMEN W/O&W CONT [facility] Lab Results: +/- 30 days of the encounter This section includes the Chemistry and Hematology Lab Results on record with OR for the patient. Radiology Reports and Pathology Reports are provided separately, in subsequent sections. Lab Results This section contains the Chemistry/Hematology Results that were resulted 30 days before or 30 daysafter the date of the Encounter. Date/Time Source Result Type Result - Unit Interpretation Reference Range Specimen Type Comment Sep 07, 2024 12:39 PM [facility] COMPREHENSIVE METABOLIC PANEL PLASMA Specimen Type: PLASMA Comment: No hemolysis noted. Ordering Provider: TONY SIMMONS Report Released Date/Time: Aug 31, 2024 02:42 PM Reporting Lab: [address] [address] Performing Lab: [address] [address] CREATININE 0.87 mg/dL 0.7-1.3 UREA NITROGEN 24.5 [...] 94.0 >60 Sep 07, 2024 12:39 PM [facility] CBC BLOOD Specimen Type: BLOOD No comment entered. Ordering Provider: TONY SIMMONS Report Released Date/Time: Aug 31, 2024 02:42 PM Reporting Lab: [address] [address] Performing Lab: [address] [address] WBC 5.1 10*3/uL 3.6-11.2 RBC 3.44 10*6/uL [...] 10*3/uL 2.10-8.00 Sep 07, 2024 12:39 PM [facility] ALPHA-FETOPROTEIN(STL-PB) SERUM Specimen Type : SERUM No comment entered. Ordering Provider: CRYSTAL MASSEY Report Released Date/Time: Sep 07, 2024 11:59 AM Reporting Lab: [place] [address] [facility] [address] Performing Lab: [address] [address] ALPHA-FETOPROTEIN(STL-PB) 15.01 ng/mL H 1- 8.78 Social History: Smoking Status (Most current) and Tobacco Use (All prior to encounter date) This section includes the most current, and the historical, smoking and tobacco- related health factors from the [place] facility where the Encounter took place. Current Smoking Status This section includes the most current smoking, or tobacco-related health factor, from the [place] facility where the Encounter took place. Date/Time Current Smoking Status Comment Kaz jarrett Jul 17, 2024 04:02 PM [facility] ADMIT TOBACCO SCREEN NO [facility] Tobacco Use History This section includes a history of the smoking, or tobacco-related health factors, that were collected on or before the date of the Encounter. The data comes from the [place] facility where the Encounter took place. Date/Time Smoking Status/Tobacco Use Comment F acility Jan 20, 2023 03:49 PM VA-TOBACCO FORMER USER [facility] Jan 20, 2023 03:49 PM VA-TOBACCO QUIT 15 YRS OR MORE [facility] Feb 06, 2021 04:28 PM VA-TOBACCO FORMER USER [facility] Feb 06, 2021 04:28 PM VA-TOBACCO QUIT [address] [facility] Encounter Notes: All associated encounter notes This section contains the clinical notes associated to the Encounter. Date/Time Encounter Note(s) Provider Source Oct 05, 2024 11:08 AM ADDENDUM: LOCAL TITLE: Addendum STANDARD TITLE: ADDENDUM DATE OF NOTE: OCT 05, 2024@11:08:46 ENTRY DATE: OCT 05, 2024@11:08:47 AUTHOR: DONNA CEDILLO EXP COSIGNER: URGENCY: STATUS: COMPLETED Discharge Disposition Date of discharge: Sep Disposition Discharge to home DC records sent securely to [place] PCP and RNCM. Alerting PCP team to this note for continuity of care. Records r/t this episode of care sent to [facility] for scanning. Discharge Summary Records:SHARED SECURELY WITH PACT RN AND SENT TO [facility] FOR SCANNING Hospital/discharge Summary (per discharge note): PT WAS SEEN AND EXAMINED AT BEDSIDE. HE FEELS FINE. DENIES ANY CHEST PAIN, SOB, ABD PAIN, N/V. STOOL IS BROWN. HGB IMPROVED TO 7.7, PLT 45. NO BLEEDING REPORTED. PT REQUESTED TO BE D/C. F/U W/PCP. F/U W/ONCOLOGY SCHEDULED. CONT TAKING IRON PILLS. F/U W/REPEAT BLOOD TESTS IN 2-3 DAYS Important Medication Changes: Start - CARVEDILOL 6.25MG PO Q12HR Stop - PROPANOLOL 10MG Change-N/A *Medication reconciliation needed* Post-Discharge Needs PACT: F/U W/ONCOLOGY SCHEDULED 1) [facility] F/U W/PCP IN [address] the below consults:N/A ([facility] or [place] internal consults needed for ALL follow up care) /loly/ DONNA CEDILLO BSN RN REGISTERED NURSE Signed: 10/05/2024 11:15 Receipt Acknowledged By: 10/05/2024 13:18 /loly/ AMY PA- NURSE PRACTITIONER * AWAITING SIGNATURE * STEVEN PRO --- Original Document --- 09/26/24 [facility] PRESENTING CARE COORD PLAN 657 STL: Emergency Notification Intake Date Presenting to the Facility: Sep Method of Contact: Submitted to Centralized Call Center Notification ID: [id number] [facility] Referral #: [id number] Clinical Review [facility] Name: Hospital: [facility] Address: City: [place] State: [place] Zip Code: Phone : [facility] Facility Point of Contact: Name: Phone: Chief complaint: ANEMIA Primary Diagnosis: Disposition Unknown at time of intake note entry EXCERPT FROM HOSPITAL NOTE BELOW Currently hospitalized. Per most recent progress note: 69 YEAR OLD MALE PRESENTS FROM HOME VIA EMS ON 09/26 FOR FURTHER EVAL OF POSSIBLE GI BLEED. HE REPORTS ONSET OF DARK TARRY STOOLS YESTERDAY. THEN DEVELOPED N/V W/COFFEE-GROUND APPEARANCE TODAY. HE REPORTS ACCOMPANYING AGITATION, PALLOR, FATIGUE, DIZZINESS, SOB, AND UPPER ABD PAIN. CT CHEST/ABD/PELVIS SHOWED MULTIPLE BL PULMONARY NODULES LARGEST IN THE LEFT LOWER LOBE MEASURING 1.4CM SUSPICIOUS FOR METASTASIS DISEAS, CIRRHOSIS OF THE LIVER,PATCHY HYPO PERFUSION OF THE KIDNEY SUSPICIOUS FOR PYLENEPHRITIS, MILD THICKENING AT THE PROXIMAL SMALL BOWEL SUSPICIOUS FOR ENTERITIS, AND NONOBSTRUCTING BL NEPHROLITHIASIS INTERVAL:STILL HAS BLACK STOOL BUT IMPROVING. HGB TO 7.9, PLT 31. WILL TRANSFUSE 1U PLATELETS GI BEED -CIRRHOSIS OF THE LIVER -PATCHY HYPOPERFUSION OF THE KIDNEYS, SUSPICIOUS FOR PYLENEPHRITIS -MILD THICKENING OF PROXIMAL SPOT BOWEL, SUSPICIOUS FOR ENTERITIS -S/P TRANSFUSE 2U PRBC ON 09/28 -STOOL OCCULT/FABIOLA + -EGD NEG FOR ACTIVE BLEEDING HGB 7.9 ANEMIA -S/P 2U PRBC ON 09/28/24 CIRRHOSIS -GI CONSULTED THROMBOCYTOPENIA -ACUTE ON CHRONIC Alerting PCP team to this note for continuity of care. Anticipated postacute care needs: /loly/ DONNA CARSONN RN REGISTERED NURSE Signed: 10/01/2024 15:34 Receipt Acknowledged By: 10/01/2024 15:45 /es/ SUKHJINDER CHAHAL, AMY- NURSE PRACTITIONER 10/02/2024 08:33 /loly/ STEVEN PRO, RN, BSN Registered Nurse DONNA CEDILLO [facility] Sep 26, 2024 03:14 PM NONVA NOTE: LOCAL TITLE: COMMUNITY CARE-MATHEW SELF PRESENTING CARE COORD PLAN STANDARD TITLE: NONVA NOTE DATE OF NOTE: SEP 26, 2024@15:14 ENTRY DATE: OCT 01, 2024@15:15:07 AUTHOR: DONNA CEDILLO EXP COSIGNER: URGENCY: STATUS: COMPLETED COMMUNITY CARE-MATHEW SELF PRESENTING CARE COORD PLAN 657 STL Has ADDENDA Emergency Notification Intake Date Presenting to the Facility: Sep Method of Contact: Submitted to Centralized Call Center Notification ID: [id number] [facility] Referral #: [id number] [facility] Address: City: [place] State: [place] Zip Code: Phone : [facility] Facility Point of Contact: Name: Phone: Chief complaint: ANEMIA Primary Diagnosis: Disposition Unknown at time of intake note entry EXCERPT FROM HOSPITAL NOTE BELOW Currently hospitalized. Per most recent progress note: 69 YEAR OLD MALE PRESENTS FROM HOME VIA EMS ON 09/26 FOR FURTHER EVAL OF POSSIBLE GI BLEED. HE REPORTS ONSET OF DARK TARRY STOOLS YESTERDAY. THEN DEVELOPED N/V W/COFFEE-GROUND APPEARANCE TODAY. HE REPORTS ACCOMPANYING AGITATION, PALLOR, FATIGUE, DIZZINESS, SOB, AND UPPER ABD PAIN. CT CHEST/ABD/PELVIS SHOWED MULTIPLE BL PULMONARY NODULES LARGEST IN THE LEFT LOWER LOBE MEASURING 1.4CM SUSPICIOUS FOR METASTASIS DISEAS, CIRRHOSIS OF THE LIVER,PATCHY HYPO PERFUSION OF THE KIDNEY SUSPICIOUS FOR PYLENEPHRITIS, MILD THICKENING AT THE PROXIMAL SMALL BOWEL SUSPICIOUS FOR ENTERITIS, AND NONOBSTRUCTING BL NEPHROLITHIASIS INTERVAL:STILL HAS BLACK STOOL BUT IMPROVING. HGB TO 7.9, PLT 31. WILL TRANSFUSE 1U PLATELETS GI BEED -CIRRHOSIS OF THE LIVER -PATCHY HYPOPERFUSION OF THE KIDNEYS, SUSPICIOUS FOR PYLENEPHRITIS -MILD THICKENING OF PROXIMAL SPOT BOWEL, SUSPICIOUS FOR ENTERITIS -S/P TRANSFUSE 2U PRBC ON 09/28 -STOOL OCCULT/FABIOLA + -EGD NEG FOR ACTIVE BLEEDING HGB 7.9 ANEMIA -S/P 2U PRBC ON 09/28/24 CIRRHOSIS -GI CONSULTED THROMBOCYTOPENIA -ACUTE ON CHRONIC Alerting PCP team to this note for continuity of care. Anticipated postacute care needs: /es/ DONNA CEDILLO BSN RN REGISTERED NURSE Signed: 10/01/2024 15:34 Receipt Acknowledged By: 10/01/2024 15:45 /es/ AMY PA- NURSE PRACTITIONER 10/02/2024 08:33 /es/ STEVEN PRO, RN, BSN Registered Nurse 10/05/2024 ADDENDUM STATUS: COMPLETED Discharge Disposition Date of discharge: Sep Disposition Discharge to home [place] records sent securely to [place] PCP and RNCM. Alerting PCP team to this note for continuity of care. Records r/t this episode of care sent to [facility] for scanning. Discharge Summary Records:SHARED SECURELY WITH PACT RN AND SENT TO [facility] FOR SCANNING Hospital/discharge Summary (per discharge note): PT WAS SEEN AND EXAMINED AT BEDSIDE. HE FEELS FINE. DENIES ANY CHEST PAIN, SOB, ABD PAIN, N/V. STOOL IS BROWN. HGB IMPROVED TO 7.7, PLT 45. NO BLEEDING REPORTED. PT REQUESTED TO BE D/C. F/U W/PCP. F/U W/ONCOLOGY SCHEDULED. CONT TAKING IRON PILLS. F/U W/REPEAT BLOOD TESTS IN 2-3 DAYS Important Medication Changes: Start - CARVEDILOL 6.25MG PO Q12HR Stop - PROPANOLOL 10MG Change-N/A *Medication reconciliation needed* Post-Discharge Needs PACT: F/U W/ONCOLOGY SCHEDULED 1) OR PCP follow up F/U W/PCP IN [address] the below consults:N/A ([facility] or [place] internal consults needed for ALL follow up care) /loly/ DONNA CARSONN RN REGISTERED NURSE Signed: 10/05/2024 11:15 Receipt Acknowledged By: * AWAITING SIGNATURE * SUKHJINDER CHAHAL * AWAITING SIGNATURE * STEVEN PRO SHAMEKA N [facility]
--- OUTSIDE RECORDS SUMMARY | 2024-10-08 17:11 | XMS_ITS | Clinical Summary ---
Author Organization [facility] Address [facility] [place] [address] Care Team Providers Care Strainer Tender Name Role Phone Unavailable Primary Care Provider [...]
--- OUTSIDE RECORDS SUMMARY | 2024-10-08 17:11 | XMS_ITS | Encounter Summary ---
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 Date/Time Encounter Type Encounter Description Reason Provider Source Aug 14, 2024 11:15 AM EGD BIOPSY SINGLE/MULTIPLE GI ENDOSCOPY ICD-10-CM K92.1 CLARE Corea IHAbdiel Encounter Template Text not used by [place] Assessments - Encounter Diagnoses This section includes the primary and secondary diagnoses documented for the Encounter. Date/Time Primary/Secondary Diagnosis Diagnosis Name Provider Source Aug 15, 2024 09:00 AM PRIMARY Beba LOTTIE DAVIS Thomas [facility] Aug 15, 2024 09:00 AM SECONDARY Acute duodenal ulcer without hemorrhage or perforation LOTTIE DAVIS Thomas [facility] Aug 15, 2024 09:00 AM SECONDARY Esophageal varices without bleeding LOTTIE DAVIS [facility] Aug 15, 2024 09:00 AM SECONDARY Other diseases of stomach and duodenum [facility] Plan of Treatment: Future Appointments (+ 6 months) and Future Tests (+/- 45 days) The Plan of Treatment section includes future care activities for the patient from all [place] [facility]. This section includes future appointments and future orders which are active, pending or scheduled. Future Appointments This section includes appointments that were scheduled to occur 6 months from the date of the Encounter, up to a maximum of 20 appointments. The data comes from all [place] treatment facilities. Appointment Date/Time Appointment Type Appointme nt Facility Name Aug 16, 2024 10:00 AM AMBULATORY - MEDICINE [facility] Aug 17, 2024 08:30 AM AMBULATORY - MEDICINE [facility] Aug 17, 2024 09:00 AM AMBULATORY - MEDICINE [facility] Aug 17, 2024 09:30 AM AMBULATORY - MEDICINE [facility] Aug 23, 2024 12:00 PM AMBULATORY - NONE [facility] Aug 31, 2024 02:00 PM AMBULATORY - MEDICINE [facility] Sep 07, 2024 11:00 AM AMBULATORY - MEDICINE [facility] Sep 07, 2024 01:00 PM AMBULATORY - MEDICINE [facility] Oct 15, 2024 03:00 PM AMBULATORY - SURGERY [facility] Oct 19, 2024 02:00 PM AMBULATORY - NONE [facility] Active, Pending, and Scheduled Orders This section includes a listing of several types of active, pending, and scheduled orders, including clinic medications orders, diagnostic test orders, procedure orders and consult orders; where the start date of the order is 45 days before the date of the Encounter or 45 days after the date of theEncounter. The data comes from all [facility] facilities. Test Date/Time Test Type Test Details Facility Name Jul 17, 2024 12:00 AM Laboratory - Blood Bank Order RED BLOOD CELLS - LAB [facility]ECS - [facility] SPECIMEN [facility] Jul 17, 2024 12:00 AM Laboratory - Blood Bank Order FRESH FROZEN PLASMA - LAB VBECS - NO SPECIMEN [facility] Jul 17, 2024 06:13 PM Laboratory - Blood Bank Order DIRECT ANTIGLOBULIN TEST - LAB BLOOD STAT [facility] Jul 17, 2024 06:13 PM Laboratory - Blood Bank Order TYPE & SCREEN - LAB BLOOD [facility] Jul 18, 2024 12:00 AM Laboratory - Blood Bank Order PLATELETS - LAB VBECS - NO SPECIMEN [facility] Aug 10, 2024 12:00 AM Laboratory - Blood Bank Order RED BLOOD CELLS - LAB VBECS - NO SPECIMEN REQUIRED [facility] Aug 10, 2024 02:00 PM Laboratory - Blood Bank Order TYPE & SCREEN - LAB BLOOD [facility] Aug 10, 2024 05:43 PM Laboratory - Chemistry Order LIPASE GREEN LI/HEP BLD/PLAS PLASMA STAT I ONCE [facility] Aug 10, 2024 05:44 PM Laboratory - Microbiology Order BLOOD CULT (SET 2) B D BLD. BOTTLE (SET 2) BLOOD JOANN I NOW [facility] Aug 11, 2024 02:00 AM Laboratory - Chemistry Order CBC BLOOD [facility] Aug 14, 2024 02:00 AM Laboratory - Chemistry Order CBC BLOOD [facility] Aug 15, 2024 02:00 AM Laboratory - Chemistry Order CBC BLOOD WC [facility] Aug 16, 2024 12:00 AM Laboratory - Chemistry Order CBC BLOOD SP [facility] Aug 16, 2024 08:00 PM Laboratory - Chemistry Order CBC BLOOD LC [facility] Aug 17, 2024 08:00 PM Laboratory - Chemistry Order CBC BLOOD LC [facility] Sep 27, 2024 12:00 AM Laboratory - Chemistry Order CBC BLOOD SP [facility] Sep 27, 2024 12:00 AM Laboratory - Chemistry Order COMPREHENSIVE METABOLIC PANEL GREEN LI/HEP BLD/PLAS PLASMA SP [facility] Lab Results: +/- 30 days of [...] Type Comment Sep 07, 2024 12:39 PM [facility] COMPREHENSIVE METABOLIC PANEL PLASMA Specimen Type: PLASMA Comment: No hemolysis noted. Ordering Provider: TONY SIMMONS Report Released Date/Time: Aug 31, 2024 02:42 PM Reporting Lab: [address] [address] Performing Lab: [address] [address] CREATININE 0.87 mg/dL 0.7-1.3 UREA NITROGEN 24.5 [...] >60 Sep 07, 2024 12:39 PM [facility] CBC BLOOD Specimen Type: BLOOD No comment entered. Ordering Provider: TONY SIMMONS Report Released Date/Time: Aug 31, 2024 02:42 PM Reporting Lab: [address] [address] Performing Lab: [address] [address] WBC 5.1 10*3/uL 3.6-11.2 RBC 3.44 10*6/uL [...] 10*3/uL 2.10-8.00 Sep 07, 2024 12:39 PM [facility] ALPHA-FETOPROTEIN(STL-PB) SERUM Specimen Type : SERUM No comment entered. Ordering Provider: CRYSTAL MASSEY Report Released Date/Time: Sep 07, 2024 11:59 AM Reporting Lab: [address] [address] Performing Lab: [facility] [address] [address] ALPHA-FETOPROTEIN(STL-PB) 15.01 ng/mL H 1- 8.78 Aug 31, 2024 02:04 PM [facility] COMPREHENSIVE METABOLIC PANEL PLASMA Specimen Type: PLASMA Comment: No hemolysis noted. Ordering Provider: TONY SIMMONS Report Released Date/Time: Aug 27, 2024 12:35 PM Reporting Lab: [address] [address] Performing Lab: [address] [address] CREATININE 0.90 mg/dL 0.7-1.3 UREA NITROGEN 26.4 [...] >60 Aug 31, 2024 02:04 PM [facility] CBC BLOOD Specimen Type: BLOOD No comment entered. Ordering Provider: TONY SIMMONS Report Released Date/Time: Aug 27, 2024 12:35 PM Reporting Lab: [address] [address] Performing Lab: [address] [address] WBC 4.7 10*3/uL 3.6-11.2 RBC 3.54 10*6/uL [...] 10*3/uL 2.10-8.00 Aug 17, 2024 03:34 PM [facility] TSH W/ REFLEX FT4 (STL) PLASMA Specimen Type: PLASMA No comment entered. Ordering Provider: TONY SIMMONS Report Released Date/Time: Aug 10, 2024 12:01 PM Reporting Lab: [address] [address] Performing Lab: [address] [address] TSH 4.570 u[IU]/mL 0.47-5 Aug 17, 2024 03:34 PM [facility] COMPREHENSIVE METABOLIC PANEL PLASMA Specimen Type: PLASMA Comment: No hemolysis noted. Ordering Provider: TONY SIMMONS Report Released Date/Time: Aug 10, 2024 12:01 PM Reporting Lab: [address] [address] Performing Lab: [address] [address] CREATININE 0.85 mg/dL 0.7-1.3 UREA NITROGEN 11.5 [...] >60 Aug 17, 2024 03:34 PM [facility] CBC BLOOD Specimen Type: BLOOD Comment: No Clots Ordering Provider: TONY SIMMONS Report Released Date/Time: Aug 10, 2024 12:01 PM Reporting Lab: [address] [address] Performing Lab: [address] [address] WBC 5.0 10*3/uL 3.6-11.2 RBC 2.83 10*6/uL [...] 1.0-7.0 Aug 15, 2024 07:20 AM [facility] CBC BLOOD Specimen Type: BLOOD Comment: No clots detected in specimen. Ordering Provider: CASH CLOUD Report Released Date/Time: Aug 12, 2024 01:47 PM Reporting Lab: [facility] [address] [facility] [address] Performing Lab: [address] [address] WBC 4.9 10*3/uL 3.6-11.2 RBC 2.93 10*6/uL [...] 10*3/uL 2.10-8.00 Aug 15, 2024 04:54 AM [facility] GLUCOSE,BLOOD-poct (STL) BLOOD Specimen Type: BLOOD Comment: Test Performed by: [id number] Meter #: [id number] Ordering Provider: DEIRDRE WILD Report Released Date/Time: Aug 15, 2024 05:21 AM Reporting Lab: [place] [address] [facility] [address] Performing Lab: [address] [address] GLUCOSE,BLOOD-poct (STL) 112 mg/dL H 72-99 Aug 14, 2024 08:30 PM [facility] CRP PLASMA Specimen Type: PLASM A No comment entered. Ordering Provider: CASH CLOUD Report Released Date/Time: Aug 12, 2024 10:14 AM Reporting Lab: [address] [address] Performing Lab: [address] [address] CRP 0.7 mg/dL H 0-0.5 Aug 14, 2024 08:30 PM [facility] CBC BLOOD Specimen Type: BLOOD No comment entered. Ordering Provider: GILSON OG Report Released Date/Time: Aug 10, 2024 04:01 PM Reporting Lab: [address] [address] Performing Lab: [address] [address] WBC 4.6 10*3/uL 3.6-11.2 RBC 2.83 10*6/uL [...] 10*3/uL 2.10-8.00 Aug 14, 2024 07:54 PM [facility] GLUCOSE,BLOOD-poct (STL) BLOOD Specimen Type: BLOOD Comment: Test Performed by: [id number] Meter #: [id number] Ordering Provider: DEIRDRE WILD Report Released Date/Time: Aug 14, 2024 08:15 PM Reporting Lab: [address] [address] Performing Lab: [address] [address] GLUCOSE,BLOOD-poct (STL) 112 mg/dL H 72-99 Aug 14, 2024 04:10 PM [facility] GLUCOSE,BLOOD-poct (STL) BLOOD Specimen Type: BLOOD Comment: Test Performed by: [id number] Meter #: [id number] Ordering Provider: DEIRDRE WILD Report Released Date/Time: Aug 14, 2024 04:43 PM Reporting Lab: [address] [address] Performing Lab: [address] [address] GLUCOSE,BLOOD-poct (STL) 115 mg/dL H 72-99 Aug 14, 2024 02:05 PM [facility] COMPREHENSIVE METABOLIC PANEL PLASMA Specimen Type: PLASMA Comment: No hemolysis noted. Ordering Provider: GILSON OG Report Released Date/Time: Aug 14, 2024 06:56 AM Reporting Lab: [address] [address] Performing Lab: [address] [address] CREATININE 0.75 mg/dL 0.7-1.3 UREA NITROGEN 9.3 [...] >60 Aug 14, 2024 02:05 PM [facility] CBC BLOOD Specimen Type: BLOOD Comment: No platelet clots or clumping detected. Ordering Provider: GILSON OG Report Released Date/Time: Aug 10, 2024 04:01 PM Reporting Lab: [facility] [address] [facility] [address] Performing Lab: [address] [address] WBC 4.6 10*3/uL 3.6-11.2 RBC 3.06 10*6/uL [...] 10*3/uL 2.10-8.00 Aug 14, 2024 10:12 AM [facility] GLUCOSE,BLOOD-poct (STL) BLOOD Specimen Type: BLOOD Comment: Test Performed by: [id number] Meter #: [id number] Ordering Provider: DEIRDRE WILD Report Released Date/Time: Aug 14, 2024 10:13 AM Reporting Lab: [place] [phone] Performing Lab: [address] [address] GLUCOSE,BLOOD-poct (L) 112 mg/dL H 72-99 Aug 14, 2024 09:20 AM [facility] PT/INR NEW (L-MA) PLASMA Specimen Type: PLAS MA No comment entered. Ordering Provider: GILSON OG Report Released Date/Time: Aug 14, 2024 09:06 AM Reporting Lab: [address] [address] Performing Lab: [address] [address] PROTIME 13.6 s H 9.4-12.5 INR VALUE 1.2 {INR} Aug 14, 2024 06:51 AM [facility] CBC BLOOD Specimen Type: BLOOD No comment entered. Ordering Provider: CASH CLOUD Report Released Date/Time: Aug 12, 2024 01:47 PM Reporting Lab: [address] [address] Performing Lab: [address] [address] WBC 3.8 10*3/uL 3.6-11.2 RBC 2.56 10*6/uL [...] 10*3/uL 2.10-8.00 Aug 14, 2024 06:03 AM [facility] GLUCOSE,BLOOD-poct (STL) BLOOD Specimen Type: BLOOD Comment: Test Performed by: [id number] Meter #: [id number] Ordering Provider: DEIRDRE WILD Report Released Date/Time: Aug 14, 2024 06:07 AM Reporting Lab: [facility] [address] [facility] [address] Performing Lab: [address] [address] GLUCOSE,BLOOD-poct (STL) 114 mg/dL H 72-99 Aug 13, 2024 09:11 PM [facility] GLUCOSE,BLOOD-poct (STL) BLOOD Specimen Type: BLOOD Comment: Test Performed by: [id number] Meter #: [id number] Ordering Provider: DEIRDRE WILD Report Released Date/Time: Aug 13, 2024 09:40 PM Reporting Lab: [facility] [address] [facility] [address] Performing Lab: [facility] [address] [facility] [address] GLUCOSE,BLOOD-poct (STL) 160 mg/dL H 72-99 Aug 13, 2024 07:10 PM [facility] COMPREHENSIVE METABOLIC PANEL PLASMA Specimen Type: PLASMA Comment: No hemolysis noted. Ordering Provider: GILSON OG Report Released Date/Time: Aug 14, 2024 07:03 AM Reporting Lab: [place] [address] [facility] [address] Performing Lab: [address] [address] CREATININE 0.75 mg/dL 0.7-1.3 UREA NITROGEN 10.3 [...] >60 Aug 13, 2024 07:10 PM [facility] CRP PLASMA Specimen Type: PLASM A No comment entered. Ordering Provider: CASH CLOUD Report Released Date/Time: Aug 12, 2024 10:14 AM Reporting Lab: [facility] [address] [facility] [address] Performing Lab: [address] [address] CRP 0.7 mg/dL H 0-0.5 Aug 13, 2024 07:10 PM [facility] CBC BLOOD Specimen Type: BLOOD No comment entered. Ordering Provider: GILSON OG Report Released Date/Time: Aug 10, 2024 04:01 PM Reporting Lab: [address] [address] Performing Lab: [address] [address] WBC 5.3 10*3/uL 3.6-11.2 RBC 2.67 10*6/uL [...] 10*3/uL 2.10-8.00 Aug 13, 2024 04:35 PM [facility] GLUCOSE,BLOOD-poct (STL) BLOOD Specimen Type: BLOOD Comment: Test Performed by: [id number] Meter #: [id number] Ordering Provider: DEIRDRE WILD Report Released Date/Time: Aug 13, 2024 05:18 PM Reporting Lab: [address] [address] Performing Lab: [address] [address] GLUCOSE,BLOOD-poct (STL) 113 mg/dL H 72-99 Aug 13, 2024 02:36 PM [facility] CBC BLOOD Specimen Type: BLOOD No comment entered. Ordering Provider: GILSON OG Report Released Date/Time: Aug 10, 2024 04:01 PM Reporting Lab: [facility] [address] [facility] [address] Performing Lab: [facility] [address] [facility] [address] WBC 5.8 10*3/uL 3.6-11.2 RBC 2.77 10*6/uL [...] 10*3/uL 2.10-8.00 Aug 13, 2024 11:37 AM [facility] GLUCOSE,BLOOD-poct (STL) BLOOD Specimen Type: BLOOD Comment: Test Performed by: [id number] Meter #: [id number] Ordering Provider: DEIRDRE WILD Report Released Date/Time: Aug 13, 2024 11:38 AM Reporting Lab: [place] [address] [facility] [address] Performing Lab: [place] [address] [facility] [address] GLUCOSE,BLOOD-poct (STL) 131 mg/dL H 72-99 Aug 13, 2024 08:06 AM [facility] CBC BLOOD Specimen Type: BLOOD Comment: no clot Ordering Provider: CASH CLOUD Report Released Date/Time: Aug 12, 2024 01:47 PM Reporting Lab: [place] [address] [address] [facility] [address] Performing Lab: [place] [address] [facility] [address] WBC 3.0 10*3/uL L 3.6-11.2 RBC 2.61 [...] 10*3/uL 2.10-8.00 Aug 13, 2024 04:45 AM [facility] GLUCOSE,BLOOD-poct (STL) BLOOD Specimen Type: BLOOD Comment: Test Performed by: [id number] Meter #: [id number] Ordering Provider: DEIRDRE WILD Report Released Date/Time: Aug 13, 2024 06:18 AM Reporting Lab: [address] [address] Performing Lab: [address] [address] GLUCOSE,BLOOD-poct (STL) 139 mg/dL H 72-99 Aug 12, 2024 10:10 PM [facility] GLUCOSE,BLOOD-poct (STL) BLOOD Specimen Type: BLOOD Comment: Test Performed by: [id number] Meter #: [id number] Ordering Provider: DEIRDRE WILD Report Released Date/Time: Aug 12, 2024 10:50 PM Reporting Lab: [address] [address] Performing Lab: [place] [phone] GLUCOSE,BLOOD-poct (STL) 105 mg/dL H 72-99 Aug 12, 2024 08:48 PM [facility] CBC BLOOD Specimen Type: BLOOD Comment: SEE PREVIOUS DIFFERENTIAL ON 08/12/24 @ 1807 Ordering Provider: GILSON OG Report Released Date/Time: Aug 10, 2024 04:01 PM Reporting Lab: [address] [address] Performing Lab: [place] [phone] WBC 5.0 10*3/uL 3.6-11.2 RBC 2.78 10*6/uL [...] 1.0-7.0 Aug 12, 2024 08:48 PM [facility] CRP PLASMA Specimen Type: PLASM A No comment entered. Ordering Provider: CASH LCOUD Report Released Date/Time: Aug 12, 2024 10:14 AM Reporting Lab: [address] [address] Performing Lab: [address] [address] CRP 0.6 mg/dL H 0-0.5 Aug 12, 2024 04:51 PM [facility] GLUCOSE,BLOOD-poct (STL) BLOOD Specimen Type: BLOOD Comment: Test Performed by: [id number] Meter #: [id number] Ordering Provider: DEIRDRE WILD Report Released Date/Time: Aug 12, 2024 05:07 PM Reporting Lab: [address] [address] Performing Lab: [address] [address] GLUCOSE,BLOOD-poct (STL) 135 mg/dL H 72-99 Aug 12, 2024 02:33 PM [facility] CBC BLOOD Specimen Type: BLOOD No comment entered. Ordering Provider: GILSON OG Report Released Date/Time: Aug 10, 2024 04:01 PM Reporting Lab: [address] [address] Performing Lab: [facility] [address] [facility] [address] WBC 4.0 10*3/uL 3.6-11.2 RBC 2.56 10*6/uL [...] 10*3/uL 2.10-8.00 Aug 12, 2024 11:51 AM [facility] GLUCOSE,BLOOD-poct (STL) BLOOD Specimen Type: BLOOD Comment: Test Performed by: [id number] Meter #: [id number] Ordering Provider: DEIRDRE WILD Report Released Date/Time: Aug 12, 2024 12:26 PM Reporting Lab: [address] [address] Performing Lab: [address] [address] GLUCOSE,BLOOD-poct (STL) 139 mg/dL H 72-99 Aug 12, 2024 07:35 AM [facility] CBC BLOOD Specimen Type: BLOOD Comment: prev diff 08/11/24. Ordering Provider: GILSON OG Report Released Date/Time: Aug 10, 2024 04:01 PM Reporting Lab: [place] [address] [facility] [address] Performing Lab: [address] [address] WBC 3.0 10*3/uL L 3.6-11.2 RBC 2.54 [...] 0.00-0. 20 Aug 12, 2024 05:49 AM [facility] GLUCOSE,BLOOD-poct (STL) BLOOD Specimen Type: BLOOD Comment: Test Performed by: [id number] Meter #: [id number] Ordering Provider: DEIRDRE WILD Report Released Date/Time: Aug 12, 2024 05:50 AM Reporting Lab: [address] [address] Performing Lab: [address] [address] GLUCOSE,BLOOD-poct (STL) 112 mg/dL H 72-99 Aug 12, 2024 01:45 AM [facility] CBC BLOOD Specimen Type: BLOOD Comment: SEE PREVIOUS DIFFERENTIAL ON 08/12/24 @ 0239 [facility] Ordering Provider: GILSON OG Report Released Date/Time: Aug 10, 2024 04:01 PM Reporting Lab: [facility] [address] [place] [address] Performing Lab: [address] [address] WBC 2.6 10*3/uL L 3.6-11.2 RBC 2.42 [...] 1.0-7.0 Aug 11, 2024 09:25 PM [facility] CBC BLOOD Specimen Type: BLOOD No comment entered. Ordering Provider: GILSON OG Report Released Date/Time: Aug 10, 2024 04:01 PM Reporting Lab: [address] [address] Performing Lab: [address] [address] WBC 3.6 10*3/uL 3.6-11.2 RBC 2.54 10*6/uL [...] 10*3/uL 2.10-8.00 Aug 11, 2024 09:17 PM [facility] GLUCOSE,BLOOD-poct (STL) BLOOD Specimen Type: BLOOD Comment: Test Performed by: [id number] Meter #: [id number] Ordering Provider: DEIRDRE WILD Report Released Date/Time: Aug 11, 2024 09:21 PM Reporting Lab: [address] [address] Performing Lab: [address] [address] GLUCOSE,BLOOD-poct (STL) 167 mg/dL H 72-99 Aug 11, 2024 04:42 PM [facility] CBC BLOOD Specimen Type: BLOOD No comment entered. Ordering Provider: YVONNE HARRISON Report Released Date/Time: Aug 11, 2024 04:41 PM Reporting Lab: [address] [address] Performing Lab: [address] [address] WBC 4.0 10*3/uL 3.6-11.2 RBC 2.74 10*6/uL [...] 10*3/uL 2.10-8.00 Aug 11, 2024 04:30 PM [facility] GLUCOSE,BLOOD-poct (L) BLOOD Specimen Type: BLOOD Comment: Test Performed by: [id number] Meter #: [id number] Ordering Provider: DEIRDRE WILD Report Released Date/Time: Aug 11, 2024 06:06 PM Reporting Lab: [address] [address] Performing Lab: [address] [address] GLUCOSE,BLOOD-poct (STL) 95 mg/dL 72-99 Aug 11, 2024 11:08 AM [facility] GLUCOSE,BLOOD-poct (STL) BLOOD Specimen Type: BLOOD Comment: Test Performed by: [id number] Meter #: [id number] Ordering Provider: DEIRDRE WILD Report Released Date/Time: Aug 11, 2024 11:10 AM Reporting Lab: [place] [address] [facility] [address] Performing Lab: [place] [address] [facility] [address] GLUCOSE,BLOOD-poct (STL) 117 mg/dL H 72-99 Aug 11, 2024 06:00 AM [facility] PT/INR NEW (STL-MA) PLASMA Specimen Type: PLAS MA No comment entered. Ordering Provider: GILSON OG Report Released Date/Time: Aug 10, 2024 06:20 PM Reporting Lab: [place] [address] [facility] [address] Performing Lab: [address] [address] PROTIME 15.5 s H 9.4-12.5 INR VALUE 1.4 {INR} Aug 11, 2024 06:00 AM [facility] IRON/TIBC PROFILE SERUM Specimen Type: SERUM No comment entered. Ordering Provider: GILSON OG Report Released Date/Time: Aug 10, 2024 04:02 PM Reporting Lab: [address] [address] Performing Lab: [place] [address] [facility] [address] TIBC 263 ug/dL 250-450 TRANSFERRIN 210 mg/dL 163-344 IRON SATURATION 8 L 20-50 IRON 21 ug/dL L 65-175 Aug 11, 2024 06:00 AM [facility] HEPATIC FUNTION PANEL (STL) PLASMA Specimen Ty pe: PLASMA No comment entered. Ordering Provider: GILSON OG Report Released Date/Time: Aug 10, 2024 04:02 PM Reporting Lab: [address] [address] Performing Lab: [address] [address] PROTEIN 5.4 g/dL L 6-8.6 ALBUMIN 2.6 g/dL L 3.4-5 TOTAL BILIRUBIN 0.8 mg/dL 0.2-1.2 ALKALINE PHOSPHATASE 72 U/L 40-150 AST/SGOT 28 U/L 5-34 ALT/SGPT 10 U/L 8-40 CONJ. BILIRUBIN 0.4 mg/dL 0-0.5 Aug 11, 2024 06:00 AM [facility] APTT PLASMA Specimen Type: PLASM A No comment entered. Ordering Provider: GILSON OG Report Released Date/Time: Aug 10, 2024 06:20 PM Reporting Lab: [address] [address] Performing Lab: [address] [address] APTT 25.5 s L 26.7-39.9 Aug 11, 2024 06:00 AM [facility] CBC BLOOD Specimen Type: BLOOD No comment entered. Ordering Provider: GILSON OG Report Released Date/Time: Aug 10, 2024 04:01 PM Reporting Lab: [place] [address] [facility] [address] Performing Lab: [address] [address] WBC 2.4 10*3/uL L 3.6-11.2 RBC 2.42 [...] L 2.10-8.00 Aug 10, 2024 09:00 PM [facility] BASIC METABOLIC PANEL PLASMA Specimen Type: PL ASMA Comment: No hemolysis noted. Ordering Provider: GILSON OG Report Released Date/Time: Aug 10, 2024 04:01 PM Reporting Lab: [address] [address] Performing Lab: [address] [address] CREATININE 0.84 mg/dL 0.7-1.3 UREA NITROGEN 16.8 mg/dL 9.0-25.0 GLUCOSE 104 mg/dL H 72-99 SODIUM 133 meq/L L 136-145 POTASSIUM 3.5 meq/L 3.5-5 CHLORIDE 103 meq/L 98-107 CARBON DIOXIDE 23 meq/L 22-31 CALCIUM 8.4 mg/dL 8.4-10.4 EGFR (CKD-EPI 2020) 95.6 >60 Aug 10, 2024 09:00 PM [facility] CBC BLOOD Specimen Type: BLOOD No comment entered. Ordering Provider: GILSON OG Report Released Date/Time: Aug 10, 2024 04:01 PM Reporting Lab: [address] [address] Performing Lab: [address] [address] WBC 4.3 10*3/uL 3.6-11.2 RBC 2.22 10*6/uL [...] 10*3/uL 2.10-8.00 Aug 10, 2024 06:30 PM [facility] MRSA SURVL NARES DNA NARES Specimen [...] Aug 10, 2024 04:01 PM Reporting Lab: [facility] [address] [facility] [address] Performing Lab: [place] [address] [facility] [address] MRSA SURVL NARES DNA Negative Negative Aug 10, 2024 06:02 PM [facility] GLUCOSE,BLOOD-poct (STL) BLOOD Specimen Type: BLOOD Comment: Test Performed by: [id number] Meter #: [id number] Ordering Provider: YASIR SANZ MD Report Released Date/Time: Aug 10, 2024 06:04 PM Reporting Lab: [place] [address] [facility] [address] Performing Lab: [place] [address] [facility] [place] [id number] GLUCOSE,BLOOD-poct (STL) 94 mg/dL 72-99 Aug 10, 2024 02:12 PM [facility] PT/INR NEW (STL-MA) PLASMA Specimen Type: PLAS MA No comment entered. Ordering Provider: YASIR SANZ MD Report Released Date/Time: Aug 10, 2024 02:00 PM Reporting Lab: [place] [address] [facility] [place] [address] Performing Lab: [place] [phone] PROTIME 13.8 s H 9.4-12.5 INR VALUE 1.2 {INR} Aug 10, 2024 02:12 PM [facility] APTT PLASMA Specimen Type: PLASM A No comment entered. Ordering Provider: YASIR SANZ MD Report Released Date/Time: Aug 10, 2024 02:00 PM Reporting Lab: [place] [address] [facility] [place] [address] Performing Lab: [place] [address] [facility] [place] [address] APTT 20.1 s L 26.7-39.9 Aug 10, 2024 11:30 AM [facility] TSH W/ REFLEX FT4 (STL) PLASMA Specimen Type: PLASMA No comment entered. Ordering Provider: TONY SIMMONS Report Released Date/Time: Aug 02, 2024 12:33 PM Reporting Lab: [address] [address] Performing Lab: [address] [address] TSH 3.991 u[IU]/mL 0.47-5 Aug 10, 2024 11:30 AM [facility] COMPREHENSIVE METABOLIC PANEL PLASMA Specimen Type: PLASMA Comment: No hemolysis noted. Ordering Provider: TONY SIMMONS Report Released Date/Time: Aug 02, 2024 12:33 PM Reporting Lab: [address] [address] Performing Lab: [address] [address] CREATININE 0.82 mg/dL 0.7-1.3 UREA NITROGEN 21.7 [...] >60 Aug 10, 2024 11:30 AM [facility] CBC BLOOD Specimen Type: BLOOD No comment entered. Ordering Provider: TONY SIMMONS Report Released Date/Time: Aug 02, 2024 12:33 PM Reporting Lab: [address] [address] Performing Lab: [address] [address] WBC 7.4 10*3/uL 3.6-11.2 RBC 2.81 10*6/uL [...] 0.00-0. 20 Aug 02, 2024 11:53 AM [facility] PROTEIN ELECTROPHORESIS BLOOD SERUM Specimen Type: SERUM Comment: Reference Range: None Detected NOTE: THIS RESULT IS FLAGGED ABNORMAL Evaluation reveals a restricted band (M-spike) migrating in the gamma globulin region. If not already requested, Immunofixation should be considered. Test Performed by [facility], [employer] [facility], [address] [place] [address] Tristin Iyer M.D., Ph.D., Director of Laboratories , [place] [id number] PREVIOUS SUGAR: IgG [place] Ordering Provider: TONY SIMMONS Report Released Date/Time: Jul 13, 2024 01:49 PM Reporting Lab: [facility] [address] [place] [address] Performing Lab: [address] ALPHA-1 GLOBULIN(SO-PB-STL) 0.4 g/dL H 0.2 [...] g/dL H Aug 02, 2024 11:53 AM [facility] IGA (STL) PLASMA Specimen Type: PLASM A Comment: No hemolysis noted. Ordering Provider: TONY SIMMONS Report Released Date/Time: Jul 13, 2024 01:49 PM Reporting Lab: [place] [address] [facility] [place] [address] Performing Lab: [place] [address] [address] [facility] [address] IGA (STL) 113 mg/dL 63-484 Aug 02, 2024 11:53 AM [facility] IGG (STL) PLASMA Specimen Type: PLASM A Comment: No hemolysis noted. Ordering Provider: TONY SIMMONS Report Released Date/Time: Jul 13, 2024 01:49 PM Reporting Lab: [place] [address] [facility] [place] [address] Performing Lab: [place] [address] [facility] [place] [address] IGG (STL) 1898 mg/dL H 540-1822 Aug 02, 2024 11:53 AM [facility] TSH W/ REFLEX FT4 (STL) PLASMA Specimen Type: PLASMA No comment entered. Ordering Provider: TONY SIMMONS Report Released Date/Time: Jul 13, 2024 01:49 PM Reporting Lab: [place] [address] [facility] [place] [address] Performing Lab: [place] [address] [facility] [place] [address] TSH 2.182 u[IU]/mL 0.47-5 Aug 02, 2024 11:53 AM [facility] IGM (STL) PLASMA Specimen Type: PLASM A Comment: No hemolysis noted. Ordering Provider: TONY SIMMONS Report Released Date/Time: Jul 13, 2024 01:49 PM Reporting Lab: [place] [address] [facility] [place] [address] Performing Lab: [address] [address] IGM (STL) 104 mg/dL 22-240 Aug 02, 2024 11:53 AM [facility] KAPPA/LAMBDA FREE LC PANEL (STL-PB) SERUM Spe cimen Type: SERUM No comment entered. Ordering Provider: TONY SIMMONS Report Released Date/Time: Jul 13, 2024 01:49 PM Reporting Lab: [address] [address] Performing Lab: [address] [address] KAPPA FREE LC (STL) 102.7 mg/L H 2.4-20.7 LAMBDA FREE LC (STL) 32.2 mg/L H 4.2-27.7 KAPPA/LAMBDA RATIO (STL) 3.19 H 0.22-1. 74 Aug 02, 2024 11:53 AM [facility] COMPREHENSIVE METABOLIC PANEL PLASMA Specimen Type: PLASMA Comment: No hemolysis noted. Ordering Provider: TONY SIMMONS Report Released Date/Time: Jul 13, 2024 01:49 PM Reporting Lab: [address] [address] Performing Lab: [address] [address] CREATININE 0.82 mg/dL 0.7-1.3 UREA NITROGEN 12.2 [...] >60 Aug 02, 2024 11:53 AM [facility] CBC BLOOD Specimen Type: BLOOD Comment: No Clots in specimen Ordering Provider: TONY SIMMONS Report Released Date/Time: Jul 13, 2024 01:49 PM Reporting Lab: [address] [address] Performing Lab: [address] [address] WBC 2.2 10*3/uL L 3.6-11.2 RBC 3.44 [...] L 2.10-8.00 Aug 01, 2024 10:10 AM [facility] GLUCOSE,BLOOD-poct (STL) BLOOD Specimen Type: BLOOD Comment: Test Performed by: [id number] Meter #: [id number] Ordering Provider: SUKHJINDER CHAHAL Report Released Date/Time: Aug 01, 2024 10:17 AM Reporting Lab: [address] [place] [address] Performing Lab: [facility] [address] [place] [address] GLUCOSE,BLOOD-poct (STL) 101 mg/dL H 72-99 Jul 27, 2024 01:54 PM [facility] TROPONIN I PLASMA Specimen Type: PLASM A Comment: No hemolysis noted. Ordering Provider: ELIZABETH COATES Report Released Date/Time: Jul 27, 2024 03:39 PM Reporting Lab: [address] [address] Performing Lab: [address] [address] TROPONIN I 0.011 ng/mL 0-0.033 Jul 27, 2024 01:54 PM [facility] BRAIN NATRIURETIC PEPTIDE PLASMA Specimen Type : PLASMA No comment entered. Ordering Provider: ELIZABETH COATES Report Released Date/Time: Jul 27, 2024 03:39 PM Reporting Lab: [address] [address] Performing Lab: [address] [address] BRAIN NATRIURETIC PEPTIDE 257.2 pg/mL H 0- 100 Jul 27, 2024 01:54 PM [facility] COMPREHENSIVE METABOLIC PANEL PLASMA Specimen Type: PLASMA Comment: No hemolysis noted. Ordering Provider: ELIZABETH COATES Report Released Date/Time: Jul 27, 2024 03:39 PM Reporting Lab: [address] [address] Performing Lab: [address] [address] CREATININE 0.70 mg/dL 0.7-1.3 UREA NITROGEN 7.4 [...] 101.0 >60 Jul 27, 2024 01:54 PM [facility] CBC BLOOD Specimen Type: BLOOD No comment entered. Ordering Provider: ELIZABETH COATES Report Released Date/Time: Jul 27, 2024 03:39 PM Reporting Lab: [facility] [address] [facility] [place] [address] Performing Lab: [facility] [address] [facility] [address] WBC 3.2 10*3/uL L 3.6-11.2 RBC 3.12 [...] 10*3/uL 2.10-8.00 Jul 21, 2024 02:00 PM [facility] B12 SERUM Specimen Type: SERUM No comment entered. Ordering Provider: JORJE DENSON Report Released Date/Time: Jul 21, 2024 12:54 PM Reporting Lab: [address] [address] Performing Lab: [address] [address] B12 1584 pg/mL H 213-816 Jul 21, 2024 02:00 PM [facility] FOLATE (L-MA) SERUM Specimen Type: SERUM No comment entered. Ordering Provider: JORJE DENSON Report Released Date/Time: Jul 21, 2024 12:54 PM Reporting Lab: [address] [address] Performing Lab: [address] [address] FOLATE (L-MA) 9.1 ng/mL 7-20 Jul 21, 2024 02:00 PM [facility] IRON/TIBC PROFILE SERUM Specimen Type: SERUM No comment entered. Ordering Provider: JORJE DENSON Report Released Date/Time: Jul 21, 2024 12:54 PM Reporting Lab: [address] [address] Performing Lab: [address] [address] TIBC 243 ug/dL L 250-450 TRANSFERRIN 194 mg/dL 163-344 IRON SATURATION 20 20-50 IRON 49 ug/dL L 65-175 Jul 21, 2024 02:00 PM [facility] CBC BLOOD Specimen Type: BLOOD Comment: Manual differential performed 07/20/2024 No clots Ordering Provider: JORJE DENSON Report Released Date/Time: Jul 21, 2024 12:54 PM Reporting Lab: [address] [address] Performing Lab: [address] [address] WBC 5.6 10*3/uL 3.6-11.2 RBC 2.87 10*6/uL [...] H 1.0-7.0 Jul 20, 2024 08:55 PM [facility] PT/INR NEW (STL-AR) PLASMA Specimen Type: PLAS MA No comment entered. Ordering Provider: AURA ZACARIAS Report Released Date/Time: Jul 18, 2024 01:30 PM Reporting Lab: [address] [address] Performing Lab: [address] [address] PROTIME 12.8 s H 9.4-12.5 INR VALUE 1.1 {INR} Jul 20, 2024 08:55 PM [facility] BASIC METABOLIC PANEL PLASMA Specimen Type: PL ASMA Comment: No hemolysis noted. Ordering Provider: AURA ZACARIAS Report Released Date/Time: Jul 18, 2024 01:30 PM Reporting Lab: [address] [address] Performing Lab: [address] [address] CREATININE 0.74 mg/dL 0.7-1.3 UREA NITROGEN 15.1 mg/dL 9.0-25.0 GLUCOSE 121 mg/dL H 72-99 SODIUM 130 meq/L L 136-145 POTASSIUM 3.7 meq/L 3.5-5 CHLORIDE 100 meq/L 98-107 CARBON DIOXIDE 20 meq/L L 22-31 CALCIUM 8.5 mg/dL 8.4-10.4 EGFR (CKD-EPI 2020) 99.3 >60 Jul 20, 2024 08:55 PM [facility] CBC BLOOD Specimen Type: BLOOD No comment entered. Ordering Provider: AURA ZACARIAS Report Released Date/Time: Jul 18, 2024 01:30 PM Reporting Lab: [address] [address] Performing Lab: [address] [address] WBC 5.1 10*3/uL 3.6-11.2 RBC 2.90 10*6/uL [...] 2.10-8.00 Jul 20, 2024 01:13 PM [facility] CBC BLOOD Specimen Type: BLOOD No comment entered. Ordering Provider: AURA ZACARIAS Report Released Date/Time: Jul 18, 2024 01:30 PM Reporting Lab: [address] [address] Performing Lab: [address] [address] WBC 5.6 10*3/uL 3.6-11.2 RBC 3.11 10*6/uL [...] 10*3/uL 2.10-8.00 Jul 19, 2024 06:42 AM [facility] PT/INR NEW (STL-MA) PLASMA Specimen Type: PLAS MA No comment entered. Ordering Provider: AURA ZACARIAS Report Released Date/Time: Jul 18, 2024 01:30 PM Reporting Lab: [address] [address] Performing Lab: [place] [address] [facility] [place] [address] PROTIME 16.4 s H 9.4-12.5 INR VALUE 1.5 {INR} Jul 19, 2024 06:42 AM [facility] BASIC METABOLIC PANEL PLASMA Specimen Type: PL ASMA Comment: No hemolysis noted. Ordering Provider: AURA ZACARIAS Report Released Date/Time: Jul 18, 2024 01:30 PM Reporting Lab: [address] [address] Performing Lab: [address] [address] CREATININE 0.94 mg/dL 0.7-1.3 UREA NITROGEN 23.8 mg/dL 9.0-25.0 GLUCOSE 87 mg/dL 72-99 SODIUM 129 meq/L L 136-145 POTASSIUM 3.4 meq/L L 3.5-5 CHLORIDE 102 meq/L 98-107 CARBON DIOXIDE 20 meq/L L 22-31 CALCIUM 8.1 mg/dL L 8.4-10.4 EGFR (CKD-EPI 2020) 88.9 >60 Jul 19, 2024 06:42 AM [facility] CBC BLOOD Specimen Type: BLOOD No comment entered. Ordering Provider: AURA ZACARIAS Report Released Date/Time: Jul 18, 2024 01:30 PM Reporting Lab: [address] [address] Performing Lab: [address] [address] WBC 5.1 10*3/uL 3.6-11.2 RBC 2.45 10*6/uL [...] 1.0-7.0 Jul 18, 2024 08:51 PM [facility] CBC BLOOD Specimen Type: BLOOD No comment entered. Ordering Provider: AURA ZACARIAS Report Released Date/Time: Jul 18, 2024 01:30 PM Reporting Lab: [address] [address] Performing Lab: [address] [address] WBC 6.2 10*3/uL 3.6-11.2 RBC 2.44 10*6/uL [...] 2.10-8.00 Jul 18, 2024 04:19 PM [facility] CBC BLOOD Specimen Type: BLOOD No comment entered. Ordering Provider: AURA ZACARIAS Report Released Date/Time: Jul 18, 2024 01:30 PM Reporting Lab: [address] [address] Performing Lab: [address] [address] WBC 6.1 10*3/uL 3.6-11.2 RBC 2.57 10*6/uL [...] 10*3/uL 2.10-8.00 Jul 18, 2024 06:32 AM [facility] LACTIC ACID (STL-PB) PLASMA Specimen Type: NEIL SMA No comment entered. Ordering Provider: CAMDEN PATTON Report Released Date/Time: Jul 17, 2024 07:38 PM Reporting Lab: [address] [address] Performing Lab: [address] [address] LACTIC ACID (STL-PB) 1.3 mmol/L 0.5-2.0 Jul 18, 2024 06:32 AM [facility] PT/INR NEW (STL-MA) PLASMA Specimen Type: PLAS MA No comment entered. Ordering Provider: CAMDEN PATTON Report Released Date/Time: Jul 17, 2024 07:38 PM Reporting Lab: [address] [address] Performing Lab: [address] [address] PROTIME 19.1 s H 9.4-12.5 INR VALUE 1.7 {INR} Jul 18, 2024 06:32 AM [facility] CBC BLOOD Specimen Type: BLOOD Comment: HGB Called to : Dr. Posadas MOD at: [id number] on: 07/18/24 by: [email or web address] Critical Verbal Readback Performed Ordering Provider: CAMDEN PATTON Report Released Date/Time: Jul 17, 2024 07:38 PM Reporting Lab: [address] [address] Performing Lab: [address] [address] WBC 7.0 10*3/uL 3.6-11.2 RBC 2.04 10*6/uL [...] 10*3/uL 2.10-8.00 Jul 18, 2024 06:32 AM [facility] VANCOMYCIN (STL) PLASMA Specimen Type: PLASM A No comment entered. Ordering Provider: CAMDEN PATTON Report Released Date/Time: Jul 17, 2024 07:38 PM Reporting Lab: [place] [address] Performing Lab: [address] [address] VANCOMYCIN (STL) 5.0 ug/mL L 10-15 Jul 18, 2024 06:32 AM [facility] MAGNESIUM PLASMA Specimen Type: PLASM A Comment: No hemolysis noted. Ordering Provider: CAMDEN PATTON Report Released Date/Time: Jul 17, 2024 07:38 PM Reporting Lab: [address] [address] Performing Lab: [address] [address] MAGNESIUM 1.5 mg/dL L 1.6-2.6 Jul 18, 2024 06:32 AM [facility] PHOSPHOROUS PLASMA Specimen Type: PLASM A Comment: No hemolysis noted. Ordering Provider: CAMDEN PATTON Report Released Date/Time: Jul 17, 2024 07:38 PM Reporting Lab: [address] [address] Performing Lab: [address] [address] PHOSPHOROUS 2.2 mg/dL L 2.3-4.7 Jul 18, 2024 06:32 AM [facility] COMPREHENSIVE METABOLIC PANEL PLASMA Specimen Type: PLASMA Comment: No hemolysis noted. Ordering Provider: CAMDEN PATTON Report Released Date/Time: Jul 17, 2024 07:38 PM Reporting Lab: [address] [address] Performing Lab: [address] [address] CREATININE 1.08 mg/dL 0.7-1.3 UREA NITROGEN 40.5 [...] 75.2 >60 Jul 18, 2024 12:05 AM [facility] HGB,HCT,PLT BLOOD Specimen Type: BLOOD No comment entered. Ordering Provider: ROSA VARGAS Report Released Date/Time: Jul 17, 2024 09:07 PM Reporting Lab: [address] [address] Performing Lab: [address] [address] HGB 7.3 g/dL L 13.1-16.8 HCT 21.0 L 38.2-48.4 PLT 64 10*3/uL L 150-400 Jul 17, 2024 07:45 PM [facility] MRSA SURVL NARES DNA NARES Specimen [...] Jul 17, 2024 07:38 PM Reporting Lab: [address] [place] [address] Performing Lab: [address] [address] MRSA SURVL NARES DNA Negative Negative Jul 17, 2024 07:36 PM [facility] GLUCOSE,BLOOD-poct (L) BLOOD Specimen Type: BLOOD Comment: Test Performed by: [id number] Meter #: [id number] Ordering Provider: CAMDEN PATTON Report Released Date/Time: Jul 17, 2024 07:48 PM Reporting Lab: [address] [address] Performing Lab: [address] [address] GLUCOSE,BLOOD-poct (L) 98 mg/dL 72-99 Jul 17, 2024 07:35 PM [facility] BLOOD GAS PANEL ABG ([facility]) VENOUS BLOOD Specimen Type : VENOUS BLOOD Comment: normalcy status - Below absolute low-off instrument scale Test Performed by: [id number] Meter #: [id number] Ordering Provider: CAMDEN PATTON Report Released Date/Time: Jul 17, 2024 07:37 PM Reporting Lab: [address] [address] Performing Lab: [address] [address] GEM PH 7.39 7.31-7.41 GEM PCO2 31 [...] TEMP 37.0 Jul 17, 2024 07:10 PM [facility] URINALYSIS W/ CX REFLEX (STL-PB) URINE Specim en Type: URINE No comment entered. Ordering Provider: CASEY BOONE Report Released Date/Time: Jul 17, 2024 04:24 PM Reporting Lab: [address] [address] Performing Lab: [place] [address] URINE COLOR Light-Yellow Yellow U.BILIRUBIN Negative mg/dL Negative U.PH 6.0 5.0-8.0 APPEARANCE Clear Clear U.NITRITE Negative mg/dL Negative URN.GLUCOSE Normal mg/dL Negative URN.PROTEIN Negative mg/dL URN.UROBILINOGEN Normal mg/dL Normal URN.BLOOD Negative mg/dL Negative-Trace URN.KETONES Trace mg/dL Negative-Trace URN.LEUK.EST. Negative mg/dL Negative-Tr april URN.SPECIFIC GRAVITY 1.029 Jul 17, 2024 06:25 PM [facility] RETICULOCYTE PANEL BLOOD Specimen Type: BLOOD No comment entered. Ordering Provider: CASEY BOONE Report Released Date/Time: Jul 17, 2024 06:13 PM Reporting Lab: [address] [address] Performing Lab: [address] [address] RETIC RATIO 7.35 H 0.50-2.30 IRF 39.7 H 2.3-13.4 RETICULOCYTE HEMOGLOBIN EQUIVALENT 35.8 pg 28.2-36.6 RETIC COUNT,ABS 0.129 10*6/uL H 0.022-0.10 1 Jul 17, 2024 06:25 PM [facility] HAPTOGLOBIN (STL) PLASMA Specimen Type: PLASM A No comment entered. Ordering Provider: CASEY BOONE Report Released Date/Time: Jul 17, 2024 06:13 PM Reporting Lab: [address] [address] Performing Lab: [address] [address] HAPTOGLOBIN (STL) 93 mg/dL 44-215 Jul 17, 2024 06:25 PM [facility] LDH PLASMA Specimen Type: PLASM A No comment entered. Ordering Provider: CASEY BOONE Report Released Date/Time: Jul 17, 2024 06:13 PM Reporting Lab: [address] [address] Performing Lab: [address] [address] LDH 305 U/L H 125-243 Jul 17, 2024 06:25 PM [facility] CBC BLOOD Specimen Type: BLOOD Comment: HGB Called to : Watson White at: 1934 on:[id number] by: [facility] Critical Verbal Readback Performed Ordering Provider: CAMDEN PATTON Report Released Date/Time: Jul 17, 2024 07:09 PM Reporting Lab: [address] [address] Performing Lab: [address] [address] WBC 27.6 10*3/uL H 3.6-11.2 RBC 1.76 [...] H 2.10-8.00 Jul 17, 2024 04:59 PM [facility] BLOOD GAS PANEL ABG ([facility]) VENOUS BLOOD Specimen Type : VENOUS BLOOD Comment: Test Performed by: [id number] Meter #: [id number] Ordering Provider: CASEY BOONE Report Released Date/Time: Jul 17, 2024 05:00 PM Reporting Lab: [address] [address] Performing Lab: [address] [address] GEM PH 7.39 7.31-7.41 GEM PCO2 33 [...] TEMP 37.0 Jul 17, 2024 04:25 PM [facility] MAGNESIUM PLASMA Specimen Type: PLASM A Comment: No hemolysis noted. Ordering Provider: CASEY BOONE Report Released Date/Time: Jul 17, 2024 04:24 PM Reporting Lab: [facility] [address] [facility] [address] Performing Lab: [facility] [address] [facility] [address] MAGNESIUM 1.4 mg/dL L 1.6-2.6 Jul 17, 2024 04:25 PM [facility] PT/INR NEW (STL-MA) PLASMA Specimen Type: PLAS MA No comment entered. Ordering Provider: CASEY BOONE Report Released Date/Time: Jul 17, 2024 04:24 PM Reporting Lab: [place] [address] [facility] [address] Performing Lab: [place] [address] [facility] [address] PROTIME 25.3 s H 9.4-12.5 INR VALUE 2.3 {INR} Jul 17, 2024 04:25 PM [facility] COVID-19 DIAGNOSTIC (FLU/RSV)(STL) NASOPHARYNX Spec imen [...] Jul 17, 2024 04:24 PM Reporting Lab: [place] [address] [facility] [address] Performing Lab: [place] [address] [facility] [address] INFLUENZA A Negative Negative INFLUENZA B Negative Negative COVID-19 (STL-PB) Not Detected Not Detec nate RSV (Cepheid) NEGATIVE Negative Jul 17, 2024 04:25 PM [facility] COMPREHENSIVE METABOLIC PANEL PLASMA Specimen Type: PLASMA Comment: No hemolysis noted. Ordering Provider: CASEY BOONE Report Released Date/Time: Jul 17, 2024 04:24 PM Reporting Lab: [address] [address] Performing Lab: [address] [address] CREATININE 1.25 mg/dL 0.7-1.3 UREA NITROGEN 47.0 [...] >60 Jul 17, 2024 04:25 PM [facility] CBC BLOOD Specimen Type: BLOOD No comment entered. Ordering Provider: CASEY BOONE Report Released Date/Time: Jul 17, 2024 04:24 PM Reporting Lab: [address] [address] Performing Lab: [address] [address] WBC 42.4 10*3/uL H 3.6-11.2 RBC 2.20 [...] L 0.77-4.50 NEUT#-MDIFF 40.58 10*3/uL H 2.10-8.00 Vital Signs: All taken on the encounter date This section contains inpatient and outpatient Vital Signs collected on the date of the Encounter. Date/Time Temperature Pulse Blood Pressure Respiratory Rate SP02 Pain Height Weight Body Mass Index Source Aug 14, 2024 11:01 PM 99 [facility] Aug 14, 2024 08:47 PM 4 [facility] Aug 14, 2024 08:15 PM 7 [facility] Aug 14, 2024 07:52 PM 98.2 75 126/83 22 99 8 [facility] Aug 14, 2024 07:01 PM 4 [facility] Social History: Smoking Status (Most current) and Tobacco Use (All prior to encounter date) This section includes the most current, and the historical, smoking and tobacco- related health factors from the [place] facility where the Encounter took place. Current Smoking Status This section includes the most current smoking, or tobacco-related health factor, from the [place] facility where the Encounter took place. Date/Time Current Smoking Status Heide jarrett Jul 17, 2024 04:02 PM [facility] ADMIT TOBACCO SCREEN NO [facility] Tobacco Use History This section includes a history of the smoking, or tobacco-related health factors, that were collected on or before the date of the Encounter. The data comes from the [place] facility where the Encounter took place. Date/Time Smoking Status/Tobacco Use Comment F acility Jan 20, 2023 03:49 PM VA-TOBACCO FORMER USER [facility] Jan 20, 2023 03:49 PM VA-TOBACCO QUIT 15 YRS OR MORE [facility] Feb 06, 2021 04:28 PM VA-TOBACCO FORMER USER [facility] Feb 06, 2021 04:28 PM VA-TOBACCO QUIT 15 YRS OR MORE [facility] Radiology Reports: +/- 30 days of [...] the Encounter. The data comes from all [place] treatment facilities. Date/Time Radiology Report Provider Source Aug 23, 2024 12:12 PM US BLOOD FLOW ABD/RENAL DOPPLER (COMPLETE): CARINEABRAHAM BELLR [phone] 1955 [facility] Date: AUG 23, 2024@12:12 Req Phys: GILSON OG Loc: [facility] INPT VISIT (Req'g L Img Loc: [facility] Service: [address] [address] (Case [id number] COMPLETE) US BLOOD FLOW ABD/RENAL DOPPLER ((US Detailed) CPT:45832 Reason for Study: dopplers Clinical History: Report Status: Verified Date Reported: AUG 23, 2024 Date Verified: AUG 23, 2024 Ship'S Surveyor E-Sig:/ES/PETROS MCCORD Report: Case [id number], [id number]. US ABDOMEN LTD, SINGLE ORG OR QUADRANT, [...] vasculature. Primary Interpreting Staff: PETROS MCCORD MD (Ship'S Surveyor) /PETROS SRIVASTAVA [facility] Aug 23, 2024 12:12 PM US ABDOMEN LTD, SINGLE ORG OR QUADRANT: ABRAHAM HAWK [id number] -1955 Ex Date: AUG 23, 2024@12:12 Req Phys: GILSON OG Pat Loc: [facility]GEN MED INPT VISIT (Req'g L Img Loc: [facility] Service: Unknown [address] [address] (Case [id number] COMPLETE) US ABDOMEN LTD, SINGLE ORG OR CARLITOS(US Detailed) CPT:83400 Reason for Study: Possible SBP, RUQUS with dopplers, please comment on ascites? Clinical History: Report Status: Verified Date Reported: AUG 23, 2024 Date Verified: AUG 23, 2024 Ship'S Surveyor E-Sig:/ES/PETROS MCCORD Report: Case [id number], [id number]. US ABDOMEN LTD, SINGLE ORG OR QUADRANT, [...] vasculature. Primary Interpreting Staff: PETROS MCCORD MD (Ship'S Surveyor) /PETROS SRIVASTAVA [facility] Aug 10, 2024 02:[address] ABD PEL W/CONT & 3D: ABRAHAM HAWK [id number] -1955 M Exm Date: AUG 10, 2024@14:33 Req Phys: YASIR SANZ MD Pat Loc: [facility]-EMERGENCY DEPT 2ND SHIFT (R Img Loc: [facility]-CT IMAGING [facility] Service: Unknown [facility], [facility] [address] [place] [address] (Case [id number] COMPLETE) CT ABDOMEN AND PELVIS W/CONTRAST (CT Detailed) CPT:21285 Contrast Media : Non-ionic Iodinated Reason for Study: Abdominal pain, vomiting Clinical History: Responsible Attending: Svetlana Attending Contact Number: [phone] Resident Contact Number: Abdominal pain, vomiting Allergies listed in CPRS chart: Patient has answered NKA Creatinine:CREATININE 0.82 mg/dL 08/10/2024 11:30 /eGFR: STL EGFR (within one year). CREATININE 0.82 mg/dL (08/10/24 11:30) Wt: 152.1 lb [68.99 kg] (08/10/2024 11:31) History of: Renal failure, chronic or acute renal disease: NO Report Status: Verified Date Reported: AUG 10, 2024 Date Verified: AUG 10, 2024 Ship'S Surveyor E-Sig:/ES/PETROS MCCORD Report: Case [id number]. CT ABDOMEN AND PELVIS W/CONTRAST. Gastrointestinal contrast: [...] inguinal hernias. Dictated by Kenneth Albright DO (market president). I, Petros Mccord, have reviewed the images and report and concur with these findings. Primary Interpreting Staff: PETROS MCCORD MD (Ship'S Surveyor) Primary Interpreting Resident: KENNETH ALBRIGHT, Outpatient Therapist /PETROS REESE [facility] Aug 01, 2024 10:20 AM PET/CT TUMOR IMAGING (SKULL TO MID-THIGH)-P: ABRAHAM HAWK [id number] [facility]-1955 Exm Date: AUG 01, 2024@10:20 Req Phys: TONY SIMMONS Loc: [facility]-ONCOLOGY IRIS (Req'g Loc) [facility] Loc: [facility]-PET-CT Service: [address] [address] (Case [id number] COMPLETE) PET/CT TUMOR SKULL BASE TO MID-T(NM Detailed) CPT:49574 CPT Modifiers : PS PET TUMOR SUBSQ TX STRATEGY Reason for Study: Nasopharyngeal cancer (Case [id number] COMPLETE) F-18 FLUORODEOXYGLUCOSE (FDG),PER(NM Detailed) CPT:A9552 Clinical History: Report Status: Verified Date Reported: AUG 01, 2024 Date Verified: AUG 01, 2024 Ship'S Surveyor E-Sig:/LOLY/NATASHA LEIJA Report: PATIENT NAME: ABRAHAM HAWK. CASE #: [id number], [id number]. PROCEDURE: PET/CT study Indication: Nasopharyngeal cancer HISTORY: [...] lytic osseous lesion is noted within the [id number]-jg-nfaz. Impression: 1. The previous sites of FDG [...] NEEDED Primary Interpreting Staff: NATASHA LEIJA MD (Ship'S Surveyor) /PFT NATASHA LEIJA [facility] Jul 27, 2024 03:41 PM CHEST PORTABLE: ABRAHAM HAWK [id number] -1955 M Exm Date: JUL 27, 2024@15:41 Req Phys: GENDI,WAHIED Pat Loc: -EMERGENCY DEPT 2ND SHIFT (R Img Loc: -MAIN RADIOLOGY SUITE Service: Unknown [facility], [address] [place] [address] (Case [id number] COMPLETE) CHEST PORTABLE (RAD Detailed) CPT:54343 Proc Modifiers : Portable Reason for Study: sob Clinical History: Report Status: Verified Date Reported: JUL 27, 2024 Date Verified: JUL 27, 2024 Ship'S Surveyor E-Sig:/ES/Sol Abraham MD Report: CASE [id number]. AP portable view chest. COMPARISON: Chest x-ray [...] advised. Report dictated by Krystian Sultana D.O. (market president) Sol Kilgore, have reviewed the images and report and concur with these findings. Primary Interpreting Staff: Sol Abraham MD, Radiologist (Ship'S Surveyor) Primary Interpreting Resident: Krystian Sultana D.O., Resident Physician /SOL DHALIWAL [facility] Jul 17, 2024 06:[address] ABD PEL W/CONT & 3D: ABRAHAM HAWK [id number] -1955 M Exm Date: JUL 17, 2024@18:18 Req Phys: MATTAR,CALJOSESITO Giraldo Loc: 4-C SICU-[facility]/07-17-2024@19:47 Img Loc: [facility]-CT IMAGING [facility] Service: Unknown [facility], [address] [place] [address] (Case [id number] COMPLETE) CT ABDOMEN AND PELVIS W/CONTRAST (CT Detailed) CPT:37584 Contrast Media : Non-ionic Iodinated Reason for Study: septic shock, abd pain Clinical History: Responsible Attending: Nils Attending Contact Number: [phone] Resident Contact Number: Septic shock, Patient with [...] 17, 2024 Date Verified: JUL 17, 2024 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 Chest 12 series and 1585 images were subsequently received by the [place] [facility] (NTP) for interpretation. Abdomen and pelvis 9 series and 1365 images were subsequently received by the [place] [facility] (NTP) for interpretation. Total [...] from 09/12/2023. READING PHYSICIAN: Guilherme Talbert M.D. [phone] 07/17/2024 17:44 PST [facility] Program [phone] (For Medical Practitioner Use Only) Attention Patients / Veterans: If you have questions or concerns about these test results, please contact your ordering provider or primary care team. Primary Interpreting Staff: RADIOLOGY,OUTSIDE SERVICE, Staff Physician / RADIOLOGY,OUTSIDE SERVICE [facility] Jul 17, 2024 06:[address] PE CHEST W/3D: ABRAHAM HAWK [id number] -1955 M Exm Date: JUL 17, 2024@18:17 Req Phys: NILSCASEY Giraldo Loc: 4-C SICU-[facility]/07-17-2024@19:47 Img Loc: [facility]-CT IMAGING [facility] Service: Unknown [facility], [facility] [address] [place] [address] (Case [id number] COMPLETE) CT THORAX W/CONT (PE) (CT Detailed) CPT:65028 Contrast Media : unspecified contrast media Reason for Study: RO PE Clinical History: Responsible Attending: Nils Attending Contact Number: [phone] Resident Contact Number: Patient with HCC and [...] 17, 2024 Date Verified: JUL 17, 2024 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 Chest 12 series and 1585 images were subsequently received by the [place] [facility] (NTP) for interpretation. Abdomen and pelvis 9 series and 1365 images were subsequently received by the [place] [facility] (NTP) for interpretation. Total [...] from 09/12/2023. READING PHYSICIAN: Guilherme Talbert M.D. -[phone] 07/17/2024 17:44 [facility] National [facility] Program [phone] (For Medical Practitioner Use Only) Attention Patients / Veterans: If you have questions or concerns about these test results, please contact your ordering provider or primary care team. Primary Interpreting Staff: RADIOLOGY,OUTSIDE SERVICE, Staff Physician / RADIOLOGY,OUTSIDE SERVICE [facility] Pathology Reports: +/- 30 days [...] the Encounter. The data comes from all [facility] facilities. Date/Time Pathology Report Provider Source Aug [...] Performing Laboratory: Surgical Pathology Report [facility] CLIA# [id number] [address] [facility] [address] [place] [address] $FTR - - - - - - [...] - - ABRAHAM HAWK STANDARD FORM 515 ID:[id number] SEX:M :1955 AGE: 68 LOC:APFEE PCP: Deirdre Wild /loly/ CRISTIANA TEMPLETON Pathologist Signed: 08/16/2024 09:[address] [facility] Aug 11, 2024 06:00 AM LR MICROBIOLOGY RE PORT: Accession [UID]: [id number] [[id number]] Received: Aug 11, 2024@06:19 Collection sample: B D BLD. BOTTLE Collection date: Aug 11, 2024 06:00 Site/Specimen: BLOOD Provider: GILSON OG Test(s) ordered: BLOOD CULT (SET 1)............ completed: Aug 17, 2024 10:06 * BACTERIOLOGY FINAL REPORT => Aug 17, 2024 10:22 [facility] CODE: [id number] Bacteriology Remark(s): 2. KAA Culture shows NO GROWTH IN 6 DAYS =--=--=--=--=--=--=--=--=-- =--=--=--=--=--=--=--=--=-- =--=--=--=--=--=--=--=-- Performing Laboratory: Bacteriology Report Performed By: [id number] [place] [id number] [facility] Jul 17, 2024 05:10 PM LR MICROBIOLOGY RE PORT: Accession [UID]: [id number] [[id number]] Received: Jul 17, 2024@17:30 Collection sample: B D BLD. BOTTLE (SET 2)Collection date: Jul 17, 2024 17:10 Site/Specimen: BLOOD Provider: CASEY BOONE Test(s) ordered: BLOOD CULT (SET 2)............ completed: Jul 23, 2024 14:26 * BACTERIOLOGY FINAL REPORT => Jul 23, 2024 14:28 TECH CODE: [id number] Bacteriology Remark(s): CULTURE IS NEGATIVE TO DATE, ALL POSITIVES ARE ROUTINELY CALLED. KI Culture shows NO GROWTH IN 6 DAYS. 07/23/24 KI =--=--=--=--=--=--=--=--=-- =--=--=--=--=--=--=--=--=-- =--=--=--=--=--=--=--=-- Performing Laboratory: Bacteriology Report Performed By: [address] [id number] [address] [place] [id number] [facility] Jul 17, 2024 05:10 PM LR MICROBIOLOGY RE PORT: Accession [UID]: [id number] [[id number]] Received: Jul 17, 2024@17:30 Collection sample: B D BLD. BOTTLE Collection date: Jul 17, 2024 17:10 Site/Specimen: BLOOD Provider: CASEY BOONE Test(s) ordered: BLOOD CULT (SET 1)............ completed: Jul 23, 2024 14:26 * BACTERIOLOGY FINAL REPORT => Jul 23, 2024 14:28 TECH CODE: [id number] Bacteriology Remark(s): CULTURE IS NEGATIVE TO DATE, ALL POSITIVES ARE ROUTINELY CALLED. KI Culture shows NO GROWTH IN 6 DAYS. 07/23/24 KI =--=--=--=--=--=--=--=--=-- =--=--=--=--=--=--=--=--=-- =--=--=--=--=--=--=--=-- Performing Laboratory: Bacteriology Report Performed By: [facility], [facility] CLIA# [id number] [address] [place] [id number] [facility] Encounter Notes: All associated encounter notes This section contains the clinical notes associated to the Encounter. Date/Time Encounter Note(s) Provider Source Aug 21, 2024 03:18 PM GASTROENTEROLOGY LETTERS: LOCAL TITLE: GI BIOPSY RESULTS LETTER STANDARD TITLE: GASTROENTEROLOGY LETTERS DATE OF NOTE: AUG 21, 2024@15:18 ENTRY DATE: AUG 21, 2024@15:18:43 AUTHOR: VIRGINIA DAVIS COSIGNER: URGENCY: STATUS: COMPLETED [facility] [address] [place] [address] AUG 21, 2024 ABRAHAM HAWK [address] [place] [address] Dear Abraham Hawk, Thank you for completing your upper endoscopy recently at [facility]. I am writing to give you the pathology results for the tissue removed during the procedure. Inflammation was found on the biopsies of the small intestines and felt to be related to the chemotherapy/immunotherapy medications. If you want to see the full pathology report, you may do this by logging on the [employer] website at www.emaze.[place].gov. If you have not already done so, I recommend you visit this web site to set up your account. You will then be able to review this result and all future results. Please call [phone] if you have any questions about this letter. Sincerely, VIRGINIA DAVIS Gastroenterology VIRGINIA DAVIS [facility] Aug 14, 2024 11:10 AM PREPROCEDURE NOTE: LOCAL TITLE: PHYSICIAN PRE-PROCEDURE ASSESSMENT ST STANDARD TITLE: PREPROCEDURE NOTE DATE OF NOTE: AUG 14, 2024@11:10 ENTRY DATE: AUG 14, 2024@11:11:34 AUTHOR: JAM SHEFFIELD EXP COSIGNER: VIRGINIA DAVIS URGENCY: STATUS: COMPLETED Airway: No significant abnormality Mallampati Score: 2 Neck Extension: Not Limited Teeth: Edentulous Cardiac: No significant abnormality Pulmonary: No significant abnormality Gastrointestinal: No significant abnormality Neurological: No significant abnormality ASA Score: 3 Abdominal and Pelvic Surgical History: Sedation/Anesthesia Plan: Anesthesia consult History of previous adverse reaction to sedation: No Tobacco use: No Alcohol use: No Recreational drug use: No Last oral intake:> 8 hrs Time spent:0-5 minutes /loly/ Jam Sheffield MD GI Fellow Signed: 08/15/2024 09:00 /loly/ VIRGINIA DAVIS Gastroenterology Cosigned: 08/15/2024 09:08 JAM SHEFFIELD [facility]
--- OUTSIDE RECORDS SUMMARY | 2024-10-08 17:12 | XMS_ITS | Encounter Summary ---
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 Date/Time Encounter Type Encounter Description Reason Provider Source Jul 27, 2024 03:14 PM EMERGENCY DEPT VISIT [facility] EMERGENCY DEPT ICD-10-CM K74.60 Unspecified cirrhosis of liver GENELIZABETH CASSIDY Abdiel Encounter Template Text not used by [place] Assessments - Encounter Diagnoses This section includes the primary and secondary diagnoses documented for the Encounter. Date/Time Primary/Secondary Diagnosis Diagnosis Name Provider Source Jul 27, 2024 05:45 PM PRIMARY Unspecified cirrhosis of liver GEN,[facility] Jul 27, 2024 05:45 PM SECONDARY Edema, unspecified GENDI,[facility] Plan of Treatment: Future Appointments (+ 6 months) and Future Tests (+/- 45 days) The Plan of Treatment section includes future care activities for the patient from [facility] [place] [facility] This section includes future appointments and future orders which are active, pending or scheduled. Future Appointments This section includes appointments that were scheduled to occur 6 months from the date of the Encounter, up to a maximum of 20 appointments. The data comes from all [place] treatment facilities. Appointment Date/Time Appointment Type Appointme nt Facility Name Aug 01, 2024 10:15 AM AMBULATORY - NONE [facility] Aug 02, 2024 11:30 AM AMBULATORY - MEDICINE [facility] Aug 02, 2024 11:31 AM AMBULATORY - MEDICINE [facility] Aug 10, 2024 11:00 AM AMBULATORY - MEDICINE [facility] Aug 10, 2024 11:31 AM AMBULATORY - MEDICINE [facility] Aug 10, 2024 11:59 AM AMBULATORY - MEDICINE [facility] Aug 16, 2024 10:00 AM AMBULATORY - MEDICINE [facility] Aug 17, 2024 08:30 AM AMBULATORY - MEDICINE [facility] Aug 17, 2024 09:00 AM AMBULATORY - MEDICINE [facility] Aug 17, 2024 09:30 AM AMBULATORY - MEDICINE [facility] Aug 23, 2024 12:00 PM AMBULATORY - NONE [facility] Aug 31, 2024 02:00 PM AMBULATORY - MEDICINE [facility] Sep 07, 2024 11:00 AM AMBULATORY - MEDICINE [facility] Sep 07, 2024 01:00 PM AMBULATORY - MEDICINE [facility] Oct 15, 2024 03:00 PM AMBULATORY - SURGERY [facility] Oct 19, 2024 02:00 PM AMBULATORY - NONE [facility] Active, Pending, and Scheduled Orders This section includes a listing of several types of active, pending, and scheduled orders, including clinic medications orders, diagnostic test orders, procedure orders and consult orders; where the start date of the order is 45 days before the date of the Encounter or 45 days after the date of theEncounter. The data comes from all [facility] facilities. Test Date/Time Test Type Test Details Facility Name Jul 17, 2024 12:00 AM Laboratory - Blood Bank Order RED BLOOD CELLS - LAB VBECS - NO SPECIMEN REQUIRED [facility] Jul 17, 2024 12:00 AM Laboratory - Blood Bank Order FRESH FROZEN PLASMA - LAB VBECS - NO SPECIMEN REQUIRED [facility] Jul 17, 2024 06:13 PM Laboratory - Blood Bank Order DIRECT ANTIGLOBULIN TEST - LAB BLOOD STAT [facility] Jul 17, 2024 06:13 PM Laboratory - Blood Bank Order TYPE & SCREEN - LAB BLOOD [facility] Jul 18, 2024 12:00 AM Laboratory - Blood Bank Order PLATELETS - LAB VBECS - NO SPECIMEN REQUIRED [facility] Aug 10, 2024 12:00 AM Laboratory - Blood Bank Order RED BLOOD CELLS - LAB VBECS - NO SPECIMEN REQUIRED JOANN [facility] Aug 10, 2024 02:00 PM Laboratory - Blood Bank Order TYPE & SCREEN - LAB BLOOD [facility] Aug 10, 2024 05:43 PM Laboratory - Chemistry Order LIPASE GREEN LI/HEP BLD/PLAS PLASMA STAT I ONCE [facility] Aug 10, 2024 05:44 PM Laboratory - Microbiology Order BLOOD CULT (SET 2) B D BLD. BOTTLE (SET 2) BLOOD JOANN I NOW [facility] Aug 11, 2024 02:00 AM Laboratory - Chemistry Order CBC BLOOD WC [facility] Aug 14, 2024 02:00 AM Laboratory - Chemistry Order CBC BLOOD WC [facility] Aug 15, 2024 02:00 AM Laboratory - Chemistry Order CBC BLOOD WC [facility] Aug 16, 2024 12:00 AM Laboratory - Chemistry Order CBC BLOOD SP [facility] Aug 16, 2024 08:00 PM Laboratory - Chemistry Order CBC BLOOD LC [facility] Aug 17, 2024 08:00 PM Laboratory - Chemistry Order CBC BLOOD LC [facility] Lab Results: +/- 30 days [...] Type Comment Aug 17, 2024 03:34 PM [facility] TSH W/ REFLEX FT4 (STL) PLASMA Specimen Type: PLASMA No comment entered. Ordering Provider: TONY SIMMONS Report Released Date/Time: Aug 10, 2024 12:01 PM Reporting Lab: [facility] [address] [facility] [address] Performing Lab: [address] [address] TSH 4.570 u[IU]/mL 0.47-5 Aug 17, 2024 03:34 PM [facility] COMPREHENSIVE METABOLIC PANEL PLASMA Specimen Type: PLASMA Comment: No hemolysis noted. Ordering Provider: TONY SIMMONS Report Released Date/Time: Aug 10, 2024 12:01 PM Reporting Lab: [place] [id number] [facility] [address] Performing Lab: [address] [address] CREATININE 0.85 mg/dL 0.7-1.3 UREA NITROGEN 11.5 [...] 95.2 >60 Aug 17, 2024 03:34 PM [facility] CBC BLOOD Specimen Type: BLOOD Comment: No Clots Ordering Provider: TONY SIMMONS Report Released Date/Time: Aug 10, 2024 12:01 PM Reporting Lab: [address] [address] Performing Lab: [address] [address] WBC 5.0 10*3/uL 3.6-11.2 RBC 2.83 10*6/uL [...] 4.9 1.0-7.0 Aug 15, 2024 07:20 AM [facility] CBC BLOOD Specimen Type: BLOOD Comment: No clots detected in specimen. Ordering Provider: CASH CLOUD Report Released Date/Time: Aug 12, 2024 01:47 PM Reporting Lab: [facility] [address] [facility] [address] Performing Lab: [address] [address] WBC 4.9 10*3/uL 3.6-11.2 RBC 2.93 10*6/uL [...] 2.10-8.00 Aug 15, 2024 04:54 AM [facility] GLUCOSE,BLOOD-poct (STL) BLOOD Specimen Type: BLOOD Comment: Test Performed by: [id number] Meter #: [id number] Ordering Provider: DEIRDRE WILD Report Released Date/Time: Aug 15, 2024 05:21 AM Reporting Lab: [address] [address] Performing Lab: [address] [address] GLUCOSE,BLOOD-poct (STL) 112 mg/dL H 72-99 Aug 14, 2024 08:30 PM [facility] CRP PLASMA Specimen Type: PLASM A No comment entered. Ordering Provider: CASH CLOUD Report Released Date/Time: Aug 12, 2024 10:14 AM Reporting Lab: [address] [address] Performing Lab: [address] [address] CRP 0.7 mg/dL H 0-0.5 Aug 14, 2024 08:30 PM [facility] CBC BLOOD Specimen Type: BLOOD No comment entered. Ordering Provider: GILSON OG Report Released Date/Time: Aug 10, 2024 04:01 PM Reporting Lab: [place] [address] [facility] [address] Performing Lab: [address] [address] WBC 4.6 10*3/uL 3.6-11.2 RBC 2.83 10*6/uL [...] 2.10-8.00 Aug 14, 2024 07:54 PM [facility] GLUCOSE,BLOOD-poct (STL) BLOOD Specimen Type: BLOOD Comment: Test Performed by: [id number] Meter #: [id number] Ordering Provider: DEIRDRE WILD Report Released Date/Time: Aug 14, 2024 08:15 PM Reporting Lab: [address] [address] Performing Lab: [address] [address] GLUCOSE,BLOOD-poct (STL) 112 mg/dL H 72-99 Aug 14, 2024 04:10 PM [facility] GLUCOSE,BLOOD-poct (STL) BLOOD Specimen Type: BLOOD Comment: Test Performed by: [id number] Meter #: [id number] Ordering Provider: DEIRDRE WILD Report Released Date/Time: Aug 14, 2024 04:43 PM Reporting Lab: [address] [address] Performing Lab: [address] [address] GLUCOSE,BLOOD-poct (STL) 115 mg/dL H 72-99 Aug 14, 2024 02:05 PM [facility] COMPREHENSIVE METABOLIC PANEL PLASMA Specimen Type: PLASMA Comment: No hemolysis noted. Ordering Provider: GILSON OG Report Released Date/Time: Aug 14, 2024 06:56 AM Reporting Lab: [address] [address] Performing Lab: [address] [address] CREATININE 0.75 mg/dL 0.7-1.3 UREA NITROGEN 9.3 [...] 98.9 >60 Aug 14, 2024 02:05 PM [facility] CBC BLOOD Specimen Type: BLOOD Comment: No platelet clots or clumping detected. Ordering Provider: GILSON OG Report Released Date/Time: Aug 10, 2024 04:01 PM Reporting Lab: [place] [id number] [facility] [address] Performing Lab: [address] [address] WBC 4.6 10*3/uL 3.6-11.2 RBC 3.06 10*6/uL [...] 10*3/uL 2.10-8.00 Aug 14, 2024 10:12 AM [facility] GLUCOSE,BLOOD-poct (L) BLOOD Specimen Type: BLOOD Comment: Test Performed by: [id number] Meter #: [id number] Ordering Provider: DEIRDRE WILD Report Released Date/Time: Aug 14, 2024 10:13 AM Reporting Lab: [place] [id number] [facility] [address] Performing Lab: [place] [address] [facility] [address] GLUCOSE,BLOOD-poct (L) 112 mg/dL H 72-99 Aug 14, 2024 09:20 AM [facility] PT/INR NEW (L-MA) PLASMA Specimen Type: PLAS MA No comment entered. Ordering Provider: GILSON OG Report Released Date/Time: Aug 14, 2024 09:06 AM Reporting Lab: [facility] [address] [facility] [address] Performing Lab: [facility] [address] [facility] [address] PROTIME 13.6 s H 9.4-12.5 INR VALUE 1.2 {INR} Aug 14, 2024 06:51 AM [facility] CBC BLOOD Specimen Type: BLOOD No comment entered. Ordering Provider: CASH CLOUD Report Released Date/Time: Aug 12, 2024 01:47 PM Reporting Lab: [address] [address] Performing Lab: [address] [address] WBC 3.8 10*3/uL 3.6-11.2 RBC 2.56 10*6/uL [...] 2.10-8.00 Aug 14, 2024 06:03 AM [facility] GLUCOSE,BLOOD-poct (STL) BLOOD Specimen Type: BLOOD Comment: Test Performed by: [id number] Meter #: [id number] Ordering Provider: DEIRDRE WILD Report Released Date/Time: Aug 14, 2024 06:07 AM Reporting Lab: [address] [address] Performing Lab: [address] [address] GLUCOSE,BLOOD-poct (STL) 114 mg/dL H 72-99 Aug 13, 2024 09:11 PM [facility] GLUCOSE,BLOOD-poct (STL) BLOOD Specimen Type: BLOOD Comment: Test Performed by: [id number] Meter #: [id number] Ordering Provider: DEIRDRE WILD Report Released Date/Time: Aug 13, 2024 09:40 PM Reporting Lab: [address] [address] Performing Lab: [address] [address] GLUCOSE,BLOOD-poct (STL) 160 mg/dL H 72-99 Aug 13, 2024 07:10 PM [facility] COMPREHENSIVE METABOLIC PANEL PLASMA Specimen Type: PLASMA Comment: No hemolysis noted. Ordering Provider: GILSON OG Report Released Date/Time: Aug 14, 2024 07:03 AM Reporting Lab: [address] [address] Performing Lab: [address] [address] CREATININE 0.75 mg/dL 0.7-1.3 UREA NITROGEN 10.3 [...] 98.9 >60 Aug 13, 2024 07:10 PM [facility] CRP PLASMA Specimen Type: PLASM A No comment entered. Ordering Provider: CASH CLOUD Report Released Date/Time: Aug 12, 2024 10:14 AM Reporting Lab: [address] [address] Performing Lab: [facility] [address] [facility] [address] CRP 0.7 mg/dL H 0-0.5 Aug 13, 2024 07:10 PM [facility] CBC BLOOD Specimen Type: BLOOD No comment entered. Ordering Provider: GILSON OG Report Released Date/Time: Aug 10, 2024 04:01 PM Reporting Lab: [place] [address] [facility] [address] Performing Lab: [address] [address] WBC 5.3 10*3/uL 3.6-11.2 RBC 2.67 10*6/uL [...] 2.10-8.00 Aug 13, 2024 04:35 PM [facility] GLUCOSE,BLOOD-poct (STL) BLOOD Specimen Type: BLOOD Comment: Test Performed by: [id number] Meter #: [id number] Ordering Provider: DEIRDRE WILD Report Released Date/Time: Aug 13, 2024 05:18 PM Reporting Lab: [facility] [address] [facility] [address] Performing Lab: [address] [address] GLUCOSE,BLOOD-poct (STL) 113 mg/dL H 72-99 Aug 13, 2024 02:36 PM [facility] CBC BLOOD Specimen Type: BLOOD No comment entered. Ordering Provider: GILSON OG Report Released Date/Time: Aug 10, 2024 04:01 PM Reporting Lab: [address] [address] Performing Lab: [address] [address] WBC 5.8 10*3/uL 3.6-11.2 RBC 2.77 10*6/uL [...] 2.10-8.00 Aug 13, 2024 11:37 AM [facility] GLUCOSE,BLOOD-poct (STL) BLOOD Specimen Type: BLOOD Comment: Test Performed by: [id number] Meter #: [id number] Ordering Provider: DEIRDRE WILD Report Released Date/Time: Aug 13, 2024 11:38 AM Reporting Lab: [place] [address] [facility] [address] Performing Lab: [place] [address] [facility] [address] GLUCOSE,BLOOD-poct (STL) 131 mg/dL H 72-99 Aug 13, 2024 08:06 AM [facility] CBC BLOOD Specimen Type: BLOOD Comment: no clot Ordering Provider: CASH CLOUD Report Released Date/Time: Aug 12, 2024 01:47 PM Reporting Lab: [place] [address] [facility] [address] Performing Lab: [place] [address] [facility] [address] WBC 3.0 10*3/uL L 3.6-11.2 RBC 2.61 [...] 2.10-8.00 Aug 13, 2024 04:45 AM [facility] GLUCOSE,BLOOD-poct (STL) BLOOD Specimen Type: BLOOD Comment: Test Performed by: [id number] Meter #: [id number] Ordering Provider: DEIRDRE WILD Report Released Date/Time: Aug 13, 2024 06:18 AM Reporting Lab: [address] [address] Performing Lab: [address] [address] GLUCOSE,BLOOD-poct (STL) 139 mg/dL H 72-99 Aug 12, 2024 10:10 PM [facility] GLUCOSE,BLOOD-poct (STL) BLOOD Specimen Type: BLOOD Comment: Test Performed by: [id number] Meter #: [id number] Ordering Provider: DEIRDRE WILD Report Released Date/Time: Aug 12, 2024 10:50 PM Reporting Lab: [address] [address] Performing Lab: [address] [address] GLUCOSE,BLOOD-poct (STL) 105 mg/dL H 72-99 Aug 12, 2024 08:48 PM [facility] CBC BLOOD Specimen Type: BLOOD Comment: SEE PREVIOUS DIFFERENTIAL ON 08/12/24 @ 1807 Ordering Provider: GILSON OG Report Released Date/Time: Aug 10, 2024 04:01 PM Reporting Lab: [address] [address] Performing Lab: [address] [address] WBC 5.0 10*3/uL 3.6-11.2 RBC 2.78 10*6/uL [...] 6.5 1.0-7.0 Aug 12, 2024 08:48 PM [facility] CRP PLASMA Specimen Type: PLASM A No comment entered. Ordering Provider: CASH CLOUD Report Released Date/Time: Aug 12, 2024 10:14 AM Reporting Lab: [address] [address] Performing Lab: [address] [address] CRP 0.6 mg/dL H 0-0.5 Aug 12, 2024 04:51 PM [facility] GLUCOSE,BLOOD-poct (STL) BLOOD Specimen Type: BLOOD Comment: Test Performed by: [id number] Meter #: [id number] Ordering Provider: DEIRDRE WILD Report Released Date/Time: Aug 12, 2024 05:07 PM Reporting Lab: [address] [address] Performing Lab: [address] [address] GLUCOSE,BLOOD-poct (STL) 135 mg/dL H 72-99 Aug 12, 2024 02:33 PM [facility] CBC BLOOD Specimen Type: BLOOD No comment entered. Ordering Provider: GILSON OG Report Released Date/Time: Aug 10, 2024 04:01 PM Reporting Lab: [address] [address] Performing Lab: [address] [address] WBC 4.0 10*3/uL 3.6-11.2 RBC 2.56 10*6/uL [...] 2.10-8.00 Aug 12, 2024 11:51 AM [facility] GLUCOSE,BLOOD-poct (STL) BLOOD Specimen Type: BLOOD Comment: Test Performed by: [id number] Meter #: [id number] Ordering Provider: DEIRDRE WILD Report Released Date/Time: Aug 12, 2024 12:26 PM Reporting Lab: [address] [address] Performing Lab: [address] [address] GLUCOSE,BLOOD-poct (STL) 139 mg/dL H 72-99 Aug 12, 2024 07:35 AM [facility] CBC BLOOD Specimen Type: BLOOD Comment: prev diff 08/11/24. Ordering Provider: GILSON OG Report Released Date/Time: Aug 10, 2024 04:01 PM Reporting Lab: [address] [address] Performing Lab: [address] [address] WBC 3.0 10*3/uL L 3.6-11.2 RBC 2.54 [...] 20 Aug 12, 2024 05:49 AM [facility] GLUCOSE,BLOOD-poct (STL) BLOOD Specimen Type: BLOOD Comment: Test Performed by: [id number] Meter #: [id number] Ordering Provider: DEIRDRE WILD Report Released Date/Time: Aug 12, 2024 05:50 AM Reporting Lab: [place] [address] [facility] [address] Performing Lab: [address] [address] GLUCOSE,BLOOD-poct (STL) 112 mg/dL H 72-99 Aug 12, 2024 01:45 AM [facility] CBC BLOOD Specimen Type: BLOOD Comment: SEE PREVIOUS DIFFERENTIAL ON 08/12/24 @ 0239 [facility] Ordering Provider: GILSON OG Report Released Date/Time: Aug 10, 2024 04:01 PM Reporting Lab: [address] [address] Performing Lab: [address] [address] WBC 2.6 10*3/uL L 3.6-11.2 RBC 2.42 [...] 6.4 1.0-7.0 Aug 11, 2024 09:25 PM [facility] CBC BLOOD Specimen Type: BLOOD No comment entered. Ordering Provider: GILSON OG Report Released Date/Time: Aug 10, 2024 04:01 PM Reporting Lab: [address] [address] Performing Lab: [address] [place] [address] WBC 3.6 10*3/uL 3.6-11.2 RBC 2.54 10*6/uL [...] 2.10-8.00 Aug 11, 2024 09:17 PM [facility] GLUCOSE,BLOOD-poct (STL) BLOOD Specimen Type: BLOOD Comment: Test Performed by: [id number] Meter #: [id number] Ordering Provider: DEIRDRE WILD Report Released Date/Time: Aug 11, 2024 09:21 PM Reporting Lab: [address] [address] Performing Lab: [address] [address] GLUCOSE,BLOOD-poct (STL) 167 mg/dL H 72-99 Aug 11, 2024 04:42 PM [facility] CBC BLOOD Specimen Type: BLOOD No comment entered. Ordering Provider: YVONNE HARRISON Report Released Date/Time: Aug 11, 2024 04:41 PM Reporting Lab: [address] [address] Performing Lab: [address] [address] WBC 4.0 10*3/uL 3.6-11.2 RBC 2.74 10*6/uL [...] 2.10-8.00 Aug 11, 2024 04:30 PM [facility] GLUCOSE,BLOOD-poct (STL) BLOOD Specimen Type: BLOOD Comment: Test Performed by: [id number] Meter #: [id number] Ordering Provider: DEIRDRE WIDL Report Released Date/Time: Aug 11, 2024 06:06 PM Reporting Lab: [address] [address] Performing Lab: [address] [address] GLUCOSE,BLOOD-poct (STL) 95 mg/dL 72-99 Aug 11, 2024 11:08 AM [facility] GLUCOSE,BLOOD-poct (STL) BLOOD Specimen Type: BLOOD Comment: Test Performed by: [id number] Meter #: [id number] Ordering Provider: DEIRDRE WILD Report Released Date/Time: Aug 11, 2024 11:10 AM Reporting Lab: [place] [address] [facility] [address] Performing Lab: [address] [address] GLUCOSE,BLOOD-poct (STL) 117 mg/dL H 72-99 Aug 11, 2024 06:00 AM [facility] IRON/TIBC PROFILE SERUM Specimen Type: SERUM No comment entered. Ordering Provider: GILSON OG Report Released Date/Time: Aug 10, 2024 04:02 PM Reporting Lab: [address] [address] Performing Lab: [address] [address] TIBC 263 ug/dL 250-450 TRANSFERRIN 210 mg/dL 163-344 IRON SATURATION 8 L 20-50 IRON 21 ug/dL L 65-175 Aug 11, 2024 06:00 AM [facility] PT/INR NEW (STL-MA) PLASMA Specimen Type: PLAS MA No comment entered. Ordering Provider: GILSON OG Report Released Date/Time: Aug 10, 2024 06:20 PM Reporting Lab: [address] [address] Performing Lab: [address] [address] PROTIME 15.5 s H 9.4-12.5 INR VALUE 1.4 {INR} Aug 11, 2024 06:00 AM [facility] APTT PLASMA Specimen Type: PLASM A No comment entered. Ordering Provider: GILSON OG Report Released Date/Time: Aug 10, 2024 06:20 PM Reporting Lab: [address] [address] Performing Lab: [address] [address] APTT 25.5 s L 26.7-39.9 Aug 11, 2024 06:00 AM [facility] HEPATIC FUNTION PANEL (STL) PLASMA Specimen Ty pe: PLASMA No comment entered. Ordering Provider: GILSON OG Report Released Date/Time: Aug 10, 2024 04:02 PM Reporting Lab: [place] [phone] Performing Lab: [place] [phone] PROTEIN 5.4 g/dL L 6-8.6 ALBUMIN 2.6 g/dL L 3.4-5 TOTAL BILIRUBIN 0.8 mg/dL 0.2-1.2 ALKALINE PHOSPHATASE 72 U/L 40-150 AST/SGOT 28 U/L 5-34 ALT/SGPT 10 U/L 8-40 CONJ. BILIRUBIN 0.4 mg/dL 0-0.5 Aug 11, 2024 06:00 AM [facility] CBC BLOOD Specimen Type: BLOOD No comment entered. Ordering Provider: GILSON OG Report Released Date/Time: Aug 10, 2024 04:01 PM Reporting Lab: [place] [address] Performing Lab: [place] [phone] WBC 2.4 10*3/uL L 3.6-11.2 RBC 2.42 [...] 2.10-8.00 Aug 10, 2024 09:00 PM [facility] BASIC METABOLIC PANEL PLASMA Specimen Type: PL ASMA Comment: No hemolysis noted. Ordering Provider: GILSON OG Report Released Date/Time: Aug 10, 2024 04:01 PM Reporting Lab: [address] [address] Performing Lab: [address] [address] CREATININE 0.84 mg/dL 0.7-1.3 UREA NITROGEN 16.8 mg/dL 9.0-25.0 GLUCOSE 104 mg/dL H 72-99 SODIUM 133 meq/L L 136-145 POTASSIUM 3.5 meq/L 3.5-5 CHLORIDE 103 meq/L 98-107 CARBON DIOXIDE 23 meq/L 22-31 CALCIUM 8.4 mg/dL 8.4-10.4 EGFR (CKD-EPI 2020) 95.6 >60 Aug 10, 2024 09:00 PM [facility] CBC BLOOD Specimen Type: BLOOD No comment entered. Ordering Provider: GILSON OG Report Released Date/Time: Aug 10, 2024 04:01 PM Reporting Lab: [address] [address] Performing Lab: [address] [address] WBC 4.3 10*3/uL 3.6-11.2 RBC 2.22 10*6/uL [...] 2.10-8.00 Aug 10, 2024 06:30 PM [facility] MRSA SURVL NARES DNA NARES Specimen Type: [...] information for final interpretation. Ordering Provider: GILSON GO Report Released Date/Time: Aug 10, 2024 04:01 PM Reporting Lab: [facility] [address] [facility] [address] Performing Lab: [place] [id number] [facility] [address] MRSA SURVL NARES DNA Negative Negative Aug 10, 2024 06:02 PM [facility] GLUCOSE,BLOOD-poct (STL) BLOOD Specimen Type: BLOOD Comment: Test Performed by: [id number] Meter #: [id number] Ordering Provider: YASIR SANZ MD Report Released Date/Time: Aug 10, 2024 06:04 PM Reporting Lab: [address] [address] Performing Lab: [address] [address] GLUCOSE,BLOOD-poct (STL) 94 mg/dL 72-99 Aug 10, 2024 02:12 PM [facility] PT/INR NEW (STL-MA) PLASMA Specimen Type: PLAS MA No comment entered. Ordering Provider: YASIR SANZ MD Report Released Date/Time: Aug 10, 2024 02:00 PM Reporting Lab: [address] [address] Performing Lab: [address] [address] PROTIME 13.8 s H 9.4-12.5 INR VALUE 1.2 {INR} Aug 10, 2024 02:12 PM [facility] APTT PLASMA Specimen Type: PLASM A No comment entered. Ordering Provider: YASIR SANZ MD Report Released Date/Time: Aug 10, 2024 02:00 PM Reporting Lab: [address] [address] Performing Lab: [address] [address] APTT 20.1 s L 26.7-39.9 Aug 10, 2024 11:30 AM [facility] TSH W/ REFLEX FT4 (STL) PLASMA Specimen Type: PLASMA No comment entered. Ordering Provider: TONY SIMMONS Report Released Date/Time: Aug 02, 2024 12:33 PM Reporting Lab: [address] [address] Performing Lab: [address] [address] TSH 3.991 u[IU]/mL 0.47-5 Aug 10, 2024 11:30 AM [facility] CBC BLOOD Specimen Type: BLOOD No comment entered. Ordering Provider: TONY SIMMONS Report Released Date/Time: Aug 02, 2024 12:33 PM Reporting Lab: [address] [address] Performing Lab: [address] [address] WBC 7.4 10*3/uL 3.6-11.2 RBC 2.81 10*6/uL [...] BASOPHILS, ABSOLUTE 0.04 10*3/uL 0.00-0. 20 Aug 10, 2024 11:30 AM [facility] COMPREHENSIVE METABOLIC PANEL PLASMA Specimen Type: PLASMA Comment: No hemolysis noted. Ordering Provider: TONY SIMMONS Report Released Date/Time: Aug 02, 2024 12:33 PM Reporting Lab: [address] [address] Performing Lab: [address] [address] CREATININE 0.82 mg/dL 0.7-1.3 UREA NITROGEN 21.7 [...] 96.3 >60 Aug 02, 2024 11:53 AM [facility] PROTEIN ELECTROPHORESIS BLOOD SERUM Specimen Type: SERUM Comment: Reference Range: None Detected NOTE: THIS RESULT IS FLAGGED ABNORMAL Evaluation reveals a restricted band (M-spike) migrating in the gamma globulin region. If not already requested, Immunofixation should be considered. Test Performed by [facility], [facility], [address] [place] [address] Tristin Iyer M.D., Ph.D., Director of Laboratories , CLIA [id number] PREVIOUS SUGAR: IgG [place] Ordering Provider: TONY SIMMONS Report Released Date/Time: Jul 13, 2024 01:49 PM Reporting Lab: [facility] [address] [place] [address] Performing Lab: [address] ALPHA-1 GLOBULIN(SO-PB-STL) 0.4 g/dL H 0.2 [...] g/dL H Aug 02, 2024 11:53 AM [facility] IGG (STL) PLASMA Specimen Type: PLASM A Comment: No hemolysis noted. Ordering Provider: TONY SIMMONS Report Released Date/Time: Jul 13, 2024 01:49 PM Reporting Lab: [facility] [address] [facility] [address] Performing Lab: [address] [address] IGG (STL) 1898 mg/dL H 540-1822 Aug 02, 2024 11:53 AM [facility] IGM (STL) PLASMA Specimen Type: PLASM A Comment: No hemolysis noted. Ordering Provider: TONY SIMMONS Report Released Date/Time: Jul 13, 2024 01:49 PM Reporting Lab: [facility] [address] [facility] [address] Performing Lab: [facility] [address] IGM (STL) 104 mg/dL 22-240 Aug 02, 2024 11:53 AM [facility] IGA (STL) PLASMA Specimen Type: PLASM A Comment: No hemolysis noted. Ordering Provider: TONY SIMMONS Report Released Date/Time: Jul 13, 2024 01:49 PM Reporting Lab: [facility] [address] Performing Lab: [facility] [address] [place] [address] IGA (STL) 113 mg/dL 63-484 Aug 02, 2024 11:53 AM [facility] TSH W/ REFLEX FT4 (STL) PLASMA Specimen Type: PLASMA No comment entered. Ordering Provider: TONY SIMMONS Report Released Date/Time: Jul 13, 2024 01:49 PM Reporting Lab: [address] [address] Performing Lab: [address] [address] TSH 2.182 u[IU]/mL 0.47-5 Aug 02, 2024 11:53 AM [facility] KAPPA/LAMBDA FREE LC PANEL (STL-PB) SERUM Spe cimen Type: SERUM No comment entered. Ordering Provider: TONY SIMMONS Report Released Date/Time: Jul 13, 2024 01:49 PM Reporting Lab: [address] [address] Performing Lab: [address] [address] KAPPA FREE LC (STL) 102.7 mg/L H 2.4-20.7 LAMBDA FREE LC (STL) 32.2 mg/L H 4.2-27.7 KAPPA/LAMBDA RATIO (STL) 3.19 H 0.22-1. 74 Aug 02, 2024 11:53 AM [facility] COMPREHENSIVE METABOLIC PANEL PLASMA Specimen Type: PLASMA Comment: No hemolysis noted. Ordering Provider: TONY SIMMONS Report Released Date/Time: Jul 13, 2024 01:49 PM Reporting Lab: [address] [address] Performing Lab: [place] [phone] CREATININE 0.82 mg/dL 0.7-1.3 UREA NITROGEN 12.2 [...] 96.3 >60 Aug 02, 2024 11:53 AM [facility] CBC BLOOD Specimen Type: BLOOD Comment: No Clots in specimen Ordering Provider: TONY SIMMONS Report Released Date/Time: Jul 13, 2024 01:49 PM Reporting Lab: [place] [id number] [facility] [address] Performing Lab: [place] [address] [facility] [address] WBC 2.2 10*3/uL L 3.6-11.2 RBC 3.44 [...] L 2.10-8.00 Aug 01, 2024 10:10 AM [facility] GLUCOSE,BLOOD-poct (STL) BLOOD Specimen Type: BLOOD Comment: Test Performed by: [id number] Meter #: [id number] Ordering Provider: SUKHJINDER CHAHAL Report Released Date/Time: Aug 01, 2024 10:17 AM Reporting Lab: [address] [address] Performing Lab: [address] [address] GLUCOSE,BLOOD-poct (STL) 101 mg/dL H 72-99 Jul 27, 2024 01:54 PM [facility] BRAIN NATRIURETIC PEPTIDE PLASMA Specimen Type : PLASMA No comment entered. Ordering Provider: ELIZABETH COATES Report Released Date/Time: Jul 27, 2024 03:39 PM Reporting Lab: [address] [address] Performing Lab: [address] [address] BRAIN NATRIURETIC PEPTIDE 257.2 pg/mL H 0- 100 Jul 27, 2024 01:54 PM [facility] COMPREHENSIVE METABOLIC PANEL PLASMA Specimen Type: PLASMA Comment: No hemolysis noted. Ordering Provider: ELIZABETH COATES Report Released Date/Time: Jul 27, 2024 03:39 PM Reporting Lab: [address] [address] Performing Lab: [address] [address] CREATININE 0.70 mg/dL 0.7-1.3 UREA NITROGEN 7.4 [...] 101.0 >60 Jul 27, 2024 01:54 PM [facility] TROPONIN I PLASMA Specimen Type: PLASM A Comment: No hemolysis noted. Ordering Provider: ELIZABETH COATES Report Released Date/Time: Jul 27, 2024 03:39 PM Reporting Lab: [address] [address] Performing Lab: [place] [phone] TROPONIN I 0.011 ng/mL 0-0.033 Jul 27, 2024 01:54 PM [facility] CBC BLOOD Specimen Type: BLOOD No comment entered. Ordering Provider: ELIZABETH COATES Report Released Date/Time: Jul 27, 2024 03:39 PM Reporting Lab: [address] [address] Performing Lab: [address] [address] WBC 3.2 10*3/uL L 3.6-11.2 RBC 3.12 [...] 10*3/uL 2.10-8.00 Jul 21, 2024 02:00 PM [facility] B12 SERUM Specimen Type: SERUM No comment entered. Ordering Provider: JORJE DENSON Report Released Date/Time: Jul 21, 2024 12:54 PM Reporting Lab: [place] [id number] [facility] [address] Performing Lab: [address] [address] B12 1584 pg/mL H 213-816 Jul 21, 2024 02:00 PM [facility] FOLATE (L-MA) SERUM Specimen Type: SERUM No comment entered. Ordering Provider: JORJE DENSON Report Released Date/Time: Jul 21, 2024 12:54 PM Reporting Lab: [place] [address] [facility] [address] Performing Lab: [place] [address] [facility] [address] FOLATE (L-MA) 9.1 ng/mL 7-20 Jul 21, 2024 02:00 PM [facility] IRON/TIBC PROFILE SERUM Specimen Type: SERUM No comment entered. Ordering Provider: JORJE DENSON Report Released Date/Time: Jul 21, 2024 12:54 PM Reporting Lab: [address] [address] Performing Lab: [place] [address] [facility] [address] TIBC 243 ug/dL L 250-450 TRANSFERRIN 194 mg/dL 163-344 IRON SATURATION 20 20-50 IRON 49 ug/dL L 65-175 Jul 21, 2024 02:00 PM [facility] CBC BLOOD Specimen Type: BLOOD Comment: Manual differential performed 07/20/2024 No clots Ordering Provider: JORJE DENSON Report Released Date/Time: Jul 21, 2024 12:54 PM Reporting Lab: [place] [address] [facility] [address] Performing Lab: [address] [address] WBC 5.6 10*3/uL 3.6-11.2 RBC 2.87 10*6/uL [...] H 1.0-7.0 Jul 20, 2024 08:55 PM [facility] PT/INR NEW (STL-MA) PLASMA Specimen Type: PLAS MA No comment entered. Ordering Provider: AURA ZACARIAS Report Released Date/Time: Jul 18, 2024 01:30 PM Reporting Lab: [address] [address] Performing Lab: [address] [address] PROTIME 12.8 s H 9.4-12.5 INR VALUE 1.1 {INR} Jul 20, 2024 08:55 PM [facility] BASIC METABOLIC PANEL PLASMA Specimen Type: PL ASMA Comment: No hemolysis noted. Ordering Provider: AURA ZACARIAS Report Released Date/Time: Jul 18, 2024 01:30 PM Reporting Lab: [address] [address] Performing Lab: [address] [address] CREATININE 0.74 mg/dL 0.7-1.3 UREA NITROGEN 15.1 mg/dL 9.0-25.0 GLUCOSE 121 mg/dL H 72-99 SODIUM 130 meq/L L 136-145 POTASSIUM 3.7 meq/L 3.5-5 CHLORIDE 100 meq/L 98-107 CARBON DIOXIDE 20 meq/L L 22-31 CALCIUM 8.5 mg/dL 8.4-10.4 EGFR (CKD-EPI 2020) 99.3 >60 Jul 20, 2024 08:55 PM [facility] CBC BLOOD Specimen Type: BLOOD No comment entered. Ordering Provider: AURA ZACARIAS Report Released Date/Time: Jul 18, 2024 01:30 PM Reporting Lab: [address] [address] Performing Lab: [address] [address] WBC 5.1 10*3/uL 3.6-11.2 RBC 2.90 10*6/uL [...] 10*3/uL 2.10-8.00 Jul 20, 2024 01:13 PM [facility] CBC BLOOD Specimen Type: BLOOD No comment entered. Ordering Provider: AURA ZACARIAS Report Released Date/Time: Jul 18, 2024 01:30 PM Reporting Lab: [address] [address] Performing Lab: [address] [address] WBC 5.6 10*3/uL 3.6-11.2 RBC 3.11 10*6/uL [...] 10*3/uL 2.10-8.00 Jul 19, 2024 06:42 AM [facility] PT/INR NEW (STL-FL) PLASMA Specimen Type: PLAS MA No comment entered. Ordering Provider: AURA ZACARIAS Report Released Date/Time: Jul 18, 2024 01:30 PM Reporting Lab: [address] [address] Performing Lab: [address] [address] PROTIME 16.4 s H 9.4-12.5 INR VALUE 1.5 {INR} Jul 19, 2024 06:42 AM [facility] BASIC METABOLIC PANEL PLASMA Specimen Type: PL ASMA Comment: No hemolysis noted. Ordering Provider: AURA ZACARIAS Report Released Date/Time: Jul 18, 2024 01:30 PM Reporting Lab: [address] [address] Performing Lab: [address] [address] CREATININE 0.94 mg/dL 0.7-1.3 UREA NITROGEN 23.8 mg/dL 9.0-25.0 GLUCOSE 87 mg/dL 72-99 SODIUM 129 meq/L L 136-145 POTASSIUM 3.4 meq/L L 3.5-5 CHLORIDE 102 meq/L 98-107 CARBON DIOXIDE 20 meq/L L 22-31 CALCIUM 8.1 mg/dL L 8.4-10.4 EGFR (CKD-EPI 2020) 88.9 >60 Jul 19, 2024 06:42 AM [facility] CBC BLOOD Specimen Type: BLOOD No comment entered. Ordering Provider: AURA ZACARIAS Report Released Date/Time: Jul 18, 2024 01:30 PM Reporting Lab: [address] [address] Performing Lab: [address] [address] WBC 5.1 10*3/uL 3.6-11.2 RBC 2.45 10*6/uL [...] H 1.0-7.0 Jul 18, 2024 08:51 PM [facility] CBC BLOOD Specimen Type: BLOOD No comment entered. Ordering Provider: AURA ZACARIAS Report Released Date/Time: Jul 18, 2024 01:30 PM Reporting Lab: [address] [address] Performing Lab: [address] [address] WBC 6.2 10*3/uL 3.6-11.2 RBC 2.44 10*6/uL [...] 10*3/uL 2.10-8.00 Jul 18, 2024 04:19 PM [facility] CBC BLOOD Specimen Type: BLOOD No comment entered. Ordering Provider: AURA ZACARIAS Report Released Date/Time: Jul 18, 2024 01:30 PM Reporting Lab: [address] [address] Performing Lab: [address] [address] WBC 6.1 10*3/uL 3.6-11.2 RBC 2.57 10*6/uL [...] 10*3/uL 2.10-8.00 Jul 18, 2024 06:32 AM [facility] LACTIC ACID (STL-PB) PLASMA Specimen Type: NEIL SMA No comment entered. Ordering Provider: CAMDEN PATTON Report Released Date/Time: Jul 17, 2024 07:38 PM Reporting Lab: [address] [address] Performing Lab: [address] [address] LACTIC ACID ([facility]-PB) 1.3 mmol/L 0.5-2.0 Jul 18, 2024 06:32 AM [facility] PT/INR NEW (L-MA) PLASMA Specimen Type: PLAS MA No comment entered. Ordering Provider: CAMDEN PATTON Report Released Date/Time: Jul 17, 2024 07:38 PM Reporting Lab: [address] [address] Performing Lab: [address] [address] PROTIME 19.1 s H 9.4-12.5 INR VALUE 1.7 {INR} Jul 18, 2024 06:32 AM [facility] CBC BLOOD Specimen Type: BLOOD Comment: HGB Called to : Dr. Posadas MOD at: 0657 on: 07/18/24 by: [email or web address] Critical Verbal Readback Performed Ordering Provider: CAMDEN PATTON Report Released Date/Time: Jul 17, 2024 07:38 PM Reporting Lab: [address] [address] Performing Lab: [address] [address] WBC 7.0 10*3/uL 3.6-11.2 RBC 2.04 10*6/uL [...] 10*3/uL 2.10-8.00 Jul 18, 2024 06:32 AM [facility] VANCOMYCIN (STL) PLASMA Specimen Type: PLASM A No comment entered. Ordering Provider: CAMDEN PATTON Report Released Date/Time: Jul 17, 2024 07:38 PM Reporting Lab: [address] [address] Performing Lab: [place] [address] VANCOMYCIN (STL) 5.0 ug/mL L 10-15 Jul 18, 2024 06:32 AM [facility] MAGNESIUM PLASMA Specimen Type: PLASM A Comment: No hemolysis noted. Ordering Provider: CAMDEN PATTON Report Released Date/Time: Jul 17, 2024 07:38 PM Reporting Lab: [address] [address] Performing Lab: [place] [phone] MAGNESIUM 1.5 mg/dL L 1.6-2.6 Jul 18, 2024 06:32 AM [facility] PHOSPHOROUS PLASMA Specimen Type: PLASM A Comment: No hemolysis noted. Ordering Provider: CAMDEN PATTON Report Released Date/Time: Jul 17, 2024 07:38 PM Reporting Lab: [address] [address] Performing Lab: [address] [address] PHOSPHOROUS 2.2 mg/dL L 2.3-4.7 Jul 18, 2024 06:32 AM [facility] COMPREHENSIVE METABOLIC PANEL PLASMA Specimen Type: PLASMA Comment: No hemolysis noted. Ordering Provider: CAMDEN PATTON Report Released Date/Time: Jul 17, 2024 07:38 PM Reporting Lab: [address] [address] Performing Lab: [address] [address] CREATININE 1.08 mg/dL 0.7-1.3 UREA NITROGEN 40.5 [...] 75.2 >60 Jul 18, 2024 12:05 AM [facility] HGB,HCT,PLT BLOOD Specimen Type: BLOOD No comment entered. Ordering Provider: ROSA VARGAS Report Released Date/Time: Jul 17, 2024 09:07 PM Reporting Lab: [address] [address] Performing Lab: [address] [address] HGB 7.3 g/dL L 13.1-16.8 HCT 21.0 L 38.2-48.4 PLT 64 10*3/uL L 150-400 Jul 17, 2024 07:45 PM [facility] MRSA SURVL NARES DNA NARES Specimen Type: [...] 17, 2024 07:38 PM Reporting Lab: [address] [address] Performing Lab: [address] [address] MRSA SURVL NARES DNA Negative Negative Jul 17, 2024 07:36 PM [facility] GLUCOSE,BLOOD-poct (L) BLOOD Specimen Type: BLOOD Comment: Test Performed by: [id number] Meter #: [id number] Ordering Provider: CAMDEN PATTON Report Released Date/Time: Jul 17, 2024 07:48 PM Reporting Lab: [address] [address] Performing Lab: [address] [address] GLUCOSE,BLOOD-poct (L) 98 mg/dL 72-99 Jul 17, 2024 07:35 PM [facility] BLOOD GAS PANEL ABG ([facility]) VENOUS BLOOD Specimen Type : VENOUS BLOOD Comment: normalcy status - Below absolute low-off instrument scale Test Performed by: [id number] Meter #: [id number] Ordering Provider: CAMDEN PATTON Report Released Date/Time: Jul 17, 2024 07:37 PM Reporting Lab: [address] [address] Performing Lab: [address] [address] GEM PH 7.39 7.31-7.41 GEM PCO2 31 [...] TEMP 37.0 Jul 17, 2024 07:10 PM [facility] URINALYSIS W/ CX REFLEX (STL-PB) URINE Specim en Type: URINE No comment entered. Ordering Provider: CASEY BOONE Report Released Date/Time: Jul 17, 2024 04:24 PM Reporting Lab: [address] [address] Performing Lab: [address] [address] URINE COLOR Light-Yellow Yellow U.BILIRUBIN Negative mg/dL Negative U.PH 6.0 5.0-8.0 APPEARANCE Clear Clear U.NITRITE Negative mg/dL Negative URN.GLUCOSE Normal mg/dL Negative URN.PROTEIN Negative mg/dL URN.UROBILINOGEN Normal mg/dL Normal URN.BLOOD Negative mg/dL Negative-Trace URN.KETONES Trace mg/dL Negative-Trace URN.LEUK.EST. Negative mg/dL Negative-Tr april URN.SPECIFIC GRAVITY 1.029 Jul 17, 2024 06:25 PM [facility] HAPTOGLOBIN (STL) PLASMA Specimen Type: PLASM A No comment entered. Ordering Provider: CASEY BOONE Report Released Date/Time: Jul 17, 2024 06:13 PM Reporting Lab: [address] [address] Performing Lab: [address] [address] HAPTOGLOBIN (STL) 93 mg/dL 44-215 Jul 17, 2024 06:25 PM [facility] RETICULOCYTE PANEL BLOOD Specimen Type: BLOOD No comment entered. Ordering Provider: CASEY BOONE Report Released Date/Time: Jul 17, 2024 06:13 PM Reporting Lab: [address] [address] Performing Lab: [place] [address] RETIC RATIO 7.35 H 0.50-2.30 IRF 39.7 H 2.3-13.4 RETICULOCYTE HEMOGLOBIN EQUIVALENT 35.8 pg 28.2-36.6 RETIC COUNT,ABS 0.129 10*6/uL H 0.022-0.10 1 Jul 17, 2024 06:25 PM [facility] LDH PLASMA Specimen Type: PLASM A No comment entered. Ordering Provider: CASEY BOONE Report Released Date/Time: Jul 17, 2024 06:13 PM Reporting Lab: [place] [phone] Performing Lab: [place] [phone] LDH 305 U/L H 125-243 Jul 17, 2024 06:25 PM [facility] CBC BLOOD Specimen Type: BLOOD Comment: HGB Called to : Watson White at: 1933 on:[id number] by: [facility] Critical Verbal Readback Performed Ordering Provider: CAMDEN PATTON Report Released Date/Time: Jul 17, 2024 07:09 PM Reporting Lab: [place] [phone] Performing Lab: [place] [phone] WBC 27.6 10*3/uL H 3.6-11.2 RBC 1.76 [...] H 2.10-8.00 Jul 17, 2024 04:59 PM [facility] BLOOD GAS PANEL ABG ([facility]) VENOUS BLOOD Specimen Type : VENOUS BLOOD Comment: Test Performed by: [id number] Meter #: [id number] Ordering Provider: CASEY BOONE Report Released Date/Time: Jul 17, 2024 05:00 PM Reporting Lab: [address] [address] Performing Lab: [address] [address] GEM PH 7.39 7.31-7.41 GEM PCO2 33 [...] TEMP 37.0 Jul 17, 2024 04:25 PM [facility] MAGNESIUM PLASMA Specimen Type: PLASM A Comment: No hemolysis noted. Ordering Provider: CASEY BOONE Report Released Date/Time: Jul 17, 2024 04:24 PM Reporting Lab: [facility] [address] [facility] [address] Performing Lab: [facility] [address] [place] [address] MAGNESIUM 1.4 mg/dL L 1.6-2.6 Jul 17, 2024 04:25 PM [facility] PT/INR NEW (L-MA) PLASMA Specimen Type: PLAS MA No comment entered. Ordering Provider: CASEY BOONE Report Released Date/Time: Jul 17, 2024 04:24 PM Reporting Lab: [address] [address] Performing Lab: [address] [address] PROTIME 25.3 s H 9.4-12.5 INR VALUE 2.3 {INR} Jul 17, 2024 04:25 PM [facility] COVID-19 DIAGNOSTIC (FLU/RSV)(STL) NASOPHARYNX Spec imen Type: [...] 17, 2024 04:24 PM Reporting Lab: [address] [address] Performing Lab: [address] [address] INFLUENZA A Negative Negative INFLUENZA B Negative Negative COVID-19 (STL-PB) Not Detected Not Detec nate RSV (Cepheid) NEGATIVE Negative Jul 17, 2024 04:25 PM [facility] COMPREHENSIVE METABOLIC PANEL PLASMA Specimen Type: PLASMA Comment: No hemolysis noted. Ordering Provider: CASEY BOONE Report Released Date/Time: Jul 17, 2024 04:24 PM Reporting Lab: [facility] [address] [place] [address] Performing Lab: [address] [address] CREATININE 1.25 mg/dL 0.7-1.3 UREA NITROGEN 47.0 [...] 63.1 >60 Jul 17, 2024 04:25 PM [facility] CBC BLOOD Specimen Type: BLOOD No comment entered. Ordering Provider: CASEY BOONE Report Released Date/Time: Jul 17, 2024 04:24 PM Reporting Lab: [facility] [address] [facility] [address] Performing Lab: [address] [address] WBC 42.4 10*3/uL H 3.6-11.2 RBC 2.20 [...] H 2.10-8.00 Jul 13, 2024 12:39 PM [facility] PHOSPHOROUS PLASMA Specimen Type: PLASM A Comment: No hemolysis noted. Ordering Provider: TONY SIMMONS Report Released Date/Time: Jun 07, 2024 01:01 PM Reporting Lab: [place] [address] [facility] [address] Performing Lab: [place] [address] [facility] [address] PHOSPHOROUS 2.4 mg/dL 2.3-4.7 Jul 13, 2024 12:39 PM [facility] TSH W/ REFLEX FT4 (STL) PLASMA Specimen Type: PLASMA No comment entered. Ordering Provider: TONY SIMMONS Report Released Date/Time: Jun 07, 2024 01:01 PM Reporting Lab: [address] [address] Performing Lab: [address] [place] [address] TSH 1.431 u[IU]/mL 0.47-5 Jul 13, 2024 12:39 PM [facility] MAGNESIUM PLASMA Specimen Type: PLASM A Comment: No hemolysis noted. Ordering Provider: TONY SIMMONS Report Released Date/Time: Jun 07, 2024 01:01 PM Reporting Lab: [address] [address] Performing Lab: [address] [address] MAGNESIUM 2.0 mg/dL 1.6-2.6 Jul 13, 2024 12:39 PM [facility] COMPREHENSIVE METABOLIC PANEL PLASMA Specimen Type: PLASMA Comment: No hemolysis noted. Ordering Provider: TONY SIMMONS Report Released Date/Time: Jun 07, 2024 01:01 PM Reporting Lab: [address] [address] Performing Lab: [address] [address] CREATININE 0.75 mg/dL 0.7-1.3 UREA NITROGEN 21.3 [...] 98.9 >60 Jul 13, 2024 12:39 PM [facility] CBC BLOOD Specimen Type: BLOOD Comment: no clot Ordering Provider: TONY SIMMONS Report Released Date/Time: Jun 07, 2024 01:01 PM Reporting Lab: [address] [place] [address] Performing Lab: [address] [address] WBC 3.0 10*3/uL L 3.6-11.2 RBC 3.83 [...] 10*3/uL 2.10-8.00 Jul 13, 2024 12:38 PM [facility] ALPHA-FETOPROTEIN(STL-PB) SERUM Specimen Type : SERUM No comment entered. Ordering Provider: CRYSTAL MASSEY Report Released Date/Time: Jul 04, 2024 03:26 PM Reporting Lab: [address] [address] Performing Lab: [address] [address] ALPHA-FETOPROTEIN(STL-PB) 16.86 ng/mL H 1- 8.78 Jul 13, 2024 12:37 PM [facility] CARBOHYDRATE Ag SERUM Specimen Type: SERUM Comment: REFERENCE RANGE: <34 U/mL This test was performed using the Siemens chemiluminescent method. Values obtained from different assay methods cannot be used inter- changeably. CA 19-9 levels, regardless of value, should not be interpreted as absolute evidence of the presence or absence of disease. Test Performed by [facility], [facility], [address] [place], [place] Tristin Iyer M.D., Ph.D., Director of Laboratories , CLIA [id number] Ordering Provider: CRYSTAL MASSEY Report Released Date/Time: Jul 04, 2024 03:28 PM Reporting Lab: [facility] [address] [facility] [address] Performing Lab: [facility] [address] [facility] CARBOHYDRATE Ag 61 H SEE BELOW Vital Signs: All taken on the encounter date This section contains inpatient and outpatient Vital Signs collected on the date of the Encounter. Date/Time Temperature Pulse Blood Pressure Respiratory Rate SP02 Pain Height Weight Body Mass Index Source Jul 27, 2024 05:40 PM 72 127/72 [facility] Jul 27, 2024 03:25 PM 98.5 75 138/81 18 3 [facility] Social History: Smoking Status (Most current) and Tobacco Use (All prior to encounter date) This section includes the most current, and the historical, smoking and tobacco- related health factors from the [place] facility where the Encounter took place. Current Smoking Status This section includes the most current smoking, or tobacco-related health factor, from the [place] facility where the Encounter took place. Date/Time Current Smoking Status Comment Kaz ity Jul 17, 2024 04:02 PM [facility] ADMIT TOBACCO SCREEN NO [facility] Tobacco Use History This section includes a history of the smoking, or tobacco-related health factors, that were collected on or before the date of the Encounter. The data comes from the [place] facility where the Encounter took place. Date/Time Smoking Status/Tobacco Use Comment F acility Jan 20, 2023 03:49 PM VA-TOBACCO FORMER USER [facility] Jan 20, 2023 03:49 PM VA-TOBACCO QUIT 15 YRS OR MORE [facility] Feb 06, 2021 04:28 PM VA-TOBACCO FORMER USER [facility] Feb 06, 2021 04:28 PM [place] 15 YRS OR MORE [facility] Radiology Reports: +/- 30 days of [...] the Encounter. The data comes from all [place] treatment facilities. Date/Time Radiology Report Provider Source Aug 23, 2024 12:12 PM US BLOOD FLOW ABD/RENAL DOPPLER (COMPLETE): ABRAHAM HAWK [id number] -1955 M Exm Date: AUG 23, 2024@12:12 Req Phys: GILSON OG Pat Loc: [facility]-GEN MED INPT VISIT (Req'g L Img Loc: [facility]-ULTRASOUND [facility] Service: Unknown [facility] [address] [place] [address] (Case [id number] COMPLETE) US BLOOD FLOW ABD/RENAL DOPPLER ((US Detailed) CPT:24860 Reason for Study: dopplers Clinical History: Report Status: Verified Date Reported: AUG 23, 2024 Date Verified: AUG 23, 2024 Plate Sensitizer E-Sig:/ES/PETROS MCCORD Report: Case [id number], [id number]. US ABDOMEN LTD, SINGLE ORG OR QUADRANT, [...] vasculature. Primary Interpreting Staff: PETROS MCCORD MD (Plate Sensitizer) /PETROS SRIVASTAVA [facility] Aug 23, 2024 12:12 PM US ABDOMEN LTD, SINGLE ORG OR QUADRANT: ABRAHAM HAWK [id number] -1955 M Exm Date: AUG 23, 2024@12:12 Req Phys: GILSON OG Pat Loc: [facility]-GEN MED INPT VISIT (Req'g L Img Loc: [facility]-ULTRASOUND [facility] Service: Unknown [address] [address] (Case [id number] COMPLETE) US ABDOMEN LTD, SINGLE ORG OR CARLITOS(US Detailed) CPT:85488 Reason for Study: Possible SBP, RUQUS with dopplers, please comment on ascites? Clinical History: Report Status: Verified Date Reported: AUG 23, 2024 Date Verified: AUG 23, 2024 Plate Sensitizer E-Sig:/ES/PETROS MCCORD Report: Case [id number], [id number]. US ABDOMEN LTD, SINGLE ORG OR QUADRANT, [...] vasculature. Primary Interpreting Staff: PETROS MCCORD MD (Plate Sensitizer) /PETROS SRIVASTAVA [facility] Aug 10, 2024 02:[address] ABD PEL W/CONT & 3D: ABRAHAM HAWK [id number] -1955 M Exm Date: AUG 10, 2024@14:33 Req Phys: YASIR SANZ MD Pat Loc: [facility]-EMERGENCY DEPT 2ND SHIFT (R Img Loc: [facility]-CT IMAGING [facility] Service: Unknown [facility], [facility] [address] [place] [address] (Case [id number] COMPLETE) CT ABDOMEN AND PELVIS W/CONTRAST (CT Detailed) CPT:78252 Contrast Media : Non-ionic Iodinated Reason for Study: Abdominal pain, vomiting Clinical History: Responsible Attending: Svetlana Attending Contact Number: [phone] Resident Contact Number: Abdominal pain, vomiting Allergies listed in CPRS chart: Patient has answered NKA Creatinine:CREATININE 0.82 mg/dL 08/10/2024 11:30 /eGFR: STL EGFR (within one year). CREATININE 0.82 mg/dL (08/10/24 11:30) Wt: 152.1 lb [68.99 kg] (08/10/2024 11:31) History of: Renal failure, chronic or acute renal disease: NO Report Status: Verified Date Reported: AUG 10, 2024 Date Verified: AUG 10, 2024 Plate Sensitizer E-Sig:/ES/PETROS MCCORD Report: Case [id number]. CT ABDOMEN AND PELVIS W/CONTRAST. Gastrointestinal contrast: [...] findings. Primary Interpreting Staff: PETROS MCCORD MD (Plate Sensitizer) Primary Interpreting Resident: KENNETH ALBRIGHT, Manager Online /PETROS REESE [facility] Aug 01, 2024 10:20 AM PET/CT TUMOR IMAGING (SKULL TO MID-THIGH)-P: ABRAHAM HAWK [id number] -1955 M Exm Date: AUG 01, 2024@10:20 Req Phys: TONY SIMMONS Loc: [facility]-ONCOLOGY IRIS (Req'g Loc) [facility] Loc: [facility]-PET-CT Service: [address] [address] (Case [id number] COMPLETE) PET/CT TUMOR SKULL BASE TO MID-T(NM Detailed) CPT:33339 CPT Modifiers : PS PET TUMOR SUBSQ TX STRATEGY Reason for Study: Nasopharyngeal cancer (Case [id number] COMPLETE) F-18 FLUORODEOXYGLUCOSE (FDG),PER(NM Detailed) CPT:A9552 Clinical History: Report Status: Verified Date Reported: AUG 01, 2024 Date Verified: AUG 01, 2024 Plate Sensitizer E-Sig:/LOLY/NATASHA LEIJA Report: PATIENT NAME: ABRAHAM HAWK. CASE #: [id number], [id number]. PROCEDURE: PET/CT study Indication: Nasopharyngeal cancer HISTORY: [...] lytic osseous lesion is noted within the [id number]. Impression: 1. The previous sites of FDG [...] NEEDED Primary Interpreting Staff: NATASHA LEIJA MD (Plate Sensitizer) /PFT NATASHA LEIJA [facility] Jul 27, 2024 03:41 PM CHEST PORTABLE: ABRAHAM HAWK [id number] -1955 M Exm Date: JUL 27, 2024@15:41 Req Phys: GENELIZABETH CASSIDY Pat Loc: [facility]-EMERGENCY DEPT 2ND SHIFT (R Img Loc: [facility]-MAIN RADIOLOGY SUITE Service: Unknown [facility], [facility] [address] [place] [address] (Case [id number] COMPLETE) CHEST PORTABLE (RAD Detailed) CPT:71745 Proc Modifiers : Portable Reason for Study: sob Clinical History: Report Status: Verified Date Reported: JUL 27, 2024 Date Verified: JUL 27, 2024 Plate Sensitizer E-Sig:/ES/Sol Abraham MD Report: CASE [id number]. AP portable view chest. COMPARISON: Chest x-ray [...] Primary Interpreting Staff: Sol Abraham MD, Radiologist (Plate Sensitizer) Primary Interpreting Resident: Krystian Sultana D.O., Resident Physician /SOL DHALIWAL [facility] Jul 17, 2024 06:[address] ABD PEL W/CONT & 3D: ABRAHAM HAWK [id number] -1955 M Exm Date: JUL 17, 2024@18:18 Req Phys: CASEY BOONE Pat [facility]07-17-2024@19:47 Img Loc: [facility]-CT IMAGING [facility] Service: Unknown [facility], [facility] [address] [place] [address] (Case [id number] COMPLETE) CT ABDOMEN AND PELVIS W/CONTRAST (CT Detailed) CPT:27380 Contrast Media : Non-ionic Iodinated Reason for Study: septic shock, abd pain Clinical History: Responsible Attending: Nils Attending Contact Number: [phone] Resident Contact Number: Septic shock, Patient with [...] 17, 2024 Date Verified: JUL 17, 2024 Plate Sensitizer E-Sig: Report: CT THORAX W/CONT (PE) [PRINTSET], CT ABDOMEN AND PELVIS W/CONTRAST [PRINTSET] Comparison: 03/17/2022, 04/23/2024 Clinical History: RO PE The study was protocoled and supervised at the local [place] facility. Chest 12 series and 1585 images were subsequently received by the [place] [facility] (NTP) for interpretation. Abdomen and pelvis 9 series and 1365 images were subsequently received by the [place] [facility] (NTP) for interpretation. Total [...] from 09/12/2023. READING PHYSICIAN: Guilherme Talbert M.D. -[phone] 07/17/2024 17:44 [facility] National Teleradiology Program [phone] (For Medical Practitioner Use Only) Attention Patients / Veterans: If you have questions or concerns about these test results, please contact your ordering provider or primary care team. Primary Interpreting Staff: RADIOLOGY,OUTSIDE SERVICE, Staff Physician / RADIOLOGY,OUTSIDE SERVICE [facility] Jul 17, 2024 06:[address] PE CHEST W/3D: ABRAHAM HAWK [id number] -1955 M Ex Date: JUL 17, 2024@18:17 Req Phys: CASEY BOONE Loc: 4-C SICU-[facility]/07-17-2024@19:47 Img Loc: [facility]-CT IMAGING [facility] Service: [facility], [facility] [address] [place] [address] (Case [id number] COMPLETE) CT THORAX W/CONT (PE) (CT Detailed) CPT:14630 Contrast Media : unspecified contrast media Reason for Study: RO PE Clinical History: Responsible Attending: Nils Attending Contact Number: [phone] Resident Contact Number: Patient with HCC and [...] 17, 2024 Date Verified: JUL 17, 2024 Plate Sensitizer E-Sig: Report: CT THORAX W/CONT (PE) [PRINTSET], CT ABDOMEN AND PELVIS W/CONTRAST [PRINTSET] Comparison: 03/17/2022, 04/23/2024 Clinical History: RO PE The study was protocoled and supervised at the local [place] facility. Chest 12 series and 1585 images were subsequently received by the [place] [facility] (NTP) for interpretation. Abdomen and pelvis 9 series and 1365 images were subsequently received by the [place] [facility] (NTP) for interpretation. Total [...] from 09/12/2023. READING PHYSICIAN: Guilherme Talbert M.D. -[phone] 07/17/2024 17:44 [facility] National Teleradiology Program [phone] (For Medical Practitioner Use Only) Attention Patients / Veterans: If you have questions or concerns about these test results, please contact your ordering provider or primary care team. Primary Interpreting Staff: RADIOLOGY,OUTSIDE SERVICE, Staff Physician / RADIOLOGY,OUTSIDE SERVICE [facility] Pathology Reports: +/- 30 days of [...] the Encounter. The data comes from all [place] treatment facilities. Date/Time Pathology Report Provider Source [...] Performing Laboratory: Surgical Pathology Report Performed By: [facility], [address]# [id number] [address] [place] [id number] $FTR - - - - - - [...] - - ABRAHAM HAWK STANDARD FORM 515 ID:[id number] SEX:M :1955 AGE: 68 LOC:APFEE PCP: Deirdre Wild /loly/ CRISTIANA TEMPLETON Pathologist Signed: 08/16/2024 09:43 CRISTIANA TEMPLETON [facility] Aug 11, 2024 06:00 AM LR MICROBIOLOGY RE PORT: Accession [UID]: [id number] [[id number]] Received: Aug 11, 2024@06:19 Collection sample: Mario Alberto Jones BLD. BOTTLE Collection date: Aug 11, 2024 06:00 Site/Specimen: BLOOD Provider: GILSON OG Test(s) ordered: BLOOD CULT (SET 1)............ completed: Aug 17, 2024 10:06 * BACTERIOLOGY FINAL REPORT => Aug 17, 2024 10:22 TECH CODE: [id number] Bacteriology Remark(s): 2. ANITHA Culture shows NO GROWTH IN 6 DAYS =--=--=--=--=--=--=--=--=-- =--=--=--=--=--=--=--=--=-- =--=--=--=--=--=--=--=-- Performing Laboratory: Bacteriology Report Performed By: [facility] CLIA# [id number] [address] [facility] [address] [place] [address] JULISSA BROWN [facility] Jul 17, 2024 05:10 PM LR MICROBIOLOGY RE PORT: Accession [UID]: [id number] [[id number]] Received: Jul 17, 2024@17:30 Collection sample: Mario Alberto D BLD. BOTTLE (SET 2)Collection date: Jul 17, 2024 17:10 Site/Specimen: BLOOD Provider: CASEY BOONE Test(s) ordered: BLOOD CULT (SET 2)............ completed: Jul 23, 2024 14:26 * BACTERIOLOGY FINAL REPORT => Jul 23, 2024 14:28 TECH CODE: [id number] Bacteriology Remark(s): CULTURE IS NEGATIVE TO DATE, ALL POSITIVES ARE ROUTINELY CALLED. KI Culture shows NO GROWTH IN 6 DAYS. 07/23/24 KI =--=--=--=--=--=--=--=--=-- =--=--=--=--=--=--=--=--=-- =--=--=--=--=--=--=--=-- Performing Laboratory: Bacteriology Report Performed By: [facility] [address] [place] [address] CLIA# [id number] [address] [place] [address] JULISSA BROWN [facility] Jul 17, 2024 05:10 PM LR MICROBIOLOGY RE PORT: Accession [UID]: [id number] [[id number]] Received: Jul 17, 2024@17:30 Collection sample: Mario Alberto D BLD. BOTTLE Collection date: Jul 17, 2024 17:10 Site/Specimen: BLOOD Provider: CASEY BOONE Test(s) ordered: BLOOD CULT (SET 1)............ completed: Jul 23, 2024 14:26 * BACTERIOLOGY FINAL REPORT => Jul 23, 2024 14:28 TECH CODE: [id number] Bacteriology Remark(s): CULTURE IS NEGATIVE TO DATE, ALL POSITIVES ARE ROUTINELY CALLED. KI Culture shows NO GROWTH IN 6 DAYS. 07/23/24 KI =--=--=--=--=--=--=--=--=-- =--=--=--=--=--=--=--=--=-- =--=--=--=--=--=--=--=-- Performing Laboratory: Bacteriology Report Performed By: [facility], [facility] [address] [facility] CLIA# [id number] [address] [facility] [address] [place] [address] JULISSA BROWN [facility] Encounter Notes: All associated encounter notes This section contains the clinical notes associated to the Encounter. 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 He recently received his first dose of Keytruda on July 13, 2024. The patient admitted to ICU with worsening shortness of breath,fatigue, diarrhea with black liquid stools, and weakness following the Keytrudainfusion. His symptoms included lightheadedness, generalized weakness, and new-onset black tarry diarrhea. pt came to ER C/O swelling and minor discomfort to ankles for 1 week. and progressive shortness of breath, fatigue he had a keytruda infusion and that is a side effect of the medication. also he was in the ICU last week. pt drinking excessive water and sitting most of the day after 2 weeks ago GI bleed less activity REVIEW OF SYSTEMS: See HPI for further details. All 10 systems reviewed and otherwise negative unless otherwise detailed herein. 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 Indication: FOR SBP PROPHYLAXIS 8) TABLET CUTTER USE TABLET CUTTER NEEDED ACTIVE Indication: FOR TABLET CUTTING Active Non-VA Medications Status 1) Non-VA AMPHETAMINE/DEXTROAMPHET [...] BY MOUTH ONCE A DAY ACTIVE NEEDED 14 Total Medications No medications found.. I have reviewed the patient's medication list with the patient and/or his/her care-community health agent. Any medication discrepancies have been resolved. Patient will be provided with an updated list of his/her medication(s). SURGICAL HISTORY: not pertinent FAMILY HISTORY: not pertinent SOCIAL HISTORY: Social History Main Topics: Smoking status: No data available for: Current Tobacco User Alcohol Use: not indorsed ____ Illicit Drug Use: not indorsed Sexual Activity: Other Topics of Concern: Child bearing age: N/A LMP: N/A possible: N/A ALLERGIES: Review of patient's allergies indicates: Patient has answered NKA PHYSICAL EXAM: VITAL SIGNS: 138/81 (07/27/2024 15:25)75 (07/27/2024 15:25)99% (07/22/2024 11:48)98.5 F [36.9 C] (07/27/2024 15:25)18 (07/27/2024 15:25)The OBJECT WEIGHT LAST 3 was NOT found...Contact IRM. MAThe OBJECT was NOT found...Contact IRM.PAIN ASSESSMENTThe OBJECT was NOT found...Contact IRM. Measurement DT PAIN 07/27/2024 15:25 3 General: cooperative, well appearing, no acute distress HEENT: atraumatic, symmetric, sclera anicteric, no pharyngeal erythema/exudate Neck: No JVD, no LAD CV: RRR, normal S1/S2, no murmurs Lungs: CTAB, no rales Abd: nontender, nondistended, nml bowel sounds Skin: no rashes or lesions, warm, dry Neuro: A&O x3, follows commands, no focal deficits, CN II-XII grossly in tact Ext: 5/5 strength in all extremities, 2+ pulses, good sensation throughout +1 -2 edema ketty LE LABS: WBC 3.2 L 10*3/uL 3.6 - 11.2 RBC 3.12 L 10*6/uL 4.10 - 5.70 HGB 9.9 L g/dL 13.1 - 16.8 HCT 31.5 L % 38.2 - 48.4 MCV 101.0 H fL 80.0 - 100.0 MCH 31.7 pg 27.0 - 34.0 MCHC 31.4 L g/dL 33.0 - 36.0 RDW 16.3 H % 11.8 - 15.1 PLT 86 L 10*3/uL 150 - 400 MPV 11.5 H fL 7.5 - 11.2 IMMATURE PLT FRACTION 5.2 % 1.0 - 7.0 SODIUM 135 L mEq/L 136 - 145 POTASSIUM 3.7 mEq/L 3.5 - 5 CHLORIDE 101 mEq/L 98 - 107 UREA NITROGEN 7.4 L mg/dL 9.0 - 25.0 CREATININE 0.70 mg/dL 0.7 - 1.3 CALCIUM 8.7 mg/dL 8.4 - 10.4 PROTEIN 7.1 g/dL 6 - 8.6 ALBUMIN 3.3 L g/dL 3.4 - 5 ALKALINE PHOSPHATASE 112 U/L 40 - 150 ALT/SGPT 34 U/L 8 - 40 AST/SGOT 33 U/L 5 - 34 TOTAL BILIRUBIN 0.9 mg/dL 0.2 - 1.2 CARBON DIOXIDE 26 mEq/L 22 - 31 GLUCOSE 110 H mg/dL 72 - 99 TROPONIN I 0.011 ng/mL 0 - 0.033 EGFR (CKD-EPI 2020) 101.0 Ref: >=60 BRAIN NATRIURETIC PEPTIDE 257.2 H pg/mL 0 - 100 TROPONIN I 0.011 ng/mL 0 - 0.033 RADIOLOGY: CXR Impression: No focal pneumonia or pleural effusion. Minimal left basilar atelectasis. No CHF. Left upper lobe nodule could be benign or malignant as noted on 07/17/[address] Ongoing follow-up advised. ECG IMPRESSION:NSR HR 78 ED COURSE & MEDICAL DECISION MAKING: Patient with bilateral lower extremities edema [facility] and [facility] breath Bilateral lower extremities edema patient drinking excessive amount of water and some soda at the same time not active like before he is sitting long hours with his feet in the floor His lab looks fine except elevated BNP Instruct patient to restrict water to 1.5 L/day To elevate his bilateral lower extremities and using elastic stocking . The patient Lasix and KCl and to follow-up with PCP Patient to return to ER if get worse Nursing notes, medications, vital signs, allergies and pertinent labs & imaging studies reviewed (see chart for details) with lab results reviewed with patient and family/caregivers at bedside and radiology results reviewed with patient and any family/caregivers at bedside. Stable, alert, nontoxic, nonfocal with clinically apparent Clinical information obtained from an independent historian. History obtained from or confirmed by: Discussed with radiology regarding test interpretation imaging:patient and family I performed an independent interpretation of:see notes Patient's care impacted by: _x__Medical records Management of the patient was discussed with: ___Hospitalist ___Consultant ___Behavioral health provider I considered admission/ observation but decided upon discharge due to: hospitalization not required PIANO STRINGER SERVICE/TIME: MEDICATIONS GIVEN IN ED: [ ] YES [ x ] NO DIFFERENTIAL DIAGNOSES CONSIDERED: DECISION to ADMIT / DISCHARGE TIME: 17.00 SMOKING CESSATION RECOMMENDATION: The patient was strongly advised to consider stopping smoking, advised of risks of smoking and benefits of stopping; and was recommended for referral/abatement options. DISPOSITION CONDITION:[ ] Improved [ x ] Unchanged [ ] Deteriorated CLINICAL IMPRESSION: 1 -bilateral lower extremities edema just discharge 2 weeks ago from the [place] ICU for anemic and shortness of breath Bilateral lower extremities edema patient drinking excessive amount of water and some soda at the same time not active like before he is sitting long hours with his feet in the floor His lab looks fine except elevated BNP Instruct patient to restrict water to 1.5 L/day To elevate his bilateral lower extremities and using elastic stocking . The patient Lasix and KCl and to follow-up with PCP Patient to return to ER if get worse Patient to follow-up with possible cardiology for 2D echo and cardiac workup 2 - 3 - DISCHARGE INSTRUCTIONS AND PATIENT-DIRECTED FOLLOW-UP RECOMMENDATIONS: DIET: Fluid restrictions low-salt diet ACTIVITY: As tolerated NEW MEDS: Lasix and KCl MEDICATION RECONCILIATION: CONTINUE ALL PRESCRIBED MEDICATIONS DIRECTED EXCEPT: FOLLOW-UP WITH PRIMARY WELT SLASHER/SPECIALIST: routine in 1-2 weeks if not improving, sooner if worse RETURN TO EMERGENCY: if any worries or concerns ADDITIONAL SIGNATURE PCP: [x ] YES [ ] NO [ ] not listed Active Outpatient Medications (including Supplies): Active Outpatient [...] NAUSEA/VOMITING 6) PROPRANOLOL HCL 10MG TAB TAKE ONE-HALF TABLET BY MOUTH TWICE ACTIVE A DAY 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 Indication: FOR SBP PROPHYLAXIS 8) TABLET CUTTER USE TABLET CUTTER NEEDED ACTIVE Indication: FOR TABLET CUTTING Active Non-VA Medications Status 1) Non-VA AMPHETAMINE/DEXTROAMPHET [...] BY MOUTH ONCE A DAY ACTIVE NEEDED 14 Total Medications /es/ WAHIED GENDI, MD Staff Physician, Emergency Department Signed: 07/27/2024 17:32 Receipt Acknowledged By: 07/30/2024 05:48 /loly/ AMY PA-[place] NURSE PRACTITIONER ELIZABETH COATES [facility]
--- OUTSIDE RECORDS SUMMARY | 2024-10-08 17:12 | XMS_ITS ---
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 Date/Time Encounter Type Encounter Description Reason Provider Source Aug 02, 2024 11:31 AM MED NUTRITION INDIV SUBSEQ NUTRITION/DIETETI CS-INDIVIDUAL ICD-10-CM C80.1 Malignant (primary) neoplasm, unspecified SHAKILA SPENCER Abdiel Encounter Template Text not used by [place] Assessments - Encounter Diagnoses This section includes the primary and secondary diagnoses documented for the Encounter. Date/Time Primary/Secondary Diagnosis Diagnosis Name Provider Source Aug 02, 2024 02:31 PM PRIMARY Malignant (primary) neoplasm, unspecified SHAKILA SPENCER [facility] Aug 02, 2024 02:31 PM SECONDARY Dietary counseling and surveillance SHAKILA SPENCER [facility] Aug 02, 2024 02:31 PM SECONDARY Malignant neoplasm of head, face and neck SHAKILA SPENCER [facility] Plan of Treatment: Future Appointments (+ 6 months) and Future Tests (+/- 45 days) The Plan of Treatment section includes future care activities for the patient from all [place] treatmentfacilities. This section includes future appointments and future orders which are active, pending or scheduled. Future Appointments This section includes appointments that were scheduled to occur 6 months from the date of the Encounter, up to a maximum of 20 appointments. The data comes from all [place] treatment facilities. Appointment Date/Time Appointment Type Appointme nt Facility Name Aug 10, 2024 11:00 AM AMBULATORY - MEDICINE [facility] Aug 10, 2024 11:31 AM AMBULATORY - MEDICINE [facility] Aug 10, 2024 11:59 AM AMBULATORY - MEDICINE [facility] Aug 16, 2024 10:00 AM AM[facility]UL[facility]ORY - MEDICINE [facility] Aug 17, 2024 08:30 AM AMBULATORY - MEDICINE [facility] Aug 17, 2024 09:00 AM AMBULATORY - MEDICINE [facility] Aug 17, 2024 09:30 AM AMBULATORY - MEDICINE [facility] Aug 23, 2024 12:00 PM AMBULATORY - NONE [facility] Aug 31, 2024 02:00 PM AMBULATORY - MEDICINE [facility] Sep 07, 2024 11:00 AM AMBULATORY - MEDICINE [facility] Sep 07, 2024 01:00 PM AMBULATORY - MEDICINE [facility] Oct 15, 2024 03:00 PM AMBULATORY - SURGERY . Gerry DELACRUZ [facility] Oct 19, 2024 02:00 PM AMBULATORY - NONE [facility] H[facility] Active, Pending, and Scheduled Orders This section includes a listing of several types of active, pending, and scheduled orders, including clinic medications orders, diagnostic test orders, procedure orders and consult orders; where the start date of the order is 45 days before the date of the Encounter or 45 days after the date of theEncounter. The data comes from all [facility] facilities. Test Date/Time Test Type Test Details Facility Name Jul 17, 2024 12:00 AM Laboratory - Blood Bank Order FRESH FROZEN PLASMA - LAB VBECS - NO SPECIMEN REQUIRED [facility] Jul 17, 2024 12:00 AM Laboratory - Blood Bank Order RED BLOOD CELLS - LAB VBECS - NO SPECIMEN REQUIRED [facility] Jul 17, 2024 06:13 PM Laboratory - Blood Bank Order TYPE & SCREEN - LAB BLOOD [facility] Jul 17, 2024 06:13 PM Laboratory - Blood Bank Order DIRECT ANTIGLOBULIN TEST - LAB BLOOD STAT [facility] Jul 18, 2024 12:00 AM Laboratory - Blood Bank Order PLATELETS - LAB VBECS - NO SPECIMEN REQUIRED [facility] Aug 10, 2024 12:00 AM Laboratory - Blood Bank Order RED BLOOD CELLS - LAB VBECS - NO SPECIMEN REQUIRED JOANN [facility] Aug 10, 2024 02:00 PM Laboratory - Blood Bank Order TYPE & SCREEN - LAB BLOOD [facility] Aug 10, 2024 05:43 PM Laboratory - Chemistry Order LIPASE GREEN LI/HEP BLD/PLAS PLASMA STAT I ONCE [facility] Aug 10, 2024 05:44 PM Laboratory - Microbiology Order BLOOD CULT (SET 2) B D BLD. BOTTLE (SET 2) BLOOD JOANN I NOW [facility] Aug 11, 2024 02:00 AM Laboratory - Chemistry Order CBC BLOOD WC [facility] Aug 14, 2024 02:00 AM Laboratory - Chemistry Order CBC BLOOD WC [facility] Aug 15, 2024 02:00 AM Laboratory - Chemistry Order CBC BLOOD WC [facility] Aug 16, 2024 12:00 AM Laboratory - Chemistry Order CBC BLOOD SP [facility] Aug 16, 2024 08:00 PM Laboratory - Chemistry Order CBC BLOOD LC [facility] Aug 17, 2024 08:00 PM Laboratory - Chemistry Order CBC BLOOD LC [facility] Lab Results: +/- 30 days [...] Interpretation Reference Range Specimen Type Comment Aug 31, 2024 02:04 PM [facility] COMPREHENSIVE METABOLIC PANEL PLASMA Specimen Type: PLASMA Comment: No hemolysis noted. Ordering Provider: TONY SIMMONS Report Released Date/Time: Aug 27, 2024 12:35 PM Reporting Lab: [address] [address] Performing Lab: [address] [address] CREATININE 0.90 mg/dL 0.7-1.3 UREA NITROGEN 26.4 [...] 93.6 >60 Aug 31, 2024 02:04 PM [facility] CBC BLOOD Specimen Type: BLOOD No comment entered. Ordering Provider: TONY SIMMONS Report Released Date/Time: Aug 27, 2024 12:35 PM Reporting Lab: [address] [address] Performing Lab: [address] [address] WBC 4.7 10*3/uL 3.6-11.2 RBC 3.54 10*6/uL [...] 2.10-8.00 Aug 17, 2024 03:34 PM [facility] TSH W/ REFLEX FT4 (STL) PLASMA Specimen Type: PLASMA No comment entered. Ordering Provider: TONY SIMMONS Report Released Date/Time: Aug 10, 2024 12:01 PM Reporting Lab: [address] [address] Performing Lab: [address] [address] TSH 4.570 u[IU]/mL 0.47-5 Aug 17, 2024 03:34 PM [facility] COMPREHENSIVE METABOLIC PANEL PLASMA Specimen Type: PLASMA Comment: No hemolysis noted. Ordering Provider: TONY SIMMONS Report Released Date/Time: Aug 10, 2024 12:01 PM Reporting Lab: [address] [address] Performing Lab: [address] [address] CREATININE 0.85 mg/dL 0.7-1.3 UREA NITROGEN 11.5 [...] 95.2 >60 Aug 17, 2024 03:34 PM [facility] CBC BLOOD Specimen Type: BLOOD Comment: No Clots Ordering Provider: TONY SIMMONS Report Released Date/Time: Aug 10, 2024 12:01 PM Reporting Lab: [address] [address] Performing Lab: [address] [address] WBC 5.0 10*3/uL 3.6-11.2 RBC 2.83 10*6/uL [...] 4.9 1.0-7.0 Aug 15, 2024 07:20 AM [facility] CBC BLOOD Specimen Type: BLOOD Comment: No clots detected in specimen. Ordering Provider: CASH CLOUD Report Released Date/Time: Aug 12, 2024 01:47 PM Reporting Lab: [facility] [address] [address] Performing Lab: [address] [address] WBC 4.9 10*3/uL 3.6-11.2 RBC 2.93 10*6/uL [...] 2.10-8.00 Aug 15, 2024 04:54 AM [facility] GLUCOSE,BLOOD-poct (STL) BLOOD Specimen Type : BLOOD Comment: Test Performed by: [id number] Meter #: [id number] Ordering Provider: DEIRDRE WILD Report Released Date/Time: Aug 15, 2024 05:21 AM Reporting Lab: [address] [address] Performing Lab: [address] [address] GLUCOSE,BLOOD-poct (STL) 112 mg/dL H 72-99 Aug 14, 2024 08:30 PM [facility] CRP PLASMA Specimen Type: PLASM A No comment entered. Ordering Provider: CASH CLOUD Report Released Date/Time: Aug 12, 2024 10:14 AM Reporting Lab: [address] [address] Performing Lab: [address] [address] CRP 0.7 mg/dL H 0-0.5 Aug 14, 2024 08:30 PM [facility] CBC BLOOD Specimen Type: BLOOD No comment entered. Ordering Provider: GILSON OG Report Released Date/Time: Aug 10, 2024 04:01 PM Reporting Lab: [address] [address] Performing Lab: [address] [address] WBC 4.6 10*3/uL 3.6-11.2 RBC 2.83 10*6/uL [...] 2.10-8.00 Aug 14, 2024 07:54 PM [facility] GLUCOSE,BLOOD-poct (STL) BLOOD Specimen Type : BLOOD Comment: Test Performed by: [id number] Meter #: [id number] Ordering Provider: DEIRDRE WILD Report Released Date/Time: Aug 14, 2024 08:15 PM Reporting Lab: [address] [address] Performing Lab: [address] [address] GLUCOSE,BLOOD-poct (STL) 112 mg/dL H 72-99 Aug 14, 2024 04:10 PM [facility] GLUCOSE,BLOOD-poct (STL) BLOOD Specimen Type: BLOOD Comment: Test Performed by: [id number] Meter #: [id number] Ordering Provider: DEIRDRE WILD Report Released Date/Time: Aug 14, 2024 04:43 PM Reporting Lab: [address] [address] Performing Lab: [address] [address] GLUCOSE,BLOOD-poct (STL) 115 mg/dL H 72-99 Aug 14, 2024 02:05 PM [facility] COMPREHENSIVE METABOLIC PANEL PLASMA Specimen Type: PLASMA Comment: No hemolysis noted. Ordering Provider: GILSON OG Report Released Date/Time: Aug 14, 2024 06:56 AM Reporting Lab: [address] [address] Performing Lab: [address] [address] CREATININE 0.75 mg/dL 0.7-1.3 UREA NITROGEN 9.3 [...] 98.9 >60 Aug 14, 2024 02:05 PM [facility] CBC BLOOD Specimen Type: BLOOD Comment: No platelet clots or clumping detected. Ordering Provider: GILSON OG Report Released Date/Time: Aug 10, 2024 04:01 PM Reporting Lab: [address] [address] Performing Lab: [address] [address] WBC 4.6 10*3/uL 3.6-11.2 RBC 3.06 10*6/uL [...] 10*3/uL 2.10-8.00 Aug 14, 2024 10:12 AM [facility] GLUCOSE,BLOOD-poct (STL) BLOOD Specimen Type: BLOOD Comment: Test Performed by: [id number] Meter #: [id number] Ordering Provider: DEIRDRE WILD Report Released Date/Time: Aug 14, 2024 10:13 AM Reporting Lab: [facility] [address] [facility] [address] Performing Lab: [facility] [address] [place] [address] GLUCOSE,BLOOD-poct (L) 112 mg/dL H 72-99 Aug 14, 2024 09:20 AM [facility] PT/INR NEW (STL-MA) PLASMA Specimen Type: PLAS MA No comment entered. Ordering Provider: GILSON OG Report Released Date/Time: Aug 14, 2024 09:06 AM Reporting Lab: [facility] [address] [facility] [address] Performing Lab: [place] [address] [facility] [address] PROTIME 13.6 s H 9.4-12.5 INR VALUE 1.2 {INR} Aug 14, 2024 06:51 AM [facility] CBC BLOOD Specimen Type: BLOOD No comment entered. Ordering Provider: CASH CLOUD Report Released Date/Time: Aug 12, 2024 01:47 PM Reporting Lab: [place] [address] [facility] [address] Performing Lab: [address] [address] WBC 3.8 10*3/uL 3.6-11.2 RBC 2.56 10*6/uL [...] 2.10-8.00 Aug 14, 2024 06:03 AM [facility] GLUCOSE,BLOOD-poct (STL) BLOOD Specimen Type: BLOOD Comment: Test Performed by: [id number] Meter #: [id number] Ordering Provider: DEIRDRE WILD Report Released Date/Time: Aug 14, 2024 06:07 AM Reporting Lab: [address] [address] Performing Lab: [address] [address] GLUCOSE,BLOOD-poct (STL) 114 mg/dL H 72-99 Aug 13, 2024 09:11 PM [facility] GLUCOSE,BLOOD-poct (STL) BLOOD Specimen Type: BLOOD Comment: Test Performed by: [id number] Meter #: [id number] Ordering Provider: DEIRDRE WILD Report Released Date/Time: Aug 13, 2024 09:40 PM Reporting Lab: [address] [address] Performing Lab: [address] [address] GLUCOSE,BLOOD-poct (STL) 160 mg/dL H 72-99 Aug 13, 2024 07:10 PM [facility] COMPREHENSIVE METABOLIC PANEL PLASMA Specimen Type: PLASMA Comment: No hemolysis noted. Ordering Provider: GILSON OG Report Released Date/Time: Aug 14, 2024 07:03 AM Reporting Lab: [address] [address] Performing Lab: [address] [address] CREATININE 0.75 mg/dL 0.7-1.3 UREA NITROGEN 10.3 [...] 98.9 >60 Aug 13, 2024 07:10 PM [facility] CRP PLASMA Specimen Type: PLASM A No comment entered. Ordering Provider: CASH CLOUD Report Released Date/Time: Aug 12, 2024 10:14 AM Reporting Lab: [facility] [address] [facility] [address] Performing Lab: [address] [address] CRP 0.7 mg/dL H 0-0.5 Aug 13, 2024 07:10 PM [facility] CBC BLOOD Specimen Type: BLOOD No comment entered. Ordering Provider: GILSON OG Report Released Date/Time: Aug 10, 2024 04:01 PM Reporting Lab: [facility] [address] [facility] [address] Performing Lab: [place] [address] [facility] [address] WBC 5.3 10*3/uL 3.6-11.2 RBC 2.67 10*6/uL [...] 2.10-8.00 Aug 13, 2024 04:35 PM [facility] GLUCOSE,BLOOD-poct (STL) BLOOD Specimen Type: BLOOD Comment: Test Performed by: [id number] Meter #: [id number] Ordering Provider: DEIRDRE WILD Report Released Date/Time: Aug 13, 2024 05:18 PM Reporting Lab: [address] [address] Performing Lab: [address] [address] GLUCOSE,BLOOD-poct (STL) 113 mg/dL H 72-99 Aug 13, 2024 02:36 PM [facility] CBC BLOOD Specimen Type: BLOOD No comment entered. Ordering Provider: GILSON OG Report Released Date/Time: Aug 10, 2024 04:01 PM Reporting Lab: [address] [address] Performing Lab: [address] [address] WBC 5.8 10*3/uL 3.6-11.2 RBC 2.77 10*6/uL [...] 2.10-8.00 Aug 13, 2024 11:37 AM [facility] GLUCOSE,BLOOD-poct (STL) BLOOD Specimen Type: BLOOD Comment: Test Performed by: [id number] Meter #: [id number] Ordering Provider: DEIRDRE WILD Report Released Date/Time: Aug 13, 2024 11:38 AM Reporting Lab: [address] [address] Performing Lab: [address] [address] GLUCOSE,BLOOD-poct (STL) 131 mg/dL H 72-99 Aug 13, 2024 08:06 AM [facility] CBC BLOOD Specimen Type: BLOOD Comment: no clot Ordering Provider: CASH CLOUD Report Released Date/Time: Aug 12, 2024 01:47 PM Reporting Lab: [address] [address] Performing Lab: [address] [address] WBC 3.0 10*3/uL L 3.6-11.2 RBC 2.61 [...] 2.10-8.00 Aug 13, 2024 04:45 AM [facility] GLUCOSE,BLOOD-poct (STL) BLOOD Specimen Type: BLOOD Comment: Test Performed by: [id number] Meter #: [id number] Ordering Provider: DEIRDRE WILD Report Released Date/Time: Aug 13, 2024 06:18 AM Reporting Lab: [address] [address] Performing Lab: [address] [address] GLUCOSE,BLOOD-poct (STL) 139 mg/dL H 72-99 Aug 12, 2024 10:10 PM [facility] GLUCOSE,BLOOD-poct (STL) BLOOD Specimen Type: BLOOD Comment: Test Performed by: [id number] Meter #: [id number] Ordering Provider: DEIRDRE WILD Report Released Date/Time: Aug 12, 2024 10:50 PM Reporting Lab: [address] [address] Performing Lab: [address] [address] GLUCOSE,BLOOD-poct (STL) 105 mg/dL H 72-99 Aug 12, 2024 08:48 PM [facility] CBC BLOOD Specimen Type: BLOOD Comment: SEE PREVIOUS DIFFERENTIAL ON 08/12/24 @ 1807 Ordering Provider: GILSON OG Report Released Date/Time: Aug 10, 2024 04:01 PM Reporting Lab: [facility] [address] [facility] [address] Performing Lab: [address] [address] WBC 5.0 10*3/uL 3.6-11.2 RBC 2.78 10*6/uL [...] 6.5 1.0-7.0 Aug 12, 2024 08:48 PM [facility] CRP PLASMA Specimen Type: PLASM A No comment entered. Ordering Provider: CASH CLOUD Report Released Date/Time: Aug 12, 2024 10:14 AM Reporting Lab: [place] [address] [facility] [address] Performing Lab: [address] [address] CRP 0.6 mg/dL H 0-0.5 Aug 12, 2024 04:51 PM [facility] GLUCOSE,BLOOD-poct (STL) BLOOD Specimen Type: BLOOD Comment: Test Performed by: [id number] Meter #: [id number] Ordering Provider: DEIRDRE WILD Report Released Date/Time: Aug 12, 2024 05:07 PM Reporting Lab: [address] [address] Performing Lab: [address] [address] GLUCOSE,BLOOD-poct (STL) 135 mg/dL H 72-99 Aug 12, 2024 02:33 PM [facility] CBC BLOOD Specimen Type: BLOOD No comment entered. Ordering Provider: GILSON OG Report Released Date/Time: Aug 10, 2024 04:01 PM Reporting Lab: [address] [address] Performing Lab: [address] [address] WBC 4.0 10*3/uL 3.6-11.2 RBC 2.56 10*6/uL [...] 2.10-8.00 Aug 12, 2024 11:51 AM [facility] GLUCOSE,BLOOD-poct (STL) BLOOD Specimen Type: BLOOD Comment: Test Performed by: [id number] Meter #: [id number] Ordering Provider: DEIRDRE WILD Report Released Date/Time: Aug 12, 2024 12:26 PM Reporting Lab: [address] [address] Performing Lab: [address] [address] GLUCOSE,BLOOD-poct (L) 139 mg/dL H 72-99 Aug 12, 2024 07:35 AM [facility] CBC BLOOD Specimen Type: BLOOD Comment: prev diff 08/11/24. Ordering Provider: GILSON OG Report Released Date/Time: Aug 10, 2024 04:01 PM Reporting Lab: [address] [address] Performing Lab: [address] [address] WBC 3.0 10*3/uL L 3.6-11.2 RBC 2.54 [...] 20 Aug 12, 2024 05:49 AM [facility] GLUCOSE,BLOOD-poct (STL) BLOOD Specimen Type: BLOOD Comment: Test Performed by: [id number] Meter #: [id number] Ordering Provider: DEIRDRE WILD Report Released Date/Time: Aug 12, 2024 05:50 AM Reporting Lab: [address] [address] Performing Lab: [address] [address] GLUCOSE,BLOOD-poct (L) 112 mg/dL H 72-9 9 Aug 12, 2024 01:45 AM [facility] CBC BLOOD Specimen Type: BLOOD Comment: SEE PREVIOUS DIFFERENTIAL ON 08/12/24 @ 0239 [facility] Ordering Provider: GILSON OG Report Released Date/Time: Aug 10, 2024 04:01 PM Reporting Lab: [place] [address] [facility] [address] Performing Lab: [address] [address] WBC 2.6 10*3/uL L 3.6-11.2 RBC 2.42 [...] 6.4 1.0-7.0 Aug 11, 2024 09:25 PM [facility] CBC BLOOD Specimen Type: BLOOD No comment entered. Ordering Provider: GILSON OG Report Released Date/Time: Aug 10, 2024 04:01 PM Reporting Lab: [place] [address] [facility] [address] Performing Lab: [address] [address] WBC 3.6 10*3/uL 3.6-11.2 RBC 2.54 10*6/uL [...] 2.10-8.00 Aug 11, 2024 09:17 PM [facility] GLUCOSE,BLOOD-poct (STL) BLOOD Specimen Type: BLOOD Comment: Test Performed by: [id number] Meter #: [id number] Ordering Provider: DEIRDRE WILD Report Released Date/Time: Aug 11, 2024 09:21 PM Reporting Lab: [place] [address] [facility] [address] Performing Lab: [address] [address] GLUCOSE,BLOOD-poct (STL) 167 mg/dL H 72-99 Aug 11, 2024 04:42 PM [facility] CBC BLOOD Specimen Type: BLOOD No comment entered. Ordering Provider: YVONNE [place] Report Released Date/Time: Aug 11, 2024 04:41 PM Reporting Lab: [address] [address] Performing Lab: [address] [address] WBC 4.0 10*3/uL 3.6-11.2 RBC 2.74 10*6/uL [...] 2.10-8.00 Aug 11, 2024 04:30 PM [facility] GLUCOSE,BLOOD-poct (STL) BLOOD Specimen Type: BLOOD Comment: Test Performed by: [id number] Meter #: [id number] Ordering Provider: DEIRDRE WILD Report Released Date/Time: Aug 11, 2024 06:06 PM Reporting Lab: [place] [phone] Performing Lab: [place] [phone] GLUCOSE,BLOOD-poct (STL) 95 mg/dL 72-99 Aug 11, 2024 11:08 AM [facility] GLUCOSE,BLOOD-poct (STL) BLOOD Specimen Type: BLOOD Comment: Test Performed by: [id number] Meter #: [id number] Ordering Provider: DEIRDRE WILD Report Released Date/Time: Aug 11, 2024 11:10 AM Reporting Lab: [place] [phone] Performing Lab: [place] [phone] GLUCOSE,BLOOD-poct (STL) 117 mg/dL H 72-99 Aug 11, 2024 06:00 AM [facility] HEPATIC FUNTION PANEL (STL) PLASMA Specimen Ty pe: PLASMA No comment entered. Ordering Provider: GILSON OG Report Released Date/Time: Aug 10, 2024 04:02 PM Reporting Lab: [place] [address] Performing Lab: [place] [phone] PROTEIN 5.4 g/dL L 6-8.6 ALBUMIN 2.6 g/dL L 3.4-5 TOTAL BILIRUBIN 0.8 mg/dL 0.2-1.2 ALKALINE PHOSPHATASE 72 U/L 40-150 AST/SGOT 28 U/L 5-34 ALT/SGPT 10 U/L 8-40 CONJ. BILIRUBIN 0.4 mg/dL 0-0.5 Aug 11, 2024 06:00 AM [facility] IRON/TIBC PROFILE SERUM Specimen Type: SERUM No comment entered. Ordering Provider: GILSON OG Report Released Date/Time: Aug 10, 2024 04:02 PM Reporting Lab: [address] [address] Performing Lab: [address] [address] TIBC 263 ug/dL 250-450 TRANSFERRIN 210 mg/dL 163-344 IRON SATURATION 8 L 20-50 IRON 21 ug/dL L 65-175 Aug 11, 2024 06:00 AM [facility] PT/INR NEW (STL-MA) PLASMA Specimen Type: PLAS MA No comment entered. Ordering Provider: GILSON OG Report Released Date/Time: Aug 10, 2024 06:20 PM Reporting Lab: [address] [address] Performing Lab: [address] [address] PROTIME 15.5 s H 9.4-12.5 INR VALUE 1.4 {INR} Aug 11, 2024 06:00 AM [facility] APTT PLASMA Specimen Type: PLASM A No comment entered. Ordering Provider: GILSON OG Report Released Date/Time: Aug 10, 2024 06:20 PM Reporting Lab: [address] [address] Performing Lab: [address] [address] APTT 25.5 s L 26.7-39.9 Aug 11, 2024 06:00 AM [facility] CBC BLOOD Specimen Type: BLOOD No comment entered. Ordering Provider: GILSON OG Report Released Date/Time: Aug 10, 2024 04:01 PM Reporting Lab: [address] [address] Performing Lab: [address] [address] WBC 2.4 10*3/uL L 3.6-11.2 RBC 2.42 [...] 2.10-8.00 Aug 10, 2024 09:00 PM [facility] BASIC METABOLIC PANEL PLASMA Specimen Type: PL ASMA Comment: No hemolysis noted. Ordering Provider: GILSON OG Report Released Date/Time: Aug 10, 2024 04:01 PM Reporting Lab: [address] [address] Performing Lab: [address] [address] CREATININE 0.84 mg/dL 0.7-1.3 UREA NITROGEN 16.8 mg/dL 9.0-25.0 GLUCOSE 104 mg/dL H 72-99 SODIUM 133 meq/L L 136-145 POTASSIUM 3.5 meq/L 3.5-5 CHLORIDE 103 meq/L 98-107 CARBON DIOXIDE 23 meq/L 22-31 CALCIUM 8.4 mg/dL 8.4-10.4 EGFR (CKD-EPI 2020) 95.6 >60 Aug 10, 2024 09:00 PM [facility] CBC BLOOD Specimen Type: BLOOD No comment entered. Ordering Provider: GILSON OG Report Released Date/Time: Aug 10, 2024 04:01 PM Reporting Lab: [facility] [address] [address] Performing Lab: [facility] [address] [address] WBC 4.3 10*3/uL 3.6-11.2 RBC 2.22 10*6/uL [...] 10*3/uL 2.10-8.00 Aug 10, 2024 06:30 PM [facility] MRSA SURVL NARES DNA NARES Specimen [...] Aug 10, 2024 04:01 PM Reporting Lab: [facility] [address] [facility] [address] Performing Lab: [address] [address] MRSA SURVL NARES DNA Negative Negative Aug 10, 2024 06:02 PM [facility] GLUCOSE,BLOOD-poct (STL) BLOOD Specimen Type: BLOOD Comment: Test Performed by: [id number] Meter #: [id number] Ordering Provider: YASIR SANZ MD Report Released Date/Time: Aug 10, 2024 06:04 PM Reporting Lab: [address] [address] Performing Lab: [address] [address] GLUCOSE,BLOOD-poct (STL) 94 mg/dL 72-99 Aug 10, 2024 02:12 PM [facility] PT/INR NEW (STL-MA) PLASMA Specimen Type: PLAS MA No comment entered. Ordering Provider: YASIR SANZ MD Report Released Date/Time: Aug 10, 2024 02:00 PM Reporting Lab: [place] [address] [facility] [address] Performing Lab: [address] [address] PROTIME 13.8 s H 9.4-12.5 INR VALUE 1.2 {INR} Aug 10, 2024 02:12 PM [facility] APTT PLASMA Specimen Type: PLASM A No comment entered. Ordering Provider: YASIR SANZ MD Report Released Date/Time: Aug 10, 2024 02:00 PM Reporting Lab: [place] [address] [facility] [address] Performing Lab: [address] [address] APTT 20.1 s L 26.7-39.9 Aug 10, 2024 11:30 AM [facility] TSH W/ REFLEX FT4 (STL) PLASMA Specimen Type: PLASMA No comment entered. Ordering Provider: TONY SIMMONS Report Released Date/Time: Aug 02, 2024 12:33 PM Reporting Lab: [place] [address] [place] [phone] Performing Lab: [place] [address] [address] [facility] [address] TSH 3.991 u[IU]/mL 0.47-5 Aug 10, 2024 11:30 AM [facility] COMPREHENSIVE METABOLIC PANEL PLASMA Specimen Type: PLASMA Comment: No hemolysis noted. Ordering Provider: TONY SIMMONS Report Released Date/Time: Aug 02, 2024 12:33 PM Reporting Lab: [place] [address] [address] [facility] [address] Performing Lab: [place] [address] [facility] [address] CREATININE 0.82 mg/dL 0.7-1.3 UREA NITROGEN 21.7 [...] 96.3 >60 Aug 10, 2024 11:30 AM [facility] CBC BLOOD Specimen Type: BLOOD No comment entered. Ordering Provider: OTNY SIMMONS Report Released Date/Time: Aug 02, 2024 12:33 PM Reporting Lab: [address] [address] Performing Lab: [address] [address] WBC 7.4 10*3/uL 3.6-11.2 RBC 2.81 10*6/uL [...] 20 Aug 02, 2024 11:53 AM [facility] PROTEIN ELECTROPHORESIS BLOOD SERUM Specimen Type: SERUM Comment: Reference Range: None Detected NOTE: THIS RESULT IS FLAGGED ABNORMAL Evaluation reveals a restricted band (M-spike) migrating in the gamma globulin region. If not already requested, Immunofixation should be considered. Test Per[facility] by [facility], [address] [place] [address] Tristin Iyer M.D., Ph.D., Director of Laboratories , CLIA [id number] PREVIOUS SUGAR: IgG [place] Ordering Provider: TONY SIMMONS Report Released Date/Time: Jul 13, 2024 01:49 PM Reporting Lab: [address] [address] Performing Lab: [facility] [address] [facility] ALPHA-1 GLOBULIN(SO-PB-STL) 0.4 g/dL H 0.2 [...] H Aug 02, 2024 11:53 AM [facility] IGA (STL) PLASMA Specimen Type: PLASM A Comment: No hemolysis noted. Ordering Provider: TONY SIMMONS Report Released Date/Time: Jul 13, 2024 01:49 PM Reporting Lab: [address] [address] Performing Lab: [address] [address] IGA (STL) 113 mg/dL 63-484 Aug 02, 2024 11:53 AM [facility] IGM (STL) PLASMA Specimen Type: PLASM A Comment: No hemolysis noted. Ordering Provider: TONY SIMMONS Report Released Date/Time: Jul 13, 2024 01:49 PM Reporting Lab: [address] [address] Performing Lab: [address] [address] IGM (STL) 104 mg/dL 22-240 Aug 02, 2024 11:53 AM [facility] IGG (STL) PLASMA Specimen Type: PLASM A Comment: No hemolysis noted. Ordering Provider: TONY SIMMONS Report Released Date/Time: Jul 13, 2024 01:49 PM Reporting Lab: [place] [address] [facility] [address] Performing Lab: [place] [address] [facility] [address] IGG (STL) 1898 mg/dL H 540-1822 Aug 02, 2024 11:53 AM [facility] TSH W/ REFLEX FT4 (STL) PLASMA Specimen Type: PLASMA No comment entered. Ordering Provider: TONY SIMMONS Report Released Date/Time: Jul 13, 2024 01:49 PM Reporting Lab: [address] [address] Performing Lab: [address] [address] TSH 2.182 u[IU]/mL 0.47-5 Aug 02, 2024 11:53 AM [facility] KAPPA/LAMBDA FREE LC PANEL (STL-PB) SERUM Spe cimen Type: SERUM No comment entered. Ordering Provider: TONY SIMMONS Report Released Date/Time: Jul 13, 2024 01:49 PM Reporting Lab: [place] [address] [facility] [address] Performing Lab: [address] [address] KAPPA FREE LC (STL) 102.7 mg/L H 2.4-20.7 LAMBDA FREE LC (STL) 32.2 mg/L H 4.2-27.7 KAPPA/LAMBDA RATIO (STL) 3.19 H 0.22-1. 74 Aug 02, 2024 11:53 AM [facility] COMPREHENSIVE METABOLIC PANEL PLASMA Specimen Type: PLASMA Comment: No hemolysis noted. Ordering Provider: TONY SIMMONS Report Released Date/Time: Jul 13, 2024 01:49 PM Reporting Lab: [place] [address] [facility] [address] Performing Lab: [address] [address] CREATININE 0.82 mg/dL 0.7-1.3 UREA NITROGEN 12.2 [...] 96.3 >60 Aug 02, 2024 11:53 AM [facility] CBC BLOOD Specimen Type: BLOOD Comment: No Clots in specimen Ordering Provider: TONY SIMMONS Report Released Date/Time: Jul 13, 2024 01:49 PM Reporting Lab: [address] [address] Performing Lab: [address] [address] WBC 2.2 10*3/uL L 3.6-11.2 RBC 3.44 [...] 2.10-8.00 Aug 01, 2024 10:10 AM [facility] GLUCOSE,BLOOD-poct (STL) BLOOD Specimen Type: BLOOD Comment: Test Performed by: [id number] Meter #: [id number] Ordering Provider: SUKHJINDER CHAHAL Report Released Date/Time: Aug 01, 2024 10:17 AM Reporting Lab: [address] [address] Performing Lab: [address] [address] GLUCOSE,BLOOD-poct (STL) 101 mg/dL H 72-99 Jul 27, 2024 01:54 PM [facility] TROPONIN I PLASMA Specimen Type: PLASM A Comment: No hemolysis noted. Ordering Provider: ELIZABETH COATES Report Released Date/Time: Jul 27, 2024 03:39 PM Reporting Lab: [address] [address] Performing Lab: [address] [address] TROPONIN I 0.011 ng/mL 0-0.033 Jul 27, 2024 01:54 PM [facility] BRAIN NATRIURETIC PEPTIDE PLASMA Specimen Type : PLASMA No comment entered. Ordering Provider: ELIZABETH COATES Report Released Date/Time: Jul 27, 2024 03:39 PM Reporting Lab: [address] [address] Performing Lab: [address] [address] BRAIN NATRIURETIC PEPTIDE 257.2 pg/mL H 0- 100 Jul 27, 2024 01:54 PM [facility] COMPREHENSIVE METABOLIC PANEL PLASMA Specimen Type: PLASMA Comment: No hemolysis noted. Ordering Provider: ELIZABETH COATES Report Released Date/Time: Jul 27, 2024 03:39 PM Reporting Lab: [address] [address] Performing Lab: [address] [address] CREATININE 0.70 mg/dL 0.7-1.3 UREA NITROGEN 7.4 [...] 101.0 >60 Jul 27, 2024 01:54 PM [facility] CBC BLOOD Specimen Type: BLOOD No comment entered. Ordering Provider: ELIZABETH COATES Report Released Date/Time: Jul 27, 2024 03:39 PM Reporting Lab: [address] [address] Performing Lab: [address] [address] WBC 3.2 10*3/uL L 3.6-11.2 RBC 3.12 [...] 10*3/uL 2.10-8.00 Jul 21, 2024 02:00 PM [facility] FOLATE ([facility]) SERUM Specimen Type: SERUM No comment entered. Ordering Provider: JORJE DENSON Report Released Date/Time: Jul 21, 2024 12:54 PM Reporting Lab: [place] [address] [facility] [address] Performing Lab: [place] [address] [facility] [address] FOLATE ([facility]) 9.1 ng/mL 7-20 Jul 21, 2024 02:00 PM [facility] IRON/TIBC PROFILE SERUM Specimen Type: SERUM No comment entered. Ordering Provider: JORJE DENSON Report Released Date/Time: Jul 21, 2024 12:54 PM Reporting Lab: [place] [address] [facility] [address] Performing Lab: [address] [address] TIBC 243 ug/dL L 250-450 TRANSFERRIN 194 mg/dL 163-344 IRON SATURATION 20 20-50 IRON 49 ug/dL L 65-175 Jul 21, 2024 02:00 PM [facility] B12 SERUM Specimen Type: SERUM No comment entered. Ordering Provider: JORJE DENSON Report Released Date/Time: Jul 21, 2024 12:54 PM Reporting Lab: [facility] [address] [facility] [address] Performing Lab: [address] [address] B12 1584 pg/mL H 213-816 Jul 21, 2024 02:00 PM [facility] CBC BLOOD Specimen Type: BLOOD Comment: Manual differential performed 07/20/2024 No clots Ordering Provider: JORJE DENSON Report Released Date/Time: Jul 21, 2024 12:54 PM Reporting Lab: [address] [address] Performing Lab: [address] [address] WBC 5.6 10*3/uL 3.6-11.2 RBC 2.87 10*6/uL [...] H 1.0-7.0 Jul 20, 2024 08:55 PM [facility] PT/INR NEW (STL-MA) PLASMA Specimen Type: PLAS MA No comment entered. Ordering Provider: AURA ZACARIAS Report Released Date/Time: Jul 18, 2024 01:30 PM Reporting Lab: [address] [address] Performing Lab: [address] [address] PROTIME 12.8 s H 9.4-12.5 INR VALUE 1.1 {INR} Jul 20, 2024 08:55 PM [facility] BASIC METABOLIC PANEL PLASMA Specimen Type: PL ASMA Comment: No hemolysis noted. Ordering Provider: AURA ZACARIAS Report Released Date/Time: Jul 18, 2024 01:30 PM Reporting Lab: [address] [address] Performing Lab: [address] [address] CREATININE 0.74 mg/dL 0.7-1.3 UREA NITROGEN 15.1 mg/dL 9.0-25.0 GLUCOSE 121 mg/dL H 72-99 SODIUM 130 meq/L L 136-145 POTASSIUM 3.7 meq/L 3.5-5 CHLORIDE 100 meq/L 98-107 CARBON DIOXIDE 20 meq/L L 22-31 CALCIUM 8.5 mg/dL 8.4-10.4 EGFR (CKD-EPI 2020) 99.3 >60 Jul 20, 2024 08:55 PM [facility] CBC BLOOD Specimen Type: BLOOD No comment entered. Ordering Provider: AURA ZACARIAS Report Released Date/Time: Jul 18, 2024 01:30 PM Reporting Lab: [address] [address] Performing Lab: [address] [address] WBC 5.1 10*3/uL 3.6-11.2 RBC 2.90 10*6/uL [...] 10*3/uL 2.10-8.00 Jul 20, 2024 01:13 PM [facility] CBC BLOOD Specimen Type: BLOOD No comment entered. Ordering Provider: AURA ZACARIAS Report Released Date/Time: Jul 18, 2024 01:30 PM Reporting Lab: [place] [address] [address] Performing Lab: [address] [address] WBC 5.6 10*3/uL 3.6-11.2 RBC 3.11 10*6/uL [...] 2.10-8.00 Jul 19, 2024 06:42 AM [facility] PT/INR NEW (STL-MA) PLASMA Specimen Type: PLAS MA No comment entered. Ordering Provider: AURA ZACARIAS Report Released Date/Time: Jul 18, 2024 01:30 PM Reporting Lab: [address] [address] Performing Lab: [address] [address] PROTIME 16.4 s H 9.4-12.5 INR VALUE 1.5 {INR} Jul 19, 2024 06:42 AM [facility] BASIC METABOLIC PANEL PLASMA Specimen Type: PL ASMA Comment: No hemolysis noted. Ordering Provider: AURA ZACARIAS Report Released Date/Time: Jul 18, 2024 01:30 PM Reporting Lab: [address] [address] Performing Lab: [address] [address] CREATININE 0.94 mg/dL 0.7-1.3 UREA NITROGEN 23.8 mg/dL 9.0-25.0 GLUCOSE 87 mg/dL 72-99 SODIUM 129 meq/L L 136-145 POTASSIUM 3.4 meq/L L 3.5-5 CHLORIDE 102 meq/L 98-107 CARBON DIOXIDE 20 meq/L L 22-31 CALCIUM 8.1 mg/dL L 8.4-10.4 EGFR (CKD-EPI 2020) 88.9 >60 Jul 19, 2024 06:42 AM [facility] CBC BLOOD Specimen Type: BLOOD No comment entered. Ordering Provider: AURA ZACARIAS Report Released Date/Time: Jul 18, 2024 01:30 PM Reporting Lab: [facility] [address] [place] [address] Performing Lab: [address] [address] WBC 5.1 10*3/uL 3.6-11.2 RBC 2.45 10*6/uL [...] H 1.0-7.0 Jul 18, 2024 08:51 PM [facility] CBC BLOOD Specimen Type: BLOOD No comment entered. Ordering Provider: AURA ZACARIAS Report Released Date/Time: Jul 18, 2024 01:30 PM Reporting Lab: [address] [address] Performing Lab: [address] [address] WBC 6.2 10*3/uL 3.6-11.2 RBC 2.44 10*6/uL [...] 10*3/uL 2.10-8.00 Jul 18, 2024 04:19 PM [facility] CBC BLOOD Specimen Type: BLOOD No comment entered. Ordering Provider: AURA ZACARIAS Report Released Date/Time: Jul 18, 2024 01:30 PM Reporting Lab: [facility] [address] [place] [address] Performing Lab: [address] [address] WBC 6.1 10*3/uL 3.6-11.2 RBC 2.57 10*6/uL [...] 2.10-8.00 Jul 18, 2024 06:32 AM [facility] LACTIC ACID (STL-PB) PLASMA Specimen Type: NEIL SMA No comment entered. Ordering Provider: CAMDEN PATTON Report Released Date/Time: Jul 17, 2024 07:38 PM Reporting Lab: [address] Performing Lab: [place] [phone] LACTIC ACID (L-PB) 1.3 mmol/L 0.5-2.0 Jul 18, 2024 06:32 AM [facility] PT/INR NEW (L-MA) PLASMA Specimen Type: PLAS MA No comment entered. Ordering Provider: CAMDEN PATTON Report Released Date/Time: Jul 17, 2024 07:38 PM Reporting Lab: [address] [address] Performing Lab: [address] [address] PROTIME 19.1 s H 9.4-12.5 INR VALUE 1.7 {INR} Jul 18, 2024 06:32 AM [facility] CBC BLOOD Specimen Type: BLOOD Comment: HGB Called to : Dr. Posadas MOD at: 0657 on: 07/18/24 by: [email or web address] Critical Verbal Readback Performed Ordering Provider: CAMDEN PATTON Report Released Date/Time: Jul 17, 2024 07:38 PM Reporting Lab: [address] [address] Performing Lab: [address] [address] WBC 7.0 10*3/uL 3.6-11.2 RBC 2.04 10*6/uL [...] 2.10-8.00 Jul 18, 2024 06:32 AM [facility] MAGNESIUM PLASMA Specimen Type: PLASM A Comment: No hemolysis noted. Ordering Provider: CAMDEN PATTON Report Released Date/Time: Jul 17, 2024 07:38 PM Reporting Lab: [place] [address] Performing Lab: [address] [address] MAGNESIUM 1.5 mg/dL L 1.6-2.6 Jul 18, 2024 06:32 AM [facility] VANCOMYCIN (STL) PLASMA Specimen Type: PLASM A No comment entered. Ordering Provider: CAMDEN PATTON Report Released Date/Time: Jul 17, 2024 07:38 PM Reporting Lab: [address] [address] Performing Lab: [address] [address] VANCOMYCIN (STL) 5.0 ug/mL L 10-15 Jul 18, 2024 06:32 AM [facility] PHOSPHOROUS PLASMA Specimen Type: PLASM A Comment: No hemolysis noted. Ordering Provider: CAMDEN PATTON Report Released Date/Time: Jul 17, 2024 07:38 PM Reporting Lab: [facility] [address] [facility] [address] Performing Lab: [facility] [address] [place] [address] PHOSPHOROUS 2.2 mg/dL L 2.3-4.7 Jul 18, 2024 06:32 AM [facility] COMPREHENSIVE METABOLIC PANEL PLASMA Specimen Type: PLASMA Comment: No hemolysis noted. Ordering Provider: CAMDEN PATTON Report Released Date/Time: Jul 17, 2024 07:38 PM Reporting Lab: [place] [address] [facility] [address] Performing Lab: [address] [address] CREATININE 1.08 mg/dL 0.7-1.3 UREA NITROGEN 40.5 [...] >60 Jul 18, 2024 12:05 AM [facility] HGB,HCT,PLT BLOOD Specimen Type: BLOOD No comment entered. Ordering Provider: ROSA VARGAS Report Released Date/Time: Jul 17, 2024 09:07 PM Reporting Lab: [facility] [address] [facility] [address] Performing Lab: [place] [address] [facility] [address] HGB 7.3 g/dL L 13.1-16.8 HCT 21.0 L 38.2-48.4 PLT 64 10*3/uL L 150-400 Jul 17, 2024 07:45 PM [facility] MRSA SURVL NARES DNA NARES [...] Jul 17, 2024 07:38 PM Reporting Lab: [address] [address] Performing Lab: [address] [address] MRSA SURVL NARES DNA Negative Negative Jul 17, 2024 07:36 PM [facility] GLUCOSE,BLOOD-poct (L) BLOOD Specimen Type: BLOOD Comment: Test Performed by: [id number] Meter #: [id number] Ordering Provider: CAMDEN PATTON Report Released Date/Time: Jul 17, 2024 07:48 PM Reporting Lab: [address] [address] Performing Lab: [address] [address] GLUCOSE,BLOOD-poct (L) 98 mg/dL 72-99 Jul 17, 2024 07:35 PM [facility] BLOOD GAS PANEL ABG (L) VENOUS BLOOD Specimen Type : VENOUS BLOOD Comment: normalcy status - Below absolute low-off instrument scale Test Performed by: [id number] Meter #: [id number] Ordering Provider: CAMDEN PATTON Report Released Date/Time: Jul 17, 2024 07:37 PM Reporting Lab: [address] [address] Performing Lab: [address] [address] GEM PH 7.39 7.31-7.41 GEM PCO2 31 [...] 37.0 Jul 17, 2024 07:10 PM [facility] URINALYSIS W/ CX REFLEX (STL-PB) URINE Specim en Type: URINE No comment entered. Ordering Provider: CASEY BOONE Report Released Date/Time: Jul 17, 2024 04:24 PM Reporting Lab: [address] [address] Performing Lab: [address] [address] URINE COLOR Light-Yellow Yellow U.BILIRUBIN Negative mg/dL Negative U.PH 6.0 5.0-8.0 APPEARANCE Clear Clear U.NITRITE Negative mg/dL Negative URN.GLUCOSE Normal mg/dL Negative URN.PROTEIN Negative mg/dL URN.UROBILINOGEN Normal mg/dL Normal URN.BLOOD Negative mg/dL Negative-Trace URN.KETONES Trace mg/dL Negative-Trace URN.LEUK.EST. Negative mg/dL Negative-Tr april URN.SPECIFIC GRAVITY 1.029 Jul 17, 2024 06:25 PM [facility] RETICULOCYTE PANEL BLOOD Specimen Type: BLOO D No comment entered. Ordering Provider: CASEY BOONE Report Released Date/Time: Jul 17, 2024 06:13 PM Reporting Lab: [address] [address] Performing Lab: [address] [address] RETIC RATIO 7.35 H 0.50-2.30 IRF 39.7 H 2.3-13.4 RETICULOCYTE HEMOGLOBIN EQUIVALENT 35.8 pg 28.2-36.6 RETIC COUNT,ABS 0.129 10*6/uL H 0.022-0.10 1 Jul 17, 2024 06:25 PM [facility] HAPTOGLOBIN (STL) PLASMA Specimen Type: PLASM A No comment entered. Ordering Provider: CASEY BOONE Report Released Date/Time: Jul 17, 2024 06:13 PM Reporting Lab: [address] [address] Performing Lab: [address] [address] HAPTOGLOBIN (STL) 93 mg/dL 44-215 Jul 17, 2024 06:25 PM [facility] LDH PLASMA Specimen Type: PLASM A No comment entered. Ordering Provider: CASEY BOONE Report Released Date/Time: Jul 17, 2024 06:13 PM Reporting Lab: [address] [address] Performing Lab: [address] [address] LDH 305 U/L H 125-243 Jul 17, 2024 06:25 PM [facility] CBC BLOOD Specimen Type: BLOOD Comment: HGB Called to : Watson White at: [id number] on:[id number] by: [facility] Critical Verbal Readback Performed Ordering Provider: CAMDEN PATTON Report Released Date/Time: Jul 17, 2024 07:09 PM Reporting Lab: [address] [address] Performing Lab: [facility] [address] [address] WBC 27.6 10*3/uL H 3.6-11.2 RBC 1.76 [...] 2.10-8.00 Jul 17, 2024 04:59 PM [facility] BLOOD GAS PANEL ABG (STL) VENOUS BLOOD Specimen Type : VENOUS BLOOD Comment: Test Performed by: [id number] Meter #: [id number] Ordering Provider: CASEY BOONE Report Released Date/Time: Jul 17, 2024 05:00 PM Reporting Lab: [address] [address] Performing Lab: [address] [address] GEM PH 7.39 7.31-7.41 GEM PCO2 33 [...] 37.0 Jul 17, 2024 04:25 PM [facility] PT/INR NEW (STL-MA) PLASMA Specimen Type: PLAS MA No comment entered. Ordering Provider: CASEY BOONE Report Released Date/Time: Jul 17, 2024 04:24 PM Reporting Lab: [address] [address] Performing Lab: [address] [address] PROTIME 25.3 s H 9.4-12.5 INR VALUE 2.3 {INR} Jul 17, 2024 04:25 PM [facility] MAGNESIUM PLASMA Specimen Type: PLASM A Comment: No hemolysis noted. Ordering Provider: CASEY BOONE Report Released Date/Time: Jul 17, 2024 04:24 PM Reporting Lab: [address] [address] Performing Lab: [address] [address] MAGNESIUM 1.4 mg/dL L 1.6-2.6 Jul 17, 2024 04:25 PM [facility] COVID-19 DIAGNOSTIC (FLU/RSV)(STL) NASOPHARYNX Spec [...] 17, 2024 04:24 PM Reporting Lab: [facility] [address] [facility] [address] Performing Lab: [address] [address] INFLUENZA A Negative Negative INFLUENZA B Negative Negative COVID-19 (STL-PB) Not Detected Not Detec nate RSV (Cepheid) NEGATIVE Negative Jul 17, 2024 04:25 PM [facility] COMPREHENSIVE METABOLIC PANEL PLASMA Specimen Type: PLASMA Comment: No hemolysis noted. Ordering Provider: CASEY BOONE Report Released Date/Time: Jul 17, 2024 04:24 PM Reporting Lab: [address] [address] Performing Lab: [address] [address] CREATININE 1.25 mg/dL 0.7-1.3 UREA NITROGEN 47.0 [...] 63.1 >60 Jul 17, 2024 04:25 PM [facility] CBC BLOOD Specimen Type: BLOOD No comment entered. Ordering Provider: CASEY BOONE Report Released Date/Time: Jul 17, 2024 04:24 PM Reporting Lab: [address] [phone] Performing Lab: [address] [address] WBC 42.4 10*3/uL H 3.6-11.2 RBC 2.20 [...] 2.10-8.00 Jul 13, 2024 12:39 PM [facility] TSH W/ REFLEX FT4 (STL) PLASMA Specimen Type: PLASMA No comment entered. Ordering Provider: TONY SIMMONS Report Released Date/Time: Jun 07, 2024 01:01 PM Reporting Lab: [address] [address] Performing Lab: [facility] [address] [facility] [address] TSH 1.431 u[IU]/mL 0.47-5 Jul 13, 2024 12:39 PM [facility] PHOSPHOROUS PLASMA Specimen Type: PLASM A Comment: No hemolysis noted. Ordering Provider: TONY SIMMONS Report Released Date/Time: Jun 07, 2024 01:01 PM Reporting Lab: [address] [phone] Performing Lab: [address] [address] PHOSPHOROUS 2.4 mg/dL 2.3-4.7 Jul 13, 2024 12:39 PM [facility] MAGNESIUM PLASMA Specimen Type: PLASM A Comment: No hemolysis noted. Ordering Provider: TONY SIMMONS Report Released Date/Time: Jun 07, 2024 01:01 PM Reporting Lab: [address] [address] Performing Lab: [address] [phone] MAGNESIUM 2.0 mg/dL 1.6-2.6 Jul 13, 2024 12:39 PM [facility] CBC BLOOD Specimen Type: BLOOD Comment: no clot Ordering Provider: TONY SIMMONS Report Released Date/Time: Jun 07, 2024 01:01 PM Reporting Lab: [address] [address] Performing Lab: [address] [address] WBC 3.0 10*3/uL L 3.6-11.2 RBC 3.83 [...] 10*3/uL 2.10-8.00 Jul 13, 2024 12:39 PM [facility] COMPREHENSIVE METABOLIC PANEL PLASMA Specimen Type: PLASMA Comment: No hemolysis noted. Ordering Provider: TONY SIMMONS Report Released Date/Time: Jun 07, 2024 01:01 PM Reporting Lab: [address] [address] Performing Lab: [address] [address] CREATININE 0.75 mg/dL 0.7-1.3 UREA NITROGEN 21.3 [...] 98.9 >60 Jul 13, 2024 12:38 PM [facility] ALPHA-FETOPROTEIN(STL-PB) SERUM Specimen Type : SERUM No comment entered. Ordering Provider: CRYSTAL MASSEY Report Released Date/Time: Jul 04, 2024 03:26 PM Reporting Lab: [facility] [address] [facility] [address] Performing Lab: [facility] [address] [facility] [address] ALPHA-FETOPROTEIN(STL-PB) 16.86 ng/mL H 1- 8.78 Jul 13, 2024 12:37 PM [facility] CARBOHYDRATE Ag SERUM Specimen Type: SERUM Comment: REFERENCE RANGE: <34 U/mL This test was performed using the Siemens chemiluminescent method. Values obtained from different assay methods cannot be used inter- changeably. CA 19-9 levels, regardless of value, should not be interpreted as absolute evidence of the presence or absence of disease. Test Performed by [facility], [facility], [address] [place] [address] Tristin Iyer M.D., Ph.D., Director of Laboratories , [facility] [id number] Ordering Provider: CRYSTAL MASSEY Report Released Date/Time: Jul 04, 2024 03:28 PM Reporting Lab: [facility] [address] [place] [phone] Performing Lab: [facility] [id number] [place] [address] CARBOHYDRATE Ag 61 H SEE BELOW Vital Signs: All taken on the encounter date This section contains inpatient and outpatient Vital Signs collected on the date of the Encounter. Date/Time Temperature Pulse Blood Pressure Respiratory Rate SP02 Pain Height Weight Body Mass Index Source Aug 02, 2024 12:04 PM 97.6 62 113/70 18 100 159.7 22 [facility] N Social History: Smoking Status [...] place. Date/Time Current Smoking Status Comment Facil luiza Jul 17, 2024 04:02 PM ORYX ADMIT TOBACCO SCREEN NO [facility] Tobacco Use History This section includes a history of the smoking, or tobacco-related health factors, that were collected on or before the date of the Encounter. The data comes from the [place] facility where the Encounter took place. Date/Time Smoking Status/Tobacco Use Comment F acility Jan 20, 2023 03:49 PM VA-TOBACCO FORMER USER [facility] Jan 20, 2023 03:49 PM VA-TOBACCO QUIT 15 YRS OR MORE [facility] Feb 06, 2021 04:28 PM VA-TOBACCO FORMER USER [facility] Feb 06, 2021 04:28 PM VA-TOBACCO QUIT 15 YRS OR MORE [facility] Radiology Reports: +/- 30 days [...] BLOOD FLOW ABD/RENAL DOPPLER (COMPLETE): ABRAHAM HAWK [id number] -1955 M Exm Date: AUG 23, 2024@12:12 Req Phys: GILSON OG Pat Loc: [facility]-GEN MED INPT VISIT (Req'g L Img Loc: [facility]-ULTRASOUND [facility] Service: [facility] [address] [place] [address] (Case [id number] COMPLETE) US BLOOD FLOW ABD/RENAL DOPPLER ((US Detailed) CPT:94680 Reason for Study: dopplers Clinical History: Report Status: Verified Date Reported: AUG 23, 2024 Date Verified: AUG 23, 2024 Adobe [employer] E-Sig:/ES/PETROS MCCORD Report: Case [id number], [id number]. US ABDOMEN LTD, SINGLE ORG OR QUADRANT, [...] vasculature. Primary Interpreting Staff: PETROS MCCORD MD (Adobe Ball Mixer) /PETROS SRIVASTAVA [facility] Aug 23, 2024 12:12 PM US ABDOMEN LTD, SINGLE ORG OR QUADRANT: ABRAHAM HAWK [id number] -1955 Ex Date: AUG 23, 2024@12:12 Req Phys: GILSON OG Pat Loc: [facility]-GEN MED INPT VISIT (Req'g L Img Loc: [facility]-ULTRASOUND [facility] Service: Unknown [address] [address] (Case [id number] COMPLETE) US ABDOMEN LTD, SINGLE ORG OR CARLITOS(US Detailed) CPT:04870 Reason for Study: Possible SBP, RUQUS with dopplers, please comment on ascites? Clinical History: Report Status: Verified Date Reported: AUG 23, 2024 Date Verified: AUG 23, 2024 [employer] E-Sig:/ES/PETROS MCCORD Report: Case [id number], [id number]. US ABDOMEN LTD, SINGLE ORG OR QUADRANT, [...] vasculature. Primary Interpreting Staff: PETROS MCCORD MD (Adobe Ball [employer]er) /PETROS SRIVASTAVA [facility] Aug 10, 2024 02:[address] ABD PEL W/CONT & 3D: ABRAHAM HAWK [id number] -1955 M Exm Date: AUG 10, 2024@14:33 Req Phys: YASIR SANZ MD Pat Loc: [facility]-EMERGENCY DEPT 2ND SHIFT (R Img Loc: [facility]-CT IMAGING [facility] Service: Unknown [facility], [address] [address] (Case [id number] COMPLETE) CT ABDOMEN AND PELVIS W/CONTRAST (CT Detailed) CPT:73916 Contrast Media : Non-ionic Iodinated Reason for Study: Abdominal pain, vomiting Clinical History: Responsible Attending: Svetlana Attending Contact Number: [phone] Resident Contact Number: Abdominal pain, vomiting Allergies listed in CPRS chart: Patient has answered NKA Creatinine:CREATININE 0.82 mg/dL 08/10/2024 11:30 /eGFR: STL EGFR (within one year). CREATININE 0.82 mg/dL (08/10/24 11:30) Wt: 152.1 lb [68.99 kg] (08/10/2024 11:31) History of: Renal failure, chronic or acute renal disease: NO Report Status: Verified Date Reported: AUG 10, 2024 Date Verified: AUG 10, 2024 [employer] E-Sig:/ES/PETROS MCCORD Report: Case [id number]. CT ABDOMEN AND PELVIS W/CONTRAST. Gastrointestinal contrast: [...] inguinal hernias. Dictated by Kenneth Albright DO (president/gm production & live experiences). I, Petros Mccord, have reviewed the images and report and concur with these findings. Primary Interpreting Staff: PETROS MCCORD MD (Adobe Ball [employer]er) Primary Interpreting Resident: KENNETH ALBRIGHT, Rn Relief Charge /PETROS REESE [facility] Aug 01, 2024 10:20 AM PET/CT TUMOR IMAGING (SKULL TO MID-THIGH)-P: ABRAHAM HAWK [id number] [facility]-1955 M Exm Date: AUG 01, 2024@10:20 Req Phys: TONY SIMMONS Loc: [facility]-ONCOLOGY IRIS (Req'g Loc) Img Loc: [facility]-PET-CT Service: [address] [address] (Case [id number] COMPLETE) PET/CT TUMOR SKULL BASE TO MID-T(NM Detailed) CPT:95603 CPT Modifiers : PS PET TUMOR SUBSQ TX STRATEGY Reason for Study: Nasopharyngeal cancer (Case [id number] COMPLETE) F-18 FLUORODEOXYGLUCOSE (FDG),PER(NM Detailed) CPT:A9552 Clinical History: Report Status: Verified Date Reported: AUG 01, 2024 Date Verified: AUG 01, 2024 [employer] E-Sig:/LOLY/NATASHA LEIJA Report: PATIENT NAME: ABRAHAM HAWK. CASE #: [id number], [id number]. PROCEDURE: PET/CT study Indication: Nasopharyngeal cancer HISTORY: [...] lytic osseous lesion is noted within the risud-ya-alww. Impression: 1. The previous sites of FDG [...] NEEDED Primary Interpreting Staff: NATASHA LEIJA MD (Adobe Ball Mixer) /PFT NATASHA LEIJA [facility] Jul 27, 2024 03:41 PM CHEST PORTABLE: ABRAHAM HAWK [id number] -1955 M Exm Date: JUL 27, 2024@15:41 Req Phys: GENDI,WAHIED Pat Loc: -EMERGENCY DEPT 2ND SHIFT (R Img Loc: -MAIN RADIOLOGY SUITE Service: Unknown [facility], [address] [place] [address] (Case [id number] COMPLETE) CHEST PORTABLE (RAD Detailed) CPT:74272 Proc Modifiers : Portable Reason for Study: sob Clinical History: Report Status: Verified Date Reported: JUL 27, 2024 Date Verified: JUL 27, 2024 [employer] E-Sig:/ES/Sol Abraham MD Report: CASE [id number]. AP portable view chest. COMPARISON: Chest x-ray [...] advised. Report dictated by Krystian Sultana D.O. (president/gm production & live experiences) Sol Kilgore, have reviewed the images and report and concur with these findings. Primary Interpreting Staff: Sol Abraham MD, Radiologist (Adobe Ball [employer]er) Primary Interpreting Resident: Krystian Sultana D.O., Resident Physician /SOL DHALIWAL [facility] Jul 17, 2024 06:[address] ABD PEL W/CONT & 3D: ABRAHAM HAWK [id number] -1955 M Exm Date: JUL 17, 2024@18:18 Req Phys: CASEY BOONE Pat Loc: 4-C SICU-[facility]/07-17-2024@19:47 Img Loc: [facility]-CT IMAGING [facility] Service: Unknown [facility], [address] [place] [address] (Case [id number] COMPLETE) CT ABDOMEN AND PELVIS W/CONTRAST (CT Detailed) CPT:42215 Contrast Media : Non-ionic Iodinated Reason for Study: septic shock, abd pain Clinical History: Responsible Attending: Nils Attending Contact Number: [phone] Resident Contact Number: Septic shock, Patient with [...] 17, 2024 Date Verified: JUL 17, 2024 Adobe Ball [employer]er E-Sig: Report: CT THORAX W/CONT (PE) [PRINTSET], CT ABDOMEN AND PELVIS W/CONTRAST [PRINTSET] Comparison: 03/17/2022, 04/23/2024 Clinical History: RO PE The study was protocoled and supervised at the local [place] facility. Chest 12 series and 1585 images were subsequently received by the [place] [facility] (NTP) for interpretation. Abdomen and pelvis 9 series and 1365 images were subsequently received by the [place] [facility] (NTP) for interpretation. Total [...] from 09/12/2023. READING PHYSICIAN: Guilherme Talbert M.D. -[phone] 07/17/2024 17:44 PST [facility] [phone] (For Medical Practitioner Use Only) Attention Patients / Veterans: If you have questions or concerns about these test results, please contact your ordering provider or primary care team. Primary Interpreting Staff: RADIOLOGY,OUTSIDE SERVICE, Staff Physician / RADIOLOGY,OUTSIDE SERVICE [facility] Jul 17, 2024 06:[address] PE CHEST W/3D: ABRAHAM HAWK [id number] -1955 M Exm Date: JUL 17, 2024@18:17 Req Phys: CASEY BOONE Loc: 4-C SICU-[facility]/07-17-2024@19:47 Img Loc: [facility]-CT IMAGING [facility] Service: Unknown [facility], [facility] [address] [place] [address] (Case [id number] COMPLETE) CT THORAX W/CONT (PE) (CT Detailed) CPT:88054 Contrast Media : unspecified contrast media Reason for Study: RO PE Clinical History: Responsible Attending: Nils Attending Contact Number: [phone] Resident Contact Number: Patient with HCC and [...] 17, 2024 Date Verified: JUL 17, 2024 Adobe Ball [employer]er E-Sig: Report: CT THORAX W/CONT (PE) [PRINTSET], CT ABDOMEN AND PELVIS W/CONTRAST [PRINTSET] Comparison: 03/17/2022, 04/23/2024 Clinical History: RO PE The study was protocoled and supervised at the local [place] facility. Chest 12 series and 1585 images were subsequently received by the [place] [facility] (NTP) for interpretation. Abdomen and pelvis 9 series and 1365 images were subsequently received by the [place] [facility] (NTP) for interpretation. Total [...] from 09/12/2023. READING PHYSICIAN: Guilherme Talbert M.D. -[phone] 07/17/2024 17:44 [facility] [phone] (For Medical Practitioner Use Only) Attention Patients / Veterans: If you have questions or concerns about these test results, please contact your ordering provider or primary care team. Primary Interpreting Staff: RADIOLOGY,OUTSIDE SERVICE, Staff Physician / RADIOLOGY,OUTSIDE SERVICE [facility] Pathology Reports: +/- [...] the Encounter. The data comes from all [facility] facilities. Date/Time Pathology Report Provider Source Aug [...] Performing Laboratory: Surgical Pathology Report Performed By: [facility] [address] [facility]# [id number] [address] [facility] [address] [place] [address] $FTR - - - - - - [...] - - ABRAHAM HAWK STANDARD FORM 515 ID:[id number] SEX:M :1955 AGE: 68 LOC:APFEE PCP: Deirdre Wild /loly/ CRISTIANA TEMPLETON Pathologist Signed: 08/16/2024 09:43 CRISTIANA TEMPLETON [facility] Aug 11, 2024 06:00 AM LR MICROBIOLOGY RE PORT: Accession [UID]: [id number] [[id number]] Received: Aug 11, 2024@06:19 Collection sample: Mario Alberto JONESD. BOTTLE Collection date: Aug 11, 2024 06:00 Site/Specimen: BLOOD Provider: GILSON OG Test(s) ordered: BLOOD CULT (SET 1)............ completed: Aug 17, 2024 10:06 * BACTERIOLOGY FINAL REPORT => Aug 17, 2024 10:22 TECH CODE: [id number] Bacteriology Remark(s): 2. KAA Culture shows NO GROWTH IN 6 DAYS =--=--=--=--=--=--=--=--=-- =--=--=--=--=--=--=--=--=-- =--=--=--=--=--=--=--=-- Performing Laboratory: Bacteriology Report Performed By: [address] CLIA# [id number] [address] [place] [phone] [facility] Jul 17, 2024 05:10 PM LR MICROBIOLOGY RE PORT: Accession [UID]: [id number] [[id number]] Received: Jul 17, 2024@17:30 Collection sample: B D BLD. BOTTLE (SET 2)Collection date: Jul 17, 2024 17:10 Site/Specimen: BLOOD Provider: CASEY BOONE Test(s) ordered: BLOOD CULT (SET 2)............ completed: Jul 23, 2024 14:26 * BACTERIOLOGY FINAL REPORT => Jul 23, 2024 14:28 TECH CODE: [id number] Bacteriology Remark(s): CULTURE IS NEGATIVE TO DATE, ALL POSITIVES ARE ROUTINELY CALLED. KI Culture shows NO GROWTH IN 6 DAYS. 07/23/24 KI =--=--=--=--=--=--=--=--=-- =--=--=--=--=--=--=--=--=-- =--=--=--=--=--=--=--=-- Performing Laboratory: Bacteriology Report Performed By: [address] CLIA# [id number] [address] [place] [phone] [facility] Jul 17, 2024 05:10 PM LR MICROBIOLOGY RE PORT: Accession [UID]: [id number] [[id number]] Received: Jul 17, 2024@17:30 Collection sample: B D BLD. BOTTLE Collection date: Jul 17, 2024 17:10 Site/Specimen: BLOOD Provider: CASEY BOONE Test(s) ordered: BLOOD CULT (SET 1)............ completed: Jul 23, 2024 14:26 * BACTERIOLOGY FINAL REPORT => Jul 23, 2024 14:28 TECH CODE: [id number] Bacteriology Remark(s): CULTURE IS NEGATIVE TO DATE, ALL POSITIVES ARE ROUTINELY CALLED. KI Culture shows NO GROWTH IN 6 DAYS. 07/23/24 KI =--=--=--=--=--=--=--=--=-- =--=--=--=--=--=--=--=--=-- =--=--=--=--=--=--=--=-- Performing Laboratory: Bacteriology Report Performed By: [facility], TARA [address] [facility] CLIA# [id number] [address] [facility] [address] [place] [address] JULISSA BROWN [facility] Encounter Notes: All associated encounter notes This section contains the clinical notes associated to the Encounter. Date/Time Encounter Note(s) Provider Source Aug 02, 2024 11:09 AM NUTRITION DIETETIC S NOTE: LOCAL TITLE: NUTRITION FOLLOW UP ST STANDARD TITLE: NUTRITION DIETETICS NOTE DATE OF NOTE: AUG 02, 2024@11:09 ENTRY DATE: AUG 02, 2024@11:09:10 AUTHOR: SHAKILA SPENCER COSIGNER: URGENCY: STATUS: COMPLETED NUTRITION REASSESSMENT Diagnosis: stage II nasopharyngeal SCC Time spent with Cliff: 25 minutes face to face BMI: 21.7 Last appointment date: 07/20/24 Identifiers: name, CLIENT HISTORY 68 yr old male w/PMH Chronic hepatitis C, Hepatic cirrhosis, Chronic Pain Syndrome, GERD - Gastro-Esophageal Reflux Disease, Child attention deficit disorder, Monoclonal gammopathy, Hearing Loss, Dupuytren contracture, Hepatocellular carcinoma Treatments/therapy/alternat robson medicine: -Nasal endoscopy, transoral biopsy of pharyngeal/soft palate mass 07/26/24 -He is not taking Ulysses Rvias Oil (RSO) anymore but is considering it again, especially after acute illness after first immunotherapy. -Keytruda 07/13/24; pending Social history: Cliff denies food insecurity. He is purchasing some pureed meals for convenience. FOOD AND NUTRITION RELATED HISTORY Diet experience: His jaw is swollen, he cannot wear his dentures to eat. Pureed is easier. His swallow is better. He is eating pureed soups and has purchased pureed meals through [employer]. He is drinking boost high brenton (500 cals), 3-4 a day, water and a little sprite. He stopped drinking ensure plus because it is less cals. OUTPATIENT MEDICATIONS 1) FUROSEMIDE 20MG TAB TAKE [...] DAY ACTIVE NEEDED KNOWLEDGE BELIEFS AND ATTITUDES Cliff is taking the initiative to ensure he is getting in sufficient cals/pro and is accessing meals. He is aware and has the ability to prepare pureed foods but is finding outside food to be acceptable. PHYSICAL ACTIVITY AND FUNCTION reports being active w/working. He travels or is on the road frequently. ANTHROPOMETRIC MEASUREMENTS Ht: 72 in [182.9 cm] (07/26/2023 08:00) Wt: 159.7 lb [72.44 kg] (08/02/2024 12:04) Weight History/Significant changes: -2.3 lbs recently Patient Weight History - Last Four 1. 159.7 lbs. / 72.4 kg. on AUG 02, 2024@12:04:56 2. 162.1 lbs. / 73.5 kg. on JUL 22, 2024@05:53:46 3. 162.1 lbs. / 73.5 kg. on JUL 21, 2024@05:54:39 4. 161.2 lbs. / 73.1 kg. on MAY 11, 2024@14:21:46 BMI: 21.7 (underweight) BIOCHEMICAL DATA/MEDICAL TESTS AND PROCEDURES Collection time: Aug 02, 2024@11:53 Test Name Result Units Range --------- ------ ----- ----- IGG (STL) 1898 H mg/dL 540 - 1822 SODIUM 138 mEq/L 136 - 145 POTASSIUM 4.1 mEq/L 3.5 - 5 CHLORIDE 103 mEq/L 98 - 107 UREA NITROGEN 12.2 mg/dL 9.0 - 25.0 CREATININE 0.82 mg/dL 0.7 - 1.3 CALCIUM 9.1 mg/dL 8.4 - 10.4 PROTEIN 7.5 g/dL 6 - 8.6 ALBUMIN 3.6 g/dL 3.4 - 5 ALKALINE PHOSPHATASE 118 U/L 40 - 150 ALT/SGPT 16 U/L 8 - 40 AST/SGOT 32 U/L 5 - 34 TOTAL BILIRUBIN 0.9 mg/dL 0.2 - 1.2 CARBON DIOXIDE 26 mEq/L 22 - 31 GLUCOSE 100 H mg/dL 72 - 99 IGA (STL) 113 mg/dL 63 - 484 IGM (STL) 104 mg/dL 22 - 240 EGFR (CKD-EPI 2020) 96.3 Ref: >=60 Collection [...] jaw swollen Dry mouth GERD, omeprazole helps No c/o n/v/c/d; prone to constipation Appearance of squaring of shoulders, mild muscle loss at clavicle, thin extremities, mildly larger appearing stomach Prior edema, resolved NUTRITION PRESCRIPTION Estimated energy needs: REE 1544 x 1.4-1.6 = 9384-5262 cals/day Estimated protein needs: 86-108 grams/day (1.2-1.5/kg ABW) Estimated fluid needs: 1277-4260 ml/day (1/brenton) Nutrition prescription specifics: high brenton/pro, [...] (distrust of foods other than Boost). (active) NUTRITION INTERVENTIONS FOOD AND NUTRIENT DELIVERY Texture modified to tolerance, emphasis on sufficient cals/pro Commercial beverage food supplement therapy: trialing two brenton hn tid NUTRITION EDUCATION/COUNSELING Content related and nutrition's influence on health: Acknowledged diagnosis, treatment history/pending treatment. Praised for trying to optimize oral intake. Discussed foods which may be well tolerated. Reviewed ways to puree foods. Discussed high brenton/pro liquid options. Rec continue ons, trialing two brenton hn. Education material: none, offered pureed foods diet/recipes Barriers to learning: none Comprehension: good COORDINATION OF NUTRITION CARE None at this time. NUTRITION MONITORING AND EVALUATION Number of estimated meals 24 hrs (texture to tolerance): 2-3 (new) Nutritionally complete liquid oral supplement in 24 hrs: two brenton hn tid (new) Return to clinic: 2-4 weeks Dietitian contact information provided for any follow-up questions or needs. Homelessness/Food Insecurity Screen: no change from prior /es/ Shakila Spencer MBA, RD, CATHODE BUILDER, LD Clinical Dietitian Signed: 08/03/2024 14:15 SHAKILA SPENCER [facility]
--- OUTSIDE RECORDS SUMMARY | 2024-10-08 17:13 | XMS_ITS | Encounter Summary ---
Author Name [facility] [place] [facility] [place] Address [address] [place] [address] Care Team Providers Care Culinary Artist Name Role Phone SUKHJINDER CHAHAL Primary Care [...] SUPPL EMENT Nov 25, 2021 PLAN G [id number] [phone] ELLEN HAWK VID PATIENT AARP MED SUPP MEDIGAP PLAN G MEDIC ARE SUPPL EMENT Nov 25, 2021 PLAN G [id number] [phone] ELLEN HAWK VID PATIENT MEDICARE (WNR) MEDICARE (M) PART B Sep 25, 2021 PART B [id number] ELLEN HAWK VID PATIENT MEDICARE (WNR) MEDICARE (M) PART A Aug 25, 2021 PART A [id number] ELLEN HAWKD PATIENT Selected Encounter This section includes the information on record at [place] for the Encounter. Date/Time Encounter Type Encounter Description Reason Provider Source Aug 14, 2024 11:51 AM Inpatient Visit ADMIN PAT ACTIVTIES (MALGORZATA) RADHA GARY Encounter Template Text not used by [place] Plan of Treatment: Future Appointments (+ 6 months) and Future Tests (+/- 45 days) The Plan of Treatment section includes future care activities for the patient from all [place] [facility] This section includes future appointments and future orders which are active, pending or scheduled. Future Appointments This section includes appointments that were scheduled to occur 6 months from the date of the Encounter, up to a maximum of 20 appointments. The data comes from all [facility]. Appointment Date/Time Appointment Type Appointme nt Facility Name Aug 16, 2024 10:00 AM AMBULATORY - MEDICINE [facility] Aug 17, 2024 08:30 AM AMBULATORY - MEDICINE [facility] Aug 17, 2024 09:00 AM AMBULATORY - MEDICINE [facility] Aug 17, 2024 09:30 AM AMBULATORY - MEDICINE [facility] Aug 23, 2024 12:00 PM AMBULATORY - NONE [facility] Aug 31, 2024 02:00 PM AMBULATORY - MEDICINE [facility] Sep 07, 2024 11:00 AM AMBULATORY - MEDICINE [facility] Sep 07, 2024 01:00 PM AMBULATORY - MEDICINE [facility] Oct 15, 2024 03:00 PM AMBULATORY - SURGERY [facility] Oct 19, 2024 02:00 PM AMBULATORY - NONE [facility] Active, Pending, and Scheduled Orders This section includes a listing of several types of active, pending, and scheduled orders, including clinic medications orders, diagnostic test orders, procedure orders and consult orders; where the start date of the order is 45 days before the date of the Encounter or 45 days after the date of theEncounter. The data comes from all [facility]. Test Date/Time Test Type Test Details Facility Name Jul 17, 2024 12:00 AM Laboratory - Blood Bank Order RED BLOOD CELLS - LAB VBECS - NO SPECIMEN REQUIRED SP [facility] Jul 17, 2024 12:00 AM Laboratory - Blood Bank Order FRESH FROZEN PLASMA - LAB VBECS - NO SPECIMEN REQUIRED [facility] Jul 17, 2024 06:13 PM Laboratory - Blood Bank Order DIRECT ANTIGLOBULIN TEST - LAB BLOOD STAT [facility] Jul 17, 2024 06:13 PM Laboratory - Blood Bank Order TYPE & SCREEN - LAB BLOOD [facility] Jul 18, 2024 12:00 AM Laboratory - Blood Bank Order PLATELETS - LAB VBECS - NO SPECIMEN REQUIRED [facility] Aug 10, 2024 12:00 AM Laboratory - Blood Bank Order RED BLOOD CELLS - LAB VBECS - NO SPECIMEN REQUIRED JOANN [facility] Aug 10, 2024 02:00 PM Laboratory - Blood Bank Order TYPE & SCREEN - LAB BLOOD [facility] Aug 10, 2024 05:43 PM Laboratory - Chemistry Order LIPASE GREEN LI/HEP BLD/PLAS PLASMA STAT I ONCE [facility] Aug 10, 2024 05:44 PM Laboratory - Microbiology Order BLOOD CULT (SET 2) B D BLD. BOTTLE (SET 2) BLOOD JOANN I NOW [facility] Aug 11, 2024 02:00 AM Laboratory - Chemistry Order CBC BLOOD [facility] Aug 14, 2024 02:00 AM Laboratory - Chemistry Order CBC BLOOD [facility] Aug 15, 2024 02:00 AM Laboratory - Chemistry Order CBC BLOOD [facility] Aug 16, 2024 12:00 AM Laboratory - Chemistry Order CBC BLOOD [facility] Aug 16, 2024 08:00 PM Laboratory - Chemistry Order CBC BLOOD [facility] Aug 17, 2024 08:00 PM Laboratory - Chemistry Order CBC BLOOD [facility] Sep 27, 2024 12:00 AM Laboratory - Chemistry Order CBC BLOOD [facility] Sep 27, 2024 12:00 AM Laboratory - Chemistry Order COMPREHENSIVE METABOLIC PANEL GREEN LI/HEP BLD/PLAS PLASMA [facility] Lab Results: +/- 30 days of the encounter This section includes the Chemistry and Hematology Lab Results on record with [place] for the patient. Radiology Reports and Pathology Reports are provided separately, in subsequent sections. Lab Results This section contains the Chemistry/Hematology Results that were resulted 30 days before or 30 daysafter the date of the Encounter. Date/Time Source Result Type Result - Unit Interpretation Reference Range Specimen Type Comment Sep 07, 2024 12:39 PM [facility] COMPREHENSIVE METABOLIC PANEL PLASMA Specimen Type: PLASMA Comment: No hemolysis noted. Ordering Provider: TONY SIMMONS Report Released Date/Time: Aug 31, 2024 02:42 PM Reporting Lab: [place] [id number] [facility] [address] Performing Lab: [address] [address] CREATININE 0.87 mg/dL 0.7-1.3 UREA NITROGEN 24.5 [...] 94.0 >60 Sep 07, 2024 12:39 PM [facility] CBC BLOOD Specimen Type: BLOOD No comment entered. Ordering Provider: TONY SIMMONS Report Released Date/Time: Aug 31, 2024 02:42 PM Reporting Lab: [facility] [address] [facility] [address] Performing Lab: [address] [address] WBC 5.1 10*3/uL 3.6-11.2 RBC 3.44 10*6/uL [...] 10*3/uL 2.10-8.00 Sep 07, 2024 12:39 PM [facility] ALPHA-FETOPROTEIN(STL-PB) SERUM Specimen Type : SERUM No comment entered. Ordering Provider: CRYSTAL MASSEY Report Released Date/Time: Sep 07, 2024 11:59 AM Reporting Lab: [facility] [address] [facility] [address] Performing Lab: [address] [address] ALPHA-FETOPROTEIN(STL-PB) 15.01 ng/mL H 1- 8.78 Aug 31, 2024 02:04 PM [facility] COMPREHENSIVE METABOLIC PANEL PLASMA Specimen Type: PLASMA Comment: No hemolysis noted. Ordering Provider: TONY SIMMONS Report Released Date/Time: Aug 27, 2024 12:35 PM Reporting Lab: [address] [address] Performing Lab: [address] [address] CREATININE 0.90 mg/dL 0.7-1.3 UREA NITROGEN 26.4 [...] 93.6 >60 Aug 31, 2024 02:04 PM [facility] CBC BLOOD Specimen Type: BLOOD No comment entered. Ordering Provider: TONY SIMMONS Report Released Date/Time: Aug 27, 2024 12:35 PM Reporting Lab: [address] [address] Performing Lab: [place] [id number] [facility] [address] WBC 4.7 10*3/uL 3.6-11.2 RBC 3.54 10*6/uL [...] 10*3/uL 2.10-8.00 Aug 17, 2024 03:34 PM [facility] TSH W/ REFLEX FT4 (STL) PLASMA Specimen Type: PLASMA No comment entered. Ordering Provider: TONY SIMMONS Report Released Date/Time: Aug 10, 2024 12:01 PM Reporting Lab: [place] [address] Performing Lab: [place] [address] [place] [phone] TSH 4.570 u[IU]/mL 0.47-5 Aug 17, 2024 03:34 PM [facility] COMPREHENSIVE METABOLIC PANEL PLASMA Specimen Type: PLASMA Comment: No hemolysis noted. Ordering Provider: TONY SIMMONS Report Released Date/Time: Aug 10, 2024 12:01 PM Reporting Lab: [place] [address] [place] [phone] Performing Lab: [place] [phone] CREATININE 0.85 mg/dL 0.7-1.3 UREA NITROGEN 11.5 [...] 95.2 >60 Aug 17, 2024 03:34 PM [facility] CBC BLOOD Specimen Type: BLOOD Comment: No Clots Ordering Provider: TONY SIMMONS Report Released Date/Time: Aug 10, 2024 12:01 PM Reporting Lab: [address] [address] Performing Lab: [address] [address] WBC 5.0 10*3/uL 3.6-11.2 RBC 2.83 10*6/uL [...] 4.9 1.0-7.0 Aug 15, 2024 07:20 AM [facility] CBC BLOOD Specimen Type: BLOOD Comment: No clots detected in specimen. Ordering Provider: CASH CLOUD Report Released Date/Time: Aug 12, 2024 01:47 PM Reporting Lab: [address] [address] Performing Lab: [address] [address] WBC 4.9 10*3/uL 3.6-11.2 RBC 2.93 10*6/uL [...] 10*3/uL 2.10-8.00 Aug 15, 2024 04:54 AM [facility] GLUCOSE,BLOOD-poct (STL) BLOOD Specimen Type: BLOOD Comment: Test Performed by: [email or web address] Meter #: [id number] Ordering Provider: DEIRDRE WILD Report Released Date/Time: Aug 15, 2024 05:21 AM Reporting Lab: [address] [address] Performing Lab: [address] [address] GLUCOSE,BLOOD-poct (STL) 112 mg/dL H 72-99 Aug 14, 2024 08:30 PM [facility] CRP PLASMA Specimen Type: PLASM A No comment entered. Ordering Provider: CASH CLOUD Report Released Date/Time: Aug 12, 2024 10:14 AM Reporting Lab: [address] [address] Performing Lab: [address] [address] CRP 0.7 mg/dL H 0-0.5 Aug 14, 2024 08:30 PM [facility] CBC BLOOD Specimen Type: BLOOD No comment entered. Ordering Provider: GILSON OG Report Released Date/Time: Aug 10, 2024 04:01 PM Reporting Lab: [address] [address] Performing Lab: [address] [address] WBC 4.6 10*3/uL 3.6-11.2 RBC 2.83 10*6/uL [...] 10*3/uL 2.10-8.00 Aug 14, 2024 07:54 PM [facility] GLUCOSE,BLOOD-poct (STL) BLOOD Specimen Type: BLOOD Comment: Test Performed by: [id number] Meter #: [id number] Ordering Provider: DEIRDRE WILD Report Released Date/Time: Aug 14, 2024 08:15 PM Reporting Lab: [address] [address] Performing Lab: [address] [address] GLUCOSE,BLOOD-poct (STL) 112 mg/dL H 72-99 Aug 14, 2024 04:10 PM [facility] GLUCOSE,BLOOD-poct (STL) BLOOD Specimen Type: BLOOD Comment: Test Performed by: [id number] Meter #: [id number] Ordering Provider: DEIRDRE WILD Report Released Date/Time: Aug 14, 2024 04:43 PM Reporting Lab: [address] [address] Performing Lab: [address] [address] GLUCOSE,BLOOD-poct (STL) 115 mg/dL H 72-99 Aug 14, 2024 02:05 PM [facility] COMPREHENSIVE METABOLIC PANEL PLASMA Specimen Type: PLASMA Comment: No hemolysis noted. Ordering Provider: GILSON OG Report Released Date/Time: Aug 14, 2024 06:56 AM Reporting Lab: [address] [address] Performing Lab: [address] [address] CREATININE 0.75 mg/dL 0.7-1.3 UREA NITROGEN 9.3 [...] 98.9 >60 Aug 14, 2024 02:05 PM [facility] CBC BLOOD Specimen Type: BLOOD Comment: No platelet clots or clumping detected. Ordering Provider: GILSON OG Report Released Date/Time: Aug 10, 2024 04:01 PM Reporting Lab: [address] [place] [address] Performing Lab: [facility] [address] [facility] [address] WBC 4.6 10*3/uL 3.6-11.2 RBC 3.06 10*6/uL [...] 10*3/uL 2.10-8.00 Aug 14, 2024 10:12 AM [facility] GLUCOSE,BLOOD-poct (STL) BLOOD Specimen Type: BLOOD Comment: Test Performed by: [id number] Meter #: [id number] Ordering Provider: DEIRDRE WILD Report Released Date/Time: Aug 14, 2024 10:13 AM Reporting Lab: [place] [address] [place] [phone] Performing Lab: [place] [phone] GLUCOSE,BLOOD-poct (STL) 112 mg/dL H 72-99 Aug 14, 2024 09:20 AM [facility] PT/INR NEW (STL-MA) PLASMA Specimen Type: PLAS MA No comment entered. Ordering Provider: GILSON OG Report Released Date/Time: Aug 14, 2024 09:06 AM Reporting Lab: [place] [address] Performing Lab: [place] [address] PROTIME 13.6 s H 9.4-12.5 INR VALUE 1.2 {INR} Aug 14, 2024 06:51 AM [facility] CBC BLOOD Specimen Type: BLOOD No comment entered. Ordering Provider: CASH CLOUD Report Released Date/Time: Aug 12, 2024 01:47 PM Reporting Lab: [place] [phone] Performing Lab: [place] [phone] WBC 3.8 10*3/uL 3.6-11.2 RBC 2.56 10*6/uL [...] 10*3/uL 2.10-8.00 Aug 14, 2024 06:03 AM [facility] GLUCOSE,BLOOD-poct (STL) BLOOD Specimen Type: BLOOD Comment: Test Performed by: [id number] Meter #: [id number] Ordering Provider: DEIRDRE WILD Report Released Date/Time: Aug 14, 2024 06:07 AM Reporting Lab: [address] [address] Performing Lab: [address] [address] GLUCOSE,BLOOD-poct (STL) 114 mg/dL H 72-99 Aug 13, 2024 09:11 PM [facility] GLUCOSE,BLOOD-poct (STL) BLOOD Specimen Type: BLOOD Comment: Test Performed by: [id number] Meter #: [id number] Ordering Provider: DEIRDRE WILD Report Released Date/Time: Aug 13, 2024 09:40 PM Reporting Lab: [address] [address] Performing Lab: [address] [address] GLUCOSE,BLOOD-poct (STL) 160 mg/dL H 72-99 Aug 13, 2024 07:10 PM [facility] COMPREHENSIVE METABOLIC PANEL PLASMA Specimen Type: PLASMA Comment: No hemolysis noted. Ordering Provider: GILSON OG Report Released Date/Time: Aug 14, 2024 07:03 AM Reporting Lab: [address] [address] Performing Lab: [address] [address] CREATININE 0.75 mg/dL 0.7-1.3 UREA NITROGEN 10.3 [...] 98.9 >60 Aug 13, 2024 07:10 PM [facility] CRP PLASMA Specimen Type: PLASM A No comment entered. Ordering Provider: CASH CLOUD Report Released Date/Time: Aug 12, 2024 10:14 AM Reporting Lab: [facility] [address] [facility] [address] Performing Lab: [address] [address] CRP 0.7 mg/dL H 0-0.5 Aug 13, 2024 07:10 PM [facility] CBC BLOOD Specimen Type: BLOOD No comment entered. Ordering Provider: GILSON OG Report Released Date/Time: Aug 10, 2024 04:01 PM Reporting Lab: [place] [address] [facility] [address] Performing Lab: [address] [address] WBC 5.3 10*3/uL 3.6-11.2 RBC 2.67 10*6/uL [...] 10*3/uL 2.10-8.00 Aug 13, 2024 04:35 PM [facility] GLUCOSE,BLOOD-poct (STL) BLOOD Specimen Type: BLOOD Comment: Test Performed by: [id number] Meter #: [id number] Ordering Provider: DEIRDRE WILD Report Released Date/Time: Aug 13, 2024 05:18 PM Reporting Lab: [address] [address] Performing Lab: [address] [address] GLUCOSE,BLOOD-poct (STL) 113 mg/dL H 72-99 Aug 13, 2024 02:36 PM [facility] CBC BLOOD Specimen Type: BLOOD No comment entered. Ordering Provider: GILSON GO Report Released Date/Time: Aug 10, 2024 04:01 PM Reporting Lab: [address] [address] Performing Lab: [address] [address] WBC 5.8 10*3/uL 3.6-11.2 RBC 2.77 10*6/uL [...] 10*3/uL 2.10-8.00 Aug 13, 2024 11:37 AM [facility] GLUCOSE,BLOOD-poct (STL) BLOOD Specimen Type: BLOOD Comment: Test Performed by: [id number] Meter #: [id number] Ordering Provider: DEIRDRE WILD Report Released Date/Time: Aug 13, 2024 11:38 AM Reporting Lab: [address] [address] Performing Lab: [address] [address] GLUCOSE,BLOOD-poct (STL) 131 mg/dL H 72-99 Aug 13, 2024 08:06 AM [facility] CBC BLOOD Specimen Type: BLOOD Comment: no clot Ordering Provider: CASH CLOUD Report Released Date/Time: Aug 12, 2024 01:47 PM Reporting Lab: [place] [address] [facility] [address] Performing Lab: [address] [address] WBC 3.0 10*3/uL L 3.6-11.2 RBC 2.61 [...] 10*3/uL 2.10-8.00 Aug 13, 2024 04:45 AM [facility] GLUCOSE,BLOOD-poct (STL) BLOOD Specimen Type: BLOOD Comment: Test Performed by: [id number] Meter #: [id number] Ordering Provider: DEIRDRE WILD Report Released Date/Time: Aug 13, 2024 06:18 AM Reporting Lab: [place] [address] [facility] [address] Performing Lab: [address] [address] GLUCOSE,BLOOD-poct (STL) 139 mg/dL H 72-99 Aug 12, 2024 10:10 PM [facility] GLUCOSE,BLOOD-poct (STL) BLOOD Specimen Type: BLOOD Comment: Test Performed by: [id number] Meter #: [id number] Ordering Provider: DEIRDRE WILD Report Released Date/Time: Aug 12, 2024 10:50 PM Reporting Lab: [address] [address] Performing Lab: [address] [address] GLUCOSE,BLOOD-poct (STL) 105 mg/dL H 72-99 Aug 12, 2024 08:48 PM [facility] CRP PLASMA Specimen Type: PLASM A No comment entered. Ordering Provider: CASH CLOUD Report Released Date/Time: Aug 12, 2024 10:14 AM Reporting Lab: [address] [address] Performing Lab: [address] [address] CRP 0.6 mg/dL H 0-0.5 Aug 12, 2024 08:48 PM [facility] CBC BLOOD Specimen Type: BLOOD Comment: SEE PREVIOUS DIFFERENTIAL ON 08/12/24 @ 1807 Ordering Provider: GILSON OG Report Released Date/Time: Aug 10, 2024 04:01 PM Reporting Lab: [address] [address] Performing Lab: [address] [address] WBC 5.0 10*3/uL 3.6-11.2 RBC 2.78 10*6/uL [...] 6.5 1.0-7.0 Aug 12, 2024 04:51 PM [facility] GLUCOSE,BLOOD-poct (STL) BLOOD Specimen Type: BLOOD Comment: Test Performed by: [employer] Meter #: [id number] Ordering Provider: DEIRDRE WILD Report Released Date/Time: Aug 12, 2024 05:07 PM Reporting Lab: [address] [address] Performing Lab: [address] [address] GLUCOSE,BLOOD-poct (STL) 135 mg/dL H 72-99 Aug 12, 2024 02:33 PM [facility] CBC BLOOD Specimen Type: BLOOD No comment entered. Ordering Provider: GILSON OG Report Released Date/Time: Aug 10, 2024 04:01 PM Reporting Lab: [address] [address] Performing Lab: [address] [address] WBC 4.0 10*3/uL 3.6-11.2 RBC 2.56 10*6/uL [...] 10*3/uL 2.10-8.00 Aug 12, 2024 11:51 AM [facility] GLUCOSE,BLOOD-poct (STL) BLOOD Specimen Type: BLOOD Comment: Test Performed by: [id number] Meter #: [id number] Ordering Provider: DEIRDRE WILD Report Released Date/Time: Aug 12, 2024 12:26 PM Reporting Lab: [address] [address] Performing Lab: [address] [address] GLUCOSE,BLOOD-poct (STL) 139 mg/dL H 72-99 Aug 12, 2024 07:35 AM [facility] CBC BLOOD Specimen Type: BLOOD Comment: prev diff 08/11/24. Ordering Provider: GILSON OG Report Released Date/Time: Aug 10, 2024 04:01 PM Reporting Lab: [address] [address] Performing Lab: [address] [address] WBC 3.0 10*3/uL L 3.6-11.2 RBC 2.54 [...] 0.00-0. 20 Aug 12, 2024 05:49 AM [facility] GLUCOSE,BLOOD-poct (STL) BLOOD Specimen Type: BLOOD Comment: Test Performed by: [id number] Meter #: [id number] Ordering Provider: DEIRDRE WILD Report Released Date/Time: Aug 12, 2024 05:50 AM Reporting Lab: [address] [address] Performing Lab: [place] [address] [facility] [address] GLUCOSE,BLOOD-poct (STL) 112 mg/dL H 72-99 Aug 12, 2024 01:45 AM [facility] CBC BLOOD Specimen Type: BLOOD Comment: SEE PREVIOUS DIFFERENTIAL ON 08/12/24 @ 0239 [facility] Ordering Provider: GILSON OG Report Released Date/Time: Aug 10, 2024 04:01 PM Reporting Lab: [place] [address] [facility] [address] Performing Lab: [place] [address] [facility] [address] WBC 2.6 10*3/uL L 3.6-11.2 RBC 2.42 [...] 6.4 1.0-7.0 Aug 11, 2024 09:25 PM [facility] CBC BLOOD Specimen Type: BLOOD No comment entered. Ordering Provider: GILSON OG Report Released Date/Time: Aug 10, 2024 04:01 PM Reporting Lab: [facility] [address] [facility] [address] Performing Lab: [address] [address] WBC 3.6 10*3/uL 3.6-11.2 RBC 2.54 10*6/uL [...] 10*3/uL 2.10-8.00 Aug 11, 2024 09:17 PM [facility] GLUCOSE,BLOOD-poct (STL) BLOOD Specimen Type: BLOOD Comment: Test Performed by: [id number] Meter #: [id number] Ordering Provider: DEIRDRE WILD Report Released Date/Time: Aug 11, 2024 09:21 PM Reporting Lab: [address] [address] Performing Lab: [address] [address] GLUCOSE,BLOOD-poct (L) 167 mg/dL H 72-99 Aug 11, 2024 04:42 PM [facility] CBC BLOOD Specimen Type: BLOOD No comment entered. Ordering Provider: YVONNE HARRISON Report Released Date/Time: Aug 11, 2024 04:41 PM Reporting Lab: [address] [address] Performing Lab: [address] [address] WBC 4.0 10*3/uL 3.6-11.2 RBC 2.74 10*6/uL [...] 10*3/uL 2.10-8.00 Aug 11, 2024 04:30 PM [facility] GLUCOSE,BLOOD-poct (STL) BLOOD Specimen Type: BLOOD Comment: Test Performed by: [id number] Meter #: [id number] Ordering Provider: DEIRDRE WILD Report Released Date/Time: Aug 11, 2024 06:06 PM Reporting Lab: [address] [address] Performing Lab: [address] [address] GLUCOSE,BLOOD-poct (STL) 95 mg/dL 72-99 Aug 11, 2024 11:08 AM [facility] GLUCOSE,BLOOD-poct (STL) BLOOD Specimen Type: BLOOD Comment: Test Performed by: [id number] Meter #: [id number] Ordering Provider: DEIRDRE WILD Report Released Date/Time: Aug 11, 2024 11:10 AM Reporting Lab: [address] [address] Performing Lab: [address] [address] GLUCOSE,BLOOD-poct (STL) 117 mg/dL H 72-99 Aug 11, 2024 06:00 AM [facility] IRON/TIBC PROFILE SERUM Specimen Type: SERUM No comment entered. Ordering Provider: GILSON OG Report Released Date/Time: Aug 10, 2024 04:02 PM Reporting Lab: [address] [address] Performing Lab: [address] [address] TIBC 263 ug/dL 250-450 TRANSFERRIN 210 mg/dL 163-344 IRON SATURATION 8 L 20-50 IRON 21 ug/dL L 65-175 Aug 11, 2024 06:00 AM [facility] APTT PLASMA Specimen Type: PLASM A No comment entered. Ordering Provider: GILSON OG Report Released Date/Time: Aug 10, 2024 06:20 PM Reporting Lab: [facility] [address] [place] [address] Performing Lab: [address] [address] APTT 25.5 s L 26.7-39.9 Aug 11, 2024 06:00 AM [facility] PT/INR NEW (L-MA) PLASMA Specimen Type: PLAS MA No comment entered. Ordering Provider: GILSON OG Report Released Date/Time: Aug 10, 2024 06:20 PM Reporting Lab: [facility] [address] [place] [address] Performing Lab: [place] [address] [facility] [address] PROTIME 15.5 s H 9.4-12.5 INR VALUE 1.4 {INR} Aug 11, 2024 06:00 AM [facility] HEPATIC FUNTION PANEL (STL) PLASMA Specimen Ty pe: PLASMA No comment entered. Ordering Provider: GILSON OG Report Released Date/Time: Aug 10, 2024 04:02 PM Reporting Lab: [facility] [address] [place] [facility] [id number] Performing Lab: [place] [address] [place] [facility] [place] [address] PROTEIN 5.4 g/dL L 6-8.6 ALBUMIN 2.6 g/dL L 3.4-5 TOTAL BILIRUBIN 0.8 mg/dL 0.2-1.2 ALKALINE PHOSPHATASE 72 U/L 40-150 AST/SGOT 28 U/L 5-34 ALT/SGPT 10 U/L 8-40 CONJ. BILIRUBIN 0.4 mg/dL 0-0.5 Aug 11, 2024 06:00 AM [facility] CBC BLOOD Specimen Type: BLOOD No comment entered. Ordering Provider: GILSON OG Report Released Date/Time: Aug 10, 2024 04:01 PM Reporting Lab: [facility] [address] [facility] [address] Performing Lab: [facility] [address] [place] [id number] WBC 2.4 10*3/uL L 3.6-11.2 RBC 2.42 [...] L 2.10-8.00 Aug 10, 2024 09:00 PM [facility] BASIC METABOLIC PANEL PLASMA Specimen Type: PL ASMA Comment: No hemolysis noted. Ordering Provider: GILSON OG Report Released Date/Time: Aug 10, 2024 04:01 PM Reporting Lab: [facility] [address] [facility] [address] Performing Lab: [address] [address] CREATININE 0.84 mg/dL 0.7-1.3 UREA NITROGEN 16.8 mg/dL 9.0-25.0 GLUCOSE 104 mg/dL H 72-99 SODIUM 133 meq/L L 136-145 POTASSIUM 3.5 meq/L 3.5-5 CHLORIDE 103 meq/L 98-107 CARBON DIOXIDE 23 meq/L 22-31 CALCIUM 8.4 mg/dL 8.4-10.4 EGFR (CKD-EPI 2020) 95.6 >60 Aug 10, 2024 09:00 PM [facility] CBC BLOOD Specimen Type: BLOOD No comment entered. Ordering Provider: GILSON OG Report Released Date/Time: Aug 10, 2024 04:01 PM Reporting Lab: [facility] [address] [facility] [address] Performing Lab: [address] [address] WBC 4.3 10*3/uL 3.6-11.2 RBC 2.22 10*6/uL [...] 10*3/uL 2.10-8.00 Aug 10, 2024 06:30 PM [facility] MRSA SURVL NARES DNA NARES Specimen [...] 10, 2024 04:01 PM Reporting Lab: [address] [address] [address] Performing Lab: [address] [address] MRSA SURVL NARES DNA Negative Negative Aug 10, 2024 06:02 PM [facility] GLUCOSE,BLOOD-poct (STL) BLOOD Specimen Type: BLOOD Comment: Test Performed by: [id number] Meter #: [id number] Ordering Provider: YASIR SANZ MD Report Released Date/Time: Aug 10, 2024 06:04 PM Reporting Lab: [address] [address] Performing Lab: [address] [address] GLUCOSE,BLOOD-poct (STL) 94 mg/dL 72-99 Aug 10, 2024 02:12 PM [facility] APTT PLASMA Specimen Type: PLASM A No comment entered. Ordering Provider: YASIR SANZ MD Report Released Date/Time: Aug 10, 2024 02:00 PM Reporting Lab: [address] [address] Performing Lab: [address] [address] APTT 20.1 s L 26.7-39.9 Aug 10, 2024 02:12 PM [facility] PT/INR NEW (STL-MA) PLASMA Specimen Type: PLAS MA No comment entered. Ordering Provider: YASIR SANZ MD Report Released Date/Time: Aug 10, 2024 02:00 PM Reporting Lab: [address] [address] Performing Lab: [place] [address] [facility] [address] PROTIME 13.8 s H 9.4-12.5 INR VALUE 1.2 {INR} Aug 10, 2024 11:30 AM [facility] TSH W/ REFLEX FT4 ([facility]) PLASMA Specimen Type: PLASMA No comment entered. Ordering Provider: TONY SIMMONS Report Released Date/Time: Aug 02, 2024 12:33 PM Reporting Lab: [place] [address] [facility] [address] Performing Lab: [address] [address] TSH 3.991 u[IU]/mL 0.47-5 Aug 10, 2024 11:30 AM [facility] COMPREHENSIVE METABOLIC PANEL PLASMA Specimen Type: PLASMA Comment: No hemolysis noted. Ordering Provider: TONY SIMMONS Report Released Date/Time: Aug 02, 2024 12:33 PM Reporting Lab: [place] [address] [facility] [address] Performing Lab: [address] [address] CREATININE 0.82 mg/dL 0.7-1.3 UREA NITROGEN 21.7 [...] 96.3 >60 Aug 10, 2024 11:30 AM [facility] CBC BLOOD Specimen Type: BLOOD No comment entered. Ordering Provider: TONY SIMMONS Report Released Date/Time: Aug 02, 2024 12:33 PM Reporting Lab: [place] [id number] [facility] [address] Performing Lab: [address] [address] WBC 7.4 10*3/uL 3.6-11.2 RBC 2.81 10*6/uL [...] 0.00-0. 20 Aug 02, 2024 11:53 AM [facility] PROTEIN ELECTROPHORESIS BLOOD SERUM Specimen Type: SERUM Comment: Reference Range: None Detected NOTE: THIS RESULT IS FLAGGED ABNORMAL Evaluation reveals a restricted band (M-spike) migrating in the gamma globulin region. If not already requested, Immunofixation should be considered. Test Performed by [facility], [facility], [address] [place], [place] Tristin Iyer M.D., Ph.D., Director of Laboratories , CLIA [id number] PREVIOUS SUGAR: IgG Kimmell Ordering Provider: TONY SIMMONS Report Released Date/Time: Jul 13, 2024 01:49 PM Reporting Lab: [facility] [address] [place] [address] Performing Lab: [facility] [address] [facility] ALPHA-1 GLOBULIN(SO-PB-STL) 0.4 g/dL H 0.2 [...] g/dL H Aug 02, 2024 11:53 AM [facility] IGG (STL) PLASMA Specimen Type: PLASM A Comment: No hemolysis noted. Ordering Provider: TONY SIMMONS Report Released Date/Time: Jul 13, 2024 01:49 PM Reporting Lab: [facility] [address] [facility] [address] Performing Lab: [address] [address] IGG (STL) 1898 mg/dL H 540-1822 Aug 02, 2024 11:53 AM [facility] IGA (STL) PLASMA Specimen Type: PLASM A Comment: No hemolysis noted. Ordering Provider: TONY SIMMONS Report Released Date/Time: Jul 13, 2024 01:49 PM Reporting Lab: [facility] [address] [facility] [address] Performing Lab: [facility] [address] [place] [address] IGA (STL) 113 mg/dL 63-484 Aug 02, 2024 11:53 AM [facility] IGM (STL) PLASMA Specimen Type: PLASM A Comment: No hemolysis noted. Ordering Provider: TONY SIMMONS Report Released Date/Time: Jul 13, 2024 01:49 PM Reporting Lab: [address] [address] Performing Lab: [address] [address] IGM (STL) 104 mg/dL 22-240 Aug 02, 2024 11:53 AM [facility] TSH W/ REFLEX FT4 (STL) PLASMA Specimen Type: PLASMA No comment entered. Ordering Provider: TONY SIMMONS Report Released Date/Time: Jul 13, 2024 01:49 PM Reporting Lab: [address] [address] Performing Lab: [address] [address] TSH 2.182 u[IU]/mL 0.47-5 Aug 02, 2024 11:53 AM [facility] KAPPA/LAMBDA FREE LC PANEL (STL-PB) SERUM Spe cimen Type: SERUM No comment entered. Ordering Provider: TONY SIMMONS Report Released Date/Time: Jul 13, 2024 01:49 PM Reporting Lab: [address] [address] Performing Lab: [address] [address] KAPPA FREE LC (STL) 102.7 mg/L H 2.4-20.7 LAMBDA FREE LC (STL) 32.2 mg/L H 4.2-27.7 KAPPA/LAMBDA RATIO (STL) 3.19 H 0.22-1. 74 Aug 02, 2024 11:53 AM [facility] COMPREHENSIVE METABOLIC PANEL PLASMA Specimen Type: PLASMA Comment: No hemolysis noted. Ordering Provider: TONY SIMMONS Report Released Date/Time: Jul 13, 2024 01:49 PM Reporting Lab: [address] [address] Performing Lab: [address] [address] CREATININE 0.82 mg/dL 0.7-1.3 UREA NITROGEN 12.2 [...] 96.3 >60 Aug 02, 2024 11:53 AM [facility] CBC BLOOD Specimen Type: BLOOD Comment: No Clots in specimen Ordering Provider: TONY SIMMONS Report Released Date/Time: Jul 13, 2024 01:49 PM Reporting Lab: [address] [address] Performing Lab: [address] [address] WBC 2.2 10*3/uL L 3.6-11.2 RBC 3.44 [...] L 2.10-8.00 Aug 01, 2024 10:10 AM [facility] GLUCOSE,BLOOD-poct (STL) BLOOD Specimen Type: BLOOD Comment: Test Performed by: [id number] Meter #: [id number] Ordering Provider: SUKHJINDER CHAHAL Report Released Date/Time: Aug 01, 2024 10:17 AM Reporting Lab: [address] [address] Performing Lab: [address] [address] GLUCOSE,BLOOD-poct (STL) 101 mg/dL H 72-99 Jul 27, 2024 01:54 PM [facility] BRAIN NATRIURETIC PEPTIDE PLASMA Specimen Type : PLASMA No comment entered. Ordering Provider: ELIZABETH COATES Report Released Date/Time: Jul 27, 2024 03:39 PM Reporting Lab: [address] [address] Performing Lab: [address] [address] BRAIN NATRIURETIC PEPTIDE 257.2 pg/mL H 0- 100 Jul 27, 2024 01:54 PM [facility] TROPONIN I PLASMA Specimen Type: PLASM A Comment: No hemolysis noted. Ordering Provider: ELIZABETH COATES Report Released Date/Time: Jul 27, 2024 03:39 PM Reporting Lab: [address] [address] Performing Lab: [address] [address] TROPONIN I 0.011 ng/mL 0-0.033 Jul 27, 2024 01:54 PM [facility] COMPREHENSIVE METABOLIC PANEL PLASMA Specimen Type: PLASMA Comment: No hemolysis noted. Ordering Provider: ELIZABETH COATES Report Released Date/Time: Jul 27, 2024 03:39 PM Reporting Lab: [address] [address] Performing Lab: [address] [address] CREATININE 0.70 mg/dL 0.7-1.3 UREA NITROGEN 7.4 [...] 101.0 >60 Jul 27, 2024 01:54 PM [facility] CBC BLOOD Specimen Type: BLOOD No comment entered. Ordering Provider: ELIZABETH COATES Report Released Date/Time: Jul 27, 2024 03:39 PM Reporting Lab: [address] [address] Performing Lab: [place] [address] [facility] [address] WBC 3.2 10*3/uL L 3.6-11.2 RBC 3.12 [...] 10*3/uL 2.10-8.00 Jul 21, 2024 02:00 PM [facility] B12 SERUM Specimen Type: SERUM No comment entered. Ordering Provider: JORJE DENSON Report Released Date/Time: Jul 21, 2024 12:54 PM Reporting Lab: [facility] [address] [place] [address] Performing Lab: [address] [address] B12 1584 pg/mL H 213-816 Jul 21, 2024 02:00 PM [facility] FOLATE (STL-MA) SERUM Specimen Type: SERUM No comment entered. Ordering Provider: JORJE DENSON Report Released Date/Time: Jul 21, 2024 12:54 PM Reporting Lab: [address] [address] Performing Lab: [address] [address] FOLATE (STL-MA) 9.1 ng/mL 7-20 Jul 21, 2024 02:00 PM [facility] IRON/TIBC PROFILE SERUM Specimen Type: SERUM No comment entered. Ordering Provider: JORJE DENSON Report Released Date/Time: Jul 21, 2024 12:54 PM Reporting Lab: [address] [address] Performing Lab: [address] [address] TIBC 243 ug/dL L 250-450 TRANSFERRIN 194 mg/dL 163-344 IRON SATURATION 20 20-50 IRON 49 ug/dL L 65-175 Jul 21, 2024 02:00 PM [facility] CBC BLOOD Specimen Type: BLOOD Comment: Manual differential performed 07/20/2024 No clots Ordering Provider: JORJE DENSON Report Released Date/Time: Jul 21, 2024 12:54 PM Reporting Lab: [address] [address] Performing Lab: [address] [address] WBC 5.6 10*3/uL 3.6-11.2 RBC 2.87 10*6/uL [...] H 1.0-7.0 Jul 20, 2024 08:55 PM [facility] PT/INR NEW (STL-MA) PLASMA Specimen Type: PLAS MA No comment entered. Ordering Provider: AURA ZACARIAS Report Released Date/Time: Jul 18, 2024 01:30 PM Reporting Lab: [address] [address] Performing Lab: [address] [address] PROTIME 12.8 s H 9.4-12.5 INR VALUE 1.1 {INR} Jul 20, 2024 08:55 PM [facility] BASIC METABOLIC PANEL PLASMA Specimen Type: PL ASMA Comment: No hemolysis noted. Ordering Provider: AURA ZACARIAS Report Released Date/Time: Jul 18, 2024 01:30 PM Reporting Lab: [address] [address] Performing Lab: [address] [address] CREATININE 0.74 mg/dL 0.7-1.3 UREA NITROGEN 15.1 mg/dL 9.0-25.0 GLUCOSE 121 mg/dL H 72-99 SODIUM 130 meq/L L 136-145 POTASSIUM 3.7 meq/L 3.5-5 CHLORIDE 100 meq/L 98-107 CARBON DIOXIDE 20 meq/L L 22-31 CALCIUM 8.5 mg/dL 8.4-10.4 EGFR (CKD-EPI 2020) 99.3 >60 Jul 20, 2024 08:55 PM [facility] CBC BLOOD Specimen Type: BLOOD No comment entered. Ordering Provider: AURA ZACARIAS Report Released Date/Time: Jul 18, 2024 01:30 PM Reporting Lab: [facility] [address] [place] [address] Performing Lab: [address] [address] WBC 5.1 10*3/uL 3.6-11.2 RBC 2.90 10*6/uL [...] 10*3/uL 2.10-8.00 Jul 20, 2024 01:13 PM [facility] CBC BLOOD Specimen Type: BLOOD No comment entered. Ordering Provider: AURA ZACARIAS Report Released Date/Time: Jul 18, 2024 01:30 PM Reporting Lab: [facility] [address] [place] [address] Performing Lab: [address] [address] WBC 5.6 10*3/uL 3.6-11.2 RBC 3.11 10*6/uL [...] 10*3/uL 2.10-8.00 Jul 19, 2024 06:42 AM [facility] PT/INR NEW (STL-MA) PLASMA Specimen Type: PLAS MA No comment entered. Ordering Provider: AURA ZACARIAS Report Released Date/Time: Jul 18, 2024 01:30 PM Reporting Lab: [address] [address] Performing Lab: [address] [address] PROTIME 16.4 s H 9.4-12.5 INR VALUE 1.5 {INR} Jul 19, 2024 06:42 AM [facility] BASIC METABOLIC PANEL PLASMA Specimen Type: PL ASMA Comment: No hemolysis noted. Ordering Provider: AURA ZACARIAS Report Released Date/Time: Jul 18, 2024 01:30 PM Reporting Lab: [address] [address] Performing Lab: [address] [address] CREATININE 0.94 mg/dL 0.7-1.3 UREA NITROGEN 23.8 mg/dL 9.0-25.0 GLUCOSE 87 mg/dL 72-99 SODIUM 129 meq/L L 136-145 POTASSIUM 3.4 meq/L L 3.5-5 CHLORIDE 102 meq/L 98-107 CARBON DIOXIDE 20 meq/L L 22-31 CALCIUM 8.1 mg/dL L 8.4-10.4 EGFR (CKD-EPI 2020) 88.9 >60 Jul 19, 2024 06:42 AM [facility] CBC BLOOD Specimen Type: BLOOD No comment entered. Ordering Provider: AURA ZACARIAS Report Released Date/Time: Jul 18, 2024 01:30 PM Reporting Lab: [address] [address] Performing Lab: [address] [address] WBC 5.1 10*3/uL 3.6-11.2 RBC 2.45 10*6/uL [...] H 1.0-7.0 Jul 18, 2024 08:51 PM [facility] CBC BLOOD Specimen Type: BLOOD No comment entered. Ordering Provider: AURA ZACARIAS Report Released Date/Time: Jul 18, 2024 01:30 PM Reporting Lab: [facility] [address] [facility] [address] Performing Lab: [facility] [address] [place] [address] WBC 6.2 10*3/uL 3.6-11.2 RBC 2.44 10*6/uL [...] 10*3/uL 2.10-8.00 Jul 18, 2024 04:19 PM [facility] CBC BLOOD Specimen Type: BLOOD No comment entered. Ordering Provider: AURA ZACARIAS Report Released Date/Time: Jul 18, 2024 01:30 PM Reporting Lab: [facility] [address] [facility] [address] Performing Lab: [facility] [address] [place] [address] WBC 6.1 10*3/uL 3.6-11.2 RBC 2.57 10*6/uL [...] 10*3/uL 2.10-8.00 Jul 18, 2024 06:32 AM [facility] LACTIC ACID (STL-PB) PLASMA Specimen Type: NEIL SMA No comment entered. Ordering Provider: CAMDEN PATTON Report Released Date/Time: Jul 17, 2024 07:38 PM Reporting Lab: [place] [id number] [facility] [address] Performing Lab: [address] [address] LACTIC ACID (STL-PB) 1.3 mmol/L 0.5-2.0 Jul 18, 2024 06:32 AM [facility] PT/INR NEW (L-MA) PLASMA Specimen Type: PLAS MA No comment entered. Ordering Provider: CAMDEN PATTON Report Released Date/Time: Jul 17, 2024 07:38 PM Reporting Lab: [address] [address] Performing Lab: [address] [address] PROTIME 19.1 s H 9.4-12.5 INR VALUE 1.7 {INR} Jul 18, 2024 06:32 AM [facility] CBC BLOOD Specimen Type: BLOOD Comment: HGB Called to : Dr. Posadas MOD at: [id number] on: 07/18/24 by: GMD Critical Verbal Readback Performed Ordering Provider: CAMDEN PATTON Report Released Date/Time: Jul 17, 2024 07:38 PM Reporting Lab: [address] [address] Performing Lab: [address] [address] WBC 7.0 10*3/uL 3.6-11.2 RBC 2.04 10*6/uL [...] 10*3/uL 2.10-8.00 Jul 18, 2024 06:32 AM [facility] VANCOMYCIN (STL) PLASMA Specimen Type: PLASM A No comment entered. Ordering Provider: CAMDEN PATTON Report Released Date/Time: Jul 17, 2024 07:38 PM Reporting Lab: [address] [address] Performing Lab: [address] [address] VANCOMYCIN (STL) 5.0 ug/mL L 10-15 Jul 18, 2024 06:32 AM [facility] MAGNESIUM PLASMA Specimen Type: PLASM A Comment: No hemolysis noted. Ordering Provider: CAMDEN PATTON Report Released Date/Time: Jul 17, 2024 07:38 PM Reporting Lab: [address] [address] Performing Lab: [address] [address] MAGNESIUM 1.5 mg/dL L 1.6-2.6 Jul 18, 2024 06:32 AM [facility] PHOSPHOROUS PLASMA Specimen Type: PLASM A Comment: No hemolysis noted. Ordering Provider: CAMDEN PATTON Report Released Date/Time: Jul 17, 2024 07:38 PM Reporting Lab: [address] [address] Performing Lab: [address] [address] PHOSPHOROUS 2.2 mg/dL L 2.3-4.7 Jul 18, 2024 06:32 AM [facility] COMPREHENSIVE METABOLIC PANEL PLASMA Specimen Type: PLASMA Comment: No hemolysis noted. Ordering Provider: CAMDEN PATTON Report Released Date/Time: Jul 17, 2024 07:38 PM Reporting Lab: [address] [address] Performing Lab: [address] [address] CREATININE 1.08 mg/dL 0.7-1.3 UREA NITROGEN 40.5 [...] 75.2 >60 Jul 18, 2024 12:05 AM [facility] HGB,HCT,PLT BLOOD Specimen Type: BLOOD No comment entered. Ordering Provider: ROSA VARGAS Report Released Date/Time: Jul 17, 2024 09:07 PM Reporting Lab: [facility] [address] [place] [address] Performing Lab: [facility] [address] [place] [address] HGB 7.3 g/dL L 13.1-16.8 HCT 21.0 L 38.2-48.4 PLT 64 10*3/uL L 150-400 Jul 17, 2024 07:45 PM [facility] MRSA SURVL NARES DNA NARES Specimen [...] 17, 2024 07:38 PM Reporting Lab: [address] [address] Performing Lab: [address] [address] MRSA SURVL NARES DNA Negative Negative Jul 17, 2024 07:36 PM [facility] GLUCOSE,BLOOD-poct (STL) BLOOD Specimen Type: BLOOD Comment: Test Performed by: [id number] Meter #: [id number] Ordering Provider: CAMDEN PATTON Report Released Date/Time: Jul 17, 2024 07:48 PM Reporting Lab: [address] [address] Performing Lab: [address] [address] GLUCOSE,BLOOD-poct (L) 98 mg/dL 72-99 Jul 17, 2024 07:35 PM [facility] BLOOD GAS PANEL ABG ([facility]) VENOUS BLOOD Specimen Type : VENOUS BLOOD Comment: normalcy status - Below absolute low-off instrument scale Test Performed by: [id number] Meter #: [id number] Ordering Provider: CAMDEN PATTON Report Released Date/Time: Jul 17, 2024 07:37 PM Reporting Lab: [facility] [address] [place] [address] Performing Lab: [address] [address] GEM PH 7.39 7.31-7.41 GEM PCO2 31 [...] TEMP 37.0 Jul 17, 2024 07:10 PM [facility] URINALYSIS W/ CX REFLEX (STL-PB) URINE Specim en Type: URINE No comment entered. Ordering Provider: CASEY BOONE Report Released Date/Time: Jul 17, 2024 04:24 PM Reporting Lab: [facility] [address] [place] [address] Performing Lab: [address] [address] URINE COLOR Light-Yellow Yellow U.BILIRUBIN Negative mg/dL Negative U.PH 6.0 5.0-8.0 APPEARANCE Clear Clear U.NITRITE Negative mg/dL Negative URN.GLUCOSE Normal mg/dL Negative URN.PROTEIN Negative mg/dL URN.UROBILINOGEN Normal mg/dL Normal URN.BLOOD Negative mg/dL Negative-Trace URN.KETONES Trace mg/dL Negative-Trace URN.LEUK.EST. Negative mg/dL Negative-Tr april URN.SPECIFIC GRAVITY 1.029 Jul 17, 2024 06:25 PM [facility] HAPTOGLOBIN (STL) PLASMA Specimen Type: PLASM A No comment entered. Ordering Provider: CASEY BOONE Report Released Date/Time: Jul 17, 2024 06:13 PM Reporting Lab: [address] [address] Performing Lab: [address] [address] HAPTOGLOBIN (STL) 93 mg/dL 44-215 Jul 17, 2024 06:25 PM [facility] RETICULOCYTE PANEL BLOOD Specimen Type: BLOOD No comment entered. Ordering Provider: CASEY BOONE Report Released Date/Time: Jul 17, 2024 06:13 PM Reporting Lab: [address] [address] Performing Lab: [address] [address] RETIC RATIO 7.35 H 0.50-2.30 IRF 39.7 H 2.3-13.4 RETICULOCYTE HEMOGLOBIN EQUIVALENT 35.8 pg 28.2-36.6 RETIC COUNT,ABS 0.129 10*6/uL H 0.022-0.10 1 Jul 17, 2024 06:25 PM [facility] LDH PLASMA Specimen Type: PLASM A No comment entered. Ordering Provider: CASEY BOONE Report Released Date/Time: Jul 17, 2024 06:13 PM Reporting Lab: [address] [address] Performing Lab: [address] [place] [address] LDH 305 U/L H 125-243 Jul 17, 2024 06:25 PM [facility] CBC BLOOD Specimen Type: BLOOD Comment: HGB Called to : Watson White at: [id number] on:[id number] by: [facility] Critical Verbal Readback Performed Ordering Provider: CAMDEN PATTON Report Released Date/Time: Jul 17, 2024 07:09 PM Reporting Lab: [address] [address] Performing Lab: [address] [address] WBC 27.6 10*3/uL H 3.6-11.2 RBC 1.76 [...] H 2.10-8.00 Jul 17, 2024 04:59 PM [facility] BLOOD GAS PANEL ABG (STL) VENOUS BLOOD Specimen Type : VENOUS BLOOD Comment: Test Performed by: [id number] Meter #: [id number] Ordering Provider: CASEY BOONE Report Released Date/Time: Jul 17, 2024 05:00 PM Reporting Lab: [place] [address] [facility] [address] Performing Lab: [address] [address] GEM PH 7.39 7.31-7.41 GEM PCO2 33 [...] TEMP 37.0 Jul 17, 2024 04:25 PM [facility] MAGNESIUM PLASMA Specimen Type: PLASM A Comment: No hemolysis noted. Ordering Provider: CASEY BOONE Report Released Date/Time: Jul 17, 2024 04:24 PM Reporting Lab: [address] [address] Performing Lab: [address] [address] MAGNESIUM 1.4 mg/dL L 1.6-2.6 Jul 17, 2024 04:25 PM [facility] PT/INR NEW (STL-MA) PLASMA Specimen Type: PLAS MA No comment entered. Ordering Provider: CASEY BOONE Report Released Date/Time: Jul 17, 2024 04:24 PM Reporting Lab: [address] [address] Performing Lab: [address] [address] PROTIME 25.3 s H 9.4-12.5 INR VALUE 2.3 {INR} Jul 17, 2024 04:25 PM [facility] COVID-19 DIAGNOSTIC (FLU/RSV)(STL) NASOPHARYNX Spec imen [...] 17, 2024 04:24 PM Reporting Lab: [address] [address] Performing Lab: [address] [address] INFLUENZA A Negative Negative INFLUENZA B Negative Negative COVID-19 (STL-PB) Not Detected Not Detec nate RSV (Cepheid) NEGATIVE Negative Jul 17, 2024 04:25 PM [facility] COMPREHENSIVE METABOLIC PANEL PLASMA Specimen Type: PLASMA Comment: No hemolysis noted. Ordering Provider: CASEY BOONE Report Released Date/Time: Jul 17, 2024 04:24 PM Reporting Lab: [address] [address] Performing Lab: [address] [address] CREATININE 1.25 mg/dL 0.7-1.3 UREA NITROGEN 47.0 [...] 63.1 >60 Jul 17, 2024 04:25 PM [facility] CBC BLOOD Specimen Type: BLOOD No comment entered. Ordering Provider: CASEY BOONE Report Released Date/Time: Jul 17, 2024 04:24 PM Reporting Lab: [facility] [address] [facility] [address] Performing Lab: [facility] [address] [facility] [address] WBC 42.4 10*3/uL H 3.6-11.2 RBC 2.20 [...] Source Aug 14, 2024 11:01 PM 99 [facility] Aug 14, 2024 08:47 PM 4 [facility] Aug 14, 2024 08:15 PM 7 [facility] Aug 14, 2024 07:52 PM 98.2 75 126/83 22 99 8 [facility] Aug 14, 2024 07:01 PM 4 [facility] Social History: Smoking Status (Most current) and Tobacco Use (All prior to encounter date) This section includes the most current, and the historical, smoking and tobacco- related health factors from the [place] facility where the Encounter took place. Current Smoking Status This section includes the most current smoking, or tobacco-related health factor, from the [place] facility where the Encounter took place. Date/Time Current Smoking Status Comment Kaz jarrett Jul 17, 2024 04:02 PM ORYX ADMIT TOBACCO SCREEN NO [facility] Tobacco Use History This section includes a history of the smoking, or tobacco-related health factors, that were collected on or before the date of the Encounter. The data comes from the [place] facility where the Encounter took place. Date/Time Smoking Status/Tobacco Use Comment F acility Jan 20, 2023 03:49 PM VA-TOBACCO FORMER USER [facility] Jan 20, 2023 03:49 PM VA-TOBACCO QUIT 15 YRS OR MORE [facility] Feb 06, 2021 04:28 PM VA-TOBACCO FORMER USER [facility] Feb 06, 2021 04:28 PM VA-TOBACCO QUIT 15 YRS OR MORE [facility] Radiology Reports: +/- 30 days of [...] the Encounter. The data comes from all [place] treatment facilities. Date/Time Radiology Report Provider Source Aug 23, 2024 12:12 PM US BLOOD FLOW ABD/RENAL DOPPLER (COMPLETE): ABRAHAM HAWK [id number] -1955 M Exm Date: AUG 23, 2024@12:12 Req Phys: GILSON OG Loc: [facility] INPT VISIT (Req'g L Img Loc: [facility] Service: [facility], [facility] [address] [place] [address] (Case [id number] COMPLETE) US BLOOD FLOW ABD/RENAL DOPPLER ((US Detailed) CPT:00513 Reason for Study: dopplers Clinical History: Report Status: Verified Date Reported: AUG 23, 2024 Date Verified: AUG 23, 2024 Executive Kitchen Manager E-Sig:/ES/PETROS MCCORD Report: Case [id number], [id number]. US ABDOMEN LTD, SINGLE ORG OR QUADRANT, [...] vasculature. Primary Interpreting Staff: PETROS MCCORD MD (Executive Kitchen Manager) /PETROS SRIVASTAVA [facility] Aug 23, 2024 12:12 PM US ABDOMEN LTD, SINGLE ORG OR QUADRANT: ABRAHAM HAWK [id number] -1955 M Exm Date: AUG 23, 2024@12:12 Req Phys: GILSON OG Pat Loc: [facility] MED INPT VISIT (Req'g L Img Loc: [facility] Service: [address] [address] (Case [id number] COMPLETE) US ABDOMEN LTD, SINGLE ORG OR CARLITOS(US Detailed) CPT:74339 Reason for Study: Possible SBP, RUQUS with dopplers, please comment on ascites? Clinical History: Report Status: Verified Date Reported: AUG 23, 2024 Date Verified: AUG 23, 2024 Executive Kitchen Manager E-Sig:/ES/PETROS MCCORD Report: Case [id number], [id number]. US ABDOMEN LTD, SINGLE ORG OR QUADRANT, [...] vasculature. Primary Interpreting Staff: PETROS MCCORD MD (Executive Kitchen Manager) /PETROS SRIVASTAVA [facility] Aug 10, 2024 02:[address] ABD PEL W/CONT & 3D: ABRAHAM HAWK [id number] -1955 M Exm Date: AUG 10, 2024@14:33 Req Phys: YASIR SANZ MD Pat Loc: [facility]-EMERGENCY DEPT 2ND SHIFT (R Img Loc: [facility]-CT IMAGING [facility] Service: Unknown [facility], [address] [address] (Case [id number] COMPLETE) CT ABDOMEN AND PELVIS W/CONTRAST (CT Detailed) CPT:34495 Contrast Media : Non-ionic Iodinated Reason for Study: Abdominal pain, vomiting Clinical History: Responsible Attending: Svetlana Attending Contact Number: [id number] Resident Contact Number: Abdominal pain, vomiting Allergies listed in CPRS chart: Patient has answered NKA Creatinine:CREATININE 0.82 mg/dL 08/10/2024 11:30 /eGFR: STL EGFR (within one year). CREATININE 0.82 mg/dL (08/10/24 11:30) Wt: 152.1 lb [68.99 kg] (08/10/2024 11:31) History of: Renal failure, chronic or acute renal disease: NO Report Status: Verified Date Reported: AUG 10, 2024 Date Verified: AUG 10, 2024 Executive Kitchen Manager E-Sig:/ES/PETROS MCCORD Report: Case [id number]. CT ABDOMEN AND PELVIS W/CONTRAST. Gastrointestinal contrast: [...] inguinal hernias. Dictated by Kenneth Albright DO (executive vice president and chief operating officer). I, Petros Mccord, have reviewed the images and report and concur with these findings. Primary Interpreting Staff: PETROS MCCORD MD (Executive Kitchen Manager) Primary Interpreting Resident: KENNETH ALBRIGHT, Scorekeeper /PETROS REESE [facility] Aug 01, 2024 10:20 AM PET/CT TUMOR IMAGING (SKULL TO MID-THIGH)-P: ABRAHAM HAWK [id number] -1955 M Exm Date: AUG 01, 2024@10:20 Req Phys: TONY SIMMONS Loc: [facility]-ONCOLOGY [place] (Req[place]g Loc[place] [facility] [place] Service: [address] [address] (Case [id number] COMPLETE) PET/CT TUMOR SKULL BASE TO MID-T(NM Detailed) CPT:62223 CPT Modifiers : PS PET TUMOR SUBSQ TX STRATEGY Reason for Study: Nasopharyngeal cancer (Case [id number] COMPLETE) F-18 FLUORODEOXYGLUCOSE (FDG),PER(NM Detailed) CPT:A9552 Clinical History: Report Status: Verified Date Reported: AUG 01, 2024 Date Verified: AUG 01, 2024 Executive Kitchen Manager E-Sig:/LOLY/NATASHA LEIJA Report: PATIENT NAME: ABRAHAM HAWK. CASE #: [id number], [id number]. PROCEDURE: PET/CT study Indication: Nasopharyngeal cancer HISTORY: [...] lytic osseous lesion is noted within the ynywc-fe-jucc. Impression: 1. The previous sites of FDG [...] NEEDED Primary Interpreting Staff: NATASHA LEIJA MD (Executive Kitchen Manager) /PFT NATASHA LEIJA [facility] Jul 27, 2024 03:41 PM CHEST PORTABLE: ABRAHAM HAWK [id number] -1955 M Exm Date: JUL 27, 2024@15:41 Req Phys: ELIZABETH COATES Loc: [facility]-EMERGENCY DEPT 2ND SHIFT (R Img Loc: [facility]-MAIN RADIOLOGY SUITE Service: Unknown [facility], [facility] [address] [place] [address] (Case [id number] COMPLETE) CHEST PORTABLE (RAD Detailed) CPT:93405 Proc Modifiers : Portable Reason for Study: sob Clinical History: Report Status: Verified Date Reported: JUL 27, 2024 Date Verified: JUL 27, 2024 Executive Kitchen Manager E-Sig:/ES/Sol Abraham MD Report: CASE [id number]. AP portable view chest. COMPARISON: Chest x-ray [...] advised. Report dictated by Krystian Sultana D.O. (executive vice president and chief operating officer) I, Sol Abraham, have reviewed the images and report and concur with these findings. Primary Interpreting Staff: Sol Abraham MD, Radiologist (Executive Kitchen Manager) Primary Interpreting Resident: Krystian Sultana D.O., Resident Physician /SOL DHALIWAL [facility] Jul 17, 2024 06:[address] ABD PEL W/CONT & 3D: ABRAHAM HAWK [id number] -1955 M Exm Date: JUL 17, 2024@18:18 Req Phys: CASEY BOONE Loc: 4-C SIC-[facility]/07-17-2024@19:47 Img Loc: [facility]-CT IMAGING [facility] Service: Unknown [facility], [facility] [address] [place] [address] (Case [id number] COMPLETE) CT ABDOMEN AND PELVIS W/CONTRAST (CT Detailed) CPT:84932 Contrast Media : Non-ionic Iodinated Reason for Study: septic shock, abd pain Clinical History: Responsible Attending: Nils Attending Contact Number: [phone] Resident Contact Number: Septic shock, Patient with [...] 17, 2024 Date Verified: JUL 17, 2024 Executive Kitchen Manager E-Sig: Report: CT THORAX W/CONT (PE) [PRINTSET], CT ABDOMEN AND PELVIS W/CONTRAST [PRINTSET] Comparison: 03/17/2022, 04/23/2024 Clinical History: RO PE The study was protocoled and supervised at the local [place] facility. Chest 12 series and 1585 images were subsequently received by the [place] [facility] ([facility]P) for interpretation. Abdomen and pelvis 9 series and 1365 images were subsequently received by the [place] [facility] ([facility]P) for interpretation. Total [...] from 09/12/2023. READING PHYSICIAN: Guilherme Talbert M.D. -[phone] 07/17/2024 17:44 PST [facility] [place] [facility] [phone] (For Medical Practitioner Use Only) Attention Patients / Veterans: If you have questions or concerns about these test results, please contact your ordering provider or primary care team. Primary Interpreting Staff: RADIOLOGY,OUTSIDE SERVICE, Staff Physician / RADIOLOGY,OUTSIDE SERVICE [facility] Jul 17, 2024 06:[address] PE CHEST W/3D: ABRAHAM HAWK [id number] -1955 M Ex Date: JUL 17, 2024@18:17 Req Phys: CASEY BOONE Pat Loc: 4-C SICU-[facility]/07-17-2024@19:47 Img Loc: [facility]-CT IMAGING [facility] Service: Unknown [facility], [address] [address] (Case [id number] COMPLETE) CT THORAX W/CONT (PE) (CT Detailed) CPT:28782 Contrast Media : unspecified contrast media Reason for Study: RO PE Clinical History: Responsible Attending: Nils Attending Contact Number: [phone] Resident Contact Number: Patient with HCC and [...] 17, 2024 Date Verified: JUL 17, 2024 Executive Kitchen Manager E-Sig: Report: CT THORAX W/CONT (PE) [PRINTSET], CT ABDOMEN AND PELVIS W/CONTRAST [PRINTSET] Comparison: 03/17/2022, 04/23/2024 Clinical History: RO PE The study was protocoled and supervised at the local [place] facility. Chest 12 series and 1585 images were subsequently received by the [place] [facility] (NTP) for interpretation. Abdomen and pelvis 9 series and 1365 images were subsequently received by the [place] [facility] (NTP) for interpretation. Total [...] from 09/12/2023. READING PHYSICIAN: Guilherme Talbert M.D. -[phone] 07/17/2024 17:44 [facility] National Teleradiology Program [phone] (For Medical Practitioner Use Only) Attention Patients / Veterans: If you have questions or concerns about these test results, please contact your ordering provider or primary care team. Primary Interpreting Staff: RADIOLOGY,OUTSIDE SERVICE, Staff Physician / RADIOLOGY,OUTSIDE SERVICE [facility] Pathology Reports: +/- [...] the Encounter. The data comes from all [place] treatment facilities. Date/Time Pathology Report Provider Source [...] Performing Laboratory: Surgical Pathology Report Performed By: [address]# [id number] [address] [place] [id number] $FTR - - - - - - [...] - - ABRAHAM HAWK STANDARD FORM 515 ID:[id number] SEX:M :1955 AGE: 68 LOC:APFEE PCP: Deirdre Wild /loly/ CRISTIANA TEMPLETON Pathologist Signed: 08/16/2024 09:[address] [facility] Aug 11, 2024 06:00 AM LR MICROBIOLOGY RE PORT: Accession [UID]: [id number] [[id number]] Received: Aug 11, 2024@06:19 Collection sample: B D BLD. BOTTLE Collection date: Aug 11, 2024 06:00 Site/Specimen: BLOOD Provider: GILSON OG Test(s) ordered: BLOOD CULT (SET 1)............ completed: Aug 17, 2024 10:06 * BACTERIOLOGY FINAL REPORT => Aug 17, 2024 10:22 TECH CODE: [id number] Bacteriology Remark(s): 2. KAReg Culture shows NO GROWTH IN 6 DAYS =--=--=--=--=--=--=--=--=-- =--=--=--=--=--=--=--=--=-- =--=--=--=--=--=--=--=-- Performing Laboratory: Bacteriology Report Performed By: [facility] [address] [place] [address] CLIA# [id number] [address] [address] [facility] Jul 17, 2024 05:10 PM LR MICROBIOLOGY RE PORT: Accession [UID]: [id number] [[id number]] Received: Jul 17, 2024@17:30 Collection sample: B D BLD. BOTTLE (SET 2)Collection date: Jul 17, 2024 17:10 Site/Specimen: BLOOD Provider: CASEY BOONE Test(s) ordered: BLOOD CULT (SET 2)............ completed: Jul 23, 2024 14:26 * BACTERIOLOGY FINAL REPORT => Jul 23, 2024 14:28 TECH CODE: [id number] Bacteriology Remark(s): CULTURE IS NEGATIVE TO DATE, ALL POSITIVES ARE ROUTINELY CALLED. KI Culture shows NO GROWTH IN 6 DAYS. 07/23/24 KI =--=--=--=--=--=--=--=--=-- =--=--=--=--=--=--=--=--=-- =--=--=--=--=--=--=--=-- Performing Laboratory: Bacteriology Report Performed By: [facility] [address] [place] [address] CLIA# [id number] [address] [place] [phone] [facility] Jul 17, 2024 05:10 PM MICROBIOLOGY RE PORT: Accession [UID]: [id number] [[id number]] Received: Jul 17, 2024@17:30 Collection sample: B D BLD. BOTTLE Collection date: Jul 17, 2024 17:10 Site/Specimen: BLOOD Provider: CASEY BOONE Test(s) ordered: BLOOD CULT (SET 1)............ completed: Jul 23, 2024 14:26 * BACTERIOLOGY FINAL REPORT => Jul 23, 2024 14:28 TECH CODE: [id number] Bacteriology Remark(s): CULTURE IS NEGATIVE TO DATE, ALL POSITIVES ARE ROUTINELY CALLED. KI Culture shows NO GROWTH IN 6 DAYS. 07/23/24 KI =--=--=--=--=--=--=--=--=-- =--=--=--=--=--=--=--=--=-- =--=--=--=--=--=--=--=-- Performing Laboratory: Bacteriology Report Performed By: [facility] [address] CLIA# [id number] [address] [address] [facility] Encounter Notes: All associated encounter notes This section contains the clinical notes associated to the Encounter. Date/Time Encounter Note(s) Provider Source Aug 14, 2024 11:51 AM ANESTHESIOLOGY QUINN WSHEET: LOCAL TITLE: ANES INTRA-OP FLOWSHEET ST STANDARD TITLE: ANESTHESIOLOGY FLOWSHEET DATE OF NOTE: AUG 14, 2024@11:51 ENTRY DATE: AUG 14, 2024@11:51:22 AUTHOR: RADHA GARY EXP COSIGNER: URGENCY: STATUS: COMPLETED Patient: ABRAHAM HAWK SSN: [id number] Date of Operation: 08/14/2024 Surgery Start Time: Surgery End Time: Anesthesia Care Start: 08/14/2024 11:07 Anesthesia Care End: 08/14/2024 11:50 Anesthesia Method: - Monitored 08/14/2024 11:09 (Primary), Level Of Consciousness: Sedated, Monitors Applied, Oxygen Therapy: Mask, EtCO2 Verified: Waveform Positioning: Head Neutral, Head And Neck In Alignment With Spine, Pressure Points Padded & Checked, Eyes, Ears And Nose Free Of Pressure eyes taped ASA Number: 4 Procedure: egd Diagnosis: gi bleed Holding, Anesthesia, PACU Drugs: --------- Lidocaine: 50 mg Propofol: 850 mg Holding, Anesthesia, PACU Fluids: Resources: Headrest - Pillow Staff: --------- RADHA GARY PRIN. ANES. AGARWAL, MAYANK, ANES. SUPER. Procedure Date: 08/14/2024 Procedure Start Time: 08/14/2024 11:14 Procedure End Time: 08/14/2024 11:48 /loly/ RADHA GARY COURT TRANSCRIBER Signed: 08/14/2024 11:[address] [facility]
--- OUTSIDE RECORDS SUMMARY | 2024-10-08 17:13 | XMS_ITS | Encounter Summary ---
Author Name [facility] [place] [facility] [place] Address [address] [place] [address] Care Team Providers Care Infant Caregiver Name Role Phone SUKHJINDER CHAHAL Primary Care [...] SUPPL EMENT Nov 25, 2021 PLAN G [phone] ELLEN HAWK VID PATIENT AARP MED SUPP MEDIGAP PLAN G MEDIC ARE SUPPL EMENT Nov 25, 2021 PLAN G [id number] [phone] ELLEN HAWK VID PATIENT MEDICARE (WNR) MEDICARE (M) PART B Sep 25, 2021 PART B [id number] [phone] ELLEN HAWK VID PATIENT MEDICARE (WNR) MEDICARE (M) PART A Aug 25, 2021 PART A [id number] ELLEN HAWKD PATIENT Selected Encounter This section includes the information on record at [place] for the Encounter. 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 Date/Time Primary/Secondary Diagnosis Diagnosis Name Provider Source Apr 26, 2024 08:43 AM PRIMARY Malignant neoplasm of nasopharynx, unspecified CLIFFORD OSMAN [facility] Plan of Treatment: Future Appointments (+ 6 months) and Future Tests (+/- 45 days) The Plan of Treatment section includes future care activities for the patient from all [place] [facility]. This section includes future appointments and future orders which are active, pending or scheduled. Future Appointments This section includes appointments that were scheduled to occur 6 months from the date of the Encounter, up to a maximum of 20 appointments. The data comes from all [place] treatment facilities. Appointment Date/Time Appointment Type Appointme nt Facility Name May 02, 2024 01:30 PM AMBULATORY - SURGERY [facility] May 11, 2024 01:00 PM AMBULATORY - NONE [facility] May 11, 2024 02:15 PM AMBULATORY - NONE [facility] May 11, 2024 02:30 PM AMBULATORY - MEDICINE [facility] May 17, 2024 02:15 PM AMBULATORY - NONE [facility] May 22, 2024 03:30 PM AMBULATORY - NONE [facility] May 28, 2024 01:30 PM AMBULATORY - NONE [facility] Jun 07, 2024 11:15 AM AMBULATORY - REHAB MEDICIN E [facility] Jun 07, 2024 01:00 PM AMBULATORY - MEDICINE [facility] Jul 13, 2024 11:30 AM AMBULATORY - MEDICINE [facility] Jul 13, 2024 12:00 PM AMBULATORY - MEDICINE [facility] Jul 17, 2024 04:02 PM AMBULATORY - MEDICINE [facility] Jul 25, 2024 01:00 PM AMBULATORY - MEDICINE [facility] Jul 26, 2024 10:00 AM AMBULATORY - MEDICINE [facility] Jul 27, 2024 03:14 PM AMBULATORY - MEDICINE [facility] Aug 01, 2024 10:15 AM AMBULATORY - [facility] Aug 02, 2024 11:30 AM AMBULATORY - MEDICINE [facility] Aug 02, 2024 11:31 AM AMBULATORY - MEDICINE [facility] Aug 10, 2024 11:00 AM AMBULATORY - MEDICINE [facility] Aug 10, 2024 11:31 AM AMBULATORY - MEDICINE [facility] Lab Results: +/- 30 days of the [...] Type Comment May 11, 2024 02:35 PM [facility] TSH W/ REFLEX FT4 (STL) PLASMA Specimen Type: PLASMA No comment entered. Ordering Provider: TONY SIMMONS Report Released Date/Time: Jan 05, 2024 02:09 PM Reporting Lab: [facility] [address] [facility] [facility] [address] Performing Lab: [facility] [address] [place] [phone] TSH 1.974 u[IU]/mL 0.47-5 May 11, 2024 02:20 PM [facility] PT/INR NEW (STL-MA) PLASMA Specimen Type: PLAS MA No comment entered. Ordering Provider: BAL CAREY Report Released Date/Time: May 11, 2024 02:03 PM Reporting Lab: [address] [address] Performing Lab: [facility] [address] [place] [phone] PROTIME 12.1 s 9.4-12.5 INR VALUE 1.1 {INR} May 11, 2024 02:20 PM [facility] HEP B CORE AB TOTAL. (STL) SERUM Specimen Typ e: SERUM No comment entered. Ordering Provider: BAL CAREY Report Released Date/Time: May 11, 2024 02:18 PM Reporting Lab: [address] [address] Performing Lab: [address] [address] HEP B CORE AB TOTAL. (STL) Nonreactive N onreactive May 11, 2024 02:20 PM [facility] APTT PLASMA Specimen Type: PLASM A No comment entered. Ordering Provider: BAL CAREY Report Released Date/Time: May 11, 2024 02:03 PM Reporting Lab: [address] [address] Performing Lab: [address] [address] APTT 28.7 s 26.7-39.9 May 11, 2024 02:20 PM [facility] COMPREHENSIVE METABOLIC PANEL PLASMA Specimen Type: PLASMA Comment: No hemolysis noted. Ordering Provider: BAL CAREY Report Released Date/Time: May 11, 2024 02:03 PM Reporting Lab: [address] [address] Performing Lab: [address] [address] CREATININE 1.06 mg/dL 0.7-1.3 UREA NITROGEN 20.5 [...] 76.9 >60 May 11, 2024 02:19 PM [facility] PROTEIN ELECTROPHORESIS BLOOD SERUM Specimen Type: SERUM Comment: Reference Range: None Detected normalcy status - Abnormal normalcy status - Abnormal NOTE: THIS RESULT IS FLAGGED ABNORMAL Evaluation reveals a restricted band (M-spike) migrating in the gamma globulin region. If not already requested, Immunofixation should be considered. Test Performed by [facility], [facility], [address] [place] [address] Tristin Iyer M.D., Ph.D., Director of Laboratories , CLIA [id number] PREVIOUS SUGAR: IgG [place] Ordering Provider: TONY SIMMONS Report Released Date/Time: Jan 05, 2024 02:08 PM Reporting Lab: [facility] [address] [place] [phone] Performing Lab: [address] ALPHA-1 GLOBULIN(SO-PB-STL) 0.3 g/dL 0.2 -0.3 ALPHA-2 GLOBULIN(SO-PB-STL) 0.8 g/dL 0.5 -0.9 BETA 1 GLOBULIN(SO-PB-STL) 0.4 g/dL 0.4- 0.6 GAMMA GLOBULIN (SO-PB-STL) 2.0 g/dL H 0.8- 1.7 TOTAL PROTEIN (SO-PB-STL) 7.9 g/dL 6.1-8 .1 ALBUMIN(ELECTROPHORESIS 4.1 g/dL 3.8-4.8 BETA 2 GLOBULIN (SO-PB) 0.3 g/dL 0.2-0.5 INTERPRETATION (STL-PB) SEE NOTE ABNORMAL PROTEIN BAND 1 (SO-PB-STL) 1.2 g/dL H May 11, 2024 02:19 PM [facility] IGM (STL) PLASMA Specimen Type: PLASM A Comment: No hemolysis noted. Ordering Provider: TONY SIMMONS Report Released Date/Time: Jan 05, 2024 02:08 PM Reporting Lab: [facility] [address] [place] [address] Performing Lab: [facility] [address] [place] [phone] IGM (STL) 117 mg/dL 22-240 May 11, 2024 02:19 PM [facility] IGA (STL) PLASMA Specimen Type: PLASM A Comment: No hemolysis noted. Ordering Provider: TONY SIMMONS Report Released Date/Time: Jan 05, 2024 02:08 PM Reporting Lab: [address] [address] Performing Lab: [address] [address] IGA (STL) 117 mg/dL 63-484 May 11, 2024 02:19 PM [facility] KAPPA/LAMBDA FREE LC PANEL (STL-PB) SERUM Spe cimen Type: SERUM No comment entered. Ordering Provider: TONY SIMMONS Report Released Date/Time: Jan 05, 2024 02:08 PM Reporting Lab: [address] [address] Performing Lab: [address] [address] KAPPA FREE LC (STL) 92.4 mg/L H 2.4-20.7 LAMBDA FREE LC (STL) 25.6 mg/L 4.2-27.7 KAPPA/LAMBDA RATIO (STL) 3.61 H 0.22-1. 74 May 11, 2024 02:19 PM [facility] IGG (STL) PLASMA Specimen Type: PLASM A Comment: No hemolysis noted. Ordering Provider: TONY SIMMONS Report Released Date/Time: Jan 05, 2024 02:08 PM Reporting Lab: [address] [address] Performing Lab: [facility] [address] [facility] [address] IGG (STL) 2162 mg/dL H 540-1822 May 11, 2024 02:19 PM [facility] MAGNESIUM PLASMA Specimen Type: PLASM A Comment: No hemolysis noted. Ordering Provider: TONY SIMMONS Report Released Date/Time: Jan 05, 2024 02:09 PM Reporting Lab: [address] [address] Performing Lab: [address] [address] MAGNESIUM 1.9 mg/dL 1.6-2.6 May 11, 2024 02:19 PM [facility] PHOSPHOROUS PLASMA Specimen Type: PLASM A Comment: No hemolysis noted. Ordering Provider: TONY SIMMONS Report Released Date/Time: Jan 05, 2024 02:09 PM Reporting Lab: [address] [address] Performing Lab: [address] [address] PHOSPHOROUS 2.5 mg/dL 2.3-4.7 May 11, 2024 02:19 PM [facility] COMPREHENSIVE METABOLIC PANEL PLASMA Specimen Type: PLASMA Comment: No hemolysis noted. Ordering Provider: TONY SIMMONS Report Released Date/Time: Jan 05, 2024 02:08 PM Reporting Lab: [address] [address] Performing Lab: [address] [address] CREATININE 1.04 mg/dL 0.7-1.3 UREA NITROGEN 19.6 [...] 78.7 >60 May 11, 2024 02:19 PM [facility] CBC BLOOD Specimen Type: BLOOD No comment entered. Ordering Provider: TONY SIMMONS Report Released Date/Time: Jan 05, 2024 02:08 PM Reporting Lab: [place] [id number] [facility] [address] Performing Lab: [address] [address] WBC 4.5 10*3/uL 3.6-11.2 RBC 4.26 10*6/uL [...] 10*3/uL 2.10-8.00 Apr 23, 2024 11:26 AM [facility] GLUCOSE,BLOOD-poct (STL) BLOOD Specimen Type: BLOOD Comment: Test Performed by: [id number] Meter #: [id number] Ordering Provider: SUKHJINDER CHAHAL Report Released Date/Time: Apr 23, 2024 11:43 AM Reporting Lab: [facility] [address] [facility] [address] Performing Lab: [facility] [address] [facility] [address] GLUCOSE,BLOOD-poct (STL) 117 mg/dL H 72-99 Social History: Smoking Status (Most current) and Tobacco Use (All prior to encounter date) This section includes the most current, and the historical, smoking and tobacco- related health factors from the [place] facility where the Encounter took place. Current Smoking Status This section includes the most current smoking, or tobacco-related health factor, from the [place] facility where the Encounter took place. Date/Time Current Smoking Status Comment Facil ity Jan 20, 2023 03:49 PM VA-TOBACCO FORMER USER [facility] Tobacco Use History This section includes a history of the smoking, or tobacco-related health factors, that were collected on or before the date of the Encounter. The data comes from the [place] facility where the Encounter took place. Date/Time Smoking Status/Tobacco Use Comment F acility Jan 20, 2023 03:49 PM VA-TOBACCO QUIT 15 YRS OR MORE [facility] Feb 06, 2021 04:28 PM VA-TOBACCO FORMER USER [facility] Feb 06, 2021 04:28 PM VA-TOBACCO QUIT 15 YRS OR MORE [facility] Radiology Reports: +/- 30 days of [...] the Encounter. The data comes from all [place] treatment facilities. Date/Time Radiology Report Provider Source May 22, 2024 03:03 PM MRI ORBITS,FACE & NECK W/O&W CONT: ABRAHAM HAWK [id number] -[id number] M Exm Date: MAY 22, 2024@15:03 Req Phys: TONY SIMMONS Loc: [facility]PHONE ONCOLOGY (Req'g Loc) Img Loc: [facility] IMAGING Service: Unknown [facility], [facility] [address] [place] [address] (Case [id number] COMPLETE) MRI ORBITS,FACE & NECK W/O&W CONT(MRI Detailed) CPT:23785 Contrast Media : unspecified contrast media Reason for Study: Restaging SENIOR FINANCIAL CANCER (Case [id number] COMPLETE) MRI 3D RENDERING W/O INDEPENDENT (MRI Detailed) CPT:73380 Clinical History: Responsible Attending: Tony Friedman Attending Contact Number: [phone] Resident Contact Number: Does your patient have [...] 23, 2024 Date Verified: MAY 23, 2024 Diesel Dragline Operator E-Sig:/ES/EUGENIE ALAN MD Report: Multiplanar, multisequence MRI [...] Primary Interpreting Staff: EUGENIE ALAN MD, Radiologist (Diesel Dragline Operator) /RAMONE LOWE [facility] Apr 23, 2024 11:44 AM PET/CT TUMOR IMAGING (SKULL TO MID-THIGH)-P: ABRAHAM HAWK [id number] -1955 M Exm Date: APR 23, 2024@11:44 Req Phys: TAMIKA CARRION Loc: -NUCLEAR MEDICINE PET SCAN 2 Img Loc: -PET-CT Service: [address] [address] (Case [id number] COMPLETE) PET/CT TUMOR SKULL BASE TO MID-T(NM Detailed) CPT:41305 CPT Modifiers : PS PET TUMOR SUBSQ TX STRATEGY Reason for Study: nasopharynx cancer (Case 583 COMPLETE) F-18 FLUORODEOXYGLUCOSE (FDG),PER(NM Detailed) CPT:A9552 Clinical History: Report Status: Verified Date Reported: APR 23, 2024 Date Verified: APR 23, 2024 Diesel Dragline Operator E-Sig:/ES/ROMANA PARISH M.D. Report: PATIENT NAME: ABRAHAM HAWK. CASE #: [id number], [id number]. PROCEDURE: PET/CT study from the vertex to [...] lytic osseous lesion is noted within the [id number]. Multilevel degenerative changes are noted throughout the [...] PARISH M.D., STAFF PHYSICIAN - DIAGNOSTIC IMAGING (Diesel Dragline Operator) /PFT ROMANA PARISH [facility] Encounter Notes: All associated encounter notes This section contains the clinical notes associated to the Encounter. 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 No chemo due to low platelets (WBC 3.2, Hgb 13.6, Plt 51 in 04/17/24), XRT alone started 09/26/23 but self terminated early (after 6 fxs) due to toxicity and bleeding, last treatment was on 10/06/23; pt opted homeopathic treatment (RSO oil) against medical advice. ENT clinic exam and scope on 04/23/24 notable for increased tumor burden in SENIOR FINANCIAL and L neck. 04/23/24 PET confirmed progression of locoregional disease. No surgical option per HN team; pt strongly against XRT given prior complications. PET (04/23/24) Impression: 1. The previous sites of FDG [...] according to HCC protocol if clinically warranted. PLAN: - Given location and extent of diseae, no curative surgical options available - Will have further discussion with radiation oncology and medical oncology teams established at [facility] to discuss any further options of care for palliaitive vs curative treatment. /loly/ ROXANNA OSMAN RESIDENT PHYSICIAN Signed: 04/26/2024 07:55 /es/ TAMIKA CARRION MD Staff Physician, Otolaryngology Cosigned: 04/26/2024 08:43 Receipt Acknowledged By: 04/26/2024 10:59 /es/ Chinedu Antonio MD RADIATION ONCOLOGIST 04/26/2024 09:51 /es/ EMMA REYNOSO REGISTERED NURSE 05/14/2024 09:55 /es/ TONY SIMMONS MD STAFF PHYSICIAN, HEMATOLOGY/ONCOLOGY 04/27/2024 07:41 /es/ KIM JETT Registered Nurse 04/27/2024 07:24 /es/ BAL CAREY Radiation Oncologist ROXANNA OSMAN [facility]
--- OUTSIDE RECORDS SUMMARY | 2024-10-08 17:13 | XMS_ITS | Encounter Summary ---
Author Name [facility] [place] [facility] [place] Address [address] [place] [address] Care Team Providers Care Launderer Hand Name Role Phone SUKHJINDER CHAHAL Primary Care [...] SUPPL EMENT Nov 25, 2021 PLAN G [id number] [phone] ELLEN HAWK VID PATIENT AARP MED SUPP MEDIGAP PLAN G MEDIC ARE SUPPL EMENT Nov 25, 2021 PLAN G [id number] [phone] ELLEN HAWK VID PATIENT MEDICARE (WNR) MEDICARE (M) PART B Sep 25, 2021 PART B [id number] ELLEN HAWK VID PATIENT MEDICARE (WNR) MEDICARE (M) PART A Aug 25, 2021 PART A [id number] ELLEN HAWKD PATIENT Selected Encounter This section includes the information on record at [place] for the Encounter. Date/Time Encounter Type Encounter Description Reason Provider Source Mar 21, 2024 02:00 PM OFFICE O/P EST MOD 30 MIN OPTOMETRY ICD-10-CM H25.13 Age-related nuclear cataract, bilateral VANDANA ZAZUETA Abdiel Encounter Template Text not used by [place] Assessments - Encounter Diagnoses This section includes the primary and secondary diagnoses documented for the Encounter. Date/Time Primary/Secondary Diagnosis Diagnosis Name Provider Source Mar 21, 2024 03:23 PM PRIMARY Age-related nuclear cataract, bilateral CARLITA,RAMY Reg [facility] Mar 21, 2024 03:23 PM SECONDARY Drusen (degenerative) of macula, left eye VANDANA ZAZUETA [facility] Mar 21, 2024 03:23 PM SECONDARY Presbyopia VANDANA ZAZUETA [facility] Plan of Treatment: Future Appointments (+ 6 months) and Future Tests (+/- 45 days) The Plan of Treatment section includes future care activities for the patient [facility] [place] [facility] This section includes future appointments and future orders which are active, pending or scheduled. Future Appointments This section includes appointments that were scheduled to occur 6 months from the date of the Encounter, up to a maximum of 20 appointments. The data comes from all [place] treatment facilities. Appointment Date/Time Appointment Type Appointme nt Facility Name Apr 17, 2024 08:00 AM AMBULATORY - MEDICINE [facility] Apr 20, 2024 01:00 PM AMBULATORY - REHAB MEDICIN E [facility] Apr 23, 2024 11:00 AM AMBULATORY - NONE [facility] Apr 23, 2024 01:30 PM AMBULATORY - SURGERY [facility] May 02, 2024 01:30 PM AMBULATORY - SURGERY [facility] May 11, 2024 01:00 PM AMBULATORY - NONE [facility] May 11, 2024 02:15 PM AMBULATORY - NONE [facility] May 11, 2024 02:30 PM AMBULATORY - MEDICINE [facility] May 17, 2024 02:15 PM AMBULATORY - NONE [facility] May 22, 2024 03:30 PM AMBULATORY - NONE [facility] May 28, 2024 01:30 PM AMBULATORY - NONE [facility] Jun 07, 2024 11:15 AM AMBULATORY - REHAB MEDICIN E [facility] Jun 07, 2024 01:00 PM AMBULATORY - MEDICINE [facility] Jul 13, 2024 11:30 AM AMBULATORY - MEDICINE [facility] Jul 13, 2024 12:00 PM AMBULATORY - MEDICINE [facility] Jul 17, 2024 04:02 PM AMBULATORY - MEDICINE [facility] Jul 25, 2024 01:00 PM AMBULATORY - MEDICINE [facility] Jul 26, 2024 10:00 AM AMBULATORY - MEDICINE [facility] Jul 27, 2024 03:14 PM AMBULATORY - MEDICINE [facility] Aug 01, 2024 10:15 AM AMBULATORY - NONE [facility] Social History: Smoking Status (Most current) and [...] 20, 2023 03:49 PM VA-TOBACCO FORMER USER [facility] Tobacco Use History This section includes a history of the smoking, or tobacco-related health factors, that were collected on or before the date of the Encounter. The data comes from the [place] facility where the Encounter took place. Date/Time Smoking Status/Tobacco Use Comment F acility Jan 20, 2023 03:49 PM VA-TOBACCO QUIT 15 YRS OR MORE [facility] Feb 06, 2021 04:28 PM VA-TOBACCO FORMER USER [facility] Feb 06, 2021 04:28 PM VA-TOBACCO QUIT 15 YRS OR MORE [facility] Encounter Notes: All associated encounter notes This section contains the clinical notes associated to the Encounter. Date/Time Encounter Note(s) Provider Source Mar 21, 2024 03:28 PM OPTOMETRY CONSULT: LOCAL TITLE: OPTOMETRY CONSULT STL STANDARD TITLE: OPTOMETRY CONSULT DATE OF NOTE: MAR 21, 2024@15:28 ENTRY DATE: MAR 21, 2024@15:29:34 AUTHOR: JANEL ZAZUETA EXP COSIGNER: URGENCY: STATUS: COMPLETED OCT MACULA: 03/21/24 OD: normal foveal contour, no SRF/IRF/DME OS: normal foveal contour, discrete area of RPE changes/drusen subfoveal/inferior, no SRF/CNVM /es/ JANEL ZAZUETA, OD BLANKET BINDER Signed: 03/21/2024 15:29 JANEL ZAZUETA [facility] Mar 21, 2024 08:42 AM OPTOMETRY NOTE: LOCAL TITLE: OPTOMETRY NOTE STANDARD TITLE: OPTOMETRY NOTE DATE OF NOTE: MAR 21, 2024@08:42 ENTRY DATE: MAR 21, 2024@08:43 AUTHOR: JANEL ZAZUETA EXP COSIGNER: URGENCY: STATUS: COMPLETED Last seen: 03/08/23 CC: 1. Vision is blurry - OU - With small print and distance vision - With glasses 2. No other concerns Ocular Meds: None Ocular ROS: (+) RPE changes/Drusen OS (+) Cataracts OU Family OcHX: (-) blindness (-) glaucoma (-) AMD (-) RD Problem list, medications and allergies reviewed: CPRS Serology for Diabetes GLUCOSE 87 mg/dL 07/21/2023 14:43 No HEMOGLOBIN A1C EO data found Cardiovascular BP: 130/78 (01/13/2024 11:14) Pulse: 62 (01/13/2024 11:14) VISUAL ACUITY (DOC): With correction, Distance Visual Acuity OD: 20/25 OS: 20/20 Pupils: PERRL OU (-)APD Confrontation: FTFC OU Extra-Ocular Muscles: Full OU Externals/Adnexa: Unremarkable OU Manifest Refraction: 03/21/24 OD: +1.75 -1.00 x115 20/20 OS: +1.75 -1.25 x075 20/20 Add: +2.50 SLIT LAMP EXAMINATION Lids/Lashes/Lacrimal No blepharitis OU Conjunctiva/Sclera White/quiet OU Cornea Clear OU Ant Chamber Deep and quiet OU Iris Normal, (-)NVI OU Lens Trace NS OU, one vacuole SN OD Intraocular Pressure History (Fluress/Goldmann): Date OD OS Time Meds 07/09/2021 17 16 1:20P none, holding lids 03/08/23 13 13 1452 none 03/21/24 16 16 1406 none Additional testing: brought forward and updated as needed OCT MACULA: 03/21/24 OD: normal foveal contour, no SRF/IRF/DME OS: normal foveal contour, discrete area of RPE changes/drusen subfoveal/inferior, no SRF/CNVM RETINAL EVALUATION: dilation warning, both eyes, 1% Tropicamide and 2.5% Phenylephrine 03/21/24 Optic Nerve: OD: 0.30 CDR Flat, pink, distinct (-)NVD OS: 0.35 CDR Flat, pink, distinct (-)NVD Vessels: 2/3 OU Macula: OD: Flat, clear (-)CSME OS: Flat, (+)central area of RPE changes/drusen, (-)CSME Periphery: OD: Flat and attached, inf cobblestone like findings, WWOP OS: Flat and attached, inf cobblestone like findings, WWOP Vitreous: No PVD O.U. Assessment/Plan: 03/21/24 1. RPE Changes/Drusen, OS - Isolated area subfoveal/inferior OS - OCT MACULA obtained today - appears stabe, no SRF/CNVM - Educated patient on findings - Appear fairly stable to prior description - Stable BVA - Monitor in 6 months with undilated OCT MAC/vision check 2. Cataracts, OU - Discussed impact on vision - Not visually significant - Defer referral for CE-IOL until s/sx indicate 3. Presbyopia and refractive error, OU - Order glasses Educate and monitor, discussed all exam findings. Patient and/or surrogate verbalized understanding of the instructions/information given. RTC: 6 months cataract/vision check; sooner PRN /es/ JANEL ZAZUETA OD BLANKET BINDER Signed: 03/21/2024 15:27 JANEL ZAZUETA [facility]
--- OUTSIDE RECORDS SUMMARY | 2024-10-08 17:13 | XMS_ITS | Encounter Summary ---
Author Name [facility] Organization [facility] Address [address] [place] [address] Care Team Providers Care Mobile Application Engineer Name Role Phone SUKHJINDER CHAHAL Primary [...] SUPPL EMENT Nov 25, 2021 PLAN G [id number] [phone] ELLEN HAWK VID PATIENT AARP MED SUPP MEDIGAP PLAN G MEDIC ARE SUPPL EMENT Nov 25, 2021 PLAN G [id number] [phone] ELLEN HAWK VID PATIENT MEDICARE (WNR) MEDICARE (M) PART B Sep 25, 2021 PART B [id number] ELLEN HAWK VID PATIENT MEDICARE (WNR) MEDICARE (M) PART A Aug 25, 2021 PART A [id number] ELLEN HAWKD PATIENT Selected Encounter This section includes the information on record at [place] for the Encounter. Date/Time Encounter Type Encounter Description Reason Pro vider Source Jul 17, 2024 04:02 PM Inpatient Visit [facility]Y [facility] Encounter Template Text not used by [place] Plan of Treatment: Future Appointments (+ 6 months) and Future Tests (+/- 45 days) The Plan of Treatment section includes future care activities for the patient from all [place] treatmentfacilities. This section includes future appointments and future orders which are active, pending or scheduled. Future Appointments This section includes appointments that were scheduled to occur 6 months from the date of the Encounter, up to a maximum of 20 appointments. The data comes from all [place] treatment facilities. Appointment Date/Time Appointment Type Appointme nt Facility Name Jul 25, 2024 01:00 PM AMBULATORY - MEDICINE [facility] Jul 26, 2024 10:00 AM AMBULATORY - MEDICINE [facility] Jul 27, 2024 03:14 PM AMBULATORY - MEDICINE [facility] Aug 01, 2024 10:15 AM AMBULATORY - NONE [facility] Aug 02, 2024 11:30 AM AMBULATORY - MEDICINE [facility] Aug 02, 2024 11:31 AM AMBULATORY - MEDICINE [facility] Aug 10, 2024 11:00 AM AMBULATORY - MEDICINE [facility] Aug 10, 2024 11:31 AM AMBULATORY - MEDICINE [facility] Aug 10, 2024 11:59 AM AMBULATORY - MEDICINE [facility] Aug 16, 2024 10:00 AM AMBULATORY - MEDICINE [facility] Aug 17, 2024 08:30 AM AMBULATORY - MEDICINE [facility] Aug 17, 2024 09:00 AM AMBULATORY - MEDICINE [facility] Aug 17, 2024 09:30 AM AMBULATORY - MEDICINE [facility] Aug 23, 2024 12:00 PM AMBULATORY - NONE [facility] Aug 31, 2024 02:00 PM AMBULATORY - MEDICINE [facility] Sep 07, 2024 11:00 AM AMBULATORY - MEDICINE [facility] Sep 07, 2024 01:00 PM AMBULATORY - MEDICINE [facility] Oct 15, 2024 03:00 PM AMBULATORY - SURGERY [facility] Oct 19, 2024 02:00 PM AMBULATORY - NONE [facility] Active, Pending, and Scheduled Orders This section includes a listing of several types of active, pending, and scheduled orders, including clinic medications orders, diagnostic test orders, procedure orders and consult orders; where the start date of the order is 45 days before the date of the Encounter or 45 days after the date of theEncounter. The data comes from all [facility] facilities. Test Date/Time Test Type Test Details Facility Name Jul 17, 2024 12:00 AM Laboratory - Blood Bank Order FRESH FROZEN PLASMA - LAB VBECS - NO SPECIMEN REQUIRED [facility] Jul 17, 2024 12:00 AM Laboratory - Blood Bank Order RED BLOOD CELLS - LAB VBECS - NO SPECIMEN REQUIRED [facility] Jul 17, 2024 06:13 PM Laboratory - Blood Bank Order DIRECT ANTIGLOBULIN TEST - LAB BLOOD STAT [facility] Jul 17, 2024 06:13 PM Laboratory - Blood Bank Order TYPE & SCREEN - LAB BLOOD [facility] Jul 18, 2024 12:00 AM Laboratory - Blood Bank Order PLATELETS - LAB VBECS - NO SPECIMEN REQUIRED [facility] Aug 10, 2024 12:00 AM Laboratory - Blood Bank Order RED BLOOD CELLS - LAB VBECS - NO SPECIMEN [facility] Aug 10, 2024 02:00 PM Laboratory - Blood Bank Order TYPE & SCREEN - LAB BLOOD [facility] Aug 10, 2024 05:43 PM Laboratory - Chemistry Order LIPASE GREEN LI/HEP BLD/PLAS PLASMA STAT I ONCE [facility] Aug 10, 2024 05:44 PM Laboratory - Microbiology Order BLOOD CULT (SET 2) B D BLD. BOTTLE (SET 2) BLOOD JOANN I NOW [facility] Aug 11, 2024 02:00 AM Laboratory - Chemistry Order CBC BLOOD [facility] Aug 14, 2024 02:00 AM Laboratory - Chemistry Order [facility] Aug 15, 2024 02:00 AM Laboratory - Chemistry Order CBC BLOOD WC [facility] Aug 16, 2024 12:00 AM Laboratory - Chemistry Order CBC BLOOD SP [facility] Aug 16, 2024 08:00 PM Laboratory - Chemistry Order CBC BLOOD LC [facility] Aug 17, 2024 08:00 PM Laboratory - Chemistry Order CBC BLOOD LC [facility] Lab Results: +/- 30 days of the encounter This section includes the Chemistry and Hematology Lab Results on record with [place] for the patient. Radiology Reports and Pathology Reports are provided separately, in subsequent sections. Lab Results This section contains the Chemistry/Hematology Results that were resulted 30 days before or 30 daysafter the date of the Encounter. Date/Time Source Result Type Result - Unit Interpretation Reference Range Specimen Type Comment Aug 15, 2024 07:20 AM [facility] CBC BLOOD Specimen Type: BLOOD Comment: No clots detected in specimen. Ordering Provider: CASH CLOUD Report Released Date/Time: Aug 12, 2024 01:47 PM Reporting Lab: [address] [address] Performing Lab: [address] [address] WBC 4.9 10*3/uL 3.6-11.2 RBC 2.93 10*6/uL [...] 10*3/uL 2.10-8.00 Aug 15, 2024 04:54 AM [facility] GLUCOSE,BLOOD-poct (STL) BLOOD Specimen Type: BLOOD Comment: Test Performed by: [id number] Meter #: [id number] Ordering Provider: DEIRDRE WILD Report Released Date/Time: Aug 15, 2024 05:21 AM Reporting Lab: [place] [address] Performing Lab: [place] [phone] GLUCOSE,BLOOD-poct (STL) 112 mg/dL H 72-99 Aug 14, 2024 08:30 PM [facility] CRP PLASMA Specimen Type: PLASM A No comment entered. Ordering Provider: CASH CLOUD Report Released Date/Time: Aug 12, 2024 10:14 AM Reporting Lab: [place] [phone] Performing Lab: [place] [phone] CRP 0.7 mg/dL H 0-0.5 Aug 14, 2024 08:30 PM [facility] CBC BLOOD Specimen Type: BLOOD No comment entered. Ordering Provider: GILSON OG Report Released Date/Time: Aug 10, 2024 04:01 PM Reporting Lab: [place] [address] Performing Lab: [place] [phone] WBC 4.6 10*3/uL 3.6-11.2 RBC 2.83 10*6/uL [...] 10*3/uL 2.10-8.00 Aug 14, 2024 07:54 PM [facility] GLUCOSE,BLOOD-poct (STL) BLOOD Specimen Type: BLOOD Comment: Test Performed by: [id number] Meter #: [id number] Ordering Provider: DEIRDRE WILD Report Released Date/Time: Aug 14, 2024 08:15 PM Reporting Lab: [address] [address] Performing Lab: [address] [address] GLUCOSE,BLOOD-poct (STL) 112 mg/dL H 72-99 Aug 14, 2024 04:10 PM [facility] GLUCOSE,BLOOD-poct (STL) BLOOD Specimen Type: BLOOD Comment: Test Performed by: [id number] Meter #: [id number] Ordering Provider: DEIRDRE WILD Report Released Date/Time: Aug 14, 2024 04:43 PM Reporting Lab: [address] [address] Performing Lab: [address] [address] GLUCOSE,BLOOD-poct (STL) 115 mg/dL H 72-99 Aug 14, 2024 02:05 PM [facility] COMPREHENSIVE METABOLIC PANEL PLASMA Specimen Type: PLASMA Comment: No hemolysis noted. Ordering Provider: GILSON OG Report Released Date/Time: Aug 14, 2024 06:56 AM Reporting Lab: [facility] [address] [place] [address] Performing Lab: [facility] [address] [place] [address] CREATININE 0.75 mg/dL 0.7-1.3 UREA NITROGEN 9.3 [...] Aug 14, 2024 02:05 PM [facility] CBC BLOOD Specimen Type: BLOOD Comment: No platelet clots or clumping detected. Ordering Provider: GILSON OG Report Released Date/Time: Aug 10, 2024 04:01 PM Reporting Lab: [facility] [address] [address] Performing Lab: [address] [address] WBC 4.6 10*3/uL 3.6-11.2 RBC 3.06 10*6/uL [...] 10*3/uL 2.10-8.00 Aug 14, 2024 10:12 AM [facility] GLUCOSE,BLOOD-poct (STL) BLOOD Specimen Type: BLOOD Comment: Test Performed by: [id number] Meter #: [id number] Ordering Provider: DEIRDRE WILD Report Released Date/Time: Aug 14, 2024 10:13 AM Reporting Lab: [facility] [address] [address] Performing Lab: [facility] [address] [facility] [address] GLUCOSE,BLOOD-poct ([facility]) 112 mg/dL H 72-99 Aug 14, 2024 09:20 AM [facility] PT/INR NEW (STL-MA) PLASMA Specimen Type: PLAS DENICE No comment entered. Ordering Provider: GILSON OG Report Released Date/Time: Aug 14, 2024 09:06 AM Reporting Lab: [facility] [address] [facility] [place] [place] [address] Performing Lab: [address] [address] PROTIME 13.6 s H 9.4-12.5 INR VALUE 1.2 {INR} Aug 14, 2024 06:51 AM [facility] CBC BLOOD Specimen Type: BLOOD No comment entered. Ordering Provider: CASH CLOUD Report Released Date/Time: Aug 12, 2024 01:47 PM Reporting Lab: [place] [phone] Performing Lab: [address] [address] WBC 3.8 10*3/uL 3.6-11.2 RBC 2.56 10*6/uL [...] 10*3/uL 2.10-8.00 Aug 14, 2024 06:03 AM [facility] GLUCOSE,BLOOD-poct (STL) BLOOD Specimen Type: BLOOD Comment: Test Performed by: [id number] Meter #: [id number] Ordering Provider: DEIRDRE WILD Report Released Date/Time: Aug 14, 2024 06:07 AM Reporting Lab: [place] [address] [address] Performing Lab: [address] [address] GLUCOSE,BLOOD-poct (STL) 114 mg/dL H 72-99 Aug 13, 2024 09:11 PM [facility] GLUCOSE,BLOOD-poct (STL) BLOOD Specimen Type: BLOOD Comment: Test Performed by: [id number] Meter #: [id number] Ordering Provider: DEIRDRE WILD Report Released Date/Time: Aug 13, 2024 09:40 PM Reporting Lab: [address] [address] Performing Lab: [address] [address] GLUCOSE,BLOOD-poct (STL) 160 mg/dL H 72-99 Aug 13, 2024 07:10 PM [facility] COMPREHENSIVE METABOLIC PANEL PLASMA Specimen Type: PLASMA Comment: No hemolysis noted. Ordering Provider: GILSON OG Report Released Date/Time: Aug 14, 2024 07:03 AM Reporting Lab: [address] [address] Performing Lab: [address] [address] CREATININE 0.75 mg/dL 0.7-1.3 UREA NITROGEN 10.3 [...] Aug 13, 2024 07:10 PM [facility] CRP PLASMA Specimen Type: PLASM A No comment entered. Ordering Provider: CASH CLOUD Report Released Date/Time: Aug 12, 2024 10:14 AM Reporting Lab: [facility] [address] [facility] [place] [address] Performing Lab: [address] [address] CRP 0.7 mg/dL H 0-0.5 Aug 13, 2024 07:10 PM [facility] CBC BLOOD Specimen Type: BLOOD No comment entered. Ordering Provider: GILSON OG Report Released Date/Time: Aug 10, 2024 04:01 PM Reporting Lab: [place] [id number] [facility] [place] [place] [address] Performing Lab: [address] [address] WBC 5.3 10*3/uL 3.6-11.2 RBC 2.67 10*6/uL [...] 10*3/uL 2.10-8.00 Aug 13, 2024 04:35 PM [facility] GLUCOSE,BLOOD-poct (STL) BLOOD Specimen Type: BLOOD Comment: Test Performed by: [id number] Meter #: [id number] Ordering Provider: DEIRDRE WILD Report Released Date/Time: Aug 13, 2024 05:18 PM Reporting Lab: [address] [address] Performing Lab: [address] [address] GLUCOSE,BLOOD-poct (L) 113 mg/dL H 72-99 Aug 13, 2024 02:36 PM [facility] CBC BLOOD Specimen Type: BLOOD No comment entered. Ordering Provider: GILSON OG Report Released Date/Time: Aug 10, 2024 04:01 PM Reporting Lab: [address] [address] Performing Lab: [address] [address] WBC 5.8 10*3/uL 3.6-11.2 RBC 2.77 10*6/uL [...] 10*3/uL 2.10-8.00 Aug 13, 2024 11:37 AM [facility] GLUCOSE,BLOOD-poct (STL) BLOOD Specimen Type: BLOOD Comment: Test Performed by: [id number] Meter #: [id number] Ordering Provider: DEIRDRE WILD Report Released Date/Time: Aug 13, 2024 11:38 AM Reporting Lab: [address] [address] Performing Lab: [address] [address] GLUCOSE,BLOOD-poct (STL) 131 mg/dL H 72-99 Aug 13, 2024 08:06 AM [facility] CBC BLOOD Specimen Type: BLOOD Comment: no clot Ordering Provider: CASH CLOUD Report Released Date/Time: Aug 12, 2024 01:47 PM Reporting Lab: [address] [address] Performing Lab: [address] [address] WBC 3.0 10*3/uL L 3.6-11.2 RBC 2.61 [...] 10*3/uL 2.10-8.00 Aug 13, 2024 04:45 AM [facility] GLUCOSE,BLOOD-poct (STL) BLOOD Specimen Type: BLOOD Comment: Test Performed by: [id number] Meter #: [id number] Ordering Provider: DEIRDRE WILD Report Released Date/Time: Aug 13, 2024 06:18 AM Reporting Lab: [address] [address] Performing Lab: [address] [address] GLUCOSE,BLOOD-poct (STL) 139 mg/dL H 72-99 Aug 12, 2024 10:10 PM [facility] GLUCOSE,BLOOD-poct (STL) BLOOD Specimen Type: BLOOD Comment: Test Performed by: [id number] Meter #: [id number] Ordering Provider: DEIRDRE WILD Report Released Date/Time: Aug 12, 2024 10:50 PM Reporting Lab: [address] [address] Performing Lab: [address] [address] GLUCOSE,BLOOD-poct (STL) 105 mg/dL H 72-99 Aug 12, 2024 08:48 PM [facility] CRP PLASMA Specimen Type: PLASM A No comment entered. Ordering Provider: CASH CLOUD Report Released Date/Time: Aug 12, 2024 10:14 AM Reporting Lab: [facility] [address] [place] [address] Performing Lab: [address] [address] CRP 0.6 mg/dL H 0-0.5 Aug 12, 2024 08:48 PM [facility] CBC BLOOD Specimen Type: BLOOD Comment: SEE PREVIOUS DIFFERENTIAL ON 08/12/24 @ 1807 Ordering Provider: GILSON OG Report Released Date/Time: Aug 10, 2024 04:01 PM Reporting Lab: [address] [address] Performing Lab: [address] [address] WBC 5.0 10*3/uL 3.6-11.2 RBC 2.78 10*6/uL [...] 6.5 1.0-7.0 Aug 12, 2024 04:51 PM [facility] GLUCOSE,BLOOD-poct (STL) BLOOD Specimen Type: BLOOD Comment: Test Performed by: [id number] Meter #: [id number] Ordering Provider: DEIRDRE WILD Report Released Date/Time: Aug 12, 2024 05:07 PM Reporting Lab: [place] [phone] Performing Lab: [place] [phone] GLUCOSE,BLOOD-poct ([facility]) 135 mg/dL H 72-99 Aug 12, 2024 02:33 PM [facility] CBC BLOOD Specimen Type: BLOOD No comment entered. Ordering Provider: GILSON OG Report Released Date/Time: Aug 10, 2024 04:01 PM Reporting Lab: [address] [address] Performing Lab: [place] [phone] WBC 4.0 10*3/uL 3.6-11.2 RBC 2.56 10*6/uL [...] 10*3/uL 2.10-8.00 Aug 12, 2024 11:51 AM [facility] GLUCOSE,BLOOD-poct (STL) BLOOD Specimen Type: BLOOD Comment: Test Performed by: [id number] Meter #: [id number] Ordering Provider: DEIRDRE WILD Report Released Date/Time: Aug 12, 2024 12:26 PM Reporting Lab: [address] [address] Performing Lab: [address] [address] GLUCOSE,BLOOD-poct (L) 139 mg/dL H 72-99 Aug 12, 2024 07:35 AM [facility] CBC BLOOD Specimen Type: BLOOD Comment: prev diff 08/11/24. Ordering Provider: GILSON OG Report Released Date/Time: Aug 10, 2024 04:01 PM Reporting Lab: [address] [address] Performing Lab: [address] [address] WBC 3.0 10*3/uL L 3.6-11.2 RBC 2.54 [...] 0.00-0. 20 Aug 12, 2024 05:49 AM [facility] GLUCOSE,BLOOD-poct (STL) BLOOD Specimen Type: BLOOD Comment: Test Performed by: [id number] Meter #: [id number] Ordering Provider: DEIRDRE WILD Report Released Date/Time: Aug 12, 2024 05:50 AM Reporting Lab: [address] [address] Performing Lab: [address] [address] GLUCOSE,BLOOD-poct ([facility]) 112 mg/dL H 72-99 Aug 12, 2024 01:45 AM [facility] CBC BLOOD Specimen Type: BLOOD Comment: SEE PREVIOUS DIFFERENTIAL ON 08/12/24 @ 0239 [facility] Ordering Provider: GILSON OG Report Released Date/Time: Aug 10, 2024 04:01 PM Reporting Lab: [address] [address] Performing Lab: [address] [address] WBC 2.6 10*3/uL L 3.6-11.2 RBC 2.42 [...] Aug 11, 2024 09:25 PM [facility] CBC BLOOD Specimen Type: BLOOD No comment entered. Ordering Provider: GILSON OG Report Released Date/Time: Aug 10, 2024 04:01 PM Reporting Lab: [facility] [address] [address] Performing Lab: [address] [address] WBC 3.6 10*3/uL 3.6-11.2 RBC 2.54 10*6/uL [...] 10*3/uL 2.10-8.00 Aug 11, 2024 09:17 PM [facility] GLUCOSE,BLOOD-poct (STL) BLOOD Specimen Type: BLOOD Comment: Test Performed by: [id number] Meter #: [id number] Ordering Provider: DEIRDRE WILD Report Released Date/Time: Aug 11, 2024 09:21 PM Reporting Lab: [facility] [address] [facility] [place] [address] Performing Lab: [address] [address] GLUCOSE,BLOOD-poct (STL) 167 mg/dL H 72-99 Aug 11, 2024 04:42 PM [facility] CBC BLOOD Specimen Type: BLOOD No comment entered. Ordering Provider: YVONNE HARRISON Report Released Date/Time: Aug 11, 2024 04:41 PM Reporting Lab: [address] [address] Performing Lab: [address] [address] WBC 4.0 10*3/uL 3.6-11.2 RBC 2.74 10*6/uL [...] 10*3/uL 2.10-8.00 Aug 11, 2024 04:30 PM [facility] GLUCOSE,BLOOD-poct (STL) BLOOD Specimen Type: BLOOD Comment: Test Performed by: [id number] Meter #: [id number] Ordering Provider: DEIRDRE WILD Report Released Date/Time: Aug 11, 2024 06:06 PM Reporting Lab: [place] [address] [address] Performing Lab: [place] [address] [address] GLUCOSE,BLOOD-poct (STL) 95 mg/dL 72-99 Aug 11, 2024 11:08 AM [facility] GLUCOSE,BLOOD-poct (L) BLOOD Specimen Type: BLOOD Comment: Test Performed by: [id number] Meter #: [id number] Ordering Provider: DEIRDRE WILD Report Released Date/Time: Aug 11, 2024 11:10 AM Reporting Lab: [address] [address] Performing Lab: [place] [address] [address] GLUCOSE,BLOOD-poct (L) 117 mg/dL H 72-99 Aug 11, 2024 06:00 AM [facility] PT/INR NEW (L-MA) PLASMA Specimen Type: PLAS MA No comment entered. Ordering Provider: GILSON OG Report Released Date/Time: Aug 10, 2024 06:20 PM Reporting Lab: [address] [address] Performing Lab: [address] [address] PROTIME 15.5 s H 9.4-12.5 INR VALUE 1.4 {INR} Aug 11, 2024 06:00 AM [facility] HEPATIC FUNTION PANEL (STL) PLASMA Specimen Ty pe: PLASMA No comment entered. Ordering Provider: GILSON OG Report Released Date/Time: Aug 10, 2024 04:02 PM Reporting Lab: [address] [address] Performing Lab: [address] [address] PROTEIN 5.4 g/dL L 6-8.6 ALBUMIN 2.6 g/dL L 3.4-5 TOTAL BILIRUBIN 0.8 mg/dL 0.2-1.2 ALKALINE PHOSPHATASE 72 U/L 40-150 AST/SGOT 28 U/L 5-34 ALT/SGPT 10 U/L 8-40 CONJ. BILIRUBIN 0.4 mg/dL 0-0.5 Aug 11, 2024 06:00 AM [facility] IRON/TIBC PROFILE SERUM Specimen Type: SERUM No comment entered. Ordering Provider: GILSON OG Report Released Date/Time: Aug 10, 2024 04:02 PM Reporting Lab: [address] [address] Performing Lab: [address] [address] TIBC 263 ug/dL 250-450 TRANSFERRIN 210 mg/dL 163-344 IRON SATURATION 8 L 20-50 IRON 21 ug/dL L 65-175 Aug 11, 2024 06:00 AM [facility] APTT PLASMA Specimen Type: PLASM A No comment entered. Ordering Provider: GILSON OG Report Released Date/Time: Aug 10, 2024 06:20 PM Reporting Lab: [address] [address] Performing Lab: [address] [address] APTT 25.5 s L 26.7-39.9 Aug 11, 2024 06:00 AM [facility] CBC BLOOD Specimen Type: BLOOD No comment entered. Ordering Provider: GILSON OG Report Released Date/Time: Aug 10, 2024 04:01 PM Reporting Lab: [address] [address] Performing Lab: [address] [address] WBC 2.4 10*3/uL L 3.6-11.2 RBC 2.42 [...] L 2.10-8.00 Aug 10, 2024 09:00 PM [facility] BASIC METABOLIC PANEL PLASMA Specimen Type: PL ASMA Comment: No hemolysis noted. Ordering Provider: GILSON OG Report Released Date/Time: Aug 10, 2024 04:01 PM Reporting Lab: [facility] [address] [address] Performing Lab: [facility] [address] [facility] [place] [address] CREATININE 0.84 mg/dL 0.7-1.3 UREA NITROGEN 16.8 mg/dL 9.0-25.0 GLUCOSE 104 mg/dL H 72-99 SODIUM 133 meq/L L 136-145 POTASSIUM 3.5 meq/L 3.5-5 CHLORIDE 103 meq/L 98-107 CARBON DIOXIDE 23 meq/L 22-31 CALCIUM 8.4 mg/dL 8.4-10.4 EGFR (CKD-EPI 2020) 95.6 >60 Aug 10, 2024 09:00 PM [facility] CBC BLOOD Specimen Type: BLOOD No comment entered. Ordering Provider: GILSON OG Report Released Date/Time: Aug 10, 2024 04:01 PM Reporting Lab: [facility] [address] [address] Performing Lab: [facility] [address] [facility] [place] [place] [address] WBC 4.3 10*3/uL 3.6-11.2 RBC 2.22 10*6/uL [...] 10*3/uL 2.10-8.00 Aug 10, 2024 06:30 PM [facility] MRSA SURVL NARES DNA NARES Specimen [...] Aug 10, 2024 04:01 PM Reporting Lab: [place] [address] [address] Performing Lab: [address] [address] MRSA SURVL NARES DNA Negative Negative Aug 10, 2024 06:02 PM [facility] GLUCOSE,BLOOD-poct (STL) BLOOD Specimen Type: BLOOD Comment: Test Performed by: [id number] Meter #: [id number] Ordering Provider: YASIR SANZ MD Report Released Date/Time: Aug 10, 2024 06:04 PM Reporting Lab: [address] [address] Performing Lab: [address] [address] GLUCOSE,BLOOD-poct (STL) 94 mg/dL 72-99 Aug 10, 2024 02:12 PM [facility] PT/INR NEW (L-MA) PLASMA Specimen Type: PLAS MA No comment entered. Ordering Provider: YASIR SANZ MD Report Released Date/Time: Aug 10, 2024 02:00 PM Reporting Lab: [address] [address] Performing Lab: [address] [address] PROTIME 13.8 s H 9.4-12.5 INR VALUE 1.2 {INR} Aug 10, 2024 02:12 PM [facility] APTT PLASMA Specimen Type: PLASM A No comment entered. Ordering Provider: YASIR SANZ MD Report Released Date/Time: Aug 10, 2024 02:00 PM Reporting Lab: [address] [address] Performing Lab: [place] [address] [facility] [address] APTT 20.1 s L 26.7-39.9 Aug 10, 2024 11:30 AM [facility] TSH W/ REFLEX FT4 (STL) PLASMA Specimen Type: PLASMA No comment entered. Ordering Provider: TONY FELICIANO Report Released Date/Time: Aug 02, 2024 12:33 PM Reporting Lab: [place] [address] [facility] [address] Performing Lab: [place] [address] [facility] [address] TSH 3.991 u[IU]/mL 0.47-5 Aug 10, 2024 11:30 AM [facility] COMPREHENSIVE METABOLIC PANEL PLASMA Specimen Type: PLASMA Comment: No hemolysis noted. Ordering Provider: TONY FELICIANO Report Released Date/Time: Aug 02, 2024 12:33 PM Reporting Lab: [place] [address] [facility] [address] Performing Lab: [address] [address] CREATININE 0.82 mg/dL 0.7-1.3 UREA NITROGEN 21.7 [...] Aug 10, 2024 11:30 AM [facility] CBC BLOOD Specimen Type: BLOOD No comment entered. Ordering Provider: TONY FELICIANO Report Released Date/Time: Aug 02, 2024 12:33 PM Reporting Lab: [place] [address] [facility] [address] Performing Lab: [place] [address] [facility] [address] WBC 7.4 10*3/uL 3.6-11.2 RBC 2.81 10*6/uL [...] 0.00-0. 20 Aug 02, 2024 11:53 AM [facility] PROTEIN ELECTROPHORESIS BLOOD SERUM Specimen Type: SERUM Comment: Reference Range: None Detected NOTE: THIS RESULT IS FLAGGED ABNORMAL Evaluation reveals a restricted band (M-spike) migrating in the gamma globulin region. If not already requested, Immunofixation should be considered. Test Performed by [facility], [facility], [address] [place] [address] Tristin Iyer M.D., Ph.D., Director of Laboratories , CLIA [id number] PREVIOUS SUGAR: IgG Naylor Ordering Provider: TONY FELICIANO Report Released Date/Time: Jul 13, 2024 01:49 PM Reporting Lab: [place] [address] [facility] [address] Performing Lab: [facility] [address] [facility] ALPHA-1 GLOBULIN(SO-PB-STL) 0.4 g/dL H 0.2 -0.3 [...] g/dL H Aug 02, 2024 11:53 AM [facility] IGA (STL) PLASMA Specimen Type: PLASM A Comment: No hemolysis noted. Ordering Provider: TONY FELICIANO Report Released Date/Time: Jul 13, 2024 01:49 PM Reporting Lab: [address] [address] Performing Lab: [address] [address] IGA (STL) 113 mg/dL 63-484 Aug 02, 2024 11:53 AM [facility] IGG (STL) PLASMA Specimen Type: PLASM A Comment: No hemolysis noted. Ordering Provider: TONY FELICIANO Report Released Date/Time: Jul 13, 2024 01:49 PM Reporting Lab: [address] [address] Performing Lab: [address] [address] IGG (STL) 1898 mg/dL H 540-1822 Aug 02, 2024 11:53 AM [facility] IGM (STL) PLASMA Specimen Type: PLASM A Comment: No hemolysis noted. Ordering Provider: TONY FELICIANO Report Released Date/Time: Jul 13, 2024 01:49 PM Reporting Lab: [facility] [address] [place] [address] Performing Lab: [facility] [address] [facility] [address] IGM (STL) 104 mg/dL 22-240 Aug 02, 2024 11:53 AM [facility] KAPPA/LAMBDA FREE LC PANEL (STL-PB) SERUM Spe cimen Type: SERUM No comment entered. Ordering Provider: TONY FELICIANO Report Released Date/Time: Jul 13, 2024 01:49 PM Reporting Lab: [place] [address] [facility] [address] Performing Lab: [place] [address] [facility] [address] KAPPA FREE LC (STL) 102.7 mg/L H 2.4-20.7 LAMBDA FREE LC (STL) 32.2 mg/L H 4.2-27.7 KAPPA/LAMBDA RATIO (STL) 3.19 H 0.22-1. 74 Aug 02, 2024 11:53 AM [facility] TSH W/ REFLEX FT4 (STL) PLASMA Specimen Type: PLASMA No comment entered. Ordering Provider: TONY FELICIANO Report Released Date/Time: Jul 13, 2024 01:49 PM Reporting Lab: [facility] [address] [facility] [address] Performing Lab: [place] [address] [facility] [address] TSH 2.182 u[IU]/mL 0.47-5 Aug 02, 2024 11:53 AM [facility] COMPREHENSIVE METABOLIC PANEL PLASMA Specimen Type: PLASMA Comment: No hemolysis noted. Ordering Provider: TONY FELICIANO Report Released Date/Time: Jul 13, 2024 01:49 PM Reporting Lab: [facility] [address] [place] [phone] Performing Lab: [address] [address] CREATININE 0.82 mg/dL 0.7-1.3 UREA NITROGEN 12.2 [...] 02, 2024 11:53 AM [facility] CBC BLOOD Specimen Type: BLOOD Comment: No Clots in specimen Ordering Provider: TONY FELICIANO Report Released Date/Time: Jul 13, 2024 01:49 PM Reporting Lab: [address] [address] Performing Lab: [address] [address] WBC 2.2 10*3/uL L 3.6-11.2 RBC 3.44 [...] L 2.10-8.00 Aug 01, 2024 10:10 AM [facility] GLUCOSE,BLOOD-poct (STL) BLOOD Specimen Type: BLOOD Comment: Test Performed by: [id number] Meter #: [id number] Ordering Provider: SUKHJINDER CHAHAL Report Released Date/Time: Aug 01, 2024 10:17 AM Reporting Lab: [address] [address] Performing Lab: [address] [address] GLUCOSE,BLOOD-poct (STL) 101 mg/dL H 72-99 Jul 27, 2024 01:54 PM [facility] BRAIN NATRIURETIC PEPTIDE PLASMA Specimen Type : PLASMA No comment entered. Ordering Provider: ELIZABETH COATES Report Released Date/Time: Jul 27, 2024 03:39 PM Reporting Lab: [address] [address] Performing Lab: [address] [address] BRAIN NATRIURETIC PEPTIDE 257.2 pg/mL H 0- 100 Jul 27, 2024 01:54 PM [facility] TROPONIN I PLASMA Specimen Type: PLASM A Comment: No hemolysis noted. Ordering Provider: ELIZABETH COATES Report Released Date/Time: Jul 27, 2024 03:39 PM Reporting Lab: [address] [address] Performing Lab: [address] [address] TROPONIN I 0.011 ng/mL 0-0.033 Jul 27, 2024 01:54 PM [facility] COMPREHENSIVE METABOLIC PANEL PLASMA Specimen Type: PLASMA Comment: No hemolysis noted. Ordering Provider: ELIZABETH COATES Report Released Date/Time: Jul 27, 2024 03:39 PM Reporting Lab: [address] [address] Performing Lab: [address] [address] CREATININE 0.70 mg/dL 0.7-1.3 UREA NITROGEN 7.4 [...] Jul 27, 2024 01:54 PM [facility] CBC BLOOD Specimen Type: BLOOD No comment entered. Ordering Provider: ELIZABETH COATES Report Released Date/Time: Jul 27, 2024 03:39 PM Reporting Lab: [address] [address] Performing Lab: [address] [address] WBC 3.2 10*3/uL L 3.6-11.2 RBC 3.12 [...] 10*3/uL 2.10-8.00 Jul 21, 2024 02:00 PM [facility] IRON/TIBC PROFILE SERUM Specimen Type: SERUM No comment entered. Ordering Provider: JORJE DENSON Report Released Date/Time: Jul 21, 2024 12:54 PM Reporting Lab: [address] [address] Performing Lab: [address] [address] TIBC 243 ug/dL L 250-450 TRANSFERRIN 194 mg/dL 163-344 IRON SATURATION 20 20-50 IRON 49 ug/dL L 65-175 Jul 21, 2024 02:00 PM [facility] B12 SERUM Specimen Type: SERUM No comment entered. Ordering Provider: JORJE DENSON Report Released Date/Time: Jul 21, 2024 12:54 PM Reporting Lab: [address] [address] Performing Lab: [address] [address] B12 1584 pg/mL H 213-816 Jul 21, 2024 02:00 PM [facility] FOLATE (STL-MA) SERUM Specimen Type: SERUM No comment entered. Ordering Provider: JORJE DENSON Report Released Date/Time: Jul 21, 2024 12:54 PM Reporting Lab: [address] [address] Performing Lab: [address] [address] FOLATE (STL-MA) 9.1 ng/mL 7-Jul 21, 2024 02:00 PM [facility] CBC BLOOD Specimen Type: BLOOD Comment: Manual differential performed 07/20/2024 No clots Ordering Provider: JORJE DENSON Report Released Date/Time: Jul 21, 2024 12:54 PM Reporting Lab: [address] [address] Performing Lab: [address] [address] WBC 5.6 10*3/uL 3.6-11.2 RBC 2.87 10*6/uL [...] H 1.0-7.0 Jul 20, 2024 08:55 PM [facility] PT/INR NEW (STL-MA) PLASMA Specimen Type: PLAS MA No comment entered. Ordering Provider: AURA ZACARIAS Report Released Date/Time: Jul 18, 2024 01:30 PM Reporting Lab: [address] [address] Performing Lab: [address] [address] PROTIME 12.8 s H 9.4-12.5 INR VALUE 1.1 {INR} Jul 20, 2024 08:55 PM [facility] BASIC METABOLIC PANEL PLASMA Specimen Type: PL ASMA Comment: No hemolysis noted. Ordering Provider: ARUA ZACARIAS Report Released Date/Time: Jul 18, 2024 01:30 PM Reporting Lab: [address] [address] Performing Lab: [address] [address] CREATININE 0.74 mg/dL 0.7-1.3 UREA NITROGEN 15.1 mg/dL 9.0-25.0 GLUCOSE 121 mg/dL H 72-99 SODIUM 130 meq/L L 136-145 POTASSIUM 3.7 meq/L 3.5-5 CHLORIDE 100 meq/L 98-107 CARBON DIOXIDE 20 meq/L L 22-31 CALCIUM 8.5 mg/dL 8.4-10.4 EGFR (CKD-EPI 2020) 99.3 >60 Jul 20, 2024 08:55 PM [facility] CBC BLOOD Specimen Type: BLOOD No comment entered. Ordering Provider: AURA ZACARIAS Report Released Date/Time: Jul 18, 2024 01:30 PM Reporting Lab: [address] [address] Performing Lab: [address] [address] WBC 5.1 10*3/uL 3.6-11.2 RBC 2.90 10*6/uL [...] Jul 20, 2024 01:13 PM [facility] CBC BLOOD Specimen Type: BLOOD No comment entered. Ordering Provider: AURA ZACARIAS Report Released Date/Time: Jul 18, 2024 01:30 PM Reporting Lab: [facility] [address] [place] [address] Performing Lab: [address] [address] WBC 5.6 10*3/uL 3.6-11.2 RBC 3.11 10*6/uL [...] 10*3/uL 2.10-8.00 Jul 19, 2024 06:42 AM [facility] PT/INR NEW (STL-MA) PLASMA Specimen Type: PLAS MA No comment entered. Ordering Provider: AURA ZACARIAS Report Released Date/Time: Jul 18, 2024 01:30 PM Reporting Lab: [address] [address] Performing Lab: [address] [address] PROTIME 16.4 s H 9.4-12.5 INR VALUE 1.5 {INR} Jul 19, 2024 06:42 AM [facility] BASIC METABOLIC PANEL PLASMA Specimen Type: PL ASMA Comment: No hemolysis noted. Ordering Provider: AURA ZACARIAS Report Released Date/Time: Jul 18, 2024 01:30 PM Reporting Lab: [address] [address] Performing Lab: [address] [address] CREATININE 0.94 mg/dL 0.7-1.3 UREA NITROGEN 23.8 mg/dL 9.0-25.0 GLUCOSE 87 mg/dL 72-99 SODIUM 129 meq/L L 136-145 POTASSIUM 3.4 meq/L L 3.5-5 CHLORIDE 102 meq/L 98-107 CARBON DIOXIDE 20 meq/L L 22-31 CALCIUM 8.1 mg/dL L 8.4-10.4 EGFR (CKD-EPI 2020) 88.9 >60 Jul 19, 2024 06:42 AM [facility] CBC BLOOD Specimen Type: BLOOD No comment entered. Ordering Provider: AURA ZACARIAS Report Released Date/Time: Jul 18, 2024 01:30 PM Reporting Lab: [address] [address] Performing Lab: [address] [address] WBC 5.1 10*3/uL 3.6-11.2 RBC 2.45 10*6/uL [...] Jul 18, 2024 08:51 PM [facility] CBC BLOOD Specimen Type: BLOOD No comment entered. Ordering Provider: AURA ZACARIAS Report Released Date/Time: Jul 18, 2024 01:30 PM Reporting Lab: [address] [address] Performing Lab: [address] [address] WBC 6.2 10*3/uL 3.6-11.2 RBC 2.44 10*6/uL [...] Jul 18, 2024 04:19 PM [facility] CBC BLOOD Specimen Type: BLOOD No comment entered. Ordering Provider: AURA ZACARIAS Report Released Date/Time: Jul 18, 2024 01:30 PM Reporting Lab: [facility] [address] [facility] [address] Performing Lab: [address] [address] WBC 6.1 10*3/uL 3.6-11.2 RBC 2.57 10*6/uL [...] 10*3/uL 2.10-8.00 Jul 18, 2024 06:32 AM [facility] LACTIC ACID (STL-PB) PLASMA Specimen Type: NEIL SMA No comment entered. Ordering Provider: CAMDEN PATTON Report Released Date/Time: Jul 17, 2024 07:38 PM Reporting Lab: [address] [address] Performing Lab: [address] [address] LACTIC ACID (L-PB) 1.3 mmol/L 0.5-2.0 Jul 18, 2024 06:32 AM [facility] PT/INR NEW (L-MA) PLASMA Specimen Type: PLAS MA No comment entered. Ordering Provider: CAMDEN PATTON Report Released Date/Time: Jul 17, 2024 07:38 PM Reporting Lab: [address] [address] Performing Lab: [address] [address] PROTIME 19.1 s H 9.4-12.5 INR VALUE 1.7 {INR} Jul 18, 2024 06:32 AM [facility] CBC BLOOD Specimen Type: BLOOD Comment: HGB Called to : Dr. Posadas MOD at: [id number] on: 07/18/24 by: [email or web address] Critical Verbal Readback Performed Ordering Provider: CAMDEN PATTON Report Released Date/Time: Jul 17, 2024 07:38 PM Reporting Lab: [address] [address] Performing Lab: [address] [address] WBC 7.0 10*3/uL 3.6-11.2 RBC 2.04 10*6/uL [...] 10*3/uL 2.10-8.00 Jul 18, 2024 06:32 AM [facility] VANCOMYCIN (STL) PLASMA Specimen Type: PLASM A No comment entered. Ordering Provider: CAMDEN PATTON Report Released Date/Time: Jul 17, 2024 07:38 PM Reporting Lab: [address] [address] Performing Lab: [address] [address] VANCOMYCIN (STL) 5.0 ug/mL L 10-15 Jul 18, 2024 06:32 AM [facility] MAGNESIUM PLASMA Specimen Type: PLASM A Comment: No hemolysis noted. Ordering Provider: CAMDEN PATTON Report Released Date/Time: Jul 17, 2024 07:38 PM Reporting Lab: [address] [address] Performing Lab: [address] [address] MAGNESIUM 1.5 mg/dL L 1.6-2.6 Jul 18, 2024 06:32 AM [facility] PHOSPHOROUS PLASMA Specimen Type: PLASM A Comment: No hemolysis noted. Ordering Provider: CAMDEN PATTON Report Released Date/Time: Jul 17, 2024 07:38 PM Reporting Lab: [facility] [address] [facility] [address] Performing Lab: [address] [address] PHOSPHOROUS 2.2 mg/dL L 2.3-4.7 Jul 18, 2024 06:32 AM [facility] COMPREHENSIVE METABOLIC PANEL PLASMA Specimen Type: PLASMA Comment: No hemolysis noted. Ordering Provider: CAMDEN PATTON Report Released Date/Time: Jul 17, 2024 07:38 PM Reporting Lab: [address] [address] Performing Lab: [address] [address] CREATININE 1.08 mg/dL 0.7-1.3 UREA NITROGEN 40.5 [...] 75.2 >60 Jul 18, 2024 12:05 AM [facility] HGB,HCT,PLT BLOOD Specimen Type: BLOOD No comment entered. Ordering Provider: ROSA VARGAS Report Released Date/Time: Jul 17, 2024 09:07 PM Reporting Lab: [facility] [address] [facility] [address] Performing Lab: [address] [address] HGB 7.3 g/dL L 13.1-16.8 HCT 21.0 L 38.2-48.4 PLT 64 10*3/uL L 150-400 Jul 17, 2024 07:45 PM [facility] MRSA SURVL NARES DNA NARES Specimen [...] Jul 17, 2024 07:38 PM Reporting Lab: [address] [address] Performing Lab: [address] [address] MRSA SURVL NARES DNA Negative Negative Jul 17, 2024 07:36 PM [facility] GLUCOSE,BLOOD-poct (L) BLOOD Specimen Type: BLOOD Comment: Test Performed by: [id number] Meter #: [id number] Ordering Provider: CAMDEN PATTON Report Released Date/Time: Jul 17, 2024 07:48 PM Reporting Lab: [address] [address] Performing Lab: [address] [address] GLUCOSE,BLOOD-poct (L) 98 mg/dL 72-99 Jul 17, 2024 07:35 PM [facility] BLOOD GAS PANEL ABG (L) VENOUS BLOOD Specimen Type : VENOUS BLOOD Comment: normalcy status - Below absolute low-off instrument scale Test Performed by: [id number] Meter #: [id number] Ordering Provider: CAMDEN PATTON Report Released Date/Time: Jul 17, 2024 07:37 PM Reporting Lab: [place] [phone] Performing Lab: [address] [address] GEM PH 7.39 7.31-7.41 GEM PCO2 31 [...] TEMP 37.0 Jul 17, 2024 07:10 PM [facility] URINALYSIS W/ CX REFLEX (STL-PB) URINE Specim en Type: URINE No comment entered. Ordering Provider: CASEY WRAY Report Released Date/Time: Jul 17, 2024 04:24 PM Reporting Lab: [address] [address] Performing Lab: [address] [address] URINE COLOR Light-Yellow Yellow U.BILIRUBIN Negative mg/dL Negative U.PH 6.0 5.0-8.0 APPEARANCE Clear Clear U.NITRITE Negative mg/dL Negative URN.GLUCOSE Normal mg/dL Negative URN.PROTEIN Negative mg/dL URN.UROBILINOGEN Normal mg/dL Normal URN.BLOOD Negative mg/dL Negative-Trace URN.KETONES Trace mg/dL Negative-Trace URN.LEUK.EST. Negative mg/dL Negative-Tr april URN.SPECIFIC GRAVITY 1.029 Jul 17, 2024 06:25 PM [facility] RETICULOCYTE PANEL BLOOD Specimen Type: BLOOD No comment entered. Ordering Provider: CASEY WRAY Report Released Date/Time: Jul 17, 2024 06:13 PM Reporting Lab: [place] [address] [facility] [address] Performing Lab: [address] [address] RETIC RATIO 7.35 H 0.50-2.30 IRF 39.7 H 2.3-13.4 RETICULOCYTE HEMOGLOBIN EQUIVALENT 35.8 pg 28.2-36.6 RETIC COUNT,ABS 0.129 10*6/uL H 0.022-0.10 1 Jul 17, 2024 06:25 PM [facility] HAPTOGLOBIN (STL) PLASMA Specimen Type: PLASM A No comment entered. Ordering Provider: CASEY WRAY Report Released Date/Time: Jul 17, 2024 06:13 PM Reporting Lab: [address] [address] Performing Lab: [address] [address] HAPTOGLOBIN (STL) 93 mg/dL 44-215 Jul 17, 2024 06:25 PM [facility] LDH PLASMA Specimen Type: PLASM A No comment entered. Ordering Provider: CASEY WRAY Report Released Date/Time: Jul 17, 2024 06:13 PM Reporting Lab: [address] [address] Performing Lab: [address] [address] LDH 305 U/L H 125-243 Jul 17, 2024 06:25 PM [facility] CBC BLOOD Specimen Type: BLOOD Comment: HGB Called to : Watson White at: 1934 on:[id number] by: [facility] Critical Verbal Readback Performed Ordering Provider: CAMDEN PATTON Report Released Date/Time: Jul 17, 2024 07:09 PM Reporting Lab: [address] [address] Performing Lab: [facility] [address] [place] [address] WBC 27.6 10*3/uL H 3.6-11.2 RBC 1.76 [...] H 2.10-8.00 Jul 17, 2024 04:59 PM [facility] BLOOD GAS PANEL ABG (STL) VENOUS BLOOD Specimen Type : VENOUS BLOOD Comment: Test Performed by: [id number] Meter #: [id number] Ordering Provider: CASEY WRAY Report Released Date/Time: Jul 17, 2024 05:00 PM Reporting Lab: [place] [id number] [place] [facility] [place] [address] Performing Lab: [place] [address] [facility] [address] GEM PH 7.39 7.31-7.41 GEM PCO2 33 [...] TEMP 37.0 Jul 17, 2024 04:25 PM [facility] MAGNESIUM PLASMA Specimen Type: PLASM A Comment: No hemolysis noted. Ordering Provider: CASEY WRAY Report Released Date/Time: Jul 17, 2024 04:24 PM Reporting Lab: [address] [address] Performing Lab: [address] [address] MAGNESIUM 1.4 mg/dL L 1.6-2.6 Jul 17, 2024 04:25 PM [facility] PT/INR NEW ([facility]) PLASMA Specimen Type: PLAS MA No comment entered. Ordering Provider: CASEY WRAY Report Released Date/Time: Jul 17, 2024 04:24 PM Reporting Lab: [address] [address] Performing Lab: [address] [address] PROTIME 25.3 s H 9.4-12.5 INR VALUE 2.3 {INR} Jul 17, 2024 04:25 PM [facility] COVID-19 DIAGNOSTIC (FLU/RSV)(L) NASOPHARYNX Spec imen Type: NASOPHARYNX Comment: Qualitative [...] information for final interpretation. Ordering Provider: CASEY WRAY Report Released Date/Time: Jul 17, 2024 04:24 PM Reporting Lab: [address] [address] Performing Lab: [address] [address] INFLUENZA A Negative Negative INFLUENZA B Negative Negative COVID-19 (STL-PB) Not Detected Not Detec nate RSV (Cepheid) NEGATIVE Negative Jul 17, 2024 04:25 PM [facility] COMPREHENSIVE METABOLIC PANEL PLASMA Specimen Type: PLASMA Comment: No hemolysis noted. Ordering Provider: CASEY WRAY Report Released Date/Time: Jul 17, 2024 04:24 PM Reporting Lab: [place] [id number] [facility] [address] Performing Lab: [address] [address] CREATININE 1.25 mg/dL 0.7-1.3 UREA NITROGEN 47.0 [...] Jul 17, 2024 04:25 PM [facility] CBC BLOOD Specimen Type: BLOOD No comment entered. Ordering Provider: CASEY WRAY Report Released Date/Time: Jul 17, 2024 04:24 PM Reporting Lab: [address] [address] Performing Lab: [address] [address] WBC 42.4 10*3/uL H 3.6-11.2 RBC 2.20 [...] H 2.10-8.00 Jul 13, 2024 12:39 PM [facility] PHOSPHOROUS PLASMA Specimen Type: PLASM A Comment: No hemolysis noted. Ordering Provider: TONY FELICIANO Report Released Date/Time: Jun 07, 2024 01:01 PM Reporting Lab: [address] [place] [address] Performing Lab: [facility] [address] [facility] [address] PHOSPHOROUS 2.4 mg/dL 2.3-4.7 Jul 13, 2024 12:39 PM [facility] TSH W/ REFLEX FT4 (STL) PLASMA Specimen Type: PLASMA No comment entered. Ordering Provider: TONY FELICIANO Report Released Date/Time: Jun 07, 2024 01:01 PM Reporting Lab: [facility] [address] [address] Performing Lab: [facility] [address] [address] TSH 1.431 u[IU]/mL 0.47-5 Jul 13, 2024 12:39 PM [facility] MAGNESIUM PLASMA Specimen Type: PLASM A Comment: No hemolysis noted. Ordering Provider: TONY FELICIANO Report Released Date/Time: Jun 07, 2024 01:01 PM Reporting Lab: [facility] [address] [facility] [address] Performing Lab: [address] [address] MAGNESIUM 2.0 mg/dL 1.6-2.6 Jul 13, 2024 12:39 PM [facility] COMPREHENSIVE METABOLIC PANEL PLASMA Specimen Type: PLASMA Comment: No hemolysis noted. Ordering Provider: TONY FELICIANO Report Released Date/Time: Jun 07, 2024 01:01 PM Reporting Lab: [address] [address] Performing Lab: [address] [address] CREATININE 0.75 mg/dL 0.7-1.3 UREA NITROGEN 21.3 [...] Jul 13, 2024 12:39 PM [facility] CBC BLOOD Specimen Type: BLOOD Comment: no clot Ordering Provider: TONY FELICIANO Report Released Date/Time: Jun 07, 2024 01:01 PM Reporting Lab: [address] [address] Performing Lab: [address] [address] WBC 3.0 10*3/uL L 3.6-11.2 RBC 3.83 [...] 10*3/uL 2.10-8.00 Jul 13, 2024 12:38 PM [facility] ALPHA-FETOPROTEIN(STL-PB) SERUM Specimen Type : SERUM No comment entered. Ordering Provider: CRYSTAL MASSEY Report Released Date/Time: Jul 04, 2024 03:26 PM Reporting Lab: [address] [address] Performing Lab: [address] [address] ALPHA-FETOPROTEIN(STL-PB) 16.86 ng/mL H 1- 8.78 Jul 13, 2024 12:37 PM [facility] CARBOHYDRATE Ag SERUM Specimen Type: SERUM Comment: REFERENCE RANGE: <34 U/mL This test was performed using the Siemens chemiluminescent method. Values obtained from different assay methods cannot be used inter- changeably. CA 19-9 levels, regardless of value, should not be interpreted as absolute evidence of the presence or absence of disease. Test Performed by [facility], [facility], [address] [place] [address] Tristin Iyer M.D., Ph.D., Director of Laboratories , [facility] [id number] Ordering Provider: CRYSTAL MASSEY Report Released Date/Time: Jul 04, 2024 03:28 PM Reporting Lab: [address] [address] Performing Lab: [address] CARBOHYDRATE Ag 61 H SEE BELOW Vital Signs: All taken on the encounter date This section contains inpatient and outpatient Vital Signs collected on the date of the Encounter. Date/Time Temperature Pulse Blood Pressure Respiratory Rate SP02 Pain Height Weight Body Mass Index Source Jul 17, 2024 05:30 PM 108 119/77 [facility] Jul 17, 2024 04:30 PM 109 120/76 [facility] Jul 17, 2024 04:10 PM 97.6 95 89/55 17 [facility] Social History: Smoking Status (Most current) and Tobacco Use (All prior to encounter date) This section includes the most current, and the historical, smoking and tobacco- related health factors from the [place] facility where the Encounter took place. Current Smoking Status This section includes the most current smoking, or tobacco-related health factor, from the [place] facility where the Encounter took place. Date/Time Current Smoking Status Comment Facil ity Jul 17, 2024 04:02 PM [facility] ADMIT TOBACCO SCREEN NO [facility] Tobacco Use History This section includes a history of the smoking, or tobacco-related health factors, that were collected on or before the date of the Encounter. The data comes from the [place] facility where the Encounter took place. Date/Time Smoking Status/Tobacco Use Comment F acility Jan 20, 2023 03:49 PM VA-TOBACCO FORMER USER [facility] Jan 20, 2023 03:49 PM VA-TOBACCO QUIT 15 YRS OR MORE [facility] Feb 06, 2021 04:28 PM VA-TOBACCO FORMER USER [facility] Feb 06, 2021 04:28 PM VA-TOBACCO QUIT 15 YRS OR MORE [facility] Radiology Reports: +/- 30 days of [...] the Encounter. The data comes from all [place] treatment facilities. Date/Time Radiology Report Provider Source Aug 10, 2024 02:[address] ABD PEL W/CONT & 3D: ABRAHAM HAWKR [id number] -[id number] M Exm Date: AUG 10, 2024@14:33 Req Phys: YASIR SANZ MD Pat Loc: [facility]-EMERGENCY DEPT 2ND SHIFT (R Img Loc: [facility] Service: [facility], [facility] [address] [place] [address] (Case [id number] COMPLETE) CT ABDOMEN AND PELVIS W/CONTRAST (CT Detailed) CPT:68562 Contrast Media : Non-ionic Iodinated Reason for Study: Abdominal pain, vomiting Clinical History: Responsible Attending: Svetlana Attending Contact Number: [id number] Resident Contact Number: Abdominal pain, vomiting Allergies listed in CPRS chart: Patient has answered NKA Creatinine:CREATININE 0.82 mg/dL 08/10/2024 11:30 /eGFR: STL EGFR (within one year). CREATININE 0.82 mg/dL (08/10/24 11:30) Wt: 152.1 lb [68.99 kg] (08/10/2024 11:31) History of: Renal failure, chronic or acute renal disease: NO Report Status: Verified Date Reported: AUG 10, 2024 Date Verified: AUG 10, 2024 Spanish Interpreter E-Sig:/ES/PETROS MCCORD Report: Case [id number]. CT ABDOMEN AND PELVIS W/CONTRAST. Gastrointestinal contrast: [...] Dictated by Kenneth Albright DO (vice president integrated). I, Petros Mccord, have reviewed the images and report and concur with these findings. Primary Interpreting Staff: PETROS MCCORD MD (Spanish Interpreter) Primary Interpreting Resident: KENNETH ALBRIGHT, Medical Records Specialist /PETROS REESE [facility] Aug 01, 2024 10:20 AM PET/CT TUMOR IMAGING (SKULL TO MID-THIGH)-P: ABRAHAM HAWK [id number] -1955 M Exm Date: AUG 01, 2024@10:20 Req Phys: TONY FELICIANO Loc: [facility]-ONCOLOGY [facility] (Req'g Loc) [facility] Loc: -PET-CT Service: [address] [address] (Case [id number] COMPLETE) PET/CT TUMOR SKULL BASE TO MID-T(NM Detailed) CPT:94658 CPT Modifiers : PS PET TUMOR SUBSQ TX STRATEGY Reason for Study: Nasopharyngeal cancer (Case [id number] COMPLETE) F-18 FLUORODEOXYGLUCOSE (FDG),PER(NM Detailed) CPT:A9552 Clinical History: Report Status: Verified Date Reported: AUG 01, 2024 Date Verified: AUG 01, 2024 Spanish Interpreter E-Sig:/LOLY/NATASHA LEIJA Report: PATIENT NAME: ABRAHAM HAWK. CASE #: [id number], [id number]. PROCEDURE: PET/CT study Indication: Nasopharyngeal cancer HISTORY: [...] lytic osseous lesion is noted within the vzlwn-ko-mgce. Impression: 1. The previous sites of FDG [...] NEEDED Primary Interpreting Staff: NATASHA LEIJA MD (Spanish Interpreter) /PFT NATASHA LEIJA [facility] Jul 27, 2024 03:41 PM CHEST PORTABLE: ABRAHAM HAWK [id number] -1955 M Exm Date: JUL 27, 2024@15:41 Req Phys: ELIZABETH COATES Pat Loc: [facility]-EMERGENCY DEPT 2ND SHIFT (R Img Loc: [facility]-MAIN RADIOLOGY SUITE Service: Unknown [address] [address] (Case [id number] COMPLETE) CHEST PORTABLE (RAD Detailed) CPT:07404 Proc Modifiers : Portable Reason for Study: sob Clinical History: Report Status: Verified Date Reported: JUL 27, 2024 Date Verified: JUL 27, 2024 Spanish Interpreter E-Sig:/ES/Sol Abraham MD Report: CASE [id number]. AP portable view chest. COMPARISON: Chest x-ray [...] dictated by Krystian Sultana D.O. (vice president integrated) ISol, have reviewed the images and report and concur with these findings. Primary Interpreting Staff: Sol Abraham MD, Radiologist (Spanish Interpreter) Primary Interpreting Resident: Krystian Sultana D.O., Resident Physician /SOL DHALIWAL [facility] Jul 17, 2024 06:[address] ABD PEL W/CONT & 3D: ABRAHAM HAWK [id number] -1955 M Exm Date: JUL 17, 2024@18:18 Req Phys: CASEY WRAY Loc: 4-C SICU-[facility]/07-17-2024@19:47 Img Loc: [facility]-CT IMAGING [facility] Service: Unknown [facility] [address] (Case [id number] COMPLETE) CT ABDOMEN AND PELVIS W/CONTRAST (CT Detailed) CPT:47790 Contrast Media : Non-ionic Iodinated Reason for Study: septic shock, abd pain Clinical History: Responsible Attending: Nils Attending Contact Number: [phone] Resident Contact Number: Septic shock, Patient with [...] 17, 2024 Date Verified: JUL 17, 2024 Spanish Interpreter E-Sig: Report: CT THORAX W/CONT (PE) [PRINTSET], CT ABDOMEN AND PELVIS W/CONTRAST [PRINTSET] Comparison: 03/17/2022, 04/23/2024 Clinical History: RO PE The study was protocoled and supervised at the local [place] facility. Chest 12 series and 1585 images were subsequently received by the [place] National Teleradiology Program (NTP) for interpretation. Abdomen and pelvis 9 series and 1365 images were subsequently received by the [place] National Teleradiology Program (NTP) for interpretation. Total [...] from 09/12/2023. READING PHYSICIAN: Guilherme Talbert M.D. -[phone] 07/17/2024 17:44 PST [facility] [employer] Teleradiology Program [phone] (For Medical Practitioner Use Only) Attention Patients / Veterans: If you have questions or concerns about these test results, please contact your ordering provider or primary care team. Primary Interpreting Staff: RADIOLOGY,OUTSIDE SERVICE, Staff Physician / RADIOLOGY,OUTSIDE SERVICE [facility] Jul 17, 2024 06:[address] PE CHEST W/3D: ABRAHAM HAWK [id number] -1955 M Exm Date: JUL 17, 2024@18:17 Req Phys: CASEY WRAY Pat Loc: 4-C [facility]/07-17-2024@19:47 Img Loc: [facility]-CT IMAGING [facility] Service: Unknown [facility], [facility] [address] [place] [address] (Case [id number] COMPLETE) CT THORAX W/CONT (PE) (CT Detailed) CPT:08971 Contrast Media : unspecified contrast media Reason for Study: RO PE Clinical History: Responsible Attending: Nils Attending Contact Number: [phone] Resident Contact Number: Patient with HCC and [...] 17, 2024 Date Verified: JUL 17, 2024 Spanish Interpreter E-Sig: Report: CT THORAX W/CONT (PE) [PRINTSET], CT ABDOMEN AND PELVIS W/CONTRAST [PRINTSET] Comparison: 03/17/2022, 04/23/2024 Clinical History: RO PE The study was protocoled and supervised at the local [place] facility. Chest 12 series and 1585 images were subsequently received by the [place] National Teleradiology Program (NTP) for interpretation. Abdomen and pelvis 9 series and 1365 images were subsequently received by the [place] National Teleradiology Program (NTP) for interpretation. Total [...] from 09/12/2023. READING PHYSICIAN: Guilherme Talbert M.D. -[phone] 07/17/2024 17:44 [facility] National Teleradiology Program [phone] (For Medical Practitioner Use Only) Attention Patients / Veterans: If you have questions or concerns about these test results, please contact your ordering provider or primary care team. Primary Interpreting Staff: RADIOLOGY,OUTSIDE SERVICE, Staff Physician / RADIOLOGY,OUTSIDE SERVICE [facility] Pathology Reports: +/- 30 [...] the Encounter. The data comes from all [facility] facilities. Date/Time Pathology Report Provider [...] Performing Laboratory: Surgical Pathology Report [facility]# [id number] [address] [address] $FTR - - - - - - [...] - - ABRAHAM HAWK STANDARD FORM 515 ID:[id number] SEX:M :1955 AGE: 68 LOC:APFEE PCP: Deirdre Wild /loly/ CRISTIANA TEMPLETON Pathologist Signed: 08/16/2024 09:[address] [facility] Aug 11, 2024 06:00 AM LR MICROBIOLOGY RE PORT: Accession [UID]: [id number] [[id number]] Received: Aug 11, 2024@06:19 Collection sample: B Karen BLD. BOTTLE Collection date: Aug 11, 2024 06:00 Site/Specimen: BLOOD Provider: GILSON OG Test(s) ordered: BLOOD CULT (SET 1)............ completed: Aug 17, 2024 10:06 * BACTERIOLOGY FINAL REPORT => Aug 17, 2024 10:22 TECH CODE: [id number] Bacteriology Remark(s): 2. KAA Culture shows NO GROWTH IN 6 DAYS =--=--=--=--=--=--=--=--=-- =--=--=--=--=--=--=--=--=-- =--=--=--=--=--=--=--=-- Performing Laboratory: Bacteriology Report [facility]formed By: [facility] [address] [place] [address]# [id number] [address] [address] JULISSA BROWN [facility] Jul 17, 2024 05:10 PM LR MICROBIOLOGY RE PORT: Accession [UID]: [id number] [[id number]] Received: Jul 17, 2024@17:30 Collection sample: B D BLD. BOTTLE (SET 2)Collection date: Jul 17, 2024 17:10 Site/Specimen: BLOOD Provider: CASEY WRAY Test(s) ordered: BLOOD CULT (SET 2)............ completed: Jul 23, 2024 14:26 * BACTERIOLOGY FINAL REPORT => Jul 23, 2024 14:28 TECH CODE: [id number] Bacteriology Remark(s): CULTURE IS NEGATIVE TO DATE, ALL POSITIVES ARE ROUTINELY CALLED. KI Culture shows NO GROWTH IN 6 DAYS. 07/23/24 KI =--=--=--=--=--=--=--=--=-- =--=--=--=--=--=--=--=--=-- =--=--=--=--=--=--=--=-- Performing Laboratory: Bacteriology Report Performed By: [facility] [address] [place] [address] CLIA# [id number] [address] [place] [address] J[place]ISSA BROWN [facility] Jul 17, 2024 05:10 PM LR MICROBIOLOGY RE PORT: Accession [UID]: [id number] [[id number]] Received: Jul 17, 2024@17:30 Collection sample: B D BLD. BOTTLE Collection date: Jul 17, 2024 17:10 Site/Specimen: BLOOD Provider: CASEY WRAY Test(s) ordered: BLOOD CULT (SET 1)............ completed: Jul 23, 2024 14:26 * BACTERIOLOGY FINAL REPORT => Jul 23, 2024 14:28 TECH CODE: [id number] Bacteriology Remark(s): CULTURE IS NEGATIVE TO DATE, ALL POSITIVES ARE ROUTINELY CALLED. KI Culture shows NO GROWTH IN 6 DAYS. 07/23/24 KI =--=--=--=--=--=--=--=--=-- =--=--=--=--=--=--=--=--=-- =--=--=--=--=--=--=--=-- Performing Laboratory: Bacteriology Report Performed By: [facility], [facility] CLIA# [id number] [address] [facility] [address] [place] [address] [facility] Encounter Notes: All associated encounter notes This section contains the clinical notes associated to the Encounter. Date/Time Encounter Note(s) Provider Source Jul 17, 2024 07:05 PM LIFE-SUSTAINING TR EATMENT PLAN: LOCAL TITLE: LIFE-SUSTAINING TREATMENT STANDARD TITLE: LIFE-SUSTAINING TREATMENT PLAN DATE OF NOTE: JUL 17, 2024@19:05 ENTRY DATE: JUL 17, 2024@19:05:14 AUTHOR: CAMDEN PATTON EXP COSIGNER: URGENCY: STATUS: COMPLETED LIFE-SUSTAINING TREATMENT (LST) DECISION-MAKING CAPACITY TO MAKE DECISIONS ABOUT LIFE_SUSTAINING TREATMENTS Patient has capacity to make decisions about LSTs. HEALTH CARE SURROGATE'S NAME AND CONTACT INFORMATION Next of kin: Spouse Name and Contact Information: Name: JEOVANNY HAWK () [address] [place], [place] [address] Phone number: 'S VALUES AND GOALS OF CARE - Goals as reported by the patient (or surrogate): full code, LIFE-SUSTAINING TREATMENT PLAN * In the event of cardiopulmonary arrest: Full code: Attempt CPR. Other Life-Sustaining Treatments: Mechanical Ventilation - In the event of respiratory distress or failure when the patient HAS A PULSE, the patient: Mechanical ventilation discussed and patient does not want to limit at this time. INFORMED CONSENT Patient gave oral informed consent for life-sustaining treatment plan. 5 min Time spent discussing and documenting this care planning activity. /loly/ Camden Patton MD Staff Physician Signed: 07/17/2024 19:[address] Jul 17, 2024 06:40 PM H & P NOTE: LOCAL TITLE: CRITICAL CARE HISTORY AND PHYSICAL STL STANDARD TITLE: H & P NOTE DATE OF NOTE: JUL 17, 2024@18:40 ENTRY DATE: JUL 17, 2024@18:40:18 AUTHOR: CAMDEN PATTON EXP COSIGNER: URGENCY: STATUS: COMPLETED CC: shortness of breath, fatigue, weakness HPI: 68yo M w/ PMHx cirrhosis 2/2 HCV (s/p SVR) c/b HCC s/p TACE (07/2022, 11/2022) (compensated, +grade 1 varices), metastatic SCC of oropharynx s/p RT and recent Keytruda initiation 07/13/2024 who presents with progressive worsening shortness of breath, fatigue, diarrhea with black liquid stools, weakness ever since he received Keytruda on Tuesday. Pt states he was feeling well prior to getting Keytruda; still working. He had not tolerated radiation therapy and so discussed with Dr Feliciano and received first dose of Keytruda on Tuesday. That night, he had some sinus bleeding and felt his long-term congestion from his SCC improve. However, by tuesday, he started having increasing shortness of breath with exertion, lightheadedness with standing, fatigue/generalized weakness, and started having black tarry liquid diarrhea. This progressed and so he came into the ED today. Denies fevers, nausea/vomiting/abd pain/chest pain/rash. Does notice some chills. Has had fpc poor appetite, uses ensure at home. Takes medications from [place] but also uses [facility]SO (homeopathic treatment for his cancer). In ED, afebrile, SBP as low as 80s initially, getting 1L saline with improvement of blood pressure to 120s systolic. On room air though pt gets visibly short of breath with movement. Labs notable for WBC 40s (3 on Tuesday), Hgb 7s (13 on Tuesday), mild RONNIE Cr 1.2, and lactate 8. INR 2 (previously 1s in 2023). Pt got blood cultures and received Vanc + Zosyn. Awaiting CT PE + A/P with contrast. Furthermore, discussed with ED physician re: getting hemolysis labs, calling oncology re: concern for keytruda induced colitis vs hemolytic anemia and potential need for steroids. Plan to admit to ICU for closer monitoring, f/u CT and hemolytsis labs, transfuse as needed, broad spectrum abx in case of sepsis Past EGD 2022: Esophageal Varices, Grade 1, no banding required. 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 Medications: Active Outpatient Medications (excluding Supplies): Issue Date Status Last Fill Active Outpatient Medications Refills Expiration 1) ARTIFICIAL SALIVA ORAL SPRAY Qty: 236 for 30 ACTIVE Issue: 08/01/23 days Sig: USE 3-5 SPRAYS BY MOUTH EVERY TWO Refills: 2 Last : 04/17/24 HOURS NEEDED Expr : 08/01/24 Indication: FOR DRY MOUTH AND THROAT 2) LOPERAMIDE HCL 2MG CAP Qty: 100 for 30 days ACTIVE Issue: 07/13/24 Sig: TAKE TWO CAPSULES BY MOUTH DIRECTED Refills: 11 Last : 07/13/24 AT FIRST ONSET OF DIARRHEA THEN 1 CAPSULE Expr : 07/14/25 AFTER EACH LOOSE STOOL UNTIL DIARRHEA FREE FOR 12 HOURS Indication: FOR DIARRHEA 3) NUTRITION SUPL ENSURE PLUS/STRWBERRY LIQ ACTIVE Issue: 08/05/23 Qty: 96 for 24 days Sig: TAKE 1 CANFUL BY Refills: 1 Last : 09/12/23 MOUTH FOUR TIMES A DAY Expr : 08/05/24 Indication: FOR NUTRITION/DIETARY SUPPLEMENTATION 4) OMEPRAZOLE 40MG EC CAP Qty: 90 for 90 days ACTIVE Issue: 04/18/24 Sig: TAKE ONE CAPSULE BY MOUTH EVERY MORNING Refills: 2 Last : 07/13/24 BEFORE A MEAL TO LOWER STOMACH ACID. TAKE 30 Expr : 04/19/25 MINUTES PRIOR TO FOOD. 5) ONDANSETRON HCL 8MG TAB Qty: 90 for 30 days ACTIVE Issue: 07/13/24 Sig: TAKE ONE TABLET BY MOUTH THREE TIMES A Refills: 11 Last : 07/13/24 DAY NEEDED Expr : 07/14/25 Indication: FOR NAUSEA/VOMITING 6) PROPRANOLOL HCL 10MG TAB Qty: 120 for 60 ACTIVE Issue: 07/13/24 days Sig: TAKE ONE TABLET BY MOUTH TWICE A Refills: 2 Last : 07/13/24 DAY FOR VARICEAL PROPHYLAXIS Expr : 07/14/25 Indication: FOR HIGH BLOOD PRESSURE 7) SODIUM CHLORIDE 0.65% SOLN NASAL SPRAY Qty: ACTIVE Issue: 07/26/23 45 for 30 days Sig: USE 1 SPRAY INTO Refills: 0 Last : 04/17/24 NOSTRIL(S) EVERY 2 HOURS WHILE AWAKE Expr : 07/26/24 Indication: FOR NASAL CONGESTION Start Date Active Non-VA Medications Status Stop Date 1) Non-VA AMPHETAMINE/DEXTROAMPHET 30MG SA CAP ACTIVE SiMG BY MOUTH EVERY MORNING 2) Non-VA LECITHIN CAP,ORAL Si TEASPOON BY ACTIVE MOUTH ONCE A DAY 3) Non-VA MILK THISTLE CAP/TAB Si CAP/TAB ACTIVE BY MOUTH ONCE A DAY 4) Non-VA PAPAYA TAB,CHEWABLE Si TABLETS BY ACTIVE MOUTH ONCE A DAY 5) Non-VA TRAMADOL HCL 50MG TAB Si TABLET ACTIVE BY MOUTH TWICE DAILY NEEDED 6) Non-VA TURMERIC CAP/TAB Si CAPSULE BY ACTIVE MOUTH ONCE A DAY NEEDED 13 Total Medications Life Sustaining Treatment Orders Medications were reviewed with the patient/caregiver and discrepancies resolved. Allergies: Patient has answered NKA Social History: +marijuana, denies smoking or etoh, lives at home w/ , still working Family History: noncontributory Review of Systems: Review of systems reviewed in detail and negative except as noted in HPI Physical Exam: Vitals: (most recent, as listed in the electronic record): B/P: 119/77 (07/17/2024 17:30) Pulse: 108 (07/17/2024 17:30) Temperature: 97.6 F [36.4 C] (07/17/2024 16:10) Weight: 161.2 lb [73.12 kg] (05/11/2024 14:21) Height: 72 in [182.9 cm] (07/26/2023 08:00) BMI: 21.9 Pain: 0 (07/17/2024 16:10) (0-10 scale) General: sitting in bed, pale, tired appearing HEENT: NC/AT dry mucous membranes EOMI Lungs: CTAB Cardiovascular: tachycardic, regular Abdominal: soft mild RUQ tenderness, normoactive bowel sounds Extremities: no edema Musculoskeletal: MALDONADO Neuro: AOx3, conversing well Psych: euthymic Skin: pallor, no rashes Labs: CBC: WBC 42.4 H 10*3/uL 07/17/2024 16:25 RBC 2.20 L 10*6/uL 07/17/2024 16:25 HGB 7.8 L g/dL 07/17/2024 16:25 HCT 21.9 L % 07/17/2024 16:25 MCV 99.5 fL 07/17/2024 16:25 MCH 35.5 H pg 07/17/2024 16:25 MCHC 35.6 g/dL 07/17/2024 16:25 RDW 14.7 % 07/17/2024 16:25 PLT 148 L 10*3/uL 07/17/2024 16:25 MPV 13.3 H fL 07/17/2024 16:25 NEUTROPHILS, AUTO % 91 % 07/17/2024 16:25 LYMPHOCYTES, AUTO % 3 % 07/17/2024 16:25 MONOCYTES, AUTO % 4 % 07/17/2024 16:25 EOSINOPHILS, AUTO % 0 % 07/17/2024 16:25 BASOPHILS, AUTO % 0 % 07/17/2024 16:25 NEUTROPHILS, ABSOLUTE 38.31 H 10*3/uL 07/17/2024 16:25 LYMPHOCYTES, ABSOLUTE 1.26 10*3/uL 07/17/2024 16:25 MONOCYTES, ABSOLUTE 1.75 H 10*3/uL 07/17/2024 16:25 EOSINOPHILS, ABSOLUTE 0.01 10*3/uL 07/17/2024 16:25 BASOPHILS, ABSOLUTE 0.10 10*3/uL 07/17/2024 16:25 NEUTROPHILS 95.7 % 07/17/2024 16:25 BAND NEUTROPHILS 1.7 % 07/17/2024 16:25 LYMPHOCYTES 1.7 % 07/17/2024 16:25 MONOCYTES 4.4 % 07/13/2024 12:39 EOSINOPHILS 0.9 % 07/13/2024 12:39 METAMYELOCYTES 0.9 % 07/17/2024 16:25 ATYPICAL LYMPHOCYTES 8.0 % 05/11/2024 14:19 IMMATURE PLT FRACTION 14.6 H % 07/17/2024 16:25 ANISOCYTOSIS 1+ 07/17/2024 16:25 POIKILOCYTOSIS 1+ 07/13/2024 12:39 TEARDROPS 1+ 07/13/2024 12:39 POLYCHROMASIA 1+ 07/17/2024 16:25 CMP: SODIUM 131 L mEq/L 07/17/2024 16:25 POTASSIUM 4.1 mEq/L 07/17/2024 16:25 CHLORIDE 99 mEq/L 07/17/2024 16:25 UREA NITROGEN 47.0 H mg/dL 07/17/2024 16:25 CREATININE 1.25 mg/dL 07/17/2024 16:25 CALCIUM 9.1 mg/dL 07/17/2024 16:25 PROTEIN 6.4 g/dL 07/17/2024 16:25 ALBUMIN 3.1 L g/dL 07/17/2024 16:25 ALKALINE PHOSPHATASE 97 U/L 07/17/2024 16:25 ALT/SGPT 57 H U/L 07/17/2024 16:25 AST/SGOT 100 H U/L 07/17/2024 16:25 TOTAL BILIRUBIN 1.4 H mg/dL 07/17/2024 16:25 CARBON DIOXIDE 17 L mEq/L 07/17/2024 16:25 GLUCOSE 110 H mg/dL 07/17/2024 16:25 EGFR (CKD-EPI 2020) 63.1 07/17/2024 16:25 TROPONIN: No TROPONIN EO data found U/A: No URINALYSIS EO data found PT/INR: 25.3 sec H (07/17/24 16:25) PTT: 2.3 INR (07/17/24 16:25) Imaging: Impression for CHEST X-RAY, 2 VIEWS, 06/07/22, case 636 The thoracic aorta is atherosclerotic. Degenerative changes in the spine. No pneumothorax. No large pleural effusion. No focal consolidation. Normal heart size. Normal mediastinal contours. Assessment/Plan: 68yo M w/ PMHx cirrhosis 2/2 HCV (s/p SVR) c/b HCC s/p TACE (07/2022, 11/2022) (compensated, +grade 1 varices), metastatic SCC of oropharynx s/p RT and recent Keytruda initiation 07/13/2024 who presents with progressive worsening shortness of breath, fatigue, diarrhea with black liquid stools, weakness ever since he received Keytruda on Tuesday. Found to have acute anemia, significant leukocytosis 43s, initial hypotension, mild RONNIE, INR 2s. #Neutrophilic Leukocytosis, hypotension, tachycardia, SIRS vs Sepsis #Lactic acidosis #Acute anemia - ddx acute blood loss anemia 2/2 GI bleeding vs hemolytic anemia #Shortness of breath without hypoxia 2/2 anemia # - Given that symptoms all started after initiation of Keytruda, differential most likely related to immunotherapy related colitis vs autoimmune hemolytic anemia or both - Also will need to cover for severe sepsis, blood cultures pending, s/p Vanc/Zosyn in ED, will continue as Vanc/Cefe/flagyl for now - F/u CT for colitis, f/u hemolysis labs, will discuss steroid initiation for irAE if either positive - Type and screen, blood consent, transfuse for Hgb < 7 - Trend lactate - f/u CT Chest given shortness of breath though likely is due to acute anemia - r/u Cdiff, check stool PCR #Black stools / diarrhea - most likely related to colitis, however pt does have history of Grade 1 esophageal varices + GAVE diagnosed in 2022 and on Propranolol. - Hold propranolol given hypotension. Start PPI IV BID. - Low concern at this time for variceal bleed but consider adding octreotide if worsen - May need GI consult - Awaiting stool sample #cirrhosis - appears mostly compensated - no PSE / ascites etc. #Coagulopathy - INR 2s, unclear if 2/2 cirrhosis vs nutritional deficiency. Will give IV vitamin K #Mild RONNIE - most likely prerenal. CTM after fluids. #DVT ppx - deferred 2/2 acute anemia #FEN - CLD, NPO after mn in case of needing scope #PIV #Full Code - NOK is Is the patient 65 or older? Yes Is the patient displaying signs of delirium? No Does the patient have a change in their mental status? No Is the patient displaying signs of confusion? No Is the patient displaying signs of disorientation? No This patient was screened for delirium. His/Her current risk level for delirium is : high TOBACCO CESSATION SCREEN AND COUNSELING Has patient used any form of tobacco during the past 30 days? ORYX tobacco: patient has not used tobacco during past 30 days. SCREEN FOR ALCOHOL (AUDIT-C) AUDIT-C An alcohol screening test (AUDIT-C) was negative (score=0). 1. How often did you have a drink containing alcohol in the past year? Consider a drink to be a 12 ounce can or bottle of regular beer, 8 ounces of malt liquor, a 5 ounce glass of table wine, or a 1.5 ounce shot of liquor (like scotch, gin, or vodka). Never 2. How many drinks containing alcohol did you have on a typical day when you were drinking in the past year? Response not required due to responses to other questions. 3. How often did you have six or more drinks on one occasion in the past year? Response not required due to responses to other questions. The material part of the above assessment and plans was discussed with the patient and/or his/her family members who agreed and had no further questions. Total time spent: 45 Minutes /loly/ Camden Patton MD Staff Physician Signed: 07/17/2024 19:[address] 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 no vomiting but some diarrhea. no chest pains. also having poor po intake Level of Consciousness (AVPU): Alert = Appears aware of and responsive to the environment on their own. Follows commands, opens eyes spontaneously, and tracks objects. Vital Signs: Temperature 97.6 F (36.4 C) Pulse 95 Respirations 17 Blood Pressure 89/55 Pulse Oximetry 99 Room Air National Early Warning Score (NEWS): The NEWS total is 4. 1. Temperature (C/F): Score = 0 36.1 - 38.0 C (96.9 - 100.4 F) 2. Pulse: Score = 1 91-110 3. Respirations: Score = 0 12-20 4. Blood Pressure (Only Systolic BP, mmHg): Score = 3 90 or lower 5. Pulse Oximetry: Score = 0 96% or greater 6. Supplemental oxygen in use: Score = 0 No 7. AVPU: Score = 0 Alert Pain: No pain Pain Score: 0 Suicide Screen: [place] Suicide Severity Rating Scale (C-SSRS) screener 1. 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 Dr Wray bedside to evaluate patient. Vitals: Blood Pressure: 120/76 Pulse: 109 Pulse Oximetry: 100% 1656- Pt given meds per BCMA 1710- Lactate returned at 8.1. Dr Wray aware and placing orders 1715- 22G IV established to RFA (2nd site). Pt given meds per BCMA 1730- Vitals: Blood Pressure: 119/77 Pulse: 108 Pulse Oximetry: 100% 1835- Pt to CT via stretcher 1855- Pt returns via stretcher from CT and returned to monitors. Urinal bedside and pt is aware sample is needed 5- Pt VBG drawn and sent to lab. Urine sample collected per order 1924- Report to Shayy MCGUIRE, questions answered 1930- Pt via stretcher on monitor with ICT to SICU /es/ STEPHAN ARMENTA, MSN, RN REGISTERED NURSE Signed: 07/17/2024 19:[address] [facility]
--- OUTSIDE RECORDS SUMMARY | 2024-10-08 17:14 | XMS_ITS | Encounter Summary ---
Author Name [facility] [place] [facility] [place] [facility] [place] Address [address] [place] [address] Care Team Providers Care Non Emergency Services Ambulance Driver Name Role Phone SUKHJINDER CHAHAL Primary Care [...] SUPPL EMENT Nov 25, 2021 PLAN G [id number] [phone] ELLEN HAWK VID PATIENT AARP MED SUPP MEDIGAP PLAN G MEDIC ARE SUPPL EMENT Nov 25, 2021 PLAN G [id number] [phone] ELLEN HAWK VID PATIENT MEDICARE (WNR) MEDICARE (M) PART B Sep 25, 2021 PART B [id number] ELLEN HAWK VID PATIENT MEDICARE (WNR) MEDICARE (M) PART A Aug 25, 2021 PART A [id number] [phone] ELLEN HAWK PATIENT Selected Encounter This section includes the information on record at [place] for the Encounter. Date/Time Encounter Type Encounter Description Reason Provider Source Apr 26, 2024 12:59 PM Outpatient Encounter COMMUNITY CARE CONSULT HORACE CORNELIUS E Encounter Template Text not used by [place] Plan of Treatment: Future Appointments (+ 6 months) and Future Tests (+/- 45 days) The Plan of Treatment section includes future care activities for the [facility] [place] [facility] This section includes future appointments and [...] 2024 01:30 PM AMBULATORY - SURGERY [facility] May 11, 2024 01:00 PM AMBULATORY - NONE [facility] May 11, 2024 02:15 PM AMBULATORY - NONE [facility] May 11, 2024 02:30 PM AMBULATORY - MEDICINE [facility] May 17, 2024 02:15 PM AMBULATORY - NONE [facility] May 22, 2024 03:30 PM AMBULATORY - NONE [facility] May 28, 2024 01:30 PM AMBULATORY - NONE [facility] Jun 07, 2024 11:15 AM AMBULATORY - REHAB MEDICIN E [facility] Jun 07, 2024 01:00 PM AMBULATORY - MEDICINE [facility] Jul 13, 2024 11:30 AM AMBULATORY - MEDICINE [facility] Jul 13, 2024 12:00 PM AMBULATORY - MEDICINE [facility] Jul 17, 2024 04:02 PM AMBULATORY - MEDICINE [facility] Jul 25, 2024 01:00 PM AMBULATORY - MEDICINE [facility] Jul 26, 2024 10:00 AM AMBULATORY - MEDICINE [facility] Jul 27, 2024 03:14 PM AMBULATORY - MEDICINE [facility] Aug 01, 2024 10:15 AM AMBULATORY - NONE [facility] Aug 02, 2024 11:30 AM AMBULATORY - MEDICINE [facility] Aug 02, 2024 11:31 AM AMBULATORY - MEDICINE [facility] Aug 10, 2024 11:00 AM AMBULATORY - MEDICINE [facility] Aug 10, 2024 11:31 AM AMBULATORY - MEDICINE [facility] Lab Results: +/- 30 days [...] Type Comment May 11, 2024 02:35 PM [facility] TSH W/ REFLEX FT4 (STL) PLASMA Specimen Type: PLASMA No comment entered. Ordering Provider: TONY SIMMONS Report Released Date/Time: Jan 05, 2024 02:09 PM Reporting Lab: [place] [address] [facility] [place] [id number] Performing Lab: [place] [address] [facility] [place] [address] TSH 1.974 u[IU]/mL 0.47-5 May 11, 2024 02:20 PM [facility] PT/INR NEW (STL-MA) PLASMA Specimen Type: PLAS MA No comment entered. Ordering Provider: BAL CAREY Report Released Date/Time: May 11, 2024 02:03 PM Reporting Lab: [place] [id number] [facility] [place] [address] Performing Lab: [place] [address] [facility] [place] [address] PROTIME 12.1 s 9.4-12.5 INR VALUE 1.1 {INR} May 11, 2024 02:20 PM [facility] HEP B CORE AB TOTAL. (STL) SERUM Specimen Typ e: SERUM No comment entered. Ordering Provider: BAL CAREY Report Released Date/Time: May 11, 2024 02:18 PM Reporting Lab: [address] [address] Performing Lab: [address] [address] HEP B CORE AB TOTAL. (STL) Nonreactive N onreactive May 11, 2024 02:20 PM [facility] APTT PLASMA Specimen Type: PLASM A No comment entered. Ordering Provider: BAL CAREY Report Released Date/Time: May 11, 2024 02:03 PM Reporting Lab: [address] [address] Performing Lab: [address] [address] APTT 28.7 s 26.7-39.9 May 11, 2024 02:20 PM [facility] COMPREHENSIVE METABOLIC PANEL PLASMA Specimen Type: PLASMA Comment: No hemolysis noted. Ordering Provider: BAL CAREY Report Released Date/Time: May 11, 2024 02:03 PM Reporting Lab: [place] [address] [facility] [place] [address] Performing Lab: [address] [address] CREATININE 1.06 mg/dL 0.7-1.3 UREA NITROGEN 20.5 [...] 76.9 >60 May 11, 2024 02:19 PM [facility] PROTEIN ELECTROPHORESIS BLOOD SERUM Specimen Type: SERUM Comment: Reference Range: None Detected normalcy status - Abnormal normalcy status - Abnormal NOTE: THIS RESULT IS FLAGGED ABNORMAL Evaluation reveals a restricted band (M-spike) migrating in the gamma globulin region. If not already requested, Immunofixation should be considered. Test Performed by [facility], [employer] [facility], [address] [place], [place] Tristin Iyer M.D., Ph.D., Director of Laboratories , [facility] [id number] PREVIOUS SUGAR: IgG [place] Ordering Provider: TONY SIMMONS Report Released Date/Time: Jan 05, 2024 02:08 PM Reporting Lab: [address] [address] Performing Lab: [facility] [address] [facility] ALPHA-1 GLOBULIN(SO-PB-STL) 0.3 g/dL 0.2 -0.3 ALPHA-2 GLOBULIN(SO-PB-STL) 0.8 g/dL 0.5 -0.9 BETA 1 GLOBULIN(SO-PB-STL) 0.4 g/dL 0.4- 0.6 GAMMA GLOBULIN (SO-PB-STL) 2.0 g/dL H 0.8- 1.7 TOTAL PROTEIN (SO-PB-STL) 7.9 g/dL 6.1-8 .1 ALBUMIN(ELECTROPHORESIS 4.1 g/dL 3.8-4.8 BETA 2 GLOBULIN (SO-PB) 0.3 g/dL 0.2-0.5 INTERPRETATION (STL-PB) SEE NOTE ABNORMAL PROTEIN BAND 1 (SO-PB-STL) 1.2 g/dL H May 11, 2024 02:19 PM [facility] IGM (STL) PLASMA Specimen Type: PLASM A Comment: No hemolysis noted. Ordering Provider: TONY SIMMONS Report Released Date/Time: Jan 05, 2024 02:08 PM Reporting Lab: [facility] [address] [facility] [address] Performing Lab: [address] [address] IGM (STL) 117 mg/dL 22-240 May 11, 2024 02:19 PM [facility] IGA (STL) PLASMA Specimen Type: PLASM A Comment: No hemolysis noted. Ordering Provider: TONY SIMMONS Report Released Date/Time: Jan 05, 2024 02:08 PM Reporting Lab: [place] [address] [facility] [place] [address] Performing Lab: [facility] [address] [place] [address] IGA (STL) 117 mg/dL 63-484 May 11, 2024 02:19 PM [facility] KAPPA/LAMBDA FREE LC PANEL (STL-PB) SERUM Spe cimen Type: SERUM No comment entered. Ordering Provider: TONY SIMMONS Report Released Date/Time: Jan 05, 2024 02:08 PM Reporting Lab: [place] [address] [facility] [place] [address] Performing Lab: [place] [address] [facility] [place] [address] KAPPA FREE LC (STL) 92.4 mg/L H 2.4-20.7 LAMBDA FREE LC (STL) 25.6 mg/L 4.2-27.7 KAPPA/LAMBDA RATIO (STL) 3.61 H 0.22-1. 74 May 11, 2024 02:19 PM [facility] IGG (STL) PLASMA Specimen Type: PLASM A Comment: No hemolysis noted. Ordering Provider: TONY SIMMONS Report Released Date/Time: Jan 05, 2024 02:08 PM Reporting Lab: [facility] [address] [facility] [place] [address] Performing Lab: [address] [address] IGG (STL) 2162 mg/dL H 540-1822 May 11, 2024 02:19 PM [facility] MAGNESIUM PLASMA Specimen Type: PLASM A Comment: No hemolysis noted. Ordering Provider: TONY SIMMONS Report Released Date/Time: Jan 05, 2024 02:09 PM Reporting Lab: [facility] [address] [facility] [address] Performing Lab: [facility] [address] [place] [address] MAGNESIUM 1.9 mg/dL 1.6-2.6 May 11, 2024 02:19 PM [facility] PHOSPHOROUS PLASMA Specimen Type: PLASM A Comment: No hemolysis noted. Ordering Provider: TONY SIMMONS Report Released Date/Time: Jan 05, 2024 02:09 PM Reporting Lab: [address] [address] Performing Lab: [address] [address] PHOSPHOROUS 2.5 mg/dL 2.3-4.7 May 11, 2024 02:19 PM [facility] COMPREHENSIVE METABOLIC PANEL PLASMA Specimen Type: PLASMA Comment: No hemolysis noted. Ordering Provider: TONY SIMMONS Report Released Date/Time: Jan 05, 2024 02:08 PM Reporting Lab: [address] [address] Performing Lab: [address] [address] CREATININE 1.04 mg/dL 0.7-1.3 UREA NITROGEN 19.6 [...] 78.7 >60 May 11, 2024 02:19 PM [facility] CBC BLOOD Specimen Type: BLOOD No comment entered. Ordering Provider: TONY SIMMONS Report Released Date/Time: Jan 05, 2024 02:08 PM Reporting Lab: [facility] [address] [facility] [address] Performing Lab: [address] [address] WBC 4.5 10*3/uL 3.6-11.2 RBC 4.26 10*6/uL [...] 10*3/uL 2.10-8.00 Apr 23, 2024 11:26 AM [facility] GLUCOSE,BLOOD-poct (STL) BLOOD Specimen Type: BLOOD Comment: Test Performed by: [id number] Meter #: [id number] Ordering Provider: SUKHJINDER CHAHAL Report Released Date/Time: Apr 23, 2024 11:43 AM Reporting Lab: [facility] [address] [facility] [address] Performing Lab: [address] [address] GLUCOSE,BLOOD-poct (STL) 117 mg/dL H 72-99 Social [...] 20, 2023 03:49 PM [place]-TOBACCO FORMER USER [facility] Tobacco Use History This section includes a history of the smoking, or tobacco-related health factors, that were collected on or before the date of the Encounter. The data comes from the [place] facility where the Encounter took place. Date/Time Smoking Status/Tobacco Use Comment F acility Jan 20, 2023 03:49 PM VA-TOBACCO QUIT 15 YRS OR MORE [facility] Feb 06, 2021 04:28 PM VA-TOBACCO FORMER USER [facility] Feb 06, 2021 04:28 PM VA-TOBACCO QUIT 15 YRS OR MORE [facility] Radiology Reports: +/- 30 days [...] ORBITS,FACE & NECK W/O&W CONT: ABRAHAM HAWK [id number] -[id number] M Exm Date: MAY 22, 2024@15:03 Req Phys: TONY SIMMONS Loc: [facility] (Req'g Loc) Img Loc: [facility] Service: Unknown [facility], [address] [place] [address] (Case [id number] COMPLETE) MRI ORBITS,FACE & NECK W/O&W CONT(MRI Detailed) CPT:06290 Contrast Media : unspecified contrast media Reason for Study: Restaging SWEEPING COMPOUND BLENDER CANCER (Case [id number] COMPLETE) MRI 3D RENDERING W/O INDEPENDENT (MRI Detailed) CPT:57305 Clinical History: Responsible Attending: Tony Friedman Attending Contact Number: [phone] Resident Contact Number: Does your patient have [...] 23, 2024 Date Verified: MAY 23, 2024 Health Program Manager E-Sig:/ES/EUGENIE ALAN MD Report: Multiplanar, multisequence MRI [...] Primary Interpreting Staff: EUGENIE ALAN MD, Radiologist (Health Program Manager) /[facility] Apr 23, 2024 11:44 AM PET/CT TUMOR IMAGING (SKULL TO MID-THIGH)-P: ABRAHAM HAWK [id number] -[id number] M Exm Date: APR 23, 2024@11:44 Req Phys: TAMIKA CARRION Loc: -NUCLEAR MEDICINE PET SCAN 2 Img Loc: -PET-CT Service: Unknown [facility], [facility] [address] [place] [address] (Case [id number] COMPLETE) PET/CT TUMOR SKULL BASE TO MID-T(NM Detailed) CPT:99144 CPT Modifiers : PS PET TUMOR SUBSQ TX STRATEGY Reason for Study: nasopharynx cancer (Case [id number] COMPLETE) F-18 FLUORODEOXYGLUCOSE (FDG),PER(NM Detailed) CPT:A9552 Clinical History: Report Status: Verified Date Reported: APR 23, 2024 Date Verified: APR 23, 2024 Health Program Manager E-Sig:/ES/ROMANA PARISH M.D. Report: PATIENT NAME: ABRAHAM HAWK. CASE #: [id number], [id number]. PROCEDURE: PET/CT study from the vertex to [...] lytic osseous lesion is noted within the bnjwg-hi-jahy. Multilevel degenerative changes are noted throughout the [...] clinically warranted. DIAGNOSTIC CODE: 1001 Dictated by Natasha Leija MD (PET/CT fellow). I, Romana Parish, have reviewed the images and report and concur with these findings. Primary Diagnostic Code: SIGNIFICANT ABNORMALITY, ATTN NEEDED Primary Interpreting Staff: ROMANA PARISH M.D., STAFF PHYSICIAN - DIAGNOSTIC IMAGING (Health Program Manager) /PFT ROMANA PARISH [facility] Encounter Notes: All associated encounter notes This section contains the clinical notes associated to the Encounter. Date/Time Encounter Note(s) Provider Source Apr 26, 2024 12:59 PM NONVA NOTE: LOCAL TITLE: COMMUNITY CARE-CARE COORDINATION PLAN NOTE 657 STL STANDARD TITLE: NONVA NOTE DATE OF NOTE: APR 26, 2024@12:59 ENTRY DATE: APR 26, 2024@12:59:21 AUTHOR: HORACE CORNELIUS EXP COSIGNER: URGENCY: STATUS: COMPLETED COMMUNITY CARE-CARE COORDINATION PLAN NOTE 657 STL Has ADDENDA Community Care Consult: hem/onc Consult No: [id number] HSRM Referral #: pending DOA approval Chief Complaint: Tumor site: Nasopharynx Patient Admitted? No Level of Care Coordination Moderate Care Coordination was determined from: Chart Review Facility Community Care Office Contact Care Coordination Point of Contact: Horace Cornelius Services: Basic Care Coordination Services Monitoring and coordination of Rehab/PT Services Direct communication to referring provider Care management, if appropriate Plan: CiTC will proceed after DOA decision. /loly/ HORACE CORNELIUS MSN RN REGISTERED NURSE Signed: 04/26/2024 13:00 04/27/2024 ADDENDUM STATUS: COMPLETED Care Coordination Follow Up Level of Care Coordination Moderate Care Coordination was determined from: Chart Review, Phone call to /Family/Caregiver Services: Basic Care Coordination Services Monitoring and coordination of Rehab/PT Services Direct communication to referring provider Care management, if appropriate Plan: CECILIA HEM/ONC - [facility] [address] [facility] ; [address],[id number] Provider Name (if known): NATASHA BELLAMY [facility] Provider Provider Provider PSP PRQ-Provider requires records to review prior to scheduling. DU-Documents uploaded to [facility]. RSP-Records faxed/sent to Community Care Provider. [facility] User Role: RN COM-Additional Comments: Referral Number: [id number] CONTACT [place] contacted on Apr to discuss consult status. Initial call conversation included opting into CCN program: Informed that referral has been approved for six months. was unsure of exact location of CC Provider. After confirmation from [facility] nurse ([place]), referral was sent to above CC Provider for review and scheduling. Counter Help NITIN w/ regarding direction of consult. Will follow until consult is scheduled and Will coordinate care with and VA/Community providers throughout EOC. CC staff will call post first appointment and throughout EOC as warranted. Action Needed? Shanna /loly/ HORACE ANTON RN REGISTERED NURSE Signed: 04/27/2024 09:43 05/19/2024 ADDENDUM STATUS: COMPLETED Care Coordination Follow Up Level of Care Coordination Complex/Chronic Care Coordination was determined from: Chart Review Services: Moderate Care Coordination Services Case Management, if appropriate Direct communications with interdisciplinary team Plan: According to EPIC/med onc: ASSESSMENT AND PLAN: In summary, Abraham Hawk is a 68 y.o. 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 Lau who discussed further radiation - I discussed that pembrolizumab as a single agent could be considered; it is generally well tolerated but can be associated with immune mediated toxicities (pneumonitis, hepatitis, colitis, endocrinopathies, dermatitis) ; while responses can be durable, response rates are limited (~20%) - he would be a poor candidate for any traditional cytotoxic chemotherapy with ongoing thrombocytopenia - he is interested in seeing what his [facility] team may offer; if he wants to try pembrolizumab, we would be happy to see and treat him here; he will call with his wishes HCC: - s/p TACE - follows with hepatology Copy of notes sent to [facility]. /loly/ HORACE ANTON RN REGISTERED NURSE Signed: 05/19/2024 12:[address] [facility]
--- OUTSIDE RECORDS SUMMARY | 2024-10-08 17:14 | XMS_ITS | Encounter Summary ---
Author Name [facility] [place] [facility] [place] [facility] [place] [facility] [place] Address [address] [place] [address] Care Team Providers Care Inside Plant Supervisor Name Role Phone SUKHJINDER CHAHAL Primary Care [...] SUPPL EMENT Nov 25, 2021 PLAN G [id number] [phone] ELLEN HAWK VID PATIENT AARP MED SUPP MEDIGAP PLAN G MEDIC ARE SUPPL EMENT Nov 25, 2021 PLAN G [id number] [phone] ELLEN HAWK VID PATIENT MEDICARE (WNR) MEDICARE (M) PART B Sep 25, 2021 PART B [id number] [phone] ELLEN HAWK VID PATIENT MEDICARE (WNR) MEDICARE (M) PART A Aug 25, 2021 PART A [id number] [phone] ELLEN HAWKD PATIENT Selected Encounter This section includes the information on record at [place] for the Encounter. Date/Time Encounter Type Encounter Description Reason Provider Source Jul 19, 2024 12:38 PM EVALUATE SWALLOWING FUNCTION SPEECH-LANGUAGE PATHOLOGY ICD-10-CM R13.11 Dysphagia, oral phase OSWALDO GUZMAN IHE Encounter Template Text not used by [place] Assessments - Encounter Diagnoses This section includes the primary and secondary diagnoses documented for the Encounter. Date/Time Primary/Secondary Diagnosis Diagnosis Name Provider Source Jul 19, 2024 12:48 PM PRIMARY Dysphagia, oral phase PANTERA GUZMANN [facility] Plan of Treatment: Future Appointments (+ 6 months) and Future Tests (+/- 45 days) The Plan of Treatment section includes future care activities for the patient from all [place] treatmentfast[facility]. This section includes future appointments and future orders which are active, pending or scheduled. Future Appointments This section includes appointments that were scheduled to occur 6 months from the date of the Encounter, up to a maximum of 20 appointments. The data comes from all [place] treatment facilities. Appointment Date/Time Appointment Type Appointme nt Facility Name Jul 25, 2024 01:00 PM AMBULATORY - MEDICINE [facility] Jul 26, 2024 10:00 AM AMBULATORY - MEDICINE [facility] Jul 27, 2024 03:14 PM AMBULATORY - MEDICINE [facility] Aug 01, 2024 10:15 AM AMBULATORY - NONE [facility] Aug 02, 2024 11:30 AM AMBULATORY - MEDICINE [facility] Aug 02, 2024 11:31 AM AMBULATORY - MEDICINE [facility] Aug 10, 2024 11:00 AM AMBULATORY - MEDICINE [facility] Aug 10, 2024 11:31 AM AMBULATORY - MEDICINE [facility] Aug 10, 2024 11:59 AM AMBULATORY - MEDICINE [facility] Aug 16, 2024 10:00 AM AMBULATORY - MEDICINE [facility] Aug 17, 2024 08:30 AM AMBULATORY - MEDICINE [facility] Aug 17, 2024 09:00 AM AMBULATORY - MEDICINE [facility] Aug 17, 2024 09:30 AM AMBULATORY - MEDICINE [facility] Aug 23, 2024 12:00 PM [facility] NONE [facility] Aug 31, 2024 02:00 PM AMBULATORY - MEDICINE [facility] Sep 07, 2024 11:00 AM AMBULATORY - MEDICINE [facility] Sep 07, 2024 01:00 PM AMBULATORY - MEDICINE [facility] Oct 15, 2024 03:00 PM AMBULATORY - SURGERY [facility] Oct 19, 2024 02:00 PM AMBULATORY - NONE [facility] Active, Pending, and Scheduled Orders This section includes a listing of several types of active, pending, and scheduled orders, including clinic medications orders, diagnostic test orders, procedure orders and consult orders; where the start date of the order is 45 days before the date of the Encounter or 45 days after the date of theEncounter. The data comes from all [facility] facilities. Test Date/Time Test Type Test Details Facility Name Jul 17, 2024 12:00 AM Laboratory - Blood Bank Order RED BLOOD CELLS - LAB VBECS - NO SPECIMEN REQUIRED [facility] Jul 17, 2024 12:00 AM Laboratory - Blood Bank Order FRESH FROZEN PLASMA - LAB VBECS - NO SPECIMEN REQUIRED [facility] Jul 17, 2024 06:13 PM Laboratory - Blood Bank Order DIRECT ANTIGLOBULIN TEST - LAB BLOOD STAT [facility] Jul 17, 2024 06:13 PM Laboratory - Blood Bank Order TYPE & SCREEN - LAB BLOOD [facility] Jul 18, 2024 12:00 AM Laboratory - Blood Bank Order PLATELETS - LAB VBECS - NO SPECIMEN REQUIRED [facility] Aug 10, 2024 12:00 AM Laboratory - Blood Bank Order RED BLOOD CELLS - LAB VBECS - NO SPECIMEN REQUIRED JOANN [facility] Aug 10, 2024 02:00 PM Laboratory - Blood Bank Order TYPE & SCREEN - LAB BLOOD [facility] Aug 10, 2024 05:43 PM Laboratory - Chemistry Order LIPASE GREEN LI/HEP BLD/PLAS PLASMA STAT I ONCE [facility] Aug 10, 2024 05:44 PM Laboratory - Microbiology Order BLOOD CULT (SET 2) B D BLD. BOTTLE (SET 2) BLOOD JOANN I NOW [facility] Aug 11, 2024 02:00 AM Laboratory - Chemistry Order CBC BLOOD WC [facility] Aug 14, 2024 02:00 AM Laboratory - Chemistry Order CBC BLOOD WC [facility] Aug 15, 2024 02:00 AM Laboratory - Chemistry Order CBC BLOOD WC [facility] Aug 16, 2024 12:00 AM Laboratory - Chemistry Order CBC BLOOD SP [facility] Aug 16, 2024 08:00 PM Laboratory - Chemistry Order CBC BLOOD LC [facility] Aug 17, 2024 08:00 PM Laboratory - Chemistry Order CBC BLOOD LC [facility] Lab Results: +/- 30 days of the [...] Comment Aug 17, 2024 03:34 PM [facility] TSH W/ REFLEX FT4 (STL) PLASMA Specimen Type: PLASMA No comment entered. Ordering Provider: TONY SIMMONS Report Released Date/Time: Aug 10, 2024 12:01 PM Reporting Lab: [facility] [address] Performing Lab: [facility] [address] [facility] [address] TSH 4.570 u[IU]/mL 0.47-5 Aug 17, 2024 03:34 PM [facility] COMPREHENSIVE METABOLIC PANEL PLASMA Specimen Type: PLASMA Comment: No hemolysis noted. Ordering Provider: TONY SIMMONS Report Released Date/Time: Aug 10, 2024 12:01 PM Reporting Lab: [place] [address] [facility] [address] Performing Lab: [place] [address] [facility] [address] CREATININE 0.85 mg/dL 0.7-1.3 UREA NITROGEN 11.5 [...] 95.2 >60 Aug 17, 2024 03:34 PM [facility] CBC BLOOD Specimen Type: BLOOD Comment: No Clots Ordering Provider: TONY SIMOMNS Report Released Date/Time: Aug 10, 2024 12:01 PM Reporting Lab: [place] [id number] [facility] [address] Performing Lab: [address] [address] WBC 5.0 10*3/uL 3.6-11.2 RBC 2.83 10*6/uL [...] 4.9 1.0-7.0 Aug 15, 2024 07:20 AM [facility] CBC BLOOD Specimen Type: BLOOD Comment: No clots detected in specimen. Ordering Provider: CASH CLOUD Report Released Date/Time: Aug 12, 2024 01:47 PM Reporting Lab: [facility] [address] [facility] [address] Performing Lab: [place] [address] [facility] [address] WBC 4.9 10*3/uL 3.6-11.2 RBC 2.93 10*6/uL [...] 2.10-8.00 Aug 15, 2024 04:54 AM [facility] GLUCOSE,BLOOD-poct (STL) BLOOD Specimen Type: BLOOD Comment: Test Performed by: [id number] Meter #: [id number] Ordering Provider: DEIRDRE WILD Report Released Date/Time: Aug 15, 2024 05:21 AM Reporting Lab: [address] [address] Performing Lab: [address] [address] GLUCOSE,BLOOD-poct (STL) 112 mg/dL H 72-99 Aug 14, 2024 08:30 PM [facility] CRP PLASMA Specimen Type: PLASM A No comment entered. Ordering Provider: CASH CLOUD Report Released Date/Time: Aug 12, 2024 10:14 AM Reporting Lab: [address] [address] Performing Lab: [address] [address] CRP 0.7 mg/dL H 0-0.5 Aug 14, 2024 08:30 PM [facility] CBC BLOOD Specimen Type: BLOOD No comment entered. Ordering Provider: GILSON OG Report Released Date/Time: Aug 10, 2024 04:01 PM Reporting Lab: [address] [address] Performing Lab: [address] [address] WBC 4.6 10*3/uL 3.6-11.2 RBC 2.83 10*6/uL [...] 2.10-8.00 Aug 14, 2024 07:54 PM [facility] GLUCOSE,BLOOD-poct (STL) BLOOD Specimen Type: BLOOD Comment: Test Performed by: [id number] Meter #: [id number] Ordering Provider: DEIRDRE WILD Report Released Date/Time: Aug 14, 2024 08:15 PM Reporting Lab: [address] [address] Performing Lab: [address] [address] GLUCOSE,BLOOD-poct (STL) 112 mg/dL H 72-99 Aug 14, 2024 04:10 PM [facility] GLUCOSE,BLOOD-poct (STL) BLOOD Specimen Type: BLOOD Comment: Test Performed by: [id number] Meter #: [id number] Ordering Provider: DEIRDRE WILD Report Released Date/Time: Aug 14, 2024 04:43 PM Reporting Lab: [address] [address] Performing Lab: [address] [address] GLUCOSE,BLOOD-poct (STL) 115 mg/dL H 72-99 Aug 14, 2024 02:05 PM [facility] COMPREHENSIVE METABOLIC PANEL PLASMA Specimen Type: PLASMA Comment: No hemolysis noted. Ordering Provider: GILSON OG Report Released Date/Time: Aug 14, 2024 06:56 AM Reporting Lab: [address] [address] Performing Lab: [address] [address] CREATININE 0.75 mg/dL 0.7-1.3 UREA NITROGEN 9.3 [...] 98.9 >60 Aug 14, 2024 02:05 PM [facility] CBC BLOOD Specimen Type: BLOOD Comment: No platelet clots or clumping detected. Ordering Provider: GILSON OG Report Released Date/Time: Aug 10, 2024 04:01 PM Reporting Lab: [facility] [address] [facility] [address] Performing Lab: [facility] [address] [place] [address] WBC 4.6 10*3/uL 3.6-11.2 RBC 3.06 10*6/uL [...] 2.10-8.00 Aug 14, 2024 10:12 AM [facility] GLUCOSE,BLOOD-poct (L) BLOOD Specimen Type: BLOOD Comment: Test Performed by: [id number] Meter #: [id number] Ordering Provider: DEIRDRE WILD Report Released Date/Time: Aug 14, 2024 10:13 AM Reporting Lab: [address] [address] Performing Lab: [address] [address] GLUCOSE,BLOOD-poct ([facility]) 112 mg/dL H 72-99 Aug 14, 2024 09:20 AM [facility] PT/INR NEW (L-MA) PLASMA Specimen Type: PLAS MA No comment entered. Ordering Provider: GILSON OG Report Released Date/Time: Aug 14, 2024 09:06 AM Reporting Lab: [address] [address] Performing Lab: [address] [address] PROTIME 13.6 s H 9.4-12.5 INR VALUE 1.2 {INR} Aug 14, 2024 06:51 AM [facility] CBC BLOOD Specimen Type: BLOOD No comment entered. Ordering Provider: CASH CLOUD Report Released Date/Time: Aug 12, 2024 01:47 PM Reporting Lab: [address] [address] Performing Lab: [address] [address] WBC 3.8 10*3/uL 3.6-11.2 RBC 2.56 10*6/uL [...] 2.10-8.00 Aug 14, 2024 06:03 AM [facility] GLUCOSE,BLOOD-poct (STL) BLOOD Specimen Type: BLOOD Comment: Test Performed by: [id number] Meter #: [id number] Ordering Provider: DEIRDRE WILD Report Released Date/Time: Aug 14, 2024 06:07 AM Reporting Lab: [address] [address] Performing Lab: [address] [address] GLUCOSE,BLOOD-poct (STL) 114 mg/dL H 72-99 Aug 13, 2024 09:11 PM [facility] GLUCOSE,BLOOD-poct (STL) BLOOD Specimen Type: BLOOD Comment: Test Performed by: [id number] Meter #: [id number] Ordering Provider: DEIRDRE WILD Report Released Date/Time: Aug 13, 2024 09:40 PM Reporting Lab: [place] [address] [facility] [address] Performing Lab: [address] [address] GLUCOSE,BLOOD-poct (STL) 160 mg/dL H 72-99 Aug 13, 2024 07:10 PM [facility] COMPREHENSIVE METABOLIC PANEL PLASMA Specimen Type: PLASMA Comment: No hemolysis noted. Ordering Provider: GILSON OG Report Released Date/Time: Aug 14, 2024 07:03 AM Reporting Lab: [address] [address] Performing Lab: [address] [address] CREATININE 0.75 mg/dL 0.7-1.3 UREA NITROGEN 10.3 [...] 98.9 >60 Aug 13, 2024 07:10 PM [facility] CRP PLASMA Specimen Type: PLASM A No comment entered. Ordering Provider: CASH CLOUD Report Released Date/Time: Aug 12, 2024 10:14 AM Reporting Lab: [address] [place] [address] Performing Lab: [place] [address] [facility] [address] CRP 0.7 mg/dL H 0-0.5 Aug 13, 2024 07:10 PM [facility] CBC BLOOD Specimen Type: BLOOD No comment entered. Ordering Provider: GILSON OG Report Released Date/Time: Aug 10, 2024 04:01 PM Reporting Lab: [place] [address] [facility] [address] Performing Lab: [place] [address] [address] [facility] [address] WBC 5.3 10*3/uL 3.6-11.2 RBC 2.67 10*6/uL [...] 2.10-8.00 Aug 13, 2024 04:35 PM [facility] GLUCOSE,BLOOD-poct (STL) BLOOD Specimen Type: BLOOD Comment: Test Performed by: [id number] Meter #: [id number] Ordering Provider: DEIRDRE WILD Report Released Date/Time: Aug 13, 2024 05:18 PM Reporting Lab: [facility] [address] [facility] [place] [address] Performing Lab: [address] [address] GLUCOSE,BLOOD-poct (STL) 113 mg/dL H 72-99 Aug 13, 2024 02:36 PM [facility] CBC BLOOD Specimen Type: BLOOD No comment entered. Ordering Provider: GILSON OG Report Released Date/Time: Aug 10, 2024 04:01 PM Reporting Lab: [address] [address] Performing Lab: [address] [address] WBC 5.8 10*3/uL 3.6-11.2 RBC 2.77 10*6/uL [...] 2.10-8.00 Aug 13, 2024 11:37 AM [facility] GLUCOSE,BLOOD-poct (STL) BLOOD Specimen Type: BLOOD Comment: Test Performed by: [id number] Meter #: [id number] Ordering Provider: DEIRDRE WILD Report Released Date/Time: Aug 13, 2024 11:38 AM Reporting Lab: [place] [phone] Performing Lab: [place] [phone] GLUCOSE,BLOOD-poct ([facility]) 131 mg/dL H 72-99 Aug 13, 2024 08:06 AM [facility] CBC BLOOD Specimen Type: BLOOD Comment: no clot Ordering Provider: CASH CLOUD Report Released Date/Time: Aug 12, 2024 01:47 PM Reporting Lab: [place] [phone] Performing Lab: [address] [address] WBC 3.0 10*3/uL L 3.6-11.2 RBC 2.61 [...] 2.10-8.00 Aug 13, 2024 04:45 AM [facility] GLUCOSE,BLOOD-poct (STL) BLOOD Specimen Type: BLOOD Comment: Test Performed by: [id number] Meter #: [id number] Ordering Provider: DEIRDRE WILD Report Released Date/Time: Aug 13, 2024 06:18 AM Reporting Lab: [place] [address] [facility] [address] Performing Lab: [place] [phone] GLUCOSE,BLOOD-poct (STL) 139 mg/dL H 72-99 Aug 12, 2024 10:10 PM [facility] GLUCOSE,BLOOD-poct (STL) BLOOD Specimen Type : BLOOD Comment: Test Performed by: [id number] Meter #: [id number] Ordering Provider: DEIRDRE WILD Report Released Date/Time: Aug 12, 2024 10:50 PM Reporting Lab: [place] [address] [facility] [address] Performing Lab: [place] [address] [facility] [address] GLUCOSE,BLOOD-poct (STL) 105 mg/dL H 72-99 Aug 12, 2024 08:48 PM [facility] CRP PLASMA Specimen Type: PLASM A No comment entered. Ordering Provider: CASH CLOUD Report Released Date/Time: Aug 12, 2024 10:14 AM Reporting Lab: [place] [address] [facility] [address] Performing Lab: [address] [address] CRP 0.6 mg/dL H 0-0.5 Aug 12, 2024 08:48 PM [facility] CBC BLOOD Specimen Type: BLOO D Comment: SEE PREVIOUS DIFFERENTIAL ON 08/12/24 @ 7889 Ordering Provider: GILSON OG Report Released Date/Time: Aug 10, 2024 04:01 PM Reporting Lab: [address] [address] Performing Lab: [address] [address] WBC 5.0 10*3/uL 3.6-11.2 RBC 2.78 10*6/uL [...] 1.0-7.0 Aug 12, 2024 04:51 PM [facility] GLUCOSE,BLOOD-poct (STL) BLOOD Specimen Type: BLOOD Comment: Test Performed by: [id number] Meter #: [id number] Ordering Provider: DEIRDRE WILD Report Released Date/Time: Aug 12, 2024 05:07 PM Reporting Lab: [address] [address] Performing Lab: [address] [address] GLUCOSE,BLOOD-poct (STL) 135 mg/dL H 72-99 Aug 12, 2024 02:33 PM [facility] CBC BLOOD Specimen Type: BLOOD No comment entered. Ordering Provider: GILSON OG Report Released Date/Time: Aug 10, 2024 04:01 PM Reporting Lab: [address] [address] Performing Lab: [address] [address] WBC 4.0 10*3/uL 3.6-11.2 RBC 2.56 10*6/uL [...] 2.10-8.00 Aug 12, 2024 11:51 AM [facility] GLUCOSE,BLOOD-poct (STL) BLOOD Specimen Type: BLOOD Comment: Test Performed by: [id number] Meter #: [id number] Ordering Provider: DEIRDRE WILD Report Released Date/Time: Aug 12, 2024 12:26 PM Reporting Lab: [address] [address] Performing Lab: [address] [address] GLUCOSE,BLOOD-poct (STL) 139 mg/dL H 72-99 Aug 12, 2024 07:35 AM [facility] CBC BLOOD Specimen Type: BLOOD Comment: prev diff 08/11/24. Ordering Provider: GILSON OG Report Released Date/Time: Aug 10, 2024 04:01 PM Reporting Lab: [address] [address] Performing Lab: [address] [address] WBC 3.0 10*3/uL L 3.6-11.2 RBC 2.54 [...] 20 Aug 12, 2024 05:49 AM [facility] GLUCOSE,BLOOD-poct (STL) BLOOD Specimen Type: BLOOD Comment: Test Performed by: [id number] Meter #: [id number] Ordering Provider: DEIRDRE WILD Report Released Date/Time: Aug 12, 2024 05:50 AM Reporting Lab: [address] [address] Performing Lab: [address] [address] GLUCOSE,BLOOD-poct (STL) 112 mg/dL H 72-99 Aug 12, 2024 01:45 AM [facility] CBC BLOOD Specimen Type: BLOOD Comment: SEE PREVIOUS DIFFERENTIAL ON 08/12/24 @ 0239 [facility] Ordering Provider: GILSON OG Report Released Date/Time: Aug 10, 2024 04:01 PM Reporting Lab: [address] [address] Performing Lab: [address] [address] WBC 2.6 10*3/uL L 3.6-11.2 RBC 2.42 [...] 6.4 1.0-7.0 Aug 11, 2024 09:25 PM [facility] CBC BLOOD Specimen Type: BLOOD No comment entered. Ordering Provider: GILSON OG Report Released Date/Time: Aug 10, 2024 04:01 PM Reporting Lab: [address] [address] Performing Lab: [facility] [address] [facility] [address] WBC 3.6 10*3/uL 3.6-11.2 RBC 2.54 10*6/uL [...] 2.10-8.00 Aug 11, 2024 09:17 PM [facility] GLUCOSE,BLOOD-poct (STL) BLOOD Specimen Type: BLOOD Comment: Test Performed by: [id number] Meter #: [id number] Ordering Provider: DEIRDRE WILD Report Released Date/Time: Aug 11, 2024 09:21 PM Reporting Lab: [place] [address] [address] [facility] [address] Performing Lab: [place] [address] [address] [facility] [address] GLUCOSE,BLOOD-poct (STL) 167 mg/dL H 72-99 Aug 11, 2024 04:42 PM [facility] CBC BLOOD Specimen Type: BLOOD No comment entered. Ordering Provider: YVONNE HARRISON Report Released Date/Time: Aug 11, 2024 04:41 PM Reporting Lab: [address] [address] Performing Lab: [address] [address] WBC 4.0 10*3/uL 3.6-11.2 RBC 2.74 10*6/uL [...] 2.10-8.00 Aug 11, 2024 04:30 PM [facility] GLUCOSE,BLOOD-poct (STL) BLOOD Specimen Type: BLOOD Comment: Test Performed by: [id number] Meter #: [id number] Ordering Provider: DEIRDRE WLID Report Released Date/Time: Aug 11, 2024 06:06 PM Reporting Lab: [address] [address] Performing Lab: [address] [address] GLUCOSE,BLOOD-poct (STL) 95 mg/dL 72-99 Aug 11, 2024 11:08 AM [facility] GLUCOSE,BLOOD-poct (STL) BLOOD Specimen Type: BLOOD Comment: Test Performed by: [id number] Meter #: [id number] Ordering Provider: DEIRDRE WILD Report Released Date/Time: Aug 11, 2024 11:10 AM Reporting Lab: [place] [address] [facility] [address] Performing Lab: [address] [address] GLUCOSE,BLOOD-poct (STL) 117 mg/dL H 72-99 Aug 11, 2024 06:00 AM [facility] IRON/TIBC PROFILE SERUM Specimen Type: SERUM No comment entered. Ordering Provider: GILSON OG Report Released Date/Time: Aug 10, 2024 04:02 PM Reporting Lab: [address] [address] Performing Lab: [place] [address] [facility] [address] TIBC 263 ug/dL 250-450 TRANSFERRIN 210 mg/dL 163-344 IRON SATURATION 8 L 20-50 IRON 21 ug/dL L 65-175 Aug 11, 2024 06:00 AM [facility] APTT PLASMA Specimen Type: PLASM A No comment entered. Ordering Provider: GILSON OG Report Released Date/Time: Aug 10, 2024 06:20 PM Reporting Lab: [address] [address] Performing Lab: [address] [address] APTT 25.5 s L 26.7-39.9 Aug 11, 2024 06:00 AM [facility] HEPATIC FUNTION PANEL (STL) PLASMA Specimen Ty pe: PLASMA No comment entered. Ordering Provider: IGLSON OG Report Released Date/Time: Aug 10, 2024 04:02 PM Reporting Lab: [address] [address] Performing Lab: [address] [address] PROTEIN 5.4 g/dL L 6-8.6 ALBUMIN 2.6 g/dL L 3.4-5 TOTAL BILIRUBIN 0.8 mg/dL 0.2-1.2 ALKALINE PHOSPHATASE 72 U/L 40-150 AST/SGOT 28 U/L 5-34 ALT/SGPT 10 U/L 8-40 CONJ. BILIRUBIN 0.4 mg/dL 0-0.5 Aug 11, 2024 06:00 AM [facility] PT/INR NEW (STL-MA) PLASMA Specimen Type: PLAS MA No comment entered. Ordering Provider: GILSON OG Report Released Date/Time: Aug 10, 2024 06:20 PM Reporting Lab: [address] [address] Performing Lab: [address] [address] PROTIME 15.5 s H 9.4-12.5 INR VALUE 1.4 {INR} Aug 11, 2024 06:00 AM [facility] CBC BLOOD Specimen Type: BLOOD No comment entered. Ordering Provider: GILSON OG Report Released Date/Time: Aug 10, 2024 04:01 PM Reporting Lab: [address] [address] Performing Lab: [address] [address] WBC 2.4 10*3/uL L 3.6-11.2 RBC 2.42 [...] 2.10-8.00 Aug 10, 2024 09:00 PM [facility] BASIC METABOLIC PANEL PLASMA Specimen Type: PL ASMA Comment: No hemolysis noted. Ordering Provider: GILSON OG Report Released Date/Time: Aug 10, 2024 04:01 PM Reporting Lab: [address] [address] Performing Lab: [address] [address] CREATININE 0.84 mg/dL 0.7-1.3 UREA NITROGEN 16.8 mg/dL 9.0-25.0 GLUCOSE 104 mg/dL H 72-99 SODIUM 133 meq/L L 136-145 POTASSIUM 3.5 meq/L 3.5-5 CHLORIDE 103 meq/L 98-107 CARBON DIOXIDE 23 meq/L 22-31 CALCIUM 8.4 mg/dL 8.4-10.4 EGFR (CKD-EPI 2020) 95.6 >60 Aug 10, 2024 09:00 PM [facility] CBC BLOOD Specimen Type: BLOOD No comment entered. Ordering Provider: GILSON OG Report Released Date/Time: Aug 10, 2024 04:01 PM Reporting Lab: [address] [address] Performing Lab: [address] [address] WBC 4.3 10*3/uL 3.6-11.2 RBC 2.22 10*6/uL [...] 2.10-8.00 Aug 10, 2024 06:30 PM [facility] MRSA SURVL NARES DNA NARES Specimen Type: [...] 2024 04:01 PM Reporting Lab: [place] [id number] [facility] [address] Performing Lab: [address] [address] MRSA SURVL NARES DNA Negative Negative Aug 10, 2024 06:02 PM [facility] GLUCOSE,BLOOD-poct (L) BLOOD Specimen Type: BLOOD Comment: Test Performed by: [id number] Meter #: [id number] Ordering Provider: YASIR SANZ MD Report Released Date/Time: Aug 10, 2024 06:04 PM Reporting Lab: [place] [address] [facility] [address] Performing Lab: [place] [address] [place] [address] GLUCOSE,BLOOD-poct (L) 94 mg/dL 72-99 Aug 10, 2024 02:12 PM [facility] APTT PLASMA Specimen Type: PLASM A No comment entered. Ordering Provider: YASIR SANZ MD Report Released Date/Time: Aug 10, 2024 02:00 PM Reporting Lab: [place] [address] [place] [id number] Performing Lab: [place] [address] [place] [address] APTT 20.1 s L 26.7-39.9 Aug 10, 2024 02:12 PM [facility] PT/INR NEW (L-MA) PLASMA Specimen Type: PLAS MA No comment entered. Ordering Provider: YASIR SANZ MD Report Released Date/Time: Aug 10, 2024 02:00 PM Reporting Lab: [place] [address] [place] [address] Performing Lab: [place] [address] [place] [address] PROTIME 13.8 s H 9.4-12.5 INR VALUE 1.2 {INR} Aug 10, 2024 11:30 AM [facility] [facility] TSH W/ REFLEX FT4 (L) PLASMA Specimen Type: PLASMA No comment entered. Ordering Provider: TONY SIMMONS Report Released Date/Time: Aug 02, 2024 12:33 PM Reporting Lab: [place] [address] Performing Lab: [place] [address] [facility] [place] [address] TSH 3.991 u[IU]/mL 0.47-5 Aug 10, 2024 11:30 AM [facility] COMPREHENSIVE METABOLIC PANEL PLASMA Specimen Type: PLASMA Comment: No hemolysis noted. Ordering Provider: TONY SIMMONS Report Released Date/Time: Aug 02, 2024 12:33 PM Reporting Lab: [address] [address] Performing Lab: [address] [address] CREATININE 0.82 mg/dL 0.7-1.3 UREA NITROGEN 21.7 [...] 96.3 >60 Aug 10, 2024 11:30 AM [facility] CBC BLOOD Specimen Type: BLOOD No comment entered. Ordering Provider: TONY SIMMONS Report Released Date/Time: Aug 02, 2024 12:33 PM Reporting Lab: [address] [address] Performing Lab: [address] [address] WBC 7.4 10*3/uL 3.6-11.2 RBC 2.81 10*6/uL [...] 0.00-0. 20 Aug 02, 2024 11:53 AM [facility] PROTEIN ELECTROPHORESIS BLOOD SERUM Specimen Type: SERUM Comment: Reference Range: None Detected NOTE: THIS RESULT IS FLAGGED ABNORMAL Evaluation reveals a restricted band (M-spike) migrating in the gamma globulin region. If not already requested, Immunofixation should be considered. Test [facility], [facility], [address] [place] [address] Tristin Iyer M.D., Ph.D., Director of Laboratories , CLIA [id number] PREVIOUS SUGAR: IgG [place] Ordering Provider: TONY SIMMONS Report Released Date/Time: Jul 13, 2024 01:49 PM Reporting Lab: [facility] [address] [place] [address] Performing Lab: [address] ALPHA-1 GLOBULIN(SO-PB-STL) 0.4 g/dL H 0.2 [...] H Aug 02, 2024 11:53 AM [facility] IGA (STL) PLASMA Specimen Type: PLASM A Comment: No hemolysis noted. Ordering Provider: TONY SIMMONS Report Released Date/Time: Jul 13, 2024 01:49 PM Reporting Lab: [address] [address] Performing Lab: [address] [address] IGA (STL) 113 mg/dL 63-484 Aug 02, 2024 11:53 AM [facility] IGG (STL) PLASMA Specimen Type: PLASM A Comment: No hemolysis noted. Ordering Provider: TONY SIMMONS Report Released Date/Time: Jul 13, 2024 01:49 PM Reporting Lab: [address] [address] Performing Lab: [address] [address] IGG (STL) 1898 mg/dL H 540-1822 Aug 02, 2024 11:53 AM [facility] IGM (STL) PLASMA Specimen Type: PLASM A Comment: No hemolysis noted. Ordering Provider: TONY SIMMONS Report Released Date/Time: Jul 13, 2024 01:49 PM Reporting Lab: [address] [address] Performing Lab: [address] [address] IGM (STL) 104 mg/dL 22-240 Aug 02, 2024 11:53 AM [facility] TSH W/ REFLEX FT4 (STL) PLASMA Specimen Type: PLASMA No comment entered. Ordering Provider: TONY SIMMONS Report Released Date/Time: Jul 13, 2024 01:49 PM Reporting Lab: [address] [address] Performing Lab: [address] [address] TSH 2.182 u[IU]/mL 0.47-5 Aug 02, 2024 11:53 AM [facility] KAPPA/LAMBDA FREE LC PANEL (STL-PB) SERUM Spe cimen Type: SERUM No comment entered. Ordering Provider: TONY SIMMONS Report Released Date/Time: Jul 13, 2024 01:49 PM Reporting Lab: [address] [address] Performing Lab: [address] [address] KAPPA FREE LC (STL) 102.7 mg/L H 2.4-20.7 LAMBDA FREE LC (STL) 32.2 mg/L H 4.2-27.7 KAPPA/LAMBDA RATIO (STL) 3.19 H 0.22-1. 74 Aug 02, 2024 11:53 AM [facility] COMPREHENSIVE METABOLIC PANEL PLASMA Specimen Type: PLASMA Comment: No hemolysis noted. Ordering Provider: TONY SIMMONS Report Released Date/Time: Jul 13, 2024 01:49 PM Reporting Lab: [address] [address] Performing Lab: [address] [address] CREATININE 0.82 mg/dL 0.7-1.3 UREA NITROGEN 12.2 [...] 96.3 >60 Aug 02, 2024 11:53 AM [facility] CBC BLOOD Specimen Type: BLOOD Comment: No Clots in specimen Ordering Provider: TONY SIMMONS Report Released Date/Time: Jul 13, 2024 01:49 PM Reporting Lab: [facility] [address] [facility] [address] Performing Lab: [address] [address] WBC 2.2 10*3/uL L 3.6-11.2 RBC 3.44 [...] 2.10-8.00 Aug 01, 2024 10:10 AM [facility] GLUCOSE,BLOOD-poct (STL) BLOOD Specimen Type: BLOOD Comment: Test Performed by: [id number] Meter #: [id number] Ordering Provider: SUKHJINDER CHAHAL Report Released Date/Time: Aug 01, 2024 10:17 AM Reporting Lab: [address] [address] Performing Lab: [address] [address] GLUCOSE,BLOOD-poct (STL) 101 mg/dL H 72-99 Jul 27, 2024 01:54 PM [facility] BRAIN NATRIURETIC PEPTIDE PLASMA Specimen Type : PLASMA No comment entered. Ordering Provider: ELIZABETH COATES Report Released Date/Time: Jul 27, 2024 03:39 PM Reporting Lab: [address] [address] Performing Lab: [address] [address] BRAIN NATRIURETIC PEPTIDE 257.2 pg/mL H 0- 100 Jul 27, 2024 01:54 PM [facility] TROPONIN I PLASMA Specimen Type: PLASM A Comment: No hemolysis noted. Ordering Provider: ELIZABETH COATES Report Released Date/Time: Jul 27, 2024 03:39 PM Reporting Lab: [address] [address] Performing Lab: [address] [address] TROPONIN I 0.011 ng/mL 0-0.033 Jul 27, 2024 01:54 PM [facility] COMPREHENSIVE METABOLIC PANEL PLASMA Specimen Type: PLASMA Comment: No hemolysis noted. Ordering Provider: ELIZABETH COATES Report Released Date/Time: Jul 27, 2024 03:39 PM Reporting Lab: [address] [address] Performing Lab: [address] [address] CREATININE 0.70 mg/dL 0.7-1.3 UREA NITROGEN 7.4 [...] 101.0 >60 Jul 27, 2024 01:54 PM [facility] CBC BLOOD Specimen Type: BLOOD No comment entered. Ordering Provider: ELIZABETH COATES Report Released Date/Time: Jul 27, 2024 03:39 PM Reporting Lab: [address] [address] Performing Lab: [address] [address] WBC 3.2 10*3/uL L 3.6-11.2 RBC 3.12 [...] 2.10-8.00 Jul 21, 2024 02:00 PM [facility] FOLATE (L-MA) SERUM Specimen Type: SERUM No comment entered. Ordering Provider: JORJE DENSON Report Released Date/Time: Jul 21, 2024 12:54 PM Reporting Lab: [address] [address] Performing Lab: [address] [address] FOLATE (L-OH) 9.1 ng/mL 7-20 Jul 21, 2024 02:00 PM [facility] B12 SERUM Specimen Type: SERUM No comment entered. Ordering Provider: JORJE DENSON Report Released Date/Time: Jul 21, 2024 12:54 PM Reporting Lab: [address] [address] Performing Lab: [address] [address] B12 1584 pg/mL H 213-816 Jul 21, 2024 02:00 PM [facility] IRON/TIBC PROFILE SERUM Specimen Type: SERUM No comment entered. Ordering Provider: JORJE DENSON Report Released Date/Time: Jul 21, 2024 12:54 PM Reporting Lab: [place] [address] [facility] [address] Performing Lab: [address] [address] TIBC 243 ug/dL L 250-450 TRANSFERRIN 194 mg/dL 163-344 IRON SATURATION 20 20-50 IRON 49 ug/dL L 65-175 Jul 21, 2024 02:00 PM [facility] CBC BLOOD Specimen Type: BLOOD Comment: Manual differential performed 07/20/2024 No clots Ordering Provider: JORJE DENSON Report Released Date/Time: Jul 21, 2024 12:54 PM Reporting Lab: [address] [address] Performing Lab: [address] [address] WBC 5.6 10*3/uL 3.6-11.2 RBC 2.87 10*6/uL [...] 1.0-7.0 Jul 20, 2024 08:55 PM [facility] PT/INR NEW (STL-MA) PLASMA Specimen Type: PLAS MA No comment entered. Ordering Provider: AURA ZACARIAS Report Released Date/Time: Jul 18, 2024 01:30 PM Reporting Lab: [address] [address] Performing Lab: [address] [address] PROTIME 12.8 s H 9.4-12.5 INR VALUE 1.1 {INR} Jul 20, 2024 08:55 PM [facility] BASIC METABOLIC PANEL PLASMA Specimen Type: PL ASMA Comment: No hemolysis noted. Ordering Provider: AURA ZACARIAS Report Released Date/Time: Jul 18, 2024 01:30 PM Reporting Lab: [address] [address] Performing Lab: [address] [address] CREATININE 0.74 mg/dL 0.7-1.3 UREA NITROGEN 15.1 mg/dL 9.0-25.0 GLUCOSE 121 mg/dL H 72-99 SODIUM 130 meq/L L 136-145 POTASSIUM 3.7 meq/L 3.5-5 CHLORIDE 100 meq/L 98-107 CARBON DIOXIDE 20 meq/L L 22-31 CALCIUM 8.5 mg/dL 8.4-10.4 EGFR (CKD-EPI 2020) 99.3 >60 Jul 20, 2024 08:55 PM [facility] CBC BLOOD Specimen Type: BLOOD No comment entered. Ordering Provider: UARA ZACARIAS Report Released Date/Time: Jul 18, 2024 01:30 PM Reporting Lab: [address] [address] Performing Lab: [address] [address] WBC 5.1 10*3/uL 3.6-11.2 RBC 2.90 10*6/uL [...] Jul 18, 2024 01:30 PM Reporting Lab: [facility] [address] [facility] [place] [address] Performing Lab: [address] [address] WBC 5.6 10*3/uL 3.6-11.2 RBC 3.11 10*6/uL [...] 2.10-8.00 Jul 19, 2024 06:42 AM [facility] PT/INR NEW (STL-MA) PLASMA Specimen Type: PLAS MA No comment entered. Ordering Provider: AURA ZACARIAS Report Released Date/Time: Jul 18, 2024 01:30 PM Reporting Lab: [address] [address] Performing Lab: [address] [address] PROTIME 16.4 s H 9.4-12.5 INR VALUE 1.5 {INR} Jul 19, 2024 06:42 AM [facility] BASIC METABOLIC PANEL PLASMA Specimen Type: PL ASMA Comment: No hemolysis noted. Ordering Provider: AURA ZACARIAS Report Released Date/Time: Jul 18, 2024 01:30 PM Reporting Lab: [address] [address] Performing Lab: [address] [address] CREATININE 0.94 mg/dL 0.7-1.3 UREA NITROGEN 23.8 mg/dL 9.0-25.0 GLUCOSE 87 mg/dL 72-99 SODIUM 129 meq/L L 136-145 POTASSIUM 3.4 meq/L L 3.5-5 CHLORIDE 102 meq/L 98-107 CARBON DIOXIDE 20 meq/L L 22-31 CALCIUM 8.1 mg/dL L 8.4-10.4 EGFR (CKD-EPI 2020) 88.9 >60 Jul 19, 2024 06:42 AM [facility] CBC BLOOD Specimen Type: BLOOD No comment entered. Ordering Provider: AURA ZACARIAS Report Released Date/Time: Jul 18, 2024 01:30 PM Reporting Lab: [address] [address] Performing Lab: [address] [address] WBC 5.1 10*3/uL 3.6-11.2 RBC 2.45 10*6/uL [...] H 1.0-7.0 Jul 18, 2024 08:51 PM [facility] CBC BLOOD Specimen Type: BLOOD No comment entered. Ordering Provider: AURA ZACARIAS Report Released Date/Time: Jul 18, 2024 01:30 PM Reporting Lab: [address] [address] Performing Lab: [address] [address] WBC 6.2 10*3/uL 3.6-11.2 RBC 2.44 10*6/uL [...] 10*3/uL 2.10-8.00 Jul 18, 2024 04:19 PM [facility] CBC BLOOD Specimen Type: BLOOD No comment entered. Ordering Provider: AURA ZACARIAS Report Released Date/Time: Jul 18, 2024 01:30 PM Reporting Lab: [address] [address] Performing Lab: [address] [address] WBC 6.1 10*3/uL 3.6-11.2 RBC 2.57 10*6/uL [...] 2.10-8.00 Jul 18, 2024 06:32 AM [facility] LACTIC ACID (STL-PB) PLASMA Specimen Type: NEIL SMA No comment entered. Ordering Provider: CAMDEN PATTON Report Released Date/Time: Jul 17, 2024 07:38 PM Reporting Lab: [address] [address] Performing Lab: [place] [address] [place] [phone] LACTIC ACID (L-PB) 1.3 mmol/L 0.5-2.0 Jul 18, 2024 06:32 AM [facility] PT/INR NEW (L-MA) PLASMA Specimen Type: PLAS MA No comment entered. Ordering Provider: CAMDEN PATTON Report Released Date/Time: Jul 17, 2024 07:38 PM Reporting Lab: [place] [address] Performing Lab: [place] [address] PROTIME 19.1 s H 9.4-12.5 INR VALUE 1.7 {INR} Jul 18, 2024 06:32 AM [facility] CBC BLOOD Specimen Type: BLOOD Comment: HGB Called to : Dr. Posadas [facility] at: [id number] on: 07/18/24 by: [id number] Critical Verbal Readback Performed Ordering Provider: CAMDEN PATTON Report Released Date/Time: Jul 17, 2024 07:38 PM Reporting Lab: [address] [address] Performing Lab: [place] [phone] WBC 7.0 10*3/uL 3.6-11.2 RBC 2.04 10*6/uL [...] 2.10-8.00 Jul 18, 2024 06:32 AM [facility] MAGNESIUM PLASMA Specimen Type: PLASM A Comment: No hemolysis noted. Ordering Provider: CAMDEN PATTON Report Released Date/Time: Jul 17, 2024 07:38 PM Reporting Lab: [place] [address] Performing Lab: [place] [address] MAGNESIUM 1.5 mg/dL L 1.6-2.6 Jul 18, 2024 06:32 AM [facility] VANCOMYCIN (STL) PLASMA Specimen Type: PLASM A No comment entered. Ordering Provider: CAMDEN PATTON Report Released Date/Time: Jul 17, 2024 07:38 PM Reporting Lab: [address] Performing Lab: [address] [address] VANCOMYCIN (STL) 5.0 ug/mL L 10-15 Jul 18, 2024 06:32 AM [facility] PHOSPHOROUS PLASMA Specimen Type: PLASM A Comment: No hemolysis noted. Ordering Provider: CAMDEN PATTON Report Released Date/Time: Jul 17, 2024 07:38 PM Reporting Lab: [address] [address] Performing Lab: [place] [address] PHOSPHOROUS 2.2 mg/dL L 2.3-4.7 Jul 18, 2024 06:32 AM [facility] COMPREHENSIVE METABOLIC PANEL PLASMA Specimen Type: PLASMA Comment: No hemolysis noted. Ordering Provider: CAMDEN PATTON Report Released Date/Time: Jul 17, 2024 07:38 PM Reporting Lab: [address] [address] Performing Lab: [address] [address] CREATININE 1.08 mg/dL 0.7-1.3 UREA NITROGEN 40.5 [...] >60 Jul 18, 2024 12:05 AM [facility] HGB,HCT,PLT BLOOD Specimen Type: BLOOD No comment entered. Ordering Provider: ROSA VARGAS Report Released Date/Time: Jul 17, 2024 09:07 PM Reporting Lab: [address] [address] Performing Lab: [address] [address] HGB 7.3 g/dL L 13.1-16.8 HCT 21.0 L 38.2-48.4 PLT 64 10*3/uL L 150-400 Jul 17, 2024 07:45 PM [facility] MRSA SURVL NARES DNA NARES Specimen Type: [...] Jul 17, 2024 07:38 PM Reporting Lab: [address] [address] Performing Lab: [address] [address] MRSA SURVL NARES DNA Negative Negative Jul 17, 2024 07:36 PM [facility] GLUCOSE,BLOOD-poct ([facility]) BLOOD Specimen Type: BLOOD Comment: Test Performed by: [id number] Meter #: [id number] Ordering Provider: CAMDEN PATTON Report Released Date/Time: Jul 17, 2024 07:48 PM Reporting Lab: [address] [address] Performing Lab: [address] [address] GLUCOSE,BLOOD-poct (L) 98 mg/dL 72-99 Jul 17, 2024 07:35 PM [facility] BLOOD GAS PANEL ABG ([facility]) VENOUS BLOOD Specimen Type : VENOUS BLOOD Comment: normalcy status - Below absolute low-off instrument scale Test Performed by: [id number] Meter #: [id number] Ordering Provider: CAMDEN PATTON Report Released Date/Time: Jul 17, 2024 07:37 PM Reporting Lab: [address] [address] Performing Lab: [address] [address] GEM PH 7.39 7.31-7.41 GEM PCO2 31 [...] 37.0 Jul 17, 2024 07:10 PM [facility] URINALYSIS W/ CX REFLEX (STL-PB) URINE Specim en Type: URINE No comment entered. Ordering Provider: CASEY BOONE Report Released Date/Time: Jul 17, 2024 04:24 PM Reporting Lab: [address] [address] Performing Lab: [address] [address] URINE COLOR Light-Yellow Yellow U.BILIRUBIN Negative mg/dL Negative U.PH 6.0 5.0-8.0 APPEARANCE Clear Clear U.NITRITE Negative mg/dL Negative URN.GLUCOSE Normal mg/dL Negative URN.PROTEIN Negative mg/dL URN.UROBILINOGEN Normal mg/dL Normal URN.BLOOD Negative mg/dL Negative-Trace URN.KETONES Trace mg/dL Negative-Trace URN.LEUK.EST. Negative mg/dL Negative-Tr april URN.SPECIFIC GRAVITY 1.029 Jul 17, 2024 06:25 PM [facility] RETICULOCYTE PANEL BLOOD Specimen Type: BLOOD No comment entered. Ordering Provider: CASEY BOONE Report Released Date/Time: Jul 17, 2024 06:13 PM Reporting Lab: [address] [address] Performing Lab: [address] [address] RETIC RATIO 7.35 H 0.50-2.30 IRF 39.7 H 2.3-13.4 RETICULOCYTE HEMOGLOBIN EQUIVALENT 35.8 pg 28.2-36.6 RETIC COUNT,ABS 0.129 10*6/uL H 0.022-0.10 1 Jul 17, 2024 06:25 PM [facility] HAPTOGLOBIN (STL) PLASMA Specimen Type: PLASM A No comment entered. Ordering Provider: CASEY BOONE Report Released Date/Time: Jul 17, 2024 06:13 PM Reporting Lab: [place] [phone] Performing Lab: [address] [address] HAPTOGLOBIN (STL) 93 mg/dL 44-215 Jul 17, 2024 06:25 PM [facility] LDH PLASMA Specimen Type: PLASM A No comment entered. Ordering Provider: CASEY BOONE Report Released Date/Time: Jul 17, 2024 06:13 PM Reporting Lab: [address] [address] Performing Lab: [address] [address] LDH 305 U/L H 125-243 Jul 17, 2024 06:25 PM [facility] CBC BLOOD Specimen Type: BLOOD Comment: HGB Called to : Watson White at: [id number] on:[id number] by: [facility] Critical Verbal Readback Performed Ordering Provider: CAMDEN PATTON Report Released Date/Time: Jul 17, 2024 07:09 PM Reporting Lab: [address] [address] Performing Lab: [address] [address] WBC 27.6 10*3/uL H 3.6-11.2 RBC 1.76 [...] 2.10-8.00 Jul 17, 2024 04:59 PM [facility] BLOOD GAS PANEL ABG ([facility]) VENOUS BLOOD Specimen Type : VENOUS BLOOD Comment: Test Performed by: [id number] Meter #: [id number] Ordering Provider: CASEY BOONE Report Released Date/Time: Jul 17, 2024 05:00 PM Reporting Lab: [address] [address] Performing Lab: [address] [address] GEM PH 7.39 7.31-7.41 GEM PCO2 33 [...] 37.0 Jul 17, 2024 04:25 PM [facility] MAGNESIUM PLASMA Specimen Type: PLASM A Comment: No hemolysis noted. Ordering Provider: CASEY BOONE Report Released Date/Time: Jul 17, 2024 04:24 PM Reporting Lab: [address] [address] Performing Lab: [address] [address] MAGNESIUM 1.4 mg/dL L 1.6-2.6 Jul 17, 2024 04:25 PM [facility] PT/INR NEW (STL-MA) PLASMA Specimen Type: PLAS MA No comment entered. Ordering Provider: CASEY BOONE Report Released Date/Time: Jul 17, 2024 04:24 PM Reporting Lab: [address] [address] Performing Lab: [address] [address] PROTIME 25.3 s H 9.4-12.5 INR VALUE 2.3 {INR} Jul 17, 2024 04:25 PM [facility] COVID-19 DIAGNOSTIC (FLU/RSV)(STL) NASOPHARYNX Spec imen Type: [...] Jul 17, 2024 04:24 PM Reporting Lab: [place] [address] [facility] [address] Performing Lab: [address] [address] INFLUENZA A Negative Negative INFLUENZA B Negative Negative COVID-19 (STL-PB) Not Detected Not Detec nate RSV (Cepheid) NEGATIVE Negative Jul 17, 2024 04:25 PM [facility] COMPREHENSIVE METABOLIC PANEL PLASMA Specimen Type: PLASMA Comment: No hemolysis noted. Ordering Provider: CASEY BOONE Report Released Date/Time: Jul 17, 2024 04:24 PM Reporting Lab: [address] [address] Performing Lab: [address] [address] CREATININE 1.25 mg/dL 0.7-1.3 UREA NITROGEN 47.0 [...] 63.1 >60 Jul 17, 2024 04:25 PM [facility] CBC BLOOD Specimen Type: BLOOD No comment entered. Ordering Provider: CASEY BOONE Report Released Date/Time: Jul 17, 2024 04:24 PM Reporting Lab: [facility] [address] [place] [address] Performing Lab: [address] [address] WBC 42.4 10*3/uL H 3.6-11.2 RBC 2.20 [...] 2.10-8.00 Jul 13, 2024 12:39 PM [facility] PHOSPHOROUS PLASMA Specimen Type: PLASM A Comment: No hemolysis noted. Ordering Provider: TONY SIMMONS Report Released Date/Time: Jun 07, 2024 01:01 PM Reporting Lab: [facility] [address] [facility] [address] Performing Lab: [facility] [address] [facility] [address] PHOSPHOROUS 2.4 mg/dL 2.3-4.7 Jul 13, 2024 12:39 PM [facility] TSH W/ REFLEX FT4 (STL) PLASMA Specimen Type: PLASMA No comment entered. Ordering Provider: TONY SIMMONS Report Released Date/Time: Jun 07, 2024 01:01 PM Reporting Lab: [place] [address] [facility] [address] Performing Lab: [facility] [address] [facility] [place] [address] TSH 1.431 u[IU]/mL 0.47-5 Jul 13, 2024 12:39 PM [facility] MAGNESIUM PLASMA Specimen Type: PLASM A Comment: No hemolysis noted. Ordering Provider: TONY SIMMONS Report Released Date/Time: Jun 07, 2024 01:01 PM Reporting Lab: [address] [address] Performing Lab: [address] [address] MAGNESIUM 2.0 mg/dL 1.6-2.6 Jul 13, 2024 12:39 PM [facility] COMPREHENSIVE METABOLIC PANEL PLASMA Specimen Type: PLASMA Comment: No hemolysis noted. Ordering Provider: TONY SIMMONS Report Released Date/Time: Jun 07, 2024 01:01 PM Reporting Lab: [address] [address] Performing Lab: [address] [address] CREATININE 0.75 mg/dL 0.7-1.3 UREA NITROGEN 21.3 [...] 98.9 >60 Jul 13, 2024 12:39 PM [facility] CBC BLOOD Specimen Type: BLOOD Comment: no clot Ordering Provider: TONY SIMMONS Report Released Date/Time: Jun 07, 2024 01:01 PM Reporting Lab: [facility] [address] [facility] [address] Performing Lab: [address] [address] WBC 3.0 10*3/uL L 3.6-11.2 RBC 3.83 [...] Jul 13, 2024 12:38 PM [facility] ALPHA-FETOPROTEIN(STL-PB) SERUM Specimen Type : SERUM No comment entered. Ordering Provider: CRYSTAL MASSEY Report Released Date/Time: Jul 04, 2024 03:26 PM Reporting Lab: [place] [address] [facility] [id number] Performing Lab: [address] [id number] ALPHA-FETOPROTEIN(STL-PB) 16.86 ng/mL H 1- 8.78 Jul 13, 2024 12:37 PM [facility] CARBOHYDRATE Ag SERUM Specimen Type: SERUM Comment: REFERENCE RANGE: <34 U/mL This test was performed using the Siemens chemiluminescent method. Values obtained from different assay methods cannot be used inter- changeably. CA 19-9 levels, regardless of value, should not be interpreted as absolute evidence of the presence or absence of disease. Test Performed by TIDAL PETROLEUMDarin, [facility], [id number] [place] [address] Tristin Iyer M.D., Ph.D., Director of Laboratories , [facility] [id number] Ordering Provider: CRYSTAL MASSEY Report Released Date/Time: Jul 04, 2024 03:28 PM Reporting Lab: [facility] [address] [facility] [address] Performing Lab: [facility] [address] [facility] CARBOHYDRATE Ag 61 H SEE BELOW Vital Signs: All taken on the encounter date This section contains inpatient and outpatient Vital Signs collected on the date of the Encounter. Date/Time Temperature Pulse Blood Pressure Respiratory Rate SP02 Pain Height Weight Body Mass Index Source Jul 19, 2024 10:08 AM 3 [facility] Social History: Smoking Status (Most current) and Tobacco Use (All prior to encounter date) This section includes the most current, and the historical, smoking and tobacco- related health factors from the [place] facility where the Encounter took place. Current Smoking Status This section includes the most current smoking, or tobacco-related health factor, from the [place] facility where the Encounter took place. Date/Time Current Smoking Status Comment Kaz ity Jul 17, 2024 04:02 PM [facility] ADMIT TOBACCO SCREEN NO [facility] Tobacco Use History This section includes a history of the smoking, or tobacco-related health factors, that were collected on or before the date of the Encounter. The data comes from the [place] facility where the Encounter took place. Date/Time Smoking Status/Tobacco Use Comment F acility Jan 20, 2023 03:49 PM VA-TOBACCO FORMER USER [facility] Jan 20, 2023 03:49 PM VA-TOBACCO QUIT 15 YRS OR MORE [facility] Feb 06, 2021 04:28 PM VA-TOBACCO FORMER USER [facility] Feb 06, 2021 04:28 PM VA-TOBACCO QUIT 15 YRS OR MORE [facility] Radiology Reports: +/- 30 days of [...] the Encounter. The data comes from all [place] treatment facilities. Date/Time Radiology Report Provider Source Aug 10, 2024 02:[address] ABD PEL W/CONT & 3D: ABRAHAM HAWK [id number] -1955 M Exm Date: AUG 10, 2024@14:33 Req Phys: YASIR SANZ MD Pat Loc: [facility]-EMERGENCY DEPT 2ND SHIFT (R Img Loc: [facility]-CT IMAGING Service: [facility], [facility] [address] [place] [address] (Case [id number] COMPLETE) CT ABDOMEN AND PELVIS W/CONTRAST (CT Detailed) CPT:27997 Contrast Media : Non-ionic Iodinated Reason for Study: Abdominal pain, vomiting Clinical History: Responsible Attending: Svetlana Attending Contact Number: [phone] Resident Contact Number: Abdominal pain, vomiting Allergies listed in CPRS chart: Patient has answered NKA Creatinine:CREATININE 0.82 mg/dL 08/10/2024 11:30 /eGFR: STL EGFR (within one year). CREATININE 0.82 mg/dL (08/10/24 11:30) Wt: 152.1 lb [68.99 kg] (08/10/2024 11:31) History of: Renal failure, chronic or acute renal disease: NO Report Status: Verified Date Reported: AUG 10, 2024 Date Verified: AUG 10, 2024 Filter Tender Jelly E-Sig:/ES/PETROS MCCORD Report: Case [id number]. CT ABDOMEN AND PELVIS W/CONTRAST. Gastrointestinal contrast: [...] hernias. Dictated by Kenneth Albright DO (radiology interventional physician). I, Petros Mccord, have reviewed the images and report and concur with these findings. Primary Interpreting Staff: PETROS MCCORD MD (Filter Tender Jelly) Primary Interpreting Resident: KENNETH ALBRIGHT, Esthetician Permanent Makeup Artist /PETROS RESEE [facility] Aug 01, 2024 10:20 AM PET/CT TUMOR IMAGING (SKULL TO MID-THIGH)-P: ABRAHAM HAWK [id number] -1955 M Exm Date: AUG 01, 2024@10:20 Req Phys: TONY SIMMONS Loc: [facility]-ONCOLOGY IRIS (Req'g Loc) Img Loc: [facility]-PET-CT Service: [address] [address] (Case [id number] COMPLETE) PET/CT TUMOR SKULL BASE TO MID-T(NM Detailed) CPT:15972 CPT Modifiers : PS PET TUMOR SUBSQ TX STRATEGY Reason for Study: Nasopharyngeal cancer (Case [id number] COMPLETE) F-18 FLUORODEOXYGLUCOSE (FDG),PER(NM Detailed) CPT:A9552 Clinical History: Report Status: Verified Date Reported: AUG 01, 2024 Date Verified: AUG 01, 2024 Filter Tender Jelly E-Sig:/ES/NATASHA LEIJA Report: PATIENT NAME: ABRAHAM HAWK. CASE #: [id number], [id number]. PROCEDURE: PET/CT study Indication: Nasopharyngeal cancer HISTORY: [...] lytic osseous lesion is noted within the pzgvg-nw-hysu. Impression: 1. The previous sites of FDG [...] NEEDED Primary Interpreting Staff: NATASHA LEIJA MD (Filter Tender Jelly) /PFT NATASHA LEIJA [facility] Jul 27, 2024 03:41 PM CHEST PORTABLE: ABRAHAM HAWK [id number] -1955 M Exm Date: JUL 27, 2024@15:41 Req Phys: GENDI,ELIZABETH Pat Loc: [facility]-EMERGENCY DEPT 2ND SHIFT (R Img Loc: [facility]-MAIN RADIOLOGY SUITE Service: Unknown [facility], [facility] [address] [place] [address] (Case [id number] COMPLETE) CHEST PORTABLE (RAD Detailed) CPT:02095 Proc Modifiers : Portable Reason for Study: sob Clinical History: Report Status: Verified Date Reported: JUL 27, 2024 Date Verified: JUL 27, 2024 Filter Tender Jelly E-Sig:/ES/Sol Abraham MD Report: CASE [id number]. AP portable view chest. COMPARISON: Chest x-ray [...] Report dictated by Krystian Sultana D.O. (radiology interventional physician) Sol Kilgore, have reviewed the images and report and concur with these findings. Primary Interpreting Staff: Sol Abraham MD, Radiologist (Filter Tender Jelly) Primary Interpreting Resident: Krystian Sultana D.O., Resident Physician /SOL DHALIWAL [facility] Jul 17, 2024 06:[address] ABD PEL W/CONT & 3D: CARINEABRAHAM BELLR [id number] -1955 M Exm Date: JUL 17, 2024@18:18 Req Phys: CASEY BOONE Pat Loc: 4-C SICU-[facility]/07-17-2024@19:47 Img Loc: [facility]-CT IMAGING [facility] Service: Unknown [facility], [facility] [address] [place] [address] (Case [id number] COMPLETE) CT ABDOMEN AND PELVIS W/CONTRAST (CT Detailed) CPT:99145 Contrast Media : Non-ionic Iodinated Reason for Study: septic shock, abd pain Clinical History: Responsible Attending: Nils Attending Contact Number: [phone] Resident Contact Number: Septic shock, Patient with [...] 17, 2024 Date Verified: JUL 17, 2024 Filter Tender Jelly E-Sig: Report: CT THORAX W/CONT (PE) [PRINTSET], CT ABDOMEN AND PELVIS W/CONTRAST [PRINTSET] Comparison: 03/17/2022, 04/23/2024 Clinical History: RO PE The study was protocoled and supervised at the local [place] facility. Chest 12 series and 1585 images were subsequently received by the [place] National Telerad[facility] (NTP) for interpretation. Abdomen and pelvis 9 series and 1365 images were subsequently received by the [place] National Teleradiology Program (NTP) for interpretation. Total [...] from 09/12/2023. READING PHYSICIAN: Guilherme Talbert M.D. -[phone] 07/17/2024 17:44 [facility] Broad[facility] Voiceradiology Program [phone] (For Medical Practitioner Use Only) Attention Patients / Veterans: If you have questions or concerns about these test results, please contact your ordering provider or primary care team. Primary Interpreting Staff: RADIOLOGY,OUTSIDE SERVICE, Staff Physician / RADIOLOGY,OUTSIDE SERVICE [facility] Jul 17, 2024 06:[address] PE CHEST W/3D: CARINEABRAHAM BELLR [id number] -1955 M Exm Date: JUL 17, 2024@18:17 Req Phys: CASEY BOONE Loc: 4-C SICU-[facility]/07-17-2024@19:47 Img Loc: [facility]-CT IMAGING [facility] Service: Unknown [facility], [address] [address] (Case [id number] COMPLETE) CT THORAX W/CONT (PE) (CT Detailed) CPT:12405 Contrast Media : unspecified contrast media Reason for Study: RO PE Clinical History: Responsible Attending: Nils Attending Contact Number: [phone] Resident Contact Number: Patient with HCC and [...] 17, 2024 Date Verified: JUL 17, 2024 Filter Tender Jelly E-Sig: Report: CT THORAX W/CONT (PE) [PRINTSET], CT ABDOMEN AND PELVIS W/CONTRAST [PRINTSET] Comparison: 03/17/2022, 04/23/2024 Clinical History: RO PE The study was protocoled and supervised at the local [place] facility. Chest 12 series and 1585 images were subsequently received by the [place] National Teleradiology Program (NTP) for interpretation. Abdomen and pelvis 9 series and 1365 images were subsequently received by the [place] National Teleradiology Program (NTP) for interpretation. Total [...] the previous MRI from 09/12/2023. READING PHYSICIAN: Guilehrme Talbert M.D. -[phone] 07/17/2024 17:44 [facility] National Teleradiology Program [phone] (For Medical Practitioner Use Only) Attention Patients / Veterans: If you have questions or concerns about these test results, please contact your ordering provider or primary care team. Primary Interpreting Staff: RADIOLOGY,OUTSIDE SERVICE, Staff Physician / RADIOLOGY,OUTSIDE SERVICE [facility] Pathology Reports: +/- 30 days [...] the Encounter. The data comes from all [place] treatment facilities. Date/Time Pathology Report Provider Source [...] Performing Laboratory: Surgical Pathology Report Performed By: [address]# [id number] [address] [place] [id number] $FTR - - - - - - [...] - - ABRAHAM HAWK STANDARD FORM 515 ID:[id number] SEX:M :1955 AGE: 68 LOC:APFEE PCP: Deirdre Wild /eze [place] Pathologist Signed: 08/16/2024 09:43 CRISTIANA TEMPLETON [facility] Aug 11, 2024 06:00 AM LR MICROBIOLOGY RE PORT: Accession [UID]: [id number] [[id number]] Received: Aug 11, 2024@06:19 Collection sample: B D BLD. BOTTLE Collection date: Aug 11, 2024 06:00 Site/Specimen: BLOOD Provider: GILSON OG Test(s) ordered: BLOOD CULT (SET 1)............ completed: Aug 17, 2024 10:06 * BACTERIOLOGY FINAL REPORT => Aug 17, 2024 10:22 TECH CODE: [id number] Bacteriology Remark(s): 2. KAA Culture shows NO GROWTH IN 6 DAYS =--=--=--=--=--=--=--=--=-- =--=--=--=--=--=--=--=--=-- =--=--=--=--=--=--=--=-- Performing Laboratory: Bacteriology Report Performed By: [facility] [address] [place] [address]# [id number] [address] [place] [phone] JULISSA BROWN [facility] Jul 17, 2024 05:10 PM LR MICROBIOLOGY RE PORT: Accession [UID]: [facility] [id number] [[id number]] Received: Jul 17, 2024@17:30 Collection sample: Mario Alberto D BLD. BOTTLE (SET 2)Collection date: Jul 17, 2024 17:10 Site/Specimen: BLOOD Provider: CASEY BOONE Test(s) ordered: BLOOD CULT (SET 2)............ completed: Jul 23, 2024 14:26 * BACTERIOLOGY FINAL REPORT => Jul 23, 2024 14:28 TECH CODE: [id number] Bacteriology Remark(s): CULTURE IS NEGATIVE TO DATE, ALL POSITIVES ARE ROUTINELY CALLED. KI Culture shows NO GROWTH IN 6 DAYS. 07/23/24 KI =--=--=--=--=--=--=--=--=-- =--=--=--=--=--=--=--=--=-- =--=--=--=--=--=--=--=-- Performing Laboratory: Bacteriology Report Performed By: [facility]# [id number] [address] [place] [phone] [facility] Jul 17, 2024 05:10 PM LR MICROBIOLOGY RE PORT: Accession [UID]: [id number] [[id number]] Received: Jul 17, 2024@17:30 Collection sample: B D BLD. BOTTLE Collection date: Jul 17, 2024 17:10 Site/Specimen: BLOOD Provider: CASEY BOONE Test(s) ordered: BLOOD CULT (SET 1)............ completed: Jul 23, 2024 14:26 * BACTERIOLOGY FINAL REPORT => Jul 23, 2024 14:28 TECH CODE: [id number] Bacteriology Remark(s): CULTURE IS NEGATIVE TO DATE, ALL POSITIVES ARE ROUTINELY CALLED. [facility] Culture shows NO GROWTH IN 6 DAYS. 07/23/24 KI =--=--=--=--=--=--=--=--=-- =--=--=--=--=--=--=--=--=-- =--=--=--=--=--=--=--=-- Performing Laboratory: Bacteriology Report Performed By: [facility]# [id number] [address] [place] [id number] [facility] Encounter Notes: All associated encounter notes This section contains the clinical notes associated to the Encounter. Date/Time Encounter Note(s) Provider Source Jul 19, 2024 12:39 PM SPEECH PATHOLOGY C ONSULT: LOCAL TITLE: SPEECH CONSULT STL STANDARD TITLE: SPEECH PATHOLOGY CONSULT DATE OF NOTE: JUL 19, 2024@12:39 ENTRY DATE: JUL 19, 2024@12:40:05 AUTHOR: OSWALDO GUZMAN COSIGNER: RAMSES JEAN URGENCY: STATUS: COMPLETED SPEECH PATHOLOGY BEDSIDE SWALLOW REPORT NAME: ABRAHAM HAWK DATE: JUL 19, 2024 PURPOSE OF VISIT: swallowing evaluation PATIENT STATED GOAL: none DIAGNOSIS: Dysphagia RELEVANT HISTORY: Last Admission: 07/17/24 7:35:25 pm Admit Dx: ACUTE BLOOD LOSS ANEMIA 1) Past history of procedure 2) Chronic hepatitis C 3) Hepatic cirrhosis 4) Chronic Pain Syndrome ([facility] [id number]) 5) GERD - Gastro-Esophageal Reflux Disease ([facility] [id number]) 6) Child attention deficit disorder 7) Monoclonal gammopathy 8) History of colonic polyp 9) Hearing Loss ([facility] [id number]) 10) Dupuytren contracture 11) Hepatocellular carcinoma 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 He reported his trismus has improved. He believes he is feeling better secondary to RSO. ORAL MOTOR EXAMINATION: Edentulous: yes Dentures: has dentures however does not wear them Awareness/Control of Secretions: Drooling: - Wet Breath Sounds: - Jaw Control: + Labial Function: Lip Closure: + Lip Movement: + Lingual Function: Retraction: + Elevation: + Protrusion: + Lateralization: + Reflexes: Swallow Reflex: + LARYNGEAL EXAMINATION: Tracheostomy Tube: No Voice Quality: Breathy: - Hoarse: - Wet:- COGNITION/COMMUNICATION: Patient was alert, verbal, and following commands. RN concerns with decreased PO intake. Patient reported his is brining in boost. ITEMS TESTED: THIN LIQUIDS: water THICK LIQ: PUREE: puree pears SOLID: OTHER: OBSERVATIONS: Oral stage was timely and efficient for items tested. Oral clearance was achieved. Pharyngeal swallow was visible. There were no overt s/s of aspiration observed during PO intake. Vocal quality remained dry. Patient is requesting puree textures at this time as they are easy to swallow and do not require mastication. He said he is not wearing dentures to eat and can't chew without them. PILL SWALLOW: Pills with thin liquids; patient denied difficulties IMPRESSION: Safe and efficient swallow for puree and thin liquids. Patient reported oral dysphagia secondary to not wearing dentures. PLAN: open for consultation as needed GOALS: 1. Assess patient's diet tolerance and make diet modifications as needed to determine the most appropriate diet in 1-3 sessions. -GOAL MET RECOMMENDATIONS: SWALLOWING/FEEDING COMPENSATORY STRATEGIES: Small bites/sips Slow rate of intake Sit upright for PO intake Double swallows Alternate foods/liquids Consistent oral hygiene care DIET RECOMMENDATIONS: Food: IDDSI Level 4: Puree Liquid: IDDSI Level 0: Thin COORDINATION OF CARE: A verbal message was provided to the RN regarding the diet change recommendation. /loly/ Oswaldo Guzman MS, [facility]EXPERIENCE DESIGN DIRECTOR Speech Pathologist, Speech Language Pathology Signed: 07/19/2024 12:48 /loly/ RAMSES JEAN MD Attending Physician - Internal Medicine Cosigned: 07/19/2024 13:10 Receipt Acknowledged By: 07/19/2024 13:00 /loly/ Lanie Zepeda RD, LD, [facility] Clinical Dietitian OSWALDO GUZMAN [facility]
--- OUTSIDE RECORDS SUMMARY | 2024-10-08 17:14 | XMS_ITS | Clinical Summary ---
Author Organization [facility] Address [address] [facility] [address] [place] [address] Phone Care Team Providers Care Mill Turner Name Role Phone Derrell Barrow Primary Care Provider [phone] Allergies No known active allergies Medications Homeopathic [...] Lnp-s, Pf, 3 0 Mcg/0.3 Ml Dose (Buffer) 10/09/2020,09/11/2020 Influenza Vaccine, Quadrivalent, PF 03/26/2020 Zoster [...] age to complete this topic Care Teams Mill Turner Relationship Specialty Start Date End Date Derrell Barrow [address] [facility] [place] [address] PCP - General Family Medicine 11/13/19
--- OUTSIDE RECORDS SUMMARY | 2024-10-08 17:14 | XMS_ITS ---
Author Name [facility] Address [address] [place] [address] Care Team Providers Care Loan Adviser Name Role Phone SUKHJINDER CHAHAL Primary Care [...] SUPPL EMENT Nov 25, 2021 PLAN G [id number] [phone] ELLEN HAWK VID PATIENT AARP MED SUPP MEDIGAP PLAN G MEDIC ARE SUPPL EMENT Nov 25, 2021 PLAN G [id number] [phone] ELLEN HAWK VID PATIENT MEDICARE (WNR) MEDICARE (M) PART B Sep 25, 2021 PART B [id number] [phone] ELLEN HAWK VID PATIENT MEDICARE (WNR) MEDICARE (M) PART A Aug 25, 2021 PART A [id number] [phone] ELLEN HAWK PATIENT Selected Encounter This section includes the information on record at [place] for the Encounter. Date/Time Encounter Type Encounter Description Reason Pro vider Source Sep 27, 2024 10:30 AM OFF/OP EST OCTOBER X REQ PHY/QHP GASTROENTEROLOGY ICD-10-CM K74.60 Unspecified cirrhosis of liver HOLLY HERRON Abdiel Encounter Template Text not used by [place] Assessments - Encounter Diagnoses This section includes the primary and secondary diagnoses documented for the Encounter. Date/Time Primary/Secondary Diagnosis Diagnosis Name Provider Source Sep 27, 2024 10:35 AM PRIMARY [facility] Sep 27, 2024 10:35 AM SECONDARY [facility] cell [facility] Sep 27, 2024 10:35 AM SECONDARY Melena [facility] Plan of Treatment: Future Appointments (+ 6 months) and Future Tests (+/- 45 days) The Plan of Treatment section includes future care activities for the patient from [facility] [place] [facility]. This section includes future appointments and future orders which are active, pending or scheduled. Future Appointments This section includes appointments that were scheduled to occur 6 months from the date of the Encounter, up to a maximum of 20 appointments. The data comes from all [place] treatment [facility]. Appointment Date/Time Appointment Type Appointme nt Facility Name Oct 15, 2024 03:00 PM AMBULATORY - SURGERY [facility] Oct 19, 2024 02:00 PM AMBULATORY - NONE [facility] Active, Pending, and Scheduled Orders This section includes a listing of several types of active, pending, and scheduled orders, including clinic medications orders, diagnostic test orders, procedure orders and consult orders; where the start date of the order is 45 days before the date of the Encounter or 45 days after the date of theEncounter. The data comes from all [place] treatment [facility]. Test Date/Time Test Type Test Details Facility Name Aug 14, 2024 02:00 AM Laboratory - Chemistry Order CBC BLOOD [facility] Aug 15, 2024 02:00 AM Laboratory - Chemistry Order CBC BLOOD WC [facility] Aug 16, 2024 12:00 AM Laboratory - Chemistry Order CBC BLOOD SP [facility] Aug 16, 2024 08:00 PM Laboratory - Chemistry Order CBC BLOOD LC [facility] Aug 17, 2024 08:00 PM Laboratory - Chemistry Order CBC BLOOD LC [facility] Sep 27, 2024 12:00 AM Laboratory - Chemistry Order CBC BLOOD SP [facility] Sep 27, 2024 12:00 AM Laboratory - Chemistry Order COMPREHENSIVE METABOLIC PANEL GREEN LI/HEP BLD/PLAS PLASMA SP [facility] Oct 19, 2024 12:00 AM Imaging - Magnetic Resonance Imaging (MRI) Order MRI ABDOMEN W/O&W CONT [facility] Lab Results: +/- 30 [...] Type Comment Sep 07, 2024 12:39 PM [facility] COMPREHENSIVE METABOLIC PANEL PLASMA Specimen Type: PLASMA Comment: No hemolysis noted. Ordering Provider: TONY SIMMONS Report Released Date/Time: Aug 31, 2024 02:42 PM Reporting Lab: [address] [address] Performing Lab: [address] [address] CREATININE 0.87 mg/dL 0.7-1.3 UREA NITROGEN 24.5 [...] 94.0 >60 Sep 07, 2024 12:39 PM [facility] CBC BLOOD Specimen Type: BLOOD No comment entered. Ordering Provider: TONY SIMMONS Report Released Date/Time: Aug 31, 2024 02:42 PM Reporting Lab: [facility] [address] [facility] [address] Performing Lab: [address] [address] WBC 5.1 10*3/uL 3.6-11.2 RBC 3.44 10*6/uL [...] 10*3/uL 2.10-8.00 Sep 07, 2024 12:39 PM [facility] ALPHA-FETOPROTEIN(STL-PB) SERUM Specimen Type : SERUM No comment entered. Ordering Provider: DANIELLE MASSEY Report Released Date/Time: Sep 07, 2024 11:59 AM Reporting Lab: [facility] [address] [facility] [address] Performing Lab: [address] [address] ALPHA-FETOPROTEIN(STL-PB) 15.01 ng/mL H 1- 8.78 Aug 31, 2024 02:04 PM [facility] COMPREHENSIVE METABOLIC PANEL PLASMA Specimen Type: PLASMA Comment: No hemolysis noted. Ordering Provider: TONY SIMMONS Report Released Date/Time: Aug 27, 2024 12:35 PM Reporting Lab: [address] [address] Performing Lab: [address] [address] CREATININE 0.90 mg/dL 0.7-1.3 UREA NITROGEN 26.4 [...] 93.6 >60 Aug 31, 2024 02:04 PM [facility] CBC BLOOD Specimen Type: BLOOD No comment entered. Ordering Provider: TONY SIMMONS Report Released Date/Time: Aug 27, 2024 12:35 PM Reporting Lab: [place] [id number] [facility] [address] Performing Lab: [address] [address] WBC 4.7 10*3/uL 3.6-11.2 RBC 3.54 10*6/uL [...] 10*3/uL L 0.77-4.50 NEUT#-MDIFF 3.97 10*3/uL 2.10-8.00 Social History: Smoking Status (Most current) and Tobacco Use (All prior to encounter date) This section includes the most current, and the historical, smoking and tobacco- related health factors from the [place] facility where the Encounter took place. Current Smoking Status This section includes the most current smoking, or tobacco-related health factor, from the [place] facility where the Encounter took place. Date/Time Current Smoking Status Comment Facil ity Jul 17, 2024 04:02 PM ORYX ADMIT TOBACCO SCREEN NO [facility] Tobacco Use History This section includes a history of the smoking, or tobacco-related health factors, that were collected on or before the date of the Encounter. The data comes from the [place] facility where the Encounter took place. Date/Time Smoking Status/Tobacco Use Comment F acility Jan 20, 2023 03:49 PM VA-TOBACCO FORMER USER [facility] Jan 20, 2023 03:49 PM VA-TOBACCO QUIT 15 YRS OR MORE [facility] Feb 06, 2021 04:28 PM VA-TOBACCO FORMER USER [facility] Feb 06, 2021 04:28 PM VA-TOBACCO QUIT 15 YRS OR MORE [facility] Encounter Notes: All associated encounter notes This section contains the clinical notes associated to the Encounter. Date/Time Encounter Note(s) Provider Source Sep 27, 2024 10:30 AM GASTROENTEROLOGY T ELEPHONE ENCOUNTER NOTE: LOCAL TITLE: GASTROENTEROLOGY TELEPHONE NOTE ST STANDARD TITLE: GASTROENTEROLOGY TELEPHONE ENCOUNTER NOTE DATE OF NOTE: SEP 27, 2024@10:30 ENTRY DATE: SEP 27, 2024@10:30:43 AUTHOR: HOLLY HERRON EXP COSIGNER: URGENCY: STATUS: COMPLETED GASTROENTEROLOGY TELEPHONE NOTE STL Has ADDENDA Mrs Hawk called to let us know that Mr Hawk was admitted to [facility] on 09/26/24 for GIB. Mr Hwak has melena 09/25 and did not feel well , and did not want to come to the [place] ER at that time. Mrs Hawk called EMS yesterday after he had coffee ground emesis, and he was taken to [place]. Mr Hawk is scheduled for an EGD this afternoon. I asked Mrs Hawk to let me know when he will be discharged and I will send for his records. Mr Hawk is currently scheduled for an EGD at on 10/02/24. JAMAAL Massey will be notified. /eze HERRON RN HEPATOLOGY WEED CONTROLLER Signed: 09/27/2024 10:35 Receipt Acknowledged By: 09/27/2024 10:35 /loly/ Danielle Massey PA-C Physician Nail Welter - Gastroenterology 09/27/2024 ADDENDUM STATUS: COMPLETED please see addendum to 09/26/24 GI nurse note. /eze Massey PA-C Physician Nail Welter - Gastroenterology Signed: 09/27/2024 10:35 09/27/2024 ADDENDUM STATUS: COMPLETED I LM on pt's 's VM, letting her know that Mr Hawk's 10/02/24 EGD has been cancelled, and we will schedule a f/u EGD after we see Mr Hawk's hospital records, including the EGD report from today. Mrs Hawk has my contact info from our previous conversation. /loly/ HOLLY HERRON RN HEPATOLOGY WEED CONTROLLER Signed: 09/27/2024 12:50 HOLLY HERRON [facility]
--- OUTSIDE RECORDS SUMMARY | 2024-10-08 17:14 | XMS_ITS ---
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 Date/Time Primary/Secondary Diagnosis Diagnosis Name Provider Source Jun 15, 2024 12:42 PM PRIMARY Malignant neoplasm of nasopharynx, unspecified XIOMARA ELMORE [facility] Plan of Treatment: Future Appointments (+ 6 months) and Future Tests (+/- 45 days) The Plan of Treatment section includes future care activities for the patient from all [place] treatmentfacilities. This section includes future appointments and future orders which are active, pending or scheduled. Future Appointments This section includes appointments that were scheduled to occur 6 months from the date of the Encounter, up to a maximum of 20 appointments. The data comes from all [place] treatment facilities. Appointment Date/Time Appointment Type Appointme nt Facility Name Jul 13, 2024 11:30 AM AMBULATORY - MEDICINE [facility] Jul 13, 2024 12:00 PM AMBULATORY - MEDICINE [facility] Jul 17, 2024 04:02 PM AMBULATORY - MEDICINE [facility] Jul 25, 2024 01:00 PM [facility] - [facility]INE [facility] Jul 26, 2024 10:00 AM [facility] Jul 27, 2024 03:14 PM AMBULATORY - MEDICINE [facility] Aug 01, 2024 10:15 AM AMBULATORY - NONE [facility] Aug 02, 2024 11:30 AM AMBULATORY - MEDICINE [facility] Aug 02, 2024 11:31 AM AMBULATORY - MEDICINE [facility] Aug 10, 2024 11:00 AM AMBULATORY - MEDICINE [facility] Aug 10, 2024 11:31 AM AMBULATORY - MEDICINE [facility] Aug 10, 2024 11:59 AM AMBULATORY - MEDICINE [facility] Aug 16, 2024 10:00 AM [facility] Aug 17, 2024 08:30 AM AM[facility]ORY - [facility] Aug 17, 2024 09:00 AM AMBULATORY - MEDICINE [facility] Aug 17, 2024 09:30 AM AMBULATORY - MEDICINE [facility] Aug 23, 2024 12:00 PM AMBULATORY - [facility] Aug 31, 2024 02:00 PM AMBULATORY - MEDICINE [facility] Sep 07, 2024 11:00 AM AMBULATORY - MEDICINE [facility] Sep 07, 2024 01:00 PM AMBULATORY - MEDICINE [facility] Active, Pending, and Scheduled Orders This section includes a listing of several types of active, pending, and scheduled orders, including clinic medications orders, diagnostic test orders, procedure orders and consult orders; where the start date of the order is 45 days before the date of the Encounter or 45 days after the date of theEncounter. The data comes from all [place] treatment facilities. Test Date/Time Test Type Test Details Facility Name Jul 17, 2024 12:00 AM Laboratory - Blood Bank Order RED BLOOD CELLS - LAB VBECS - NO SPECIMEN REQUIRED [facility] Jul 17, 2024 12:00 AM Laboratory - Blood Bank Order FRESH FROZEN PLASMA - LAB VBECS - NO SPECIMEN REQUIRED [facility] Jul 17, 2024 06:13 PM Laboratory - Blood Bank Order DIRECT ANTIGLOBULIN TEST - LAB BLOOD STAT [facility] Jul 17, 2024 06:13 PM Laboratory - Blood Bank Order TYPE & SCREEN - LAB BLOOD [facility] Jul 18, 2024 12:00 AM Laboratory - Blood Bank Order PLATELETS - LAB VBECS - NO SPECIMEN REQUIRED [facility] Lab Results: +/- 30 days of the encounter This section includes the Chemistry and Hematology Lab Results on record with [place] for the patient. Radiology Reports and Pathology Reports are provided separately, in subsequent sections. Lab Results This section contains the Chemistry/Hematology Results that were resulted 30 days before or 30 daysafter the date of the Encounter. Date/Time Source Result Type Result - Unit Interpretation Reference Range Specimen Type Comment Jul 13, 2024 12:39 PM [facility] PHOSPHOROUS PLASMA Specimen Type: PLASMA Comment: No hemolysis noted. Ordering Provider: HUNTER SIMMONS Report Released Date/Time: Jun 07, 2024 01:01 PM Reporting Lab: [facility] [address] [address] Performing Lab: [facility] [address] [place] [address] PHOSPHOROUS 2.4 mg/dL 2.3-4.7 Jul 13, 2024 12:39 PM [facility] TSH W/ REFLEX FT4 (STL) PLASMA Specimen Type: PLASMA No comment entered. Ordering Provider: HUNTER SIMMONS Report Released Date/Time: Jun 07, 2024 01:01 PM Reporting Lab: [facility] [address] [place] [phone] Performing Lab: [facility] [address] [place] [phone] TSH 1.431 u[IU]/mL 0.47-5 Jul 13, 2024 12:39 PM [facility] MAGNESIUM PLASMA Specimen Type: PLASM A Comment: No hemolysis noted. Ordering Provider: HUNTER SIMMONS Report Released Date/Time: Jun 07, 2024 01:01 PM Reporting Lab: [facility] [address] [place] [address] Performing Lab: [facility] [address] [place] [phone] MAGNESIUM 2.0 mg/dL 1.6-2.6 Jul 13, 2024 12:39 PM [facility] COMPREHENSIVE METABOLIC PANEL PLASMA Specimen Type: PLASMA Comment: No hemolysis noted. Ordering Provider: HUNTER SIMMONS Report Released Date/Time: Jun 07, 2024 01:01 PM Reporting Lab: [facility] [address] [place] [address] Performing Lab: [facility] [address] [place] [phone] CREATININE 0.75 mg/dL 0.7-1.3 UREA NITROGEN 21.3 [...] Type: BLOOD Comment: no clot Ordering Provider: HUNTER SIMMONS Report Released Date/Time: Jun 07, 2024 01:01 PM Reporting Lab: [address] [address] Performing Lab: [address] [address] WBC 3.0 10*3/uL L 3.6-11.2 RBC 3.83 [...] 10*3/uL 2.10-8.00 Jul 13, 2024 12:38 PM [facility] ALPHA-FETOPROTEIN(STL-PB) SERUM Specimen Type : SERUM No comment entered. Ordering Provider: CRYSTAL MASSEY Report Released Date/Time: Jul 04, 2024 03:26 PM Reporting Lab: [facility] [address] [place] [address] Performing Lab: [facility] [address] [place] [address] ALPHA-FETOPROTEIN(STL-PB) 16.86 ng/mL H 1- 8.78 Jul 13, 2024 12:37 PM [facility] CARBOHYDRATE Ag SERUM Specimen Type: SERUM Comment: REFERENCE RANGE: <34 U/mL This test was performed using the Siemens chemiluminescent method. Values obtained from different assay methods cannot be used inter- changeably. CA 19-9 levels, regardless of value, should not be interpreted as absolute evidence of the presence or absence of disease. Test Performed by [facility], [facility], [address] [place] [address] Tristin Iyer M.D., Ph.D., Director of Laboratories , [place] [id number] Ordering Provider: CRYSTAL MASSEY Report Released Date/Time: Jul 04, 2024 03:28 PM Reporting Lab: [facility] [address] [place] [address] Performing Lab: [facility] [address] [facility] CARBOHYDRATE Ag 61 H SEE BELOW Social History: Smoking Status (Most current) and Tobacco Use (All prior to encounter date) This section includes the most current, and the historical, smoking and tobacco- related health factors from the [place] facility where the Encounter took place. Current Smoking Status This section includes the most current smoking, or tobacco-related health factor, from the [place] facility where the Encounter took place. Date/Time Current Smoking Status Comment Facil ity Jan 20, 2023 03:49 PM VA-TOBACCO QUIT 15 YRS OR MORE [facility] Tobacco Use History This section includes a history of the smoking, or tobacco-related health factors, that were collected on or before the date of the Encounter. The data comes from the [place] facility where the Encounter took place. Date/Time Smoking Status/Tobacco Use Comment F acility Jan 20, 2023 03:49 PM VA-TOBACCO QUIT 15 YRS OR MORE [facility] Feb 06, 2021 04:28 PM VA-TOBACCO FORMER USER [facility] Feb 06, 2021 04:28 PM VA-TOBACCO QUIT 15 YRS OR MORE [facility] Radiology Reports: +/- 30 days of [...] the Encounter. The data comes from all [place] treatment facilities. Date/Time Radiology Report Provider Source May 28, 2024 06:00 AM MRI ABDOMEN W/O&W CONT: ABRAHAM HAWK [id number] M Exm Date: MAY 28, 2024@06:00 Req Phys: CRYSTAL MASSEY Loc: [facility]HEP LIVER (Req'g Loc) Img Loc: OUTSIDE [facility] Service: Unknown (Case [id number] COMPLETE) MRI ABDOMEN W/O&W CONT (MRI Detailed) CPT:18469 Contrast Media : Non-ionic Iodinated Reason for Study: OUTSIDE STUDY Clinical History: Report Status: Electronically Filed Date Reported: JUN 11, 2024 Report: This study was performed outside the [place] in another facility and images were uploaded into Source MDx. The report has been scanned into [employer]. In order to upload images a case number was needed, therefore this is an administrative report. Impression: This study was performed outside the [place] in another facility and images were uploaded into Source MD[facility]. The report has been scanned into [employer]. In order to upload images a case number was needed, therefore this is an administrative report VERIFIED BY: / *ELECTRONICALLY FILED* [facility] May 22, 2024 03:03 PM MRI ORBITS,FACE & NECK W/O&W CONT: ABRAHAM HAWK [id number] -1955 M Exm Date: MAY 22, 2024@15:03 Req Phys: HUNTER SIMMONS Loc: [facility]PHONE ONCOLOGY (Req'g Loc) Img Loc: [facility] Service: [address] [address] (Case [id number] COMPLETE) MRI ORBITS,FACE & NECK W/O&W CONT(MRI Detailed) CPT:84360 Contrast Media : unspecified contrast media Reason for Study: Restaging CONTINUOUS PROCESS ROTARY DRUM TANNER CANCER (Case [id number] COMPLETE) MRI 3D RENDERING W/O INDEPENDENT (MRI Detailed) CPT:46704 Clinical History: Responsible Attending: Hunter Friedman Attending Contact Number: [phone] Resident Contact Number: Does your patient have [...] 23, 2024 Date Verified: MAY 23, 2024 Department Administrator E-Sig:/ES/EUGENIE ALAN MD Report: Multiplanar, multisequence MRI [...] Primary Interpreting Staff: EUGENIE ALAN MD, Radiologist (Loulou) /[facility]IE [facility] Encounter Notes: All associated encounter notes This section contains the clinical notes associated to the Encounter. Date/Time Encounter Note(s) Provider Source Jun 15, 2024 11:32 AM INTERNAL MEDICINE CLINICAL PHARMACIST MEDICATION MGT NOTE: LOCAL TITLE: CLINICAL PHARMACIST NOTE [facility] STANDARD TITLE: INTERNAL MEDICINE CLINICAL PHARMACIST MEDICATION DATE OF NOTE: JUN 15, 2024@11:32 ENTRY DATE: JUN 15, 2024@11:32:33 AUTHOR: LORRIE ELMORE COSIGNER: URGENCY: STATUS: COMPLETED Oncology Clinical Pharmacist Note Subjective: ABRAHAM HAWK is a 68 y/o MALE that follows with Hematology/Oncology Service for newly diagnosed nasopharyngeal SCC. Provider has requested pharmacy to prepare a proposed chemotherapy plan for consideration and review. The purpose of this note is to document recommendations to oncology provider regarding initiation of pembrolizumab on 06/22/2024 PMH: Chronic hepatitis C, GERD, h/o hepatocellular carcinoma, thrombocytopenia ALLERGIES: Patient has answered NKA Prior Treatment: Completed prescribed fractions over 15 elapsed days and opted to stop treatment. Active Outpatient Medications: (for new admissions and discharge notes) Active and Recently Outpatient Medications (excluding Supplies): Active Outpatient Medications Status 1) ARTIFICIAL SALIVA ORAL SPRAY USE 3-5 SPRAYS BY MOUTH EVERY ACTIVE TWO HOURS NEEDED Indication: FOR DRY MOUTH AND THROAT 2) NUTRITION SUPL ENSURE PLUS/STRWBERRY LIQ TAKE 1 CANFUL BY ACTIVE MOUTH FOUR TIMES A DAY Indication: FOR NUTRITION/DIETARY SUPPLEMENTATION 3) OMEPRAZOLE 40MG EC CAP TAKE ONE CAPSULE BY MOUTH EVERY ACTIVE MORNING BEFORE A MEAL TO LOWER STOMACH ACID. TAKE 30 MINUTES PRIOR TO FOOD. 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 Indication: FOR YEAST Active Non-VA Medications Status 1) Non-VA AMPHETAMINE/DEXTROAMPHET [...] BY MOUTH ONCE A DAY ACTIVE NEEDED 12 Total Medications Height: 72 in [182.9 cm] (07/26/2023 08:00) Weight: 161.2 lb [73.12 kg] (05/11/2024 14:21) BSA: Body Surface Area (BSA) = 1.93 m2 [facility]: SODIUM 136 mEq/L 05/11/2024 14:20 POTASSIUM 4.4 mEq/L 05/11/2024 14:20 CHLORIDE 97 L mEq/L 05/11/2024 14:20 UREA NITROGEN 20.5 mg/dL 05/11/2024 14:20 CREATININE 1.06 mg/dL 05/11/2024 14:20 CALCIUM 10.0 mg/dL 05/11/2024 14:20 PROTEIN 8.5 g/dL 05/11/2024 14:20 ALBUMIN 4.1 g/dL 05/11/2024 14:20 ALKALINE PHOSPHATASE 137 U/L 05/11/2024 14:20 ALT/SGPT 19 U/L 05/11/2024 14:20 AST/SGOT 29 U/L 05/11/2024 14:20 TOTAL BILIRUBIN 1.0 mg/dL 05/11/2024 14:20 CARBON DIOXIDE 30 mEq/L 05/11/2024 14:20 GLUCOSE 125 H mg/dL 05/11/2024 14:20 EGFR (CKD-EPI 2020) 76.9 05/11/2024 14:20 Estimated CrCl ~70 ml/min based on Actual Body Weight WBC 4.5 10*3/uL 05/11/2024 14:19 RBC 4.26 10*6/uL 05/11/2024 14:19 HGB 14.4 g/dL 05/11/2024 14:19 HCT 40.9 % 05/11/2024 14:19 MCV 96.0 fL 05/11/2024 14:19 MCH 33.8 pg 05/11/2024 14:19 MCHC 35.2 g/dL 05/11/2024 14:19 RDW 13.3 % 05/11/2024 14:19 PLT 70 L 10*3/uL 05/11/2024 14:19 MPV 12.3 H fL 05/11/2024 14:19 NEUTROPHILS, AUTO % 66 % 07/21/2023 14:43 LYMPHOCYTES, AUTO % 17 % 07/21/2023 14:43 MONOCYTES, AUTO % 13 % 07/21/2023 14:43 EOSINOPHILS, AUTO % 3 % 07/21/2023 14:43 BASOPHILS, AUTO % 1 % 07/21/2023 14:43 NEUTROPHILS, ABSOLUTE 3.70 10*3/uL 07/21/2023 14:43 LYMPHOCYTES, ABSOLUTE 0.96 10*3/uL 07/21/2023 14:43 MONOCYTES, ABSOLUTE 0.75 10*3/uL 07/21/2023 14:43 EOSINOPHILS, ABSOLUTE 0.16 10*3/uL 07/21/2023 14:43 BASOPHILS, ABSOLUTE 0.03 10*3/uL 07/21/2023 14:43 NEUTROPHILS 72.3 % 05/11/2024 14:19 LYMPHOCYTES 10.7 % 05/11/2024 14:19 MONOCYTES 5.4 % 05/11/2024 14:19 EOSINOPHILS 3.6 % 05/11/2024 14:19 ATYPICAL LYMPHOCYTES 8.0 % 05/11/2024 14:19 IMMATURE PLT FRACTION 10.0 H % 05/11/2024 14:19 TEARDROPS 1+ 05/11/2024 14:19 Assessment: Physician requested regimen: pembrolizumab every 21 days per NCCN Template [id number] Emetic risk: MINIMAL Emetic Risk Parenteral Anticancer Agents OR LOW/MINIMAL Emetic Risk Oral Anticancer Agents: No routine prophylaxis indicated for this regimen per NCCN antiemetic guidelines and local template standards. Provide one breakthrough medication. Febrile neutropenia risk: Low: Regimen is expected to cause febrile neutropenia/grade 4 neutropenia in less than 10% of patients - G-CSFs not routinely recommended Infection Risk: Regimen is considered LOW Infection Risk Standard chemotherapy regimens for most solid tumors Anticipated neutropenia < 7 days Prophylaxis - Bacterial: NONE - Fungal: NONE - Viral: NONE unless prior HSV episode Additional supportive care: Regimen may cause diarrhea, will provide prn loperamide per local plan template Initial adjustments for renal/hepatic function: - No initial dose adjustments recommended based on renal and hepatic function at this time Drug interactions: - There are no major, actionable drug interactions between regimen and current medication list identified. Monitoring: Labs per local chemotherapy plan template: Day 1 of each cycle: CBC, CMP, TSH Hepatitis B screen prior to initiating treatment PD 1 expression for appropriate therapy lines Regimen specific monitoring prior to each dose and as clinically indicated: Immunotherapy - Infusion reactions may occur with administration - Immunotherapy related toxicities: colitis, pneumonitis, endocrinopathies, ocular inflammatory toxicity, encephalitis, pancreatitis, dermatologic toxicity, arthralgia or myalgia Calculations: N/A Pembrolizumab 200mg is a flat dose in regimen Plan: PROPOSED CHEMOTHERAPY PLAN FOR PHYSICIAN REVIEW: THE FOLLOWING PLAN IS NOT TO BE CONSIDERED AN ORDER FOR CHEMOTHERAPY, ONLY PLANS PLACED INTO NOTES TITLED CHEMOTHERPAY PROVIDER PLAN SHALL BE CONSIDERED VALID ORDERS FOR CHEMOTHERAPY Patient Name: ABRAHAM HAWK Patient Age: 68 Patient Sex: MALE Patient Height: 72 in [182.9 cm] (07/26/2023 08:00) Patient Weight: 161.2 lb [73.12 kg] (05/11/2024 14:21) BSA: 1.93 m2 [facility] ECOG Performance Status: To be assessed and determined by physician [ ] ECOG 0 (fully active, no restrictions) [ ] ECOG 1 (restricted in strenuous activity only) [ ] ECOG 2 (up and about >/= 50% of waking hours) [ ] ECOG 3 (confined to bed/chair > 50% of waking hours) [ ] ECOG 4 (completely disabled; confined to bed/chair) Diagnosis: nasopharyngeal SCC TEMPUS:PDL CPS = 15 Stage: To be assessed and determined by physician Treatment Intent [ ] Curative [ ] Palliative PMH: Chronic hepatitis C, GERD, h/o hepatocellular carcinoma, thrombocytopenia ALLERGIES: Patient has answered NKA Pertinent Laboratory: WBC 4.5 10*3/uL (05/11/24 14:19) HGB 14.4 g/dL 05/11/2024 14:19 PLT 70 L 10*3/uL 05/11/2024 14:19 POTASSIUM 4.4 mEq/L 05/11/2024 14:20 CALCIUM: 10.0 mg/dL (05/11/24 14:20) PHOSPHOROUS 2.5 mg/dL 05/11/2024 14:19 MAGNESIUM: 1.9 mg/dL (05/11/24 14:19) TSH 1.974 uIU/mL 05/11/2024 14:35 CREATININE 1.06 mg/dL 05/11/2024 14:20 EGFR (CKD-EPI 2020) 76.9 05/11/2024 14:20 Estimated CrCl ~70 ml/min based on Actual Body Weight HEPATIC FUNCTION PROFILE: AKP: 137 (05/11/24 14:20) ALB: 4.1 (05/11/24 14:20) GOT/AST: 29 (05/11/24 14:20) GPT/ALT: 19 (05/11/24 14:20) T.Prot: 8.5 (05/11/24 14:20) TBIL: 1.0 (05/11/24 14:20) Collection time: May 11, 2024@14:20 Test Name Result Units Range --------- ------ ----- ----- CORE TOTAL Nonreactive S/CO Ref: Nonreactive Collection time: Jun 07, 2022@13:50 Test Name Result Units Range --------- ------ ----- ----- HCV RNA,PCR (IU/ML) <15 IU/mL Ref: <=15 HCV-LOG <1.18 Log IU/mL Ref: <=1.18 Collection time: Apr 27, 2022@11:12 Test Name Result Units Range --------- ------ ----- ----- HIV Combo Nonreactive S/CO Ref: Nonreactive HBSAG Nonreactive S/CO Ref: Nonreactive HBsAB Nonreactive mIU/mL Ref: Nonreactive HEPATITIS A IGG AB (STL) Nonreactive S/CO Ref: Nonreactive HEP C Ab HCV Ab (STL) REACTIVE H* S/CO Ref: Nonreactive ECHO/MUGA: EF 60-65% 04/27/2022 EKG: QTC Calculation(Bazett)403ms 07/22/2023 Active medication list reviewed for actionable drug interactions: Yes - There are no major, actionable drug interactions between regimen and current medication list identified. Chemotherapy Plan: Pembrolizumab every 21 days Chemotherapy Start Date: 06/22/2024 Planned number of cycles: Until disease progression or unacceptable toxicity or until 24 months of therapy have been completed Laboratory or Other Tests Related to Chemotherapy: Day 1 of each cycle: CBC, CMP, TSH Hepatitis B screen prior to initiating treatment PD 1 expression for appropriate therapy lines Dosing Guidelines/Parameters: Treat with ANC greater than or equal to 1500; Platelets greater than or equal to 100,000 Chemotherapy: 1st Drug: Pembrolizumab Dose: 200 MG (fixed dose) Route: IVPB in NS 100 ml over 30 minutes. Use low-protein binding 0.2-5 micron in-line or add-on filter. Frequency: Day 1 Cycle to be repeated: Q 21 days Flush line after administration with compatible fluid Take Home Medications: -Ondansetron 8mg PO TID PRN nausea and vomiting -Loperamide 4 mg PO first onset of diarrhea then 2 mg after each loose stool until diarrhea free for 12 hours Hold treatment and call Attending MD/CONTINUOUS PROCESS ROTARY DRUM TANNER for: - Infusion or hypersensitivity reactions: Shortness of breath, hypotension, itching, rash, sweating, anaphylaxis. Time spent reviewing chart/speaking with provider: 30 minutes Notes to provider: 1. Please update ECOG/Stage/Intent during plan placement 2. Consider lowering platelet threshold for treatment due to underlying thrombocytopenia /loly/ Lorrie Elmore PharmD, BCPS, BCOP Oncology Clinical Aerophysicist Signed: 06/15/2024 12:42 Receipt Acknowledged By: 06/22/2024 12:21 /olly/ HUNTER SIMMONS MD STAFF PHYSICIAN, HEMATOLOGY/ONCOLOGY LORRIE ELMORE [facility]
--- OUTSIDE RECORDS SUMMARY | 2024-10-08 17:14 | XMS_ITS | Encounter Summary ---
Author Name [facility] [place] [facility] [place] Address [address] [place] [address] Care Team Providers Care Analysis Intern Name Role Phone SUKHJINDER CHAHAL Primary Care [...] SUPPL EMENT Nov 25, 2021 PLAN G [id number] [phone] ELLEN HAWK VID PATIENT AARP MED SUPP MEDIGAP PLAN G MEDIC ARE SUPPL EMENT Nov 25, 2021 PLAN G [id number] [phone] ELLEN HAWK VID PATIENT MEDICARE (WNR) MEDICARE (M) PART B Sep 25, 2021 PART B [id number] [phone] ELLEN HAWK VID PATIENT MEDICARE (WNR) MEDICARE (M) PART A Aug 25, 2021 PART A [id number] ELLEN HAWKD PATIENT Selected Encounter This section includes the information on record at [place] for the Encounter. Date/Time Encounter Type Encounter Description Reason Provider Source May 02, 2024 01:30 PM HEARING AID FITTING/CHECKIN G AUDIOLOGY ICD-10-CM H90.3 Sensorineural hearing loss, bilateral WALTERNATHEN Shi Abdiel Encounter Template Text not used by [place] Assessments - Encounter Diagnoses This section includes the primary and secondary diagnoses documented for the Encounter. Date/Time Primary/Secondary Diagnosis Diagnosis Name Provider Source May 02, 2024 02:10 PM PRIMARY Sensorineural hearing loss, bilateral BEBO PERALES [facility] Plan of Treatment: Future Appointments (+ 6 months) and Future Tests (+/- 45 days) The Plan of Treatment section includes future care activities for the patient from [facility] [place] [facility] This section includes future appointments and future orders which are active, pending or scheduled. Future Appointments This section includes appointments that were scheduled to occur 6 months from the date of the Encounter, up to a maximum of 20 appointments. The data comes from all [place] treatment facilities. Appointment Date/Time Appointment Type Appointme nt Facility Name May 11, 2024 01:00 PM AMBULATORY - NONE [facility] May 11, 2024 02:15 PM AMBULATORY - NONE [facility] May 11, 2024 02:30 PM AMBULATORY - MEDICINE [facility] May 17, 2024 02:15 PM AMBULATORY - NONE [facility] May 22, 2024 03:30 PM AMBULATORY - NONE [facility] May 28, 2024 01:30 PM AMBULATORY - NONE [facility] Jun 07, 2024 11:15 AM AMBULATORY - REHAB MEDICIN E [facility] Jun 07, 2024 01:00 PM AMBULATORY - MEDICINE [facility] Jul 13, 2024 11:30 AM AMBULATORY - MEDICINE [facility] Jul 13, 2024 12:00 PM AMBULATORY - MEDICINE [facility] Jul 17, 2024 04:02 PM AMBULATORY - MEDICINE [facility] Jul 25, 2024 01:00 PM AMBULATORY - MEDICINE [facility] Jul 26, 2024 10:00 AM AMBULATORY - MEDICINE [facility] Jul 27, 2024 03:14 PM AMBULATORY - MEDICINE [facility] Aug 01, 2024 10:15 AM AMBULATORY - [facility] Aug 02, 2024 11:30 AM AMBULATORY - MEDICINE [facility] Aug 02, 2024 11:31 AM AMBULATORY - MEDICINE [facility] Aug 10, 2024 11:00 AM AMBULATORY - MEDICINE [facility] Aug 10, 2024 11:31 AM AMBULATORY - MEDICINE [facility] Aug 10, 2024 11:59 AM AMBULATORY - [facility] Lab Results: +/- 30 days of the encounter This section includes the Chemistry and Hematology Lab Results on record with [place] for the patient. Radiology Reports and Pathology Reports are provided separately, in subsequent sections. Lab Results This section contains the Chemistry/Hematology Results that were resulted 30 days before or 30 daysafter the date of the Encounter. Date/Time Source Result Type Result - Unit Interpretation Reference Range Specimen Type Comment May 11, 2024 02:[address] [facility] TSH W/ REFLEX FT4 (STL) PLASMA Specimen Type: PLASMA No comment entered. Ordering Provider: TONY SIMMONS Report Released Date/Time: Jan 05, 2024 02:09 PM Reporting Lab: [place] [address] [facility] [address] Performing Lab: [address] [address] TSH 1.974 u[IU]/mL 0.47-5 May 11, 2024 02:[address] [facility] APTT PLASMA Specimen Type: PLASM A No comment entered. Ordering Provider: BAL CAREY Report Released Date/Time: May 11, 2024 02:03 PM Reporting Lab: [address] [address] Performing Lab: [address] [address] APTT 28.7 s 26.7-39.9 May 11, 2024 02:[address] [facility] PT/INR NEW (STL-MA) PLASMA Specimen Type: PLAS MA No comment entered. Ordering Provider: BAL CAREY Report Released Date/Time: May 11, 2024 02:03 PM Reporting Lab: [address] [address] Performing Lab: [address] [address] PROTIME 12.1 s 9.4-12.5 INR VALUE 1.1 {INR} May 11, 2024 02:[address] [facility] HEP B CORE AB TOTAL. (STL) SERUM Specimen Typ e: SERUM No comment entered. Ordering Provider: BAL CAREY Report Released Date/Time: May 11, 2024 02:18 PM Reporting Lab: [address] [address] Performing Lab: [address] [address] HEP B CORE AB TOTAL. (STL) Nonreactive N onreactive May 11, 2024 02:[address] [facility] COMPREHENSIVE METABOLIC PANEL PLASMA Specimen Type: PLASMA Comment: No hemolysis noted. Ordering Provider: BAL CAREY Report Released Date/Time: May 11, 2024 02:03 PM Reporting Lab: [address] [address] Performing Lab: [address] [address] CREATININE 1.06 mg/dL 0.7-1.3 UREA NITROGEN 20.5 [...] 76.9 >60 May 11, 2024 02:[address] [facility] PROTEIN ELECTROPHORESIS BLOOD SERUM Specimen Type: SERUM Comment: Reference Range: None Detected normalcy status - Abnormal normalcy status - Abnormal NOTE: THIS RESULT IS FLAGGED ABNORMAL Evaluation reveals a restricted band (M-spike) migrating in the gamma globulin region. If not already requested, Immunofixation should be considered. Test Performed by [facility], [email or web address] [facility], [address] [place], [place] Tristin Iyer M.D., Ph.D., Director of Laboratories , CLIA [id number] PREVIOUS SUGAR: IgG Nathalie Ordering Provider: TONY SIMMONS Report Released Date/Time: Jan 05, 2024 02:08 PM Reporting Lab: [facility] [address] [place] [phone] Performing Lab: [address] ALPHA-1 GLOBULIN(SO-PB-STL) 0.3 g/dL 0.2 -0.3 ALPHA-2 GLOBULIN(SO-PB-STL) 0.8 g/dL 0.5 -0.9 BETA 1 GLOBULIN(SO-PB-STL) 0.4 g/dL 0.4- 0.6 GAMMA GLOBULIN (SO-PB-STL) 2.0 g/dL H 0.8- 1.7 TOTAL PROTEIN (SO-PB-STL) 7.9 g/dL 6.1-8 .1 ALBUMIN(ELECTROPHORESIS 4.1 g/dL 3.8-4.8 BETA 2 GLOBULIN (SO-PB) 0.3 g/dL 0.2-0.5 INTERPRETATION (STL-PB) SEE NOTE ABNORMAL PROTEIN BAND 1 (SO-PB-STL) 1.2 g/dL H May 11, 2024 02:19 PM [facility] IGM (STL) PLASMA Specimen Type: PLASM A Comment: No hemolysis noted. Ordering Provider: TONY SIMMONS Report Released Date/Time: Jan 05, 2024 02:08 PM Reporting Lab: [facility] [address] [facility] [address] Performing Lab: [facility] [address] [place] [phone] IGM (STL) 117 mg/dL 22-240 May 11, 2024 02:[address] [facility] IGA (STL) PLASMA Specimen Type: PLASM A Comment: No hemolysis noted. Ordering Provider: TONY SIMMONS Report Released Date/Time: Jan 05, 2024 02:08 PM Reporting Lab: [facility] [address] [place] [phone] Performing Lab: [address] [address] IGA (STL) 117 mg/dL 63-484 May 11, 2024 02:[address] [facility] KAPPA/LAMBDA FREE LC PANEL (STL-PB) SERUM Spe cimen Type: SERUM No comment entered. Ordering Provider: TONY SIMMONS Report Released Date/Time: Jan 05, 2024 02:08 PM Reporting Lab: [facility] [address] [facility] [address] Performing Lab: [facility] [address] [place] [phone] KAPPA FREE LC (STL) 92.4 mg/L H 2.4-20.7 LAMBDA FREE LC (STL) 25.6 mg/L 4.2-27.7 KAPPA/LAMBDA RATIO (STL) 3.61 H 0.22-1. 74 May 11, 2024 02:[address] [facility] IGG (STL) PLASMA Specimen Type: PLASM A Comment: No hemolysis noted. Ordering Provider: TONY SIMMONS Report Released Date/Time: Jan 05, 2024 02:08 PM Reporting Lab: [facility] [address] [facility] [address] Performing Lab: [facility] [address] [facility] [address] IGG (STL) 2162 mg/dL H 540-1822 May 11, 2024 02:[address] [facility] MAGNESIUM PLASMA Specimen Type: PLASM A Comment: No hemolysis noted. Ordering Provider: TONY SIMMONS Report Released Date/Time: Jan 05, 2024 02:09 PM Reporting Lab: [address] [address] Performing Lab: [address] [address] MAGNESIUM 1.9 mg/dL 1.6-2.6 May 11, 2024 02:[address] [facility] PHOSPHOROUS PLASMA Specimen Type: PLASM A Comment: No hemolysis noted. Ordering Provider: TONY SIMMONS Report Released Date/Time: Jan 05, 2024 02:09 PM Reporting Lab: [address] [address] Performing Lab: [address] [address] PHOSPHOROUS 2.5 mg/dL 2.3-4.7 May 11, 2024 02:[address] [facility] COMPREHENSIVE METABOLIC PANEL PLASMA Specimen Type: PLASMA Comment: No hemolysis noted. Ordering Provider: TONY SIMMONS Report Released Date/Time: Jan 05, 2024 02:08 PM Reporting Lab: [address] [address] Performing Lab: [address] [address] CREATININE 1.04 mg/dL 0.7-1.3 UREA NITROGEN 19.6 [...] 78.7 >60 May 11, 2024 02:19 PM [facility] CBC BLOOD Specimen Type: BLOOD No comment entered. Ordering Provider: TONY SIMMONS Report Released Date/Time: Jan 05, 2024 02:08 PM Reporting Lab: [facility] [address] [facility] [address] Performing Lab: [address] [address] WBC 4.5 10*3/uL 3.6-11.2 RBC 4.26 10*6/uL [...] 10*3/uL 2.10-8.00 Apr 23, 2024 11:[address] [facility] GLUCOSE,BLOOD-poct (STL) BLOOD Specimen Type: BLOOD Comment: Test Performed by: [id number] Meter #: [id number] Ordering Provider: SUKHJINDER CHAHAL Report Released Date/Time: Apr 23, 2024 11:43 AM Reporting Lab: [facility] [address] [facility] [address] Performing Lab: [facility] [address] [facility] [address] GLUCOSE,BLOOD-poct (STL) 117 mg/dL H 72-99 Social History: Smoking Status (Most current) and Tobacco Use (All prior to encounter date) This section includes the most current, and the historical, smoking and tobacco- related health factors from the [place] facility where the Encounter took place. Current Smoking Status This section includes the most current smoking, or tobacco-related health factor, from the [place] facility where the Encounter took place. Date/Time Current Smoking Status Comment Facil ity Jan 20, 2023 03:49 PM [place] FORMER USER [facility] Tobacco Use History This section includes a history of the smoking, or tobacco-related health factors, that were collected on or before the date of the Encounter. The data comes from the [place] facility where the Encounter took place. Date/Time Smoking Status/Tobacco Use Comment F acility Jan 20, 2023 03:49 PM [place]-TOBACCO QUIT 15 YRS OR MORE [facility] Feb 06, 2021 04:28 PM [place]-TOBACCO FORMER USER [facility] Feb 06, 2021 04:28 PM [place]-TO[place]AC[place] QU[place] 15 YRS OR MORE [facility] Radiology Reports: +/- 30 days of the [...] the Encounter. The data comes from all [place] treatment facilities. Date/Time Radiology Report Provider Source May 28, 2024 06:00 AM MRI ABDOMEN W/O&W CONT: ABRAHAM HAWK [id number] -1955 M Exm Date: MAY 28, 2024@06:00 Req Phys: CRYSTAL MASSEY Loc: [facility]-HEP LIVER (Req'g Loc) Img Loc: OUTSIDE [facility]-MRI Service: Unknown (Case [id number] COMPLETE) MRI ABDOMEN W/O&W CONT (MRI Detailed) CPT:92153 Contrast Media : Non-ionic Iodinated Reason for Study: OUTSIDE STUDY Clinical History: Report Status: Electronically Filed Date Reported: JUN 11, 2024 Report: This study was performed outside the [place] in another facility and images were uploaded into [employer]. The report has been scanned into [employer]. In order to upload images a case number was needed, therefore this is an administrative report. Impression: This study was performed [place] the [place] in [place] facility and images were uploaded into [facility]. The report has been scanned into [employer]. 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 COMPLETE) MRI 3D RENDERING W/O INDEPENDENT (MRI Detailed) CPT:78637 Clinical History: Responsible Attending: Tony Friedman Attending Contact Number: [phone] Resident Contact Number: Does your patient have [...] 23, 2024 Date Verified: MAY 23, 2024 [place] E-Sig:/ES/EUGENIE ALAN MD Report: Multiplanar, multisequence MRI [...] Primary Interpreting Staff: EUGENIE ALAN MD, Radiologist ([place]) /RAMONE LOWE [facility] Apr 23, 2024 11:44 AM PET/CT TUMOR IMAGING (SKULL TO MID-THIGH)-P: ABRAHAM HAWK [id number] -1955 M Exm Date: APR 23, 2024@11:44 Req Phys: TAMIKA CARRION Loc: [facility]-NUCLEAR MEDICINE PET SCAN 2 Img Loc: [facility]-PET-CT Service: Unknown [facility], [address] [place] [address] (Case [id number] COMPLETE) PET/CT TUMOR SKULL BASE TO MID-T(NM Detailed) CPT:72105 CPT Modifiers : PS PET TUMOR SUBSQ TX STRATEGY 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 Report: PATIENT NAME: ABRAHAM HAWK. CASE #: [id number], [id number]. PROCEDURE: PET/CT study from the vertex to [...] lytic osseous lesion is noted within the [id number]. Multilevel degenerative changes are noted throughout the [...] Alcides Leija MD (PET/CT fellow). I, Romana Pack, have reviewed the images and report and concur with these findings. Primary Diagnostic Code: SIGNIFICANT ABNORMALITY, ATTN NEEDED Primary Interpreting Staff: ROMANA PACK M.D., STAFF PHYSICIAN - DIAGNOSTIC IMAGING ([place]) /PFT ROMANA PACK [facility] Encounter Notes: All associated encounter notes This section contains the clinical notes associated to the Encounter. Date/Time Encounter Note(s) Provider Source May 02, 2024 02:06 PM AUDIOLOGY FREIGHT BROKER AGENT NOTE: LOCAL TITLE: HEARING AIDS STL STANDARD TITLE: AUDIOLOGY FREIGHT BROKER AGENT NOTE DATE OF NOTE: MAY 02, 2024@14:06 ENTRY DATE: MAY 02, 2024@14:06:32 AUTHOR: BEBO PERALES COSIGNER: NATHEN WATSON URGENCY: STATUS: COMPLETED SUBJECT: audio HEARING AIDS STL Has ADDENDA Hearing aid check performed today: CASE HISTORY: Pt wore the following hearing devices: 06/02/21 AUDIOLOGY PURE C&G T 7AX MARIN-R R [id number] 06/02/21 AUDIOLOGY PURE C&G T 7AX MARIN-R L [id number] States he recently sent the right aid in for repair and the aids no longer BT pair to his Android phone. He also reports he notices aids get louder when he bends over, but he attributes this to his Eustachian Tube dysfunction. CLEANING/REPAIRS: General cleaning. Listening check OK. PROGRAMMING: Restored settings and e2e connectivity. Updated firmware of left aid. Pt confirmed comfort with volume, balance between ears, and clarity. CONNECTIVTY: Re-paired aids to pt's phone and [employer] jina. Reviewed jina functions. Confirmed connectivity by streaming audio from pt's phone. DISPOSITION: Pt left clinic wearing both aids. RECOMMENDATIONS: 1. Full-time hearing aid use. 2. Contact Audiology Clinic [phone] for repairs and/or adjustments as needed. /loly/ BEBO PERALES Renovation Plant Supervisor Signed: 05/02/2024 14:11 /loly/ Karla FISHER Staff Welder Pipe Making, Surgery Service Cosigned: 05/02/2024 15:20 05/02/2024 ADDENDUM STATUS: COMPLETED The information above has been reviewed by this provider. I am in agreement with the action plan as outlined. /loly/ Karla FISHER Staff Welder Pipe Making, Surgery Service Signed: 05/02/2024 15:20 [facility]
--- OUTSIDE RECORDS SUMMARY | 2024-10-08 17:14 | XMS_ITS ---
Author Name [facility] [place] [facility] [place] Address [address] [place] [address] Care Team Providers Care Radiology Technician Name Role Phone SUKHJINDER CHAHAL Primary Care [...] SUPPL EMENT Nov 25, 2021 PLAN G [id number] [phone] ELLEN HAWK VID PATIENT AARP MED SUPP MEDIGAP PLAN G MEDIC ARE SUPPL EMENT Nov 25, 2021 PLAN G [id number] [phone] CARINE,DA VID PATIENT MEDICARE (WNR) MEDICARE (M) PART B Sep 25, 2021 PART B [id number] ELLEN HAWK VID PATIENT MEDICARE (WNR) MEDICARE (M) PART A Aug 25, 2021 PART A [id number] ELLEN HAWKD PATIENT Selected Encounter This section includes the information on record at [place] for the Encounter. 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 Date/Time Primary/Secondary Diagnosis Diagnosis Name Provider Source Aug 15, 2024 12:33 PM Diagnosis for Length of Stay Chronic or unspecified duodenal ulcer with hemorrhage [facility] Aug 15, 2024 12:33 PM SECONDARY Acute posthemorrhagic anemia [facility] Aug 15, 2024 12:33 PM SECONDARY Adverse effect of antineoplastic and immunosup drugs, init [facility] Aug 15, 2024 12:33 PM SECONDARY Body mass index [BMI] 20.0-20.9, adult [facility] Aug 15, 2024 12:33 PM SECONDARY Cannabis use, unspecified, uncomplicated [facility] Aug 15, 2024 12:33 PM SECONDARY Esophagitis, unspecified without bleeding [facility] Aug 15, 2024 12:33 PM SECONDARY Gastric ulcer, unsp as acute or chronic, w/o hemor or perf [facility] Aug 15, 2024 12:33 PM SECONDARY Liver cell carcinoma [facility] Aug 15, 2024 12:33 PM SECONDARY Malignant neoplasm of nasopharynx, unspecified [facility] Aug 15, 2024 12:33 PM SECONDARY Other ascites [facility] Aug 15, 2024 12:33 PM SECONDARY Other cirrhosis of liver [facility] Aug 15, 2024 12:33 PM SECONDARY Other diseases of stomach and duodenum [facility] Aug 15, 2024 12:33 PM SECONDARY Other secondary thrombocytopenia [facility] Aug 15, 2024 12:33 PM SECONDARY Personal history of other infectious and parasitic diseases [facility] Aug 15, 2024 12:33 PM SECONDARY Portal hypertension [facility] Aug 15, 2024 12:33 PM SECONDARY Secondary esophageal varices with bleeding [facility] Aug 15, 2024 12:33 PM SECONDARY Unspecified severe protein-calorie malnutrition [facility] Plan of Treatment: Future Appointments (+ 6 months) and Future Tests (+/- 45 days) The Plan of Treatment section includes future care activities for the patient from [facility] [place] [facility] This section includes future appointments and future orders which are active, pending or scheduled. Future Appointments This section includes appointments that were scheduled to occur 6 months from the date of the Encounter, up to a maximum of 20 appointments. The data comes from all [facility]. Appointment Date/Time Appointment Type Appointme nt Facility Name Aug 16, 2024 10:00 AM AMBULATORY - MEDICINE [facility] Aug 17, 2024 08:30 AM AMBULATORY - MEDICINE [facility] Aug 17, 2024 09:00 AM AMBULATORY - MEDICINE [facility] Aug 17, 2024 09:30 AM AMBULATORY - MEDICINE [facility] Aug 23, 2024 12:00 PM AMBULATORY - NONE [facility] Aug 31, 2024 02:00 PM AMBULATORY - MEDICINE [facility] Sep 07, 2024 11:00 AM AMBULATORY - MEDICINE [facility] Sep 07, 2024 01:00 PM AMBULATORY - MEDICINE [facility] Oct 15, 2024 03:00 PM AMBULATORY - SURGERY [facility] Oct 19, 2024 02:00 PM AMBULATORY - NONE [facility] Active, Pending, and Scheduled Orders This section includes a listing of several types of active, pending, and scheduled orders, including clinic medications orders, diagnostic test orders, procedure orders and consult orders; where the start date of the order is 45 days before the date of the Encounter or 45 days after the date of theEncounter. The data comes from all [facility]. Test Date/Time Test Type Test Details Facility Name Jul 17, 2024 12:00 AM Laboratory - Blood Bank Order FRESH FROZEN PLASMA - LAB VBECS - NO SPECIMEN REQUIRED SP [facility] Jul 17, 2024 12:00 AM Laboratory - Blood Bank Order RED BLOOD CELLS - LAB VBECS - NO SPECIMEN REQUIRED [facility] Jul 17, 2024 06:13 PM Laboratory - Blood Bank Order TYPE & SCREEN - LAB BLOOD [facility] Jul 17, 2024 06:13 PM Laboratory - Blood Bank Order DIRECT ANTIGLOBULIN TEST - LAB BLOOD STAT [facility] Jul 18, 2024 12:00 AM Laboratory - Blood Bank Order PLATELETS - LAB VBECS - NO SPECIMEN REQUIRED [facility] Aug 10, 2024 12:00 AM Laboratory - Blood Bank Order RED BLOOD CELLS - LAB VBECS - NO SPECIMEN REQUIRED JOANN [facility] Aug 10, 2024 02:00 PM Laboratory - Blood Bank Order TYPE & SCREEN - LAB BLOOD [facility] Aug 10, 2024 05:43 PM Laboratory - Chemistry Order LIPASE GREEN LI/HEP BLD/PLAS PLASMA STAT I ONCE [facility] Aug 10, 2024 05:44 PM Laboratory - Microbiology Order BLOOD CULT (SET 2) B D BLD. BOTTLE (SET 2) BLOOD JOANN I NOW [facility] Aug 11, 2024 02:00 AM Laboratory - Chemistry Order CBC BLOOD [facility] Aug 14, 2024 02:00 AM Laboratory - Chemistry Order CBC BLOOD [facility] Aug 15, 2024 02:00 AM Laboratory - Chemistry Order CBC BLOOD [facility] Aug 16, 2024 12:00 AM Laboratory - Chemistry Order CBC BLOOD [facility] Aug 16, 2024 08:00 PM Laboratory - Chemistry Order CBC BLOOD [facility] Aug 17, 2024 08:00 PM Laboratory - Chemistry Order CBC BLOOD [facility] Lab Results: +/- 30 days of [...] Type Comment Sep 07, 2024 12:39 PM [facility] COMPREHENSIVE METABOLIC PANEL PLASMA Specimen Type: PLASMA Comment: No hemolysis noted. Ordering Provider: TONY FELICIANO Report Released Date/Time: Aug 31, 2024 02:42 PM Reporting Lab: [address] [address] Performing Lab: [address] [address] CREATININE 0.87 mg/dL 0.7-1.3 UREA NITROGEN 24.5 [...] 94.0 >60 Sep 07, 2024 12:39 PM [facility] CBC BLOOD Specimen Type: BLOOD No comment entered. Ordering Provider: TONY FELICIANO Report Released Date/Time: Aug 31, 2024 02:42 PM Reporting Lab: [facility] [address] [facility] [address] Performing Lab: [address] [address] WBC 5.1 10*3/uL 3.6-11.2 RBC 3.44 10*6/uL [...] 10*3/uL 2.10-8.00 Sep 07, 2024 12:39 PM [facility] ALPHA-FETOPROTEIN(STL-PB) SERUM Specimen Type : SERUM No comment entered. Ordering Provider: CRYSTAL MASSEY Report Released Date/Time: Sep 07, 2024 11:59 AM Reporting Lab: [facility] [address] [facility] [address] Performing Lab: [address] [address] ALPHA-FETOPROTEIN(STL-PB) 15.01 ng/mL H 1- 8.78 Aug 31, 2024 02:04 PM [facility] COMPREHENSIVE METABOLIC PANEL PLASMA Specimen Type: PLASMA Comment: No hemolysis noted. Ordering Provider: TONY FELICIANO Report Released Date/Time: Aug 27, 2024 12:35 PM Reporting Lab: [place] [id number] [facility] [address] Performing Lab: [address] [address] CREATININE 0.90 mg/dL 0.7-1.3 UREA NITROGEN 26.4 [...] 93.6 >60 Aug 31, 2024 02:04 PM [facility] CBC BLOOD Specimen Type: BLOOD No comment entered. Ordering Provider: TONY FELICIANO Report Released Date/Time: Aug 27, 2024 12:35 PM Reporting Lab: [address] [address] Performing Lab: [address] [address] WBC 4.7 10*3/uL 3.6-11.2 RBC 3.54 10*6/uL [...] 10*3/uL 2.10-8.00 Aug 17, 2024 03:34 PM [facility] TSH W/ REFLEX FT4 (STL) PLASMA Specimen Type: PLASMA No comment entered. Ordering Provider: TONY FELICIANO Report Released Date/Time: Aug 10, 2024 12:01 PM Reporting Lab: [address] [address] Performing Lab: [address] [address] TSH 4.570 u[IU]/mL 0.47-5 Aug 17, 2024 03:34 PM [facility] COMPREHENSIVE METABOLIC PANEL PLASMA Specimen Type: PLASMA Comment: No hemolysis noted. Ordering Provider: TONY FELICIANO Report Released Date/Time: Aug 10, 2024 12:01 PM Reporting Lab: [address] [address] Performing Lab: [address] [address] CREATININE 0.85 mg/dL 0.7-1.3 UREA NITROGEN 11.5 [...] 95.2 >60 Aug 17, 2024 03:34 PM [facility] CBC BLOOD Specimen Type: BLOOD Comment: No Clots Ordering Provider: TONY FELICIANO Report Released Date/Time: Aug 10, 2024 12:01 PM Reporting Lab: [address] [address] Performing Lab: [address] [address] WBC 5.0 10*3/uL 3.6-11.2 RBC 2.83 10*6/uL [...] 4.9 1.0-7.0 Aug 15, 2024 07:20 AM [facility] CBC BLOOD Specimen Type: BLOOD Comment: No clots detected in specimen. Ordering Provider: CASH CLOUD Report Released Date/Time: Aug 12, 2024 01:47 PM Reporting Lab: [address] [address] Performing Lab: [address] [address] WBC 4.9 10*3/uL 3.6-11.2 RBC 2.93 10*6/uL [...] 10*3/uL 2.10-8.00 Aug 15, 2024 04:54 AM [facility] GLUCOSE,BLOOD-poct (STL) BLOOD Specimen Type: BLOOD Comment: Test Performed by: [id number] Meter #: [id number] Ordering Provider: DEIRDRE WILD Report Released Date/Time: Aug 15, 2024 05:21 AM Reporting Lab: [address] [address] Performing Lab: [place] [address] [facility] [address] GLUCOSE,BLOOD-poct (STL) 112 mg/dL H 72-99 Aug 14, 2024 08:30 PM [facility] CRP PLASMA Specimen Type: PLASM A No comment entered. Ordering Provider: CASH CLOUD Report Released Date/Time: Aug 12, 2024 10:14 AM Reporting Lab: [place] [address] [facility] [address] Performing Lab: [address] [address] CRP 0.7 mg/dL H 0-0.5 Aug 14, 2024 08:30 PM [facility] CBC BLOOD Specimen Type: BLOOD No comment entered. Ordering Provider: GILSON BOWENS Report Released Date/Time: Aug 10, 2024 04:01 PM Reporting Lab: [address] [address] Performing Lab: [address] [address] WBC 4.6 10*3/uL 3.6-11.2 RBC 2.83 10*6/uL [...] 10*3/uL 2.10-8.00 Aug 14, 2024 07:54 PM [facility] GLUCOSE,BLOOD-poct (STL) BLOOD Specimen Type: BLOOD Comment: Test Performed by: [id number] Meter #: [id number] Ordering Provider: DEIRDRE WILD Report Released Date/Time: Aug 14, 2024 08:15 PM Reporting Lab: [address] [address] Performing Lab: [address] [address] GLUCOSE,BLOOD-poct (STL) 112 mg/dL H 72-99 Aug 14, 2024 04:10 PM [facility] GLUCOSE,BLOOD-poct (STL) BLOOD Specimen Type: BLOOD Comment: Test Performed by: [id number] Meter #: [id number] Ordering Provider: DEIRDRE WILD Report Released Date/Time: Aug 14, 2024 04:43 PM Reporting Lab: [address] [address] Performing Lab: [address] [address] GLUCOSE,BLOOD-poct (STL) 115 mg/dL H 72-99 Aug 14, 2024 02:05 PM [facility] COMPREHENSIVE METABOLIC PANEL PLASMA Specimen Type: PLASMA Comment: No hemolysis noted. Ordering Provider: GILSON BOWENS Report Released Date/Time: Aug 14, 2024 06:56 AM Reporting Lab: [address] [address] Performing Lab: [address] [address] CREATININE 0.75 mg/dL 0.7-1.3 UREA NITROGEN 9.3 [...] 98.9 >60 Aug 14, 2024 02:05 PM [facility] CBC BLOOD Specimen Type: BLOOD Comment: No platelet clots or clumping detected. Ordering Provider: GILSON BOWENS Report Released Date/Time: Aug 10, 2024 04:01 PM Reporting Lab: [address] [address] Performing Lab: [address] [address] WBC 4.6 10*3/uL 3.6-11.2 RBC 3.06 10*6/uL [...] 10*3/uL 2.10-8.00 Aug 14, 2024 10:12 AM [facility] GLUCOSE,BLOOD-poct (STL) BLOOD Specimen Type: BLOOD Comment: Test Performed by: [id number] Meter #: [id number] Ordering Provider: DEIRDRE WILD Report Released Date/Time: Aug 14, 2024 10:13 AM Reporting Lab: [facility] [address] [place] [address] Performing Lab: [address] [address] GLUCOSE,BLOOD-poct (STL) 112 mg/dL H 72-99 Aug 14, 2024 09:20 AM [facility] PT/INR NEW (STL-MA) PLASMA Specimen Type: PLAS MA No comment entered. Ordering Provider: GILSON BOWENS Report Released Date/Time: Aug 14, 2024 09:06 AM Reporting Lab: [place] [address] Performing Lab: [place] [phone] PROTIME 13.6 s H 9.4-12.5 INR VALUE 1.2 {INR} Aug 14, 2024 06:51 AM [facility] CBC BLOOD Specimen Type: BLOOD No comment entered. Ordering Provider: CASH CLOUD Report Released Date/Time: Aug 12, 2024 01:47 PM Reporting Lab: [place] [address] [place] [phone] Performing Lab: [place] [phone] WBC 3.8 10*3/uL 3.6-11.2 RBC 2.56 10*6/uL [...] 10*3/uL 2.10-8.00 Aug 14, 2024 06:03 AM [facility] GLUCOSE,BLOOD-poct (STL) BLOOD Specimen Type: BLOOD Comment: Test Performed by: [id number] Meter #: [id number] Ordering Provider: DEIRDRE WILD Report Released Date/Time: Aug 14, 2024 06:07 AM Reporting Lab: [address] [address] Performing Lab: [address] [address] GLUCOSE,BLOOD-poct (STL) 114 mg/dL H 72-99 Aug 13, 2024 09:11 PM [facility] GLUCOSE,BLOOD-poct (STL) BLOOD Specimen Type: BLOOD Comment: Test Performed by: [id number] Meter #: [id number] Ordering Provider: DEIRDRE WILD Report Released Date/Time: Aug 13, 2024 09:40 PM Reporting Lab: [address] [address] Performing Lab: [address] [address] GLUCOSE,BLOOD-poct (STL) 160 mg/dL H 72-99 Aug 13, 2024 07:10 PM [facility] COMPREHENSIVE METABOLIC PANEL PLASMA Specimen Type: PLASMA Comment: No hemolysis noted. Ordering Provider: GILSON BOWENS Report Released Date/Time: Aug 14, 2024 07:03 AM Reporting Lab: [address] [address] Performing Lab: [address] [address] CREATININE 0.75 mg/dL 0.7-1.3 UREA NITROGEN 10.3 [...] 98.9 >60 Aug 13, 2024 07:10 PM [facility] CRP PLASMA Specimen Type: PLAS MA No comment entered. Ordering Provider: CASH CLOUD Report Released Date/Time: Aug 12, 2024 10:14 AM Reporting Lab: [address] [address] Performing Lab: [address] [address] CRP 0.7 mg/dL H 0-0.5 Aug 13, 2024 07:10 PM [facility] CBC BLOOD Specimen Type: BLOOD No comment entered. Ordering Provider: GILSON BOWENS Report Released Date/Time: Aug 10, 2024 04:01 PM Reporting Lab: [address] [address] Performing Lab: [address] [address] WBC 5.3 10*3/uL 3.6-11.2 RBC 2.67 10*6/uL [...] 10*3/uL 2.10-8.00 Aug 13, 2024 04:35 PM [facility] GLUCOSE,BLOOD-poct (STL) BLOOD Specimen Type: BLOOD Comment: Test Performed by: [id number] Meter #: [id number] Ordering Provider: DEIRDRE WILD Report Released Date/Time: Aug 13, 2024 05:18 PM Reporting Lab: [address] [address] Performing Lab: [address] [address] GLUCOSE,BLOOD-poct (STL) 113 mg/dL H 72-99 Aug 13, 2024 02:36 PM [facility] CBC BLOOD Specimen Type: BLOOD No comment entered. Ordering Provider: GILSON BOWENS Report Released Date/Time: Aug 10, 2024 04:01 PM Reporting Lab: [address] [address] Performing Lab: [address] [address] WBC 5.8 10*3/uL 3.6-11.2 RBC 2.77 10*6/uL [...] 10*3/uL 2.10-8.00 Aug 13, 2024 11:37 AM [facility] GLUCOSE,BLOOD-poct (STL) BLOOD Specimen Type: BLOOD Comment: Test Performed by: [id number] Meter #: [id number] Ordering Provider: DEIRDRE WILD Report Released Date/Time: Aug 13, 2024 11:38 AM Reporting Lab: [address] [address] Performing Lab: [address] [address] GLUCOSE,BLOOD-poct (STL) 131 mg/dL H 72-99 Aug 13, 2024 08:06 AM [facility] CBC BLOOD Specimen Type: BLOOD Comment: no clot Ordering Provider: CASH CLOUD Report Released Date/Time: Aug 12, 2024 01:47 PM Reporting Lab: [address] [address] Performing Lab: [address] [address] WBC 3.0 10*3/uL L 3.6-11.2 RBC 2.61 [...] 10*3/uL 2.10-8.00 Aug 13, 2024 04:45 AM [facility] GLUCOSE,BLOOD-poct (STL) BLOOD Specimen Type: BLOOD Comment: Test Performed by: [id number] Meter #: [id number] Ordering Provider: DEIRDRE WILD Report Released Date/Time: Aug 13, 2024 06:18 AM Reporting Lab: [place] [address] Performing Lab: [address] [address] GLUCOSE,BLOOD-poct (STL) 139 mg/dL H 72-99 Aug 12, 2024 10:10 PM [facility] GLUCOSE,BLOOD-poct (STL) BLOOD Specimen Type: BLOOD Comment: Test Performed by: [id number] Meter #: [id number] Ordering Provider: DEIRDRE WILD Report Released Date/Time: Aug 12, 2024 10:50 PM Reporting Lab: [address] [address] Performing Lab: [address] [place] [address] GLUCOSE,BLOOD-poct (STL) 105 mg/dL H 72-99 Aug 12, 2024 08:48 PM [facility] CBC BLOOD Specimen Type: BLOOD Comment: SEE PREVIOUS DIFFERENTIAL ON 08/12/24 @ 1807 Ordering Provider: GILSON BOWENS Report Released Date/Time: Aug 10, 2024 04:01 PM Reporting Lab: [address] [address] Performing Lab: [address] [address] WBC 5.0 10*3/uL 3.6-11.2 RBC 2.78 10*6/uL [...] 6.5 1.0-7.0 Aug 12, 2024 08:48 PM [facility] CRP PLASMA Specimen Type: PLASM A No comment entered. Ordering Provider: CASH CLOUD Report Released Date/Time: Aug 12, 2024 10:14 AM Reporting Lab: [address] [address] Performing Lab: [place] [address] [facility] [address] CRP 0.6 mg/dL H 0-0.5 Aug 12, 2024 04:51 PM [facility] GLUCOSE,BLOOD-poct (STL) BLOOD Specimen Type: BLOOD Comment: Test Performed by: [id number] Meter #: [id number] Ordering Provider: DEIRDRE WILD Report Released Date/Time: Aug 12, 2024 05:07 PM Reporting Lab: [place] [phone] Performing Lab: [place] [address] GLUCOSE,BLOOD-poct (STL) 135 mg/dL H 72-99 Aug 12, 2024 02:33 PM [facility] CBC BLOOD Specimen Type: BLOOD No comment entered. Ordering Provider: GILSON BOWENS Report Released Date/Time: Aug 10, 2024 04:01 PM Reporting Lab: [address] [address] Performing Lab: [place] [address] WBC 4.0 10*3/uL 3.6-11.2 RBC 2.56 10*6/uL [...] 10*3/uL 2.10-8.00 Aug 12, 2024 11:51 AM [facility] GLUCOSE,BLOOD-poct (STL) BLOOD Specimen Type: BLOOD Comment: Test Performed by: [id number] Meter #: [id number] Ordering Provider: DEIRDRE WILD Report Released Date/Time: Aug 12, 2024 12:26 PM Reporting Lab: [address] [address] Performing Lab: [address] [address] GLUCOSE,BLOOD-poct (L) 139 mg/dL H 72-99 Aug 12, 2024 07:35 AM [facility] CBC BLOOD Specimen Type: BLOOD Comment: prev diff 08/11/24. Ordering Provider: GILSON BOWENS Report Released Date/Time: Aug 10, 2024 04:01 PM Reporting Lab: [address] [address] Performing Lab: [address] [address] WBC 3.0 10*3/uL L 3.6-11.2 RBC 2.54 [...] 0.00-0. 20 Aug 12, 2024 05:49 AM [facility] GLUCOSE,BLOOD-poct (STL) BLOOD Specimen Type: BLOOD Comment: Test Performed by: [id number] Meter #: [id number] Ordering Provider: DEIRDRE WILD Report Released Date/Time: Aug 12, 2024 05:50 AM Reporting Lab: [address] [address] Performing Lab: [address] [address] GLUCOSE,BLOOD-poct (L) 112 mg/dL H 72-99 Aug 12, 2024 01:45 AM [facility] CBC BLOOD Specimen Type: BLOOD Comment: SEE PREVIOUS DIFFERENTIAL ON 08/12/24 @ [address] [facility] Ordering Provider: GILSON BOWENS Report Released Date/Time: Aug 10, 2024 04:01 PM Reporting Lab: [address] [address] Performing Lab: [address] [address] WBC 2.6 10*3/uL L 3.6-11.2 RBC 2.42 [...] 6.4 1.0-7.0 Aug 11, 2024 09:25 PM [facility] CBC BLOOD Specimen Type: BLOOD No comment entered. Ordering Provider: GILSON BOWENS Report Released Date/Time: Aug 10, 2024 04:01 PM Reporting Lab: [address] [address] Performing Lab: [address] [address] WBC 3.6 10*3/uL 3.6-11.2 RBC 2.54 10*6/uL [...] 10*3/uL 2.10-8.00 Aug 11, 2024 09:17 PM [facility] GLUCOSE,BLOOD-poct (STL) BLOOD Specimen Type: BLOOD Comment: Test Performed by: [id number] Meter #: [id number] Ordering Provider: DEIRDRE WILD Report Released Date/Time: Aug 11, 2024 09:21 PM Reporting Lab: [place] [phone] Performing Lab: [place] [phone] GLUCOSE,BLOOD-poct (STL) 167 mg/dL H 72-99 Aug 11, 2024 04:42 PM [facility] CBC BLOOD Specimen Type: BLOOD No comment entered. Ordering Provider: YVONNE HARRISON Report Released Date/Time: Aug 11, 2024 04:41 PM Reporting Lab: [address] [address] Performing Lab: [address] [address] WBC 4.0 10*3/uL 3.6-11.2 RBC 2.74 10*6/uL [...] 10*3/uL 2.10-8.00 Aug 11, 2024 04:30 PM [facility] GLUCOSE,BLOOD-poct (STL) BLOOD Specimen Type: BLOOD Comment: Test Performed by: [id number] Meter #: [id number] Ordering Provider: DEIRDRE WILD Report Released Date/Time: Aug 11, 2024 06:06 PM Reporting Lab: [address] [address] Performing Lab: [address] [address] GLUCOSE,BLOOD-poct (STL) 95 mg/dL 72-99 Aug 11, 2024 11:08 AM [facility] GLUCOSE,BLOOD-poct (STL) BLOOD Specimen Type: BLOOD Comment: Test Performed by: [id number] Meter #: [id number] Ordering Provider: DEIRDRE WILD Report Released Date/Time: Aug 11, 2024 11:10 AM Reporting Lab: [address] [address] Performing Lab: [address] [address] GLUCOSE,BLOOD-poct (STL) 117 mg/dL H 72-99 Aug 11, 2024 06:00 AM [facility] HEPATIC FUNTION PANEL (STL) PLASMA Specimen Ty pe: PLASMA No comment entered. Ordering Provider: GILSON BOWENS Report Released Date/Time: Aug 10, 2024 04:02 PM Reporting Lab: [address] [address] Performing Lab: [address] [address] PROTEIN 5.4 g/dL L 6-8.6 ALBUMIN 2.6 g/dL L 3.4-5 TOTAL BILIRUBIN 0.8 mg/dL 0.2-1.2 ALKALINE PHOSPHATASE 72 U/L 40-150 AST/SGOT 28 U/L 5-34 ALT/SGPT 10 U/L 8-40 CONJ. BILIRUBIN 0.4 mg/dL 0-0.5 Aug 11, 2024 06:00 AM [facility] IRON/TIBC PROFILE SERUM Specimen Type: SERUM No comment entered. Ordering Provider: GILSON BOWENS Report Released Date/Time: Aug 10, 2024 04:02 PM Reporting Lab: [facility] [address] [place] [phone] Performing Lab: [address] [address] TIBC 263 ug/dL 250-450 TRANSFERRIN 210 mg/dL 163-344 IRON SATURATION 8 L 20-50 IRON 21 ug/dL L 65-175 Aug 11, 2024 06:00 AM [facility] PT/INR NEW (STL-MA) PLASMA Specimen Type: PLAS MA No comment entered. Ordering Provider: GILSON BOWENS Report Released Date/Time: Aug 10, 2024 06:20 PM Reporting Lab: [address] [phone] Performing Lab: [address] [address] PROTIME 15.5 s H 9.4-12.5 INR VALUE 1.4 {INR} Aug 11, 2024 06:00 AM [facility] APTT PLASMA Specimen Type: PLASM A No comment entered. Ordering Provider: GILSON BOWENS Report Released Date/Time: Aug 10, 2024 06:20 PM Reporting Lab: [facility] [address] [place] [phone] Performing Lab: [address] [address] APTT 25.5 s L 26.7-39.9 Aug 11, 2024 06:00 AM [facility] CBC BLOOD Specimen Type: BLOOD No comment entered. Ordering Provider: GILSON BOWENS Report Released Date/Time: Aug 10, 2024 04:01 PM Reporting Lab: [facility] [address] [facility] [address] Performing Lab: [address] [address] WBC 2.4 10*3/uL L 3.6-11.2 RBC 2.42 [...] L 2.10-8.00 Aug 10, 2024 09:00 PM [facility] BASIC METABOLIC PANEL PLASMA Specimen Type: PL ASMA Comment: No hemolysis noted. Ordering Provider: GILSON BOWENS Report Released Date/Time: Aug 10, 2024 04:01 PM Reporting Lab: [facility] [address] [place] [address] Performing Lab: [address] [address] CREATININE 0.84 mg/dL 0.7-1.3 UREA NITROGEN 16.8 mg/dL 9.0-25.0 GLUCOSE 104 mg/dL H 72-99 SODIUM 133 meq/L L 136-145 POTASSIUM 3.5 meq/L 3.5-5 CHLORIDE 103 meq/L 98-107 CARBON DIOXIDE 23 meq/L 22-31 CALCIUM 8.4 mg/dL 8.4-10.4 EGFR (CKD-EPI 2020) 95.6 >60 Aug 10, 2024 09:00 PM [facility] CBC BLOOD Specimen Type: BLOOD No comment entered. Ordering Provider: GILSON BOWENS Report Released Date/Time: Aug 10, 2024 04:01 PM Reporting Lab: [facility] [address] [facility] [address] Performing Lab: [place] [id number] [facility] [address] WBC 4.3 10*3/uL 3.6-11.2 RBC 2.22 10*6/uL [...] 10*3/uL 2.10-8.00 Aug 10, 2024 06:30 PM [facility] MRSA SURVL NARES DNA [...] information for final interpretation. Ordering Provider: GILSON BOWENS Report Released Date/Time: Aug 10, 2024 04:01 PM Reporting Lab: [address] [address] Performing Lab: [address] [address] MRSA SURVL NARES DNA Negative Negative Aug 10, 2024 06:02 PM [facility] GLUCOSE,BLOOD-poct (STL) BLOOD Specimen Type: BLOOD Comment: Test Performed by: [id number] Meter #: [id number] Ordering Provider: YASIR SANZ MD Report Released Date/Time: Aug 10, 2024 06:04 PM Reporting Lab: [address] [address] Performing Lab: [address] [address] GLUCOSE,BLOOD-poct (L) 94 mg/dL 72-99 Aug 10, 2024 02:12 PM [facility] PT/INR NEW (L-MA) PLASMA Specimen Type: PLAS MA No comment entered. Ordering Provider: YASIR SANZ MD Report Released Date/Time: Aug 10, 2024 02:00 PM Reporting Lab: [address] [address] Performing Lab: [address] [address] PROTIME 13.8 s H 9.4-12.5 INR VALUE 1.2 {INR} Aug 10, 2024 02:12 PM [facility] APTT PLASMA Specimen Type: PLASM A No comment entered. Ordering Provider: YASIR SANZ MD Report Released Date/Time: Aug 10, 2024 02:00 PM Reporting Lab: [address] [address] Performing Lab: [address] [address] APTT 20.1 s L 26.7-39.9 Aug 10, 2024 11:30 AM [facility] TSH W/ REFLEX FT4 (STL) PLASMA Specimen Type: PLASMA No comment entered. Ordering Provider: TONY FELICIANO Report Released Date/Time: Aug 02, 2024 12:33 PM Reporting Lab: [address] [address] Performing Lab: [address] [address] TSH 3.991 u[IU]/mL 0.47-5 Aug 10, 2024 11:30 AM [facility] COMPREHENSIVE METABOLIC PANEL PLASMA Specimen Type: PLASMA Comment: No hemolysis noted. Ordering Provider: TONY FELICIANO Report Released Date/Time: Aug 02, 2024 12:33 PM Reporting Lab: [address] [address] Performing Lab: [address] [address] CREATININE 0.82 mg/dL 0.7-1.3 UREA NITROGEN 21.7 [...] 96.3 >60 Aug 10, 2024 11:30 AM [facility] CBC BLOOD Specimen Type: BLOOD No comment entered. Ordering Provider: TONY FELICIANO Report Released Date/Time: Aug 02, 2024 12:33 PM Reporting Lab: [address] [address] Performing Lab: [address] [address] WBC 7.4 10*3/uL 3.6-11.2 RBC 2.81 10*6/uL [...] 0.00-0. 20 Aug 02, 2024 11:53 AM [facility] PROTEIN ELECTROPHORESIS BLOOD SERUM Specimen Type: SERUM Comment: Reference Range: None Detected NOTE: THIS RESULT IS FLAGGED ABNORMAL Evaluation reveals a restricted band (M-spike) migrating in the gamma globulin region. If not already requested, Immunofixation should be considered. Test Performed by [facility], [facility], [address] [place] [address] Tristin Iyer M.D., Ph.D., Director of Laboratories , [place] [id number] PREVIOUS SUGAR: IgG [place] Ordering Provider: TONY FELICIANO Report Released Date/Time: Jul 13, 2024 01:49 PM Reporting Lab: [facility] [address] [facility] [address] Performing Lab: [facility] [id number] [place] [address] ALPHA-1 GLOBULIN(SO-PB-STL) 0.4 g/dL H 0.2 -0.3 [...] g/dL H Aug 02, 2024 11:53 AM [facility] IGA (STL) PLASMA Specimen Type: PLASM A Comment: No hemolysis noted. Ordering Provider: TONY FELICIANO Report Released Date/Time: Jul 13, 2024 01:49 PM Reporting Lab: [facility] [address] [facility] [address] Performing Lab: [facility] [address] [facility] [address] IGA (STL) 113 mg/dL 63-484 Aug 02, 2024 11:53 AM [facility] IGM (STL) PLASMA Specimen Type: PLASM A Comment: No hemolysis noted. Ordering Provider: TONY FELICIANO Report Released Date/Time: Jul 13, 2024 01:49 PM Reporting Lab: [facility] [address] [facility] [address] Performing Lab: [facility] [address] [facility] [address] IGM (STL) 104 mg/dL 22-240 Aug 02, 2024 11:53 AM [facility] IGG (STL) PLASMA Specimen Type: PLASM A Comment: No hemolysis noted. Ordering Provider: TONY FELICIANO Report Released Date/Time: Jul 13, 2024 01:49 PM Reporting Lab: [place] [address] [facility] [address] Performing Lab: [address] [address] IGG (STL) 1898 mg/dL H 540-1822 Aug 02, 2024 11:53 AM [facility] TSH W/ REFLEX FT4 (STL) PLASMA Specimen Type: PLASMA No comment entered. Ordering Provider: TONY FELICIANO Report Released Date/Time: Jul 13, 2024 01:49 PM Reporting Lab: [address] [address] Performing Lab: [address] [address] TSH 2.182 u[IU]/mL 0.47-5 Aug 02, 2024 11:53 AM [facility] KAPPA/LAMBDA FREE LC PANEL (STL-PB) SERUM Spe cimen Type: SERUM No comment entered. Ordering Provider: TONY FELICIANO Report Released Date/Time: Jul 13, 2024 01:49 PM Reporting Lab: [place] [address] [facility] [address] Performing Lab: [address] [address] KAPPA FREE LC (STL) 102.7 mg/L H 2.4-20.7 LAMBDA FREE LC (STL) 32.2 mg/L H 4.2-27.7 KAPPA/LAMBDA RATIO (STL) 3.19 H 0.22-1. 74 Aug 02, 2024 11:53 AM [facility] COMPREHENSIVE METABOLIC PANEL PLASMA Specimen Type: PLASMA Comment: No hemolysis noted. Ordering Provider: TONY FELICIANO Report Released Date/Time: Jul 13, 2024 01:49 PM Reporting Lab: [address] [address] Performing Lab: [address] [address] CREATININE 0.82 mg/dL 0.7-1.3 UREA NITROGEN 12.2 [...] 96.3 >60 Aug 02, 2024 11:53 AM [facility] CBC BLOOD Specimen Type: BLOOD Comment: No Clots in specimen Ordering Provider: TONY FELICIANO Report Released Date/Time: Jul 13, 2024 01:49 PM Reporting Lab: [address] [address] Performing Lab: [address] [address] WBC 2.2 10*3/uL L 3.6-11.2 RBC 3.44 [...] L 2.10-8.00 Aug 01, 2024 10:10 AM [facility] GLUCOSE,BLOOD-poct (STL) BLOOD Specimen Type: BLOOD Comment: Test Performed by: [id number] Meter #: [id number] Ordering Provider: SUKHJINDER CHAHAL Report Released Date/Time: Aug 01, 2024 10:17 AM Reporting Lab: [address] [address] Performing Lab: [address] [address] GLUCOSE,BLOOD-poct (STL) 101 mg/dL H 72-99 Jul 27, 2024 01:54 PM [facility] TROPONIN I PLASMA Specimen Type: PLASM A Comment: No hemolysis noted. Ordering Provider: ELIZABETH COATES Report Released Date/Time: Jul 27, 2024 03:39 PM Reporting Lab: [address] [address] Performing Lab: [address] [address] TROPONIN I 0.011 ng/mL 0-0.033 Jul 27, 2024 01:54 PM [facility] BRAIN NATRIURETIC PEPTIDE PLASMA Specimen Type : PLASMA No comment entered. Ordering Provider: ELIZABETH COATES Report Released Date/Time: Jul 27, 2024 03:39 PM Reporting Lab: [address] [address] Performing Lab: [address] [address] BRAIN NATRIURETIC PEPTIDE 257.2 pg/mL H 0- 100 Jul 27, 2024 01:54 PM [facility] COMPREHENSIVE METABOLIC PANEL PLASMA Specimen Type: PLASMA Comment: No hemolysis noted. Ordering Provider: ELIZABETH COATES Report Released Date/Time: Jul 27, 2024 03:39 PM Reporting Lab: [address] [address] Performing Lab: [address] [address] CREATININE 0.70 mg/dL 0.7-1.3 UREA NITROGEN 7.4 [...] 101.0 >60 Jul 27, 2024 01:54 PM [facility] CBC BLOOD Specimen Type: BLOOD No comment entered. Ordering Provider: ELIZABETH COATES Report Released Date/Time: Jul 27, 2024 03:39 PM Reporting Lab: [address] [address] Performing Lab: [address] [address] WBC 3.2 10*3/uL L 3.6-11.2 RBC 3.12 [...] 10*3/uL 2.10-8.00 Jul 21, 2024 02:00 PM [facility] FOLATE (STL-MA) SERUM Specimen Type: SERUM No comment entered. Ordering Provider: JORJE DENSON Report Released Date/Time: Jul 21, 2024 12:54 PM Reporting Lab: [place] [id number] [facility] [address] Performing Lab: [place] [address] [facility] [address] FOLATE (STL-MA) 9.1 ng/mL 7-20 Jul 21, 2024 02:00 PM [facility] IRON/TIBC PROFILE SERUM Specimen Type: SERUM No comment entered. Ordering Provider: JORJE DENSON Report Released Date/Time: Jul 21, 2024 12:54 PM Reporting Lab: [address] [address] Performing Lab: [address] [address] TIBC 243 ug/dL L 250-450 TRANSFERRIN 194 mg/dL 163-344 IRON SATURATION 20 20-50 IRON 49 ug/dL L 65-175 Jul 21, 2024 02:00 PM [facility] B12 SERUM Specimen Type: SERUM No comment entered. Ordering Provider: JORJE DENSON Report Released Date/Time: Jul 21, 2024 12:54 PM Reporting Lab: [address] [address] Performing Lab: [address] [address] B12 1584 pg/mL H 213-816 Jul 21, 2024 02:00 PM [facility] CBC BLOOD Specimen Type: BLOOD Comment: Manual differential performed 07/20/2024 No clots Ordering Provider: JORJE DENSON Report Released Date/Time: Jul 21, 2024 12:54 PM Reporting Lab: [address] [address] Performing Lab: [address] [address] WBC 5.6 10*3/uL 3.6-11.2 RBC 2.87 10*6/uL [...] H 1.0-7.0 Jul 20, 2024 08:55 PM [facility] PT/INR NEW (STL-MA) PLASMA Specimen Type: PLAS MA No comment entered. Ordering Provider: AURA ZACARIAS Report Released Date/Time: Jul 18, 2024 01:30 PM Reporting Lab: [facility] [address] [facility] [address] Performing Lab: [address] [address] PROTIME 12.8 s H 9.4-12.5 INR VALUE 1.1 {INR} Jul 20, 2024 08:55 PM [facility] BASIC METABOLIC PANEL PLASMA Specimen Type: PL ASMA Comment: No hemolysis noted. Ordering Provider: AURA ZACARIAS Report Released Date/Time: Jul 18, 2024 01:30 PM Reporting Lab: [address] [address] Performing Lab: [address] [address] CREATININE 0.74 mg/dL 0.7-1.3 UREA NITROGEN 15.1 mg/dL 9.0-25.0 GLUCOSE 121 mg/dL H 72-99 SODIUM 130 meq/L L 136-145 POTASSIUM 3.7 meq/L 3.5-5 CHLORIDE 100 meq/L 98-107 CARBON DIOXIDE 20 meq/L L 22-31 CALCIUM 8.5 mg/dL 8.4-10.4 EGFR (CKD-EPI 2020) 99.3 >60 Jul 20, 2024 08:55 PM [facility] CBC BLOOD Specimen Type: BLOOD No comment entered. Ordering Provider: AURA ZACARIAS Report Released Date/Time: Jul 18, 2024 01:30 PM Reporting Lab: [address] [address] Performing Lab: [address] [address] WBC 5.1 10*3/uL 3.6-11.2 RBC 2.90 10*6/uL [...] 10*3/uL 2.10-8.00 Jul 20, 2024 01:13 PM [facility] CBC BLOOD Specimen Type: BLOOD No comment entered. Ordering Provider: AURA ZACARIAS Report Released Date/Time: Jul 18, 2024 01:30 PM Reporting Lab: [facility] [address] [facility] [address] Performing Lab: [facility] [address] [facility] [address] WBC 5.6 10*3/uL 3.6-11.2 RBC 3.11 10*6/uL [...] 10*3/uL 2.10-8.00 Jul 19, 2024 06:42 AM [facility] PT/INR NEW (STL-MA) PLASMA Specimen Type: PLAS MA No comment entered. Ordering Provider: AURA ZACARIAS Report Released Date/Time: Jul 18, 2024 01:30 PM Reporting Lab: [address] [address] Performing Lab: [address] [address] PROTIME 16.4 s H 9.4-12.5 INR VALUE 1.5 {INR} Jul 19, 2024 06:42 AM [facility] BASIC METABOLIC PANEL PLASMA Specimen Type: PL ASMA Comment: No hemolysis noted. Ordering Provider: AURA ZACARIAS Report Released Date/Time: Jul 18, 2024 01:30 PM Reporting Lab: [address] [address] Performing Lab: [address] [address] CREATININE 0.94 mg/dL 0.7-1.3 UREA NITROGEN 23.8 mg/dL 9.0-25.0 GLUCOSE 87 mg/dL 72-99 SODIUM 129 meq/L L 136-145 POTASSIUM 3.4 meq/L L 3.5-5 CHLORIDE 102 meq/L 98-107 CARBON DIOXIDE 20 meq/L L 22-31 CALCIUM 8.1 mg/dL L 8.4-10.4 EGFR (CKD-EPI 2020) 88.9 >60 Jul 19, 2024 06:42 AM [facility] CBC BLOOD Specimen Type: BLOOD No comment entered. Ordering Provider: AURA ZACARIAS Report Released Date/Time: Jul 18, 2024 01:30 PM Reporting Lab: [address] [address] Performing Lab: [address] [address] WBC 5.1 10*3/uL 3.6-11.2 RBC 2.45 10*6/uL [...] H 1.0-7.0 Jul 18, 2024 08:51 PM [facility] CBC BLOOD Specimen Type: BLOOD No comment entered. Ordering Provider: AURA ZACARIAS Report Released Date/Time: Jul 18, 2024 01:30 PM Reporting Lab: [address] [address] Performing Lab: [facility] [address] [facility] [address] WBC 6.2 10*3/uL 3.6-11.2 RBC 2.44 10*6/uL [...] 10*3/uL 2.10-8.00 Jul 18, 2024 04:19 PM [facility] CBC BLOOD Specimen Type: BLOOD No comment entered. Ordering Provider: AURA ZACARIAS Report Released Date/Time: Jul 18, 2024 01:30 PM Reporting Lab: [facility] [address] [place] [address] Performing Lab: [address] [address] WBC 6.1 10*3/uL 3.6-11.2 RBC 2.57 10*6/uL [...] 10*3/uL 2.10-8.00 Jul 18, 2024 06:32 AM [facility] LACTIC ACID (STL-PB) PLASMA Specimen Type: NEIL SMA No comment entered. Ordering Provider: CAMDEN PATTON Report Released Date/Time: Jul 17, 2024 07:38 PM Reporting Lab: [address] [address] Performing Lab: [address] [address] LACTIC ACID (STL-PB) 1.3 mmol/L 0.5-2.0 Jul 18, 2024 06:32 AM [facility] PT/INR NEW (STL-MA) PLASMA Specimen Type: PLAS MA No comment entered. Ordering Provider: CAMDEN PATTON Report Released Date/Time: Jul 17, 2024 07:38 PM Reporting Lab: [address] [address] Performing Lab: [address] [address] PROTIME 19.1 s H 9.4-12.5 INR VALUE 1.7 {INR} Jul 18, 2024 06:32 AM [facility] CBC BLOOD Specimen Type: BLOOD Comment: HGB Called to : Dr. Posadas MOD at: [id number] on: 07/18/24 by: [id number] Critical Verbal Readback Performed Ordering Provider: CAMDEN PATTON Report Released Date/Time: Jul 17, 2024 07:38 PM Reporting Lab: [address] [address] Performing Lab: [facility] [address] [facility] [address] WBC 7.0 10*3/uL 3.6-11.2 RBC 2.04 10*6/uL [...] 10*3/uL 2.10-8.00 Jul 18, 2024 06:32 AM [facility] MAGNESIUM PLASMA Specimen Type: PLASM A Comment: No hemolysis noted. Ordering Provider: CAMDEN PATTON Report Released Date/Time: Jul 17, 2024 07:38 PM Reporting Lab: [facility] [address] [facility] [address] Performing Lab: [address] [address] MAGNESIUM 1.5 mg/dL L 1.6-2.6 Jul 18, 2024 06:32 AM [facility] VANCOMYCIN (STL) PLASMA Specimen Type: PLASM A No comment entered. Ordering Provider: CAMDEN PATTON Report Released Date/Time: Jul 17, 2024 07:38 PM Reporting Lab: [address] [address] Performing Lab: [facility] [address] [facility] [address] VANCOMYCIN (STL) 5.0 ug/mL L 10-15 Jul 18, 2024 06:32 AM [facility] PHOSPHOROUS PLASMA Specimen Type: PLASM A Comment: No hemolysis noted. Ordering Provider: CAMDEN PATTON Report Released Date/Time: Jul 17, 2024 07:38 PM Reporting Lab: [address] [address] Performing Lab: [address] [address] PHOSPHOROUS 2.2 mg/dL L 2.3-4.7 Jul 18, 2024 06:32 AM [facility] COMPREHENSIVE METABOLIC PANEL PLASMA Specimen Type: PLASMA Comment: No hemolysis noted. Ordering Provider: CAMDEN PATTON Report Released Date/Time: Jul 17, 2024 07:38 PM Reporting Lab: [address] [address] Performing Lab: [address] [address] CREATININE 1.08 mg/dL 0.7-1.3 UREA NITROGEN 40.5 [...] 75.2 >60 Jul 18, 2024 12:05 AM [facility] HGB,HCT,PLT BLOOD Specimen Type: BLOOD No comment entered. Ordering Provider: ROSA VARGAS Report Released Date/Time: Jul 17, 2024 09:07 PM Reporting Lab: [address] [address] Performing Lab: [address] [address] HGB 7.3 g/dL L 13.1-16.8 HCT 21.0 L 38.2-48.4 PLT 64 10*3/uL L 150-400 Jul 17, 2024 07:45 PM [facility] MRSA SURVL NARES DNA NARES Specimen Type: NA RES Comment: Qualitative real-time PCR test for the [...] Jul 17, 2024 07:38 PM Reporting Lab: [address] [address] Performing Lab: [address] [address] MRSA SURVL NARES DNA Negative Negative Jul 17, 2024 07:36 PM [facility] GLUCOSE,BLOOD-poct (STL) BLOOD Specimen Type: BLOOD Comment: Test Performed by: [id number] Meter #: [id number] Ordering Provider: CAMDEN PATTON Report Released Date/Time: Jul 17, 2024 07:48 PM Reporting Lab: [address] [address] Performing Lab: [address] [address] GLUCOSE,BLOOD-poct (STL) 98 mg/dL 72-99 Jul 17, 2024 07:35 PM [facility] BLOOD GAS PANEL ABG (STL) VENOUS BLOOD Specimen Type : VENOUS BLOOD Comment: normalcy status - Below absolute low-off instrument scale Test Performed by: [id number] Meter #: [id number] Ordering Provider: CAMDEN PATTON Report Released Date/Time: Jul 17, 2024 07:37 PM Reporting Lab: [facility] [address] [facility] [address] Performing Lab: [address] [address] GEM PH 7.39 7.31-7.41 GEM PCO2 31 [...] TEMP 37.0 Jul 17, 2024 07:10 PM [facility] URINALYSIS W/ CX REFLEX (STL-PB) URINE Specim en Type: URINE No comment entered. Ordering Provider: CASEY BOONE Report Released Date/Time: Jul 17, 2024 04:24 PM Reporting Lab: [place] [address] [facility] [address] Performing Lab: [address] [address] URINE COLOR Light-Yellow Yellow U.BILIRUBIN Negative mg/dL Negative U.PH 6.0 5.0-8.0 APPEARANCE Clear Clear U.NITRITE Negative mg/dL Negative URN.GLUCOSE Normal mg/dL Negative URN.PROTEIN Negative mg/dL URN.UROBILINOGEN Normal mg/dL Normal URN.BLOOD Negative mg/dL Negative-Trace URN.KETONES Trace mg/dL Negative-Trace URN.LEUK.EST. Negative mg/dL Negative-Tr april URN.SPECIFIC GRAVITY 1.029 Jul 17, 2024 06:25 PM [facility] RETICULOCYTE PANEL BLOOD Specimen Type: BLOOD No comment entered. Ordering Provider: CASEY BOONE Report Released Date/Time: Jul 17, 2024 06:13 PM Reporting Lab: [address] [address] Performing Lab: [address] [address] RETIC RATIO 7.35 H 0.50-2.30 IRF 39.7 H 2.3-13.4 RETICULOCYTE HEMOGLOBIN EQUIVALENT 35.8 pg 28.2-36.6 RETIC COUNT,ABS 0.129 10*6/uL H 0.022-0.10 1 Jul 17, 2024 06:25 PM [facility] HAPTOGLOBIN (STL) PLASMA Specimen Type: PLASM A No comment entered. Ordering Provider: CASEY BOONE Report Released Date/Time: Jul 17, 2024 06:13 PM Reporting Lab: [address] [address] Performing Lab: [address] [address] HAPTOGLOBIN (STL) 93 mg/dL 44-215 Jul 17, 2024 06:25 PM [facility] LDH PLASMA Specimen Type: PLASM A No comment entered. Ordering Provider: CASEY BOONE Report Released Date/Time: Jul 17, 2024 06:13 PM Reporting Lab: [address] [address] Performing Lab: [address] [address] LDH 305 U/L H 125-243 Jul 17, 2024 06:25 PM [facility] CBC BLOOD Specimen Type: BLOOD Comment: HGB Called to : Watson White at: [id number] on:[id number] by: [facility] Critical Verbal Readback Performed Ordering Provider: CAMDEN PATTON Report Released Date/Time: Jul 17, 2024 07:09 PM Reporting Lab: [facility] [address] [place] [address] Performing Lab: [address] [address] WBC 27.6 10*3/uL H 3.6-11.2 RBC 1.76 [...] H 2.10-8.00 Jul 17, 2024 04:59 PM [facility] BLOOD GAS PANEL ABG (STL) VENOUS BLOOD Specimen Type : VENOUS BLOOD Comment: Test Performed by: [id number] Meter #: [id number] Ordering Provider: CASEY BOONE Report Released Date/Time: Jul 17, 2024 05:00 PM Reporting Lab: [address] [address] Performing Lab: [address] [address] GEM PH 7.39 7.31-7.41 GEM PCO2 33 [...] TEMP 37.0 Jul 17, 2024 04:25 PM [facility] PT/INR NEW (STL-MA) PLASMA Specimen Type: PLAS MA No comment entered. Ordering Provider: CASEY BOONE Report Released Date/Time: Jul 17, 2024 04:24 PM Reporting Lab: [address] [address] Performing Lab: [address] [address] PROTIME 25.3 s H 9.4-12.5 INR VALUE 2.3 {INR} Jul 17, 2024 04:25 PM [facility] MAGNESIUM PLASMA Specimen Type: PLASM A Comment: No hemolysis noted. Ordering Provider: CASEY BOONE Report Released Date/Time: Jul 17, 2024 04:24 PM Reporting Lab: [address] [address] Performing Lab: [address] [address] MAGNESIUM 1.4 mg/dL L 1.6-2.6 Jul 17, 2024 04:25 PM [facility] COVID-19 DIAGNOSTIC (FLU/RSV)(STL) NASOPHARYNX [...] Jul 17, 2024 04:24 PM Reporting Lab: [address] [address] Performing Lab: [address] [address] INFLUENZA A Negative Negative INFLUENZA B Negative Negative COVID-19 (STL-PB) Not Detected Not Detec nate RSV (Cepheid) NEGATIVE Negative Jul 17, 2024 04:25 PM [facility] COMPREHENSIVE METABOLIC PANEL PLASMA Specimen Type: PLASMA Comment: No hemolysis noted. Ordering Provider: CASEY BOONE Report Released Date/Time: Jul 17, 2024 04:24 PM Reporting Lab: [address] [phone] Performing Lab: [address] [phone] CREATININE 1.25 mg/dL 0.7-1.3 UREA NITROGEN 47.0 [...] 63.1 >60 Jul 17, 2024 04:25 PM [facility] CBC BLOOD Specimen Type: BLOOD No comment entered. Ordering Provider: CASEY BOONE Report Released Date/Time: Jul 17, 2024 04:24 PM Reporting Lab: [facility] [address] [facility] [address] Performing Lab: [facility] [address] [facility] [address] WBC 42.4 10*3/uL H 3.6-11.2 RBC 2.20 [...] H 2.10-8.00 Jul 13, 2024 12:39 PM [facility] TSH W/ REFLEX FT4 (STL) PLASMA Specimen Type: PLASMA No comment entered. Ordering Provider: TONY FELICIANO Report Released Date/Time: Jun 07, 2024 01:01 PM Reporting Lab: [facility] [address] [place] [phone] Performing Lab: [facility] [address] [place] [phone] TSH 1.431 u[IU]/mL 0.47-5 Jul 13, 2024 12:39 PM [facility] PHOSPHOROUS PLASMA Specimen Type: PLASM A Comment: No hemolysis noted. Ordering Provider: TONY FELICIANO Report Released Date/Time: Jun 07, 2024 01:01 PM Reporting Lab: [address] [phone] Performing Lab: [address] [phone] PHOSPHOROUS 2.4 mg/dL 2.3-4.7 Jul 13, 2024 12:39 PM [facility] MAGNESIUM PLASMA Specimen Type: PLASM A Comment: No hemolysis noted. Ordering Provider: TONY FELICIANO Report Released Date/Time: Jun 07, 2024 01:01 PM Reporting Lab: [facility] [address] [place] [phone] Performing Lab: [address] [phone] MAGNESIUM 2.0 mg/dL 1.6-2.6 Jul 13, 2024 12:39 PM [facility] CBC BLOOD Specimen Type: BLOOD Comment: no clot Ordering Provider: TONY FELICIANO Report Released Date/Time: Jun 07, 2024 01:01 PM Reporting Lab: [address] [address] Performing Lab: [address] [address] WBC 3.0 10*3/uL L 3.6-11.2 RBC 3.83 [...] 10*3/uL 2.10-8.00 Jul 13, 2024 12:39 PM [facility] COMPREHENSIVE METABOLIC PANEL PLASMA Specimen Type: PLASMA Comment: No hemolysis noted. Ordering Provider: TONY FELICIANO Report Released Date/Time: Jun 07, 2024 01:01 PM Reporting Lab: [address] [address] Performing Lab: [address] [phone] CREATININE 0.75 mg/dL 0.7-1.3 UREA NITROGEN 21.3 [...] 98.9 >60 Jul 13, 2024 12:38 PM [facility] ALPHA-FETOPROTEIN(STL-PB) SERUM Specimen Type : SERUM No comment entered. Ordering Provider: CRYTSAL MASSEY Report Released Date/Time: Jul 04, 2024 03:26 PM Reporting Lab: [facility] [address] [facility] [address] Performing Lab: [place] [id number] [facility] [id number] ALPHA-FETOPROTEIN(STL-PB) 16.86 ng/mL H 1- 8.78 Jul 13, 2024 12:37 PM [facility] CARBOHYDRATE Ag SERUM Specimen Type: SERUM Comment: REFERENCE RANGE: <34 U/mL This test was performed using the Siemens chemiluminescent method. Values obtained from different assay methods cannot be used inter- changeably. CA 19-9 levels, regardless of value, should not be interpreted as absolute evidence of the presence or absence of disease. Test Performed by [facility], [facility], [address] [place] [address] Tristin Iyer M.D., Ph.D., Director of Laboratories , [place] [id number] Ordering Provider: CRYSTAL MASSEY Report Released Date/Time: Jul 04, 2024 03:28 PM Reporting Lab: [facility] [address] [facility] [id number] Performing Lab: [facility] [address] [facility] CARBOHYDRATE Ag 61 H SEE BELOW Vital Signs: All taken on the encounter date This section contains inpatient and outpatient Vital Signs collected on the date of the Encounter. Date/Time Temperature Pulse Blood Pressure Respiratory Rate SP02 Pain Height Weight Body Mass Index Source Aug 10, 2024 08:00 PM 0 [facility] Aug 10, 2024 06:00 PM 0 [facility] Aug 10, 2024 06:00 PM 98.2 77 115/61 13 100 0 [facility] Aug 10, 2024 04:54 PM 74 129/74 [facility] Aug 10, 2024 12:19 PM 97.8 80 125/78 18 7 [facility] Social History: Smoking Status (Most current) and Tobacco Use (All prior to encounter date) This section includes the most current, and the historical, smoking and tobacco- related health factors from the CO facility where the Encounter took place. Current Smoking Status This section includes the most current smoking, or tobacco-related health factor, from the CO facility where the Encounter took place. Date/Time Current Smoking Status Comment Facil ity Jul 17, 2024 04:02 PM ORYX ADMIT TOBACCO SCREEN NO [facility] Tobacco Use History This section includes a history of the smoking, or tobacco-related health factors, that were collected on or before the date of the Encounter. The data comes from the CO facility where the Encounter took place. Date/Time Smoking Status/Tobacco Use Comment F acility Jan 20, 2023 03:49 PM VA-TOBACCO FORMER USER [facility] Jan 20, 2023 03:49 PM VA-TOBACCO QUIT 15 YRS OR MORE [facility] Feb 06, 2021 04:28 PM VA-TOBACCO FORMER USER [facility] Feb 06, 2021 04:28 PM VA-TOBACCO QUIT 15 YRS OR MORE [facility] Radiology Reports: +/- 30 [...] the Encounter. The data comes from all [place] treatment facilities. Date/Time Radiology Report Provider Source Aug 23, 2024 12:12 PM US BLOOD FLOW ABD/RENAL DOPPLER (COMPLETE): ABRAHAM HAWK [id number] -1955 M Exm Date: AUG 23, 2024@12:12 Req Phys: GILSON BOWENS Pat Loc: [facility]-GEN MED INPT VISIT (Req'g L Img Loc: [facility]ULTRASOUND [facility] Service: Unknown [facility], [address] [place] [address] (Case [id number] COMPLETE) US BLOOD FLOW ABD/RENAL DOPPLER ((US Detailed) CPT:25835 Reason for Study: dopplers Clinical History: Report Status: Verified Date Reported: AUG 23, 2024 Date Verified: AUG 23, 2024 Pit Shoveler E-Sig:/ES/PETROS MCCORD Report: Case [id number], [id number]. US ABDOMEN LTD, SINGLE ORG OR QUADRANT, [...] vasculature. Primary Interpreting Staff: PETROS MCCORD MD (Pit Shoveler) /PETROS SRIVASTAVA [facility] Aug 23, 2024 12:12 PM US ABDOMEN LTD, SINGLE ORG OR QUADRANT: ABRAHAM HAWK [id number] -1955 M Exm Date: AUG 23, 2024@12:12 Req Phys: GILSON BOWENS Kristal Loc: [facility]GEN MED INPT VISIT (Req'g L Img Loc: [facility]ULTRASOUND [facility] Service: Unknown [facility], [address] [place] [address] (Case [id number] COMPLETE) US ABDOMEN LTD, SINGLE ORG OR CARLITOS(US Detailed) CPT:07441 Reason for Study: Possible SBP, RUQUS with dopplers, please comment on ascites? Clinical History: Report Status: Verified Date Reported: AUG 23, 2024 Date Verified: AUG 23, 2024 Pit Shoveler E-Sig:/ES/PETROS MCCORD Report: Case [id number], [id number]. US ABDOMEN LTD, SINGLE ORG OR QUADRANT, [...] vasculature. Primary Interpreting Staff: PETROS MCCORD MD (Pit Shoveler) /PETROS SRIVASTAVA [facility] Aug 10, 2024 02:[address] ABD PEL W/CONT & 3D: ABRAHAM HAWK [id number] -1955 M Exm Date: AUG 10, 2024@14:33 Req Phys: YASIR SANZ MD Pat Loc: [facility]-EMERGENCY DEPT 2ND SHIFT (R Img Loc: [facility]-CT IMAGING [facility] Service: Unknown [facility], [facility] [address] [place] [address] (Case [id number] COMPLETE) CT ABDOMEN AND PELVIS W/CONTRAST (CT Detailed) CPT:71154 Contrast Media : Non-ionic Iodinated Reason for Study: Abdominal pain, vomiting Clinical History: Responsible Attending: Svetlana Attending Contact Number: [phone] Resident Contact Number: Abdominal pain, vomiting Allergies listed in CPRS chart: Patient has answered NKA Creatinine:CREATININE 0.82 mg/dL 08/10/2024 11:30 /eGFR: STL EGFR (within one year). CREATININE 0.82 mg/dL (08/10/24 11:30) Wt: 152.1 lb [68.99 kg] (08/10/2024 11:31) History of: Renal failure, chronic or acute renal disease: NO Report Status: Verified Date Reported: AUG 10, 2024 Date Verified: AUG 10, 2024 Pit Shoveler E-Sig:/ES/PETROS MCCORD Report: Case [id number]. CT ABDOMEN AND PELVIS W/CONTRAST. Gastrointestinal contrast: [...] hernias. Dictated by Kenneth Albright DO (radiology asst). I, Petros Mccord, have reviewed the images and report and concur with these findings. Primary Interpreting Staff: PETROS MCCORD MD (Pit Shoveler) Primary Interpreting Resident: KENNETH ALBRIGHT, Treatment Specialist /PETROS REESE [facility] Aug 01, 2024 10:20 AM PET/CT TUMOR IMAGING (SKULL TO MID-THIGH)-P: ABRAHAM HAWK [id number] -1955 M Exm Date: AUG 01, 2024@10:20 Req Phys: FELICIANO,TONY Kristal Loc: [facility]-ONCOLOGY [facility] (Req'g Loc) [facility] Loc: -PET-CT Service: [address] [address] (Case [id number] COMPLETE) PET/CT TUMOR SKULL BASE TO MID-T(NM Detailed) CPT:60254 CPT Modifiers : PS PET TUMOR SUBSQ TX STRATEGY Reason for Study: Nasopharyngeal cancer (Case [id number] COMPLETE) F-18 FLUORODEOXYGLUCOSE (FDG),PER(NM Detailed) CPT:A9552 Clinical History: Report Status: Verified Date Reported: AUG 01, 2024 Date Verified: AUG 01, 2024 Pit Shoveler E-Sig:/SHAQ/NATASHA GOVEA Report: PATIENT NAME: ABRAHAM HAWK. CASE #: [id number], [id number]. PROCEDURE: PET/CT study Indication: Nasopharyngeal cancer HISTORY: [...] lytic osseous lesion is noted within the sojbd-af-tzey. Impression: 1. The previous sites of FDG [...] correlation. DIAGNOSTIC CODE: 1001 Dictated by Natasha Govea MD (PET/CT fellow). Primary Diagnostic Code: SIGNIFICANT ABNORMALITY, ATTN NEEDED Primary Interpreting Staff: NATASHA GOVEA MD (Pit Shoveler) /PFT NATASHA GOVEA [facility] Jul 27, 2024 03:41 PM CHEST PORTABLE: ABRAHAM HAWK [id number] -1955 M Exm Date: JUL 27, 2024@15:41 Req Phys: ELIZABETH COATES Loc: [facility]-EMERGENCY DEPT 2ND SHIFT (R Img Loc: -MAIN RADIOLOGY SUITE Service: Unknown [facility], [address] [address] (Case [id number] COMPLETE) CHEST PORTABLE (RAD Detailed) CPT:80332 Proc Modifiers : Portable Reason for Study: sob Clinical History: Report Status: Verified Date Reported: JUL 27, 2024 Date Verified: JUL 27, 2024 Pit Shoveler E-Sig:/ES/Sol Abraham MD Report: CASE [id number]. AP portable view chest. COMPARISON: Chest x-ray [...] Report dictated by Krystian Sultana D.O. (radiology asst) ISol, have reviewed the images and report and concur with these findings. Primary Interpreting Staff: Sol Abraham MD, Radiologist (Pit Shoveler) Primary Interpreting Resident: Krystian Sultana D.O., Resident Physician /SOL DHALIWAL [facility] Jul 17, 2024 06:[address] ABD PEL W/CONT & 3D: ABRAHAM HAWK [id number] -1955 M Exm Date: JUL 17, 2024@18:18 Req Phys: CASEY BOONE [facility] Loc: 4-C [facility]/07-17-2024@19:47 Img Loc: [facility]-CT IMAGING [facility] Service: [facility], [facility] [address] [place] [address] (Case [id number] COMPLETE) CT ABDOMEN AND PELVIS W/CONTRAST (CT Detailed) CPT:48585 Contrast Media : Non-ionic Iodinated Reason for Study: septic shock, abd pain Clinical History: Responsible Attending: Nils Attending Contact Number: [phone] Resident Contact Number: Septic shock, Patient with [...] 17, 2024 Date Verified: JUL 17, 2024 Pit Shoveler E-Sig: Report: CT THORAX W/CONT (PE) [PRINTSET], CT ABDOMEN AND PELVIS W/CONTRAST [PRINTSET] Comparison: 03/17/2022, 04/23/2024 Clinical History: RO PE The study was protocoled and supervised at the local [place] facility. Chest 12 series and 1585 images were subsequently received by the [place] National Teleradiology Program (NTP) for interpretation. Abdomen and pelvis 9 series and 1365 images were subsequently received by the [place] National Teleradiology Program (NTP) for interpretation. Total [...] from 09/12/2023. READING PHYSICIAN: Guilherme Talbert M.D. -[phone] 07/17/2024 17:44 PST [facility] National Teleradiology Program [phone] (For Medical Practitioner Use Only) Attention Patients / Veterans: If you have questions or concerns about these test results, please contact your ordering provider or primary care team. Primary Interpreting Staff: RADIOLOGY,OUTSIDE SERVICE, Staff Physician / RADIOLOGY,OUTSIDE SERVICE [facility] Jul 17, 2024 06:[address] PE CHEST W/3D: ABRAHAM HAWK [id number] -1955 M Exm Date: JUL 17, 2024@18:17 Req Phys: CASEY BOONE [facility] Loc: 4-C [facility]/07-17-2024@19:47 Img Loc: [facility]-CT IMAGING [facility] Service: [facility], [facility] [address] [place] [address] (Case [id number] COMPLETE) CT THORAX W/CONT (PE) (CT Detailed) CPT:34670 Contrast Media : unspecified contrast media Reason for Study: RO PE Clinical History: Responsible Attending: Nils Attending Contact Number: [phone] Resident Contact Number: Patient with HCC and [...] 17, 2024 Date Verified: JUL 17, 2024 Pit Shoveler E-Sig: Report: CT THORAX W/CONT (PE) [PRINTSET], CT ABDOMEN AND PELVIS W/CONTRAST [PRINTSET] Comparison: 03/17/2022, 04/23/2024 Clinical History: RO PE The study was protocoled and supervised at the local [place] facility. Chest 12 series and 1585 images were subsequently received by the [place] National Teleradiology Program (NTP) for interpretation. Abdomen and pelvis 9 series and 1365 images were subsequently received by the [place] National Teleradiology Program (NTP) for interpretation. Total [...] from 09/12/2023. READING PHYSICIAN: Guilherme Talbert M.D. -[phone] 07/17/2024 17:44 [facility] National Teleradiology Program [phone] (For Medical Practitioner Use Only) Attention Patients / Veterans: If you have questions or concerns about these test results, please contact your ordering provider or primary care team. Primary Interpreting Staff: RADIOLOGY,OUTSIDE SERVICE, Staff Physician / RADIOLOGY,OUTSIDE SERVICE [facility] Pathology Reports: +/- 30 days of [...] the Encounter. The data comes from all [place] treatment facilities. Date/Time Pathology Report Provider Source Aug 16, 2024 09:43 AM LR SURGICAL PATHOL OGLyudmila REPORT: LOCAL TITLE: LR SURGICAL PATHOLOGY REPORT STANDARD TITLE: PATHOLOGY PROCEDURE NOTE DATE OF NOTE: AUG 16, 2024@09:43:26 ENTRY DATE: AUG 16, 2024@09:43:26 AUTHOR: TRUDY ACOSTA EXP COSIGNER: URGENCY: STATUS: COMPLETED $APHDR - [...] - - - - $TEXT Submitted by: UVALDO SHEFFIELD Date obtained: Aug 14, 2024 13:52 [...] POSTOPERATIVE DIAGNOSIS: Jar 1: Duodenal bx Surgeon/physician: KAVIN DAVIS MD =-=-=-=-=-=-=-=-=-=-=-=-=-= -=-=-=-=-=-=-=-=-=-=-=-=-=- =-=-=-=-=-=-=-=-=-=-=-=-= - - [...] in toto in A1. MICROSCOPIC EXAM: Trudy Acosta MD 08/16/2024 The microscopic review of H&E [...] FOR DYSPLASIA OR MALIGNANCY - SEE JONEL /shaq/ TRUDY ACOSTA Pathologist Signed Aug 16, 2024@09:43 Performing Laboratory: Surgical Pathology Report Performed By: [address]# [id number] [address] [place] [id number] $FTR - - - - - - - - - - - - - - - - - - - - - - - - - - - - - - - - - - - - - - - - (End of report) TRUDY ACOSTA MD aq Date Aug 16, 2024 - - - - - - - - - - - - - - - - - - - - - - - - - - - - - - - - - - - - - - - - ABRAHAM HAWK STANDARD FORM 515 ID:[id number] SEX:M :1955 AGE: 68 LOC:APFEE PCP: Deirdre Wild /eze ACOSTA Pathologist Signed: 08/16/2024 09:43 TRUDY ACOSTA [facility] Aug 11, 2024 06:00 AM LR MICROBIOLOGY RE PORT: Accession [UID]: [id number] [[id number]] Received: Aug 11, 2024@06:19 Collection sample: B D BLD. BOTTLE Collection date: Aug 11, 2024 06:00 Site/Specimen: BLOOD Provider: GILSON BOWENS Test(s) ordered: BLOOD CULT (SET 1)............ completed: Aug 17, 2024 10:06 * BACTERIOLOGY FINAL REPORT => Aug 17, 2024 10:22 TECH CODE: [id number] Bacteriology Remark(s): 08.17.24 KAA Culture shows NO GROWTH IN 6 DAYS =--=--=--=--=--=--=--=--=-- =--=--=--=--=--=--=--=--=-- =--=--=--=--=--=--=--=-- Performing Laboratory: Bacteriology Report [facility]formed By: [facility] [address] [place] [address] CLIA# [id number] [address] [address] JULISSA BROWN [facility] Jul 17, 2024 05:10 PM LR MICROBIOLOGY RE PORT: Accession [UID]: [id number] [[id number]] Received: Jul 17, 2024@17:30 Collection sample: B D BLD. BOTTLE (SET 2)Collection date: Jul 17, 2024 17:10 Site/Specimen: BLOOD Provider: CASEY BOONE Test(s) ordered: BLOOD CULT (SET 2)............ completed: Jul 23, 2024 14:26 * BACTERIOLOGY FINAL REPORT => Jul 23, 2024 14:28 TECH CODE: [id number] Bacteriology Remark(s): CULTURE IS NEGATIVE TO DATE, ALL POSITIVES ARE ROUTINELY CALLED. [facility] Culture shows NO GROWTH IN 6 DAYS. 07/23/24 KI =--=--=--=--=--=--=--=--=-- =--=--=--=--=--=--=--=--=-- =--=--=--=--=--=--=--=-- Performing Laboratory: Bacteriology Report [address]formed By: [address] [id number] [place] [id number] [facility] Jul 17, 2024 05:10 PM LR MICROBIOLOGY RE PORT: Accession [UID]: [id number] [[id number]] Received: Jul 17, 2024@17:30 Collection sample: B D BLD. BOTTLE Collection date: Jul 17, 2024 17:10 Site/Specimen: BLOOD Provider: CASEY BOONE Test(s) ordered: BLOOD CULT (SET 1)............ completed: Jul 23, 2024 14:26 * BACTERIOLOGY FINAL REPORT => Jul 23, 2024 14:28 TECH CODE: [id number] Bacteriology Remark(s): CULTURE IS NEGATIVE TO DATE, ALL POSITIVES ARE ROUTINELY CALLED. KI Culture shows NO GROWTH IN 6 DAYS. 07/23/24 KI =--=--=--=--=--=--=--=--=-- =--=--=--=--=--=--=--=--=-- =--=--=--=--=--=--=--=-- Performing Laboratory: Bacteriology Report Performed By: [address] [id number] [address] [place] [id number] [facility] Encounter Notes: All associated encounter notes This section contains the clinical notes associated to the Encounter. Date/Time Encounter Note(s) Provider Source Aug 15, 2024 12:33 PM DISCHARGE SUMMARY: LOCAL TITLE: Discharge Summary STANDARD TITLE: DISCHARGE SUMMARY DICT DATE: AUG 15, 2024@10:37 ENTRY DATE: AUG 15, 2024@10:37:34 DICTATED BY: GILSON BOWENS ATTENDING: NOAM MOLINA URGENCY: routine STATUS: COMPLETED PRINCIPAL DIAGNOSIS: Esophageal varices and peptic ulcer disease with bleeding SECONDARY DIAGNOSES: Significant Medical Problems PRESENT on Admission: Nasopharyngeal carcinoma Cirrhosis, decompensated with small-volume ascites, known esophageal varices, and thrombocytopenia Hepatocellular carcinoma History of hepatitis C, treated with sustained virologic response Iron deficiency anemia Significant Medical Problems NOT PRESENT on Admission: Not Applicable OPERATIVE/INVASIVE PROCEDURES: Esophagogastroduodenoscopy x 2 (first with concern for upper Gastrointestinal bleeding, second for gastroduodenal mucosal biopsy for previously-identified ulcerations) ATTENDING PHYSICIAN: Noam Molina M.D. 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 Patient presented initially on 08/10 with nausea, vomiting a black-colored emesis x 1, and numerous tarry black stools over the past 3-4 days. Also felt light-headed, weak and otherwise unwell. Was recently discharged with UGIB 3 weeks prior, baseline Hgb 11.5, initial Hgb here 8.8, repeat 7.1 just 4-6 hrs later. GI was consulted who recommended hemodynamic optimization and urgent EGD. Underwent EGD as scheduled on 08/11, found [...] Results pending on biopsies with GI f/u scheduled. As of 08/15, HDS and feeling well. Hgb stable at 9-10 for several days now. Stable for discharge. HOSPITAL COURSE: This is a 68 yo M with PMHx of nasopharyngeal carcinoma on Keytruda, history of previous GI bleeds, cirrhosis with esophageal varices who presented for upper GI bleed, likely 2/2 immune checkpoint inhibitor therapy. # Vomiting # Nausea # Abdominal pain # HCC # Cirrhosis, compensated # Esophageal varices # Peptic ulcer disease, possibly secondary to immune checkpoint inhibitor toxicity Patient had significant drop in hemoglobin secondary to upper GI bleed. Likely culprit was diffuse ulceration of gastroduodenum, a known complicated of Keytruda therapy. Esophageal varices were increased on interval and thought to be potentially problematic in the future and were prophylactically banded, but unlikely to have been bleed source for this admission. Nasopharyngeal carcinoma likely non contributory as well from ENT perspective. - Biopsies pending, follow results; outpatient GI f/u - Oncology f/u; would not resume Keytruda prior to interdisciplinary discussion per GI - PPI prophylaxis provided and will be continued on discharge - Rocephin ppx for possible SBP and/or variceal bleeding completed x 5 days; no further management indicated - Simethicone for post procedural pain provided with some relief. # ABLA # ADALBERTO # History of refractory nasopharyngeal bleeds 2/2 nasopharyngeal carcinoma ADALBERTO identified with TS 8%. Cobblestoning on back of throat suggestive for occult slow bleeding from posterior nasopharynx over time but likely non-contributory to presentation. - Hold keytruda; tbw onc - Transfused 1 total unit pRBC - Transfused 200 mg IV iron sucrose x 3 days. Repeat iron panel in 3-6 weeks CONDITION ON DISCHARGE: Fair FOLLOW-UP: 08/17/2024 08:30 [facility]ONCOLOGY FELICIANO INPATIENT APPOINTMENT 08/17/2024 09:00 [facility]CHEMO INPATIENT APPOINTMENT 08/17/2024 09:30 [facility]HEP LIVER INPATIENT APPOINTMENT 09/18/2024 14:00 [facility]OPTOMETRY 3 INPATIENT APPOINTMENT NON-VA FOLLOW-UP CARE: Not Applicable DISCHARGE MEDICATIONS: Active Outpatient Medications (including Supplies): Active [...] A DAY ACTIVE NEEDED 15 Total Medications ALLERGIES OR DRUG SENSITIVITIES: Patient has answered NKA ACTIVITY: As tolerated DIET: As tolerated, regular INFORMATION REGARDING CONDITION OR PROPER HOME AND/OR WOUND CARE: Not Applicable RETURN TO WORK: As tolerated DISPOSITION: [X} Discharge home [ ] Discharge to home hospice [ ] Transfer to senior living [ ] Transfer to rehab [ ] Transfer to psychiatry [ ] Transfer to Spinal cord injury unit [ ] Transfer to hospice [ ] Transfer to outside facility: [ ] Transfer to outside facility under hospice: [ ] : autopsy approved by Next of Kin [ ] : autopsy not approved by Next of Kin [ ] : 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 [ ] The patient is not competent in the VA sense of the word. TOTAL TIME SPENT FOR FINAL HOSPITAL DISCHARGE: 45 minutes. Verified By MRT/ADRI /shaq/ GILSON BOWENS Resident Physician Signed: 08/15/2024 11:33 /shaq/ Noam Molina MD, PhD Staff Physician Cosigned: 08/15/2024 13:10 GILSON BOWENS [facility] Aug 15, 2024 12:22 PM NURSING TRANSFER SUMMARIZATION DISCHARGE NOTE: LOCAL TITLE: JEY DISCHARGE/TRANSFER SUMMARY [facility] STANDARD TITLE: NURSING TRANSFER SUMMARIZATION DISCHARGE NOTE DATE OF NOTE: AUG 15, 2024@12:22 ENTRY DATE: AUG 15, 2024@12:22:37 AUTHOR: KRISHNA RAMIREZ COSIGNER: URGENCY: STATUS: COMPLETED DISCHARGE - TRANSFER SUMMARY Action: Discharge Diagnosis: Last Admission: 08/10/24 6:08:28 pm Admit Dx: GI BLEED,UNCLEAR SOURCE Age: 68 Allergies: Patient has answered NKA Patient Condition: Stable Vital Signs: Temperature: 98.6 F [37.0 C] (08/15/2024 08:17) Pulse: 78 (08/15/2024 08:17) Respiration: 17 (08/15/2024 08:17) Blood Pressure: 141/76 (08/15/2024 08:17) Pain: 0 (08/15/2024 08:21) Fall Risk Assessment Score: Fall Risk Level: No Risk Isolation: No Precautions: None Orientation: x3 Hygiene: Self Care Nutrition: Regular diet Special needs: Assistance: Independent Bowel/Bladder: Date of last bowel movement: Defecation: Normal Able to void: YES Continent: YES Catheter: No Wound / Skin Condition: Assessment Type: SKIN REINSPECTION/REASSESSMENT SKIN INSPECTION: Skin Color: Usual for ethnicity Skin Temperature: Warm Skin Moisture: Normal Skin Turgor: Elastic (normal/immediate) Bautista Skin Assessment: The patient's Bautista Scale Score is 23. The patient is considered not at risk for development of pressure ulcers/injuries. Sensory perception -- ability to respond meaningfully to pressure-related discomfort No impairment. Moisture -- degree to which skin is exposed to moisture Rarely moist. Activity -- ability to change and control body position Walks frequently. Mobility -- ability to change and control body position No limitation. Nutrition -- usual food intake patterns Excellent. Friction and shear No apparent problem. INTERVENTIONS: The pressure injury interventions were not needed - patient/resident is not at risk. SKIN INTEGRITY: Intact STANDARD OF CARE / PRACTICE IMPLEMENTED: Indicate status at Discharge/Transfer: Resolved Flu Shot Given: No Patient refused Pneumococcal Shot Given: No Patient refused MRSA Discharge Swab Done: No Reason: na Discharged/Transfered to: Own home without home care services Accompanied by (Name & Relationship): self Next of Kin notified: YES Discharge/Transfer Mode: Wheelchair Discharged/Transferred with: Written Discharge Instructions Medications Return Appointments The was informed of the date and time of his/her follow-up mental health appointments: The [place] was provided the opportunity to cancel or change his/her scheduled follow-up mental health appointments: The [place] was educated about what to do and who to contact should he/she need to cancel the follow-up mental health appointment: Clothing / Valuables returned: Yes Describe: pants, shirt, hat, hearing aids, glasses, wallet, cell phone, bicycle repairer, computer, black bag, shoes, socks. Prosthetics with patient: Dentures/Partials with patient: None Glasses with patient: YES Other: NA Printed MD Instruction sheet with medication list reviewed and given to the patient/caregiver. Patient/Caregiver verifies medication list is complete and accurate. Patient/Caregiver appeared ready for instruction (good eye contact, appropriate questions, active participation, etc) Person(s) who received education: Patient Education Topic/Teaching Needs: Disease/Condition Medication Diet/Nutrition Follow-up Instructions Methods used Included: A copy of the Discharge Instructions Health Summary given to patient/caregiver and signed by patient/guardian. Patient's medications were reviewed and reconciled by discharge team. Teaching outcomes: Good level of understanding /es/ JEFF BAPTISTE, RN REGISTERED NURSE Signed: 08/15/2024 12:28 KRISHNA RAMIREZ [facility] Aug 15, 2024 12:22 PM GASTROENTEROLOGY NOTE: LOCAL TITLE: GASTROENTEROLOGY INPATIENT SIGN OFF ST STANDARD TITLE: GASTROENTEROLOGY NOTE DATE OF NOTE: AUG 15, 2024@12:22 ENTRY DATE: AUG 15, 2024@12:22:29 AUTHOR: SHANE MEDERSO EXP COSIGNER: RADHA BROWN URGENCY: STATUS: COMPLETED CC: melena HPI: Pt. 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 Patient had EGD on 08/11/24 which demonstrated diffuse ulceration in the duodenum without active bleeding. Repeat EGD on 08/14/24 with banding of EV and biopsies of duodenal ulcerations. Today patient reports doing well. he had severe abdominal pain overnight which has since subsided. He denies melena or hematemesis. Vitals: 98.6 F [37.0 C] (08/15/2024 08:17)78 (08/15/2024 08:17)141/76 (08/15/2024 08:17)17 (08/15/2024 08:17) Measurement DT POx (L/MIN)(%) 08/15/2024 08:17 97 08/15/2024 04:51 97 08/15/2024 00:05 98 08/14/2024 19:52 99 General: NAD, alert, cooperative HEENT: EOMI, NC/AT Lungs: CTAB CV: RRR, normal S1/S2, no m/r/g Abdomen: soft, non tender to palpation, bowel sounds normal Ext: moves all ext, no edema Neuro: AAOx3, CN 2-12 grossly intact, no FND Psych: appropriate mood and affect INTERVAL TESTS: LABS: Hgb HGB 9.0 L g/dL 08/15/2024 06:00 Hct 28.4 % L (08/15/24 06:00) MCV 96.9 fL (08/15/24 06:00) Plt PLT 86 L 10*3/uL 08/15/2024 06:00 Iron, TIBC IRON 21 L ug/dL 08/11/2024 06:00 TIBC 263 ug/dL 08/11/2024 06:00 Patricio No FERRITIN EO data found BUN 9.3 mg/dL (08/14/24 14:00) Cr CREATININE 0.75 mg/dL 08/14/2024 14:00 Alb ALBUMIN 3.3 L g/dL 08/14/2024 14:00 Ca 8.6 mg/dL (08/14/24 14:00) TSH TSH 3.991 uIU/mL 08/10/2024 11:30 Vit D No VITAMIN D 25 HYDROXY EO data found ALT 13 U/L (08/14/24 14:00) AST 29 U/L (08/14/24 14:00) TB TOTAL BILIRUBIN 0.5 mg/dL 08/14/2024 14:00 AP ALKALINE PHOSPHATASE 96 U/L 08/14/2024 14:00 INR INR VALUE 1.2 INR 08/14/2024 09:20 PROTIME 13.6 H sec 08/14/2024 09:20 IMAGING: Impression for CT ABDOMEN AND PELVIS W/CONTRAST, [...] hernias. Dictated by Kenneth Albright DO (radiology asst). I, Petros Mccord, have reviewed the images and report and concur with these findings. Impression for US ABDOMEN LTD, SINGLE ORG OR QUADRANT, 06/07/22, case [id number] 1. Ultrasound Category: 3 2. Visualization score: A 3. Other findings: Chronic liver disease. The hepatic vasculature is patent, please see above for details. US LI-RADS REFERENCE: US-1 negative: No evidence of HCC US-2 subthreshold: Observation(s) detected that may warrant short-interval US surveillance; observation <10 mm in diameter, not definitely benign. US-3 positive: Observation(s) detected that may warrant multiphase contrast-enhanced imaging; observation ? 10 mm in diameter or new thrombus in vein. Visualization Score: A: No or minimal limitations; limitations, if any, are unlikely to meaningfully affect sensitivity B: Moderate limitations; limitations my obscure small masses C: Severe limitations; limitations significantly lower sensitivity for focal liver lesions No Impressions found EGD 08/14/24 - Grade III esophageal varices with no stigmata of recent bleeding. Completely eradicated. Banded. - Erythematous mucosa in the antrum. - Non-obstructing non-bleeding duodenal (serpifinous) ulcers with no stigmata of bleeding. Suspicious for ICI enteritis. Biopsied. EGD 08/11/24 - Large (> 5 mm) esophageal varices. - LA Grade B esophagitis with no bleeding. - Non-bleeding gastric ulcer with no stigmata of bleeding. - Non-obstructing non-bleeding duodenal ulcers with no stigmata of bleeding suspicious for checkpoint inhibitor enteritis. - No specimens collected. EGD 07/18/24 - Small to medium sized esophageal varices. - Portal hypertensive gastropathy. EGD 05/16/23 The Diapharagmatic pinch, gastroesophageal junction and squamocolumnar junction were located at 43 cm . Esophagus Severe inflammation and thick layer of white plaques coating the entire oropharynx and eosphagus s/p brushings to evaluate for edenilson esophagitis. The exam was abbreviated due to severity of inflammation. Medium sized varices were seen however examination limited. Stomach IMP: #melena #acute on chronic anemia recent EGD without clear active bleeding culprit likely oozing from PHG at the time restarted on propranolol at discharge however seems to continue to bleed Hgb 8.8, then down to 7.1 overnight continues to have melena at this time DDX includes PHG, variceal, other UGIB. cannot rule out non-UGIB etiology including nose bleed from SCC or RSO changing stool/emesis color CT shows new duodenal wall thickening EGD demonstrated diffuse ulceration in the duodenum suspicious for checkpoint inhibitor enteritis. #cirrhosis #HCC Etiology: HCV, cured MELD: 10 Ascites: present on imaging EV: present on latest EGD HCC: present s/p TACE HE: no history REC: -follow up pathology to confirm ICI enteritis -patient has follow up appointment with [facility] (Dr Feliciano) on aug 17 -patient has follow up appointment in the Liver clinic on aug 17 -pantoprazole or omeprazole 40mg BID for 12 weeks then switch to daily GI will sign off at this time, please do not hesitate to call if any new questions arise Plan was discussed with the , the primary team and the GI attending on service: Dr Brown /shaq/ Shane Miles MD GASTROENTEROLOGY FELLOW Signed: 08/15/2024 12:27 /shaq/ RADHA BROWN MD Gastroenterology Staff Physician Cosigned: 08/16/2024 07:44 SHANE MEDEROS [facility] Aug 15, 2024 10:54 AM PHYSICIAN EDUCATION DISCHARGE NOTE: LOCAL TITLE: DISCHARGE INSTRUCTIONS ST STANDARD TITLE: PHYSICIAN EDUCATION DISCHARGE NOTE DATE OF NOTE: AUG 15, 2024@10:54 ENTRY DATE: AUG 15, 2024@10:54:50 AUTHOR: GILSON BOWENS COSIGNER: NOAM MOLINA URGENCY: STATUS: COMPLETED MEDICATIONS THAT WERE CHANGED: NA MEDICATIONS THAT WERE STOPPED (AND REASON FOR STOPPING): Keytruda (suspected immune checkpoint inhibitor toxicity) NEW MEDICATIONS WITH INSTRUCTIONS: NA DATE OF ADMISSION: Jul 18:08 DATE OF DISCHARGE: Jul REASON(S) FOR BEING IN THE HOSPITAL: Acute upper GI bleed, now s/p esophageal varices banding and peptic ulcer mucosal biopsy YOUR OUTPATIENT CARE TEAM: Team Information Primary Care Team: MOMO KEMP PACT 5 PCP Provider: SUKHJINDER CHAHAL Position: NURSE [place] FUTURE APPOINTMENTS: 08/17/2024 08:30 [facility] INPATIENT APPOINTMENT 08/17/2024 09:00 [facility] IN[facility]IENT APPOINTMENT 08/17/2024 09:30 [facility] LIVER INPATIENT APPOINTMENT 09/18/2024 14:00 [facility]OPTOMETRY 3 INPATIENT APPOINTMENT ADDITIONAL FOLLOW UP CARE: Please follow up with GI within 2 weeks for biopsy resultsPlease follow up with oncology within 2 weeks to discuss alternative therapy to Keytruda YOUR KNOWN ALLERGIES: Patient has answered NKA CALL YOUR DOCTOR IF YOU HAVE ANY OF THESE PROBLEMS: Gastrointestinal (stomach problems): Blood in stool or dark black sticky stools, Change in stool color and/or consistency, Nausea and vomiting, Severe abdominal (stomach) pain, Chills or fever of 101 or greater PHYSICAL ACTIVITY: Activity as tolerated DIET: Oral Nutrition/Diet Instructions Regular Diet: A healthy eating plan will maintain or promote good health. -Consume a diet rich in fruits, vegetables, whole grains, and healthy oils -Choose lean protein sources such as fish, poultry, beans/legumes, and non-fat or low-fat dairy sources. -Limit saturated fat such as fatty cuts of beef, faith, pork, chicken with skin, whole milk, cream, butter -Minimize consumption of sugary drinks, desserts -Limit deep-fried foods and fast foods -Limit the use of added table salts, salt-type seasoning, and processed foods -Speak to a Registered Dietitian about other healthy eating tips and meal planning DEVICES AT DISCHARGE: Not Applicable: The patient should be discharged with no urinary catheter or intravenous access TOBACCO & ALCOHOL: Discharge tobacco cessation medication(s) not indicated due to: Other reason(s) documented by physician/MEDICAL TECHNOLOGIST CHEMISTRY/PA or pharmacist Reason(s): NA Discharge medications for alcohol/drug disorder not offered Reason: NA DISCHARGE INSTRUCTIONAL MATERIALS: CONDITION OF PATIENT AT DISCHARGE: Fair DISCHARGE DESTINATION: Home NOTE: If you are having feelings of Depression or Emotional Distress, or feel you just need to talk with someone, please call [phone] ([phone]), Veterans - Press 1. COPY OF DISCHARGE INSTRUCTIONS: The patient/family understands and will be provided a copy of these discharge instructions. DISCHARGE MEDICATION LIST: Active Outpatient Medications (including Supplies): Active Outpatient [...] A DAY ACTIVE NEEDED 15 Total Medications Active Remote Medications: No Active Remote Medications for this patient /es/ GILSON BOWENS Resident Physician Signed: 08/15/2024 10:58 /es/ Noam Molina MD, PhD Staff Physician Cosigned: 08/15/2024 11:17 GILSON BOWENS [facility] Aug 15, 2024 08:20 AM NURSING INPATIENT NOTE: LOCAL TITLE: [facility] ACUTE INPATIENT NSG SHIFT ASSESSMENT STANDARD TITLE: NURSING INPATIENT NOTE DATE OF NOTE: AUG 15, 2024@08:20 ENTRY DATE: AUG 15, 2024@08:20:49 AUTHOR: KRISHNA RAMIREZ COSIGNER: URGENCY: STATUS: COMPLETED Version 2.2 Charting in accordance with [facility] [place] STANDARD ([facility]) ACUTE INPATIENT/REHABILITATION NURSING ADMISSION SCREENING, ASSESSMENT, AND STANDARDS OF CARE ASSESSMENT PAIN ASSESSMENT Patient's acceptable pain goal: 0 No pain Are you currently experiencing pain? No: Pain Score: 0 BECKER FALL SCALE & TIPS PROGRAM Becker Fall Scale: The Becker Fall scale was performed and score was 35. This is indicative of moderate risk for falls. History of falling: immediate or within 3 months? 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 Edema: None RESPIRATORY Breath Sounds Auscultated: Anterior and posterior Left Upper Lobe: Clear Right Upper Lobe: Clear Right Middle Lobe: Clear Left Lower Lobe: Clear Right Lower Lobe: Clear GASTROINTESTINAL Elimination: Continent Palpation: Firm Bowel Sounds: RUQ: Active LUQ: Active RLQ: Active LLQ: Active GENITOURINARY Elimination: Continent INTEGUMENTARY/SKIN/WOUND - (INCLUDING BAUTISTA) SEE NOTE: VAAES SKIN INPECTION/ASSESSMENT IV LINES Peripheral IV: Line #1: Assessment: Location: Right, Forearm Gauge: 20 Dressing Condition: Clean, dry, intact Site Condition: No redness, swelling, pain Line Status: Flushed /es/ JEFF BAPTISTE RN REGISTERED NURSE Signed: 08/15/2024 08:23 KRISHNA RAMIREZ [facility] Aug 15, 2024 08:03 AM ADMINISTRATIVE NOTE: LOCAL TITLE: BENEFICIARY TRAVEL (BT) STANDARD TITLE: ADMINISTRATIVE NOTE DATE OF NOTE: AUG 15, 2024@08:03 ENTRY DATE: AUG 15, 2024@08:04:11 AUTHOR: GILSON BOWENS EXP COSIGNER: NOAM MOLINA URGENCY: STATUS: COMPLETED BENEFICIARY TRAVEL COMMON CARRIER: This request is subject to Beneficiary Travel eligibility requirements and administrative approval. *[place] can safely be transported or transfer in and out of a private vehicle, taxi, bus or other common carrier (public transportation). *Or does not need to be on a stretcher during transport. *Or does not require restraints during transport. *Or [place] does not require direct supervision during transport. *Or [place] does not require acute medical care during transport. indicates they have no access to a privately owned vehicle. Comment: unable to remove car from driveway, no other access Suggested medically appropriate forms of transportation: Taxi/Hired Car Bus Transit System Type of care being provided: Admission/Discharge Date travel is to commence: Jul buildings and grounds superintendent time (if needed): Estimated time frame will require transportation: One Time From: Other Location: Comment: [facility] To: (Facility Name): Home City/State: [place] Does the [place] have a certified medication aide or need the assistance of an attendant? No Does the travel with a service animal? No /shaq/ GILSON BOWENS Resident Physician Signed: 08/15/2024 08:05 /shaq/ Noam Molina MD, PhD Staff Physician Cosigned: 08/15/2024 10:36 GILSON BOWENS [facility] Aug 15, 2024 01:30 AM NURSING INPATIENT NOTE: [facility] NSG SHIFT ASSESSMENT STANDARD TITLE: NURSING INPATIENT NOTE DATE OF NOTE: AUG 15, 2024@01:30 ENTRY DATE: AUG 15, 2024@01:30:12 AUTHOR: MAY BROWN EXP COSIGNER: URGENCY: STATUS: COMPLETED Version 2.2 Charting in accordance with [place] [employer] [place] STANDARD ([facility]) ACUTE INPATIENT/REHABILITATION NURSING ADMISSION SCREENING, ASSESSMENT, AND STANDARDS OF CARE ASSESSMENT HANDOFF Bedside report and handoff completed Safety check completed PAIN ASSESSMENT Patient's acceptable pain goal: Are you currently experiencing pain? Yes - DVPRS scale used to assess Location: Abd/ esophagus/ left ear Defense and Veterans Pain Rating Scale (DVPRS): Pain Score: 7 BECKER FALL SCALE & TIPS PROGRAM Becker Fall Scale: The Becker Fall scale was performed and score was 25. This is indicative of moderate risk for falls. History of falling: immediate or within 3 months? No Secondary diagnosis: Yes Ambulatory aid: None/bedrest/nurse assist Intravenous therapy/Heparin lock: No Gait/Transferring: Weakness Mental Status: Oriented to own ability/knows own limitations Fall Tailoring Interventions for Patient Safety (TIPS) Fall TIPS initiated with patient: No Fall TIPS reviewed with patient: Yes Interventions: Assistance out of bed: Call for assistance before getting out of bed ENVIRONMENTAL SAFETY MANAGEMENT Implemented safety standards of care: -[place] to unit & environment -Adequate room lighting -Bed in low and locked position -Call light within reach -Personal items within reach -Traffic path in room free of clutter -Non-slip footwear -Upper/half length side rails up for bed mobility -Sensory aids within reach -Encourage patient to utilize sensory support NEUROLOGICAL Neurological Orientation: Oriented x4 Level of Consciousness (AVPU): Alert = Appears aware of and responsive to the environment on their own. Follows commands, opens eyes spontaneously, and tracks objects. 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 Edema: None RESPIRATORY Respirations: Unlabored Pattern: Regular Breath Sounds Auscultated: Anterior and posterior Left Upper Lobe: Clear Right Upper Lobe: Clear Right Middle Lobe: Clear Left Lower Lobe: Clear Right Lower Lobe: Clear Right Upper Lobe: Diminished Left Upper Lobe: Diminished Right Middle Lobe: Diminished Right Lower Lobe: Diminished Left Lower Lobe: Diminished GASTROINTESTINAL No bowel movement reported by patient Elimination: Continent Abdominal Description: Flat Palpation: Soft, Non-tender, Other: tender Bowel Sounds: RUQ: Active LUQ: Active RLQ: Active LLQ: Active Symptoms: Nausea GENITOURINARY Elimination: Continent INTEGUMENTARY/SKIN/WOUND - (INCLUDING BAUTISTA) SEE NOTE: VAAES SKIN INPECTION/ASSESSMENT IV LINES Peripheral IV: Line #1: Assessment: Location: Right, Antecubital Gauge: 20 Dressing Condition: Clean, dry, intact Site Condition: No redness, swelling, pain Line Status: Flushed /es/ MAY BROWN SCHOOL ATHLETIC DIRECTOR SCHOOL ATHLETIC DIRECTOR Signed: 08/15/2024 01:38 MAY BROWN [facility] Aug 15, 2024 01:10 AM NURSING NOTE: LOCAL TITLE: [facility] SKIN INSPECTION/ASSESSMENT STANDARD TITLE: NURSING NOTE DATE OF NOTE: AUG 15, 2024@01:10 ENTRY DATE: AUG 15, 2024@01:11 AUTHOR: MAY BROWN EXP COSIGNER: URGENCY: STATUS: COMPLETED Assessment Type: SKIN REINSPECTION/REASSESSMENT SKIN INSPECTION: Skin Color: Usual for ethnicity Skin Temperature: Warm Skin Moisture: Normal Skin Turgor: Elastic (normal/immediate) Bautista Skin Assessment: The patient's Bautista Scale Score is 18. The patient is at mild risk for development of pressure ulcer/injury. Sensory perception -- ability to respond meaningfully to pressure-related discomfort Slightly limited. Moisture -- degree to which skin is exposed to moisture Rarely moist. Activity -- ability to change and control body position Walks occasionally. Mobility -- ability to change and control body position Slightly limited. Nutrition -- usual food intake patterns Probably inadequate. Friction and shear No apparent problem. INTERVENTIONS: No change in previous interventions as listed below Pressure Ulcer-Education 07/19/2024 Educate Importance Of Changing Position Pressure Ulcer-Friction/Shear 07/19/2024 Head of Bed Below 30 Degrees When Not Eating Pressure Ulcer-Moisture 07/19/2024 Maintain Clean Dry Skin Pressure Ulcer-Nutrition 07/19/2024 Encourage Eating And Assist With Meals Monitor Fluid/Food Intake Offer Liquids Q2H When Turning Offer Ordered Supplements Pressure Ulcer-Pressure Reducing 07/19/2024 Frequent Position Changes Specialty Bed/Surface ICU bed Pressure Ulcer-Remobilize 07/19/2024 Encourage Activity As Tolerated Vaaes Pressure Injury Interventions 08/13/2024 Vaaes Pressure Injury Int Not Needed RISK FACTORS THAT INCREASE RISK FOR DEVELOPING PRESSURE INJURIES: The patient/resident has the following: Device(s): (nasogastric tubes, oxygen tubing, urinary catheters, cell phone etc.) Comment: Tele, IV Localized abnormality: Other: Location(s): Generalized scabs, entire body. /shaq/ MAY BROWN SCHOOL ATHLETIC DIRECTOR SCHOOL ATHLETIC DIRECTOR Signed: 08/15/2024 01:29 MAY BROWN [facility] Aug 14, 2024 06:32 PM NURSING NOTE: LOCAL TITLE: JEY PROGRESS NOTE STL STANDARD TITLE: NURSING NOTE DATE OF NOTE: AUG 14, 2024@18:32 ENTRY DATE: AUG 14, 2024@18:33:05 AUTHOR: KRISHNA RAMIREZ EXP COSIGNER: URGENCY: STATUS: COMPLETED called provider in regards to continued stabbing chest pain reported by the patient 6 out of 10. Tylenol administered at 1316 and a one time dose of simethicone ordered after first contact with provider at 1331 for the pain. Provider now at bedside. /shaq/ JEFF BAPTISTE, RN REGISTERED NURSE Signed: 08/14/2024 18:35 KRISHNA RAMIREZ [facility] Aug 14, 2024 02:21 PM GASTROENTEROLOGY INPATIENT NOTE: LOCAL TITLE: GASTROENTEROLOGY INPATIENT FOLLOW UP STL STANDARD TITLE: GASTROENTEROLOGY INPATIENT NOTE DATE OF NOTE: AUG 14, 2024@14:21 ENTRY DATE: AUG 14, 2024@14:21:23 AUTHOR: SHANE MEDEROS EXP COSIGNER: RADHA BROWN URGENCY: STATUS: COMPLETED CC: melena HPI: Pt. 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 Patient had EGD on 08/11/23 which demonstrated diffuse ulceration in the duodenum without active bleeding. Patient had repeat EGD today with banding of EV and biopsies of duodenal ulcerations. Vitals: 97.4 F [36.3 C] (08/14/2024 13:53)65 (08/14/2024 13:53)125/75 (08/14/2024 13:53)18 (08/14/2024 13:53) Measurement DT POx (L/MIN)(%) 08/14/2024 13:53 100 08/14/2024 08:02 96 08/14/2024 06:15 96 08/14/2024 04:04 98 General: NAD, alert, cooperative HEENT: EOMI, NC/AT Lungs: CTAB CV: RRR, normal S1/S2, no m/r/g Abdomen: soft, non tender to palpation, bowel sounds normal Ext: moves all ext, no edema Neuro: AAOx3, CN 2-12 grossly intact, no FND Psych: appropriate mood and affect INTERVAL TESTS: LABS: Hgb HGB 8.1 L g/dL 08/14/2024 06:00 Hct 24.0 % L (08/14/24 06:00) MCV 93.8 fL (08/14/24 06:00) Plt PLT 81 L 10*3/uL 08/14/2024 06:00 Iron, TIBC IRON 21 L ug/dL 08/11/2024 06:00 TIBC 263 ug/dL 08/11/2024 06:00 Patricio No FERRITIN EO data found BUN 10.3 mg/dL (08/13/24 19:10) Cr CREATININE 0.75 mg/dL 08/13/2024 19:10 Alb ALBUMIN 3.1 L g/dL 08/13/2024 19:10 Ca 8.3 mg/dL L (08/13/24 19:10) TSH TSH 3.991 uIU/mL 08/10/2024 11:30 Vit D No VITAMIN D 25 HYDROXY EO data found ALT 13 U/L (08/13/24 19:10) AST 30 U/L (08/13/24 19:10) TB TOTAL BILIRUBIN 0.4 mg/dL 08/13/2024 19:10 AP ALKALINE PHOSPHATASE 91 U/L 08/13/2024 19:10 INR INR VALUE 1.2 INR 08/14/2024 09:20 PROTIME 13.6 H sec 08/14/2024 09:20 IMAGING: Impression for CT ABDOMEN AND PELVIS W/CONTRAST, [...] hernias. Dictated by Kenneth Albright DO (radiology asst). I, Petros Mccord, have reviewed the images and report and concur with these findings. Impression for US ABDOMEN LTD, SINGLE ORG OR QUADRANT, 06/07/22, case [id number] 1. Ultrasound Category: 3 2. Visualization score: A 3. Other findings: Chronic liver disease. The hepatic vasculature is patent, please see above for details. US LI-RADS REFERENCE: US-1 negative: No evidence of HCC US-2 subthreshold: Observation(s) detected that may warrant short-interval US surveillance; observation <10 mm in diameter, not definitely benign. US-3 positive: Observation(s) detected that may warrant multiphase contrast-enhanced imaging; observation ? 10 mm in diameter or new thrombus in vein. Visualization Score: A: No or minimal limitations; limitations, if any, are unlikely to meaningfully affect sensitivity B: Moderate limitations; limitations my obscure small masses C: Severe limitations; limitations significantly lower sensitivity for focal liver lesions No Impressions found EGD 08/14/24 - Grade III esophageal varices with no stigmata of recent bleeding. Completely eradicated. Banded. - Erythematous mucosa in the antrum. - Non-obstructing non-bleeding duodenal (serpifinous) ulcers with no stigmata of bleeding. Suspicious for ICI enteritis. Biopsied. EGD 08/11/24 - Large (> 5 mm) esophageal varices. - LA Grade B esophagitis with no bleeding. - Non-bleeding gastric ulcer with no stigmata of bleeding. - Non-obstructing non-bleeding duodenal ulcers with no stigmata of bleeding suspicious for checkpoint inhibitor enteritis. - No specimens collected. EGD 07/18/24 - Small to medium sized esophageal varices. - Portal hypertensive gastropathy. EGD 05/16/23 The Diapharagmatic pinch, gastroesophageal junction and squamocolumnar junction were located at 43 cm . Esophagus Severe inflammation and thick layer of white plaques coating the entire oropharynx and eosphagus s/p brushings to evaluate for edenilson esophagitis. The exam was abbreviated due to severity of inflammation. Medium sized varices were seen however examination limited. Stomach IMP: #melena #acute on chronic anemia recent EGD without clear active bleeding culprit likely oozing from PHG at the time restarted on propranolol at discharge however seems to continue to bleed Hgb 8.8, then down to 7.1 overnight continues to have melena at this time DDX includes PHG, variceal, other UGIB. cannot rule out non-UGIB etiology including nose bleed from SCC or RSO changing stool/emesis color CT shows new duodenal wall thickening EGD demonstrated diffuse ulceration in the duodenum suspicious for checkpoint inhibitor enteritis. #cirrhosis #HCC Etiology: HCV, cured MELD: 10 Ascites: present on imaging EV: present on latest EGD HCC: present s/p TACE HE: no history REC: -follow up pathology results -ok for clear liquid diet today -completed 72h of octreotide gtt then stop -complete 5d total course of cftx 1g daily -IV pantoprazole 40mg BID to complete 72h then switch to oral 40mg BID -please ensure 2 large bore IVs -transfuse to maintain Hgb>7, plts>50 and INR<2 -monitor stools for signs of GI bleeding including hematochezia and melena -if patient develops hemodynamic instability please call GI fellow transition of care specialist Plan was discussed with the , the primary team and the GI attending on service: Dr Brown /shaq/ Shane Miles MD GASTROENTEROLOGY FELLOW Signed: 08/14/2024 14:36 /shaq/ RADHA BROWN MD Gastroenterology Staff Physician Cosigned: 08/15/2024 06:56 SHANE MEDEROS [facility] Aug 14, 2024 01:51 PM GASTROENTEROLOGY PROCEDURE NOTE: LOCAL TITLE: CP EGD STL STANDARD TITLE: GASTROENTEROLOGY PROCEDURE NOTE DATE OF NOTE: AUG 14, 2024@13:51:01 ENTRY DATE: AUG 14, 2024@13:51:01 AUTHOR: CLINICAL,DEVICE PRO EXP COSIGNER: URGENCY: STATUS: COMPLETED PROCEDURE SUMMARY CODE: Machine Resulted DATE/TIME PERFORMED: AUG 14, 2024@11:06:3 DOCUMENT IN VISTA IMAGING SEE FULL REPORT IN VISTA IMAGING SIGNATURE NOT REQUIRED SEE SIGNATURE IN VISTA IMAGING (ProVation (EGD) STL) AUTO-INSTRUMENT DIAGNOSIS Procedure: ExamEndo Upper GI endoscopy Release Status: Released Off-Line Verified Date Verified: Aug 14, 2024@13:50:59 [facility] GI Patient Name: Abraham Hawk Procedure Date: 08/14/2024 11:06 AM Date of : 1955 Age: 68 Procedure: Upper GI endoscopy Indications: Acute post hemorrhagic anemia, , Duodenal ulcer c/f ICI duodenitis, EV screeningk> 8 y Patient Profile: Refer to note in patient chart for documentation of history and physical. Providers: Uvaldo Gardner MD (Fellow) Referring MD: Requesting Provider: Medicines: Monitored Anesthesia Care Complications: No immediate complications. Procedure: Pre-Anesthesia Assessment: - Prior to the [...] Prior Anticoagulants: The patient has taken no anticoagulant or antiplatelet agents. ASA Grade Assessment: III - A patient with severe systemic disease. After reviewing the risks and benefits, the patient was deemed in satisfactory condition to undergo the procedure. After obtaining informed consent, the endoscope was passed under direct vision. Throughout the procedure, the patient's blood pressure, pulse, and oxygen saturations were monitored continuously. The scope was introduced through the mouth, and advanced to the second part of duodenum. The upper GI endoscopy was accomplished without difficulty. The patient tolerated the procedure well. Scope In: 11:14:01 AM Scope Out: 11:48:09 AM Findings: Three columns of grade III varices with no stigmata of recent bleeding were found in the middle third of the esophagus and in the lower third of the esophagus. Four bands were successfully placed with complete eradication, resulting in deflation of varices. Moderate portal hypertensive gastropathy was found in the entire examined stomach. Localized mildly erythematous mucosa without bleeding was found in the gastric antrum. Many non-obstructing, non-bleeding linear/serpiginous duodenal ulcers that were partially circumferential with no stigmata of bleeding were found in the duodenal bulb and in the first portion of the duodenum. The largest lesion was 20 mm in largest dimension. They had the appearance of crohn's disease like ulcerations. Biopsies were taken with a cold forceps for histology. Impression: - Grade III esophageal varices with no stigmata of recent bleeding. Completely eradicated. Banded. - Erythematous mucosa in the antrum. - Non-obstructing non-bleeding duodenal (serpifinous) ulcers with no stigmata of bleeding. Suspicious for ICI enteritis. Biopsied. Recommendation: - Await pathology results. - Repeat upper endoscopy in 4 weeks for retreatment. - Use a proton pump inhibitor PO BID for 3 months. - Clear liquid diet today. Advance as tolerated tomorrow. 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 - The patient is not currently taking anticoagulant or antiplatelet agents. - Return to normal activities tomorrow. Attending Participation: I was present and participated during the entire procedure, including non-gutierrez portions. Kavin Davis, 08/14/2024 1:50:58 PM Uvaldo Sheffield MD Number of Addenda: 0 Note Initiated On: 08/14/2024 11:06 AM Administrative Closure: 08/14/2024 by: CLINICAL,DEVICE PROXY SERVICE CLINICAL,DEVICE PROXY SERVICE [facility] Aug 14, 2024 12:19 PM GASTROENTEROLOGY PROCEDURE NOTE: LOCAL TITLE: CP EGD STL STANDARD TITLE: GASTROENTEROLOGY PROCEDURE NOTE DATE OF NOTE: AUG 14, 2024@12:19:51 ENTRY DATE: AUG 14, 2024@12:19:51 AUTHOR: CLINICAL,DEVICE PRO EXP COSIGNER: URGENCY: STATUS: COMPLETED PROCEDURE SUMMARY CODE: Machine Resulted DATE/TIME PERFORMED: AUG 14, 2024@11:06:3 DOCUMENT IN VISTA IMAGING SEE FULL REPORT IN VISTA IMAGING SIGNATURE NOT REQUIRED SEE SIGNATURE IN VISTA IMAGING (ProVation (EGD) STL) AUTO-INSTRUMENT DIAGNOSIS Procedure: NOTETYPE NURSE NOTE Release Status: Released Off-Line Verified Date Verified: Aug 14, 2024@12:19:51 [facility] Patient Name: Abraham Hawk GI Nurse Note Procedure(s): Upper GI endoscopy (08/14/2024 11:06:32 AM) Exam Date: 08/14/2024 Exam Date: 08/14/2024 Doctor: Kavin Davis Patient Name: Abraham Hawk : 1955 Gender: Male CHECK-IN User:[email or web address] Patient ID verified by 2 (Full Name, , MRN):YES ID band on:YES Prep taken:NO NPO Solids/Liquids:0001 x ice chips Admitted via:Ambulatory, Wheelchair Transportation after procedure:NO Comments: Pre-procedure teaching:Standard Preferred language: Kazakh: Who was educated: and responsible adult: Learns best by: Hearing/listening: Preprocedure teaching completed: Discharge planning and post procedure instructions reviewed: Motivation to learn: Motivated to learn: Ready to learn: Ready to learn: Barriers to learning: None: Education evaluation: Verbalizes complete understanding: Pre-Procedure / Active Medications Beta Lucia: Anticoagulant use: - Patient Denies Use MEDICATIONS REVIEWED IN EMR - SEE EMR FOR A COMPLETE LIST OF MEDICATIONS Confirmed 08/14/2024 see med list Confirmed 08/14/2024 ALLERGIES Lidocaine - Patient Denies Allergy - No Known Drug Allergies - Confirmed 08/14/2024 HEALTH HISTORY User:yanely MEDICAL HISTORY status:N/A Cardiovascular:NO Pulmonary:NO Psychiatric:NO Diabetes:NO SURGICAL HISTORY Previous surgery:YES Surgery: History of problems with anesthesia:NO Family history of problems with anesthesia:NO SOCIAL HISTORY Recreational drug use:YES Substance name(s):THC Frequency: Quit/Last use date: Nicotine/Smoking/Vaping history:NO Alcohol history:NO Have you had suicidal thoughts in the last 90 days:NO Do you have a staffing preference:NO ALERTS Alert Comments Last Updated By Last Updated On No Known Drug Allergies [email or web address] 08/14/2024 10:26:49 AM Lidocaine Patient Denies Allergy Unconfirmed PATIENT ASSESSMENT - PREPROCEDURE User:yanely Patient Assessment:Standard Does the patient currently have pain: None=0: Baseline behavior: Calm, Cooperative: Level of conciousness: Alert: Baseline orientation: Person, Place, Time, Event: Respiratory Status: Unlabored: Skin assessment: Warm, Dry: IV started:Received with IV access IV site:Right forearm Size:20 gauge IV solution:Saline Lock, Normal Saline (NS) IV rate:KVO Comments: Body Mass Index (BMI):Height (in): 72, Weight (lbs): 152, BMI (%): 20.6 PROCEDURE User:yanely Planned Sedation:Monitored Anesthesia Care (MAC) TIME OUT User:yanely UNIVERSAL PROTOCOL/TIME OUT [place] Protocol/ Time Out:Standard Correct Patient (full name/full SSN/or date of ): Yes: Correct Procedure (Special purpose arm band initialed): Yes: History and Physical completed: Yes: Allergies verified with patient: Yes: Consent or VA form [id number] (front and back) completed: Yes: Patient position confirmed as: Left Lateral: Time Out completed:08/14/2024 11:10 SAFETY MEASURES CONFIRMED WITH TEAM Antiplatelets/Anticoagulants reviewed:N/A Metal/Implanted devices reviewed:N/A Post-procedure Checklist User:yanely Post Checklist:Standard Nurse verbally confirms with MD/team: Name of procedure, Specimens identified and labeled (if applicable), Any equipment problems addressed: Endoscopist, Nurse and/or Flight Operations Specialist: Addressed the gutierrez concerns for recovery of patient: Reversal agents given: No: Patient: Tolerated procedure well, resting comfortably without facial grimacing, abdomen soft and non distended: RECOVERY QUESTIONS User:[email or web address] VALDOVINOS Phase 1 disposition:Phase 1 complete, patient is ready for Phase 2 Recovery Warm handoff from/to:x Recovery:Standard Bed lowered, stretcher locked, side rails up: Yes: IV site intact: Yes: Skin assessment: Warm, Dry, [place]: Abdominal exam: Soft to palpation, Nontender: Level of consciousness: Drowsy: Post-procedure respiratory exam: Unlabored: Comments: VAPAS Phase 2 User:[email or web address] VAPAS Phase 2 Score of 9 is fit for discharge from Phase 2 NOTE A score of 0 in any category or any deterioration in patient condition exudes eligibility for discharge unless approved by a qualified surgeon/proceduralist A selection is required for all sections Pain:2 Points - Minimal or none - Pain Score 0-4 or at tolerable level or at baseline Nausea/Vomitin Points - Minimal or none Circulatory Status:2 Points - BP/HR less than 20% or 20 mmHg of baseline Activity and Mental Status:2 Points - Oriented x 3 AND has steady gait (at baseline for non-ambulating patients) Surgical Site/Dressin points - Dry and clean or Not Applicable (for example endoscopy) Total Score of the Phase 2 assessment is 9 or greater:Yes Score of 9 is fit for discharge from Phase 2: Phase 2 Completed at:08/14/2024 12:19 Total Score of the Phase 2 assessment is 9 or greater:YES Patient is eligable for discharge: DISCHARGE QUESTIONS User:yanely Swallow, cough, gag reflexes present:YES Final abdominal exam:Soft to palpation, Nontender, Ascites Patient tolerates PO:YES Able to ambulate independently (or at baseline):YES Patient reminded of physicians instructions when to restart Blood Thinners:N/A Written instructions provided:Procedure Report, Discharge instructions Discharge teaching information provided to patient:None Discharge instructions given to:Patient Patient meets discharge criteria as set by physician and approved by facility:YES Post-procedure medications dispensed to:N/A Transportation after procedure:NO Comments: Patient items returned:N/A Discharged to:Home, Long Term Discharged via:Ambulatory Patient wristband(s) removed and disposed of in accordance with [place] policy:NO Patient refused: Patient was educated on the risk of improper disposal of patient wristband containing PII and PHI IV discontinued:NO Comments: Vitals Time BP HR RESP O2 Sat CO2 Entered By 12:19:29 153/90 62 22 100 - vhastlshannd 12:09:44 137/94 74 15 99.9 - vhastlshannd 12:03:56 128/90 78 15 99 - vhastlshannd 11:59:00 119/86 83 16 97.3 - vhastlshannd 11:54:27 119/77 77 13 97.2 - vhastlshannd 11:48:52 118/89 91 - 100 17 [facility] 10:34:43 128/75 61 12 92.4 - [facility] No Notes Taken PROCEDURE LOG Time Data Entered By 12:10:07 [facility] Phase 1 - YES : Oxygenation : 2 Points - Sp02 greater than or equal to 94% or baseline on room air, Respiratory Status : 2 Points - Normal breathing and deep cough on command, Circulatory Status : 2 Points - BP/HR less than 20% or 20 mmHg of baseline, Level of Consciousness : 2 Points - Fully awake or easily awakened, Pain : 2 Points - Minimal or none - Pain Score 0-4 or at tolerable level or at baseline, Nausea/Vomiting : 2 Points - Minimal or none, Level of Activity : 2 Points - Able to move all extremities voluntarily or on command or moves all extremelies with the exception of extremity treated with peripheral nerve block or patient baseline, Score (out of 14) : 14 [facility] 12:04:30 VAP Phase 1 - YES : Oxygenation : 2 Points - Sp02 greater than or equal to 94% or baseline on room air, Respiratory Status : 2 Points - Normal breathing and deep cough on command, Circulatory Status : 2 Points - BP/HR less than 20% or 20 mmHg of baseline, Level of Consciousness : 0 Points - Not responding or responding only with tactile stimulation, Pain : 2 Points - Minimal or none - Pain Score 0-4 or at tolerable level or at baseline, Nausea/Vomiting : 2 Points - Minimal or none, Level of Activity : 0 Points - Unable to voluntarily move extremities on command, Score (out of 14) : 10 [facility] 11:59:23 VAP Phase 1 - YES : Oxygenation : 2 Points - Sp02 greater than or equal to 94% or baseline on room air, Respiratory Status : 2 Points - Normal breathing and deep cough on command, Circulatory Status : 2 Points - BP/HR less than 20% or 20 mmHg of baseline, Level of Consciousness : 0 Points - Not responding or responding only with tactile stimulation, Pain : 2 Points - Minimal or none - Pain Score 0-4 or at tolerable level or at baseline, Nausea/Vomiting : 2 Points - Minimal or none, Level of Activity : 0 Points - Unable to voluntarily move extremities on command, Score (out of 14) : 10 [facility] 11:54:32 Cardiac rhythm : Sinus Rythm [facility] 11:54:22 VAPAS Phase 1 - YES : Oxygenation : 2 Points - Sp02 greater than or equal to 94% or baseline on room air, Respiratory Status : 2 Points - Normal breathing and deep cough on command, Circulatory Status : 2 Points - BP/HR less than 20% or 20 mmHg of baseline, Level of Consciousness : 0 Points - Not responding or responding only with tactile stimulation, Pain : 2 Points - Minimal or none - Pain Score 0-4 or at tolerable level or at baseline, Nausea/Vomiting : 2 Points - Minimal or none, Level of Activity : 0 Points - Unable to voluntarily move extremities on command, Score (out of 14) : 10 [facility] 11:47:24 Notes: EV banding x 4 [facility] 11:10:53 See Anesthesia note for Intra-procedure vitals and medications : YES [facility] 10:34:47 Cardiac rhythm : Sinus Rythm [facility] Specimens Collected Jar Sample Type Procedure Lab Type Location Indication Entered By 1 duodenal bx Upper GI endoscopy Histology - ds/aj 1123 [facility] Time Tracking Time Event Entered By 12:19:33 Discharged [facility] 11:53:37 Recovery [facility] 11:48:03 Procedure Stop Time [facility] 11:14:10 Procedure Start Time [facility] 10:25:45 Pre-procedure [facility] Provider Signatures Linda Jaquez RN ([facility]) ESIGNED - 08/14/2024 12:19:39 Administrative Closure: 08/14/2024 by: CLINICAL,DEVICE PROXY SERVICE CLINICAL,DEVICE PROXY SERVICE [facility] Aug 14, 2024 10:44 AM CONSENT: LOCAL TITLE: CONSENT CLINICAL IMED STANDARD TITLE: CONSENT DATE OF NOTE: AUG 14, 2024@10:44:32 ENTRY DATE: AUG 14, 2024@10:44:42 AUTHOR: FARNAZ SINGH EXP COSIGNER: URGENCY: STATUS: COMPLETED VistA Imaging - Scanned Document Signature Informed Consent for EGD with Possible Interventions ([place]) (Esophagogastroduodenoscopy (EGD) with Possible Interventions) 1. Anatomical Location: See description of treatment/procedure 2. Informed consent was obtained at 10:41 AM on 08/14/24. The full consent document can be accessed through [employer]. 3. Patient name: ABRAHAM HAWK 4. The patient HAS decision-making capacity. 5. Surrogate (if applicable): 6. Reason for the treatment (diagnosis, condition, or indication): To examine and treat the esophagus, stomach, and first part of small intestine for abnormalities and disease. 7. Treatment/procedure: Upper GI endoscopy or esophagogastroduodenoscopy (EGD) is a procedure to look at and treat problems in your esophagus (swallowing tube), stomach, and first part of your small intestine (duodenum). A flexible, steerable tube (endoscope) will be used. This tube has a light, camera and openings for tools. Before the procedure starts, your throat may be sprayed with some numbing medication. After that, you may be given medicine to make you sleepy (sedation). After you are sleepy, the tube will be passed through your mouth and into your esophagus, stomach, and duodenum. Several things can be done with the endoscope, depending on what is found. These include: * Take photographs. * Remove samples of tissue (biopsies). * Remove growths. * Control or prevent bleeding by injecting medicines, applying heat (cautery) or placing clips or rubber bands. * Stretch narrow areas with balloons or tapered plastic dilators. * Other things the doctor thinks are necessary. 8. Anesthesia will be administered. A member of the anesthesia care team will visit you before your treatment to discuss the type(s) of anesthesia you may need and to give you more information about anesthesia. It may become necessary to alter your anesthesia care plan after this discussion. Devices may be applied to your body and placed in your veins and arteries to monitor you during your anesthesia. All forms of anesthesia involve some risk. Minor (not life-threatening) risks include: nausea, vomiting, and pain where an injection is given. Although rare, severe complications include: injury to blood vessels, drug reactions, bleeding, blood clots, loss of sensation or limb function, infection, paralysis, stroke, brain damage, heart attack, and . Here is a basic description of the major types of anesthesia including their risks in addition to those described above: General anesthesia involves drugs that are injected into the bloodstream or breathed into the lungs. A tube or other device may be inserted into your airway to help you breathe. The expected benefit is that you will be totally unconscious and you will not feel pain during the procedure. Additional risks include: injury to the teeth, throat, eyes, or lung. In less than one case in a thousand, patients may be aware of activities during their surgery. Spinal or epidural analgesia/anesthesia involves a drug being injected through a needle or catheter placed into the spinal canal. The expected benefit is a temporary decreased feeling in the area of surgical incision, allowing surgery to proceed without pain. Additional risks include: headache, backache, convulsions, persistent weakness and or numbness, abnormal heart rhythms, and incomplete pain relief during the operation that may require general anesthesia. Major/minor nerve block involves a drug being injected near nerves providing loss or reduction of sensation and movement to the area. The expected benefit is a temporary loss of feeling and/or movement of a specific limb or area of your body. Additional risks include: convulsions, persistent weakness and or numbness, and incomplete pain relief during the operation that may require general anesthesia. Monitored anesthesia care involves monitoring of the heart and lungs to make sure that they are functioning adequately during your procedure. A local anesthetic will be injected to prevent pain, and the anesthesia care provider may use drugs to help you relax, and lessen any pain. You may remain conscious throughout your procedure, or you may be given medications that will make you unconscious. The expected benefit is that you will be comfortable during your operation with a minimum amount of anesthesia. This may result in a shorter stay in the hospital. Additional risks include: incomplete pain relief during the operation that may require additional anesthesia. Convulsions from the injected drug are a rare but serious complication. 9. Consent to Blood Products (if applicable): It is not expected that blood products will be used in this treatment/procedure. 10. Practitioner obtaining consent: JAMAAL Moctezuma 11. Supervising practitioner: Kavin Davis MD 12. Practitioner(s) performing or supervising treatment/procedure (if not listed above): Aaron Simons MD; Uvaldo Sheffield MD; Kenneth Moyer MD 13. Witness Name(s): 14. Comments: SCANNED DOCUMENT SIGNATURE NOT REQUIRED Electronically Filed: 08/14/2024 by: FARNAZ SINGH,IMEDWEBUSER [facility] Aug 14, 2024 08:08 AM NURSING INPATIENT NOTE: LOCAL TITLE: [facility] ACUTE INPATIENT NSG SHIFT ASSESSMENT STANDARD TITLE: NURSING INPATIENT NOTE DATE OF NOTE: AUG 14, 2024@08:08 ENTRY DATE: AUG 14, 2024@08:08:42 AUTHOR: KRISHNA RAMIREZ COSIGNER: URGENCY: STATUS: COMPLETED Version 2.2 Charting in accordance with [place] APPROVED [place] STANDARD ([facility]) ACUTE INPATIENT/REHABILITATION NURSING ADMISSION SCREENING, ASSESSMENT, AND STANDARDS OF CARE ASSESSMENT PAIN ASSESSMENT Patient's acceptable pain goal: 0 No pain Are you currently experiencing pain? No: Pain Score: 0 BECKER FALL SCALE & TIPS PROGRAM Becker Fall Scale: The Becker Fall scale was performed and score was 45. This is indicative of high risk for falls. History of falling: immediate or within 3 months? 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 Peripheral Pulses: All 4 extremities, 3+ normal. Edema: None RESPIRATORY Respirations: Unlabored Pattern: Regular Breath Sounds Auscultated: Anterior and posterior Left Upper Lobe: Clear Right Upper Lobe: Clear Right Middle Lobe: Clear Left Lower Lobe: Clear Right Lower Lobe: Clear GASTROINTESTINAL Last bowel movement: 2/17/25 Elimination: Continent Palpation: Soft Bowel Sounds: GENITOURINARY Elimination: Continent INTEGUMENTARY/SKIN/WOUND - (INCLUDING BAUTISTA) SEE NOTE: VAAES SKIN INPECTION/ASSESSMENT IV LINES Peripheral IV: Line #1: Assessment: Location: Right, Forearm Gauge: 20 Dressing Condition: Clean, dry, intact Site Condition: No redness, swelling, pain Line Status: Flushed /es/ JEFF BAPTISTE, RN REGISTERED NURSE Signed: 08/14/2024 08:12 KRISHNA RAMIREZ [facility] Aug 14, 2024 07:51 AM INTERNAL MEDICINE INPATIENT NOTE: LOCAL TITLE: MEDICINE GENERAL INPATIENT NOTE STANDARD TITLE: INTERNAL MEDICINE INPATIENT NOTE DATE OF NOTE: AUG 14, 2024@07:51 ENTRY DATE: AUG 14, 2024@07:51:48 AUTHOR: GILSON BOWENS COSIGNER: NOAM MOLINA URGENCY: STATUS: COMPLETED MEDICINE INPATIENT GENERAL NOTE ST[facility] 68 year old MALE admitted on Jul 18:08 for Last Admission: 08/10/24 6:08:28 pm Admit Dx: GI BLEED,UNCLEAR SOURCE. Subjective Complaints: NAEO. VSS. Afebrile. EGD with large varices, probably culprit lesions. Plan for repeat EGD today with bx. Rec for diag para if possible. Brief daily plan: - CBC Q12H - Hgb >7 - C/w octreotide for now - GI following, plan for EGD today - PT/INR daily + CMPs - C/w IV iron x 4 days (Day 2 of 4 today) Active Inpatient Medications: 1) INSULIN ASPART (NOVOLOG) INJ SQ Q6H SLIDING SCALE 2) GLUCAGON INJ IM PRN 1MG/1VIAL 3) GLUCOSE TAB,CHEWABLE PO PRN 16GM 4) DEXTROSE 50% INJ,SOLN IVP PRN 50 ML 5) ONDANSETRON INJ,SOLN IVP TID PRN 4MG/2ML 6) OCTREOTIDE INJ IV FOR GI BLEED 7) CEFTRIAXONE 2GM/BAG INJ,SOLN IVPB QDAILY Vital Signs: Pulse: 66 (08/12/2024 07:47) BP:129/83 (08/12/2024 07:47) RESP:18 (08/12/2024 07:47) Pain:0 (08/12/2024 09:02) Tmax: Pulse Oximetry: Weight: 152 lb [68.95 kg] (08/11/2024 00:00) Intake/Output: Skin: HEENT: Neck: No JVD Lungs: Breathing comfortably on room air Cardiovascular: RRR Abdominal: Non-focal, non-tender. Protuberant but no ascites. Rectal: : Extremities: Warm and well perfused. 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 # Vomiting # Nausea # Abdominal pain # History of HCC # History of cirrhosis, compensated # Known history varices Patient is at high risk for coagulopathy and has known varices. Given his history of nosebleeds and known malignancy, a posterior nasopharyngeal bleed is possibly the etiology of his nausea and vomiting. The black color suggests not UGIB but rather related to OTC meds being taken. Currently symptoms are managed and not vomiting. Given high propensity for catastrophic variceal bleeding and/or SBP, will treat empirically and plan for scope in AM. - Continue octreotide gtt, defer nadolol - IV PPI BID - Repeat eval for diag para today (not amenable yesterday) - CTX for SBP PPX - q12h cbc - ctm lfts - INR checks # Melena? Black tarry stools Given bleeding propensity, cannot dismiss stools as exclusively related to OTC suppositories being taken. Hgb drop also makes occult bleed more likely. EGD 08/10 showing large esophageal varices. LA Grade B esophagitis with no bleeding. Nonbleeding gastric ulcer. Nonbleeding duodenal ulcer. Planned for repeat EGD and biopsies on Tuesday. 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 Given he is bleeding from ecchymoses diffusely on skin, likely is intolerant of Keytruda therapy. ADALBERTO with TS 8%. Cobblestoning on back of throat suggestive for occult slow bleeding from posterior nasopharynx - Hold keytruda; tbw onc - Transfuse > 8 w/ bleeding, 7 if no evidence of bleeding - Cbcs, vital signs - IV Iron - ENT aware, can consult if significant bleeding identified Anderson: No Lines No VTE prophylaxis: Contraindicated Life Sustaining Treatment Orders Cohort: Reminder Term: VA-LIFE SUSTAINING TREATMENT ORDERABLE ITEMS Orderable Item: LST FULL CODE 07/17/2024@19:08 Status: active, Start date: 07/17/2024@19:08, Stop date: missing Duration: 26 D Disposition: Living arrangements prior to admission: Home Anticipate discharge date: 08/15/24 Anticipate discharge to: Home /shaq/ GILSON BOWENS Resident Physician Signed: 08/14/2024 07:53 /shaq/ Noam Molina MD, PhD Staff Physician Cosigned: 08/14/2024 11:22 GILSON BOWENS [facility] Aug 13, 2024 08:00 PM NURSING INPATIENT NOTE: LOCAL TITLE: [facility] ACUTE INPATIENT NSG SHIFT ASSESSMENT STANDARD TITLE: NURSING INPATIENT NOTE DATE OF NOTE: AUG 13, 2024@20:00 ENTRY DATE: AUG 13, 2024@22:34:30 AUTHOR: ARTURO PINK MUKUL COSIGNER: URGENCY: STATUS: COMPLETED Version 2.2 Charting in accordance with [place]ED [place] STANDARD (VAAES) ACUTE INPATIENT/REHABILITATION NURSING ADMISSION SCREENING, ASSESSMENT, AND STANDARDS OF CARE ASSESSMENT HANDOFF Bedside report and handoff completed Safety check completed PAIN ASSESSMENT Patient's acceptable pain goal: Are you currently experiencing pain? Yes - DVPRS scale used to assess Location: Abdomen [facility] and [facility] Pain Rating Scale (DVPRS): Pain Score: 6 ENVIRONMENTAL SAFETY MANAGEMENT Implemented safety standards of care: -[place] to unit & environment -Adequate room lighting -Bed in low and locked position -Call light within reach -Personal items within reach -Traffic path in room free of clutter -Non-slip footwear -Upper/half length side rails up for bed mobility -Sensory aids within reach -Encourage patient to utilize sensory support NEUROLOGICAL Neurological Orientation: Oriented x4 Level of Consciousness (AVPU): Alert = Appears aware of and responsive to the environment on their own. Follows commands, opens eyes spontaneously, and tracks objects. 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 Peripheral Pulses: All 4 extremities, 3+ normal. Edema: None RESPIRATORY Respirations: Unlabored Pattern: Breath Sounds Auscultated: Anterior only Left Upper Lobe: Clear Right Upper Lobe: Clear Right Middle Lobe: Clear Left Lower Lobe: Clear Right Lower Lobe: Clear GASTROINTESTINAL Elimination: Continent Abdominal Description: Flat Palpation: Soft, Non-tender Bowel Sounds: RUQ: Active LUQ: Active RLQ: Active LLQ: Active GENITOURINARY Elimination: Continent INTEGUMENTARY/SKIN/WOUND - (INCLUDING BAUTISTA) SEE NOTE: VAAES SKIN INPECTION/ASSESSMENT IV LINES Peripheral IV: Line #1: Assessment: Location: Right, Forearm Gauge: 20 Dressing Condition: Clean, dry, intact Site Condition: No redness, swelling, pain Line Status: Capped Flushed /es/ ARTURO PINK REGISTERED NURSE Signed: 08/13/2024 22:38 ARTURO PINK [facility] Aug 13, 2024 08:00 PM NURSING NOTE: LOCAL TITLE: VAAES SKIN INSPECTION/ASSESSMENT STANDARD TITLE: NURSING NOTE DATE OF NOTE: AUG 13, 2024@20:00 ENTRY DATE: AUG 13, 2024@22:39:05 AUTHOR: ARTURO PINK EXP COSIGNER: URGENCY: STATUS: COMPLETED Assessment Type: SKIN REINSPECTION/REASSESSMENT SKIN INSPECTION: Skin Color: Usual for ethnicity Skin Temperature: Warm Skin Moisture: Normal Skin Turgor: Elastic (normal/immediate) Bautista Skin Assessment: The patient's Bautista Scale Score is 20. The patient is considered not at risk for development of pressure ulcers/injuries. Sensory perception -- ability to respond meaningfully to pressure-related discomfort No impairment. Moisture -- degree to which skin is exposed to moisture Rarely moist. Activity -- ability to change and control body position Walks occasionally. Mobility -- ability to change and control body position Slightly limited. Nutrition -- usual food intake patterns Adequate. Friction and shear No apparent problem. INTERVENTIONS: The pressure injury interventions were not needed - patient/resident is not at risk. RISK FACTORS THAT INCREASE RISK FOR DEVELOPING PRESSURE INJURIES: The patient/resident has the following: Device(s): (nasogastric tubes, oxygen tubing, urinary catheters, cell phone etc.) Comment: tele leads, pulse ox, bp cuff Localized abnormality: Other: Location(s): Scabs throughout body // ARTURO PINK REGISTERED NURSE Signed: 08/13/2024 22:43 ARTURO PINK [facility] Aug 13, 2024 12:18 PM NURSING NOTE: [facility] IV INSERTION AND MAINTENANCE STANDARD TITLE: NURSING NOTE DATE OF NOTE: AUG 13, 2024@12:18 ENTRY DATE: AUG 13, 2024@12:19:51 AUTHOR: KRISHNA RAMIREZ EXP COSIGNER: URGENCY: STATUS: COMPLETED Version 2.2 Charting in accordance with [place] STANDARD (COAES) ACUTE INPATIENT/REHABILITATION NURSING ADMISSION SCREENING, ASSESSMENT, AND STANDARDS OF CARE IV Line Insertion and Maintenance Peripheral IV Line #1: Discontinue: Location: Right Date/Time: Jul@12:20 Reason for discontinuation: Infiltration Line #2: Insertion: Date/Time: Jul@12:20 Inserted by (name): Jacob Location: Right, Forearm Gauge: 20 Assessment: Location: Right, Forearm Gauge: 20 Dressing Condition: Clean, dry, intact Site Condition: No redness, swelling, pain Line Status: Flushed Positive blood return /es/ JEFF BAPTISTE, RN REGISTERED NURSE Signed: 08/13/2024 12:23 KRISHNA RAMIREZ [facility] Aug 13, 2024 10:02 AM GASTROENTEROLOGY INPATIENT NOTE: LOCAL TITLE: GASTROENTEROLOGY INPATIENT FOLLOW UP [facility] STANDARD TITLE: GASTROENTEROLOGY INPATIENT NOTE DATE OF NOTE: AUG 13, 2024@10:02 ENTRY DATE: AUG 13, 2024@10:02:37 AUTHOR: SHANE MEDEROS COSIGNER: RADHA BROWN URGENCY: STATUS: COMPLETED CC: siva HPI: Pt. 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 Patient had EGD on 08/11/23 which demonstrated diffuse ulceration in the duodenum without active bleeding. Over the past 2 days, patient's Hgb has been stable without evidence of continued blood loss. Vitals: 97.9 F [36.6 C] (08/13/2024 08:40)56 (08/13/2024 08:40)125/81 (08/13/2024 08:40)15 (08/13/2024 08:40) Measurement DT POx (L/MIN)(%) 08/13/2024 08:40 100 08/13/2024 04:53 96 08/12/2024 21:19 100 08/12/2024 17:17 100 General: NAD, alert, cooperative HEENT: EOMI, NC/AT Lungs: CTAB CV: RRR, normal S1/S2, no m/r/g Abdomen: soft, non tender to palpation, bowel sounds normal Ext: moves all ext, no edema Neuro: AAOx3, CN 2-12 grossly intact, no FND Psych: appropriate mood and affect INTERVAL TESTS: LABS: Hgb HGB 8.1 L g/dL 08/13/2024 06:00 Hct 24.8 % L (08/13/24 06:00) MCV 95.0 fL (08/13/24 06:00) Plt PLT 75 L 10*3/uL 08/13/2024 06:00 Iron, TIBC IRON 21 L ug/dL 08/11/2024 06:00 TIBC 263 ug/dL 08/11/2024 06:00 Patricio No FERRITIN EO data found BUN 16.8 mg/dL (08/10/24 20:00) Cr CREATININE 0.84 mg/dL 08/10/2024 20:00 Alb ALBUMIN 2.6 L g/dL 08/11/2024 06:00 Ca 8.4 mg/dL (08/10/24 20:00) TSH TSH 3.991 uIU/mL 08/10/2024 11:30 Vit D No VITAMIN D 25 HYDROXY EO data found ALT 10 U/L (08/11/24 06:00) AST 28 U/L (08/11/24 06:00) TB TOTAL BILIRUBIN 0.8 mg/dL 08/11/2024 06:00 AP ALKALINE PHOSPHATASE 72 U/L 08/11/2024 06:00 IMAGING: Impression for CT ABDOMEN AND PELVIS W/CONTRAST, [...] hernias. Dictated by Kenneth Albright DO (radiology asst). I, Petros Mccord, have reviewed the images and report and concur with these findings. Impression for US ABDOMEN LTD, SINGLE ORG OR QUADRANT, 06/07/22, case [id number] 1. Ultrasound Category: 3 2. Visualization score: A 3. Other findings: Chronic liver disease. The hepatic vasculature is patent, please see above for details. US LI-RADS REFERENCE: US-1 negative: No evidence of HCC US-2 subthreshold: Observation(s) detected that may warrant short-interval US surveillance; observation <10 mm in diameter, not definitely benign. US-3 positive: Observation(s) detected that may warrant multiphase contrast-enhanced imaging; observation ? 10 mm in diameter or new thrombus in vein. Visualization Score: A: No or minimal limitations; limitations, if any, are unlikely to meaningfully affect sensitivity B: Moderate limitations; limitations my obscure small masses C: Severe limitations; limitations significantly lower sensitivity for focal liver lesions No Impressions found EGD 07/11/24 - Large (> 5 mm) esophageal varices. - LA Grade B esophagitis with no bleeding. - Non-bleeding gastric ulcer with no stigmata of bleeding. - Non-obstructing non-bleeding duodenal ulcers with no stigmata of bleeding suspicious for checkpoint inhibitor enteritis. - No specimens collected. EGD 07/18/24 - Small to medium sized esophageal varices. - Portal hypertensive gastropathy. EGD 05/16/23 The Diapharagmatic pinch, gastroesophageal junction and squamocolumnar junction were located at 43 cm . Esophagus Severe inflammation and thick layer of white plaques coating the entire oropharynx and eosphagus s/p brushings to evaluate for edenilson esophagitis. The exam was abbreviated due to severity of inflammation. Medium sized varices were seen however examination limited. Stomach IMP: #melena #acute on chronic anemia recent EGD without clear active bleeding culprit likely oozing from PHG at the time restarted on propranolol at discharge however seems to continue to bleed Hgb 8.8, then down to 7.1 overnight continues to have melena at this time DDX includes PHG, variceal, other UGIB. cannot rule out non-UGIB etiology including nose bleed from SCC or RSO changing stool/emesis color CT shows new duodenal wall thickening EGD demonstrated diffuse ulceration in the duodenum suspicious for checkpoint inhibitor enteritis. #cirrhosis #HCC Etiology: HCV, cured MELD: 10 Ascites: present on imaging EV: present on latest EGD HCC: present s/p TACE HE: no history REC: -tentative plan to repeat EGD tomorrow for biopsies of lesions -please make patient NPO at midnight -please check CBC, CMP and INR before procedure -completed 72h of octreotide gtt then stop -complete 5d total course of cftx 1g daily -IV pantoprazole 40mg BID -please ensure 2 large bore IVs -transfuse to maintain Hgb>7, plts>50 and INR<2 -monitor stools for signs of GI bleeding including hematochezia and melena -please hold all antiplts and anticoagulation -if patient develops hemodynamic instability please call GI fellow transition of care specialist Plan was discussed with the [place], the primary team and the GI attending on service: Dr Brown /shaq/ Shane Miles MD GASTROENTEROLOGY FELLOW Signed: 08/13/2024 10:08 /shaq/ RADHA BROWN MD Gastroenterology Staff Physician Cosigned: 08/13/2024 12:09 SHANE MEDEROS [facility] Aug 13, 2024 09:51 AM NURSING NOTE: LOCAL TITLE: VAAES NSG IV INSERTION AND MAINTENANCE STANDARD TITLE: NURSING NOTE DATE OF NOTE: AUG 13, 2024@09:51 ENTRY DATE: AUG 13, 2024@09:52:29 AUTHOR: KRISHNA RAMIREZ EXP COSIGNER: URGENCY: STATUS: COMPLETED Version 2.2 Charting in accordance with [facility] [place] STANDARD (COAES) ACUTE INPATIENT/REHABILITATION NURSING ADMISSION SCREENING, ASSESSMENT, AND STANDARDS OF CARE IV Line Insertion and Maintenance Peripheral IV Line #1: Discontinue: Location: Right, Antecubital Date/Time: Jul@09:52 Reason for discontinuation: Infiltration /es/ JEFF BAPTISTE, RN REGISTERED NURSE Signed: 08/13/2024 09:53 KRISHNA RAMIREZ [facility] Aug 13, 2024 09:14 AM NURSING NOTE: LOCAL TITLE: VAAES SKIN INSPECTION/ASSESSMENT STANDARD TITLE: NURSING NOTE DATE OF NOTE: AUG 13, 2024@09:14 ENTRY DATE: AUG 13, 2024@09:14:17 AUTHOR: KRISHNA RAMIREZ EXP COSIGNER: URGENCY: STATUS: COMPLETED Assessment Type: INITIAL SKIN INSPECTION/ASSESSMENT SKIN INSPECTION: Skin Color: Usual for ethnicity Skin Temperature: Warm Skin Moisture: Normal Skin Turgor: Elastic (normal/immediate) Bautista Skin Assessment: The patient's Bautista Scale Score is 19. The patient is considered not at risk for development of pressure ulcers/injuries. Sensory perception -- ability to respond meaningfully to pressure-related discomfort No impairment. Moisture -- degree to which skin is exposed to moisture Rarely moist. Activity -- ability to change and control body position Walks occasionally. Mobility -- ability to change and control body position Slightly limited. Nutrition -- usual food intake patterns Adequate. Friction and shear Potential problem. INTERVENTIONS: The pressure injury interventions were not needed - patient/resident is not at risk. RISK FACTORS THAT INCREASE RISK FOR DEVELOPING PRESSURE INJURIES: The patient/resident has the following: Device(s): (nasogastric tubes, oxygen tubing, urinary catheters, cell phone etc.) Localized abnormality: Other: Location(s): scabs reji /es/ JEFF BAPTISTE, RN REGISTERED NURSE Signed: 08/13/2024 09:15 KRISHNA RAMIREZ [facility] Aug 13, 2024 09:10 AM NURSING INPATIENT NOTE: LOCAL TITLE: [facility] ACUTE INPATIENT NSG SHIFT ASSESSMENT STANDARD TITLE: NURSING INPATIENT NOTE DATE OF NOTE: AUG 13, 2024@09:10 ENTRY DATE: AUG 13, 2024@09:10:18 AUTHOR: KRISHNA RAMIREZ EXP COSIGNER: URGENCY: STATUS: COMPLETED Version 2.2 Charting in accordance with [facility] [place] STANDARD (COAES) ACUTE INPATIENT/REHABILITATION NURSING ADMISSION SCREENING, ASSESSMENT, AND STANDARDS OF CARE ASSESSMENT PAIN ASSESSMENT Patient's acceptable pain goal: 0 No pain Are you currently experiencing pain? No: Pain Score: 0 BECKER FALL SCALE & TIPS PROGRAM Becker Fall Scale: The Becker Fall scale was performed and score was 45. This is indicative of high risk for falls. History of falling: immediate or within 3 months? No Secondary diagnosis: Yes Ambulatory aid: None/bedrest/nurse assist Intravenous therapy/Heparin lock: Yes Gait/Transferring: Weakness Mental Status: Oriented to own ability/knows own limitations NEUROLOGICAL Neurological Orientation: Oriented x4 Level of Consciousness (AVPU): Alert = Appears aware of and responsive to the environment on their own. Follows commands, opens eyes spontaneously, and tracks objects. 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 Peripheral Pulses: All 4 extremities, 3+ normal. Edema: None RESPIRATORY Respirations: Unlabored Pattern: Regular Breath Sounds Auscultated: Anterior and posterior Left Upper Lobe: Clear Right Upper Lobe: Clear Right Middle Lobe: Clear Left Lower Lobe: Clear Right Lower Lobe: Clear GASTROINTESTINAL Elimination: Continent Abdominal Description: Flat Palpation: Soft Bowel Sounds: RUQ: Active LUQ: Active RLQ: Active LLQ: Active GENITOURINARY Elimination: Continent INTEGUMENTARY/SKIN/WOUND - (INCLUDING BAUTISTA) SEE NOTE: VAAES SKIN INPECTION/ASSESSMENT IV LINES Peripheral IV: Line #1: Assessment: Location: Right, Forearm Gauge: 20 Dressing Condition: Clean, dry, intact Site Condition: No redness, swelling, pain Line Status: Flushed Line #2: Assessment: Location: Right, Upper arm Gauge: 20 Dressing Condition: Clean, dry, intact Site Condition: Line Status: Flushed /es/ JFEF BAPTISTE, RN REGISTERED NURSE Signed: 08/13/2024 09:13 KRISHNA RAMIREZ [facility] Aug 13, 2024 07:33 AM INTERNAL MEDICINE INPATIENT NOTE: LOCAL TITLE: MEDICINE GENERAL INPATIENT NOTE STANDARD TITLE: INTERNAL MEDICINE INPATIENT NOTE DATE OF NOTE: AUG 13, 2024@07:33 ENTRY DATE: AUG 13, 2024@07:33:46 AUTHOR: GILSON BOWENS EXP COSIGNER: NOAM MOLINA URGENCY: STATUS: COMPLETED MEDICINE INPATIENT GENERAL NOTE STL 68 year old MALE admitted on Jul 18:08 for Last Admission: 08/10/24 6:08:28 pm Admit Dx: GI BLEED,UNCLEAR SOURCE. Subjective Complaints: NAEO. VSS. Afebrile. EGD with large varices, probably culprit lesions. Plan for repeat EGD Tues with bx. Rec for diag para if possible. Brief daily plan: - CBC Q12H - Hgb >7 - C/w octreotide for now - GI following appreciate recs, plan for repeat EGD tomorrow - F/u h pylori antigen testing Active Inpatient Medications: 1) INSULIN ASPART (NOVOLOG) INJ SQ Q6H SLIDING SCALE 2) GLUCAGON INJ IM PRN 1MG/1VIAL 3) GLUCOSE TAB,CHEWABLE PO PRN 16GM 4) DEXTROSE 50% INJ,SOLN IVP PRN 50 ML 5) ONDANSETRON INJ,SOLN IVP TID PRN 4MG/2ML 6) OCTREOTIDE INJ IV FOR GI BLEED 7) CEFTRIAXONE 2GM/BAG INJ,SOLN IVPB QDAILY Vital Signs: Pulse: 66 (08/12/2024 07:47) BP:129/83 (08/12/2024 07:47) RESP:18 (08/12/2024 07:47) Pain:0 (08/12/2024 09:02) Tmax: Pulse Oximetry: Weight: 152 lb [68.95 kg] (08/11/2024 00:00) Intake/Output: Skin: HEENT: Neck: No JVD Lungs: Breathing comfortably on room air Cardiovascular: RRR Abdominal: Non-focal, non-tender. Protuberant but no ascites. Rectal: : Extremities: Warm and well perfused. Bruising and bleeding from skin diffusely Musculoskeletal: Neuro: Psych: Recent Labs: BASIC METABOLIC PANEL: SODIUM 133 L mEq/L 08/10/2024 20:00 POTASSIUM 3.5 mEq/L 08/10/2024 20:00 CHLORIDE 103 mEq/L 08/10/2024 20:00 UREA NITROGEN 16.8 mg/dL 08/10/2024 20:00 CREATININE 0.84 mg/dL 08/10/2024 20:00 CALCIUM 8.4 mg/dL 08/10/2024 20:00 CARBON DIOXIDE 23 mEq/L 08/10/2024 20:00 GLUCOSE 104 H mg/dL 08/10/2024 20:00 EGFR (CKD-EPI 2020) 95.6 08/10/2024 20:00 WBC: 3.0 10*3/uL L (08/12/24 07:35) HCT: 24.8 % L (08/12/24 07:35) HGB: HGB 8.0 L g/dL 08/12/2024 07:35 Plt: PLT 75 L 10*3/uL 08/12/2024 07:35 CK-MB: ____ TROPONIN I HISTORY: No data available Other Labs and Data: Assessment/Plan: This is a 68 yo M with 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 # Vomiting # Nausea # Abdominal pain # History of HCC # History of cirrhosis, compensated # Known history varices Patient is at high risk for coagulopathy and has known varices. Given his history of nosebleeds and known malignancy, a posterior nasopharyngeal bleed is possibly the etiology of his nausea and vomiting. The black color suggests not UGIB but rather related to OTC meds being taken. Currently symptoms are managed and not vomiting. Given high propensity for catastrophic variceal bleeding and/or SBP, will treat empirically and plan for scope in AM. - Continue octreotide gtt, defer nadolol - IV PPI BID - Repeat eval for diag para today - CTX for SBP PPX - q12h cbc - ctm lfts - blood cultures # Melena? Black tarry stools Given bleeding propensity, cannot dismiss stools as exclusively related to OTC suppositories being taken. Hgb drop also makes occult bleed more likely. EGD 08/10 showing large esophageal varices. LA Grade B esophagitis with no bleeding. Nonbleeding gastric ulcer. Nonbleeding duodenal ulcer. Planned for repeat EGD and biopsies on Tuesday. - GI following, repeat EGD/biopsies on Tuesday # ABLA # ADALBERTO Most likely acute blood loss related given 3g drop. Given he is bleeding from ecchymoses diffusely on skin, likely is intolerant of Keytruda therapy. ADALBERTO with TS 8%. - Hold keytruda; tbw onc - Transfuse > 8 w/ bleeding, 7 if no evidence of bleeding - Cbcs, vital signs - IV Iron Anderson: No Lines No VTE prophylaxis: Life Sustaining Treatment Orders Cohort: Reminder Term: VA-LIFE SUSTAINING TREATMENT ORDERABLE ITEMS Orderable Item: LST FULL CODE 07/17/2024@19:08 Status: active, Start date: 07/17/2024@19:08, Stop date: missing Duration: 26 D Disposition: Living arrangements prior to admission: Home Anticipate discharge date: 08/15/24 Anticipate discharge to: Home /shaq/ GILSON BOWENS Resident Physician Signed: 08/13/2024 07:44 /shaq/ Noam Molina MD, PhD Staff Physician Cosigned: 08/13/2024 17:49 GILSON BOWENS [facility] Aug 13, 2024 06:15 AM NURSING INPATIENT NOTE: LOCAL TITLE: [facility] PATIENT SAFETY CHECK [facility] STANDARD TITLE: NURSING INPATIENT NOTE DATE OF NOTE: AUG 13, 2024@06:15 ENTRY DATE: AUG 13, 2024@06:16:04 AUTHOR: MARLENE SANCHEZ COSIGNER: URGENCY: STATUS: COMPLETED BEDSIDE SAFETY CHECK ST[facility] Visual inspection of wounds, incisions, and drains. IV infusions: IV tubing dated:N/A IV bags dated:N/A IV infusions traced from bag to the infusion site with validation of IV pump settings: N/A Incision(s) inspected:N/A Drain(s) inspected:N/A Wounds Inspected: N/A Catheters inspected:N/A A visual sweep of the patient's room for any physical or environmental safety concerns was completed and education provided to patient regarding their personal safety concerns. /shaq/ MARLENE CARSONN RN REGISTERED NURSE Signed: 08/13/2024 06:16 OPAL SANCHEZ [facility] Aug 13, 2024 04:54 AM NURSING INPATIENT NOTE: LOCAL TITLE: [facility] ACUTE INPATIENT NSG SHIFT ASSESSMENT STANDARD TITLE: NURSING INPATIENT NOTE DATE OF NOTE: AUG 13, 2024@04:54 ENTRY DATE: AUG 13, 2024@04:54:41 AUTHOR: MARLENE SANCHEZER: URGENCY: STATUS: COMPLETED Version 2.2 Charting in accordance with [facility] [place] STANDARD ([facility]) ACUTE INPATIENT/REHABILITATION NURSING ADMISSION SCREENING, ASSESSMENT, AND STANDARDS OF CARE REASSESSMENT PAIN ASSESSMENT Patient's acceptable pain goal: 4 Distracts me, can do usual activities Are you currently experiencing pain? Yes - DVPRS scale used to assess Location: abdomen Defense and Veterans Pain Rating Scale (DVPRS): 8 Awful, hard to do anything Pain Score: 8 Primary Pain Assessment: Pain Type: Acute Describe Pain (Quality): Musculoskeletal: Aching Pain Alleviating Interventions: Medication, see MAR Positioning Therapeutic modalities (i.e., aroma, music, relaxation) ENVIRONMENTAL SAFETY MANAGEMENT Implemented safety standards of care: -[place]eland to unit & environment -Adequate room lighting -Bed in low and locked position -Call light within reach -Personal items within reach -Traffic path in room free of clutter -Non-slip footwear -Upper/half length side rails up for bed mobility -Sensory aids within reach -Encourage patient to utilize sensory support NEUROLOGICAL Neurological Orientation: Oriented x4 Level of Consciousness (AVPU): Alert = Appears aware of and responsive to the environment on their own. Follows commands, opens eyes spontaneously, and tracks objects. 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 Peripheral Pulses: All 4 extremities, 3+ normal. Edema: None RESPIRATORY Respirations: Unlabored Pattern: Regular Breath Sounds Auscultated: Anterior and posterior Left Upper Lobe: Clear Right Upper Lobe: Clear Right Middle Lobe: Clear Left Lower Lobe: Clear Right Lower Lobe: Clear GASTROINTESTINAL Last bowel movement: 08/10/2024 Bowel movement reported by patient-unwitnessed Elimination: Continent Abdominal Description: Rounded Palpation: Soft, Non-tender Bowel Sounds: RUQ: Active LUQ: Active RLQ: Active LLQ: Active GENITOURINARY Elimination: Continent MOBILITY Mobility Status: Independent: Able to stand and step without staff assistance Gait: Steady IV LINES Peripheral IV: Line #1: Assessment: Location: Right, Forearm Gauge: 20 Dressing Condition: Clean, dry, intact Transparent dressing Site Condition: No redness, swelling, pain Line Status: Patent/infusing Line #2: Assessment: Location: Right, Upper arm Gauge: 20 Dressing Condition: Clean, dry, intact Transparent dressing Site Condition: No redness, swelling, pain Line Status: Flushed Positive blood return Reassessment completed. Pt was able to sleep off and on throughout the night. Tylenol given per request. No other needs expressed. BG 139. All I&Os are documented in cp flowsheet. /eze AGUILAR RN REGISTERED NURSE Signed: 08/13/2024 05:00 OPAL SANCHEZ [facility] Aug 13, 2024 02:13 AM NURSING NOTE: LOCAL TITLE: JEY PROGRESS NOTE STL STANDARD TITLE: NURSING NOTE DATE OF NOTE: AUG 13, 2024@02:13 ENTRY DATE: AUG 13, 2024@02:13:20 AUTHOR: MARLENE SANCHEZ COSIGNER: URGENCY: STATUS: COMPLETED JEY PROGRESS NOTE STL Has ADDENDA Pt appears asleep, RR even and unlabored. Call light and personal belongings are within reach. /eze AGUILAR RN REGISTERED NURSE Signed: 08/13/2024 02:14 08/13/2024 ADDENDUM STATUS: COMPLETED Pt was up at 0300 requesting something for puritis. PRN Hydroxyzine PO given with relief. Pt is now asleep, no issue noted. /eze AGUILAR RN REGISTERED NURSE Signed: 08/13/2024 04:05 OPAL SANCHEZ [facility] Aug 13, 2024 12:27 AM NURSING TREATMENT PLAN NOTE: LOCAL TITLE: JEY PLAN OF CARE STANDARD TITLE: NURSING TREATMENT PLAN NOTE DATE OF NOTE: AUG 13, 2024@00:27 ENTRY DATE: AUG 13, 2024@00:27:32 AUTHOR: SANCHEZ,MARLENE EXP COSIGNER: URGENCY: STATUS: COMPLETED Plan of Care and Discharge Plan (nurse) TREATMENT PLAN Patient involved in making decisions about their care, treatment and plan for discharge Yes Date: Jul Is the patient a fall risk? Yes. NURSING DIAGNOSIS: Falls Potential/Actual Injury Goals: Prior to discharge, patient will:--Injury due to fall will be minimized during hospital stay, --Verbalize safety measures to lower risk of fall/injury (lock w/c, use hand rails, ask for assistance) , --Identify factor(s) that may increase risk of fall before discharge, --Maintain or preserve physical mobility during hospital stay Interventions: * Score 45 --Encourage pt to ask for assistance (NSG, ), --Keep night light and bathroom light on at night, --Check for elimination needs every 2 hours, --Provide non slip footwear when ambulating (NSG), --Place bed in low position or use low bed Care plan status: Continued Progress toward goals documented continuously through progress notes Patient Education(Nursing,SWS,PT/OT,Dietici an,Casting Machine Service Operator,&Physician) Instruct as to: Does patient have pain and/or chest pain? Yes, Pain NURSING DIAGNOSIS: Alteration in comfort: pain related to Goals: Prior to discharge, patient will:--Injury due to fall will be minimized during hospital stay, --Identify factor(s) that may increase risk of fall before discharge, --Maintain or preserve physical mobility during hospital stay--Be able to participate in daily activities, --Achieve acceptable pain level per patient, --Verbalize satisfaction with pain management ongoing, --Verbalize understanding of disease., --Be free of injury during hospital stay, --Identify techniques that prevent, decrease pain and improve coping mechanism i.e. relaxation techniques, biofeedback, TV or other diversions, --Patient's subjective perception of discomfort decreases as documented by pain scale or objective indicators such as grimacing, are absent or diminished. Intervention: --Implement and document use of alternative , non pharmacological interventions i.e. , relaxation techniques distraction, etc., --Administer medications per order, --Assess pain characteristics and probable , cause(s) i.e. intensity, location, pain , level on scale 1-10.(Nursing,Physicians), --Monitor need for and evaluate patient's , response to pain medication Qhr.(Nursing,Physicians), --Encourage verbalization of pain. , --Provide instruction on causes of pain, Care plan status: Continued Progress toward goals documented continuously through progress notes Patient education: --Normal function and disease process. /eze AGUILAR RN REGISTERED NURSE Signed: 08/13/2024 00:30 OPAL SANCHEZ [facility] Aug 12, 2024 11:09 PM NURSING INPATIENT NOTE: LOCAL TITLE: [facility] PATIENT SAFETY CHECK STL STANDARD TITLE: NURSING INPATIENT NOTE DATE OF NOTE: AUG 12, 2024@23:09 ENTRY DATE: AUG 12, 2024@23:09:12 AUTHOR: MARLENE SANCHEZIGNER: URGENCY: STATUS: COMPLETED BEDSIDE SAFETY CHECK STL Visual inspection of wounds, incisions, and drains. IV infusions: IV tubing dated:N/A IV bags dated:N/A IV infusions traced from bag to the infusion site with validation of IV pump settings: N/A Incision(s) inspected:N/A Drain(s) inspected:N/A Wounds Inspected: N/A Catheters inspected:N/A A visual sweep of the patient's room for any physical or environmental safety concerns was completed and education provided to patient regarding their personal safety concerns. /eze AGUILAR RN REGISTERED NURSE Signed: 08/12/2024 23:09 OPAL SANCHEZ [facility] Aug 12, 2024 11:08 PM NURSING INPATIENT NOTE: LOCAL TITLE: [facility] NURSING FREQUENT DOCUMENTATION STANDARD TITLE: NURSING INPATIENT NOTE DATE OF NOTE: AUG 12, 2024@23:08 ENTRY DATE: AUG 12, 2024@23:08:44 AUTHOR: AMRLENE SANCHEZIGNER: URGENCY: STATUS: COMPLETED Version 2.4 Charting in accordance with [place] APPR[place]ED [place] STANDARD (COAES) ACUTE INPATIENT/REHABILITATION NURSING ADMISSION SCREENING, ASSESSMENT, AND STANDARDS OF CARE ENVIRONMENTAL SAFETY MANAGEMENT Implemented safety standards of care: -Leland to unit & environment -Adequate room lighting -Bed in low and locked position -Call light within reach -Personal items within reach -Traffic path in room free of clutter -Non-slip footwear -Upper/half length side rails up for bed mobility -Sensory aids within reach -Encourage patient to utilize sensory support /es/ MARLENE SANCHEZ BSN RN REGISTERED NURSE Signed: 08/12/2024 23:09 OPAL SANCHEZ [facility] Aug 12, 2024 10:04 PM NURSING INPATIENT NOTE: LOCAL TITLE: [facility] NURSING FREQUENT DOCUMENTATION STANDARD TITLE: NURSING INPATIENT NOTE DATE OF NOTE: AUG 12, 2024@22:04 ENTRY DATE: AUG 12, 2024@22:06:13 AUTHOR: MARLENE SANCHEZ EXP COSIGNER: URGENCY: STATUS: COMPLETED Version 2.4 Charting in accordance with [facility] [place] STANDARD (COAES) ACUTE INPATIENT/REHABILITATION NURSING ADMISSION SCREENING, ASSESSMENT, AND STANDARDS OF CARE NATIONAL EARLY WARNING SCORE (NEWS) The following vital measurements were used to complete the NEWS. Measurement DT TEMP PULSE RESP BP POx F(C) (L/MIN)(%) 08/12/2024 21:19 98.2(36.8) 71 22 129/82 100 The NEWS total is 2. 1. Temperature (C/F): Score = 0 36.1 - 38.0 C (96.9 - 100.4 F) 2. Pulse: Score = 0 51-90 3. Respirations: Score = 2 21-24 4. Blood Pressure (Only Systolic BP, mmHg): Score = 0 111-219 5. Pulse Oximetry: Score = 0 96% or greater 6. Supplemental oxygen in use: Score = 0 No 7. AVPU: Score = 0 Alert /shaq/ MARLENE AGUILAR RN REGISTERED NURSE Signed: 08/12/2024 22:07 OPAL SANCHEZ [facility] Aug 12, 2024 09:26 PM NURSING NOTE: LOCAL TITLE: [facility] SKIN INSPECTION/ASSESSMENT STANDARD TITLE: NURSING NOTE DATE OF NOTE: AUG 12, 2024@21:26 ENTRY DATE: AUG 12, 2024@21:26:35 AUTHOR: MARLENE SANCHEZ EXP COSIGNER: URGENCY: STATUS: COMPLETED Assessment Type: SKIN REINSPECTION/REASSESSMENT SKIN INSPECTION: Skin Color: Usual for ethnicity Skin Temperature: Warm Skin Moisture: Normal Skin Turgor: Elastic (normal/immediate) Bautista Skin Assessment: The patient's Bautista Scale Score is 20. The patient is considered not at risk for development of pressure ulcers/injuries. Sensory perception -- ability to respond meaningfully to pressure-related discomfort No impairment. Moisture -- degree to which skin is exposed to moisture Rarely moist. Activity -- ability to change and control body position Walks occasionally. Mobility -- ability to change and control body position Slightly limited. Nutrition -- usual food intake patterns Adequate. Friction and shear No apparent problem. INTERVENTIONS: The pressure injury interventions were not needed - patient/resident is not at risk. RISK FACTORS THAT INCREASE RISK FOR DEVELOPING PRESSURE INJURIES The patient/resident does not have any additional risk factors. Localized abnormality: Rash: Location: SCATTERED Diffused /shaq/ MARLENE AGUILAR RN REGISTERED NURSE Signed: 08/12/2024 21:27 OPAL SANCHEZ [facility] Aug 12, 2024 09:20 PM NURSING INPATIENT NOTE: [facility]AL T[facility] ACUTE INPATIENT NSG SHIFT ASSESSMENT STANDARD TITLE: NURSING INPATIENT NOTE DATE OF NOTE: AUG 12, 2024@21:20 ENTRY DATE: AUG 12, 2024@21:21:06 AUTHOR: MARLENE SANCHEZ: URGENCY: STATUS: COMPLETED Version 2.2 Charting in accordance with [place] STANDARD (VAAES) ACUTE INPATIENT/REHABILITATION NURSING ADMISSION SCREENING, ASSESSMENT, AND STANDARDS OF CARE ASSESSMENT HANDOFF Bedside report and handoff completed Safety check completed PAIN ASSESSMENT Patient's acceptable pain goal: 0 No pain Are you currently experiencing pain? No: Pain Score: 0 BECKER FALL SCALE & TIPS PROGRAM Bekcer Fall Scale: The Becker Fall scale was performed and score was 10. This is indicative of low risk of falls. History of falling: immediate or within 3 months? No Secondary diagnosis: No Ambulatory aid: None/bedrest/nurse assist Intravenous therapy/Heparin lock: No Gait/Transferring: Weakness Mental Status: Oriented to own ability/knows own limitations Fall Tailoring Interventions for Patient Safety (TIPS) Fall TIPS reviewed with patient: Yes Interventions: Assistance out of bed: Call for assistance before getting out of bed ENVIRONMENTAL SAFETY MANAGEMENT Implemented safety standards of care: -Leland to unit & environment -Adequate room lighting -Bed in low and locked position -Call light within reach -Personal items within reach -Traffic path in room free of clutter -Non-slip footwear -Upper/half length side rails up for bed mobility -Sensory aids within reach -Encourage patient to utilize sensory support NEUROLOGICAL Neurological Orientation: Oriented x4 Level of Consciousness (AVPU): Alert = Appears aware of and responsive to the environment on their own. Follows commands, opens eyes spontaneously, and tracks objects. ASPIRATION RISK ASSESSMENT AND SWALLOW SCREEN Aspiration Risk(s): Screening complete. No aspiration risk identified. Bedside Swallow Screen not indicated. 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 Peripheral Pulses: All 4 extremities, 3+ normal. Edema: None RESPIRATORY Respirations: Unlabored Pattern: Regular Breath Sounds Auscultated: Anterior and posterior Left Upper Lobe: Clear Right Upper Lobe: Clear Right Middle Lobe: Clear Left Lower Lobe: Clear Right Lower Lobe: Clear GASTROINTESTINAL Last bowel movement: 08/10/2024 Bowel movement reported by patient-unwitnessed Elimination: Continent Abdominal Description: Rounded Palpation: Soft, Non-tender Bowel Sounds: RUQ: Active LUQ: Active RLQ: Active LLQ: Active GENITOURINARY Elimination: Continent INTEGUMENTARY/SKIN/WOUND - (INCLUDING BAUTISTA) SEE NOTE: VAAES SKIN INPECTION/ASSESSMENT ACTIVITIES OF DAILY LIVING Hygiene ADLs: Hand Hygiene: Performed post toileting Performed pre meals/snacks Oral Care: Non-ventilator patient: Patient teeth brushed: Patient declined Pt wants to wait in the morning. The was educated that poor oral hygiene increases the risk of hospital acquired pneumonia and dental problems like gingivitis and tooth decay. Winona was educated using their preferred method and verbalized understanding. MOBILITY Mobility Status: Independent: Able to stand and step without staff assistance Gait: Steady IV LINES Peripheral IV: Line #1: Assessment: Location: Right, Forearm Gauge: 20 Dressing Condition: Clean, dry, intact Transparent dressing Site Condition: No redness, swelling, pain Line Status: Patent/infusing Line #2: Assessment: Location: Right, Upper arm Gauge: 20 Dressing Condition: Clean, dry, intact Transparent dressing Site Condition: No redness, swelling, pain Line Status: Flushed Positive blood return PSYCHOSOCIAL Type of Emotional Support Provided: 1:1 discussion, Hospitalization discussion, Treatment discussion, Ventilation of feelings encouraged ADULT EDUCATION Education provided: Topic 1: Hs medications, call light for assistance. Specific Content: Hs medications, call light for assistance. Method: Verbal Provided to: Patient Patient understanding of education content: Verbalized understanding /es/ MARLENE AGUILAR RN REGISTERED NURSE Signed: 08/12/2024 21:26 OPAL SANCHEZ [facility] Aug 12, 2024 05:51 PM NURSING INPATIENT NOTE: LOCAL TITLE: [facility] ACUTE INPATIENT NSG SHIFT ASSESSMENT STANDARD TITLE: NURSING INPATIENT NOTE DATE OF NOTE: AUG 12, 2024@17:51 ENTRY DATE: AUG 12, 2024@17:51:57 AUTHOR: ALMA DELIA SCHMIDT COSIGNER: URGENCY: STATUS: COMPLETED Version 2.2 Charting in accordance with [facility] [place] STANDARD (COAES) ACUTE INPATIENT/REHABILITATION NURSING ADMISSION SCREENING, ASSESSMENT, AND STANDARDS OF CARE REASSESSMENT PAIN ASSESSMENT Patient's acceptable pain goal: 0 No pain Are you currently experiencing pain? No: Pain Score: 0 NEUROLOGICAL Neurological Orientation: Oriented x4 Level of Consciousness (AVPU): Alert = Appears aware of and responsive to the environment on their own. Follows commands, opens eyes spontaneously, and tracks objects. 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 Edema: None RESPIRATORY Respirations: Unlabored Breath Sounds Auscultated: Anterior and posterior Left Upper Lobe: Clear Right Upper Lobe: Clear Right Middle Lobe: Clear Left Lower Lobe: Clear Right Lower Lobe: Clear GASTROINTESTINAL No bowel movement reported by patient Elimination: Continent GENITOURINARY Elimination: Continent INTEGUMENTARY/SKIN/WOUND - (INCLUDING BAUTISTA) SEE NOTE: VAAES SKIN INPECTION/ASSESSMENT /es/ ALMA DELIA SCHMIDT RN REGISTERED NURSE Signed: 08/12/2024 17:53 ALMA DELIA SCHMIDT [facility] Aug 12, 2024 10:09 AM INTERNAL MEDICINE INPATIENT NOTE: LOCAL TITLE: MEDICINE GENERAL INPATIENT NOTE STANDARD TITLE: INTERNAL MEDICINE INPATIENT NOTE DATE OF NOTE: AUG 12, 2024@10:09 ENTRY DATE: AUG 12, 2024@10:10 AUTHOR: CASH CLOUD EXP COSIGNER: FIONA ABRAHAM URGENCY: STATUS: COMPLETED MEDICINE GENERAL INPATIENT NOTE Has ADDENDA MEDICINE INPATIENT GENERAL NOTE STL 68 year old MALE admitted on Jul 18:08 for Last Admission: 08/10/24 6:08:28 pm Admit Dx: GI BLEED,UNCLEAR SOURCE. Subjective Complaints: NAEO. VSS. Afebrile. Seen by GI yesterday, EGD yesterday showing large esophageal varices. LA Grade B esophagitis with no bleeding. Nonbleeding gastric ulcer. Nonbleeding duodenal ulcer. Planned for repeat EGD and biopsies on Tuesday Lab review: Hgb 7.9 > 7.6 > 8.0 Brief daily plan: - CBC Q6H - Hgb >7 - Continue octreotide gtt - GI following appreciate recs, plan for repeat EGD on Tuesday Active Inpatient Medications: 1) INSULIN ASPART (NOVOLOG) INJ SQ Q6H SLIDING SCALE 2) GLUCAGON INJ IM PRN 1MG/1VIAL 3) GLUCOSE TAB,CHEWABLE PO PRN 16GM 4) DEXTROSE 50% INJ,SOLN IVP PRN 50 ML 5) ONDANSETRON INJ,SOLN IVP TID PRN 4MG/2ML 6) OCTREOTIDE INJ IV FOR GI BLEED 7) CEFTRIAXONE 2GM/BAG INJ,SOLN IVPB QDAILY Vital Signs: Pulse: 66 (08/12/2024 07:47) BP:129/83 (08/12/2024 07:47) RESP:18 (08/12/2024 07:47) Pain:0 (08/12/2024 09:02) Tmax: Pulse Oximetry: Weight: 152 lb [68.95 kg] (08/11/2024 00:00) Intake/Output: Skin: HEENT: Neck: No JVD Lungs: Breathing comfortably on room air Cardiovascular: RRR Abdominal: Non-focal, non-tender. Protuberant but no ascites. Rectal: : Extremities: Warm and well perfused. Bruising and bleeding from skin diffusely Musculoskeletal: Neuro: Psych: Recent Labs: BASIC METABOLIC PANEL: SODIUM 133 L mEq/L 08/10/2024 20:00 POTASSIUM 3.5 mEq/L 08/10/2024 20:00 CHLORIDE 103 mEq/L 08/10/2024 20:00 UREA NITROGEN 16.8 mg/dL 08/10/2024 20:00 CREATININE 0.84 mg/dL 08/10/2024 20:00 CALCIUM 8.4 mg/dL 08/10/2024 20:00 CARBON DIOXIDE 23 mEq/L 08/10/2024 20:00 GLUCOSE 104 H mg/dL 08/10/2024 20:00 EGFR (CKD-EPI 2020) 95.6 08/10/2024 20:00 WBC: 3.0 10*3/uL L (08/12/24 07:35) HCT: 24.8 % L (08/12/24 07:35) HGB: HGB 8.0 L g/dL 08/12/2024 07:35 Plt: PLT 75 L 10*3/uL 08/12/2024 07:35 CK-MB: ____ TROPONIN I HISTORY: No data available Other Labs and Data: Assessment/Plan: This is a 68 yo M with 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 # Vomiting # Nausea # Abdominal pain # History of HCC # History of cirrhosis, compensated # Known history varices Patient is at high risk for coagulopathy and has known varices. Given his history of nosebleeds and known malignancy, a posterior nasopharyngeal bleed is possibly the etiology of his nausea and vomiting. The black color suggests not UGIB but rather related to OTC meds being taken. Currently symptoms are managed and not vomiting. Given high propensity for catastrophic variceal bleeding and/or SBP, will treat empirically and plan for scope in AM. - Continue octreotide gtt, defer nadolol - IV PPI BID - Considered diagnostic para, no pocket visualized. - CTX for SBP PPX - q6h cbc - ctm lfts - blood cultures # Melena? Black tarry stools Given bleeding propensity, cannot dismiss stools as exclusively related to OTC suppositories being taken. Hgb drop also makes occult bleed more likely. EGD 08/10 showing large esophageal varices. LA Grade B esophagitis with no bleeding. Nonbleeding gastric ulcer. Nonbleeding duodenal ulcer. Planned for repeat EGD and biopsies on Tuesday. - GI following, repeat EGD/biopsies on Tuesday # ABLA Most likely acute blood loss related given 3g drop. Given he is bleeding from ecchymoses diffusely on skin, likely is intolerant of Keytruda therapy. - Hold keytruda; tbw onc - Transfuse > 8 w/ bleeding, 7 if no evidence of bleeding - Cbcs, vital signs - Iron panel; can replete as indicated when stable Anderson: No Lines No VTE prophylaxis: Life Sustaining Treatment Orders Cohort: Reminder Term: [facility]-LIFE SUSTAINING TREATMENT ORDERABLE ITEMS Orderable Item: LST FULL CODE 07/17/2024@19:08 Status: active, Start date: 07/17/2024@19:08, Stop date: missing Duration: 26 D Disposition: Living arrangements prior to admission: Anticipate discharge date: Anticipate discharge to: /shaq/ Cash Cloud MD Resident Physician Signed: 08/12/2024 11:27 /shaq/ FIONA ABRAHAM M.D., [facility] Staff Physician - Gastroenterology Cosigned: 08/12/2024 13:49 08/12/2024 ADDENDUM STATUS: COMPLETED I reviewed the patient today with the house staff. I reviewed the pertinant laboratory, EKG, and radiologic findings. I reviewed this note and agree in general with the data, synthesis, and plan as outlined in the resident's note and discussed on rounds. /shaq/ FIONA ABRAHAM M.D., [facility] Staff Physician - Gastroenterology Signed: 08/12/2024 13:52 CASH CLOUD [facility] Aug 12, 2024 09:58 AM ADDENDUM: LOCAL TITLE: Addendum STANDARD TITLE: ADDENDUM DATE OF NOTE: AUG 12, 2024@09:58:09 ENTRY DATE: AUG 12, 2024@09:58:10 AUTHOR: NERY MOISE EXP COSIGNER: URGENCY: STATUS: COMPLETED ACTIVE MALNUTRITION -present on admission- Based on the ASPEN/AND malnutrition diagnosis guide [...] muscle mass Moderate loss of subcutaneous fat /shaq/ NERY MOISE, SEAMUS, LD Clinical Dietitian Signed: 08/12/2024 09:58 Receipt Acknowledged By: 08/12/2024 14:30 /eze ABRAHAM M.D., [facility] Staff Physician - Gastroenterology ======== --- Original Document --- 08/12/24 Nutrition Consult Stl: Consult for recent wt loss >10 lbs without trying, poor appetite . Thank you for this consult. SGA rating is >5 indicating nutrition problem. NUTRITION ASSESSMENT CLIENT HISTORY: 68 year old MALE admitted for GI bleed. 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 LIQ. 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 Seen by oncology RD day of admission; pt prefers pureed foods and drinks ONS. Medications and Herbal Supplements: OCTREOTIDE INJ IV FOR GI BLEED Anthropometric Measurements: Ht: 72 in [182.9 cm] (07/26/2023 08:00) Wt: 152 lb [68.95 kg] (08/11/2024 00:00) BMI: 20.7 Weight History/Significant changes: -10# in 1 month (6.2% - significant) Biochemical Data/Med tests and procedures: reviewed Nutrition Focused Physical Findings: From oncology RD note - Fat status: Moderate subcutaneous fat wasting noted in orbital fat pads, buccal fat pads Muscle Status: Mild muscle mass wasting noted in temporalis muscle Moderate muscle mass wasting noted in clavicle region (pectoralis major, deltoid), shoulder region (acromion process, deltoid, trapezius), scapula region (trapezius, rhomboid, latissimus dorsi) Severe muscle mass wasting noted in quadriceps Admitted with nausea and nosebleeds. LBM 08/10/24. Bautista score: 18 Skin: intact NUTRITION PRESCRIPTION Estimated energy needs: 8816-1738 kcals (30-35 kcal/kg ABW) Estimated protein needs: 83-104 grams/day (1.2-1.5/kg ABW) Estimated fluid needs: 6073-3940 ml/day (1 ml/brenton) Nutrition prescription specifics: high brenton/pro, texture to tolerance, ons to supplement ACTIVE NUTRITION DIAGNOSIS Biting/Chewing (Masticatory) diffficulty related to partial or complete edentulism, soft tissue disease, xerostomia (physiologic metabolic etiology) as evidenced by partial or complete edentulism, head and neck ca, dry mouth, decreased estimated food intake/avoidance of foods/food groups, conditions associated w/H&N ca. ACTIVE Inadequate energy related to decreased ability to consume sufficient energy and increased needs due to catabolic illness (physiologic metabolic and treatment etilogies) as evidenced by head and neck ca, conditions associated w/disease and treatment, GI symptoms, wt loss. ACTIVE MALNUTRITION -present on admission- Based on the ASPEN/AND malnutrition diagnosis guide [...] muscle mass Moderate loss of subcutaneous fat NUTRITION INTERVENTIONS DIET RECOMMENDATIONS Texture modified: ADAT to PUREE per pt's preference. Commercial beverage food supplement therapy: Ensure Plus TID once diet progresses. CLD includes Ensure Clear TID for now. Justification: malnutrition COORDINATION OF NUTRITION CARE pending medical outcomes NUTRITION MONITORING AND EVALUATION Estimated percent of meals eaten in 24 hours: >50% Nutritionally complete liquid supplement estimated oral intake in 24 hours: 75-100% Follow up date: Jul /shaq/ NERY MOISE RD, LD Clinical Dietitian Signed: 08/12/2024 09:57 SHIRA MIOSE [facility] Aug 12, 2024 09:45 AM NUTRITION DIETETICS CONSULT: LOCAL TITLE: Nutrition Consult St STANDARD TITLE: NUTRITION DIETETICS CONSULT DATE OF NOTE: AUG 12, 2024@09:45 ENTRY DATE: AUG 12, 2024@09:45:11 AUTHOR: NERY MOISE EXP COSIGNER: URGENCY: STATUS: COMPLETED Nutrition Consult Stl Has ADDENDA Consult for recent wt loss >10 lbs without trying, poor appetite . Thank you for this consult. SGA rating is >5 indicating nutrition problem. NUTRITION ASSESSMENT CLIENT HISTORY: 68 year old MALE admitted for GI bleed. 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 LIQ. 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 Seen by oncology RD day of admission; pt prefers pureed foods and drinks ONS. Medications and Herbal Supplements: OCTREOTIDE INJ IV FOR GI BLEED Anthropometric Measurements: Ht: 72 in [182.9 cm] (07/26/2023 08:00) Wt: 152 lb [68.95 kg] (08/11/2024 00:00) BMI: 20.7 Weight History/Significant changes: -10# in 1 month (6.2% - significant) Biochemical Data/Med tests and procedures: reviewed Nutrition Focused Physical Findings: From oncology RD note - Fat status: Moderate subcutaneous fat wasting noted in orbital fat pads, buccal fat pads Muscle Status: Mild muscle mass wasting noted in temporalis muscle Moderate muscle mass wasting noted in clavicle region (pectoralis major, deltoid), shoulder region (acromion process, deltoid, trapezius), scapula region (trapezius, rhomboid, latissimus dorsi) Severe muscle mass wasting noted in quadriceps Admitted with nausea and nosebleeds. LBM 08/10/24. Bautista score: 18 Skin: intact NUTRITION PRESCRIPTION Estimated energy needs: 7417-4516 kcals (30-35 kcal/kg ABW) Estimated protein needs: 83-104 grams/day (1.2-1.5/kg ABW) Estimated fluid needs: 2017-9737 ml/day (1 ml/brenton) Nutrition prescription specifics: high brenton/pro, texture to tolerance, ons to supplement ACTIVE NUTRITION DIAGNOSIS Biting/Chewing (Masticatory) diffficulty related to partial or complete edentulism, soft tissue disease, xerostomia (physiologic metabolic etiology) as evidenced by partial or complete edentulism, head and neck ca, dry mouth, decreased estimated food intake/avoidance of foods/food groups, conditions associated w/H&N ca. ACTIVE Inadequate energy related to decreased ability to consume sufficient energy and increased needs due to catabolic illness (physiologic metabolic and treatment etilogies) as evidenced by head and neck ca, conditions associated w/disease and treatment, GI symptoms, wt loss. ACTIVE MALNUTRITION -present on admission- Based on the ASPEN/AND malnutrition diagnosis guide [...] muscle mass Moderate loss of subcutaneous fat NUTRITION INTERVENTIONS DIET RECOMMENDATIONS Texture modified: ADAT to PUREE per pt's preference. Commercial beverage food supplement therapy: Ensure Plus TID once diet progresses. CLD includes Ensure Clear TID for now. Justification: malnutrition COORDINATION OF NUTRITION CARE pending medical outcomes NUTRITION MONITORING AND EVALUATION Estimated percent of meals eaten in 24 hours: >50% Nutritionally complete liquid supplement estimated oral intake in 24 hours: 75-100% Follow up date: Jul /shaq/ NERY MOISE RD, LD Clinical Dietitian Signed: 08/12/2024 09:57 08/12/2024 ADDENDUM STATUS: COMPLETED ACTIVE MALNUTRITION -present on admission- Based on the ASPEN/AND malnutrition diagnosis guide [...] muscle mass Moderate loss of subcutaneous fat /es/ NERY MOISE RD, LD Clinical Dietitian Signed: 08/12/2024 09:58 Receipt Acknowledged By: * AWAITING SIGNATURE * FIONA ABRAHAM ASHLEIG H M [facility] Aug 12, 2024 09:05 AM NURSING NOTE: [facility] STANDARD TITLE: NURSING NOTE DATE OF NOTE: AUG 12, 2024@09:05 ENTRY DATE: AUG 12, 2024@09:05:47 AUTHOR: ALMA DELIA SCHMIDT COSIGNER: URGENCY: STATUS: COMPLETED Assessment Type: INITIAL SKIN INSPECTION/ASSESSMENT SKIN INSPECTION: Skin Color: Usual for ethnicity Skin Temperature: Warm Skin Moisture: Normal Skin Turgor: Elastic (normal/immediate) Bautista Skin Assessment: The patient's Bautista Scale Score is 17. The patient is at mild risk for development of pressure ulcer/injury. Sensory perception -- ability to respond meaningfully to pressure-related discomfort Slightly limited. Moisture -- degree to which skin is exposed to moisture Occasionally moist. Activity -- ability to change and control body position Walks occasionally. Mobility -- ability to change and control body position Slightly limited. Nutrition -- usual food intake patterns Adequate. Friction and shear Potential problem. INTERVENTIONS: No change in previous interventions as listed below Pressure Ulcer-Education 07/19/2024 Educate Importance Of Changing Position Pressure Ulcer-Friction/Shear 07/19/2024 Head of Bed Below 30 Degrees When Not Eating Pressure Ulcer-Moisture 07/19/2024 Maintain Clean Dry Skin Pressure Ulcer-Nutrition 07/19/2024 Encourage Eating And Assist With Meals Monitor Fluid/Food Intake Offer Liquids Q2H When Turning Offer Ordered Supplements Pressure Ulcer-Pressure Reducing 07/19/2024 Frequent Position Changes Specialty Bed/Surface ICU bed Pressure Ulcer-Remobilize 07/19/2024 Encourage Activity As Tolerated Vaaes Pressure Injury Interventions 08/10/2024 Vaaes Pressure Injury Int Not Needed RISK FACTORS THAT INCREASE RISK FOR DEVELOPING PRESSURE INJURIES: The patient/resident has the following: Device(s): (nasogastric tubes, oxygen tubing, urinary catheters, cell phone etc.) Comment: TELE MONITOR, PIV Localized abnormality: Rash: Location: throughout the body Diffuse /es/ ALMA DELIA SCHMIDT RN REGISTERED NURSE Signed: 08/12/2024 09:07 ALMA DELIA SCHMIDT [facility] Aug 12, 2024 09:01 AM NURSING INPATIENT NOTE: LOCAL TITLE: [facility] ACUTE INPATIENT NSG SHIFT ASSESSMENT STANDARD TITLE: NURSING INPATIENT NOTE DATE OF NOTE: AUG 12, 2024@09:01 ENTRY DATE: AUG 12, 2024@09:02:06 AUTHOR: ALMA DELIA SCHMIDT EXP COSIGNER: URGENCY: STATUS: COMPLETED Version 2.2 Charting in accordance with [facility] [place] STANDARD ([facility]) ACUTE INPATIENT/REHABILITATION NURSING ADMISSION SCREENING, ASSESSMENT, AND STANDARDS OF CARE ASSESSMENT HANDOFF Bedside report and handoff completed Safety check completed PAIN ASSESSMENT Patient's acceptable pain goal: 1 Hardly notice pain Are you currently experiencing pain? No: Pain Score: 0 BECKER FALL SCALE & TIPS PROGRAM Becker Fall Scale: The Becker Fall scale was performed and score was 45. This is indicative of high risk for falls. History of falling: immediate or within 3 months? No Secondary diagnosis: Yes Ambulatory aid: None/bedrest/nurse assist Intravenous therapy/Heparin lock: Yes Gait/Transferring: Weakness Mental Status: Oriented to own ability/knows own limitations Fall Tailoring Interventions for Patient Safety (TIPS) Fall TIPS initiated with patient: Yes Interventions: Assistance out of bed: Call for assistance before getting out of bed Safe patient handling device necessary Fall TIPS reviewed with patient: Yes Interventions: Assistance out of bed: Call for assistance before getting out of bed Safe patient handling device necessary ENVIRONMENTAL SAFETY MANAGEMENT Implemented safety standards of care: -Leland to unit & environment -Adequate room lighting -Bed in low and locked position -Call light within reach -Personal items within reach -Traffic path in room free of clutter -Non-slip footwear -Upper/half length side rails up for bed mobility -Sensory aids within reach -Encourage patient to utilize sensory support NEUROLOGICAL Neurological Orientation: Oriented x4 Level of Consciousness (AVPU): Alert = Appears aware of and responsive to the environment on their own. Follows commands, opens eyes spontaneously, and tracks objects. 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 Edema: None RESPIRATORY Respirations: Unlabored Pattern: Regular Breath Sounds Auscultated: Anterior and posterior Left Upper Lobe: Clear Right Upper Lobe: Clear Right Middle Lobe: Clear Left Lower Lobe: Clear Right Lower Lobe: Clear GASTROINTESTINAL No bowel movement reported by patient Elimination: Continent Abdominal Description: Flat Rounded Palpation: Soft, Non-tender Bowel Sounds: RUQ: Active LUQ: Active RLQ: Active LLQ: Active GENITOURINARY Elimination: Continent INTEGUMENTARY/SKIN/WOUND - (INCLUDING BAUTISTA) SEE NOTE: VAAES SKIN INPECTION/ASSESSMENT IV LINES Peripheral IV: Line #1: Assessment: Location: Right Gauge: 20 Dressing Condition: Clean, dry, intact Site Condition: No redness, swelling, pain Line Status: Patent/infusing Flushed Line #2: Assessment: Location: Right Gauge: 20 Dressing Condition: Clean, dry, intact Site Condition: No redness, swelling, pain Line Status: Patent/infusing Flushed PSYCHOSOCIAL Type of Emotional Support Provided: 1:1 discussion, Hospitalization discussion /es/ ALMA DELIA SCHMIDT RN REGISTERED NURSE Signed: 08/12/2024 09:05 ALMA DELIA SCHMIDT [facility] Aug 12, 2024 06:30 AM NURSING INPATIENT NOTE: LOCAL TITLE: [facility] ACUTE INPATIENT NSG SHIFT ASSESSMENT STANDARD TITLE: NURSING INPATIENT NOTE DATE OF NOTE: AUG 12, 2024@06:30 ENTRY DATE: AUG 12, 2024@06:31:04 AUTHOR: LUANN SANCHEZ COSIGNER: URGENCY: STATUS: COMPLETED Version 2.2 Charting in accordance with [facility] STANDARD ([facility]) ACUTE INPATIENT/REHABILITATION NURSING ADMISSION SCREENING, ASSESSMENT, AND STANDARDS OF CARE REASSESSMENT PAIN ASSESSMENT Patient's acceptable pain goal: 0 No pain Are you currently experiencing pain? No: Pain Score: 0 NEUROLOGICAL Neurological Orientation: Oriented x4 Level of Consciousness (AVPU): Alert = Appears aware of and responsive to the environment on their own. Follows commands, opens eyes spontaneously, and tracks objects. 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 Bilateral: Strong Upper Extremity Bilateral: Full strength Lower Extremity Bilateral: Full strength CARDIOVASCULAR Heart Sounds: Normal (S1S2) Heart Rate/Rhythm (without business law professor): Regular RESPIRATORY Respirations: Unlabored Pattern: Regular GASTROINTESTINAL Last bowel movement: 08/10/2024 Elimination: Continent GENITOURINARY Elimination: Continent INTEGUMENTARY/SKIN/WOUND - (INCLUDING BAUTISTA) SEE NOTE: VAAES SKIN INPECTION/ASSESSMENT /es/ LUANN DANIEL, BSN, RN REGISTERED NURSE Signed: 08/12/2024 06:33 DANIELLUANN Kilgore [facility] Aug 12, 2024 02:06 AM NURSING NOTE: LOCAL TITLE: JEY PROGRESS NOTE STL STANDARD TITLE: NURSING NOTE DATE OF NOTE: AUG 12, 2024@02:06 ENTRY DATE: AUG 12, 2024@02:06:45 AUTHOR: LUANN SANCHEZ EXP COSIGNER: URGENCY: STATUS: COMPLETED 08/12/2024 0145 Handoff received. Patient on the bed awake, alert, and oriented. Respirations even and unlabored. Call light and personal items within reach. No signs of distress. 0345 Patient on the bed with eyes closed, easily aroused. Respirations even and unlabored. Call light and personal items within reach. No signs of distress. No change from previous assessments. 0545 Patient on the bed with eyes closed, easily aroused. Respirations even and unlabored. Call light and personal items within reach. No signs of distress. No change from previous assessments. 0730 Patient on the bed awake, alert, and oriented. Respirations even and unlabored. Call light and personal items within reach. No signs of distress. No change from previous assessments. /shaq/ JEFF CEBALLOS, RN REGISTERED NURSE Signed: 08/12/2024 07:40 LUANN SANCHEZ [facility] Aug 11, 2024 09:30 PM NURSING NOTE: [facility]TE[facility] STANDARD TITLE: NURSING NOTE DATE OF NOTE: AUG 11, 2024@21:30 ENTRY DATE: AUG 12, 2024@01:12:26 AUTHOR: ISABEL LOWE EXP COSIGNER: URGENCY: STATUS: COMPLETED Version 2.2 Charting in accordance with [facility] [place] STANDARD ([facility]) ACUTE INPATIENT/REHABILITATION NURSING ADMISSION SCREENING, ASSESSMENT, AND STANDARDS OF CARE IV Line Insertion and Maintenance Peripheral IV Line #2: Insertion: Date/Time: Jul@21:30 Inserted by (name): Marti Lowe Insertion Aid: Ultrasound guided Location: Right, Upper arm Gauge: 20 Assessment: Location: Right, Upper arm Gauge: 20 Dressing Condition: Clean, dry, intact Site Condition: No redness, swelling, pain Line Status: Capped Flushed Positive blood return /es/ ISABEL LOWE BSN, RN REGISTERED NURSE Signed: 08/12/2024 01:13 ISABEL LOWE [facility] Aug 11, 2024 08:00 PM NURSING NOTE: LOCAL TITLE: [facility] SKIN INSPECTION/ASSESSMENT STANDARD TITLE: NURSING NOTE DATE OF NOTE: AUG 11, 2024@20:00 ENTRY DATE: AUG 11, 2024@21:46:13 AUTHOR: ISABEL LOWE EXP COSIGNER: URGENCY: STATUS: COMPLETED Assessment Type: INITIAL SKIN INSPECTION/ASSESSMENT SKIN INSPECTION: Skin Color: Usual for ethnicity Skin Temperature: Warm Skin Moisture: Normal Skin Turgor: Elastic (normal/immediate) Bautista Skin Assessment: The patient's Bautista Scale Score is 18. The patient is at mild risk for development of pressure ulcer/injury. Sensory perception -- ability to respond meaningfully to pressure-related discomfort No impairment. Moisture -- degree to which skin is exposed to moisture Rarely moist. Activity -- ability to change and control body position Walks occasionally. Mobility -- ability to change and control body position Slightly limited. Nutrition -- usual food intake patterns Probably inadequate. Friction and shear Potential problem. INTERVENTIONS: No change in previous interventions as listed below Pressure Ulcer-Education 07/19/2024 Educate Importance Of Changing Position Pressure Ulcer-Friction/Shear 07/19/2024 Head of Bed Below 30 Degrees When Not Eating Pressure Ulcer-Moisture 07/19/2024 Maintain Clean Dry Skin Pressure Ulcer-Nutrition 07/19/2024 Encourage Eating And Assist With Meals Monitor Fluid/Food Intake Offer Liquids Q2H When Turning Offer Ordered Supplements Pressure Ulcer-Pressure Reducing 07/19/2024 Frequent Position Changes Specialty Bed/Surface ICU bed Pressure Ulcer-Remobilize 07/19/2024 Encourage Activity As Tolerated Vas Pressure Injury Interventions 08/10/2024 Vaaes Pressure Injury Int Not Needed RISK FACTORS THAT INCREASE RISK FOR DEVELOPING PRESSURE INJURIES: The patient/resident has the following: Device(s): (nasogastric tubes, oxygen tubing, urinary catheters, cell phone etc.) SKIN INTEGRITY: Intact Localized abnormality: Excoriation (linear smith may be caused from scratching): Location(s): Scattered rash/scabs /es/ ISABEL LOWE BSN, RN REGISTERED NURSE Signed: 08/11/2024 21:47 ISABEL LOWE [facility] Aug 11, 2024 08:00 PM NURSING INPATIENT NOTE: LOCAL TITLE: [facility] ACUTE INPATIENT NSG SHIFT ASSESSMENT STANDARD TITLE: NURSING INPATIENT NOTE DATE OF NOTE: AUG 11, 2024@20:00 ENTRY DATE: AUG 11, 2024@21:39:44 AUTHOR: ISABEL LOWE EXP COSIGNER: URGENCY: STATUS: COMPLETED Version 2.2 Charting in accordance with [facility] STANDARD ([facility]) ACUTE INPATIENT/REHABILITATION NURSING ADMISSION SCREENING, ASSESSMENT, AND STANDARDS OF CARE ASSESSMENT HANDOFF Bedside report and handoff completed Safety check completed PAIN ASSESSMENT Patient's acceptable pain goal: 2 Notice pain, does not interfere with activities Are you currently experiencing pain? No: Pain Score: 0 EBCKER FALL SCALE & TIPS PROGRAM Becker Fall Scale: The Becker Fall scale was performed and score was 60. This is indicative of high risk for falls. History of falling: immediate or within 3 months? Yes Secondary diagnosis: Yes Ambulatory aid: None/bedrest/nurse assist Intravenous therapy/Heparin lock: Yes Gait/Transferring: Normal/bed rest/immobile Mental Status: Oriented to own ability/knows own limitations Fall Tailoring Interventions for Patient Safety (TIPS) Fall TIPS initiated with patient: Yes Interventions: Communicate recent fall or risk of harm IV assistance when walking Toileting schedule frequency established Assistance out of bed: Call for assistance before getting out of bed Fall TIPS reviewed with patient: Yes Interventions: Communicate recent fall or risk of harm IV assistance when walking Toileting schedule frequency established Assistance out of bed: Call for assistance before getting out of bed ENVIRONMENTAL SAFETY MANAGEMENT Implemented safety standards of care: -Leland to unit & environment -Adequate room lighting -Bed in low and locked position -Call light within reach -Personal items within reach -Traffic path in room free of clutter -Non-slip footwear -Upper/half length side rails up for bed mobility -Sensory aids within reach -Encourage patient to utilize sensory support NEUROLOGICAL Neurological Orientation: Oriented x4 Level of Consciousness (AVPU): Alert = Appears aware of and responsive to the environment on their own. Follows commands, opens eyes spontaneously, and tracks objects. 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 Peripheral Pulses: All 4 extremities, 3+ normal. Edema: None RESPIRATORY Respirations: Unlabored Pattern: Regular Breath Sounds Auscultated: Anterior and posterior Left Upper Lobe: Clear Right Upper Lobe: Clear Right Middle Lobe: Clear Left Lower Lobe: Clear Right Lower Lobe: Clear GASTROINTESTINAL No bowel movement reported by patient Abdominal Description: Flat Palpation: Soft Bowel Sounds: RUQ: Active LUQ: Active RLQ: Active LLQ: Active GENITOURINARY Elimination: Continent Color/Characteristic: Clear Yellow INTEGUMENTARY/SKIN/WOUND - (INCLUDING BAUTISTA) SEE NOTE: VAAES SKIN INPECTION/ASSESSMENT IV LINES Peripheral IV: Line #1: Assessment: Location: Right, Forearm, Antecubital Gauge: 20 Dressing Condition: Clean, dry, intact Site Condition: No redness, swelling, pain Line Status: Patent/infusing Flushed No blood return Line #2: Discontinue: Location: Right, Antecubital Date/Time: Jul@21:00 Reason for discontinuation: Occlusion ADULT EDUCATION Education provided: Topic 1: Safety Specific Content: use call light for help, bed in lowest and locked position, call light in reach Method: Verbal Provided to: Patient Patient understanding of education content: Verbalized understanding /es/ ISABEL AGUILAR, RN REGISTERED NURSE Signed: 08/11/2024 21:46 ISABEL LOWE [facility] Aug 11, 2024 07:05 PM GASTROENTEROLOGY PROCEDURE NOTE: LOCAL TITLE: CP EGD STL STANDARD TITLE: GASTROENTEROLOGY PROCEDURE NOTE DATE OF NOTE: AUG 11, 2024@19:05:17 ENTRY DATE: AUG 11, 2024@19:05:17 AUTHOR: CLINICAL,DEVICE PRO EXP COSIGNER: URGENCY: STATUS: COMPLETED PROCEDURE SUMMARY CODE: Machine Resulted DATE/TIME PERFORMED: AUG 11, 2024@14:22:4 DOCUMENT IN VISTA IMAGING SEE FULL REPORT IN VISTA IMAGING SIGNATURE NOT REQUIRED SEE SIGNATURE IN VISTA IMAGING (ProVation (EGD) STL) AUTO-INSTRUMENT DIAGNOSIS Procedure: ExamEndo Upper GI endoscopy Release Status: Released Off-Line Verified Date Verified: Aug 11, 2024@19:05:16 [facility] GI Patient Name: Abraham Hawk Procedure Date: 08/11/2024 2:22 PM Date of : 1955 Age: 68 Procedure: Upper GI endoscopy Indications: Melena Patient Profile: Refer to note in patient chart for documentation of history and physical. Providers: Kavin Davis, Linda Jaquez, RN, Shane Miles (Fellow) Referring MD: Requesting Provider: Medicines: General Anesthesia Complications: No immediate complications. Procedure: Pre-Anesthesia Assessment: - Prior to the [...] Prior Anticoagulants: The patient has taken no anticoagulant or antiplatelet agents. ASA Grade Assessment: IV - A patient with severe systemic disease that is a constant threat to life. After reviewing the risks and benefits, the patient was deemed in satisfactory condition to undergo the procedure. After obtaining informed consent, the endoscope was passed under direct vision. Throughout the procedure, the patient's blood pressure, pulse, and oxygen saturations were monitored continuously. The scope was introduced through the mouth, and advanced to the second part of duodenum. Findings: Large (> 5 mm) varices were found in the middle third of the esophagus and in the lower third of the esophagus. There was no bleeding nor stigmata of variceal bleeding though there was diffuse erythema at the GEJ. LA Grade B (one or more mucosal breaks greater than 5 mm, not extending between the tops of two mucosal folds) esophagitis with no bleeding was found at the gastroesophageal junction. One non-bleeding superficial gastric ulcer with no stigmata of bleeding was found at the pylorus. The lesion was 2 mm in largest dimension. Four non-obstructing non-bleeding cratered duodenal ulcers with no stigmata of bleeding were found in the first portion of the duodenum and in the second portion of the duodenum. The largest lesion was 16 mm in largest dimension. The ulcers were irregularly shaped with serpentine features. 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 - LA Grade B esophagitis with no bleeding. - Non-bleeding gastric ulcer with no stigmata of bleeding. - Non-obstructing non-bleeding duodenal ulcers with no stigmata of bleeding suspicious for checkpoint inhibitor enteritis. - No specimens collected. Recommendation: - Return patient to ICU for ongoing care and he should continue all of his current GI meds until repeat EGD on Tuesday.. - Clear liquid diet today. - Continue present medications including 3 days of ppi and repeat EGD on Tuesday (will biopsy periphery of lesions). - The patient is not currently taking anticoagulant or antiplatelet agents. - Return to normal activities tomorrow. - Suspect that the ulcers, abnormal imaging (duodenal edema) suggest ICI enterocolitis. Would trend CRP and plan to repeat EGD and biopsies on Tuesday. Kavin Davis, 08/11/2024 7:05:12 PM Shane Miles, 08/11/2024 2:32:48 PM Number of Addenda: 0 Note Initiated On: 08/11/2024 2:22 PM Administrative Closure: 08/11/2024 by: CLINICAL,DEVICE PROXY SERVICE CLINICAL,DEVICE PROXY SERVICE [facility] Aug 11, 2024 05:17 PM NURSING INPATIENT NOTE: [facility]AL T[facility] NSG SHIFT ASSESSMENT STANDARD TITLE: NURSING INPATIENT NOTE DATE OF NOTE: AUG 11, 2024@17:17 ENTRY DATE: AUG 11, 2024@17:17:55 AUTHOR: ALMA DELIA SCHMIDT EXP COSIGNER: URGENCY: STATUS: COMPLETED Version 2.2 Charting in accordance with [place] APPROVED [place] STANDARD (COAES) ACUTE INPATIENT/REHABILITATION NURSING ADMISSION SCREENING, ASSESSMENT, AND STANDARDS OF CARE REASSESSMENT PAIN ASSESSMENT Patient's acceptable pain goal: 0 No pain Are you currently experiencing pain? No: Pain Score: 0 NEUROLOGICAL Neurological Orientation: Oriented x4 Level of Consciousness (AVPU): Alert = Appears aware of and responsive to the environment on their own. Follows commands, opens eyes spontaneously, and tracks objects. 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 Edema: None RESPIRATORY Respirations: Unlabored Pattern: Regular Breath Sounds Auscultated: Anterior and posterior Left Upper Lobe: Clear Right Upper Lobe: Clear Right Middle Lobe: Clear Left Lower Lobe: Clear Right Lower Lobe: Clear GASTROINTESTINAL No bowel movement reported by patient Elimination: Continent Abdominal Description: Flat Rounded Palpation: Soft, Non-tender Bowel Sounds: RUQ: Active LUQ: Active RLQ: Active LLQ: Active GENITOURINARY Elimination: Continent INTEGUMENTARY/SKIN/WOUND - (INCLUDING BAUTISTA) SEE NOTE: VAAES SKIN INPECTION/ASSESSMENT /shaq/ ALMA DELIA SCHMIDT RN REGISTERED NURSE Signed: 08/11/2024 17:24 ALMA DELIA SCHMIDT [facility] Aug 11, 2024 03:09 PM RESPIRATORY THERAPY NOTE: LOCAL TITLE: RESPIRATORY THERAPY ST STANDARD TITLE: RESPIRATORY THERAPY NOTE DATE OF NOTE: AUG 11, 2024@15:09 ENTRY DATE: AUG 11, 2024@15:09:15 AUTHOR: BAL SOUSA: URGENCY: STATUS: COMPLETED 1350 RT to bedside to setup ventilator and assist with intubation, monitoring of patient resp. status, extuabtion for EGD procedure. Patient intubated and placed on PB980, AC/VC, VT: 550,F: 12,PEEP: 5,FiO2: 40% Patient extubated to Simple Mask and soon after weaned back to Room Air. Patient tolerated EGD procedure well. /shaq/ BAL SOUSA RESPIRATORY THERAPIST Signed: 08/11/2024 15:16 BAL SOUSA [facility] Aug 11, 2024 10:49 AM GASTROENTEROLOGY CONSULT: LOCAL TITLE: GASTROENTEROLOGY INPATIENT CONSULT ST STANDARD TITLE: GASTROENTEROLOGY CONSULT DATE OF NOTE: AUG 11, 2024@10:49 ENTRY DATE: AUG 11, 2024@10:49:25 AUTHOR: SHANE MEDEROS COSIGNER: KAVIN DAVIS URGENCY: STATUS: COMPLETED GASTROENTEROLOGY INPATIENT CONSULT STL Has ADDENDA CC: melena HPI: Pt. is a 68 y/o MALE with cirrhosis secondary to HCV (status post SVR) complicated by HCC status post TACE(08/05/2022 and 12/01/2022) metastatic SCC of the nasopharynx who was recently admitted for acute symptomatic anemia and melena. EGD at the time showed moderate varcies, oozing PHG. patient was discharged on 07/22/24.Today he returns with diarrhe and reported melena for 3 days. His Hgb in the ED is 8.8 down from 11 1 week ago. Patient rpeorts having had melena for 3 days with the last episode being on the night of 08/08. He also endorses 1 episode of black emesis which he suspects might be the supplement he is takin which he describes as being black in color (Ulysses whitmore oil or RSO). He endorses using RSO as suppository and orally which may have affected the color of his stool and emesis. Notably, patient also endorses having had a large nose bleed in June shortly after starting his Keytruda (pembrolizumab) for his nasopharyngeal cancer. he does not recall a new episode of epistaxis. ROS: Review of systems is as per HPI and additionally notable for Constitutional: No fever, No weakness/ fatigue Cardiovascular: No chest pain, No palpitations Respiratory: No shortness of breath, No cough Genitourinary: No dysuria, No polyuria Neurology: No headache, No tremors Musculoskeletal: No joint pain, No back pain Skin: No rash, No itching Psychiatric: No anxiety, No depression 10-point ROS is otherwise negative. PMHx: Reviewed. Notable for Cirrhosis, varices, PHG, SCC of the nasopharynx MEDS: Reviewed. 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 Active Outpatient Medications (excluding Supplies): Issue Date Status Last Fill Active Outpatient Medications Refills Expiration ======== 1) FUROSEMIDE 20MG TAB Qty: 15 for 15 days Sig: ACTIVE Issue: 07/27/24 TAKE ONE TABLET BY MOUTH EVERY MORNING Refills: 0 Last : 07/27/24 Indication: FOR FLUID RETENTION (EDEMA) Expr : 08/26/24 2) LOPERAMIDE HCL 2MG CAP Qty: 100 for 30 days ACTIVE Issue: 07/13/24 Sig: TAKE TWO CAPSULES BY MOUTH DIRECTED Refills: 11 Last : 07/13/24 AT FIRST ONSET OF DIARRHEA THEN 1 CAPSULE Expr : 07/14/25 AFTER EACH LOOSE STOOL UNTIL DIARRHEA FREE FOR 12 HOURS Indication: FOR DIARRHEA 3) NUTRITION SUPL TWOCAL HN/VANILLA LIQUID Qty: ACTIVE Issue: 08/03/24 72 for 24 days Sig: TAKE 3 CANFULS BY MOUTH Refills: 2 Last : 08/03/24 DIRECTED Expr : 08/04/25 Indication: FOR NUTRITION/DIETARY SUPPLEMENTATION 4) OMEPRAZOLE 40MG [...] Expr : 07/14/25 Indication: FOR NAUSEA/VOMITING 6) POTASSIUM CL 20MEQ SA TAB (DISPERSIBLE) Qty: ACTIVE Issue: 07/27/24 8 for 15 days Sig: TAKE ONE-HALF TABLET BY Refills: 0 Last : 07/27/24 MOUTH ONCE A DAY TAKE WITH FOOD Expr : 08/26/24 Indication: FOR POTASSIUM SUPPLEMENTATION 7) PROPRANOLOL HCL 10MG TAB Qty: 45 for 45 days ACTIVE Issue: 07/22/24 Sig: TAKE ONE-HALF TABLET BY MOUTH TWICE A Refills: 2 Last : 07/23/24 DAY FOR VARICEAL PROPHYLAXIS Expr : 07/23/25 Indication: FOR HIGH BLOOD PRESSURE 8) SULFAMETHOXAZOLE 800/TRIMETH 160MG TAB Qty: ACTIVE Issue: 07/21/24 2 for 2 days Sig: TAKE 1 TABLET BY MOUTH Refills: 0 Last : 07/22/24 EVERY 24 HOURS (ONCE A DAY) TAKE WITH Expr : 08/20/24 WATER/AVOID SUNLIGHT. Indication: FOR SBP PROPHYLAXIS Start Date Active Non-VA Medications Status Stop Date ======== 1) Non-VA AMPHETAMINE/DEXTROAMPHET 30MG SA CAP ACTIVE [...] BY ACTIVE MOUTH ONCE A DAY NEEDED 14 Total Medications FHx: No colon CA or polyps. No IBD. No liver, stomach or pancreatic disease. SHx: Smoking- none EtOH- none Drugs- RSO (cannabis extract with high levels of THC) Vitals-97.6 F [36.4 C] (08/11/2024 08:05)57 (08/11/2024 08:05)100/65 (08/11/2024 08:05)18 (08/11/2024 08:05) Measurement DT POx (L/MIN)(%) 08/11/2024 08:05 96 08/11/2024 05:50 97 08/11/2024 00:00 99 08/10/2024 18:00 100 General: NAD, alert, cooperative HEENT: EOMI, NC/AT Lungs: CTAB CV: RRR, normal S1/S2, no m/r/g Abdomen: soft, non tender to palpation, bowel sounds normal Ext: moves all ext, no edema Neuro: AAOx3, CN 2-12 grossly intact, no FND Psych: appropriate mood and affect Hemoccult:No FOBT EO data found LABS: Hgb HGB 7.5 L g/dL 08/11/2024 06:00 Hct 23.3 % L (08/11/24 06:00) MCV 96.3 fL (08/11/24 06:00) Plt PLT 63 L 10*3/uL 08/11/2024 06:00 Iron, TIBC IRON 21 L ug/dL 08/11/2024 06:00 TIBC 263 ug/dL 08/11/2024 06:00 Patricio No FERRITIN EO data found BUN 16.8 mg/dL (08/10/24 20:00) Cr CREATININE 0.84 mg/dL 08/10/2024 20:00 Alb ALBUMIN 2.6 L g/dL 08/11/2024 06:00 Ca 8.4 mg/dL (08/10/24 20:00) TSH TSH 3.991 uIU/mL 08/10/2024 11:30 Vit D No VITAMIN D 25 HYDROXY EO data found ALT 10 U/L (08/11/24 06:00) AST 28 U/L (08/11/24 06:00) TB TOTAL BILIRUBIN 0.8 mg/dL 08/11/2024 06:00 AP ALKALINE PHOSPHATASE 72 U/L 08/11/2024 06:00 INR INR VALUE 1.4 INR 08/11/2024 06:00 PROTIME 15.5 H sec 08/11/2024 06:00 IMAGING: Impression for CT ABDOMEN AND PELVIS W/CONTRAST, [...] hernias. Dictated by Kenneth Albright DO (radiology asst). I, Petros Mccord, have reviewed the images and report and concur with these findings. Impression for US ABDOMEN LTD, SINGLE ORG OR QUADRANT, 06/07/22, case [id number] 1. Ultrasound Category: 3 2. Visualization score: A 3. Other findings: Chronic liver disease. The hepatic vasculature is patent, please see above for details. US LI-RADS REFERENCE: US-1 negative: No evidence of HCC US-2 subthreshold: Observation(s) detected that may warrant short-interval US surveillance; observation <10 mm in diameter, not definitely benign. US-3 positive: Observation(s) detected that may warrant multiphase contrast-enhanced imaging; observation ? 10 mm in diameter or new thrombus in vein. Visualization Score: A: No or minimal limitations; limitations, if any, are unlikely to meaningfully affect sensitivity B: Moderate limitations; limitations my obscure small masses C: Severe limitations; limitations significantly lower sensitivity for focal liver lesions No Impressions found EGD 07/18/24 - Small to medium sized esophageal varices. - Portal hypertensive gastropathy. EGD 05/16/23 The Diapharagmatic pinch, gastroesophageal junction and squamocolumnar junction were located at 43 cm . Esophagus Severe inflammation and thick layer of white plaques coating the entire oropharynx and eosphagus s/p brushings to evaluate for edenilson esophagitis. The exam was abbreviated due to severity of inflammation. Medium sized varices were seen however examination limited. Stomach IMP: #melena #acute on chronic anemia recent EGD without clear active bleeding culprit likely oozing from PHG at the time restarted on propranolol at discharge however seems to continue to bleed Hgb 8.8, then down to 7.1 overnight continues to have melena at this time DDX includes PHG, variceal, other UGIB. cannot rule out non-UGIB etiology including nose bleed from SCC or RSO changing stool/emesis color CT shows new duodenal wall thickening #cirrhosis #HCC Etiology: HCV, cured MELD: 10 Ascites: present on imaging EV: present on latest EGD HCC: present s/p TACE HE: no history REC: -EGD today -IV pantoprazole 40mg BID -ceftriaxone 1g daily for SBP ppx -Octreotide gtt -if able, please obatin diagnostic paracentesis -obtain blood cultures and chest Xray as part of infectious workup in cirrhosis with possible decompensating event -please keep NPO -type and screen patient -please ensure 2 large bore IVs -serial CBC, transfuse to maintain Hgb>7, plts>50 and INR<2 -monitor stools for signs of GI bleeding including hematochezia and melena -if patient has recurrent large volume bleed, please obtain CTA JOANN -please hold all antiplts and anticoagulation -if patient develops hemodynamic instability please call GI fellow transition of care specialist Plan was discussed with the [place], the primary team and the GI attending on service: Dr Davis /shaq/ Shane Miles MD GASTROENTEROLOGY FELLOW Signed: 08/11/2024 11:17 /shaq/ KAVIN DAVIS Gastroenterology Cosigned: 08/11/2024 11:20 08/11/2024 ADDENDUM STATUS: COMPLETED Chart reviewed. Case discussed with fellow. Patient seen and examined. Will proceed with endoscopic evaluation today and further thoughts thereafter. Pleasant man with cirrhosis/HCC and multiple comorbid conditions. Suspect that the blood loss anemia is multifactorial (PHG, nosebleeds, +/- varices, etc.) Agree with ppi, octreotide, Abx, and EGD. Patient is understanding of the plan and agreeable to proceeding with EGD. I agree with the note including the assessment and plan which were formulated together. /eze DAVIS Gastroenterology Signed: 08/11/2024 11:24 SHANE MEDEROS [facility] Aug 11, 2024 10:43 AM PREPROCEDURE NOTE: LOCAL TITLE: PHYSICIAN PRE-PROCEDURE ASSESSMENT ST STANDARD TITLE: PREPROCEDURE NOTE DATE OF NOTE: AUG 11, 2024@10:43 ENTRY DATE: AUG 11, 2024@10:43:51 AUTHOR: SHANE MEDEROS EXP COSIGNER: KAVIN DAVIS URGENCY: STATUS: COMPLETED Airway: No significant abnormality Mallampati Score: 2 Neck Extension: Limited Teeth: No significant abnormality Cardiac: No significant abnormality Pulmonary: No significant abnormality Gastrointestinal: No significant abnormality Neurological: No significant abnormality ASA Score: 3 Abdominal and Pelvic Surgical History: Sedation/Anesthesia Plan: Anesthesia consult History of previous adverse reaction to sedation: No Tobacco use: No Alcohol use: No Recreational drug use: No Last oral intake:08/10/24 Time spent:5-9 minutes /eze Miles MD GASTROENTEROLOGY FELLOW Signed: 08/11/2024 10:44 /eze DAVIS Gastroenterology Cosigned: 08/11/2024 14:42 SHANE MEDEROS [facility] Aug 11, 2024 10:22 AM CONSENT: LOCAL TITLE: CONSENT CLINICAL IMED STANDARD TITLE: CONSENT DATE OF NOTE: AUG 11, 2024@10:22:33 ENTRY DATE: AUG 11, 2024@10:23:23 AUTHOR: FARNAZ SINGH EXP COSIGNER: URGENCY: STATUS: COMPLETED VistA Imaging - Scanned Document Signature Informed Consent for EGD with Possible Interventions (VA) (Esophagogastroduodenoscopy (EGD) with Possible Interventions) 1. Anatomical Location: See description of treatment/procedure 2. Informed consent was obtained at 10:20 AM on 08/11/24. The full consent document can be accessed through [facility]. 3. Patient name: ABRAHAM HAWK 4. The patient HAS decision-making capacity. 5. Surrogate (if applicable): 6. Reason for the treatment (diagnosis, condition, or indication): To examine and treat the esophagus, stomach, and first part of small intestine for abnormalities and disease. 7. Treatment/procedure: Upper GI endoscopy or esophagogastroduodenoscopy (EGD) is a procedure to look at and treat problems in your esophagus (swallowing tube), stomach, and first part of your small intestine (duodenum). A flexible, steerable tube (endoscope) will be used. This tube has a light, camera and openings for tools. Before the procedure starts, your throat may be sprayed with some numbing medication. After that, you may be given medicine to make you sleepy (sedation). After you are sleepy, the tube will be passed through your mouth and into your esophagus, stomach, and duodenum. Several things can be done with the endoscope, depending on what is found. These include: * Take photographs. * Remove samples of tissue (biopsies). * Remove growths. * Control or prevent bleeding by injecting medicines, applying heat (cautery) or placing clips or rubber bands. * Stretch narrow areas with balloons or tapered plastic dilators. * Other things the doctor thinks are necessary. 8. Anesthesia will be administered. A member of the anesthesia care team will visit you before your treatment to discuss the type(s) of anesthesia you may need and to give you more information about anesthesia. It may become necessary to alter your anesthesia care plan after this discussion. Devices may be applied to your body and placed in your veins and arteries to monitor you during your anesthesia. All forms of anesthesia involve some risk. Minor (not life-threatening) risks include: nausea, vomiting, and pain where an injection is given. Although rare, severe complications include: injury to blood vessels, drug reactions, bleeding, blood clots, loss of sensation or limb function, infection, paralysis, stroke, brain damage, heart attack, and . Here is a basic description of the major types of anesthesia including their risks in addition to those described above: General anesthesia involves drugs that are injected into the bloodstream or breathed into the lungs. A tube or other device may be inserted into your airway to help you breathe. The expected benefit is that you will be totally unconscious and you will not feel pain during the procedure. Additional risks include: injury to the teeth, throat, eyes, or lung. In less than one case in a thousand, patients may be aware of activities during their surgery. Spinal or epidural analgesia/anesthesia involves a drug being injected through a needle or catheter placed into the spinal canal. The expected benefit is a temporary decreased feeling in the area of surgical incision, allowing surgery to proceed without pain. Additional risks include: headache, backache, convulsions, persistent weakness and or numbness, abnormal heart rhythms, and incomplete pain relief during the operation that may require general anesthesia. Major/minor nerve block involves a drug being injected near nerves providing loss or reduction of sensation and movement to the area. The expected benefit is a temporary loss of feeling and/or movement of a specific limb or area of your body. Additional risks include: convulsions, persistent weakness and or numbness, and incomplete pain relief during the operation that may require general anesthesia. Monitored anesthesia care involves monitoring of the heart and lungs to make sure that they are functioning adequately during your procedure. A local anesthetic will be injected to prevent pain, and the anesthesia care provider may use drugs to help you relax, and lessen any pain. You may remain conscious throughout your procedure, or you may be given medications that will make you unconscious. The expected benefit is that you will be comfortable during your operation with a minimum amount of anesthesia. This may result in a shorter stay in the hospital. Additional risks include: incomplete pain relief during the operation that may require additional anesthesia. Convulsions from the injected drug are a rare but serious complication. 9. Consent to Blood Products (if applicable): It is not expected that blood products will be used in this treatment/procedure. 10. Practitioner obtaining consent: Shane Miles MD 11. Supervising practitioner: Kavin Davis MD 12. Practitioner(s) performing or supervising treatment/procedure (if not listed above): 13. Witness Name(s): 14. Comments: SCANNED DOCUMENT SIGNATURE NOT REQUIRED Electronically Filed: 08/11/2024 by: FARNAZ KEMP [facility] Aug 11, 2024 08:10 AM NURSING NOTE: LOCAL TITLE: VAAES SKIN INSPECTION/ASSESSMENT STANDARD TITLE: NURSING NOTE DATE OF NOTE: AUG 11, 2024@08:10 ENTRY DATE: AUG 11, 2024@08:11 AUTHOR: BRAYAN,ALMA DELIA EXP COSIGNER: URGENCY: STATUS: COMPLETED Assessment Type: INITIAL SKIN INSPECTION/ASSESSMENT SKIN INSPECTION: Skin Color: Usual for ethnicity Skin Temperature: Warm Skin Moisture: Normal Skin Turgor: Elastic (normal/immediate) Bautista Skin Assessment: The patient's Bautista Scale Score is 16. The patient is at mild risk for development of pressure ulcer/injury. Sensory perception -- ability to respond meaningfully to pressure-related discomfort Slightly limited. Moisture -- degree to which skin is exposed to moisture Occasionally moist. Activity -- ability to change and control body position Walks occasionally. Mobility -- ability to change and control body position Slightly limited. Nutrition -- usual food intake patterns Probably inadequate. Friction and shear Potential problem. INTERVENTIONS: No change in previous interventions as listed below Pressure Ulcer-Education 07/19/2024 Educate Importance Of Changing Position Pressure Ulcer-Friction/Shear 07/19/2024 Head of Bed Below 30 Degrees When Not Eating Pressure Ulcer-Moisture 07/19/2024 Maintain Clean Dry Skin Pressure Ulcer-Nutrition 07/19/2024 Encourage Eating And Assist With Meals Monitor Fluid/Food Intake Offer Liquids Q2H When Turning Offer Ordered Supplements Pressure Ulcer-Pressure Reducing 07/19/2024 Frequent Position Changes Specialty Bed/Surface ICU bed Pressure Ulcer-Remobilize 07/19/2024 Encourage Activity As Tolerated Vaaes Pressure Injury Interventions 08/10/2024 Vaaes Pressure Injury Int Not Needed RISK FACTORS THAT INCREASE RISK FOR DEVELOPING PRESSURE INJURIES: The patient/resident has the following: Device(s): (nasogastric tubes, oxygen tubing, urinary catheters, cell phone etc.) Comment: TELE MONITOR, PIV Localized abnormality: Rash: Location: whole body Diffuse /es/ ALMA DELIA SCHMIDT, RN REGISTERED NURSE Signed: 08/11/2024 08:13 ALMA DELIA SCHMIDT [facility] Aug 11, 2024 08:06 AM NURSING INPATIENT NOTE: LOCAL T[facility] NSG SHIFT ASSESSMENT STANDARD TITLE: NURSING INPATIENT NOTE DATE OF NOTE: AUG 11, 2024@08:06 ENTRY DATE: AUG 11, 2024@08:06:46 AUTHOR: ALMA DELIA SCHMIDT EXP COSIGNER: URGENCY: STATUS: COMPLETED Version 2.2 Charting in accordance with [place] STANDARD ([place]) ACUTE INPATIENT/REHABILITATION NURSING ADMISSION SCREENING, ASSESSMENT, AND STANDARDS OF CARE ASSESSMENT HANDOFF Bedside report and handoff completed Safety check completed PAIN ASSESSMENT Patient's acceptable pain goal: 0 No pain Are you currently experiencing pain? No: Pain Score: 0 BECKER FALL SCALE & TIPS PROGRAM Becker Fall Scale: The Becker Fall scale was performed and score was 45. This is indicative of high risk for falls. History of falling: immediate or within 3 months? No Secondary diagnosis: Yes Ambulatory aid: None/bedrest/nurse assist Intravenous therapy/Heparin lock: Yes Gait/Transferring: Weakness Mental Status: Oriented to own ability/knows own limitations Fall Tailoring Interventions for Patient Safety (TIPS) Fall TIPS initiated with patient: Yes Interventions: Assistance out of bed: Call for assistance before getting out of bed Safe patient handling device necessary Fall TIPS reviewed with patient: Yes Interventions: Assistance out of bed: Call for assistance before getting out of bed Safe patient handling device necessary ENVIRONMENTAL SAFETY MANAGEMENT Implemented safety standards of care: -[place] to unit & environment -Adequate room lighting -Bed in low and locked position -Call light within reach -Personal items within reach -Traffic path in room free of clutter -Non-slip footwear -Upper/half length side rails up for bed mobility -Sensory aids within reach -Encourage patient to utilize sensory support NEUROLOGICAL Neurological Orientation: Oriented x4 Level of Consciousness (AVPU): Alert = Appears aware of and responsive to the environment on their own. Follows commands, opens eyes spontaneously, and tracks objects. 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 Edema: None RESPIRATORY Respirations: Unlabored Pattern: Regular Breath Sounds Auscultated: Anterior and posterior Left Upper Lobe: Clear Right Upper Lobe: Clear Right Middle Lobe: Clear Left Lower Lobe: Clear Right Lower Lobe: Clear GASTROINTESTINAL No bowel movement reported by patient Elimination: Continent Abdominal Description: Flat Palpation: Soft Bowel Sounds: RUQ: Active LUQ: Active RLQ: Active LLQ: Active GENITOURINARY Elimination: Continent INTEGUMENTARY/SKIN/WOUND - (INCLUDING BAUTISTA) SEE NOTE: VAAES SKIN INPECTION/ASSESSMENT MOBILITY Mobility Status: Minimum assist: Stands with support only (Unsteady or requires verbal cueing) Gait: Steady IV LINES Peripheral IV: Line #1: Assessment: Location: Right Gauge: 20 Dressing Condition: Clean, dry, intact Site Condition: No redness, swelling, pain Line Status: Patent/infusing Line #2: Assessment: Location: Right Gauge: 22 Dressing Condition: Clean, dry, intact Site Condition: No redness, swelling, pain Line Status: Patent/infusing PSYCHOSOCIAL Type of Emotional Support Provided: 1:1 discussion, Hospitalization discussion ADULT EDUCATION Updates to barriers to learning: None evident Updates to patient learning style: Verbal explanation Education provided: Topic 1: fall precaution Specific Content: use call light when get out of bed Method: Verbal Provided to: Patient Patient understanding of education content: Verbalized understanding /es/ ALMA DELIA SCHMIDT RN REGISTERED NURSE Signed: 08/11/2024 08:10 ALMA DELIA SCHMIDT [facility] Aug 11, 2024 07:03 AM INTERNAL MEDICINE INPATIENT NOTE: LOCAL TITLE: MEDICINE GENERAL INPATIENT NOTE STANDARD TITLE: INTERNAL MEDICINE INPATIENT NOTE DATE OF NOTE: AUG 11, 2024@07:03 ENTRY DATE: AUG 11, 2024@07:03:36 AUTHOR: GILSON BOWENS EXP COSIGNER: FIONA ABRAHAM URGENCY: STATUS: COMPLETED MEDICINE GENERAL INPATIENT NOTE Has ADDENDA CC: Vomiting and dark stools HPI: This is a 68 yo M with PMHx of HCC 2/2 chronic HCV, 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 Likely UGIB 2/2 esophageal varices. 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 Medications: Active Outpatient Medications (excluding Supplies): Issue Date Status Last Fill Active Outpatient Medications Refills Expiration ======= = 1) FUROSEMIDE 20MG TAB Qty: 15 for 15 days Sig: ACTIVE Issue: 07/27/24 TAKE ONE TABLET BY MOUTH EVERY MORNING Refills: 0 Last : 07/27/24 Indication: FOR FLUID RETENTION (EDEMA) Expr : 08/26/24 2) LOPERAMIDE HCL 2MG CAP Qty: 100 for 30 days ACTIVE Issue: 07/13/24 Sig: TAKE TWO CAPSULES BY MOUTH DIRECTED Refills: 11 Last : 07/13/24 AT FIRST ONSET OF DIARRHEA THEN 1 CAPSULE Expr : 07/14/25 AFTER EACH LOOSE STOOL UNTIL DIARRHEA FREE FOR 12 HOURS Indication: FOR DIARRHEA 3) NUTRITION SUPL TWOCAL HN/VANILLA LIQUID Qty: ACTIVE Issue: 08/03/24 72 for 24 days Sig: TAKE 3 CANFULS BY MOUTH Refills: 2 Last : 08/03/24 DIRECTED Expr : 08/04/25 Indication: FOR NUTRITION/DIETARY SUPPLEMENTATION 4) OMEPRAZOLE 40MG [...] Expr : 07/14/25 Indication: FOR NAUSEA/VOMITING 6) POTASSIUM CL 20MEQ SA TAB (DISPERSIBLE) Qty: ACTIVE Issue: 07/27/24 8 for 15 days Sig: TAKE ONE-HALF TABLET BY Refills: 0 Last : 07/27/24 MOUTH ONCE A DAY TAKE WITH FOOD Expr : 08/26/24 Indication: FOR POTASSIUM SUPPLEMENTATION 7) PROPRANOLOL HCL 10MG TAB Qty: 45 for 45 days ACTIVE Issue: 07/22/24 Sig: TAKE ONE-HALF TABLET BY MOUTH TWICE A Refills: 2 Last : 07/23/24 DAY FOR VARICEAL PROPHYLAXIS Expr : 07/23/25 Indication: FOR HIGH BLOOD PRESSURE 8) SULFAMETHOXAZOLE 800/TRIMETH 160MG TAB Qty: ACTIVE Issue: 07/21/24 2 for 2 days Sig: TAKE 1 TABLET BY MOUTH Refills: 0 Last : 07/22/24 EVERY 24 HOURS (ONCE A DAY) TAKE WITH Expr : 08/20/24 WATER/AVOID SUNLIGHT. Indication: FOR SBP PROPHYLAXIS Start Date Active Non-VA Medications Status Stop Date ======= = 1) Non-VA AMPHETAMINE/DEXTROAMPHET 30MG SA CAP ACTIVE [...] BY ACTIVE MOUTH ONCE A DAY NEEDED 14 Total Medications Life Sustaining Treatment Orders Cohort: Reminder Term: [facility]-LIFE SUSTAINING TREATMENT ORDERABLE ITEMS Orderable Item: LST FULL CODE 07/17/2024@19:08 Status: active, Start date: 07/17/2024@19:08, Stop date: missing Duration: 24 D Medications were reviewed with the patient/caregiver and discrepancies resolved. Allergies: Patient has answered NKA Social History: Lives with , who is decision-maker in his absence. Otherwise non-contributory. Family History: Non-contributory Review of Systems: Review of systems reviewed in detail and negative except as noted in HPI and below. Constitutional: HEENT: CV: Pulm: GI: : Neuro: Derm: MSK: Heme: Psych: Physical Exam: Vitals: (most recent, as listed in the electronic record): B/P: 129/74 (08/10/2024 16:54) Pulse: 74 (08/10/2024 16:54) Temperature: 97.8 F [36.6 C] (08/10/2024 12:19) Weight: 152.1 lb [68.99 kg] (08/10/2024 11:31) Height: 72 in [182.9 cm] (07/26/2023 08:00) BMI: 20.7 Pain: 7 (08/10/2024 12:19) (0-10 scale) General: Appears comfortable, no acute distress. Skin: HEENT: Neck: No JVD Lungs: Breathing comfortably on room air Cardiovascular: RRR Abdominal: Non-focal, non-tender. Protuberant but no ascites. Rectal: : Extremities: Warm and well perfused. Bruising and bleeding from skin diffusely Musculoskeletal: Neuro: Psych: Imaging: Impression for CHEST PORTABLE, 07/27/24, case [id number] No focal pneumonia or pleural effusion. Minimal left basilar atelectasis. No CHF. Left upper lobe nodule could be benign or malignant as noted on 07/17/[address] Ongoing follow-up advised. Report dictated by Krystian Sultana D.O. (radiology asst) Sol Kilgore, have reviewed the images and report and concur with these findings. Assessment/Plan: This is a 68 yo M with 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 # Vomiting # Nausea # Abdominal pain # History of HCC # History of cirrhosis, compensated # Known history varices Patient is at high risk for coagulopathy and has known varices. Given his history of nosebleeds and known malignancy, a posterior nasopharyngeal bleed is possibly the etiology of his nausea and vomiting. The black color suggests not UGIB but rather related to OTC meds being taken. Currently symptoms are managed and not vomiting. Given high propensity for catastrophic variceal bleeding and/or SBP, will treat empirically and plan for scope in AM. - NPO - D5 - Rocephin, octreotide, defer nadolol - IV PPI - Will request abdominal US to r/o ascites --> diag para if necessary - q6 cbc - ctm lfts - blood cultures # Melena? Black tarry stools Given bleeding propensity, cannot dismiss stools as exclusively related to OTC suppositories being taken. Hgb drop also makes occult bleed more likely. - As above; keep NPO - Will consider lower scope if EGD negative # ABLA Most likely acute blood loss related given 3g drop. Given he is bleeding from ecchymoses diffusely on skin, likely is intolerant of Keytruda therapy. - Hold keytruda; tbw onc - Transfuse > 8 w/ bleeding, 7 if no evidence of bleeding - Cbcs, vital signs - Iron panel; can replete as indicated when stable /shaq/ GILSON BOWENS Resident Physician Signed: 08/11/2024 07:06 /shaq/ FIONA ABRAHAM M.D., [facility] Staff Physician - Gastroenterology Cosigned: 08/11/2024 11:25 08/11/2024 ADDENDUM STATUS: COMPLETED I interviewed and examined the patient today with the house staff. I reviewed the pertinant laboratory, EKG, and radiologic findings. I reviewed this note and agree in general with the data, synthesis, and plan as outlined in the resident's note and discussed on rounds. /shaq/ FIONA ABRAHAM M.D., [facility] Staff Physician - Gastroenterology Signed: 08/11/2024 11:25 GILSON BOWENS [facility] Aug 10, 2024 08:00 PM NURSING NOTE: LOCAL TITLE: [facility] SKIN INSPECTION/ASSESSMENT STANDARD TITLE: NURSING NOTE DATE OF NOTE: AUG 10, 2024@20:00 ENTRY DATE: AUG 10, 2024@21:00:06 AUTHOR: NIECY CORDERO EXP COSIGNER: URGENCY: STATUS: COMPLETED Assessment Type: SKIN REINSPECTION/REASSESSMENT SKIN INSPECTION: Skin Color: Usual for ethnicity Skin Temperature: Warm Skin Moisture: Normal Skin Turgor: Elastic (normal/immediate) Bautista Skin Assessment: The patient's Bautista Scale Score is 20. The patient is considered not at risk for development of pressure ulcers/injuries. Sensory perception -- ability to respond meaningfully to pressure-related discomfort No impairment. Moisture -- degree to which skin is exposed to moisture Rarely moist. Activity -- ability to change and control body position Walks occasionally. Mobility -- ability to change and control body position Slightly limited. Nutrition -- usual food intake patterns Adequate. Friction and shear No apparent problem. INTERVENTIONS: No change in previous interventions as listed below Pressure Ulcer-Education 07/19/2024 Educate Importance Of Changing Position Pressure Ulcer-Friction/Shear 07/19/2024 Head of Bed Below 30 Degrees When Not Eating Pressure Ulcer-Moisture 07/19/2024 Maintain Clean Dry Skin Pressure Ulcer-Nutrition 07/19/2024 Encourage Eating And Assist With Meals Monitor Fluid/Food Intake Offer Liquids Q2H When Turning Offer Ordered Supplements Pressure Ulcer-Pressure Reducing 07/19/2024 Frequent Position Changes Specialty Bed/Surface ICU bed Pressure Ulcer-Remobilize 07/19/2024 Encourage Activity As Tolerated Vaaes Pressure Injury Interventions 08/10/2024 Vaaes Pressure Injury Int Not Needed RISK FACTORS THAT INCREASE RISK FOR DEVELOPING PRESSURE INJURIES: The patient/resident has the following: Known vascular surgery or vascular disease Device(s): (nasogastric tubes, oxygen tubing, urinary catheters, cell phone etc.) Comment: iv, tele leads Localized abnormality: Rash: Location: whole body Diffuse /es/ JEFF VILLAFANA RN REGISTERED NURSE Signed: 08/10/2024 21:09 NIECY CORDERO [facility] Aug 10, 2024 08:00 PM NURSING INPATIENT NOTE: LOCAL TITLE: [facility] ACUTE INPATIENT NSG SHIFT ASSESSMENT STANDARD TITLE: NURSING INPATIENT NOTE DATE OF NOTE: AUG 10, 2024@20:00 ENTRY DATE: AUG 11, 2024@02:31:49 AUTHOR: NIECY CORDERO EXP COSIGNER: URGENCY: STATUS: COMPLETED Version 2.2 Charting in accordance with [place] STANDARD ([facility]) ACUTE INPATIENT/REHABILITATION NURSING ADMISSION SCREENING, ASSESSMENT, AND STANDARDS OF CARE ASSESSMENT HANDOFF Bedside report and handoff completed Safety check completed PAIN ASSESSMENT Patient's acceptable pain goal: 0 No pain Are you currently experiencing pain? No: Pain Score: 0 BECKER FALL SCALE & TIPS PROGRAM Becker Fall Scale: The Becker Fall scale was performed and score was 20. This is indicative of low risk of falls. History of falling: immediate or within 3 months? No Secondary diagnosis: No Ambulatory aid: None/bedrest/nurse assist Intravenous therapy/Heparin lock: Yes Gait/Transferring: Normal/bed rest/immobile Mental Status: Oriented to own ability/knows own limitations Fall Tailoring Interventions for Patient Safety (TIPS) Fall TIPS reviewed with patient: Yes Interventions: Communicate recent fall or risk of harm ENVIRONMENTAL SAFETY MANAGEMENT Implemented safety standards of care: -[place] to unit & environment -Adequate room lighting -Bed in low and locked position -Call light within reach -Personal items within reach -Traffic path in room free of clutter -Non-slip footwear -Upper/half length side rails up for bed mobility -Sensory aids within reach -Encourage patient to utilize sensory support NEUROLOGICAL Neurological Orientation: Oriented x4 Level of Consciousness (AVPU): Alert = Appears aware of and responsive to the environment on their own. Follows commands, opens eyes spontaneously, and tracks objects. Affect/behavior: Calm Harrell Agitation Sedation Scale (RASS): 0 Alert and calm ASPIRATION RISK ASSESSMENT AND SWALLOW SCREEN Aspiration Risk(s): Screening complete. No aspiration risk identified. Bedside Swallow Screen not indicated. 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 Peripheral Pulses: All 4 extremities, 3+ normal. Edema: None RESPIRATORY Respirations: Unlabored Pattern: Regular Breath Sounds Auscultated: Anterior only Left Upper Lobe: Clear Right Upper Lobe: Clear Right Middle Lobe: Clear Left Lower Lobe: Clear Right Lower Lobe: Clear GASTROINTESTINAL Passing flatus Elimination: Continent Abdominal Description: Rounded Palpation: Soft, Non-tender Bowel Sounds: RUQ: Active LUQ: Active RLQ: Active LLQ: Active GENITOURINARY Elimination: Continent INTEGUMENTARY/SKIN/WOUND - (INCLUDING BAUTISTA) SEE NOTE: VAAES SKIN INPECTION/ASSESSMENT IV LINES Peripheral IV: Line #1: Assessment: Location: Right, Forearm Gauge: 20 Dressing Condition: Clean, dry, intact Site Condition: No redness, swelling, pain Line Status: Patent/infusing Line #2: Insertion: Date/Time: Jul@22:00 Inserted by (name): Location: Right, Forearm Gauge: 22 /shaq/ JEFF VILLAFANA RN REGISTERED NURSE Signed: 08/11/2024 02:49 NIECY CORDERO [facility] Aug 10, 2024 07:38 PM TELEHEALTH NOTE: LOCAL TITLE: TELECRITICAL CARE NOTE STANDARD TITLE: TELEHEALTH NOTE DATE OF NOTE: AUG 10, 2024@19:38 ENTRY DATE: AUG 10, 2024@19:38:22 AUTHOR: ABRAHAM THOMAS EXP COSIGNER: URGENCY: STATUS: COMPLETED TeleCritical Care Note TeleCritical Care Nurse Note: Admission: Patient admitted to TeleCritical Care. Upon discharge from ICU or Stepdown/PCU status, patient will be discharged from TeleCritical Care. Education/Verbal Agreement to video monitoring by TeleCritical Care: Verbal agreement obtained by TeleCritical Care staff from vickie /shaq/ JEFF Baum, senior java data architect-operator vacuum Signed: 08/10/2024 19:39 ABRAHAM THOMAS [facility] Aug 10, 2024 06:27 PM ADMINISTRATIVE NOTE: LOCAL TITLE: ADMINISTRATIVE STL STANDARD TITLE: ADMINISTRATIVE NOTE DATE OF NOTE: AUG 10, 2024@18:27 ENTRY DATE: AUG 10, 2024@18:27:34 AUTHOR: JESSICA HUIZAR EXP COSIGNER: URGENCY: STATUS: COMPLETED Winona Abraham Hawk from -Emergency DEPT has been admitted into [id number]. Notified Dr. Gilson Bowens and nurse in charge of patient care made aware of inpatient admission. /sahq/ JESSICA HUIZAR ADVANCED MOLASSES AND CARAMEL OPERATOR Signed: 08/10/2024 18:28 Receipt Acknowledged By: 08/10/2024 22:45 /shaq/ SIMON BRISENO FABRICATOR FOAM RUBBER MOLASSES AND CARAMEL OPERATOR JESSICA HUIZAR [facility] Aug 10, 2024 06:00 PM NURSING ADMISSION EVALUATION NOTE: LOCAL TITLE: [facility] ACUTE INPATIENT NSG ADMISSION SCREEN STANDARD TITLE: NURSING ADMISSION EVALUATION NOTE DATE OF NOTE: AUG 10, 2024@18:00 ENTRY DATE: AUG 10, 2024@19:04:23 AUTHOR: ADELAIDA VAN EXP COSIGNER: URGENCY: STATUS: COMPLETED ALLERGY/ADVERSE DRUG REACTION (ADR) REVIEW (MRT5) FACILITY ALLERGY/ADR -------- No Remote Allergy/ADR Data available for this patient [facility] No Known Allergies Allergy/Adverse Drug Reaction Review to be conducted by: Provider MEDICATION REVIEW (MRR1) Did patient bring medication(s) from home? No Medication Review to be conducted by Provider GENERAL INFORMATION Admission information given by: Patient Spouse: Is there a legal guardian/conservator? No Preferred language for discussing healthcare: Kazakh Preferred mode of communication: Verbal Sensory Deficits & Contributing Information: Hearing deficit: Bilateral Visual deficit: Bilateral Items at Bedside: Visual Aids: Standard Glasses Hearing Aid(s): Bilateral INFECTIOUS DISEASE RISK SCREEN Travel Screen: Have you traveled within the [place] within the last 21 days? No Have you traveled outside the [place] within the last 21 days? No Within the last 14 days, have you had: No known exposure Other Exposure to Infectious Disease: No known exposure Patient reported the following symptoms: No Symptoms Present History of Multiple Drug Resistant Organism (MDRO): No Methicillin-resistant Staphylococcus aureus (MRSA) Swabbing: Informed verbal consent obtained Education provided NUTRITION SCREENING Malnutrition Screening Weight (Previous 6 months): Measurement DT WEIGHT LB(KG)[BMI] 08/10/2024 11:31 152.1(68.99)[21] 08/02/2024 12:04 159.7(72.44)[22] 07/22/2024 05:53 162.1(73.53)[22] 07/21/2024 05:54 162.1(73.53)[22] 05/11/2024 14:21 161.2(73.12)[22] 04/23/2024 13:29 160.7(72.89)[22] Lost weight recently without trying: Yes: Amount weight lost: 1-5 kg (2-13 lbs) (1 point) Have you been eating poorly because of decreased appetite? Yes (1 point) Total Score: 2 Other Nutrition Screening Questions: The patient has concerns with their teeth that make it difficult to eat. Comment: unable to wear dentures d/t lock jaw/pain The patient does not report overeating to the point of feeling sick or making themselves vomit. The patient denies gaining 10 lbs.(4.5 kgs) or more in the past 3 months without trying. The patient denies having any food allergies, intolerance, special dietary needs, or ethnic, cultural or confucianist preferences that would affect their dietary needs. A Registered Dietitian consult/notification was placed. Food Insecurity Screening Within the past 12 months, you worried whether your food would run out before you got money to buy more. Never true Within the past 12 months, the food you bought just did not last you and you did not have the money to get more. Never true Food Insecurity Disposition: Patient declined additional assistance/consults RISK SCREENINGS Alcohol Screen: Screen to be completed by: Provider *Does the patient consume alcohol? No Tobacco Use: Never - tobacco user Do you currently or have you ever used alternative nicotine products? No Substance Use Assessment: *Do you use any recreational drugs or narcotics (prescription or non-prescription)? Yes: Cannabinoids/Marijuana: Amount used/Frequency: Date/Time of last use: Offer Services for Substance Use Disorder: RISK OF WANDERING The patient does not have a history of wandering. The patient does not have a history of elopement. The patient is not expressing a desire to leave. SUICIDE SCREEN Result of C-SSRS screener done was NEGATIVE. C-SSRS Screen is Negative EXPOSURE TO VIOLENCE AND ABUSE PRE-SCREEN Are you worried for your safety, that you will be hurt or harmed? No Has anyone tried to force you to sign papers or use your money against your will? No POST TRAUMATIC STRESS DISORDER CARE CONSIDERATIONS To minimize a startle response, what is your preference on how best to awaken you? No preference REPRODUCTIVE & SEXUAL HEALTH Do you have any sexual or reproductive concerns you would like your healthcare team to be aware of? No ADVANCE DIRECTIVE Notification of Rights Related to Advance Directives: Written notification not provided. Explain: social work *The patient wishes to receive information about or assistance with Advance Care Planning and/or Advance Directive: No SPIRITUALITY Are there confucianist practices or spiritual concerns you want the envelope press operator, your provider, and other health care team members to know? No ANTICIPATED DISCHARGE NEEDS Where do you live? Housing owned/rented by : Method of transportation upon discharge: Private Vehicle: Are there any anticipated barriers to discharge? No EDUCATIONAL NEEDS/LEARNING STYLE Barriers to learning: None evident Patient learning style preferences: None 1:1 Caregiver/family present Printed materials Verbal explanation VISITOR INFORMATION Will you have a primary support person while in the hospital? Yes: Relationship to patient: Spouse Visitor Name: Contact Number: see facesheet Patient's Visitor Restriction preferences: No Privacy Review: No passcode provided due to opt out BECKER FALL SCALE & TIPS PROGRAM Becker Fall Scale: The Becker Fall scale was performed and score was 35. This is indicative of moderate risk for falls. History of falling: immediate or within 3 months? No Secondary diagnosis: Yes Ambulatory aid: None/bedrest/nurse assist Intravenous therapy/Heparin lock: Yes Gait/Transferring: Normal/bed rest/immobile Mental Status: Oriented to own ability/knows own limitations Fall Tailoring Interventions for Patient Safety (TIPS) Fall TIPS initiated with patient: Yes Interventions: Communicate recent fall or risk of harm IV assistance when walking Toileting method: Assist to commode Assistance out of bed: Call for assistance before getting out of bed ASPIRATION RISK ASSESSMENT AND SWALLOW SCREEN Aspiration Risk(s): Screening complete. No aspiration risk identified. Bedside Swallow Screen not indicated. PAIN ASSESSMENT Patient's acceptable pain goal: 2 Notice pain, does not interfere with activities Are you currently experiencing pain? No: Pain Score: 0 /es/ JEFF SRIVASTAVA, RN REGISTERED NURSE Signed: 08/10/2024 19:15 ADELAIDA VAN [facility] Aug 10, 2024 06:00 PM NURSING NOTE: LOCAL TITLE: [facility] PERSONAL EFFECTS [facility] STANDARD TITLE: NURSING NOTE DATE OF NOTE: AUG 10, 2024@18:00 ENTRY DATE: AUG 10, 2024@19:15:24 AUTHOR: ADELAIDA VAN EXP COSIGNER: URGENCY: STATUS: COMPLETED PERSONAL EFFECTS Hazardous Check: Advised of prohibited hazardous items, Denies hazardous items, No hazardous items observed Medication Check: Denies medication on person Prosthetic Check: Glasses, Hearing Aids Personal Items: Patient/Family advised that [facility] not responsible for loss of any personal effects or valuables., Patient chooses to keep belongings at bedside., Patient present during collection of personal effects., Patient valuables observed: Patient Valuables Observed: sweatshirt, ricardo shirt, long sleeve shirt, glasses, pants, belt, socks, slippers, undies, phone/bicycle repairer, phone case/cards/IDs, bilat hearing aids/charging case /shaq/ JEFF SRIVASTAVA, RN REGISTERED NURSE Signed: 08/10/2024 19:16 ADELAIDA VAN [facility] Aug 10, 2024 06:00 PM NURSING NOTE: [facility]PECTION/ASSESSMENT STANDARD TITLE: NURSING NOTE DATE OF NOTE: AUG 10, 2024@18:00 ENTRY DATE: AUG 10, 2024@19:17:13 AUTHOR: ADELAIDA VAN EXP COSIGNER: URGENCY: STATUS: COMPLETED Assessment Type: INITIAL SKIN INSPECTION/ASSESSMENT SKIN INSPECTION: Skin Color: Usual for ethnicity, Pale Skin Temperature: Warm Skin Moisture: Normal Skin Turgor: Elastic (normal/immediate) Bautista Skin Assessment: The patient's Bautista Scale Score is 19. The patient is considered not at risk for development of pressure ulcers/injuries. Sensory perception -- ability to respond meaningfully to pressure-related discomfort No impairment. Moisture -- degree to which skin is exposed to moisture Rarely moist. Activity -- ability to change and control body position Walks occasionally. Mobility -- ability to change and control body position No limitation. Nutrition -- usual food intake patterns Very poor. Friction and shear No apparent problem. INTERVENTIONS: The pressure injury interventions were not needed - patient/resident is not at risk. RISK FACTORS THAT INCREASE RISK FOR DEVELOPING PRESSURE INJURIES: The patient/resident has the following: Known vascular surgery or vascular disease Malnutrition diagnosis Potential compromised nutritional status SKIN INTEGRITY: Intact Localized abnormality: Rash: Location: scattered petechial rash Generalized /shaq/ JEFF SRIVASTAVA, RN REGISTERED NURSE Signed: 08/10/2024 19:19 ADELAIDA VAN [facility] Aug 10, 2024 06:00 PM NURSING INPATIENT NOTE: [facility]AL T[facility] NSG SHIFT ASSESSMENT STANDARD TITLE: NURSING INPATIENT NOTE DATE OF NOTE: AUG 10, 2024@18:00 ENTRY DATE: AUG 10, 2024@19:19:35 AUTHOR: ADELAIDA VAN EXP COSIGNER: URGENCY: STATUS: COMPLETED Version 2.2 Charting in accordance with VA APPROVED [place] STANDARD (VAAES) ACUTE INPATIENT/REHABILITATION NURSING ADMISSION SCREENING, ASSESSMENT, AND STANDARDS OF CARE ASSESSMENT HANDOFF Bedside report and handoff completed Safety check completed PAIN ASSESSMENT Patient's acceptable pain goal: 2 Notice pain, does not interfere with activities Are you currently experiencing pain? No: Pain Score: 0 BECKER FALL SCALE & TIPS PROGRAM Becker Fall Scale: The Bceker Fall scale was performed and score was 35. This is indicative of moderate risk for falls. History of falling: immediate or within 3 months? No Secondary diagnosis: Yes Ambulatory aid: None/bedrest/nurse assist Intravenous therapy/Heparin lock: Yes Gait/Transferring: Normal/bed rest/immobile Mental Status: Oriented to own ability/knows own limitations Fall Tailoring Interventions for Patient Safety (TIPS) Fall TIPS initiated with patient: Yes Interventions: Communicate recent fall or risk of harm IV assistance when walking Toileting method: Assist to commode Assistance out of bed: Call for assistance before getting out of bed Fall TIPS reviewed with patient: Yes Interventions: Communicate recent fall or risk of harm IV assistance when walking Toileting method: Assist to commode Assistance out of bed: Call for assistance before getting out of bed ENVIRONMENTAL SAFETY MANAGEMENT Implemented safety standards of care: -[place]eland to unit & environment -Adequate room lighting -Bed in low and locked position -Call light within reach -Personal items within reach -Traffic path in room free of clutter -Non-slip footwear -Upper/half length side rails up for bed mobility -Sensory aids within reach -Encourage patient to utilize sensory support NEUROLOGICAL Neurological Orientation: Oriented x4 Level of Consciousness (AVPU): Alert = Appears aware of and responsive to the environment on their own. Follows commands, opens eyes spontaneously, and tracks objects. 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 Peripheral Pulses: All 4 extremities, 3+ normal. Edema: None RESPIRATORY Respirations: Unlabored Other: dyspnea on exertion Pattern: Regular Breath Sounds Auscultated: Anterior and posterior Left Upper Lobe: Clear Right Upper Lobe: Clear Right Middle Lobe: Clear Left Lower Lobe: Clear Right Lower Lobe: Clear Symptoms: Shortness of breath: With exertion Comment: GASTROINTESTINAL Last bowel movement: 08/09/2024 Passing flatus Elimination: Continent Abdominal Description: Flat Palpation: Soft, Non-tender Bowel Sounds: RUQ: Active LUQ: Active RLQ: Active LLQ: Active Symptoms: Nausea GENITOURINARY Elimination: Continent Color/Characteristic: May Clear Yellow INTEGUMENTARY/SKIN/WOUND - (INCLUDING BAUTISTA) SEE NOTE: VAAES SKIN INPECTION/ASSESSMENT IV LINES Peripheral IV: Present on admission: Line #1: Location: Right, Forearm Gauge: 20 Line #1: Assessment: Location: Right, Forearm Gauge: 20 Dressing Condition: Clean, dry, intact Transparent dressing Site Condition: No redness, swelling, pain Line Status: Patent/infusing Flushed PSYCHOSOCIAL Type of Emotional Support Provided: 1:1 discussion, Anticipated outcomes, Coping skills discussion, Disease process discussion, Hospitalization discussion, Treatment discussion, Ventilation of feelings encouraged /shaq/ JEFF SRIVASTAVA, RN REGISTERED NURSE Signed: 08/10/2024 19:25 ADELAIDA VAN [facility]
--- OUTSIDE RECORDS SUMMARY | 2024-10-08 17:14 | XMS_ITS | Encounter Summary ---
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 Date/Time Encounter Type Encounter Description Reason Provider Source Jun 07, 2024 11:15 AM ORAL FUNCTION THERAPY SPEECH-LANGUAGE PATHOLOGY ICD-10-CM R13.11 Dysphagia, oral phase MERCEDEZ PIZARRO E Encounter Template Text not used by OR Assessments - Encounter Diagnoses This section includes the primary and secondary diagnoses documented for the Encounter. Date/Time Primary/Secondary Diagnosis Diagnosis Name Provider Source Jun 07, 2024 01:39 PM PRIMARY Dysphagia, oral phase PANTERA PIZARRON [facility] Plan of Treatment: Future Appointments (+ 6 months) and Future Tests (+/- 45 days) The Plan of Treatment section includes future care activities for the patient from [facility] This section includes future appointments and future orders which are active, pending or scheduled. Future Appointments This section includes appointments that were scheduled to occur 6 months from the date of the Encounter, up to a maximum of 20 appointments. The data comes from all [place] treatment facilities. Appointment Date/Time Appointment Type Appointme nt Facility Name Jul 13, 2024 11:30 AM AMBULATORY - MEDICINE [facility] Jul 13, 2024 12:00 PM AMBULATORY - MEDICINE [facility] Jul 17, 2024 04:02 PM AMBULATORY - MEDICINE [facility] Jul 25, 2024 01:00 PM AMBULATORY - MEDICINE [facility] Jul 26, 2024 10:00 AM AMBULATORY - MEDICINE [facility] Jul 27, 2024 03:14 PM AMBULATORY - MEDICINE [facility] Aug 01, 2024 10:15 AM AMBULATORY - NONE [facility] Aug 02, 2024 11:30 AM AMBULATORY - MEDICINE [facility] Aug 02, 2024 11:31 AM AMBULATORY - MEDICINE [facility] Aug 10, 2024 11:00 AM AMBULATORY - MEDICINE [facility] Aug 10, 2024 11:31 AM AMBULATORY - MEDICINE [facility] Aug 10, 2024 11:59 AM AMBULATORY - MEDICINE [facility] Aug 16, 2024 10:00 AM AMBULATORY - MEDICINE [facility] Aug 17, 2024 08:30 AM AMBULATORY - [facility] Aug 17, 2024 09:00 AM AMBULATORY - MEDICINE [facility] Aug 17, 2024 09:30 AM AMBULATORY - [facility] Aug 23, 2024 12:00 PM AMBULATORY - [facility] Aug 31, 2024 02:00 PM AMBULATORY - MEDICINE [facility] Sep 07, 2024 11:00 AM AMBULATORY - MEDICINE [facility] Sep 07, 2024 01:00 PM AMBULATORY - MEDICINE [facility] Active, Pending, and Scheduled Orders This [...] - LAB VBECS - NO SPECIMEN REQUIRED [facility] Jul 17, 2024 12:00 AM Laboratory - Blood Bank Order FRESH FROZEN PLASMA - LAB VBECS - NO SPECIMEN REQUIRED [facility] Jul 17, 2024 06:13 PM Laboratory - Blood Bank Order DIRECT ANTIGLOBULIN TEST - LAB BLOOD STAT [facility] Jul 17, 2024 06:13 PM Laboratory - Blood Bank Order TYPE & SCREEN - LAB BLOOD [facility] Jul 18, 2024 12:00 AM Laboratory - Blood Bank Order PLATELETS - LAB VBECS - NO SPECIMEN REQUIRED [facility] Lab Results: +/- 30 days of the [...] Comment May 11, 2024 02:35 PM [facility] TSH W/ REFLEX FT4 (STL) PLASMA Specimen Type: PLASMA No comment entered. Ordering Provider: HUNTER SIMMONS Report Released Date/Time: Jan 05, 2024 02:09 PM Reporting Lab: [facility] [address] [place] [phone] Performing Lab: [facility] [address] [place] [phone] TSH 1.974 u[IU]/mL 0.47-5 May 11, 2024 02:20 PM [facility] APTT PLASMA Specimen Type: PLASM A No comment entered. Ordering Provider: BAL CAREY Report Released Date/Time: May 11, 2024 02:03 PM Reporting Lab: [address] [phone] Performing Lab: [address] [phone] APTT 28.7 s 26.7-39.9 May 11, 2024 02:20 PM [facility] HEP B CORE AB TOTAL. (L) SERUM Specimen Typ e: SERUM No comment entered. Ordering Provider: BAL CAREY Report Released Date/Time: May 11, 2024 02:18 PM Reporting Lab: [facility] [address] [place] [phone] Performing Lab: [address] [phone] HEP B CORE AB TOTAL. (STL) Nonreactive N onreactive May 11, 2024 02:20 PM [facility] PT/INR NEW (L-MA) PLASMA Specimen Type: PLAS MA No comment entered. Ordering Provider: BAL CAREY Report Released Date/Time: May 11, 2024 02:03 PM Reporting Lab: [facility] [address] [place] [phone] Performing Lab: [address] [phone] PROTIME 12.1 s 9.4-12.5 INR VALUE 1.1 {INR} May 11, 2024 02:20 PM [facility] COMPREHENSIVE METABOLIC PANEL PLASMA Specimen Type: PLASMA Comment: No hemolysis noted. Ordering Provider: BAL CAREY Report Released Date/Time: May 11, 2024 02:03 PM Reporting Lab: [facility] [address] [place] [phone] Performing Lab: [address] [phone] CREATININE 1.06 mg/dL 0.7-1.3 UREA NITROGEN 20.5 [...] 76.9 >60 May 11, 2024 02:19 PM [facility] PROTEIN ELECTROPHORESIS BLOOD SERUM Specimen Type: SERUM Comment: Reference Range: None Detected normalcy status - Abnormal normalcy status - Abnormal NOTE: THIS RESULT IS FLAGGED ABNORMAL Evaluation reveals a restricted band (M-spike) migrating in the gamma globulin region. If not already requested, Immunofixation should be considered. Test Performed by [facility], [facility], [address] [place] [address] Tristin Iyer M.D., Ph.D., Director of Laboratories , CLIA [id number] PREVIOUS SUGAR: IgG [place]ate Ordering Provider: HUNTER SIMMONS Report Released Date/Time: Jan 05, 2024 02:08 PM Reporting Lab: [facility] [address] [place] [phone] Performing Lab: [facility] [address] [facility] ALPHA-1 GLOBULIN(SO-PB-STL) 0.3 g/dL 0.2 -0.3 ALPHA-2 GLOBULIN(SO-PB-STL) 0.8 g/dL 0.5 -0.9 BETA 1 GLOBULIN(SO-PB-STL) 0.4 g/dL 0.4- 0.6 GAMMA GLOBULIN (SO-PB-STL) 2.0 g/dL H 0.8- 1.7 TOTAL PROTEIN (SO-PB-STL) 7.9 g/dL 6.1-8 .1 ALBUMIN(ELECTROPHORESIS 4.1 g/dL 3.8-4.8 BETA 2 GLOBULIN (SO-PB) 0.3 g/dL 0.2-0.5 INTERPRETATION (STL-PB) SEE NOTE ABNORMAL PROTEIN BAND 1 (SO-PB-STL) 1.2 g/dL H May 11, 2024 02:19 PM [facility] IGA (STL) PLASMA Specimen Type: PLASM A Comment: No hemolysis noted. Ordering Provider: HUNTER SIMMONS Report Released Date/Time: Jan 05, 2024 02:08 PM Reporting Lab: [facility] [address] [facility] [phone] Performing Lab: [facility] [address] [facility] [phone] IGA (STL) 117 mg/dL 63-484 May 11, 2024 02:19 PM [facility] IGM (STL) PLASMA Specimen Type: PLASM A Comment: No hemolysis noted. Ordering Provider: HUNTER SIMMONS Report Released Date/Time: Jan 05, 2024 02:08 PM Reporting Lab: [facility] [address] [facility] [phone] Performing Lab: [facility] [address] [facility] [phone] IGM (STL) 117 mg/dL 22-240 May 11, 2024 02:19 PM [facility] IGG (STL) PLASMA Specimen Type: PLASM A Comment: No hemolysis noted. Ordering Provider: HUNTER SIMMONS Report Released Date/Time: Jan 05, 2024 02:08 PM Reporting Lab: [facility] [address] [facility] [address] Performing Lab: [facility] [address] [place] [phone] IGG (STL) 2162 mg/dL H 540-1822 May 11, 2024 02:19 PM [facility] MAGNESIUM PLASMA Specimen Type: PLASM A Comment: No hemolysis noted. Ordering Provider: HUNTER SIMMONS Report Released Date/Time: Jan 05, 2024 02:09 PM Reporting Lab: [address] [phone] Performing Lab: [address] [phone] MAGNESIUM 1.9 mg/dL 1.6-2.6 May 11, 2024 02:19 PM [facility] KAPPA/LAMBDA FREE LC PANEL (STL-PB) SERUM Spe cimen Type: SERUM No comment entered. Ordering Provider: HUNTER SIMMONS Report Released Date/Time: Jan 05, 2024 02:08 PM Reporting Lab: [address] [phone] Performing Lab: [address] [phone] KAPPA FREE LC (STL) 92.4 mg/L H 2.4-20.7 LAMBDA FREE LC (STL) 25.6 mg/L 4.2-27.7 KAPPA/LAMBDA RATIO (STL) 3.61 H 0.22-1. 74 May 11, 2024 02:19 PM [facility] PHOSPHOROUS PLASMA Specimen Type: PLASM A Comment: No hemolysis noted. Ordering Provider: HUNTER SIMMONS Report Released Date/Time: Jan 05, 2024 02:09 PM Reporting Lab: [facility] [address] [facility] [address] Performing Lab: [facility] [address] [facility] [phone] PHOSPHOROUS 2.5 mg/dL 2.3-4.7 May 11, 2024 02:19 PM [facility] COMPREHENSIVE METABOLIC PANEL PLASMA Specimen Type: PLASMA Comment: No hemolysis noted. Ordering Provider: HUNTER SIMMONS Report Released Date/Time: Jan 05, 2024 02:08 PM Reporting Lab: [address] [phone] Performing Lab: [address] [phone] CREATININE 1.04 mg/dL 0.7-1.3 UREA NITROGEN 19.6 [...] >60 May 11, 2024 02:19 PM [facility] CBC BLOOD Specimen Type: BLOOD No comment entered. Ordering Provider: HUNTER SIMMONS Report Released Date/Time: Jan 05, 2024 02:08 PM Reporting Lab: [address] [phone] Performing Lab: [address] [phone] WBC 4.5 10*3/uL 3.6-11.2 RBC 4.26 10*6/uL [...] 0.84 10*3/uL 0.77-4.50 NEUT#-MDIFF 3.25 10*3/uL 2.10-8.00 Social History: Smoking Status (Most [...] Facil ity Jan 20, 2023 03:49 PM OR-TOBACCO QUIT 15 YRS OR MORE [facility] Tobacco Use History This section includes a history of the smoking, or tobacco-related health factors, that were collected on or before the date of the Encounter. The data comes from the OR facility where the Encounter took place. Date/Time Smoking Status/Tobacco Use Comment F acility Jan 20, 2023 03:49 PM VA-TOBACCO QUIT 15 YRS OR MORE [facility] Feb 06, 2021 04:28 PM VA-TOBACCO FORMER USER [facility] Feb 06, 2021 04:28 PM OR-TOBACCO QUIT 15 YRS OR MORE [facility] Radiology Reports: +/- 30 days of [...] the Encounter. The data comes from all OR treatment facilities. Date/Time Radiology Report Provider Source May 28, 2024 06:00 AM MRI ABDOMEN W/O&W CONT: ABRAHAM HAWK [id number] -1955 M Exm Date: MAY 28, 2024@06:00 Req Phys: CRYSTAL MASSEY Loc: [facility]HEP LIVER (Req'g Loc) Img Loc: OUTSIDE [facility] Service: Unknown (Case [id number] COMPLETE) MRI ABDOMEN W/O&W CONT (MRI Detailed) CPT:17484 Contrast Media : Non-ionic Iodinated Reason for Study: OUTSIDE STUDY Clinical History: Report Status: Electronically Filed Date Reported: JUN 11, 2024 Report: This study was performed outside the OR in another facility and images were uploaded into [employer]. The report has been scanned into [employer]. In order to upload images a case number was needed, therefore this is an administrative report. Impression: This study was performed outside the OR in another facility and images were uploaded into [employer]. The report has been scanned into [employer]. In order to upload images a case number was needed, therefore this is an administrative report VERIFIED BY: / *ELECTRONICALLY FILED* [facility] May 22, 2024 03:03 PM MRI ORBITS,FACE & NECK W/O&W CONT: ABRAHAM HAWK [id number] -1955 M Exm Date: MAY 22, 2024@15:03 Req Phys: HUNTER SIMMONS Loc: [facility]PHONE ONCOLOGY (Req'g Loc) Img Loc: [facility] Service: Unknown [address] [address] (Case [id number] COMPLETE) MRI ORBITS,FACE & NECK W/O&W CONT(MRI Detailed) CPT:69390 Contrast Media : unspecified contrast media Reason for Study: Restaging PRECAST MOLDER CANCER (Case [id number] COMPLETE) MRI 3D RENDERING W/O INDEPENDENT (MRI Detailed) CPT:86899 Clinical History: Responsible Attending: Hunter Friedman Attending Contact Number: [phone] Resident Contact Number: Does your patient have [...] 23, 2024 Date Verified: MAY 23, 2024 Stull Hewer E-Sig:/ES/EUGENIE ALAN MD Report: Multiplanar, multisequence MRI [...] Primary Interpreting Staff: EUGENIE ALAN MD, Radiologist (Stull Hewer) /EUGENIE LOWE [facility] Encounter Notes: All associated encounter notes This section contains the clinical notes associated to the Encounter. Date/Time Encounter Note(s) Provider Source Jun 07, 2024 01:32 PM SPEECH PATHOLOGY C ONSULT: LOCAL TITLE: SPEECH CONSULT STL STANDARD TITLE: SPEECH PATHOLOGY CONSULT DATE OF NOTE: JUN 07, 2024@13:32 ENTRY DATE: JUN 07, 2024@13:32:19 AUTHOR: MERCEDEZ PIZARRO COSIGNER: BAL CAREY URGENCY: STATUS: COMPLETED SPEECH PATHOLOGY THERAPY NOTE NAME: Abraham Hawk [id number] DATE/LENGTH: 06/07/24 DIAGNOSIS: trismus, h/o nasopharyngeal cancer, dysphagia PURPOSE OF VISIT: therapy/instruction with therabite to increase jaw range of motion SERVICES PROVIDED AND ITEMS DISCUSSED: Patient's jaw ROM was measured using the Therabite Range of Motion Scale, measurement was 40, which is an increase from 29 at his last visit. He reported improvement of pain in jaw. he is consuming boost and was encouraged to consume puree/soft items. Offered these items today, however patient denied. He was observed with intake of thin liquids. Oral clearance and pharyngeal swallow were within normal limits. He reported he has intermittently used his Therabite. He was encouraged to follow therapy regimen of 7-7-7 was provided (7 seconds, 7 stretches, 7x a day). He stated verbal understanding. ALTERATIONS TO TREATMENT PLAN: n/a GOAL 1: Patient will demonstrate ability to use Therabite independently to address jaw range of motion. -goal met PLAN: No further intervention indicated at this time. He is able to perform the jaw stretch program independently at home. /loly/ Mercedez Pizarro MS, CCC-JOB FOREMAN Speech Pathologist, Speech Language Pathology Signed: 06/07/2024 13:39 /loly/ BAL CAREY Radiation Oncologist Cosigned: 06/08/2024 10:56 MERCEDEZ PIZARRO [facility]
--- OUTSIDE RECORDS SUMMARY | 2024-10-08 17:15 | XMS_ITS ---
Author Name [facility] [place] Address [address] [place] [address] Care Team Providers Care Master Of Ceremonies Name Role Phone SUKHJINDER CHAHAL Primary Care [...] SUPPL EMENT Nov 25, 2021 PLAN G [id number] [phone] ELLEN HAWK VID PATIENT AARP MED SUPP MEDIGAP PLAN G MEDIC ARE SUPPL EMENT Nov 25, 2021 PLAN G [id number] [phone] ELLEN HAWK VID PATIENT MEDICARE (WNR) MEDICARE (M) PART B Sep 25, 2021 PART B [id number] ELLEN HAWK VID PATIENT MEDICARE (WNR) MEDICARE (M) PART A Aug 25, 2021 PART A [id number] [phone] ELLEN HAWK PATIENT Selected Encounter This section includes the information on record at [place] for the Encounter. Date/Time Encounter Type Encounter Description Reason Pro vider Source Jul 17, 2024 07:35 PM Transfuse Nonaut Platelets in Periph Vein, Perc HOSPITALIZATION ICD-10-CM I85.10 Secondary esophageal varices without bleeding [facility] [facility] IHAbdiel Encounter Template Text not used by [place] Assessments - Encounter Diagnoses This section includes the primary and secondary diagnoses documented for the Encounter. Date/Time Primary/Secondary Diagnosis Diagnosis Name Provider Source Jul 22, 2024 12:09 PM Diagnosis for Length of Stay Portal hypertension [facility] Jul 22, 2024 12:09 PM SECONDARY Acidosis, unspecified [facility] Jul 22, 2024 12:09 PM SECONDARY Acquired coagulation factor deficiency [facility] Jul 22, 2024 12:09 PM SECONDARY Acute kidney failure, unspecified [facility] Jul 22, 2024 12:09 PM SECONDARY Acute posthemorrhagic anemia [facility] Jul 22, 2024 12:09 PM SECONDARY Advrs effect of immune chkpt inhibtr/immunostim drugs, init [facility] Jul 22, 2024 12:09 PM SECONDARY Malignant neoplasm of oropharynx, unspecified [facility] Jul 22, 2024 12:09 PM SECONDARY Melena [facility] Jul 22, 2024 12:09 PM SECONDARY Other diseases of stomach and duodenum [facility] Jul 22, 2024 12:09 PM SECONDARY Personal history of malignant neoplasm of liver [facility] Jul 22, 2024 12:09 PM SECONDARY Prsnl hx of malig neoplm of site of lip, oral cav, & pharynx [facility] Jul 22, 2024 12:09 PM SECONDARY 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, face and neck [facility] Jul 22, 2024 12:09 PM SECONDARY Secondary esophageal varices without bleeding [facility] Jul 22, 2024 12:09 PM SECONDARY Secondary malignant neoplasm of unspecified lung [facility] Jul 22, 2024 12:09 PM SECONDARY SIRS of non-infectious origin w/o acute organ dysfunction [facility] Jul 22, 2024 12:09 PM SECONDARY Thrombocytopenia, unspecified [facility] Jul 22, 2024 12:09 PM SECONDARY Unspecified cirrhosis of liver [facility] Plan of Treatment: Future Appointments (+ 6 months) and Future Tests (+/- 45 days) The Plan of Treatment section includes future care activities for the patient from all [place] [facility]. This section includes future appointments and future [...] 25, 2024 01:00 PM AMBULATORY - MEDICINE [facility] Jul 26, 2024 10:00 AM AMBULATORY - MEDICINE [facility] Jul 27, 2024 03:14 PM AMBULATORY - MEDICINE [facility] Aug 01, 2024 10:15 AM AMBULATORY - NONE [facility] Aug 02, 2024 11:30 AM AMBULATORY - MEDICINE [facility] Aug 02, 2024 11:31 AM AMBULATORY - MEDICINE [facility] Aug 10, 2024 11:00 AM AMBULATORY - MEDICINE [facility] Aug 10, 2024 11:31 AM AMBULATORY - MEDICINE [facility] Aug 10, 2024 11:59 AM AMBULATORY - MEDICINE [facility] Aug 16, 2024 10:00 AM AMBULATORY - MEDICINE [facility] Aug 17, 2024 08:30 AM AMBULATORY - MEDICINE [facility] Aug 17, 2024 09:00 AM AMBULATORY - MEDICINE [facility] Aug 17, 2024 09:30 AM AMBULATORY - MEDICINE [facility] Aug 23, 2024 12:00 PM AMBULATORY - NONE [facility] Aug 31, 2024 02:00 PM AMBULATORY - MEDICINE [facility] Sep 07, 2024 11:00 AM AMBULATORY - MEDICINE [facility] Sep 07, 2024 01:00 PM AMBULATORY - MEDICINE [facility] Oct 15, 2024 03:00 PM AMBULATORY - SURGERY [facility] Gerry DELACRUZ [facility] Oct 19, 2024 02:00 PM AMBULATORY - NONE [facility] BRAD [facility] Active, Pending, and Scheduled Orders This section includes a listing of several types of active, pending, and scheduled orders, including clinic medications orders, diagnostic test orders, procedure orders and consult orders; where the start date of the order is 45 days before the date of the Encounter or 45 days after the date of theEncounter. The data comes from all [facility] facilities. Test Date/Time Test Type Test Details Facility Name Jul 17, 2024 12:00 AM Laboratory - Blood Bank Order RED BLOOD CELLS - LAB VBECS - NO SPECIMEN REQUIRED [facility] Jul 17, 2024 12:00 AM Laboratory - Blood Bank Order FRESH FROZEN PLASMA - LAB VBECS - NO SPECIMEN REQUIRED [facility] Jul 17, 2024 06:13 PM Laboratory - Blood Bank Order DIRECT ANTIGLOBULIN TEST - LAB BLOOD STAT [facility] Jul 17, 2024 06:13 PM Laboratory - Blood Bank Order TYPE & SCREEN - LAB BLOOD [facility] Jul 18, 2024 12:00 AM Laboratory - Blood Bank Order PLATELETS - LAB VBECS - NO SPECIMEN REQUIRED [facility] Aug 10, 2024 12:00 AM Laboratory - Blood Bank Order RED BLOOD CELLS - LAB VBECS - NO SPECIMEN REQUIRED [facility] Aug 10, 2024 02:00 PM Laboratory - Blood Bank Order TYPE & SCREEN - LAB BLOOD [facility] Aug 10, 2024 05:43 PM Laboratory - Chemistry Order LIPASE GREEN LI/HEP BLD/PLAS PLASMA STAT I ONCE [facility] Aug 10, 2024 05:44 PM Laboratory - Microbiology Order BLOOD CULT (SET 2) B D BLD. BOTTLE (SET 2) BLOOD JOANN I NOW [facility] Aug 11, 2024 02:00 AM Laboratory - Chemistry Order CBC BLOOD [facility] Aug 14, 2024 02:00 AM Laboratory - Chemistry Order CBC BLOOD WC [facility] Aug 15, 2024 02:00 AM Laboratory - Chemistry Order CBC BLOOD WC [facility] Aug 16, 2024 12:00 AM Laboratory - Chemistry Order CBC BLOOD SP [facility] Aug 16, 2024 08:00 PM Laboratory - Chemistry Order CBC BLOOD LC [facility] Aug 17, 2024 08:00 PM Laboratory - Chemistry Order CBC BLOOD LC [facility] Lab Results: +/- 30 days of the encounter This section includes the Chemistry and Hematology Lab Results on record with [place] for the patient. Radiology Reports and Pathology Reports are provided separately, in subsequent sections. Lab Results This section contains the Chemistry/Hematology Results that were resulted 30 days before or 30 daysafter the date of the Encounter. Date/Time Source Result Type Result - Unit Interpretation Reference Range Specimen Type Comment Aug 15, 2024 07:20 AM [facility] CBC BLOOD Specimen Type: BLOOD Comment: No clots detected in specimen. Ordering Provider: CASH CLOUD Report Released Date/Time: Aug 12, 2024 01:47 PM Reporting Lab: [address] [address] Performing Lab: [address] [address] WBC 4.9 10*3/uL 3.6-11.2 RBC 2.93 10*6/uL [...] 10*3/uL 2.10-8.00 Aug 15, 2024 04:54 AM [facility] GLUCOSE,BLOOD-poct (STL) BLOOD Specimen Type: BLOOD Comment: Test Performed by: [id number] Meter #: [id number] Ordering Provider: DEIRDRE WILD Report Released Date/Time: Aug 15, 2024 05:21 AM Reporting Lab: [place] [address] Performing Lab: [place] [address] GLUCOSE,BLOOD-poct (STL) 112 mg/dL H 72-99 Aug 14, 2024 08:30 PM [facility] CRP PLASMA Specimen Type: PLASM A No comment entered. Ordering Provider: CASH CLOUD Report Released Date/Time: Aug 12, 2024 10:14 AM Reporting Lab: [place] [phone] Performing Lab: [place] [phone] CRP 0.7 mg/dL H 0-0.5 Aug 14, 2024 08:30 PM [facility] CBC BLOOD Specimen Type: BLOOD No comment entered. Ordering Provider: GILSON OG Report Released Date/Time: Aug 10, 2024 04:01 PM Reporting Lab: [place] [address] Performing Lab: [place] [address] WBC 4.6 10*3/uL 3.6-11.2 RBC 2.83 10*6/uL [...] 10*3/uL 2.10-8.00 Aug 14, 2024 07:54 PM [facility] GLUCOSE,BLOOD-poct (STL) BLOOD Specimen Type: BLOOD Comment: Test Performed by: [id number] Meter #: [id number] Ordering Provider: DEIRDRE WILD Report Released Date/Time: Aug 14, 2024 08:15 PM Reporting Lab: [address] [address] Performing Lab: [address] [address] GLUCOSE,BLOOD-poct (STL) 112 mg/dL H 72-99 Aug 14, 2024 04:10 PM [facility] GLUCOSE,BLOOD-poct (STL) BLOOD Specimen Type: BLOOD Comment: Test Performed by: [id number] Meter #: [id number] Ordering Provider: DEIRDRE WILD Report Released Date/Time: Aug 14, 2024 04:43 PM Reporting Lab: [address] [address] Performing Lab: [facility] [address] [place] [phone] GLUCOSE,BLOOD-poct (STL) 115 mg/dL H 72-99 Aug 14, 2024 02:05 PM [facility] COMPREHENSIVE METABOLIC PANEL PLASMA Specimen Type: PLASMA Comment: No hemolysis noted. Ordering Provider: GILSON OG Report Released Date/Time: Aug 14, 2024 06:56 AM Reporting Lab: [address] [address] Performing Lab: [address] [address] CREATININE 0.75 mg/dL 0.7-1.3 UREA NITROGEN 9.3 [...] Aug 14, 2024 02:05 PM [facility] CBC BLOOD Specimen Type: BLOOD Comment: No platelet clots or clumping detected. Ordering Provider: GILSON OG Report Released Date/Time: Aug 10, 2024 04:01 PM Reporting Lab: [address] [address] Performing Lab: [address] [address] WBC 4.6 10*3/uL 3.6-11.2 RBC 3.06 10*6/uL [...] 2.10-8.00 Aug 14, 2024 10:12 AM [facility] GLUCOSE,BLOOD-poct ([facility]) BLOOD Specimen Type: BLOOD Comment: Test Performed by: [id number] Meter #: [id number] Ordering Provider: DEIRDRE WILD Report Released Date/Time: Aug 14, 2024 10:13 AM Reporting Lab: [address] [address] Performing Lab: [address] [address] GLUCOSE,BLOOD-poct ([facility]) 112 mg/dL H 72-99 Aug 14, 2024 09:20 AM [facility] PT/INR NEW (STL-MA) PLASMA Specimen Type: PLAS MA No comment entered. Ordering Provider: GILSON OG Report Released Date/Time: Aug 14, 2024 09:06 AM Reporting Lab: [facility] [address] [facility] [address] Performing Lab: [facility] [address] [place] [address] PROTIME 13.6 s H 9.4-12.5 INR VALUE 1.2 {INR} Aug 14, 2024 06:51 AM [facility] CBC BLOOD Specimen Type: BLOOD No comment entered. Ordering Provider: CASH CLOUD Report Released Date/Time: Aug 12, 2024 01:47 PM Reporting Lab: [facility] [address] [facility] [address] Performing Lab: [address] [address] WBC 3.8 10*3/uL 3.6-11.2 RBC 2.56 10*6/uL [...] 10*3/uL 2.10-8.00 Aug 14, 2024 06:03 AM [facility] GLUCOSE,BLOOD-poct (STL) BLOOD Specimen Type: BLOOD Comment: Test Performed by: [id number] Meter #: [id number] Ordering Provider: DEIRDRE WILD Report Released Date/Time: Aug 14, 2024 06:07 AM Reporting Lab: [place] [address] [facility] [address] Performing Lab: [place] [address] [facility] [address] GLUCOSE,BLOOD-poct (STL) 114 mg/dL H 72-99 Aug 13, 2024 09:11 PM [facility] GLUCOSE,BLOOD-poct (STL) BLOOD Specimen Type: BLOOD Comment: Test Performed by: [id number] Meter #: [id number] Ordering Provider: DEIRDRE WILD Report Released Date/Time: Aug 13, 2024 09:40 PM Reporting Lab: [place] [address] [facility] [address] Performing Lab: [address] [address] GLUCOSE,BLOOD-poct (STL) 160 mg/dL H 72-99 Aug 13, 2024 07:10 PM [facility] COMPREHENSIVE METABOLIC PANEL PLASMA Specimen Type: PLASMA Comment: No hemolysis noted. Ordering Provider: GILSON OG Report Released Date/Time: Aug 14, 2024 07:03 AM Reporting Lab: [place] [address] [facility] [address] Performing Lab: [address] [address] CREATININE 0.75 mg/dL 0.7-1.3 UREA NITROGEN 10.3 [...] Aug 13, 2024 07:10 PM [facility] CRP PLASMA Specimen Type: PLASM A No comment entered. Ordering Provider: CASH CLOUD Report Released Date/Time: Aug 12, 2024 10:14 AM Reporting Lab: [address] [address] Performing Lab: [address] [address] CRP 0.7 mg/dL H 0-0.5 Aug 13, 2024 07:10 PM [facility] CBC BLOOD Specimen Type: BLOOD No comment entered. Ordering Provider: GILSON OG Report Released Date/Time: Aug 10, 2024 04:01 PM Reporting Lab: [address] [address] Performing Lab: [address] [address] WBC 5.3 10*3/uL 3.6-11.2 RBC 2.67 10*6/uL [...] 10*3/uL 2.10-8.00 Aug 13, 2024 04:35 PM [facility] GLUCOSE,BLOOD-poct (STL) BLOOD Specimen Type: BLOOD Comment: Test Performed by: [id number] Meter #: [id number] Ordering Provider: DEIRDRE WILD Report Released Date/Time: Aug 13, 2024 05:18 PM Reporting Lab: [address] [address] Performing Lab: [address] [address] GLUCOSE,BLOOD-poct (STL) 113 mg/dL H 72-99 Aug 13, 2024 02:36 PM [facility] CBC BLOOD Specimen Type: BLOOD No comment entered. Ordering Provider: GILSON OG Report Released Date/Time: Aug 10, 2024 04:01 PM Reporting Lab: [address] [address] Performing Lab: [address] [address] WBC 5.8 10*3/uL 3.6-11.2 RBC 2.77 10*6/uL [...] 10*3/uL 2.10-8.00 Aug 13, 2024 11:37 AM [facility] GLUCOSE,BLOOD-poct (STL) BLOOD Specimen Type: BLOOD Comment: Test Performed by: [id number] Meter #: [id number] Ordering Provider: DEIRDRE WILD Report Released Date/Time: Aug 13, 2024 11:38 AM Reporting Lab: [address] [address] Performing Lab: [address] [address] GLUCOSE,BLOOD-poct (STL) 131 mg/dL H 72-99 Aug 13, 2024 08:06 AM [facility] CBC BLOOD Specimen Type: BLOOD Comment: no clot Ordering Provider: CASH CLOUD Report Released Date/Time: Aug 12, 2024 01:47 PM Reporting Lab: [address] [address] Performing Lab: [address] [address] WBC 3.0 10*3/uL L 3.6-11.2 RBC 2.61 [...] 10*3/uL 2.10-8.00 Aug 13, 2024 04:45 AM [facility] GLUCOSE,BLOOD-poct (STL) BLOOD Specimen Type: BLOOD Comment: Test Performed by: [id number] Meter #: [id number] Ordering Provider: DEIRDRE WILD Report Released Date/Time: Aug 13, 2024 06:18 AM Reporting Lab: [address] [address] Performing Lab: [address] [address] GLUCOSE,BLOOD-poct (STL) 139 mg/dL H 72-99 Aug 12, 2024 10:10 PM [facility] GLUCOSE,BLOOD-poct (STL) BLOOD Specimen Type : BLOOD Comment: Test Performed by: [id number] Meter #: [id number] Ordering Provider: DEIRDRE WILD Report Released Date/Time: Aug 12, 2024 10:50 PM Reporting Lab: [address] [address] Performing Lab: [address] [address] GLUCOSE,BLOOD-poct (STL) 105 mg/dL H 72-99 Aug 12, 2024 08:48 PM [facility] CBC BLOOD Specimen Type: BLOOD Comment: SEE PREVIOUS DIFFERENTIAL ON 08/12/24 @ 1807 Ordering Provider: GILSON OG Report Released Date/Time: Aug 10, 2024 04:01 PM Reporting Lab: [facility] [address] [facility] [address] Performing Lab: [facility] [address] [place] [address] WBC 5.0 10*3/uL 3.6-11.2 RBC 2.78 10*6/uL [...] Aug 12, 2024 08:48 PM [facility] CRP PLASMA Specimen Type: PLASM A No comment entered. Ordering Provider: CASH CLOUD Report Released Date/Time: Aug 12, 2024 10:14 AM Reporting Lab: [facility] [address] [facility] [address] Performing Lab: [address] [address] CRP 0.6 mg/dL H 0-0.5 Aug 12, 2024 04:51 PM [facility] GLUCOSE,BLOOD-poct (STL) BLOOD Specimen Type: BLOOD Comment: Test Performed by: [id number] Meter #: [id number] Ordering Provider: DEIRDRE WILD Report Released Date/Time: Aug 12, 2024 05:07 PM Reporting Lab: [address] [address] Performing Lab: [address] [address] GLUCOSE,BLOOD-poct (L) 135 mg/dL H 72-99 Aug 12, 2024 02:33 PM [facility] CBC BLOOD Specimen Type: BLOOD No comment entered. Ordering Provider: GILSON OG Report Released Date/Time: Aug 10, 2024 04:01 PM Reporting Lab: [address] [address] Performing Lab: [address] [address] WBC 4.0 10*3/uL 3.6-11.2 RBC 2.56 10*6/uL [...] 10*3/uL 2.10-8.00 Aug 12, 2024 11:51 AM [facility] GLUCOSE,BLOOD-poct (STL) BLOOD Specimen Type: BLOOD Comment: Test Performed by: [id number] Meter #: [id number] Ordering Provider: DEIRDRE WILD Report Released Date/Time: Aug 12, 2024 12:26 PM Reporting Lab: [address] [address] Performing Lab: [address] [address] GLUCOSE,BLOOD-poct (L) 139 mg/dL H 72-99 Aug 12, 2024 07:35 AM [facility] CBC BLOOD Specimen Type: BLOOD Comment: prev diff 08/11/24. Ordering Provider: GILSON OG Report Released Date/Time: Aug 10, 2024 04:01 PM Reporting Lab: [address] [address] Performing Lab: [address] [address] WBC 3.0 10*3/uL L 3.6-11.2 RBC 2.54 [...] 0.00-0. 20 Aug 12, 2024 05:49 AM [facility] GLUCOSE,BLOOD-poct (STL) BLOOD Specimen Type: BLOOD Comment: Test Performed by: [id number] Meter #: [id number] Ordering Provider: DEIRDRE WILD Report Released Date/Time: Aug 12, 2024 05:50 AM Reporting Lab: [address] [address] Performing Lab: [address] [address] GLUCOSE,BLOOD-poct (STL) 112 mg/dL H 72-99 Aug 12, 2024 01:45 AM [facility] CBC BLOOD Specimen Type: BLOOD Comment: SEE PREVIOUS DIFFERENTIAL ON 08/12/24 @ [address] [facility] Ordering Provider: GILSON OG Report Released Date/Time: Aug 10, 2024 04:01 PM Reporting Lab: [address] [address] Performing Lab: [address] [address] WBC 2.6 10*3/uL L 3.6-11.2 RBC 2.42 [...] 1.0-7.0 Aug 11, 2024 09:25 PM [facility] CBC BLOOD Specimen Type: BLOOD No comment entered. Ordering Provider: GILSON OG Report Released Date/Time: Aug 10, 2024 04:01 PM Reporting Lab: [address] [address] Performing Lab: [address] [address] WBC 3.6 10*3/uL 3.6-11.2 RBC 2.54 10*6/uL [...] 2.10-8.00 Aug 11, 2024 09:17 PM [facility] GLUCOSE,BLOOD-poct (STL) BLOOD Specimen Type: BLOOD Comment: Test Performed by: [id number] Meter #: [id number] Ordering Provider: DEIRDRE WILD Report Released Date/Time: Aug 11, 2024 09:21 PM Reporting Lab: [facility] [address] [place] [address] Performing Lab: [address] [address] GLUCOSE,BLOOD-poct (STL) 167 mg/dL H 72-99 Aug 11, 2024 04:42 PM [facility] CBC BLOOD Specimen Type: BLOOD No comment entered. Ordering Provider: YVONNE HARRISON Report Released Date/Time: Aug 11, 2024 04:41 PM Reporting Lab: [address] [address] Performing Lab: [address] [address] WBC 4.0 10*3/uL 3.6-11.2 RBC 2.74 10*6/uL [...] 10*3/uL 2.10-8.00 Aug 11, 2024 04:30 PM [facility] GLUCOSE,BLOOD-poct (STL) BLOOD Specimen Type: BLOOD Comment: Test Performed by: [id number] Meter #: [id number] Ordering Provider: DEIRDRE WILD Report Released Date/Time: Aug 11, 2024 06:06 PM Reporting Lab: [place] [address] [facility] [address] Performing Lab: [address] [address] GLUCOSE,BLOOD-poct (STL) 95 mg/dL 72-99 Aug 11, 2024 11:08 AM [facility] GLUCOSE,BLOOD-poct (STL) BLOOD Specimen Type: BLOOD Comment: Test Performed by: [id number] Meter #: [id number] Ordering Provider: DEIRDRE WILD Report Released Date/Time: Aug 11, 2024 11:10 AM Reporting Lab: [address] [address] Performing Lab: [place] [address] [facility] [address] GLUCOSE,BLOOD-poct (STL) 117 mg/dL H 72-99 Aug 11, 2024 06:00 AM [facility] PT/INR NEW (L-MA) PLASMA Specimen Type: PLAS MA No comment entered. Ordering Provider: GILSON OG Report Released Date/Time: Aug 10, 2024 06:20 PM Reporting Lab: [address] [address] Performing Lab: [address] [address] PROTIME 15.5 s H 9.4-12.5 INR VALUE 1.4 {INR} Aug 11, 2024 06:00 AM [facility] IRON/TIBC PROFILE SERUM Specimen Type: SERUM No comment entered. Ordering Provider: GILSON OG Report Released Date/Time: Aug 10, 2024 04:02 PM Reporting Lab: [address] [place] [address] Performing Lab: [address] [address] TIBC 263 ug/dL 250-450 TRANSFERRIN 210 mg/dL 163-344 IRON SATURATION 8 L 20-50 IRON 21 ug/dL L 65-175 Aug 11, 2024 06:00 AM [facility] APTT PLASMA Specimen Type: PLAS MA No comment entered. Ordering Provider: GILSON OG Report Released Date/Time: Aug 10, 2024 06:20 PM Reporting Lab: [address] [address] Performing Lab: [address] [address] APTT 25.5 s L 26.7-39.9 Aug 11, 2024 06:00 AM [facility] HEPATIC FUNTION PANEL (STL) PLASMA Specimen Ty pe: PLASMA No comment entered. Ordering Provider: GILSON OG Report Released Date/Time: Aug 10, 2024 04:02 PM Reporting Lab: [address] [address] Performing Lab: [address] [address] PROTEIN 5.4 g/dL L 6-8.6 ALBUMIN 2.6 g/dL L 3.4-5 TOTAL BILIRUBIN 0.8 mg/dL 0.2-1.2 ALKALINE PHOSPHATASE 72 U/L 40-150 AST/SGOT 28 U/L 5-34 ALT/SGPT 10 U/L 8-40 CONJ. BILIRUBIN 0.4 mg/dL 0-0.5 Aug 11, 2024 06:00 AM [facility] CBC BLOOD Specimen Type: BLOOD No comment entered. Ordering Provider: GILSON OG Report Released Date/Time: Aug 10, 2024 04:01 PM Reporting Lab: [address] [address] Performing Lab: [address] [address] WBC 2.4 10*3/uL L 3.6-11.2 RBC 2.42 [...] L 2.10-8.00 Aug 10, 2024 09:00 PM [facility] BASIC METABOLIC PANEL PLASMA Specimen Type: PL ASMA Comment: No hemolysis noted. Ordering Provider: GILSON OG Report Released Date/Time: Aug 10, 2024 04:01 PM Reporting Lab: [facility] [address] [facility] [address] Performing Lab: [facility] [address] [facility] [address] CREATININE 0.84 mg/dL 0.7-1.3 UREA NITROGEN 16.8 mg/dL 9.0-25.0 GLUCOSE 104 mg/dL H 72-99 SODIUM 133 meq/L L 136-145 POTASSIUM 3.5 meq/L 3.5-5 CHLORIDE 103 meq/L 98-107 CARBON DIOXIDE 23 meq/L 22-31 CALCIUM 8.4 mg/dL 8.4-10.4 EGFR (CKD-EPI 2020) 95.6 >60 Aug 10, 2024 09:00 PM [facility] CBC BLOOD Specimen Type: BLOOD No comment entered. Ordering Provider: GILSON OG Report Released Date/Time: Aug 10, 2024 04:01 PM Reporting Lab: [facility] [address] [facility] [address] Performing Lab: [address] [address] WBC 4.3 10*3/uL 3.6-11.2 RBC 2.22 10*6/uL [...] 10*3/uL 2.10-8.00 Aug 10, 2024 06:30 PM [facility] MRSA SURVL NARES DNA NARES Specimen [...] Aug 10, 2024 04:01 PM Reporting Lab: [address] [phone] Performing Lab: [address] [address] MRSA SURVL NARES DNA Negative Negative Aug 10, 2024 06:02 PM [facility] GLUCOSE,BLOOD-poct (STL) BLOOD Specimen Type: BLOOD Comment: Test Performed by: [id number] Meter #: [id number] Ordering Provider: YASIR SANZ MD Report Released Date/Time: Aug 10, 2024 06:04 PM Reporting Lab: [place] [address] [facility] [phone] Performing Lab: [address] [address] GLUCOSE,BLOOD-poct (STL) 94 mg/dL 72-99 Aug 10, 2024 02:12 PM [facility] APTT PLASMA Specimen Type: PLASM A No comment entered. Ordering Provider: YASIR SANZ MD Report Released Date/Time: Aug 10, 2024 02:00 PM Reporting Lab: [place] [address] [facility] [phone] Performing Lab: [address] [phone] APTT 20.1 s L 26.7-39.9 Aug 10, 2024 02:12 PM [facility] PT/INR NEW (L-MA) PLASMA Specimen Type: PLAS MA No comment entered. Ordering Provider: YASIR SANZ MD Report Released Date/Time: Aug 10, 2024 02:00 PM Reporting Lab: [address] [address] Performing Lab: [facility] [address] [facility] [address] PROTIME 13.8 s H 9.4-12.5 INR VALUE 1.2 {INR} Aug 10, 2024 11:30 AM [facility] TSH W/ REFLEX FT4 (STL) PLASMA Specimen Type: PLASMA No comment entered. Ordering Provider: TONY FELICIANO Report Released Date/Time: Aug 02, 2024 12:33 PM Reporting Lab: [place] [address] [facility] [address] Performing Lab: [address] [address] TSH 3.991 u[IU]/mL 0.47-5 Aug 10, 2024 11:30 AM [facility] COMPREHENSIVE METABOLIC PANEL PLASMA Specimen Type: PLASMA Comment: No hemolysis noted. Ordering Provider: TONY FELICIANO Report Released Date/Time: Aug 02, 2024 12:33 PM Reporting Lab: [place] [address] [facility] [address] Performing Lab: [address] [address] CREATININE 0.82 mg/dL 0.7-1.3 UREA NITROGEN 21.7 [...] Aug 10, 2024 11:30 AM [facility] CBC BLOOD Specimen Type: BLOOD No comment entered. Ordering Provider: TONY FELICIANO Report Released Date/Time: Aug 02, 2024 12:33 PM Reporting Lab: [facility] [address] [facility] [address] Performing Lab: [facility] [address] [facility] [address] WBC 7.4 10*3/uL 3.6-11.2 RBC 2.81 10*6/uL [...] 20 Aug 02, 2024 11:53 AM [facility] PROTEIN ELECTROPHORESIS BLOOD SERUM Specimen Type: SERUM Comment: Reference Range: None Detected NOTE: THIS RESULT IS FLAGGED ABNORMAL Evaluation reveals a restricted band (M-spike) migrating in the gamma globulin region. If not already requested, Immunofixation should be considered. Test Performed by [facility], [address] [place] [address] Tristin Iyer M.D., Ph.D., Director of Laboratories , CLIA [id number] PREVIOUS SUGAR: IgG [place] Ordering Provider: TONY FELICIANO Report Released Date/Time: Jul 13, 2024 01:49 PM Reporting Lab: [facility] [address] [facility] [address] Performing Lab: [facility] [address] [facility] ALPHA-1 GLOBULIN(SO-PB-STL) 0.4 g/dL H 0.2 -0.3 [...] g/dL H Aug 02, 2024 11:53 AM [facility] IGA (STL) PLASMA Specimen Type: PLASM A Comment: No hemolysis noted. Ordering Provider: TONY FELICIANO Report Released Date/Time: Jul 13, 2024 01:49 PM Reporting Lab: [facility] [address] [facility] [address] Performing Lab: [facility] [address] [place] [address] IGA (STL) 113 mg/dL 63-484 Aug 02, 2024 11:53 AM [facility] IGG (STL) PLASMA Specimen Type: PLASM A Comment: No hemolysis noted. Ordering Provider: TONY FELICIANO Report Released Date/Time: Jul 13, 2024 01:49 PM Reporting Lab: [facility] [address] [place] [address] Performing Lab: [address] [address] IGG (STL) 1898 mg/dL H 540-1822 Aug 02, 2024 11:53 AM [facility] IGM (STL) PLASMA Specimen Type: PLASM A Comment: No hemolysis noted. Ordering Provider: TONY FELICIANO Report Released Date/Time: Jul 13, 2024 01:49 PM Reporting Lab: [place] [address] [facility] [address] Performing Lab: [place] [address] [facility] [address] IGM (STL) 104 mg/dL 22-240 Aug 02, 2024 11:53 AM [facility] TSH W/ REFLEX FT4 (STL) PLASMA Specimen Type: PLASMA No comment entered. Ordering Provider: TONY FELICIANO Report Released Date/Time: Jul 13, 2024 01:49 PM Reporting Lab: [place] [address] [facility] [address] Performing Lab: [place] [address] [place] [phone] TSH 2.182 u[IU]/mL 0.47-5 Aug 02, 2024 11:53 AM [facility] KAPPA/LAMBDA FREE LC PANEL (STL-PB) SERUM Spe cimen Type: SERUM No comment entered. Ordering Provider: TONY FELICIANO Report Released Date/Time: Jul 13, 2024 01:49 PM Reporting Lab: [address] [address] Performing Lab: [address] [address] KAPPA FREE LC (STL) 102.7 mg/L H 2.4-20.7 LAMBDA FREE LC (STL) 32.2 mg/L H 4.2-27.7 KAPPA/LAMBDA RATIO (STL) 3.19 H 0.22-1. 74 Aug 02, 2024 11:53 AM [facility] COMPREHENSIVE METABOLIC PANEL PLASMA Specimen Type: PLASMA Comment: No hemolysis noted. Ordering Provider: TONY FELICIANO Report Released Date/Time: Jul 13, 2024 01:49 PM Reporting Lab: [address] [address] Performing Lab: [address] [address] CREATININE 0.82 mg/dL 0.7-1.3 UREA NITROGEN 12.2 [...] Aug 02, 2024 11:53 AM [facility] CBC BLOOD Specimen Type: BLOOD Comment: No Clots in specimen Ordering Provider: TONY FELICIANO Report Released Date/Time: Jul 13, 2024 01:49 PM Reporting Lab: [address] [address] Performing Lab: [address] [address] WBC 2.2 10*3/uL L 3.6-11.2 RBC 3.44 [...] L 2.10-8.00 Aug 01, 2024 10:10 AM [facility] GLUCOSE,BLOOD-poct (STL) BLOOD Specimen Type: BLOOD Comment: Test Performed by: [id number] Meter #: [id number] Ordering Provider: SUKHJINDER CHAHAL Report Released Date/Time: Aug 01, 2024 10:17 AM Reporting Lab: [address] [address] Performing Lab: [address] [address] GLUCOSE,BLOOD-poct (STL) 101 mg/dL H 72-99 Jul 27, 2024 01:54 PM [facility] BRAIN NATRIURETIC PEPTIDE PLASMA Specimen Type : PLASMA No comment entered. Ordering Provider: ELIZABETH COATES Report Released Date/Time: Jul 27, 2024 03:39 PM Reporting Lab: [address] [address] Performing Lab: [address] [address] BRAIN NATRIURETIC PEPTIDE 257.2 pg/mL H 0- 100 Jul 27, 2024 01:54 PM [facility] TROPONIN I PLASMA Specimen Type: PLASM A Comment: No hemolysis noted. Ordering Provider: ELIZABETH COATES Report Released Date/Time: Jul 27, 2024 03:39 PM Reporting Lab: [address] [address] Performing Lab: [address] [place] [address] TROPONIN I 0.011 ng/mL 0-0.033 Jul 27, 2024 01:54 PM [facility] COMPREHENSIVE METABOLIC PANEL PLASMA Specimen Type: PLASMA Comment: No hemolysis noted. Ordering Provider: ELIZABETH COATES Report Released Date/Time: Jul 27, 2024 03:39 PM Reporting Lab: [address] [address] Performing Lab: [address] [address] CREATININE 0.70 mg/dL 0.7-1.3 UREA NITROGEN 7.4 [...] Jul 27, 2024 01:54 PM [facility] CBC BLOOD Specimen Type: BLOOD No comment entered. Ordering Provider: ELIZABETH COATES Report Released Date/Time: Jul 27, 2024 03:39 PM Reporting Lab: [address] [address] Performing Lab: [address] [address] WBC 3.2 10*3/uL L 3.6-11.2 RBC 3.12 [...] 21, 2024 02:00 PM [facility] IRON/TIBC PROFILE SERUM Specimen Type: SERUM No comment entered. Ordering Provider: JORJE DENSON Report Released Date/Time: Jul 21, 2024 12:54 PM Reporting Lab: [address] [address] Performing Lab: [address] [address] TIBC 243 ug/dL L 250-450 TRANSFERRIN 194 mg/dL 163-344 IRON SATURATION 20 20-50 IRON 49 ug/dL L 65-175 Jul 21, 2024 02:00 PM [facility] B12 SERUM Specimen Type: SERUM No comment entered. Ordering Provider: JOJRE DENSON Report Released Date/Time: Jul 21, 2024 12:54 PM Reporting Lab: [address] [address] Performing Lab: [address] [address] B12 1584 pg/mL H 213-816 Jul 21, 2024 02:00 PM [facility] FOLATE (STL-MA) SERUM Specimen Type: SERUM No comment entered. Ordering Provider: JORJE DENSON Report Released Date/Time: Jul 21, 2024 12:54 PM Reporting Lab: [address] [address] Performing Lab: [address] [address] FOLATE (STL-MA) 9.1 ng/mL 7-Jul 21, 2024 02:00 PM [facility] CBC BLOOD Specimen Type: BLOOD Comment: Manual differential performed 07/20/2024 No clots Ordering Provider: JORJE DENSON Report Released Date/Time: Jul 21, 2024 12:54 PM Reporting Lab: [address] [address] Performing Lab: [address] [address] WBC 5.6 10*3/uL 3.6-11.2 RBC 2.87 10*6/uL [...] H 1.0-7.0 Jul 20, 2024 08:55 PM [facility] PT/INR NEW (STL-MA) PLASMA Specimen Type: PLAS MA No comment entered. Ordering Provider: AURA ZACARIAS Report Released Date/Time: Jul 18, 2024 01:30 PM Reporting Lab: [address] [address] Performing Lab: [address] [address] PROTIME 12.8 s H 9.4-12.5 INR VALUE 1.1 {INR} Jul 20, 2024 08:55 PM [facility] BASIC METABOLIC PANEL PLASMA Specimen Type: PL ASMA Comment: No hemolysis noted. Ordering Provider: AURA ZACARIAS Report Released Date/Time: Jul 18, 2024 01:30 PM Reporting Lab: [address] [address] Performing Lab: [address] [address] CREATININE 0.74 mg/dL 0.7-1.3 UREA NITROGEN 15.1 mg/dL 9.0-25.0 GLUCOSE 121 mg/dL H 72-99 SODIUM 130 meq/L L 136-145 POTASSIUM 3.7 meq/L 3.5-5 CHLORIDE 100 meq/L 98-107 CARBON DIOXIDE 20 meq/L L 22-31 CALCIUM 8.5 mg/dL 8.4-10.4 EGFR (CKD-EPI 2020) 99.3 >60 Jul 20, 2024 08:55 PM [facility] CBC BLOOD Specimen Type: BLOOD No comment entered. Ordering Provider: AURA ZACARIAS Report Released Date/Time: Jul 18, 2024 01:30 PM Reporting Lab: [address] [address] Performing Lab: [address] [address] WBC 5.1 10*3/uL 3.6-11.2 RBC 2.90 10*6/uL [...] Jul 20, 2024 01:13 PM [facility] CBC BLOOD Specimen Type: BLOOD No comment entered. Ordering Provider: AURA ZACARIAS Report Released Date/Time: Jul 18, 2024 01:30 PM Reporting Lab: [address] [address] Performing Lab: [address] [address] WBC 5.6 10*3/uL 3.6-11.2 RBC 3.11 10*6/uL [...] 10*3/uL 2.10-8.00 Jul 19, 2024 06:42 AM [facility] PT/INR NEW (STL-MA) PLASMA Specimen Type: PLAS MA No comment entered. Ordering Provider: AURA ZACARIAS Report Released Date/Time: Jul 18, 2024 01:30 PM Reporting Lab: [address] [address] Performing Lab: [address] [address] PROTIME 16.4 s H 9.4-12.5 INR VALUE 1.5 {INR} Jul 19, 2024 06:42 AM [facility] BASIC METABOLIC PANEL PLASMA Specimen Type: PL ASMA Comment: No hemolysis noted. Ordering Provider: AURA ZACARIAS Report Released Date/Time: Jul 18, 2024 01:30 PM Reporting Lab: [address] [address] Performing Lab: [address] [address] CREATININE 0.94 mg/dL 0.7-1.3 UREA NITROGEN 23.8 mg/dL 9.0-25.0 GLUCOSE 87 mg/dL 72-99 SODIUM 129 meq/L L 136-145 POTASSIUM 3.4 meq/L L 3.5-5 CHLORIDE 102 meq/L 98-107 CARBON DIOXIDE 20 meq/L L 22-31 CALCIUM 8.1 mg/dL L 8.4-10.4 EGFR (CKD-EPI 2020) 88.9 >60 Jul 19, 2024 06:42 AM [facility] CBC BLOOD Specimen Type: BLOOD No comment entered. Ordering Provider: AURA ZACARIAS Report Released Date/Time: Jul 18, 2024 01:30 PM Reporting Lab: [facility] [address] [place] [address] Performing Lab: [address] [address] WBC 5.1 10*3/uL 3.6-11.2 RBC 2.45 10*6/uL [...] Jul 18, 2024 08:51 PM [facility] CBC BLOOD Specimen Type: BLOOD No comment entered. Ordering Provider: AURA ZACARIAS Report Released Date/Time: Jul 18, 2024 01:30 PM Reporting Lab: [address] [address] Performing Lab: [address] [address] WBC 6.2 10*3/uL 3.6-11.2 RBC 2.44 10*6/uL [...] Jul 18, 2024 04:19 PM [facility] CBC BLOOD Specimen Type: BLOOD No comment entered. Ordering Provider: AURA ZACARIAS Report Released Date/Time: Jul 18, 2024 01:30 PM Reporting Lab: [facility] [address] [place] [address] Performing Lab: [address] [address] WBC 6.1 10*3/uL 3.6-11.2 RBC 2.57 10*6/uL [...] 10*3/uL 2.10-8.00 Jul 18, 2024 06:32 AM [facility] LACTIC ACID (STL-PB) PLASMA Specimen Type: NEIL SMA No comment entered. Ordering Provider: CAMDEN GILES Report Released Date/Time: Jul 17, 2024 07:38 PM Reporting Lab: [address] [address] Performing Lab: [address] [address] LACTIC ACID (L-PB) 1.3 mmol/L 0.5-2.0 Jul 18, 2024 06:32 AM [facility] PT/INR NEW (L-MA) PLASMA Specimen Type: PLAS MA No comment entered. Ordering Provider: CAMDEN GILES Report Released Date/Time: Jul 17, 2024 07:38 PM Reporting Lab: [address] [address] Performing Lab: [address] [address] PROTIME 19.1 s H 9.4-12.5 INR VALUE 1.7 {INR} Jul 18, 2024 06:32 AM [facility] CBC BLOOD Specimen Type: BLOOD Comment: HGB Called to : Dr. Posadas MOD at: [id number] on: 07/18/24 by: [email or web address] Critical Verbal Readback Performed Ordering Provider: CAMDEN GILES Report Released Date/Time: Jul 17, 2024 07:38 PM Reporting Lab: [address] [address] Performing Lab: [address] [address] WBC 7.0 10*3/uL 3.6-11.2 RBC 2.04 10*6/uL [...] 10*3/uL 2.10-8.00 Jul 18, 2024 06:32 AM [facility] VANCOMYCIN (STL) PLASMA Specimen Type: PLASM A No comment entered. Ordering Provider: CAMDEN GILES Report Released Date/Time: Jul 17, 2024 07:38 PM Reporting Lab: [address] [address] Performing Lab: [address] [address] VANCOMYCIN (STL) 5.0 ug/mL L 10-15 Jul 18, 2024 06:32 AM [facility] MAGNESIUM PLASMA Specimen Type: PLASM A Comment: No hemolysis noted. Ordering Provider: CAMDEN GILES Report Released Date/Time: Jul 17, 2024 07:38 PM Reporting Lab: [address] [address] Performing Lab: [address] [address] MAGNESIUM 1.5 mg/dL L 1.6-2.6 Jul 18, 2024 06:32 AM [facility] PHOSPHOROUS PLASMA Specimen Type: PLASM A Comment: No hemolysis noted. Ordering Provider: CAMDEN GILES Report Released Date/Time: Jul 17, 2024 07:38 PM Reporting Lab: [facility] [address] [facility] [address] Performing Lab: [address] [address] PHOSPHOROUS 2.2 mg/dL L 2.3-4.7 Jul 18, 2024 06:32 AM [facility] COMPREHENSIVE METABOLIC PANEL PLASMA Specimen Type: PLASMA Comment: No hemolysis noted. Ordering Provider: CAMDEN GILES Report Released Date/Time: Jul 17, 2024 07:38 PM Reporting Lab: [address] [address] Performing Lab: [address] [address] CREATININE 1.08 mg/dL 0.7-1.3 UREA NITROGEN 40.5 [...] 75.2 >60 Jul 18, 2024 12:05 AM [facility] HGB,HCT,PLT BLOOD Specimen Type: BLOOD No comment entered. Ordering Provider: ROSA VARGAS Report Released Date/Time: Jul 17, 2024 09:07 PM Reporting Lab: [facility] [address] [facility] [address] Performing Lab: [facility] [address] [address] HGB 7.3 g/dL L 13.1-16.8 HCT 21.0 L 38.2-48.4 PLT 64 10*3/uL L 150-400 Jul 17, 2024 07:45 PM [facility] MRSA SURVL NARES DNA NARES Specimen [...] information for final interpretation. Ordering Provider: CAMDEN GILES Report Released Date/Time: Jul 17, 2024 07:38 PM Reporting Lab: [address] [address] Performing Lab: [address] [address] MRSA SURVL NARES DNA Negative Negative Jul 17, 2024 07:36 PM [facility] GLUCOSE,BLOOD-poct ([facility]) BLOOD Specimen Type: BLOOD Comment: Test Performed by: [id number] Meter #: [id number] Ordering Provider: CAMDEN GILES Report Released Date/Time: Jul 17, 2024 07:48 PM Reporting Lab: [address] [address] Performing Lab: [address] [address] GLUCOSE,BLOOD-poct (L) 98 mg/dL 72-99 Jul 17, 2024 07:35 PM [facility] BLOOD GAS PANEL ABG (L) VENOUS BLOOD Specimen Type : VENOUS BLOOD Comment: normalcy status - Below absolute low-off instrument scale Test Performed by: [id number] Meter #: [id number] Ordering Provider: CAMDEN GILES Report Released Date/Time: Jul 17, 2024 07:37 PM Reporting Lab: [address] [address] Performing Lab: [address] [address] GEM PH 7.39 7.31-7.41 GEM PCO2 31 [...] TEMP 37.0 Jul 17, 2024 07:10 PM [facility] URINALYSIS W/ CX REFLEX (STL-PB) URINE Specim en Type: URINE No comment entered. Ordering Provider: CASEY BOONE Report Released Date/Time: Jul 17, 2024 04:24 PM Reporting Lab: [address] [address] Performing Lab: [address] [address] URINE COLOR Light-Yellow Yellow U.BILIRUBIN Negative mg/dL Negative U.PH 6.0 5.0-8.0 APPEARANCE Clear Clear U.NITRITE Negative mg/dL Negative URN.GLUCOSE Normal mg/dL Negative URN.PROTEIN Negative mg/dL URN.UROBILINOGEN Normal mg/dL Normal URN.BLOOD Negative mg/dL Negative-Trace URN.KETONES Trace mg/dL Negative-Trace URN.LEUK.EST. Negative mg/dL Negative-Tr april URN.SPECIFIC GRAVITY 1.029 Jul 17, 2024 06:25 PM [facility] LDH PLASMA Specimen Type: PLASM A No comment entered. Ordering Provider: CASEY BOONE Report Released Date/Time: Jul 17, 2024 06:13 PM Reporting Lab: [address] [address] Performing Lab: [address] [address] LDH 305 U/L H 125-243 Jul 17, 2024 06:25 PM [facility] HAPTOGLOBIN (STL) PLASMA Specimen Type: PLASM A No comment entered. Ordering Provider: CASEY BOONE Report Released Date/Time: Jul 17, 2024 06:13 PM Reporting Lab: [address] [address] Performing Lab: [address] [address] HAPTOGLOBIN (STL) 93 mg/dL 44-215 Jul 17, 2024 06:25 PM [facility] RETICULOCYTE PANEL BLOOD Specimen Type: BLOOD No comment entered. Ordering Provider: CASEY BOONE Report Released Date/Time: Jul 17, 2024 06:13 PM Reporting Lab: [address] [address] Performing Lab: [address] [address] RETIC RATIO 7.35 H 0.50-2.30 IRF 39.7 H 2.3-13.4 RETICULOCYTE HEMOGLOBIN EQUIVALENT 35.8 pg 28.2-36.6 RETIC COUNT,ABS 0.129 10*6/uL H 0.022-0.10 1 Jul 17, 2024 06:25 PM [facility] CBC BLOOD Specimen Type: BLOOD Comment: HGB Called to : Watson White at: [id number] on:[id number] by: KPM Critical Verbal Readback Performed Ordering Provider: CAMDEN GILES Report Released Date/Time: Jul 17, 2024 07:09 PM Reporting Lab: [address] [address] Performing Lab: [address] [address] WBC 27.6 10*3/uL H 3.6-11.2 RBC 1.76 [...] H 2.10-8.00 Jul 17, 2024 04:59 PM [facility] BLOOD GAS PANEL ABG ([facility]) VENOUS BLOOD Specimen Type : VENOUS BLOOD Comment: Test Performed by: [id number] Meter #: [id number] Ordering Provider: CASEY BOONE Report Released Date/Time: Jul 17, 2024 05:00 PM Reporting Lab: [address] [address] Performing Lab: [address] [address] GEM PH 7.39 7.31-7.41 GEM PCO2 33 [...] TEMP 37.0 Jul 17, 2024 04:25 PM [facility] MAGNESIUM PLASMA Specimen Type: PLASM A Comment: No hemolysis noted. Ordering Provider: CASEY BOONE Report Released Date/Time: Jul 17, 2024 04:24 PM Reporting Lab: [facility] [address] [facility] [address] Performing Lab: [address] [address] MAGNESIUM 1.4 mg/dL L 1.6-2.6 Jul 17, 2024 04:25 PM [facility] PT/INR NEW (STL-MA) PLASMA Specimen Type: PLAS MA No comment entered. Ordering Provider: CASEY BOONE Report Released Date/Time: Jul 17, 2024 04:24 PM Reporting Lab: [place] [id number] [facility] [address] Performing Lab: [address] [address] PROTIME 25.3 s H 9.4-12.5 INR VALUE 2.3 {INR} Jul 17, 2024 04:25 PM [facility] COVID-19 DIAGNOSTIC (FLU/RSV)(STL) NASOPHARYNX Spec imen [...] Jul 17, 2024 04:24 PM Reporting Lab: [facility] [address] [facility] [address] Performing Lab: [address] [address] INFLUENZA A Negative Negative INFLUENZA B Negative Negative COVID-19 (STL-PB) Not Detected Not Detec nate RSV (Cepheid) NEGATIVE Negative Jul 17, 2024 04:25 PM [facility] COMPREHENSIVE METABOLIC PANEL PLASMA Specimen Type: PLASMA Comment: No hemolysis noted. Ordering Provider: CASEY BOONE Report Released Date/Time: Jul 17, 2024 04:24 PM Reporting Lab: [facility] [address] [facility] [address] Performing Lab: [address] [address] CREATININE 1.25 mg/dL 0.7-1.3 UREA NITROGEN 47.0 [...] Jul 17, 2024 04:25 PM [facility] CBC BLOOD Specimen Type: BLOOD No comment entered. Ordering Provider: CASEY BOONE Report Released Date/Time: Jul 17, 2024 04:24 PM Reporting Lab: [facility] [address] [facility] [address] Performing Lab: [facility] [address] [place] [address] WBC 42.4 10*3/uL H 3.6-11.2 RBC 2.20 [...] 2.10-8.00 Jul 13, 2024 12:39 PM [facility] TSH W/ REFLEX FT4 (STL) PLASMA Specimen Type: PLASMA No comment entered. Ordering Provider: TONY FELICIANO Report Released Date/Time: Jun 07, 2024 01:01 PM Reporting Lab: [facility] [address] [facility] [address] Performing Lab: [facility] [address] [facility] [address] TSH 1.431 u[IU]/mL 0.47-5 Jul 13, 2024 12:39 PM [facility] PHOSPHOROUS PLASMA Specimen Type: PLASM A Comment: No hemolysis noted. Ordering Provider: TONY FELICIANO Report Released Date/Time: Jun 07, 2024 01:01 PM Reporting Lab: [facility] [address] [place] [address] Performing Lab: [address] [address] PHOSPHOROUS 2.4 mg/dL 2.3-4.7 Jul 13, 2024 12:39 PM [facility] MAGNESIUM PLASMA Specimen Type: PLASM A Comment: No hemolysis noted. Ordering Provider: TONY FELICIANO Report Released Date/Time: Jun 07, 2024 01:01 PM Reporting Lab: [address] [address] Performing Lab: [facility] [address] [place] [address] MAGNESIUM 2.0 mg/dL 1.6-2.6 Jul 13, 2024 12:39 PM [facility] COMPREHENSIVE METABOLIC PANEL PLASMA Specimen Type: PLASMA Comment: No hemolysis noted. Ordering Provider: TONY FELICIANO Report Released Date/Time: Jun 07, 2024 01:01 PM Reporting Lab: [address] [address] Performing Lab: [address] [address] CREATININE 0.75 mg/dL 0.7-1.3 UREA NITROGEN 21.3 [...] Jul 13, 2024 12:39 PM [facility] CBC BLOOD Specimen Type: BLOOD Comment: no clot Ordering Provider: TONY FELICIANO Report Released Date/Time: Jun 07, 2024 01:01 PM Reporting Lab: [place] [id number] [facility] [address] Performing Lab: [address] [address] WBC 3.0 10*3/uL L 3.6-11.2 RBC 3.83 [...] 10*3/uL 2.10-8.00 Jul 13, 2024 12:38 PM [facility] ALPHA-FETOPROTEIN(STL-PB) SERUM Specimen Type : SERUM No comment entered. Ordering Provider: CRYSTAL MASSEY Report Released Date/Time: Jul 04, 2024 03:26 PM Reporting Lab: [address] [address] Performing Lab: [address] [address] ALPHA-FETOPROTEIN(STL-PB) 16.86 ng/mL H 1- 8.78 Jul 13, 2024 12:37 PM [facility] CARBOHYDRATE Ag SERUM Specimen Type: SERUM Comment: REFERENCE RANGE: <34 U/mL This test was performed using the Siemens chemiluminescent method. Values obtained from different assay methods cannot be used inter- changeably. CA 19-9 levels, regardless of value, should not be interpreted as absolute evidence of the presence or absence of disease. Test [facility] by [facility], [facility], [address] [place] [address] Tristin Iyer M.D., Ph.D., Director of Laboratories , [place] [id number] Ordering Provider: CRYSTAL MASSEY Report Released Date/Time: Jul 04, 2024 03:28 PM Reporting Lab: [address] [id number] Performing Lab: [address] CARBOHYDRATE Ag 61 H SEE BELOW Vital Signs: All taken on the encounter date This section contains inpatient and outpatient Vital Signs collected on the date of the Encounter. Date/Time Temperature Pulse Blood Pressure Respiratory Rate SP02 Pain Height Weight Body Mass Index Source Jul 17, 2024 05:30 PM 108 119/77 [facility] Jul 17, 2024 04:30 PM 109 120/76 [facility] Jul 17, 2024 04:10 PM 97.6 95 89/55 17 [facility] Social History: Smoking Status (Most [...] 04:02 PM [facility] ADMIT TOBACCO SCREEN NO [facility] Tobacco Use History This section includes a history of the smoking, or tobacco-related health factors, that were collected on or before the date of the Encounter. The data comes from the [place] facility where the Encounter took place. Date/Time Smoking Status/Tobacco Use Comment F acility Jan 20, 2023 03:49 PM VA-TOBACCO FORMER USER [facility] Jan 20, 2023 03:49 PM VA-TOBACCO QUIT 15 YRS OR MORE [facility] Feb 06, 2021 04:28 PM VA-TOBACCO FORMER USER [facility] Feb 06, 2021 04:28 PM VA-TOBACCO QUIT 15 YRS OR MORE [facility] Radiology Reports: +/- 30 days of [...] ABD PEL W/CONT & 3D: ABRAHAM HAWK [id number] [phone] M Exm Date: AUG 10, 2024@14:33 Req Phys: YASIR SANZ MD Pat Loc: [facility]-EMERGENCY DEPT 2ND SHIFT (R Img Loc: [facility]-CT IMAGING [facility] Service: Unknown [facility], [facility] [address] [place] [address] (Case [id number] COMPLETE) CT ABDOMEN AND PELVIS W/CONTRAST (CT Detailed) CPT:00575 Contrast Media : Non-ionic Iodinated Reason for Study: Abdominal pain, vomiting Clinical History: Responsible Attending: Svetlana Attending Contact Number: [id number] Resident Contact Number: Abdominal pain, vomiting Allergies listed in CPRS chart: Patient has answered NKA Creatinine:CREATININE 0.82 mg/dL 08/10/2024 11:30 /eGFR: STL EGFR (within one year). CREATININE 0.82 mg/dL (08/10/24 11:30) Wt: 152.1 lb [68.99 kg] (08/10/2024 11:31) History of: Renal failure, chronic or acute renal disease: NO Report Status: Verified Date Reported: AUG 10, 2024 Date Verified: AUG 10, 2024 Fire Claims Adjuster E-Sig:/ES/PETROS MCCORD Report: Case [id number]. CT ABDOMEN AND PELVIS W/CONTRAST. Gastrointestinal contrast: [...] inguinal hernias. Dictated by Kenneth Albright DO (dental resident). I, Petros Mccord, have reviewed the images and report and concur with these findings. Primary Interpreting Staff: PETROS MCCORD MD (Fire Claims Adjuster) Primary Interpreting Resident: KENNETH ALBRIGHT, Adult Services Librarian /PETROS REESE [facility] Aug 01, 2024 10:20 AM PET/CT TUMOR IMAGING (SKULL TO MID-THIGH)-P: ABRAHAM HAWK [id number] -1955 M Exm Date: AUG 01, 2024@10:20 Req Phys: TONY FELICIANO Loc: [facility]-ONCOLOGY IRIS (Req'g Loc) [facility] [place]: [facility]-PET-CT Service: Unknown [address] [address] (Case [id number] COMPLETE) PET/CT TUMOR SKULL BASE TO MID-T(NM Detailed) CPT:46565 CPT Modifiers : PS PET TUMOR SUBSQ TX STRATEGY Reason for Study: Nasopharyngeal cancer (Case [id number] COMPLETE) F-18 FLUORODEOXYGLUCOSE (FDG),PER(NM Detailed) CPT:A9552 Clinical History: Report Status: Verified Date Reported: AUG 01, 2024 Date Verified: AUG 01, 2024 Fire Claims Adjuster E-Sig:/ES/NATASHA GOVEA Report: PATIENT NAME: ABRAHAM HAWK. CASE #: [id number], [id number]. PROCEDURE: PET/CT study Indication: Nasopharyngeal cancer HISTORY: [...] lytic osseous lesion is noted within the [id number]-ja-hljh. Impression: 1. The previous sites of FDG [...] NEEDED Primary Interpreting Staff: NATASHA GOVEA MD (Fire Claims Adjuster) /PFT NATASHA GOVEA. [facility] Jul 27, 2024 03:41 PM CHEST PORTABLE: ABRAHAM HAWK [id number] -1955 M Exm Date: JUL 27, 2024@15:41 Req Phys: ELIZABETH COATES Pat Loc: -EMERGENCY DEPT 2ND SHIFT (R Img Loc: -MAIN RADIOLOGY SUITE Service: [facility], [facility] [address] [place] [address] (Case [id number] COMPLETE) CHEST PORTABLE (RAD Detailed) CPT:67698 Proc Modifiers : Portable Reason for Study: sob Clinical History: Report Status: Verified Date Reported: JUL 27, 2024 Date Verified: JUL 27, 2024 Fire Claims Adjuster E-Sig:/ES/Sol Abraham MD Report: CASE [id number]. AP portable view chest. COMPARISON: Chest x-ray [...] advised. Report dictated by Krystian Sultana D.O. (dental resident) I, Sol Abraham, have reviewed the images and report and concur with these findings. Primary Interpreting Staff: Sol Abraham MD, Radiologist (Fire Claims Adjuster) Primary Interpreting Resident: Krystian Sultana D.O., Resident Physician /SOL DHALIWAL [facility] Jul 17, 2024 06:[address] ABD PEL W/CONT & 3D: ABRAHAM HAWK [id number] -1955 M Exm Date: JUL 17, 2024@18:18 Req Phys: CASEY BOONE Pat Loc: 4-C SICU-/07-17-2024@19:47 Img Loc: [facility]-CT IMAGING [facility] Service: Unknown [facility], [facility] [address] [place] [address] (Case [id number] COMPLETE) CT ABDOMEN AND PELVIS W/CONTRAST (CT Detailed) CPT:94847 Contrast Media : Non-ionic Iodinated Reason for Study: septic shock, abd pain Clinical History: Responsible Attending: Nils Attending Contact Number: [phone] Resident Contact Number: Septic shock, Patient with [...] 17, 2024 Date Verified: JUL 17, 2024 Fire Claims Adjuster E-Sig: Report: CT THORAX W/CONT (PE) [PRINTSET], [...] from 09/12/2023. READING PHYSICIAN: Guilherme Talbert M.D. -[phone] 07/17/2024 17:44 PST [facility] [employer] Teleradiology Program [phone] (For Medical Practitioner Use Only) Attention Patients / Veterans: If you have questions or concerns about these test results, please contact your ordering provider or primary care team. Primary Interpreting Staff: RADIOLOGY,OUTSIDE SERVICE, Staff Physician / RADIOLOGY,OUTSIDE SERVICE [facility] Jul 17, 2024 06:[address] PE CHEST W/3D: ABRAHAM HAWK [id number] -1955 M Ex Date: JUL 17, 2024@18:17 Req Phys: CASEY BOONE Loc: 4-C SICU-[facility]/07-17-2024@19:47 [facility] [place] Loc: [facility]-CT IMAGING [facility] Service: Unknown [facility] [address] [place] [address] (Case [id number] COMPLETE) CT THORAX W/CONT (PE) (CT Detailed) CPT:42196 Contrast Media : unspecified contrast media Reason for Study: RO PE Clinical History: Responsible Attending: Nils Attending Contact Number: [phone] Resident Contact Number: Patient with HCC and [...] 17, 2024 Date Verified: JUL 17, 2024 Fire Claims Adjuster E-Sig: Report: CT THORAX W/CONT (PE) [PRINTSET], [...] from 09/12/2023. READING PHYSICIAN: Guilherme Talbert M.D. -[phone] 07/17/2024 17:44 PST [facility] National Teleradiology Program [phone] (For Medical Practitioner Use Only) Attention Patients [...] DATE: AUG 16, 2024@09:43:26 AUTHOR: TRUDY ACOSTA COSIGNER: URGENCY: STATUS: COMPLETED $APHDR - - [...] DYSPLASIA OR MALIGNANCY - SEE DESCRIPTION /es/ TRUDY ACOSTA Pathologist Signed Aug 16, 2024@09:43 Performing Laboratory: Surgical Pathology Report Performed By: [facility], [address] [facility]# [id number] [facility] [facility] [address] [phone] $FTR - - - - - - [...] - - ABRAHAM HAWK STANDARD FORM 515 ID:[id number] SEX:M :1955 AGE: 68 LOC:APFEE PCP: Deirdre Wild /loly/ TRUDY ACOSTA Pathologist Signed: 08/16/2024 09:43 TRUDY ACOSTA [facility] Aug 11, 2024 06:00 AM LR MICROBIOLOGY RE PORT: Accession [UID]: [id number] [[id number]] Received: Aug 11, 2024@06:19 Collection sample: B D BLD. BOTTLE Collection date: Aug 11, 2024 06:00 Site/Specimen: BLOOD Provider: GILSON OG Test(s) ordered: BLOOD CULT (SET 1)............ completed: Aug 17, 2024 10:06 * BACTERIOLOGY FINAL REPORT => Aug 17, 2024 10:22 TECH CODE: [id number] Bacteriology Remark(s): 08.17.24 ANITHA Culture shows NO GROWTH IN 6 DAYS =--=--=--=--=--=--=--=--=-- =--=--=--=--=--=--=--=--=-- =--=--=--=--=--=--=--=-- Performing Laboratory: Bacteriology Report Performed By: MS TARA BACON [address] [place], [place] [address]IA# [id number] [address] [place] [phone] STEPHANIEJULISSA [facility] Jul 17, 2024 05:10 PM LR MICROBIOLOGY RE PORT: Accession [UID]: [id number] [[id number]] Received: Jul 17, 2024@17:30 Collection sample: B D BLD. BOTTLE (SET 2)Collection date: Jul 17, 2024 17:10 Site/Specimen: BLOOD Provider: CASEY BOONE Test(s) ordered: BLOOD CULT (SET 2)............ completed: Jul 23, 2024 14:26 * BACTERIOLOGY FINAL REPORT => Jul 23, 2024 14:28 TECH CODE: [id number] Bacteriology Remark(s): CULTURE IS NEGATIVE TO DATE, ALL POSITIVES ARE ROUTINELY CALLED. KI Culture shows NO GROWTH IN 6 DAYS. 07/23/24 KI =--=--=--=--=--=--=--=--=-- =--=--=--=--=--=--=--=--=-- =--=--=--=--=--=--=--=-- Performing Laboratory: Bacteriology Report Performed By: [facility] CLIA# [id number] [address] [place] [phone] STEPHANIEJULISSA [facility] Jul 17, 2024 05:10 PM LR MICROBIOLOGY RE PORT: Accession [UID]: [id number] [[id number]] Received: Jul 17, 2024@17:30 Collection sample: B D BLD. BOTTLE Collection date: Jul 17, 2024 17:10 Site/Specimen: BLOOD Provider: CASEY BOONE Test(s) ordered: BLOOD CULT (SET 1)............ completed: Jul 23, 2024 14:26 * BACTERIOLOGY FINAL REPORT => Jul 23, 2024 14:28 TECH CODE: [id number] Bacteriology Remark(s): CULTURE IS NEGATIVE TO DATE, ALL POSITIVES ARE ROUTINELY CALLED. KI Culture shows NO GROWTH IN 6 DAYS. 07/23/24 KI =--=--=--=--=--=--=--=--=-- =--=--=--=--=--=--=--=--=-- =--=--=--=--=--=--=--=-- Performing Laboratory: Bacteriology Report Performed By: [facility] CLIA# [id number] [address] [facility] [address] [place] [address] JULISSA BROWN [facility] Encounter Notes: All associated encounter notes This section contains the clinical notes associated to the Encounter. Date/Time Encounter Note(s) Provider Source Jul 22, 2024 08:48 PM NURSING TRANSFER SUMMARIZATION DISCHARGE NOTE: LOCAL TITLE: JEY DISCHARGE/TRANSFER SUMMARY ST STANDARD TITLE: NURSING TRANSFER SUMMARIZATION DISCHARGE NOTE DATE OF NOTE: JUL 22, 2024@20:48 ENTRY DATE: JUL 22, 2024@20:48:14 AUTHOR: JOANNE MCCAIN EXP COSIGNER: URGENCY: STATUS: COMPLETED DISCHARGE - TRANSFER SUMMARY Action: Discharge Diagnosis: Last Admission: 07/17/24 7:35:25 pm Admit Dx: ACUTE BLOOD LOSS ANEMIA Age: 68 Allergies: Patient has answered NKA Patient Condition: Stable Vital Signs: Temperature: 97.4 F [36.3 C] (07/22/2024 11:48) Pulse: 72 (07/22/2024 11:48) Respiration: 20 (07/22/2024 11:48) Blood Pressure: 133/75 (07/22/2024 11:48) Pain: 0 (07/22/2024 11:48) Fall Risk Assessment Score: 35 Fall Risk Level: Low Risk LEVEL OF LIFT REQUIRED: No assistance Safe Patient Handling - Patient Mobility Assessment Tool Isolation: No Precautions: None Orientation: x3 Hygiene: Self Care Nutrition: Modified Diet: pureed Special needs: Assistance: Independent Bowel/Bladder: Date of last bowel movement: Jun Defecation: Normal Able to void: YES Continent: YES Catheter: No Wound / Skin Condition: Assessment Type: SKIN REINSPECTION/REASSESSMENT SKIN INSPECTION: Skin Color: Usual for ethnicity Skin Temperature: Warm Skin Moisture: Normal Skin Turgor: Elastic (normal/immediate) INTERVENTIONS: The pressure injury interventions were not needed - patient/resident is not at risk. RISK FACTORS THAT INCREASE RISK FOR DEVELOPING PRESSURE INJURIES The patient/resident does not have any additional risk factors. SKIN ALTERATIONS: Pressure Ulcer/Injury Documentation from the past year: No data available SKIN ALTERATIONS: Wound Documentation from the past year: No data available for: Skin Integrity - Wound Skin Integrity - Wound Second Skin Integrity - Wound Third Skin Integrity - Wound Fourth Skin Integrity - Wound Fifth Skin Integrity - Wound Additional SKIN INTEGRITY: Intact STANDARD OF CARE / PRACTICE IMPLEMENTED: POC dc'd Indicate status at Discharge/Transfer: Stabilized Flu Shot Given: No f/u w/ pcp Pneumococcal Shot Given: No f/u w/ pcp MRSA Discharge Swab Done: No Reason: Per new protocol Discharged/Transfered to: Own home without home care services Accompanied by (Name & Relationship): Self Next of Kin notified: NO Discharge/Transfer Mode: Ambulatory Wheelchair Discharged/Transferred with: Written Discharge Instructions Medications Return Appointments The [place] was informed of the date and time of his/her follow-up mental health appointments: NO The [place] was provided the opportunity to cancel or change his/her scheduled follow-up mental health appointments: NO The was educated about what to do and who to contact should he/she need to cancel the follow-up mental health appointment: NO Clothing / Valuables returned: Yes Describe: Vet packed own belongings Prosthetics with patient: Dentures/Partials with patient: None Glasses with patient: NA Other: NA Printed MD Instruction sheet with medication list reviewed and given to the patient/caregiver. Patient/Caregiver verifies medication list is complete and accurate. Patient/Caregiver appeared ready for instruction (good eye contact, appropriate questions, active participation, etc) Person(s) who received education: Patient Education Topic/Teaching Needs: Disease/Condition GI bleed Medication new meds Diet/Nutrition as tolerated Follow-up Instructions f/u appts Methods used Included: A copy of the Discharge Instructions Health Summary given to patient/caregiver and signed by patient/guardian. Patient's medications were reviewed and reconciled by discharge team. Teaching outcomes: Good level of understanding Comment: Hang vocalizes understanding /es/ JOANNE CARSONN RN REGISTERED NURSE Signed: 07/22/2024 20:[address] [facility] Jul 22, 2024 12:55 PM NURSING INPATIENT NOTE: LOCAL TITLE: MSAES ACUTE INPATIENT NSG SHIFT ASSESSMENT STANDARD TITLE: NURSING INPATIENT NOTE DATE OF NOTE: JUL 22, 2024@12:55 ENTRY DATE: JUL 22, 2024@12:56:05 AUTHOR: JOANNE MCCAIN EXP COSIGNER: URGENCY: STATUS: COMPLETED Version 2.2 Charting in accordance with [facility] STANDARD (MSAES) ACUTE INPATIENT/REHABILITATION NURSING ADMISSION SCREENING, ASSESSMENT, AND STANDARDS OF CARE ASSESSMENT HANDOFF Bedside report and handoff completed Safety check completed PAIN ASSESSMENT Patient's acceptable pain goal: 0 No pain Are you currently experiencing pain? No: Pain Score: 0 BECKER FALL SCALE & TIPS PROGRAM Becker Fall Scale: The Becker Fall scale was performed and score was 0. This is indicative of low risk of falls. History of falling: immediate or within 3 months? No Secondary diagnosis: No Ambulatory aid: None/bedrest/nurse assist Intravenous therapy/Heparin lock: No Gait/Transferring: Normal/bed rest/immobile Mental Status: Oriented to own ability/knows own limitations Fall Tailoring Interventions for Patient Safety (TIPS) Fall TIPS initiated with patient: Yes Interventions: Communicate recent fall or risk of harm Fall TIPS reviewed with patient: Yes Interventions: Communicate recent fall or risk of harm ENVIRONMENTAL SAFETY MANAGEMENT Implemented safety standards of care: -[place] to unit & environment -Adequate room lighting -Bed in low and locked position -Call light within reach -Personal items within reach -Traffic path in room free of clutter -Non-slip footwear -Upper/half length side rails up for bed mobility -Sensory aids within reach -Encourage patient to utilize sensory support Additional safety measures: Increased frequency of rounding NEUROLOGICAL Neurological Orientation: Oriented x4 Level of Consciousness (AVPU): Alert = Appears aware of and responsive to the environment on their own. Follows commands, opens eyes spontaneously, and tracks objects. Affect/behavior: Cooperative Calm 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 Bilateral: Strong Upper Extremity Bilateral: Full strength [...] NOTE: VAAES SKIN INPECTION/ASSESSMENT MOBILITY Mobility Status: Independent: Able to stand and step without staff assistance Gait: Steady IV LINES Peripheral IV: Line #1: Assessment: Location: Right, Antecubital Gauge: 22 Dressing Condition: Clean, dry, intact Site Condition: No redness, swelling, pain Line Status: Patent/infusing PSYCHOSOCIAL Type of Emotional Support Provided: 1:1 discussion, Anticipated outcomes, Ventilation of feelings asaf /loly/ JOANNE CARSONN RN REGISTERED NURSE Signed: 07/22/2024 13:19 JOANNE MCCAIN [facility] Jul 22, 2024 12:09 PM DISCHARGE SUMMARY: LOCAL TITLE: Discharge Summary STANDARD TITLE: DISCHARGE SUMMARY DICT DATE: JUL 24, 2024@14:42 ENTRY DATE: JUL 24, 2024@14:43:30 DICTATED BY: AQUILES MAYA ATTENDING: ZAHRAA ABREU URGENCY: routine STATUS: COMPLETED PRINCIPAL DIAGNOSIS: Upper Gastrointestinal Bleed SECONDARY DIAGNOSES: Significant Medical Problems PRESENT on Admission: compensated cirrhosis secondary to hepatitis C (status post sustained virologic response) complicated by hepatocellular carcinoma (status post transarterial chemoembolization in July and November 2022), and 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 He recently received his first dose of Keytruda on July 13, 2024. The patient presented with worsening shortness of breath, fatigue, diarrhea with black liquid stools, and weakness following the Keytruda infusion. His symptoms included lightheadedness, generalized weakness, and new-onset black tarry diarrhea. In the ED, he was found to be hypotensive and showed laboratory evidence of significant leukocytosis, acute anemia, mild acute kidney injury, and elevated INR. He received fluid resuscitation and broad-spectrum antibiotics for possible sepsis. A CT scan of the abdomen showed no evidence of colitis, and an EGD did not show any active gastrointestinal bleeding. On admission, he was monitored in the ICU, before stabilizng and being transfered to the floor service. Supportive care, including blood transfusions and antibiotic therapy, was provided. The patient's condition stabilized, and his laboratory values improved during his hospital stay. He was discharged home in stable condition with arrangements for follow-up care. HOSPITAL COURSE: Mr. Hawk is a 68-year-old male with known cirrhosis secondary to hepatitis C (post-SVR) complicated by hepatocellular carcinoma (treated with TACE in July and November 2022) and metastatic SCC of oropharynx, who presented with progressively worsening shortness of breath, fatigue, diarrhea with black liquid stools, and generalized weakness following the recent initiation of Keytruda on July 13, 2024. #Melena #Acute blood loss anemia. Patient w/ reported black liquid stools, weakness since Keytruda initiation 07/13/24. Hgb 13 -> 7 on admission compared to one week ago. 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 Low likelihood of immunotherapy-related colitis given no evidence of inflammation on CT abdomen. Lower concern for hemolysis at this time (haptoglobin 93, LDH 305). 07/18 EGD without evidence of bleeding or stigmata of bleeding. S/p 3u pRBC (2u + 1u), 2u FFP (initial INR 2.3), 1u platelets. EGD with findings of small to moderate sized esophageal varices, PHG and friability, w/o active bleeding or stigmata of bleeding. - on propranolol at 5mg BID, dose reduced from home 10mg BID due to lower BP while admitted. - PO PPI daily - Hepatology appt on 07/25. #Thrombocytopenia Plt 61 -> 44 on admission compared to one week ago. Received 1u platelets with repeat plt 39. No evidence of active bleeding at this time. Of note, CT abdomen with noted splenomegaly to 14.8cm, raising c/f sequestration - CTM #SIRS with lactic acidosis - resolved WBC 43 -> 7, lactate 8 -> 1.3 day after admission. Presentation likely related to low volume/underperfusion iso ABLA as above. Lower concern for sepsis at this time. Patient remains afebrile. - Blood cx NGTD - Abx: - S/p vanc/zosyn in ED (07/17) - Switched to vanc/cefe/flagyl on arrival to floor (07/18) - Narrowed to ceftriaxone 1g daily for SBP prophylaxis w/ - Discharged on bactrim for completion on 07/23. 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 Infectious or inflammatory process vs metastatic lesion. Unclear if correlated to 04/23/[address] Inpatient pulm team have also discussed this lesion with Dr. Feliciano. - Outpatient heme/onc Dr. Feliciano made aware and will f/u CONDITION ON DISCHARGE: Stable FOLLOW-UP: 07/25/2024 11:00 [facility]-HEP LIVER 07/26/2024 10:00 [facility]-ST CLR PACT PHONE JEY 08/01/2024 10:15 [facility]-NUC MED PET A 08/02/2024 11:30 [facility]-ONCOLOGY FELICIANO 08/02/2024 12:00 [facility]-CHEMO 09/18/2024 14:00 [facility]-OPTOMETRY 3 NON-VA FOLLOW-UP CARE: N/A DISCHARGE MEDICATIONS: Active Outpatient Medications (including Supplies): [...] HOURS WHILE AWAKE Indication: FOR NASAL CONGESTION 8) SULFAMETHOXAZOLE 800/TRIMETH 160MG TAB TAKE 1 [...] OR DRUG SENSITIVITIES: Patient has answered NKA DIET: regular ACTIVITY: As tolerated, with recommendation to slowly ease back into anything physically intensive. INFORMATION REGARDING CONDITION OR PROPER HOME AND/OR WOUND CARE: N/A RETURN TO WORK: As tolerated, with recommendation to slowly ease back into anything physically intensive. 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 [ ] The patient is not competent in the VA sense of the word. TOTAL TIME SPENT FOR FINAL HOSPITAL DISCHARGE: 60 minutes. Verified By MRT/ADRI /loly/ Zahraa Abreu MD Staff Physician Signed: 07/25/2024 14:27 for AQUILES MAYA MD Internal Medicine Resident /loly/ Zahraa Abreu MD Staff Physician Cosigned: 07/25/2024 14:27 ZAHRAA ABREU [facility] Jul 22, 2024 10:00 AM NURSING INPATIENT NOTE: LOCAL TITLE: [facility] NURSING FREQUENT DOCUMENTATION STANDARD TITLE: NURSING INPATIENT NOTE DATE OF NOTE: JUL 22, 2024@10:00 ENTRY DATE: JUL 22, 2024@14:36:08 AUTHOR: MARIA ELENA TROY EXP COSIGNER: URGENCY: STATUS: COMPLETED Version 2.4 Charting in accordance with [facility] STANDARD (MSAES) ACUTE INPATIENT/REHABILITATION NURSING ADMISSION SCREENING, ASSESSMENT, AND STANDARDS OF CARE ACTIVITIES OF DAILY LIVING Hygiene ADLs: Dressing: Upper Body: Independent Lower Body: Independent Hand Hygiene: Performed post toileting Performed pre meals/snacks Oral Care: Non-ventilator patient: Patient teeth brushed: Independently The was educated that poor oral hygiene increases the risk of hospital acquired pneumonia and dental problems like gingivitis and tooth decay. was educated using their preferred method and verbalized understanding. Personal Care: Independent ACTIVITY/MOBILIZATION Mobility Status: Independent: Equipment utilized: Cane Gait: Steady Marshall Lovett - Highest Level of Mobility achieved this shift: 4 - Transferred to chair/commode ENVIRONMENTAL SAFETY MANAGEMENT Implemented safety standards of care: -[place] to unit & environment -Adequate room lighting -Bed in low and locked position -Call light within reach -Personal items within reach -Traffic path in room free of clutter -Non-slip footwear -Upper/half length side rails up for bed mobility -Sensory aids within reach -Encourage patient to utilize sensory support Additional safety measures: Mobility support items readily available GASTROINTESTINAL No bowel movement reported by patient Elimination: GENITOURINARY Elimination: Continent ORAL INTAKE (PERCENTAGE OF MEAL EATEN) Breakfast: 51% - 75% /loly/ MARIA ELENA COMBSA YOUTH TEACHER Signed: 07/22/2024 14:38 MARIA ELENA TROY [facility] Jul 22, 2024 09:04 AM NURSING NOTE: LOCAL TITLE: JEY PROGRESS NOTE STL STANDARD TITLE: NURSING NOTE DATE OF NOTE: JUL 22, 2024@09:04 ENTRY DATE: JUL 22, 2024@09:04:25 AUTHOR: JOANNE MCCAIN EXP COSIGNER: URGENCY: STATUS: COMPLETED Received report from RN Null. Vet denies CP, palpitations or dizziness. No SOB vocalized. +cough. Med team 1C at bedside and aware of cough. Planned discharge today. VSS. PE completed. Will continue to monitor. /loly/ JOANNE AGUILAR RN REGISTERED NURSE Signed: 07/22/2024 09:07 JOANNE MCCAIN [facility] Jul 22, 2024 09:02 AM NURSING INPATIENT NOTE: LOCAL TITLE: [facility] NURSING FREQUENT DOCUMENTATION STANDARD TITLE: NURSING INPATIENT NOTE DATE OF NOTE: JUL 22, 2024@09:02 ENTRY DATE: JUL 22, 2024@09:03 AUTHOR: JOANNE MCCAIN EXP COSIGNER: URGENCY: STATUS: COMPLETED Version 2.4 Charting in accordance with [place] APPROVED VENETIE IRA STANDARD (MSAES) ACUTE INPATIENT/REHABILITATION NURSING ADMISSION SCREENING, ASSESSMENT, AND STANDARDS OF CARE NATIONAL EARLY WARNING SCORE (NEWS) The following vital measurements were used to complete the NEWS. Measurement DT TEMP PULSE RESP BP POx F(C) (L/MIN)(%) 07/22/2024 08:24 97.9(36.6) 65 20 122/75 96 The NEWS total is 0. 1. Temperature (C/F): Score = 0 36.1 - 38.0 C (96.9 - 100.4 F) 2. Pulse: Score = 0 51-90 3. Respirations: Score = 0 12-20 4. Blood Pressure (Only Systolic BP, mmHg): Score = 0 111-219 5. Pulse Oximetry: Score = 0 96% or greater 6. Supplemental oxygen in use: Score = 0 No 7. AVPU: Score = 0 Alert Patient Status: Remains on unit /loly/ JOANNE AGUILAR RN REGISTERED NURSE Signed: 07/22/2024 09:03 JOANNE MCCAIN [facility] Jul 22, 2024 08:45 AM PHYSICIAN EDUCATION DISCHARGE NOTE: LOCAL TITLE: DISCHARGE INSTRUCTIONS ST STANDARD TITLE: PHYSICIAN EDUCATION DISCHARGE NOTE DATE OF NOTE: JUL 22, 2024@08:45 ENTRY DATE: JUL 22, 2024@08:45:43 AUTHOR: AQUILES MAYA EXP COSIGNER: ZAHRAA ABREU URGENCY: STATUS: COMPLETED MEDICATIONS THAT WERE CHANGED: -- We have decreased the dosage of your propanolol to 5mg in the morning and night from 10mg. MEDICATIONS THAT WERE STOPPED (AND REASON FOR STOPPING): -- No medications were stopped. NEW MEDICATIONS WITH INSTRUCTIONS: -- We are starting you on a medication called bactrim. Please take 1 pill of this tomorrow 07/23/24. DATE OF ADMISSION: Jun 19:35 DATE OF DISCHARGE: Jun REASON(S) FOR BEING IN THE HOSPITAL: -- You were admitted to the hospital for bleeding from your GI tract. You underwent an endoscopy with GI. They did not find a source of bleeding in your esophagus or stomach. Your blood levels continued to improve while in the hospital. You regained your strength and are now stable for discharge. YOUR OUTPATIENT CARE TEAM: -- Team Information Primary Care Team: MOMO KEMP PACT 5 PCP *[facility]* PC Provider: SUKHJINDER CHAHAL Position: NURSE [place] FUTURE APPOINTMENTS: -- 07/25/2024 11:00 [facility]HEP LIVER INPATIENT APPOINTMENT 08/01/2024 10:15 [facility]NUC MED PET A INPATIENT APPOINTMENT 08/02/2024 11:30 [facility]ONCOLOGY FELICIANO INPATIENT APPOINTMENT 08/02/2024 12:00 [facility]CHEMO INPATIENT APPOINTMENT 09/18/2024 14:00 [facility]OPTOMETRY 3 INPATIENT APPOINTMENT YOUR KNOWN ALLERGIES: -- Patient has answered NKA CALL YOUR DOCTOR IF YOU HAVE ANY OF THESE PROBLEMS: -- Gastrointestinal (stomach problems): Blood in stool or dark black sticky stools PHYSICAL ACTIVITY: -- Activity as tolerated DIET: -- DEVICES AT DISCHARGE: -- Not Applicable: The patient should be discharged with no urinary catheter or intravenous access TOBACCO & ALCOHOL: -- Discharge tobacco cessation medication(s) not indicated due to: Other reason(s) documented by physician/DESIGN TEACHER/PA or pharmacist Reason(s): Not indicated Discharge medications for alcohol/drug disorder not offered Reason: Not indicated DISCHARGE INSTRUCTIONAL MATERIALS: -- CONDITION OF PATIENT AT DISCHARGE: -- Stable DISCHARGE DESTINATION: -- Home with family OTHER (RETURN TO WORK): -- As tolerated -- NOTE: If you are having feelings of Depression or Emotional Distress, or feel you just need to talk with someone, please call [phone] ([phone]), Veterans - Press 1. COPY OF DISCHARGE INSTRUCTIONS: -- The patient/family understands and will be provided a copy of these discharge instructions. DISCHARGE MEDICATION LIST: -- Active Outpatient Medications (including Supplies): Active Outpatient Medications Status ========= = 1) ARTIFICIAL SALIVA ORAL SPRAY USE 3-5 [...] NEEDED Indication: FOR NAUSEA/VOMITING 6) PROPRANOLOL HCL 5MG TAB TAKE ONE TABLET BY MOUTH TWICE A ACTIVE DAY FOR VARICEAL PROPHYLAXIS Indication: FOR HIGH BLOOD PRESSURE 7) SODIUM CHLORIDE 0.65% SOLN NASAL SPRAY USE 1 SPRAY INTO ACTIVE NOSTRIL(S) EVERY 2 HOURS WHILE AWAKE Indication: FOR NASAL CONGESTION Pending Outpatient Medications Status ========= = 1) SULFAMETHOXAZOLE 800/TRIMETH 160MG TAB TAKE 1 TABLET BY PENDING MOUTH EVERY 24 HOURS (ONCE A DAY) TAKE WITH WATER/AVOID SUNLIGHT. Indication: FOR SBP PROPHYLAXIS Active Non-VA Medications Status ========= = 1) Non-VA AMPHETAMINE/DEXTROAMPHET 30MG SA CAP [...] A DAY ACTIVE NEEDED 14 Total Medications Active Remote Medications: No Active Remote Medications for this patient /loly/ AQUILES MAYA MD Internal Medicine Resident Signed: 07/22/2024 10:13 /loly/ Zahraa Abreu MD Staff Physician Cosigned: 07/22/2024 11:46 AQUILES MAYA [facility] Jul 22, 2024 08:36 AM INTERNAL MEDICINE INPATIENT NOTE: LOCAL TITLE: MEDICINE GENERAL INPATIENT NOTE STANDARD TITLE: INTERNAL MEDICINE INPATIENT NOTE DATE OF NOTE: JUL 22, 2024@08:36 ENTRY DATE: JUL 22, 2024@08:36:32 AUTHOR: AQUILES MAYA EXP COSIGNER: ZAHRAA ABREU URGENCY: STATUS: COMPLETED 68 year old MALE admitted on Jun 19:35 for Last Admission: 07/17/24 7:35:25 pm Admit Dx: ACUTE BLOOD LOSS ANEMIA. Interval Events: - no acute complaints, denies chest pain, abdominal pain, fever/chills - HgB 9.6 from 9.2. Patient feeling improvement of mobility and symptoms. Plan: - Discharge today Active Inpatient Medications: 1) ONDANSETRON INJ,SOLN IVP Q6H PRN 4MG/2ML 2) CALCIUM CARBONATE TAB,CHEWABLE PO Q6H PRN 1500MG 3) ACETAMINOPHEN TAB PO QID PRN for pain 1st line 4) PANTOPRAZOLE TAB,EC PO BID AC 5) PROPRANOLOL (IMMEDIATE RELEASE) TAB PO BID 5MG 6) MELATONIN CAP/TAB PO QHS 3MG 7) CEFTRIAXONE 1GM/BAG INJ,SOLN IVPB Q24H through 07/22 Vital Signs: Pulse: 65 (07/22/2024 08:24) BP: 122/75 (07/22/2024 08:24) RESP: 20 (07/22/2024 08:24) Pain: 0 (07/22/2024 08:24) Tmax: Pulse Oximetry: Weight: 162.1 lb [73.53 kg] (07/22/2024 05:53) Intake/Output: PHYSICAL EXAM: General: NAD Skin: no rashes on exposed skin HEENT: MMM, NCAT, no icterus. Lungs: non-labored respirations, CTAB Cardiovascular: RRR, normal S1/S2 Abdominal: soft, NTND Extremities: warm, no LE edema. Musculoskeletal: grossly normal ROM Neuro: A&Ox4 Psych: normal mood, normal affect Other (IVs, Ngs, Anderson, etc.): Recent Labs: BASIC METABOLIC PANEL: SODIUM 130 L mEq/L 07/20/2024 06:00 POTASSIUM 3.7 mEq/L 07/20/2024 06:00 CHLORIDE 100 mEq/L 07/20/2024 06:00 UREA NITROGEN 15.1 mg/dL 07/20/2024 06:00 CREATININE 0.74 mg/dL 07/20/2024 06:00 CALCIUM 8.5 mg/dL 07/20/2024 06:00 CARBON DIOXIDE 20 L mEq/L 07/20/2024 06:00 GLUCOSE 121 H mg/dL 07/20/2024 06:00 EGFR (CKD-EPI 2020) 99.3 07/20/2024 06:00 WBC: 5.6 10*3/uL (07/21/24 14:00) HCT: 27.6 % L (07/21/24 14:00) HGB: HGB 9.6 L g/dL 07/21/2024 14:00 Plt: PLT 75 L 10*3/uL 07/21/2024 14:00 CK-MB: ____ TROPONIN I HISTORY: No data available Other Labs and Data: Assessment/Plan: 68yo M w/ past medical history 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 Denied fevers, n/v, abdominal pain, chest pain, rash. In the ED, patient hypotensive to 80s and found to have acute anemia (Hgb 13 -> 7, plt 61 -> 44), significant leukocytosis 43 with lactate 8, mild RONNIE and INR 2s. SBP improved to 120s s/p 2L IVF. Received total of 3u pRBC (2u + 1U), 2u FFP, 1u platelets w/ Hgb stable ~8, plt 39, INR 1.5. CT abdomen w/o evidence of colitis. GI consulted, and EGD performed without evidence or stigmata of bleeding (redemonstrated mild esophageal varices, not banded). GI signed off with recs now that pt is stable. Leukocytosis (43 -> 7) and lactic acidosis (8 -> 1.3) resolved day after admission and likely iso SIRS from low volume/perfusion. Patient currently on ceftriaxone for SBP prophylaxis w/ plan for 5 day total abx course. Of note, CT chest showed SHANON cavitary nodule measuring up to 10mm w/ concern for potential metastatic lesion. Unclear if nodule correlates with 03/[address] and outpatient heme/onc Dr. Feliciano made aware. #Melena #ABLA Patient w/ reported black liquid stools, weakness since Keytruda initiation 07/13/24. Hgb 13 -> 7 on admission compared to one week ago. 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 Low likelihood of immunotherapy-related colitis given no evidence of inflammation on CT abdomen. Lower concern for hemolysis at this time (haptoglobin 93, LDH 305). 07/18 EGD without evidence of bleeding or stigmata of bleeding. - T&S, transfuse hgb > 7 - S/p 3u pRBC (2u + 1u), 2u FFP (initial INR 2.3), 1u platelets - on propranolol at 5mg BID - PO PPI - Hgb 07/21 9.6 #Thrombocytopenia Plt 61 -> 44 on admission compared to one week ago. Received 1u platelets with repeat plt 39. No evidence of active bleeding at this time. Of note, CT abdomen with noted splenomegaly to 14.8cm, raising c/f sequestration - CTM #SIRS with lactic acidosis - resolved WBC 43 -> 7, lactate 8 -> 1.3 day after admission. Presentation likely related to low volume/underperfusion iso ABLA as above. Lower concern for sepsis at this time. Patient remains afebrile. 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 Infectious or inflammatory process vs metastatic lesion. Unclear if correlated to 04/23/[address] Inpatient pulm team have also discussed this lesion with Dr. Feliciano. - Outpatient heme/onc Dr. Feliciano made aware and will f/u #Cirrhosis - appears mostly compensated, no PSE / ascites #Coagulopathy - INR 2s, unclear if 2/2 cirrhosis vs nutritional deficiency. S/p 2u FFP. 07/20 INR 1.1 #Mild RONNIE - resolved Cr 1.25 on admission. Most likely prerenal iso blood loss as above. S/p 2L IVF and transfusions. - CTM Code: Full, NOK: VTE ppx: deferred 2/2 acute anemia Diet: puree diet Dispo: home /loly/ AQUILES MAYA MD Internal Medicine Resident Signed: 07/22/2024 08:42 /es/ Zahraa Abreu MD Staff Physician Cosigned: 07/22/2024 11:47 AQUILES MAYA [facility] Jul 22, 2024 02:46 AM NURSING INPATIENT NOTE: LOCAL TITLE: [facility] NURSING FREQUENT DOCUMENTATION STANDARD TITLE: NURSING INPATIENT NOTE DATE OF NOTE: JUL 22, 2024@02:46 ENTRY DATE: JUL 22, 2024@02:46:57 AUTHOR: JT ROWE COSIGNER: URGENCY: STATUS: COMPLETED Version 2.4 Charting in accordance with [place] APPROVED VENETIE IRA STANDARD (MSAES) ACUTE INPATIENT/REHABILITATION NURSING ADMISSION SCREENING, ASSESSMENT, AND STANDARDS OF CARE ACTIVITIES OF DAILY LIVING Hygiene ADLs: Dressing: Upper Body: Independent Lower Body: Independent Eating: Independent Foot Care: Inspection Hand Hygiene: Performed post toileting Performed pre meals/snacks Oral Care: Non-ventilator patient: Patient teeth brushed: Independently The was educated that poor oral hygiene increases the risk of hospital acquired pneumonia and dental problems like gingivitis and tooth decay. [place] was educated using their preferred method and verbalized understanding. Pericare: Soap and water Independent Personal Care: Bath Independent Toileting: Independent ACTIVITY/MOBILIZATION Mobility Status: Independent: Able to stand and step without staff assistance Gait: [facility] Level of Mobility achieved this shift: ENVIRONMENTAL SAFETY MANAGEMENT Implemented safety standards of care: -[place] to unit & environment -Adequate room lighting -Bed in low and locked position -Call light within reach -Personal items within reach -Traffic path in room free of clutter -Non-slip footwear -Upper/half length side rails up for bed mobility -Sensory aids within reach -Encourage patient to utilize sensory support GASTROINTESTINAL No bowel movement reported by patient Elimination: Continent GENITOURINARY Elimination: Continent Color/Characteristic: Yellow /es/ JT ROWE CNA YOUTH TEACHER Signed: 07/22/2024 03:12 JT ROWE [facility] Jul 22, 2024 02:30 AM NURSING INPATIENT NOTE: LOCAL TITLE: [facility] ACUTE INPATIENT NSG SHIFT ASSESSMENT STANDARD TITLE: NURSING INPATIENT NOTE DATE OF NOTE: JUL 22, 2024@02:30 ENTRY DATE: JUL 22, 2024@02:31:03 AUTHOR: GONZALO ASHFORD COSIGNER: URGENCY: STATUS: COMPLETED Version 2.2 Charting in accordance with [facility] VENETIE IRA STANDARD (MSAES) ACUTE INPATIENT/REHABILITATION NURSING ADMISSION SCREENING, ASSESSMENT, AND STANDARDS OF CARE REASSESSMENT NEUROLOGICAL Neurological Orientation: Oriented x4 Level of Consciousness (AVPU): 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 Bilateral: Strong Upper Extremity Bilateral: Full strength Lower Extremity Bilateral: Full strength CARDIOVASCULAR Heart Rate/Rhythm (without telemetry monitor): Regular Edema: None RESPIRATORY Respirations: Unlabored Pattern: Regular GASTROINTESTINAL Elimination: Continent GENITOURINARY Elimination: Continent INTEGUMENTARY/SKIN/WOUND - (INCLUDING BAUTISTA) SEE NOTE: VAAES SKIN INPECTION/ASSESSMENT /JEFF Newsome, RN REGISTERED NURSE Signed: 07/22/2024 02:31 GONZALO ASHFORD [facility] Jul 22, 2024 01:08 AM NURSING INPATIENT NOTE: LOCAL TITLE: [facility] PATIENT SAFETY CHECK STL STANDARD TITLE: NURSING INPATIENT NOTE DATE OF NOTE: JUL 22, 2024@01:08 ENTRY DATE: JUL 22, 2024@01:08:04 AUTHOR: GONZALO ASHFORD EXP COSIGNER: URGENCY: STATUS: COMPLETED BEDSIDE SAFETY CHECK STL A visual sweep of the patient's room for any physical or environmental safety concerns was completed and education provided to patient regarding their personal safety concerns. Comment: PT ASLEEP, APPEARS COMFORTABLE AND FREE OF PAIN, NO DISTRESS NOTED, RR EVEN AND UNLABORED, CALL LIGHT IN REACH, BED IN LOCKED LOW POSITION /JEFF Newsome, RN REGISTERED NURSE Signed: 07/22/2024 01:08 GONZALO ASHFORD [facility] Jul 22, 2024 01:07 AM NURSING TREATMENT PLAN NOTE: LOCAL TITLE: [facility] PLAN OF CARE STANDARD TITLE: NURSING TREATMENT PLAN NOTE DATE OF NOTE: JUL 22, 2024@01:07 ENTRY DATE: JUL 22, 2024@01:07:35 AUTHOR: GONZALO ASHFORD EXP COSIGNER: URGENCY: STATUS: COMPLETED Plan of Care and Discharge Plan (nurse) TREATMENT PLAN NURSING DIAGNOSIS: Alterations in bowel elimination: Diarrhea Goals: *Prior to discharge, patient will: --Will be free of symptom of malabsorbtion evidenced by soft-semisoft stool. --Have regular soft-formed stool Interventions:--Identify with patient his/her usual bowel elimination habits.(MD ROSAMARIA), --Assess for abdominal distention, bowel sound EVERY SHIFT as indicated.(MD ROSAMARIA), --Record intake and output accurately to ensure correct fluid replacement.(Nursing) Care plan status: Continued Progress toward goals documented continuously through progress notes Patient Education (Nursing, SWS, PT/OT, Film Editor Supervisor, Rod Pointer, & Physician) Instruct as to:--Discuss dietary compliance in treatment of malabsorbtive disorder. /JEFF Newsome, RN REGISTERED NURSE Signed: 07/22/2024 01:07 GONZALO ASHFORD [facility] Jul 21, 2024 08:03 PM NURSING NOTE: LOCAL TITLE: [facility] SKIN INSPECTION/ASSESSMENT STANDARD TITLE: NURSING NOTE DATE OF NOTE: JUL 21, 2024@20:03 ENTRY DATE: JUL 21, 2024@20:03:13 AUTHOR: GONZALO ASHFORD EXP COSIGNER: URGENCY: STATUS: COMPLETED Assessment Type: [...] inadequate. Friction and shear Potential problem. INTERVENTIONS: The pressure injury interventions were not needed - patient/resident is not at risk. SKIN INTEGRITY: Intact /JEFF Newsome, RN REGISTERED NURSE Signed: 07/21/2024 20:03 GONZALO ASHFORD [facility] Jul 21, 2024 08:00 PM NURSING INPATIENT NOTE: LOCAL TITLE: [facility] ACUTE INPATIENT NSG SHIFT ASSESSMENT STANDARD TITLE: NURSING INPATIENT NOTE DATE OF NOTE: JUL 21, 2024@20:00 ENTRY DATE: JUL 21, 2024@20:00:24 AUTHOR: GONZALO ASHFORD EXP COSIGNER: URGENCY: STATUS: COMPLETED Version 2.2 Charting in accordance with [place] APPROVED VENETIE IRA STANDARD (MSAES) ACUTE INPATIENT/REHABILITATION NURSING ADMISSION SCREENING, ASSESSMENT, AND STANDARDS OF CARE ASSESSMENT HANDOFF Bedside report and handoff completed Safety check completed PAIN ASSESSMENT Patient's acceptable pain goal: Are you currently experiencing pain? No: Pain [...] Status: Oriented to own ability/knows own limitations ENVIRONMENTAL SAFETY MANAGEMENT Implemented safety standards of care: -[place] to unit & environment -Adequate room lighting [...] commands, opens eyes spontaneously, and tracks objects. 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 Edema: None RESPIRATORY Respirations: Unlabored Pattern: Regular Breath Sounds Auscultated: Right Upper Lobe: Left Upper Lobe: Right Middle Lobe: Right Lower Lobe: Diminished Left Lower Lobe: Diminished GASTROINTESTINAL Last bowel movement: 07/21/2024 Elimination: Continent Palpation: Soft, Non-tender Bowel Sounds: RUQ: Active LUQ: Active RLQ: Active LLQ: Active GENITOURINARY Elimination: Continent INTEGUMENTARY/SKIN/WOUND - (INCLUDING BAUTISTA) SEE NOTE: VAAES SKIN INPECTION/ASSESSMENT ACTIVITIES OF DAILY LIVING Hygiene ADLs: Oral Care: Non-ventilator patient: Swabbing performed-Patient edentulous (lacking teeth) The was educated that poor oral hygiene increases the risk of hospital acquired pneumonia and dental problems like gingivitis and tooth decay. was educated using their preferred method and verbalized understanding. MOBILITY Mobility Status: Independent: Gait: Steady IV LINES Peripheral IV: Line #1: Assessment: Location: Right, Forearm, Antecubital Gauge: 22 Dressing Condition: Clean, dry, intact Site Condition: No redness, swelling, pain Line Status: /loly/ JEFF CASTILLO, RN REGISTERED NURSE Signed: 07/21/2024 20:03 GONZALO ASHFORD [facility] Jul 21, 2024 07:59 PM NURSING INPATIENT NOTE: LOCAL TITLE: [facility] NURSING FREQUENT DOCUMENTATION STANDARD TITLE: NURSING INPATIENT NOTE DATE OF NOTE: JUL 21, 2024@19:59 ENTRY DATE: JUL 21, 2024@19:59:47 AUTHOR: GONZALO ASHFORD EXP COSIGNER: URGENCY: STATUS: COMPLETED Version 2.4 Charting in accordance with [place] APPROVED VENETIE IRA STANDARD (MSAES) ACUTE INPATIENT/REHABILITATION NURSING ADMISSION SCREENING, ASSESSMENT, AND STANDARDS OF CARE NATIONAL EARLY WARNING SCORE (NEWS) The following vital measurements were used to complete the NEWS. Measurement DT TEMP PULSE RESP BP POx F(C) (L/MIN)(%) 07/21/2024 19:59 98(36.7) 78 18 112/75 98 The NEWS total is 0. 1. Temperature (C/F): Score = 0 36.1 - 38.0 C (96.9 - 100.4 F) 2. Pulse: Score = 0 51-90 3. Respirations: Score = 0 12-20 4. Blood Pressure (Only Systolic BP, mmHg): Score = 0 111-219 5. Pulse Oximetry: Score = 0 96% or greater 6. Supplemental oxygen in use: Score = 0 No 7. AVPU: Score = 0 Alert Patient Status: Remains on unit /loly/ YAMILETH CASTILLON, RN REGISTERED NURSE Signed: 07/21/2024 20:00 GONZALO ASHFORD [facility] Jul 21, 2024 07:30 PM NURSING NOTE: LOCAL TITLE: [facility] PROGRESS NOTE STL STANDARD TITLE: NURSING NOTE DATE OF NOTE: JUL 21, 2024@19:30 ENTRY DATE: JUL 21, 2024@19:39:34 AUTHOR: JUAQUIN SALAZAR EXP COSIGNER: URGENCY: STATUS: COMPLETED in bed awake/oriented.Able to do ADL.Poor appetite.Needs attended. /loly/ JEFF BRICE,RN REGISTERED NURSE Signed: 07/21/2024 19:40 JUAQUIN SALAZAR [facility] Jul 21, 2024 05:25 PM NURSING INPATIENT NOTE: LOCAL TITLE: [facility] NURSING FREQUENT DOCUMENTATION STANDARD TITLE: NURSING INPATIENT NOTE DATE OF NOTE: JUL 21, 2024@17:25 ENTRY DATE: JUL 21, 2024@17:25:46 AUTHOR: BRANDAN ANAYA COSIGNER: URGENCY: STATUS: COMPLETED Version 2.4 Charting in accordance with [place] APPROVED VENETIE IRA STANDARD (MSAES) ACUTE INPATIENT/REHABILITATION NURSING ADMISSION SCREENING, ASSESSMENT, AND STANDARDS OF CARE ACTIVITIES OF DAILY LIVING Hygiene ADLs: Dressing: Upper Body: Independent Lower Body: Independent Eating: Independent Foot Care: Inspection Hand Hygiene: Performed post toileting Performed pre meals/snacks Oral Care: Non-ventilator patient: Patient teeth brushed: Independently Pericare: Soap and water Independent Personal Care: Bath Independent Patient declined Comment: patient declined to have bed linen changed Toileting: Independent ACTIVITY/MOBILIZATION Mobility Status: Independent: Able to stand and step without staff assistance Marshall Lovett - Highest Level of Mobility achieved this shift: ENVIRONMENTAL SAFETY MANAGEMENT Implemented safety standards of care: -[place] to unit & environment -Adequate room lighting -Bed in low and locked position -Call light within reach -Personal items within reach -Traffic path in room free of clutter -Non-slip footwear -Upper/half length side rails up for bed mobility -Sensory aids within reach -Encourage patient to utilize sensory support GASTROINTESTINAL Elimination: GENITOURINARY Elimination: Continent ORAL INTAKE (PERCENTAGE OF MEAL EATEN) Breakfast: 51% - 75% Lunch: intake not observed /es/ BRANDAN ANAYA ACCESSIBILITY LIFT TECHNICIAN YOUTH TEACHER Signed: 07/21/2024 17:27 BRANDAN ANAYA [facility] Jul 21, 2024 05:00 PM NURSING INPATIENT NOTE: LOCAL TITLE: [facility] ACUTE INPATIENT NSG SHIFT ASSESSMENT STANDARD TITLE: NURSING INPATIENT NOTE DATE OF NOTE: JUL 21, 2024@17:00 ENTRY DATE: JUL 21, 2024@17:57:09 AUTHOR: JUAQUIN SALAZAR COSIGNER: URGENCY: STATUS: COMPLETED Version 2.2 Charting in accordance with [place] APPROVED VENETIE IRA STANDARD (MSAES) ACUTE INPATIENT/REHABILITATION NURSING ADMISSION SCREENING, ASSESSMENT, AND STANDARDS OF CARE REASSESSMENT PAIN ASSESSMENT Patient's acceptable pain goal: Are you currently experiencing pain? Yes - DVPRS scale used to assess Location: lowerabdomen Defense and Veterans Pain Rating Scale (DVPRS): Pain Score: 5 BECKER FALL SCALE & TIPS PROGRAM Becker [...] Communicate recent fall or risk of harm Assistance out of bed: Call for assistance before getting out of bed Fall TIPS reviewed with patient: Yes Interventions: Communicate recent fall or risk of harm Assistance out of bed: Call for assistance before getting out of bed ENVIRONMENTAL SAFETY MANAGEMENT Implemented safety standards of care: -[place] to unit & environment -Adequate room lighting [...] commands, opens eyes spontaneously, and tracks objects. CARDIOVASCULAR Heart Sounds: Normal (S1S2) Heart Rate/Rhythm (without telemetry monitor): Regular RESPIRATORY Respirations: Unlabored Pattern: Regular Breath Sounds Auscultated: Anterior only Right Upper Lobe: Diminished Left Upper Lobe: Diminished Right Middle Lobe: Right Lower Lobe: Left Lower Lobe: GASTROINTESTINAL Last bowel movement: 07/21/2024 GENITOURINARY Elimination: Continent INTEGUMENTARY/SKIN/WOUND - (INCLUDING BAUTISTA) SEE NOTE: VAAES SKIN INPECTION/ASSESSMENT /loly/ JEFF BRICE,RN REGISTERED NURSE Signed: 07/21/2024 18:[address] [facility] Jul 21, 2024 12:37 PM INTERNAL MEDICINE INPATIENT NOTE: LOCAL TITLE: MEDICINE GENERAL INPATIENT NOTE STANDARD TITLE: INTERNAL MEDICINE INPATIENT NOTE DATE OF NOTE: JUL 21, 2024@12:37 ENTRY DATE: JUL 21, 2024@12:38:46 AUTHOR: PRATIK KAUR EXP COSIGNER: ZAHRAA ABREU URGENCY: STATUS: COMPLETED MEDICINE GENERAL INPATIENT NOTE Has ADDENDA 68 year old MALE admitted on Jun 19:35 for Last Admission: 07/17/24 7:35:25 pm Admit Dx: ACUTE BLOOD LOSS ANEMIA. Interval Events: - no acute complaints, denies chest pain, abdominal pain, fever/chills - 1x BM last night, tarry black Plan: - f/u CBC results this AM - transfuse for Hgb > 7 - Continue day 10/31 antibiotic coverage for variceal bleeding, switch to bactrim for remaining course outpatient - order folate, B12, iron panel for further eval outpatient - likely discharge today pending Hgb Active Inpatient Medications: 1) ONDANSETRON INJ,SOLN IVP Q6H PRN 4MG/2ML 2) CALCIUM CARBONATE TAB,CHEWABLE PO Q6H PRN 1500MG 3) ACETAMINOPHEN TAB PO QID PRN for pain 1st line 4) PANTOPRAZOLE TAB,EC PO BID AC 5) PROPRANOLOL (IMMEDIATE RELEASE) TAB PO BID 5MG 6) CEFTRIAXONE 1GM/BAG INJ,SOLN IVPB Q24H through 07/22 Vital Signs: Pulse: 72 (07/21/2024 08:50) BP: 111/73 (07/21/2024 08:50) RESP: 18 (07/21/2024 08:50) Pain: 0 (07/21/2024 08:50) Weight: 162.1 lb [73.53 kg] (07/21/2024 05:54) PHYSICAL EXAM: General: NAD Skin: no rashes on exposed skin HEENT: MMM, NCAT, no icterus. Lungs: non-labored respirations, CTAB Cardiovascular: RRR, normal S1/S2 Abdominal: soft, NTND Extremities: warm, no LE edema. Musculoskeletal: grossly normal ROM Neuro: A&Ox4 Psych: normal mood, normal affect Recent Labs: BASIC METABOLIC PANEL: SODIUM 130 L mEq/L 07/20/2024 06:00 POTASSIUM 3.7 mEq/L 07/20/2024 06:00 CHLORIDE 100 mEq/L 07/20/2024 06:00 UREA NITROGEN 15.1 mg/dL 07/20/2024 06:00 CREATININE 0.74 mg/dL 07/20/2024 06:00 CALCIUM 8.5 mg/dL 07/20/2024 06:00 CARBON DIOXIDE 20 L mEq/L 07/20/2024 06:00 GLUCOSE 121 H mg/dL 07/20/2024 06:00 EGFR (CKD-EPI 2020) 99.3 07/20/2024 06:00 WBC: 5.1 10*3/uL (07/20/24 20:00) HCT: 27.0 % L (07/20/24 20:00) HGB: HGB 9.2 L g/dL 07/20/2024 20:00 Plt: PLT 63 L 10*3/uL 07/20/2024 20:00 Other Labs and Data: Assessment/Plan: 68yo M w/ past medical history 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 Denied fevers, n/v, abdominal pain, chest pain, rash. In the ED, patient hypotensive to 80s and found to have acute anemia (Hgb 13 -> 7, plt 61 -> 44), significant leukocytosis 43 with lactate 8, mild RONNIE and INR 2s. SBP improved to 120s s/p 2L IVF. Received total of 3u pRBC (2u + 1U), 2u FFP, 1u platelets w/ Hgb stable ~8, plt 39, INR 1.5. CT abdomen w/o evidence of colitis. GI consulted, and EGD performed without evidence or stigmata of bleeding (redemonstrated mild esophageal varices, not banded). GI signed off with recs now that pt is stable. Leukocytosis (43 -> 7) and lactic acidosis (8 -> 1.3) resolved day after admission and likely iso SIRS from low volume/perfusion. Patient currently on ceftriaxone for SBP prophylaxis w/ plan for 5 day total abx course. Of note, CT chest showed SHANON cavitary nodule measuring up to 10mm w/ concern for potential metastatic lesion. Unclear if nodule correlates with 03/[address] and outpatient heme/onc Dr. Feliciano made aware. #Melena #ABLA Patient w/ reported black liquid stools, weakness since Keytruda initiation 07/13/24. Hgb 13 -> 7 on admission compared to one week ago. 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 Low likelihood of immunotherapy-related colitis given no evidence of inflammation on CT abdomen. Lower concern for hemolysis at this time (haptoglobin 93, LDH 305). 07/18 EGD without evidence of bleeding or stigmata of bleeding. - T&S, transfuse hgb > 7 - S/p 3u pRBC (2u + 1u), 2u FFP (initial INR 2.3), 1u platelets - GI consulted, appreciate recs - EGD negative, okay to resume diet, CTM - on propranolol at 5mg BID - PO PPI - f/u stool sample - Hgb 07/20 9.2 - ordering B12, folate, iron panel for further eval outpatient #Thrombocytopenia Plt 61 -> 44 on admission compared to one week ago. Received 1u platelets with repeat plt 39. No evidence of active bleeding at this time. Of note, CT abdomen with noted splenomegaly to 14.8cm, raising c/f sequestration - CTM - Transfuse plt > 10 given no active bleeding at this time #SIRS with lactic acidosis - resolved WBC 43 -> 7, lactate 8 -> 1.3 day after admission. Presentation likely related to low volume/underperfusion iso ABLA as above. Lower concern for sepsis at this time. Patient remains afebrile. 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 Infectious or inflammatory process vs metastatic lesion. Unclear if correlated to 04/23/[address] - Outpatient heme/onc Dr. Feliciano made aware and will f/u #Cirrhosis - appears mostly compensated, no PSE / ascites #Coagulopathy - INR 2s, unclear if 2/2 cirrhosis vs nutritional deficiency. S/p 2u FFP. 07/19 INR 1.5 #Mild RONNIE - resolved Cr 1.25 on admission. Most likely prerenal iso blood loss as above. S/p 2L IVF and transfusions. 07/19 Cr 0.94 - CTM Code: Full, NOK: VTE ppx: deferred 2/2 acute anemia Diet: puree diet Dispo: home /loly/ PRATIK KAUR Medical Student Signed: 07/21/2024 12:45 /loly/ Zahraa Abreu MD Staff Physician Cosigned: 07/21/2024 14:26 07/21/2024 ADDENDUM STATUS: COMPLETED This medical student's history-taking and examination was directly observed by Dr. Denson I independently re-performed the history, physical examination, and medical decision making. In addition, I have discussed the case with Dr. Denson and student Pratik Kaur and hereby attest to the accuracy of the student's note, including the history, physical examination, and medical decision making, with any exceptions or corrections noted here. Patient doing well today. He reports 1 small dark to black bowel movement but no new complaints. His hemoglobin is stable therefore we will discharge him home today. We are sending blood for B12, folate and iron studies. We will defer to PCP regarding possible supplementations (based on these test results). Home today. /loly/ Zahraa Abreu MD Staff Physician Signed: 07/21/2024 15:06 PRATIK KAUR [facility] Jul 21, 2024 09:00 AM NURSING INPATIENT NOTE: LOCAL TITLE: [facility] ACUTE INPATIENT NSG SHIFT ASSESSMENT STANDARD TITLE: NURSING INPATIENT NOTE DATE OF NOTE: JUL 21, 2024@09:00 ENTRY DATE: JUL 21, 2024@17:34:16 AUTHOR: JUAQUIN SALAZAR COSIGNER: URGENCY: STATUS: COMPLETED Version 2.2 Charting in accordance with [place] APPROVED [place] STANDARD (MSAES) ACUTE INPATIENT/REHABILITATION NURSING ADMISSION SCREENING, ASSESSMENT, AND STANDARDS OF CARE ASSESSMENT HANDOFF Bedside report and handoff completed Safety check completed PAIN ASSESSMENT Patient's acceptable pain goal: Are you currently experiencing pain? Yes - DVPRS scale used to assess Location: lower abdomen Defense and Veterans Pain Rating Scale (DVPRS): Pain Score: 5 BECKER FALL SCALE & TIPS PROGRAM Becker [...] Communicate recent fall or risk of harm Assistance out of bed: Call for assistance before getting out of bed Fall TIPS reviewed with patient: Yes Interventions: Communicate recent fall or risk of harm Assistance out of bed: Call for assistance before getting out of bed ENVIRONMENTAL SAFETY MANAGEMENT Implemented safety standards of care: -[place] to unit & environment -Adequate room lighting [...] and tracks objects. 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 Bilateral: Strong Upper Extremity Bilateral: Full strength Lower Extremity Bilateral: Sensation: Upper Extremity Sensation Bilateral: Intact Lower Extremity Sensation Bilateral: Intact Temperature: Upper Extremity Temperature Bilateral: Warm Lower Extremity Temperature Bilateral: Warm CARDIOVASCULAR Heart Sounds: Normal (S1S2) Heart Rate/Rhythm (without telemetry monitor): Regular RESPIRATORY Respirations: Unlabored Pattern: Regular Breath Sounds Auscultated: Anterior only Right Upper Lobe: Clear, Diminished Left Upper Lobe: Clear, Diminished Right Middle Lobe: Right Lower Lobe: Left Lower Lobe: GASTROINTESTINAL Last bowel movement: 07/20/2024 Bowel movement reported by patient-unwitnessed Elimination: Continent Abdominal Description: Protuberant (central obesity) Palpation: Soft Bowel Sounds: RUQ: Hypoactive LUQ: Hypoactive RLQ: Hypoactive LLQ: Hypoactive GENITOURINARY Elimination: Continent INTEGUMENTARY/SKIN/WOUND - (INCLUDING BAUTISTA) SEE NOTE: VAAES SKIN INPECTION/ASSESSMENT ACTIVITIES OF DAILY LIVING Hygiene ADLs: Dressing: Upper Body: Independent Lower Body: Independent Eating: Independent Foot Care: Inspection Hand Hygiene: Performed post toileting Performed pre meals/snacks Oral Care: Non-ventilator patient: Patient teeth brushed: Independently The [place] was educated that poor oral hygiene increases the risk of hospital acquired pneumonia and dental problems like gingivitis and tooth decay. [place] was educated using their preferred method and verbalized understanding. Oral Mucositis Scale: Oral mucositis (clinical exam): Grade 1 = Erythema of the mucosa Oral mucositis (functional/symptomatic): Grade 1 = Minimal symptoms, normal diet Pericare: Independent Personal Care: Independent Toileting: Independent MOBILITY Mobility Status: Independent: Able to stand and step without staff assistance Gait: Steady IV LINES Peripheral IV: Line #1: Assessment: Location: Left, Antecubital Gauge: 20 Dressing Condition: Clean, dry, intact Site Condition: No redness, swelling, pain Line Status: Line #2: Assessment: Location: Right, Antecubital Gauge: 22 Dressing Condition: Clean, dry, intact Site Condition: No redness, swelling, pain Line Status: Flushed PSYCHOSOCIAL Type of Emotional Support Provided: 1:1 discussion, Ventilation of feelings encouraged /es/ JEFF BRICE,RN REGISTERED NURSE Signed: 07/21/2024 17:39 JUAQUIN SALAZAR [facility] Jul 21, 2024 08:58 AM NURSING NOTE: LOCAL TITLE: [facility] SKIN INSPECTION/ASSESSMENT STANDARD TITLE: NURSING NOTE DATE OF NOTE: JUL 21, 2024@08:58 ENTRY DATE: JUL 21, 2024@17:41:43 AUTHOR: JUAQUIN SALAZAR EXP COSIGNER: URGENCY: STATUS: COMPLETED Assessment Type: [...] limited. Nutrition -- usual food intake patterns Very poor. Friction and shear No apparent problem. Localized abnormality: Bruising: Location(s): RIGHT FOREARM Comment: BLOOD DRAW Other: Location(s): BLE Comment: scattered scabs in both leg /loly/ JEFF BRICE,RN REGISTERED NURSE Signed: 07/21/2024 17:44 JUAQUIN SALAZAR [facility] Jul 21, 2024 08:55 AM NURSING INPATIENT NOTE: LOCAL TITLE: [facility] NURSING FREQUENT DOCUMENTATION STANDARD TITLE: NURSING INPATIENT NOTE DATE OF NOTE: JUL 21, 2024@08:55 ENTRY DATE: JUL 21, 2024@17:39:59 AUTHOR: JUAQUIN SALAZAR EXP COSIGNER: URGENCY: STATUS: COMPLETED Version 2.4 Charting in accordance with [facility] STANDARD ([facility]) ACUTE INPATIENT/REHABILITATION NURSING ADMISSION SCREENING, ASSESSMENT, AND STANDARDS OF CARE NATIONAL EARLY WARNING SCORE (NEWS) The vital signs below were used for scoring: Temperature: 97.7 Pulse: 72 Blood Pressure: 111/73 Respiration: 18 Pulse Oximetry: 100 The NEWS total is 0. 1. Temperature (C/F): Score = 0 36.1 - 38.0 C (96.9 - 100.4 F) 2. Pulse: Score = 0 51-90 3. Respirations: Score = 0 12-20 4. Blood Pressure (Only Systolic BP, mmHg): Score = 0 111-219 5. Pulse Oximetry: Score = 0 96% or greater 6. Supplemental oxygen in use: Score = 0 No 7. AVPU: Score = 0 Alert /loly/ JEFF BRICE,RN REGISTERED NURSE Signed: 07/21/2024 17:41 JUAQUIN SALAZAR [facility] Jul 21, 2024 04:15 AM NURSING INPATIENT NOTE: LOCAL TITLE: [facility] NURSING FREQUENT DOCUMENTATION STANDARD TITLE: NURSING INPATIENT NOTE DATE OF NOTE: JUL 21, 2024@04:15 ENTRY DATE: JUL 21, 2024@04:15:04 AUTHOR: GONZALO ASHFORD EXP COSIGNER: URGENCY: STATUS: COMPLETED Version 2.4 Charting in accordance with [facility] STANDARD ([facility]) ACUTE INPATIENT/REHABILITATION NURSING ADMISSION SCREENING, ASSESSMENT, AND STANDARDS OF CARE GENITOURINARY Elimination: Continent Color/Characteristic: Clear Yellow /JEFF Newsome, RN REGISTERED NURSE Signed: 07/21/2024 04:15 GONZALO ASHFORD [facility] Jul 21, 2024 02:47 AM NURSING INPATIENT NOTE: LOCAL TITLE: [facility] PATIENT SAFETY CHECK STL STANDARD TITLE: NURSING INPATIENT NOTE DATE OF NOTE: JUL 21, 2024@02:47 ENTRY DATE: JUL 21, 2024@02:47:07 AUTHOR: GONZALO ASHFORD EXP COSIGNER: URGENCY: STATUS: COMPLETED BEDSIDE SAFETY CHECK STL A visual sweep of the patient's room for any physical or environmental safety concerns was completed and education provided to patient regarding their personal safety concerns. Comment: PT ASLEEP, APPEARS COMFORYABLE, NO DISTRESS NOTED, RR EVEN AND UNLABORED, CALL LIGHT WITH IN REACH, BED IN LOCKED LOW POSITION /JEFF Newsome, RN REGISTERED NURSE Signed: 07/21/2024 02:48 GONZALO ASHFORD [facility] Jul 21, 2024 02:44 AM NURSING INPATIENT NOTE: LOCAL TITLE: [facility] ACUTE INPATIENT NSG SHIFT ASSESSMENT STANDARD TITLE: NURSING INPATIENT NOTE DATE OF NOTE: JUL 21, 2024@02:44 ENTRY DATE: JUL 21, 2024@02:44:18 AUTHOR: DEJONGONZALO Radha GILMAN COSIGNER: URGENCY: STATUS: COMPLETED Version 2.2 Charting in accordance with [place] APPROVED [place] STANDARD ([facility]) ACUTE INPATIENT/REHABILITATION NURSING ADMISSION SCREENING, ASSESSMENT, AND STANDARDS OF CARE REASSESSMENT NEUROLOGICAL Neurological Orientation: Oriented x4 Level of Consciousness (AVPU): 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 Bilateral: Strong Upper Extremity Bilateral: Full strength Lower Extremity Bilateral: Full strength CARDIOVASCULAR Heart Rate/Rhythm (without telemetry monitor): Regular Edema: None RESPIRATORY Respirations: Unlabored Pattern: Regular Symptoms: Cough: Productive GASTROINTESTINAL Elimination: Continent GENITOURINARY Elimination: Continent INTEGUMENTARY/SKIN/WOUND - (INCLUDING BAUTISTA) SEE NOTE: VAAES SKIN INPECTION/ASSESSMENT /JEFF Newsome, RN REGISTERED NURSE Signed: 07/21/2024 02:46 GONZALO ASHFORD [facility] Jul 21, 2024 01:38 AM NURSING TREATMENT PLAN NOTE: LOCAL TITLE: [facility] PLAN OF CARE STANDARD TITLE: NURSING TREATMENT PLAN NOTE DATE OF NOTE: JUL 21, 2024@01:38 ENTRY DATE: JUL 21, 2024@01:38:40 AUTHOR: GONZALO ASHFORD EXP COSIGNER: URGENCY: STATUS: COMPLETED Plan of Care and Discharge Plan (nurse) TREATMENT PLAN NURSING DIAGNOSIS: Alterations in bowel elimination: Diarrhea Goals: *Prior to discharge, patient will: --Will be free of symptom of malabsorbtion evidenced by soft-semisoft stool. --Have regular soft-formed stool Interventions:--Identify with patient his/her usual bowel elimination habits.(MD ROSAMARIA), --Assess for abdominal distention, bowel sound EVERY SHIFT as indicated.(MD ROSAMARIA), --Record intake and output accurately to ensure correct fluid replacement.(Nursing) Care plan status: Continued Progress toward goals documented continuously through progress notes Patient Education (Nursing, SWS, PT/OT, Film Editor Supervisor, Rod Pointer, & Physician) Instruct as to:--Discuss dietary compliance in treatment of malabsorbtive disorder. /JEFF Newsome, RN REGISTERED NURSE Signed: 07/21/2024 01:43 GONZALO ASHFORD [facility] Jul 20, 2024 09:26 PM NURSING NOTE: LOCAL TITLE: [facility] SKIN INSPECTION/ASSESSMENT STANDARD TITLE: NURSING NOTE DATE OF NOTE: JUL 20, 2024@21:26 ENTRY DATE: JUL 20, 2024@21:26:46 AUTHOR: GONZALO ASHFORD EXP COSIGNER: URGENCY: STATUS: COMPLETED Assessment Type: SKIN REINSPECTION/REASSESSMENT SKIN INSPECTION: Skin Color: Usual for ethnicity Skin Temperature: Warm Skin Moisture: Normal Skin Turgor: Elastic (normal/immediate) Bautista Skin Assessment: The patient's Bautista Scale Score is 22. The patient is considered not at risk [...] limitation. Nutrition -- usual food intake patterns Adequate. Friction and shear No apparent problem. INTERVENTIONS: The pressure injury interventions were not needed - patient/resident is not at risk. SKIN INTEGRITY: Intact /es/ GONZALO ASHFORD, BSN, RN REGISTERED NURSE Signed: 07/20/2024 21:27 GONZALO ASHFORD [facility] Jul 20, 2024 09:23 PM NURSING INPATIENT NOTE: LOCAL TITLE: [facility] ACUTE INPATIENT NSG SHIFT ASSESSMENT STANDARD TITLE: NURSING INPATIENT NOTE DATE OF NOTE: JUL 20, 2024@21:23 ENTRY DATE: JUL 20, 2024@21:23:50 AUTHOR: GONZALO ASHFORD EXP COSIGNER: URGENCY: STATUS: COMPLETED Version 2.2 Charting in accordance with [place] APPROVED [place] STANDARD (MSAES) ACUTE INPATIENT/REHABILITATION NURSING ADMISSION SCREENING, ASSESSMENT, AND STANDARDS OF CARE ASSESSMENT HANDOFF Bedside report and handoff completed Safety check completed PAIN ASSESSMENT Patient's acceptable pain goal: Are you currently experiencing pain? No: Pain [...] Status: Oriented to own ability/knows own limitations ENVIRONMENTAL SAFETY MANAGEMENT Implemented safety standards of care: -[place] to unit & environment -Adequate room lighting [...] commands, opens eyes spontaneously, and tracks objects. 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 Edema: None RESPIRATORY Respirations: Unlabored Pattern: Regular Breath Sounds Auscultated: Left Upper Lobe: Clear Right Upper Lobe: Clear Right Middle Lobe: Clear Left Lower Lobe: Clear Right Lower Lobe: Clear Right Upper Lobe: Left Upper Lobe: Right Middle Lobe: Right Lower Lobe: Diminished Left Lower Lobe: Diminished GASTROINTESTINAL Elimination: Continent Palpation: Soft, Non-tender Bowel Sounds: RUQ: Active LUQ: Active RLQ: Active LLQ: Active GENITOURINARY Elimination: Continent INTEGUMENTARY/SKIN/WOUND - (INCLUDING BAUTISTA) SEE NOTE: VAAES SKIN INPECTION/ASSESSMENT ACTIVITIES OF DAILY LIVING Hygiene ADLs: Oral Care: Non-ventilator patient: Swabbing performed-Patient edentulous (lacking teeth) MOBILITY Mobility Status: Independent: Gait: Steady IV LINES Peripheral IV: Line #1: Assessment: Location: Left, Forearm Gauge: 20 Dressing Condition: Clean, dry, intact Site Condition: No redness, swelling, pain Line Status: Line #2: Assessment: Location: Right, Antecubital Gauge: 22 Dressing Condition: Clean, dry, intact Site Condition: No redness, swelling, pain Line Status: /loly/ JEFF CASTILLO, RN REGISTERED NURSE Signed: 07/20/2024 21:26 GONZALO ASHFORD [facility] Jul 20, 2024 06:05 PM NURSING INPATIENT NOTE: LOCAL TITLE: [facility] NURSING FREQUENT DOCUMENTATION STANDARD TITLE: NURSING INPATIENT NOTE DATE OF NOTE: JUL 20, 2024@18:05 ENTRY DATE: JUL 20, 2024@18:05:53 AUTHOR: DUDLEY DAVID COSIGNER: URGENCY: STATUS: COMPLETED Version 2.4 Charting in accordance with [facility] STANDARD ([facility]) ACUTE INPATIENT/REHABILITATION NURSING ADMISSION SCREENING, ASSESSMENT, AND STANDARDS OF CARE NATIONAL EARLY WARNING SCORE (NEWS) The following vital measurements were used to complete the NEWS. Measurement DT TEMP PULSE RESP BP POx F(C) (L/MIN)(%) 07/20/2024 18:04 98.4(36.9) 70 18 143/81 99 The NEWS total is 0. 1. Temperature (C/F): Score = 0 36.1 - 38.0 C (96.9 - 100.4 F) 2. Pulse: Score = 0 51-90 3. Respirations: Score = 0 12-20 4. Blood Pressure (Only Systolic BP, mmHg): Score = 0 111-219 5. Pulse Oximetry: Score = 0 96% or greater 6. Supplemental oxygen in use: Score = 0 No 7. AVPU: Score = 0 Alert /es/ JEFF WALLS, RN REGISTERED NURSE Signed: 07/20/2024 18:10 DUDLEY DAVID [facility] Jul 20, 2024 05:53 PM NURSING INPATIENT NOTE: LOCAL TITLE: [facility] ACUTE INPATIENT NSG SHIFT ASSESSMENT STANDARD TITLE: NURSING INPATIENT NOTE DATE OF NOTE: JUL 20, 2024@17:53 ENTRY DATE: JUL 20, 2024@17:54:01 AUTHOR: DUDLEY DAVID EXP COSIGNER: URGENCY: STATUS: COMPLETED Version 2.2 Charting in accordance with [facility] STANDARD (MSAES) ACUTE INPATIENT/REHABILITATION NURSING ADMISSION SCREENING, ASSESSMENT, AND STANDARDS OF CARE ASSESSMENT HANDOFF Bedside report and handoff completed Safety check completed PAIN ASSESSMENT Patient's acceptable pain goal: Are you currently experiencing pain? No: BECKER FALL SCALE & TIPS PROGRAM Becker Fall Scale: The Becker Fall scale was performed and score was 0. This is indicative of low risk of falls. History of falling: immediate or within 3 months? No Secondary diagnosis: No Ambulatory aid: None/bedrest/nurse assist Intravenous therapy/Heparin lock: No Gait/Transferring: Normal/bed rest/immobile Mental Status: Oriented to own ability/knows own limitations ENVIRONMENTAL SAFETY MANAGEMENT Implemented safety standards of care: -[place] to unit & environment -Adequate room lighting [...] and tracks objects. 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 Edema: None RESPIRATORY Respirations: Unlabored Pattern: Regular Breath Sounds Auscultated: Anterior only Left Upper Lobe: Clear Right Upper Lobe: Clear Right Middle Lobe: Clear Left Lower Lobe: Clear Right Lower Lobe: Clear GASTROINTESTINAL Last bowel movement: 07/20/2024 Abdominal Description: Flat GENITOURINARY Elimination: Continent INTEGUMENTARY/SKIN/WOUND - (INCLUDING BAUTISTA) SEE NOTE: VAAES SKIN INPECTION/ASSESSMENT ACTIVITIES OF DAILY LIVING Hygiene ADLs: Oral Care: Non-ventilator patient: Patient teeth brushed: Independently MOBILITY Mobility Status: Independent: Able to stand and step without staff assistance Gait: Steady IV LINES Peripheral IV: Line #1: Assessment: Location: Right, Antecubital Gauge: 22 Dressing Condition: Clean, dry, intact Site Condition: No redness, swelling, pain Line Status: Patent/infusing Flushed PSYCHOSOCIAL Type of Emotional Support Provided: 1:1 discussion, Treatment discussion /es/ JEFF WALLS RN REGISTERED NURSE Signed: 07/20/2024 18:03 UDDLEY DAVID [facility] Jul 20, 2024 05:51 PM NURSING NOTE: LOCAL TITLE: [facility] SKIN INSPECTION/ASSESSMENT STANDARD TITLE: NURSING NOTE DATE OF NOTE: JUL 20, 2024@17:51 ENTRY DATE: JUL 20, 2024@17:52:10 AUTHOR: DULDEY DAVID EXP COSIGNER: URGENCY: STATUS: COMPLETED Assessment Type: SKIN REINSPECTION/REASSESSMENT SKIN INSPECTION: Skin Color: Usual for ethnicity Skin Temperature: Warm Skin Moisture: Dry Skin Turgor: Elastic (normal/immediate) Bautista Skin Assessment: [...] Activity As Tolerated Vaaes Pressure Injury Interventions 07/19/2024 Vaaes Pressure Injury Int Not Needed RISK FACTORS THAT INCREASE RISK FOR DEVELOPING PRESSURE INJURIES The patient/resident does not have any additional risk factors. SKIN INTEGRITY: Intact /es/ JEFF WALLS, RN REGISTERED NURSE Signed: 07/20/2024 17:53 DUDLEY DAVID [facility] Jul 20, 2024 05:50 PM NURSING TRANSFER SUMMARIZATION NOTE: LOCAL TITLE: JEY TRANSFER ACCEPTANCE FORM STL STANDARD TITLE: NURSING TRANSFER SUMMARIZATION NOTE DATE OF NOTE: JUL 20, 2024@17:50 ENTRY DATE: JUL 20, 2024@17:50:40 AUTHOR: DUDLEY DAVID EXP COSIGNER: URGENCY: STATUS: COMPLETED NURSING ADMISSION ASSESSMENT Admitted to: 6N Date/Time of Arrival: Jun ID Band on: YES Allergy Band: Yes ARRIVAL INFORMATION Mode of Arrival: WHEELCHAIR Accompanied by: Clinic Staff Status changed from transferring unit: NO /loly/ JEFF WALLS, RN REGISTERED NURSE Signed: 07/20/2024 17:51 DUDLEY DAVID [facility] Jul 20, 2024 05:30 PM NURSING TRANSFER SUMMARIZATION DISCHARGE NOTE: LOCAL TITLE: JEY DISCHARGE/TRANSFER SUMMARY ST STANDARD TITLE: NURSING TRANSFER SUMMARIZATION DISCHARGE NOTE DATE OF NOTE: JUL 20, 2024@17:30 ENTRY DATE: JUL 20, 2024@18:37:48 AUTHOR: HÉCTOR FAULKNER EXP COSIGNER: URGENCY: STATUS: COMPLETED DISCHARGE - TRANSFER SUMMARY Action: Transfer Diagnosis: Last Admission: 07/17/24 7:35:25 pm Admit Dx: ACUTE BLOOD LOSS ANEMIA Age: 68 Allergies: Patient has answered NKA Patient Condition: Stable Vital Signs: Temperature: 98.4 F [36.9 C] (07/20/2024 18:04) Pulse: 70 (07/20/2024 18:04) Respiration: 18 (07/20/2024 18:04) Blood Pressure: 143/81 (07/20/2024 18:04) Pain: 0 (07/20/2024 18:04) Fall Risk Assessment Score: Fall Risk Level: No Risk SUICIDE SCREEN Result of C-SSRS screener done was NEGATIVE. C-SSRS Screen is Negative LEVEL OF LIFT REQUIRED: No assistance Safe Patient Handling - Patient Mobility Assessment Tool Isolation: No Precautions: None Orientation: x3 Hygiene: Self Care Nutrition: Modified Diet: soft bite size Special needs: Assistance: Independent Bowel/Bladder: Date of last bowel movement: Jun Defecation: Normal Able to void: YES Continent: YES Catheter: No Wound / Skin Condition: Assessment Type: INITIAL SKIN INSPECTION/ASSESSMENT SKIN INSPECTION: [...] Activity As Tolerated Vaaes Pressure Injury Interventions 07/19/2024 Vaaes Pressure Injury Int Not Needed SKIN INTEGRITY: Intact STANDARD OF CARE / PRACTICE IMPLEMENTED: Indicate status at Discharge/Transfer: Resolved Flu Shot Given: No Patient refused Pneumococcal Shot Given: No Patient refused MRSA Discharge Swab Done: No Reason: ref Discharged/Transfered to: Transfer to Accompanied by (Name & Relationship): notfied via pt Next of Kin notified: YES Discharge/Transfer Mode: Wheelchair Discharged/Transferred with: Medications Clothing / Valuables returned: Yes Describe: clothes, jacket, phone chargers, shoes Prosthetics with patient: Dentures/Partials with patient: None Glasses with patient: YES Other: Printed MD Instruction sheet with medication list reviewed and given to the patient/caregiver. Patient/Caregiver verifies medication list is complete and accurate. /loly/ SONJA AGUILAR, RN REGISTERED NURSE Signed: 07/20/2024 18:40 CAMI FAULKNER [facility] Jul 20, 2024 12:21 PM INTERNAL MEDICINE INPATIENT NOTE: LOCAL TITLE: MEDICINE GENERAL INPATIENT NOTE STANDARD TITLE: INTERNAL MEDICINE INPATIENT NOTE DATE OF NOTE: JUL 20, 2024@12:21 ENTRY DATE: JUL 20, 2024@12:21:30 AUTHOR: PRATIK KAUR COSIGNER: RAMSES JEAN URGENCY: STATUS: COMPLETED MEDICINE GENERAL INPATIENT NOTE Has ADDENDA 68 year old MALE admitted on Jun 19:35 for Last Admission: 07/17/24 7:35:25 pm Admit Dx: ACUTE BLOOD LOSS ANEMIA. Interval Events: - no acute complaints, denies chest pain, abdominal pain, fever/chills - no BM since admission Plan: - f/u CBC, BMP results this AM - transfuse for Hgb > 7 - Continue ceftriaxone today, switch to bactrim for remaining course outpatient, will keep pt on regimen for 7d per variceal bleeding antibiotics prophylaxis guidelines - f/u stool PCR - encourage pt to ambulate today with assistance Active Inpatient Medications: 1) PHYTONADIONE TAB PO QDAILY 10MG 2) POLYETHYLENE GLYCOL 3350 PKT POWDER,ORAL PO ONE-TIME 1 PACKET 3) ONDANSETRON INJ,SOLN IVP Q6H PRN 4MG/2ML 4) CALCIUM CARBONATE TAB,CHEWABLE PO Q6H PRN 1500MG 5) ACETAMINOPHEN TAB PO QID PRN for pain 1st line 6) PANTOPRAZOLE TAB,EC PO BID AC 7) PROPRANOLOL (IMMEDIATE RELEASE) TAB PO BID 5MG 8) CEFTRIAXONE 1GM/BAG INJ,SOLN IVPB Q24H through 07/22 Vital Signs: Pulse: 108 (07/17/2024 17:30) BP: 119/77 (07/17/2024 17:30) RESP: 17 (07/17/2024 16:10) Pain: 3 (07/19/2024 10:08) Weight: 161.2 lb [73.12 kg] (05/11/2024 14:21) PHYSICAL EXAM: General: NAD Skin: no rashes on exposed skin HEENT: MMM, NCAT, no icterus. Lungs: non-labored respirations, CTAB Cardiovascular: RRR, normal S1/S2 Abdominal: soft, nondistended, mildly tender to palpation in hypogastric region Extremities: warm, no LE edema. Musculoskeletal: grossly normal ROM Neuro: A&Ox4 Psych: normal mood, normal affect PICC lines placed at both elbows Recent Labs: BASIC METABOLIC PANEL: SODIUM 129 L mEq/L 07/19/2024 06:00 POTASSIUM 3.4 L mEq/L 07/19/2024 06:00 CHLORIDE 102 mEq/L 07/19/2024 06:00 UREA NITROGEN 23.8 mg/dL 07/19/2024 06:00 CREATININE 0.94 mg/dL 07/19/2024 06:00 CALCIUM 8.1 L mg/dL 07/19/2024 06:00 CARBON DIOXIDE 20 L mEq/L 07/19/2024 06:00 GLUCOSE 87 mg/dL 07/19/2024 06:00 EGFR (CKD-EPI 2020) 88.9 07/19/2024 06:00 WBC: 5.1 10*3/uL (07/19/24 06:00) HCT: 22.9 % L (07/19/24 06:00) HGB: HGB 8.0 L g/dL 07/19/2024 06:00 Plt: PLT 39 L 10*3/uL 07/19/2024 06:00 Assessment/Plan: 68yo M w/ past medical history 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 Denied fevers, n/v, abdominal pain, chest pain, rash. In the ED, patient hypotensive to 80s and found to have acute anemia (Hgb 13 -> 7, plt 61 -> 44), significant leukocytosis 43 with lactate 8, mild RONNIE and INR 2s. SBP improved to 120s s/p 2L IVF. Received total of 3u pRBC (2u + 1U), 2u FFP, 1u platelets w/ Hgb stable ~8, plt 39, INR 1.5. CT abdomen w/o evidence of colitis. GI consulted, and EGD performed without evidence or stigmata of bleeding (redemonstrated mild esophageal varices, not banded). GI signed off with recs now that pt is stable. Leukocytosis (43 -> 7) and lactic acidosis (8 -> 1.3) resolved day after admission and likely iso SIRS from low volume/perfusion. Patient currently on ceftriaxone for SBP prophylaxis w/ plan for 5 day total abx course. Of note, CT chest showed SHANON cavitary nodule measuring up to 10mm w/ concern for potential metastatic lesion. Unclear if nodule correlates with 03/[address] and outpatient heme/onc Dr. Feliciano made aware. #Melena #ABLA Patient w/ reported black liquid stools, weakness since Keytruda initiation 07/13/24. Hgb 13 -> 7 on admission compared to one week ago. 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 Low likelihood of immunotherapy-related colitis given no evidence of inflammation on CT abdomen. Lower concern for hemolysis at this time (haptoglobin 93, LDH 305). 07/18 EGD without evidence of bleeding or stigmata of bleeding. - T&S, transfuse hgb > 7 - S/p 3u pRBC (2u + 1u), 2u FFP (initial INR 2.3), 1u platelets - GI consulted, appreciate recs - EGD negative, okay to resume diet, CTM - on propranolol at 5mg BID - PO PPI - f/u stool sample #Thrombocytopenia Plt 61 -> 44 on admission compared to one week ago. Received 1u platelets with repeat plt 39. No evidence of active bleeding at this time. Of note, CT abdomen with noted splenomegaly to 14.8cm, raising c/f sequestration - CTM - Transfuse plt > 10 given no active bleeding at this time #SIRS with lactic acidosis - resolved WBC 43 -> 7, lactate 8 -> 1.3 day after admission. Presentation likely related to low volume/underperfusion iso ABLA as above. Lower concern for sepsis at this time. Patient remains afebrile. 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 Infectious or inflammatory process vs metastatic lesion. Unclear if correlated to 04/23/[address] - Outpatient heme/onc Dr. Feliciano made aware and will f/u #Cirrhosis - appears mostly compensated, no PSE / ascites #Coagulopathy - INR 2s, unclear if 2/2 cirrhosis vs nutritional deficiency. S/p 2u FFP. 07/19 INR 1.5 #Mild RONNIE - resolved Cr 1.25 on admission. Most likely prerenal iso blood loss as above. S/p 2L IVF and transfusions. 07/19 Cr 0.94 - CTM Code: Full, NOK: VTE ppx: deferred 2/2 acute anemia Diet: puree diet Dispo: home /loly/ PRATIK KAUR Medical Student Signed: 07/20/2024 12:30 /loly/ RAMSES JEAN MD Attending Physician - Internal Medicine Cosigned: 07/20/2024 15:31 07/20/2024 ADDENDUM STATUS: COMPLETED This medical student's history-taking and examination was directly observed by Dr. Maya. I independently re-performed the history, physical examination, and medical decision making. In addition, I have discussed the case with Dr. Maya and student Pratik Kaur and hereby attest to the accuracy of the student's note, including the history, physical examination, and medical decision making, with any exceptions or corrections noted here. /loly/ RAMSES JEAN MD Attending Physician - Internal Medicine Signed: 07/20/2024 15:31 PRATIK KAUR [facility] Jul 20, 2024 10:48 AM NUTRITION DIETETICS NOTE: LOCAL TITLE: NUTRITION FOLLOW UP STL STANDARD TITLE: NUTRITION DIETETICS NOTE DATE OF NOTE: JUL 20, 2024@10:48 ENTRY DATE: JUL 20, 2024@10:48:56 AUTHOR: BELEN NAJERA EXP COSIGNER: LANIE YUAN URGENCY: STATUS: COMPLETED AREA: The supervising RD is in the same physical area and is immediately accessible to the nutrition internship. Nutrition Assessment Modality of Care: Face to face Worn by employee Face mask SGA (brief) Nutrition risk per subjective global assessment (SGA) SGA rating is >5 indicating nutrition problem. 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 reports eating ~25% of 3 meals a day, supported by ICU flowsheet reports. Pt. has brought in his own Boost supplements, and reports consuming (1) 07/19 and plans to have (2) today 07/20. Medications and Herbal Supplements: PHYTONADIONE TAB PO QDAILY 10MG PANTOPRAZOLE INJ,PWDR IV BID 40MG ONDANSETRON INJ,SOLN IVP Q6H PRN 4MG/2ML CALCIUM CARBONATE TAB,CHEWABLE PO Q6H PRN 1500MG Anthropometric Measurements: Ht: 72 in [182.9 cm] (07/26/2023 08:00) Wt: 161.2 lb [73.12 kg] (05/11/2024 14:21) BMI: 21.9 Weight History/Significant changes: Patient Weight History - Last Four 1. 161.2 lbs. / 73.1 kg. on MAY 11, 2024@14:21:46 2. 160.7 lbs. / 72.9 kg. on APR 23, 2024@13:29:38 3. 161.7 lbs. / 73.4 kg. on JAN 13, 2024@11:14:56 4. 160.4 lbs. / 72.8 kg. on JAN 02, 2024@11:40:15 No recent weight data available. Biochemical Data/Med tests and procedures: LABS: SODIUM 129 L mEq/L 07/19/2024 06:00 POTASSIUM 3.4 L mEq/L 07/19/2024 06:00 CALCIUM 8.1 L mg/dL 07/19/2024 06:00 PROTEIN 5.2 L g/dL 07/18/2024 06:00 ALBUMIN 2.6 L g/dL 07/18/2024 06:00 TOTAL BILIRUBIN 1.6 H mg/dL 07/18/2024 06:00 CARBON DIOXIDE 20 L mEq/L 07/19/2024 06:00 PHOSPHOROUS 2.2 L mg/dL 07/18/2024 06:00 ACCU-CKS: GLUCOSE,BLOOD-poct (STL) 98 mg/dL 07/17/2024 19:36 GLUCOSE,BLOOD-poct (STL) 117 H mg/dL 04/23/2024 11:26 GLUCOSE,BLOOD-poct (STL) 118 H mg/dL 01/16/2024 11:09 GLUCOSE,BLOOD-poct (STL) 106 H mg/dL 07/28/2023 08:46 Social history: Per previous notes, pt. lives at home with his . Reports she will be bringing him garlic salt to help with flavor of food. Knowledge, beliefs and attitudes: Pt. was alert and open to discussing his diet. States that he has never been a big eater , but that he feels his appetite improving. Reported enjoying the eggs on his breakfast tray. 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 Nutrition Focused Physical Findings: Pt. showed mild muscle wasting of the clavicles and deltoids, shoulders appearing squared off. Edentulous, and does not have his dentures with him currently. He reports that they would not fit anyway now d/t swelling in his mouth. Pt. reports he has not yet had a BM and that he is prone to constipation. Also reports xerostomia prevalent since radiation treatment. 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 ACTIVE: Unbalanced diet pattern related to Limited physical ability (chewing difficulty/discomfort) evidenced by Conditions associated with a diagnosis or treatment that might contribute to unbalanced diet pattern (edentulous, hx of head and neck cancer), and negative emotions about food and nutrition (distrust of foods other than Boost). NUTRITION INTERVENTIONS: DIET RECOMMENDATIONS Continue Regular diet order with PUREE texture modification, per speech recommendations Meals and Snacks: -Food preferences updated in Computrition to improve PO intake -Prune juice added to trays BID to help address constipation -2x eggs added to breakfast trays to improve kcal/protein intake and pt. satisfaction -Pt. is currently receiving: -3 meals/day: ~3895kcal, 141gPro -2 Boosts/day: ~720kcal, 28gPro -Total: 4415kcal, 160gPro -With pt. consuming 25% of trays and 100% of 2 Boosts/day, he is currently consuming 1694kcal, 63gPro Commercial beverage medical food supplement therapy: -d/c Ensure TID, continue drinking preferred Boost supplements BID Content related nutrition education: -Highlighted the importance of adequate PO intake, focusing on high protein foods, to assist with overall healing and cirrhosis dx -Encouraged pt. to continue trying regular foods and using oral supplements to fill in nutritional gaps -Encouraged adequate liquid intake to help address dry mouth Barriers to learning: None Comprehension: Good, verbalized understanding NUTRITION MONITORING AND EVALUATION Estimated percent of meals eaten in 24 hours -Pt. to consume >25% of 3 meals a day before follow-up appointment in 3 days-NEW GOAL Estimated percent of ONS consumed in 24 hours -Pt. to consume 100% of 2 Boost supplements a day before follow-up appointment in 3 days-NEW GOAL Diet order: [place] to tolerate new diet order by next follow-up appointment in 3 days-GOAL MET, DISCONTINUE Follow up date: Jun /loly/ BELEN NAJERA Grinder Operator Automatic Signed: 07/20/2024 14:17 /loly/ Lanie Yuan RD, LD, [facility] Clinical Dietitian Cosigned: 07/20/2024 14:28 BELEN NAJERA [facility] Jul 20, 2024 08:17 AM NURSING NOTE: LOCAL TITLE: [facility] SKIN INSPECTION/ASSESSMENT STANDARD TITLE: NURSING NOTE DATE OF NOTE: JUL 20, 2024@08:17 ENTRY DATE: JUL 20, 2024@13:18:02 AUTHOR: HÉCTOR FAULKNER EXP COSIGNER: URGENCY: STATUS: COMPLETED VAAES SKIN INSPECTION/ASSESSMENT Has ADDENDA Assessment Type: INITIAL SKIN INSPECTION/ASSESSMENT SKIN INSPECTION: [...] Activity As Tolerated Vaaes Pressure Injury Interventions 07/19/2024 Vaaes Pressure Injury Int Not Needed SKIN INTEGRITY: Intact /es/ SONJA AGUILAR, RN REGISTERED NURSE Signed: 07/20/2024 13:18 07/20/2024 ADDENDUM STATUS: COMPLETED Skin assessed, no change from previous assessment /es/ SONJA AGUILAR, RN REGISTERED NURSE Signed: 07/20/2024 13:19 CAMI FAULKNER [facility] Jul 19, 2024 11:12 PM NURSING NOTE: LOCAL TITLE: VAAES SKIN INSPECTION/ASSESSMENT STANDARD TITLE: NURSING NOTE DATE OF NOTE: JUL 19, 2024@23:12 ENTRY DATE: JUL 19, 2024@23:12:47 AUTHOR: YONY BATES EXP COSIGNER: URGENCY: STATUS: COMPLETED VAAES SKIN INSPECTION/ASSESSMENT Has ADDENDA Assessment Type: INITIAL SKIN INSPECTION/ASSESSMENT SKIN INSPECTION: [...] ability to change and control body position Chair fast. Mobility -- ability to change and control body position Slightly limited. Nutrition -- usual food intake patterns Very poor. Friction and shear No apparent problem. INTERVENTIONS: New or changed pressure ulcer/injury interventions or medical condition. Education: Teach patient/caregiver importance of changing position frequently for pressure ulcer/injury prevention. Pressure-Redistribution measures: Encourage small, frequent position changes Use specialty bed, mattress and/or overlay: Specify type: ICU bed Maximize mobilization: Encourage activity as tolerated Manage moisture: Maintain clean and dry skin Manage nutrition: Encourage eating and assist with meals Monitor fluid/food intake Offer liquids every two hours when turning patient or as needed Offer ordered supplements Reduce friction and shear: Keep head of bed at or below 30 degrees when not eating SKIN INTEGRITY: Intact /JEFF Mata,RN REGISTERED NURSE Signed: 07/19/2024 23:14 07/20/2024 ADDENDUM STATUS: COMPLETED no changes to previously charted skin assessment. /JEFF Mata,RN REGISTERED NURSE Signed: 07/20/2024 05:02 07/20/2024 ADDENDUM STATUS: COMPLETED no changes to previously noted skin assessment. /JEFF Mata,RN REGISTERED NURSE Signed: 07/20/2024 05:05 YONY BATES [facility] Jul 19, 2024 11:11 PM NURSING INPATIENT NOTE: LOCAL TITLE: [facility] NURSING FREQUENT DOCUMENTATION STANDARD TITLE: NURSING INPATIENT NOTE DATE OF NOTE: JUL 19, 2024@23:11 ENTRY DATE: JUL 19, 2024@23:11:58 AUTHOR: YONY BATES EXP COSIGNER: URGENCY: STATUS: COMPLETED Version 2.4 Charting in accordance with [place] APPROVED [place] STANDARD (VAAES) ACUTE INPATIENT/REHABILITATION NURSING ADMISSION SCREENING, ASSESSMENT, AND STANDARDS OF CARE ORAL INTAKE (PERCENTAGE OF MEAL EATEN) Dinner: 1% - 25% Reasons for Inadequate Intake: Chewing/Swallowing Problems Poor Appetite Preferences/Dislikes /loly/ JEFF ELIAS,RN REGISTERED NURSE Signed: 07/19/2024 23:12 YONY BATES [facility] Jul 19, 2024 02:57 PM NURSING NOTE: LOCAL TITLE: JEY PROGRESS NOTE STL STANDARD TITLE: NURSING NOTE DATE OF NOTE: JUL 19, 2024@14:57 ENTRY DATE: JUL 19, 2024@14:57:57 AUTHOR: PRASANNA OG COSIGNER: URGENCY: STATUS: COMPLETED RN discussed PO intake with patient; patient is not eating anything off meal trays. Patient adamant that he only needs BOOST protein drinks and that is enough to sustain him. Patient expressed fears and concerns about the food people eat making them sick and that he didn't feel any other oral supplementation was necessary. RN notes PO potassium that had been given to patient in the morning with breakfast still in cup at bedside. RN asked patient if he was going to be able to take medication, patient replied I'll try I guess. /loly/ PRASANNA AGUILAR RN REGISTERED NURSE Signed: 07/19/2024 15:08 PRASANNA OG [facility] Jul 19, 2024 01:49 PM INTERNAL MEDICINE INPATIENT NOTE: LOCAL TITLE: MEDICINE GENERAL INPATIENT NOTE STANDARD TITLE: INTERNAL MEDICINE INPATIENT NOTE DATE OF NOTE: JUL 19, 2024@13:49 ENTRY DATE: JUL 19, 2024@13:50:10 AUTHOR: PRATIK KAUR EXP COSIGNER: RAMSES JEAN URGENCY: STATUS: COMPLETED MEDICINE GENERAL INPATIENT NOTE Has ADDENDA 68 year old MALE admitted on Jun 19:35 for Last Admission: 07/17/24 7:35:25 pm Admit Dx: ACUTE BLOOD LOSS ANEMIA. Interval Events: - pt transferred from MICU - no acute complaints, denies chest pain, abdominal pain, fever/chills - no BM since admission - Hgb stable 8.0, plt 44 -> 39 s/p 1u platelet transfusion Plan: - transfuse for Hgb > 7 - Continue ceftriaxone to 07/21 for total 5d abx course - f/u stool PCR - switch PPI to PO - restart propanolol Active Inpatient Medications: 1) PHYTONADIONE TAB PO QDAILY 10MG 2) PANTOPRAZOLE INJ,PWDR IV BID 40MG 3) ONDANSETRON INJ,SOLN IVP Q6H PRN 4MG/2ML 4) CALCIUM CARBONATE TAB,CHEWABLE PO Q6H PRN 1500MG 5) ACETAMINOPHEN TAB PO QID PRN for pain 1st line 6) CEFTRIAXONE 1GM/BAG INJ,SOLN IVPB Q24H through 07/22 Vital Signs: Pulse: 108 (07/17/2024 17:30) BP: 119/77 (07/17/2024 17:30) RESP: 17 (07/17/2024 16:10) Pain: 3 (07/19/2024 10:08) Weight: 161.2 lb [73.12 kg] (05/11/2024 14:21) PHYSICAL EXAM: General: NAD Skin: no rashes on exposed skin HEENT: MMM, NCAT, no icterus. Lungs: non-labored respirations, CTAB Cardiovascular: RRR, normal S1/S2 Abdominal: soft, nondistended, mildly tender to palpation in hypogastric region Extremities: warm, no LE edema. Musculoskeletal: grossly normal ROM Neuro: A&Ox4 Psych: normal mood, normal affect PICC lines placed at both elbows Recent Labs: BASIC METABOLIC PANEL: SODIUM 129 L mEq/L 07/19/2024 06:00 POTASSIUM 3.4 L mEq/L 07/19/2024 06:00 CHLORIDE 102 mEq/L 07/19/2024 06:00 UREA NITROGEN 23.8 mg/dL 07/19/2024 06:00 CREATININE 0.94 mg/dL 07/19/2024 06:00 CALCIUM 8.1 L mg/dL 07/19/2024 06:00 CARBON DIOXIDE 20 L mEq/L 07/19/2024 06:00 GLUCOSE 87 mg/dL 07/19/2024 06:00 EGFR (CKD-EPI 2020) 88.9 07/19/2024 06:00 WBC: 5.1 10*3/uL (07/19/24 06:00) HCT: 22.9 % L (07/19/24 06:00) HGB: HGB 8.0 L g/dL 07/19/2024 06:00 Plt: PLT 39 L 10*3/uL 07/19/2024 06:00 Assessment/Plan: 68yo M w/ past medical history 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 Denied fevers, n/v, abdominal pain, chest pain, rash. In the ED, patient hypotensive to 80s and found to have acute anemia (Hgb 13 -> 7, plt 61 -> 44), significant leukocytosis 43 with lactate 8, mild RONNIE and INR 2s. SBP improved to 120s s/p 2L IVF. Received total of 3u pRBC (2u + 1U), 2u FFP, 1u platelets w/ Hgb stable ~8, plt 39, INR 1.5. CT abdomen w/o evidence of colitis. GI consulted, and EGD performed without evidence or stigmata of bleeding (redemonstrated mild esophageal varices, not banded). GI signed off with recs now that pt is stable. Leukocytosis (43 -> 7) and lactic acidosis (8 -> 1.3) resolved day after admission and likely iso SIRS from low volume/perfusion. Patient currently on ceftriaxone for SBP prophylaxis w/ plan for 5 day total abx course. Of note, CT chest showed SHANON cavitary nodule measuring up to 10mm w/ concern for potential metastatic lesion. Unclear if nodule correlates with 03/[address] and outpatient heme/onc Dr. Feliciano made aware. #Melena #ABLA Patient w/ reported black liquid stools, weakness since Keytruda initiation 07/13/24. Hgb 13 -> 7 on admission compared to one week ago. 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 Low likelihood of immunotherapy-related colitis given no evidence of inflammation on CT abdomen. Lower concern for hemolysis at this time (haptoglobin 93, LDH 305). 07/18 EGD without evidence of bleeding or stigmata of bleeding. - T&S, transfuse hgb > 7 - S/p 3u pRBC (2u + 1u), 2u FFP (initial INR 2.3), 1u platelets - GI consulted, appreciate recs - EGD negative, okay to resume diet, CTM - restarting propranolol at 5mg BID today - Changing PPI to PO - f/u stool sample #Thrombocytopenia Plt 61 -> 44 on admission compared to one week ago. Received 1u platelets with repeat plt 39. No evidence of active bleeding at this time. Of note, CT abdomen with noted splenomegaly to 14.8cm, raising c/f sequestration - CTM - Transfuse plt > 10 given no active bleeding at this time #SIRS with lactic acidosis - resolved WBC 43 -> 7, lactate 8 -> 1.3 day after admission. Presentation likely related to low volume/underperfusion iso ABLA as above. Lower concern for sepsis at this time. Patient remains afebrile. 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 Infectious or inflammatory process vs metastatic lesion. Unclear if correlated to 04/23/[address] - Outpatient heme/onc Dr. Feliciano made aware and will f/u #Cirrhosis - appears mostly compensated, no PSE / ascites #Coagulopathy - INR 2s, unclear if 2/2 cirrhosis vs nutritional deficiency. S/p 2u FFP. 07/19 INR 1.5 #Mild RONNIE - resolved Cr 1.25 on admission. Most likely prerenal iso blood loss as above. S/p 2L IVF and transfusions. 07/19 Cr 0.94 - CTM Code: Full, NOK: VTE ppx: deferred 2/2 acute anemia Diet: puree diet Dispo: home /loly/ PRATIK KAUR Medical Student Signed: 07/19/2024 14:26 /es/ RAMSES JEAN MD Attending Physician - Internal Medicine Cosigned: 07/20/2024 15:29 07/20/2024 ADDENDUM STATUS: COMPLETED This medical student's history-taking and examination was directly observed by Dr. Maya. Pt seen by me on 07/20/2024, please see progress note from that date for full attestation. /loly/ RAMSES JEAN MD Attending Physician - Internal Medicine Signed: 07/20/2024 15:30 PRATIK KAUR [facility] Jul 19, 2024 12:55 PM GASTROENTEROLOGY NOTE: LOCAL TITLE: GASTROENTEROLOGY INPATIENT SIGN OFF STL STANDARD TITLE: GASTROENTEROLOGY NOTE DATE OF NOTE: JUL 19, 2024@12:55 ENTRY DATE: JUL 19, 2024@12:56:05 AUTHOR: SHAKEEL STEVENSON EXP COSIGNER: FIONA ABRAHAM URGENCY: STATUS: COMPLETED GASTROENTEROLOGY INPATIENT SIGN OFF STL Has ADDENDA CC: Melena HPI: Pt. 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 Patient reports Tuesday he noted dark, tarry stools that started after immunotherapy (Keytruda). Reports he developed weakness and dizziness, difficulty with ambulation and shorntess of breath. States symptoms have improved since recieving blood. Reports no fevers, nausea, vomiting, abdominal pain, chest pain, hematochezia or hematemesis. Patient is not on blood thinners. On admission he was hypotensive with improvement after IV fluids. He is on room air. Not on pressors. WBC of 40-->7. He was started on antibiotics. Hgb of 7 (baseline of 13 on Tuesday). He received 2 units of pRBCS and repeat hgb of 6.6. More pRBC's ordered by primary team. He received 1 unit of FFP. Receiving plts after drop from 92--> 44. He had hemolysis work-up, which was negative. S/p EGD for melena on 07/18/23: Small to moderate sized esophageal varices-not banded. PHG and friability with scope trauma. No active bleeding or stigmata of bleeding noted. HDS, no reported bleeing since admission Hb holding at 8, plt 39. ROS: Review of systems is as per HPI. Active Outpatient Medications (excluding Supplies): Issue Date [...] ONCE A DAY NEEDED 13 Total Medications Vitals: 97.6 F [36.4 C] (07/17/2024 16:10) 108 (07/17/2024 17:30) 119/77 (07/17/2024 17:30) 17 (07/17/2024 16:10) Measurement DT POx (L/MIN)(%) 07/13/2024 13:32 99 05/11/2024 14:21 99 04/23/2024 13:29 93 01/13/2024 11:14 99 General-NAD, well-nourished HEENT-mucous membranes moist and without lesion or exudate, no scleral icterus CV-rrr no m/r/g/t Lung-cta ketty, symmetric movement Abd-nabs, s/nt/nd, no masses, no HSM Skin-no rash or jaundice INTERVAL TESTS: LABS: Hgb: HGB 8.0 L g/dL 07/19/2024 06:00 Hct: 22.9 % L (07/19/24 06:00) MCV: 93.5 fL (07/19/24 06:00) Plt: PLT 39 L 10*3/uL 07/19/2024 06:00 Iron, TIBC: No IRON & TIBC EO data found Ptaricio: No FERRITIN EO data found BUN: 23.8 mg/dL (07/19/24 06:00) Cr: CREATININE 0.94 mg/dL 07/19/2024 06:00 Alb: ALBUMIN 2.6 L g/dL 07/18/2024 06:00 Ca: 8.1 mg/dL L (07/19/24 06:00) TSH: TSH 1.431 uIU/mL 07/13/2024 12:39 Vit D: No VITAMIN D 25 HYDROXY EO data found ALT: 155 U/L H (07/18/24 06:00) AST: 230 U/L H (07/18/24 06:00) TB: TOTAL BILIRUBIN 1.6 H mg/dL 07/18/2024 06:00 AP: ALKALINE PHOSPHATASE 75 U/L 07/18/2024 06:00 INR: INR VALUE 1.5 INR 07/19/2024 06:00 PROTIME 16.4 H sec 07/19/2024 06:00 0 No HOWARD Ab (IgG) (STL) data found HEP HB S AG (AUSRIA) STL-MA Collection DT Specimen Test Name Result Units Ref Range 04/27/2022 11:12 SERUM HBSAG Nonreactive S/CO Ref: Nonreactive Comment: The listed sex of this patient may not be a typical Comment: indication for this test. Therefore, reference ranges or Comment: interpretive criteria listed may not be valid. Clinical correlation Comment: suggested. Comment: Clinical Correlation suggested. Confirmatory test to follow. No HEP B Surface Ab-HBsAB (AUSAB) (STL-MA) data found HEP C GENOTYPING(STL) NOT DETECTED 03/11/2021 16:32 HCV RNA,PCR (IU/ML) <15 IU/mL 06/07/2022 13:50 HCV RNA By PCR Quant(Log IU/ML) <1.18 Log IU/mL 06/07/2022 13:50 HEP C Ab HCV Ab (STL) REACTIVE H* S/CO 04/27/2022 11:12 HEP C GENOTYPING(STL) NOT DETECTED 03/11/2021 16:32 HCV RNA,PCR (IU/ML) <15 IU/mL 06/07/2022 13:50 HCV RNA By PCR Quant(Log IU/ML) <1.18 Log IU/mL 06/07/2022 13:50 HEP C Ab HCV Ab (STL) REACTIVE H* S/CO 04/27/2022 11:12 IMAGING: Impression for CT ABDOMEN AND PELVIS W/CONTRAST, 07/17/24, case [id number] Left upper lobe cavitary nodules measuring [...] from 09/12/2023. READING PHYSICIAN: Guilherme Talbert M.D. -[phone] 07/17/2024 17:44 [facility] [phone] (For Medical Practitioner Use Only) Attention Patients / Veterans: If you have questions or concerns about these test results, please contact your ordering provider or primary care team. Impression for US ABDOMEN LTD, SINGLE ORG [...] for focal liver lesions No Impressions found IMP: 68-year-old male with compensated cirrhosis secondary to HCV (status post SVR) complicated by HCC status post TACE (08/05/2022 and 12/01/2022) metastatic SCC of the oropharynx who was admitted for acute symptomatic anemia and melena. Decompensated cirrhosis secondary to upper GI bleed Hx of hepatocellular carcinoma MELD score of 19 points (3-4% 90 day mortality). HX of ascites-none currently on exam. No hx of SBP. No hx of encephalopathy. Hx of grade 1 esophageal varices and mild PHG in 2022. Repeat recommended, but deferred given new diagnosis of SCC. S/p EGD for melena on 07/18/23: Small to moderate sized esophageal varices-not banded. PHG and friability with scope trauma. No active bleeding or stigmata of bleeding noted. REC: -Can switch PPI to PO. -Can restart propanolol. -Maintain updated type and screen for blood transfusions. -06/04/2020 colonoscopy at [facility] with morley-colonic diverticulosis and multiple medium-sized, non-bleeding angiodysplastic lesions. No polyps or masses found. 10 yr f/u. - We will sign off please reach if there are any concerns. /loly/ SHAKEEL STEVENSON FELLOW Signed: 07/19/2024 13:05 /es/ FIONA ABRAHAM M.D., [facility] Staff Physician - Gastroenterology Cosigned: 07/19/2024 13:27 07/19/2024 ADDENDUM STATUS: COMPLETED I reviewed this patient in person with the GI fellow and have reviewed the pertinent records & laboratory data. I agree with the note including A&P which were formulated together. /loly/ FIONA ABRAHAM M.D., [facility] Staff Physician - Gastroenterology Signed: 07/19/2024 13:28 ELVASHAKEEL Osullivan [facility] Jul 19, 2024 11:50 AM NURSING NOTE: LOCAL TITLE: [facility] SKIN INSPECTION/ASSESSMENT STANDARD TITLE: NURSING NOTE DATE OF NOTE: JUL 19, 2024@11:50 ENTRY DATE: JUL 19, 2024@11:50:49 AUTHOR: PRASANNA OG EXP COSIGNER: URGENCY: STATUS: COMPLETED Assessment Type: SKIN REINSPECTION/REASSESSMENT SKIN INSPECTION: Skin Color: Usual for ethnicity Skin Temperature: Warm Skin Moisture: Dry Skin Turgor: Non-Elastic Bautista Skin Assessment: The patient's Bautista Scale [...] limitation. Nutrition -- usual food intake patterns Probably inadequate. Friction and shear No apparent problem. INTERVENTIONS: The pressure injury interventions were not needed - patient/resident is not at risk. SKIN INTEGRITY: Intact /loly/ PRASANNA OG BSN RN REGISTERED NURSE Signed: 07/19/2024 11:52 PRASANNA OG [facility] Jul 19, 2024 10:23 AM TRANSFER SUMMARIZATION NOTE: LOCAL TITLE: IN-HOUSE TRANSFER STL STANDARD TITLE: TRANSFER SUMMARIZATION NOTE DATE OF NOTE: JUL 19, 2024@10:23 ENTRY DATE: JUL 19, 2024@10:23:31 AUTHOR: AURA ZACARIAS EXP COSIGNER: NOAM MOLINA URGENCY: STATUS: COMPLETED ADMISSION DATE: Jun TRANSFER DATE: Jun ADMISSION DIAGNOSIS: Last Admission: 07/17/24 7:35:25 pm Admit Dx: ACUTE BLOOD LOSS ANEMIA SECONDARY DIAGNOSIS: #Thrombocytopenia #SIRS with lactic acidosis #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 HOSPITAL COURSE: (See 07/19 progress note) 68yo M w/ PMHx cirrhosis 07/29 HCV (s/p SVR) c/b HCC s/p TACE (07/2022, 11/2022) (compensated, +grade 1 varices), metastatic SCC of oropharynx s/p RT and recent Keytruda initiation 07/13/2024 who presented with progressive worsening shortness of breath, fatigue, diarrhea with black liquid stools, and weakness ever since he received Keytruda on Tuesday. Denied fevers, n/v, abdominal pain, chest pain, rash. In the ED, patient hypotensive to 80s and found to have acute anemia (Hgb 13 -> 7, plt 61 -> 44), significant leukocytosis 43 with lactate 8, mild RONNIE and INR 2s. SBP improved to 120s s/p 2L IVF. Received total of 3u pRBC (2u + 1U), 2u FFP, 1u platelets w/ Hgb stable ~8, plt 39, INR 1.5. CT abdomen w/o evidence of colitis. GI consulted, and EGD performed without evidence or stigmata of bleeding (redemonstrated mild esophageal varices, not banded). GI continuing to follow and rec monitoring for now. Leukocytosis (43 -> 7) and lactic acidosis (8 -> 1.3) resolved day after admission and likely iso SIRS from low volume/perfusion. Patient currently on ceftriaxone for SBP prophylaxis w/ plan for 5 day total abx course. Of note, CT chest showed SHANON cavitary nodule measuring up to 10mm w/ concern for potential metastatic lesion. Unclear if nodule correlates with 03/[address] and outpatient heme/onc Dr. Feliciano made aware. /loly/ AURA ZACARIAS Orthopedic Shoe Fitter Signed: 07/19/2024 10:28 /es/ Noam Molina MD, PhD Staff Physician Cosigned: 07/19/2024 12:18 AURA ZACARIAS Aster [facility] Jul 19, 2024 08:13 AM ATTENDING CRITICAL CARE UNIT NOTE: LOCAL TITLE: CRITICAL CARE STL STANDARD TITLE: ATTENDING CRITICAL CARE UNIT NOTE DATE OF NOTE: JUL 19, 2024@08:13 ENTRY DATE: JUL 19, 2024@08:14:07 AUTHOR: AURA ZACARIAS EXP COSIGNER: NOAM MOLINA URGENCY: STATUS: COMPLETED MEDICINE INPATIENT GENERAL NOTE STL 68 year old MALE admitted on Jun 19:35 for Last Admission: 07/17/24 7:35:25 pm Admit Dx: ACUTE BLOOD LOSS ANEMIA. Subjective Complaints: - Reports soreness with swallowing after EGD. Denies chest pain, abdominal pain, hematuria, fevers/chills. No BM yet since admission Major events over the last day: - 07/18 EGD: redemonstrated esophageal varices (not banded) without evidence of active bleeding or stigmata of bleeding. GI rec monitor for now. PO diet resumed. - Hgb stable ~8.0, plt 44 -> 39 s/p 1u platelet transfusion - Abx narrowed to ceftriaxone Brief Plan: - Transfuse Hgb > 7 - Continue ceftriaxone for total 5 day prophylactic abx course - Stool PCR pending Active Inpatient Medications: 1) POTASSIUM CHLORIDE SA TAB,SA PO ONE-TIME 40MEQ 2) PHYTONADIONE TAB PO QDAILY 10MG 3) PANTOPRAZOLE INJ,PWDR IV BID 40MG 4) ONDANSETRON INJ,SOLN IVP Q6H PRN 4MG/2ML 5) CALCIUM CARBONATE TAB,CHEWABLE PO Q6H PRN 1500MG 6) ACETAMINOPHEN TAB PO QID PRN for pain 1st line 7) CEFTRIAXONE 1GM/BAG INJ,SOLN IVPB Q24H Vital Signs: Pulse: 108 (07/17/2024 17:30) BP:119/77 (07/17/2024 17:30) RESP:17 (07/17/2024 16:10) Pain:5 (07/18/2024 21:34) Tmax: 38.0 C (one time at 20:00, covered in blankets) Pulse Oximetry: Weight: 161.2 lb [73.12 kg] (05/11/2024 14:21) PHYSICAL EXAM: General: Sitting upright in bed, NAD HEENT: anicteric, atraumatic Lungs: CTAB, normal WOB CVS: RRR, no m/r/g Abdomen: soft, nontender, nondistended Ext: no LE edema Neuro: A&Ox4, grossly moving all 4 extrmeities Skin/ulcers: no visible rashes or lesions Recent Labs: BASIC METABOLIC PANEL: SODIUM 129 L mEq/L 07/19/2024 06:00 POTASSIUM 3.4 L mEq/L 07/19/2024 06:00 CHLORIDE 102 mEq/L 07/19/2024 06:00 UREA NITROGEN 23.8 mg/dL 07/19/2024 06:00 CREATININE 0.94 mg/dL 07/19/2024 06:00 CALCIUM 8.1 L mg/dL 07/19/2024 06:00 CARBON DIOXIDE 20 L mEq/L 07/19/2024 06:00 GLUCOSE 87 mg/dL 07/19/2024 06:00 EGFR (CKD-EPI 2020) 88.9 07/19/2024 06:00 WBC: 5.1 10*3/uL (07/19/24 06:00) HCT: 22.9 % L (07/19/24 06:00) HGB: HGB 8.0 L g/dL 07/19/2024 06:00 Plt: PLT 39 L 10*3/uL 07/19/2024 06:00 CK-MB: ____ TROPONIN I HISTORY: No data available Other Labs and Data: Assessment/Plan: Hospital Course: 68yo M w/ PMHx 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 Denied fevers, n/v, abdominal pain, chest pain, rash. In the ED, patient hypotensive to 80s and found to have acute anemia (Hgb 13 -> 7, plt 61 -> 44), significant leukocytosis 43 with lactate 8, mild RONNIE and INR 2s. SBP improved to 120s s/p 2L IVF. Received total of 3u pRBC (2u + 1U), 2u FFP, 1u platelets w/ Hgb stable ~8, plt 39, INR 1.5. CT abdomen w/o evidence of colitis. GI consulted, and EGD performed without evidence or stigmata of bleeding (redemonstrated mild esophageal varices, not banded). GI continuing to follow and rec monitoring for now. Leukocytosis (43 -> 7) and lactic acidosis (8 -> 1.3) resolved day after admission and likely iso SIRS from low volume/perfusion. Patient currently on ceftriaxone for SBP prophylaxis w/ plan for 5 day total abx course. Of note, CT chest showed SHANON cavitary nodule measuring up to 10mm w/ concern for potential metastatic lesion. Unclear if nodule correlates with 03/[address] and outpatient heme/onc Dr. Feliciano made aware. #Melena #ABLA Patient w/ reported black liquid stools, weakness since Keytruda initiation 07/13/24. Hgb 13 -> 7 on admission compared to one week ago. 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 Low likelihood of immunotherapy-related colitis given no evidence of inflammation on CT abdomen. Lower concern for hemolysis at this time (haptoglobin 93, LDH 305). 07/18 EGD without evidence of bleeding or stigmata of bleeding. - T&S, transfuse hgb > 7 - S/p 3u pRBC (2u + 1u), 2u FFP (initial INR 2.3), 1u platelets - GI consulted, appreciate recs - EGD negative, okay to resume diet, CTM - Hold propranolol given hypotension - Continue IV pantoprazole 40 BID - Awaiting stool sample #Thrombocytopenia Plt 61 -> 44 on admission compared to one week ago. Received 1u platelets with repeat plt 39. No evidence of active bleeding at this time. Of note, CT abdomen with noted splenomegaly to 14.8cm, raising c/f sequestration - CTM - Transfuse plt > 10 given no active bleeding at this time #SIRS with lactic acidosis - resolved WBC 43 -> 7, lactate 8 -> 1.3 day after admission. Presentation likely related to low volume/underperfusion iso ABLA as above. Lower concern for sepsis at this time. Patient remains afebrile. 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 Infectious or inflammatory process vs metastatic lesion. Unclear if correlated to 04/23/[address] - Outpatient heme/onc Dr. Feliciano made aware and will f/u #Cirrhosis - appears mostly compensated, no PSE / ascites #Coagulopathy - INR 2s, unclear if 2/2 cirrhosis vs nutritional deficiency. S/p 2u FFP. 07/19 INR 1.5 #Mild RONNIE - resolved Cr 1.25 on admission. Most likely prerenal iso blood loss as above. S/p 2L IVF and transfusions. 07/19 Cr 0.94 - CTM #DVT ppx - deferred 2/2 acute anemia #FEN - soft and bite sized #PIV #Full Code - NOK is Life Sustaining Treatment Orders Cohort: Reminder Term: [facility]-LIFE SUSTAINING TREATMENT ORDERABLE ITEMS Orderable Item: LST FULL CODE 07/17/2024@19:08 Status: active, Start date: 07/17/2024@19:08, Stop date: missing Duration: 2 D Time Spent providing Critical Care: 30 /es/ AURA ZACARIAS Orthopedic Shoe Fitter Signed: 07/19/2024 10:11 /es/ Noam Molina MD, PhD Staff Physician Cosigned: 07/19/2024 10:21 AURA ZACARIAS [facility] Jul 18, 2024 08:29 PM NURSING NOTE: LOCAL TITLE: VAAES SKIN INSPECTION/ASSESSMENT STANDARD TITLE: NURSING NOTE DATE OF NOTE: JUL 18, 2024@20:29 ENTRY DATE: JUL 18, 2024@20:29:44 AUTHOR: YAMILET MIRELES EXP COSIGNER: URGENCY: STATUS: COMPLETED VAAES SKIN INSPECTION/ASSESSMENT Has ADDENDA Assessment Type: INITIAL SKIN INSPECTION/ASSESSMENT SKIN INSPECTION: [...] ability to change and control body position Chair fast. Mobility -- ability to change and control body position No limitation. Nutrition -- usual food intake patterns Probably inadequate. Friction and shear No apparent problem. INTERVENTIONS: The pressure injury interventions were not needed - patient/resident is not at risk. RISK FACTORS THAT INCREASE RISK FOR DEVELOPING PRESSURE INJURIES: The patient/resident has the following: Device(s): (nasogastric tubes, oxygen tubing, urinary catheters, cell phone etc.) Comment: monitor leads, IV SKIN INTEGRITY: Intact /loly/ JEFF SEVILLA, RN, CCRN REGISTERED NURSE Signed: 07/18/2024 20:30 07/19/2024 ADDENDUM STATUS: COMPLETED no changes to prior skin assessment /loly/ JEFF SEVILLA, RN, CCRN REGISTERED NURSE Signed: 07/19/2024 00:10 07/19/2024 ADDENDUM STATUS: COMPLETED no changes to prior skin assessment /JEFF Lindsay, RN, CCRN REGISTERED NURSE Signed: 07/19/2024 04:12 YAMILET MIRELES [facility] Jul 18, 2024 07:14 PM TELEHEALTH NOTE: LOCAL TITLE: TELECRITICAL CARE NOTE STANDARD TITLE: TELEHEALTH NOTE DATE OF NOTE: JUL 18, 2024@19:14 ENTRY DATE: JUL 18, 2024@19:14:44 AUTHOR: EDWARD KELLER EXP COSIGNER: URGENCY: STATUS: COMPLETED TeleCritical Care Note TeleCritical Care Nurse Note: Education/Verbal Agreement to video monitoring by TeleCritical Care: Verbal agreement obtained by TeleCritical Care staff from patient /loly/ EDWARD KELLER Tele-diet technician registered Signed: 07/18/2024 19:15 PALONPON,EDWARD L [facility] Jul 18, 2024 02:51 PM NURSING NOTE: LOCAL TITLE: [facility] SKIN INSPECTION/ASSESSMENT STANDARD TITLE: NURSING NOTE DATE OF NOTE: JUL 18, 2024@14:51 ENTRY DATE: JUL 18, 2024@14:51:11 AUTHOR: PRASANNA OG EXP COSIGNER: URGENCY: STATUS: COMPLETED Assessment Type: SKIN REINSPECTION/REASSESSMENT SKIN INSPECTION: Skin Color: Pale Skin Temperature: Warm Skin Moisture: Normal Skin Turgor: Non-Elastic Bautista Skin Assessment: The patient's Bautista Scale Score is 21. The patient is considered not at risk [...] limitation. Nutrition -- usual food intake patterns Adequate. Friction and shear No apparent problem. INTERVENTIONS: The pressure injury interventions were not needed - patient/resident is not at risk. SKIN INTEGRITY: Intact /loly/ PRASANNA OG BSN RN REGISTERED NURSE Signed: 07/18/2024 14:52 PRASANNA OG [facility] Jul 18, 2024 01:03 PM GASTROENTEROLOGY INPATIENT NOTE: LOCAL TITLE: GASTROENTEROLOGY INPATIENT FOLLOW UP [facility] STANDARD TITLE: GASTROENTEROLOGY INPATIENT NOTE DATE OF NOTE: JUL 18, 2024@13:03 ENTRY DATE: JUL 18, 2024@13:03:53 AUTHOR: ISABEL MIRAMONTES EXP COSIGNER: FIONA ABRAHAM URGENCY: STATUS: COMPLETED GI Follow-up S/p EGD for melena on 07/18/23: Small to moderate sized esophageal varices-not banded. PHG and friability with scope trauma. No active bleeding or stigmata of bleeding noted. Recommendations: Okay for po diet. Serial CBC (q 8 hours). Continue to monitor for GI bleed. If symptomatic GI bleed requiring urgent scope please page GI fellow. Continue holding [id number] re-evaluate tomorrow. /loly/ ISABEL MIRAMONTES Gastroenterology and Hepatology Fellow Signed: 07/18/2024 13:06 /loly/ FIONA ABRAHAM M.D., [facility] Staff Physician - Gastroenterology Cosigned: 07/18/2024 13:44 ISABEL MIRAMONTES [facility] Jul 18, 2024 12:01 PM NUTRITION DIETETICS E & M NOTE: LOCAL TITLE: NUTRITION ASSESSMENT [facility] STANDARD TITLE: NUTRITION DIETETICS E & M NOTE DATE OF NOTE: JUL 18, 2024@12:01 ENTRY DATE: JUL 18, 2024@12:01:35 AUTHOR: BELEN NAJERA EXP COSIGNER: LANIE YUAN URGENCY: STATUS: COMPLETED AREA: The supervising RD is in the same physical area and is immediately accessible to the nutrition internship. Nutrition Assessment Modality of Care: Face to face Worn by employee Face mask SGA (detailed) WEIGHT HISTORY: 0 Weight Stable APPETITE INTAKE: 2 Significant appetite/intake changes GASTROINTESTINAL SYMPTOMS: 1 Chewing Issues 0 No swallowing issues FUNCTIONAL CAPACITY: 0 Functional capacity does not interfere Nutrition Status Note: Ambulatory (i.e. capable of only activities of daily living) METABOLIC STRESS: 2 Pt with significant metabolic stress -Moderate increase activity i.e., initiation of daily PT therapy, Stage II-III wounds, mild infection, extended surgical procedure, CHF, mild exacerbation of chronic disease -High high-intensity physical activity, major surgery, acute pancreatitis, SIRS, vent dependent stressed, wound Stage IV PHYSICAL NUTRITION ASSESSMENT: 2 Pt with signs of fat and/or muscle loss or abnormal fluid status Comments: Mild muscle wasting of the deltoids Follow up date: Jun NUTRITION ASSESSMENT CLIENT HISTORY: 68 year old MALE admitted for acute blood loss anemia Patient medical health history: Chronic hepatitis C Hepatic cirrhosis GERD - Gastro-Esophageal Reflux Disease ([facility] [id number]) Hearing Loss ([facility] [id number]) 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 reports consuming 4-5 Boost supplements a day, and primarily drinking water and sprite. He stated he has followed this diet for several years and it is how he ensures he receives adequate kcal/protein. Reports following this liquid diet d/t jaw tightening up and difficulty chewing (edentulous). Diet Order: NPO (07/18/24) Food and Fluid Intake: Pt. has been NPO preparing for EGD procedure, and adjusted to Soft and Bite Sized 07/18 afternoon. Reported enjoying the chicken broth on his clear liquid tray. Medications and Herbal Supplements: PHYTONADIONE TAB PO QDAILY 10MG PANTOPRAZOLE INJ,PWDR IV BID 40MG ONDANSETRON INJ,SOLN IVP Q6H PRN 4MG/2ML CALCIUM CARBONATE TAB,CHEWABLE PO Q6H PRN 1500MG Anthropometric Measurements: Ht: 72 in [182.9 cm] (07/26/2023 08:00) Wt: 161.2 lb [73.12 kg] (05/11/2024 14:21) BMI: 21.9 Weight History/Significant changes: Patient Weight History - Last Four 1. 161.2 lbs. / 73.1 kg. on MAY 11, 2024@14:21:46 2. 160.7 lbs. / 72.9 kg. on APR 23, 2024@13:29:38 3. 161.7 lbs. / 73.4 kg. on JAN 13, 2024@11:14:56 4. 160.4 lbs. / 72.8 kg. on JAN 02, 2024@11:40:15 No recent weight data available. Biochemical Data/Med tests and procedures: LABS: SODIUM 133 L mEq/L 07/18/2024 06:00 UREA NITROGEN 40.5 H mg/dL 07/18/2024 06:00 ALT/SGPT 155 H U/L 07/18/2024 06:00 AST/SGOT 230 H U/L 07/18/2024 06:00 TOTAL BILIRUBIN 1.6 H mg/dL 07/18/2024 06:00 PHOSPHOROUS 2.2 L mg/dL 07/18/2024 06:00 Social history: Per previous notes, pt. lives at home with his . Knowledge, beliefs and attitudes: Pt. reported confidence in his current Boost intake. Showed some interest in eating solid foods as long as he could tolerate with his difficulty chewing. Stated he finds that a lot of the food at the store is full of junk , another reason why he drinks primarily Boosts. Nutrition Focused Physical Findings: Pt. showed mild muscle wasting of the deltoids, shoulders appearing squared off. Edentulous, and does not have his dentures with him currently. 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 Unbalanced diet pattern related to Limited physical ability (chewing difficulty/discomfort) evidenced by Conditions associated with a diagnosis or treatment that might contribute to unbalanced diet pattern (edentulous, hx of head and neck cancer), and negative emotions about food and nutrition (distrust of foods other than Boost). NUTRITION INTERVENTIONS: DIET RECOMMENDATIONS -Regular diet upon liberalization of diet order, with texture modification recommendations from GI/speech Commercial beverage medical food supplement therapy: -Trial Ensure Plus TID with meal trays upon diet order advancement, to help meet protein/kcal needs. Ongoing ONS intake from home, but will re-evaluate need for supplementation with diet advancement. Content related nutrition education: -Highlighted the importance of consuming adequate protein with cirrhosis diagnosis -Informed pt. RD would follow-up again once diet is resumed, to discuss incorporating more foods/less supplements into diet. Pt. agreeable. Barriers to learning: None Comprehension: Good, verbalized understanding Coordination of Care: -Speech consult placed for once diet is resumed NUTRITION MONITORING AND EVALUATION Diet order: to tolerate new diet order by next follow-up appointment in 3 days Follow up date: Jun /loly/ BELEN NAJERA Grinder Operator Automatic Signed: 07/18/2024 14:48 /loly/ Lanie Yuan RD, LD, [facility] Clinical Dietitian Cosigned: 07/18/2024 15:05 BELEN NAJERA [facility] Jul 18, 2024 11:22 AM ATTENDING CRITICAL CARE UNIT NOTE: LOCAL TITLE: CRITICAL CARE ST[facility] STANDARD TITLE: ATTENDING CRITICAL CARE UNIT NOTE DATE OF NOTE: JUL 18, 2024@11:22 ENTRY DATE: JUL 18, 2024@11:23 AUTHOR: AURA ZACARIAS EXP COSIGNER: NOAM MOLINA URGENCY: STATUS: COMPLETED CRITICAL CARE STL Has ADDENDA MEDICINE INPATIENT GENERAL NOTE STL 68 year old MALE admitted on Jun 19:35 for Last Admission: 07/17/24 7:35:25 pm Admit Dx: ACUTE BLOOD LOSS ANEMIA. Subjective Complaints: - Reports feeling better overall this AM. Denies abdominal pain, n/v/d, or additional episodes of melena since admission. Denies chest pain, fevers/chills, hematuria. Major events over the last day: - Admitted yesterday for black, tarry stools since Keytruda initiation 07/13 - So far transfused 3u pRBC (2u + 1u), 2u FFP (initial INR 2.3), 1u platelets (initial plt 44). Received 2L IVF in ED - Blood cx pending. Received vanc/zosyn in ED, switched to vanc/cefe/flagyl on arrival to floor - WBC 42 -> 7, lactate 8 -> 1.3 Brief plan: - GI consulted this AM w/ plan for EGD today - Switch cefepime to ceftriaxone - Hold propranolol, continue IV pantoprazole 40 BID - Transfuse hgb > 7 Active Inpatient Medications: 1) PHYTONADIONE TAB PO QDAILY 10MG 2) PANTOPRAZOLE INJ,PWDR IV BID 40MG 3) ONDANSETRON INJ,SOLN IVP Q6H PRN 4MG/2ML 4) CALCIUM CARBONATE TAB,CHEWABLE PO Q6H PRN 1500MG 5) CEFEPIME 2GM/BAG INJ,SOLN IV BID ID APPROVAL NEEDED BY 07/20@0859 Vital Signs: Pulse: 108 (07/17/2024 17:30) BP:119/77 (07/17/2024 17:30) RESP:17 (07/17/2024 16:10) Pain:0 (07/17/2024 16:10) Tmax: 37.3 C Pulse Oximetry: 99 Weight: 161.2 lb [73.12 kg] (05/11/2024 14:21) Intake/Output: +1080cc (since 0000) PHYSICAL EXAM: General: Sitting upright in bed, NAD HEENT: anicteric, atraumatic Lungs: CTAB, normal WOB CVS: RRR, no m/r/g Abdomen: soft, nontender, nondistended Ext: no LE edema Neuro: A&Ox4, grossly moving all 4 extrmeities Skin/ulcers: no visible rashes or lesions Recent Labs: BASIC METABOLIC PANEL: SODIUM 133 L mEq/L 07/18/2024 06:00 POTASSIUM 3.7 mEq/L 07/18/2024 06:00 CHLORIDE 104 mEq/L 07/18/2024 06:00 UREA NITROGEN 40.5 H mg/dL 07/18/2024 06:00 CREATININE 1.08 mg/dL 07/18/2024 06:00 CALCIUM 8.7 mg/dL 07/18/2024 06:00 CARBON DIOXIDE 24 mEq/L 07/18/2024 06:00 GLUCOSE 83 mg/dL 07/18/2024 06:00 EGFR (CKD-EPI 2020) 75.2 07/18/2024 06:00 WBC: 7.0 10*3/uL (07/18/24 06:00) HCT: 19.3 % L (07/18/24 06:00) HGB: HGB 6.6 L* g/dL 07/18/2024 06:00 Plt: PLT 44 L 10*3/uL 07/18/2024 06:00 CK-MB: ____ TROPONIN I HISTORY: No data available Other Labs and Data: Assessment/Plan: 68yo M w/ PMHx cirrhosis 2/2 [...] 43s, initial hypotension, mild RONNIE, INR 2s. #Black stools / diarrhea #Thrombocytopenia #ABLA Patient w/ reported black liquid stools, weakness since Keytruda initiation 07/13/24. Hgb 13 -> 7, plt 61 -> 44 on admission compared to one week ago. 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 Potential immunotherapy-related colitis, though CT abdomen w/o acute evidence of inflammation. Lower concern for hemolysis at this time (haptoglobin 93, LDH 305). - T&S, transfuse hgb > 7 - S/p 3u pRBC (2u + 1u), 2u FFP (initial INR 2.3), 1u platelets - GI consulted 07/18 w/ plan for EGD today - Hold propranolol given hypotension - Continue IV pantoprazole 40 BID - Lower concern at this time for variceal bleed but consider adding octreotide if worsen - Awaiting stool sample #Neutrophilic leukocytosis, hypotension, tachycardia - resolved #Lactic acidosis - resolved WBC 43 -> 7, lactate 8 -> 1.3 day after admission. Presentation likely inflammatory response iso ABLA, lower concern for sepsis at this time. Patient remains afebrile - Blood cx pending - Abx: - S/p vanc/zosyn in ED (07/17) - Switched to vanc/cefe/flagyl on arrival to floor (07/18) - Narrow to ceftriaxone 1g daily for SBP prophylaxis as above (07/19) - F/u Cdiff, check stool PCR #SOB #SHANON cavitary nodule CT chest with noted SHANON cavitary nodule measuring up to 10mm and centrilobular and tree-in-bud nodules. Likely infectious or inflammatory process vs malignancy - CTM - Outpatient f/u in 1/2 months #Cirrhosis - appears mostly compensated - no PSE / ascites #Coagulopathy - INR 2s, unclear if 2/2 cirrhosis vs nutritional deficiency. S/p 2u FFP. 07/18 INR 1.7 #Mild RONNIE - resolving Cr 1.25 on admission. Most likely prerenal iso blood loss as above. S/p 2L IVF and transfusions. 07/18 Cr 1.08 - CTM #DVT ppx - deferred 2/2 acute anemia #FEN - NPO for scope #PIV #Full Code - NOK is Life Sustaining Treatment Orders Cohort: Reminder Term: [facility]-LIFE SUSTAINING TREATMENT ORDERABLE ITEMS Orderable Item: LST FULL CODE 07/17/2024@19:08 Status: active, Start date: 07/17/2024@19:08, Stop date: missing Duration: 1 D Time Spent providing Critical Care: 30 /es/ AURA ZACARIAS Orthopedic Shoe Fitter Signed: 07/18/2024 12:25 /es/ Noam Molina MD, PhD Staff Physician Cosigned: 07/18/2024 12:38 07/18/2024 ADDENDUM STATUS: COMPLETED I have independently seen and examined the patient on the date of this note. I have reviewed the chart, including labs and imaging findings, and agree with the management as outline in this progress note. Exceptions and/or additional notes, if any, are listed below. 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 #colitis ruled out /loly/ Noam Molina MD, PhD Staff Physician Signed: 07/18/2024 17:41 AURA ZACARIAS [facility] Jul 18, 2024 10:00 AM CONSENT: LOCAL TITLE: CONSENT CLINICAL SCANNED STANDARD TITLE: CONSENT DATE OF NOTE: JUL 18, 2024@10:00 ENTRY DATE: JUL 18, 2024@10:00:21 AUTHOR: ISABEL MIRAMONTES EXP COSIGNER: FIONA ABRAHAM URGENCY: STATUS: COMPLETED THE ATTACHED MEDICAL DOCUMENTATION IS THE SCANNED INFORMED CONSENT /eze MIRAMONTES Gastroenterology and Hepatology Fellow Signed: 07/18/2024 10:00 /eze ABRAHAM M.D., [facility] Staff Physician - Gastroenterology Cosigned: 07/18/2024 10:11 ISABEL MIRAMONTES [facility] Jul 18, 2024 08:17 AM GASTROENTEROLOGY CONSULT: LOCAL TITLE: GASTROENTEROLOGY INPATIENT CONSULT ST STANDARD TITLE: GASTROENTEROLOGY CONSULT DATE OF NOTE: JUL 18, 2024@08:17 ENTRY DATE: JUL 18, 2024@08:18:10 AUTHOR: ISABEL MIRAMONTES EXP COSIGNER: FIONA ABRAHAM URGENCY: STATUS: COMPLETED GASTROENTEROLOGY INPATIENT CONSULT STL Has ADDENDA CC: melena HPI: Pt. 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 Patient reports Tuesday he noted dark, tarry stools that started after immunotherapy (Keytruda). Reports he developed weakness and dizziness, difficulty with ambulation and shorntess of breath. States symptoms have improved since recieving blood. Reports no fevers, nausea, vomiting, abdominal pain, chest pain, hematochezia or hematemesis. Patient is not on blood thinners. On admission he was hypotensive with improvement after IV fluids. He is on room air. Not on pressors. WBC of 40-->7. He was started on antibiotics. Hgb of 7 (baseline of 13 on Tuesday). He received 2 units of pRBCS and repeat hgb of 6.6. More pRBC's ordered by primary team. He received 1 unit of FFP. Receiving plts after drop from 92--> 44. He had hemolysis work-up, which was negative. ROS: Review of systems is as per HPI and additionally notable for Constitutional: No fever, (+) weakness/ fatigue Cardiovascular: No chest pain, No palpitations Respiratory: (+) shortness of breath, No cough Genitourinary: No dysuria, No polyuria Neurology: No headache, No tremors Musculoskeletal: No joint pain, No back pain Skin: No rash, No itching Psychiatric: No anxiety, No depression 10-point ROS is otherwise negative. PMHx: Reviewed. Notable for MEDS: Reviewed. 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 No IBD. No liver, stomach or pancreatic disease. Vitals-97.6 F [36.4 C] (07/17/2024 16:10)108 (07/17/2024 17:30)119/77 (07/17/2024 17:30)17 (07/17/2024 16:10) Measurement DT POx (L/MIN)(%) 07/13/2024 13:32 99 05/11/2024 14:21 99 04/23/2024 13:29 93 01/13/2024 11:14 99 General- NAD, well-nourished HEENT-mmm, no lesion or exudate CV-rrr no m/r/g/t Lung-cta ketty, symmetric movement Abd-nabs, s/nt/nd, no masses, no HSM Rectal-deferred Ext-no c/c/e Skin-no rashes, nodules, or jaundice Psych-A&O x 3, normal mood Hemoccult:No FOBT EO data found LABS: Hgb HGB 6.6 L* g/dL 07/18/2024 06:00 Hct 19.3 % L (07/18/24 06:00) MCV 94.6 fL (07/18/24 06:00) Plt PLT 44 L 10*3/uL 07/18/2024 06:00 Iron, TIBC No IRON & TIBC EO data found Patricio No FERRITIN EO data found BUN 40.5 mg/dL H (07/18/24 06:00) Cr CREATININE 1.08 mg/dL 07/18/2024 06:00 Alb ALBUMIN 2.6 L g/dL 07/18/2024 06:00 Ca 8.7 mg/dL (07/18/24 06:00) TSH TSH 1.431 uIU/mL 07/13/2024 12:39 Vit D No VITAMIN D 25 HYDROXY EO data found ALT 155 U/L H (07/18/24 06:00) AST 230 U/L H (07/18/24 06:00) TB TOTAL BILIRUBIN 1.6 H mg/dL 07/18/2024 06:00 AP ALKALINE PHOSPHATASE 75 U/L 07/18/2024 06:00 INR INR VALUE 1.7 INR 07/18/2024 06:00 PROTIME 19.1 H sec 07/18/2024 06:00 IMAGING: Impression for CT ABDOMEN AND PELVIS W/CONTRAST, 07/17/24, case 1270 Left upper lobe cavitary nodules measuring [...] from 09/12/2023. READING PHYSICIAN: Guilherme Talbert M.D. -[phone] 07/17/2024 17:44 PST [facility] Phase [facility] [phone] (For Medical Practitioner Use Only) Attention Patients / Veterans: If you have questions or concerns about these test results, please contact your ordering provider or primary care team. Impression for US ABDOMEN LTD, SINGLE ORG [...] focal liver lesions No Impressions found EGD 05/16/23: Severe inflammation and thick layer of white plaques coating the entire oropharynx and eosphagus s/p brushings to evaluate for edenilson esophagitis. The exam was abbreviated due to severity of inflammation. Medium sized varices were seen however examination limited. EGD 11/11/22: Esophageal Varices, Grade 1, no banding required. 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 Decompensated cirrhosis secondary to upper GI bleed Hx of hepatocellular carcinoma MELD score of 19 points (3-4% 90 day mortality). HX of ascites-none currently on exam. No hx of SBP. No hx of encephalopathy. Hx of grade 1 esophageal varices and mild PHG in 2022. Repeat recommended, but deferred given new diagnosis of SCC. REC: -EGD tentatively today to evaluate for etiology of melena. -Patient is currently NPO. -Continue PPI 40 mg IV bid -Please maintain 2 large bore IV's. -Serial CBC (transfuse hgb >7, plts> 50). -Agree with holding propanolol in the setting of GI bleed. -Maintain updated type and screen for blood transfusions. -Rest of recs to follow EGD. -No plans for paracentesis-no ascites on exam and not on CT imaging. White count has improved. If infectious work-up negative and continued to have concern for sepsis can re-consider para. -Blood cultures pending. Stool cultures ordered. -06/04/2020 colonoscopy at [facility] with morley-colonic diverticulosis and multiple medium-sized, non-bleeding angiodysplastic lesions. No polyps or masses found. 10 yr f/u 07/25/2024 11:00 [facility] LIVER INPATIENT APPOINTMENT 08/01/2024 10:15 [facility]NUC MED PET A INPATIENT APPOINTMENT 08/02/2024 11:30 [facility]ONCOLOGY FELICIANO INPATIENT APPOINTMENT 08/02/2024 12:00 [facility]CHEMO INPATIENT APPOINTMENT 09/18/2024 14:00 [facility]OPTOMETRY 3 INPATIENT APPOINTMENT /loly/ ISABEL MIRAMONTES Gastroenterology and Hepatology Fellow Signed: 07/18/2024 12:25 /loly/ FIONA ABRAHAM M.D., [facility] Staff Physician - Gastroenterology Cosigned: 07/18/2024 13:41 07/18/2024 ADDENDUM STATUS: COMPLETED I saw the patient with the GI fellow and I reviewed the laboratory and any radiologic findings. I agree with the note including the assessment and plan, which were all formulated together. /loly/ FIONA ABRAHAM M.D., [facility] Staff Physician - Gastroenterology Signed: 07/18/2024 13:42 [facility] Jul 18, 2024 03:14 AM RESPIRATORY THERAPY NOTE: LOCAL TITLE: RESPIRATORY THERAPY ST STANDARD TITLE: RESPIRATORY THERAPY NOTE DATE OF NOTE: JUL 18, 2024@03:14 ENTRY DATE: JUL 18, 2024@03:14:59 AUTHOR: TONEY RONDON EXP COSIGNER: URGENCY: STATUS: COMPLETED Time of test performance: Jun@19:35 Sample collected by: Provider/Nurse: Sample type: Venous Specimen delivered to RT by: SELF ABG Critical Value Documentation: Date and Time of notification: Jun@19:35 Provider notified: SHAYLA Frost Name of person who reported critical result: Reg RONDON Read back of verbal or phoned critical result performed Yes Critical Values Reported to Provider: tHB , Lac , Hct /loly/ TONEY RONDON Registered Respiratory Therapist Signed: 07/18/2024 03:16 TONEY RONDON [facility] Jul 17, 2024 08:51 PM TELEHEALTH NOTE: LOCAL TITLE: TELECRITICAL CARE NOTE STANDARD TITLE: TELEHEALTH NOTE DATE OF NOTE: JUL 17, 2024@20:51 ENTRY DATE: JUL 17, 2024@20:51:59 AUTHOR: EDWARD KELLER EXP COSIGNER: URGENCY: STATUS: COMPLETED TeleCritical Care Note TeleCritical Care Nurse Note: Admission: Patient admitted to TeleCritical Care. Upon discharge from ICU or Stepdown/PCU status, patient will be discharged from TeleCritical Care. Education/Verbal Agreement to video monitoring by TeleCritical Care: Unable to obtain verbal agreement at this time. Patient currently being assessed/settled by bedside staff. Please eLert/call TeleCritical Care when patient is ready for TeleCritical Care education and verbal agreement. /loly/ EDWARD KELLER Tele-diet technician registered Signed: 07/17/2024 20:53 EDWARD KELLER [facility] Jul 17, 2024 08:45 PM NURSING ADMISSION EVALUATION NOTE: LOCAL TITLE: [facility] ACUTE INPATIENT NSG ADMISSION SCREEN STANDARD TITLE: NURSING ADMISSION EVALUATION NOTE DATE OF NOTE: JUL 17, 2024@20:45 ENTRY DATE: JUL 17, 2024@20:45:29 AUTHOR: YAMILET MIRELES EXP COSIGNER: URGENCY: STATUS: COMPLETED ALLERGY/ADVERSE DRUG REACTION (ADR) REVIEW (MRT5) FACILITY ALLERGY/ADR -------- No Remote Allergy/ADR Data available for this patient [facility] No Known Allergies Allergy/Adverse Drug Reaction Review to be conducted by: Nurse: Results of Allergy/ADR Review: Allergy/Adverse Drug Reaction list confirmed. MEDICATION REVIEW (MRR1) Did patient bring medication(s) from home? No GENERAL INFORMATION Admission information given by: Patient Is there a legal guardian/conservator? No Preferred language for discussing healthcare: Fijian Preferred mode of communication: Verbal Items at Bedside: Visual Aids: Standard Glasses INFECTIOUS DISEASE RISK SCREEN Travel Screen: Have you traveled within the [place] within the last 21 days? No Have you traveled outside the [place] within the last 21 days? No Within the last 14 days, have you had: No known exposure Other Exposure to Infectious Disease: No known exposure Patient reported the following symptoms: Nausea Vomiting History of Multiple Drug Resistant Organism (MDRO): No NUTRITION SCREENING Malnutrition Screening Weight (Previous 6 months): Measurement DT WEIGHT LB(KG)[BMI] 05/11/2024 14:21 161.2(73.12)[22] 04/23/2024 13:29 160.7(72.89)[22] Lost weight recently without trying: Yes: Amount weight lost: 1-5 kg (2-13 lbs) (1 point) Have you been eating poorly because of decreased appetite? Yes (1 point) Total Score: 2 Other Nutrition Screening Questions: The patient does not report any concerns with their teeth that would make it difficult to eat. The patient does not report overeating to the point of feeling sick or making themselves vomit. The patient denies gaining 10 lbs.(4.5 kgs) or more in the past 3 months without trying. The patient denies having any food allergies, intolerance, special dietary needs, or ethnic, cultural or lutheran preferences that would affect their dietary needs. Food Insecurity Screening Within the past 12 months, you worried whether your food would run out before you got money to buy more. Never true Within the past 12 months, the food you bought just did not last you and you did not have the money to get more. Never true Food Insecurity Disposition: RISK SCREENINGS Alcohol Screen: Screen to be completed by: Nurse: SCREEN FOR ALCOHOL (AUDIT-C) An alcohol screening test (AUDIT-C) was negative [...] required due to responses to other questions. *Does the patient consume alcohol? No Tobacco Use: Never - tobacco user Do you currently or have you ever used alternative nicotine products? No Substance Use Assessment: *Do you use any recreational drugs or narcotics (prescription or non-prescription)? Yes: Cannabinoids/Marijuana: Amount used/Frequency: 3 times/day Date/Time of last use: Jun Offer Services for Substance Use Disorder: RISK OF WANDERING The patient does not have a history of wandering. The patient does not have a history of elopement. The patient is not expressing a desire to leave. EXPOSURE TO VIOLENCE AND ABUSE PRE-SCREEN Are you worried for your safety, that you will be hurt or harmed? No Has anyone tried to force you to sign papers or use your money against your will? No POST TRAUMATIC STRESS DISORDER CARE CONSIDERATIONS To minimize a startle response, what is your preference on how best to awaken you? Call my name from the doorway Knock before entering SPIRITUALITY Are there lutheran practices or spiritual concerns you want the textile chemist, your provider, and other health care team members to know? No ANTICIPATED DISCHARGE NEEDS Where do you live? Housing owned/rented by [place]: Method of transportation upon discharge: Private Vehicle: Are there any anticipated barriers to discharge? No EDUCATIONAL NEEDS/LEARNING STYLE Barriers to learning: None evident Patient learning style preferences: Verbal explanation VISITOR INFORMATION Will you have a primary support person while in the hospital? No Patient's Visitor Restriction preferences: No Privacy Review: BECKER FALL SCALE & TIPS PROGRAM Becker [...] Communicate recent fall or risk of harm /loly/ JEFF SEVILLA, RN, CCRN REGISTERED NURSE Signed: 07/17/2024 20:49 YAMILET MIRELES [facility] Jul 17, 2024 08:43 PM NURSING NOTE: LOCAL TITLE: JEY PERSONAL EFFECTS STL STANDARD TITLE: NURSING NOTE DATE OF NOTE: JUL 17, 2024@20:43 ENTRY DATE: JUL 17, 2024@20:43:49 AUTHOR: YAMILET MIRELES EXP COSIGNER: URGENCY: STATUS: COMPLETED PERSONAL EFFECTS Hazardous Check: Advised of prohibited hazardous items, No hazardous items observed Medication Check: Denies medication on person Prosthetic Check: Glasses Personal Items: Patient/Family advised that [facility] not responsible for loss of any personal effects or valuables., Patient chooses to keep belongings at bedside. Patient Valuables Observed: vest, sweater, long sleeve ricardo, jacket, pants, socks, belt, ID and cards, shoes, glasses, beanie, gloves /loly/ JEFF SEVILLA, RN, CCRN REGISTERED NURSE Signed: 07/17/2024 20:44 YAMILET MIRELES [facility] Jul 17, 2024 08:35 PM ADMINISTRATIVE NOTE: LOCAL TITLE: ADMINISTRATIVE [facility] STANDARD TITLE: ADMINISTRATIVE NOTE DATE OF NOTE: JUL 17, 2024@20:35 ENTRY DATE: JUL 17, 2024@20:35:48 AUTHOR: VIC JACOBS EXP COSIGNER: URGENCY: STATUS: COMPLETED Dr. Camden Giles was notified that patient was admitted to SICU, and in room 408. /loly/ VIC JACOBS Signed: 07/17/2024 20:38 Receipt Acknowledged By: 07/17/2024 22:10 /loly/ VIC [facility] Jul 17, 2024 08:09 PM NURSING NOTE: LOCAL TITLE: [facility] SKIN INSPECTION/ASSESSMENT STANDARD TITLE: NURSING NOTE DATE OF NOTE: JUL 17, 2024@20:09 ENTRY DATE: JUL 17, 2024@20:10:03 AUTHOR: YAMILET MIRELES EXP COSIGNER: URGENCY: STATUS: COMPLETED VAAES SKIN INSPECTION/ASSESSMENT Has ADDENDA Assessment Type: INITIAL SKIN INSPECTION/ASSESSMENT SKIN INSPECTION: Skin Color: Usual for ethnicity Skin Temperature: Warm Skin Moisture: Normal Skin Turgor: Elastic (normal/immediate) Bautista Skin Assessment: The patient's Bautista Scale Score is 21. The patient is considered not at risk [...] limitation. Nutrition -- usual food intake patterns Adequate. Friction and shear No apparent problem. INTERVENTIONS: The pressure injury interventions were not needed - patient/resident is not at risk. RISK FACTORS THAT INCREASE RISK FOR DEVELOPING PRESSURE INJURIES: The patient/resident has the following: Device(s): (nasogastric tubes, oxygen tubing, urinary catheters, cell phone etc.) Comment: monitor leads, IVs SKIN INTEGRITY: Intact /loly/ JEFF SEVILLA, RN, CCRN REGISTERED NURSE Signed: 07/17/2024 20:11 07/18/2024 ADDENDUM STATUS: COMPLETED no changes to prior skin assessment /loly/ JEFF SEVILLA, RN, CCRN REGISTERED NURSE Signed: 07/18/2024 00:50 07/18/2024 ADDENDUM STATUS: COMPLETED no changes to prior skin assessment /loly/ JEFF SEVILLA, RN, CCRN REGISTERED NURSE Signed: 07/18/2024 04:24 YAMILET MIRELES [facility]
--- OUTSIDE RECORDS SUMMARY | 2024-10-08 17:15 | XMS_ITS ---
Author Name [facility] [place] [facility] [place] Address [address] [place] [address] Care Team Providers Care Wardrobe Specialist Name Role Phone SUKHJINDER CHAHAL Primary Care [...] SUPPL EMENT Nov 25, 2021 PLAN G [id number] [phone] ELLEN HAWK VID PATIENT AARP MED SUPP MEDIGAP PLAN G MEDIC ARE SUPPL EMENT Nov 25, 2021 PLAN G [id number] [phone] ELLEN HAWK VID PATIENT MEDICARE (WNR) MEDICARE (M) PART B Sep 25, 2021 PART B [id number] ELLEN HAWK VID PATIENT MEDICARE (WNR) MEDICARE (M) PART A Aug 25, 2021 PART A [id number] ELLEN HAWKD PATIENT Selected Encounter This section includes the information on record at [place] for the Encounter. 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 Date/Time Primary/Secondary Diagnosis Diagnosis Name Provider Source Aug 15, 2024 03:19 PM PRIMARY Spiritual or caodaism counseling DANNI RENO [facility] Plan of Treatment: Future Appointments (+ 6 months) and Future Tests (+/- 45 days) The Plan of Treatment section includes future care activities for the [place] [facility] [place] [facility] This section includes future appointments [...] 16, 2024 10:00 AM AMBULATORY - MEDICINE [facility] Aug 17, 2024 08:30 AM AMBULATORY - MEDICINE [facility] Aug 17, 2024 09:00 AM AMBULATORY - MEDICINE [facility] Aug 17, 2024 09:30 AM AMBULATORY - MEDICINE [facility] Aug 23, 2024 12:00 PM AMBULATORY - NONE [facility] Aug 31, 2024 02:00 PM AMBULATORY - MEDICINE [facility] Sep 07, 2024 11:00 AM AMBULATORY - MEDICINE [facility] Sep 07, 2024 01:00 PM AMBULATORY - MEDICINE [facility] Oct 15, 2024 03:00 PM AMBULATORY - SURGERY [facility] Oct 19, 2024 02:00 PM AMBULATORY - NONE [facility] Active, Pending, and Scheduled Orders This section includes a listing of several types of active, pending, and scheduled orders, including clinic medications orders, diagnostic test orders, procedure orders and consult orders; where the start date of the order is 45 days before the date of the Encounter or 45 days after the date of theEncounter. The data comes from all [facility]. Test Date/Time Test Type Test Details Facility Name Jul 17, 2024 12:00 AM Laboratory - Blood Bank Order RED BLOOD CELLS - LAB VBECS - NO SPECIMEN REQUIRED [facility] Jul 17, 2024 12:00 AM Laboratory - Blood Bank Order FRESH FROZEN PLASMA - LAB VBECS - NO SPECIMEN REQUIRED [facility] Jul 17, 2024 06:13 PM Laboratory - Blood Bank Order DIRECT ANTIGLOBULIN TEST - LAB BLOOD STAT [facility] Jul 17, 2024 06:13 PM Laboratory - Blood Bank Order TYPE & SCREEN - LAB BLOOD [facility] Jul 18, 2024 12:00 AM Laboratory - Blood Bank Order PLATELETS - LAB VBECS - NO SPECIMEN REQUIRED [facility] Aug 10, 2024 12:00 AM Laboratory - Blood Bank Order RED BLOOD CELLS - LAB VBECS - NO SPECIMEN [facility]QUIRED [facility] Aug 10, 2024 02:00 PM Laboratory - Blood Bank Order TYPE & SCREEN - LAB BLOOD [facility] Aug 10, 2024 05:43 PM Laboratory - Chemistry Order LIPASE GREEN LI/HEP BLD/PLAS PLASMA STAT I [facility] Aug 10, 2024 05:44 PM Laboratory - Microbiology Order BLOOD CULT (SET 2) B D BLD. BOTTLE (SET 2) BLOOD JOANN I NOW [facility] Aug 11, 2024 02:00 AM Laboratory - Chemistry Order CBC BLOOD [facility] Aug 14, 2024 02:00 AM Laboratory - Chemistry Order CBC BLOOD [facility] Aug 15, 2024 02:00 AM Laboratory - Chemistry Order CBC BLOOD [facility] Aug 16, 2024 12:00 AM Laboratory - Chemistry Order CBC BLOOD [facility] Aug 16, 2024 08:00 PM Laboratory - Chemistry Order CBC BLOOD [facility] Aug 17, 2024 08:00 PM Laboratory - Chemistry Order CBC BLOOD [facility] Sep 27, 2024 12:00 AM Laboratory - Chemistry Order CBC BLOOD SP [facility] Sep 27, 2024 12:00 AM Laboratory - Chemistry Order COMPREHENSIVE METABOLIC PANEL GREEN LI/HEP BLD/PLAS PLASMA SP [facility] Lab Results: +/- 30 days of the encounter This section includes the Chemistry and Hematology Lab Results on record with [place] for the patient. Radiology Reports and Pathology Reports are provided separately, in subsequent sections. Lab Results This section contains the Chemistry/Hematology Results that were resulted 30 days before or 30 daysafter the date of the Encounter. Date/Time Source Result Type Result - Unit Interpretation Reference Range Specimen Type Comment Sep 07, 2024 12:39 PM [facility] COMPREHENSIVE METABOLIC PANEL PLASMA Specimen Type: PLASMA Comment: No hemolysis noted. Ordering Provider: TONY SIMMONS Report Released Date/Time: Aug 31, 2024 02:42 PM Reporting Lab: [address] [address] Performing Lab: [address] [address] CREATININE 0.87 mg/dL 0.7-1.3 UREA NITROGEN 24.5 [...] 94.0 >60 Sep 07, 2024 12:39 PM [facility] CBC BLOOD Specimen Type: BLOOD No comment entered. Ordering Provider: TONY SIMMONS Report Released Date/Time: Aug 31, 2024 02:42 PM Reporting Lab: [address] [address] Performing Lab: [facility] [address] [facility] [address] WBC 5.1 10*3/uL 3.6-11.2 RBC 3.44 10*6/uL [...] 10*3/uL 2.10-8.00 Sep 07, 2024 12:39 PM [facility] ALPHA-FETOPROTEIN(STL-PB) SERUM Specimen Type : SERUM No comment entered. Ordering Provider: RCYSTAL MASSEY Report Released Date/Time: Sep 07, 2024 11:59 AM Reporting Lab: [facility] [address] [facility] [address] Performing Lab: [address] [address] ALPHA-FETOPROTEIN(STL-PB) 15.01 ng/mL H 1- 8.78 Aug 31, 2024 02:04 PM [facility] COMPREHENSIVE METABOLIC PANEL PLASMA Specimen Type: PLASMA Comment: No hemolysis noted. Ordering Provider: TONY SIMMONS Report Released Date/Time: Aug 27, 2024 12:35 PM Reporting Lab: [address] [address] Performing Lab: [address] [address] CREATININE 0.90 mg/dL 0.7-1.3 UREA NITROGEN 26.4 [...] 93.6 >60 Aug 31, 2024 02:04 PM [facility] CBC BLOOD Specimen Type: BLOOD No comment entered. Ordering Provider: TONY SIMMONS Report Released Date/Time: Aug 27, 2024 12:35 PM Reporting Lab: [address] [address] Performing Lab: [address] [address] WBC 4.7 10*3/uL 3.6-11.2 RBC 3.54 10*6/uL [...] 10*3/uL 2.10-8.00 Aug 17, 2024 03:34 PM [facility] TSH W/ REFLEX FT4 (STL) PLASMA Specimen Type: PLASMA No comment entered. Ordering Provider: TONY SIMMONS Report Released Date/Time: Aug 10, 2024 12:01 PM Reporting Lab: [place] [phone] Performing Lab: [address] [address] TSH 4.570 u[IU]/mL 0.47-5 Aug 17, 2024 03:34 PM [facility] COMPREHENSIVE METABOLIC PANEL PLASMA Specimen Type: PLASMA Comment: No hemolysis noted. Ordering Provider: TONY SIMMONS Report Released Date/Time: Aug 10, 2024 12:01 PM Reporting Lab: [address] [address] Performing Lab: [address] [address] CREATININE 0.85 mg/dL 0.7-1.3 UREA NITROGEN 11.5 [...] Aug 17, 2024 03:34 PM [facility] CBC BLOOD Specimen Type: BLOOD Comment: No Clots Ordering Provider: TONY SIMMONS Report Released Date/Time: Aug 10, 2024 12:01 PM Reporting Lab: [address] [address] Performing Lab: [address] [address] WBC 5.0 10*3/uL 3.6-11.2 RBC 2.83 10*6/uL [...] 4.9 1.0-7.0 Aug 15, 2024 07:20 AM [facility] CBC BLOOD Specimen Type: BLOOD Comment: No clots detected in specimen. Ordering Provider: CASH CLOUD Report Released Date/Time: Aug 12, 2024 01:47 PM Reporting Lab: [address] [address] Performing Lab: [address] [address] WBC 4.9 10*3/uL 3.6-11.2 RBC 2.93 10*6/uL [...] 10*3/uL 2.10-8.00 Aug 15, 2024 04:54 AM [facility] GLUCOSE,BLOOD-poct (STL) BLOOD Specimen Type: BLOOD Comment: Test Performed by: [id number] Meter #: [id number] Ordering Provider: DEIRDRE WILD Report Released Date/Time: Aug 15, 2024 05:21 AM Reporting Lab: [facility] [address] [facility] [address] Performing Lab: [address] [address] GLUCOSE,BLOOD-poct (STL) 112 mg/dL H 72-99 Aug 14, 2024 08:30 PM [facility] CRP PLASMA Specimen Type: PLASM A No comment entered. Ordering Provider: CASH CLOUD Report Released Date/Time: Aug 12, 2024 10:14 AM Reporting Lab: [address] [address] Performing Lab: [facility] [address] [facility] [address] CRP 0.7 mg/dL H 0-0.5 Aug 14, 2024 08:30 PM [facility] CBC BLOOD Specimen Type: BLOOD No comment entered. Ordering Provider: GILSON OG Report Released Date/Time: Aug 10, 2024 04:01 PM Reporting Lab: [facility] [address] [facility] [address] Performing Lab: [facility] [address] [facility] [address] WBC 4.6 10*3/uL 3.6-11.2 RBC 2.83 10*6/uL [...] 10*3/uL 2.10-8.00 Aug 14, 2024 07:54 PM [facility] GLUCOSE,BLOOD-poct (STL) BLOOD Specimen Type: BLOOD Comment: Test Performed by: [id number] Meter #: [id number] Ordering Provider: DEIRDRE WILD Report Released Date/Time: Aug 14, 2024 08:15 PM Reporting Lab: [address] [address] Performing Lab: [place] [phone] GLUCOSE,BLOOD-poct (STL) 112 mg/dL H 72-99 Aug 14, 2024 04:10 PM [facility] GLUCOSE,BLOOD-poct (STL) BLOOD Specimen Type: BLOOD Comment: Test Performed by: [id number] Meter #: [id number] Ordering Provider: DEIRDRE WILD Report Released Date/Time: Aug 14, 2024 04:43 PM Reporting Lab: [place] [address] Performing Lab: [place] [phone] GLUCOSE,BLOOD-poct (STL) 115 mg/dL H 72-99 Aug 14, 2024 02:05 PM [facility] COMPREHENSIVE METABOLIC PANEL PLASMA Specimen Type: PLASMA Comment: No hemolysis noted. Ordering Provider: GILSON OG Report Released Date/Time: Aug 14, 2024 06:56 AM Reporting Lab: [address] [address] Performing Lab: [address] [address] CREATININE 0.75 mg/dL 0.7-1.3 UREA NITROGEN 9.3 [...] 98.9 >60 Aug 14, 2024 02:05 PM [facility] CBC BLOOD Specimen Type: BLOOD Comment: No platelet clots or clumping detected. Ordering Provider: GILSON OG Report Released Date/Time: Aug 10, 2024 04:01 PM Reporting Lab: [facility] [address] [facility] [address] Performing Lab: [address] [address] WBC 4.6 10*3/uL 3.6-11.2 RBC 3.06 10*6/uL [...] 10*3/uL 2.10-8.00 Aug 14, 2024 10:12 AM [facility] GLUCOSE,BLOOD-poct (STL) BLOOD Specimen Type: BLOOD Comment: Test Performed by: [id number] Meter #: [id number] Ordering Provider: DEIRDRE WILD Report Released Date/Time: Aug 14, 2024 10:13 AM Reporting Lab: [address] [address] Performing Lab: [address] [address] GLUCOSE,BLOOD-poct ([facility]) 112 mg/dL H 72-99 Aug 14, 2024 09:20 AM [facility] PT/INR NEW (L-MA) PLASMA Specimen Type: PLAS MA No comment entered. Ordering Provider: GILSON OG Report Released Date/Time: Aug 14, 2024 09:06 AM Reporting Lab: [address] [address] Performing Lab: [address] [address] PROTIME 13.6 s H 9.4-12.5 INR VALUE 1.2 {INR} Aug 14, 2024 06:51 AM [facility] CBC BLOOD Specimen Type: BLOOD No comment entered. Ordering Provider: CASH CLOUD Report Released Date/Time: Aug 12, 2024 01:47 PM Reporting Lab: [address] [address] Performing Lab: [address] [address] WBC 3.8 10*3/uL 3.6-11.2 RBC 2.56 10*6/uL [...] 10*3/uL 2.10-8.00 Aug 14, 2024 06:03 AM [facility] GLUCOSE,BLOOD-poct (STL) BLOOD Specimen Type: BLOOD Comment: Test Performed by: [id number] Meter #: [id number] Ordering Provider: DEIRDRE WILD Report Released Date/Time: Aug 14, 2024 06:07 AM Reporting Lab: [address] [address] Performing Lab: [address] [address] GLUCOSE,BLOOD-poct (STL) 114 mg/dL H 72-99 Aug 13, 2024 09:11 PM [facility] GLUCOSE,BLOOD-poct (STL) BLOOD Specimen Type: BLOOD Comment: Test Performed by: [id number] Meter #: [id number] Ordering Provider: DEIRDRE WILD Report Released Date/Time: Aug 13, 2024 09:40 PM Reporting Lab: [address] [address] Performing Lab: [address] [address] GLUCOSE,BLOOD-poct (STL) 160 mg/dL H 72-99 Aug 13, 2024 07:10 PM [facility] COMPREHENSIVE METABOLIC PANEL PLASMA Specimen Type: PLASMA Comment: No hemolysis noted. Ordering Provider: GILSON OG Report Released Date/Time: Aug 14, 2024 07:03 AM Reporting Lab: [address] [address] Performing Lab: [address] [address] CREATININE 0.75 mg/dL 0.7-1.3 UREA NITROGEN 10.3 [...] 98.9 >60 Aug 13, 2024 07:10 PM [facility] CRP PLASMA Specimen Type: PLASM A No comment entered. Ordering Provider: CASH CLOUD Report Released Date/Time: Aug 12, 2024 10:14 AM Reporting Lab: [address] [address] Performing Lab: [address] [address] CRP 0.7 mg/dL H 0-0.5 Aug 13, 2024 07:10 PM [facility] CBC BLOOD Specimen Type: BLOOD No comment entered. Ordering Provider: GILSON OG Report Released Date/Time: Aug 10, 2024 04:01 PM Reporting Lab: [address] [address] Performing Lab: [address] [address] WBC 5.3 10*3/uL 3.6-11.2 RBC 2.67 10*6/uL [...] 10*3/uL 2.10-8.00 Aug 13, 2024 04:35 PM [facility] GLUCOSE,BLOOD-poct (STL) BLOOD Specimen Type: BLOOD Comment: Test Performed by: [id number] Meter #: [id number] Ordering Provider: DEIRDRE WILD Report Released Date/Time: Aug 13, 2024 05:18 PM Reporting Lab: [facility] [address] [facility] [address] Performing Lab: [address] [address] GLUCOSE,BLOOD-poct (STL) 113 mg/dL H 72-99 Aug 13, 2024 02:36 PM [facility] CBC BLOOD Specimen Type: BLOOD No comment entered. Ordering Provider: GILSON OG Report Released Date/Time: Aug 10, 2024 04:01 PM Reporting Lab: [place] [address] [facility] [address] Performing Lab: [address] [address] WBC 5.8 10*3/uL 3.6-11.2 RBC 2.77 10*6/uL [...] 10*3/uL 2.10-8.00 Aug 13, 2024 11:37 AM [facility] GLUCOSE,BLOOD-poct (STL) BLOOD Specimen Type: BLOOD Comment: Test Performed by: [id number] Meter #: [id number] Ordering Provider: DEIRDRE WILD Report Released Date/Time: Aug 13, 2024 11:38 AM Reporting Lab: [address] [address] Performing Lab: [address] [address] GLUCOSE,BLOOD-poct (STL) 131 mg/dL H 72-99 Aug 13, 2024 08:06 AM [facility] CBC BLOOD Specimen Type: BLOOD Comment: no clot Ordering Provider: CASH CLOUD Report Released Date/Time: Aug 12, 2024 01:47 PM Reporting Lab: [address] [address] Performing Lab: [address] [address] WBC 3.0 10*3/uL L 3.6-11.2 RBC 2.61 [...] 10*3/uL 2.10-8.00 Aug 13, 2024 04:45 AM [facility] GLUCOSE,BLOOD-poct (STL) BLOOD Specimen Type: BLOOD Comment: Test Performed by: [id number] Meter #: [id number] Ordering Provider: DEIRDRE WILD Report Released Date/Time: Aug 13, 2024 06:18 AM Reporting Lab: [address] [address] Performing Lab: [address] [address] GLUCOSE,BLOOD-poct (STL) 139 mg/dL H 72-99 Aug 12, 2024 10:10 PM [facility] GLUCOSE,BLOOD-poct (STL) BLOOD Specimen Type: BLOOD Comment: Test Performed by: [id number] Meter #: [id number] Ordering Provider: DEIRDRE WILD Report Released Date/Time: Aug 12, 2024 10:50 PM Reporting Lab: [address] [address] Performing Lab: [address] [address] GLUCOSE,BLOOD-poct (STL) 105 mg/dL H 72-99 Aug 12, 2024 08:48 PM [facility] CBC BLOOD Specimen Type: BLOOD Comment: SEE PREVIOUS DIFFERENTIAL ON 08/12/24 @ 1807 Ordering Provider: GILSON OG Report Released Date/Time: Aug 10, 2024 04:01 PM Reporting Lab: [address] [address] Performing Lab: [address] [address] WBC 5.0 10*3/uL 3.6-11.2 RBC 2.78 10*6/uL [...] 6.5 1.0-7.0 Aug 12, 2024 08:48 PM [facility] CRP PLASMA Specimen Type: PLASM A No comment entered. Ordering Provider: CASH CLOUD Report Released Date/Time: Aug 12, 2024 10:14 AM Reporting Lab: [address] [address] Performing Lab: [address] [address] CRP 0.6 mg/dL H 0-0.5 Aug 12, 2024 04:51 PM [facility] GLUCOSE,BLOOD-poct (STL) BLOOD Specimen Type: BLOOD Comment: Test Performed by: [id number] Meter #: [id number] Ordering Provider: DEIRDRE WILD Report Released Date/Time: Aug 12, 2024 05:07 PM Reporting Lab: [address] [address] Performing Lab: [address] [address] GLUCOSE,BLOOD-poct (STL) 135 mg/dL H 72-99 Aug 12, 2024 02:33 PM [facility] CBC BLOOD Specimen Type: BLOOD No comment entered. Ordering Provider: GILSON OG Report Released Date/Time: Aug 10, 2024 04:01 PM Reporting Lab: [address] [address] Performing Lab: [address] [address] WBC 4.0 10*3/uL 3.6-11.2 RBC 2.56 10*6/uL [...] 10*3/uL 2.10-8.00 Aug 12, 2024 11:51 AM [facility] GLUCOSE,BLOOD-poct (STL) BLOOD Specimen Type: BLOOD Comment: Test Performed by: [id number] Meter #: [id number] Ordering Provider: DEIRDRE WILD Report Released Date/Time: Aug 12, 2024 12:26 PM Reporting Lab: [address] [address] Performing Lab: [address] [address] GLUCOSE,BLOOD-poct (STL) 139 mg/dL H 72-99 Aug 12, 2024 07:35 AM [facility] CBC BLOOD Specimen Type: BLOOD Comment: prev diff 08/11/24. Ordering Provider: GILSON OG Report Released Date/Time: Aug 10, 2024 04:01 PM Reporting Lab: [address] [address] Performing Lab: [address] [address] WBC 3.0 10*3/uL L 3.6-11.2 RBC 2.54 [...] 0.00-0. 20 Aug 12, 2024 05:49 AM [facility] GLUCOSE,BLOOD-poct (STL) BLOOD Specimen Type: BLOOD Comment: Test Performed by: [id number] Meter #: [id number] Ordering Provider: DEIRDRE WILD Report Released Date/Time: Aug 12, 2024 05:50 AM Reporting Lab: [address] [address] Performing Lab: [address] [address] GLUCOSE,BLOOD-poct (STL) 112 mg/dL H 72-99 Aug 12, 2024 01:45 AM [facility] CBC BLOOD Specimen Type: BLOOD Comment: SEE PREVIOUS DIFFERENTIAL ON 08/12/24 @ 0239 [facility] Ordering Provider: GILSON OG Report Released Date/Time: Aug 10, 2024 04:01 PM Reporting Lab: [address] [address] Performing Lab: [address] [address] WBC 2.6 10*3/uL L 3.6-11.2 RBC 2.42 [...] 6.4 1.0-7.0 Aug 11, 2024 09:25 PM [facility] CBC BLOOD Specimen Type: BLOOD No comment entered. Ordering Provider: GILSON OG Report Released Date/Time: Aug 10, 2024 04:01 PM Reporting Lab: [address] [address] Performing Lab: [address] [address] WBC 3.6 10*3/uL 3.6-11.2 RBC 2.54 10*6/uL [...] 10*3/uL 2.10-8.00 Aug 11, 2024 09:17 PM [facility] GLUCOSE,BLOOD-poct (STL) BLOOD Specimen Type: BLOOD Comment: Test Performed by: [id number] Meter #: [id number] Ordering Provider: EDIRDRE WILD Report Released Date/Time: Aug 11, 2024 09:21 PM Reporting Lab: [address] [address] Performing Lab: [address] [address] GLUCOSE,BLOOD-poct (STL) 167 mg/dL H 72-99 Aug 11, 2024 04:42 PM [facility] CBC BLOOD Specimen Type: BLOOD No comment entered. Ordering Provider: YVONNE HARRISON Report Released Date/Time: Aug 11, 2024 04:41 PM Reporting Lab: [address] [address] Performing Lab: [address] [address] WBC 4.0 10*3/uL 3.6-11.2 RBC 2.74 10*6/uL [...] 10*3/uL 2.10-8.00 Aug 11, 2024 04:30 PM [facility] GLUCOSE,BLOOD-poct (STL) BLOOD Specimen Type: BLOOD Comment: Test Performed by: [id number] Meter #: [id number] Ordering Provider: DEIRDRE WILD Report Released Date/Time: Aug 11, 2024 06:06 PM Reporting Lab: [address] [address] Performing Lab: [address] [address] GLUCOSE,BLOOD-poct (STL) 95 mg/dL 72-99 Aug 11, 2024 11:08 AM [facility] GLUCOSE,BLOOD-poct (L) BLOOD Specimen Type: BLOOD Comment: Test Performed by: [id number] Meter #: [id number] Ordering Provider: DEIRDRE WILD Report Released Date/Time: Aug 11, 2024 11:10 AM Reporting Lab: [address] [address] Performing Lab: [address] [address] GLUCOSE,BLOOD-poct (L) 117 mg/dL H 72-99 Aug 11, 2024 06:00 AM [facility] PT/INR NEW (STL-MA) PLASMA Specimen Type: PLAS MA No comment entered. Ordering Provider: GILSON OG Report Released Date/Time: Aug 10, 2024 06:20 PM Reporting Lab: [address] [address] Performing Lab: [address] [address] PROTIME 15.5 s H 9.4-12.5 INR VALUE 1.4 {INR} Aug 11, 2024 06:00 AM [facility] IRON/TIBC PROFILE SERUM Specimen Type: SERUM No comment entered. Ordering Provider: GILSON OG Report Released Date/Time: Aug 10, 2024 04:02 PM Reporting Lab: [address] [address] Performing Lab: [address] [address] TIBC 263 ug/dL 250-450 TRANSFERRIN 210 mg/dL 163-344 IRON SATURATION 8 L 20-50 IRON 21 ug/dL L 65-175 Aug 11, 2024 06:00 AM [facility] HEPATIC FUNTION PANEL (STL) PLASMA Specimen Ty pe: PLASMA No comment entered. Ordering Provider: GILSON OG Report Released Date/Time: Aug 10, 2024 04:02 PM Reporting Lab: [address] [address] Performing Lab: [address] [address] PROTEIN 5.4 g/dL L 6-8.6 ALBUMIN 2.6 g/dL L 3.4-5 TOTAL BILIRUBIN 0.8 mg/dL 0.2-1.2 ALKALINE PHOSPHATASE 72 U/L 40-150 AST/SGOT 28 U/L 5-34 ALT/SGPT 10 U/L 8-40 CONJ. BILIRUBIN 0.4 mg/dL 0-0.5 Aug 11, 2024 06:00 AM [facility] APTT PLASMA Specimen Type: PLASM A No comment entered. Ordering Provider: GILSON OG Report Released Date/Time: Aug 10, 2024 06:20 PM Reporting Lab: [facility] [address] [facility] [address] Performing Lab: [address] [address] APTT 25.5 s L 26.7-39.9 Aug 11, 2024 06:00 AM [facility] CBC BLOOD Specimen Type: BLOOD No comment entered. Ordering Provider: GILSON OG Report Released Date/Time: Aug 10, 2024 04:01 PM Reporting Lab: [place] [address] [facility] [address] Performing Lab: [address] [address] WBC 2.4 10*3/uL L 3.6-11.2 RBC 2.42 [...] L 2.10-8.00 Aug 10, 2024 09:00 PM [facility] BASIC METABOLIC PANEL PLASMA Specimen Type: PL ASMA Comment: No hemolysis noted. Ordering Provider: GILSON OG Report Released Date/Time: Aug 10, 2024 04:01 PM Reporting Lab: [address] [address] Performing Lab: [address] [address] CREATININE 0.84 mg/dL 0.7-1.3 UREA NITROGEN 16.8 mg/dL 9.0-25.0 GLUCOSE 104 mg/dL H 72-99 SODIUM 133 meq/L L 136-145 POTASSIUM 3.5 meq/L 3.5-5 CHLORIDE 103 meq/L 98-107 CARBON DIOXIDE 23 meq/L 22-31 CALCIUM 8.4 mg/dL 8.4-10.4 EGFR (CKD-EPI 2020) 95.6 >60 Aug 10, 2024 09:00 PM [facility] CBC BLOOD Specimen Type: BLOOD No comment entered. Ordering Provider: GILSON OG Report Released Date/Time: Aug 10, 2024 04:01 PM Reporting Lab: [address] [address] Performing Lab: [address] [address] WBC 4.3 10*3/uL 3.6-11.2 RBC 2.22 10*6/uL [...] 10*3/uL 2.10-8.00 Aug 10, 2024 06:30 PM [facility] MRSA SURVL NARES DNA NARES [...] Aug 10, 2024 04:01 PM Reporting Lab: [address] [address] Performing Lab: [address] [address] MRSA SURVL NARES DNA Negative Negative Aug 10, 2024 06:02 PM [facility] GLUCOSE,BLOOD-poct (L) BLOOD Specimen Type: BLOOD Comment: Test Performed by: [id number] Meter #: [id number] Ordering Provider: YASIR SANZ MD Report Released Date/Time: Aug 10, 2024 06:04 PM Reporting Lab: [address] [address] Performing Lab: [address] [address] GLUCOSE,BLOOD-poct (L) 94 mg/dL 72-99 Aug 10, 2024 02:12 PM [facility] PT/INR NEW (STL-MA) PLASMA Specimen Type: PLAS MA No comment entered. Ordering Provider: YASIR SANZ MD Report Released Date/Time: Aug 10, 2024 02:00 PM Reporting Lab: [address] [address] Performing Lab: [address] [address] PROTIME 13.8 s H 9.4-12.5 INR VALUE 1.2 {INR} Aug 10, 2024 02:12 PM [facility] APTT PLASMA Specimen Type: PLASM A No comment entered. Ordering Provider: YASIR SANZ MD Report Released Date/Time: Aug 10, 2024 02:00 PM Reporting Lab: [address] [address] Performing Lab: [address] [address] APTT 20.1 s L 26.7-39.9 Aug 10, 2024 11:30 AM [facility] TSH W/ REFLEX FT4 (STL) PLASMA Specimen Type: PLASMA No comment entered. Ordering Provider: TONY SIMMONS Report Released Date/Time: Aug 02, 2024 12:33 PM Reporting Lab: [address] [address] Performing Lab: [address] [address] TSH 3.991 u[IU]/mL 0.47-5 Aug 10, 2024 11:30 AM [facility] COMPREHENSIVE METABOLIC PANEL PLASMA Specimen Type: PLASMA Comment: No hemolysis noted. Ordering Provider: TONY SIMMONS Report Released Date/Time: Aug 02, 2024 12:33 PM Reporting Lab: [address] [address] Performing Lab: [address] [address] CREATININE 0.82 mg/dL 0.7-1.3 UREA NITROGEN 21.7 [...] 96.3 >60 Aug 10, 2024 11:30 AM [facility] CBC BLOOD Specimen Type: BLOOD No comment entered. Ordering Provider: TONY SIMMONS Report Released Date/Time: Aug 02, 2024 12:33 PM Reporting Lab: [place] [address] [facility] [address] Performing Lab: [address] [address] WBC 7.4 10*3/uL 3.6-11.2 RBC 2.81 10*6/uL [...] 0.00-0. 20 Aug 02, 2024 11:53 AM [facility] PROTEIN ELECTROPHORESIS BLOOD SERUM Specimen Type: SERUM Comment: Reference Range: None Detected NOTE: THIS RESULT IS FLAGGED ABNORMAL Evaluation reveals a restricted band (M-spike) migrating in the gamma globulin region. If not already requested, Immunofixation should be considered. Test Performed by [facility], [facility], [address] [place] [address] Tristin Iyer M.D., Ph.D., Director of Laboratories , CLIA [id number] PREVIOUS SUGAR: IgG Brimhall Nizhoni Ordering Provider: TONY SIMMONS Report Released Date/Time: Jul 13, 2024 01:49 PM Reporting Lab: [address] [address] Performing Lab: [facility] [address] [facility] ALPHA-1 GLOBULIN(SO-PB-STL) 0.4 g/dL H 0.2 [...] g/dL H Aug 02, 2024 11:53 AM [facility] IGA (STL) PLASMA Specimen Type: PLASM A Comment: No hemolysis noted. Ordering Provider: TONY SIMMONS Report Released Date/Time: Jul 13, 2024 01:49 PM Reporting Lab: [address] [place] [address] Performing Lab: [facility] [address] [facility] [address] IGA (STL) 113 mg/dL 63-484 Aug 02, 2024 11:53 AM [facility] IGG (STL) PLASMA Specimen Type: PLASM A Comment: No hemolysis noted. Ordering Provider: TONY SIMMONS Report Released Date/Time: Jul 13, 2024 01:49 PM Reporting Lab: [facility] [address] [facility] [address] Performing Lab: [place] [address] [facility] [address] IGG (STL) 1898 mg/dL H 540-1822 Aug 02, 2024 11:53 AM [facility] TSH W/ REFLEX FT4 (STL) PLASMA Specimen Type: PLASMA No comment entered. Ordering Provider: TONY SIMMONS Report Released Date/Time: Jul 13, 2024 01:49 PM Reporting Lab: [place] [address] [address] [facility] [address] Performing Lab: [place] [address] [facility] [address] TSH 2.182 u[IU]/mL 0.47-5 Aug 02, 2024 11:53 AM [facility] IGM (STL) PLASMA Specimen Type: PLASM A Comment: No hemolysis noted. Ordering Provider: TONY SIMMONS Report Released Date/Time: Jul 13, 2024 01:49 PM Reporting Lab: [place] [address] [facility] [address] Performing Lab: [place] [address] [facility] [address] IGM (STL) 104 mg/dL 22-240 Aug 02, 2024 11:53 AM [facility] KAPPA/LAMBDA FREE LC PANEL (STL-PB) SERUM Spe cimen Type: SERUM No comment entered. Ordering Provider: TONY SIMMONS Report Released Date/Time: Jul 13, 2024 01:49 PM Reporting Lab: [address] [address] Performing Lab: [address] [address] KAPPA FREE LC (STL) 102.7 mg/L H 2.4-20.7 LAMBDA FREE LC (STL) 32.2 mg/L H 4.2-27.7 KAPPA/LAMBDA RATIO (STL) 3.19 H 0.22-1. 74 Aug 02, 2024 11:53 AM [facility] COMPREHENSIVE METABOLIC PANEL PLASMA Specimen Type: PLASMA Comment: No hemolysis noted. Ordering Provider: TONY SIMMONS Report Released Date/Time: Jul 13, 2024 01:49 PM Reporting Lab: [address] [address] Performing Lab: [address] [address] CREATININE 0.82 mg/dL 0.7-1.3 UREA NITROGEN 12.2 [...] 96.3 >60 Aug 02, 2024 11:53 AM [facility] CBC BLOOD Specimen Type: BLOOD Comment: No Clots in specimen Ordering Provider: TONY SIMMONS Report Released Date/Time: Jul 13, 2024 01:49 PM Reporting Lab: [address] [address] Performing Lab: [address] [place] [address] WBC 2.2 10*3/uL L 3.6-11.2 RBC 3.44 [...] L 2.10-8.00 Aug 01, 2024 10:10 AM [facility] GLUCOSE,BLOOD-poct (STL) BLOOD Specimen Type: BLOOD Comment: Test Performed by: [id number] Meter #: [id number] Ordering Provider: SUKHJINDER CHAHAL Report Released Date/Time: Aug 01, 2024 10:17 AM Reporting Lab: [address] [address] Performing Lab: [address] [address] GLUCOSE,BLOOD-poct (STL) 101 mg/dL H 72-99 Jul 27, 2024 01:54 PM [facility] TROPONIN I PLASMA Specimen Type: PLASM A Comment: No hemolysis noted. Ordering Provider: ELIZABETH COATES Report Released Date/Time: Jul 27, 2024 03:39 PM Reporting Lab: [address] [address] Performing Lab: [address] [address] TROPONIN I 0.011 ng/mL 0-0.033 Jul 27, 2024 01:54 PM [facility] BRAIN NATRIURETIC PEPTIDE PLASMA Specimen Type : PLASMA No comment entered. Ordering Provider: ELIZABETH COATES Report Released Date/Time: Jul 27, 2024 03:39 PM Reporting Lab: [address] [address] Performing Lab: [address] [address] BRAIN NATRIURETIC PEPTIDE 257.2 pg/mL H 0- 100 Jul 27, 2024 01:54 PM [facility] COMPREHENSIVE METABOLIC PANEL PLASMA Specimen Type: PLASMA Comment: No hemolysis noted. Ordering Provider: ELIZABETH COATES Report Released Date/Time: Jul 27, 2024 03:39 PM Reporting Lab: [address] [address] Performing Lab: [address] [address] CREATININE 0.70 mg/dL 0.7-1.3 UREA NITROGEN 7.4 [...] 101.0 >60 Jul 27, 2024 01:54 PM [facility] CBC BLOOD Specimen Type: BLOOD No comment entered. Ordering Provider: ELIZABETH COATES Report Released Date/Time: Jul 27, 2024 03:39 PM Reporting Lab: [facility] [address] [facility] [address] Performing Lab: [place] [address] [facility] [address] WBC 3.2 10*3/uL L 3.6-11.2 RBC 3.12 [...] Jul 21, 2024 02:00 PM [facility] B12 SERUM Specimen Type: SERUM No comment entered. Ordering Provider: JORJE DENSON Report Released Date/Time: Jul 21, 2024 12:54 PM Reporting Lab: [address] [address] Performing Lab: [place] [address] [facility] [address] B12 1584 pg/mL H 213-816 Jul 21, 2024 02:00 PM [facility] FOLATE (L-MA) SERUM Specimen Type: SERUM No comment entered. Ordering Provider: JORJE DENSON Report Released Date/Time: Jul 21, 2024 12:54 PM Reporting Lab: [address] [address] Performing Lab: [address] [address] FOLATE (L-MA) 9.1 ng/mL 7-20 Jul 21, 2024 02:00 PM [facility] IRON/TIBC PROFILE SERUM Specimen Type: SERUM No comment entered. Ordering Provider: JORJE DENSNO Report Released Date/Time: Jul 21, 2024 12:54 PM Reporting Lab: [address] [address] Performing Lab: [address] [address] TIBC 243 ug/dL L 250-450 TRANSFERRIN 194 mg/dL 163-344 IRON SATURATION 20 20-50 IRON 49 ug/dL L 65-175 Jul 21, 2024 02:00 PM [facility] CBC BLOOD Specimen Type: BLOOD Comment: Manual differential performed 07/20/2024 No clots Ordering Provider: JORJE DENSON Report Released Date/Time: Jul 21, 2024 12:54 PM Reporting Lab: [address] [address] Performing Lab: [address] [address] WBC 5.6 10*3/uL 3.6-11.2 RBC 2.87 10*6/uL [...] H 1.0-7.0 Jul 20, 2024 08:55 PM [facility] PT/INR NEW (STL-MA) PLASMA Specimen Type: PLAS MA No comment entered. Ordering Provider: AURA ZACARIAS Report Released Date/Time: Jul 18, 2024 01:30 PM Reporting Lab: [address] [address] Performing Lab: [address] [address] PROTIME 12.8 s H 9.4-12.5 INR VALUE 1.1 {INR} Jul 20, 2024 08:55 PM [facility] BASIC METABOLIC PANEL PLASMA Specimen Type: PL ASMA Comment: No hemolysis noted. Ordering Provider: AURA ZACARIAS Report Released Date/Time: Jul 18, 2024 01:30 PM Reporting Lab: [address] [address] Performing Lab: [address] [address] CREATININE 0.74 mg/dL 0.7-1.3 UREA NITROGEN 15.1 mg/dL 9.0-25.0 GLUCOSE 121 mg/dL H 72-99 SODIUM 130 meq/L L 136-145 POTASSIUM 3.7 meq/L 3.5-5 CHLORIDE 100 meq/L 98-107 CARBON DIOXIDE 20 meq/L L 22-31 CALCIUM 8.5 mg/dL 8.4-10.4 EGFR (CKD-EPI 2020) 99.3 >60 Jul 20, 2024 08:55 PM [facility] CBC BLOOD Specimen Type: BLOOD No comment entered. Ordering Provider: AURA ZACARIAS Report Released Date/Time: Jul 18, 2024 01:30 PM Reporting Lab: [address] [address] Performing Lab: [address] [address] WBC 5.1 10*3/uL 3.6-11.2 RBC 2.90 10*6/uL [...] 2.10-8.00 Jul 20, 2024 01:13 PM [facility] CBC BLOOD Specimen Type: BLOOD No comment entered. Ordering Provider: AURA ZACARIAS Report Released Date/Time: Jul 18, 2024 01:30 PM Reporting Lab: [place] [address] [facility] [address] Performing Lab: [address] [address] WBC 5.6 10*3/uL 3.6-11.2 RBC 3.11 10*6/uL [...] 10*3/uL 2.10-8.00 Jul 19, 2024 06:42 AM [facility] PT/INR NEW (STL-MA) PLASMA Specimen Type: PLAS MA No comment entered. Ordering Provider: AURA ZACARIAS Report Released Date/Time: Jul 18, 2024 01:30 PM Reporting Lab: [address] [address] Performing Lab: [address] [address] PROTIME 16.4 s H 9.4-12.5 INR VALUE 1.5 {INR} Jul 19, 2024 06:42 AM [facility] BASIC METABOLIC PANEL PLASMA Specimen Type: PL ASMA Comment: No hemolysis noted. Ordering Provider: AURA ZACARIAS Report Released Date/Time: Jul 18, 2024 01:30 PM Reporting Lab: [address] [address] Performing Lab: [address] [address] CREATININE 0.94 mg/dL 0.7-1.3 UREA NITROGEN 23.8 mg/dL 9.0-25.0 GLUCOSE 87 mg/dL 72-99 SODIUM 129 meq/L L 136-145 POTASSIUM 3.4 meq/L L 3.5-5 CHLORIDE 102 meq/L 98-107 CARBON DIOXIDE 20 meq/L L 22-31 CALCIUM 8.1 mg/dL L 8.4-10.4 EGFR (CKD-EPI 2020) 88.9 >60 Jul 19, 2024 06:42 AM [facility] CBC BLOOD Specimen Type: BLOOD No comment entered. Ordering Provider: AURA ZACARIAS Report Released Date/Time: Jul 18, 2024 01:30 PM Reporting Lab: [address] [address] Performing Lab: [address] [address] WBC 5.1 10*3/uL 3.6-11.2 RBC 2.45 10*6/uL [...] H 1.0-7.0 Jul 18, 2024 08:51 PM [facility] CBC BLOOD Specimen Type: BLOOD No comment entered. Ordering Provider: AURA ZACARIAS Report Released Date/Time: Jul 18, 2024 01:30 PM Reporting Lab: [address] [address] Performing Lab: [address] [address] WBC 6.2 10*3/uL 3.6-11.2 RBC 2.44 10*6/uL [...] 10*3/uL 2.10-8.00 Jul 18, 2024 04:19 PM [facility] CBC BLOOD Specimen Type: BLOOD No comment entered. Ordering Provider: AURA ZACARIAS Report Released Date/Time: Jul 18, 2024 01:30 PM Reporting Lab: [address] [address] Performing Lab: [facility] [address] [facility] [address] WBC 6.1 10*3/uL 3.6-11.2 RBC 2.57 10*6/uL [...] 10*3/uL 2.10-8.00 Jul 18, 2024 06:32 AM [facility] LACTIC ACID (STL-PB) PLASMA Specimen Type: NEIL SMA No comment entered. Ordering Provider: CAMDEN PATTON Report Released Date/Time: Jul 17, 2024 07:38 PM Reporting Lab: [address] [address] Performing Lab: [address] [address] LACTIC ACID (STL-PB) 1.3 mmol/L 0.5-2.0 Jul 18, 2024 06:32 AM [facility] PT/INR NEW (STL-MA) PLASMA Specimen Type: PLAS MA No comment entered. Ordering Provider: CAMDEN PATTON Report Released Date/Time: Jul 17, 2024 07:38 PM Reporting Lab: [address] [address] Performing Lab: [address] [address] PROTIME 19.1 s H 9.4-12.5 INR VALUE 1.7 {INR} Jul 18, 2024 06:32 AM [facility] CBC BLOOD Specimen Type: BLOOD Comment: HGB Called to : Dr. Posadas MOD at: [id number] on: 07/18/24 by: [email or web address] Critical Verbal Readback Performed Ordering Provider: CAMDEN PATTON Report Released Date/Time: Jul 17, 2024 07:38 PM Reporting Lab: [address] [address] Performing Lab: [address] [address] WBC 7.0 10*3/uL 3.6-11.2 RBC 2.04 10*6/uL [...] 10*3/uL 2.10-8.00 Jul 18, 2024 06:32 AM [facility] VANCOMYCIN (STL) PLASMA Specimen Type: PLASM A No comment entered. Ordering Provider: CAMDEN PATTON Report Released Date/Time: Jul 17, 2024 07:38 PM Reporting Lab: [place] [phone] Performing Lab: [facility] [address] [facility] [address] VANCOMYCIN (STL) 5.0 ug/mL L 10-15 Jul 18, 2024 06:32 AM [facility] MAGNESIUM PLASMA Specimen Type: PLASM A Comment: No hemolysis noted. Ordering Provider: CAMDNE PATTON Report Released Date/Time: Jul 17, 2024 07:38 PM Reporting Lab: [address] [address] Performing Lab: [address] [address] MAGNESIUM 1.5 mg/dL L 1.6-2.6 Jul 18, 2024 06:32 AM [facility] PHOSPHOROUS PLASMA Specimen Type: PLASM A Comment: No hemolysis noted. Ordering Provider: CAMDEN PATTON Report Released Date/Time: Jul 17, 2024 07:38 PM Reporting Lab: [address] [address] Performing Lab: [address] [address] PHOSPHOROUS 2.2 mg/dL L 2.3-4.7 Jul 18, 2024 06:32 AM [facility] COMPREHENSIVE METABOLIC PANEL PLASMA Specimen Type: PLASMA Comment: No hemolysis noted. Ordering Provider: CAMDEN PATTON Report Released Date/Time: Jul 17, 2024 07:38 PM Reporting Lab: [address] [address] Performing Lab: [address] [address] CREATININE 1.08 mg/dL 0.7-1.3 UREA NITROGEN 40.5 [...] 75.2 >60 Jul 18, 2024 12:05 AM [facility] HGB,HCT,PLT BLOOD Specimen Type: BLOOD No comment entered. Ordering Provider: ROSA VARGAS Report Released Date/Time: Jul 17, 2024 09:07 PM Reporting Lab: [address] [address] Performing Lab: [address] [address] HGB 7.3 g/dL L 13.1-16.8 HCT 21.0 L 38.2-48.4 PLT 64 10*3/uL L 150-400 Jul 17, 2024 07:45 PM [facility] MRSA SURVL NARES DNA NARES [...] Jul 17, 2024 07:38 PM Reporting Lab: [address] [address] Performing Lab: [address] [address] MRSA SURVL NARES DNA Negative Negative Jul 17, 2024 07:36 PM [facility] GLUCOSE,BLOOD-poct (STL) BLOOD Specimen Type: BLOOD Comment: Test Performed by: [id number] Meter #: [id number] Ordering Provider: CAMDEN PATTON Report Released Date/Time: Jul 17, 2024 07:48 PM Reporting Lab: [address] [address] Performing Lab: [address] [address] GLUCOSE,BLOOD-poct ([facility]) 98 mg/dL 72-99 Jul 17, 2024 07:35 PM [facility] BLOOD GAS PANEL ABG ([facility]) VENOUS BLOOD Specimen Type : VENOUS BLOOD Comment: normalcy status - Below absolute low-off instrument scale Test Performed by: [id number] Meter #: [id number] Ordering Provider: CAMDEN PATTON Report Released Date/Time: Jul 17, 2024 07:37 PM Reporting Lab: [address] [address] Performing Lab: [address] [address] GEM PH 7.39 7.31-7.41 GEM PCO2 31 [...] TEMP 37.0 Jul 17, 2024 07:10 PM [facility] URINALYSIS W/ CX REFLEX (STL-PB) URINE Specim en Type: URINE No comment entered. Ordering Provider: CASEY BOONE Report Released Date/Time: Jul 17, 2024 04:24 PM Reporting Lab: [address] [address] Performing Lab: [address] [address] URINE COLOR Light-Yellow Yellow U.BILIRUBIN Negative mg/dL Negative U.PH 6.0 5.0-8.0 APPEARANCE Clear Clear U.NITRITE Negative mg/dL Negative URN.GLUCOSE Normal mg/dL Negative URN.PROTEIN Negative mg/dL URN.UROBILINOGEN Normal mg/dL Normal URN.BLOOD Negative mg/dL Negative-Trace URN.KETONES Trace mg/dL Negative-Trace URN.LEUK.EST. Negative mg/dL Negative-Tr april URN.SPECIFIC GRAVITY 1.029 Jul 17, 2024 06:25 PM [facility] RETICULOCYTE PANEL BLOOD Specimen Type: BLOOD No comment entered. Ordering Provider: CASEY BOONE Report Released Date/Time: Jul 17, 2024 06:13 PM Reporting Lab: [address] [address] Performing Lab: [address] [address] RETIC RATIO 7.35 H 0.50-2.30 IRF 39.7 H 2.3-13.4 RETICULOCYTE HEMOGLOBIN EQUIVALENT 35.8 pg 28.2-36.6 RETIC COUNT,ABS 0.129 10*6/uL H 0.022-0.10 1 Jul 17, 2024 06:25 PM [facility] HAPTOGLOBIN (STL) PLASMA Specimen Type: PLASM A No comment entered. Ordering Provider: CASEY BOONE Report Released Date/Time: Jul 17, 2024 06:13 PM Reporting Lab: [address] [address] Performing Lab: [address] [address] HAPTOGLOBIN (STL) 93 mg/dL 44-215 Jul 17, 2024 06:25 PM [facility] LDH PLASMA Specimen Type: PLASM A No comment entered. Ordering Provider: CASEY BOONE Report Released Date/Time: Jul 17, 2024 06:13 PM Reporting Lab: [address] [address] Performing Lab: [address] [address] LDH 305 U/L H 125-243 Jul 17, 2024 06:25 PM [facility] CBC BLOOD Specimen Type: BLOOD Comment: HGB Called to : Watson White at: 1934 on:[id number] by: [facility] Critical Verbal Readback Performed Ordering Provider: CAMDEN PATTON Report Released Date/Time: Jul 17, 2024 07:09 PM Reporting Lab: [address] [address] Performing Lab: [address] [address] WBC 27.6 10*3/uL H 3.6-11.2 RBC 1.76 [...] H 2.10-8.00 Jul 17, 2024 04:59 PM [facility] BLOOD GAS PANEL ABG (STL) VENOUS BLOOD Specimen Type : VENOUS BLOOD Comment: Test Performed by: [id number] Meter #: [id number] Ordering Provider: CASEY BOONE Report Released Date/Time: Jul 17, 2024 05:00 PM Reporting Lab: [address] [address] Performing Lab: [address] [address] GEM PH 7.39 7.31-7.41 GEM PCO2 33 [...] TEMP 37.0 Jul 17, 2024 04:25 PM [facility] MAGNESIUM PLASMA Specimen Type: PLASM A Comment: No hemolysis noted. Ordering Provider: CASEY BOONE Report Released Date/Time: Jul 17, 2024 04:24 PM Reporting Lab: [address] [address] Performing Lab: [address] [address] MAGNESIUM 1.4 mg/dL L 1.6-2.6 Jul 17, 2024 04:25 PM [facility] PT/INR NEW (STL-MA) PLASMA Specimen Type: PLAS MA No comment entered. Ordering Provider: CASEY BOONE Report Released Date/Time: Jul 17, 2024 04:24 PM Reporting Lab: [facility] [address] [facility] [address] Performing Lab: [facility] [address] [facility] [address] PROTIME 25.3 s H 9.4-12.5 INR VALUE 2.3 {INR} Jul 17, 2024 04:25 PM [facility] COVID-19 DIAGNOSTIC (FLU/RSV)(ST) NASOPHARYNX Spec imen Type: NASOPHARYNX Comment: Qualitative [...] Jul 17, 2024 04:24 PM Reporting Lab: [facility] [address] [facility] [address] Performing Lab: [address] [address] INFLUENZA A Negative Negative INFLUENZA B Negative Negative COVID-19 (L-PB) Not Detected Not Detec nate RSV (Cepheid) NEGATIVE Negative Jul 17, 2024 04:25 PM [facility] COMPREHENSIVE METABOLIC PANEL PLASMA Specimen Type: PLASMA Comment: No hemolysis noted. Ordering Provider: CASEY BOONE Report Released Date/Time: Jul 17, 2024 04:24 PM Reporting Lab: [facility] [address] [facility] [address] Performing Lab: [facility] [address] [facility] [address] CREATININE 1.25 mg/dL 0.7-1.3 UREA NITROGEN 47.0 [...] 63.1 >60 Jul 17, 2024 04:25 PM [facility] CBC BLOOD Specimen Type: BLOOD No comment entered. Ordering Provider: CASEY BOONE Report Released Date/Time: Jul 17, 2024 04:24 PM Reporting Lab: [address] [address] Performing Lab: [address] [address] WBC 42.4 10*3/uL H 3.6-11.2 RBC 2.20 [...] Height Weight Body Mass Index Source Aug 15, 2024 08:21 AM 0 [facility] Aug 15, 2024 08:17 AM 98.6 78 141/76 17 97 0 [facility] Aug 15, 2024 04:51 AM 98.1 68 134/78 14 97 155.65 21 [facility] Aug 15, 2024 04:40 AM 1 [facility] Aug 15, 2024 03:34 AM 6 [facility] Social History: Smoking Status [...] 04:02 PM ORYX ADMIT TOBACCO SCREEN NO [facility] Tobacco Use History This section includes a history of the smoking, or tobacco-related health factors, that were collected on or before the date of the Encounter. The data comes from the [place] facility where the Encounter took place. Date/Time Smoking Status/Tobacco Use Comment F acility Jan 20, 2023 03:49 PM VA-TOBACCO FORMER USER [facility] Jan 20, 2023 03:49 PM VA-TOBACCO QUIT 15 YRS OR MORE [facility] Feb 06, 2021 04:28 PM VA-TOBACCO FORMER USER [facility] Feb 06, 2021 04:28 PM VA-TOBACCO QUIT 15 YRS OR MORE [facility] Radiology Reports: +/- 30 days [...] BLOOD FLOW ABD/RENAL DOPPLER (COMPLETE): ABRAHAM HAWK [id number] -1955 Ex Date: AUG 23, 2024@12:12 Req Phys: GILSON OG Pat Loc: [facility]GEN MED INPT VISIT (Req'g L Img Loc: [facility] Service: [address] [address] (Case [id number] COMPLETE) US BLOOD FLOW ABD/RENAL DOPPLER ((US Detailed) CPT:65183 Reason for Study: dopplers Clinical History: Report Status: Verified Date Reported: AUG 23, 2024 Date Verified: AUG 23, 2024 Gi Asst E-Sig:/ES/PETROS MCCORD Report: Case [id number], [id number]. US ABDOMEN LTD, SINGLE ORG OR QUADRANT, [...] vasculature. Primary Interpreting Staff: PETROS MCCORD MD (Gi Asst) /PETROS SRIVASTAVA [facility] Aug 23, 2024 12:12 PM US ABDOMEN LTD, SINGLE ORG OR QUADRANT: ABRAHAM HAWK [id number] -1955 M Exm Date: AUG 23, 2024@12:12 Req Phys: GILSON OG Pat Loc: [facility] INPT VISIT (Req'g L Img Loc: [facility] Service: [address] [address] (Case [id number] COMPLETE) US ABDOMEN LTD, SINGLE ORG OR CARLITOS(US Detailed) CPT:91695 Reason for Study: Possible SBP, RUQUS with dopplers, please comment on ascites? Clinical History: Report Status: Verified Date Reported: AUG 23, 2024 Date Verified: AUG 23, 2024 Gi Asst E-Sig:/ES/PETROS MCCORD Report: Case [id number], [id number]. US ABDOMEN LTD, SINGLE ORG OR QUADRANT, [...] vasculature. Primary Interpreting Staff: PETROS MCCORD MD (Gi Asst) /PETROS SRIVASTAVA [facility] Aug 10, 2024 02:[address] ABD PEL W/CONT & 3D: ABRAHAM HAWK [id number] -1955 M Ex Date: AUG 10, 2024@14:33 Req Phys: YASIR SANZ MD Pat Loc: [facility]EMERGENCY DEPT 2ND SHIFT (R Img Loc: [facility]CT IMAGING [facility] Service: Unknown [facility] [address] [place] [address] (Case [id number] COMPLETE) CT ABDOMEN AND PELVIS W/CONTRAST (CT Detailed) CPT:22347 Contrast Media : Non-ionic Iodinated Reason for Study: Abdominal pain, vomiting Clinical History: Responsible Attending: Svetlana Attending Contact Number: [id number] Resident Contact Number: Abdominal pain, vomiting Allergies listed in CPRS chart: Patient has answered NKA Creatinine:CREATININE 0.82 mg/dL 08/10/2024 11:30 /eGFR: STL EGFR (within one year). CREATININE 0.82 mg/dL (08/10/24 11:30) Wt: 152.1 lb [68.99 kg] (08/10/2024 11:31) History of: Renal failure, chronic or acute renal disease: NO Report Status: Verified Date Reported: AUG 10, 2024 Date Verified: AUG 10, 2024 Gi Asst E-Sig:/ES/PETROS MCCORD Report: Case [id number]. CT ABDOMEN AND PELVIS W/CONTRAST. Gastrointestinal contrast: [...] inguinal hernias. Dictated by Kenneth Albright DO (global consumer sector vice president). I, Petros Mccord, have reviewed the images and report and concur with these findings. Primary Interpreting Staff: PETROS MCCORD MD (Gi Asst) Primary Interpreting Resident: KENNETH ALBRIGHT, Pouring Crane Operator /PETROS REESE [facility] Aug 01, 2024 10:20 AM PET/CT TUMOR IMAGING (SKULL TO MID-THIGH)-P: ABRAHAM HAWK [id number] -1955 M Exm Date: AUG 01, 2024@10:20 Req Phys: TONY SIMMONS Loc: [facility]ONCOLOGY [facility] (Req'g Loc) [facility] [place]: [facility]PET-CT Service: [address] [address] (Case [id number] COMPLETE) PET/CT TUMOR SKULL BASE TO MID-T(NM Detailed) CPT:69385 CPT Modifiers : PS PET TUMOR SUBSQ TX STRATEGY Reason for Study: Nasopharyngeal cancer (Case [id number] COMPLETE) F-18 FLUORODEOXYGLUCOSE (FDG),PER(NM Detailed) CPT:A9552 Clinical History: Report Status: Verified Date Reported: AUG 01, 2024 Date Verified: AUG 01, 2024 Gi Asst E-Sig:/ES/NATASHA LEIJA Report: PATIENT NAME: ABRAHAM HAWK. CASE #: [id number], [id number]. PROCEDURE: PET/CT study Indication: Nasopharyngeal cancer HISTORY: [...] lytic osseous lesion is noted within the [id number]. Impression: 1. The previous sites of FDG [...] NEEDED Primary Interpreting Staff: NATASHA LEIJA MD (Gi Asst) /PFT NATASHA LEIJA [facility] Jul 27, 2024 03:41 PM CHEST PORTABLE: ABRAHAM HAWK [id number] -1955 M Ex Date: JUL 27, 2024@15:41 Req Phys: GENDI,WAIVONEDAVE Kristal Loc: [facility]-EMERGENCY DEPT 2ND SHIFT (R Img Loc: [facility]-MAIN RADIOLOGY SUITE Service: Unknown [address] [address] (Case [id number] COMPLETE) CHEST PORTABLE (RAD Detailed) CPT:76607 Proc Modifiers : Portable Reason for Study: sob Clinical History: Report Status: Verified Date Reported: JUL 27, 2024 Date Verified: JUL 27, 2024 Gi Asst E-Sig:/ES/Sol Abraham MD Report: CASE [id number]. AP portable view chest. COMPARISON: Chest x-ray [...] advised. Report dictated by Krystian Sultana D.O. (global consumer sector vice president) Sol Kilgore, have reviewed the images and report and concur with these findings. Primary Interpreting Staff: Sol Abraham MD, Radiologist (Gi Asst) Primary Interpreting Resident: Krystian Sultana D.O., Resident Physician /SOL DHALIWAL [facility] Jul 17, 2024 06:[address] ABD PEL W/CONT & 3D: ABRAHAM HAWK [id number] -1955 M Exm Date: JUL 17, 2024@18:18 Req Phys: CASEY BOONE Loc: 4-C SICU-[facility]/07-17-2024@19:47 Img Loc: [facility]-CT IMAGING [facility] Service: Unknown [facility] [address] [place] [address] (Case [id number] COMPLETE) CT ABDOMEN AND PELVIS W/CONTRAST (CT Detailed) CPT:40961 Contrast Media : Non-ionic Iodinated Reason for Study: septic shock, abd pain Clinical History: Responsible Attending: Nils Attending Contact Number: [phone] Resident Contact Number: Septic shock, Patient with [...] 17, 2024 Date Verified: JUL 17, 2024 Gi Asst E-Sig: Report: CT THORAX W/CONT (PE) [PRINTSET], [...] from 09/12/2023. READING PHYSICIAN: Guilherme Talbert M.D. -[id number] 07/17/2024 17:44 [facility] National Teleradiology Program [phone] (For Medical Practitioner Use Only) Attention Patients / Veterans: If you have questions or concerns about these test results, please contact your ordering provider or primary care team. Primary Interpreting Staff: RADIOLOGY,OUTSIDE SERVICE, Staff Physician / RADIOLOGY,OUTSIDE SERVICE [facility] Jul 17, 2024 06:[address] PE CHEST W/3D: ABRAHAM HAWK [id number] -1955 M Ex Date: JUL 17, 2024@18:17 Req Phys: CASEY BOONE Loc: 4-C SICU-[facility]/07-17-2024@19:47 Img Loc: [facility]-CT IMAGING [facility] Service: [facility], [address] [address] (Case [id number] COMPLETE) CT THORAX W/CONT (PE) (CT Detailed) CPT:49241 Contrast Media : unspecified contrast media Reason for Study: RO PE Clinical History: Responsible Attending: Nils Attending Contact Number: [phone] Resident Contact Number: Patient with HCC and [...] 17, 2024 Date Verified: JUL 17, 2024 Gi Asst E-Sig: Report: CT THORAX W/CONT (PE) [PRINTSET], [...] from 09/12/2023. READING PHYSICIAN: Guilherme Talbert M.D. -[phone] 07/17/2024 17:44 [facility] National Teleradiology Program [phone] (For Medical Practitioner Use Only) Attention Patients / Veterans: If you have questions or concerns about these test results, please contact your ordering provider or primary care team. Primary Interpreting Staff: RADIOLOGY,OUTSIDE SERVICE, Staff Physician / RADIOLOGY,OUTSIDE SERVICE [facility] Pathology Reports: +/- [...] comes from all [place] treatment facilities. Date/Time Pathology Report Provider Source [...] Performing Laboratory: Surgical Pathology Report Performed By: [facility] [address] [place] [address]# [id number] [address] [address] $FTR - - - - - - [...] - - ABRAHAM HAWK STANDARD FORM 515 ID:[id number] SEX:M :1955 AGE: 68 LOC:AP[facility]EE PCP: Deirdre Wild /loly/ CRISTIANA TEMPLETON Pathologist Signed: 08/16/2024 09:43 CRISTIANA TEPMLETON [facility] Aug 11, 2024 06:00 AM LR MICROBIOLOGY RE PORT: Accession [UID]: [id number] [[id number]] Received: Aug 11, 2024@06:19 Collection sample: B D BLD. BOTTLE Collection date: Aug 11, 2024 06:00 Site/Specimen: BLOOD Provider: GILSON OG Test(s) ordered: BLOOD CULT (SET 1)............ completed: Aug 17, 2024 10:06 * BACTERIOLOGY FINAL REPORT => Aug 17, 2024 10:22 [facility] CODE: [id number] Bacteriology Remark(s): 2. KAA Culture shows NO GROWTH IN 6 DAYS =--=--=--=--=--=--=--=--=-- =--=--=--=--=--=--=--=--=-- =--=--=--=--=--=--=--=-- Performing Laboratory: Bacteriology Report Performed By: [place] TARA BACON 15 [facility] CLIA# [id number] [address] [facility] [address] [place] [address] JULISSA BROWN [facility] Jul 17, 2024 05:10 PM LR MICROBIOLOGY RE PORT: Accession [UID]: [id number] [[id number]] Received: Jul 17, 2024@17:30 Collection sample: Mario Alberto JONESD. BOTTLE (SET 2)Collection date: Jul 17, 2024 17:10 Site/Specimen: BLOOD Provider: CASEY BOONE Test(s) ordered: BLOOD CULT (SET 2)............ completed: Jul 23, 2024 14:26 * BACTERIOLOGY FINAL REPORT => Jul 23, 2024 14:28 TECH CODE: [id number] Bacteriology Remark(s): CULTURE IS NEGATIVE TO DATE, ALL POSITIVES ARE ROUTINELY CALLED. KI Culture shows NO GROWTH IN 6 DAYS. 07/23/24 KI =--=--=--=--=--=--=--=--=-- =--=--=--=--=--=--=--=--=-- =--=--=--=--=--=--=--=-- Performing Laboratory: Bacteriology Report Performed By: [facility] [address] [place] [address] CLIA# [id number] [address] [address] JULISSA BROWN [facility] Jul 17, 2024 05:10 PM LR MICROBIOLOGY RE PORT: Accession [UID]: [id number] [[id number]] Received: Jul 17, 2024@17:30 Collection sample: Mario Alberto JONESD. BOTTLE Collection date: Jul 17, 2024 17:10 Site/Specimen: BLOOD Provider: CASEY BOONE Test(s) ordered: BLOOD CULT (SET 1)............ completed: Jul 23, 2024 14:26 * BACTERIOLOGY FINAL REPORT => Jul 23, 2024 14:28 TECH CODE: [id number] Bacteriology Remark(s): CULTURE IS NEGATIVE TO DATE, ALL POSITIVES ARE ROUTINELY CALLED. KI Culture shows NO GROWTH IN 6 DAYS. 07/23/24 KI =--=--=--=--=--=--=--=--=-- =--=--=--=--=--=--=--=--=-- =--=--=--=--=--=--=--=-- Performing Laboratory: Bacteriology Report Performed By: [facility] CLIA# [id number] [address] [facility] [address] [place] [address] JULISSA BROWN [facility] Encounter Notes: All associated encounter notes This section contains the clinical notes associated to the Encounter. Date/Time Encounter Note(s) Provider Source Aug 15, 2024 12:15 PM PASTORAL CARE NOTE : LOCAL TITLE: PASTORAL CARE NOTE STANDARD TITLE: PASTORAL CARE NOTE DATE OF NOTE: AUG 15, 2024@12:15 ENTRY DATE: AUG 15, 2024@15:14:28 AUTHOR: JAM RENO EXP COSIGNER: URGENCY: STATUS: COMPLETED Pastoral Visit: Initial (15 Minutes) It Project Coordinator met with: Location: Patient Room Temple Preference: Other: Rastafari (Non-Specific) Initial Interaction: Introduced self, Informed of sql architect's availability to discuss condition and concerns, provided personal history welcomed the It Project Coordinator into his room, and mentioned that he would be discharged after lunch. [place] spoke briefly about his service. Spiritual resources appear: adequate denies needing any spiritual resources at this time. Discussed 's relationship with: family mentioned having a supportive family, however his was not able to travel to to pick him up but instead he will be taking an UBER home. Discussed 's concerns regarding: condition spoke at-length about his recent medical issue as well as his methods for addressing it. [place] looks forward to going home later today. INTERVENTION Offered / accepted: pastoral support, ministry of presence, spiritual counseling, additional counseling, supportive listening OUTCOMES 's Response: expressed appreciation for the visit Observations: seemed calmer, appeared more at peace, experienced support FOLLOW-UP It Project Coordinator will be available to as needed throughout this admission. /es/ REV. JAM RENO D.Min., [facility] CLINICAL AIR CONDITIONING SERVICE TECHNICIAN Signed: 08/15/2024 15:19 JAM RENO [facility]
--- NOTE | 2024-10-08 17:23 | ED_ITS ---
HPI - General Adult General Chief complaint: GI Bleed Stated complaint: bloody stools Time Seen by Provider: 10/08/24 14:58 History of Present Illness HPI narrative: This is a 69-year-old male with history of liver cirrhosis varicocele bleeds presenting for melanotic stools. Patient been discharged from our hospital on October 02 after being admitted for GI bleed and anemia. He said he was doing well until yesterday when he started having melanotic stools. Patient also feels short of breath. He denies hematemesis or hematochezia. He denies abdominal pain or chest pain. He does not use blood thinners. He has been taking his medications as instructed. Related Data Home Medications ?Medication ?Instructions ?Recorded ?Confirmed ?Last Taken ?Type dextroamphetamine-amphetamine 20 20 mg PO PRN 03/02/21 09/26/24 Unknown History mg tablet omeprazole 20 mg capsule,delayed 40 mg PO QID 03/02/21 09/26/24 09/21/24 09:00 History release 40 mg tramadol 50 mg tablet 50 mg PO PRN 03/02/21 09/26/24 Unknown History acetaminophen 325 mg tablet (Pain 650 mg PO Q6H PRN pain 09/26/24 09/26/24 09/24/24 10:00 History Reliever (acetaminophen)) 650 mg furosemide 20 mg tablet (Lasix) 20 mg PO DAILY 09/26/24 09/26/24 09/24/24 21:50 History 20 mg hydroxyzine HCl 10 mg tablet 10 mg PO TID PRN itching 09/26/24 09/26/24 09/24/24 21:50 History 10 mg loperamide 2 mg capsule 2 mg PO QID PRN loose stool 09/26/24 09/26/24 09/25/24 13:00 History (Anti-Diarrheal (loperamide)) ondansetron 8 mg disintegrating 8 mg PO TID 09/26/24 09/26/24 09/24/24 14:00 History tablet 8 mg pembrolizumab 25 mg/mL intravenous 200 mg IV ONCE 09/26/24 09/26/24 07/13/24 08:58 History solution (Keytruda) 200 mg prednisone 20 mg tablet 60 mg PO DAILY 09/26/24 09/26/24 09/22/24 08:00 History 10 mg Allergies Allergy/AdvReac Type Severity Reaction Status Date / Time No Known Drug Allergies Allergy Unknown Unknown Verified 09/27/24 13:21 [facility] Past Medical History Medical History Anemia Hepatitis C Liver cancer s/p chemo Alcohol abuse, in remission Cessation 15 years ago as of 2024 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 Esophageal varices ADHD GI bleed Social History Social History Smoking status: Former smoker Alcohol intake: former Substance use: current Substance use type: former substance user and marijuana Other substance usage details: a little bit of everything out there Marijuana capsule, suppository, oil Do You Feel Safe in your Home?: Yes Lack of Transportation: No Lack of Food: Never True Current Housing: I Have Housing Concerned About Future Housing: No Difficulty Paying Gas/Electric Bills: No Difficulty Paying for Meds: No Currently Unemployed: No Education: Trade/Vocational Certificate Difficulty w/ Childcare or Family Care: No Spiritual care concerns: No Exam 2 Narrative: APPEARANCE: Chronically unwell appearing, Head: atraumatic. EYES: EOMI, NOSE: Atraumatic NECK: Trachea midline RESPIRATORY: Tachypneic, 2-3 word dyspnea clear to auscultation CARDIOVASCULAR: RRR, no peripheral edema ABDOMINAL: Non-distended soft nontender MUSCULOSKELETAl: No obvious deformities NEURO: Alert. Moving 4/4 extremities SKIN:: Warm, dry. Normal color PSYCHIATRIC: Normal affect Course Vital Signs Vital signs: Vital Signs Temperature 98.0 F 10/08/24 13:04 Pulse Rate 86 10/08/24 13:04 Respiratory Rate 18 10/08/24 13:04 Blood Pressure 102/49 L 10/08/24 13:04 Pulse Oximetry 99 10/08/24 13:04 Oxygen Delivery Room Air 10/08/24 13:04 Temperature 98.0 F 10/08/24 13:04 Pulse Rate 63 10/08/24 15:31 Respiratory Rate 19 10/08/24 15:31 Blood Pressure 100/70 10/08/24 15:31 Pulse Oximetry 99 10/08/24 15:31 Oxygen Delivery Room Air 10/08/24 13:42 Medical Decision Making MDM Narrative Medical decision making narrative: -Course: 61-year-old male history liver cirrhosis frequent GI bleeds presenting for melanotic stools. On exam the patient is unwell appearing. He has 2-3 word dyspnea although he is saturating well on his lung sounds are clear. ABG showed metabolic alkalosis. Chest xray clear. Patient started on Protonix, octreotide and ceftriaxone in case this is a varicocele bleed. Review of previous EGD showed grade 3 varices and a post ligation ulcer which could be the source of the bleed. Laboratory studies showed an initial hemoglobin of 9.3. Q.6 hours hemoglobins have been ordered. Digital rectal exam showed minimal stool in the rectal vault although Hemoccult positive. Dr. Hawkins has been consulted. Patient will be admitted the hospital for further management. -DDX includes but is not limited to: Esophageal varices, bleeding ulcer, lower GI bleed Vital Signs Vital Signs: Vital Signs Temperature 98.0 F 10/08/24 13:04 Pulse Rate 86 10/08/24 13:04 Respiratory Rate 18 10/08/24 13:04 Blood Pressure 102/49 L 10/08/24 13:04 Pulse Oximetry 99 10/08/24 13:04 Oxygen Delivery Room Air 10/08/24 13:04 Temperature 98.0 F 10/08/24 13:04 Pulse Rate 63 10/08/24 15:31 Respiratory Rate 19 10/08/24 15:31 Blood Pressure 100/70 10/08/24 15:31 Pulse Oximetry 99 10/08/24 15:31 Oxygen Delivery Room Air 10/08/24 13:42 Lab Data 10/08/24 13:52 10/08/24 13:52 Labs: Lab Results 10/08/24 10/08/24 Range/Units 13:52 13:53 WBC 11.0 H (4.5-10.0) K/mm3 RBC 3.21 L (4.6-6.20) M/mm3 Hgb 9.3 L (14.0-18.0) g/dL Hct 30.2 L (42.0-52.0) % MCV 94.1 (80-100) fl MCH 29.0 (26-34) pg MCHC 30.8 L (32-36) g/dl RDW 15.5 H (11.5-14.5) % Plt Count 101 L D (150-375) k/mm3 MPV 10.7 H (7.4-10.4) fl Immature Gran % (Auto) 0.7 H (0-0.5) % Neut % (Auto) 95.2 H (45.5-73.1) % Lymph % (Auto) 1.3 L (18.3-44.2) % [place] % (Auto) 2.7 (2.6-8.5) % Eos % (Auto) 0.0 (0-4.4) % Baso % (Auto) 0.1 L (0.2-1.2) % Lymph # (Auto) 0.14 L (0.9-3.2) K/mm3 [place] # (Auto) 0.3 (0.1-0.6) K/mm3 Eos # (Auto) 0.0 (0-0.3) K/mm3 Baso # (Auto) 0.0 (0.0-0.1) K/mm3 Abs Immat Gran (auto) 0.08 H (0.00-0.031) K/mm3 Absolute Neuts (auto) 10.4 H (1.3-6.7) K/mm3 Absolute Nucleated RBC 0.000 (0.0-0.012) K/mm3 Nucleated RBC % 0.0 (0.0-0.2) % PT 14.1 (11.1-14.7) Seconds INR 1.1 APTT 21.1 L (22.3-36.8) Seconds Sodium 132 L (137-145) mmol/L Potassium 4.0 (3.4-5.0) mmol/L Chloride 98 (98-107) mmol/L Carbon Dioxide 26 (22-30) mmol/L Anion Gap 8 (4-12) mmol/L BUN 25 H (9-20) mg/dL Creatinine 0.76 (0.7-1.3) mg/dL Estim Creat Clear Calc 84 ml/min Estimated GFR > 60 (59 - ) Glucose 127 H (65-110) mg/dL Calcium 8.8 (8.4-10.2) mg/dL Total Bilirubin 0.8 (0.2-1.3) mg/dL AST 27 (17-59) U/L ALT 31 (6-50) U/L Alkaline Phosphatase 87 (38-126) U/L Total Protein 6.0 L (6.3-8.2) g/dL Albumin 3.5 (3.5-5.1) g/dL Blood Type O Positive Antibody Screen Negative ABG Data ABG results: 10/08/24 16:00 Puncture Site Right radial ABG pH 7.548 H* ABG pCO2 29.8 L ABG pO2 74.0 L ABG PO2/FiO2 Ratio 3.52 ABG HCO3 25.4 ABG O2 Saturation 96.6 ABG O2 Content 13.0 L ABG Base Excess 3.3 A-a Gradient 40.0 Oxyhemoglobin 95.0 Total Hemoglobin 9.7 L O2 Delivery Device Room air O2 Liters/Min Not Reportable FiO2 21 Discharge Plan Discharge Clinical Impression: Melena Anemia Qualifiers: Anemia type: iron deficiency Iron deficiency anemia type: chronic blood loss Q ualified Code(s): D50.0 - Iron deficiency anemia secondary to blood loss (chronic) Cirrhosis of liver Qualifiers: Hepatic cirrhosis type: unspecified hepatic cirrhosis Ascites presence: without ascites Qualified Code(s): K74.60 - Unspecified cirrhosis of liver Patient Disposition: Still a Patient Condition: Stable Patient Language: Spanish Prescriptions: No Action tramadol 50 mg tablet 50 mg PO PRN dextroamphetamine-amphetamine 20 mg tablet 20 mg PO PRN omeprazole 20 mg capsule,delayed release(DR/EC) 40 mg PO QID furosemide [Lasix] 20 mg tablet 20 mg PO DAILY ondansetron 8 mg tablet,disintegrating 8 mg PO TID hydroxyzine HCl 10 mg tablet 10 mg PO TID PRN (Reason: itching) loperamide [Anti-Diarrheal (loperamide)] 2 mg capsule 2 mg PO QID PRN (Reason: loose stool) prednisone 20 mg tablet 60 mg PO DAILY Keytruda 25 mg/mL solution 200 mg IV ONCE Patient Comments: Caused a myriad of side effects including multiple gi bleeds, migraines, edema, hypertension. Medication discontinued Rx Instructions: administer over 30 mins acetaminophen [Pain Reliever (acetaminophen)] 325 mg tablet 650 mg PO Q6H PRN (Reason: pain) carvedilol [Coreg] 6.25 mg Tablet 6.25 mg PO Q12HR Qty: 60 0RF Follow-up/Referrals: Derrell Barrow MD [Primary Care Provider] -
[2024-10-08] MEDS: SODIUM CHLORIDE 0.9% IV 1,000 ML 999 ML IV CONT (18:13)
[2024-10-08 18:40] LABS: Influenza A QL RT-PCR Negative (Negative); Influenza B QL RT-PCR Negative (Negative); RSV RNA, RT-PCR Negative (Negative); SARS-CoV-2 RNA PCR Negative (Negative)
[2024-10-08 19:22] LABS: Hematocrit 16.5 % (42.0-52.0); Hemoglobin 4.7 g/dL (14.0-18.0)
--- NOTE | 2024-10-08 20:15 | PM.IMHP ---
H&P: HPI History of Present Illness Date/Time: 10/08/24 20:15 Chief Complaint: Dark stools. Narrative: This is a pleasant 61-year-old male with history of hepatitis-C, liver cancer, cirrhosis, esophageal varices, and nasopharyngeal cancer who presented to the emergency department via private vehicle from home with complaints of dark stools. He receives a majority of his care to the [facility] and was receiving radiation and Keytruda for his nasopharyngeal cancer however is my understanding that both of these treatments were discontinued due to poor tolerance and GI bleeding respectively. This will be his 4th admission to the hospital since the beginning of the year with GI bleed and most recently he was admitted earlier this month with melena and coffee-ground emesis. He was transfused packed red blood cells and platelets during that stay and EGD on 09/27/2024 showed findings of gastritis and nonbleeding esophageal varices. Stools have been unremarkable up until today when he began passing dark, tarry stools. He is otherwise feeling okay but admits to being generally weak since his hospitalizations this year. His appetite however is improving. He has noticed some swelling in his ankles and legs but admits he has not been very active. He denies syncope, near syncope, chest pain, worsening shortness of breaths from baseline, abdominal pain, epigastric pain, bloating, vomiting, and calf pain. He denies NSAID use. In the ED: Blood pressure was 102/49 on arrival and the remainder of his vital signs were stable. Labs were significant for a WBC count of 11.0, hemoglobin 9.3, hematocrit 30.2, platelet 101, INR 1.1, sodium 132, BUN 25, glucose 127, total protein 6.0, albumin 3.5. Repeat hemoglobin and hematocrit were 4.7 16.5% respectively and he was transfused a unit of packed red blood cells. He was started on octreotide, pantoprazole, and ceftriaxone is being admitted in this setting for close monitoring and GI consultation. Review of Systems Review of Systems: 12 systems were reviewed and are negative except for as per HPI. 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 Followed by [facility]. 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 Code status: Full code. Smoking status: Never smoker Alcohol intake: former Substance use: current Substance use type: marijuana Other substance usage details: pt uses RSO oil for cancer tx Do You Feel Safe in your Home?: Yes Lack of Transportation: No Lack of Food: Never True Current Housing: I Have Housing Concerned About Future Housing: No Difficulty Paying Gas/Electric Bills: No Difficulty Paying for Meds: No Currently Unemployed: No Education: Trade/Vocational Certificate Difficulty w/ Childcare or Family Care: No Spiritual care concerns: No Meds Home Medications and Allergies Home Medications ?Medication ?Instructions ?Recorded ?Confirmed ?Type omeprazole 20 mg capsule,delayed 40 mg PO QID 03/02/21 09/26/24 History release acetaminophen 325 mg tablet (Pain 650 mg PO Q6H PRN pain 09/26/24 09/26/24 History Reliever (acetaminophen)) furosemide 20 mg tablet (Lasix) 20 mg PO DAILY 09/26/24 09/26/24 History hydroxyzine HCl 10 mg tablet 10 mg PO TID PRN itching 09/26/24 09/26/24 History loperamide 2 mg capsule 2 mg PO QID PRN loose stool 09/26/24 09/26/24 History (Anti-Diarrheal (loperamide)) ondansetron 8 mg disintegrating 8 mg PO TID 09/26/24 09/26/24 History tablet prednisone 20 mg tablet 60 mg PO DAILY 09/26/24 09/26/24 History carvedilol 6.25 mg tablet (Coreg) 6.25 mg PO Q12HR #60 tabs 10/02/24 Rx Allergies Allergy/AdvReac Type Severity Reaction Status Date / Time No Known Drug Allergies Allergy Unknown Unknown Verified 09/27/24 13:21 Vital Signs Vital Signs - 24 hr 10/08/24 13:04 10/08/24 13:42 10/08/24 13:49 Temperature 98.0 F Pulse Rate 86 81 Respiratory Rate 18 16 Blood Pressure 102/49 L 121/87 Pulse Oximetry 99 99 Oxygen Delivery Room Air Room Air 10/08/24 13:49 10/08/24 14:01 10/08/24 14:29 Temperature Pulse Rate 81 71 67 Respiratory Rate 17 19 17 Blood Pressure 121/87 Pulse Oximetry 99 97 97 Oxygen Delivery 10/08/24 15:31 10/08/24 15:46 10/08/24 16:00 Temperature Pulse Rate 63 68 68 Respiratory Rate 19 12 13 Blood Pressure 100/70 109/68 Pulse Oximetry 99 97 100 Oxygen Delivery 10/08/24 16:01 10/08/24 16:15 10/08/24 16:16 Temperature Pulse Rate 65 67 67 Respiratory Rate 16 17 13 Blood Pressure 109/69 Pulse Oximetry 99 99 100 Oxygen Delivery 10/08/24 16:30 10/08/24 16:45 10/08/24 16:46 Temperature Pulse Rate 62 64 66 Respiratory Rate 15 22 H 15 Blood Pressure 100/65 97/65 L Pulse Oximetry 100 98 97 Oxygen Delivery 10/08/24 17:02 10/08/24 17:15 10/08/24 17:16 Temperature Pulse Rate 68 66 67 Respiratory Rate 14 17 20 Blood Pressure 96/64 L Pulse Oximetry 99 99 99 Oxygen Delivery 10/08/24 17:38 10/08/24 17:45 10/08/24 18:09 Temperature Pulse Rate 71 65 63 Respiratory Rate 15 19 16 Blood Pressure 113/80 Pulse Oximetry 97 97 100 Oxygen Delivery 10/08/24 19:35 10/08/24 19:40 10/08/24 19:55 Temperature 97.4 F L 97.7 F Pulse Rate 97 75 63 Respiratory Rate 16 14 22 H Blood Pressure 109/73 109/73 112/76 Pulse Oximetry 99 99 100 Oxygen Delivery Exam Narrative: General: Chronically ill-appearing male in the semi-Conroy position in bed. Weight: 67.2 kg. HEENT: PERRL, EOMI. Sclera anicteric. Tacky mucous membranes. Neck: Supple. Respiratory: Mildly tachypneic but in no respiratory distress. Lungs are clear to auscultation. Cardiovascular: Regular rate and rhythm with S1-S2. Gastrointestinal: Abdomen is soft, nontender, and nondistended with positive bowel sounds. Skin: Warm and dry. Generalized pallor. Extremities: No cyanosis or clubbing. 1+ lower extremity edema bilaterally. No palpable knots or cords. Neurological: Alert. Cranial nerves 2-12 are grossly intact. No gross focal deficits to casual conversation. Psychiatric: Pleasant and cooperative with appropriate mood and affect. Seems to be a bit forgetful, differs many questions to his . H&P: Results Labs Labs: Short CBC 10/08/24 10/08/24 Range/Units 13:52 18:54 WBC 11.0 H (4.5-10.0) K/mm3 Hgb 9.3 L 4.7 L* D (14.0-18.0) g/dL Hct 30.2 L 16.5 L* (42.0-52.0) % Plt Count 101 L D (150-375) k/mm3 BMP 10/08/24 13:52 Sodium 132 L Potassium 4.0 Chloride 98 Carbon Dioxide 26 BUN 25 H Creatinine 0.76 Glucose 127 H Calcium 8.8 Liver Function 10/08/24 Range/Units 13:52 Total Bilirubin 0.8 (0.2-1.3) mg/dL AST 27 (17-59) U/L ALT 31 (6-50) U/L Alkaline Phosphatase 87 (38-126) U/L Albumin 3.5 (3.5-5.1) g/dL Imaging Chest X-Ray 10/08/24 17:54 IMPRESSION: No acute cardiopulmonary pathology. Assessment and Plan Assessment and plan (1) Melena: Code(s): K92.1 - Melena Status: Acute (2) Acute blood loss anemia: Code(s): D62 - Acute posthemorrhagic anemia Status: Acute (3) Thrombocytopenia: Code(s): D69.6 - Thrombocytopenia, unspecified Status: Acute (4) Cirrhosis: Qualifiers: Hepatic cirrhosis type: unspecified hepatic cirrhosis Ascites presence: without ascites Qualified Code(s): K74.60 - Unspecified cirrhosis of liver Code(s): K74.60 - Unspecified cirrhosis of liver Status: Acute Plan The patient presented to the emergency department for evaluation of dark stools x2 as detailed in HPI. Labs, imaging, EKG, and all reports were personally reviewed. Initial hemoglobin was actually a bit higher than what it was on discharge earlier this month but a repeat H&H showed a significant decline in his hemoglobin from 9.3 to 4.7. It is possible that the initial or subsequent lab draw were erroneous however he was given a unit of packed red blood cells in the ED and a repeat H&H is currently pending. He has been started on pantoprazole, octreotide, and ceftriaxone per recommendations for upper GI bleeding in cirrhotic patients. Continue carvedilol and furosemide. May benefit from an extra dose given his edema. He will be NPO after midnight for possible endoscopy tomorrow. Platelet count is above 100 and will be monitored. His home medications will be reviewed and resumed as appropriate. Findings and treatment plan were discussed with the patient. Questions were solicited and answered to satisfaction. The patient's medical management will be taken over by the hospitalist team in a.m. Quality VTE Prophylaxis VTE prophylaxis: mechanical ordered If No VTE Prophylaxis Answer both mechanical and pharmacologic: Reason no pharmacologic proph: medical contraindication (dark stools, anemia) Hospitalist MIPS Advance Care Plan I have confirmed that the patient's Advanced Care Plan is present, code status is documented, or surrogate decision maker is listed in patient medical record.: Yes Medication Reconciliation I have utilized all available resources to obtain, update and review the patients current medications (includes all prescriptions, OTC, herbals, cannabis, and nutritional supplements).: Yes
--- NOTE | 2024-10-08 21:27 | PC.NURSE ---
pt is following a regular puree diet at home with Boost supplements but reports ~20lb weight loss
[2024-10-08] MEDS: TUBING, BLOOD SET 1 EACH XX (21:57)
[2024-10-08] MEDS: SODIUM CHLORIDE 0.9% IV 250 ML 30 ML IV CONT (21:57)
[2024-10-08] MEDS: LACTATED RINGERS 1,000 ML 999 ML IV CONT (22:18)
[2024-10-08 22:53] LABS: Hematocrit 30.7 % (42.0-52.0); Hemoglobin 9.3 g/dL (14.0-18.0)
[2024-10-08] MEDS: hydrOXYzine HCL 10 MG TABLET PO (23:15)
[2024-10-09] VITALS (18 sets, daily range): BP systolic 107–138; BP diastolic 59–94; PULSE 53–94; RESP 18–22; TEMP 36.4; O2SAT 94–100
[2024-10-09] MEDS: OCTREOTIDE ACETATE 500 MCG in SODIUM CHLORIDE 0.9% IV 99 ML 10 MCG IV CONT ×3 (01:30→20:06)
[2024-10-09 02:36] LABS: Hematocrit 26.3 % (42.0-52.0); Hemoglobin 8.2 g/dL (14.0-18.0)
[2024-10-09 04:44] LABS: Eosinophils Percent Auto 0.3 % (0-4.4); Hematocrit 25.9 % (42.0-52.0); Hemoglobin 8.1 g/dL (14.0-18.0); Immature Granulocyte Absolute 0.02 K/mm3 (0.00-0.031); Immature Granulocyte Percent A 0.6 % (0-0.5); Immature Platelet Fraction Pct 4.6 % (0.9-11.2); Lymphocytes Absolute Auto 0.31 K/mm3 (0.9-3.2); Mean Corpuscular HGB Conc 31.3 g/dl (32-36); Mean Corpuscular Hemoglobin 28.8 pg (26-34); Mean Corpuscular Volume 92.2 fl (80-100); Mean Platelet Volume 10.4 fl (7.4-10.4); Monocytes Absolute Auto 0.3 K/mm3 (0.1-0.6); Monocytes Percent Auto 7.2 % (2.6-8.5); Neutrophils Absolute Auto 2.9 K/mm3 (1.3-6.7); Neutrophils Percent Auto 82.9 % (45.5-73.1); Platelet Count Result 52 k/mm3 (150-375); Red Blood Count 2.81 M/mm3 (4.6-6.20); Red Cell Distribution Width 15.3 % (11.5-14.5); White Blood Count 3.5 K/mm3 (4.5-10.0)
[2024-10-09 05:00] LABS: Alanine Aminotransferase 25 U/L (6-50); Albumin Level 2.7 g/dL (3.5-5.1); Alkaline Phosphatase 61 U/L (38-126); Anion Gap 4 mmol/L (4-12); Aspartate Amino Transferase 22 U/L (17-59); Bilirubin,Total 0.5 mg/dL (0.2-1.3); Blood Urea Nitrogen 24 mg/dL (9-20); Calcium 8.1 mg/dL (8.4-10.2); Carbon Dioxide 27 mmol/L (22-30); Chloride 100 mmol/L (98-107); Estimated Glomerular Filt Rate > 60; Glucose 152 mg/dL (65-110); Potassium 4.4 mmol/L (3.4-5.0); Sodium 131 mmol/L (137-145)
[2024-10-09 05:07] LABS: INR 1.2; Prothrombin Time 15.2 Seconds (11.1-14.7)
[2024-10-09 05:09] LABS: Anisocytosis 1+; Ovalocytes 1+
[2024-10-09 05:10] LABS: Schistocytes Rare
[2024-10-09 06:05] LABS: Platelet Estimate Decreased (Adequate)
[2024-10-09 06:59] LABS: Free T4 Free Thyroxine Reflex 0.86 ng/dL (0.78-2.19)
[2024-10-09 07:46] LABS: Total Triiodothyronine (T3) 0.65 NG/ML (0.97-1.69)
[2024-10-09] MEDS: PANTOPRAZOLE 40 MG TABLET PO (08:58)
[2024-10-09] MEDS: FUROSEMIDE 20 MG TABLET PO (08:58)
[2024-10-09] MEDS: PANTOPRAZOLE SODIUM IV 40 MG VIAL IV PUSH ×2 (08:58→20:08)
[2024-10-09] MEDS: carvediloL 6.25 MG TABLET PO ×2 (08:58→20:07)
[2024-10-09] MEDS: predniSONE 20 MG TABLET 40 MG PO (10:15)
--- NOTE | 2024-10-09 13:07 | P.CONGI_ITS ---
Assessment and Plan Assessment and plan (1) Thrombocytopenia: Code(s): D69.6 - Thrombocytopenia, unspecified Status: Acute Assessment and Plan: This patient has multiple comorbidities, with decompensated cirrhosis, significant portal hypertension, and varices being the primary concern at this time. An EGD is planned for today. Given the patient's portal hypertension and prior imaging findings of portal gastropathy, enteropathy, and colopathy on [facility] scans, there is a possibility of [id number] bleeding from various sites beyond just esophageal varices. Considering his age (under 70) and MELD score (below 20), he may be a candidate for a TIPS procedure to alleviate the significant portal hypertension. We are currently consulting with [facility] to assess his eligibility for this intervention as an alternative treatment option. (2) Melena: Code(s): K92.1 - Melena Status: Acute (3) Cirrhosis of liver: Code(s): K74.60 - Unspecified cirrhosis of liver Status: Acute GI Consult Note Consult date/time: 10/09/24 13:07 Reason for consult: Severe anemia-GI bleeding. 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 This is his fourth hospital admission in this current year for melena and a drop in hematocrit, the most recent being 12 days prior. He has a history of multiple variceal ligation sessions at the [facility]. An EGD on 09/27 in our Hospital showed esophageal varices without active bleeding and an ulcer at a ligation site. Yesterday afternoon, while in his usual state of health, he experienced three episodes of melena followed by weakness and dizziness. His hemoglobin acutely decreased from 9.3 on admission to 4.7 within hours. He received two units of packed red blood cells and his current hemoglobin is 9.3. Other relevant Labs now: * INR: 1.2 * Sodium: 131 * Creatinine: 0.72 * Albumin: 2.7 * MELD 3.0 Score: 14 Review of Systems 2 Review of Systems: All systems reviewed & are unremarkable except as noted in HPI and below PMFSH Past Medical History Medical History (Updated 10/08/24 @ 22:26 by Michelle G Gerling, PA-C) Nasopharyngeal cancer Diagnosed June 2024, did not tolerate radiation or Keytruda. [facility] 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 Code status: Full code. Smoking status: Never smoker Alcohol intake: former Substance use: current Substance use type: marijuana Other substance usage details: pt uses RSO oil for cancer tx Do You Feel Safe in your Home?: Yes Lack of Transportation: No Lack of Food: Never True Current Housing: I Have Housing Concerned About Future Housing: No Difficulty Paying Gas/Electric Bills: No Difficulty Paying for Meds: No Currently Unemployed: No Education: Trade/Vocational Certificate Difficulty w/ Childcare or Family Care: No Spiritual care concerns: No Meds Home Medications and Allergies Home Medications ?Medication ?Instructions ?Recorded ?Confirmed ?Type omeprazole 20 mg capsule,delayed 40 mg PO QID 03/02/21 10/08/24 History release acetaminophen 325 mg tablet (Pain 650 mg PO Q6H PRN pain 09/26/24 10/08/24 History Reliever (acetaminophen)) furosemide 20 mg tablet (Lasix) 20 mg PO DAILY 09/26/24 10/08/24 History hydroxyzine HCl 10 mg tablet 10 mg PO TID PRN itching 09/26/24 10/08/24 History loperamide 2 mg capsule 2 mg PO QID PRN loose stool 09/26/24 10/08/24 History (Anti-Diarrheal (loperamide)) ondansetron 8 mg disintegrating 8 mg PO TID 09/26/24 10/08/24 History tablet carvedilol 6.25 mg tablet (Coreg) 6.25 mg PO Q12HR #60 tabs 10/02/24 10/08/24 Rx prednisone 20 mg tablet 40 mg PO DAILY 10/09/24 10/09/24 History Allergies Allergy/AdvReac Type Severity Reaction Status Date / Time No Known Drug Allergies Allergy Unknown Unknown Verified 09/27/24 13:21 Vital Signs Vital Signs - 24 hr 10/08/24 13:42 10/08/24 13:49 10/08/24 13:49 Temperature Pulse Rate 81 81 Respiratory Rate 16 17 Blood Pressure 121/87 121/87 Pulse Oximetry 99 99 Oxygen Delivery Room Air 10/08/24 14:01 10/08/24 14:29 10/08/24 15:31 Temperature Pulse Rate 71 67 63 Respiratory Rate 19 17 19 Blood Pressure 100/70 Pulse Oximetry 97 97 99 Oxygen Delivery 10/08/24 15:46 10/08/24 16:00 10/08/24 16:01 Temperature Pulse Rate 68 68 65 Respiratory Rate 12 13 16 Blood Pressure 109/68 Pulse Oximetry 97 100 99 Oxygen Delivery 10/08/24 16:15 10/08/24 16:16 10/08/24 16:30 Temperature Pulse Rate 67 67 62 Respiratory Rate 17 13 15 Blood Pressure 109/69 100/65 Pulse Oximetry 99 100 100 Oxygen Delivery 10/08/24 16:45 10/08/24 16:46 10/08/24 17:02 Temperature Pulse Rate 64 66 68 Respiratory Rate 22 H 15 14 Blood Pressure 97/65 L Pulse Oximetry 98 97 99 Oxygen Delivery 10/08/24 17:15 10/08/24 17:16 10/08/24 17:38 Temperature Pulse Rate 66 67 71 Respiratory Rate 17 20 15 Blood Pressure 96/64 L Pulse Oximetry 99 99 97 Oxygen Delivery 10/08/24 17:45 10/08/24 18:09 10/08/24 19:35 Temperature Pulse Rate 65 63 97 Respiratory Rate 19 16 16 Blood Pressure 113/80 109/73 Pulse Oximetry 97 100 99 Oxygen Delivery 10/08/24 19:40 10/08/24 19:55 10/08/24 20:33 Temperature 97.4 F L 97.7 F Pulse Rate 75 63 70 Respiratory Rate 14 22 H 20 Blood Pressure 109/73 112/76 114/71 Pulse Oximetry 99 100 97 Oxygen Delivery 10/08/24 20:51 10/08/24 21:18 10/08/24 21:30 Temperature 97.6 F 98.1 F Pulse Rate 70 70 62 Respiratory Rate 20 20 22 H Blood Pressure 114/71 133/90 116/79 Pulse Oximetry 97 100 100 Oxygen Delivery 10/08/24 22:00 10/08/24 22:00 10/09/24 00:00 Temperature 97.6 F Pulse Rate 70 66 Respiratory Rate 20 Blood Pressure 127/67 Pulse Oximetry 99 Oxygen Delivery Room Air 10/09/24 00:00 10/09/24 00:00 10/09/24 02:00 Temperature Pulse Rate 73 70 Respiratory Rate Blood Pressure Pulse Oximetry Oxygen Delivery Room Air 10/09/24 04:00 10/09/24 04:00 10/09/24 04:00 Temperature 97.5 F L Pulse Rate 66 73 Respiratory Rate 20 Blood Pressure 109/66 Pulse Oximetry 100 Oxygen Delivery Room Air 10/09/24 06:00 10/09/24 07:57 10/09/24 08:58 Temperature 97.6 F Pulse Rate 61 65 63 Respiratory Rate 20 Blood Pressure 109/77 Pulse Oximetry 100 Oxygen Delivery 10/09/24 11:37 Temperature 97.5 F L Pulse Rate 53 L Respiratory Rate 18 Blood Pressure 110/69 Pulse Oximetry 100 Oxygen Delivery Exam 2 Narrative: General: Chronically ill-appearing male in the semi-Conroy position in bed. Weight: 67.2 kg. HEENT: PERRL, EOMI. Sclera anicteric. Tacky mucous membranes. Neck: Supple. Respiratory: Mildly tachypneic but in no respiratory distress. Lungs are clear to auscultation. Cardiovascular: Regular rate and rhythm with S1-S2. Gastrointestinal: Abdomen is soft, nontender, and nondistended with positive bowel sounds. Skin: Warm and dry. Generalized pallor. Extremities: No cyanosis or clubbing. 1+ lower extremity edema bilaterally. No palpable knots or cords. Neurological: Alert. Cranial nerves 2-12 are grossly intact. No gross focal deficits to casual conversation. Psychiatric: Pleasant and cooperative with appropriate mood and affect. Seems to be a bit forgetful, differs many questions to his . Results Labs 10/09/24 04:27 10/09/24 04:28 Labs: Short CBC 10/08/24 10/08/24 10/08/24 Range/Units 13:52 18:54 22:48 WBC 11.0 H (4.5-10.0) K/mm3 Hgb 9.3 L 4.7 L* D 9.3 L D (14.0-18.0) g/dL Hct 30.2 L 16.5 L* 30.7 L (42.0-52.0) % Plt Count 101 L D (150-375) k/mm3 10/09/24 10/09/24 Range/Units 02:31 04:27 WBC 3.5 L (4.5-10.0) K/mm3 Hgb 8.2 L 8.1 L (14.0-18.0) g/dL Hct 26.3 L 25.9 L (42.0-52.0) % Plt Count 52 L (150-375) k/mm3 BMP 10/08/24 10/09/24 13:52 04:28 Sodium 132 L 131 L Potassium 4.0 4.4 Chloride 98 100 Carbon Dioxide 26 27 BUN 25 H 24 H Creatinine 0.76 0.72 Glucose 127 H 152 H Calcium 8.8 8.1 L Liver Function 10/08/24 10/09/24 Range/Units 13:52 04:28 Total Bilirubin 0.8 0.5 (0.2-1.3) mg/dL AST 27 22 (17-59) U/L ALT 31 25 (6-50) U/L Alkaline Phosphatase 87 61 (38-126) U/L Albumin 3.5 2.7 L (3.5-5.1) g/dL
--- NOTE | 2024-10-09 13:11 | P.CDI_ITS ---
CDI Query Clarification Request BMI: 20.1 Nutritional Diagnostic Statement: Please refer to the comprehensive nutrition assessment for further information. If you agree with diagnosis of Severe protein calorie malnutrition related to inadequate energy intake with increased protein energy needs in the setting of chronic disease or condition (cancer and treatment of nasopharynx) as evidenced by a -8% weight loss x 1 month, and NFPE findings for severe subcutaneous fat loss and muscle wasting. Please specify severity if known: * Mild * Moderate * Severe * Other/Unknown <Tammie West RN - Last Filed: 10/09/24 13:11> Clarified Diagnosis Clarified Diagnosis: * Severe <Candida Montes MD - Last Filed: 10/09/24 13:16>
--- NOTE | 2024-10-09 18:33 | P.PNIM_ITS ---
Progress Note: A&P Assessment and Plan (1) Melena: Code(s): K92.1 - Melena Status: Acute (2) Acute blood loss anemia: Code(s): D62 - Acute posthemorrhagic anemia Status: Acute (3) Thrombocytopenia: Code(s): D69.6 - Thrombocytopenia, unspecified Status: Acute (4) Cirrhosis: Qualifiers: Hepatic cirrhosis type: unspecified hepatic cirrhosis Ascites presence: without ascites Qualified Code(s): K74.60 - Unspecified cirrhosis of liver Code(s): K74.60 - Unspecified cirrhosis of liver Status: Acute Plan GI bleed presented with melena stool GI evaluated and noted possible multiple sites from bleed beyond Esophageal varices, Given past imaging evidence of portal hypertension, portal gastropathy, enteropathy and colopathy On Octreotide, and PPI Thus, GI considering transfer to [facility] for TIPS possibly Liver cirrhosis Continue above care GI following Anemia hb 4.4, transfuse Hb 8.1 post transfusions monitor Possible lung mets CT Chest showed multiple bilateral pulmonary nodules suspicious for metastatic disease Chart review from past admission showed Oncology eval that noted that patient has nasopharynfeal and liver cancer adn following with Dr Feliciano at [place] continue follow up with Dr Feliciano on discharge Thrombocytopenia Plts 52 From liver cirrhosis monitor DVT prophylaxis on SCDs, no AC due to GI bleed monitor very closely Subjective Date/time seen: 10/09/24 18:33 Interval history: Comfortable at bedside GI considering Transfer to [facility] for TIPS Review of Systems Review of Systems: 12 systems were reviewed and are negativ e except for as per HPI. Exam Narrative: General: Chronically ill-appearing male in the semi-Conroy position in bed. Weight: 67.2 kg. HEENT: PERRL, EOMI. Sclera anicteric. Tacky mucous membranes. Neck: Supple. Respiratory: Mildly tachypneic but in no respiratory distress. Lungs are clear to auscultation. Cardiovascular: Regular rate and rhythm with S1-S2. Gastrointestinal: Abdomen is soft, nontender, and nondistended with positive bowel sounds. Skin: Warm and dry. Generalized pallor. Extremities: No cyanosis or clubbing. 1+ lower extremity edema bilaterally. No palpable knots or cords. Neurological: Alert. Cranial nerves 2-12 are grossly intact. No gross focal deficits to casual conversation. Psychiatric: Pleasant and cooperative with appropriate mood and affect. Seems to be a bit forgetful, differs many questions to his . Objective Data Vital Signs Vital Signs: Vital Signs - 24 hr 10/08/24 19:35 10/08/24 19:40 10/08/24 19:55 Temperature 97.4 F L 97.7 F Pulse Rate 97 75 63 Respiratory Rate 16 14 22 H Blood Pressure 109/73 109/73 112/76 Pulse Oximetry 99 99 100 Oxygen Delivery 10/08/24 20:33 10/08/24 20:51 10/08/24 21:18 Temperature 97.6 F Pulse Rate 70 70 70 Respiratory Rate 20 20 20 Blood Pressure 114/71 114/71 133/90 Pulse Oximetry 97 97 100 Oxygen Delivery 10/08/24 21:30 10/08/24 22:00 10/08/24 22:00 Temperature 98.1 F Pulse Rate 62 70 Respiratory Rate 22 H Blood Pressure 116/79 Pulse Oximetry 100 Oxygen Delivery Room Air 10/09/24 00:00 10/09/24 00:00 10/09/24 00:00 Temperature 97.6 F Pulse Rate 66 73 Respiratory Rate 20 Blood Pressure 127/67 Pulse Oximetry 99 Oxygen Delivery Room Air 10/09/24 02:00 10/09/24 04:00 10/09/24 04:00 Temperature Pulse Rate 70 66 Respiratory Rate Blood Pressure Pulse Oximetry Oxygen Delivery Room Air 10/09/24 04:00 10/09/24 06:00 10/09/24 07:57 Temperature 97.5 F L 97.6 F Pulse Rate 73 61 65 Respiratory Rate 20 20 Blood Pressure 109/66 109/77 Pulse Oximetry 100 100 Oxygen Delivery 10/09/24 08:00 10/09/24 08:58 10/09/24 10:00 Temperature Pulse Rate 81 63 60 Respiratory Rate Blood Pressure Pulse Oximetry Oxygen Delivery 10/09/24 11:37 10/09/24 12:00 10/09/24 14:00 Temperature 97.5 F L Pulse Rate 53 L 81 58 L Respiratory Rate 18 Blood Pressure 110/69 Pulse Oximetry 100 Oxygen Delivery 10/09/24 16:00 10/09/24 17:08 Temperature Pulse Rate 68 94 Respiratory Rate Blood Pressure 138/94 H Pulse Oximetry 94 Oxygen Delivery Intake/Output Intake/Output: Intake & Output 10/06/24 10/07/24 10/08/2410/09/25 23:59 23:59 23:59 23:59 Intake Total 2400.5 730.2 Output Total 3301 Balance 2400.5 -2570.8 Meds/Results Medications: Active Medications Generic Name Dose Route Start Last Admin Trade Name Freq PRN Reason Stop Dose Admin Acetaminophen 650 mg 10/08/24 22:57 Acetaminophen 325 Mg Tablet PO Q6H PRN pain Carvedilol 6.25 mg 10/08/24 23:00 10/09/24 08:58 Carvedilol 6.25 Mg Tablet PO 6.25 mg Q12HR OSCAR Administration Furosemide 20 mg 10/09/24 09:00 10/09/24 08:58 Furosemide 20 Mg Tablet PO 20 mg DAILY OSCAR Administration Hydroxyzine HCl 10 mg 10/08/24 23:02 10/08/24 23:15 Hydroxyzine Hcl 10 Mg Tablet PO 10 mg TID PRN Administration itching Octreotide Acetate 500 mcg/ 100 mls @ 10 mls/hr 10/08/24 16:15 10/09/24 10:27 Sodium Chloride IV CONT 50 mcg/hr .Q10H OSCAR 10 mls/hr Administration 50 MCG/HR Ceftriaxone Sodium 1 gm in 50 mls @ 100 mls/hr 10/09/24 16:00 10/09/24 17:07 Rocephin 1 Gm/Ns 50 Ml IVPB 100 mls/hr Q24H OSCAR Administration Pantoprazole Sodium 40 mg 10/09/24 09:00 10/09/24 08:58 Pantoprazole Sodium Iv 40 Mg Vial IV PUSH 40 mg Q12HR OSCAR Administration Prednisone 40 mg 10/09/24 09:30 10/09/24 10:15 Prednisone 20 Mg Tablet PO 40 mg DAILY@0800 OSCAR Administration Radiology Results: ITS Impressions Chest X-Ray 10/08/24 17:54 IMPRESSION: No acute cardiopulmonary pathology. Venous Doppler Study 10/09/24 16:05 IMPRESSION: 1. No deep venous thrombosis within the bilateral lower extremities, as detailed above. Labs Labs: Laboratory Results - last 24 hr 10/08/24 10/08/24 10/08/24 13:53 17:56 18:54 WBC RBC Hgb 4.7 L* D Hct 16.5 L* MCV MCH MCHC RDW Plt Count MPV Immature Gran % (Auto) Neut % (Auto) Lymph % (Auto) [place] % (Auto) Eos % (Auto) Baso % (Auto) Lymph # (Auto) [place] # (Auto) Eos # (Auto) Baso # (Auto) Abs Immat Gran (auto) Absolute Neuts (auto) Absolute Nucleated RBC Band Neutrophils % Nucleated RBC % Platelet Estimate % Immature Plt Fraction Anisocytosis Ovalocytes Schistocytes PT INR Sodium Potassium Chloride Carbon Dioxide Anion Gap BUN Creatinine Estim Creat Clear Calc Estimated GFR Glucose Calcium Magnesium Total Bilirubin AST ALT Alkaline Phosphatase Total Protein Albumin TSH (Reflex) Free T4 Total T3 Influenza A (RT-PCR) Negative Influenza B (RT-PCR) Negative RSV (RT-PCR) Negative SARS-CoV-2 RNA (RT-PCR) Negative Blood Type O Positive Antibody Screen Negative Crossmatch See Detail 10/08/24 10/09/24 10/09/24 22:48 02:31 04:27 WBC 3.5 L RBC 2.81 L Hgb 9.3 L D 8.2 L 8.1 L Hct 30.7 L 26.3 L 25.9 L MCV 92.2 MCH 28.8 MCHC 31.3 L RDW 15.3 H Plt Count 52 L MPV 10.4 Immature Gran % (Auto) 0.6 H Neut % (Auto) 82.9 H Lymph % (Auto) 9.0 L [place] % (Auto) 7.2 Eos % (Auto) 0.3 Baso % (Auto) 0.0 L Lymph # (Auto) 0.31 L [place] # (Auto) 0.3 Eos # (Auto) 0.0 Baso # (Auto) 0.0 Abs Immat Gran (auto) 0.02 Absolute Neuts (auto) 2.9 Absolute Nucleated RBC 0.000 Band Neutrophils % Not Reportable Nucleated RBC % 0.0 Platelet Estimate Decreased % Immature Plt Fraction 4.6 Anisocytosis 1+ Ovalocytes 1+ Schistocytes Rare PT INR Sodium Potassium Chloride Carbon Dioxide Anion Gap BUN Creatinine Estim Creat Clear Calc Estimated GFR Glucose Calcium Magnesium Total Bilirubin AST ALT Alkaline Phosphatase Total Protein Albumin TSH (Reflex) 0.170 L Free T4 0.86 Total T3 0.65 L Influenza A (RT-PCR) Influenza B (RT-PCR) RSV (RT-PCR) SARS-CoV-2 RNA (RT-PCR) Blood Type Antibody Screen Crossmatch 10/09/24 04:28 WBC RBC Hgb Hct MCV MCH MCHC RDW Plt Count MPV Immature Gran % (Auto) Neut % (Auto) Lymph % (Auto) [place] % (Auto) Eos % (Auto) Baso % (Auto) Lymph # (Auto) [place] # (Auto) Eos # (Auto) Baso # (Auto) Abs Immat Gran (auto) Absolute Neuts (auto) Absolute Nucleated RBC Band Neutrophils % Nucleated RBC % Platelet Estimate % Immature Plt Fraction Anisocytosis Ovalocytes Schistocytes PT 15.2 H INR 1.2 Sodium 131 L Potassium 4.4 Chloride 100 Carbon Dioxide 27 Anion Gap 4 BUN 24 H Creatinine 0.72 Estim Creat Clear Calc Not Reportable Estimated GFR > 60 Glucose 152 H Calcium 8.1 L Magnesium 2.0 Total Bilirubin 0.5 AST 22 ALT 25 Alkaline Phosphatase 61 Total Protein 5.0 L Albumin 2.7 L TSH (Reflex) Free T4 Total T3 Influenza A (RT-PCR) Influenza B (RT-PCR) RSV (RT-PCR) SARS-CoV-2 RNA (RT-PCR) Blood Type Antibody Screen Crossmatch Quality VTE Prophylaxis VTE prophylaxis: mechanical ordered
[2024-10-10] VITALS (21 sets, daily range): BP systolic 88–142; BP diastolic 58–95; PULSE 58–80; RESP 14–22; TEMP 36.1–36.5; O2SAT 95–100
[2024-10-10 04:02] LABS: Hematocrit 30.7 % (42.0-52.0); Hemoglobin 9.4 g/dL (14.0-18.0); Immature Granulocyte Absolute 0.02 K/mm3 (0.00-0.031); Immature Granulocyte Percent A 0.4 % (0-0.5); Immature Platelet Fraction Pct 4.2 % (0.9-11.2); Lymphocytes Absolute Auto 0.24 K/mm3 (0.9-3.2); Lymphocytes Percent Auto 5.2 % (18.3-44.2); Mean Corpuscular HGB Conc 30.6 g/dl (32-36); Mean Corpuscular Hemoglobin 28.6 pg (26-34); Mean Corpuscular Volume 93.3 fl (80-100); Monocytes Absolute Auto 0.3 K/mm3 (0.1-0.6); Monocytes Percent Auto 6.5 % (2.6-8.5); Neutrophils Percent Auto 87.9 % (45.5-73.1); Platelet Count Result 51 k/mm3 (150-375); Red Blood Count 3.29 M/mm3 (4.6-6.20); Red Cell Distribution Width 15.3 % (11.5-14.5); White Blood Count 4.6 K/mm3 (4.5-10.0)
[2024-10-10 04:11] LABS: Alanine Aminotransferase 26 U/L (6-50); Alkaline Phosphatase 66 U/L (38-126); Anion Gap 5 mmol/L (4-12); Aspartate Amino Transferase 24 U/L (17-59); Bilirubin,Total 0.7 mg/dL (0.2-1.3); Blood Urea Nitrogen 26 mg/dL (9-20); Calcium 8.5 mg/dL (8.4-10.2); Carbon Dioxide 29 mmol/L (22-30); Chloride 98 mmol/L (98-107); Estimated CRCL calculation 72 ml/min; Estimated Glomerular Filt Rate > 60; Glucose 113 mg/dL (65-110); Lactic Acid Reflex 1.6 mmol/L (0.7-2.0); Magnesium 2.1 mg/dL (1.6-2.3); Potassium 4.5 mmol/L (3.4-5.0); Sodium 132 mmol/L (137-145)
[2024-10-10 04:26] LABS: Anisocytosis 1+; Band Neutrophils Percent 0 % (0-6); Ovalocytes 1+; Platelet Estimate Decreased (Adequate); Schistocytes None Seen
[2024-10-10] MEDS: OCTREOTIDE ACETATE 500 MCG in SODIUM CHLORIDE 0.9% IV 99 ML 10 MCG IV CONT ×2 (05:24→18:42)
[2024-10-10] MEDS: predniSONE 20 MG TABLET 40 MG PO (09:02)
[2024-10-10] MEDS: PANTOPRAZOLE SODIUM IV 40 MG VIAL IV PUSH ×2 (09:02→19:47)
[2024-10-10] MEDS: carvediloL 6.25 MG TABLET PO ×2 (09:02→19:47)
[2024-10-10] MEDS: FUROSEMIDE 20 MG TABLET PO (09:03)
--- NOTE | 2024-10-10 12:49 | PC.NURSE ---
Patient off the floor for EGD at 1249
[2024-10-10] MEDS: LACTATED RINGERS 1,000 ML 150 ML IV CONT (12:59)
--- NOTE | 2024-10-10 13:29 | WPDANESEPPF ---
Anes - Initial Pre Proc Eval Procedure: Operation Date: 10/10/24 15:30 Proposed Procedures p Esophagogastroduodenoscopy - Juan Ramon Hawkins MD Date/Time: 10/10/24 13:29 Surgeon: Candida Montes MD Pre Op Diagnosis: Melena Patient Data Age: 69 Gender: M Height: 1.83 m Weight: 67 kg Last Vital Signs Temp 36.3 C L 10/10/24 12:55 Pulse 60 10/10/24 12:55 Resp 20 10/10/24 12:55 BP 121/71 10/10/24 12:55 Pulse Ox 95 10/10/24 12:55 O2 Del Method Room Air 10/10/24 12:55 Allergies Allergy/AdvReac Type Severity Reaction Status Date / Time No Known Drug Allergies Allergy Unknown Unknown Verified 09/27/24 13:21 Home Medications ?Medication ?Instructions ?Recorded ?Confirmed ?Type omeprazole 20 mg capsule,delayed 40 mg PO QID 03/02/21 10/08/24 History release acetaminophen 325 mg tablet (Pain 650 mg PO Q6H PRN pain 09/26/24 10/08/24 History Reliever (acetaminophen)) furosemide 20 mg tablet (Lasix) 20 mg PO DAILY 09/26/24 10/08/24 History hydroxyzine HCl 10 mg tablet 10 mg PO TID PRN itching 09/26/24 10/08/24 History loperamide 2 mg capsule 2 mg PO QID PRN loose stool 09/26/24 10/08/24 History (Anti-Diarrheal (loperamide)) ondansetron 8 mg disintegrating 8 mg PO TID 09/26/24 10/08/24 History tablet carvedilol 6.25 mg tablet (Coreg) 6.25 mg PO Q12HR #60 tabs 10/02/24 10/08/24 Rx prednisone 20 mg tablet 40 mg PO DAILY 10/09/24 10/09/24 History Laboratory Tests 10/10/24 03:55 WBC 4.6 K/mm3 (4.5-10.0) RBC 3.29 L M/mm3 (4.6-6.20) Hgb 9.4 L g/dL (14.0-18.0) Hct 30.7 L % (42.0-52.0) MCV 93.3 fl (80-100) MCH 28.6 pg (26-34) MCHC 30.6 L g/dl (32-36) RDW 15.3 H % (11.5-14.5) Plt Count 51 L k/mm3 (150-375) MPV 10.0 fl (7.4-10.4) Immature Gran % (Auto) 0.4 % (0-0.5) Neut % (Auto) 87.9 H % (45.5-73.1) Lymph % (Auto) 5.2 L % (18.3-44.2) [place] % (Auto) 6.5 % (2.6-8.5) Eos % (Auto) 0.0 % (0-4.4) Baso % (Auto) 0.0 L % (0.2-1.2) Lymph # (Auto) 0.24 L K/mm3 (0.9-3.2) [place] # (Auto) 0.3 K/mm3 (0.1-0.6) Eos # (Auto) 0.0 K/mm3 (0-0.3) Baso # (Auto) 0.0 K/mm3 (0.0-0.1) Abs Immat Gran (auto) 0.02 K/mm3 (0.00-0.031) Absolute Neuts (auto) 4.0 K/mm3 (1.3-6.7) Absolute Nucleated RBC 0.000 K/mm3 (0.0-0.012) Band Neutrophils % 0 % (0-6) Nucleated RBC % 0.0 % (0.0-0.2) Platelet Estimate Decreased (Adequate) % Immature Plt Fraction 4.2 % (0.9-11.2) Anisocytosis 1+ Ovalocytes 1+ Schistocytes None seen Sodium 132 L mmol/L (137-145) Potassium 4.5 mmol/L (3.4-5.0) Chloride 98 mmol/L (98-107) Carbon Dioxide 29 mmol/L (22-30) Anion Gap 5 mmol/L (4-12) BUN 26 H mg/dL (9-20) Creatinine 0.81 mg/dL (0.7-1.3) Estim Creat Clear Calc 72 ml/min Estimated GFR > 60 (59 - ) Glucose 113 H mg/dL (65-110) Lactic Acid 1.6 mmol/L (0.7-2.0) Calcium 8.5 mg/dL (8.4-10.2) Magnesium 2.1 mg/dL (1.6-2.3) Total Bilirubin 0.7 mg/dL (0.2-1.3) AST 24 U/L (17-59) ALT 26 U/L (6-50) Alkaline Phosphatase 66 U/L (38-126) Total Protein 6.0 L g/dL (6.3-8.2) Albumin 3.0 L g/dL (3.5-5.1) Patient hx anesthesia problems: none Family hx anesthesia problems: none Results Review: All pre-operative results and documents have been reviewed as part of the pre-operative evaluation. 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 [facility] Anemia Hepatitis C Liver cancer s/p chemo Alcohol abuse, in remission Cessation 15 years ago as of 2024 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 Esophageal varices ADHD GI bleed Surgical History Surgical History (Updated 10/08/24 @ 22:23 by Michelle Morin PA-C) History of esophagogastroduodenoscopy Social History Social History Social History: Surrogate medical decision maker: Sandra Coy, spouse. Code status: Full code. Smoking status: Never smoker Alcohol intake: former Substance use: current Substance use type: marijuana Other substance usage details: pt uses RSO oil for cancer tx Do You Feel Safe in your Home?: Yes Lack of Transportation: No Lack of Food: Never True Current Housing: I Have Housing Concerned About Future Housing: No Difficulty Paying Gas/Electric Bills: No Difficulty Paying for Meds: No Currently Unemployed: No Education: Trade/Vocational Certificate Difficulty w/ Childcare or Family Care: No Spiritual care concerns: No Anes - Eval Final PreProcedure Day of Procedure 10/10/24 13:29 Patient weight: normal Heart: regular rate and rhythm Lungs: decreased breath sounds Airway: Mallampati scale class II Neurological: alert and oriented Last oral intake: >/= 8 hours ASA classification: IV Emergent: no Anesthetic plan: proceed Anesthesia type and monitoring: general GIVS and standard monitoring Results Review: All pre-operative results and documents have been reviewed as part of the pre-operative evaluation. Informed Consent: The patient's anesthetic plan and its attendant risks and benefits were discussed with the patient/family/POA. Questions were solicited and answers provided to the satisfaction of the patient/family/POA.
--- NOTE | 2024-10-10 15:13 | PM.IMPN ---
Progress Note: A&P Assessment and Plan (1) Melena: Code(s): K92.1 - Melena Status: Acute (2) Acute blood loss anemia: Code(s): D62 - Acute posthemorrhagic anemia Status: Acute (3) Thrombocytopenia: Code(s): D69.6 - Thrombocytopenia, unspecified Status: Acute (4) Cirrhosis: Qualifiers: Hepatic cirrhosis type: unspecified hepatic cirrhosis Ascites presence: without ascites Qualified Code(s): K74.60 - Unspecified cirrhosis of liver Code(s): K74.60 - Unspecified cirrhosis of liver Status: Acute Plan GI bleed presented with melena stool GI evaluated and noted possible multiple sites from bleed beyond Esophageal varices, Given past imaging evidence of portal hypertension, portal gastropathy, enteropathy and colopathy On Octreotide, and PPI For EGD today per GI Liver cirrhosis Continue above care GI following Anemia hb 4.4, transfuse Hb 8.1 post transfusions monitor Possible lung mets CT Chest showed multiple bilateral pulmonary nodules suspicious for metastatic disease Chart review from past admission showed Oncology eval that noted that patient has nasopharynfeal and liver cancer adn following with Dr Feliciano at [place] continue follow up with Dr Feliciano on discharge Thrombocytopenia Plts 51 From liver cirrhosis monitor DVT prophylaxis on SCDs, no AC due to GI bleed monitor very closely Subjective Date/time seen: 10/10/24 15:13 Interval history: Comfortable at bedside For EGD this afternoon Review of Systems Review of Systems: 12 systems were reviewed and are negative except for as per HPI. Exam Narrative: General: Chronically ill-appearing male in the semi-Conroy position in bed. Weight: 67.2 kg. HEENT: PERRL, EOMI. Sclera anicteric. Tacky mucous membranes. Neck: Supple. Respiratory: Mildly tachypneic but in no respiratory distress. Lungs are clear to auscultation. Cardiovascular: Regular rate and rhythm with S1-S2. Gastrointestinal: Abdomen is soft, nontender, and nondistended with positive bowel sounds. Skin: Warm and dry. Generalized pallor. Extremities: No cyanosis or clubbing. 1+ lower extremity edema bilaterally. No palpable knots or cords. Neurological: Alert. Cranial nerves 2-12 are grossly intact. No gross focal deficits to casual conversation. Psychiatric: Pleasant and cooperative with appropriate mood and affect. Seems to be a bit forgetful, differs many questions to his . Objective Data Vital Signs Vital Signs: Vital Signs - 24 hr 10/09/24 16:00 10/09/24 17:08 10/09/24 18:00 Temperature Pulse Rate 68 94 66 Respiratory Rate Blood Pressure 138/94 H Pulse Oximetry 94 Oxygen Delivery 10/09/24 20:00 10/09/24 20:00 10/09/24 20:00 Temperature 97.6 F Pulse Rate 67 70 Respiratory Rate 18 22 H Blood Pressure 115/66 107/59 L Pulse Oximetry 96 100 Oxygen Delivery Room Air 10/09/24 20:00 10/09/24 20:07 10/09/24 22:00 Temperature Pulse Rate 65 69 77 Respiratory Rate Blood Pressure Pulse Oximetry Oxygen Delivery 10/09/24 23:26 10/10/24 00:00 10/10/24 02:00 Temperature Pulse Rate 70 63 61 Respiratory Rate Blood Pressure Pulse Oximetry 100 Oxygen Delivery 10/10/24 04:00 10/10/24 04:00 10/10/24 06:00 Temperature 97.7 F Pulse Rate 61 58 L 59 L Respiratory Rate 18 Blood Pressure 126/82 Pulse Oximetry 100 Oxygen Delivery 10/10/24 08:00 10/10/24 08:07 10/10/24 08:56 Temperature 97.4 F L Pulse Rate 60 60 Respiratory Rate 22 H Blood Pressure 117/95 H Pulse Oximetry 100 100 Oxygen Delivery Room Air 10/10/24 09:02 10/10/24 10:00 10/10/24 12:00 Temperature Pulse Rate 59 L 61 58 L Respiratory Rate Blood Pressure Pulse Oximetry Oxygen Delivery 10/10/24 12:55 10/10/24 14:46 10/10/24 14:56 Temperature 97.4 F L Pulse Rate 60 72 75 Respiratory Rate 20 18 19 Blood Pressure 121/71 88/58 L 101/63 Pulse Oximetry 95 98 97 Oxygen Delivery Room Air Room Air Room Air 10/10/24 15:06 Temperature Pulse Rate 63 Respiratory Rate 14 Blood Pressure 122/74 Pulse Oximetry 99 Oxygen Delivery Room Air Intake/Output Intake/Output: Intake & Output 10/07/24 10/08/24 10/09/24 10/10/24 23:59 23:59 23:59 23:59 Intake Total 2400.5 1066.7 355.5 Output Total 3501 1630 Balance 2400.5 -2434.3 -1274.5 Meds/Results Medications: Active Medications Generic Name Dose Route Start Last Admin Trade Name Freq PRN Reason Stop Dose Admin Acetaminophen 650 mg 10/08/24 22:57 Acetaminophen 325 Mg Tablet PO Q6H PRN pain Carvedilol 6.25 mg 10/08/24 23:00 10/10/24 09:02 Carvedilol 6.25 Mg Tablet PO 6.25 mg Q12HR OSCAR Administration Hydroxyzine HCl 10 mg 10/08/24 23:02 10/08/24 23:15 Hydroxyzine Hcl 10 Mg Tablet PO 10 mg TID PRN Administration itching Octreotide Acetate 500 mcg/ 100 mls @ 10 mls/hr 10/08/24 16:15 10/10/24 05:24 Sodium Chloride IV CONT 50 mcg/hr .Q10H OSCAR 10 mls/hr Administration 50 MCG/HR Ceftriaxone Sodium 1 gm in 50 mls @ 100 mls/hr 10/09/24 16:00 10/09/24 17:07 Rocephin 1 Gm/Ns 50 Ml IVPB 100 mls/hr Q24H OSCAR Administration Lactated Ringer's 1,000 mls @ 150 mls/hr 10/10/24 12:55 10/10/24 15:09 Lr - Lactated Ringers Iv IV CONT Infused .Q6H40M OSCAR Infusion Pantoprazole Sodium 40 mg 10/09/24 09:00 10/10/24 09:02 Pantoprazole Sodium Iv 40 Mg Vial IV PUSH 40 mg Q12HR OSCAR Administration Prednisone 40 mg 10/09/24 09:30 10/10/24 09:02 Prednisone 20 Mg Tablet PO 40 mg DAILY@0800 OSCAR Administration Radiology Results: ITS Impressions Chest X-Ray 10/08/24 17:54 IMPRESSION: No acute cardiopulmonary pathology. Venous Doppler Study 10/09/24 16:05 IMPRESSION: 1. No deep venous thrombosis within the bilateral lower extremities, as detailed above. Labs Labs: Laboratory Results - last 24 hr 10/10/24 03:55 WBC 4.6 RBC 3.29 L Hgb 9.4 L Hct 30.7 L MCV 93.3 MCH 28.6 MCHC 30.6 L RDW 15.3 H Plt Count 51 L MPV 10.0 Immature Gran % (Auto) 0.4 Neut % (Auto) 87.9 H Lymph % (Auto) 5.2 L [place] % (Auto) 6.5 Eos % (Auto) 0.0 Baso % (Auto) 0.0 L Lymph # (Auto) 0.24 L [place] # (Auto) 0.3 Eos # (Auto) 0.0 Baso # (Auto) 0.0 Abs Immat Gran (auto) 0.02 Absolute Neuts (auto) 4.0 Absolute Nucleated RBC 0.000 Band Neutrophils % 0 Nucleated RBC % 0.0 Platelet Estimate Decreased % Immature Plt Fraction 4.2 Anisocytosis 1+ Ovalocytes 1+ Schistocytes None seen Sodium 132 L Potassium 4.5 Chloride 98 Carbon Dioxide 29 Anion Gap 5 BUN 26 H Creatinine 0.81 Estim Creat Clear Calc 72 Estimated GFR > 60 Glucose 113 H Lactic Acid 1.6 Calcium 8.5 Magnesium 2.1 Total Bilirubin 0.7 AST 24 ALT 26 Alkaline Phosphatase 66 Total Protein 6.0 L Albumin 3.0 L Quality VTE Prophylaxis VTE prophylaxis: mechanical ordered
--- NOTE | 2024-10-10 17:01 | WPDGIPROGNO ---
Progress Note: A&P Assessment and Plan (1) Cirrhosis: Qualifiers: Hepatic cirrhosis type: unspecified hepatic cirrhosis Ascites presence: without ascites Qualified Code(s): K74.60 - Unspecified cirrhosis of liver Code(s): K74.60 - Unspecified cirrhosis of liver Status: Acute (2) GI bleed: Qualifiers: GI bleed type/associated pathology: unspecified gastrointestinal hemorrhage type Qualified Code(s): K92.2 - Gastrointestinal hemorrhage, unspecified Code(s): K92.2 - Gastrointestinal hemorrhage, unspecified Status: Acute Assessment and Plan: Endoscopy revealed no active bleeding, but findings of zelaya red spots on the distal portions of two variceal columns indicated recent hemorrhage. Three rubber bands were placed for variceal ligation. The patient will continue on octreotide infusion overnight and, if he remains hemodynamically stable, will be discharged tomorrow with a prescription for carvedilol 6.25 mg once daily. The patient noted that a previous attempt at carvedilol 6.25 mg twice daily resulted in symptomatic bradycardia with heart rates below 50 beats per minute, impacting his ability to perform daily activities. He will resume care with his parking regulation enforcement officer at the [facility] in [place]. In my opinion, the patient is a suitable candidate for TIPS to prevent future variceal hemorrhage. While his hepatic synthetic function is reasonably preserved, he has significant portal hypertension. (3) Cirrhosis of liver: Code(s): K74.60 - Unspecified cirrhosis of liver Status: Acute Subjective Date/time seen: 10/10/24 17:01 Interval history: Please see EGD report. The patient is hemodynamically stable and not having active bleeding. This morning he had a normal color bowel movement. Exam Narrative: Abdomen: Soft, nontender, nondistended, no masses. Rest of the exam withi Objective Data Vital Signs Vital Signs: Vital Signs - 24 hr 10/09/24 17:08 10/09/24 18:00 10/09/24 20:00 Temperature 97.6 F Pulse Rate 94 66 67 Respiratory Rate 18 Blood Pressure 138/94 H 115/66 Pulse Oximetry 94 96 Oxygen Delivery 10/09/24 20:00 10/09/24 20:00 10/09/24 20:00 Temperature Pulse Rate 70 65 Respiratory Rate 22 H Blood Pressure 107/59 L Pulse Oximetry 100 Oxygen Delivery Room Air 10/09/24 20:07 10/09/24 22:00 10/09/24 23:26 Temperature Pulse Rate 69 77 70 Respiratory Rate Blood Pressure Pulse Oximetry 100 Oxygen Delivery 10/10/24 00:00 10/10/24 02:00 10/10/24 04:00 Temperature 97.7 F Pulse Rate 63 61 61 Respiratory Rate 18 Blood Pressure 126/82 Pulse Oximetry 100 Oxygen Delivery 10/10/24 04:00 10/10/24 06:00 10/10/24 08:00 Temperature Pulse Rate 58 L 59 L 60 Respiratory Rate Blood Pressure Pulse Oximetry Oxygen Delivery 10/10/24 08:07 10/10/24 08:56 10/10/24 09:02 Temperature 97.4 F L Pulse Rate 60 59 L Respiratory Rate 22 H Blood Pressure 117/95 H Pulse Oximetry 100 100 Oxygen Delivery Room Air 10/10/24 10:00 10/10/24 12:00 10/10/24 12:55 Temperature 97.4 F L Pulse Rate 61 58 L 60 Respiratory Rate 20 Blood Pressure 121/71 Pulse Oximetry 95 Oxygen Delivery Room Air 10/10/24 14:46 10/10/24 14:56 10/10/24 15:06 Temperature Pulse Rate 72 75 63 Respiratory Rate 18 19 14 Blood Pressure 88/58 L 101/63 122/74 Pulse Oximetry 98 97 99 Oxygen Delivery Room Air Room Air Room Air 10/10/24 16:00 10/10/24 16:23 Temperature 97.5 F L Pulse Rate 59 L 69 Respiratory Rate 20 Blood Pressure 142/86 H Pulse Oximetry 99 Oxygen Delivery Intake/Output Intake/Output: Intake & Output 10/07/24 10/08/24 10/09/24 10/10/24 23:59 23:59 23:59 23:59 Intake Total 2400.5 1116.7 355.5 Output Total 3501 1630 Balance 2400.5 -2384.3 -1274.5 Meds/Results Medications: Active Medications Generic Name Dose Route Start Last Admin Trade Name Freq PRN Reason Stop Dose Admin Acetaminophen 650 mg 10/08/24 22:57 Acetaminophen 325 Mg Tablet PO Q6H PRN pain Carvedilol 6.25 mg 10/08/24 23:00 10/10/24 09:02 Carvedilol 6.25 Mg Tablet PO 6.25 mg Q12HR OSCAR Administration Hydroxyzine HCl 10 mg 10/08/24 23:02 10/08/24 23:15 Hydroxyzine Hcl 10 Mg Tablet PO 10 mg TID PRN Administration itching Octreotide Acetate 500 mcg/ 100 mls @ 10 mls/hr 10/08/24 16:15 10/10/24 05:24 Sodium Chloride IV CONT 50 mcg/hr .Q10H OSCAR 10 mls/hr Administration 50 MCG/HR Ceftriaxone Sodium 1 gm in 50 mls @ 100 mls/hr 10/09/24 16:00 10/10/24 15:32 Rocephin 1 Gm/Ns 50 Ml IVPB 100 mls/hr Q24H OSCAR Administration Pantoprazole Sodium 40 mg 10/09/24 09:00 10/10/24 09:02 Pantoprazole Sodium Iv 40 Mg Vial IV PUSH 40 mg Q12HR OSCAR Administration Prednisone 40 mg 10/09/24 09:30 10/10/24 09:02 Prednisone 20 Mg Tablet PO 40 mg DAILY@0800 OSCAR Administration Radiology Results: ITS Impressions Chest X-Ray 10/08/24 17:54 IMPRESSION: No acute cardiopulmonary pathology. Venous Doppler Study 10/09/24 16:05 IMPRESSION: 1. No deep venous thrombosis within the bilateral lower extremities, as detailed above. Labs Labs: Laboratory Results - last 24 hr 10/10/24 03:55 WBC 4.6 RBC 3.29 L Hgb 9.4 L Hct 30.7 L MCV 93.3 MCH 28.6 MCHC 30.6 L RDW 15.3 H Plt Count 51 L MPV 10.0 Immature Gran % (Auto) 0.4 Neut % (Auto) 87.9 H Lymph % (Auto) 5.2 L [place] % (Auto) 6.5 Eos % (Auto) 0.0 Baso % (Auto) 0.0 L Lymph # (Auto) 0.24 L [place] # (Auto) 0.3 Eos # (Auto) 0.0 Baso # (Auto) 0.0 Abs Immat Gran (auto) 0.02 Absolute Neuts (auto) 4.0 Absolute Nucleated RBC 0.000 Band Neutrophils % 0 Nucleated RBC % 0.0 Platelet Estimate Decreased % Immature Plt Fraction 4.2 Anisocytosis 1+ Ovalocytes 1+ Schistocytes None seen Sodium 132 L Potassium 4.5 Chloride 98 Carbon Dioxide 29 Anion Gap 5 BUN 26 H Creatinine 0.81 Estim Creat Clear Calc 72 Estimated GFR > 60 Glucose 113 H Lactic Acid 1.6 Calcium 8.5 Magnesium 2.1 Total Bilirubin 0.7 AST 24 ALT 26 Alkaline Phosphatase 66 Total Protein 6.0 L Albumin 3.0 L
[2024-10-10] MEDS: hydrOXYzine HCL 10 MG TABLET PO (19:47)
[2024-10-11] VITALS (7 sets, daily range): BP systolic 125–135; BP diastolic 75–80; PULSE 48–64; RESP 20; TEMP 36.4; O2SAT 97–99
[2024-10-11] MEDS: OCTREOTIDE ACETATE 500 MCG in SODIUM CHLORIDE 0.9% IV 99 ML 10 MCG IV CONT (02:00)
[2024-10-11 04:17] LABS: Hematocrit 33.3 % (42.0-52.0); Hemoglobin 10.4 g/dL (14.0-18.0); Immature Granulocyte Absolute 0.04 K/mm3 (0.00-0.031); Immature Granulocyte Percent A 0.7 % (0-0.5); Immature Platelet Fraction Pct 4.3 % (0.9-11.2); Lymphocytes Absolute Auto 0.31 K/mm3 (0.9-3.2); Lymphocytes Percent Auto 5.4 % (18.3-44.2); Mean Corpuscular HGB Conc 31.2 g/dl (32-36); Mean Corpuscular Hemoglobin 28.8 pg (26-34); Mean Corpuscular Volume 92.2 fl (80-100); Monocytes Absolute Auto 0.3 K/mm3 (0.1-0.6); Monocytes Percent Auto 5.2 % (2.6-8.5); Neutrophils Absolute Auto 5.1 K/mm3 (1.3-6.7); Neutrophils Percent Auto 88.7 % (45.5-73.1); Platelet Count Result 62 k/mm3 (150-375); Red Blood Count 3.61 M/mm3 (4.6-6.20); Red Cell Distribution Width 15.2 % (11.5-14.5); White Blood Count 5.8 K/mm3 (4.5-10.0)
[2024-10-11 04:33] LABS: Alanine Aminotransferase 30 U/L (6-50); Albumin Level 3.3 g/dL (3.5-5.1); Alkaline Phosphatase 82 U/L (38-126); Anion Gap 6 mmol/L (4-12); Aspartate Amino Transferase 27 U/L (17-59); Bilirubin,Total 1.2 mg/dL (0.2-1.3); Blood Urea Nitrogen 26 mg/dL (9-20); Calcium 8.6 mg/dL (8.4-10.2); Carbon Dioxide 29 mmol/L (22-30); Chloride 96 mmol/L (98-107); Estimated CRCL calculation 63 ml/min; Estimated Glomerular Filt Rate > 60; Glucose 142 mg/dL (65-110); Magnesium 2.2 mg/dL (1.6-2.3); Potassium 4.6 mmol/L (3.4-5.0); Sodium 131 mmol/L (137-145)
[2024-10-11 04:45] LABS: Platelet Estimate Decreased (Adequate)
[2024-10-11 04:46] LABS: Anisocytosis 1+; Ovalocytes 1+; Schistocytes None Seen
[2024-10-11] MEDS: predniSONE 20 MG TABLET 40 MG PO (08:32)
[2024-10-11] MEDS: carvediloL 6.25 MG TABLET PO (08:32)
[2024-10-11] MEDS: PANTOPRAZOLE SODIUM IV 40 MG VIAL IV PUSH (08:32)
--- NOTE | 2024-10-11 08:51 | WPDGIPROGNO ---
Progress Note: A&P Assessment and Plan (1) Cirrhosis: Qualifiers: Hepatic cirrhosis type: unspecified hepatic cirrhosis Ascites presence: without ascites Qualified Code(s): K74.60 - Unspecified cirrhosis of liver Code(s): K74.60 - Unspecified cirrhosis of liver Status: Acute Assessment and Plan: Patient status post variceal ligation x3 yesterday. Tolerated well. No further evidence of GI bleeding. He will be discharged home with carvedilol 6.25 mg q.h.s.. Of note, the patient did not tolerate the full dose of 6.25 b.i.d.. Because of bradycardia. He states he will seek GI consultation immediately at the [facility] in [place] where he is usually evaluated. Again, I consider he is a good candidate for TIPS placement to decrease chances of recurrent bleeding. (2) GI bleed: Qualifiers: GI bleed type/associated pathology: unspecified gastrointestinal hemorrhage type Qualified Code(s): K92.2 - Gastrointestinal hemorrhage, unspecified Code(s): K92.2 - Gastrointestinal hemorrhage, unspecified Status: Acute Subjective Date/time seen: 10/11/24 08:51 Interval history: Patient did not have any complaints. Hemodynamically stable. Exam Narrative: Abdomen: Soft, nontender, nondistended, no masses. Rest of the exam withi Objective Data Vital Signs Vital Signs: Vital Signs - 24 hr 10/10/24 08:56 10/10/24 09:02 10/10/24 10:00 Temperature Pulse Rate 59 L 61 Respiratory Rate Blood Pressure Pulse Oximetry 100 Oxygen Delivery Room Air 10/10/24 12:00 10/10/24 12:55 10/10/24 14:46 Temperature 97.4 F L Pulse Rate 58 L 60 72 Respiratory Rate 20 18 Blood Pressure 121/71 88/58 L Pulse Oximetry 95 98 Oxygen Delivery Room Air Room Air 10/10/24 14:56 10/10/24 15:06 10/10/24 16:00 Temperature Pulse Rate 75 63 59 L Respiratory Rate 19 14 Blood Pressure 101/63 122/74 Pulse Oximetry 97 99 Oxygen Delivery Room Air Room Air 10/10/24 16:23 10/10/24 18:00 10/10/24 19:47 Temperature 97.5 F L Pulse Rate 69 80 76 Respiratory Rate 20 Blood Pressure 142/86 H Pulse Oximetry 99 Oxygen Delivery 10/10/24 19:48 10/10/24 20:00 10/10/24 20:00 Temperature 97 F L Pulse Rate 60 62 Respiratory Rate 20 Blood Pressure 130/85 Pulse Oximetry 95 Oxygen Delivery Room Air 10/10/24 23:33 10/11/24 00:00 10/11/24 03:32 Temperature 97.7 F 97.6 F Pulse Rate 62 61 58 L Respiratory Rate 20 20 Blood Pressure 125/80 Pulse Oximetry 96 99 Oxygen Delivery 10/11/24 04:00 10/11/24 07:56 10/11/24 08:32 Temperature 97.6 F Pulse Rate 60 48 L 62 Respiratory Rate 20 Blood Pressure 135/75 Pulse Oximetry 97 Oxygen Delivery Intake/Output Intake/Output: Intake & Output 10/08/24 10/09/24 10/10/24 10/11/24 23:59 23:59 23:59 23:59 Intake Total 2400.5 1116.7 1045.5 313 Output Total 3501 2630 501 Balance 2400.5 -2384.3 -1584.5 -188 Meds/Results Medications: Active Medications Generic Name Dose Route Start Last Admin Trade Name Freq PRN Reason Stop Dose Admin Acetaminophen 650 mg 10/08/24 22:57 Acetaminophen 325 Mg Tablet PO Q6H PRN pain Carvedilol 6.25 mg 10/08/24 23:00 10/11/24 08:32 Carvedilol 6.25 Mg Tablet PO 6.25 mg Q12HR OSCAR Administration Hydroxyzine HCl 10 mg 10/08/24 23:02 10/10/24 19:47 Hydroxyzine Hcl 10 Mg Tablet PO 10 mg TID PRN Administration itching Ceftriaxone Sodium 1 gm in 50 mls @ 100 mls/hr 10/09/24 16:00 10/10/24 15:32 Rocephin 1 Gm/Ns 50 Ml IVPB 100 mls/hr Q24H OSCAR Administration Pantoprazole Sodium 40 mg 10/09/24 09:00 10/11/24 08:32 Pantoprazole Sodium Iv 40 Mg Vial IV PUSH 40 mg Q12HR OSCAR Administration Prednisone 40 mg 10/09/24 09:30 10/11/24 08:32 Prednisone 20 Mg Tablet PO 40 mg DAILY@0800 OSCAR Administration Radiology Results: ITS Impressions Chest X-Ray 10/08/24 17:54 IMPRESSION: No acute cardiopulmonary pathology. Venous Doppler Study 10/09/24 16:05 IMPRESSION: 1. No deep venous thrombosis within the bilateral lower extremities, as detailed above. Labs Labs: Laboratory Results - last 24 hr 10/11/24 03:55 WBC 5.8 RBC 3.61 L Hgb 10.4 L Hct 33.3 L MCV 92.2 MCH 28.8 MCHC 31.2 L RDW 15.2 H Plt Count 62 L MPV 11.0 H Immature Gran % (Auto) 0.7 H Neut % (Auto) 88.7 H Lymph % (Auto) 5.4 L [place] % (Auto) 5.2 Eos % (Auto) 0.0 Baso % (Auto) 0.0 L Lymph # (Auto) 0.31 L [place] # (Auto) 0.3 Eos # (Auto) 0.0 Baso # (Auto) 0.0 Abs Immat Gran (auto) 0.04 H Absolute Neuts (auto) 5.1 Absolute Nucleated RBC 0.000 Band Neutrophils % Not Reportable Nucleated RBC % 0.0 Platelet Estimate Decreased % Immature Plt Fraction 4.3 Anisocytosis 1+ Ovalocytes 1+ Schistocytes None seen Sodium 131 L Potassium 4.6 Chloride 96 L Carbon Dioxide 29 Anion Gap 6 BUN 26 H Creatinine 0.93 Estim Creat Clear Calc 63 Estimated GFR > 60 Glucose 142 H Calcium 8.6 Magnesium 2.2 Total Bilirubin 1.2 AST 27 ALT 30 Alkaline Phosphatase 82 Total Protein 6.0 L Albumin 3.3 L
--- NOTE | 2024-10-11 11:44 | PC.NURSE ---
On 10/11/24, the student, [Jyotsna Blankenship], provided care and completed [facility] documentation on this patient. I have reviewed the student's documentation and agree with the findings.
--- NOTE | 2024-10-11 13:34 | P.DS_ITS ---
DS: Admitting Diagnosis Discharge Date 10/11/24 Admitting Diagnosis Melena DS: Discharge Diagnosis Discharge Diagnosis (1) Cirrhosis of liver: Code(s): K74.60 - Unspecified cirrhosis of liver Status: Acute (2) GI bleed: Qualifiers: GI bleed type/associated pathology: unspecified gastrointestinal hemorrhage type Qualified Code(s): K92.2 - Gastrointestinal hemorrhage, unspecified Code(s): K92.2 - Gastrointestinal hemorrhage, unspecified Status: Acute DS: Summary Hospital Course Hospital Course: This is a pleasant 61-year-old male with history of hepatitis-C, liver cancer, cirrhosis, esophageal varices, and nasopharyngeal cancer who presented to the emergency department via private vehicle from home with complaints of dark stools. Patient was managed for blood loss anemia with Hb 4.7 and received 1 unit of pRBC and hb 10.4 today. GI was consulted for GI bleed eval, patient was placed on Octreotide and PPI, underwent EGD which showed gastritis and non bleeding esophageal varices. Decreased Coreg to qhs due to soft blood pressure and continue home PPI. Patient noted he has oncology at [place] for lung cancer. encouraged him to continue follow up. Thrombocytopenia from Liver cirrhosis and plts today is 62. F/u with PCP in 3-5 days F/u with GI as isntructed and follow up with oncology at [place] hospital Time Spent with Patient Time attestation: Total time spent providing and/or coordinating discharge services: DS: Data Data Completed and Pending Labs on day of discharge: Labs from last 24 hours 10/11/24 03:55 WBC 5.8 RBC 3.61 L Hgb 10.4 L Hct 33.3 L MCV 92.2 MCH 28.8 MCHC 31.2 L RDW 15.2 H Plt Count 62 L MPV 11.0 H Immature Gran % (Auto) 0.7 H Neut % (Auto) 88.7 H Lymph % (Auto) 5.4 L [place] % (Auto) 5.2 Eos % (Auto) 0.0 Baso % (Auto) 0.0 L Lymph # (Auto) 0.31 L [place] # (Auto) 0.3 Eos # (Auto) 0.0 Baso # (Auto) 0.0 Abs Immat Gran (auto) 0.04 H Absolute Neuts (auto) 5.1 Absolute Nucleated RBC 0.000 Band Neutrophils % Not Reportable Nucleated RBC % 0.0 Platelet Estimate Decreased % Immature Plt Fraction 4.3 Anisocytosis 1+ Ovalocytes 1+ Schistocytes None seen Sodium 131 L Potassium 4.6 Chloride 96 L Carbon Dioxide 29 Anion Gap 6 BUN 26 H Creatinine 0.93 Estim Creat Clear Calc 63 Estimated GFR > 60 Glucose 142 H Calcium 8.6 Magnesium 2.2 Total Bilirubin 1.2 AST 27 ALT 30 Alkaline Phosphatase 82 Total Protein 6.0 L Albumin 3.3 L Preliminary micro results at discharge 10/08/24 17:56 Blood Culture - Preliminary Blood 10/08/24 17:56 Blood Culture - Preliminary Blood Discharge Plan Discharge Attending physician on discharge: Candida Montes Discharging Clinician: Candida Montes Anticipated Discharge Date/Time: 10/11/24 13:31 Patient Disposition: Home Activity: as tolerated Diet: as tolerated Patient Instructions: Antibiotic Form Patient Language: Luxembourg[place] Stand Alone Forms: General Discharge Information Follow-up/Referrals: Derrell Barrow MD [Primary Care Provider] - (F/u with PCP in 3-5 days ) Juan Ramon Hawkins MD [Physician] - (F/u with GI as instructed ) Discharge Medications: New levofloxacin 750 mg tablet 750 mg PO DAILY 4 Days Qty: 4 0RF Continued omeprazole 20 mg capsule,delayed release(DR/EC) 40 mg PO QID furosemide [Lasix] 20 mg tablet 20 mg PO DAILY ondansetron 8 mg tablet,disintegrating 8 mg PO TID hydroxyzine HCl 10 mg tablet 10 mg PO TID PRN (Reason: itching) loperamide [Anti-Diarrheal (loperamide)] 2 mg capsule 2 mg PO QID PRN (Reason: loose stool) acetaminophen [Pain Reliever (acetaminophen)] 325 mg tablet 650 mg PO Q6H PRN (Reason: pain) prednisone 20 mg tablet 40 mg PO DAILY Rx Instructions: days 11-21 of therapy Changed carvedilol [Coreg] 6.25 mg Tablet 6.25 mg PO QHS Qty: 60 0RF Date of admission: 10/08/24 18:46 Primary Care Provider: Derrell Barrow Admitting Provider: Dalton Toth Attending physician on admission: Candida Montes Condition: Stable
== END 2024-10-11 14:59 | disposition home or self-care (01) | DRG 432 ==
LOC: ANHED 18:45 → ANHIMU 20:25
PROVIDERS: Emergency Medicine; Internal Medicine Gastroenterology; Physician Assistant; Admitting Provider General Practice; Emergency Provider Emergency Medicine; PCP Emergency Medicine; Visit Provider Internal Medicine
PROC: 0DJ08ZZ Inspection of Upper Intestinal Tract, Via Natural or Artificial Opening Endoscopic (ICD-10-PCS; principal; 2024-10-10 15:30)
DX: K70.30 Alcoholic cirrhosis of liver without ascites (principal); E43 Unspecified severe protein-calorie malnutrition; I85.11 Secondary esophageal varices with bleeding; D62 Acute posthemorrhagic anemia; K76.6 Portal hypertension; C78.02 Secondary malignant neoplasm of left lung; C78.01 Secondary malignant neoplasm of right lung; K31.89 Other diseases of stomach and duodenum; K29.30 Chronic superficial gastritis without bleeding; C11.9 Malignant neoplasm of nasopharynx, unspecified; D69.6 Thrombocytopenia, unspecified; B19.20 Unspecified viral hepatitis C without hepatic coma; F90.9 Attention-deficit hyperactivity disorder, unspecified type; F10.11 Alcohol abuse, in remission; Z20.822 Contact with and (suspected) exposure to COVID-19; Z85.05 Personal history of malignant neoplasm of liver; Z68.20 Body mass index [BMI] 20.0-20.9, adult
CPT/HCPCS: 36415; 36430; 36600; 71045; 80053; 82805; 83605; 83735; 84439; 84443; 84480; 85014; 85018; 85025; 85055; 85610; 85730; 86850; 86900; 86901; 86923; 87040; 87637; 93970; 96365; 96375; 99285; A9270; J0696; J2003; J2354; J2470; J2704; J7030; J7050; J7120; J7512; P9016